=== PATIENT | male | born 1940 | race Caucasian/White ===

== ENCOUNTER → 2017-11-23 08:37 | Outpatient (CLI) | payer MEDICARE, SELFPAY | PROVIDERS: Family Provider Internal Medicine; PCP Internal Medicine; Visit Provider Otolaryngology Otolaryngology/Facial Plastic Surgery | DX: J02.9 Acute pharyngitis, unspecified (principal) | CPT/HCPCS: 87070 ==

== ENCOUNTER → 2017-12-20 09:42 | Outpatient (CLI) | payer MEDICARE, SELFPAY ==
--- NOTE | 2017-12-20 09:47 | RAD_ITS ---
STUDY: X-RAY - CERVICAL SPINE REASON FOR EXAM: Male, 77 years old. Right shoulder pain. Inflammatory polyarthropathy. TECHNIQUE: 5 view(s) of the cervical spine were obtained including oblique views. COMPARISON: None FINDINGS: There are degenerative changes of the anterior atlantoaxial articulation. Normal odontoid process. There is straightening of the normal cervical lordosis. There is multi-level endplate spondylosis. There is multi-level degenerative disc disease with multilevel disc space narrowing. Normal visualized intervertebral neuroforamina. There are atherosclerotic vascular calcifications of the carotid arteries. RAD/Cerv Spine 4 or 5 Views IMPRESSION: Straightening of the normal cervical lordosis. Degenerative changes. Electronically Signed: Erwin Miller MD at 12:46 EDT Tel [phone], Service support ,
[2017-12-20 12:36] LABS: Absolute Lymphocyte Count 1.33 X10^3/ul (0.83-4.51); Absolute Neutrophil Count 3.1 X10^3/uL (2.0-7.7); Basophil# 0.04 X10^3/uL; Basophil% 0.8 % (0-1); Eosinophil# 0.14 X10^3/uL; Eosinophils% 2.7 % (0-5); Hematocrit 48.2 % (40-54); Hemoglobin 16.2 g/dl (13.0-16.5); Lymphocyte # 1.33 X10^3/ul (4.0); Lymphocyte % 25.5 % (19-41); Mean Corp Hgb Conc 33.6 g/gl (32-36); Mean Corpuscular Hgb 28.3 pg (27.0-32.0); Mean Corpuscular Volume 84.1 fL (80-94); Mean Platelet Vol. 10.8 fl (6.2-12.0); Monocyte# 0.57 X10^3/uL; Monocyte% 10.9 % (0-10); Neutrophil # 3.12 X10^3/uL (2.7-7.7); Neutrophil % 59.9 % (47-70); Platelet Count 215 K/mm3 (150-450); RBC Distribution Width SD 42.5 fl (35.1-43.9); Red Blood Count 5.73 M/mm3 (4.6-6.2); White Blood Count 5.2 K/mm3 (4.4-11.0)
[2017-12-20 12:41] LABS: POSITIVE COUNT NO; POSITIVE DIFFERENTIAL NO; POSITIVE MORPHOLOGY NO
[2017-12-20 12:44] LABS: Erythrocyte Sedimentation Rate 8 mm/hr (0-20)
[2017-12-20 13:03] LABS: AST(SGOT) 16 U/L (15-37); Alanine Aminotransfer ALT/SGPT 23 U/L (16-61); Albumin, Serum 3.6 g/dL (3.2-5.0); Alkaline Phosphatase 71 U/L (45-117); Anion Gap 9 (5-15); BUN 23 mg/dL (7-18); CRP < 2.90 mg/L (0.0-3.0); Calcium,Total 8.5 mg/dL (8.5-10.1); Chloride 109 mmol/L (98-107); Creatinine, Serum 1.44 mg/dL (0.70-1.30); EST Glomerular Filtration Rate 51 mL/min (>60); Est Glom Filt Rate - Afr Amer 61 mL/min (>60); Globulin 3.5 g/dL (2.2-4.2); Glucose 78 mg/dL (74-106); PSA,Total- Diagnostic 0.01 ng/mL (0.0-4.0); Potassium 4.4 mmol/L (3.5-5.1); Protein, Total 7.1 g/dL (6.4-8.2); Rheumatoid Factor < 10.0 IU/mL (<15); Sodium Level 142 mmol/L (136-145)
[2017-12-28 14:04] LABS: CCP IgG Antibodies 5 units (0-19); HLA B27 Negative (.)
== END ==
PROVIDERS: Family Provider Internal Medicine; PCP Internal Medicine; Visit Provider Internal Medicine Rheumatology
DX: M06.4 Inflammatory polyarthropathy (principal); M17.0 Bilateral primary osteoarthritis of knee; M47.897 Other spondylosis, lumbosacral region
CPT/HCPCS: 36415; 72050; 80053; 81374; 84153; 85025; 85652; 86140; 86200; 86431

== ENCOUNTER → 2017-12-24 09:12 | Outpatient (CLI) | payer MEDICARE, SELFPAY ==
--- NOTE | 2017-12-24 09:26 | RAD_ITS ---
STUDY: X-RAY - PELVIS REASON FOR EXAM: Male, 77 years old. History of inflammatory polyarthropathy. TECHNIQUE: One view of the pelvis was obtained. COMPARISON: None. FINDINGS: There is a non-specific bowel gas pattern. Metallic radiation seeds are seen within the prostate. Normal bilateral iliac wings, sacroiliac joints and visualized sacrum. Normal visualized bilateral superior and inferior pubic rami. Normal pubic symphysis. Normal ischial tuberosities. Normal visualized right femoral head. Normal right acetabulum. Normal right hip joint. Normal visualized left femoral head. Normal left acetabulum. Normal left hip joint. RAD/Pelvis 1 or 2 Views IMPRESSION: Metallic radiation seeds are seen within the prostate. Electronically Signed: Erwin Miller MD at 15:41 EDT Tel [phone], Service support ,
== END ==
PROVIDERS: Family Provider Internal Medicine; PCP Internal Medicine; Visit Provider Internal Medicine Rheumatology
DX: M06.4 Inflammatory polyarthropathy (principal); M17.0 Bilateral primary osteoarthritis of knee; M47.897 Other spondylosis, lumbosacral region
CPT/HCPCS: 72170

== ENCOUNTER → 2018-03-06 06:47 | Outpatient (CLI) | payer MEDICARE, SELFPAY ==
--- NOTE | 2018-03-06 06:51 | CT_ITS ---
STUDY: CT SOFT TISSUE NECK WITH CONTRAST REASON FOR EXAM: Male, 78 years old. Right pharyngeal pain, dysphagia, hx of tonsillectomy. RADIATION DOSAGE (If Supplied By Facility): CTDIvol = ( 19.44 ) mGy, DLP = ( 660.34 ) mGycm TECHNIQUE: The patient was scanned in a multi-detector CT scanner. High resolution transaxial imaging was performed following intravenous administration of 100 ml of Isovue 300 contrast material. Sagittal and coronal images were reconstructed. Individualized dose optimization techniques were used for this CT. COMPARISON: None. FINDINGS: Normal bilateral parotid glands. Normal bilateral supervisor of operations spaces. Normal bilateral parapharyngeal spaces. Normal bilateral carotid spaces. Normal bilateral sublingual and submandibular glands and spaces. Normal visualized nasopharynx. Normal retropharyngeal space. Normal perivertebral space. Normal visualized bilateral faucial tonsils. The visualized tongue, tongue base and oropharynx are normal. The visualized cervical lymph nodes (levels I-) are within normal size limits, and maintain normal morphology. There is no demonstrated solid or cystic mass lesion. There is no abnormal contrast enhancement. Normal epiglottis, bilateral vallecula and hypopharynx. The pre-epiglottic and paraglottic adipose spaces are normal. Normal visualized bilateral piriform sinuses, aryepiglottic folds, vocal cords, and arytenoid-cricoid articulations. Normal subglottic trachea. There is a 2.6 cm nodule within the right thyroid. Normal visualized pulmonary apices. Normal visualized paranasal sinuses. There is multilevel degenerative changes of the cervical spine. CT/Soft Tissue Neck WITH Contrast IMPRESSION: 2.6 cm right thyroid nodule. Further evaluation with sonography can be obtained. Otherwise no masses or lymphadenopathy. Electronically Signed: Otilio Leach MD at 12:21 EDT Tel , Service support ,
[2018-03-06 07:06] LABS: CREATININE FINGERSTICK 1.1 mg/dL (0.70-1.30); EGFR FINGERSTICK > 60.0000 mL/min (>60)
== END ==
PROVIDERS: Family Provider Internal Medicine; PCP Internal Medicine; Visit Provider Otolaryngology Otolaryngology/Facial Plastic Surgery
DX: R07.0 Pain in throat (principal); R13.10 Dysphagia, unspecified
CPT/HCPCS: 70491; Q9967

== ENCOUNTER → 2018-04-02 07:41 | Outpatient (CLI) | payer MEDICARE, SELFPAY | PROVIDERS: Family Provider Internal Medicine; PCP Internal Medicine; Visit Provider Otolaryngology Otolaryngology/Facial Plastic Surgery | DX: E04.1 Nontoxic single thyroid nodule (principal) | CPT/HCPCS: 76536 ==

== ENCOUNTER → 2018-10-09 13:40 | Outpatient (CLI) | payer MEDICARE, SELFPAY ==
--- NOTE | 2018-10-09 13:45 | RAD_ITS ---
STUDY: X-RAY - ABDOMEN/PELVIS REASON FOR EXAM: Male, 78 years old. Bowel habit changes TECHNIQUE: 4 AP views COMPARISON: None. FINDINGS: Normal visualized lung bases. Previous cholecystectomy There is an unremarkable bowel gas pattern. There is no demonstrated free abdominal air. The visualized liver, spleen and kidneys are grossly normal in size and morphology. Normal soft tissue structures. Normal visualized osseous structures. Brachytherapy beads noted in the prostate RAD/Abd Inc Decub and/or Erect IMPRESSION: No acute findings Electronically Signed: Juventino Martin MD at 17:29 EDT , Service support ,
== END ==
PROVIDERS: Family Provider Internal Medicine; PCP Internal Medicine; Visit Provider Internal Medicine
DX: R19.8 Other specified symptoms and signs involving the digestive system and abdomen (principal)
CPT/HCPCS: 74019

== ENCOUNTER → 2018-10-10 14:40 | Outpatient (CLI) | payer MEDICARE, SELFPAY ==
--- NOTE | 2018-10-10 15:01 | CT_ITS ---
STUDY: CT ABDOMEN AND PELVIS WITH CONTRAST REASON FOR EXAM: Male, 78 years old. Left lower quadrant pain. Prostate cancer. RADIATION DOSAGE (If Supplied By Facility): CTDIvol = ( 17.88 ) mGy, DLP = ( 1157.44 ) mGycm TECHNIQUE: Transaxial images were obtained from the dome of the diaphragm to the symphysis pubis without oral contrast. Isovue 300 100cc IV/Oral was administered. Sagittal and coronal images were reconstructed. Individualized dose optimization techniques were used for this CT. COMPARISON: 06/07/2006. FINDINGS: The visualized lung bases are unremarkable. The visualized portions of the heart are within normal limits. Normal shape and size of the liver. There is an enhancing 2.9 cm mass in the anterior segment of the right lobe most consistent with hemangioma. There are surgical clips in the gallbladder fossa consistent with a prior cholecystectomy. Normal spleen. Normal pancreas. Normal bilateral adrenal glands. No acute abnormalities of the kidneys. Stable left-sided parapelvic cysts. No stones. Symmetric contrast enhancement. No hydronephrosis. Evaluation of the GI tract is limited by absence of oral contrast. There is a small hiatal hernia. Cannot exclude stomach wall thickening. No dilated loops of bowel or evidence for obstruction. Cannot exclude segmental thickening of the wang of the small or large bowel. Cannot exclude enteritis or colitis. Moderate diffuse fecal retention. There is acute mid sigmoid diverticulitis, and there appears to be localized perforation and possible developing 2.8 cm abscess along the medial aspect of the sigmoid colon as seen on axial image 90 and coronal image 62. Appendix is absent. Tortuous aorta without aneurysm. Normal inferior vena cava. Normal retroperitoneum. Normal urinary bladder. 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 Bilateral small to moderate inguinal hernias are seen. These appear to have been previously repaired and have recurred. There are diffuse degenerative changes of the visualized lumbar spine. CT/Abdomen/Pelvis WITH Contrast IMPRESSION: Acute mid sigmoid diverticulitis with probable localized perforation and developing abscess. Electronically Signed: Manuel Penny MD at 18:38 EDT , Service support ,
[2018-10-10 17:16] LABS: CREATININE FINGERSTICK 1.4 mg/dL (0.70-1.30)
== END ==
PROVIDERS: Family Provider Internal Medicine; PCP Internal Medicine; Referring Provider Internal Medicine; Visit Provider Internal Medicine
DX: R10.84 Generalized abdominal pain (principal)
CPT/HCPCS: 74177; Q9967

== ENCOUNTER 2018-10-10 21:48 | Inpatient (IN) | payer MEDICARE, SELFPAY ==
[2018-10-10 21:49] VITALS: BP 182/90; PULSE 66; RESP 18; TEMP 36.4; O2SAT 96; BMI 31.4
--- NOTE | 2018-10-10 22:04 | EKG12_ITS ---
Test Reason : ABD PAIN Blood Pressure : / mmHG Vent. Rate : 066 BPM Atrial Rate : 066 BPM P-R Int : 186 ms QRS Dur : 094 ms QT Int : 416 ms P-R-T Axes : 041 004 064 degrees QTc Int : 436 ms Normal sinus rhythm Cannot rule out Inferior infarct , age undetermined Abnormal ECG Confirmed by TERRI ENGLAND ([id number]), editorial director GOLDEN RUGGIERO ([id number]) on 10/13/2018 4:34:06 PM Referred By: RENUKA Confirmed By:TERRI ENGLAND
[2018-10-10 22:17] VITALS: BP 159/81; PULSE 64; RESP 16; O2SAT 98
[2018-10-10 22:37] LABS: Absolute Lymphocyte Count 1.87 X10^3/ul (0.83-4.51); Basophil# 0.04 X10^3/uL; Basophil% 0.4 % (0-1); Eosinophil# 0.16 X10^3/uL; Eosinophils% 1.8 % (0-5); Hemoglobin 15.8 g/dl (13.0-16.5); Lymphocyte # 1.87 X10^3/ul (4.0); Lymphocyte % 20.6 % (19-41); Mean Corp Hgb Conc 33.6 g/gl (32-36); Mean Corpuscular Hgb 29.5 pg (27.0-32.0); Mean Corpuscular Volume 87.7 fL (80-94); Mean Platelet Vol. 10.1 fl (6.2-12.0); Monocyte# 1.05 X10^3/uL; Monocyte% 11.6 % (0-10); Neutrophil # 5.95 X10^3/uL (2.7-7.7); Neutrophil % 65.4 % (47-70); Platelet Count 187 K/mm3 (150-450); RBC Distribution Width CV 12.9 % (11.6-14.6); RBC Distribution Width SD 41.2 fl (35.1-43.9); Red Blood Count 5.36 M/mm3 (4.6-6.2); White Blood Count 9.1 K/mm3 (4.4-11.0)
[2018-10-10 22:38] LABS: POSITIVE COUNT NO; POSITIVE DIFFERENTIAL NO; POSITIVE MORPHOLOGY NO
[2018-10-10] MEDS: 0.9% Normal Saline 1,000 ML 1000 ML IV (22:42)
[2018-10-10 22:50] LABS: Anion Gap 5 (5-15); BUN 16 mg/dL (7-18); BUN/Creat Ratio 10.7 RATIO (10-20); Calcium,Total 8.2 mg/dL (8.5-10.1); Chloride 107 mmol/L (98-107); EST Glomerular Filtration Rate 48 mL/min (>60); Est Glom Filt Rate - Afr Amer 58 mL/min (>60); Estimated Creatinine Clearance 43.93 ml/min; Glucose 107 mg/dL (74-106); Sodium Level 138 mmol/L (136-145)
[2018-10-10 23:01] VITALS: BP 142/63; PULSE 59; RESP 18; O2SAT 98
[2018-10-10 23:03] VITALS: BP 146/83; PULSE 60; RESP 18; TEMP 37.3; O2SAT 96
--- NOTE | 2018-10-10 23:12 | ED.VIS.GEN ---
History of Present Illness Chief Complaint: Abd Pain Detail of Chief Complaint: CAT scan reveals diverticulitis, focal perforation and abscess formation Informant: Patient, Family Onset: Weeks - Onset of symptoms 3 weeks ago Context: Sudden Onset Timing: Continuous Quality: Left lower quadrant pain varies in quality and intensity Location: LLQ Current Severity: Mild Maximum Severity: Moderate Worsened by: Movement, walking Relieved by: Nothing in particular Associated Symptoms: Fever today and possible chills Narrative: Patient was seen by Dr. Jazlyn Richard had an outpatient CAT scan of the abdomen which reveals acute diverticulitis with focal perforation and formation of abscess. Patient denies history of diverticulosis or diverticulitis. Patient denies history of constipation. He denies any urologic symptoms. He denies cardiac respiratory symptoms. He reports no antibiotic allergies. CT of the abdomen and pelvis performed at [facility] and final interpretation is acute mid sigmoid diverticulitis with probable localized perforation and developing abscess. The developing abscess is 2.8 cm along the medial aspect of the sigmoid colon seen on axial image 90 and coronal image 62. The appendix is absent. Past Medical History - Allergies and Home Meds Allergies/Adverse Reactions: Allergies No Known Allergies Allergy (Verified 10/10/18 21:51) Primary Care Physician: Jazlyn Richard DO [Primary Care Provider] - Prior records reviewed: Yes Surgical History: no surgical history Lives: Spouse/ Significant Other Smoking Status: Former smoker Alcohol: Rare Review of Systems General: Reports: Chills, Fever, Subjective. Denies: Sweats, Weight loss Eyes: Denies: Visual changes - bilaterally, Blurred Vision - bilaterally, Diplopia ENT: Denies: Bilateral ear pain, Rhinorrhea, Sore throat Cardiovascular: Denies: Chest pain, Palpitations, Heart racing Respiratory: Reports: Paroxysmal nocturnal dyspnea. Denies: Dyspnea, Cough, Dyspnea on exertion, Orthopnea Gastrointestinal: Reports: Abdominal pain - Predominately left lower quadrant, Nausea. Denies: Vomiting, Diarrhea, Constipation, Melena Genitourinary: Denies: Dysuria, Hematuria, Frequency Musculoskeletal: Denies: Myalgias, Arthralgias, Back pain, Extremity Pain Neurological: Denies: Headache, Weakness, Numbness Endocrine: Denies: Polyuria, Polydipsia Hematologic: Denies: Easy bruising, Easy bleeding Physical Exam Vital Signs/Narrative: Vital Signs Temp Pulse Resp BP Pulse Ox 10/10/18 23:03 99.2 F H 60 18 146/83 H 96 10/10/18 23:01 59 L 18 142/63 H 98 10/10/18 22:17 64 16 159/81 H 98 10/10/18 21:49 97.6 F L 66 18 182/90 H 96 Inital Vital Signs reviewed: Yes General: Well nourished, Well developed, Obese, No Acute Distress Head: Normocephalic, Atraumatic Eyes: Perrl, EOMI. Negative for: Pale conjunctiva, Scleral icterus ENT: Moist mucous membranes, No rhinorrhea Neck: Supple, Nontender. Negative for: No lymphadenopathy, No JVD Cardiovascular: Regular rate, Regular rhythm, No murmurs, Normal S1, Normal S2 Respiratory: No distress, CTA bilaterally, Chest nontender, Decreased Air Movement Abdomen: Soft, Nontender, Nondistended, Normal bowel sounds, No masses Rectal: Deferred Back: Nontender, Normal Inspection Extremities: Nontender, No edema Skin: Normal color, No rash. Negative for: Cyanosis, Jaundice Neurological: Alert, Oriented x3, Cranial nerves II-XII grossly intact, Normal Strength, Normal Sensation, Normal Gait Psychological: Normal affect, Normal Mood Diagnostic/Tx/Re-eval Laboratory Results 10/10/18 10/10/18 22:30 22:30 WBC 9.1 RBC 5.36 Hgb 15.8 Hct 47.0 MCV 87.7 MCH 29.5 MCHC 33.6 RDW 12.9 RDW Differential 41.2 Plt Count 187 MPV 10.1 Immature Gran % (Auto) 0.200 Neut % (Auto) 65.4 Lymph % (Auto) 20.6 Elbert % (Auto) 11.6 H Eos % (Auto) 1.8 Baso % (Auto) 0.4 Absolute Neuts (auto) 6.0 Absolute Lymphs (auto) 1.87 Total Counted Not Reportable Sodium 138 Potassium 4.0 Chloride 107 Carbon Dioxide 26.0 Anion Gap 5 BUN 16 Creatinine 1.50 H Estim Creat Clear Calc 43.93 Est GFR (MDRD) Af Amer 58 L Est GFR (MDRD) Non-Af 48 L BUN/Creatinine Ratio 10.7 Glucose 107 H Calcium 8.2 L - Medical Decision Making After performing history and physical reviewing CT report and images patient was started on IV Zosyn since he has no allergies to antibiotics. Baseline blood work was obtained. He was made n.p.o. Case was discussed with Dr. Sarah Hsu. She requested admission to surgery since there is perforation. Family requested Dr. Anand Lundberg. Dr. Martin LESLIE was paged since she is on-call for the group. Patient will require admission for IV antibiotics. Dr. Sarah Hsu states she would help with orders if needed. ED Disposition - Plan for ED Patient: Disposition: Acute Care [facility] Diagnosis: Perforation of sigmoid colon due to diverticulitis Referrals: Jazlyn Richard DO [Primary Care Provider] -
--- NOTE | 2018-10-11 00:27 | PCM.HP.STD ---
History of Present Illness Date of Admission: 10/11/18 The patient is a 78 year old M presents the ER secondary to CT abdomen pelvis was done as an outpatient which showed sigmoid abscess about 2 cm due to diverticulitis. Patient states for about the last 3 weeks he has had abdominal pain, generalized occasionally he would have waves of sharp pain as 7/10. However no sharp pain today and states it was 5/10 and continues to be about the same. Patient denies any nausea and vomiting during this time. States she has had 2 bowel movements today which were soft. Patient states she has had a colonoscopy about 10 years ago which was negative per the patient done at [facility]. Denies any history of diverticular colitis in the past. Denies any fevers. 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 Surgical History: cholecystectomy, herniorrhaphy - RIH x 2 open, tonsillectomy, - - cardiac stent 10 years ago, colonoscopy about 10 years ago, seeds for prostate cancer, left achilles repair, nasal septum repair Psychiatric History: No pertinent psych hx Lives: Spouse/ Significant Other Smoking Status: Former smoker Alcohol: Rare - *Family History Maternal History Items: No pertinent history Review of Systems Constitutional: Denies: Chills HEENT: Denies: Difficulty Swallowing Cardiovascular: Denies: Chest Pain Respiratory: Reports: Shortness of Breath Gastrointestinal: Reports: Abdominal Pain Genitourinary: Denies: Dysuria Skin: Denies: Jaundice Neurological: Denies: Balance problems Psychiatric: Reports: Anxiety, Depression Hematologic/ Lymphatic: Reports: Easy Bruising, Easy Bleeding VTE Information - Inpt Only VTE Present on Admission: Yes VTE Mechan Device Prophylaxis: SCD's Patient Problems: Active and Suspected Problems Perforation of sigmoid colon due to diverticulitis (Acute) - Physical Exam General: Alert, Oriented x3, Cooperative, No apparent distress HEENT: Atraumatic Lungs: Normal air movement Cardiovascular: Regular rate Abdomen: Soft, Non-Distended, Tender - RUQ<RLQ<LLQ, no PS Extremities: No clubbing, No cyanosis, No edema Skin: No rashes Neurological: Cranial nerves II-XII grossly intact Psych/Mental Status: Normal Affect Vital Signs Temp Pulse Resp BP Pulse Ox 99.2 F H 60 18 146/83 H 96 10/10/18 23:03 10/10/18 23:03 10/10/18 23:03 10/10/18 23:03 10/10/18 23:03 Oxygen Delivery Method Room Air Weight: 225 lb 1.471 oz Body Mass Index (BMI) 31.4 Laboratory Tests Past 24 Hrs 10/10/18 10/10/18 22:30 22:30 WBC 9.1 RBC 5.36 Hgb 15.8 Hct 47.0 MCV 87.7 MCH 29.5 MCHC 33.6 RDW 12.9 RDW Differential 41.2 Plt Count 187 MPV 10.1 Immature Gran % (Auto) 0.200 Neut % (Auto) 65.4 Lymph % (Auto) 20.6 [place] % (Auto) 11.6 H Eos % (Auto) 1.8 Baso % (Auto) 0.4 Absolute Neuts (auto) 6.0 Absolute Lymphs (auto) 1.87 Total Counted Not Reportable Sodium 138 Potassium 4.0 Chloride 107 Carbon Dioxide 26.0 Anion Gap 5 BUN 16 Creatinine 1.50 H Estim Creat Clear Calc 43.93 Est GFR (MDRD) Af Amer 58 L Est GFR (MDRD) Non-Af 48 L BUN/Creatinine Ratio 10.7 Glucose 107 H Calcium 8.2 L Assessment/Plan All Active Problems Perforation of sigmoid colon due to diverticulitis (Acute) 78-year-old male with perforated diverticulitis with small abscess 1. N.p.o./IV fluids. We will plan to treat conservatively currently. Did discuss with patient that if his pain gets worse or increased white blood cell count which is currently normal, we would discuss surgery at that time. We also plan for a CAT scan in another few days to evaluate the abscess. 2. Continue Zosyn IV 3. Pain control Aria Guevara M.D. Pager: [phone] [facility] [address] [place] [address] [facility], [address] [place] [address] Office: [phone] Code Visit Inpatient E&M: 75006 Init Hosp L2
--- NOTE | 2018-10-11 00:30 | HP.PCM_ITS ---
History of Present Illness Date of Admission: 10/11/18 The patient is a 78 year old M presents the ER secondary to CT abdomen pelvis was done as an outpatient which showed sigmoid abscess about 2 cm due to diverticulitis. Patient states for about the last 3 weeks he has had abdominal pain, generalized occasionally he would have waves of sharp pain as 7/10. However no sharp pain today and states it was 5/10 and continues to be about the same. Patient denies any nausea and vomiting during this time. States she has had 2 bowel movements today which were soft. Patient states she has had a colonoscopy about 10 years ago which was negative per the patient done at [facility]. Denies any history of diverticular colitis in the past. Denies any fevers. 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 Surgical History: cholecystectomy, herniorrhaphy - RIH x 2 open, tonsillectomy, - - cardiac stent 10 years ago, colonoscopy about 10 years ago, seeds for prostate cancer, left achilles repair, nasal septum repair Psychiatric History: No pertinent psych hx Lives: Spouse/ Significant Other Smoking Status: Former smoker Alcohol: Rare - *Family History Maternal History Items: No pertinent history Review of Systems Constitutional: Denies: Chills HEENT: Denies: Difficulty Swallowing Cardiovascular: Denies: Chest Pain Respiratory: Reports: Shortness of Breath Gastrointestinal: Reports: Abdominal Pain Genitourinary: Denies: Dysuria Skin: Denies: Jaundice Neurological: Denies: Balance problems Psychiatric: Reports: Anxiety, Depression Hematologic/ Lymphatic: Reports: Easy Bruising, Easy Bleeding VTE Information - Inpt Only VTE Present on Admission: Yes VTE Mechan Device Prophylaxis: SCD's Patient Problems: Active and Suspected Problems Perforation of sigmoid colon due to diverticulitis (Acute) - Physical Exam General: Alert, Oriented x3, Cooperative, No apparent distress HEENT: Atraumatic Lungs: Normal air movement Cardiovascular: Regular rate Abdomen: Soft, Non-Distended, Tender - RUQ<RLQ<LLQ, no PS Extremities: No clubbing, No cyanosis, No edema Skin: No rashes Neurological: Cranial nerves II-XII grossly intact Psych/Mental Status: Normal Affect Vital Signs Temp Pulse Resp BP Pulse Ox 99.2 F H 60 18 146/83 H 96 10/10/18 23:03 10/10/18 23:03 10/10/18 23:03 10/10/18 23:03 10/10/18 23:03 Oxygen Delivery Method Room Air Weight: 225 lb 1.471 oz Body Mass Index (BMI) 31.4 Laboratory Tests Past 24 Hrs 10/10/18 10/10/18 22:30 22:30 WBC 9.1 RBC 5.36 Hgb 15.8 Hct 47.0 MCV 87.7 MCH 29.5 MCHC 33.6 RDW 12.9 RDW Differential 41.2 Plt Count 187 MPV 10.1 Immature Gran % (Auto) 0.200 Neut % (Auto) 65.4 Lymph % (Auto) 20.6 Sevier % (Auto) 11.6 H Eos % (Auto) 1.8 Baso % (Auto) 0.4 Absolute Neuts (auto) 6.0 Absolute Lymphs (auto) 1.87 Total Counted Not Reportable Sodium 138 Potassium 4.0 Chloride 107 Carbon Dioxide 26.0 Anion Gap 5 BUN 16 Creatinine 1.50 H Estim Creat Clear Calc 43.93 Est GFR (MDRD) Af Amer 58 L Est GFR (MDRD) Non-Af 48 L BUN/Creatinine Ratio 10.7 Glucose 107 H Calcium 8.2 L Assessment/Plan All Active Problems Perforation of sigmoid colon due to diverticulitis (Acute) 78-year-old male with perforated diverticulitis with small abscess 1. N.p.o./IV fluids. We will plan to treat conservatively currently. Did discuss with patient that if his pain gets worse or increased white blood cell count which is currently normal, we would discuss surgery at that time. We also plan for a CAT scan in another few days to evaluate the abscess. 2. Continue Zosyn IV 3. Pain control Aria Guevara M.D. Pager: [phone] [facility] [address] [address] [facility], [address] [place] [address] Office: [phone] Code Visit Inpatient E&M: 45324 Init Hosp L2
[2018-10-11 00:39] VITALS: BP 147/79; PULSE 57; RESP 16; RESP 17; TEMP 37.1; O2SAT 98
[2018-10-11 01:17] VITALS: BMI 31.0
[2018-10-11 01:50] VITALS: BP 140/72; PULSE 55; RESP 18; TEMP 36.8; O2SAT 98
[2018-10-11] MEDS: Lactated Ringers 1,000 ML 125 ML IV ×2 (01:56→17:46)
[2018-10-11 02:26] LABS: Bacteria 0 SEEN /hpf (None Seen); Mucous, Urine 0 SEEN /hpf (<or=2+); Red Blood Cells-Urine 0 SEEN /hpf (0-5); White Blood Cells 0 SEEN /hpf (0-5)
[2018-10-11 02:34] LABS: Color, Urine Straw (Yellow); Glucose, Dipstick Normal (Normal); Ketone-Dipstick Negative (Negative); Leukocyte Esterase-Dipstick Negative /ul (Negative); Nitrite-Dipstick Negative (Negative); Occult Blood-Urine Negative /ul (Negative); Protein-Dipstick Negative (Negative); Urine Bilirubin Dipstick Negative (Negative); Urine Clarity Clear (Clear); Urine Urobilinogen Normal (Normal)
[2018-10-11 02:40] LABS: Squamous Epithelial Cells - UA 0-5 SEEN /hpf (0-5)
[2018-10-11] MEDS: Piperacil/Tazobactam 3.375 GM/50 ML ML IV (05:56)
[2018-10-11 08:00] VITALS: BP 121/72; PULSE 55; RESP 16; TEMP 36.6; O2SAT 97
[2018-10-11 08:08] LABS: Absolute Lymphocyte Count 1.75 X10^3/ul (0.83-4.51); Absolute Neutrophil Count 5.1 X10^3/uL (2.0-7.7); Basophil# 0.03 X10^3/uL; Basophil% 0.4 % (0-1); Eosinophil# 0.16 X10^3/uL; Hematocrit 42.8 % (40-54); Hemoglobin 14.1 g/dl (13.0-16.5); Lymphocyte # 1.75 X10^3/ul (4.0); Lymphocyte % 21.9 % (19-41); Mean Corp Hgb Conc 32.9 g/gl (32-36); Mean Corpuscular Volume 88.1 fL (80-94); Mean Platelet Vol. 10.3 fl (6.2-12.0); Monocyte# 0.96 X10^3/uL; Neutrophil # 5.07 X10^3/uL (2.7-7.7); Neutrophil % 63.4 % (47-70); Platelet Count 192 K/mm3 (150-450); RBC Distribution Width CV 12.8 % (11.6-14.6); RBC Distribution Width SD 41.1 fl (35.1-43.9); Red Blood Count 4.86 M/mm3 (4.6-6.2)
[2018-10-11 08:11] LABS: POSITIVE COUNT NO; POSITIVE DIFFERENTIAL NO; POSITIVE MORPHOLOGY NO
[2018-10-11 08:38] LABS: Anion Gap 5 (5-15); BUN 14 mg/dL (7-18); BUN/Creat Ratio 9.1 RATIO (10-20); Calcium,Total 7.7 mg/dL (8.5-10.1); Chloride 110 mmol/L (98-107); Creatinine, Serum 1.54 mg/dL (0.70-1.30); EST Glomerular Filtration Rate 47 mL/min (>60); Est Glom Filt Rate - Afr Amer 57 mL/min (>60); Estimated Creatinine Clearance 42.78 ml/min; Glucose 91 mg/dL (74-106); Potassium 4.6 mmol/L (3.5-5.1); Sodium Level 142 mmol/L (136-145)
[2018-10-11] MEDS: Lactated Ringers 1,000 ML 999 ML IV (09:57)
--- NOTE | 2018-10-11 10:02 | PCM.PN.SRG ---
Patient Problems: Active and Suspected Problems Perforation of sigmoid colon due to diverticulitis (Acute) Subjective: Patient states pain has improved states it is only 1-2/10, has not used any pain meds. - Physical Exam General: Alert, Oriented x3, Cooperative, No apparent distress HEENT: Atraumatic Lungs: Normal air movement Cardiovascular: Regular rate Abdomen: Soft, Non-Distended, Tender - RLQ<LLQ, no PS Vital Signs Temp Pulse Resp BP Pulse Ox 98.3 F 55 L 18 140/72 H 98 10/11/18 01:50 10/11/18 01:50 10/11/18 01:50 10/11/18 01:50 10/11/18 01:50 Oxygen Delivery Method Room Air Weight: 222 lb 5 oz Body Mass Index (BMI) 31.0 Intake and Output for Last 24 Hours 10/09/18 10/10/18 10/11/18 23:59 23:59 23:59 Intake Total 625 / 625 Balance 625 / 625 Laboratory Tests Past 24 Hrs 10/10/18 10/10/18 10/11/18 22:30 22:30 02:15 WBC 9.1 RBC 5.36 Hgb 15.8 Hct 47.0 MCV 87.7 MCH 29.5 MCHC 33.6 RDW 12.9 RDW Differential 41.2 Plt Count 187 MPV 10.1 Immature Gran % (Auto) 0.200 Neut % (Auto) 65.4 Lymph % (Auto) 20.6 Saunders % (Auto) 11.6 H Eos % (Auto) 1.8 Baso % (Auto) 0.4 Absolute Neuts (auto) 6.0 Absolute Lymphs (auto) 1.87 Total Counted Not Reportable Sodium 138 Potassium 4.0 Chloride 107 Carbon Dioxide 26.0 Anion Gap 5 BUN 16 Creatinine 1.50 H Estim Creat Clear Calc 43.93 Est GFR (MDRD) Af Amer 58 L Est GFR (MDRD) Non-Af 48 L BUN/Creatinine Ratio 10.7 Glucose 107 H Calcium 8.2 L Urine Color Straw Urine Clarity Clear Urine pH 7.0 Ur Specific [place] 1.010 Urine Protein Negative Urine Glucose (UA) Normal Urine Ketones Negative Urine Occult Blood Negative Urine Nitrite Negative Urine Bilirubin Negative Urine Urobilinogen Normal Ur Leukocyte Esterase Negative Urine RBC 0 SEEN Urine WBC 0 SEEN Ur Squamous Epith Cells 0-5 SEEN Urine Bacteria 0 SEEN Urine Mucus 0 SEEN 03/16/19 03/16/19 07:25 07:25 WBC 8.0 RBC 4.86 Hgb 14.1 Hct 42.8 MCV 88.1 MCH 29.0 MCHC 32.9 RDW 12.8 RDW Differential 41.1 Plt Count 192 MPV 10.3 Immature Gran % (Auto) 0.300 Neut % (Auto) 63.4 Lymph % (Auto) 21.9 Saunders % (Auto) 12.0 H Eos % (Auto) 2.0 Baso % (Auto) 0.4 Absolute Neuts (auto) 5.1 Absolute Lymphs (auto) 1.75 Total Counted Not Reportable Sodium 142 Potassium 4.6 Chloride 110 H Carbon Dioxide 27.0 Anion Gap 5 BUN 14 Creatinine 1.54 H Estim Creat Clear Calc 42.78 Est GFR (MDRD) Af Amer 57 L Est GFR (MDRD) Non-Af 47 L BUN/Creatinine Ratio 9.1 L Glucose 91 Calcium 7.7 L Urine Color Urine Clarity Urine pH Ur Specific [place] Urine Protein Urine Glucose (UA) Urine Ketones Urine Occult Blood Urine Nitrite Urine Bilirubin Urine Urobilinogen Ur Leukocyte Esterase Urine RBC Urine WBC Ur Squamous Epith Cells Urine Bacteria Urine Mucus Medical Necessity - Tobacco Use Smoking Status: Former smoker Assessment/Plan All Active Problems Perforation of sigmoid colon due to diverticulitis (Acute) 78-year-old male with perforated diverticulitis with small abscess 1. N.p.o./IV fluids. We also plan for a CAT scan in another few days to evaluate the abscess-probably on Saturday. 2. Continue Zosyn IV 3. Pain control 4. elevated Cr- 1 liter bolus given Aria Guevara M.D. Pager: [phone] [facility] [address] [place] [address], [facility], [address] [place] [address] Office: [phone]
--- NOTE | 2018-10-11 10:05 | PN.SURG_ITS ---
Patient Problems: Active and Suspected Problems Perforation of sigmoid colon due to diverticulitis (Acute) Subjective: Patient states pain has improved states it is only 1-2/10, has not used any pain meds. - Physical Exam General: Alert, Oriented x3, Cooperative, No apparent distress HEENT: Atraumatic Lungs: Normal air movement Cardiovascular: Regular rate Abdomen: Soft, Non-Distended, Tender - RLQ<LLQ, no PS Vital Signs Temp Pulse Resp BP Pulse Ox 98.3 F 55 L 18 140/72 H 98 10/11/18 01:50 10/11/18 01:50 10/11/18 01:50 10/11/18 01:50 10/11/18 01:50 Oxygen Delivery Method Room Air Weight: 222 lb 5 oz Body Mass Index (BMI) 31.0 Intake and Output for Last 24 Hours 10/09/18 10/10/18 10/11/18 23:59 23:59 23:59 Intake Total 625 / 625 Balance 625 / 625 Laboratory Tests Past 24 Hrs 10/10/18 10/10/18 10/11/18 22:30 22:30 02:15 WBC 9.1 RBC 5.36 Hgb 15.8 Hct 47.0 MCV 87.7 MCH 29.5 MCHC 33.6 RDW 12.9 RDW Differential 41.2 Plt Count 187 MPV 10.1 Immature Gran % (Auto) 0.200 Neut % (Auto) 65.4 Lymph % (Auto) 20.6 [place] % (Auto) 11.6 H Eos % (Auto) 1.8 Baso % (Auto) 0.4 Absolute Neuts (auto) 6.0 Absolute Lymphs (auto) 1.87 Total Counted Not Reportable Sodium 138 Potassium 4.0 Chloride 107 Carbon Dioxide 26.0 Anion Gap 5 BUN 16 Creatinine 1.50 H Estim Creat Clear Calc 43.93 Est GFR (MDRD) Af Amer 58 L Est GFR (MDRD) Non-Af 48 L BUN/Creatinine Ratio 10.7 Glucose 107 H Calcium 8.2 L Urine Color Straw Urine Clarity Clear Urine pH 7.0 Ur Specific [place] 1.010 Urine Protein Negative Urine Glucose (UA) Normal Urine Ketones Negative Urine Occult Blood Negative Urine Nitrite Negative Urine Bilirubin Negative Urine Urobilinogen Normal Ur Leukocyte Esterase Negative Urine RBC 0 SEEN Urine WBC 0 SEEN Ur Squamous Epith Cells 0-5 SEEN Urine Bacteria 0 SEEN Urine Mucus 0 SEEN 03/16/19 03/16/19 07:25 07:25 WBC 8.0 RBC 4.86 Hgb 14.1 Hct 42.8 MCV 88.1 MCH 29.0 MCHC 32.9 RDW 12.8 RDW Differential 41.1 Plt Count 192 MPV 10.3 Immature Gran % (Auto) 0.300 Neut % (Auto) 63.4 Lymph % (Auto) 21.9 [place] % (Auto) 12.0 H Eos % (Auto) 2.0 Baso % (Auto) 0.4 Absolute Neuts (auto) 5.1 Absolute Lymphs (auto) 1.75 Total Counted Not Reportable Sodium 142 Potassium 4.6 Chloride 110 H Carbon Dioxide 27.0 Anion Gap 5 BUN 14 Creatinine 1.54 H Estim Creat Clear Calc 42.78 Est GFR (MDRD) Af Amer 57 L Est GFR (MDRD) Non-Af 47 L BUN/Creatinine Ratio 9.1 L Glucose 91 Calcium 7.7 L Urine Color Urine Clarity Urine pH Ur Specific [place] Urine Protein Urine Glucose (UA) Urine Ketones Urine Occult Blood Urine Nitrite Urine Bilirubin Urine Urobilinogen Ur Leukocyte Esterase Urine RBC Urine WBC Ur Squamous Epith Cells Urine Bacteria Urine Mucus Medical Necessity - Tobacco Use Smoking Status: Former smoker Assessment/Plan All Active Problems Perforation of sigmoid colon due to diverticulitis (Acute) 78-year-old male with perforated diverticulitis with small abscess 1. N.p.o./IV fluids. We also plan for a CAT scan in another few days to evaluate the abscess-probably on Saturday. 2. Continue Zosyn IV 3. Pain control 4. elevated Cr- 1 liter bolus given Aria uGevara M.D. Pager: [phone] [facility] [address] [place] [address], Outpatient Pavilion, [address] [place] [address] Office: [phone]
[2018-10-11] MEDS: Lactated Ringers 1,000 ML 150 ML IV (11:28)
--- NOTE | 2018-10-11 11:43 | CM.UR ---
RN CM Assessment Met face to face with patient for initial transition planning/care coordination assessment. Introduced myself and my role. Verb understanding and agreement for assessment. present. Presentation: Was sent to ER after having OP CT scan which showed acute diverticulitis w/perforation. PCP: Dr. Richard Specialists: Derm: Dr. Raulito Dudley; [facility] Consultant: Dr. Key. Preferred Pharmacy: [facility] Insurance: [facility] Prescription Benefit: Yes, ok paying copays. LNOK: Ruth Perales, Home: Lives in a barn. Remodeled with three floors. First floor is garage and work shop. All living area is on first floor. If goes in front door--has 12-13 steps to go up. If goes in back only 4 steps right to first floor. ADLs: Independent. No problems with the stairs. Transportation: self DME: Walker and shower seat. Had grab bar that came off of wall and they decided to not put it back up. Denies need for any other equipment at this time. Prefers [facility]. Passport/waiver clinic mgr: none Advance Directives: States has bpth living will and DPOA. , Ruth, is DPOA. Explained not on file and asked her to bring copy in later. Verb understanding and agreement. DC PLAN: Home, no needs anticipated at this time. Patient and instructed CM will remain available should any needs arise. Angela Mejia RN, CCM.
[2018-10-11 14:00] VITALS: BP 147/87; PULSE 49; RESP 16; TEMP 36.5; O2SAT 99
[2018-10-11] MEDS: Enoxaparin 40 MG/0.4 ML Syringe SC (14:16)
[2018-10-11 20:00] VITALS: BP 140/89; PULSE 61; RESP 15; TEMP 36.7; O2SAT 95
[2018-10-11] MEDS: Lactated Ringers 1,000 ML 100 ML IV (21:50)
[2018-10-12] MEDS: Lactated Ringers 1,000 ML 100 ML IV (01:49)
[2018-10-12 01:52] VITALS: BP 136/81; PULSE 57; RESP 15; TEMP 36.6; O2SAT 97
[2018-10-12 02:00] VITALS: RESP 15; O2SAT 93
[2018-10-12 07:26] LABS: Absolute Neutrophil Count 2.9 X10^3/uL (2.0-7.7); Basophil# 0.03 X10^3/uL; Basophil% 0.6 % (0-1); Differential Indicated SCAN CRITERIA MET; Eosinophil# 0.17 X10^3/uL; Eosinophils% 3.3 % (0-5); Hematocrit 42.1 % (40-54); Lymphocyte % 27.5 % (19-41); Mean Corp Hgb Conc 33.3 g/gl (32-36); Mean Corpuscular Hgb 28.9 pg (27.0-32.0); Mean Platelet Vol. 10.4 fl (6.2-12.0); Monocyte% 11.8 % (0-10); Neutrophil # 2.88 X10^3/uL (2.7-7.7); Neutrophil % 56.6 % (47-70); POSITIVE COUNT NO; POSITIVE DIFFERENTIAL NO; POSITIVE MORPHOLOGY YES; Platelet Count 189 K/mm3 (150-450); RBC Distribution Width CV 12.6 % (11.6-14.6); RBC Distribution Width SD 40.2 fl (35.1-43.9); Red Blood Count 4.84 M/mm3 (4.6-6.2); White Blood Count 5.1 K/mm3 (4.4-11.0)
[2018-10-12 07:43] LABS: Anion Gap 6 (5-15); BUN 13 mg/dL (7-18); Calcium,Total 7.8 mg/dL (8.5-10.1); Chloride 109 mmol/L (98-107); Creatinine, Serum 1.44 mg/dL (0.70-1.30); EST Glomerular Filtration Rate 51 mL/min (>60); Est Glom Filt Rate - Afr Amer 61 mL/min (>60); Estimated Creatinine Clearance 45.76 ml/min; Glucose 78 mg/dL (74-106); Potassium 4.7 mmol/L (3.5-5.1); Sodium Level 141 mmol/L (136-145)
[2018-10-12 08:00] VITALS: BP 145/80; PULSE 59; RESP 16; TEMP 36.5; O2SAT 95
--- NOTE | 2018-10-12 08:24 | PN.SURG_ITS ---
Patient Problems: Active and Suspected Problems (Last Updated 10/11/18 @ 17:10 by Aria Guevara MD) Perforation of sigmoid colon due to diverticulitis (Acute) Subjective: Patient denies pain currently, did have some diarrhea with some pain yesterday. - Physical Exam General: Alert, Oriented x3, Cooperative, No apparent distress HEENT: Atraumatic Lungs: Normal air movement Cardiovascular: Regular rate Abdomen: Soft, Non-Distended, Tender - Mild LLQ, no PS Vital Signs Temp Pulse Resp BP Pulse Ox 97.8 F 57 L 15 136/81 H 93 10/12/18 01:52 10/12/18 01:52 10/12/18 02:00 10/12/18 01:52 10/12/18 02:00 Oxygen Delivery Method Room Air Weight: 222 lb 3.615 oz Body Mass Index (BMI) 31.0 Intake and Output for Last 24 Hours 10/10/18 10/11/18 10/12/18 23:59 23:59 23:59 Intake Total 3955 / 3955 1667 / 1667 Output Total 1850 / 1850 1800 / 1800 Balance 2105 / 2105 -133 / -133 Laboratory Tests Past 24 Hrs 10/11/18 10/12/18 10/12/18 07:25 06:44 06:44 WBC 5.1 RBC 4.84 Hgb 14.0 Hct 42.1 MCV 87.0 MCH 28.9 MCHC 33.3 RDW 12.6 RDW Differential 40.2 Plt Count 189 MPV 10.4 Immature Gran % (Auto) 0.200 Neut % (Auto) 56.6 Lymph % (Auto) 27.5 Alfalfa % (Auto) 11.8 H Eos % (Auto) 3.3 Baso % (Auto) 0.6 Absolute Neuts (auto) 2.9 Absolute Lymphs (auto) 1.40 Total Counted Not Reportable Sodium 142 141 Potassium 4.6 4.7 Chloride 110 H 109 H Carbon Dioxide 27.0 26.0 Anion Gap 5 6 BUN 14 13 Creatinine 1.54 H 1.44 H Estim Creat Clear Calc 42.78 45.76 Est GFR (MDRD) Af Amer 57 L 61 Est GFR (MDRD) Non-Af 47 L 51 L BUN/Creatinine Ratio 9.1 L 9.0 L Glucose 91 78 Calcium 7.7 L 7.8 L Medical Necessity - Tobacco Use Smoking Status: Former smoker Assessment/Plan All Active Problems (Last Updated 10/11/18 @ 17:10 by Aria Guevara MD) Perforation of sigmoid colon due to diverticulitis (Acute) 78-year-old male with perforated diverticulitis with small abscess 1. clears. We will plan to treat conservatively currently. We also plan for a CAT scan tomorrow. 2. Continue Zosyn IV 3. Pain control 4. CKD- 1.44 near or at baseline Aria Guevara M.D. Pager: [phone] [facility] [address] [place] [address], [facility], [address] [place] [id number] Office: [phone]
[2018-10-12] MEDS: Lactated Ringers 1,000 ML 80 ML IV ×2 (09:36→23:56)
[2018-10-12] MEDS: Enoxaparin 40 MG/0.4 ML Syringe SC (09:38)
[2018-10-12 14:00] VITALS: BP 142/66; PULSE 60; RESP 18; TEMP 36.9; O2SAT 99
[2018-10-12 20:00] VITALS: BP 158/76; PULSE 57; RESP 15; TEMP 36.6; O2SAT 95; O2SAT 98
[2018-10-13 02:00] VITALS: RESP 15
[2018-10-13 04:56] VITALS: BP 137/75; PULSE 55; RESP 15; TEMP 36.4; O2SAT 95
--- NOTE | 2018-10-13 08:44 | PCM.PN.SRG ---
Patient Problems: Active and Suspected Problems (Last Updated 10/11/18 @ 17:10 by Aria Guevara MD) Perforation of sigmoid colon due to diverticulitis (Acute) Subjective: Patient states that he has no abdominal pain even with his diarrhea which he had after taking the broth. - Physical Exam General: Alert, Oriented x3, Cooperative, No apparent distress HEENT: Atraumatic Lungs: Normal air movement Cardiovascular: Regular rate Abdomen: Soft, Non Tender, Non-Distended Vital Signs Temp Pulse Resp BP Pulse Ox 97.6 F L 55 L 15 137/75 H 95 10/13/18 04:56 10/13/18 04:56 10/13/18 04:56 10/13/18 04:56 10/13/18 04:56 Oxygen Delivery Method Room Air Weight: 222 lb 3.615 oz Body Mass Index (BMI) 31.0 Intake and Output for Last 24 Hours 10/11/18 10/12/18 10/13/18 23:59 23:59 23:59 Intake Total 3955 / 3955 4273 / 4273 622.5 / 622.5 Output Total 1850 / 1850 3850 / 3850 300 / 300 Balance 2105 / 2105 423 / 423 322.5 / 322.5 Medical Necessity - Tobacco Use Smoking Status: Former smoker Assessment/Plan All Active Problems (Last Updated 10/11/18 @ 17:10 by Aria Guevara MD) Perforation of sigmoid colon due to diverticulitis (Acute) 78-year-old male with perforated diverticulitis with small abscess, CKD 1. clears. CAT scan today. 2. Continue Zosyn IV 3. Pain control Aria Guevara M.D. Pager: [phone] [facility] [address] [place] [address], Outpatient Pavilion, [address] [place] [address] Office: [phone] Code Visit Inpatient E&M: 59502 Init Hosp L1
--- NOTE | 2018-10-13 08:49 | PN.SURG_ITS ---
Patient Problems: Active and Suspected Problems (Last Updated 10/11/18 @ 17:10 by Aria Guevara MD) Perforation of sigmoid colon due to diverticulitis (Acute) Subjective: Patient states that he has no abdominal pain even with his diarrhea which he had after taking the broth. - Physical Exam General: Alert, Oriented x3, Cooperative, No apparent distress HEENT: Atraumatic Lungs: Normal air movement Cardiovascular: Regular rate Abdomen: Soft, Non Tender, Non-Distended Vital Signs Temp Pulse Resp BP Pulse Ox 97.6 F L 55 L 15 137/75 H 95 10/13/18 04:56 10/13/18 04:56 10/13/18 04:56 10/13/18 04:56 10/13/18 04:56 Oxygen Delivery Method Room Air Weight: 222 lb 3.615 oz Body Mass Index (BMI) 31.0 Intake and Output for Last 24 Hours 10/11/18 10/12/18 10/13/18 23:59 23:59 23:59 Intake Total 3955 / 3955 4273 / 4273 622.5 / 622.5 Output Total 1850 / 1850 3850 / 3850 300 / 300 Balance 2105 / 2105 423 / 423 322.5 / 322.5 Medical Necessity - Tobacco Use Smoking Status: Former smoker Assessment/Plan All Active Problems (Last Updated 10/11/18 @ 17:10 by Aria Guevara MD) Perforation of sigmoid colon due to diverticulitis (Acute) 78-year-old male with perforated diverticulitis with small abscess, CKD 1. clears. CAT scan today. 2. Continue Zosyn IV 3. Pain control Aria Guevara M.D. Pager: [phone] [facility] [address] [place] [address], Outpatient Pavilion, [address] [place] [address] Office: [phone] Code Visit Inpatient E&M: 82159 Init Hosp L1
[2018-10-13 10:00] VITALS: BP 159/91; PULSE 51; RESP 14; TEMP 36.4; O2SAT 100
--- NOTE | 2018-10-13 10:00 | CT_ITS ---
STUDY: CT ABDOMEN AND PELVIS WITH CONTRAST REASON FOR EXAM: Male, 78 years old. Left lower quadrant pain RADIATION DOSAGE (If Supplied By Facility): CTDIvol = ( 21.42 ) mGy, DLP = ( 1258.49 ) mGycm TECHNIQUE: Transaxial images were obtained from the dome of the diaphragm to the symphysis pubis without oral contrast. Isovue 300 100ML IV/Oral was administered. Sagittal and coronal images were reconstructed. Individualized dose optimization techniques were used for this CT. COMPARISON: 10/10/2018 FINDINGS: The visualized lung bases are unremarkable. The visualized portions of the heart are within normal limits. There is a liver hemangioma in segment #4 measures 2.9 cm. There are surgical clips in the gallbladder fossa consistent with a prior cholecystectomy. Normal spleen. Normal pancreas. Normal bilateral adrenal glands. Normal right kidney. No acute abnormalities of the kidneys. Stable left-sided parapelvic cysts. No stones. Symmetric contrast enhancement. No hydronephrosis. Normal visualized stomach. Normal small intestine. There is diverticulosis, with thickening of the sigmoid colon wall, and pericolonic inflammation changes consistent with acute diverticulitis. There is non-visualization of the appendix. There is diffuse atherosclerotic calcification of the abdominal aorta with elongation and tortuosity, but without a demonstrated aneurysm. Normal inferior vena cava. Normal retroperitoneum. Normal urinary bladder. 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 Bilateral small to moderate inguinal hernias are seen. These appear to have been previously repaired and have recurred. Normal osseous structures. CT/Abdomen/Pelvis WITH Contrast IMPRESSION: Sigmoid diverticulitis appears improved since the previous study. Resolved abscess. Electronically Signed: Lizzie Crawford, at 11:46 EDT Tel , Service support ,
[2018-10-13] MEDS: Enoxaparin 40 MG/0.4 ML Syringe SC (10:02)
[2018-10-13] MEDS: 0.9% NaCl Peripheral Flush Adult/Peds IV (13:25)
[2018-10-13 16:00] VITALS: BP 162/98; PULSE 58; RESP 14; TEMP 36.6; O2SAT 99
[2018-10-13 22:00] VITALS: BP 148/89; PULSE 57; RESP 16; TEMP 36.6; O2SAT 97
[2018-10-13] MEDS: Menthol/Lanolin/Calamine/Znox 113 GM Tube 1 APPLIC TOPICAL (23:58)
[2018-10-14 04:00] VITALS: BP 110/65; PULSE 58; RESP 16; TEMP 36.7; O2SAT 96
[2018-10-14] MEDS: Menthol/Lanolin/Calamine/Znox 113 GM Tube 1 APPLIC TOPICAL (06:09)
--- NOTE | 2018-10-14 09:46 | PCM.PN.SRG ---
Patient Problems: Active and Suspected Problems (Last Updated 10/11/18 @ 17:10 by Aria Guevara MD) Perforation of sigmoid colon due to diverticulitis (Acute) Subjective: Patient tolerated folds denies any abdominal pain, states diarrhea is improving. CT abdomen pelvis read said complete resolution of abscess however on my read there still quite a bit of inflammation of the sigmoid colon. - Physical Exam General: Alert, Oriented x3, Cooperative, No apparent distress HEENT: Atraumatic Lungs: Normal air movement Cardiovascular: Regular rate Abdomen: Soft, Non Tender, Non-Distended Extremities: No clubbing, No cyanosis, No edema Vital Signs Temp Pulse Resp BP Pulse Ox 98.1 F 58 L 16 110/65 96 10/14/18 04:00 10/14/18 04:00 10/14/18 04:00 10/14/18 04:00 10/14/18 04:00 Oxygen Delivery Method Room Air Weight: 222 lb 3.615 oz Body Mass Index (BMI) 31.0 Intake and Output for Last 24 Hours 10/12/18 10/13/18 10/14/18 23:59 23:59 23:59 Intake Total 4273 / 4273 1693.5 / 1693.5 216 / 216 Output Total 3850 / 3850 1350 / 1350 Balance 423 / 423 343.5 / 343.5 216 / 216 Medical Necessity - Tobacco Use Smoking Status: Former smoker Assessment/Plan All Active Problems (Last Updated 10/11/18 @ 17:10 by Aria Guevara MD) Perforation of sigmoid colon due to diverticulitis (Acute) 78-year-old male with perforated diverticulitis with small abscess, CKD stage IIIa (GFR 48-51) from unknown cause 1. Tolerated folds plan for low fiber diet today and patient will be DC'd on a low fiber diet as long as he tolerates it. 2. Continue Zosyn IV--will change to Augmentin for DC for a total of 14 days of antibiotics 3. Pain control 4. Plan to DC home later today tolerates a low fiber diet. We will have him stay on low fiber diet for about 6 weeks follow-up in office in about 2 weeks. Aria Guevara M.D. Pager: [phone] [facility] [address] [place] [address], Outpatient Pavilion, [address] [place] [id number] Office: [phone] Code Visit Inpatient E&M: 09917 Subs Hosp L1
--- NOTE | 2018-10-14 09:50 | PN.SURG_ITS ---
Patient Problems: Active and Suspected Problems (Last Updated 10/11/18 @ 17:10 by Aria Guevara MD) Perforation of sigmoid colon due to diverticulitis (Acute) Subjective: Patient tolerated folds denies any abdominal pain, states diarrhea is improving. CT abdomen pelvis read said complete resolution of abscess however on my read there still quite a bit of inflammation of the sigmoid colon. - Physical Exam General: Alert, Oriented x3, Cooperative, No apparent distress HEENT: Atraumatic Lungs: Normal air movement Cardiovascular: Regular rate Abdomen: Soft, Non Tender, Non-Distended Extremities: No clubbing, No cyanosis, No edema Vital Signs Temp Pulse Resp BP Pulse Ox 98.1 F 58 L 16 110/65 96 10/14/18 04:00 10/14/18 04:00 10/14/18 04:00 10/14/18 04:00 10/14/18 04:00 Oxygen Delivery Method Room Air Weight: 222 lb 3.615 oz Body Mass Index (BMI) 31.0 Intake and Output for Last 24 Hours 10/12/18 10/13/18 10/14/18 23:59 23:59 23:59 Intake Total 4273 / 4273 1693.5 / 1693.5 216 / 216 Output Total 3850 / 3850 1350 / 1350 Balance 423 / 423 343.5 / 343.5 216 / 216 Medical Necessity - Tobacco Use Smoking Status: Former smoker Assessment/Plan All Active Problems (Last Updated 10/11/18 @ 17:10 by Aria Guevara MD) Perforation of sigmoid colon due to diverticulitis (Acute) 78-year-old male with perforated diverticulitis with small abscess, CKD stage IIIa (GFR 48-51) from unknown cause 1. Tolerated folds plan for low fiber diet today and patient will be DC'd on a low fiber diet as long as he tolerates it. 2. Continue Zosyn IV--will change to Augmentin for DC for a total of 14 days of antibiotics 3. Pain control 4. Plan to DC home later today tolerates a low fiber diet. We will have him stay on low fiber diet for about 6 weeks follow-up in office in about 2 weeks. Aria Guevara M.D. Pager: [phone] [facility] [address] [place] [address], Outpatient Pavilion, [address] [place] [id number] Office: [phone] Code Visit Inpatient E&M: 45663 Subs Hosp L1
[2018-10-14 10:00] VITALS: BP 131/88; PULSE 84; RESP 16; TEMP 36.1; O2SAT 96
--- NOTE | 2018-10-14 10:00 | PCM.DC.GS ---
Discharge Diet: - - low fiber diet x 6 weeks Discharge Activity: No Restrictions, May Shower Allergies/Adverse Reactions: Allergies No Known Allergies Allergy (Verified 10/10/18 21:51) Medications to take at Discharge Aspirin [Aspirin, Baby] 81 mg PO DAILY 10/10/18 Cholecalciferol (Vitamin D3) [Vitamin D3] 2,000 unit PO DAILY 10/10/18 Amoxicillin/Potassium Clav [Augmentin 875-125 Tablet] 1 each PO BID #21 tablet 10/14/18 Primary Care Physician: Jazlyn Richard DO [Primary Care Provider] - Test Results: Test results from this visit will be discussed in further detail at your follow-up appointment, if applicable. Please Follow Up With: Aria Guevara MD - Any issues after 5 PM or on the weekends call [phone] When: Call the office for a follow-up in 2 weeks [phone] Proposed Discharge Date: 10/14/18
[2018-10-14] MEDS: Enoxaparin 40 MG/0.4 ML Syringe SC (10:03)
--- NOTE | 2018-10-14 10:04 | DCINST_ITS ---
Discharge Diet: - - low fiber diet x 6 weeks Discharge Activity: No Restrictions, May Shower Allergies/Adverse Reactions: Allergies No Known Allergies Allergy (Verified 10/10/18 21:51) Medications to take at Discharge Aspirin [Aspirin, Baby] 81 mg PO DAILY 10/10/18 Cholecalciferol (Vitamin D3) [Vitamin D3] 2,000 unit PO DAILY 10/10/18 Amoxicillin/Potassium Clav [Augmentin 875-125 Tablet] 1 each PO BID #21 tablet 10/14/18 Primary Care Physician: Jazlyn Richard DO [Primary Care Provider] - Test Results: Test results from this visit will be discussed in further detail at your follow- up appointment, if applicable. Please Follow Up With: Aria Guevara MD - Any issues after 5 PM or on the weekends call [phone] When: Call the office for a follow-up in 2 weeks [phone] Proposed Discharge Date: 10/14/18
--- NOTE | 2018-10-14 10:04 | PCM.DC.SUM ---
Discharge Date and Diagnosis - Problem List Patient Problems: Active and Suspected Problems (Last Updated 10/11/18 @ 17:10 by Aria Guevara MD) Perforation of sigmoid colon due to diverticulitis (Acute) Date of Admission: 10/11/18 Date of Discharge: 10/14/18 - Primary Discharge Diagnosis Active and Suspected Problems (Last Updated 10/11/18 @ 17:10 by Aria Guevara MD) Perforation of sigmoid colon due to diverticulitis (Acute) Hospital Course and Treatment Imaging Results: Clinical Impression(s) from Imaging Studies Abdomen/Pelvis CT 10/13/18 10:00 IMPRESSION: Sigmoid diverticulitis appears improved since the previous study. Resolved abscess. Electronically Signed: Lizzie Crawford, at 11:46 EDT Tel , Service support , Operations: None Procedures: None Summary of Care Provided: The patient is a 78 year old M presented to the ER 10/10/[address] abdomen pelvis scheduled by PCP which showed diverticulitis with an abscess. Patient was admitted to the hospital kept n.p.o. with IV fluids, IV Zosyn until the pain resolved. By 10/12/18 patient complained of only minimal pain on palpation and was able to be advanced to a clear diet. Repeat CT abdomen pelvis was done on 10/13 which showed resolution of abscess with still some thickening of the sigmoid colon consistent with diverticulitis. Patient's white blood cell count throughout hospitalization was normal. Patient does have some chronic kidney disease his last creatinine was 1.44 which is pretty consistent with his previous baseline seen in our system. Patient is able to be started on full liquid diet and then advance to a low fiber diet. Patient tolerated well without increased pain. Is able to be DC'd home. Plan to follow-up in 2 weeks and stay on low fiber diet for about 6 weeks. We will also plan for repeat colonoscopy in 6-8 weeks. Patient Problems: Active and Suspected Problems (Last Updated 10/11/18 @ 17:10 by Aria Guevara MD) Perforation of sigmoid colon due to diverticulitis (Acute) - Physical Exam General: Alert, Oriented x3, Cooperative, No apparent distress HEENT: Atraumatic Lungs: Normal air movement Cardiovascular: Regular rate Abdomen: Soft, Non Tender, Non-Distended Extremities: No clubbing, No cyanosis, No edema Neurological: Cranial nerves II-XII grossly intact Psych/Mental Status: Normal Affect Vital Signs Temp Pulse Resp BP Pulse Ox 98.1 F 58 L 16 110/65 96 10/14/18 04:00 10/14/18 04:00 10/14/18 04:00 10/14/18 04:00 10/14/18 04:00 Oxygen Delivery Method Room Air Weight: 222 lb 3.615 oz Body Mass Index (BMI) 31.0 Intake and Output for Last 24 Hours 10/12/18 10/13/18 10/14/18 23:59 23:59 23:59 Intake Total 4273 / 4273 1693.5 / 1693.5 216 / 216 Output Total 3850 / 3850 1350 / 1350 Balance 423 / 423 343.5 / 343.5 216 / 216 Discharge Diet: - - low fiber diet x 6 weeks Discharge Activity: No Restrictions, May Shower Home Medications: Medications to take at Discharge Aspirin [Aspirin, Baby] 81 mg PO DAILY 10/10/18 Cholecalciferol (Vitamin D3) [Vitamin D3] 2,000 unit PO DAILY 10/10/18 Amoxicillin/Potassium Clav [Augmentin 875-125 Tablet] 1 each PO BID #21 tablet 10/14/18 Following Prescrptions Were Given to Patient: Amoxicillin/Potassium Clav [Augmentin 875-125 Tablet] 1 each PO BID #21 tablet Primary Care Physician: Jazlyn Richard DO [Primary Care Provider] - Please Follow Up With: Aria Guevara MD - Any issues after 5 PM or on the weekends call [phone] When: Call the office for a follow-up in 2 weeks [phone] Disposition: Home Minutes spent on discharge:: 15 Patient Condition:: Stable Medical Necessity - Tobacco Use Smoking Status: Former smoker Meaningful Use Info Meaningful Use Diagnoses (Choose all that apply): None applicable Code Visit Inpatient E&M: 45576 Disch Hosp
--- NOTE | 2018-10-14 10:08 | DS.PCM_ITS ---
Discharge Date and Diagnosis - Problem List Patient Problems: Active and Suspected Problems (Last Updated 10/11/18 @ 17:10 by Aria Guevara MD) Perforation of sigmoid colon due to diverticulitis (Acute) Date of Admission: 10/11/18 Date of Discharge: 10/14/18 - Primary Discharge Diagnosis Active and Suspected Problems (Last Updated 10/11/18 @ 17:10 by Aria Guevara MD) Perforation of sigmoid colon due to diverticulitis (Acute) Hospital Course and Treatment Imaging Results: Clinical Impression(s) from Imaging Studies Abdomen/Pelvis CT 10/13/18 10:00 IMPRESSION: Sigmoid diverticulitis appears improved since the previous study. Resolved abscess. Electronically Signed: Lizzie Crawford, at 11:46 EDT Tel , Service support , Operations: None Procedures: None Summary of Care Provided: The patient is a 78 year old M presented to the ER 10/10/[address] abdomen pelvis scheduled by PCP which showed diverticulitis with an abscess. Patient was admitted to the hospital kept n.p.o. with IV fluids, IV Zosyn until the pain resolved. By 10/12/18 patient complained of only minimal pain on palpation and was able to be advanced to a clear diet. Repeat CT abdomen pelvis was done on 10/13 which showed resolution of abscess with still some thickening of the sigmoid colon consistent with diverticulitis. Patient's white blood cell count throughout hospitalization was normal. Patient does have some chronic kidney disease his last creatinine was 1.44 which is pretty consistent with his previous baseline seen in our system. Patient is able to be started on full liquid diet and then advance to a low fiber diet. Patient tolerated well without increased pain. Is able to be DC'd home. Plan to follow-up in 2 weeks and stay on low fiber diet for about 6 weeks. We will also plan for repeat colonoscopy in 6-8 weeks. Patient Problems: Active and Suspected Problems (Last Updated 10/11/18 @ 17:10 by Aria Guevara MD) Perforation of sigmoid colon due to diverticulitis (Acute) - Physical Exam General: Alert, Oriented x3, Cooperative, No apparent distress HEENT: Atraumatic Lungs: Normal air movement Cardiovascular: Regular rate Abdomen: Soft, Non Tender, Non-Distended Extremities: No clubbing, No cyanosis, No edema Neurological: Cranial nerves II-XII grossly intact Psych/Mental Status: Normal Affect Vital Signs Temp Pulse Resp BP Pulse Ox 98.1 F 58 L 16 110/65 96 10/14/18 04:00 10/14/18 04:00 10/14/18 04:00 10/14/18 04:00 10/14/18 04:00 Oxygen Delivery Method Room Air Weight: 222 lb 3.615 oz Body Mass Index (BMI) 31.0 Intake and Output for Last 24 Hours 10/12/18 10/13/18 10/14/18 23:59 23:59 23:59 Intake Total 4273 / 4273 1693.5 / 1693.5 216 / 216 Output Total 3850 / 3850 1350 / 1350 Balance 423 / 423 343.5 / 343.5 216 / 216 Discharge Diet: - - low fiber diet x 6 weeks Discharge Activity: No Restrictions, May Shower Home Medications: Medications to take at Discharge Aspirin [Aspirin, Baby] 81 mg PO DAILY 10/10/18 Cholecalciferol (Vitamin D3) [Vitamin D3] 2,000 unit PO DAILY 10/10/18 Amoxicillin/Potassium Clav [Augmentin 875-125 Tablet] 1 each PO BID #21 tablet 10/14/18 Following Prescrptions Were Given to Patient: Amoxicillin/Potassium Clav [Augmentin 875-125 Tablet] 1 each PO BID #21 tablet Primary Care Physician: Jazlyn Richard DO [Primary Care Provider] - Please Follow Up With: Aria Guevara MD - Any issues after 5 PM or on the weekends call [phone] When: Call the office for a follow-up in 2 weeks [phone] Disposition: Home Minutes spent on discharge:: 15 Patient Condition:: Stable Medical Necessity - Tobacco Use Smoking Status: Former smoker Meaningful Use Info Meaningful Use Diagnoses (Choose all that apply): None applicable Code Visit Inpatient E&M: 17212 Disch Hosp
--- NOTE | 2018-10-14 10:13 | CASEMGMT ---
RN CM in to follow-up with patient regarding discharge needs. Patient denies needs at this time. Plan is for discharge home today. RN CM will continue to follow this patient and plan for a safe discharge.
[2018-10-14 12:30] VITALS: BP 133/75; PULSE 62; RESP 16; TEMP 36.7; O2SAT 99
[2018-10-14] MEDS: Aspirin 81 MG TAB.CHEW PO (12:44)
--- NOTE | 2018-10-15 15:19 | CASEMGMT ---
RN CM Discharge Follow-up Phone Call: FABY: Neetu Strata: 3 Call Date: 10/15/18 Discharge Date: 10/14/18 Time of Call: 1515 Duration: 1 min Admitting Diagnosis: Perforated Diverticulitis RN RAUL attempted to complete follow-up phone call after recent hospitalization. No answer, voice message left with return contact information. Patient has follow-up appt with surgeon on 10/28/18.
== END 2018-10-14 12:51 | disposition home or self-care (01) | DRG 392 ==
LOC: ED 23:24 → MS3 10-11 00:02
PROVIDERS: Admitting Provider Surgery; Emergency Provider Emergency Medicine; Family Provider Internal Medicine; PCP Internal Medicine; Visit Provider Surgery
DX: K57.20 Diverticulitis of large intestine with perforation and abscess without bleeding (principal); N18.3 Chronic kidney disease, stage 3 (moderate); R19.8 Other specified symptoms and signs involving the digestive system and abdomen; R10.84 Generalized abdominal pain
CPT/HCPCS: 36415; 74019; 74177; 80048; 81001; 85025; 93005; 99283; J7030; J7040; J7120; Q9967; A4216

== ENCOUNTER 2018-10-23 07:35 | Observation (INO) | payer MEDICARE, SELFPAY ==
[2018-10-11 01:17] VITALS: BMI 31.0
[2018-10-23] VITALS (12 sets, daily range): BP systolic 103–155; BP diastolic 53–83; PULSE 51–77; RESP 14–17; TEMP 36.5–36.8; O2SAT 94–99; BMI 31.4; BMI 29.8
[2018-10-23 07:45] LABS: Bedside Glucose 75 mg/dL (70-110)
--- NOTE | 2018-10-23 07:47 | ED.RN ---
PT'S STRENGTH IN ALL EXTREMITIES ARE EQUAL AND FOLLOWS COMMANDS.
--- NOTE | 2018-10-23 07:48 | CT_ITS ---
We are attempting to reach Lane Pope MD to discuss findings. An addendum with communication details will be sent when the communication is complete. STUDY: CT BRAIN WITHOUT CONTRAST REASON FOR EXAM: Male, 78 years old. Left-sided weakness and left leg weakness. Nausea and vomiting. Heaviness. RADIATION DOSAGE (If Supplied By Facility): CTDIvol = ( 44.99 ) mGy, DLP = ( 796.11 ) mGycm TECHNIQUE: Transaxial CT imaging of the brain was performed without administration of intravenous contrast material. Individualized dose optimization techniques were used for this CT. COMPARISON: No relevant priors. FINDINGS: Normal soft tissue structures. Normal calvarium. Normal size ventricles and extra-axial spaces for the patient's age. Subcortical white matter hypodensities are chronic white matter ischemic changes. Normal basal ganglia and thalami. Normal brainstem. Normal cerebellum. There is no intracranial hemorrhage. There are no findings of an acute ischemic infarction. Mucous retention cysts in the maxillary sinuses. CT/Brain/Head without Contrast IMPRESSION: 1. No CT evidence of intracranial bleeding, acute ischemic infarct or acute intracranial abnormality at this time. 2. Chronic subcortical white matter ischemic changes in both cerebral hemispheres. Electronically Signed: Anders Weems MD at 8:52 EDT , Service support ,
--- NOTE | 2018-10-23 07:48 | EKG12_ITS ---
Test Reason : WEAKNESS Blood Pressure : / mmHG Vent. Rate : 066 BPM Atrial Rate : 066 BPM P-R Int : 176 ms QRS Dur : 100 ms QT Int : 444 ms P-R-T Axes : 052 013 070 degrees QTc Int : 465 ms Normal sinus rhythm Septal MO, age undetermined, cannot be excluded Confirmed by POWER MINOR, ERIN ([id number]), food editor TAWNYA ZAVALA ([id number]) on 10/27/2018 1:59:27 PM Referred By: VIKRAM Confirmed By:ERIN STEVE MD
--- NOTE | 2018-10-23 07:49 | ED.RN ---
IS CONCERNED THAT HE APPEARS CONFUSED IN HIS RESPONSES AND ALSO HIS INABILITY TO KEEP I=HIS EYES CLOSED AND UNABLE TO KEEP THERMOMETER UNDER HIS TONGUE. PHYSICIAN IS AWARE. PT STATES HE IS FEELING EMOTIONAL.
--- NOTE | 2018-10-23 07:50 | CT_ITS ---
STUDY: CTA NECK WITH CONTRAST REASON FOR EXAM: Male, 78 years old. Left-sided weakness and left leg weakness. RADIATION DOSAGE (If Supplied By Facility): CTDIvol = ( 25.05 ) mGy, DLP = ( 991.21 ) mGycm TECHNIQUE: CT angiography with multi-detector data acquisition was performed from the aortic arch to the skull base following intravenous administration of 100 IV Isovue 370. MIP images were reconstructed from the axial data set. Post-processing of the angiographic images was performed, with multiplanar reformation and 3D reconstruction. Individualized dose optimization techniques were used for this CT. COMPARISON: None. FINDINGS: Coronary artery calcification. There is a 2.5 cm x 2.2 cm hypodensity in the right lobe of the thyroid suggestive of goiter as change. AORTIC ARCH: Normal visualized aortic arch. Normal origins of the brachiocephalic, left common carotid, and left subclavian arteries. RIGHT CAROTID ARTERIES: Normal right common carotid artery (CCA). Normal right common carotid bulb. There is mild atherosclerotic plaque formation of the origin of the right internal carotid artery with less than 50% cross sectional diameter stenosis. Normal visualized cervical portion of the right internal carotid artery. Normal origin of the right external carotid artery (ECA). LEFT CAROTID ARTERIES: Normal left common carotid artery (CCA). Normal left common carotid bulb. There is mild atherosclerotic plaque formation of the origin of the left internal carotid artery with less than 50% cross sectional diameter stenosis. Normal visualized cervical portion of the left internal carotid artery. Normal origin of the left external carotid artery (ECA). VERTEBRAL ARTERIES: There is enhancement within the bilateral vertebral arteries with a small right vertebral artery, and a dominant left vertebral artery. CT/CTA Neck W/WO Contrast IMPRESSION: Mild calcific plaque at the origins of both internal carotid arteries causing less than 50% narrowing. Hypodensity in the right lobe of the thyroid. Partial opacification of the left maxillary sinus and mucosal thickening of the right maxillary sinus. N.B. : The above information has been verbally conveyed by Erwin Miller to Lanesteve Pope on 10/23/2018 09:03:09 (ET). Electronically Signed: Erwin Miller, at 9:04 EDT , Service support ,
--- NOTE | 2018-10-23 07:50 | CT_ITS ---
We are attempting to reach Lane Pope MD to discuss findings. An addendum with communication details will be sent when the communication is complete. STUDY: CTA OF THE BRAIN REASON FOR EXAM: Male, 78 years old. Left-sided weakness. Left leg weakness. RADIATION DOSAGE (If Supplied By Facility): CTDIvol = ( 25.05 ) mGy, DLP = ( 991.21 ) mGycm TECHNIQUE: CT angiography was performed with a multi-detector CT scanner. Data acquisition was obtained from the skull base through the vertex following intravenous administration of 100 IV Isovue 370. MIP images were reconstructed from the axial data set. Post-processing of the angiographic images was performed, with multiplanar reformation and 3D reconstruction. Individualized dose optimization techniques were used for this CT. COMPARISON: None. FINDINGS: Normal bilateral petrous carotid arteries. There is calcified plaque formation of the right cavernous carotid artery, without a cross-sectional luminal stenosis. There is calcified plaque formation of the left cavernous carotid artery, without a cross-sectional luminal stenosis. There is non-visualization of the right A1 segment of the anterior cerebral arteries consistent with either aplastic development or an occlusion. Normal left A1 segments of the anterior cerebral artery. Normal intact anterior communicating artery (ACOM). Normal bilateral A2 segments of the anterior cerebral arteries. Normal right M1 and M2 segments of the middle cerebral arteries, with a normal M1 bifurcation. Normal left M1 and M2 segments of the middle cerebral arteries, with a normal M1 bifurcation. There is a persistent origin of the right posterior cerebral artery with absence of the posterior communicating artery (PCOM). Normal left posterior communicating artery (PCOM). Normal bilateral vertebral arteries. Normal basilar artery with a normal basilar bifurcation. The visualized bilateral superior cerebellar (SCA) arteries are normal. Normal bilateral P1, P2 and visualized P3 segments of the posterior cerebral arteries. There is no demonstrated aneurysm of the [place]. Partial opacification of the left maxillary sinus. CT/CTA Head W/WO Contrast IMPRESSION: Normal [place] without a demonstrated aneurysm or hemodynamically significant stenosis. Electronically Signed: Erwin Miller, at 9:00 EDT , Service support ,
--- NOTE | 2018-10-23 07:53 | ED.VIS.STROK ---
History of Present Illness Chief Complaint: Weakness Informant: Patient, Family Onset: Today Context: Sudden Onset Timing: Continuous Quality and Location: Left Leg Weakness, - - concerned regarding his speech and confusion Onset: 0650 Current Severity: Mild Maximum Severity: Mild Worsened by: Nothing Relieved by: Nothing Associated Symptoms: Negative for: Headache, Nausea, Vomiting, Chest Pain Narrative: Patient is an elderly male recently admitted for diverticular abscess. He presents because of abrupt onset of heaviness left arm and weakness left leg. is concerned because of his behavior. Currently he is staring, his thought process is not normal and problems with speech. He denies ocular, visual auditory Sensipar he denies cardiac respiratory symptoms. He denies GI or symptoms. He states he awoke this morning walked to the restroom without difficulty. His leg then became heavy and buckled and he fell. He is on no anticoagulant. - Past Medical History (1) Perforation of sigmoid colon due to diverticulitis Status: Acute Past Medical History - Allergies and Home Meds Allergies/Adverse Reactions: Allergies No Known Allergies Allergy (Verified 10/10/18 21:51) Primary Care Physician: Jazlyn Richard DO [Primary Care Provider] - Prior records reviewed: Yes Surgical History: cholecystectomy, herniorrhaphy - RIH x 2 open, tonsillectomy, - - cardiac stent 10 years ago, colonoscopy about 10 years ago, seeds for prostate cancer, left achilles repair, nasal septum repair Lives: Spouse/ Significant Other Smoking Status: Former smoker Drugs: None - Family History Maternal Family History: Reports: No pertinent history Review of Systems General: Denies: Chills, Fever, Subjective, Sweats Eyes: Denies: Visual changes - bilaterally, Blurred Vision - bilaterally, Diplopia ENT: Denies: Bilateral ear pain, Rhinorrhea, Sore throat Cardiovascular: Denies: Chest pain, Palpitations Respiratory: Denies: Dyspnea, Cough, Dyspnea on exertion Gastrointestinal: Denies: Abdominal pain, Nausea, Vomiting, Diarrhea, Melena, Hematochezia Genitourinary: Denies: Dysuria, Hematuria, Frequency Musculoskeletal: Denies: Myalgias, Arthralgias, Neck pain, Back pain, Extremity Pain Skin: Denies: Rash, Wounds Neurological: Reports: Weakness, Parasthesia, Numbness, - - concerned because of behavior and speech.. Denies: Headache Hematologic: Denies: Easy bruising, Easy bleeding Physical Exam Vital Signs/Narrative: Vital Signs Temp Pulse Resp BP Pulse Ox 10/23/18 07:36 97.9 F 63 17 155/82 H 97 Inital Vital Signs reviewed: Yes - NIH Stroke Scale 1a Level of Consciousness: 0 1b LOC Questions (Score 2 if aphasic/stupor): 0 1c LOC Commands (Only score 1st attempt): 0 2 Best Gaze (If aphasic, use reflexive mvmts.): 0 3 Visual: 0 4 Facial Palsy: 0 5 Motor Arm Right (UN = amputation/fusion): 0 5 Motor Arm Left: 0 6 Motor Leg Right: 0 6 Motor Leg Left: 1 7 Limb ataxia (Only + if out of proportion): 0 8 Sensory (Aphasia/stupor=0 or 1, coma=2): 0 9 Best Language: 0 10 Dysarthria (mute, coma=2, intubated=UN): 0 11 Extinction and Inattention (only scored if +): 0 - Thank you Total Score: 1 General: Well nourished, Well developed, - - Patient looks much different than when I admitted him for perforated sigmoid diverticulitis. He appears as if he has aged a decade. Head: Normocephalic, Atraumatic Eyes: Perrl, EOMI ENT: Moist mucous membranes, No rhinorrhea Neck: Supple, Nontender Cardiovascular: Regular rate, Regular rhythm, No murmurs Respiratory: No distress, CTA bilaterally, Chest nontender Abdomen: Soft, Nontender, Nondistended, Normal bowel sounds Back: Nontender, Normal Inspection. Negative for: CVA tenderness - So he got 2.7 for his NIH [id number] for me that he got missed a rung for you okay because I think I just keep Extremities: Nontender, No edema Skin: Normal color, No rash Neurological: Alert, Oriented x3, Cranial nerves II-XII grossly intact, Normal Sensation, Normal DTR, Confused - Per . Nurse states he was not appropriate prior to my examination either. He answered all questions appropriately and performed the NIH exam with only weakness noted left lower extremity., Weakness - Who he can tell me is nauseated she reported for well visit what he think Psychological: Normal affect Diagnostic/Tx/Re-eval Impressions Brain CT 10/23/18 07:48 IMPRESSION: 1. No CT evidence of intracranial bleeding, acute ischemic infarct or acute intracranial abnormality at this time. 2. Chronic subcortical white matter ischemic changes in both cerebral hemispheres. Electronically Signed: Anders Weems MD at 8:52 EDT , Service support , Head CTA 10/23/18 07:50 IMPRESSION: Normal [place] without a demonstrated aneurysm or hemodynamically significant stenosis. Electronically Signed: Erwin Miller, at 9:00 EDT , Service support , ADDENDUM: 10/23/18 0910 IMPRESSION: Normal [place] without a demonstrated aneurysm or hemodynamically significant stenosis. N.B. : The above information has been verbally conveyed by Erwin Miller to [facility] on 10/23/2018 09:03:43 (ET). Electronically Signed: Erwin Miller, at 9:00 EDT , Service support , Neck CTA 10/23/18 07:50 IMPRESSION: Mild calcific plaque at the origins of both internal carotid arteries causing less than 50% narrowing. Hypodensity in the right lobe of the thyroid. Partial opacification of the left maxillary sinus and mucosal thickening of the right maxillary sinus. N.B. : The above information has been verbally conveyed by Erwin Miller to [facility] on 10/23/2018 09:03:09 (ET). Electronically Signed: Erwin Miller, at 9:04 EDT , Service support , ADDENDUM: 10/23/18 0911 IMPRESSION: Mild calcific plaque at the origins of both internal carotid arteries causing less than 50% narrowing. Hypodensity in the right lobe of the thyroid. Partial opacification of the left maxillary sinus and mucosal thickening of the right maxillary sinus. N.B. : The above information has been verbally conveyed by Erwin Paul to Lane Pope on 10/23/2018 09:03:09 (ET). Electronically Signed: Erwin Paul, at 9:04 EDT , Service support , 10/23/18 07:48 Brain/Head without Contrast [CT] Stat 10/23/18 07:50 CTA Head W/WO Contrast [CT] Stat CTA Neck W/WO Contrast [CT] Stat Laboratory Results 10/23/18 10/23/18 10/23/18 07:42 07:45 07:45 WBC 8.4 RBC 5.30 Hgb 15.5 Hct 46.3 MCV 87.4 MCH 29.2 MCHC 33.5 RDW 13.6 RDW Differential 43.2 Plt Count 227 MPV 10.4 Immature Gran % (Auto) 0.400 Neut % (Auto) 48.0 Lymph % (Auto) 31.1 Webb % (Auto) 8.6 Eos % (Auto) 11.2 H Baso % (Auto) 0.7 Absolute Neuts (auto) 4.0 Absolute Lymphs (auto) 2.60 Total Counted Not Reportable PT 13.5 INR 1.1 APTT 30.4 Sodium Potassium Chloride Carbon Dioxide Anion Gap BUN Creatinine Estim Creat Clear Calc Est GFR (MDRD) Af Amer Est GFR (MDRD) Non-Af BUN/Creatinine Ratio Glucose Calcium POC Glucose 75 10/23/18 07:45 WBC RBC Hgb Hct MCV MCH MCHC RDW RDW Differential Plt Count MPV Immature Gran % (Auto) Neut % (Auto) Lymph % (Auto) Webb % (Auto) Eos % (Auto) Baso % (Auto) Absolute Neuts (auto) Absolute Lymphs (auto) Total Counted PT INR APTT Sodium 142 Potassium 4.3 Chloride 110 H Carbon Dioxide 25.0 Anion Gap 7 BUN 18 Creatinine 1.62 H Estim Creat Clear Calc 40.67 Est GFR (MDRD) Af Amer 53 L Est GFR (MDRD) Non-Af 44 L BUN/Creatinine Ratio 11.1 Glucose 112 H Calcium 8.5 POC Glucose - Rhythm Strip Rhythm Strip: Sinus Rhythm Rate: 62 Ectopy: None - EKG Initial EKG Interpretation: Sinus Rhythm - Ventricular rate 66. VT interval, QRS duration, QT interval and axis is normal. EKG is normal. - Medical Decision Making Stroke Team Activated: No - NIH is 1 IV TPA Administered: No Patient appearance has changed significant since last ER visit. I was informed by nurse that he is now complaining of nausea at the time of dictation and he is confused. He now commented he cannot wait for his birthday because he will turn 78. He answered that question appropriately when initially evaluated. Symptoms are concerning for right hemispheric stroke. With recent admission for perforated sigmoid diverticulitis need to entertain possibility of infectious etiology. He does have history of renal insufficiency. He was given a fluid bolus prior to ordering CTA of the head neck. Need to consider atypical presentation for brain abscess. Stroke order set was initiated. Patient will require admission. Patient was reevaluated at 0910. He now was able to follow commands. He has no deficits. Per my conversation with Dr. Weems the neuroradiologist patient has a distal partial obstruction of the lower branch M3 distribution right middle cerebral artery that is very distal. Patient will need workup for embolic phenomenon. Critical care time (excluding procedures): Discussion with neuroradiologist regarding results of CTA. 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
--- NOTE | 2018-10-23 07:57 | ED.DCSUM_ITS ---
History of Present Illness Chief Complaint: Weakness Informant: Patient, Family Onset: Today Context: Sudden Onset Timing: Continuous Quality and Location: Left Leg Weakness, - - concerned regarding his speech and confusion Onset: 0650 Current Severity: Mild Maximum Severity: Mild Worsened by: Nothing Relieved by: Nothing Associated Symptoms: Negative for: Headache, Nausea, Vomiting, Chest Pain Narrative: Patient is an elderly male recently admitted for diverticular abscess. He presents because of abrupt onset of heaviness left arm and weakness left leg. is concerned because of his behavior. Currently he is staring, his thought process is not normal and problems with speech. He denies ocular, visual auditory Sensipar he denies cardiac respiratory symptoms. He denies GI or symptoms. He states he awoke this morning walked to the restroom without difficulty. His leg then became heavy and buckled and he fell. He is on no anticoagulant. - Past Medical History (1) Perforation of sigmoid colon due to diverticulitis Status: Acute Past Medical History - Allergies and Home Meds Allergies/Adverse Reactions: Allergies No Known Allergies Allergy (Verified 10/10/18 21:51) Primary Care Physician: Jazlyn Richard DO [Primary Care Provider] - Prior records reviewed: Yes Surgical History: cholecystectomy, herniorrhaphy - RIH x 2 open, tonsillectomy, - - cardiac stent 10 years ago, colonoscopy about 10 years ago, seeds for prostate cancer, left achilles repair, nasal septum repair Lives: Spouse/ Significant Other Smoking Status: Former smoker Drugs: None - Family History Maternal Family History: Reports: No pertinent history Review of Systems General: Denies: Chills, Fever, Subjective, Sweats Eyes: Denies: Visual changes - bilaterally, Blurred Vision - bilaterally, Diplopia ENT: Denies: Bilateral ear pain, Rhinorrhea, Sore throat Cardiovascular: Denies: Chest pain, Palpitations Respiratory: Denies: Dyspnea, Cough, Dyspnea on exertion Gastrointestinal: Denies: Abdominal pain, Nausea, Vomiting, Diarrhea, Melena, Hematochezia Genitourinary: Denies: Dysuria, Hematuria, Frequency Musculoskeletal: Denies: Myalgias, Arthralgias, Neck pain, Back pain, Extremity Pain Skin: Denies: Rash, Wounds Neurological: Reports: Weakness, Parasthesia, Numbness, - - concerned because of behavior and speech.. Denies: Headache Hematologic: Denies: Easy bruising, Easy bleeding Physical Exam Vital Signs/Narrative: Vital Signs Temp Pulse Resp BP Pulse Ox 10/23/18 07:36 97.9 F 63 17 155/82 H 97 Inital Vital Signs reviewed: Yes - NIH Stroke Scale 1a Level of Consciousness: 0 1b LOC Questions (Score 2 if aphasic/stupor): 0 1c LOC Commands (Only score 1st attempt): 0 2 Best Gaze (If aphasic, use reflexive mvmts.): 0 3 Visual: 0 4 Facial Palsy: 0 5 Motor Arm Right (UN = amputation/fusion): 0 5 Motor Arm Left: 0 6 Motor Leg Right: 0 6 Motor Leg Left: 1 7 Limb ataxia (Only + if out of proportion): 0 8 Sensory (Aphasia/stupor=0 or 1, coma=2): 0 9 Best Language: 0 10 Dysarthria (mute, coma=2, intubated=UN): 0 11 Extinction and Inattention (only scored if +): 0 - Thank you Total Score: 1 General: Well nourished, Well developed, - - Patient looks much different than when I admitted him for perforated sigmoid diverticulitis. He appears as if he has aged a decade. Head: Normocephalic, Atraumatic Eyes: Perrl, EOMI ENT: Moist mucous membranes, No rhinorrhea Neck: Supple, Nontender Cardiovascular: Regular rate, Regular rhythm, No murmurs Respiratory: No distress, CTA bilaterally, Chest nontender Abdomen: Soft, Nontender, Nondistended, Normal bowel sounds Back: Nontender, Normal Inspection. Negative for: CVA tenderness - So he got 2.7 for his NIH [id number] for me that he got missed a rung for you okay because I think I just keep Extremities: Nontender, No edema Skin: Normal color, No rash Neurological: Alert, Oriented x3, Cranial nerves II-XII grossly intact, Normal Sensation, Normal DTR, Confused - Per . Nurse states he was not appropriate prior to my examination either. He answered all questions appropriately and performed the NIH exam with only weakness noted left lower extremity., Weakness - Who he can tell me is nauseated she reported for well visit what he think Psychological: Normal affect Diagnostic/Tx/Re-eval Impressions Brain CT 10/23/18 07:48 IMPRESSION: 1. No CT evidence of intracranial bleeding, acute ischemic infarct or acute intracranial abnormality at this time. 2. Chronic subcortical white matter ischemic changes in both cerebral hemispheres. Electronically Signed: Anders Weems MD at 8:52 EDT , Service support , Head CTA 10/23/18 07:50 IMPRESSION: Normal [place] without a demonstrated aneurysm or hemodynamically significant stenosis. Electronically Signed: Erwin Miller, at 9:00 EDT , Service support , ADDENDUM: 10/23/18 0910 IMPRESSION: Normal [place] without a demonstrated aneurysm or hemodynamically significant stenosis. N.B. : The above information has been verbally conveyed by Erwin Miller to [facility] on 10/23/2018 09:03:43 (ET). Electronically Signed: Erwin Miller, at 9:00 EDT , Service support , Neck CTA 10/23/18 07:50 IMPRESSION: Mild calcific plaque at the origins of both internal carotid arteries causing less than 50% narrowing. Hypodensity in the right lobe of the thyroid. Partial opacification of the left maxillary sinus and mucosal thickening of the right maxillary sinus. N.B. : The above information has been verbally conveyed by Erwin Miller to [facility] on 10/23/2018 09:03:09 (ET). Electronically Signed: Erwin Miller, at 9:04 EDT , Service support , ADDENDUM: 10/23/18 0911 IMPRESSION: Mild calcific plaque at the origins of both internal carotid arteries causing less than 50% narrowing. Hypodensity in the right lobe of the thyroid. Partial opacification of the left maxillary sinus and mucosal thickening of the right maxillary sinus. N.B. : The above information has been verbally conveyed by Ewrin Paul to Lane Pope on 10/23/2018 09:03:09 (ET). Electronically Signed: Erwin Paul, at 9:04 EDT , Service support , 10/23/18 07:48 Brain/Head without Contrast [CT] Stat 10/23/18 07:50 CTA Head W/WO Contrast [CT] Stat CTA Neck W/WO Contrast [CT] Stat Laboratory Results 10/23/18 10/23/18 10/23/18 07:42 07:45 07:45 WBC 8.4 RBC 5.30 Hgb 15.5 Hct 46.3 MCV 87.4 MCH 29.2 MCHC 33.5 RDW 13.6 RDW Differential 43.2 Plt Count 227 MPV 10.4 Immature Gran % (Auto) 0.400 Neut % (Auto) 48.0 Lymph % (Auto) 31.1 [place] % (Auto) 8.6 Eos % (Auto) 11.2 H Baso % (Auto) 0.7 Absolute Neuts (auto) 4.0 Absolute Lymphs (auto) 2.60 Total Counted Not Reportable PT 13.5 INR 1.1 APTT 30.4 Sodium Potassium Chloride Carbon Dioxide Anion Gap BUN Creatinine Estim Creat Clear Calc Est GFR (MDRD) Af Amer Est GFR (MDRD) Non-Af BUN/Creatinine Ratio Glucose Calcium POC Glucose 75 10/23/18 07:45 WBC RBC Hgb Hct MCV MCH MCHC RDW RDW Differential Plt Count MPV Immature Gran % (Auto) Neut % (Auto) Lymph % (Auto) [place] % (Auto) Eos % (Auto) Baso % (Auto) Absolute Neuts (auto) Absolute Lymphs (auto) Total Counted PT INR APTT Sodium 142 Potassium 4.3 Chloride 110 H Carbon Dioxide 25.0 Anion Gap 7 BUN 18 Creatinine 1.62 H Estim Creat Clear Calc 40.67 Est GFR (MDRD) Af Amer 53 L Est GFR (MDRD) Non-Af 44 L BUN/Creatinine Ratio 11.1 Glucose 112 H Calcium 8.5 POC Glucose - Rhythm Strip Rhythm Strip: Sinus Rhythm Rate: 62 Ectopy: None - EKG Initial EKG Interpretation: Sinus Rhythm - Ventricular rate 66. UT interval, QRS duration, QT interval and axis is normal. EKG is normal. - Medical Decision Making Stroke Team Activated: No - NIH is 1 IV TPA Administered: No Patient appearance has changed significant since last ER visit. I was informed by nurse that he is now complaining of nausea at the time of dictation and he is confused. He now commented he cannot wait for his birthday because he will turn 78. He answered that question appropriately when initially evaluated. Symptoms are concerning for right hemispheric stroke. With recent admission for perforated sigmoid diverticulitis need to entertain possibility of infectious etiology. He does have history of renal insufficiency. He was given a fluid bolus prior to ordering CTA of the head neck. Need to consider atypical presentation for brain abscess. Stroke order set was initiated. Patient will require admission. Patient was reevaluated at 0910. He now was able to follow commands. He has no deficits. Per my conversation with Dr. Weems the neuroradiologist patient has a distal partial obstruction of the lower branch M3 distribution right middle cerebral artery that is very distal. Patient will need workup for embolic phenomenon. Critical care time (excluding procedures): Discussion with neuroradiologist regarding results of CTA. 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
[2018-10-23 08:00] LABS: Basophil# 0.06 X10^3/uL; Basophil% 0.7 % (0-1); Eosinophil# 0.94 X10^3/uL; Eosinophils% 11.2 % (0-5); Hematocrit 46.3 % (40-54); Hemoglobin 15.5 g/dl (13.0-16.5); Lymphocyte % 31.1 % (19-41); Mean Corp Hgb Conc 33.5 g/gl (32-36); Mean Corpuscular Hgb 29.2 pg (27.0-32.0); Mean Corpuscular Volume 87.4 fL (80-94); Mean Platelet Vol. 10.4 fl (6.2-12.0); Monocyte# 0.72 X10^3/uL; Monocyte% 8.6 % (0-10); Neutrophil # 4.02 X10^3/uL (2.7-7.7); POSITIVE COUNT NO; POSITIVE DIFFERENTIAL NO; POSITIVE MORPHOLOGY NO; Platelet Count 227 K/mm3 (150-450); RBC Distribution Width CV 13.6 % (11.6-14.6); RBC Distribution Width SD 43.2 fl (35.1-43.9); White Blood Count 8.4 K/mm3 (4.4-11.0)
[2018-10-23] MEDS: Ondansetron 4 MG/2 ML Vial IV (08:02)
[2018-10-23 08:06] LABS: BUN 18 mg/dL (7-18); Creatinine, Serum 1.62 mg/dL (0.70-1.30); Estimated Creatinine Clearance 40.67 ml/min; Glucose 112 mg/dL (74-106)
[2018-10-23 08:07] LABS: Anion Gap 7 (5-15); BUN/Creat Ratio 11.1 RATIO (10-20); Calcium,Total 8.5 mg/dL (8.5-10.1); Chloride 110 mmol/L (98-107); EST Glomerular Filtration Rate 44 mL/min (>60); Est Glom Filt Rate - Afr Amer 53 mL/min (>60); Potassium 4.3 mmol/L (3.5-5.1); Sodium Level 142 mmol/L (136-145)
[2018-10-23 08:12] LABS: International Normalized Ratio 1.1; Prothrombin Time (Protime)PT. 13.5 SECONDS (11.7-14.9)
[2018-10-23 08:13] LABS: Partial Thromboplast Time 30.4 Seconds (24.1-36.2)
--- NOTE | 2018-10-23 09:01 | NURSING ---
HOSPITALIST FOR DR GRAYSON
--- NOTE | 2018-10-23 09:07 | HP.PCM_ITS ---
Problem List (1) TIA (transient ischemic attack) Status: Acute (2) CAD (coronary artery disease) Status: Chronic Qualifiers: Qualified Code(s): I25.10 - Atherosclerotic heart disease of [place] coronary artery without angina pectoris (3) CKD (chronic kidney disease) stage 3, GFR 30-59 ml/min Status: Chronic (4) Perforation of sigmoid colon due to diverticulitis Status: Chronic History of Present Illness Date of Admission: 10/23/18 Chief Complaint: Confusion, LLE weakness, LUE heaviness The patient is a 78 y/o M w/ PMHx: CAD s/p remote PCI, CKD stage III (baseline Cr 1.4-1.5), Prostate CA, Former Tobacco Use, Recent admission 10/11-10/14/18 following evaluation and treatment for diverticulitis with abscess formation with improvement with abx therapy only with slow diet advancement who now re- presents to the [facility] ED on 10/23/18 with history of onset at abruptly 6:50 am L sided lower extremity weakness while walking from restroom, his leg suddenly gave out with concurrent confusion noted per spouse and additional noted onset LUE heaviness upon ED presentation, all of which resolved while in the ED. ED physician noted that he was answering any NIHSS questions correctly but then would say inappropriate things but this has also since resolved. In the emergency room also noted that he did have labile mood with crying and was staring off into space for prolonged amount of time prior to resolution. Work-up in the ED included CBC with WBC 8.4, hemoglobin 15.5, platelet 227 without market shift with increased eosinophil percent, unremarkable coags, BMP with chloride 110, BUN/Cr 18/1.62, glucose 112, CT brain with no acute CT evidence of intracranial bleeding, acute ischemic infarct or acute intracranial abnormality with chronic subcortical white matter ischemic changes in both cerebral hemispheres, EKG w/ this rhythm with no acute evidence of ischemia, CTA head w/ normal [place] without a demonstrated aneurysm or hemodynamically significant stenosis, CTA neck w/ mild calcific plaque at the origins of both internal carotid arteries causing less than 50% narrowing, hypodensity in the right lobe of the thyroid, partial opacification of the left maxillary sinus and mucosal thickening of the right maxillary sinus. In the ED patient administered normal saline, Zofran. Past Medical History Past Medical History (Chronic Problems): Chronic Problems (Last Reviewed 10/23/18 @ 12:54 by Tia Meeks) Perforation of sigmoid colon due to diverticulitis (Chronic) CAD (coronary artery disease) (Chronic) CKD (chronic kidney disease) stage 3, GFR 30-59 ml/min (Chronic) Medical History: Medical History (Last Reviewed 10/23/18 @ 12:54 by Tia Meeks) Prostate cancer C61 Allergies No Known Allergies Allergy (Verified 10/10/18 21:51) Home Medications: Ambulatory Orders Medication Instructions Recorded Aspirin [Aspirin, Baby] 81 mg PO DAILY 10/10/18 Cholecalciferol (Vitamin D3) 2,000 unit PO DAILY 10/10/18 [Vitamin D3] Amoxicillin/Potassium Clav 1 each PO BID #21 tablet 10/14/18 [Augmentin 875-125 Tablet] Surgical History: Surgical History (Last Updated 10/11/18 @ 17:10 by Aria Guevara MD) History of heart artery stent Z95.5 Surgical History: cholecystectomy, herniorrhaphy - RIH x 2 open, tonsillectomy, - - Remote PCI, Prostate CA seed insertion, L achilles repair, Deviated septum repair, cholecystectomy, tonsillectomy, hernia repair (RIH x 2 open). Psychiatric History: No pertinent psych hx Lives: Spouse/ Significant Other Smoking Status: Former smoker - Patient quit approximately 30 years prior, pipe to use at that time, occasional. Tobacco Use: Non-smoker Alcohol: Occasional Drugs: None - *Family History Maternal History Items: - - Patient notes that mother lived to the age of 104 and had no market medical history including heart disease, diabetes, cancer. Paternal History Items: - - Patient notes that his father at age 55 secondary to complications of heart disease and was a very avid tobacco user. Review of Systems Constitutional: Reports: Anorexia, Malaise, Weakness, Fatigue. Denies: Chills, Fever, Weight Change HEENT: Denies: Head Aches, Sinus Congestion, Sinus Drainage Cardiovascular: Denies: Chest Pain, Palpitations Respiratory: Denies: Cough, Shortness of breath at rest, Sputum production Gastrointestinal: Reports: - - Resolved currently but prior abdominal pain with recent diverticulitis with abscess.. Denies: Abdominal Pain, Nausea, Vomiting Genitourinary: Denies: Dysuria Musculoskeletal: Denies: Joint Pain, Joint Tenderness Skin: Denies: Rash, Wounds Neurological: Reports: Confusion, Focal weakness, Incoordination. 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 Objective: Physical Examination: General: awake, alert, oriented x 3/4, did get place, month, president but did give incorrect year initially, cooperative, seated upright in that side chair in the PCU, no acute distress, notes that he does occasional gave wrong information and can be forgetful but this is been going on for a long time. Skin: normal color, turgor, no icterus, cyanosis. HEENT: AT/NC, EOMI, PERRLA, MMM, no carotid bruits or JVD noted. Lungs: CTA bilaterally, moderate effort, mild decrease BL bases, no rales, ronchi or wheezing. Heart: Regular rate and rhythm; no gallop, rub audible. Abdomen: soft, overweight, NTTP, ND, normal BS, no HSM. Extremities: no cyanosis, clubbing, or edema. Neurological: patient awake, alert, oriented x 3/4, did get place, month, president but did give incorrect year initially; cognitive function intact; pupils equally reactive to light and accomodation; cranial nerves II-XII grossly normal, moving all 4 extremities, no focal deficits, strength preserved sensation intact, negative Babinski, FTN and HTS appropriate. Psychiatric: affect appears normal, no acute evidence of depressive or anxiety feelings. - Physical Exam Vital Signs Temp Pulse Resp BP Pulse Ox 97.9 F 65 15 139/82 H 99 10/23/18 07:36 10/23/18 08:39 10/23/18 08:39 10/23/18 08:39 10/23/18 08:39 Oxygen Flow Rate (L/min) 2 Oxygen Delivery Method Nasal Cannula Weight: 225 lb 8.526 oz Body Mass Index (BMI) 31.4 Finger Stick Blood Glucose 75 Laboratory Tests Past 24 Hrs 10/23/18 10/23/18 10/23/18 07:45 07:45 07:45 WBC 8.4 RBC 5.30 Hgb 15.5 Hct 46.3 MCV 87.4 MCH 29.2 MCHC 33.5 RDW 13.6 RDW Differential 43.2 Plt Count 227 MPV 10.4 Immature Gran % (Auto) 0.400 Neut % (Auto) 48.0 Lymph % (Auto) 31.1 [place] % (Auto) 8.6 Eos % (Auto) 11.2 H Baso % (Auto) 0.7 Absolute Neuts (auto) 4.0 Absolute Lymphs (auto) 2.60 Total Counted Not Reportable PT 13.5 INR 1.1 APTT 30.4 Sodium 142 Potassium 4.3 Chloride 110 H Carbon Dioxide 25.0 Anion Gap 7 BUN 18 Creatinine 1.62 H Estim Creat Clear Calc 40.67 Est GFR (MDRD) Af Amer 53 L Est GFR (MDRD) Non-Af 44 L BUN/Creatinine Ratio 11.1 Glucose 112 H Calcium 8.5 POC Glucose 10/23/18 07:42 POC Glucose 75 Assessment/Plan All Active Problems (Last Reviewed 10/23/18 @ 12:54 by Tia Meeks) TIA (transient ischemic attack) (Acute) 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 ED on 10/23/18 with history of onset at abruptly 6:50 am L sided lower extremity weakness while walking from restroom, his leg suddenly gave out with concurrent confusion noted per spouse and additional noted onset LUE heaviness upon ED presentation, all of which resolved while in the ED. (1) L sided Weakness, Paresthesias, Confusion Transiently w/ ? Lower branch M3 artery, partial occlusion secondary to embolic phenomenon concerning for TIA: Work-up in the ED included CBC with WBC 8.4, hemoglobin 15.5, platelet 227 without market shift with increased eosinophil percent, unremarkable coags, BMP with chloride 110, BUN/Cr 18/1.62, glucose 112, CT brain with no acute CT evidence of intracranial bleeding, acute ischemic infarct or acute intracranial abnormality with chronic subcortical white matter ischemic changes in both cerebral hemispheres, EKG w/ sinus rhythm with no acute evidence of ischemia, C TA head w/ normal [place] without a demonstrated aneurysm or hemodynamically significant stenosis, CTA neck w/ mild calcific plaque at the origins of both internal carotid arteries causing less than 50% narrowing, hypodensity in the right lobe of the thyroid, partial opacification of the left maxillary sinus and mucosal thickening of the right maxillary sinus. 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 Allergy consultation performed. Will allow permissive HTN for 24 hours and continue hydration to avoid hypotension, maintain on asa and add plavix therapy with plan for 3-month duration with then switched to single agent, added moderate dose statin atorvastatin 40 mg w/ AM FLP pending, fall precautions. Mag 2.4, TSH 1.64 with a normal free T4. Hemoglobin A1c 6.1%. Requested over-read to imaging given neuroradiologist discussion with the ED for possible lower branch and 3 artery partial occlusion suspicious for embolic phenomenon. Will continue telemetry monitoring and plan discharge to home in a.m. if appropriate with plan to follow-up with neurology in 2 3 weeks as an outpatient. (2) Incidental hypodensity right lobe thyroid: CT neck w/ noted 2.5 cm x 2.2 cm hypodensity in the right lobe of the thyroid suggestive of goiter as change. TSH, Free T4 was normal, thyroid US will need to be obtained outpatient. (3) Recent Diverticulitis w/ Abscess: Recently admitted 10/11/18-10/14/18, will co feliciano update surgeon on current presentation, repeat CT scans done during this admission prior admission had demonstrated resolution of abscess with thickening of the sigmoid colon consistent with diverticulitis with improvement clinically, normalization of labs, stable renal function, transition to a full liquid diet and advance to low fiber diet outpatient with plan follow-up in 2 weeks with co ntinuation of low fiber for approximately 6 weeks with plan to see scope in 6-8 weeks, continue Augmentin therapy. Patient surgeon updated to current presentation. (4) CAD: Noted remote PCI, maintain on asa, added plavix pending Neurology assessment, add moderate dose atorvastatin additionally as noted, BP normal, defer BB addition. (5) CKD stage III: Admission BUN/Cr 18/1.62, baseline Cr 1.4-1.5, trend, gently hydrating. (6) DVT prophylaxis: SCDs, renally dosed lovenox. Code Visit OBSV E&M: [id number] Initial observation care L3
--- NOTE | 2018-10-23 09:18 | NURSING ---
DR DRE DILLON
--- NOTE | 2018-10-23 09:35 | NURSING ---
ICU SEMENTI SHOCK UNDIFFERENTIATED, LACTIC ACIDOSIS, PANCREATITIS, ALCOHOLISM
--- NOTE | 2018-10-23 10:09 | MRI_ITS ---
STUDY: MRI BRAIN WITHOUT CONTRAST REASON FOR EXAM: Male, 78 years old. CVA, left leg weakness. History of prostate cancer TECHNIQUE: Standardized multiplanar fat and water weighted pulse sequences were obtained. COMPARISON: CT head 10/23/2018. FINDINGS: There is mild cerebral atrophy with widening of the extra-axial spaces and ventricular dilatation. There are multiple white matter hyperintensities, distributed throughout the deep white matter tracts of the cerebral hemispheres, consistent with moderate chronic white matter ischemic changes. There are chronic bilateral basal ganglia lacunar infarcts. Normal thalami. There is no extra-axial fluid accumulation. Normal flow voids within the major intracranial circulation suggesting patency by spin echo criteria. Normal sella turcica, pituitary gland, infundibular stalk, optic chiasm and hypothalamus. Normal tectal plate and pineal gland. Normal midbrain, [place] and medulla. Normal cerebellum. Normal basal cisterns. Normal bilateral temporal bones. Normal bilateral internal auditory canals. No demonstrated orbital abnormality, within the constraints of a routine brain study. There is a large left maxillary sinus retention cyst and small right maxillary retention cyst. Normal calvarium and skull base. Normal visualized soft tissue structures. Normal visualized upper cervical spine. MRI/Brain without Contrast IMPRESSION: No acute intracranial abnormality. Chronic findings are described above. Bilateral maxillary sinus retention cysts. Electronically Signed: Katalina Blackmon, at 13:13 EDT Tel , Service support ,
--- NOTE | 2018-10-23 10:09 | ECHOCS_ITS ---
Reason For Study: TIA/STROKE Procedure This was a 2D Doppler, Color Flow transthoracic echocardiogram. The study was technically difficult. Contrast injection was performed. Exam performed portable in patient room. Left Ventricle Normal LV size. Mild concentric left ventricular hypertrophy. Left ventricular systolic function is normal. The estimated ejection fraction is 60 %. No evidence for diastolic dysfunction. No regional wall motion abnormalities noted. Right Ventricle Normal RV size. Normal systolic function. Atria The left atrium is moderately enlarged. Normal right atrium. No doppler evidence for ASD. Bubble contrast study negative for right to left interatrial shunt. Mitral Valve There is no mitral annular calcification. Normal mitral valve. Mild (1+) mitral valve insufficiency. Tricuspid Valve Normal tricuspid valve. Trivial tricuspid valve insufficiency. Right ventricular systolic pressure estimated to be 25 mmHg. Aortic Valve Trisinus/trileaflet aortic valve. Normal aortic valve. Pulmonic Valve The pulmonic valve is not well visualized. Trivial pulmonic valve insufficiency. Great Vessels Normal sized aortic root. Pericardium/Pleural No pericardial effusion. Medication Diluted definity 2ml given slow IV push to enhance endocardial definition. Performed a rapid injection of agitated mix of 9 cc saline and 1cc air to assess for atrial septal defect. MMode/2D Measurements & Calculations LVIDd: 4.4 cm IVSd: 1.4 cm Ao root diam: 3.9 cm LVIDs: 3.1 cm LVPWd: 1.3 cm FS: 30.3 % LAV(MOD-bp): 86.8 ml LA A4 area: 27.1 cm2 RA A4 area: 17.8 cm2 LAV(MOD-bp) Indexed: 40.0 ml/m2 LAV(MOD-sp2): 76.4 ml LAV(MOD-sp4): 90.5 ml Time Measurements MV dec time: 0.24 sec Doppler Measurements & Calculations MV E max rasheed: 83.8 cm/sec Lat Peak E' Rasheed: 9.7 cm/sec Med Peak E' Rasheed: 7.9 cm/sec MV A max rasheed: 88.3 cm/sec E/E' lat: 8.6 E/E' med: 10.6 MV E/A: 0.95 MV V2 max: 99.2 cm/sec MV P1/2t max rasheed: 87.6 cm/sec Ao V2 max: 117.0 cm/sec MV max P.9 mmHg MV P1/2t: 79.2 msec Ao max P.5 mmHg MV V2 mean: 54.0 cm/sec MV dec slope: 324.2 cm/sec2 MV mean P.3 mmHg MV V2 VTI: 32.6 cm MVA(P1/2t): 2.8 cm2 AI max rasheed: 431.4 cm/sec LV V1 max: 118.6 cm/sec PA V2 max: 89.6 cm/sec AI max P.5 mmHg LV V1 max P.6 mmHg AI dec slope: 196.2 cm/sec2 AI P1/2t: 644.2 msec PI dec slope: 127.1 cm/sec2 TR max rasheed: 233.2 cm/sec TR max P.8 mmHg Interpretation Summary The study was technically difficult. Contrast injection was performed. Left ventricular systolic function is normal. The estimated ejection fraction is 60 %. Mild concentric left ventricular hypertrophy. The left atrium is moderately enlarged. Mild (1+) mitral valve insufficiency. Trivial tricuspid valve insufficiency. Trivial pulmonic valve insufficiency. Right ventricular systolic pressure estimated to be 25 mmHg. No evidence for diastolic dysfunction. Bubble contrast study negative for right to left interatrial shunt. Ordering Physician: Sarah Hsu Referring Physician: Jazlyn Richard M.D. Performed By: Karl Stubbs RCS
[2018-10-23] MEDS: Enoxaparin 30 MG/0.3 ML Syringe SC (10:43)
[2018-10-23] MEDS: 0.9% Normal Saline 1,000 ML 100 ML IV ×3 (10:43→22:40)
[2018-10-23] MEDS: Aspirin 81 MG TAB.CHEW PO (10:43)
[2018-10-23] MEDS: Amox/Clavulanate 875 MG Tablet PO ×2 (10:43→22:37)
[2018-10-23] MEDS: Clopidogrel Bisulfate 75 MG Tablet PO (10:43)
[2018-10-23 10:56] LABS: Hemoglobin A1c 6.1 % (4.2-6.3)
[2018-10-23 10:58] LABS: Magnesium 2.4 mg/dL (1.6-2.6); T4 Free Direct 1.01 ng/dL (0.76-1.46); Thyroid Stim Hormone (TSH) 1.64 uIU/mL (0.358-3.74)
--- NOTE | 2018-10-23 15:26 | CON.PCM_ITS ---
Problem List (1) TIA (transient ischemic attack) Status: Acute Reason for Consult Date of Consultation: 10/23/18 Reason for Consultation: TIA History of Present Illness: The patient is a 78 year old M with PMH CAD status post stents, CKD, prostate cancer, recent admission in September 2018 for diverticulitis with abscess formation with improvement with antibiotic therapy admitted with acute onset left-sided weakness leg worse than the arm. Per patient he woke up and around 7 AM this morning 10/23/2018 noticed to have acute left lower extremity weakness and his leg gave out while walking, he also felt that his left arm was heavy and weak, per the recommendation of the ED notes he also had episodes of confusion, on admission to the ED [facility] was documented to be 1, his symptoms later resolved in the ED per documentation. Per patient his symptoms were to have lasted for about 45 minutes. At present he denies any headache dizziness focal motor weakness sensory loss visual disturbances or speech disturbances. Per patient hector danielle was on aspirin 81 mg at baseline but he had stopped taking it for the past 3-4 days after seeing an add on the TV. Patient lives with his , does drive denies any frequent falls, does not use any cane or walker to ambulate and does not need any assistance for his ADLs. CT angiogram head/neck reported to show suspicious for decreased flow in the right M2/M3 segment of the right MCA. MRI brain did not report to show any acute stroke. [] Past Medical History Past Medical History (Chronic Problems): Chronic Problems (Last Reviewed 10/23/18 @ 12:54 by Tia Meeks) Perforation of sigmoid colon due to diverticulitis (Chronic) CAD (coronary artery disease) (Chronic) CKD (chronic kidney disease) stage 3, GFR 30-59 ml/min (Chronic) Medical History: Medical History (Last Reviewed 10/23/18 @ 12:54 by Tia Meeks) Prostate cancer C61 Allergies No Known Allergies Allergy (Verified 10/10/18 21:51) Home Medications: Ambulatory Orders Medication Instructions Recorded Aspirin [Aspirin, Baby] 81 mg PO DAILY 10/10/18 Cholecalciferol (Vitamin D3) 2,000 unit PO DAILY 10/10/18 [Vitamin D3] Amoxicillin/Potassium Clav 1 each PO BID #21 tablet 10/14/18 [Augmentin 875-125 Tablet] Surgical History: Surgical History (Last Updated 10/11/18 @ 17:10 by Aria Guevara MD) History of heart artery stent Z95.5 Surgical History: cholecystectomy, herniorrhaphy - RIH x 2 open, tonsillectomy, - - Remote PCI, Prostate CA seed insertion, L achilles repair, Deviated septum repair, cholecystectomy, tonsillectomy, hernia repair (RIH x 2 open). Psychiatric History: No pertinent psych hx Lives: Spouse/ Significant Other Smoking Status: Former smoker Tobacco Use: Non-smoker Drugs: None - *Family History Maternal History Items: No pertinent history Paternal History Items: - - Patient notes that his father at age 55 secondary to complications of heart disease and was a very avid tobacco user. 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 Psych/Mental Status: Normal Affect Vital Signs Temp Pulse Resp BP Pulse Ox 97.7 F L 57 L 16 130/74 H 96 10/23/18 10:45 10/23/18 11:00 10/23/18 10:45 10/23/18 10:45 10/23/18 10:45 Oxygen Flow Rate (L/min) 2 Oxygen Delivery Method Room Air Weight: 97.069 kg Body Mass Index (BMI) 29.8 Finger Stick Blood Glucose 75 Intake and Output for Last 24 Hours 10/21/18 10/22/18 10/23/18 23:59 23:59 23:59 Intake Total 223 / 223 Output Total 400 / 400 Balance -177 / -177 Laboratory Tests Past 24 Hrs 10/23/18 10/23/18 10/23/18 07:45 07:45 07:45 WBC 8.4 RBC 5.30 Hgb 15.5 Hct 46.3 MCV 87.4 MCH 29.2 MCHC 33.5 RDW 13.6 RDW Differential 43.2 Plt Count 227 MPV 10.4 Immature Gran % (Auto) 0.400 Neut % (Auto) 48.0 Lymph % (Auto) 31.1 [place] % (Auto) 8.6 Eos % (Auto) 11.2 H Baso % (Auto) 0.7 Absolute Neuts (auto) 4.0 Absolute Lymphs (auto) 2.60 Total Counted Not Reportable PT 13.5 INR 1.1 APTT 30.4 Sodium 142 Potassium 4.3 Chloride 110 H Carbon Dioxide 25.0 Anion Gap 7 BUN 18 Creatinine 1.62 H Estim Creat Clear Calc 40.67 Est GFR (MDRD) Af Amer 53 L Est GFR (MDRD) Non-Af 44 L BUN/Creatinine Ratio 11.1 Glucose 112 H Hemoglobin A1c Calcium 8.5 Magnesium TSH Free T4 10/23/18 10/23/18 07:45 07:45 WBC RBC Hgb Hct MCV MCH MCHC RDW RDW Differential Plt Count MPV Immature Gran % (Auto) Neut % (Auto) Lymph % (Auto) [place] % (Auto) Eos % (Auto) Baso % (Auto) Absolute Neuts (auto) Absolute Lymphs (auto) Total Counted PT INR APTT Sodium Potassium Chloride Carbon Dioxide Anion Gap BUN Creatinine Estim Creat Clear Calc Est GFR (MDRD) Af Amer Est GFR (MDRD) Non-Af BUN/Creatinine Ratio Glucose Hemoglobin A1c 6.1 Calcium Magnesium 2.4 TSH 1.64 Free T4 1.01 POC Glucose 10/23/18 07:42 POC Glucose 75 Assessment/Plan All Active Problems (Last Reviewed 10/23/18 @ 12:54 by Tia Meeks) TIA (transient ischemic attack) (Acute) 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 (Acute) The patient is a 78 year old M with PMH CAD status post stents, CKD, prostate cancer, recent admission in September 2018 for diverticulitis with abscess formation with improvement with antibiotic therapy admitted with acute onset left-sided weakness leg worse than the arm. Per patient he woke up and around 7 AM this morning 10/23/2018 noticed to have acute left lower extremity weakness and his leg gave out while walking, he also felt that his left arm was heavy and weak, per the recommendation of the ED notes he also had episodes of confusion, on admission to the ED [facility] was documented to be 1, his symptoms later resolved in the ED per documentation. Per patient his symptoms were to have lasted for about 45 minutes. At present he denies any headache dizziness focal motor weakness sensory loss visual disturbances or speech disturbances. Per patient he was on aspirin 81 mg at baseline but he had stopped taking it for the past 3- 4 days after seeing an add on the TV. Patient lives with his , does drive denies any frequent falls, does not use any cane or walker to ambulate and does not need any assistance for his ADLs. CT angiogram head/neck reported to show suspicious for decreased flow in the right M2/M3 segment of the right MCA. MRI brain did not report to show any acute stroke. Impression TIA Plan ?Aspirin 81 mg once daily and Plavix 75 mg p.o. once daily. Continue dual antiplatelets for 3 months. Then switch to single antiplatelet with aspirin. Bleeding risk discussed in detail with patient. ?Lipitor 40 mg p.o. nightly ?MRI brain report reviewed?no acute stroke ?CT angiogram head/neck report reviewed?suspicious for decreased flow in the right M2/M3 segment of the right MCA ?Check LDL, TTE ?HbA1c?6.1 ?Permissive hypertension for the initial 24 hours. Avoid hypotension -Recommend 30 day event recorder ?Avoid dehydration ?PT/OT ?Fall precautions ?Further medical management per hospitalist team ?Follow-up with neurology in 2-3 weeks as outpatient ?Please call with questions if any ?Thank you for allowing us to participate in patient's care and management Code Visit Inpatient E&M: 66016 Init Hosp L3
[2018-10-23] MEDS: Atorvastatin Calcium 40 MG Tablet PO (22:37)
[2018-10-24] VITALS (7 sets, daily range): BP systolic 106–123; BP diastolic 62–72; PULSE 46–58; RESP 14–16; TEMP 36.4–36.6; O2SAT 96–98; BMI 29.8
[2018-10-24 05:50] LABS: Cholesterol 191 mg/dL (200); High Density Lipoprotein 32 mg/dL; Triglycerides 131 mg/dL; Very Low Density Lipoprotein 26 mg/dL (5-40)
[2018-10-24] MEDS: Amox/Clavulanate 875 MG Tablet PO (09:11)
[2018-10-24] MEDS: Aspirin 81 MG TAB.CHEW PO (09:11)
[2018-10-24] MEDS: Clopidogrel Bisulfate 75 MG Tablet PO (09:11)
[2018-10-24] MEDS: Enoxaparin 30 MG/0.3 ML Syringe SC (09:11)
--- NOTE | 2018-10-24 10:51 | CASEMGMT ---
SW completed PHQ 9 with patient. He scored a 0. Resources were not given to patient as it does not appear to be needed. Jenny SALINAS MSW
--- NOTE | 2018-10-24 11:00 | DCINST_ITS ---
- Discharge Diagnoses Current Active Problems: Current Active and Chronic Problems (Last Reviewed 10/23/18 @ 12:54 by Tia Meeks) (1) L sided Weakness, Paresthesias, Confusion Transiently w/ Lower branch M3 artery, partial occlusion secondary to embolic phenomenon concerning for TIA (2) Incidental hypodensity right lobe thyroid (normal FT4, TSH) (3) Recent Diverticulitis w/ Abscess (4) CAD (5) CKD stage III You will use the following diet at home:: Cardiac Your food should be the consistency of: Regular Your liquids should be the consistency of: Regular/Thin Discharge Activity: - - Avoid aggressive activity or usage of heavy machinery until re-evaluation per Neurology and cleared as well as completion of event monitoring. May resume sexual activity in: 1-2 weeks Weight Bearing Status: Weight bearing as tolerated Call your doctor if you observe: Fever of 101 or Higher, Inability to urinate, Inability to have a bowel movement, Shortness of breath, Dizziness, Fainting spells, Chest pain, Uncontrolled pain, - - Recurrent neurological symptoms. Instructions: What Is a TIA?, Discharge Instructions for Transient Ischemic Attack (TIA) Allergies/Adverse Reactions: Allergies No Known Allergies Allergy (Verified 10/10/18 21:51) Medications to take at Discharge Aspirin [Aspirin, Baby] 81 mg PO DAILY 10/10/18 Cholecalciferol (Vitamin D3) [Vitamin D3] 2,000 unit PO DAILY 10/10/18 Amoxicillin/Potassium Clav [Augmentin 875-125 Tablet] 1 each PO BID #21 tablet 10/14/18 Atorvastatin Calcium [Lipitor] 40 mg PO QHS #30 tablet 10/24/18 Clopidogrel Bisulfate [Plavix] 75 mg PO DAILY #30 tablet 10/24/18 The following prescriptions were given: Atorvastatin Calcium [Lipitor] 40 mg PO QHS #30 tablet Clopidogrel Bisulfate [Plavix] 75 mg PO DAILY #30 tablet Orders to be completed after discharge: 30-Day Event Recorder [[facility]] Time Frame: 1 Day, Location: None Selected Primary Care Physician: Jazlyn Richard DO [Primary Care Provider] - Please follow up with your Primary Care Physician in: Follow-up in 3-5 days to review the admission. Test Results: Test results from this visit will be discussed in further detail at your follow- up appointment, if applicable. Please Follow Up With: Gregg Goodwin MD When: Follow-up 2-3 weeks. Proposed Discharge Date: 10/24/18
--- NOTE | 2018-10-24 11:02 | DS.PCM_ITS ---
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 (Acute) Date of Admission: 10/23/18 Date of Discharge: 10/24/18 - Primary Discharge Diagnosis Active and Suspected Problems (Last Reviewed 10/23/18 @ 12:54 by Tia Meeks) (1) L sided Weakness, Paresthesias, Confusion Transiently w/ Lower branch M3 artery, partial occlusion secondary to embolic phenomenon concerning for TIA (2) Incidental hypodensity right lobe thyroid (normal FT4, TSH) (3) Recent Diverticulitis w/ Abscess (4) CAD (5) CKD stage III - Secondary Discharge Diagnosis Chronic Problems (Last Reviewed 10/23/18 @ 12:54 by Tia Meeks) Perforation of sigmoid colon due to diverticulitis (Chronic) CAD (coronary artery disease) (Chronic) CKD (chronic kidney disease) stage 3, GFR 30-59 ml/min (Chronic) Hospital Course and Treatment Dr. Goodwin Neurology Operations: None Procedures: 2-D Echocardiogram, EKG Summary of Care Provided: The patient is a 78 y/o M w/ PMHx: CAD s/p remote PCI, CKD stage III (baseline Cr 1.4-1.5), Prostate CA, Former Tobacco Use, Recent admission 10/11-10/14/18 following evaluation and treatment for diverticulitis with abscess formation with improvement with abx therapy only with slow diet advancement who now re- presented to the [facility] ED on 10/23/18 with history of onset at abruptly 6:50 am L sided lower extremity weakness while walking from restroom, his leg suddenly gave out with concurrent confusion noted per spouse and additional noted onset LUE heaviness upon ED presentation, all of which resolved while in the ED. Work- up in the ED included CBC with WBC 8.4, hemoglobin 15.5, platelet 227 without market shift with increased eosinophil percent, unremarkable coags, BMP with chloride 110, BUN/Cr 18/1.62, glucose 112, CT brain with no acute CT evidence of intracranial bleeding, acute ischemic infarct or acute intracranial abnormality with chronic subcortical white matter ischemic changes in both cerebral hemispheres, EKG w/ sinus rhythm with no acute evidence of ischemia, CTA head w/ normal [place] without a demonstrated aneurysm or hemodynamically significant stenosis, CTA neck w/ mild calcific plaque at the origins of both internal carotid arteries causing less than 50% narrowing, hypodensity in the right lobe of the thyroid, partial opacification of the left maxillary sinus and mucosal thickening of the right maxillary sinus. 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 Allergy consultation performed. Will allow permissive HTN for 24 hours and continue hydration to avoid hypotension, maintain on asa and add plavix therapy with plan for 3-month duration with then switched to single agent, added moderate dose statin atorvastatin 40 mg w/ AM FLP pending, fall precautions. Mag 2.4, TSH 1.64 with a normal free T4. Hemoglobin A1c 6.1%. Requested over-read to imaging given neuroradiologist discussion with the ED for possible lower branch and 3 artery partial occlusion suspicious for embolic phenomenon. Maintained on telemetry monitoring with event; however, concerns given CT over-reading per Neuroradiology thus event monitoring set-up at discharge per discussion with Neurology. Incidental hypodensity right lobe thyroid as noted per CT imaging w/ TSH, Free T4 both normal with recommendation outpatient PCP directed thyroid US and further work-up/evaluation. Of note, patient recently admitted 10/11/18- 10/14/18, updated surgeon on current presentation, maintained on his abx regimen and recommended continued outpatient follow-up. Patient discharged to home in stable improved condition with follow-up with PCP as well as Neurology. DAY OF DISCHARGE PROGRESS NOTE: Subjective: Patient without acute event overnight per self and nursing report. Patient had no recurrent neurological symptoms. Patient denies fever, chills, nausea, emesis, abdominal pain, chest pain or dyspnea. Patient agreeable to discharge to home. Patient will be discharged with follow-up with primary care physician within 3-5 days in addition to Neurology in 2-3 weeks. Objective: T 97.9, heart rate 58, BP 123/70, respiratory rate 14, 96% on room air. Physical Examination: General: awake, alert, oriented x 3, cooperative, seated upright in bed, NAD. Skin: normal color, turgor, no icterus, cyanosis. HEENT: AT/NC, EOMI, PERRLA, MMM. Lungs: CTA bilaterally, moderate effort, mild decrease BL bases, no rales, ronchi or wheezing. Heart: Regular rate and rhythm; no gallop, rub audible. Abdomen: soft, overweight, NTTP, ND, normal BS. Extremities: no cyanosis, clubbing, or edema. Neurological: patient awake, alert, oriented x 3; cognitive function intact, confirmed per spouse; pupils equally reactive to light and accomodation; cranial nerves II-XII grossly normal, moving all 4 extremities, no focal deficits, strength preserved, sensation intact, negative Babinski, FTN and HTS appropriate. Psychiatric: affect appears normal, no acute evidence of depressive or anxiety feelings. Assessment and Plan: Please see hospital summary above. Patient Problems: Active and Suspected Problems (Last Reviewed 10/23/18 @ 12:54 by Tia Meeks) TIA (transient ischemic attack) (Acute) 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 (Acute) - Physical Exam Vital Signs Temp Pulse Resp BP Pulse Ox 97.9 F 58 L 14 123/70 H 96 10/24/18 10:15 10/24/18 10:15 10/24/18 10:15 10/24/18 10:15 10/24/18 10:15 Oxygen Flow Rate (L/min) 2 Oxygen Delivery Method Room Air Weight: 214 lb Body Mass Index (BMI) 29.8 Finger Stick Blood Glucose 75 Intake and Output for Last 24 Hours 10/22/18 10/23/18 10/24/18 23:59 23:59 23:59 Intake Total 1153 / 1153 Output Total 400 / 400 Balance 753 / 753 Laboratory Tests Past 24 Hrs 10/24/18 05:00 Triglycerides 131 Cholesterol 191 LDL Cholesterol 133 H VLDL Cholesterol 26 HDL Cholesterol 32 L Discharge Activity: - - Avoid aggressive activity or usage of heavy machinery until re-evaluation per Neurology and cleared as well as completion of event monitoring. May resume sexual activity in: 1-2 weeks Weight Bearing Status: Weight bearing as tolerated Call your doctor if you observe: Fever of 101 or Higher, Inability to urinate, Inability to have a bowel movement, Shortness of breath, Dizziness, Fainting spells, Chest pain, Uncontrolled pain, - - Recurrent neurological symptoms. Home Medications: Medications to take at Discharge Aspirin [Aspirin, Baby] 81 mg PO DAILY 10/10/18 Cholecalciferol (Vitamin D3) [Vitamin D3] 2,000 unit PO DAILY 10/10/18 Amoxicillin/Potassium Clav [Augmentin 875-125 Tablet] 1 each PO BID #21 tablet 10/14/18 Atorvastatin Calcium [Lipitor] 40 mg PO QHS #30 tablet 10/24/18 Clopidogrel Bisulfate [Plavix] 75 mg PO DAILY #30 tablet 10/24/18 Following Prescrptions Were Given to Patient: Atorvastatin Calcium [Lipitor] 40 mg PO QHS #30 tablet Clopidogrel Bisulfate [Plavix] 75 mg PO DAILY #30 tablet Other Amb Orders: 30-Day Event Recorder [[facility]] Time Frame: 1 Day, Location: None Selected Primary Care Physician: Jazlyn Richard DO [Primary Care Provider] - Please follow up with your Primary Care Physician in: Follow-up in 3-5 days to review the admission. Please Follow Up With: Gregg Goodwin MD When: Follow-up 2-3 weeks. Patient Instructions: What Is a TIA?, Discharge Instructions for Transient Isc hemic Attack (TIA) Disposition: Home Minutes spent on discharge:: 35 Patient Condition:: Fair Medical Necessity - Tobacco Use Smoking Status: Former smoker Tobacco Use: Non-smoker Meaningful Use Info Meaningful Use Diagnoses (Choose all that apply): None applicable Code Visit OBSV E&M: 57408 Observation care discharge
== END 2018-10-24 10:29 | disposition home or self-care (01) ==
LOC: ED 09:28 → PCU 15:46
PROVIDERS: Admitting Provider Family Medicine; Emergency Provider Emergency Medicine; Family Provider Internal Medicine; PCP Internal Medicine; Visit Provider Family Medicine
DX: I63.411 Cerebral infarction due to embolism of right middle cerebral artery (principal); G81.94 Hemiplegia, unspecified affecting left nondominant side; I25.10 Atherosclerotic heart disease of native coronary artery without angina pectoris; N18.3 Chronic kidney disease, stage 3 (moderate); Z87.891 Personal history of nicotine dependence; Z87.19 Personal history of other diseases of the digestive system; Z79.82 Long term (current) use of aspirin; Z85.46 Personal history of malignant neoplasm of prostate; I08.1 Rheumatic disorders of both mitral and tricuspid valves; R20.0 Anesthesia of skin; R41.0 Disorientation, unspecified; J34.1 Cyst and mucocele of nose and nasal sinus; R11.0 Nausea
CPT/HCPCS: 36415; 70450; 70496; 70498; 70551; 80048; 80061; 82962; 83036; 83735; 84439; 84443; 85025; 85610; 85730; 93005; 93306; 96361; 96372; 96374; 97161; 97166; 99218; 99285; J7030; J7040; Q9957; Q9967; A4216; C8929; G0378; J2405

== ENCOUNTER 2018-10-26 07:18 | Emergency (ER) | payer MEDICARE, SELFPAY ==
[2018-10-24 11:59] VITALS: BMI 29.8
[2018-10-26 07:18] VITALS: BP 161/90; PULSE 62; RESP 18; TEMP 36.6; O2SAT 98; BMI 30.4
--- NOTE | 2018-10-26 07:23 | ED.RN ---
PT CURRENTLY WEARING A 30 DAY EVENT MONITOR. STATES PAIN AT TIMES FEELS LIKE WHEN HE HAD AN NH. CALLED FOR EKG. PT MOVED TO ROOM. REMAINED TO ANSWER FINAL QUESTIONS
--- NOTE | 2018-10-26 07:30 | CT_ITS ---
STUDY: CT ABDOMEN AND PELVIS WITH CONTRAST REASON FOR EXAM: Male, 78 years old. Epigastric pain RADIATION DOSAGE (If Supplied By Facility): CTDIvol = ( 18.65 ) mGy, DLP = ( 1325.87 ) mGycm TECHNIQUE: Transaxial images were obtained from the dome of the diaphragm to the symphysis pubis without oral contrast. 100CC IV/Oral Isovue 300 was administered. Sagittal and coronal images were reconstructed. Individualized dose optimization techniques were used for this CT. COMPARISON: October 13, 2018 FINDINGS: The visualized lung bases are unremarkable. Calcific granuloma within the right base. The visualized portions of the heart are within normal limits. Stable probable anterior hemangioma within the liver measuring 2.5 cm. Status post cholecystectomy. No significant dilatation of the extrahepatic biliary system. Normal spleen. Normal pancreas. Normal bilateral adrenal glands. Normal right kidney. Parapelvic cysts of the left kidney. Normal visualized stomach. Mild wall thickening of the third and fourth portion of duodenum suspicious for duodenitis. Diverticulosis of the colon. Previous noted sigmoid diverticulitis demonstrates interval improvement to near complete resolution. The appendix is not visualized. Normal abdominal aorta. Normal inferior vena cava. Normal retroperitoneum. Normal urinary bladder. Bilateral inguinal hernias with evidence of previous repair. Radiation seedings in the prostate region. Normal abdominal wall. Normal osseous structures. CT/Abdomen/Pelvis WITH Contrast IMPRESSION: Duodenitis. Colonic diverticulosis. Interval improving sigmoid diverticulitis. Bilateral inguinal hernias. Stable probable hepatic hemangioma. Parapelvic left renal cysts. Electronically Signed: Ye Bauer DO at 9:47 EDT Tel [phone], Service support ,
--- NOTE | 2018-10-26 07:33 | EKG12_ITS ---
Test Reason : ABD PAIN Blood Pressure : / mmHG Vent. Rate : 054 BPM Atrial Rate : 054 BPM P-R Int : 170 ms QRS Dur : 090 ms QT Int : 436 ms P-R-T Axes : 037 000 057 degrees QTc Int : 413 ms Sinus bradycardia Otherwise normal ECG Confirmed by JOSEPH MINOR, HOSEA ([id number]), editor continuity and script TAWNYA ZAVALA ([id number]) on 10/28/2018 1:21:21 PM Referred By: Sarah Hsu Confirmed By:HOSEA RUIZ MD
[2018-10-26 07:52] LABS: Absolute Lymphocyte Count 1.96 X10^3/ul (0.83-4.51); Absolute Neutrophil Count 5.6 X10^3/uL (2.0-7.7); Basophil# 0.06 X10^3/uL; Basophil% 0.6 % (0-1); Eosinophil# 1.15 X10^3/uL; Eosinophils% 12.2 % (0-5); Hematocrit 48.6 % (40-54); Hemoglobin 16.9 g/dl (13.0-16.5); Lymphocyte # 1.96 X10^3/ul (4.0); Lymphocyte % 20.7 % (19-41); Mean Corp Hgb Conc 34.8 g/gl (32-36); Mean Corpuscular Volume 83.4 fL (80-94); Mean Platelet Vol. 10.3 fl (6.2-12.0); Monocyte# 0.56 X10^3/uL; Monocyte% 5.9 % (0-10); Neutrophil # 5.63 X10^3/uL (2.7-7.7); Neutrophil % 59.5 % (47-70); Platelet Count 239 K/mm3 (150-450); RBC Distribution Width CV 13.5 % (11.6-14.6); RBC Distribution Width SD 40.9 fl (35.1-43.9); Red Blood Count 5.83 M/mm3 (4.6-6.2); White Blood Count 9.5 K/mm3 (4.4-11.0)
[2018-10-26 07:53] LABS: POSITIVE COUNT NO; POSITIVE DIFFERENTIAL NO; POSITIVE MORPHOLOGY NO
[2018-10-26] MEDS: Ondansetron 4 MG/2 ML Vial IV (07:57)
[2018-10-26] MEDS: morphine 8 MG/ML Syringe IV (07:57)
[2018-10-26] MEDS: 0.9% Normal Saline 1,000 ML 1000 ML IV (07:57)
[2018-10-26 07:58] VITALS: PULSE 59; RESP 15; O2SAT 99
--- NOTE | 2018-10-26 07:59 | ED.DCSUM_ITS ---
History of Present Illness Chief Complaint: Nausea/Vomiting Informant: Patient Context: Sudden Onset Timing: Continuous Quality: Pain upper abdomen radiating to the back Location: Upper abdomen radiates to the back Current Severity: Mild Maximum Severity: Severe Worsened by: Movement, walking, vomiting Relieved by: Nothing Associated Symptoms: Subjective fever Narrative: Patient is an elderly male admitted earlier this month for acute sigmoid diverticulitis with perforation and small abscess. He was recently admitted for CVA felt to be an embolic stroke involving the right M3 branch of the middle cerebral artery. He presents as a Holter monitor on. He presents because of abdominal pain with nausea vomiting x2. The nausea vomiting started 15-30 minutes prior to presentation. He denies cardiac respiratory symptoms. He does report dry mouth, thirst and lightheadedness. He denies dysuria, frequency, urgency or hematuria. 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 Status: Acute (2) CAD (coronary artery disease) Status: Chronic (3) CKD (chronic kidney disease) stage 3, GFR 30-59 ml/min Status: Chronic (4) Perforation of sigmoid colon due to diverticulitis Status: Chronic Past Medical History - Allergies and Home Meds Allergies/Adverse Reactions: Allergies No Known Allergies Allergy (Verified 10/26/18 07:22) Primary Care Physician: Jazlyn Richard DO [Primary Care Provider] - Prior records reviewed: Yes Surgical History: cholecystectomy, herniorrhaphy - RIH x 2 open, tonsillectomy, - - Remote PCI, Prostate CA seed insertion, L achilles repair, Deviated septum repair, cholecystectomy, tonsillectomy, hernia repair (RIH x 2 open). Lives: Spouse/ Significant Other Smoking Status: Former smoker Drugs: None - Family History Maternal Family History: Reports: No pertinent history Paternal Family History: Reports: - - Patient notes that his father at age 55 secondary to complications of heart disease and was a very avid tobacco user. Review of Systems General: Reports: Chills, Fever, Subjective. Denies: Sweats, Weight loss Eyes: Denies: Visual changes - left, Visual changes - right, Visual changes - bilaterally, Blurred vision - left, Blurred vision - right, Blurred Vision - bilaterally, Diplopia, -, - ENT: Denies: Bilateral ear pain, Rhinorrhea, Sore throat Cardiovascular: Denies: Chest pain, Palpitations, Heart racing Respiratory: Denies: Dyspnea, Cough, Sputum, Dyspnea on exertion, Orthopnea, Paroxysmal nocturnal dyspnea, -, - Gastrointestinal: Reports: Abdominal pain, Nausea, Vomiting. Denies: Diarrhea, Constipation, Melena, Hematochezia Genitourinary: Denies: Dysuria, Hematuria, Frequency, -, - Musculoskeletal: Reports: Back pain. Denies: Myalgias, Arthralgias, Neck pain Skin: Denies: Rash Neurological: Reports: Weakness. Denies: Headache, Parasthesia, Numbness, -, - Hematologic: Denies: Easy bruising, Easy bleeding, Lymphadenopathy, -, - Physical Exam Vital Signs/Narrative: Vital Signs Temp Pulse Resp BP Pulse Ox 10/26/18 07:18 98 F 62 18 161/90 H 98 Inital Vital Signs reviewed: Yes General: Well nourished, Well developed, Acute Distress - Patient does not look well. He appears pale. Eyes: Perrl, EOMI. Negative for: Pale conjunctiva, Scleral icterus ENT: No rhinorrhea, Dry mucous membranes Neck: Supple, Nontender, No lymphadenopathy, No JVD Cardiovascular: Regular rate, Regular rhythm, No murmurs, Normal S1, Normal S2 Respiratory: No distress, CTA bilaterally, Chest nontender Abdomen: Guarding, Rebound tenderness, Hypoactive bowel sounds. Negative for: Ventral hernia, Inguinal hernia, Umbilical hernia Back: Nontender, Normal Inspection. Negative for: CVA tenderness Extremities: Nontender, No edema Skin: No rash, Pallor. Negative for: Cyanosis, Jaundice Neurological: Alert, Oriented x3, Cranial nerves II-XII grossly intact, Normal Strength, Normal Sensation Psychological: Normal affect, Normal Mood Diagnostic/Tx/Re-eval Impressions Abdomen/Pelvis CT 10/26/18 07:30 IMPRESSION: Duodenitis. Colonic diverticulosis. Interval improving sigmoid diverticulitis. Bilateral inguinal hernias. Stable probable hepatic hemangioma. Parapelvic left renal cysts. Electronically Signed: Ye Bauer DO at 9:47 EDT Tel [phone], Service support , 10/26/18 07:30 Abdomen/Pelvis WITH Contrast [CT] Stat Laboratory Results 10/26/18 10/26/18 10/26/18 07:45 07:45 08:14 WBC 9.5 RBC 5.83 Hgb 16.9 H Hct 48.6 MCV 83.4 MCH 29.0 MCHC 34.8 RDW 13.5 RDW Differential 40.9 Plt Count 239 MPV 10.3 Immature Gran % (Auto) 1.100 H Neut % (Auto) 59.5 Lymph % (Auto) 20.7 [place] % (Auto) 5.9 Eos % (Auto) 12.2 H Baso % (Auto) 0.6 Absolute Neuts (auto) 5.6 Absolute Lymphs (auto) 1.96 Total Counted Not Reportable Sodium 142 Potassium 4.3 Chloride 109 H Carbon Dioxide 26.0 Anion Gap 7 BUN 15 Creatinine 1.64 H Estim Creat Clear Calc 40.18 Est GFR (MDRD) Af Amer 53 L Est GFR (MDRD) Non-Af 43 L BUN/Creatinine Ratio 9.1 L Glucose 131 H Calcium 8.5 POC Glucose 102 - Medical Decision Making IV was established. Since clinically he appears dehydrated and will need IV contrast 1 L of normal saline was administered. He was medicated with Zofran and morphine. Will obtain basic metabolic panel to assess electrode, anion gap and glucose. Also to assess renal function since he has had several contrast studies in the past [address] of the abdomen with p.o. and IV contrast was obtained because of concern for perforation and or exacerbation of his diverticular disease. Differential includes peptic ulcer disease, perforated ulcer, perforation of sigmoid diverticulitis, renal disease, partial small bowel obstruction CAT scan reveals findings consistent with duodenitis. Patient does have maximal tenderness in the epigastric area. Blood work is normal. There is almost total resolution of the sigmoid diverticulitis that perforated. Patient states he has an appointment with about some on Saturday. He was treated with IV Pepcid and placed on PPI. ED Disposition - Plan for ED Patient: Disposition: Home or Assisted Living Diagnosis: Acute duodenitis, Chronic renal insufficiency, stage II (mild) Instructions: ED PUD Prescriptions: Pantoprazole Sodium [Protonix] 40 mg PO DAILY #30 tablet Referrals: Jazlyn Richard DO [Primary Care Provider] - Aria Gueavra MD [STAFF PHYSICIAN] - Keep Mary appointment
[2018-10-26 08:02] LABS: Anion Gap 7 (5-15); BUN 15 mg/dL (7-18); BUN/Creat Ratio 9.1 RATIO (10-20); Calcium,Total 8.5 mg/dL (8.5-10.1); Chloride 109 mmol/L (98-107); Creatinine, Serum 1.64 mg/dL (0.70-1.30); EST Glomerular Filtration Rate 43 mL/min (>60); Est Glom Filt Rate - Afr Amer 53 mL/min (>60); Estimated Creatinine Clearance 40.18 ml/min; Glucose 131 mg/dL (74-106); Potassium 4.3 mmol/L (3.5-5.1); Sodium Level 142 mmol/L (136-145)
[2018-10-26 08:20] LABS: Bedside Glucose 102 mg/dL (70-110)
[2018-10-26 10:23] VITALS: BP 154/88; PULSE 59; PULSE 62; RESP 16; RESP 18; O2SAT 98
[2018-10-26 10:43] VITALS: BP 158/87; PULSE 67; RESP 19
== END 2018-10-26 10:44 | disposition home or self-care (01) ==
PROVIDERS: Emergency Provider Emergency Medicine; Family Provider Internal Medicine; PCP Internal Medicine
DX: K29.80 Duodenitis without bleeding (principal); N18.2 Chronic kidney disease, stage 2 (mild); Z87.891 Personal history of nicotine dependence; Z79.899 Other long term (current) drug therapy
CPT/HCPCS: 74177; 80048; 82962; 85025; 93005; 96361; 96374; 96375; 99284; Q9967; J2405; J3490

== ENCOUNTER → 2019-02-19 | Outpatient (CLI) | payer MEDICARE, SELFPAY ==
[2019-01-15 08:27] VITALS: BMI 30.4
[2019-02-19 08:27] LABS: Absolute Lymphocyte Count 1.92 X10^3/uL (0.83-4.51); Absolute Neutrophil Count 2.9 X10^3/uL (2.0-7.7); Basophil% 1.7 % (0-1); Eosinophils% 8.7 % (0-5); Hematocrit 50.2 % (40-54); Lymphocyte # 1.92 X10^3/ul (4.0); Lymphocyte % 33.4 % (19-41); Mean Corp Hgb Conc 33.9 g/dL (32-36); Mean Corpuscular Hgb 29.5 pg (27.0-32.0); Mean Platelet Vol. 9.9 fl (6.2-12.0); Monocyte# 0.32 X10^3/uL; Monocyte% 5.6 % (0-10); NRBC Flagged by Analyzer 0 % (0-5); Neutrophil # 2.89 X10^3/uL (2.7-7.7); Neutrophil % 50.4 % (47-70); Platelet Count 196 K/mm3 (150-450); RBC Distribution Width CV 13.2 % (11.6-14.6); RBC Distribution Width SD 41.2 fl (35.1-43.9); Red Blood Count 5.77 M/mm3 (4.6-6.2); White Blood Count 5.7 K/mm3 (4.4-11.0)
== END | disposition home or self-care (01) ==
PROVIDERS: Family Provider Internal Medicine; PCP Internal Medicine; Referring Provider Internal Medicine Infectious Disease; Visit Provider Internal Medicine Infectious Disease
DX: B71.9 Cestode infection, unspecified (principal)
CPT/HCPCS: 36415; 85025; 87177; 87209

== ENCOUNTER → 2019-03-06 | Outpatient (CLI) | payer MEDICARE, SELFPAY ==
[2019-01-15 08:27] VITALS: BMI 30.4
== END | disposition home or self-care (01) ==
LOC: EN 09:02
PROVIDERS: Family Provider Internal Medicine; PCP Internal Medicine; Referring Provider Internal Medicine; Visit Provider Surgery
DX: Z00.00 Encounter for general adult medical examination without abnormal findings (principal)
CPT/HCPCS: J7120

== ENCOUNTER → 2019-04-03 08:34 | Outpatient (CLI) | payer MEDICARE, SELFPAY ==
[2019-01-15 08:27] VITALS: BMI 30.4
[2019-04-03 12:24] LABS: Vitamin B12 358 pg/mL (211-911)
== END ==
PROVIDERS: Family Provider Internal Medicine; PCP Internal Medicine; Visit Provider Internal Medicine Infectious Disease
DX: B71.9 Cestode infection, unspecified (principal)
CPT/HCPCS: 36415; 82607

== ENCOUNTER 2019-04-29 07:44 | Day surgery (SDC) | payer MEDICARE, SELFPAY ==
[2019-01-15 08:27] VITALS: BMI 30.4
--- NOTE | 2019-04-29 | COLBX_PTH ---
PATIENT: ERI GUEVARA Jr. LOC: EN U#:[id number] AGE/SX: 79/M ROOM: RE04/29/[address]: Dr. Aria Guevara MD : [id number] BED: DIS: 04/29/2019 SPEC #: [id number] RECD: 04/29/19 13:52 STATUS: HOMERO RERoberth #: [id number] ELI: 04/29/19 00:[address]: Aria Guevara DEPT: SURGICAL PATHOLOGY RECD BY: Dann Trejo ENTERED: 04/29/19 13:53 SP TYPE: COLON BX OTHR DR: Dr. Jazlyn Richard DO Tissues: Descending colon Procedures: Surgery Specimen Level IV HEADER OPERATION: Colonoscopy (MAC) PRE-OP DIAGNOSIS: Screening TISSUE SUBMITTED: Descending polyp biopsy MICROSCOPIC DIAGNOSIS Descending colon polyp, biopsy: Tubular adenoma. AM:alex 04/30/19 MICROSCOPIC DESCRIPTION Slides are reviewed. GROSS DESCRIPTION Received in fixative is one container labeled with the patient's name and designated descending polyp. The specimen consists of multiple irregular fragments of light avery soft tissue that in aggregate measure 1 x 0.3 x 0.1 cm. The specimen is totally submitted in one cassette. / SJ:alex 04/29/19 TC:5 CPT: 49138
[2019-04-29 08:09] VITALS: BP 134/83; PULSE 62; RESP 16; TEMP 36.6; O2SAT 97; BMI 30.1
[2019-04-29] MEDS: Lactated Ringers 1,000 ML 100 ML IV (08:15)
--- NOTE | 2019-04-29 08:29 | H&P.OPEN ---
History of Present Illness Date of Admission: 04/29/19 The patient is a 79 year old M presents for screening colonoscopy. Patient did have a recent history of perforated diverticulitis which has healed and the abscess did resolve. Patient also had tapeworm as he does go fishing in [place] yearly. He was also treated and seen by infectious disease with 3 rounds of treatment. Patient denies abdominal pain nausea or vomiting. Patient's last colonoscopy was about 15 years ago-- Negative at that time per patient. Past Medical/Surgical History - Planned Operation Planned Operative Procedure/s: cscope Date of Operative Procedure: 04/29/19 Permit Signed: No S.O.S: No Is This Patient Having a Total Joint: No - Previous Hospitalizations/Surgeries HX Hospitalizations: Yes HX of Surgeries: RUPTURED ACHILLES TENDON. DEVIATED SEPTUM. APPY. GIO. HERNIA X2. STENT, CARDIAC. bk. cscope. cataract bilat Any Problems With Anesthesia: No You/Your Family Experience Fever (Hyperthermia) With Anes: No Cholinesterase deficiency: No - Cardiovascular Hx Chest Pain within Last 2 months: No Hx of Irregular Heartbeat and/or Afib: No - had followed with dr angulo/last visit 2 yrs ago Hx Heart Attack: Yes - 12-15 YRS AGO Hx Congestive Heart Failure: No Hx Rheumatic Fever: No Hx Hypertension: No Hx Internal Defibrillator: No Hx Pacemaker: No Hx Cardiac Catheterization: Yes - 1999 What facility was last heart cath performed: [facility] Date of last Heart Cath: 1999 Hx Cardiac Surgery/Stents/Etc.: Yes - heart stent 12 yrs ago Hx Stress Test: Yes - over 5 yrs ago/efho 2018 HX Edema: No Hx Pain in Legs when Walking/Leg Cramps: No - Respiratory Chronic Cough: No HX of Shortness of Breath: No Hoarseness: No Hx Chronic Obstructive Pulmonary Disease (COPD): No Hx Asthma: No Hx Emphysema: No Hx Sleep Apnea: Yes CPAP: Yes - noncompliant BIPAP: No Hx Oxygen Use at Home: No Hx Respiratory Tract Infection/Cold (presently): No Result (for STOP score): Positive Hx Smoking: Yes - QUIT Smoking Status: Former smoker - Gastrointestinal Hx Gastroesophageal Reflux: No - occ heartburn Hx Gastrointestinal Disorders: No Hx Gastrointestinal Bleed: No Hx Ulcer: No Hx Hiatal Hernia: No Difficulty Chewing/Swallowing: No Recent Onset of Swallowing Problems: No Special diet followed at home: No Hx Unplanned Weight Loss of 20#: No HX Unplanned Weight Gain of 20#: No - Neurological Hx Seizures: No HX Syncope/Blackout Spells/Unconsciousness: No Hx CVA/Stroke: No - tia 2019/no deficits Hx Transient Ischemic Attacks (TIA): Yes - . Hx Multiple Sclerosis: No Hx Parkinson's Disease: No Hx Head/Neck Injury: No Hx Headaches: Yes - migraines occ Hx Back Injury/Pain: No Recent Onset of Speech Difficulty: No Restless Legs: No Does patient have nerve stimulator: No Patient instructed to have device shut off: No Rep notified?: No - Blood Disorder Hx Leukemia: No Bleeding Tendencies: Yes - bruises easily Hx Deep Vein Thrombosis: No Hx High Cholesterol: Yes - no meds Blood Transmitted Disease: No Hx Hepatitis: No Hx Cirrhosis: No Hx Anemia: No Hx Blood Disorders: No - LYMES DISEASE 30 YRS AGO-RESOLVED - Genitourinary Hx Renal Disease: Yes - ckd stage 3/prostate cancer Hx Dialysis: No - Musculoskeletal Hx Arthritis: Yes - AGE RELATED Hx Rheumatoid Arthritis: No Hx Gout: No Recent Onset of an Orthopedic Problem: No - Endocrine Hx Diabetes: No Thyroid Disease: No Hx Steroid Therapy: No - Psycho/Social Hx Substance Use: No Hx Alcohol Use: No Hx Anxiety: No Hx Depression: No Mental Illness: No Hx Dementia: No - Miscellaneous Hx Cancer: Yes - prostate cancer/remission Recent Exposure to Contagious Disease: No Active MRSA: No Hx of C-Diff: No Any Loose Teeth: No Allergies No Known Allergies Allergy (Verified 04/28/19 11:31) Maternal Family History: Family History (Last Reviewed 01/15/19 @ 08:24 by Ariela Romero) Mother Heart disease No pertinent history Paternal Family History: Family History (Last Reviewed 01/15/19 @ 08:24 by Ariela Romero) Mother Heart disease - - Patient notes that his father at age 55 secondary to complications of heart disease and was a very avid tobacco user. - Discharge Is Pt Admitted From a [facility], or a [facility]: No Who Could Help: After D/C, Where Do you Plan to Go: Return Home - From the PAT History Number of Risk Factors: 3 - Physical Exam General: Alert, Oriented x3, Cooperative, No apparent distress HEENT: Atraumatic Lungs: Normal air movement Cardiovascular: Regular rate Abdomen: Soft, Non Tender, Non-Distended Extremities: No clubbing, No cyanosis, No edema Neurological: Cranial nerves II-XII grossly intact Psych/Mental Status: Normal Affect Vital Signs Temp Pulse Resp BP Pulse Ox 97.8 F 62 16 134/83 H 97 04/29/19 08:09 04/29/19 08:09 04/29/19 08:09 04/29/19 08:09 04/29/19 08:09 Oxygen Delivery Method Room Air Weight: 215 lb 13.321 oz Body Mass Index (BMI) 30.1 Finger Stick Blood Glucose 102 Assessment/Plan All Active Problems (Last Reviewed 01/15/19 @ 08:24 by Ariela Romero) TIA (transient ischemic attack) (Acute) 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 No further questions this time.
[2019-04-29 09:16] VITALS: BP 103/64; BP 134/83; PULSE 58; RESP 16; TEMP 36.3; O2SAT 94
[2019-04-29 09:20] VITALS: BP 108/75; BP 134/83; PULSE 62; RESP 16; O2SAT 94
[2019-04-29 09:25] VITALS: BP 113/75; BP 118/75; BP 134/83; PULSE 55; PULSE 56; RESP 16; O2SAT 96; O2SAT 97
[2019-04-29 09:46] VITALS: BP 134/83
--- NOTE | 2019-04-30 12:17 | OP.ENDO_ITS ---
04/30/2019 Jazlyn Richard [address] [place] [address] Re : Colonoscopy procedure for Jesus Alberto Perales Dear Dr. Richard This procedure was performed on Monday, April 29, 2019. My impressions and recommendations are as follows: Impressions : - No specimens collected. Recommendations : - Discharge patient to home. - High fiber diet. - Continue present medications. - Await pathology results. - Repeat colonoscopy in 3 - 5 years for surveillance based on pathology results. My findings are described in the full procedure note, which is enclosed. If I can be of further assistance, please feel free to contact me at Doctor phone number(s): , Work: . Sincerely, MD Aria Kathleen MD 04/29/2019 9:15:21 AM This report has been signed electronically.
== END 2019-04-29 10:35 | disposition home or self-care (01) ==
LOC: EN 07:47 → AC 07:48
PROVIDERS: Family Provider Internal Medicine; PCP Internal Medicine; Referring Provider Internal Medicine; Visit Provider Surgery
PROC: 0DJD8ZZ Inspection of Lower Intestinal Tract, Via Natural or Artificial Opening Endoscopic (ICD-10-PCS; CPT 45378; principal; 2019-04-29 08:40)
DX: Z12.11 Encounter for screening for malignant neoplasm of colon (principal); D12.4 Benign neoplasm of descending colon; K64.0 First degree hemorrhoids; K57.30 Diverticulosis of large intestine without perforation or abscess without bleeding; I25.2 Old myocardial infarction; N18.3 Chronic kidney disease, stage 3 (moderate); M19.90 Unspecified osteoarthritis, unspecified site; G47.30 Sleep apnea, unspecified; Z85.46 Personal history of malignant neoplasm of prostate; Z87.19 Personal history of other diseases of the digestive system; Z86.19 Personal history of other infectious and parasitic diseases; Z86.73 Personal history of transient ischemic attack (TIA), and cerebral infarction without residual deficits; Z95.5 Presence of coronary angioplasty implant and graft; Z79.82 Long term (current) use of aspirin; Z87.891 Personal history of nicotine dependence
CPT/HCPCS: 45380; 88305; J7120

== ENCOUNTER → 2019-06-30 08:30 | Outpatient (CLI) | payer MEDICARE, SELFPAY | PROVIDERS: Family Provider Internal Medicine; PCP Internal Medicine; Referring Provider Otolaryngology Otolaryngology/Facial Plastic Surgery; Visit Provider Otolaryngology Otolaryngology/Facial Plastic Surgery | DX: J02.9 Acute pharyngitis, unspecified (principal) | CPT/HCPCS: 87070 ==

== ENCOUNTER → 2020-01-13 | Outpatient (CLI) | payer MEDICARE, SELFPAY ==
[2020-01-12 13:35] VITALS: BMI 30.1
== END | disposition home or self-care (01) ==
LOC: LABSPEC 01-15 15:02
PROVIDERS: PCP Internal Medicine; Referring Provider Physician Assistant Surgical; Visit Provider Physician Assistant Surgical
DX: Z20.828 Contact with and (suspected) exposure to other viral communicable diseases (principal)
CPT/HCPCS: 87635; G2023; U0003

== ENCOUNTER → 2020-11-16 10:20 | Outpatient (CLI) | payer MEDICARE, SELFPAY ==
[2020-02-25 13:48] VITALS: BMI 30.5
[2020-11-16 12:27] LABS: Erythrocyte Sedimentation Rate 1 mm/hr (0-20)
[2020-11-16 12:29] LABS: Absolute Lymphocyte Count 1.65 X10^3/uL (0.83-4.51); Absolute Neutrophil Count 2.8 X10^3/uL (2.0-7.7); Basophil# 0.05 X10^3/uL; Eosinophil# 0.23 X10^3/uL; Eosinophils% 4.4 % (0-5); Hemoglobin 15.9 g/dL (13.0-16.5); Lymphocyte # 1.65 X10^3/ul (0.83-4.51); Lymphocyte % 31.5 % (19-41); Mean Corp Hgb Conc 31.8 g/dL (32-36); Mean Corpuscular Hgb 28.4 pg (27.0-32.0); Mean Corpuscular Volume 89.3 fL (80-94); Mean Platelet Vol. 10.5 fl (6.2-12.0); Monocyte# 0.51 X10^3/uL; Monocyte% 9.8 % (0-10); NRBC Flagged by Analyzer 0 % (0-5); Neutrophil # 2.77 X10^3/uL (2.7-7.7); Neutrophil % 52.9 % (47-70); Platelet Count 233 K/mm3 (150-450); RBC Distribution Width SD 42.2 fl (35.1-43.9); White Blood Count 5.2 K/mm3 (4.4-11.0)
[2020-11-16 12:53] LABS: AST(SGOT) 21 U/L (15-37); Alanine Aminotransfer ALT/SGPT 26 U/L (16-61); Albumin, Serum 3.5 g/dL (3.2-5.0); Alkaline Phosphatase 70 U/L (45-117); Anion Gap 3 (5-15); BUN 21 mg/dL (7-18); BUN/Creat Ratio 14.1 RATIO (10-20); CRP < 2.90 mg/L (0.0-3.0); Calcium,Total 8.6 mg/dL (8.5-10.1); Chloride 106 mmol/L (98-107); Creatinine, Serum 1.49 mg/dL (0.70-1.30); EST Glomerular Filtration Rate 48 mL/min (>60); Est Glom Filt Rate - Afr Amer 58 mL/min (>60); Globulin 3.5 g/dL (2.2-4.2); Glucose 85 mg/dL (74-106); Potassium 4.6 mmol/L (3.5-5.1); Rheumatoid Factor < 10.0 IU/mL (<15); Sodium Level 137 mmol/L (136-145)
[2020-11-16 13:09] LABS: Hepatitis B Surface Antibody Non-Reactive; Hepatitis B Surface Antigen Non-Reactive (Nonreactive); Hepatitis C Antibody Non-Reactive (Nonreactive)
[2020-11-18 09:26] LABS: CCP IgG Antibodies 3 units (0-19)
== END ==
PROVIDERS: PCP Internal Medicine; Referring Provider Internal Medicine Rheumatology; Visit Provider Internal Medicine Rheumatology
DX: M06.4 Inflammatory polyarthropathy (principal); M17.0 Bilateral primary osteoarthritis of knee; M47.897 Other spondylosis, lumbosacral region; M47.892 Other spondylosis, cervical region; H40.9 Unspecified glaucoma; E78.5 Hyperlipidemia, unspecified; G47.33 Obstructive sleep apnea (adult) (pediatric); I25.10 Atherosclerotic heart disease of native coronary artery without angina pectoris; Z85.46 Personal history of malignant neoplasm of prostate
CPT/HCPCS: 36415; 80053; 85025; 85652; 86140; 86200; 86431; 86706; 86803; 87340

== ENCOUNTER → 2020-11-18 09:14 | Outpatient (CLI) | payer MEDICARE, SELFPAY ==
[2020-02-25 13:48] VITALS: BMI 30.5
--- NOTE | 2020-11-18 09:17 | RAD_ITS ---
INDICATION: PAIN EXAMINATION/TECHNIQUE: X-RAY - XR Pelvis 1 or 2 Views COMPARISON: None. FINDINGS: PELVIC BONES: Age indeterminate avulsion fracture of the right lesser trochanter. Note that overlapping bowel shadows may however obscure fine detail. Sacroiliac joints are unremarkable. No widening of the pubic symphysis. HIPS: The articular structures are unremarkable. No displaced fracture seen in this frontal view. SOFT TISSUES: No soft tissue swelling or gas. Metallic radiation seeds are seen within the prostate. RAD/Pelvis 1 or 2 Views IMPRESSION: Age indeterminate avulsion fracture of the right lesser trochanter. Electronically Signed: Shine Szymanski MD at 23:10 EDT Tel , Service support ,
== END ==
PROVIDERS: PCP Internal Medicine; Referring Provider Internal Medicine Rheumatology; Visit Provider Internal Medicine Rheumatology
DX: M06.4 Inflammatory polyarthropathy (principal); M17.0 Bilateral primary osteoarthritis of knee; M47.897 Other spondylosis, lumbosacral region; M47.892 Other spondylosis, cervical region; H40.9 Unspecified glaucoma; E78.5 Hyperlipidemia, unspecified; G47.33 Obstructive sleep apnea (adult) (pediatric); I25.10 Atherosclerotic heart disease of native coronary artery without angina pectoris; Z85.46 Personal history of malignant neoplasm of prostate
CPT/HCPCS: 72170

== ENCOUNTER → 2021-03-20 06:25 | Outpatient (CLI) | payer MEDICARE, SELFPAY ==
[2020-02-25 13:48] VITALS: BMI 30.5
--- NOTE | 2021-03-20 17:02 | STRESSREP ---
Stress Test Report Exercise myocardial perfusion stress test. 81-year-old male with a history of chest pain. Stress protocol: Resting EKG demonstrates sinus bradycardia with a rate of 55 bpm normal intervals are noted resting blood pressure is 130/72 mmHg. The patient exercised according to regular [place] protocol for total duration of 8 minutes the maximum heart rate attained was 131 bpm which was 93% of maximum predicted heart rate the maximum workload was 10.1 metabolic equivalents. At rest there were no ST or T wave changes noted to suggest ischemia and at peak exercise upsloping ST changes were noted with did not meet the criteria for ischemia. No clinical angina was noted the test was terminated due to the target heart rate being achieved. Myocardial perfusion protocol. 15.0 mCi of technetium 99m sestamibi was injected at rest. The patient exercised according to regular [place] protocol for 8 minutes and at peak exercise 45.0 mCi of technetium 99m sestamibi was injected stress images were obtained stress and rest images were reconstructed in comparing the short axis vertical long and horizontal long axis. Gated images were also obtained per Perfusion SPECT analysis: Review of the stress images demonstrate normal uptake of tracer noted in all areas of the myocardium the resting images similarly demonstrate normal uptake of tracer noted in all areas of the myocardium. No areas of reversibility are noted to suggest ischemia and no previous infarct is noted. Gated SPECT analysis: The gated ejection fraction is noted to be 62%. Conclusion: Normal exercise myocardial perfusion stress test at a high workload. Preserved ejection fraction.
== END ==
LOC: CVS 06:32
PROVIDERS: PCP Internal Medicine; Referring Provider Physician Assistant Medical; Visit Provider Physician Assistant Medical
DX: I25.10 Atherosclerotic heart disease of native coronary artery without angina pectoris (principal)
CPT/HCPCS: 78452; 93017; A9500; A4216

== ENCOUNTER 2021-08-17 12:11 | Outpatient (CLI) | payer MEDICARE, SELFPAY ==
[2021-08-17 12:32] VITALS: BP 159/87; PULSE 77; RESP 16; TEMP 36.7; O2SAT 100; BMI 32.1
[2021-08-17] MEDS: 0.9% Saline Lock 10 ML Syringe IV (12:36)
[2021-08-17 13:31] VITALS: BP 141/84; PULSE 68; RESP 16; TEMP 36.8; O2SAT 98
[2021-08-17 14:31] VITALS: BP 155/85; PULSE 69; RESP 16; TEMP 36.7; O2SAT 97
== END 2021-08-17 23:59 | disposition home or self-care (01) ==
LOC: MS3OUT 12:11 → MS3 12:12
PROVIDERS: PCP Internal Medicine; Referring Provider Nurse Practitioner Adult Health; Visit Provider Nurse Practitioner Adult Health
DX: Z23 Encounter for immunization (principal); U07.1 COVID-19
CPT/HCPCS: J7050; M0247; A4216; Q0247

== ENCOUNTER 2021-10-17 07:54 | Outpatient (CLI) | payer MEDICARE, SELFPAY ==
[2021-10-17 11:17] LABS: ALB/GLOB Ratio 0.9 RATIO (0.9-2.4); AST(SGOT) 19 U/L (15-37); Alanine Aminotransfer ALT/SGPT 27 U/L (16-61); Albumin, Serum 3.6 g/dL (3.2-5.0); Alkaline Phosphatase 73 U/L (45-117); Anion Gap 6 (5-15); BUN 24 mg/dL (7-18); BUN/Creat Ratio 14.2 RATIO (10-20); CRP 4.66 mg/L (0.0-3.0); Calcium,Total 8.7 mg/dL (8.5-10.1); Chloride 111 mmol/L (98-107); Creatinine, Serum 1.69 mg/dL (0.70-1.30); EST Glomerular Filtration Rate 42 mL/min (>60); Est Glom Filt Rate - Afr Amer 50 mL/min (>60); Globulin 3.9 g/dL (2.2-4.2); Glucose 93 mg/dL (74-106); Potassium 4.3 mmol/L (3.5-5.1); Protein, Total 7.5 g/dL (6.4-8.2); Sodium Level 138 mmol/L (136-145)
[2021-10-17 17:52] LABS: Erythrocyte Sedimentation Rate 13 mm/hr (0-20)
[2021-10-17 18:00] LABS: Absolute Lymphocyte Count 1.85 X10^3/uL (0.83-4.51); Absolute Neutrophil Count 3.2 X10^3/uL (2.0-7.7); Basophil# 0.05 X10^3/uL; Basophil% 0.8 % (0-1); Eosinophil# 0.31 X10^3/uL; Eosinophils% 5.2 % (0-5); Hematocrit 50.6 % (40-54); Hemoglobin 17.2 g/dL (13.0-16.5); Lymphocyte # 1.85 X10^3/ul (0.83-4.51); Mean Corpuscular Hgb 29.6 pg (27.0-32.0); Mean Corpuscular Volume 87.1 fL (80-94); Mean Platelet Vol. 10.2 fl (6.2-12.0); Monocyte# 0.55 X10^3/uL; Monocyte% 9.2 % (0-10); NRBC Flagged by Analyzer 0 % (0-5); Neutrophil % 53.6 % (47-70); Platelet Count 223 K/mm3 (150-450); RBC Distribution Width CV 12.9 % (11.6-14.6); RBC Distribution Width SD 40.5 fl (35.1-43.9); Red Blood Count 5.81 M/mm3 (4.6-6.2)
== END 2021-10-17 23:59 | disposition home or self-care (01) ==
LOC: MTLAB 07:56
PROVIDERS: PCP Internal Medicine; Referring Provider Internal Medicine Rheumatology; Visit Provider Internal Medicine Rheumatology
DX: M06.4 Inflammatory polyarthropathy (principal); Z79.899 Other long term (current) drug therapy; M17.0 Bilateral primary osteoarthritis of knee; M47.897 Other spondylosis, lumbosacral region; M47.892 Other spondylosis, cervical region; H40.9 Unspecified glaucoma; E78.5 Hyperlipidemia, unspecified; G47.33 Obstructive sleep apnea (adult) (pediatric); I25.10 Atherosclerotic heart disease of native coronary artery without angina pectoris; Z85.46 Personal history of malignant neoplasm of prostate
CPT/HCPCS: 36415; 80053; 85025; 85652; 86140

== ENCOUNTER 2022-01-29 08:21 | Emergency (ER) | payer MEDICARE, SELFPAY ==
[2022-01-29] VITALS (7 sets, daily range): BP systolic 121–207; BP diastolic 71–90; PULSE 67–83; RESP 16–20; TEMP 36.4; O2SAT 96–99; BMI 33.7
--- NOTE | 2022-01-29 08:28 | EKG12_ITS ---
Test Reason : CP Blood Pressure : / mmHG Vent. Rate : 064 BPM Atrial Rate : 064 BPM P-R Int : 190 ms QRS Dur : 098 ms QT Int : 382 ms P-R-T Axes : 049 005 084 degrees QTc Int : 394 ms Normal sinus rhythm Low voltage QRS (Limb Leads) Poor R wave progression Confirmed by POWER MINOR, ERIN ([id number]), photograph editor TAWNYA ZAVALA ([id number]) on 01/31/2022 8:14:06 AM Referred By: Confirmed By:ERIN STEVE MD
--- NOTE | 2022-01-29 08:32 | CT_ITS ---
INDICATION: dissection study EXAMINATION: CTA CHEST, ABDOMEN AND PELVIS WITH CONTRAST - TECHNIQUE: A CTA of the chest, abdomen, and pelvis is obtained with sagittal and coronal reconstructed MIP views. Three-dimensional surface rendered sequence of the thoracic and abdominal aorta was obtained. A radiation dose optimization technique was used for this scan. mL of Isovue-370. Oral contrast: None. COMPARISON: 02/06/2013 FINDINGS: CT CHEST: THORACIC AORTA: No atheromatous disease, no aneurysmal changes or dissection. ABDOMINAL AORTA: No aneurysm or dissection. No significant atheromatous disease. The iliac arteries are unremarkable. 2 cm nodule the right lobe of thyroid gland and correlation with thyroid ultrasound is recommended. LUNGS: The lungs are well-expanded without acute or chronic changes. No effusions or pneumothorax. MEDIASTINUM: The thyroid gland is normal. No mediastinal or hilar adenopathy. HEART: Heart is normal size. No pericardial effusion. No CAD. CT ABDOMEN AND PELVIS: LIVER: The liver enhances homogeneously. 2 cm of peripherally globular enhancing mass within the subcapsular medial segment left lobe of the liver consistent with hemangioma.. GALLBLADDER: The CBD is normal. Status post cholecystectomy.. SPLEEN: Normal. PANCREAS: No masses or inflammation. ADRENAL GLANDS: Normal. KIDNEYS AND URETERS: The kidneys both enhance appropriately. There are normal size and shape. No hydronephrosis or nephrolithiasis. No renal masses or cysts. STOMACH: Normal. SMALL BOWEL: No abnormal distention of the small bowel. MESENTERY: No mesenteric inflammation. No ascites. COLON: No significant diverticulosis, masses or inflammation. The colon otherwise is normal. There is a large fatty ileocecal valve. APPENDIX: The appendix is not visualized. IVC: Normal. RETROPERITONEUM: No retroperitoneal lymphadenopathy. PELVIC STRUCTURES: Normal bladder. Radiation seeds within the prostate gland. SOFT TISSUES ABDOMEN: The anterior abdominal wall is normal. SOFT TISSUE CHEST: The extrathoracic soft tissues are normal. BONES: No fractures or significant degenerative disease. CT/CTA Chst, Abd, Pel W and/or WO IMPRESSION: No CT evidence of pulmonary embolism or aortic dissection. 2 cm nodule of the right lobe of the thyroid gland and correlation with thyroid ultrasound is recommended. Normal contrast-enhanced CT of the abdomen and pelvis. Electronically Signed: Wu Jurado MD at 9:29 EDT ,
--- NOTE | 2022-01-29 08:32 | ED.VIS.CHEST ---
HPI History of Present Illness Chief Complaint: Chest Pain Narrative Narrative: 81-year-old male with history of CAD, cardiac stent, NE presenting with chest pain. He states it starts in his mid back and radiates towards his chest and towards the right. He states this comes in waves and last minutes. He denies shortness of breath, lightheadedness, diaphoresis. He states it does feel similar to his previous NE. He is a patient of Dr. Khan. Patient does state that he recently came back from [place]. 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 Encounter for screening for COVID-19 History of CVA (cerebrovascular accident) Hyperlipidemia Perforation of sigmoid colon due to diverticulitis Prostate cancer Tapeworm infection TIA (transient ischemic attack) (09/2018) Home Medications cholecalciferol (vitamin D3) 50 mcg (2,000 unit) chewable tablet 2,000 unit PO DAILY SUPPLEMENT 10/10/18 [History Last Taken 10/25/18] aspirin 81 mg tablet,delayed release (Adult Aspirin Regimen) 81 mg PO DAILY 03/07/21 [History Last Taken Unknown] latanoprost 0.005 % eye drops 1 drp EACH EYE DAILY 08/17/21 [History Last Taken Unknown] ascorbic acid (vitamin C) 500 mg tablet (Vitamin C) 500 mg PO DAILY 01/29/22 [History Last Taken Unknown] lisinopril 10 mg tablet 10 mg PO BID #60 tabs 01/29/22 [Rx Last Taken Unknown] ondansetron 4 mg disintegrating tablet 4 mg PO Q8H PRN nausea and vomiting #10 tabs 01/29/22 [Rx Last Taken Unknown] zinc 10 mg tablet 10 mg PO DAILY 01/29/22 [History Last Taken Unknown] Allergy/AdvReac Type Severity Reaction Status Date / Time No Known Allergies Allergy Verified 08/15/21 09:54 Family History Mother Heart disease Surgical History History of Achilles tendon repair History of appendectomy History of colonoscopy (2008) History of coronary artery stent placement (02/06/13) History of laparoscopic cholecystectomy History of right inguinal hernia History of tonsillectomy Social History Smoking Status: Former smoker ROS ROS ED Constitutional Constitutional ED: Denies chills or fever(s) Eyes Eyes: Denies blurry vision or change in vision ENT ENT ED: Denies rhinorrhea or sore throat Cardiovascular Cardiovascular: Reports as per HPI Respiratory/Chest Respiratory/Chest: Denies cough or dyspnea Gastrointestinal Gastrointestinal: Denies abdominal pain or constipation Genitourinary Genitourinary ED: Denies dysuria or hematuria Musculoskeletal Musculoskeletal: Denies arthralgias or back pain Integumentary Denies abscess Neurologic Neurologic: Denies headache(s) or paresthesias Psychiatric Psychiatric: Denies anxiety or depression EXAM Physical Exam Const Vital Signs: 01/29/22 08:22 01/29/22 08:27 01/29/22 08:28 Temperature 97.6 F L Temperature Source Oral Pulse Rate 67 Respiratory Rate 20 H Respiratory Effort Normal Blood Pressure 207/90 H Blood Pressure Mean 129 Pulse Ox 99 99 Oxygen Delivery Method Room Air Room Air 01/29/22 09:40 01/29/22 10:19 01/29/22 10:59 Temperature Temperature Source Pulse Rate 70 83 71 Respiratory Rate 16 16 16 Respiratory Effort Blood Pressure 179/84 H 159/72 H 161/84 H Blood Pressure Mean 115 101 109 Pulse Ox 96 98 98 Oxygen Delivery Method Room Air Room Air Room Air 01/29/22 11:22 Temperature Temperature Source Pulse Rate 67 Respiratory Rate 16 Respiratory Effort Blood Pressure 167/88 H Blood Pressure Mean 114 Pulse Ox 98 Oxygen Delivery Method Nasal Cannula Positive well nourished General Appearance ED: NAD; Negative for pallor HEENT Reports moist mucous membranes normocephalic Eyes PERRL and EOMs intact bilaterally Resp normal respiratory effort and clear to auscultation bilaterally Cardio regular rate and regular rhythm Back/Spine no CVA tenderness Extremity normal to inspection Neuro oriented x3 and CN's II-XII intact bilaterally Sensorium / Orientation: awake Motor Exam: strength 5/5 throughout Psych mental status grossly normal Skin General Skin Exam: Negative for jaundice or pallor Heart Score History: Moderately Suspicious ECG: Normal Age: >/= 65 years Risk Factors: >/= 3 Risk Factors or History of CAD Score: 5 MDM MDM MDM Narrative Medical decision making narrative: Patient presenting with chest pain that radiates from his back to the center of his chest and to the right. He states has been having waves of this. He states it feels like his previous NE. The patient's blood pressure is elevated at 207/90. This was rechecked. He states he is not using this hypertensive. Because of his blood pressure and chest pain all taken directly to CT to rule out dissection. Patient was given 10 mg of hydralazine prior to taking him over. Blood pressure will be monitored. EKG on my interpretation shows a normal sinus rhythm with a ventricular rate of 64 bpm without sign ischemic change or dysrhythmia. Chest x-ray on my interpretation shows no acute cardiopulmonary process and the radiologist agree. CTA of the chest abdomen pelvis is read as negative for PE or aortic dissection. There is an incidental finding of thyroid nodule. CBC is unremarkable. Patient's creatinine is slightly elevated at 1.78 over his previous which was 1.69. His GFR has declined a little as well. High-sensitivity troponin is 16. Patient's blood pressure has been controlled and has now 159/72. Patient's high-sensitivity troponin initially was 16 and remained at 16. I spoke with Dr. Richard who recommended starting him on lisinopril 10 mg p.o. twice daily. He is to keep a diary of his blood pressures. Patient acknowledges understanding of this. Impression: 1. Chest pain 2. Chronic kidney disease 3. Hypertension?new onset 4. Thyroid nodule Lab Data Attestation: I reviewed the patient's lab results. Labs: Laboratory Results - last 24 hr 01/29/22 01/29/22 01/29/22 08:25 08:25 10:55 WBC 6.1 RBC 5.85 Hgb 16.7 H Hct 51.2 MCV 87.5 MCH 28.5 MCHC 32.6 RDW Std Deviation 42.7 RDW Coeff of Anyi 13.2 Plt Count 200 MPV 10.2 Immature Gran % (Auto) 0.300 Neut % (Auto) 59.0 Lymph % (Auto) 27.8 [place] % (Auto) 8.5 Eos % (Auto) 3.4 Baso % (Auto) 1.0 Absolute Neuts (auto) 3.6 Absolute Lymphs (auto) 1.70 Nucleated RBC % 0 Sodium 141 Potassium 4.1 Chloride 106 Carbon Dioxide 28.0 Anion Gap 7 BUN 17 Creatinine 1.78 H Estim Creat Clear Calc 34.18 Est GFR (MDRD) Af Amer 47 L Est GFR (MDRD) Non-Af 39 L BUN/Creatinine Ratio 9.6 L Glucose 109 H Calcium 8.7 Troponin I High Sens 16 16 Radiography Diagnostic Testing: Clinical Impression(s) from Imaging Studies Chest/Abdomen/Pelvis CTA 01/29/22 08:32 IMPRESSION: No CT evidence of pulmonary embolism or aortic dissection. 2 cm nodule of the right lobe of the thyroid gland and correlation with thyroid ultrasound is recommended. Normal contrast-enhanced CT of the abdomen and pelvis. Electronically Signed: Wu Jurado MD at 9:29 EDT Reading Location ID and State: [email or web address] Tel , Service support , Chest X-Ray 01/29/22 08:35 IMPRESSION: Normal x-ray examination of the chest. Electronically Signed: Wu Jurado MD at 9:08 EDT , Discharge Plan Triage Chief Complaint: Chest Pain ED Provider: Chris Diane Dx/Rx/DC Orders Instructions: ED Chest Pain, Noncardiac, ED Hypertension New Begin Treatment Prescriptions: New lisinopril 10 mg tablet 10 mg PO BID Qty: 60 0RF ondansetron 4 mg tablet,disintegrating 4 mg PO Q8H PRN (Reason: nausea and vomiting) Qty: 10 0RF No Action aspirin [Adult Aspirin Regimen] 81 mg tablet,delayed release (DR/EC) 81 mg PO DAILY cholecalciferol (vitamin D3) 2,000 UNIT tablet,chewable 2,000 unit PO DAILY latanoprost 0.005 % drops 1 drp EACH EYE DAILY Label Comments: place 1 drop into both eyes once daily ascorbic acid (vitamin C) [Vitamin C] 500 mg Tablet 500 mg PO DAILY zinc 10 mg Tablet 10 mg PO DAILY Primary Care Provider: Jazlyn Richard Referrals: Jazlyn Richard DO [Primary Care Provider] - Disposition Disposition: Home, Self Care
[2022-01-29] MEDS: hydrALAZINE 20 MG/ML Vial 10 MG IV (08:35)
--- NOTE | 2022-01-29 08:35 | RAD_ITS ---
STUDY: X-RAY CHEST REASON FOR EXAM: Male, 81 years old. chest pain TECHNIQUE: Single AP portable view of the chest. COMPARISON: 02/06/2013 FINDINGS: The lungs are clear and expanded. There is no demonstrated pleural abnormality. Normal size heart. Normal mediastinum and violet. Normal visualized pulmonary arteries. Normal visualized aortic arch and descending thoracic aorta. Normal visualized thoracic spine. Normal visualized ribs, clavicles, and shoulders. There is no demonstrated abnormality of the visualized soft tissue structures of the upper abdomen. RAD/Chest 1 View (Portable) IMPRESSION: Normal x-ray examination of the chest. Electronically Signed: Wu Jurado MD at 9:08 EDT ,
[2022-01-29 08:37] LABS: Absolute Neutrophil Count 3.6 X10^3/uL (2.0-7.7); Basophil# 0.06 X10^3/uL; Eosinophil# 0.21 X10^3/uL; Eosinophils% 3.4 % (0-5); Hematocrit 51.2 % (40-54); Hemoglobin 16.7 g/dL (13.0-16.5); Lymphocyte % 27.8 % (19-41); Mean Corp Hgb Conc 32.6 g/dL (32-36); Mean Corpuscular Hgb 28.5 pg (27.0-32.0); Mean Corpuscular Volume 87.5 fL (80-94); Mean Platelet Vol. 10.2 fl (6.2-12.0); Monocyte# 0.52 X10^3/uL; Monocyte% 8.5 % (0-10); NRBC Flagged by Analyzer 0 % (0-5); Neutrophil # 3.61 X10^3/uL (2.7-7.7); Platelet Count 200 K/mm3 (150-450); RBC Distribution Width CV 13.2 % (11.6-14.6); RBC Distribution Width SD 42.7 fl (35.1-43.9); Red Blood Count 5.85 M/mm3 (4.6-6.2); White Blood Count 6.1 K/mm3 (4.4-11.0)
[2022-01-29 08:56] LABS: Anion Gap 7 (5-15); BUN 17 mg/dL (7-18); BUN/Creat Ratio 9.6 RATIO (10-20); Calcium,Total 8.7 mg/dL (8.5-10.1); Chloride 106 mmol/L (98-107); Creatinine, Serum 1.78 mg/dL (0.70-1.30); EST Glomerular Filtration Rate 39 mL/min (>60); Est Glom Filt Rate - Afr Amer 47 mL/min (>60); Estimated Creatinine Clearance 34.18 ml/min; Glucose 109 mg/dL (74-106); Potassium 4.1 mmol/L (3.5-5.1); Sodium Level 141 mmol/L (136-145); Troponin-I HS (w/2H Reflex) 16 pg/mL (3.0-78.0)
[2022-01-29] MEDS: hydrALAZINE 20 MG/ML Vial 5 MG IV (09:44)
[2022-01-29] MEDS: 0.9% Normal Saline 1,000 ML 150 ML IV (09:45)
[2022-01-29 10:31] LABS: Reflex Troponin-HS? (from REC) Y
[2022-01-29] MEDS: 0.9% Normal Saline 1,000 ML 999 ML IV (11:15)
[2022-01-29 11:22] LABS: Troponin-I HS 16 pg/mL (3.0-78.0)
[2022-01-29] MEDS: Lisinopril 10 MG Tablet PO (12:12)
[2022-01-29] MEDS: Ondansetron 4 MG/2 ML Vial IV (12:12)
== END 2022-01-29 12:56 | disposition home or self-care (01) ==
PROVIDERS: Emergency Provider Student in an Organized Health Care Education/Training Program; PCP Internal Medicine; Visit Provider Student in an Organized Health Care Education/Training Program
DX: R07.9 Chest pain, unspecified (principal); N18.30 Chronic kidney disease, stage 3 unspecified; Z86.73 Personal history of transient ischemic attack (TIA), and cerebral infarction without residual deficits; Z85.46 Personal history of malignant neoplasm of prostate; I25.10 Atherosclerotic heart disease of native coronary artery without angina pectoris; E78.5 Hyperlipidemia, unspecified; I25.2 Old myocardial infarction; Z95.5 Presence of coronary angioplasty implant and graft; Z79.82 Long term (current) use of aspirin; Z79.899 Other long term (current) drug therapy; Z87.891 Personal history of nicotine dependence; I12.9 Hypertensive chronic kidney disease with stage 1 through stage 4 chronic kidney disease, or unspecified chronic kidney disease; E04.1 Nontoxic single thyroid nodule
CPT/HCPCS: 71045; 71275; 74174; 80048; 84484; 85025; 93005; 96361; 96374; 96375; 96376; 99284; J7030; Q9967; A4216; J2405

== ENCOUNTER → 2022-02-10 | Outpatient (CLI) | payer MEDICARE, SELFPAY ==
--- NOTE | 2022-02-10 07:45 | US_ITS ---
STUDY: THYROID ULTRASOUND REASON FOR EXAM: Male, 82 years old. Thyroid Nodule Follow-up ] TECHNIQUE: Ultrasound evaluation of the thyroid was performed with real-time and static nunez-scale imaging. COMPARISON: 04/02/2018 FINDINGS: RIGHT LOBE: The right lobe of the thyroid gland measures 5.5 x 2.4 x 2.7 cm. There is a homogeneous echotexture. Solid and cystic nodule (TR 3) in the right thyroid lobe measures 2.5 x 2.1 x 2.3 cm, mildly smaller since prior ultrasound. No new nodule. LEFT LOBE: The left lobe of the thyroid gland measures 4.8 x 1.9 x 2.2 cm. There is a homogeneous echotexture. There are 3 hypoechoic nodules (TR 4) of the left thyroid lobe measuring up to 8 mm, not significantly changed. No new nodule. ISTHMUS: The isthmus measures 7 mm. The regional lymph nodes are normal. US/Thyroid IMPRESSION: 1. No new or enlarging thyroid nodule. 2. Bilateral thyroid nodules; dominant nodule on the right has decreased in size since 2018. Electronically Signed: Josemanuel Szymanski MD ([place]) at 8:09 EDT ,
== END | disposition home or self-care (01) ==
PROVIDERS: PCP Internal Medicine; Referring Provider Internal Medicine; Visit Provider Internal Medicine
DX: E04.1 Nontoxic single thyroid nodule (principal)
CPT/HCPCS: 76536

== ENCOUNTER → 2022-05-01 | Outpatient (CLI) | payer MEDICARE, SELFPAY ==
[2022-05-01 11:01] LABS: Potassium 5.2 mmol/L (3.5-5.1)
== END | disposition home or self-care (01) ==
PROVIDERS: PCP Internal Medicine; Referring Provider Internal Medicine; Visit Provider Internal Medicine
DX: E87.5 Hyperkalemia (principal)
CPT/HCPCS: 84132

== ENCOUNTER → 2022-08-17 | Outpatient (CLI) | payer MEDICARE, SELFPAY ==
[2022-08-17 16:04] LABS: Anion Gap 7 (5-15); BUN 21 mg/dL (7-18); BUN/Creat Ratio 13.5 RATIO (10-20); Calcium,Total 8.4 mg/dL (8.5-10.1); Chloride 107 mmol/L (98-107); Creatinine, Serum 1.55 mg/dL (0.70-1.30); EST Glomerular Filtration Rate 46 mL/min (>60); Est Glom Filt Rate - Afr Amer 56 mL/min (>60); Glucose 160 mg/dL (74-106); Potassium 4.4 mmol/L (3.5-5.1); Sodium Level 141 mmol/L (136-145)
== END | disposition home or self-care (01) ==
LOC: MTLAB 13:05
PROVIDERS: PCP Internal Medicine; Referring Provider Internal Medicine Nephrology; Visit Provider Internal Medicine Nephrology
DX: N18.31 Chronic kidney disease, stage 3a (principal)
CPT/HCPCS: 36415; 80048

== ENCOUNTER → 2022-10-22 | Outpatient (CLI) | payer MEDICARE, SELFPAY ==
[2022-10-22 12:45] LABS: Erythrocyte Sedimentation Rate 11 mm/hr (0-20)
[2022-10-22 12:46] LABS: Absolute Lymphocyte Count 1.54 X10^3/uL (0.83-4.51); Basophil# 0.06 X10^3/uL; Basophil% 1.1 % (0-1); Eosinophil# 0.15 X10^3/uL; Eosinophils% 2.8 % (0-5); Hematocrit 48.6 % (40-54); Lymphocyte # 1.54 X10^3/ul (0.83-4.51); Lymphocyte % 28.8 % (19-41); Mean Corp Hgb Conc 32.9 g/dL (32-36); Mean Corpuscular Hgb 29.5 pg (27.0-32.0); Mean Corpuscular Volume 89.5 fL (80-94); Mean Platelet Vol. 10.6 fl (6.2-12.0); Monocyte% 11.2 % (0-10); NRBC Flagged by Analyzer 0 % (0-5); Neutrophil # 2.98 X10^3/uL (2.7-7.7); Neutrophil % 55.7 % (47-70); Platelet Count 205 K/mm3 (150-450); RBC Distribution Width CV 13.5 % (11.6-14.6); RBC Distribution Width SD 43.7 fl (35.1-43.9); Red Blood Count 5.43 M/mm3 (4.6-6.2); White Blood Count 5.4 K/mm3 (4.4-11.0)
[2022-10-22 13:20] LABS: ALB/GLOB Ratio 0.9 RATIO (0.9-2.4); AST(SGOT) 18 U/L (15-37); Alanine Aminotransfer ALT/SGPT 28 U/L (16-61); Albumin, Serum 3.3 g/dL (3.2-5.0); Alkaline Phosphatase 62 U/L (45-117); Anion Gap 4 (5-15); BUN 21 mg/dL (7-18); BUN/Creat Ratio 12.7 RATIO (10-20); CRP < 2.90 mg/L (0.0-3.0); Calcium,Total 8.7 mg/dL (8.5-10.1); Chloride 112 mmol/L (98-107); Creatinine, Serum 1.66 mg/dL (0.70-1.30); EST Glomerular Filtration Rate 42 mL/min (>60); Est Glom Filt Rate - Afr Amer 51 mL/min (>60); Globulin 3.5 g/dL (2.2-4.2); Glucose 97 mg/dL (74-106); Potassium 4.4 mmol/L (3.5-5.1); Protein, Total 6.8 g/dL (6.4-8.2); Sodium Level 139 mmol/L (136-145)
== END | disposition home or self-care (01) ==
LOC: MTLAB 10:37
PROVIDERS: PCP Internal Medicine; Referring Provider Internal Medicine Rheumatology; Visit Provider Internal Medicine Rheumatology
DX: M06.4 Inflammatory polyarthropathy (principal); Z79.899 Other long term (current) drug therapy
CPT/HCPCS: 36415; 80053; 85025; 85652; 86140

== ENCOUNTER 2022-12-17 00:41 | Observation (INO) | payer MEDICARE, SELFPAY ==
[2022-12-17] VITALS (12 sets, daily range): BP systolic 135–215; BP diastolic 74–116; PULSE 53–77; RESP 16–19; TEMP 36.3–36.8; O2SAT 96–100; BMI 32.4; BMI 31.8
--- NOTE | 2022-12-17 00:54 | EKG12_ITS ---
Test Reason : CP Blood Pressure : / mmHG Vent. Rate : 058 BPM Atrial Rate : 058 BPM P-R Int : 190 ms QRS Dur : 096 ms QT Int : 392 ms P-R-T Axes : 013 010 103 degrees QTc Int : 384 ms Sinus bradycardia Otherwise normal ECG Confirmed by JOSEPH MINOR, HOSEA ([id number]), magazine editor TAWNYA ZAVALA ([id number]) on 12/17/2022 10:25:07 AM Referred By: KIMBERLY Confirmed By:HOSEA RUIZ MD
--- NOTE | 2022-12-17 00:56 | EDS_ITS ---
HPI History of Present Illness Chief Complaint: Chest Pain Informant: patient and spouse/S.O. Narrative Narrative: Patient presents with chest pain. This patient states that over the last 3 or 4 days he has had episode of an aching in his mid thoracic area. This is not associated with shortness of breath nausea vomiting or diaphoresis. He thinks it was a little bit exertional at times though. It would come and go. In between episodes he was asymptomatic. However, he normally exercises and walks every single day. But the last 2 days he just has not felt like doing that because he feels more tired. He came in tonight because he got some aching in the front of his chest. He states it is almost completely gone now. It also did not really have any other symptoms with it. Patient had a single stent placed about 15 years ago. He evidently did have s imilar back symptoms with that. He did not have chest pain and dyspnea or anything else. Patient is on baby aspirin only. He states his blood pressure has been up in the past but never to the point where they thought it needed to be treated. He has some high cholesterol history but is not on meds for it. On review of his medical history it looks like he had a stent to the mid LAD about 10 years ago. He does see Dr. Khan and last saw him about a year ago. [facility] Medical History (Updated 12/17/22 @ 02:[address] Osvaldo Bolaños MD) Atherosclerotic heart disease of [place] coronary artery without angina pectoris CKD (chronic kidney disease) stage 3, GFR 30-59 ml/min COVID-19 (08/14/21) History of tapeworm infection Hyperlipidemia Perforation of sigmoid colon due to diverticulitis Prostate cancer TIA (transient ischemic attack) (09/2018) Home Medications cholecalciferol (vitamin D3) 50 mcg (2,000 unit) chewable tablet 2,000 unit PO DAILY SUPPLEMENT 10/10/18 [History Last Taken 10/25/18] aspirin 81 mg tablet,delayed release (Adult Aspirin Regimen) 81 mg PO DAILY 03/07/21 [History Last Taken Unknown] latanoprost 0.005 % eye drops 1 drp EACH EYE DAILY 08/17/21 [History Last Taken Unknown] ascorbic acid (vitamin C) 500 mg tablet (Vitamin C) 500 mg PO DAILY 01/29/22 [History Last Taken Unknown] ondansetron 4 mg disintegrating tablet 4 mg PO Q8H PRN nausea and vomiting #10 tabs 01/29/22 [Rx Last Taken Unknown] zinc 10 mg tablet 10 mg PO DAILY 01/29/22 [History Last Taken Unknown] Allergy/AdvReac Type Severity Reaction Status Date / Time No Known Allergies Allergy Verified 12/17/22 00:44 Family History Mother Heart disease Father Heart disease CAD (coronary artery disease) COPD (chronic obstructive pulmonary disease) Surgical History History of Achilles tendon repair History of appendectomy History of colonoscopy (2008) History of coronary artery stent placement (02/06/13) History of laparoscopic cholecystectomy History of right inguinal hernia History of tonsillectomy Social History household members: spouse Smoking Status: Former smoker how long ago did patient quit smoking: Quit ~34-35 years prior, used pipe occasionally. alcohol intake: current alcohol intake frequency: holidays/special occasions only substance use type: does not use ROS ROS ED ROS Narrative A complete review of systems was performed and is negative except as documented in the history of present illness. Some specific details below. Constitutional: No recent fevers or chills. Mild malaise. EYE: No discharge, visual complaints, or pain. ENT: No difficulty swallowing. No swelling. No pain. No reflux symptoms. CV: See history of present illness. Respiratory: Denies dyspnea coughing or hemoptysis. GI: No abdominal pain. No nausea vomiting diarrhea. No blood in stool. : No frequency dysuria or hematuria. Musculoskeletal: No recent trauma. No pains. No swelling. No history of DVT. Skin: No rash. Nondiaphoretic. Neuro: No weakness or numbness. Endocrine: No polyuria or polydipsia. EXAM Physical Exam Narrative Exam Narrative: CONSTITUTIONAL: Patient is nontoxic in appearance. The patient looks comfortable. Work of breathing looks normal. HEENT: No notable trauma. Mucous membranes moist. EYES: No conjunctival injection. No proptosis. No pallor. NECK:No JVD. No stridor. CARDIOVASCULAR: Regular rate. Regular rhythm. No notable murmur. No JVD. Tones are not muffled. Peripheral pulses are equal. RESPIRATORY: No respiratory distress. Breathing is unlabored. No wheezes. No rhonchi. No rales. No pain with a deep breath. No chest wall tenderness. GASTROINTESTINAL: Not distended. Bowel sounds are normal. No tenderness. No guarding. No rebound. No palpable mass. No bruit is heard. GENITOURINARY: No tenderness over the bladder. No CVA tenderness. MUSCULOSKELETAL: Atraumatic. No peripheral edema. No cord. No tenderness along the deep venous system. No asymmetry. No distended veins. NEUROLOGICAL: Patient is alert and appropriate. No focal deficit noted. SKIN: No noted rashes. No diaphoresis. No pallor. PSYCHIATRIC: Patient is calm. Mood is appropriate. Const Vital Signs: 12/17/22 00:41 12/17/22 00:45 12/17/22 00:47 Temperature 97.6 F L Temperature Source Temporal Pulse Rate 60 Respiratory Rate 19 H Respiratory Effort Normal Non-Labored Blood Pressure 215/116 H 199/110 H Blood Pressure Mean 149 139 Pulse Ox 98 Oxygen Delivery Method Room Air 12/17/22 01:00 12/17/22 01:13 12/17/22 01:39 Temperature Temperature Source Pulse Rate 58 L 55 L Respiratory Rate Respiratory Effort Blood Pressure 199/110 H 139/87 H Blood Pressure Mean Pulse Ox Oxygen Delivery Method Room Air 12/17/22 01:41 12/17/22 02:00 12/17/22 02:15 Temperature 97.5 F L Temperature Source Temporal Pulse Rate 55 L 57 L 77 Respiratory Rate 19 H 17 16 Respiratory Effort Blood Pressure 139/87 H 142/83 H 143/86 H Blood Pressure Mean 104 102 105 Pulse Ox 97 96 97 Oxygen Delivery Method Room Air Room Air Room Air Heart Score History: Slightly/Non-Suspicious ECG: Nonspecific Repolarization Age: >/= 65 years Risk Factors: >/= 3 Risk Factors or History of CAD Troponin: </= Normal Limit Score: 5 MDM MDM MDM Narrative Medical decision making narrative: My independent interpretation of the patient's single view but to image chest x- ray shows no acute process. Final reading is no radiographic evidence of acute cardiopulmonary disease. Patient CBC is normal other than minimally elevated hemoglobin. Electrolytes show no marked abnormalities. He does have baseline renal dysfunction with a creatinine of 1.59 and a GFR 45. But this is really near his baseline. Troponin is negative at 61. His only other troponins in the computer were at 16. So this is a relative elevation but it is still a normal troponin for his first troponin. Patient did receive 2 nitro. His pressures come down. He had a slight headache afterwards. But he has no chest pain. He has a heart score of 5. He has not had a stent in 10 years. He did have a stress test about 2 years ago which was relatively normal but his symptoms are concerning as he states he had back aches symptoms prior to his last stent. I discussed the case with hospitalist who is seeing the patient in the emergency department at this time. My initial impression from his chief complaint with back pain his age and blood pressure was that he may need CT scan of the chest. But evidently has a history of blood pressure but is not on meds because he has had reactions or intolerance or worsening renal function to them. His back pain is an aching sense. It comes and goes and tends to be exertional. Its not tearing ripping or severe. He has good pulses. No cough dyspnea or hemoptysis. I do not think he needs CT scan of the chest. Lab Data Attestation: I reviewed the patient's lab results. Labs: Laboratory Results - last 24 hr 12/17/22 12/17/22 00:45 00:45 WBC 6.5 RBC 5.94 Hgb 16.9 H Hct 52.4 MCV 88.2 MCH 28.5 MCHC 32.3 RDW Std Deviation 41.6 RDW Coeff of Anyi 12.8 Plt Count 218 MPV 10.4 Immature Gran % (Auto) 0.300 Neut % (Auto) 44.9 L Lymph % (Auto) 39.0 [place] % (Auto) 11.4 H Eos % (Auto) 3.5 Baso % (Auto) 0.9 Absolute Neuts (auto) 2.9 Absolute Lymphs (auto) 2.53 Nucleated RBC % 0 Sodium 139 Potassium 4.8 Chloride 108 H Carbon Dioxide 26.0 Anion Gap 5 BUN 21 H Creatinine 1.59 H Estim Creat Clear Calc 38.81 Est GFR (MDRD) Af Amer 54 L Est GFR (MDRD) Non-Af 45 L BUN/Creatinine Ratio 13.2 Glucose 108 H Calcium 8.7 Troponin I High Sens 61 Radiography Diagnostic Testing: Clinical Impression(s) from Imaging Studies Chest X-Ray 12/17/22 01:05 IMPRESSION: No radiographic evidence of acute cardiopulmonary disease. Electronically Signed: Coleman Schmitt MD at 1:26 EDT , EKG Initial EKG: Comments: My independent interpretation of the patient's EKG done for chest pain shows sinus rhythm with mild bradycardic rate at 58. No ventricular ectopy. There are some nonspecific ST and T wave changes and slight J-point elevation in lead III but no convincing evidence of infarct or ischemia. OK interval, QRS duration and QTc are normal. Management Discussion w/another healthcare provider: Hospitalist Discharge Plan Triage Chief Complaint: Chest Pain ED Provider: Osvaldo Bolaños Dx/Rx/DC Orders Clinical Impression: Chest pain, CKD (chronic kidney disease) stage 3, GFR 30-59 ml/min, Coronary artery disease, Elevated blood pressure reading Primary Care Provider: Jazlyn Richard Disposition Disposition: Acute Care Hospital [facility]
[2022-12-17 01:03] LABS: Absolute Lymphocyte Count 2.53 X10^3/uL (0.83-4.51); Absolute Neutrophil Count 2.9 X10^3/uL (2.0-7.7); Basophil# 0.06 X10^3/uL; Basophil% 0.9 % (0-1); Eosinophil# 0.23 X10^3/uL; Eosinophils% 3.5 % (0-5); Hematocrit 52.4 % (40-54); Hemoglobin 16.9 g/dL (13.0-16.5); Lymphocyte # 2.53 X10^3/ul (0.83-4.51); Mean Corp Hgb Conc 32.3 g/dL (32-36); Mean Corpuscular Hgb 28.5 pg (27.0-32.0); Mean Corpuscular Volume 88.2 fL (80-94); Mean Platelet Vol. 10.4 fl (6.2-12.0); Monocyte# 0.74 X10^3/uL; Monocyte% 11.4 % (0-10); NRBC Flagged by Analyzer 0 % (0-5); Neutrophil # 2.91 X10^3/uL (2.7-7.7); Neutrophil % 44.9 % (47-70); Platelet Count 218 K/mm3 (150-450); RBC Distribution Width CV 12.8 % (11.6-14.6); RBC Distribution Width SD 41.6 fl (35.1-43.9); Red Blood Count 5.94 M/mm3 (4.6-6.2); White Blood Count 6.5 K/mm3 (4.4-11.0)
--- NOTE | 2022-12-17 01:05 | RAD_ITS ---
INDICATION: chest pain EXAMINATION/TECHNIQUE: X-RAY - XR Chest 1 View COMPARISON: Chest x-ray from 01/29/2022 FINDINGS: LINES/DEVICES: None. LUNGS: No pulmonary edema or focal airspace consolidation. No sizable pleural effusion. No pneumothorax detected. Stable slightly elevated right hemidiaphragm. MEDIASTINUM AND CARDIOVASCULAR STRUCTURES: Heart size within normal limits. Mediastinal contours unremarkable. BONES AND SOFT TISSUES: No acute findings. RAD/Chest 1 View (Portable) IMPRESSION: No radiographic evidence of acute cardiopulmonary disease. Electronically Signed: Coleman Schmitt MD at 1:26 EDT ,
[2022-12-17] MEDS: Aspirin 81 MG TAB.CHEW 324 MG PO (01:12)
[2022-12-17] MEDS: Nitroglycerin SL (ED/IMG/CATH) 0.4 MG TABLET SL ×2 (01:13→01:39)
[2022-12-17 01:19] LABS: Anion Gap 5 (5-15); BUN 21 mg/dL (7-18); BUN/Creat Ratio 13.2 RATIO (10-20); Calcium,Total 8.7 mg/dL (8.5-10.1); Chloride 108 mmol/L (98-107); Creatinine, Serum 1.59 mg/dL (0.70-1.30); EST Glomerular Filtration Rate 45 mL/min (>60); Est Glom Filt Rate - Afr Amer 54 mL/min (>60); Estimated Creatinine Clearance 38.81 ml/min; Glucose 108 mg/dL (74-106); Potassium 4.8 mmol/L (3.5-5.1); Sodium Level 139 mmol/L (136-145); Troponin-I HS (w/2H Reflex) 61 pg/mL (3.0-78.0)
--- NOTE | 2022-12-17 02:14 | HP.PCM.HOS_ITS ---
HPI - General General Date of Admission: 12/17/22 Date of Service: 12/17/22 Chief Complaint: Chest pain, intermittent thoracic discomfort. HPI Narrative #The patient is an 82 y/o M w/ PMHx: CKD stage III unclear subtype, Obesity, HTN, HLD, CAD s/p PCI 02/06/2013, Hx TIA, Hx Prostate CA, Former tobacco use who presents to the [facility] ED on 12/17/22 with history of ongoing discomfort and aching in the mid thoracic and front midsternal chest region over the last 3 to 4 days noted to be intermittent and occasionally worsened with exertion reportedly completely improving in between waxing and waning with no associated dyspnea, nausea, emesis or diaphoresis reportedly feeling more fatigued than his baseline as he normally does walk daily however the last 2 days he has not done so eventually prompting presentation secondary to his discomfort realizing that it been similar to when his stent was placed remotely. Patient is only on a baby aspirin. Patient has previously been on lisinopril but this was discontinued as his blood pressure was appropriate range and he had renal dysfunction associated. When he having his back discomfort he rates it 3-4 out of 10 in severity and more aching. He notes his chest discomfort is and rated this 8 out of 10 in severity. Both have resolved currently. Work-up in the ED included T97.6, heart rate 60, BP initially 215/116, respiratory rate 19, 98% on room air, most recent repeat vitals heart rate 57, BP 142/83, respiratory rate 17, 96% on room air, CBC with WC 6.5, hemoglobin 16.9, platelet 218 without marked shift, BMP with chloride 108, BUN/creatinine 21/1.59, glucose 108, troponin 61, chest x-ray with no acute cardiopulmonary findings, EKG with sinus rhythm, bradycardic with nonspecific ST-T wave changes and a slight J-point elevation in lead III no evidence of acute ischemia. In the ED patient ministered full- strength aspirin therapy and nitroglycerin sublingual regimen. [facility] Medical History (Updated 12/17/22 @ 02:[address] Osvaldo Bolaños MD) Atherosclerotic heart disease of [place] coronary artery without angina pectoris CKD (chronic kidney disease) stage 3, GFR 30-59 ml/min COVID-19 (08/14/21) History of tapeworm infection Hyperlipidemia Perforation of sigmoid colon due to diverticulitis Prostate cancer TIA (transient ischemic attack) (09/2018) Home Medications cholecalciferol (vitamin D3) 50 mcg (2,000 unit) chewable tablet 2,000 unit PO DAILY SUPPLEMENT 10/10/18 [History Last Taken 10/25/18] aspirin 81 mg tablet,delayed release (Adult Aspirin Regimen) 81 mg PO DAILY 03/07/21 [History Last Taken Unknown] latanoprost 0.005 % eye drops 1 drp EACH EYE DAILY 08/17/21 [History Last Taken Unknown] ascorbic acid (vitamin C) 500 mg tablet (Vitamin C) 500 mg PO DAILY 01/29/22 [History Last Taken Unknown] ondansetron 4 mg disintegrating tablet 4 mg PO Q8H PRN nausea and vomiting #10 tabs 01/29/22 [Rx Last Taken Unknown] zinc 10 mg tablet 10 mg PO DAILY 01/29/22 [History Last Taken Unknown] Allergy/AdvReac Type Severity Reaction Status Date / Time No Known Allergies Allergy Verified 12/17/22 00:44 Family History Mother Heart disease Father Heart disease CAD (coronary artery disease) COPD (chronic obstructive pulmonary disease) Surgical History History of Achilles tendon repair History of appendectomy History of colonoscopy (2008) History of coronary artery stent placement (02/06/13) History of laparoscopic cholecystectomy History of right inguinal hernia History of tonsillectomy Social History household members: spouse Smoking Status: Former smoker how long ago did patient quit smoking: Quit ~34-35 years prior, used pipe occasionally. alcohol intake: current alcohol intake frequency: holidays/special occasions only substance use type: does not use ROS ROS Narrative Admission Review of Systems: CONSTITUTIONAL: No weight loss, fever, chills, + weakness or fatigue. HEENT: Eyes: No visual loss, blurred vision, double vision or yellow sclerae. Ears, Nose, Throat: No hearing loss, sneezing, congestion, runny nose or sore throat. SKIN: No rash or itching, lesions, wounds. CARDIOVASCULAR: + chest pain, chest pressure or chest discomfort, No palpitations, edema, orthopnea, syncopal events. RESPIRATORY: No shortness of breath, cough or sputum, wheezing, hemoptysis. GASTROINTESTINAL: No anorexia, nausea, vomiting or diarrhea, abdominal pain, melena, BRBPR. GENITOURINARY: No dysuria, frequency, urgency or retention. NEUROLOGICAL: No headache, dizziness, syncope, paralysis, ataxia, numbness or tingling in the extremities, focal weakness, change in bowel or bladder control, seizure. MUSCULOSKELETAL: + muscle, back pain, joint pain or stiffness. HEMATOLOGIC: + Easy bleeding or bruising. LYMPHATICS: No enlarged nodes. No history of splenectomy. PSYCHIATRIC: No history of depression or anxiety. ENDOCRINOLOGIC: No reports of sweating, cold or heat intolerance. No polyuria or polydipsia. ALLERGIES: No history of asthma, hives, eczema or rhinitis. Vital Signs Vital Signs Vital Signs: 12/17/22 00:41 12/17/22 00:45 12/17/22 00:47 Temperature 97.6 F L Temperature Source Temporal Pulse Rate 60 Respiratory Rate 19 H Respiratory Effort Normal Non-Labored Blood Pressure 215/116 H 199/110 H Blood Pressure Mean 149 139 Pulse Ox 98 Oxygen Delivery Method Room Air 12/17/22 01:00 12/17/22 01:13 12/17/22 01:39 Temperature Temperature Source Pulse Rate 58 L 55 L Respiratory Rate Respiratory Effort Blood Pressure 199/110 H 139/87 H Blood Pressure Mean Pulse Ox Oxygen Delivery Method Room Air 12/17/22 01:41 12/17/22 02:00 Temperature Temperature Source Pulse Rate 55 L 57 L Respiratory Rate 19 H 17 Respiratory Effort Blood Pressure 139/87 H 142/83 H Blood Pressure Mean 104 102 Pulse Ox 97 96 Oxygen Delivery Method Room Air Room Air Weight Weight: 232 lb 9.403 oz Body Mass Index (BMI) 32.4 Physical Exam Narrative Physical Examination: General: Awake, alert, oriented x 3 and cooperative, seated upright in the ED bed, fatigued, notes chest discomfort and mid thoracic discomfort is completely resolved. Skin: Normal color, normal turgor, no icterus, no cyanosis except occasional staged ecchymoses. HEENT: AT/NC, EOMI, PERRLA, MMM, no carotid bruits or JVD noted. Lungs: Mildly diminished, greater bases, appropriate effort, no rales, ronchi or wheezing. Heart: Currently regular rate and rhythm; no gallop, rub audible. Abdomen: Soft, obese, NTTP, ND, mildly hyperactive BS, no HSM. Extremities: No cyanosis, no clubbing, mild peripheral ankle nonpitting edema. Neurological: Patient awake, alert, oriented as noted, cognitive function intact; pupils equally reactive to light and accommodation, cranial nerves II- XII grossly normal, moving all 4 extremities, no focal deficits, strength mildly globally decreased secondary to acute complaints. Psychiatric: Affect appears fatigued otherwise normal, no acute evidence of depressive or anxiety feelings. Results Lab / Micro Data Result Diagrams: 12/17/22 00:45 12/17/22 00:45 Labs: Laboratory Results - last 24 hr 12/17/22 00:45: WBC 6.5, RBC 5.94, Hgb 16.9 H, Hct 52.4, MCV 88.2, MCH 28.5, MCHC 32.3, RDW Std Deviation 41.6, RDW Coeff of Anyi 12.8, Plt Count 218, MPV 10.4, Immature Gran % (Auto) 0.300, Neut % (Auto) 44.9 L, Lymph % (Auto) 39.0, [place] % (Auto) 11.4 H, Eos % (Auto) 3.5, Baso % (Auto) 0.9, Absolute Neuts (auto) 2.9, Absolute Lymphs (auto) 2.53, Nucleated RBC % 0 12/17/22 00:45: Sodium 139, Potassium 4.8, Chloride 108 H, Carbon Dioxide 26.0, Anion Gap 5, BUN 21 H, Creatinine 1.59 H, Estim Creat Clear Calc 38.81, Est GFR (MDRD) Af Amer 54 L, Est GFR (MDRD) Non-Af 45 L, BUN/Creatinine Ratio 13.2, Glucose 108 H, Calcium 8.7, Troponin I High Sens 61 Radiology Impression Chest X-Ray 12/17/22 01:05 IMPRESSION: No radiographic evidence of acute cardiopulmonary disease. Electronically Signed: Coleman Schmitt MD at 1:26 EDT , Assessment & Plan Assessment/Plan (1) Chest pain: PLAN: Plan The patient is an 82 y/o M w/ PMHx: CKD stage III unclear subtype, Obesity, HTN, HLD, CAD s/p PCI 02/06/2013, Hx TIA, Hx Prostate CA, Former tobacco use who presents to the [facility] ED on 12/17/22 with history of ongoing discomfort and aching in the mid thoracic and front midsternal chest region over the last 3 to 4 days noted to be intermittent and occasionally worsened with exertion reportedly completely improving in between waxing and waning with no associated dyspnea, nausea, emesis or diaphoresis reportedly feeling more fatigued than his baseline as he normally does walk daily however the last 2 days he has not done so eventually prompting presentation secondary to his discomfort realizing that it been similar to when his stent was placed remotely. #1. Chest Pain: ED evaluation included troponin 61, chest x-ray with no acute cardiopulmonary findings, EKG with sinus rhythm, bradycardic with nonspecific ST-T wave changes and a slight J-point elevation in lead III no evidence of acute ischemia. Will admit to PCU, place on a monitored bed to assure no acute myocardial infarction with serial cardiac enzymes and EKGs. If repeat serial cardiac enzymes and EKGs remain unremarkable will pursue a.m. cardiac stress testing. Mag pending. FLP in AM. SESAR HADLEY. #2. Hypertensive urgency: Patient with significantly elevated blood pressure upon presentation, has been diagnosed previously with hypertension but has not been on regimen as its been only mildly above goal, currently BP improved following SL NG administration, given improvement BP and discomfort will continue with NG paste. #3. CAD: Status post angioplasty and stenting mid LAD 2012, most recent stress testing 03/20/2021 noted to be normal with a preserved EF at that time, will continue aspirin, not on statin with lifestyle/diet intervention per most recent cardiology note, not on RAMANA inhibitor secondary to prior issues with renal function alteration Per most recent cardiology note, not on beta-jonathan therapy with bradycardia noted upon presentation potentially the etiology. #4. Hx Prostate CA: s/p prostate CA seed insertion, considered in remission, encourage continued outpatient follow-up with urology as previously arranged. #5. Chronic Kidney Disease Stage III, unclear subtype: Admission BUN/Cr 21/1.59, baseline renal function primarily 1.4-1.6, repeat BMP in AM. #6. Hyperlipidemia: Not on statin therapy and per most recent cardiology note had been managing with diet and lifestyle, FLP in AM. #7. History TIA: We will continue aspirin, not on any cholesterol type medication, not on a hypertensive regimen with no hypertensive previous diagnosis. #8. Obesity: Weight loss and lifestyle changes encouraged. #9. Former tobacco use: Encourage continued tobacco cessation. #10. DVT prophylaxis: Lovenox. #11. CODE status: Patient DAMARIS is his who is present and living will is currently in place. Discussed CODE status at length including difference between FULL code, DNR-CCA and DNR-CC status. Following discussions about the differences in these status, requested Full Code status. Advanced Care Planning Face to Face Time: 16 minutes. Admission Evaluation Time spent evaluating chart, patient history, patient evaluation, care planning and discussion with specialists: 55 minutes. Charges/Coding Visit Charges Inpatient E&M: 40360 Init Hosp L2 Procedures Hospitalists Procedures: 75465 Advncd Care Plan 30 Min
[2022-12-17 03:02] LABS: Reflex Troponin-HS? (from REC) Y
[2022-12-17 03:08] LABS: Magnesium 2.2 mg/dL (1.6-2.6)
--- NOTE | 2022-12-17 03:10 | EKG12_ITS ---
Test Reason : CP Blood Pressure : / mmHG Vent. Rate : 053 BPM Atrial Rate : 053 BPM P-R Int : 198 ms QRS Dur : 090 ms QT Int : 412 ms P-R-T Axes : 018 016 098 degrees QTc Int : 386 ms Sinus bradycardia Nonspecific T wave abnormality Abnormal ECG When compared with ECG of 29-JAN-2022 08:26, Nonspecific T wave abnormality, worse in Lateral leads Confirmed by JOSEPH MINOR, HOSEA ([id number]), desk editor TAWNYA ZAVALA ([id number]) on 12/18/2022 9:07:43 AM Referred By: Confirmed By:HOSEA RUIZ MD
[2022-12-17] MEDS: Nitroglycerin Oint 1 INCH PACKET 0.5 INCH TD ×2 (03:49→20:14)
[2022-12-17] MEDS: 0.9% Normal Saline 1,000 ML 100 ML IV (03:50)
[2022-12-17] MEDS: 0.9% Saline Lock 10 ML Syringe IV (03:50)
[2022-12-17 03:59] LABS: Absolute Lymphocyte Count 1.52 X10^3/uL (0.83-4.51); Absolute Neutrophil Count 3.1 X10^3/uL (2.0-7.7); Basophil# 0.05 X10^3/uL; Basophil% 0.9 % (0-1); Eosinophil# 0.13 X10^3/uL; Eosinophils% 2.4 % (0-5); Hematocrit 46.2 % (40-54); Hemoglobin 14.9 g/dL (13.0-16.5); Lymphocyte # 1.52 X10^3/ul (0.83-4.51); Lymphocyte % 28.6 % (19-41); Mean Corp Hgb Conc 32.3 g/dL (32-36); Mean Corpuscular Hgb 28.8 pg (27.0-32.0); Mean Corpuscular Volume 89.2 fL (80-94); Mean Platelet Vol. 10.3 fl (6.2-12.0); Monocyte% 9.4 % (0-10); NRBC Flagged by Analyzer 0 % (0-5); Neutrophil # 3.09 X10^3/uL (2.7-7.7); Neutrophil % 58.3 % (47-70); Platelet Count 177 K/mm3 (150-450); RBC Distribution Width CV 12.9 % (11.6-14.6); RBC Distribution Width SD 42.4 fl (35.1-43.9); Red Blood Count 5.18 M/mm3 (4.6-6.2); White Blood Count 5.3 K/mm3 (4.4-11.0)
[2022-12-17 04:21] LABS: AST(SGOT) 15 U/L (15-37); Alanine Aminotransfer ALT/SGPT 26 U/L (16-61); Albumin, Serum 2.8 g/dL (3.2-5.0); Alkaline Phosphatase 62 U/L (45-117); Anion Gap 4 (5-15); BUN 20 mg/dL (7-18); BUN/Creat Ratio 14.1 RATIO (10-20); Calcium,Total 7.8 mg/dL (8.5-10.1); Chloride 111 mmol/L (98-107); Creatinine, Serum 1.42 mg/dL (0.70-1.30); EST Glomerular Filtration Rate 51 mL/min (>60); Est Glom Filt Rate - Afr Amer 61 mL/min (>60); Estimated Creatinine Clearance 43.45 ml/min; Globulin 2.8 g/dL (2.2-4.2); Glucose 102 mg/dL (74-106); Potassium 4.7 mmol/L (3.5-5.1); Protein, Total 5.6 g/dL (6.4-8.2); Sodium Level 141 mmol/L (136-145); Troponin-I HS 77 pg/mL (3.0-78.0)
[2022-12-17 08:42] LABS: Troponin-I HS 137 pg/mL (3.0-78.0)
--- NOTE | 2022-12-17 11:03 | CASEMGMT ---
Social Work As per admitting RN, pt has LW/POA, not able to bring in the documents. Pt states is his POA. LISBETH Sharma
[2022-12-17] MEDS: Acetaminophen 325 MG Tablet 650 MG PO ×2 (14:17→20:15)
--- NOTE | 2022-12-17 16:07 | CPS ---
Patient being D/C'd and refuses to do I.S. & PEP further
--- NOTE | 2022-12-17 17:20 | CON.PCM.CA_ITS ---
Assessment & Plan Assessment/Plan (1) Chest pain: PLAN: Presented with chest discomfort which had some features which were rather concerning for angina. He underwent a stress test which was abnormal and my recommendation at this time will be to proceed with a left heart catheterization. The risk benefits alternatives have been discussed with him he understands and agrees to proceed. (2) History of coronary artery stent placement: PLAN: He is status post stent placement remotely in his left anterior descending artery. The plan at this time would be to proceed with a left heart catheterization. (3) Abnormal stress test: PLAN: He does have evidence of abnormal inferior ischemia. The plan number to pursue a left heart catheterization and the risk benefits alternatives have been explained to him he understands and agrees to proceed. (4) Hyperlipidemia: PLAN: He will continue with aggressive risk factor modification with high intensity statin. Thank you for allowing me to participate in the care of your patient. Please don't hesitate to call if any issues arise. HPI Consult Data Date of Consult: 12/17/22 HPI Narrative HPI Narrative: ERI GUEVARA, is a 82 M who presents to the emergency room with ongoing discomfort and aching in the mid thoracic and chest area for 3 to 4 days. He noticed that he was getting it with exertion and it was going away with rest. He was also having more back discomfort. This was occurring quite frequently and so he presented to the emergency room and his blood pressure was noted to be markedly elevated initially. His EKG demonstrated sinus bradycardia with nonspecific ST changes. He was administered aspirin as well as nitroglycerin with improvement of his symptomatology as well as blood pressure medication. He was scheduled for and underwent a stress test today which demonstrated evidence of ischemia in the inferior wall and cardiology was called for further evaluation and management. He has had no dizziness or diaphoresis near syncope or syncope. I see remember he had a previous LAD stent with PCI in January 2013. He also has a history of hypertension hyperlipidemia and stage III renal dysfunction. [facility] Medical History Atherosclerotic heart disease of [place] coronary artery without angina pectoris CKD (chronic kidney disease) stage 3, GFR 30-59 ml/min COVID-19 (08/14/21) Former smoker Glaucoma History of tapeworm infection Hyperlipidemia Macular degeneration of both eyes Perforation of sigmoid colon due to diverticulitis Prostate cancer TIA (transient ischemic attack) (09/2018) Home Medications cholecalciferol (vitamin D3) 50 mcg (2,000 unit) chewable tablet 2,000 unit PO DAILY SUPPLEMENT 10/10/18 [History Last Taken 10/25/18] aspirin 81 mg tablet,delayed release (Adult Aspirin Regimen) 81 mg PO DAILY 03/07/21 [History Last Taken Unknown] latanoprost 0.005 % eye drops 1 drp EACH EYE BID Check with primary doctor 08/17/21 [History Last Taken Unknown] ascorbic acid (vitamin C) 500 mg tablet (Vitamin C) 500 mg PO DAILY 01/29/22 [History Last Taken Unknown] zinc 10 mg tablet 10 mg PO DAILY supplement 01/29/22 [History Last Taken Unknown] Allergy/AdvReac Type Severity Reaction Status Date / Time No Known Allergies Allergy Verified 12/17/22 00:44 Family History Mother Heart disease Father Heart disease CAD (coronary artery disease) COPD (chronic obstructive pulmonary disease) Surgical History History of Achilles tendon repair History of appendectomy History of colonoscopy (2008) History of coronary artery stent placement (02/06/13) History of laparoscopic cholecystectomy History of right inguinal hernia History of tonsillectomy Social History household members: spouse Smoking Status: Former smoker how long ago did patient quit smoking: Quit ~34-35 years prior, used pipe occasionally. alcohol intake: current alcohol intake frequency: holidays/special occasions only substance use type: does not use ROS Constitutional Constitutional: Denies fever(s) or weight loss Eyes Eyes: Reports systems reviewed and no addt'l complaints, except as documented ENT HEENT: Reports systems reviewed and no addt'l complaints, except as documented Cardiovascular Cardiovascular: Reports chest pain with activity; Denies chest pain at rest, dyspnea at rest, dyspnea on exertion, edema, palpitations or paroxysmal n octurnal dyspnea Respiratory/Chest Respiratory/Chest: Denies dyspnea on exertion, productive cough, shortness of breath at rest or shortness of breath with exertion Gastrointestinal Gastrointestinal: Denies change in bowel habits, nausea, vomiting or weight changes Genitourinary Genitourinary: Denies difficulty urinating Musculoskeletal Musculoskeletal: Denies joint stiffness or muscle weakness Integumentary Integumentary: Denies lesions Neurologic Neurologic: Denies dizziness or syncope Psychiatric Psychiatric: Denies anxiety Endocrine Endocrinology: Denies excessive sweating or fatigue Hematologic/Lymphatic Hematologic/Lymphatic: Denies anemia Allergic/Immunologic Allergic/Immunologic: Denies seasonal rhinorrhea Physical Exam Const alert, oriented x3 and no apparent distress General Appearance: cooperative HEENT hearing grossly normal bilaterally Head and Scalp: atraumatic Eyes EOMs intact bilaterally Neck General: normal visual inspection Chest inspection of chest normal and palpation of chest normal Resp normal respiratory effort Auscultation: clear to auscultation bilaterally Cardio regular rate, regular rhythm, S1 normal heart sound and S2 normal heart sound Jugular Venous Distention: JVD GI normal to inspection, nondistended, normoactive bowel sounds Extremity normal capillary refill and no pedal edema Peripheral Pulses: Yes pulses 2+ throughout and femoral pulses present Skin no rashes or lesions noted Neuro oriented x3 and CN's II-XII intact bilaterally Psych Appearance: grossly normal and appropriate Risk Stratification Risk Stratification Applicable: Yes Age >/= 65: Yes >/= 3 CAD Risk Factors (HTN, HLD, DM, family hx of CAD, or current smoker): Yes Aspirin Use in the Past 7 Days: Yes Severe Angina (>/= episodes in 24 hours): Yes EKG ST Changes >/= 0.5mm: No Positive Cardiac Marker: Yes PORFIRIO Risk Stratification Score: 5 OPRFIRIO % Risk: 25% Risk Objective Data Vital Signs: Vital Signs Temp Pulse Resp BP Pulse Ox O2 Del Method 97.7 F L 61 16 157/90 H 98 Room Air 12/17/22 17:05 12/17/22 17:05 12/17/22 17:05 12/17/22 17:05 12/17/22 17:05 12/17/22 17:05 Oxygen Delivery Method Room Air Weight: 228 lb 9.91 oz Body Mass Index (BMI) 31.8 Intake & Output: Intake and Output for Last 24 Hours 12/15/22 12/16/22 12/17/22 23:59 23:59 23:59 Intake Total 1120.00 / 1120.00 Balance 1120.00 / 1120.00 Lab / Micro Data Result Diagrams: 12/17/22 03:45 12/17/22 03:45 Labs: Laboratory Results - last 24 hr 12/17/22 00:45: WBC 6.5, RBC 5.94, Hgb 16.9 H, Hct 52.4, MCV 88.2, MCH 28.5, MCHC 32.3, RDW Std Deviation 41.6, RDW Coeff of Anyi 12.8, Plt Count 218, MPV 10.4, Immature Gran % (Auto) 0.300, Neut % (Auto) 44.9 L, Lymph % (Auto) 39.0, [place] % (Auto) 11.4 H, Eos % (Auto) 3.5, Baso % (Auto) 0.9, Absolute Neuts (auto) 2.9, Absolute Lymphs (auto) 2.53, Nucleated RBC % 0 12/17/22 00:45: Sodium 139, Potassium 4.8, Chloride 108 H, Carbon Dioxide 26.0, Anion Gap 5, BUN 21 H, Creatinine 1.59 H, Estim Creat Clear Calc 38.81, Est GFR (MDRD) Af Amer 54 L, Est GFR (MDRD) Non-Af 45 L, BUN/Creatinine Ratio 13.2, Glucose 108 H, Calcium 8.7, Troponin I High Sens 61 12/17/22 00:45: Magnesium 2.2 12/17/22 03:45: WBC 5.3, RBC 5.18, Hgb 14.9, Hct 46.2, MCV 89.2, MCH 28.8, MCHC 32.3, RDW Std Deviation 42.4, RDW Coeff of Anyi 12.9, Plt Count 177, MPV 10.3, Immature Gran % (Auto) 0.400, Neut % (Auto) 58.3, Lymph % (Auto) 28.6, [place] % (Auto) 9.4, Eos % (Auto) 2.4, Baso % (Auto) 0.9, Absolute Neuts (auto) 3.1, Absolute Lymphs (auto) 1.52, Nucleated RBC % 0 12/17/22 03:45: Sodium 141, Potassium 4.7, Chloride 111 H, Carbon Dioxide 26.0, Anion Gap 4 L, BUN 20 H, Creatinine 1.42 H, Estim Creat Clear Calc 43.45, Est GFR (MDRD) Af Amer 61, Est GFR (MDRD) Non-Af 51 L, BUN/Creatinine Ratio 14.1, Glucose 102, Calcium 7.8 L, Total Bilirubin 0.30, AST 15, ALT 26, Alkaline Phosphatase 62, Troponin I High Sens 77, Total Protein 5.6 L, Albumin 2.8 L, Globulin 2.8, Albumin/Globulin Ratio 1.0 12/17/22 08:03: Troponin I High Sens 137 H* Cardiology Labs/Tests 12/17/22 00:45: WBC 6.5, RBC 5.94, Hgb 16.9 H, Hct 52.4, MCV 88.2, MCH 28.5, MCHC 32.3, Plt Count 218, MPV 10.4, Immature Gran % (Auto) 0.300, Neut % (Auto) 44.9 L, Lymph % (Auto) 39.0, [place] % (Auto) 11.4 H, Eos % (Auto) 3.5, Baso % (Auto) 0.9, Absolute Neuts (auto) 2.9, Nucleated RBC % 0 12/17/22 00:45: Sodium 139, Potassium 4.8, Chloride 108 H, Carbon Dioxide 26.0, Anion Gap 5, BUN 21 H, Creatinine 1.59 H, Est GFR (MDRD) Af Amer 54 L, Est GFR (MDRD) Non-Af 45 L, BUN/Creatinine Ratio 13.2, Glucose 108 H, Calcium 8.7 12/17/22 00:45: Magnesium 2.2 12/17/22 03:45: WBC 5.3, RBC 5.18, Hgb 14.9, Hct 46.2, MCV 89.2, MCH 28.8, MCHC 32.3, Plt Count 177, MPV 10.3, Immature Gran % (Auto) 0.400, Neut % (Auto) 58.3, Lymph % (Auto) 28.6, [place] % (Auto) 9.4, Eos % (Auto) 2.4, Baso % (Auto) 0.9, Absolute Neuts (auto) 3.1, Nucleated RBC % 0 12/17/22 03:45: Sodium 141, Potassium 4.7, Chloride 111 H, Carbon Dioxide 26.0, Anion Gap 4 L, BUN 20 H, Creatinine 1.42 H, Est GFR (MDRD) Af Amer 61, Est GFR (MDRD) Non-Af 51 L, BUN/Creatinine Ratio 14.1, Glucose 102, Calcium 7.8 L, Total Bilirubin 0.30 Rhythm: EKG: ECHO: Stress Test: Cardiac Cath: PCI: CT Surgery: Holter monitor: EPS: PPM: CXR: Chest CT Scan: Radiography Diagnostic Testing: Radiology Impression Chest X-Ray 12/17/22 01:05 IMPRESSION: No radiographic evidence of acute cardiopulmonary disease. Electronically Signed: Coleman Schmitt MD at 1:26 EDT ,
--- NOTE | 2022-12-17 17:44 | STRESSREP ---
Stress Test Report Exercise myocardial perfusion stress test. 82-year-old man with a history of coronary disease status post LAD stent Stress protocol: Resting EKG demonstrates sinus bradycardia with a rate of 56 bpm resting blood pressure is 148/82 mmHg. The patient exercised according to the regular [place] protocol for a total duration of 6 minutes and 31 seconds attaining a maximum heart rate of 117 bpm which was 84% of maximum predicted heart rate; the maximum workload was 8.5 metabolic equivalents. At rest there were no ST or T wave changes noted to suggest ischemia and at peak exercise upsloping ST changes only were noted which did not meet the criteria for ischemia. No clinical angina was noted the test was terminated due to the target heart rate being achieved/fatigue. The peak blood pressure was 170/74 mmHg. Rate-pressure product was 17,200. Myocardial perfusion protocol. 13.2 mCi of technetium 99m sestamibi was injected at rest. The patient exercised according to regular [place] protocol for total duration of 6 minutes and 31 seconds and at peak exercise 42.1 mCi of technetium 99m sestamibi was injected stress images were obtained stress and rest images were reconstructed in comparing the short axis vertical long and horizontal long axis. Gated images were also obtained. Perfusion SPECT analysis: Review of the stress images demonstrate normal uptake of tracer noted in all areas of the myocardium except for the basal to mid inferior wall with reduced perfusion. The resting images similarly demonstrate normal uptake of tracer noted in all areas of the myocardium. The above is suggestive of a moderate zone of mid inferior ischemia Gated SPECT analysis: The gated ejection fraction is 62%. Conclusion: Abnormal exercise myocardial perfusion stress test at a moderate workload with moderate mid inferior ischemia Preserved ejection fraction.
--- NOTE | 2022-12-17 19:25 | PCM.HOSP.N ---
Hospitalist Note Patient was seen and examined today, he was admitted early this morning due to an episode of chest pain which woke him up from sleep, patient underwent a stress test today that was positive for reversible ischemia, his enzymes elevated slightly. I talked with cardiology about his case, cardiology will perform a cardiac catheterization tomorrow on the patient. Patient is okay with this, I discussed this with the patient and the patient's who was in the room at the time of my examination.
[2022-12-17] MEDS: Carvedilol 3.125 MG TABLET PO (20:17)
[2022-12-17] MEDS: Atorvastatin Calcium 80 MG Tablet PO (20:17)
[2022-12-18] VITALS (10 sets, daily range): BP systolic 138–163; BP diastolic 70–94; PULSE 55–60; RESP 14–17; TEMP 36.4–36.6; O2SAT 95–99
[2022-12-18 06:05] LABS: Cholesterol 247 mg/dL (200); High Density Lipoprotein 31 mg/dL; Triglycerides 274 mg/dL; Very Low Density Lipoprotein 55 mg/dL (5-40)
[2022-12-18] MEDS: Nitroglycerin Oint 1 INCH PACKET 0.5 INCH TD (06:09)
[2022-12-18] MEDS: Carvedilol 3.125 MG TABLET PO (07:28)
[2022-12-18] MEDS: Aspirin E.C. 81 MG Tablet PO (07:28)
--- NOTE | 2022-12-18 08:42 | PN.CARD_ITS ---
Subjective Subjective Patient seen and evaluated. Underwent cardiac catheterization today. Objective Data Vital Signs: Vital Signs Temp Pulse Resp BP Pulse Ox O2 Del Method 97.7 F L 56 L 17 141/92 H 95 Room Air 12/18/22 07:24 12/18/22 07:24 12/18/22 07:24 12/18/22 07:24 12/18/22 07:36 12/18/22 07:36 Oxygen Delivery Method Room Air Weight: 228 lb 9.91 oz Body Mass Index (BMI) 31.8 Intake & Output: Intake and Output for Last 24 Hours 12/16/22 12/17/22 12/18/22 23:59 23:59 23:59 Intake Total 1640.00 / 1640.00 Balance 1640.00 / 1640.00 Lab / Micro Data Result Diagrams: 12/17/22 03:45 12/17/22 03:45 Labs: Laboratory Results - last 24 hr 12/17/22 08:03: Troponin I High Sens 137 H* 12/18/22 05:22: Triglycerides 274 H, Cholesterol 247 H, LDL Cholesterol 161 H, VLDL Cholesterol 55 H, HDL Cholesterol 31 L Cardiology Labs/Tests 12/18/22 05:22: Triglycerides 274 H, Cholesterol 247 H, LDL Cholesterol 161 H, VLDL Cholesterol 55 H, HDL Cholesterol 31 L Rhythm: EKG: ECHO: Stress Test: Cardiac Cath: PCI: CT Surgery: Holter monitor: EPS: PPM: CXR: Chest CT Scan: Physical Exam Const alert, oriented x3 and no apparent distress General Appearance: cooperative HEENT hearing grossly normal bilaterally Head and Scalp: atraumatic Eyes EOMs intact bilaterally Neck General: normal visual inspection Chest inspection of chest normal and palpation of chest normal Resp normal respiratory effort Auscultation: clear to auscultation bilaterally Cardio regular rate, regular rhythm, S1 normal heart sound and S2 normal heart sound Jugular Venous Distention: JVD GI normal to inspection, nondistended, normoactive bowel sounds Extremity normal capillary refill and no pedal edema Peripheral Pulses: Yes pulses 2+ throughout and femoral pulses present Skin no rashes or lesions noted Neuro oriented x3 and CN's II-XII intact bilaterally Psych Appearance: grossly normal and appropriate Assessment & Plan Assessment/Plan (1) Chest pain: PLAN: Presented with chest discomfort which had some features which were rather concerning for angina. He underwent a stress test which was abnormal and he underwent a cardiac catheterization which demonstrated the following: Normal left main coronary artery. Left anterior descending artery with previously placed stent with 80% stenosis noted. Left circumflex artery with mid circumflex with 80% stenosis. Dominant right coronary artery with high-grade 95% stenosis. Preserved left ventricular systolic function. Based on the above angiographic findings I would recommend coronary artery by pass graft surgery. (2) History of coronary artery stent placement: PLAN: He is status post stent placement remotely in his left anterior descending artery. As noted above there is evidence of restenosis. (3) Abnormal stress test: PLAN: He does have evidence of abnormal inferior ischemia. This was confirmed with a left heart catheterization. (4) Hyperlipidemia: PLAN: He will continue with aggressive risk factor modification with high intensity statin. Thank you for allowing me to participate in the care of your patient. Please don't hesitate to call if any issues arise.
--- NOTE | 2022-12-18 08:57 | CL.D_ITS ---
Patient Name: ERI GUEVARA Study Date: 12/18/2022 Performing: Ronnie Khan MD Ht: 71 inches 180.34 cm : 1940 Wt: 228.62 lbs 103.7 kg Age: 82 Gender: male BSA: 2.23 PROCEDURE(S) PERFORMED DC01-(23250)LHC/COR/LV CLINICAL PROFILE AND INDICATIONS Indications: Suspected CAD Heart Failure: None Stress/Imaging Date: 12/17/22Stress Test with SPECT MPI: Positive Intermediate Risk CONCLUSIONS Severe triple-vessel disease with preserved left ventricular systolic function RECOMMENDATIONS Surgery consult for coronary revascularization DESCRIPTION OF PROCEDURE The patient arrived to the procedure lab. The risks and benefits of the procedure as well as a full description of our services here and current unavailability of surgical backup were fully explained to the patient and/or their significant other prior to the catheterization. The Timeout was completed, verifying the correct patient and procedure. The patient's procedural site was prepped and draped in the usual fashion. Local anesthetic was given subcutaneously to right radial region with Lidocaine 2%. Using a modified Seldinger technique, arterial access was obtained via the right radial artery, a 6Fr sheath was inserted. Right Coronary Artery selective angiography was then performed in multiple views using a 6 Fr. JR 4-125cm catheter. Left Coronary Artery selective angiography was performed in multiple views using a 6 Fr. JL 4-125cm catheter. Left Ventriculography was performed in SMITH projection using a 6 Fr. Pigtail catheter. LV to AO pullback pressures were then recorded.The arterial sheath was pulled and a TR Band was applied for hemostasis CORONARY ANGIOGRAPHY DOMINANCE: Right Dominant LEFT HEART ASSESSMENT Left Ventricular Ejection Fraction: by LV Gram 75 % Normal Left Ventricular systolic function LEFT MAIN: Angiographically normal LEFT ANTERIOR DESCENDING ARTERY: Previously stented vessel with evidence of in-stent stenosis of approximately 80% and mild distal disease CIRCUMFLEX ARTERY: Nondominant but medium size is vessel with an 80% stenosis noted at the bifurcation of the large obtuse marginal branch and AV groove branch RIGHT CORONARY ARTERY: Dominant vessel with proximal 95% stenosis and mild distal disease COMPLICATIONS No Complications PROCEDURE MEDICATIONS Fentanyl 50 mcg IV Versed 1 mg IV Versed 1 mg IV Oxygen: 2 L/min via nasal cannula Heparin given IA 12/18/2022 08:07:58 Verapamil 2.5mg, Ntg 100mcgs, 3000 units of Heparin given IA 12/18/2022 08:07:58 SUMMARY OF HEMODYNAMIC DATA Time AIR REST ECG 07:43:32 AO 113/70 (89) SA 08:09:53 AO 132/73 (100) 08:26:38 LV 121/2, 14 08:35:59 LV 134/2, 14 08:36:06 LV 133/5, 15 08:36:51 LVp 138/7, 16 08:36:56 AOp 137/78 (107) 08:37:01 AO 138/81 (106) 08:37:05 08:50:52 Signed By Ronnie Khan MD On 12/18/2022 08:56:25 Ronnie Khan MD
[2022-12-18] MEDS: Ondansetron 4 MG/2 ML Vial IV (09:38)
[2022-12-18] MEDS: 0.9% Saline Lock 10 ML Syringe IV (09:39)
[2022-12-18] MEDS: Acetaminophen 325 MG Tablet 650 MG PO (10:35)
--- NOTE | 2022-12-18 11:17 | PN.HOSP_ITS ---
Reason for Visit Reason for Visit: Diagnoses Hyperlipidemia, unspecified (12/17/22) Chest pain, unspecified (12/17/22) Abnormal result of other cardiovascular function study (12/17/22) Presence of coronary angioplasty implant and graft (12/17/22) Subjective Subjective Seen and examined today, he underwent a cardiac catheterization today which sh owed triple-vessel disease, he will have to be transferred out to tertiary hospital for evaluation concerning a bypass. I talked to the patient and his briefly after the catheterization. I also talked with cardiology about his care. Objective Data Objective Data Vital Signs: Vital Signs Temp Pulse Resp BP Pulse Ox O2 Del Method 97.8 F 59 L 17 153/81 H 98 Room Air 12/18/22 09:15 12/18/22 11:00 12/18/22 10:30 12/18/22 11:00 12/18/22 10:30 12/18/22 10:30 Oxygen Delivery Method Room Air Weight: 103.7 kg Body Mass Index (BMI) 31.8 Intake & Output: Intake and Output for Last 24 Hours 12/16/22 12/17/22 12/18/22 23:59 23:59 23:59 Intake Total 1640.00 / 1640.00 Balance 1640.00 / 1640.00 Lab / Micro Data Result Diagrams: 12/17/22 03:45 12/17/22 03:45 Labs: Laboratory Results - last 24 hr 12/18/22 05:22: Triglycerides 274 H, Cholesterol 247 H, LDL Cholesterol 161 H, VLDL Cholesterol 55 H, HDL Cholesterol 31 L Physical Exam Const alert, oriented x3, no apparent distress and healthy appearing General Appearance: cooperative, well kempt and well developed Orientation / Consciousness: awake, oriented to person, oriented to place and oriented to time HEENT normocephalic and moist oral mucous membranes Eyes PERRL, EOMs intact bilaterally and conjunctivae normal Neck supple, no JVD, thyroid normal and no carotid bruits General: trachea midline Resp normal respiratory effort and clear to auscultation bilaterally Auscultation: Negative for rales, rhonchi or wheezes Cardio regular rate, regular rhythm, no murmurs, no rub and no gallops GI normal to inspection, nondistended, normoactive bowel sounds, soft to palpation, non-tender and non-distended Extremity no clubbing, cyanosis or edema Skin no rashes or lesions noted General Skin Exam: no breakdown Neuro oriented x3, CN's II-XII intact bilaterally, no focal motor deficits and no sensory deficits noted Sensorium / Orientation: awake and alert Speech: speech normal Psych affect normal Assessment & Plan Assessment/Plan (1) Coronary artery disease: PLAN: Plan 1. [id number] patient has occlusive coronary artery disease and will need to be transferred to a tertiary hospital for evaluation for bypass. [facility] has agreed to accept the patient when a bed is available. #2 occlusive coronary artery tulzqcy-uxdqcq-wbxeto-again patient will be transferred hopefully today to a tertiary hospital #3 chronic kidney disease stage IIIa-complicates care, medical course, recovery, and prognosis #4 essential hypertension-continue present blood pressure medications #5 hyperlipidemia-patient is now on a statin
--- NOTE | 2022-12-18 11:23 | DS.PCM_ITS ---
Providers Date of Admission: 12/17/22 Date of Discharge: 12/18/22 Primary Care Physician: Dr. Jazlyn Richard, Consultations 12/17/22 19:26 Consult: Cardiology Routine Consulting Provider: Ronnie Khan Reason for Consult: abnormal stress test EMERGENT Consult: No MD Notified: Yes Date Notified: 12/17/22 Time Notified: 19:26 Method of Notification: Verbal Reason For Visit: CHEST PAIN Diagnosis Discharge Diagnosis (1) Coronary artery disease: Status: Acute Code(s): I25.10 - Atherosclerotic heart disease of [place] coronary artery without angina pectoris Plan 1. [id number] patient has occlusive coronary artery disease and will need to be transferred to a tertiary hospital for evaluation for bypass. [facility] has agreed to accept the patient when a bed is available. #2 occlusive coronary artery hbdkimu-ooyzcd-twfzdl-again patient will be transferred hopefully today to a tertiary hospital #3 chronic kidney disease stage IIIa-complicates care, medical course, recovery, and prognosis #4 essential hypertension-continue present blood pressure medications #5 hyperlipidemia-patient is now on a statin Medications at Discharge Home Medications cholecalciferol (vitamin D3) 50 mcg (2,000 unit) chewable tablet 2,000 unit PO DAILY SUPPLEMENT 10/10/18 aspirin 81 mg tablet,delayed release (Adult Aspirin Regimen) 81 mg PO DAILY 03/07/21 latanoprost 0.005 % eye drops 1 drp EACH EYE BID Check with primary doctor 08/17/21 ascorbic acid (vitamin C) 500 mg tablet (Vitamin C) 500 mg PO DAILY 01/29/22 zinc 10 mg tablet 10 mg PO DAILY supplement 01/29/22 Hospital Course Operations None Procedures Cardiac catheterization and Nuclear stress test Summary of Care Provided Minutes Spent on Discharge: 30 Hospital Course: This 82-year-old white male was seen in the emergency room at [facility] with complaints of precordial chest pain which woke him up from sleep, he stated the chest pain was an 8 out of 10 in intensity and radiated into his left upper arm. Work-up in the emergency room included an EKG which showed no evidence of acute ischemic changes, patient's troponin was normal, chest x-ray was unremarkable. Patient was placed in observation status on PCU, serial enzymes were obtained, patient's second set of troponin was normal, his third set of troponin was elevated, patient underwent a nuclear stress test which was abnormal showing evidence of reversible ischemia. Patient was seen by cardiology who recommended a cardiac catheterization, patient agreed and on 12/18/2022 he underwent a cardiac catheterization which showed triple-vessel disease. Arrangements were made to ship the patient to [facility] in [place] for further care and possible bypass. On 12/18/2022, patient was seen and examined: On examination he appeared in good health and spirits. Vital signs as documented. Skin warm and dry and without overt rashes. Neck without JVD, neck was supple, trachea midline, thyroid was normal. Lungs clear bilaterally, normal air movement was noted. Heart exam notable for regular rhythm, normal sounds and absence of murmurs, rubs or gallops. Abdomen unremarkable and without evidence of organomegaly, masses, or abdominal aortic enlargement. Bowel sounds are present, abdomen is not distended. Extremities nonedematous, no cyanosis was noted, no clubbing was noted. Neuro: Cranial nerves II through XII are grossly intact, no focal motor deficits were noted, sensation to light touch and pinprick intact, motor exam 5/5 throughout. Psych: Patient is alert and oriented x3, he does not appear anxious or depressed, he does not appear agitated. On 12/18/2022, patient was felt to be stable for transfer to [facility] for further care. Weight / BMI Weight Weight: 103.7 kg Body Mass Index (BMI) 31.8 ABG / Lab / Microbiology Data Result Diagrams: 12/17/22 03:45 12/17/22 03:45 Laboratory: Laboratory Results - last 24 hr 12/18/22 05:22: Triglycerides 274 H, Cholesterol 247 H, LDL Cholesterol 161 H, VLDL Cholesterol 55 H, HDL Cholesterol 31 L Meaningful Use Info Meaningful Use Diagnoses (Choose all that apply): AMI AMI/Post PCI/Angioplasty Aspirin given w/in 24hrs of arrival?: Yes ASA at discharge?: Yes Antiplatelet Therapy at Discharge:: Yes Statins at discharge?: Yes Duncan/ARB at discharge?: No Reason Duncan/ARB not ordered:: Not indicated Beta Sukhdev at discharge?: Yes Done w/ Acute SD measure.: Yes Documented LVEF (%): 62 Discharge Plan Admission Admit Date/Time: 12/17/22 02:15 Attending Provider: Coleman Khan Primary Care Provider: Jazlyn Richard Consulting Providers: Sarah Hsu ; Ronnie Khan Discharge Orders/Prescriptions Prescriptions: No Action aspirin [Adult Aspirin Regimen] 81 mg tablet,delayed release (DR/EC) 81 mg PO DAILY cholecalciferol (vitamin D3) 2,000 UNIT tablet,chewable 2,000 unit PO DAILY latanoprost 0.005 % drops 1 drp EACH EYE BID Label Comments: place 1 drop into both eyes once daily ascorbic acid (vitamin C) [Vitamin C] 500 mg Tablet 500 mg PO DAILY zinc 10 mg Tablet 10 mg PO DAILY Referrals / Follow Up: Jazlyn Richard DO [Primary Care Provider] - Disposition Disposition (needs filled in before D/C Order can be placed): DC/Tx to Another Type of HCF Charges/Coding Visit Charges Inpatient E&M: 85680 Disch Hosp
--- NOTE | 2022-12-18 11:41 | PHA.DC.MR ---
Pharmacy Service has performed discharge medication reconciliation for this patient. The patient's discharge medication list was reviewed for discrepancies and discrepancies were resolved. Home Medications cholecalciferol (vitamin D3) 50 mcg (2,000 unit) chewable tablet 2,000 unit PO DAILY SUPPLEMENT 10/10/18 aspirin 81 mg tablet,delayed release (Adult Aspirin Regimen) 81 mg PO DAILY 03/07/21 latanoprost 0.005 % eye drops 1 drp EACH EYE BID Check with primary doctor 08/17/21 ascorbic acid (vitamin C) 500 mg tablet (Vitamin C) 500 mg PO DAILY 01/29/22 zinc 10 mg tablet 10 mg PO DAILY supplement 01/29/22
--- NOTE | 2022-12-18 12:15 | NURSING ---
Report called to EIRKA Fisher at [facility].
--- NOTE | 2022-12-18 13:16 | CASEMGMT ---
ERIKA CARTER attempted to complete ROSARIO form with patient. Patient was transferred to [facility] prior to being completed.
== END 2022-12-18 12:15 | disposition short-term general hospital (02) ==
LOC: ED 02:11 → PCU 02:38
PROVIDERS: Admitting Provider Family Medicine; Emergency Provider Emergency Medicine; PCP Internal Medicine; Visit Provider Internal Medicine
DX: I21.4 Non-ST elevation (NSTEMI) myocardial infarction (principal); N18.31 Chronic kidney disease, stage 3a; I25.10 Atherosclerotic heart disease of native coronary artery without angina pectoris; Z95.5 Presence of coronary angioplasty implant and graft; Z87.891 Personal history of nicotine dependence; R94.39 Abnormal result of other cardiovascular function study; E78.00 Pure hypercholesterolemia, unspecified; Z79.82 Long term (current) use of aspirin; I12.9 Hypertensive chronic kidney disease with stage 1 through stage 4 chronic kidney disease, or unspecified chronic kidney disease; Z79.899 Other long term (current) drug therapy; Z86.16 Personal history of COVID-19; I16.0 Hypertensive urgency; E66.9 Obesity, unspecified; Z86.73 Personal history of transient ischemic attack (TIA), and cerebral infarction without residual deficits; Z85.46 Personal history of malignant neoplasm of prostate; Z68.32 Body mass index [BMI] 32.0-32.9, adult
CPT/HCPCS: 36415; 71045; 78452; 80048; 80053; 80061; 83735; 84484; 85025; 93005; 93017; 93458; 94668; 96361; 96374; 99152; 99153; 99221; 99285; A9500; J7030; J7040; Q9967; A4216; C1769; C1894; G0378; J2405

== ENCOUNTER → 2023-01-21 | Outpatient (CLI) | payer MEDICARE, SELFPAY ==
--- NOTE | 2023-01-21 14:10 | CR.HP_ITS ---
CR - History & Physical - General Arrival date:: 01/21/23 Arrival time:: 14:11 Date of Referral:: 01/04/23 Date of CR Evaluation:: 01/21/23 Referring Physician: Dr. Ronnie Khan Primary Diagnosis: S/P CABG - History of Present Cardiac Event Onset Date: Enter Onset Date of cardiac illnesses in Comment field below Coronary Artery Bypass Graft:: Yes - 12/20/22 - Sleep Disorder Evaluation Hx of Sleep Apnea: Yes Do you snore loudly (louder than talking or can be heard through closed doors)?: Yes Do you often feel tired/ fatigued/ sleepy during daytime?: Yes Has anyone observed you stop breathing during sleep?: Yes History of Hypertension (for STOP score): Yes STOP Results: Positive - Medications Home Medications: Ambulatory Orders Medication Instructions Recorded cholecalciferol (vitamin D3) 50 2,000 unit PO DAILY SUPPLEMENT 10/10/18 mcg (2,000 unit) chewable tablet latanoprost 0.005 % eye drops 1 drp EACH EYE BID Check with 08/17/21 primary doctor ascorbic acid (vitamin C) 500 mg 500 mg PO DAILY 01/29/22 tablet (Vitamin C) zinc 10 mg tablet 10 mg PO DAILY supplement 01/29/22 aspirin 81 mg tablet,delayed 81 mg PO DAILY #90 tabs 01/21/23 release (Adult Aspirin Regimen) metoprolol tartrate 25 mg tablet 25 mg PO BID #180 tabs 01/21/23 ondansetron HCl 4 mg tablet 4 mg PO Q8H 01/21/23 pantoprazole 40 mg tablet,delayed 40 mg PO DAILY 01/21/23 release rosuvastatin 40 mg tablet 40 mg PO DAILY #90 tabs 01/21/23 - Allergies Allergies/Adverse Reactions: Allergies No Known Allergies Allergy (Verified 01/21/23 09:31) Advanced Directives - Advanced Directives Power of Claim Rep: Yes Living Will: Yes Advance Directives Information Provided: Yes Advance Directives on File: Yes DNR Order?:: No Past Medical History - Covid-19 Screening 65 years or older:: Yes Has a serious heart condition:: Yes - Past Medical Illness Medical History: Past Medical History (Last Updated 01/21/23 @ 09:57 by Liliana Henry PA, PA) Atherosclerotic heart disease of [place] coronary artery without angina pectoris I25.10 CKD (chronic kidney disease) stage 3, GFR 30-59 ml/min N18.3 COVID-19 Onset Date: 08/14/21 U07.1 Former smoker Z87.891 Glaucoma H40.9 History of tapeworm infection Z86.19 Hyperlipidemia E78.5 Macular degeneration of both eyes H35.30 Perforation of sigmoid colon due to diverticulitis K57.20 Prostate cancer C61 TIA (transient ischemic attack) Onset Date: 09/2018 G45.9 - Past Surgical History Surgical History: Past Surgical History (Last Updated 01/04/23 @ 12:26 by Marlene Arguelles) History of Achilles tendon repair Z98.890 History of appendectomy Z90.49 History of colonoscopy Onset Date: 2008 Z98.890 History of coronary artery stent placement Onset Date: 02/06/13 Z95.5 PCI-TAMEKA-Mid LAD 3.0 x 15 mm Resolute Integrity Stent 02/06/2013 History of laparoscopic cholecystectomy Z90.49 History of right inguinal hernia Z87.19 History of tonsillectomy Z90.89 S/P CABG x 4 Onset Date: 12/20/[address] Martinez at [facility] Surgical History: cholecystectomy, herniorrhaphy - RIH x 2 open, tonsillectomy, - - Remote PCI, Prostate CA seed insertion, L achilles repair, Deviated septum repair, cholecystectomy, tonsillectomy, hernia repair (RIH x 2 open). - Family History Summary Family History: Family History (Last Reviewed 12/17/22 @ 17:[address] Ronnie Khan MD) Mother Heart disease Father Heart disease CAD (coronary artery disease) COPD (chronic obstructive pulmonary disease) Social History - Smoking History Smoking Status: Former smoker - pipe Years Smokin - Alcohol Use Alcohol Usage: Yes - 3 beers once a week - Occupation Occupation (List type of work in comments):: Retired - Hobbies, Recreation, Social Activities Hobbies: Woodworking, Other - blacksmithing, gardening Social Environment - Status Marital Status: - Current Living Arrangements Living Environment:: Spouse - Children How many children do you have?: 2 Do any of your children live nearby?: No - Safety Do you feel safe in your surroundings?: Yes - Assistance Do you need any assistance at home?: no Review of Systems - Review of Systems Hints: Right click = Denies (Slash). Left click = Reports ([place]) Review of Present Symptoms: Reports: Shortness of Breath with Exertion, Operative Discomfort, Dizziness/Lightheadedness, Fatigue, Appetite - Normal. Denies: Shortness of Breath at Rest, PVD, Angina, Wound Healing, Heart Arrhythmia/Irregularities, Appetite - Special Diet, Sleep - Normal, Sexual Changes - Pain Is Patient Pain Free?: No Pain Location: chest, back Pain Level: 08/07 Risk Factor Assessment - Vital Signs Pulse Ox: 96 - Pulse Pulse Rate: 68 - Hypertension How long have you been treated?: 2 months Blood Pressure Sitting - Right Arm: 121/76 - Obesity Height: 5 ft 11 in Weight:: 100.244 kg Weight in Pounds: 221.0 lbs Body Mass Index (BMI): 30.8 Nutritional Referral for Obesity: Yes - Physical Inactivity Physical Inactivity: Reg Exercise 30 min/day - Risk Stratification Risk Guidelines: Moderate Risk: Risk Factor for Smoking, Risk Factor for Dyslipidemia, Risk Factor for Diabetes, Risk Factor for Obesity, Risk Factor for Hypertension, Risk Factor for Sedentary Lifestyle, Risk Factor for Depression - Family History Family History: Family History (Last Reviewed 12/17/22 @ 17:[address] Ronnie Khan MD) Mother Heart disease Father Heart disease CAD (coronary artery disease) COPD (chronic obstructive pulmonary disease) Motivation - Motivation to Participate On a scale of 1 to 10, how prepared are you to commit to attending program?: 7 What do you see as barriers to successfully being able to complete the program?: nothing What do you see as the benefits of succesfully completing the program? In other words, what do you hope to get out of participating in the program?: more energy Are there issues you are dealing with that will interfere with completing the program?: no Do you have a spouse or signficant other, family or friends who will help support you to complete the program?: yes
[2023-01-21 14:59] VITALS: BP 121/76; PULSE 68; O2SAT 96; BMI 30.8
--- NOTE | 2023-01-21 15:00 | PCM.CR.ITP ---
Diagnosis - General Information Admitting Diagnosis: S/P CABG Personal Learning Style:: Audio/Visual Stage of change r/t lifestyle modifications:: Contemplation Gave educational material for:: Treating Heart Disease, Emotions & Heart Disease, Stress Management & Relaxation, Sleep Disorders & Heart Disease, How The Heart Works, What it means to have Heart Disease, How Coronary Artery Disease is Diagnosed, Heart Procedures, What Heart Medications Do, Risk Factors & Modifications, Living an Active Life, Nutrition - Education/Goals Cardiac Rehabilitation Goals: 1. Maintain the individual as the primary focus of care. 2. To improve the patient's quality of life. 3. Identification of cardiac risk factors and provide cardiac risk factor management. 4. Enhance the psychosocial status of the patient. 5. Reconditioning enough to allow the patient to resume customary activities. 6. Control symptoms of cardiac disease Personal Goals: Initial Assessment: Improve energy level, Participate in home exercise program, Improve muscle strength and endurance, Control risk factors (learn risk factor modification) Scale for measuring improvement of personal goals: Enter appropriate number in Comments. 2 = Unchanged. 3 = Slightly Better. 4 = Moderate Improvement. 5 = Met my Goal - Diagnosis & Disease Process Outcomes/Goals: Pt IDs own risk factors & lifestyle modifications by Session 10, Verbalizes symptoms of angina & response by session 3., Pt independently manages, Other Additional Outcomes/Goals: Plan/Interventions: Assist Pt to ID & engage in lifestyle modification to reduce CVD risk, Instruct on individual risk factors, Review symptoms of angina & emergency actions, Review secondary diagnosis & identify educational needs., Other see comment 30 day Reassessments:: Not Met 30 day Reassessments:: Not Met 30 day Reassessments:: Not Met 30 day Reassessments:: Not Met Final Reassessments:: Not Met - Safety Referral to Physical Therapy: No Referral to [facility] Case Management: No Fall Risk Assessed:: Yes Assistive Devices:: None Exercise - Initial Assessment - Visit Date of Eval: 01/21/23 - initial eval Mets: Pre-: >3 METS for 30 minutes by discharge, >5 METS for 30 minutes by discharge, >7 METS for 30 minutes by discharge, Unable to meet goal due to: (see comment below) - Physician Prescribed Exercise Modalities: Treadmill, Airdyne, NuStep, SciFit, Lateral Tivoli Frequency: 3x/week for 12 weeks [36 sessions] Intensity: 60-80% of age predicted maximum heart rate reserve Current METSs:: 3 Target Heart Rate:: 90-104 Resting Blood Pressure: 121/76 EKG Type: SB with nonspecific Twave abnormality - Outcomes & Goals Goals:: Verbalizes understanding of THR, RPE & goal METS by session 6, Documents in home exercise log/reports 30 min aerobic 5 day/wk by DC, Demonstrates accurate pulse taking by DC, Other additional outcome/goals: see below - Intervention & Plan Exercise Program Goals: Instruct on personal THR & RPE, Instruct on MET level & personal MET goal, Show patient to take own pulse /validate performance until accurate, Instruct on home exercise, Other additional plan/int - Outcomes & Goals Outcomes/Goals: Demonstrates correct Warm-up/exercise Cool-Down (S3) if = 2.5 METs, Verbalizes symptoms of exercise intolerance by Session 3 (S3), Demonstrate safe equipment use (S3) & follows exercise prescrition (6), Other: See below - Intervention & Plan Plan/Intervention: Instruct warm-up & cool-down if exercising at > 2 METs, Instruct on symptoms of exercise intolerance & actions to take, Instruct & monitor on saf, Assess intial functional capacity & safety risk, Other See below Nutrition - Initial Assessment - Program Goals Nutrition Program Goals: LDL <100 optimal. 100 - 129 Near optimal. 130 - 159 Borderline High. 160 - 189 High. Total Cholesterol <200 desirable. 200 - 239 Borderline High. >/= 240 High. HDL < 40 Low >/=60 High. Triglycerides <150 desirable. <199 optimal. VlDL 5 - 40. HgbA1C <7%. BMI <25 Patient has diagnosis of Hyperlipidemia (ICD E78)?: Yes - Visit Date of Assessment:: 01/21/23 - initial eval - Cholesterol/Lipids (Other Core Measures) Determine presence & major risk factors that modify LDL goal: Cigarette smoking, Hypertension or hypertensive medication, Low HDL cholesterol <40 mg/dL*, Family history of premature CHD in Male < 55 years: female <65 yearsFa, Age men > 45 years; women >/= 55 years Outcomes/Goals: Pt IDs own risk factors & lifestyle modifications by Session 10, Verbalizes symptoms of angina & response by session 3., Pt independently manages, Other Additional Outcomes/Goals: Intervention/Plan: Advocate for lipid panel cholesterol medication if applicable, Instruct on personal lipid levels & lipid goals/NCEP guidelines, Instruct on cholesterol, Other additional plan/int Referral to dietitian:: Yes - medical nutrition therapy - Diabetes (Other Core Measures) Diabetes Type: Not Applicable - Weight Mgt (Other Care) Height: 5 ft 11 in Weight:: 100.244 kg BMI: 30.8 Diagnosis Overweight/Obesity BMI> 30% ICD-10 E66: Yes Diagnosis High BMI/Morbid Obesity BMI> 35% ICD-10 Z68: No Outcomes/Goals: Pt sets, maintains & shows weight loss goal & trend during rehab, Other additional outcomes/goals Intervention/Plan: Instruct on ideal BMI & set weight loss goal w/patient, Assist pt to ID & incorporate diet changes for weight loss by S9, Refer to Structured Weight Loss program as appropriate, Encourage goal of using 250-300dcal per session for weight loss, Other additional plan/interventions - Healthy Eating Habits Will attend diet classes:: Yes Outcomes/Goals:: Consume diet rich in vegs,fruits,whole grain/high fiber,fish,lean meat, Limit sat/trans fats,cholesterol & added salts & sugars, Other additional outcome/goals: - Education Gave educational materials for:: Signs & symptoms of hypoglycemia, Relate diabetes to coronary artery disease, Healthy eating Nutrition - 30-Day Assessment Nutrition - 60-Day Assessment Nutrition - 90-Day Assessment Nutrition - Final Assessment Core - Initial Assessment - Visit Date of Eval: 01/21/23 - initial eval - Medication Compliance Preventative Medication(s):: Aspirin, Statin/lipid, Beta jonathan H/O mental health issues: depression, anxiety, or addiction?: No Doesn?t believe in the benefits of treatment?: No Believes medications are unnecessary or harmful?: No Has a concern about medication side effects?: No Expresses concern over the cost of medications?: No Outcomes/Goals: Verbalizes medications,desired effect & common side effects @ DC, Pt self-reports following medication regimen, Keeps card in wallet w/medications listed by DC, Other additional outcome/goals: Interventions/plans: Instruct on medication effects & side effects, Review medication list w/patient every two weeks, Instruct importance of taking meds as ordered & assist problem solving, Other additional - Tobacco Use Tobacco Use: Non-smoker How long ago did you quit using tobacco products?: Greater than or equal to 6 months ago Do you use smokeless tobacco?: No - Hypertension Hypertension Diagnosis:: Hypertension ICD-10 I10 Resting Blood Pressure:: 121/76 [place] [employer] Hypertension Guidelines: [place] [employer] Hypertension Guidelines. Normal BP Less than 120/80. Elevated BP 120/80. Hypertension Stage 1: BP 130-139/80-89. Hypertesnion Stage 2: BP 140 or higher/90 or higher. Hypertension Crisis: BP higher than 180/120 Outcomes/Goals: Able to verbalize/achieve optimal blood pressure <130/80, Incorporates diet changes & exercise for blood pressure control by DC, Other additional outcomes/goals Interventions/plan: Instruct on optimal blood pressure, hypertension & medications, Instruct on effects of sodium, alcohol, stress, exercise &hypertension, Other additional plan/interventions - Tobacco Cessation Referral Smoking Cessation Referral:: No Individual Education/Counseling:: No Education Schedule Given:: Yes Core - 30-Day Assessment Core - 60-Day Assessment Core - 90 Day Assessment Core - Final Assessment Psychosocial - Initial Assess - VIsit Date of Eval: 01/21/23 - initial eval History of previous Mental disease:: No Psychosocial - 30-Day Assess Psychosocial - 60-Day Assess Psychosocial - 90-Day Assess Psychosocial - Final Assessmen Patient Health Questionnaire Initial Assessment 1. Little interest or pleasure in doing things: Not at all 2. Feeling down, depressed, or hopeless: Not at all 3. Trouble falling or staying asleep, or sleeping too much: Several days 4. Feeling tired or having little energy: More than half the days 5. Poor appetite or overeating: Not at all 6. Feeling bad about yourself -- or that you are a failure or have let yourself or your family down: Not at all 7. Trouble concentrating on things, such as reading the newspaper or watching television: Several days 8. Moving or speaking so slowly that other people could have noticed. Or the opposite - being so fidgety or restless that you have been moving around a lot more than usual: Not at all 9. Thoughts that you would be better off , or of hurting yourself in some way: Not at all How difficult have these problems made it for you to do your work, take care of things at home, or get along with other people?: Somewhat difficult Total Score: 4 ARNOLD-Q SV Test - Statements CAD is a disease of the arteries in the heart: False Examples of risk factors for heart disease: True Angina is chest pain or discomfort: True The benefits of resistance training include: True Eating more meat and dairy products: False Anti-platelet medications such as aspirin are important: True The only effective way to manage stress: False An exercise warm-up slowly increases heart rate: True Prepared, processed foods usually have high sodium: True Depression is common after a heart attack: True The statin medications lower cholesterol: True To control blood pressure, lower the amount of sodium: True If someone gets chest discomfort during walking: False Transfats are partially hydrogenated vegetable oils: True Sleep apnea that is not treated increases the risk: True To control cholesterol, one should become a vegetarian: True Someone knows if he/she is exercising at the right level: True Diabetes cannot be prevented with exercise & health eating: False Stress is a large risk for heart attack: True A diet that can help lower blood pressure is rich in: True - Total Score Total Correct Responses: 18 Self-Efficacy Initial Assessment We would like to know how confident you are in doing certain activities. Please select your confidence level for:: Select your confidence level for the following using the scale 1-10 where 1 is not at all confident and 10 is totally confident. Your score is the average of all 6 responses. Fatigue: How confident are you that you can keep the fatigue caused by your disease from interfering with the things you want to do? Select Number: 6 Physical Discomfort or Pain: How confident are you that you can keep the physical discomfort or pain of your disease from interfering with the things you want to do? Select Number: 6 Emotional Distress: How confident are you that you can keep the emotional distress caused by your disease from interfering with the things you want to do? Select Number: 9 Other Symptoms or Health Problems: How confident are you that you can keep other symptoms or health problems from interfering with the things you want to do? Select Number: 8 Different Tasks and Activities: How confident are you that you can do the different tasks and activities needed to manage your health condition so as to reduce your need to see a doctor? Select Number: 8 Medication: How confident are you that you can do things other than just taking medication to reduce how much your illness affects your everyday life? Select Number: 8 Total Score:: 7 Nutrition Survey - Nutrition Survey Initial Have you lost >10 lbs over the past 2 months without trying?: No Are you following a special diet at home for diabetes, low fat, or low salt?: No Are you interested in meeting with a dietitian for help understanding your diet?: No Do you eat less than 3 meals a day?: No Do you eat fatty meats (van, sausage, ribs, etc), fried foods, desserts, large amounts of salad dressings, margarine, butter, or cheese most days?: Yes Do you have food allergies? [Enter types in comment field]: No Do you eat in restaurants more than 3 times a week?: No Do you season food with salt, seasoning salt, or garlic salt?: Yes Do you used canned, boxed, frozen meals, or soups, seasoning packets?: No Total Score:: 2
[2023-01-21 15:10] VITALS: BP 121/76; BMI 30.8
== END | disposition home or self-care (01) ==
LOC: CR 14:05
PROVIDERS: PCP Internal Medicine; Referring Provider Internal Medicine Cardiovascular Disease; Visit Provider Internal Medicine Cardiovascular Disease
DX: Z95.1 Presence of aortocoronary bypass graft (principal); N18.30 Chronic kidney disease, stage 3 unspecified; R06.81 Apnea, not elsewhere classified; R53.83 Other fatigue; I25.10 Atherosclerotic heart disease of native coronary artery without angina pectoris; Z87.891 Personal history of nicotine dependence; H40.9 Unspecified glaucoma; Z86.19 Personal history of other infectious and parasitic diseases; E78.5 Hyperlipidemia, unspecified; H35.30 Unspecified macular degeneration; K57.20 Diverticulitis of large intestine with perforation and abscess without bleeding; Z85.46 Personal history of malignant neoplasm of prostate; Z86.73 Personal history of transient ischemic attack (TIA), and cerebral infarction without residual deficits; Z98.890 Other specified postprocedural states; Z91.49 Other personal history of psychological trauma, not elsewhere classified; Z95.5 Presence of coronary angioplasty implant and graft; Z90.49 Acquired absence of other specified parts of digestive tract; Z87.19 Personal history of other diseases of the digestive system; Z90.89 Acquired absence of other organs; R06.02 Shortness of breath; R42 Dizziness and giddiness; I12.9 Hypertensive chronic kidney disease with stage 1 through stage 4 chronic kidney disease, or unspecified chronic kidney disease

== ENCOUNTER 2023-01-28 07:00 | Outpatient (RCR) | payer MEDICARE, SELFPAY ==
[2023-01-21 15:10] VITALS: BMI 30.8
== END 2023-02-25 23:59 ==
LOC: CR 07:00
PROVIDERS: PCP Internal Medicine; Visit Provider Internal Medicine Cardiovascular Disease
DX: I25.10 Atherosclerotic heart disease of native coronary artery without angina pectoris (principal); Z95.1 Presence of aortocoronary bypass graft
CPT/HCPCS: 93798

== ENCOUNTER → 2023-09-10 | Outpatient (CLI) | payer MEDICARE, SELFPAY ==
[2023-01-21 15:10] VITALS: BMI 30.8
[2023-09-10 15:48] LABS: Potassium 4.6 mmol/L (3.5-5.1)
== END | disposition home or self-care (01) ==
PROVIDERS: PCP Internal Medicine; Referring Provider Internal Medicine; Visit Provider Internal Medicine
DX: E87.5 Hyperkalemia (principal)
CPT/HCPCS: 84132

== ENCOUNTER → 2023-09-19 | Outpatient (CLI) | payer MEDICARE, SELFPAY ==
[2023-01-21 15:10] VITALS: BMI 30.8
--- NOTE | 2023-09-19 13:55 | CT_ITS ---
INDICATION: memory impairment of gradual onset EXAMINATION: CT BRAIN - CT Head or Brain W/O Contrast Injection TECHNIQUE: Multiple axial images were obtained of the head without intravenous contrast. A radiation dose optimization technique was used for this scan. IV Contrast dosage and agent: None. RADIATION DOSAGE (If Supplied By Facility): CTDIvol = ( 44.99 ) mGy, DLP = ( 846.73 ) mGycm COMPARISON: MRI of the brain of 12/23/2018. FINDINGS: BRAIN PARENCHYMA: No intra- or extra-axial hemorrhage. No evidence of acute infarct. No intracranial mass or mass effect. There is preservation of the nunez/white matter interface. Periventricular deep white matter changes likely due to chronic microvascular disease. Posterior fossa structures are unremarkable. Atherosclerotic calcifications of the cavernous internal carotid arteries. CSF SPACES: Appropriate for age. No hydrocephalus. Basal cisterns are patent. CALVARIUM, SKULL BASE, PARANASAL SINUSES AND MASTOID AIR CELLS: Mucosal thickening of the maxillary sinuses bilaterally with possible [retention cyst. No discrete lytic or blastic abnormalities. ORBITS: Both globes, extraocular muscles, optic nerves and retrobulbar fat appear unremarkable. CT/Brain/Head without Contrast IMPRESSION: No acute intracranial process. Electronically Signed: Scar Hoffman MD at 14:21 EST ,
== END | disposition home or self-care (01) ==
LOC: CT 13:55
PROVIDERS: PCP Internal Medicine; Referring Provider Internal Medicine; Visit Provider Internal Medicine
DX: R41.3 Other amnesia (principal)
CPT/HCPCS: 70450

== ENCOUNTER → 2023-09-23 | Outpatient (CLI) | payer MEDICARE, SELFPAY ==
[2023-01-21 15:10] VITALS: BMI 30.8
--- NOTE | 2023-09-23 14:53 | CDU_ITS ---
Reason For Study: Carotid Stenosis Rt. Velocities/BP Lt. Velocities/BP Prox CCA 92/17 cm/sec. Prox CCA 100/24 cm/sec. Mid CCA 94/18 cm/sec. Mid CCA 95/24 cm/sec. Dist CCA 86/18 cm/sec. Dist CCA 93/25 cm/sec. Prox ICA 78/18 cm/sec. Prox ICA 138/29 cm/sec. Mid ICA 81/19 cm/sec. Mid ICA 93/27 cm/sec. Dist ICA 93/23 cm/sec. Dist ICA 96/24 cm/sec. Rt. ICA/CCA = 1.0. Lt. ICA/CCA = 1.5. Prox ECA 125/15 cm/sec. Prox ECA 118/18 cm/sec. Rt. Vert. 26/6 cm/sec. Lt. Vert. 47/8 cm/sec. Right Extracranial There is heterogeneous, irregular atherosclerotic plaque noted in the right common carotid artery. There is heterogeneous, irregular atherosclerotic plaque noted in the right internal carotid artery. There is no significant atherosclerotic plaque noted in the right external carotid artery. Antegrade flow is noted in the right vertebral artery. Left Extracranial There is heterogeneous, irregular atherosclerotic plaque noted in the left common carotid artery. There is homogeneous, smooth atherosclerotic plaque noted in the left internal carotid artery. There is intimal thickening but no significant atherosclerotic plaque noted in the left external carotid artery. Antegrade flow is noted in the left vertebral artery. Procedure Carotid Duplex [id number]. This is a Carotid Duplex examination using B-mode, color flow and specral Doppler. Exam performed in department. VL/Carotid Duplex Ultrasound Interpretation Summary Irregular plaque at the proximal right internal carotid artery with less than 5 0% stenosis Less than 50% stenosis right external carotid artery Smooth plaque at the proximal left internal carotid artery with 50 to 69% steno sis Less than 50% stenosis left external carotid artery Patent and antegrade vertebral arteries bilaterally Ordering Physician: Jazlyn Richard Referring Physician: Jazlyn Richard Performed By: Sarahi Polanco, EFREN, RVT
== END | disposition home or self-care (01) ==
PROVIDERS: PCP Internal Medicine; Referring Provider Internal Medicine; Visit Provider Internal Medicine
DX: I65.23 Occlusion and stenosis of bilateral carotid arteries (principal)
CPT/HCPCS: 93880

== ENCOUNTER 2023-12-03 14:02 | Observation (INO) | payer MEDICARE, SELFPAY ==
[2023-01-21 15:10] VITALS: BMI 30.8
[2023-12-03 14:03] VITALS: BP 157/96; PULSE 85; RESP 22; TEMP 36.5; O2SAT 97; BMI 34.5
--- NOTE | 2023-12-03 14:42 | ED.VIS.FALL ---
HPI HPI - Fall History of Present Illness Chief Complaint: Fall Informant: patient Occured/Mechanism Occurred: Today Narrative: Patient fell out of a hammock Pain/Injury Pain Location: head, neck, chest and back Quality of Pain: Sharp Worsened by: Movement Relieved by: Rest and remaining still Associated Symptoms Associated Symptoms: Positive for Parasthesias (Resolved after few seconds); Negative for Weakness, Loss of function, Inability to ambulate, Loss of consciousness or Amnesia Narrative Narrative: Patient presents after a fall that occurred today. Patient states he fell out of a hammock. Patient states he landed on the left side of his head. Patient states his head was side bent to the right. Patient states he felt some popping sensation in his neck and thoracic spine. Patient states his pain is worse with any movement. Patient states that it is better with rest. Patient states he was having some tingling in his left upper extremity that lasted for a couple seconds and then resolved. Patient denies any weakness. Patient denies any loss of consciousness. Patient denies any other injuries. PFSH PFS Medical History Atherosclerotic heart disease of [place] coronary artery without angina pectoris CKD (chronic kidney disease) stage 3, GFR 30-59 ml/min COVID-19 (08/14/21) Former smoker Glaucoma History of tapeworm infection Hyperlipidemia Macular degeneration of both eyes Perforation of sigmoid colon due to diverticulitis Prostate cancer TIA (transient ischemic attack) (09/2018) Home Medications cholecalciferol (vitamin D3) 50 mcg (2,000 unit) chewable tablet 2,000 unit PO DAILY SUPPLEMENT 10/10/18 [History Last Taken 12/03/23] latanoprost 0.005 % eye drops 1 drp EACH EYE BID Check with primary doctor 08/17/21 [History Last Taken 12/03/23] aspirin 81 mg tablet,delayed release (Adult Aspirin Regimen) 81 mg PO DAILY #90 tabs 01/21/23 [Rx Last Taken 12/03/23] vitamins A,C,B-wuke-uwukve 4,296 mcg-226 mg-90 mg capsule (PreserVision AREDS) 1 cap PO BID 04/17/23 [History Last Taken 12/03/23] metoprolol tartrate 25 mg tablet 25 mg PO BID #180 tabs 05/06/23 [Rx Last Taken 12/03/23] coenzyme Q10 1 cap PO BID 12/03/23 [History Last Taken 12/03/23] netarsudil 0.02 %-latanoprost 0.005 % eye drops (Rocklatan) 1 drp ophthalmic (eye) DAILY 12/03/23 [History Last Taken 12/03/23] Allergy/AdvReac Type Severity Reaction Status Date / Time No Known Allergies Allergy Verified 12/03/23 14:03 Family History Mother Heart disease Father Heart disease CAD (coronary artery disease) COPD (chronic obstructive pulmonary disease) Surgical History History of Achilles tendon repair History of appendectomy History of colonoscopy (2008) History of coronary artery stent placement (02/06/13) History of laparoscopic cholecystectomy History of right inguinal hernia History of tonsillectomy 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 alcohol intake: current alcohol intake frequency: holidays/special occasions only substance use type: does not use ROS ROS ED Constitutional Constitutional ED: Denies chills or fever(s) Eyes Eyes: Denies blurry vision or change in vision ENT ENT ED: Denies rhinorrhea or sore throat Cardiovascular Cardiovascular: Denies chest pain or palpitations Respiratory/Chest Respiratory/Chest: Denies cough or dyspnea Gastrointestinal Gastrointestinal: Denies nausea or vomiting Genitourinary Genitourinary ED: Denies dysuria or hematuria Musculoskeletal Musculoskeletal: Reports back pain and neck pain Integumentary Denies abscess or rash Neurologic Neurologic: Reports headache(s); Denies weakness Allergic/Immunologic Allergic/Immunologic ED: Denies mouth swelling or urticaria EXAM Physical Exam Const Vital Signs: 12/03/23 14:03 12/03/23 14:08 12/03/23 17:53 Temperature 97.7 F L 97.8 F Temperature Source Temporal Pulse Rate 85 65 Respiratory Rate 22 H 20 H Respiratory Effort Short of Breath Respiratory Pattern Tachypnea Blood Pressure 157/96 H 144/94 H Blood Pressure Mean 116 110 Pulse Ox 97 98 Oxygen Delivery Method Room Air Room Air Positive well nourished, well developed and obese General Appearance ED: well developed and NAD Nutritional Appearance: obese HEENT Reports normocephalic Neck Neck Narrative: There is tenderness over the left cervical paraspinal muscles and in the midline. There is no bony crepitance or step-off. Range of motion was limited in all motions of the cervical spine secondary to pain. General: tenderness Resp normal respiratory effort and clear to auscultation bilaterally Cardio regular rate and regular rhythm GI non-tender and non-distended Palpation: soft Neuro oriented x3, CN's II-XII intact bilaterally, moves all extremities, no focal motor deficits and no sensory deficits noted Branch Coma Scale: document GCS findings Spontaneous Obeys Commands Oriented 15 Sensorium / Orientation: alert Motor Exam: strength 5/5 throughout Psych mental status grossly normal and thought process normal MDM MDM MDM Narrative Medical decision making narrative: Differential diagnosis includes cervical spine fracture, cervical strain, thoracic fracture, rib fracture, post head injury, and intracranial bleeding. CT scan of the brain will be obtained to assess for intracranial bleeding. CT scan of the cervical spine will be obtained to assess for cervical spine fracture. X-rays of the thoracic spine will be obtained to assess for thoracic spine fracture. X-rays of the left ribs will be obtained to assess for rib fracture or pneumothorax. Radiography Diagnostic Testing: Clinical Impression(s) from Imaging Studies Brain CT 12/03/23 14:43 IMPRESSION: Chronic involutional changes of the brain. Electronically Signed: Erwin Miller MD at 15:40 EDT , Cervical Spine CT 12/03/23 14:43 IMPRESSION: Degenerative changes of the cervical spine. Electronically Signed: Ye Bauer DO at 16:54 EDT , Thoracic Spine X-Ray 12/03/23 14:43 IMPRESSION: No fracture or dislocation in the thoracic spine. Moderate degenerative changes. Electronically Signed: Clinton Collier MD at 16:38 EDT , Ribs w/Chest X-Ray 12/03/23 15:55 IMPRESSION: RIBS: No displaced rib fracture identified. CHEST: Clear lungs. Electronically Signed: Clinton Collier MD at 16:39 EDT , CT scan of the brain was obtained. There is no acute intracranial abnormality. There are chronic involutional changes noted. This was interpreted by the radiologist and was also independently reviewed by myself. CT scan of the cervical spine was obtained. There are degenerative changes noted. There is no acute fracture noted. This was interpreted by the radiologist and was also independently reviewed by myself. X-rays of the left ribs were obtained. There are 6 views. On my independent interpretation, there is no acute fracture. There is no acute cardiopulmonary process. Radiologist also interpreted the x-rays and agrees. X-rays of the thoracic spine were obtained. There are 3 views. On my independent interpretation, there is no acute fracture or dislocation. There are some degenerative changes noted. Radiologist also interpreted the x-rays and agrees. Treatment and Re-Evaluation Narrative: Patient was placed in a cervical collar. Patient was given injection of morphine. Patient was advised of his findings. Cervical collar was discontinued. Patient was unable to ambulate due to the pain. Patient was requesting Tylenol. This was ordered. Case was discussed with the hospitalist. She will admit the patient for observation. Patient understood and was agreeable with the plan. All questions were answered. Discharge Plan Triage Chief Complaint: Fall ED Provider: William Don Dx/Rx/DC Orders Clinical Impression: Inability to ambulate due to multiple joints, Acute cervical myofascial strain, Closed head injury, Fall Prescriptions: No Action aspirin [Adult Aspirin Regimen] 81 mg tablet,delayed release (DR/EC) 81 mg PO DAILY Qty: 90 3RF PreserVision AREDS 4,296 mcg-226 mg-90 mg capsule 1 cap PO BID cholecalciferol (vitamin D3) 2,000 UNIT tablet,chewable 2,000 unit PO DAILY latanoprost 0.005 % drops 1 drp EACH EYE BID Rocklatan 0.02-0.005 % drops 1 drp ophthalmic (eye) DAILY coenzyme Q10 [Co Q-10] 1 cap PO BID Patient Comments: PT UNAWARE OF STRENGTH, GETS FROM [facility] metoprolol tartrate 25 mg tablet 25 mg PO BID Qty: 180 3RF Primary Care Provider: Jazlyn Richard Referrals: Jazlyn Richard DO [Primary Care Provider] - Disposition Disposition: Acute Care Hospital [facility]
--- NOTE | 2023-12-03 14:43 | CT_ITS ---
STUDY: CT CERVICAL SPINE WITHOUT CONTRAST REASON FOR EXAM: Male, 83 years old. Injury/Pain RADIATION DOSAGE (If Supplied By Facility): CTDIvol = ( 28.73 ) mGy, DLP = ( 604.57 ) mGycm TECHNIQUE: High resolution transaxial imaging was performed without contrast material. Sagittal and coronal images were reconstructed. Individualized dose optimization techniques were used for this CT. COMPARISON: None FINDINGS: Normal craniovertebral junction. Normal anterior atlantoaxial articulation. Normal odontoid process. Normal cervical lordosis. Normal vertebral bodies and posterior osseous elements. C2-3: Normal endplates. Normal disc height and morphology. Normal central canal. Facet hypertrophy and uncovertebral spurring slightly narrowing the intervertebral neuroforamina. C3-4: Spurring at the endplates. Narrowed disc height. Mild spurring protruding into the central canal. Uncovertebral spurring narrowing the intervertebral neuroforamina. C4-5: Spurring at the endplates. Narrowed disc height. Normal central canal. Uncovertebral spurring slightly narrowing the intervertebral neuroforamina. C5-6: Spurring at the endplates. Narrowed disc height. Mild spurring protruding into the central canal. Uncovertebral spurring narrowing the intervertebral neuroforamina, right more than left. C6-7: Spurring at the endplates. Narrowed disc height. Mild spurring protruding into the central canal. Uncovertebral spurring narrowing the intervertebral neuroforamina, left more than right. C7-T1: Spurring at the endplates. Narrowed disc height. Normal central canal. Uncovertebral spurring slightly narrowing the right intervertebral neural foramen. Normal visualized soft tissue structures. Possible right thyroid nodule. CT/Spine Cervical without Contras IMPRESSION: Degenerative changes of the cervical spine. Electronically Signed: Ye Bauer DO at 16:54 EDT Reading Location ID and State: [facility] / [place] Tel [phone], Service support ,
--- NOTE | 2023-12-03 14:43 | RAD_ITS ---
STUDY: X-RAY - THORACIC SPINE REASON FOR EXAM: Male, 83 years old. Pain TECHNIQUE: 3 view(s) of the thoracic spine were obtained. COMPARISON: None. FINDINGS: There is no evidence of fracture or dislocation in the thoracic spine. The vertebral body heights are well-maintained. There are moderate degenerative changes with disc space narrowing and anterior osteophytes. RAD/Thoracic Spine 3 Views IMPRESSION: No fracture or dislocation in the thoracic spine. Moderate degenerative changes. Electronically Signed: Clinton Collier MD at 16:38 EDT ,
--- NOTE | 2023-12-03 14:43 | CT_ITS ---
STUDY: CT BRAIN WITHOUT CONTRAST REASON FOR EXAM: Male, 83 years old. Injury/Pain RADIATION DOSAGE (If Supplied By Facility): CTDIvol = ( 44.99 ) mGy, DLP = ( 796.11 ) mGycm TECHNIQUE: Transaxial CT imaging of the brain was performed without administration of intravenous contrast material. Individualized dose optimization techniques were used for this CT. COMPARISON: Comparison is made with prior study dated September 19, 2023. FINDINGS: Normal soft tissue structures. Normal calvarium. There is moderate cerebral atrophy with widening of the extra-axial spaces and ventricular dilatation. There are areas of decreased attenuation within the white matter tracts of the supratentorial brain, consistent with microvascular disease changes. There are small punctate calcifications of the basal ganglia which are seen in the aging brain as a normal variant. Normal brainstem. Normal cerebellum. There is no intracranial hemorrhage. There are no findings of an acute ischemic infarction. Stable mucosal retention cyst at the base of the left maxillary sinus. CT/Brain/Head without Contrast IMPRESSION: Chronic involutional changes of the brain. Electronically Signed: Erwin Miller MD at 15:40 EDT ,
[2023-12-03] MEDS: Morphine 4 MG/ML Syringe IM (15:12)
--- NOTE | 2023-12-03 15:55 | RAD_ITS ---
STUDY: X-RAY - UNILATERAL RIBS ( LEFT ) WITH CHEST REASON FOR EXAM: Male, 83 years old. Fall TECHNIQUE - RIBS: 5 view(s) of the ribs. TECHNIQUE - CHEST: Frontal view COMPARISON: None. FINDINGS - RIBS: There are no displaced rib fractures identified. FINDINGS - CHEST: The lungs are clear. There are no pleural effusions. There is no pneumothorax. The heart is normal in size. The patient is status post sternotomy. RAD/Ribs Uni Min 3V w/PA Chest IMPRESSION: RIBS: No displaced rib fracture identified. CHEST: Clear lungs. Electronically Signed: Clinton Collier MD at 16:39 EDT ,
[2023-12-03] MEDS: Acetaminophen 500 MG Tablet 1000 MG PO (17:45)
--- NOTE | 2023-12-03 17:52 | HP.PCM_ITS ---
HPI - General General Date of Admission: 12/03/23 Date of Service: 12/03/23 Chief Complaint: mechanical fall HPI Narrative ERI GUEVARA, is a 83 M with a PMH as outlined who was admitted via the ED on 12/03/2023 with a complaint of mechanical fall. He fell out of his hammock the day of admission and says he landed on his left side and hit his head. He felt something popped in his neck and upper back. Pain was worsened with movement. He was on th floor for about 2 hours before his found him. He admitted to tingling in his LUE also that lasted a few days and then resolved. he denied any weakness, any loss of consciousness, fever, chills, dizziness, nausea, vomiting or any other systems. Review of systems is otherwise negative. Vitals in the ED were blood pressure 144/94, pulse rate of 65 and respirate rate of 20 with temperature of 97.8 Fahrenheit. He was saturating at 98% on room air. CT of the brain showed chronic involutional changes. CT of the cervical spine cord showed chronic changes degenerative disease acute pathology. Thoracic spine x-ray and chest x-ray showed no evidence of fracture or dislocation in the thoracic spine and no rib fractures also. Patient said he was in too much pain to be able to go home. He has been admitted to be managed for debility due to mechanical fall. [facility] Medical History Atherosclerotic heart disease of [place] coronary artery without angina pectoris CKD (chronic kidney disease) stage 3, GFR 30-59 ml/min COVID-19 (08/14/21) Former smoker Glaucoma History of tapeworm infection Hyperlipidemia Macular degeneration of both eyes Perforation of sigmoid colon due to diverticulitis Prostate cancer TIA (transient ischemic attack) (09/2018) Home Medications cholecalciferol (vitamin D3) 50 mcg (2,000 unit) chewable tablet 2,000 unit PO DAILY SUPPLEMENT 10/10/18 [History Last Taken 12/03/23] latanoprost 0.005 % eye drops 1 drp EACH EYE BID Check with primary doctor 08/17/21 [History Last Taken 12/03/23] aspirin 81 mg tablet,delayed release (Adult Aspirin Regimen) 81 mg PO DAILY #90 tabs 01/21/23 [Rx Last Taken 12/03/23] vitamins A,C,H-ddfn-fzmykb 4,296 mcg-226 mg-90 mg capsule (PreserVision AREDS) 1 cap PO BID 04/17/23 [History Last Taken 12/03/23] metoprolol tartrate 25 mg tablet 25 mg PO BID #180 tabs 05/06/23 [Rx Last Taken 12/03/23] coenzyme Q10 1 cap PO BID 12/03/23 [History Last Taken 12/03/23] netarsudil 0.02 %-latanoprost 0.005 % eye drops (Rocklatan) 1 drp ophthalmic (eye) DAILY 12/03/23 [History Last Taken 12/03/23] Allergy/AdvReac Type Severity Reaction Status Date / Time No Known Allergies Allergy Verified 12/03/23 14:03 Family History Mother Heart disease Father Heart disease CAD (coronary artery disease) COPD (chronic obstructive pulmonary disease) Surgical History History of Achilles tendon repair History of appendectomy History of colonoscopy (2008) History of coronary artery stent placement (02/06/13) History of laparoscopic cholecystectomy History of right inguinal hernia History of tonsillectomy 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 alcohol intake: current alcohol intake frequency: holidays/special occasions only substance use type: does not use ROS Constitutional Constitutional: Reports malaise and weakness; Denies anorexia, change in weight, chills, fatigue or fever(s) Eyes Eyes: Denies change in vision ENT HEENT: Denies dysphagia or headache(s) Cardiovascular Cardiovascular: Denies chest pain, edema, orthopnea or syncope Respiratory/Chest Respiratory/Chest: Denies cough, shortness of breath at rest or shortness of breath with exertion Gastrointestinal Gastrointestinal: Denies abdominal pain, diarrhea, nausea or vomiting Genitourinary Genitourinary: Denies dysuria Musculoskeletal Musculoskeletal: Reports extremity pain; Denies back pain or joint pain Neurologic Neurologic: Denies confusion, dizziness, focal weakness, headache(s), lack of coordination, numbness or weakness Psychiatric Psychiatric: Denies anxiety or depression Endocrine Endocrinology: Denies change in body appearance Hematologic/Lymphatic Hematologic/Lymphatic: Denies anemia Vital Signs Vital Signs Vital Signs: 12/03/23 14:03 12/03/23 14:08 Temperature 97.7 F L Temperature Source Temporal Pulse Rate 85 Respiratory Rate 22 H Respiratory Effort Short of Breath Respiratory Pattern Tachypnea Blood Pressure 157/96 H Blood Pressure Mean 116 Pulse Ox 97 Oxygen Delivery Method Room Air Room Air Weight Weight: 247 lb 12.793 oz Body Mass Index (BMI) 34.5 Physical Exam Const alert, oriented x3 and no apparent distress General Appearance: cooperative and well developed HEENT normocephalic, head/scalp atraumatic, moist oral mucous membranes and oropharynx normal Eyes PERRL and EOMs intact bilaterally Neck supple and no JVD Lymph Lymphatic: no lymphadenopathy noted and no lymphedema noted Resp normal respiratory effort, normal air movement and clear to auscultation bilaterally Cardio regular rate, regular rhythm, S1 normal heart sound, S2 normal heart sound and no murmurs GI normal to inspection, nondistended, normoactive bowel sounds, soft to palpation, non-tender and non-distended Extremity normal capillary refill, no clubbing, cyanosis or edema and no calf tenderness General Extremity: no tenderness to palpation of joints or extremities Skin General Skin Exam: no breakdown Neuro CN's II-XII intact bilaterally, no focal motor deficits, no sensory deficits noted and deep tendon reflexes 2+ bilaterally Motor Exam: strength 5/5 throughout and general weakness Psych thought process normal and cooperative Appearance: appropriate Results Imaging Radiology Impression Brain CT 12/03/23 14:43 IMPRESSION: Chronic involutional changes of the brain. Electronically Signed: Erwin Miller MD at 15:40 EDT , Cervical Spine CT 12/03/23 14:43 IMPRESSION: Degenerative changes of the cervical spine. Electronically Signed: Ye Bauer DO at 16:54 EDT , Thoracic Spine X-Ray 12/03/23 14:43 IMPRESSION: No fracture or dislocation in the thoracic spine. Moderate degenerative changes. Electronically Signed: Clinton Collier MD at 16:38 EDT , Ribs w/Chest X-Ray 12/03/23 15:55 IMPRESSION: RIBS: No displaced rib fracture identified. CHEST: Clear lungs. Electronically Signed: Clinton Collier MD at 16:39 EDT , Assessment & Plan Assessment/Plan (1) Fall: PLAN: Plan #Debility due to mechanical fall * admit to med surg * Patient fell out of his hammock and landed on the left side. He hit his head. CT of brain showed no acute intracranial pathology. * CT of the cervical spine showed no evidence of fracture and showed chronic changes. X-ray of the thoracic spine and chest x-ray also showed no evidence of fracture. * Consult PT OT. Fall precautions. * P.o. Tylenol, p.o. oxycodone and IV morphine as needed for pain * #History of CAD s/p CABG: On aspirin. Not on statin unclear why. On metoprolol. #Hypertension: On metoprolol #History of prostate cancer: DVT prophylaxis: SCDs due to recent history of mechanical fall CODE STATUS: full code * Patient counseled extensively about different types of CODE STATUS including full code, DNR CCA and DNR CCA. * Patient elects to be full code. * Total [id number] time 16 minutes. Charges/Coding Visit Charges Inpatient E&M: 89921 Init Hosp L2 Procedures Hospitalists Procedures: 98683 Advncd Care Plan 30 Min
[2023-12-03 17:53] VITALS: BP 144/94; PULSE 65; RESP 20; TEMP 36.6; O2SAT 98
--- NOTE | 2023-12-03 17:58 | NURSING ---
DR MENDOZA FOR DR VANN
--- NOTE | 2023-12-03 18:24 | NURSING ---
MED SURG OBS [facility] INABILITY TO AMBULATE, FALL, CLOSED HEAD INJURY, ACUTE CERVICAL STRAIN
[2023-12-03 19:28] VITALS: PULSE 60; RESP 17; O2SAT 94
[2023-12-03 20:33] VITALS: BMI 32.3
[2023-12-03 20:55] VITALS: PULSE 84
[2023-12-03 21:00] VITALS: BP 158/84; PULSE 62; RESP 18; TEMP 37.1; O2SAT 98
[2023-12-03] MEDS: 0.9% Normal Saline (1000mL) 1,000 ML 125 ML IV (21:32)
[2023-12-03 21:44] VITALS: PULSE 67
[2023-12-03] MEDS: Metoprolol Tartrate 25 MG Tablet PO (21:44)
[2023-12-04] MEDS: Acetaminophen 325 MG Tablet 650 MG PO ×2 (00:22→09:10)
[2023-12-04 03:15] VITALS: BP 153/77; PULSE 57; RESP 18; TEMP 36.8; O2SAT 96
[2023-12-04] MEDS: oxyCODONE 5 MG Tablet 10 MG PO ×4 (03:36→15:25)
[2023-12-04] MEDS: 0.9% Normal Saline (1000mL) 1,000 ML 125 ML IV (05:31)
[2023-12-04 08:40] LABS: Absolute Lymphocyte Count 1.76 X10^3/uL (0.83-4.51); Absolute Neutrophil Count 4.7 X10^3/uL (2.0-7.7); Basophil# 0.05 X10^3/uL; Basophil% 0.7 % (0-1); Eosinophil# 0.15 X10^3/uL; Hematocrit 48.2 % (40-54); Hemoglobin 15.8 g/dL (13.0-16.5); Lymphocyte # 1.76 X10^3/ul (0.83-4.51); Lymphocyte % 23.2 % (19-41); Mean Corp Hgb Conc 32.8 g/dL (32-36); Mean Corpuscular Hgb 29.4 pg (27.0-32.0); Mean Corpuscular Volume 89.6 fL (80-94); Mean Platelet Vol. 10.9 fl (6.2-12.0); Monocyte# 0.91 X10^3/uL; NRBC Flagged by Analyzer 0 % (0-5); Neutrophil % 61.8 % (47-70); Platelet Count 172 K/mm3 (150-450); RBC Distribution Width CV 13.8 % (11.6-14.6); RBC Distribution Width SD 44.6 fl (35.1-43.9); Red Blood Count 5.38 M/mm3 (4.6-6.2); White Blood Count 7.6 K/mm3 (4.4-11.0)
[2023-12-04 08:50] VITALS: BP 165/80; PULSE 66; RESP 18; TEMP 36.8; O2SAT 95
[2023-12-04 08:52] VITALS: BP 165/80; PULSE 66; RESP 18; TEMP 36.7; O2SAT 94
[2023-12-04 09:04] LABS: Anion Gap 5 (5-15); BUN 18 mg/dL (7-18); BUN/Creat Ratio 12.4 RATIO (10-20); Chloride 111 mmol/L (98-107); Creatinine, Serum 1.45 mg/dL (0.70-1.30); EST Glomerular Filtration Rate 49 mL/min (>60); Est Glom Filt Rate - Afr Amer 60 mL/min (>60); Estimated Creatinine Clearance 48.52 ml/min; Glucose 87 mg/dL (74-106); Potassium 4.1 mmol/L (3.5-5.1); Sodium Level 142 mmol/L (136-145)
[2023-12-04 09:09] VITALS: PULSE 66
[2023-12-04] MEDS: Cholecalciferol (VIT D3) 25 MCG TABLET (1,000 UNITS) 50 MCG PO (09:09)
[2023-12-04] MEDS: Multivitamin (Healthy Eyes) Capsule 1 CAP PO ×2 (09:09→17:25)
[2023-12-04] MEDS: Metoprolol Tartrate 25 MG Tablet PO (09:09)
[2023-12-04] MEDS: Aspirin E.C. 81 MG Tablet PO (09:09)
--- NOTE | 2023-12-04 11:16 | CASEMGMT ---
Social Work- SW met with pt and who conform that they do have living will and HCPOA. states that she thought they were on file and will mail them in. CALVIN Gallardo
--- NOTE | 2023-12-04 11:36 | PCM.PN.HOSP ---
Subjective Subjective Feels better than he did when he came in yesterday but still having significant pain after physical therapy try to get him set up at the edge of the bed which she did not do Objective Data Objective Data Vital Signs: Vital Signs Temp Pulse Resp BP Pulse Ox O2 Del Method 98.0 F 66 18 165/80 H 94 Room Air 12/04/23 08:52 12/04/23 09:09 12/04/23 08:52 12/04/23 08:52 12/04/23 08:52 12/04/23 08:52 Oxygen Delivery Method Room Air Weight: 232 lb 5.875 oz Body Mass Index (BMI) 32.3 Intake & Output: Intake and Output for Last 24 Hours 12/03/23 12/04/23 12/05/23 03:59 03:59 03:59 Intake Total 400 / 400 997.92 / 997.92 Output Total 350 / 350 Balance 50 / 50 997.92 / 997.92 Lab / Micro Data 12/04/23 06:00 12/04/23 06:00 Labs: Laboratory Results - last 24 hr 12/04/23 06:00: WBC 7.6, RBC 5.38, Hgb 15.8, Hct 48.2, MCV 89.6, MCH 29.4, MCHC 32.8, RDW Std Deviation 44.6 H, RDW Coeff of Anyi 13.8, Plt Count 172, MPV 10.9, Immature Gran % (Auto) 0.300, Neut % (Auto) 61.8, Lymph % (Auto) 23.2, Coal % (Auto) 12.0 H, Eos % (Auto) 2.0, Baso % (Auto) 0.7, Absolute Neuts (auto) 4.7, Absolute Lymphs (auto) 1.76, Nucleated RBC % 0, Sodium 142, Potassium 4.1, Chloride 111 H, Carbon Dioxide 26.0, Anion Gap 5, BUN 18, Creatinine 1.45 H, Estim Creat Clear Calc 48.52, Est GFR (MDRD) Af Amer 60, Est GFR (MDRD) Non-Af 49 L, BUN/Creatinine Ratio 12.4, Glucose 87, Calcium 8.0 L Radiography Diagnostic Testing: Radiology Impression Brain CT 12/03/23 14:43 IMPRESSION: Chronic involutional changes of the brain. Electronically Signed: Erwin Miller MD at 15:40 EDT , Cervical Spine CT 12/03/23 14:43 IMPRESSION: Degenerative changes of the cervical spine. Electronically Signed: Ye Bauer DO at 16:54 EDT , Thoracic Spine X-Ray 12/03/23 14:43 IMPRESSION: No fracture or dislocation in the thoracic spine. Moderate degenerative changes. Electronically Signed: Clinton Collier MD at 16:38 EDT , Ribs w/Chest X-Ray 12/03/23 15:55 IMPRESSION: RIBS: No displaced rib fracture identified. CHEST: Clear lungs. Electronically Signed: Clinton Collier MD at 16:39 EDT , Physical Exam Narrative General: Alert, Oriented x3, Cooperative, No apparent distress HEENT: Atraumatic, PERRLA, EOMI, Normocephalic Oral: Moist Mucosa Neck: Supple, No JVD, slight ecchymosis on his left neck from fall Lungs: Clear to auscultation, Normal air movement, No rhonchi, No wheeze, No rales Cardiovascular: Regular rate, Regular Rhythm, Normal S1, Normal S2, No murmurs Abdomen: Soft, Non Tender, Non-Distended, No Hepato-splenomegaly Extremities: No edema, Capillary Refill Less than 3 Seconds Skin: No rashes, No breakdown Musculoskeletal: No Tenderness to Palpation of Joints or Extremities, he was in too much pain to be manipulated into examining his back at this time Neurological: No focal neurological deficits, Motor Exam 5/5 strength throughout, Sensory exam intact to light touch and pain Psych/Mental Status: Normal Affect, Appropriate Assessment & Plan Assessment/Plan (1) Fall: PLAN: Plan 1. Mechanical fall with intractable back pain ? He was trying to sit on his hammock which flipped and he fell onto the ground and hurt his neck as well as his back. ? CT of the cervical spine as well as the x-rays of the thoracic spine were negative for fracture ? CT of the brain was negative for bleed ? Continue with narcotics and will schedule Tylenol ? Continue with PT/OT ? He refuses SNF placement 2. CAD status post CABG/ essential HTN ? Blood pressure stable ? Resume his home blood pressure medications ? Will monitor make adjustments as necessary ? Continue with aspirin 3. Glaucoma ? Stable ? Continue with his home eyedrops DVT: SCDs Charges/Coding Visit Charges Inpatient E&M: 10489 Subs Hosp L2
--- NOTE | 2023-12-04 12:00 | CASEMGMT ---
ERIKA CARTER Assessment: Face to Face with pt for initial transition planning/care coordination assessment. ERIKA CARTER introduced self and role at [facility], pt voices understanding and consents to assessment. Pt is A&O x4 and answers all questions appropriately at this time. Pt lying in bed in no distress with at bedside. Care providers, pharmacy, and demographics verified/updated. Admitting Dx: debility due to mechanical fall PCP:Jose Manuel Specialists:Yesi opthector; durga Dudley; Erin, cardio Preferred Pharmacy: [facility] Retail Insurance: [employer] [facility] Prescription Benefit: yes LNOK: Ruth Perales, miriam Living Arrangements: Pt lives with in a two story remodeled barn with a ramp to enter in the back. Pt reports he is typically I in ADL's and denies concerns at home. Transportation: Pt drives self and denies concerns with transportation. DME:Does not use AD but has a shower chair, w/c, crutches, cane and walker available. HHC/SNF: Pt has had HHC in the past but cannot recall the name of the agency. Pt denies SNF hx. Pt states no concerns with going home at time of dc. Pt states he does not need any homegoing services and plans to dc home tomorrow or . 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 Pt states no further concerns/needs. CM to follow. Advised pt to ask CM if any further question/concerns/needs arise, voices understanding. Pt Goal: Home Plan: TBD pending progress with therapy Arlette JAMES CM
[2023-12-04] MEDS: Acetaminophen 500 MG Tablet 1000 MG PO (13:41)
[2023-12-04 15:12] VITALS: BP 130/79; PULSE 59; RESP 18; TEMP 36.3; O2SAT 97
--- NOTE | 2023-12-04 16:45 | CASEMGMT ---
Met with?patient to complete ROSARIO form. ROSARIO form explained to?patient who voiced understanding and signed form. Original form placed in pt?s chart and copy provided to patient.? Marlene Randle, Discharge Planning Asst
[2023-12-04] MEDS: BRIMONIDINE 0.2% 5ML BOTTLE 1 DRP LEFT EYE (21:38)
[2023-12-04] MEDS: Timolol 0.5% 5ML OPTH.BTL 1 DRP OPHTHALMIC (21:40)
[2023-12-04] MEDS: Docusate Sodium 100 MG Capsule PO (21:46)
[2023-12-04] MEDS: Ondansetron 4 MG/2 ML Vial IV (21:52)
[2023-12-04] MEDS: Morphine 2 MG/ML Syringe IV (22:01)
[2023-12-05] MEDS: proMETHazine 25 MG/ML Syringe IM (01:24)
[2023-12-05] MEDS: Morphine 4 MG/ML Syringe IV (01:24)
[2023-12-05] MEDS: Aspirin E.C. 81 MG Tablet PO (08:46)
[2023-12-05] MEDS: Multivitamin (Healthy Eyes) Capsule 1 CAP PO ×2 (08:46→17:35)
[2023-12-05] MEDS: Cholecalciferol (VIT D3) 25 MCG TABLET (1,000 UNITS) 50 MCG PO (08:47)
[2023-12-05 08:50] VITALS: BP 160/90; PULSE 64
[2023-12-05] MEDS: Metoprolol Tartrate 25 MG Tablet PO ×2 (08:50→21:33)
[2023-12-05] MEDS: BRIMONIDINE 0.2% 5ML BOTTLE 1 DRP LEFT EYE ×2 (09:01→21:33)
[2023-12-05] MEDS: Docusate Sodium 100 MG Capsule PO ×2 (09:01→21:32)
[2023-12-05] MEDS: Timolol 0.5% 5ML OPTH.BTL 1 DRP OPHTHALMIC ×2 (09:03→21:33)
[2023-12-05 09:11] VITALS: BP 160/90; PULSE 68; RESP 18; TEMP 36.5; O2SAT 94
--- NOTE | 2023-12-05 09:55 | PCM.PN.HOSP ---
Subjective Subjective States he is feeling a little bit better today Objective Data Objective Data Vital Signs: Vital Signs Temp Pulse Resp BP Pulse Ox O2 Del Method 97.7 F L 68 18 160/90 H 94 Room Air 12/05/23 09:11 12/05/23 09:11 12/05/23 09:11 12/05/23 09:11 12/05/23 09:11 12/05/23 09:11 Oxygen Delivery Method Room Air Weight: 232 lb 5.875 oz Body Mass Index (BMI) 32.3 Intake & Output: Intake and Output for Last 24 Hours 12/04/23 12/05/23 12/06/23 03:59 03:59 03:59 Intake Total 400 / 400 2197.92 / 2197.92 Output Total 350 / 350 200 / 200 Balance 50 / 50 / Lab / Micro Data 12/04/23 06:00 12/04/23 06:00 Physical Exam Narrative General: Alert, Oriented x3, Cooperative, No apparent distress HEENT: Atraumatic, PERRLA, EOMI, Normocephalic Oral: Moist Mucosa Neck: Supple, No JVD, slight ecchymosis on his left neck from fall Lungs: Clear to auscultation, Normal air movement, No rhonchi, No wheeze, No rales Cardiovascular: Regular rate, Regular Rhythm, Normal S1, Normal S2, No murmurs Abdomen: Soft, Non Tender, Non-Distended, No Hepato-splenomegaly Extremities: No edema, Capillary Refill Less than 3 Seconds Skin: No rashes, No breakdown Musculoskeletal: No Tenderness to Palpation of Joints or Extremities, he was in too much pain to be manipulated into examining his back at this time Neurological: No focal neurological deficits, Motor Exam 5/5 strength throughout, Sensory exam intact to light touch and pain Psych/Mental Status: Normal Affect, Appropriate Assessment & Plan Assessment/Plan (1) Fall: PLAN: Plan 1. Mechanical fall with intractable back pain ? He was trying to sit on his hammock which flipped and he fell onto the ground and hurt his neck as well as his back. ? CT of the cervical spine as well as the x-rays of the thoracic spine were negative for fracture ? CT of the brain was negative for bleed ? Continue with narcotics and will schedule Tylenol ? Continue with PT/OT ? He refuses SNF placement 2. CAD status post CABG/ essential HTN ? Blood pressure stable ? Resume his home blood pressure medications ? Will monitor make adjustments as necessary ? Continue with aspirin 3. Glaucoma ? Stable ? Continue with his home eyedrops DVT: SCDs Charges/Coding Visit Charges Inpatient E&M: 85310 Subs Hosp L2
[2023-12-05] MEDS: oxyCODONE 5 MG Tablet 10 MG PO ×3 (11:50→21:31)
[2023-12-05] MEDS: NETARSUDIL MESYLAT/LATANOPROST 2.5 ML DROPS 1 ML EACH EYE (11:53)
[2023-12-05] MEDS: 0.9% Saline Lock 10 ML Syringe IV ×2 (13:33→17:30)
[2023-12-05] MEDS: Acetaminophen 500 MG Tablet 1000 MG PO ×2 (13:33→21:32)
[2023-12-05 13:35] VITALS: BP 134/86; PULSE 64; RESP 18; TEMP 36.7; O2SAT 93
[2023-12-05 17:24] VITALS: BP 133/74; PULSE 54; RESP 16; TEMP 36.6; O2SAT 99
[2023-12-05 20:00] VITALS: BP 143/80; PULSE 65; RESP 16; TEMP 36.6; O2SAT 95
[2023-12-05 21:33] VITALS: BP 143/80; PULSE 65
[2023-12-06] VITALS (7 sets, daily range): BP systolic 136–172; BP diastolic 64–100; PULSE 52–68; RESP 16–18; TEMP 36.4–37.2; O2SAT 94–97
[2023-12-06] MEDS: Acetaminophen 500 MG Tablet 1000 MG PO ×3 (05:55→21:01)
--- NOTE | 2023-12-06 07:21 | DCINST_ITS ---
Discharge Instructions Diet Discharge Diet: Low fat / Low cholesterol Activity Discharge Activity: Return to Normal Activity and May Not Drive (While on narcotics) Dressing / Incision Call your doctor if you observe: Fever of 101 or Higher, Shortness of breath, Dizziness, Fainting spells, Swelling in the ankles, Chest pain and Increased palpitations (irregular heartbeat) Follow Up Care Test Results: Test results from this visit will be discussed in further detail at your follow- up appointment, if applicable. Discharge Plan Admission Admit Date/Time: 12/03/23 19:51 Attending Provider: Hiren Mcintyre Primary Care Provider: Jazlyn Richard Consulting Providers: Linda Leal Discharge Orders/Prescriptions Prescriptions: New oxycodone 5 mg Tablet 10 mg PO Q4H PRN PRN (Reason: Pain Score 4-10) 3 Days Qty: 10 0RF Rx Instructions: Take 1-2 tabs as needed Continued aspirin [Adult Aspirin Regimen] 81 mg tablet,delayed release (DR/EC) 81 mg PO DAILY Qty: 90 3RF PreserVision AREDS 4,296 mcg-226 mg-90 mg capsule 1 cap PO BID cholecalciferol (vitamin D3) 2,000 UNIT tablet,chewable 2,000 unit PO DAILY Rocklatan 0.02-0.005 % drops 1 drp ophthalmic (eye) DAILY coenzyme Q10 [Co Q-10] 1 cap PO BID Patient Comments: PT UNAWARE OF STRENGTH, GETS FROM [facility] brimonidine 0.2 % drops 1 drp LEFT EYE BID timolol maleate 0.5 % drops 1 drp ophthalmic (eye) BID metoprolol tartrate 25 mg tablet 25 mg PO BID Qty: 180 3RF Referrals / Follow Up: Jazlyn Richard DO [Primary Care Provider] - Within 1 Week Disposition Disposition (needs filled in before D/C Order can be placed): Home, Self Care
--- NOTE | 2023-12-06 08:59 | CASEMGMT ---
RN CM into patient room, pt laying in bed. Denied any concerns or needs going home.
[2023-12-06] MEDS: Cholecalciferol (VIT D3) 25 MCG TABLET (1,000 UNITS) 50 MCG PO (09:11)
[2023-12-06] MEDS: Docusate Sodium 100 MG Capsule PO ×2 (09:12→21:03)
[2023-12-06] MEDS: Metoprolol Tartrate 25 MG Tablet PO ×2 (09:12→21:02)
[2023-12-06] MEDS: Timolol 0.5% 5ML OPTH.BTL 1 DRP OPHTHALMIC ×2 (09:12→21:02)
[2023-12-06] MEDS: Aspirin E.C. 81 MG Tablet PO (09:13)
[2023-12-06] MEDS: BRIMONIDINE 0.2% 5ML BOTTLE 1 DRP LEFT EYE ×2 (09:13→21:02)
[2023-12-06] MEDS: NETARSUDIL MESYLAT/LATANOPROST 2.5 ML DROPS 1 ML EACH EYE (09:13)
[2023-12-06] MEDS: Multivitamin (Healthy Eyes) Capsule 1 CAP PO ×2 (09:13→16:34)
[2023-12-06] MEDS: oxyCODONE 5 MG Tablet 10 MG PO ×2 (09:58→13:57)
--- NOTE | 2023-12-06 14:44 | PCM.PN.HOSP ---
Subjective Subjective Had hiccups overnight so now he can go home Objective Data Objective Data Vital Signs: Vital Signs Temp Pulse Resp BP Pulse Ox O2 Del Method 98 F 66 18 159/100 H 94 Room Air 12/06/23 12:40 12/06/23 12:40 12/06/23 12:40 12/06/23 12:40 12/06/23 12:40 12/06/23 12:40 Oxygen Delivery Method Room Air Weight: 232 lb 5.875 oz Body Mass Index (BMI) 32.3 Intake & Output: Intake and Output for Last 24 Hours 12/05/23 12/06/23 12/07/23 03:59 03:59 03:59 Intake Total 2197.92 / 2197.92 950 / 950 Output Total 200 / 200 250 / 250 450 / 450 Balance 1996.92 / 1996. 700 / 700 -450 / -450 Lab / Micro Data 12/04/23 06:00 12/04/23 06:00 Physical Exam Narrative General: Alert, Oriented x3, Cooperative, No apparent distress HEENT: Atraumatic, PERRLA, EOMI, Normocephalic Oral: Moist Mucosa Neck: Supple, No JVD, slight ecchymosis on his left neck from fall Lungs: Clear to auscultation, Normal air movement, No rhonchi, No wheeze, No rales Cardiovascular: Regular rate, Regular Rhythm, Normal S1, Normal S2, No murmurs Abdomen: Soft, Non Tender, Non-Distended, No Hepato-splenomegaly Extremities: No edema, Capillary Refill Less than 3 Seconds Skin: No rashes, No breakdown Musculoskeletal: No Tenderness to Palpation of Joints or Extremities, he was in too much pain to be manipulated into examining his back at this time Neurological: No focal neurological deficits, Motor Exam 5/5 strength throughout, Sensory exam intact to light touch and pain Psych/Mental Status: Normal Affect, Appropriate Assessment & Plan Assessment/Plan (1) Fall: PLAN: Plan 1. Mechanical fall with intractable back pain ? He was trying to sit on his hammock which flipped and he fell onto the ground and hurt his neck as well as his back. ? CT of the cervical spine as well as the x-rays of the thoracic spine were negative for fracture ? CT of the brain was negative for bleed ? Continue with narcotics and will schedule Tylenol ? Continue with PT/OT ? He refuses SNF placement 2. CAD status post CABG/ essential HTN ? Blood pressure stable ? Resume his home blood pressure medications ? Will monitor make adjustments as necessary ? Continue with aspirin 3. Glaucoma ? Stable ? Continue with his home eyedrops DVT: SCDs Charges/Coding Visit Charges Inpatient E&M: 20600 Subs Hosp L2
--- NOTE | 2023-12-06 14:45 | NURSING ---
Pt refused SNF placement, was cleared to go home. This RN completed VS, discharge instructions, and removed IV. Pt said he wanted to take dose of tylenol and oxy before leaving so he would be able to move better. This RN gave doses of medications and checked back in. When checking back in, the pt told this RN that he did not want to leave since he wasn't able to move well. This RN talked to Dr Mcintyre and he said it was OK for pt to stay. Pt's son had already picked up prescription of oxycodone, so this RN locked up prescription in pt's medication drawer until DC. Case management aware of situation and will talk to pt.
--- NOTE | 2023-12-06 15:15 | CASEMGMT ---
Addendum entered by Ceci Costa 12/06/23 15:30: OT updated that 2 therapists and a student went in and pt refused treatment. Updated hospitalist. Pt is aware dc will be tomorrow. Original Note: RN RAUL notified that pt wanted to stay the night. ERIKA CARTER into pt room, pt requesting to stay. Asked pt what will change in 1 day, he states he cannot get oob. He is aware hospitalist will be updated on this request. OT in [place] and states she will see pt again today to see how he does. Updated hospitalist, agreeable for one more day.
[2023-12-07] MEDS: oxyCODONE 5 MG Tablet 10 MG PO ×2 (02:08→12:45)
[2023-12-07 02:35] VITALS: BP 149/94; PULSE 68; RESP 16; TEMP 36.7; O2SAT 96
[2023-12-07] MEDS: Acetaminophen 500 MG Tablet 1000 MG PO ×2 (05:16→15:06)
[2023-12-07 07:03] LABS: Absolute Lymphocyte Count 1.92 X10^3/uL (0.83-4.51); Absolute Neutrophil Count 4.8 X10^3/uL (2.0-7.7); Basophil# 0.06 X10^3/uL; Basophil% 0.8 % (0-1); Eosinophils% 2.6 % (0-5); Hematocrit 49.6 % (40-54); Hemoglobin 15.9 g/dL (13.0-16.5); Lymphocyte # 1.92 X10^3/ul (0.83-4.51); Lymphocyte % 24.9 % (19-41); Mean Corp Hgb Conc 32.1 g/dL (32-36); Mean Corpuscular Hgb 28.3 pg (27.0-32.0); Mean Corpuscular Volume 88.4 fL (80-94); Mean Platelet Vol. 10.9 fl (6.2-12.0); Monocyte# 0.68 X10^3/uL; Monocyte% 8.8 % (0-10); NRBC Flagged by Analyzer 0 % (0-5); Neutrophil # 4.84 X10^3/uL (2.7-7.7); Neutrophil % 62.6 % (47-70); Platelet Count 164 K/mm3 (150-450); RBC Distribution Width CV 13.4 % (11.6-14.6); RBC Distribution Width SD 43.3 fl (35.1-43.9); Red Blood Count 5.61 M/mm3 (4.6-6.2); White Blood Count 7.7 K/mm3 (4.4-11.0)
[2023-12-07 07:24] LABS: Anion Gap 3 (5-15); BUN 20 mg/dL (7-18); BUN/Creat Ratio 15.2 RATIO (10-20); Calcium,Total 8.6 mg/dL (8.5-10.1); Chloride 108 mmol/L (98-107); Creatinine, Serum 1.32 mg/dL (0.70-1.30); EST Glomerular Filtration Rate 55 mL/min (>60); Est Glom Filt Rate - Afr Amer 67 mL/min (>60); Glucose 80 mg/dL (74-106); Potassium 3.8 mmol/L (3.5-5.1); Sodium Level 139 mmol/L (136-145)
--- NOTE | 2023-12-07 09:57 | PCM.PN.HOSP ---
Subjective Subjective Maybe a little bit better than yesterday, complain of constipation this morning Objective Data Objective Data Vital Signs: Vital Signs Temp Pulse Resp BP Pulse Ox O2 Del Method 98.1 F 68 16 149/94 H 96 Room Air 12/07/23 02:35 12/07/23 02:35 12/07/23 02:35 12/07/23 02:35 12/07/23 02:35 12/07/23 02:35 Oxygen Delivery Method Room Air Weight: 232 lb 5.875 oz Body Mass Index (BMI) 32.3 Intake & Output: Intake and Output for Last 24 Hours 12/06/23 12/07/23 12/08/23 03:59 03:59 03:59 Intake Total 950 / 950 Output Total 250 / 250 800 / 800 250 / 250 Balance 700 / 700 -800 / -800 -250 / -250 Lab / Micro Data 12/07/23 05:35 12/07/23 05:35 Labs: Laboratory Results - last 24 hr 12/07/23 05:35: WBC 7.7, RBC 5.61, Hgb 15.9, Hct 49.6, MCV 88.4, MCH 28.3, MCHC 32.1, RDW Std Deviation 43.3, RDW Coeff of Anyi 13.4, Plt Count 164, MPV 10.9, Immature Gran % (Auto) 0.300, Neut % (Auto) 62.6, Lymph % (Auto) 24.9, Wright % (Auto) 8.8, Eos % (Auto) 2.6, Baso % (Auto) 0.8, Absolute Neuts (auto) 4.8, Absolute Lymphs (auto) 1.92, Nucleated RBC % 0, Sodium 139, Potassium 3.8, Chloride 108 H, Carbon Dioxide 28.0, Anion Gap 3 L, BUN 20 H, Creatinine 1.32 H, Estim Creat Clear Calc 53.30, Est GFR (MDRD) Af Amer 67, Est GFR (MDRD) Non-Af 55 L, BUN/Creatinine Ratio 15.2, Glucose 80, Calcium 8.6 Physical Exam Narrative General: Alert, Oriented x3, Cooperative, No apparent distress HEENT: Atraumatic, PERRLA, EOMI, Normocephalic Oral: Moist Mucosa Neck: Supple, No JVD, slight ecchymosis on his left neck from fall Lungs: Clear to auscultation, Normal air movement, No rhonchi, No wheeze, No rales Cardiovascular: Regular rate, Regular Rhythm, Normal S1, Normal S2, No murmurs Abdomen: Soft, Non Tender, Non-Distended, No Hepato-splenomegaly Extremities: No edema, Capillary Refill Less than 3 Seconds Skin: No rashes, No breakdown Musculoskeletal: No Tenderness to Palpation of Joints or Extremities, he was in too much pain to be manipulated into examining his back at this time Neurological: No focal neurological deficits, Motor Exam 5/5 strength throughout, Sensory exam intact to light touch and pain Psych/Mental Status: Normal Affect, Appropriate Assessment & Plan Assessment/Plan (1) Fall: PLAN: Plan 1. Mechanical fall with intractable back pain ? He was trying to sit on his hammock which flipped and he fell onto the ground and hurt his neck as well as his back. ? CT of the cervical spine as well as the x-rays of the thoracic spine were negative for fracture ? CT of the brain was negative for bleed ? Continue with narcotics and will schedule Tylenol ? Continue with PT/OT ? He refuses SNF placement ? Will add MiraLAX as he says he has not had a bowel movement in several days 2. CAD status post CABG/ essential HTN ? Blood pressure stable ? Resume his home blood pressure medications ? Will monitor make adjustments as necessary ? Continue with aspirin 3. Glaucoma ? Stable ? Continue with his home eyedrops DVT: SCDs Charges/Coding Visit Charges Inpatient E&M: 12140 Subs Hosp L2
[2023-12-07 09:58] VITALS: BP 167/104; PULSE 57; RESP 16; TEMP 36.3; O2SAT 97
[2023-12-07 10:02] VITALS: BP 167/104; PULSE 57
[2023-12-07] MEDS: Metoprolol Tartrate 25 MG Tablet PO (10:02)
[2023-12-07] MEDS: Docusate Sodium 100 MG Capsule PO (10:02)
[2023-12-07] MEDS: Multivitamin (Healthy Eyes) Capsule 1 CAP PO (10:02)
[2023-12-07] MEDS: Aspirin E.C. 81 MG Tablet PO (10:03)
[2023-12-07] MEDS: Cholecalciferol (VIT D3) 25 MCG TABLET (1,000 UNITS) 50 MCG PO (10:03)
[2023-12-07] MEDS: NETARSUDIL MESYLAT/LATANOPROST 2.5 ML DROPS 1 ML EACH EYE (10:04)
[2023-12-07] MEDS: Timolol 0.5% 5ML OPTH.BTL 1 DRP OPHTHALMIC (10:04)
[2023-12-07] MEDS: BRIMONIDINE 0.2% 5ML BOTTLE 1 DRP LEFT EYE (10:05)
--- NOTE | 2023-12-07 12:45 | CASEMGMT ---
Addendum entered by Joellen Mittal 12/07/23 14:05: ERIKA CARTER updated by nursing that patient did well with therapy and would like to discharge to home. RN CM in to discuss needs at discharge. Patient and would like [facility] for HHC after reviewing list. RN CM explained that referral will be made and HHC and CM will follow-up on Saturday with acceptance. Patient, , and son voiced understanding and had no further questions or concerns. RN CM update hospitalist of discharge plan. RN CM called and made referral to [facility]. Original Note: RN RAUL updated by SW that would like HHC at discharge. RN CM in to discuss needs at discharge with patient, , and son. Patient was provided a list of C providers including quality and resource use data and consistent with the patient?s preferred geographic region, medical needs, and insurance network were provided from the [employer]. [employer] at bedside and patient states he cannot work with therapy at this time due to pain. RN CM discussed importance of therapy to determine safe discharge. Patient due for pain medication and will coordinate with therapy to try back again. and son voiced concern and think patient may need SNF at discharge. Will monitor how patient does with therapy to determine disposition at discharge. SW updated regarding possible SNF at discharge. CM will continue to follow this patient and plan for and safe discharge.
[2023-12-07] MEDS: Polyethylene Glycol 3350 17 GM PACKET PO (12:52)
--- NOTE | 2023-12-07 13:01 | CASEMGMT ---
Social Work SW met w/pt's at the nurse's station. She asked SW about possible home health for pt, SW let CM know. SW also spoke w/ about the situation, offered support. CM spoke w/pt and family, they may consider SNF depending on how therapy goes today. SW met w/pt, and son in room in regard to the discharge plan. SW provided a list from [facility] of senior living facilities in network w/pt's insurance, in pt's preferred geographic area, and complete w/quality and resource use data. SW explained to pt and family if SNF is needed, would ask them to choose 3 facilities, SW will send referrals, and then whichever facility has a bed would need to start precert. They state understanding. did ask about TCU, SW explained would need to see about bed availability. SW/CM will follow up again once pt has PT/OT today, to see how it goes, to help determine the most appropriate discharge plan. LISBETH Sharma
[2023-12-07 15:25] VITALS: BP 152/90; PULSE 62; RESP 16; TEMP 36.6; O2SAT 98
--- NOTE | 2023-12-07 15:46 | DS.PCM_ITS ---
Providers Date of Admission: 12/03/23 Primary Care Physician: Dr. Jazlyn Richard DO Reason For Visit: DEBILITY DUE TO MECHANICAL FALL Diagnosis Discharge Diagnosis (1) Fall: Status: Acute Code(s): W19.XXXA - Unspecified fall, initial encounter Medications at Discharge Home Medications cholecalciferol (vitamin D3) 50 mcg (2,000 unit) chewable tablet 2,000 unit PO DAILY SUPPLEMENT 10/10/18 aspirin 81 mg tablet,delayed release (Adult Aspirin Regimen) 81 mg PO DAILY #90 tabs 01/21/23 vitamins A,C,X-vcip-adtkqp 4,296 mcg-226 mg-90 mg capsule (PreserVision AREDS) 1 cap PO BID 04/17/23 metoprolol tartrate 25 mg tablet 25 mg PO BID #180 tabs 05/06/23 coenzyme Q10 1 cap PO BID 12/03/23 netarsudil 0.02 %-latanoprost 0.005 % eye drops (Rocklatan) 1 drp ophthalmic (eye) DAILY 12/03/23 brimonidine 0.2 % eye drops 1 drp LEFT EYE BID 12/04/23 timolol maleate 0.5 % eye drops 1 drp ophthalmic (eye) BID 12/04/23 oxycodone 5 mg tablet 10 mg (2 x 5 mg) PO Q4H PRN PRN Pain Score 4-10 3 days #10 tabs 12/06/23 Hospital Course Operations None Procedures None Summary of Care Provided Minutes Spent on Discharge: 32 Hospital Course: Per HPI: ERI GUEVARA, is a 83 M with a PMH as outlined who was admitted via the ED on 12/03/2023 with a complaint of mechanical fall. He fell out of his hammock the day of admission and says he landed on his left side and hit his head. He felt something popped in his neck and upper back. Pain was worsened with movement. He was on th floor for about 2 hours before his found him. H e admitted to tingling in his LUE also that lasted a few days and then resolved. he denied any weakness, any loss of consciousness, fever, chills, dizziness, nausea, vomiting or any other systems. Review of systems is otherwise negative. Vitals in the ED were blood pressure 144/94, pulse rate of 65 and respirate rate of 20 with temperature of 97.8 Fahrenheit. He was saturating at 98% on room ai r. CT of the brain showed chronic involutional changes. CT of the cervical spine cord showed chronic changes degenerative disease acute pathology. Thoracic spine x-ray and chest x-ray showed no evidence of fracture or dislocation in the thoracic spine and no rib fractures also. Patient said he w as in too much pain to be able to go home. He has been admitted to be managed for debility due to mechanical fall. Hospital Course: 1. Mechanical fall with intractable back pain ? He was trying to sit on his hammock which flipped and he fell onto the ground and hurt his neck as well as his back. ? CT of the cervical spine as well as the x-rays of the thoracic spine were negative for fracture ? CT of the brain was negative for bleed ? Continue with narcotics and will schedule Tylenol ? Continue with PT/OT ? He refuses SNF placement ? Will add MiraLAX as he says he has not had a bowel movement in several days 12/07/2023: Initially family wanted to stay for an MRI on Saturday to evaluate for soft tissue damage despite no intervention being necessary at that time however patient elected to go home. I have discussed with him a few days prior but we are planning for discharge the risk and benefits of going home and he expressed at that time understanding of those risks and had so elected to go home. 2. CAD status post CABG/essential HTN ? Blood pressure stable ? Resume his home blood pressure medications ? Will monitor make adjustments as necessary ? Continue with aspirin 3. Glaucoma ? Stable ? Continue with his home eyedrops Physical Exam Narrative General: Alert, Oriented x3, Cooperative, No apparent distress HEENT: Atraumatic, PERRLA, EOMI, Normocephalic Oral: Moist Mucosa Neck: Supple, No JVD, slight ecchymosis on his left neck from fall Lungs: Clear to auscultation, Normal air movement, No rhonchi, No wheeze, No rales Cardiovascular: Regular rate, Regular Rhythm, Normal S1, Normal S2, No murmurs Abdomen: Soft, Non Tender, Non-Distended, No Hepato-splenomegaly Extremities: No edema, Capillary Refill Less than 3 Seconds Skin: No rashes, No breakdown Musculoskeletal: No Tenderness to Palpation of Joints or Extremities, he was in too much pain to be manipulated into examining his back at this time Neurological: No focal neurological deficits, Motor Exam 5/5 strength throughout, Sensory exam intact to light touch and pain Psych/Mental Status: Normal Affect, Appropriate Weight / BMI Weight Weight: 232 lb 5.875 oz Body Mass Index (BMI) 32.3 ABG / Lab / Microbiology Data 12/07/23 05:35 12/07/23 05:35 Laboratory: Laboratory Results - last 24 hr 12/07/23 05:35: WBC 7.7, RBC 5.61, Hgb 15.9, Hct 49.6, MCV 88.4, MCH 28.3, MCHC 32.1, RDW Std Deviation 43.3, RDW Coeff of Anyi 13.4, Plt Count 164, MPV 10.9, Immature Gran % (Auto) 0.300, Neut % (Auto) 62.6, Lymph % (Auto) 24.9, [place] % (Auto) 8.8, Eos % (Auto) 2.6, Baso % (Auto) 0.8, Absolute Neuts (auto) 4.8, Absolute Lymphs (auto) 1.92, Nucleated RBC % 0, Sodium 139, Potassium 3.8, Chloride 108 H, Carbon Dioxide 28.0, Anion Gap 3 L, BUN 20 H, Creatinine 1.32 H, Estim Creat Clear Calc 53.30, Est GFR (MDRD) Af Amer 67, Est GFR (MDRD) Non-Af 55 L, BUN/Creatinine Ratio 15.2, Glucose 80, Calcium 8.6 D/C Instructions Discharge Diet: Low fat / Low cholesterol Call your doctor if you observe: Fever of 101 or Higher, Shortness of breath, Dizziness, Fainting spells, Swelling in the ankles, Chest pain and Increased palpitations (irregular heartbeat) Meaningful Use Info Meaningful Use Meaningful Use Diagnoses (Choose all that apply): None applicable Ischemic Stroke Statin Dosing Therapy Reference: STATIN DOSE THERAPY REFERENCE: * Patients > 75 years receive moderate or high dose statin therapy. * Patients 75 years or YOUNGER should receive HIGH intensity statin dose unless contraindicated. You will be required to document reason for non-treatment if statin daily dose does not meet guidelines. HIGH DOSE STATIN THERAPY DAILY Atorvastatin > than or = to 40 mg Rosuvastatin > than or = to 20 mg Amlodipine + Atorvastatin > than or = to 2.5/40 mg Ezetimibe + Simvastatin 10/80 mg Simvastatin 80mg Discharge Plan Admission Admit Date/Time: 12/03/23 19:51 Primary Reason for Your Visit: DEBILITY DUE TO MECHANICAL FALL Attending Provider: Hiren Mcintyre Primary Care Provider: Jazlyn Richard Consulting Providers: Linda Leal Discharge Orders/Prescriptions Prescriptions: New oxycodone 5 mg Tablet 10 mg PO Q4H PRN PRN (Reason: Pain Score 4-10) 3 Days Qty: 10 0RF Rx Instructions: Take 1-2 tabs as needed Continued aspirin [Adult Aspirin Regimen] 81 mg tablet,delayed release (DR/EC) 81 mg PO DAILY Qty: 90 3RF PreserVision AREDS 4,296 mcg-226 mg-90 mg capsule 1 cap PO BID cholecalciferol (vitamin D3) 2,000 UNIT tablet,chewable 2,000 unit PO DAILY Rocklatan 0.02-0.005 % drops 1 drp ophthalmic (eye) DAILY coenzyme Q10 [Co Q-10] 1 cap PO BID Patient Comments: PT UNAWARE OF STRENGTH, GETS FROM [facility] On[facility] brimonidine 0.2 % drops 1 drp LEFT EYE BID timolol maleate 0.5 % drops 1 drp ophthalmic (eye) BID metoprolol tartrate 25 mg tablet 25 mg PO BID Qty: 180 3RF Referrals / Follow Up: Jazlyn Richard DO [Primary Care Provider] - 12/09/23 11:15 am Disposition Disposition (needs filled in before D/C Order can be placed): Home, Self Care Charges/Coding Visit Charges Inpatient E&M: 22166 Disch Hosp >30min
--- NOTE | 2023-12-09 15:10 | CASEMGMT ---
TC to [facility], spoke with Malinda, she states pt declined services after going to PCP appt today.
== END 2023-12-07 15:18 | disposition home or self-care (01) ==
LOC: ED 18:08 → MS3 20:23
PROVIDERS: Admitting Provider Student in an Organized Health Care Education/Training Program; Emergency Provider Emergency Medicine; PCP Internal Medicine; Visit Provider Family Medicine
DX: S16.1XXA Strain of muscle, fascia and tendon at neck level, initial encounter (principal); N18.30 Chronic kidney disease, stage 3 unspecified; S09.90XA Unspecified injury of head, initial encounter; H40.9 Unspecified glaucoma; W17.89XA Other fall from one level to another, initial encounter; E78.5 Hyperlipidemia, unspecified; Z79.82 Long term (current) use of aspirin; I12.9 Hypertensive chronic kidney disease with stage 1 through stage 4 chronic kidney disease, or unspecified chronic kidney disease; I25.10 Atherosclerotic heart disease of native coronary artery without angina pectoris; Z87.891 Personal history of nicotine dependence; R53.81 Other malaise; R26.2 Difficulty in walking, not elsewhere classified; Z79.899 Other long term (current) drug therapy; Z95.1 Presence of aortocoronary bypass graft
CPT/HCPCS: 36415; 70450; 71101; 72072; 72125; 80048; 85025; 96361; 96372; 96374; 96375; 97162; 97166; 97530; 99221; 99285; J7030; A4216; G0378; J2405

== ENCOUNTER → 2023-12-20 | Outpatient (CLI) | payer MEDICARE, SELFPAY ==
[2023-01-21 15:10] VITALS: BMI 30.8
--- NOTE | 2023-12-20 10:21 | MRI_ITS ---
STUDY: MRI THORACIC SPINE WITHOUT CONTRAST REASON FOR EXAM: Male, 83 years old. Acute midline thoracic back pain FALL FROM HAMMOCK, CERVICAL STRAIN TECHNIQUE: Standardized fat and water weighted pulse sequences were obtained in the sagittal and axial planes. COMPARISON: X-ray of the thoracic spine dated December 03, 2023 FINDINGS: Normal kyphosis of the thoracic spine. There is no substantial scoliosis. No marrow edema or fracture or compression deformity is present. The spinal ligaments are intact. Median sternotomy wires are seen. T5-T6: Left paracentral disc protrusion osteophyte complex results in mild mass effect on the left lateral side of the thecal sac and cord, see image 30/45 series 11. T1-2, T2-3, T3-4, T4-5, T5-6, T6-7, T7-8, T8-9, T9-10, T10-11, T11-12: Multilevel disc space narrowing, disc desiccation, anterior endplate spurring and osteophyte formation, endplate degenerative changes. No posterior disc extrusions or significant bulges or cord compression are present. Normal central canal and intervertebral neural foramina at the corresponding levels. Normal visualized thoracic cord. Normal conus medullaris that terminates at the T12-L1 level. The soft tissue structures are unremarkable. MRI/Spine Thoracic (Routine) IMPRESSION: 1. Mild multilevel degenerative changes 2. T5-T6 left paracentral disc protrusion osteophyte complex with mild mass effect on the left lateral side of the thecal sac and cord Electronically Signed: Lenny Rush MD at 14:05 EDT ,
== END | disposition home or self-care (01) ==
PROVIDERS: PCP Internal Medicine; Referring Provider Internal Medicine; Visit Provider Internal Medicine
DX: M54.6 Pain in thoracic spine (principal)
CPT/HCPCS: 72146

== ENCOUNTER → 2024-08-25 | Outpatient (CLI) | payer MEDICARE, SELFPAY ==
[2023-01-21 15:10] VITALS: BMI 30.8
[2024-08-25 11:13] LABS: AST(SGOT) 17 U/L (15-37); Alanine Aminotransfer ALT/SGPT 27 U/L (16-61); Albumin, Serum 3.3 g/dL (3.2-5.0); Alkaline Phosphatase 97 U/L (45-117); Bilirubin, Direct 0.11 mg/dL (0.00-0.30); Cholesterol 279 mg/dL (200); Globulin 3.7 g/dL (2.2-4.2); High Density Lipoprotein 37 mg/dL; Triglycerides 418 mg/dL
== END | disposition home or self-care (01) ==
LOC: LAB 09:42
PROVIDERS: PCP Internal Medicine; Referring Provider Physician Assistant Medical; Visit Provider Physician Assistant Medical
DX: E78.5 Hyperlipidemia, unspecified (principal)
CPT/HCPCS: 36415; 80061; 80076

== ENCOUNTER → 2024-09-25 | Outpatient (CLI) | payer MEDICARE, SELFPAY ==
[2023-01-21 15:10] VITALS: BMI 30.8
--- NOTE | 2024-09-25 12:45 | RAD_ITS ---
PROCEDURE: CHEST PA AND LATERAL REASON FOR EXAM: One-week history of chest congestion and cough. TECHNIQUE: Frontal and lateral views of the chest. COMPARISON: Comparison is made with prior study dated December 03, 2023. FINDINGS: Hyperinflation. The lungs are clear. The bones are unremarkable. Status post CABG. Unfolding of the descending thoracic aorta. RAD/Chest PA and Lateral IMPRESSION: No acute abnormality is seen. Reading Location: [id number]
== END | disposition home or self-care (01) ==
LOC: MTRAD 12:44
PROVIDERS: PCP Internal Medicine; Referring Provider Physician Assistant Surgical; Visit Provider Physician Assistant Surgical
DX: R05.9 Cough, unspecified (principal)
CPT/HCPCS: 71046

== ENCOUNTER → 2025-02-16 | Outpatient (CLI) | payer MEDICARE, SELFPAY ==
[2023-01-21 15:10] VITALS: BMI 30.8
--- OUTSIDE RECORDS SUMMARY | 2025-02-16 06:29 | XMS RPT_ITS | CCD ---
Author Organization [facility] Care Team Providers Care Wood Flour Miller Name Role Phone Jazlyn Zayas Unavailable Karri Cat Unavailable [phone] Jazlyn Zayas Unavailable Terrence Wood Unavailable Gravius, Jodi Unavailable Unavailable Yenifer Esquivel Unavailable Unavailable Juhi Vega Unavailable Unavailable Unavailable Unavailable Jazlyn Zayas Attending Unavailable Jazlyn Zayas Referring Unavailable Jazlyn Zayas Consulting Unavailable Sagrario Interiano Unavailable Unavailable Unavailable Unavailable Yenifer Forde Unavailable Unavailable Anand Lewis Unavailable Karri Cat Unavailable Malinda Wu Unavailable Unavailable Gravius, Jodi Unavailable Unavailable Jazlyn Zayas DO Unavailable Karri Cat MD Unavailable Jazlyn Zayas DO Unavailable Terrence Wood MD Unavailable Kaylie Miles Unavailable Anand Lewis Unavailable Slarb DIETETIC INTERN, Amina Unavailable Unavailable Malinda Wu LPN Unavailable Unavailable Gravius WARHEAD MAINTENANCE SPECIALIST, Jodi Unavailable Unavailable Unavailable Unavailable Karri Cat Unavailable Gravius, Jodi Unavailable Unavailable Dr. Jazlyn Zayas Primary Care Provider Dr. Jazlyn Zayas Referring Provider [phone] DAO Babin Attending Provider DAO Daly Attending Provider Jazlyn Zayas DO Unavailable Huey DIETETIC INTERN, Ginette Unavailable Unavailable Veronica WARHEAD MAINTENANCE SPECIALIST, Madai Unavailable Unavailable Ammy, Jayaprakash Unavailable [place] WARHEAD MAINTENANCE SPECIALIST, Kayela Unavailable Unavailable Ruiz TOSCANON, Kenneth Unavailable Unavailable Dr. Jazlyn Zayas Primary Care Provider Dr. Jazlyn Zayas Referring Provider Dr. Ronnie Khan Attending Provider Dr. Jazlyn Zayas Primary Care Provider Dr. Jazlyn Zayas Referring Provider DAO Daly Attending Provider Dr. Jazlyn Zayas Primary Care Provider [phone] Dr. Jazlyn Zayas Referring Provider DAO Daly Attending Provider CONSUELO BONNER Referring Unavailable JAZLYN ZAYAS Primary Care Unavailable TIP, TOMMIE Consulting Unavailable NICKERSON, HUMZA Attending Unavailable NICKERSON, HUMZA Admitting Unavailable ELI, GREG Consulting Unavailable FORTE, OCTAVIA Consulting Unavailable Jazlyn Zayas DO Primary Care Provider [phone] [facility] Unavailable Unavailable Unavailable Unavailable Jazlyn Zayas DO Primary Care Provider [phone] Dr. Jazlyn Zayas Primary Care Provider [phone] Dr. Osvaldo Bolaños Emergency Provider Dr. Sarah Hsu Admit Provider Dr. Sarah Hsu Other Provider Dr. Coleman Khan Other Provider Dr. Ronnie Khan Attending Provider Dr. Ronnie Khan Other Provider Dr. Coleman Khan Attending Provider Dr. Jazlyn Zayas Referring Provider DAO Smith Attending Provider Giovanni YANETLisette Unavailable Dr. Jazlyn Zayas Primary Care Provider Dr. Anand Lnudberg Attending Provider Dr. Jazlyn Zayas Primary Care Provider Dr. Jazlyn Zayas Referring Provider Dr. Anand Lundberg Attending Provider Dr. Humza Don Emergency Provider Elvis, Dr. Linda Pelletier Admit Provider Dr. Linda Leal Attending Provider Elvis, Dr. Linda Pelletier Other Provider Dr. Hiren Mcintyre Attending Provider Dr. Hiren Mcintyre Other Provider Dr. Jazlyn Zayas DO Primary Care Provider Dr. Jazlyn Zayas DO Referring Provider Clinton Babin Attending Provider Liliana Smith Attending Provider Liliana Smith Referring Provider Mau Daly Attending Provider Mau Daly Referring Provider Dr. Jazlyn Zayas DO Primary Care Provider Dr. Jazlyn Zayas DO Referring Provider Clinton Babin Attending Provider Liliana Smith Attending Provider Liliana Smith Attending Unavail able Liliana Smith Referring Unavail able Jazlyn Zayas Primary Care Unavailable Liliana Smith Attending Unavail able Jose Manuel, Jazlyn Referring Unavailable Jose Manuel, Jazlyn Primary Care Unavailable Mau Daly Attending Unavailable Jose Manuel, Jazlyn Referring Unavailable Jose Manuel, Jazlyn Primary Care Unavailable Clinton Babin Attending Unavailable Jose Manuel, Jazlyn Referring Unavailable Jose Manuel, Jazlyn Primary Care Unavailable Liliana Smith Attending Unavail able Jose Manuel, Jazlyn Referring Unavailable Jose Manuel, Jazlyn Primary Care Unavailable Liliana Smith Attending Unavail able Jose Manuel, Jazlyn Primary Care Unavailable Jose Manuel, Jazlyn Referring Unavailable Clinton Babin Attending Unavailable Jose Manuel, Jazlyn Referring Unavailable Jose Manuel, Jazlyn Primary Care Unavailable Liliana Smith Attending Unavail able Liliana Smith Referring Unavail able Jose Manuel, Jazlyn Primary Care Unavailable Mau Daly Attending Unavailable Mau Daly Referring Unavailable Jose Manuel, Jazlyn Primary Care Unavailable Allergies Allergy Classification Reported Allergen(s) Allergy Type Date of Onset Reaction(s) Facility (20 sources) Codeine/Codeine Derivatives; Translations: [Codeine/Codein e Derivatives] allergy to substance [facility] Work Phone: Medications Current Medications Medication Drug Class(es) Dates Sig (Normalized) Sig (Original) aspirin 81 mg delayed release oral tablet (20 sources) Platelet Aggregation Inhibitor, Nonsteroidal Anti-inflammatory Drug Start: 03-07-2021 End: 12-26-2023 take 1 tablet by mouth once daily Aspirin (Adult Aspirin Regimen) 81 mg tablet,delayed release (DR/EC) Active 81 mg PO DAILY January 21, 2023 9:50am Start: 01-15-2019 End: 01-12-2020 take 1 tablet by mouth once daily Aspirin (Adult Aspirin Regimen) 81 mg tablet,delayed release (DR/EC) Discontinued 81 mg PO DAILY January 15, 2019 12:00am January 12, 2020 1:34pm Start: 10-10-2018 End: 12-11-2018 take 1 tablet by mouth once daily Aspirin 81 MG tablet,chewable Discontinued 81 mg PO DAILY October 10, 2018 12:00am December 11, 2018 8:22am Start: 01-27-2016 End: 02-26-2016 take 1 tablet by mouth once daily ASPIR-81, 81MG (Oral Tablet Delayed Release) 1 (one) Tablet DR qd for 30 days Quantity: 30 {Tablet} Refills: 0 Ordered: 27-Jan-2016 Jazlyn Zayas DO, DO, Kathleen Start : 27-Jan-2016 End : 26-Feb-2016 Inactive brimonidine tartrate 2 mg/ml ophthalmic solution (4 sources) alpha-Adrenergic Agonist Start: 12-04-2023 Brimonidine 0.2 % drops Active 1 NMA LEFT EYE TWICE A DAY December 04, 2023 12:00am cholecalciferol 0.05 mg chewable tablet (15 sources) Vitamin D Start: 10-10-2018 take 1 tablet by mouth once daily Cholecalciferol (Vitamin D3) 2,000 UNIT tablet,chewable Active 2000 U PO DAILY October 10, 2018 12:00am coenzyme Q10 (4 sources) Start: 12-03-2023 coenzyme Q10 Active 1 NMA PO TWICE A DAY December 03, 2023 12:00am Start: 12-03-2023 take [address] [facility] twice daily coenzyme Q10 Active 1 CAP PO TWICE A DAY December 03, 2023 12:00am dexamethasone 6 mg oral tablet (1 source) Corticosteroid Start: 08-14-2021 take 1 tablet by mouth once daily Dexamethasone (Decadron) 6 mg tablet Active 6 MG PO DAILY August 14, 2021 6:39pm latanoprost 0.05 mg/ml / netarsudil 0.2 mg/ml ophthalmic solution (5 sources) Prostaglandin Analog, Rho Kinase Inhibitor Start: 12-03-2023 Netarsudil-Latanop fatemeh (Rocklatan) 0.02-0.005 % drops Active 1 NMA OPHTHALMIC DAILY December 03, 2023 12:00am Start: 12-03-2023 Netarsudil-Lat anoprost (Rocklatan) 0.02-0.005 % drops Active 1 DRP OPHTHALMIC DAILY December 03, 2023 12:00am Timolol Maleate (19 sources) beta-Adrenergic Jonathan Start: 12-04-2023 Timolo l Maleate 0.5 % drops Active 1 NMA OPHTHALMIC TWICE A DAY December 04, 2023 12:00am Start: 12-04-2023 Timolol Maleat e Active 1 DRP OPHTHALMIC TWICE A DAY December 04, 2023 12:00am Start: 04-28-2019 End: 01-12-2020 Timolol Maleate 1 DROP drops Discontinued 1 NMA EACH EYE AT BEDTIME April 28, 2019 12:00am January 12, 2020 1:34pm Start: 04-28-2019 End: 01-12-2020 Timolol Maleate Discontinued 1 DRP EACH EYE AT BEDTIME April 28, 2019 12:00am January 12, 2020 1:34pm traMADol hydrochloride 50 mg oral tablet (6 sources) Opioid Agonist Start: 12-25-2022 End: 12-30-2022 take 0.5 tablet by mouth every six hours as needed for pain traMADol (Ultram) 50 MG tablet Indications: S/P CABG (coronary artery bypass graft) Take 0.5 tablets (25 mg) by mouth every 6 hours as needed for severe pain (7-10) (Acute post surgical pain) for up to 5 days. 10 tablet 0 12/25/2022 12/30/2022 Active Start: 12-22-2022 End: 12-25-2022 take 1 tablet by mouth every six hours as needed for pain traMADol (Ultram) tablet 25 mg Vitamins A,C,X-Zziq-Jedcio (Preservision Areds) 4,296 mcg-226 mg-90 mg capsule (7 sources) Start: 04-17-2023 Vitamins A,C,E -Zinc-Copper (Preservision Areds) 4,296 mcg-226 mg-90 mg capsule Active 1 NMA PO TWICE A DAY April 17, 2023 12:00am Start: 04-17-2023 take [address] [facility] twice daily Vitamins A,C,N-Qjnu-Mfgvji (Preservision Areds) 4,296 mcg-226 mg-90 mg capsule Active 1 CAP PO TWICE A DAY April 17, 2023 12:00am Start: 04-17-2023 take 1 capsule by mo ut twice daily Vitamins A,C,G-Tksj-Xophvp (Preservision Areds) 4,296 mcg-226 mg-90 mg capsule Active 1 CAP PO TWICE A DAY April 16, 2023 11:00pm Completed/Discontinued Medications Medication Drug Class(es) Dates Sig (Normalized) Sig (Original) 100 ml acetaminophen 10 mg/ml injection (4 sources) Start: 12-22-2022 End: 12-23-2022 acetaminophen (Ofirmev) injection 1,000 mg Start: 12-20-2022 End: 12-22-2022 take 1 tablet by mouth every six hours acetaminophen (Tylenol) tablet 1,000 mg [id number] 200 actuat albuterol 0.09 mg/actuat metered dose inhaler (20 sources) beta2-Adrenergic Agonist Start: 02-28-2015 End: 06-03-2015 PROAIR HFA, 108 (90 Base)MCG/ACT (Inhalation Aerosol Solution) 1 (one) Aerosol Soln 2 puffs q6hrs prn for 0 days Quantity: 1 {Inhaler} Refills: 3 Ordered: 03-Jun-2015 Yenifer Esquivel RN Start : 28-Feb-2015 End : 03-Jun-2015 Inactive Start: 02-28-2015 End: 06-03-2015 PROAIR HFA, 108 (90 Base)MCG /ACT (Inhalation Aerosol Solution) 1 (one) Aerosol Soln 2 puffs q6hrs prn for 0 days Quantity: 1 {Inhaler} Refills: 3 Ordered: 03-Jun-2015 Yenifer Esquivel RN Start : 28-Feb-2015 End : 03-Jun-2015 Inactive ALPRAZolam 0.5 mg oral tablet (20 sources) Benzodiazepine Start: 01-27-2016 End: 12-06-2016 Xanax 0.5 MG Oral Tablet 1 (one) Tablet Tablet one hr before flight for 0 days Quantity: 4 {Tablet} Refills: 0 Ordered: 06-Dec-2016 Yenifer Esquivel RN Start : 27-Jan-2016 End : 06-Dec-2016 Inactive Comments: four Comment on above: four amiodarone hydrochloride 200 mg oral tablet (20 sources) Antiarrhythmic Start: 01-21-2023 End: 01-21-2023 take 1 tablet by mouth once daily Amiodarone 200 mg tablet Discontinued 200 mg PO DAILY January 21, 2023 12:00am January 21, 2023 9:50am Start: 01-09-2023 End: 12-25-2022 take 1 tablet by mouth once daily amiodarone (Pacerone) 200 MG tablet Take 1 tablet (200 mg) by mouth daily. Do not start before January 09, 2023. 30 tablet 1 01/09/2023 12/25/2022 Discontinued (Duplicate order) Start: 01-09-2023 End: 12-25-2022 take 1 tablet by mouth once daily amiodarone (Pacerone) 200 MG tablet Take 1 tablet (200 mg) by mouth daily. Do not start before January 09, 2023. 30 tablet 1 01/09/2023 12/25/2022 Discontinued (Duplicate order) Start: 01-06-2023 End: 01-23-2023 take 1 tablet by mouth once daily amiodarone (Pacerone) 200 MG tablet Take 1 tablet (200 mg) by mouth daily. 30 tablet 0 01/06/2023 01/23/2023 Discontinued (Med list cleanup) Start: 12-25-2022 End: 01-24-2023 take 2 tablets by mouth twice daily, then take 1 tablet by mouth once daily amiodarone (Pacerone) 200 MG tablet Take 2 tablets (400 mg) by mouth 2 times daily for 14 days, THEN 1 tablet (200 mg) daily for 16 days. 72 tablet 1 12/25/2022 01/06/2023 Discontinued (Dose adjustment) Start: 12-24-2022 End: 12-25-2022 amiodarone (Pacerone) tablet 400 mg amiodarone (Nexterone) 450 mg in dextrose 5 % 250 mL (1.8 mg/mL) infusion (2 sources) Start: 12-23-2022 End: 12-24-2022 amiodarone (Nexterone) 450 mg in dextrose 5 % 250 mL (1.8 mg/mL) infusion amoxicillin 875 mg / clavulanate 125 mg oral tablet (20 sources) Penicillin-class Antibacterial Start: 10-14-2018 End: 10-28-2018 Amoxicillin-Pot Clavulanate 1 EACH tablet Discontinued 1 NMA PO TWICE A DAY October 14, 2018 12:00am October 28, 2018 12:43pm Start: 10-14-2018 End: 10-28-2018 Amoxicillin-Pot Clavulanate Discontinued 1 EACH PO TWICE A DAY October 14, 2018 12:00am October 28, 2018 12:43pm Start: 08-20-2006 End: 09-02-2006 take 1 tablet by mouth twice daily AUGMENTIN, 875-125MG (Oral Tablet) 1 Tablet BID for 10 days Quantity: 20 {Tablet} Refills: 0 Ordered: 20-Aug-2006 MOON QUIROZ CNP Start : 20-Aug-2006 End : 02-Sep-2006 Inactive ascorbic acid 500 mg oral tablet (14 sources) Vitamin C Start: 01-29-2022 End: 04-17-2023 take 1 tablet by mouth once daily Ascorbic Acid (Vitamin C) (Vitamin C) 500 mg Tablet Discontinued 500 mg PO DAILY January 29, 2022 12:00am April 17, 2023 11:08am atorvastatin 40 mg oral tablet (20 sources) HMG-CoA Reductase Inhibitor Start: 01-14-2019 End: 02-13-2019 take 1 tablet by mouth at bedtime Atorvastatin Calcium 40 MG Oral Tablet 1 tab Tablet at bedtime for 30 days Quantity: 30 {Tablet} Refills: 0 Ordered: 14-Jan-2019 Jazlyn Zayas DO, DO, Kathleen Start : 14-Jan-2019 End : 13-Feb-2019 Inactive Start: 10-24-2018 End: 12-11-2018 take 1 tablet by mouth at bedtime Atorvastatin 40 MG tablet Discontinued 40 mg PO AT BEDTIME October 24, 2018 12:00am December 11, 2018 8:22am Start: 06-03-2015 End: 07-03-2015 take 1 tablet by mouth once daily LIPITOR, 80MG (Oral Tablet) 1 (one) Tablet qd for 30 days Quantity: 30 {Tablet} Refills: 0 Ordered: 03-Jun-2015 Jazlyn Zayas DO, DO, Kathleen Start : 03-Jun-2015 End : 03-Jul-2015 Inactive azithromycin 250 mg oral tablet (20 sources) Macrolide Antimicrobial Start: 12-01-2014 End: 06-03-2015 take 1 tablet by mouth once daily ZITHROMAX Z-MADELAINE, 250MG (Oral Tablet) TAD Tablet QD for 0 days Quantity: 1 {Package} Refills: 0 Ordered: 03-Jun-2015 Yenifer Esquivel RN Start : 01-Dec-2014 End : 03-Jun-2015 Inactive bisacodyl 10 mg rectal suppository (2 sources) Stimulant Laxative Start: 12-23-2022 End: 12-25-2022 bisacodyl (Dulcolax) suppository 10 mg calcium ascorbate 500 mg oral tablet (15 sources) Start: 02-25-2020 End: 03-07-2021 take 1 tablet by mouth once daily Ascorbate Calcium (Vitamin C) 500 mg tablet Discontinued 500 mg PO DAILY February 25, 2020 12:00am March 07, 2021 9:04am calcium chloride 0.0014 meq/ml / potassium chloride 0.004 meq/ml / sodium chloride 0.103 meq/ml / sodium lactate 0.028 meq/ml injectable solution (2 sources) Start: 12-21-2022 End: 12-22-2022 lactated Ringer's infusion 100 ml calcium gluconate 20 mg/ml injection (4 sources) Start: 12-20-2022 End: 12-25-2022 calcium gluconate 2000 mg in 100 mL IVPB premix carvedilol 6.25 mg oral tablet (2 sources) alpha-Adrenergic Jonathan, beta-Adrenergic Jonathan Start: 12-19-2022 End: 12-21-2022 carvedilol (Coreg) tablet 6.25 mg ceFAZolin 2000 mg injection (2 sources) Cephalosporin Antibacterial Start: 12-20-2022 End: 12-22-2022 take 2000 mg intravenously every eight hours ceFAZolin in dextrose 4% (Ancef) IVPB 2,000 mg chlorhexidine gluconate 1.2 mg/ml mouthwash (10 sources) Start: 12-20-2022 End: 12-20-2022 chlorhexidine (Peridex) 0.12 % solution 15 mL Start: 12-19-2022 End: 12-20-2022 chlorhexidine (Hibiclens) 4 % liquid 1 application. Start: 12-19-2022 End: 12-24-2022 chlorhexidine (Peridex) 0.12 % solution 15 mL Start: 12-19-2022 End: 12-20-2022 chlorhexidine (Hibiclens) 4 % liquid 1 application. cholecalciferol 9.52 unt/ml / glucose 357 mg/ml oral gel (2 sources) Vitamin D Start: 12-20-2022 End: 12-25-2022 glucose oral gel 15 g 24 hr clarithromycin 500 mg extended release oral tablet (20 sources) Macrolide Antimicrobial Start: 01-10-2007 End: 09-24-2007 take 2 tablets by mouth once daily BIAXIN XL PAC, 500MG (Oral Tablet Extended Release 24 Hour) 2 (two) Tablet ER 24HR Daily for 0 days Quantity: 2 {Tablet_ER_24HR } Refills: 0 Ordered: 10-Jan-2007 Yenifer Esquivel RN Start : 10-Jan-2007 End : 24-Sep-2007 Inactive Comments: DISPENSE 2 XL PACKS Start: 01-10-2007 End: 09-24-2007 take 2 tablets by mouth once daily BIAXIN XL PAC, 500MG (Oral Tablet Extended Release 24 Hour) 2 (two) Tablet ER 24HR Daily for 0 days Quantity: 2 {Tablet_ER_24HR} Refills: 0 Ordered: 10-Jan-2007 Yenifer Esquivel LPN Start : 10-Jan-2007 End : 24-Sep-2007 Inactive Comments: DISPENSE 2 XL PACKS Comment on above: DISPENSE 2 XL PACKS clopidogrel 75 mg oral tablet (20 sources) P2Y12 Platelet Inhibitor Start: 11-04-2018 End: 10-12-2020 take 1 tablet by mouth once daily Plavix 75 MG Oral Tablet 1 Tablet daily for 0 days Quantity: 90 {Tablet} Refills: 3 Ordered: 12-Oct-2020 Jodi Pierce CMA Start : 04-Nov-2018 End : 12-Oct-2020 Inactive Start: 06-03-2015 End: 07-03-2015 take 1 tablet by mouth once daily PLAVIX, 75MG (Oral Tablet) 1 (one) Tablet qd for 30 days Quantity: 30 {Tablet} Refills: 0 Ordered: 03-Jun-2015 Jazlyn Zayas DO, DO, Kathleen Start : 03-Jun-2015 End : 03-Jul-2015 Inactive coenzyme Q10 (Co Q-10) (1 source) Start: 12-03-2023 End: 01-20-2025 coenzyme Q10 (Co Q-10) Discontinued 1 NMA PO TWICE A DAY December 03, 2023 12:00am January 20, 2025 9:21am 100 ml dexmedetomidine 0.004 mg/ml injection (2 sources) Central alpha-2 Adrenergic Agonist Start: 12-20-2022 End: 12-21-2022 dexmedeTOMIDine in NS (Precedex) 400 mcg in 100 mL (4 mcg/mL) infusion diazePAM 5 mg oral tablet (20 sources) Benzodiazepine Start: 12-06-2016 End: 08-26-2017 Valium 5 MG Oral Tablet 1 (one) Tablet one hr prior to travel for 0 days Quantity: 4 {Tablet} Refills: 0 Ordered: 26-Aug-2017 Yenifer Esquivel RN Start : 06-Dec-2016 End : 26-Aug-2017 Inactive Comments: four Comment on above: four docusate sodium 50 mg / sennosides, longterm 8.6 mg oral tablet (2 sources) Start: 12-20-2022 End: 12-25-2022 senna-docusate sodium (Senokot-S) 8.6-50 MG tablet 2 tablet doxycycline monohydrate 100 mg oral capsule (20 sources) Tetracycline-class Drug Start: 12-29-2024 End: 01-20-2025 take 1 capsule by mouth twice daily Doxycycline Monohydrate 100 mg capsule Discontinued 100 mg PO TWICE A DAY December 29, 2024 12:00am January 20, 2025 9:20am Start: 2022 End: 02-16-2022 take 1 tablet by mouth twice daily Doxycycline Hyclate 100 MG Oral Tablet 1 (one) Tablet bid for 0 days Quantity: 20 {Tablet} Refills: 0 Ordered: 16-Feb-2022 Jodi Pierce CMA Start : 31-Jan-2022 End : 16-Feb-2022 Inactive Start: 01-19-2019 End: 01-20-2019 Doxycycline Hyclate 100 MG O ral Capsule 1 (one) Capsule PO x 1 for 1 days Quantity: 1 {Capsule} Refills: 0 Ordered: 19-Jan-2019 Yenifer Forde Start : 19-Jan-2019 End : 20-Jan-2019 Inactive 0.4 ml enoxaparin sodium 100 mg/ml prefilled syringe (2 sources) Low Molecular Weight Heparin Start: 12-18-2022 End: 12-19-2022 enoxaparin (Lovenox) syringe 40 mg ezetimibe 10 mg oral tablet (3 sources) Dietary Cholesterol Absorption Inhibitor Start: 08-25-2024 End: 01-20-2025 take 1 tablet by mouth once daily Ezetimibe (Zetia) 10 mg tablet Discontinued 10 mg PO daily August 25, 2024 1:00am January 20, 2025 9:20am famotidine 20 mg oral tablet (2 sources) Histamine-2 Receptor Antagonist Start: 12-18-2022 End: 12-21-2022 famotidine (Pepcid) tablet 20 mg 4 ml furosemide 10 mg/ml injection (2 sources) Loop Diuretic Start: 12-22-2022 End: 12-25-2022 furosemide (Lasix) injection 20 mg glucagon (rdna) 1 mg injection (2 sources) Antihypoglycemic Agent Start: 12-20-2022 End: 12-25-2022 glucagon (human recombinant) injection 1 mg 150 ml glucose 50 mg/ml injection (4 sources) Start: 12-20-2022 End: 12-25-2022 dextrose 50 % solution 12.5 g Start: 12-20-2022 End: 12-25-2022 dextrose 5 % infusion 0.5 ml heparin sodium, porcine 08680 unt/ml prefilled syringe (2 sources) Unfractionated Heparin, Anti-coagulant Start: 12-21-2022 End: 12-25-2022 heparin injection 5,000 Units hydroCHLOROthiazide 50 mg oral tablet (14 sources) Thiazide Diuretic take 2 tablets by mouth twice daily hydroCHLOROthiazide 50 MG Oral Tablet 2 tabs bid (50 MG) Inactive 1 ml HYDROmorphone hydrochloride 1 mg/ml cartridge (4 sources) Opioid Agonist Start: 12-20-2022 End: 12-20-2022 HYDROmorphone (Dilaudid) injection 1 mg Start: 12-20-2022 End: 12-20-2022 HYDROmorphone (Dilaudid) 1 M G/ML injection - Pyxis ADS Override Pull hydroxychloroquine sulfate 200 mg oral tablet (14 sources) Antimalarial, Antirheumatic Agent take 1 mg by mouth twice daily Plaquenil 200 MG Oral Tablet bid (200 MG) Inactive ibuprofen 200 mg oral tablet (20 sources) Nonsteroidal Anti-inflammatory Drug IBUPROFEN, 200MG (Oral Tablet) 1 to 2 tabs prn (200 MG) Inactive 100 ml insulin, regular, human 1 unt/ml injection (2 sources) Insulin Start: 023 End: insulin regular 100 units in 100 mL NS (Myxredlin) infusion (premix) latanoprost 0.05 mg/ml ophthalmic solution (20 sources) Prostaglandin Analog Start: 022 End: Latanoprost 0.005 % drops Discontinued 1 NMA EACH EYE TWICE A DAY August 17, 2021 1:00am December 04, 2023 5:40pm Start: 08-17-2021 Latanoprost Ac tive 1 DRP EACH EYE DAILY August 17, 2021 1:00am Start: 04-28-2019 End: 01-12-2020 Latanoprost 1 DROP bottle Di scontinued 1 NMA EACH EYE AT BEDTIME April 28, 2019 12:00am January 12, 2020 1:34pm Start: 12-09-2013 End: 01-08-2014 LATANOPROST, 0.005% (Ophthal maykel Solution) 1 (one) Solution nightly for 30 days Quantity: 30 {Bottle} Refills: 0 Ordered: 18-Feb-2014 Jazlyn Zayas DO, DO, Kathleen Start : 09-Dec-2013 End : 08-Jan-2014 Inactive levoFLOXacin 500 mg oral tablet (20 sources) Quinolone Antimicrobial Start: 09-24-2007 End: 03-27-2011 take 1 tablet by mouth once daily LEVAQUIN, 500MG (Oral Tablet) 1 Tablet Daily for 0 days Quantity: 14 {Tablet} Refills: 0 Ordered: 27-Mar-2011 Yenifer Esquivel RN Start : 24-Sep-2007 End : 27-Mar-2011 Inactive lidocaine 0.04 mg/mg medicated patch (2 sources) Antiarrhythmic, Amide Local Anesthetic Start: 12-22-2022 End: 12-25-2022 Lidocaine 4 % patch 1 patch lisinopril 10 mg oral tablet (20 sources) Angiotensin Converting Enzyme Inhibitor Start: 08-25-2024 End: 01-20-2025 take 1 tablet by mouth once daily Lisinopril 10 mg tablet Discontinued 10 mg PO daily August 25, 2024 1:00am January 20, 2025 9:20am Start: 04-10-2024 End: 07-20-2024 take 1 tablet by mouth once daily Lisinopril 10 mg tablet Discontinued 10 mg PO daily April 10, 2024 12:00am July 20, 2024 4:30pm Start: 01-29-2022 End: 03-13-2022 take 1 tablet by mouth twice daily Lisinopril 10 mg tablet Discontinued 10 mg PO TWICE A DAY January 29, 2022 12:00am March 13, 2022 9:46am Start: 12-09-2013 End: 01-27-2016 take 0.5 tablet by mouth once daily LISINOPRIL, 40MG (Oral Tablet) 1/2 Tablet Tablet qd for 0 days Quantity: 30 {Tablet} Refills: 0 Ordered: 27-Jan-2016 Yenifer Esquivel RN Start : 09-Dec-2013 End : 27-Jan-2016 Inactive LORazepam 0.5 mg oral tablet (20 sources) Benzodiazepine Start: 12-06-2016 End: 12-06-2016 take 1 tablet by mouth every hour LORazepam 0.5 MG Oral Tablet 1 (one) Tablet Tablet one hr prior to flights for 0 days Quantity: 10 {Tablet} Refills: 0 Ordered: 06-Dec-2016 Jazlyn Zayas DO, DO, Kathleen Start : 06-Dec-2016 End : 06-Dec-2016 Discontinued Comments: ten Comment on above: ten magnesium hydroxide 80 mg/ml oral suspension (2 sources) Start: 12-23-2022 End: 12-25-2022 magnesium hydroxide (Milk of Magnesia) 400 MG/5ML suspension 30 mL magnesium sulfate IVPB premix 2,000 mg (2 sources) Start: 12-20-2022 End: 12-25-2022 magnesium sulfate IVPB premix 2,000 mg melatonin 3 mg oral tablet (2 sources) Start: 12-18-2022 End: 12-21-2022 melatonin tablet 3 mg methocarbamol 500 mg oral tablet (4 sources) Muscle Relaxant Start: 12-21-2022 End: 12-21-2022 take 1 tablet by mouth every eight hours as needed methocarbamol (Robaxin) tablet 1,000 mg metoprolol tartrate 25 mg oral tablet (20 sources) beta-Adrenergic Jonathan Start: 08-25-2024 End: 01-20-2025 take 1 tablet by mouth twice daily Metoprolol Tartrate 25 mg tablet Discontinued 25 mg PO TWICE A DAY August 25, 2024 1:00am January 20, 2025 9:20am Start: 12-23-2022 End: 07-20-2024 take 1 tablet by mouth twice daily Metoprolol Tartrate 25 mg tablet Discontinued 25 mg PO TWICE A DAY 180 May 06, 2023 3:52pm July 20, 2024 4:30pm Start: 12-22-2022 End: 12-23-2022 metoprolol tartrate (Lopress or) tablet 12.5 mg Start: 12-09-2013 End: 01-08-2014 take 0.5 tablet by mouth twice daily METOPROLOL TARTRATE, 25MG (Oral Tablet) 1/2 Tablet bid for 30 days Quantity: 30 {Tablet} Refills: 0 Ordered: 18-Feb-2014 Jose Manuel Jazlyn Jose Manuel GALLARDO Jazlyn Start : 09-Dec-2013 End : 08-Jan-2014 Inactive mupirocin 0.02 mg/mg topical ointment (6 sources) RNA Synthetase Inhibitor Antibacterial Start: 12-20-2022 End: 12-23-2022 mupirocin (Bactroban) 2 % ointment Start: 12-20-2022 End: 12-20-2022 mupirocin (Bactroban) 2 % oi ntment 1 application. Start: 12-20-2022 End: 12-20-2022 mupirocin (Bactroban) 2 % oi ntment 1 application. Start: 12-19-2022 End: 12-19-2022 mupirocin (Bactroban) 2 % oi ntment 1 application. Start: 12-19-2022 End: 12-19-2022 mupirocin (Bactroban) 2 % oi ntment 1 application. 100 ml sodium nitroprusside 0.5 mg/ml injection (2 sources) Start: 12-20-2022 End: 12-21-2022 nitroprusside in sodium chloride 0.9 % (500 mcg/mL) (Nipride) infusion nystatin [id number] unt/ml oral suspension (14 sources) Polyene Antifungal Start: 03-22-2023 take 5 mL by mouth five times daily nystatin 100,000 unit/mL oral suspension 5 Milliliter 5 times a day for 10 days Quantity: 250 {Milliliter} Refills: 2 Ordered: 22-Mar-2023 Lisette Davila CNP Start : 22-Mar-2023 Active Comments: swish around in mouth and retain for as long as possible before swallowingQs 10 day supply Start: 12-28-2022 take 5 mL by mouth f tri times daily nystatin 100,000 unit/mL oral suspension 5 Milliliter 5 times a day for 10 days Quantity: 250 {Milliliter} Refills: 0 Ordered: 28-Dec-2022 Chadwick Sethi LPN Start : 28-Dec-2022 Active Comments: swish around in mouth and retain for as long as possible before swallowingQs 10 day supply Start: 08-29-2021 End: 09-12-2021 take 4-6 mL by mouth four times daily Nystatin [id number] UNIT/ML Mouth/Throat Suspension 4-6 Milliliter qid for 14 days Quantity: 360 {Milliliter} Refills: 0 Ordered: 29-Aug-2021 Snehal Leon Start : 29-Aug-2021 End : 12-Sep-2021 Inactive Comments: swish around in mouth and retain for as long as possible before swallowing Comment on above: swish around in mout h and retain for as long as possible before swallowing swish around in mout h and retain for as long as possible before swallowingQs 10 day supply ofloxacin 3 mg/ml ophthalmic solution (20 sources) Quinolone Antimicrobial Start: 7 End: 7 OCUFLOX, 0.3% (Ophthalmic Solution) 2 (two) Drop(s) q2-4 hours for 0 days Quantity: 1 {Solution} Refills: 0 Ordered: 20-Aug-2006 Shanthi Hong Start : 20-Aug-2006 End : 10-Jan-2007 Discontinued Comments: q2-4 hours x2 days then qid x5 days. Comment on above: q2-4 hours x2 days t hen qid x5 days. Killbuck-3 Fatty Acids (Fish Oil Concentrate) 1,000 mg capsule (15 sources) Start: 0 End: take 1 capsule by mouth once daily Killbuck-3 Fatty Acids (Fish Oil Concentrate) 1,000 mg capsule Discontinued 1000 MG PO DAILY January 12, 2020 1:34pm March 07, 2021 9:04am Start: 01-12-2020 End: 03-07-2021 take 1 capsule by mouth once daily Killbuck-3 Fatty Acids (Fish Oil Concentrate) 1,000 mg capsule Discontinued 1000 mg PO DAILY January 12, 2020 12:00am March 07, 2021 9:04am Start: 01-12-2020 End: 03-07-2021 take 1 capsule by mouth once daily [place]-3 Fatty Acids (Fish Oil Concentrate) 1,000 mg capsule Discontinued 1000 MG PO DAILY January 11, 2020 11:00pm March 07, 2021 8:04am Start: 01-12-2020 End: 03-07-2021 take 1 capsule by mouth once daily Killbuck-3 Fatty Acids (Fish Oil Concentrate) 1,000 mg capsule Discontinued 1000 MG PO DAILY January 12, 2020 12:00am March 07, 2021 9:04am omeprazole 20 mg delayed release oral capsule (2 sources) Proton Pump Inhibitor Start: 03-22-2023 take 1 capsule by mouth once daily omeprazole 20 mg oral capsule,delayed release (enteric coated) 1 Capsule daily for 30 days Quantity: 30 {Capsule} Refills: 6 Ordered: 22-Mar-2023 Giovanni HOLT Lisette Start : 22-Mar-2023 Active ondansetron 4 mg oral tablet (16 sources) Serotonin-3 Receptor Antagonist Start: 01-21-2023 End: 04-17-2023 take 1 tablet by mouth every eight hours Ondansetron Hcl 4 mg tablet Discontinued 4 mg PO Q8H January 21, 2023 12:00am April 17, 2023 11:09am Start: 01-02-2023 End: 01-05-2023 take 1 tablet by mouth three times daily as needed for nausea ondansetron (Zofran) 4 MG tablet Indications: Nausea and Vomiting Take 1 tablet (4 mg) by mouth 3 times daily as needed for nausea or vomiting for up to 3 days. 9 tablet 0 01/02/2023 01/05/2023 Active Start: 12-30-2022 End: 01-02-2023 take 1 tablet by mouth every twenty-four hours as needed for nausea and vomiting ondansetron (Zofran) 4 MG tablet Take 1 tablet (4 mg) by mouth Daily as needed for nausea or vomiting. 20 tablet 0 12/30/2022 01/02/2023 Discontinued Start: 01-29-2022 take 4 mg by mouth e very eight hours Ondansetron Active 4 MG PO Q8H January 29, 2022 12:00am ondansetron ODT (Zofran-ODT) disintegrating tablet 4 mg (2 sources) Start: 12-20-2022 End: 12-25-2022 take 1 tablet by mouth every eight hours as needed for nausea and vomiting ondansetron ODT (Zofran-ODT) disintegrating tablet 4 mg oxyCODONE hydrochloride 5 mg oral tablet (4 sources) Opioid Agonist Start: 12-06-2023 End: 07-20-2024 take 1-2 tablets by mouth every four hours as needed for pain Oxycodone 5 mg Tablet Discontinued 10 mg PO EVERY 4 HOURS NEEDED as needed for Pain Score 4-10 10 December 06, 2023 July 20, 2024 4:30pm Take 1-2 tabs as needed Start: 12-06-2023 take 1-2 tablets by mouth every four hours as needed Oxycodone Active 10 MG PO EVERY 4 HOURS NEEDED 10 3 December 06, 2023 Take 1-2 tabs as needed pantoprazole 40 mg delayed release oral tablet (20 sources) Proton Pump Inhibitor Start: 12-22-2022 End: 04-17-2023 take 1 tablet by mouth once daily Pantoprazole 40 mg tablet,delayed release (DR/EC) Discontinued 40 mg PO DAILY January 21, 2023 12:00am April 17, 2023 11:10am Start: 12-21-2022 End: 12-21-2022 pantoprazole (ProtoNix) inje ction 40 mg Start: 08-29-2021 End: 09-12-2021 take 1 tablet by mouth once daily Protonix 20 MG Oral Tablet Delayed Release 1 (one) Tablet daily for 14 days Quantity: 30 {Tablet} Refills: 0 Ordered: 29-Aug-2021 Snehal Leon Start : 29-Aug-2021 End : 12-Sep-2021 Inactive Start: 10-26-2018 End: 12-11-2018 take 1 tablet by mouth once daily Pantoprazole 40 MG tablet Discontinued 40 mg PO DAILY October 26, 2018 12:00am December 11, 2018 8:22am perflutren lipid microspheres (Definity) injection 1.65 mg (2 sources) Start: 12-18-2022 End: 12-19-2022 perflutren lipid microspheres (Definity) injection 1.65 mg polyethylene glycol 3350 [id number] mg powder for oral solution (2 sources) Osmotic Laxative Start: 12-20-2022 End: 12-25-2022 polyethylene glycol (PEG) 3350 (Miralax) packet 17 g microencapsulated potassium chloride 10 meq extended release oral tablet (4 sources) Start: 12-21-2022 End: 12-25-2022 potassium chloride CR (Klor-Con M10) ER tablet 20 mEq Start: 12-20-2022 End: 12-25-2022 potassium chloride IVPB 20 m Eq potassium phosphate 155 mg / sodium phosphate, dibasic 852 mg / sodium phosphate, monobasic 130 mg oral tablet (20 sources) Start: 12-09-2013 End: 07-08-2014 take 1 tablet by mouth once daily PHOSPHA 250 NEUTRAL, [id number] (Oral Tablet) 1 (one) Tablet Tablet qd for 0 days Quantity: 30 {Tablet} Refills: 0 Ordered: 08-Jul-2014 Yenifer Esquivel RN Start : 09-Dec-2013 End : 08-Jul-2014 Inactive predniSONE 20 mg oral tablet (20 sources) Start: 10-21-2013 End: 11-03-2013 take 1 tablet by mouth once daily PREDNISONE, 20MG (Oral Tablet) 1 Tablet daily for 0 days Quantity: 5 {Tablet} Refills: 0 Ordered: 03-Nov-2013 Yenifer Esquivel RN Start : 21-Oct-2013 End : 03-Nov-2013 Inactive 2 ml prochlorperazine 5 mg/ml injection (2 sources) Phenothiazine Start: 12-21-2022 End: 12-25-2022 take 5 mg intravenously every six hours as needed for nausea and vomiting prochlorperazine (Compazine) injection 5 mg RED YEAST RICE AND OMEGA 3 FATTY FISH OIL (20 sources) End: 01-10-2007 RED YEAST RICE AND OMEGA 3 FATTY FISH OIL End : 10-Jan-2007 Discontinued rosuvastatin calcium 40 mg oral tablet (20 sources) HMG-CoA Reductase Inhibitor Start: 12-26-2022 End: 01-23-2024 take 1 tablet by mouth once daily Rosuvastatin 40 mg tablet Discontinued 40 mg PO DAILY October 09, 2023 2:42pm December 03, 2023 5:50pm Start: 12-19-2022 End: 12-25-2022 rosuvastatin (Crestor) table t 40 mg simethicone 125 mg oral capsule (2 sources) Start: 12-21-2022 End: 12-25-2022 take 1 capsule by mouth every six hours as needed simethicone (Mylicon,Gas-X) capsule 125 mg 1000 ml sodium chloride 4.5 mg/ml injection (4 sources) Start: 12-20-2022 End: 12-22-2022 sodium chloride 0.45 % infusion Start: 12-18-2022 End: 12-19-2022 sodium chloride 0.9 % infusi on 5 ml sugammadex 100 mg/ml injection (4 sources) Start: 12-20-2022 End: 12-20-2022 sugammadex (Bridion) injecti on 410 mg Start: 12-20-2022 End: 12-20-2022 sugammadex (Bridion) 500 MG/ 5ML injection - Pyxis ADS Override Pull tiZANidine 2 mg oral tablet (2 sources) Central alpha-2 Adrenergic Agonist Start: 12-21-2022 End: 12-25-2022 take 1 tablet by mouth every six hours as needed tiZANidine (Zanaflex) tablet 2 mg Vitamin D3 (7 sources) Vitamin D3 Activ e Zinc (20 sources) Start: 01-29-2022 End: 04-17-2023 take 1 tablet by mouth once daily Zinc 10 mg Tablet Discontinued 10 mg PO DAILY January 29, 2022 12:00am April 17, 2023 11:10am Start: 01-29-2022 End: 04-17-2023 take 10 mg by mouth once daily Zinc Discontinued 10 MG PO DAILY January 29, 2022 12:00am April 17, 2023 11:10am Start: 01-29-2022 End: 04-17-2023 take 10 mg by mouth once daily Zinc Discontinued 10 MG PO DAILY January 28, 2022 11:00pm April 17, 2023 10:10am Start: 01-29-2022 take 10 mg by mouth once daily Zinc Active 10 MG PO DAILY January 28, 2022 11:00pm Start: 01-29-2022 take 10 mg by mouth once daily Zinc Active 10 MG PO DAILY January 29, 2022 12:00am zinc Inactive NEGATED: Highlighted row has not occurred!drug or medication (17 sources) No Known Histori breezy Medications NEGATED: Highlighted row has not occurred!No Known Historical Medications (9 sources) No Known Histori breezy Medications Problems Active Problems Problem Classification Problem Date Documented Da te Episodic/Chronic Abdominal pain (20 sources) Generalized abdominal pain; Translations: [Abdominal pain, diffuse] Resolved: 1 10-10-2018 Episodic Acute and unspecified renal failure (20 sources) Renal failure syndrome; Translations: [Unspecified kidney failure] Resolved: 4 09-08-2015 Chronic Acute and unspecified renal failure (20 sources) Acute renal failure syndrome; Translations: [Acute renal failure] 10-20-2020 Episodic Comment on above: acute on chronic-- p re-renal will ashutosh first Allergic reactions (20 sources) Urticaria; Translations: [Allergic contact dermatitis due to adhesive] 11-04-2018 Episodic Comment on above: protonix or plavix - - will hold protonix first to see if causes Anxiety disorders (20 sources) Claustrophobia; Translations: [Anxiety] 10-09-2018 Chronic Cancer of prostate (20 sources) Primary malignant neoplasm of prostate; Translations: [Malignant tumor of prostate] 10-09-2018 Chronic Comment on above: s/p radiactive pelle ts Cardiac dysrhythmias (1 source) Unspecified atrial fibrillation; Translations: [Unspecified atrial fibrillation] Onset: 5 Chronic Chronic kidney disease (20 sources) Chronic kidney disease, unspecified; Translations: [Chronic renal insufficiency] 10-09-2018 Chronic Comment on above: cta abd pelvis --kid sandra look okmicoralbumin neg 10mo agono htn no dm - no meds limited use nsaids-- does have cad cta abd pelvis --kid sandra look okmicoralbumin neg 10mo agono htn no dm - no meds limited use nsaids-- does have cad s/p stent- seeing Ammy to [facility] sincee referral now pt having persistent hyperkalemia-- GFR declining Chronic obstructive pulmonary disease and bronchiectasis (20 sources) Bronchitis; Translations: [Bronchitis] Resolved: 4 05-03-2015 Episodic Chronic obstructive pulmonary disease and bronchiectasis (20 sources) Chronic obstructive pulmonary disease and bronchiectasis Complications of surgical procedures or medical care (14 sources) Atrial fibrillation; Translations: [Other postprocedural complications and disorders of the circulatory system, not elsewhere classified] Onset: 5 01-21-2023 Episodic Coronary atherosclerosis and other heart disease (20 sources) Coronary arteriosclerosis; Translations: [Coronary artery disease] Onset: 3 10-09-2018 Chronic Comment on above: recent stress test 2 021 ok recent stress test 2 021 oks/p one stent Coronary atherosclerosis and other heart disease (5 sources) Presence of coronary angioplasty implant and graft; Translations: [Percutaneous transluminal coronary angioplasty status] Onset: 3 Episodic Disorders of lipid metabolism (20 sources) Hypercholesterolemia; Translations: [Hypercholesterolemia] Onset: 5 10-09-2018 Chronic Comment on above: pt refused statin or other meds will ashutosh Diverticulosis and diverticulitis (20 sources) Diverticulitis of large intestine with perforation and abscess without bleeding; Translations: [Perforation of sigmoid colon due to diverticulitis] 11-04-2018 Chronic E Codes: Fall (7 sources) Fall; Translations: [Unspecified fall, initial encounter] 12-03-2023 Episodic Esophageal disorders (4 sources) Gastroesophageal reflux disease; Translations: [GERD (gastroesophageal reflux disease)] 03-22-2023 Chronic Essential hypertension (6 sources) Essential hypertension; Translations: [Essential (primary) hypertension] Onset: 5 04-10-2024 Chronic Fluid and electrolyte disorders (20 sources) Hyperkalemia; Translations: [Hyperkalemia] Resolved: 1 10-09-2018 Episodic Comment on above: no nsaid use, no sup plements no med rx - interestign starting to have GFR decline ( evne though 82 y/o) - he doesnt have dm or htn-- 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 not worried about this now. if having more frequency can talk to Dr. zayas about this and chronic treatment. SUSPECT Headache; including migraine (20 sources) Headache; Translations: [Tension-type headache] Resolved: 9 06-14-2015 Episodic Comment on above: SUSPECT IMPROVING AND RESOLV ING AFTER BROKE OUT IN SWEAT LAST NIGHT?? VIRAL PT ALSO THINKS ALOT OF STRESS AND THIS IS EXPRESSION OF IT Headache; including migraine (20 sources) Headache; including migraine Immunizations and screening for infectious disease (20 sources) Patient encounter status; Translations: [Encounter for immunization] 05-04-2021 Episodic Inflammation; infection of eye (except that caused by tuberculosis or sexually transmitteddisease) (20 sources) Acute conjunctivitis; Translations: [Serous conjunctivitis] Resolved: 9 06-15-2015 Episodic Malaise and fatigue (3 sources) Fatigue; Translations: [Other fatigue] Onset: 5 01-20-2025 Episodic Mycoses (8 sources) Candidiasis of mouth; Translations: [Thrush] 12-28-2022 Episodic Neoplasms of unspecified nature or uncertain behavior (20 sources) Neoplasm of uncertain behavior of skin; Translations: [Neoplasm of uncertain behavior of skin] Resolved: 5 06-13-2015 Episodic Comment on above: forehead - 3 lesions Nonspecific chest pain (20 sources) Chest pain; Translations: [Chest pain] Resolved: 2 11-03-2013 Episodic Comment on above: pt here for walk in and worry ore about htis radiate from back into chest. not hink aortic dissection because resolve. will do ekg and check heart. ? esophageal reflex. Nutritional deficiencies (20 sources) Vitamin D deficiency, unspecified; Translations: [Vitamin D deficiency] 10-09-2018 Chronic Comment on above: resume and recommend ed 4K daily Osteoarthritis (20 sources) Osteoarthritis; Translations: [Osteoarthritis] 10-09-2018 Chronic Comment on above: stable Other circulatory disease (20 sources) Elevated blood-pressure reading without diagnosis of hypertension; Translations: [Elevated blood-pressure reading without diagnosis of hypertension] Resolved: 8 08-26-2017 Episodic Comment on above: BORDERLINE-- NO HIST ORY FOLLOW Other circulatory disease (20 sources) Elevated blood pressure; Translations: [Elevated blood pressure reading] Resolved: 2 2022 Episodic Other circulatory disease (2 sources) Elevated blood-pressure reading, without diagnosis of hypertension; Translations: [Elevated blood pressure reading without diagnosis of hypertension] 12-18-2022 Episodic Other connective tissue disease (20 sources) Fibromyalgia; Translations: [Fibromyalgia] 10-09-2018 Episodic Comment on above: stable Other connective tissue disease (20 sources) Primary fibromyalgia syndrome Episodic Other endocrine disorders (20 sources) Endocrine disorder, unspecified; Translations: [Hypotestosteronism] 09-05-2017 Episodic Other gastrointestinal disorders (7 sources) Altered bowel function; Translations: [Change in bowel movement] Resolved: 9 10-09-2018 Episodic Other gastrointestinal disorders (20 sources) Alteration in bowel elimination; Translations: [Change in bowel movement] Resolved: 9 11-04-2018 Episodic Other infections; including parasitic (20 sources) Infection of tick bite; Translations: [Tick bite, infected] Resolved: 1 01-19-2019 Episodic Other infections; including parasitic (20 sources) Infection by [place]; Translations: [Tapeworm infection (teniasis)] Resolved: 1 02-06-2019 Episodic Other infections; including parasitic (20 sources) Personal history of other infectious and parasitic diseases; Translations: [History of COVID-19] 10-26-2021 Episodic Other infections; including parasitic (4 sources) Erythema chronica migrans; Translations: [Lyme disease, unspecified] 12-29-2024 Episodic Other infections; including parasitic (1 source) Lyme disease, unspecified; Translations: [Lyme disease, unspecified] Onset: 5 Episodic Other inflammatory condition of skin (20 sources) Itching ; Translations: [Itching] Resolved: 1 01-19-2019 Episodic Other inflammatory condition of skin (9 sources) Erythematous condition; Translations: [Redness of skin] 01-19-2019 Episodic Other inflammatory condition of skin (20 sources) Erythema; Translations: [Redness of skin] Resolved: 1 10-20-2020 Episodic Other injuries and conditions due to external causes (5 sources) Closed injury of head; Translations: [Unspecified injury of head, initial encounter] 12-03-2023 Episodic Other injuries and conditions due to external causes (2 sources) Unspecified injury of head, initial encounter; Translations: [Head injury, unspecified] 12-03-2023 Episodic Other lower respiratory disease (20 sources) Cough; Translations: [Cough] Resolved: 5 11-03-2013 Episodic Other male genital disorders (20 sources) Male erectile dysfunction, unspecified; Translations: [Impotence of organic origin] 10-09-2018 Chronic Other nervous system disorders (5 sources) Unable to walk; Translations: [Difficulty in walking, not elsewhere classified] 12-03-2023 Chronic Other nervous system disorders (2 sources) Difficulty in walking, not elsewhere classified; Translations: [Difficulty in walking] 12-03-2023 Chronic Other nutritional; endocrine; and metabolic disorders (20 sources) Hypophosphatemia; 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] Resolved: 6 08-26-2017 Chronic Other nutritional; endocrine; and metabolic disorders (20 sources) Obesity, unspecified; Translations: [Obesity] 10-09-2018 Chronic Other nutritional; endocrine; and metabolic disorders (20 sources) Body mass index 30+ - obesity; Translations: [BMI 30.0-30.9,adult] Resolved: 1 10-09-2018 Chronic Other nutritional; endocrine; and metabolic disorders (20 sources) Weight gain; Translations: [Weight gain] 10-09-2018 Episodic Other screening for suspected conditions (not mental disorders or infectious disease) (20 sources) Hypotestosteronism; Translations: [Testosterone deficiency] 02-06-2019 Chronic Other screening for suspected conditions (not mental disorders or infectious disease) (20 sources) Screening status; Translations: [Encounter for screening for malignant neoplasm of colon (Renamed from Special screening for malignant neoplasms, colon)] 05-04-2021 Episodic Comment on above: 2019 Other upper respiratory disease (20 sources) Allergic rhinitis; Translations: [Allergic rhinitis] Resolved: 8 08-26-2017 Chronic Other upper respiratory disease (20 sources) Disorder of upper respiratory system; Translations: [Upper respiratory disease] Resolved: 1 10-09-2018 Episodic Other upper respiratory disease (7 sources) Pain in throat Episodic Other upper respiratory infections (20 sources) Acute sinusitis; Translations: [Acute sinusitis, unspecified] Resolved: 9 05-03-2015 Episodic Peritonitis and intestinal abscess (20 sources) Abscess of intestine; Translations: [Abscess of sigmoid colon] Resolved: 1 11-04-2018 Episodic Pneumonia (except that caused by tuberculosis or sexually transmitted disease) (20 sources) Bacterial pneumonia; Translations: [Unspecified bacterial pneumonia] Resolved: 9 06-14-2015 Episodic Poisoning by other medications and drugs (20 sources) Adverse reaction to drug; Translations: [Drug reaction, initial encounter] Resolved: 9 11-04-2018 Episodic Residual codes; unclassified (20 sources) Obstructive sleep apnea of adult; Translations: [Obstructive sleep apnea, adult] 10-09-2018 Chronic Comment on above: using cpap pt doesnt tolerate m ask Residual codes; unclassified (20 sources) Obstructive sleep apnea syndrome Chronic Residual codes; unclassified (16 sources) Vaccination required; Translations: [Encounter for immunization] 10-09-2018 Episodic Residual codes; unclassified (20 sources) Non-smoker; Translations: [Nonsmoker] 05-04-2021 Episodic Respiratory failure; insufficiency; arrest (adult) (20 sources) Respiratory failure; insufficiency; arrest (adult) Sprains and strains (7 sources) Strain of neck muscle; Translations: [Strain of muscle, fascia and tendon at neck level, initial encounter] 12-03-2023 Episodic Superficial injury; contusion (18 sources) Tick bite; Translations: [Tick bite of groin, initial encounter] Resolved: 2 2022 Episodic Thyroid disorders (20 sources) Thyroid nodule; Translations: [Thyroid nodule] 2022 Chronic Transient cerebral ischemia (20 sources) Transient cerebral ischemia; Translations: [TIA (transient ischemic attack)] Onset: 9 11-04-2018 Chronic Unclassified (20 sources) Unclassified (20 sources) Non-smoker; Translations: [Nonsmoker] 10-09-2018 Unclassified (20 sources) Chronic renal insufficiency Unclassified (20 sources) Situational anxiety Unclassified (17 sources) RENAL FAILURE, UNSPECIFIED (586.) Unclassified (20 sources) Obstructive sleep apnea, adult Unclassified (20 sources) BMI 30.0-30.9,adult Unclassified (2 sources) Acute renal failure Unclassified (8 sources) Immunity status testing Unclassified (18 sources) BRONCHITIS, NOT SPECIFIED ACUTE OR CHRONIC (490.) Unclassified (7 sources) Migraine with aura and without status migrainosus, not intractable Unclassified (20 sources) History of COVID-19 Unclassified (1 source) Cough, unspecified; Translations: [Cough, unspecified] Onset: 5 Past or Other Problems Problem Classification Problem Date Documented Date Episodic/Chronic Chronic kidney disease (14 sources) Chronic renal insufficiency; Translations: [Chronic kidney disease] 02-06-2019 Other nutritional; endocrine; and metabolic disorders (10 sources) Obese class I; Translations: [Obesity (BMI 30.0-34.9)] 02-06-2019 Pneumonia (except that caused by tuberculosis or sexually transmitted disease) (20 sources) Pneumonia (except that caused by tuberculosis or sexually transmitted disease) Unclassified (20 sources) Testosterone deficiency Unclassified (20 sources) Elevated Blood Pressure without diagnosis of Hypertension (796.2) Unclassified (20 sources) Pre-operative examination, unspecified (V72.84) Unclassified (20 sources) SHINGLES,NEED FOR PROPHYLACTIC VACCINATION AND INOCULATION AGAINST (V05.8) Unclassified (20 sources) Patient encounter status; Translations: [Encounter for Medicare annual wellness exam] Resolved: 12-07-2008 10-09-2018 Comment on above: SEE C/C FOR DR. 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 VINH Taylor Unclassified (20 sources) Abdominal pain, diffuse Unclassified (20 sources) Change in bowel movement Unclassified (20 sources) Weight gain Unclassified (20 sources) Perforation of sigmoid colon due to diverticulitis Unclassified (20 sources) Abscess of sigmoid colon Unclassified (20 sources) Hives Unclassified (20 sources) Drug reaction, initial encounter Unclassified (20 sources) Unspecified Diagnosis 12-11-2018 Unclassified (19 sources) BMI 31.0-31.9,adult Unclassified (19 sources) Tick bite, infected Unclassified (19 sources) Redness of skin Unclassified (17 sources) Tapeworm infection (teniasis) Unclassified (8 sources) Annual Medicare Phyiscal WITHOUT abnormal findings (Renamed from Encounter for general adult medical examination without abnormal findings) Unclassified (8 sources) Screening for prostate cancer Unclassified (18 sources) Headache,Migraine (346.00) Unclassified (15 sources) Age more than 65 years; Translations: [Over 65 years old] 03-12-2022 Unclassified (4 sources) Elevated blood pressure reading Unclassified (4 sources) Tick bite of groin, initial encounter Viral infection (20 sources) Herpes zoster with nervous system complication; Translations: [Herpes zoster with other nervous system complications] Onset: 08-14-2021 10-09-2018 Episodic Comment on above: this may be shingles or herpes no rash so hard to distinguish but want to get eye exam with sx in eye and possible shingles Results Test Name Value Interpretation Reference Range Facility Cardiology Visit Reporton Cardiology Visit Report [facility] [address] [place] [address] OFFICE VISIT Date of Service: 01/20/25 MR#: [id number] Acct: [id number] Name: JESUS ALBERTO GUEVARA Jr. Rep #: [id number] : 1940 Provider: DAO Hein Age/Sex: 84/M [place] [facility] [place] Signed HPI HPI History of Present Illness Details: Jesus Alberto Guevara is an 84-year-old gentleman that presents here today for a hospital follow-up. He has a history of coronary artery disease with angioplasty and stenting to his LAD in 2012. He also has a history of TIA, hyperlipidemia, chronic kidney disease. Patient was admitted to [facility] patient was admitted to [facility] on December 17, 2022 with chest discomfort. He had a mildly elevated troponin. He did undergo a stress test which was felt to be abnormal. He then underwent a diagnostic stress test which demonstrated triple-vessel disease and he was transferred to [facility] for evaluation of bypass surgery. Patient underwent bypass surgery on December 20, 2022 with a left internal mammary artery to the left anterior descending artery, saphenous vein graft to the diagonal vessel, obtuse marginal vessel and to the posterior descending artery. He does see Dr. Lino, he will be going back to using his CPAP. 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 He is fatigued and not sure of this is cardiac or related to his lymes disease. He does not have any chest pain. He does not have any worsening shortness of breath. He did have palpitations with the lymes disease. Intake Vital Signs 08/25/24 09:12 01/20/25 06:59 Height 5 ft 11 in 5 ft 11 in Weight: 233 lb BMI 32.5 BP 136/87 H Blood Pressure Location Lt brachial Position Sitting Respiration 18 Pulse 76 Pulse Source Monitor Pulse Oximetry (%) 94 Intake Visit Reasons: 4 M Claims Adjustor Required: No Is patient in pain?: No Allergies No Known Allergies Allergy (Verified 01/20/25 09:19) Medications ???Medication ???Instructions ???Recorded ???Confirmed ???Type cholecalciferol (vitamin D3) 50 2,000 unit PO DAILY SUPPLEMENT 01/20/25 History mcg (2,000 unit) chewable tablet aspirin 81 mg tablet,delayed 81 mg PO DAILY #90 tabs 01/21/23 0 01/20/25 Rx release (Adult Aspirin Regimen) vitamins A,C,K-jxra-nqnhne 4,296 1 cap PO BID 04/17/23 01/20/25 His tory mcg-226 mg-90 mg capsule (PreserVision AREDS) netarsudil 0.02 %-latanoprost 1 drp ophthalmic (eye) DAILY 12/0201/20/25 History 0.005 % eye drops (Rocklatan) brimonidine 0.2 % eye drops 1 drp LEFT EYE BID 12/04/23 History timolol maleate 0.5 % eye drops 1 drp ophthalmic (eye) BID 4 01/20/25 History Ejection fraction %: 60 Have you fallen in the past year?: No PFSH Medical History Erythema migrans (Lyme disease) Essential hypertension Glaucoma Macular degeneration of both eyes Former smoker History of tapeworm infection COVID-19 (08/14/21) Atherosclerotic heart disease of [place] coronary artery without angina pectoris Hyperlipidemia CKD (chronic kidney disease) stage 3, GFR 30-59 ml/min TIA (transient ischemic attack) (09/2018) Prostate cancer Perforation of sigmoid colon due to diverticulitis Surgical History 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 alcohol intake: current alcohol intake frequency: holidays/special occasions only substance use type: does not use ROS Const Const: Positive for fatigue; Negative for weakness, headache(s) or frequent falls Eyes Eyes: Negative for blurry vision ENT ENT: Negative for headache(s), dizziness or Nosebleed/epistaxis Cardio Chest Pain: No Palpitations: No Edema: None Muscle aches with walking: None Resp Respiratory: Positive for SOB with activity; Negative for SOB at rest or SOB orthopnea SOB lying down GI GI: Negative nausea, vomiting, heartburn, bright, red blood in stools or black,tarry stools : Negative for hematuria Neuro Neuro: Negative for d (more content not included)... Normal [facility] Urgent Care Visit Reporton 0 12-29-2024 Urgent Care Visit Report [facility] [address], [address] [place] [address] OFFICE VISIT Date of Service: 12/29/24 MR#: [id number] Acct: [id number] Name: JESUS ALBERTO GUEVARA Jr. Rep #: [id number] : 1940 Provider: DAO Gill Age/Sex: 84/M Location[place] [facility] [place] Status: Signed Intake Vital Signs 08/25/24 09:12 12/29/24 08:53 Height 5 ft 11 in BP 154/74 H Blood Pressure Location Lt brachial Position Sitting Respiration 16 Pulse 68 Pulse Source NIBP Temp 98.9 F Temp Source Oral Pulse Oximetry (%) 100 Oxygen Delivery Method room air Intake Visit Reasons: TICK BITE/CONCERN FOR INFECTION Chief Complaint: infected tick bite Claims Adjustor Required: No Is patient in pain?: No Allergies No Known Allergies Allergy (Verified 12/29/24 08:54) Have you fallen in the past year?: No Nurse's Note: tick bite to posterior right upper arm x 5 days with redness. pt saw PCP at that time stating there was a bulls eye. given Doxy x2 tabs, pt took as directed, bulls eye is gone but redness/pain continues. no active drainage, or fever. pt concerned about infection. 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 alcohol intake: current alcohol intake frequency: holidays/special occasions only substance use type: does not use HPI HPI Chief Complaint: infected tick bite Details: JESUS ALBERTO GUEVARA, is a 84 M who presents to the office today for initial evaluation at the [facility] for a tick bite to the right upper posterior arm occurring on 12/24/2024 while flyfishing in [place] with his son. He went to local urgent care where he was told it was an adult deer tick that had bitten him (after his daughter have removed the tick and full at home) and gave him a one- time dose of doxycycline. Patient states he appreciated true, bull's-eye presentation with the outer ring having resolved since then though persistent discomfort and swelling is appreciated to the same. Currently without complaints of fever, chills, sweats, lightheadedness/dizziness , nausea/vomiting though mild headache on date of tick bite was appreciated. No complaints of myalgias or joint pain or neck pain. No nupi-rwm-voxuvmr products taken to assist. No other associated symptoms and no alleviating/aggravating factors. ROS Const Constitutional: No other (As above) Exam Const General: cooperative, healthy appearing and no acute distress Orientation: alert and awake [facility] Head: normal to inspection Ears: hearing grossly normal bilaterally and external ears normal Nose: external nose normal and no nasal discharge Eyes General: appearance normal, both eyes and all related structures Chest Chest palpation inspection: normal inspection of the chest Resp Effort Inspection: normal respiratory effort and able to speak in complete sentences Cardio Rate: regular rate Pulses: radial pulses present Skin General: no rashes or lesions noted Other: Except approximately 2 cm diameter erythematous fluctuant tender to palpation lesion with black center to the right upper posterior arm appreciated to palpation. Site was cleansed with Betadine and saline then 23-gauge needle puncture to the center of the site to release pressure with a mild amount of sanguinous discharge expressed, site recleansed then bacitracin ointment and Band-Aid applied thereafter which patient tolerated well. Neuro General: patient alert and patient awake Cognition: normal cognition Speech: speech normal Extrem General: normal to inspection Psych Appearance: grossly normal Mental (more content not included)... Normal [facility] Chest PA and Lateralon 09-25 Chest PA and Lateral [facility] Imaging Services [address] [place] [address] Chest PA and Lateral MR#: [id number] Acct: [id number] Name: JESUS ALBERTO GUEVARA Jr. Rep #: [id number] : 1940 M 84 From: Erwin mcknight MD PCP: Dr. Jazlyn Zayas DO Status: REG CLI Study: Chest PA and Lateral Date of Exam: 09/25/24 Exam# [id number] Ordering Dr: Mau Rodriguez PROCEDURE: CHEST PA AND LATERAL REASON FOR EXAM: One-week history of chest congestion and cough. TECHNIQUE: Frontal and lateral views of the chest. COMPARISON: Comparison is made with prior study dated December 03, 2023. FINDINGS: Hyperinflation. The lungs are clear. The bones are unremarkable. Status post CABG. Unfolding of the descending thoracic aorta. RAD/Chest PA and Lateral IMPRESSION: No acute abnormality is seen. Reading Location: [facility] CC: DAO Dobbs; Dr. Jazlyn Zayas DO Network Operations Specialist: Signed Normal [facility] Urgent Care Visit Reporton 0 09-25-2024 Urgent Care Visit Report [facility] [address], [address] [place] [address] OFFICE VISIT Date of Service: 09/25/24 MR#: [id number] Acct: [id number] Name: JESUS ALBERTO GUEVARA Jr. Rep #: [id number] : 1940 Provider: DAO Dobbs Age/Sex: 84/M Location: [facility] Status: Signed Intake Vital Signs 08/25/24 09:12 09/25/24 11:57 Height 5 ft 11 in Weight: 235 lb BMI 32.8 BP 124/76 H 132/80 H Blood Pressure Location Lt brachial Rt brachial Position Sitting Sitting Respiration 18 16 Pulse 70 69 Pulse Source Monitor NIBP Temp 98.2 F Temp Source Oral Pulse Oximetry (%) 97 98 Oxygen Delivery Method room air Intake Visit Reasons: CONCERN FOR PNEUMONIA Chief Complaint: cough, fatigue, SOB, wheeze Claims Adjustor Required: No Is patient in pain?: No Allergies No Known Allergies Allergy (Verified 09/25/24 11:58) Have you fallen in the past year?: No Nurse's Note: cough, fatigue, SOB, wheeze x 1 week. recent viral illness prior. denies fever, HERANNDEZ, [place], 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 alcohol intake: current alcohol intake frequency: holidays/special occasions only substance use type: does not use HPI HPI Chief Complaint: cough, fatigue, SOB, wheeze Details: JESUS ALBERTO GUEVARA, is a 84 M who presents to the office today for complaint of cough, congestion, fatigue and malaise. Patient states that this started approximately 7 days ago when he had flulike symptoms. He states that most of those symptoms have resolved. He denies hemoptysis or difficulty breathing. No nausea, vomiting or diarrhea. He states being here because his was concerned about pneumonia. No other associated symptoms or alleviating/aggravating factors. ROS Const Constitutional: Positive for other (6 system ROS completed with pertinent findings in the HPI otherwise normal.) Exam Const General: cooperative and well developed HENMT Head: normal to inspection and atraumatic Ears: hearing grossly normal bilaterally Nose: nasal discharge clear Face and sinus: normal facial exam Mouth: oral mucosae normal Throat: abnormal tonsil bilaterally hypertrophy 1+ Resp Effort Inspection: normal respiratory effort and no audible wheezes Auscultation: Bilateral: Clear to Auscultation Cardio Palpation: normal PMI Rate: regular rate Rhythm: regular rhythm Neuro General: patient alert and CN's II-XI intact bilaterally Psych Appearance: grossly normal Mental Status: mental status grossly normal Coding Level of Care Code Off vis,est,level 4 Diagnoses Acute upper respiratory infection J06.9 Assessment and Plan Assessment and Plan (1) Acute upper respiratory infection: Status: Acute Plan: 2 view chest x-ray read and interpreted by myself find no acute cardiopulmonary abnormalities, awaiting radiology interpretation at time of patient discharge. Encouraged to get plenty of rest, drink lots of clear liquids, and use Tylenol or Ibuprofen (unless contraindicated) for fever and comfort. Patient also educated on other symptomatic management techniques. To be seen in 7-10 days if no improvement; sooner if worsening of symptoms. Patient advised of potential red flags and when appropriate to report to the ED. Patient verbalized understanding and agreement with all the above. Orders: Orders Chest PA and Lateral Today R05.9 - Cough, unspecified Clinical Quality Measures Falls Risk Screening/Assistive Devices Have you fallen in the past year?: No 09/25/24 1558 Date Mau Mo (more content not included)... Normal [facility] Bilirubin directOrdered By: Liliana Henry on 08-25-2024 Bilirubin.direct [Mass/Vol] 0.11 mg/dL 0.00-0.30 [facility] Bilirubin, totalOrdered By: Liliana Henry on 08-25-2024 Bilirubin [Mass/Vol] 0.50 mg/dL 0.20-1.00 [facility] Comment on above: For patients on eltr ombopag therapy, use of Dimension [place] TBIL is not recommended. Cardiology Visit Reporton Cardiology Visit Report [facility] [address] [place] [address] OFFICE VISIT Date of Service: 08/25/24 MR#: [id number] Acct: [id number] Name: JESUS ALBERTO GUEVARA Jr. Rep #: [id number] : 1940 Provider: DAO Hein Age/Sex: 84/M Location: [facility] Status: Signed HPI HPI History of Present Illness Details: Jesus Alberto Guevara is an 84-year-old gentleman that presents here today for a hospital follow-up. He has a history of coronary artery disease with angioplasty and stenting to his LAD in 2012. He also has a history of TIA, hyperlipidemia, chronic kidney disease. Patient was admitted to [facility] patient was admitted to [facility] on December 17, 2022 with chest discomfort. He had a mildly elevated troponin. He did undergo a stress test which was felt to be abnormal. He then underwent a diagnostic stress test which demonstrated triple-vessel disease and he was transferred to [facility] for evaluation of bypass surgery. Patient underwent bypass surgery on December 20, 2022 with a left internal mammary artery to the left anterior descending artery, saphenous vein graft to the diagonal vessel, obtuse marginal vessel and to the posterior descending artery. He does see Dr. Lino, he will be going back to using his CPAP. He does not have any chest pain. He does go to the gym 3 days a week. He does not have any worsening shortness of breath. He does not have any lightheadedness, dizziness, palpitations. He does not have any lower extremity edema. He stopped taking his lisinopril and metoprolol. He would like to not restart these. Intake Vital Signs 04/10/24 11:32 07/20/24 15:27 08/25/24 09:12 Height 5 ft 11 in 5 ft 11 in 5 ft 11 in Weight: 199 lb 235 lb BMI 27.7 32.8 BP 144/84 H 124/76 H Blood Pressure Location Lt brachial Lt brachial Position Sitting Sitting Respiration 18 18 Pulse 56 L 70 Pulse Source Monitor Monitor Pulse Oximetry (%) 97 97 Intake Visit Reasons: 3 M FU Claims Adjustor Required: No Is patient in pain?: No Allergies No Known Allergies Allergy (Verified 08/25/24 09:12) Medications ???Medication ???Instructions ???Recorded ???Confirmed ???Type cholecalciferol (vitamin D3) 50 2,000 unit PO DAILY SUPPLEMENT 10/10/18 08/25/24 History mcg (2,000 unit) chewable tablet aspirin 81 mg tablet,delayed 81 mg PO DAILY #90 tabs 01/21/23 08/25/24 Rx release (Adult Aspirin Regimen) vitamins A,C,G-tqny-ptkuzg 4,296 1 cap PO BID 04/17/23 08/25/24 History mcg-226 mg-90 mg capsule (PreserVision AREDS) coenzyme Q10 1 cap PO BID 12/03/23 08/25/24 History netarsudil 0.02 %-latanoprost 1 drp ophthalmic (eye) DAILY 12/03/23 08/25/24 History 0.005 % eye drops (Rocklatan) brimonidine 0.2 % eye drops 1 drp LEFT EYE BID 12/04/23 08/25/24 History timolol maleate 0.5 % eye drops 1 drp ophthalmic (eye) BID 12/04/23 08/25/24 History lisinopril 10 mg tablet 10 mg PO QDAY 08/25/24 08/25/24 History metoprolol tartrate 25 mg tablet 25 mg PO BID 08/25/24 08/25/24 History Have you fallen in the past year?: No PFSH Medical History Essential hypertension Glaucoma Macular degeneration of both eyes Former smoker History of tapeworm infection COVID-19 (08/14/21) Atherosclerotic heart disease of [place] coronary artery without angina pectoris Hyperlipidemia CKD (chronic kidney disease) stage 3, GFR 30-59 ml/min TIA (transient ischemic attack) (09/2018) Prostate cancer Perforation of sigmoid colon due to diverticulitis Surgical History 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 alcohol intake: current alcohol intake frequency: holidays/special occasions only substance use type: does not use ROS Const Const: Negative for fatigue, weakness, body ache, headache(s), excessive sweating, weight loss or increased appetite Eyes Eyes: Negative for change in vision ENT ENT: Negative for headache(s), dizziness, hearing loss, Nosebleed/epistaxis or balance problems Cardio Chest Pain: No (more content not included)... Normal [facility] High density lipoprotein (HD L) measurementOrdered By: Liliana Henry on 08-25-2024 Cholesterol in HDL [Mass/Vol] 37 mg/dL Low >40 [facility] Comment on above: The drugs N-Acetylcy steine and Metamizole may falsely depress this assay. Reference Range HDL <40 mg/dL Low HDL Cholesterol HDL >or= 60 mg/dL High HDL Cholesterol Laboratory - Chemistry and C hemistry - challengeOrdered By: Liliana Henry on 08-25-2024 AST [Catalytic activity/Vol] 17 U/L 15-37 [facility] Lipid Profileon 08-25-2024 Cholesterol [Mass/Vol] 279 mg/dL High 200 [facility] Comment on above: Order Comment: Comme nts: okay to do non fasting okay to do non fasting Result Comment: <200 mg/dL Desirable 200-240 mg/dL Borderline >240 mg/dL High Risk Performed By: #### L 500.9270, L500.3400 #### [facility] [place], [address] Cholesterol in HDL [Mass/Vol] 37 mg/dL Low [facility] Comment on above: Order Comment: Comme nts: okay to do non fasting okay to do non fasting Result Comment: The drugs N-Acetylcysteine and Metamizole may falsely depress this assay. Reference Range HDL <40 mg/dL Low HDL Cholesterol HDL >or= 60 mg/dL High HDL Cholesterol Performed By: #### L 500.4100, L500.3400 #### [facility] [address] [facility] [address] LDL TNP Normal 0-130 [facility] Comment on above: Order Comment: Comme nts: okay to do non fasting okay to do non fasting Performed By: #### L 500.4100, L500.3400 #### [facility] [address] [facility] [address] Triglyceride [Mass/Vol] 418 mg/dL High [facility] Comment on above: Order Comment: Comme nts: okay to do non fasting okay to do non fasting Result Comment: The drugs N-Acetylcysteine and Metamizole may falsely depress this assay. TRIGLYCERIDE IS GREATER THAN 400 mg/dL. LDL RESULT IS INVALID AND WILL NOT BE REPORTED. Serum Triglycerides Reference Interval Normal <150 mg/dL Borderline high 150 - 199 mg/dL High 200 - 499 mg/dL Very High > or = 500 mg/dL Performed By: #### L 500.4100, L500.3400 #### [facility] [address] [facility] [address] VLDL TNP Normal 5-40 [facility] Comment on above: Order Comment: Comme nts: okay to do non fasting okay to do non fasting Performed By: #### L 500.4100, L500.3400 #### [facility] [address] [place], [address] Liver Profileon 08-25-2024 Albumin [Mass/Vol] 3.3 g/dL Normal 3.2-5.0 [facility] Comment on above: Order Comment: Comme nts: okay to do non fasting okay to do non fasting Performed By: #### L 500.4100, L500.3400 #### [facility] [address] [place], [address] ALK P 97 U/L Normal 45-117 [facility] Comment on above: Order Comment: Comme nts: okay to do non fasting okay to do non fasting Performed By: #### L 500.4100, L500.3400 #### [facility] [address] [place], [address] ALT [Catalytic activity/Vol] 27 U/L Normal 16-61 [facility] Comment on above: Order Comment: Comme nts: okay to do non fasting okay to do non fasting Performed By: #### L 500.4100, L500.3400 #### [facility] [address] [place], [address] AST [Catalytic activity/Vol] 17 U/L Normal 15-37 [facility] Comment on above: Order Comment: Comme nts: okay to do non fasting okay to do non fasting Performed By: #### L 500.4100, L500.3400 #### [facility] [address] [place], [address] Bilirubin [Mass/Vol] 0.50 mg/dL Normal 0.20-1.00 [facility] Comment on above: Order Comment: Comme nts: okay to do non fasting okay to do non fasting Result Comment: For patients on eltrombopag therapy, use of Dimension [place] TBIL is not recommended. Performed By: #### L 500.4100, L500.3400 #### [facility] [address] [place], [address] Bilirubin.direct [Mass/Vol] 0.11 mg/dL Normal 0.00-0.30 [facility] Comment on above: Order Comment: Comme nts: okay to do non fasting okay to do non fasting Performed By: #### L 500.4100, L500.3400 #### [facility] [address] [place], [address] Globulin (S) [Mass/Vol] 3.7 g/dL Normal 2.2-4.2 [facility] Comment on above: Order Comment: Comme nts: okay to do non fasting okay to do non fasting Performed By: #### L 500.4100, L500.3400 #### [facility] [address] [place], [address] T PROT 7.0 g/dL Normal 6.4-8.2 [facility] Comment on above: Order Comment: Comme nts: okay to do non fasting okay to do non fasting Performed By: #### L 500.4100, L500.3400 #### [facility] [address] [place], [address] Low density lipoprotein (LDL ) cholesterol measurementOrdered By: Liliana Henry on 08-25-2024 LDL Cholesterol TNP [facility] Comment on above: Test not performed Serum globulin measurementOr dered By: Liliana Henry on 08-25-2024 Globulin (S) [Mass/Vol] 3.7 g/dL 2.2-4.2 [facility] Serum or plasma alanine dc otransferase (ALT) measurementOrdered By: Liliana Henry on 08-25-2024 ALT [Catalytic activity/Vol] 27 U/L 16-61 [facility] Serum or plasma albumin aric urement (mass/volume)Ordered By: Liliana Henry on 08-25-2024 Albumin [Mass/Vol] 3.3 g/dL 3.2-5.0 [facility] Serum or plasma alkaline antonio sphatase measurementOrdered By: Liliana Henry on 08-25-2024 ALP [Catalytic activity/Vol] 97 U/L 45-117 [facility] Serum or plasma cholesterol measurement (mass/volume)Ordered By: Liliana Henry on 08-25-2024 Cholesterol [Mass/Vol] 279 mg/dL High <200 [facility] Comment on above: <200 mg/dL Desirable 200-240 mg/dL Borderline >240 mg/dL High Risk Total proteinOrdered By: Maykel Henry on 08-25-2024 Protein [Mass/Vol] 7.0 g/dL 6.4-8.2 [facility] Triglycerides measurementOrd ered By: Liliana Henry on 08-25-2024 Triglyceride [Mass/Vol] 418 mg/dL High <199 [facility] Comment on above: The drugs N-Acetylcy steine and Metamizole may falsely depress this assay. TRIGLYCERIDE IS GREATER THAN 400 mg/dL. LDL RESULT IS INVALID AND WILL NOT BE REPORTED.Serum Triglycerides Reference Interval Normal <150 mg/dL Borderline high 150 - 199 mg/dL High 200 - 499 mg/dL Very High > or = 500 mg/dL Very low density lipoprotein (VLDL) cholesterol measurementOrdered By: Liliana Henry on 08-25-2024 VLDL Cholesterol TNP [facility] Comment on above: Test not performed Laboratory - Microbiology an d Antimicrobial susceptibilityon 07-20-2024 SARS-CoV-2 (COVID-19) RNA RIVKA+probe Ql (Unsp spec) Not detected [facility] Visit Reporton 1 09-20-2023 Urgent Care Visit Report [facility] [address], [address] [place] [address] OFFICE VISIT Date of Service: 07/20/24 MR#: [id number] Acct: [id number] Name: JESUS ALBERTO GUEVARA Jr. Rep #: [id number] : 1940 Provider: DAO Gill Age/Sex: 84/M Location: [facility] Status: Signed Intake Vital Signs 04/10/24 11:32 07/20/24 15:27 Height 5 ft 11 in 5 ft 11 in Weight: 199 lb 241 lb BMI 27.7 33.6 BP 144/84 H 122/82 H Blood Pressure Location Lt brachial Position Sitting Sitting Respiration 18 Pulse 56 L 106 H Pulse Source Monitor Temp 97.9 F Temp Source Oral Pulse Oximetry (%) 97 95 Oxygen Delivery Method room air Intake Visit Reasons: SINUS COMPLAINT/ST/COUGH Accompanied by: Self Allergies No Known Allergies Allergy (Verified 07/20/24 15:31) Medications ???Medication ???Instructions ???Recorded ???Confirmed ???Type cholecalciferol (vitamin D3) 50 2,000 unit PO DAILY SUPPLEMENT 10/10/18 07/20/24 History mcg (2,000 unit) chewable tablet aspirin 81 mg tablet,delayed 81 mg PO DAILY #90 tabs 01/21/23 07/20/24 Rx release (Adult Aspirin Regimen) vitamins A,C,R-fzrw-qibotl 4,296 1 cap PO BID 04/17/23 07/20/24 History mcg-226 mg-90 mg capsule (PreserVision AREDS) coenzyme Q10 1 cap PO BID 12/03/23 07/20/24 History netarsudil 0.02 %-latanoprost 1 drp ophthalmic (eye) DAILY 12/03/23 07/20/24 History 0.005 % eye drops (Rocklatan) brimonidine 0.2 % eye drops 1 drp LEFT EYE BID 12/04/23 07/20/24 History timolol maleate 0.5 % eye drops 1 drp ophthalmic (eye) BID 12/04/23 07/20/24 History Have you fallen in the past year?: No Nurse's Note: Patient has sinus complants with ST,Cough that has been going on for a month. Patient was exposed to someone at work that had covid. 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 alcohol intake: current alcohol intake frequency: holidays/special occasions only substance use type: does not use HPI HPI Details: JESUS ALBERTO GUEVARA, is a 84 M who presents to the office today for 1mo h/o runny nose, cough, sore throat. +COVID-19 exposure 1wk ago, therefore requesting COVID-19 screening for him self today. Feeling good today. No other associated symptoms and no other alleviating/aggravating factors. ROS Const Constitutional: No other (As above) Exam Const General: cooperative, healthy appearing and no acute distress Orientation: alert, awake and oriented x3 HENMT Head: normal to inspection Ears: hearing grossly normal bilaterally, external ears normal, TM's normal bilaterally and EAC's normal Nose: external nose normal, nares normal, septum normal and no nasal discharge Face and sinus: normal facial exam, sinuses nontender and face symmetric Mouth: oral mucosae normal, lip normal, tongue normal and oropharynx normal Throat: posterior oropharynx normal, tonsils normal, uvula midline and no postnasal drainage Eyes General: appearance normal, both eyes and all related structures Neck Neck: normal visual inspection, full ROM, no lymphadenopathy, no meningeal signs and supple Neck mass: No Thyroid: thyroid normal Lymphatic: no lymphadenopathy noted Chest Chest palpation inspection: normal inspection of the chest Resp Effort Inspection: normal respiratory effort, able to speak in complete sentences and no unsolicited cough Auscultation: Bilateral: Clear to Auscultation Cardio Palpation: normal PMI Rate: tachycardic Rhythm: regular rhythm Heart Sounds: S1 normal, S2 normal, no gallops, no murmurs and no rubs Pulses: radial pulses present Skin General: (more content not included)... Normal [facility] Visit Reporton Cardiology Visit Report [facility] [address] [place] [address] OFFICE VISIT Date of Service: 04/10/24 MR#: [id number] Acct: [id number] Name: JESUS ALBERTO GUEVARA Jr. Rep #: [id number] : 1940 Provider: DAO Hein Age/Sex: 84/M Location: [facility] Status: Signed [facility] History of Present Illness Details: Jesus Alberto Guevara is an 83-year-old gentleman that presents here today for a hospital follow-up. He has a history of coronary artery disease with angioplasty and stenting to his LAD in 2012. He also has a history of TIA, hyperlipidemia, chronic kidney disease. Patient was [facility] patient was admitted to [facility] on December 17, 2022 with chest discomfort. He had a mildly elevated troponin. He did undergo a stress test which was felt to be abnormal. He then underwent a diagnostic stress test which demonstrated triple-vessel disease and he was transferred to [facility] for evaluation of bypass surgery. Patient underwent bypass surgery on December 20, 2022 with a left internal mammary artery to the left anterior descending artery, saphenous vein graft to the diagonal vessel, obtuse marginal vessel and to the posterior descending artery. His main concern is not having enough energy. He will be getting a new CPAP. He does not have any chest pain. He feels his exercise tolerance is returning. He does note that prior to his bypass surgery when looking back at things he has had more exercise fatigue. He does not have any worsening shortness of breath. He does not have any lightheadedness, dizziness, palpitations. He does not have any lower extremity edema. He feels his incision is healing well. He did complete cardiac rehabilitation and has been doing quite well. Intake Vital Signs 12/03/23 20:33 04/10/24 11:32 Height 5 ft 11 in 5 ft 11 in Weight: 199 lb BMI 27.7 BP 144/84 H Blood Pressure Location Lt brachial Position Sitting Respiration 18 Pulse 56 L Pulse Source Monitor Pulse Oximetry (%) 97 Intake Visit Reasons: 1 Y FU Claims Adjustor Required: No Is patient in pain?: No Allergies No Known Allergies Allergy (Verified 04/10/24 11:33) Medications ???Medication ???Instructions ???Recorded ???Confirmed ???Type cholecalciferol (vitamin D3) 50 2,000 unit PO DAILY SUPPLEMENT 10/10/18 04/10/24 History mcg (2,000 unit) chewable tablet aspirin 81 mg tablet,delayed 81 mg PO DAILY #90 tabs 01/21/23 04/10/24 Rx release (Adult Aspirin Regimen) vitamins A,C,J-mcim-rxjkvj 4,296 1 cap PO BID 04/17/23 04/10/24 History mcg-226 mg-90 mg capsule (PreserVision AREDS) metoprolol tartrate 25 mg tablet 25 mg PO BID #180 tabs 05/06/23 04/10/24 Rx coenzyme Q10 1 cap PO BID 12/03/23 04/10/24 History netarsudil 0.02 %-latanoprost 1 drp ophthalmic (eye) DAILY 12/03/23 04/10/24 History 0.005 % eye drops (Rocklatan) brimonidine 0.2 % eye drops 1 drp LEFT EYE BID 12/04/23 04/10/24 History timolol maleate 0.5 % eye drops 1 drp ophthalmic (eye) BID 12/04/23 04/10/24 History oxycodone 5 mg tablet 10 mg (2 x 5 mg) PO Q4H PRN PRN 12/06/23 04/10/24 Rx Pain Score 4-10 3 days #10 tabs lisinopril 10 mg tablet 10 mg PO QDAY #90 tabs 04/10/24 04/10/24 Rx Have you fallen in the past year?: No PFSH Medical History (Updated 04/10/24 @ 11:57 by Liliana DC, PA) Essential hypertension Glaucoma Macular degeneration of both eyes Former smoker History of tapeworm infection COVID-19 (08/14/21) Atherosclerotic heart disease of [place] coronary artery without angina pectoris Hyperlipidemia CKD (chronic kidney disease) stage 3, GFR 30-59 ml/min TIA (transient ischemic attack) (09/2018) Prostate cancer Perforation of sigmoid colon due to diverticulitis Surgical History 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 alcohol intake: current alcohol intake frequency: holidays/special occasions only substance use type: does not use ROS Const Const: Positive for fatigue; Negative for weakness, body ache, headache(s), excessive sweating, weight l (more content not included)... Normal [facility] Absolute lymphocyte countOrd ered By: Hiren Mcintyre on 12-07-2023 Lymphocytes Auto (Unsp spec) [#/Vol] 1.92 10*3/uL 0.83-4.51 [facility] Automated lymphocyte count a s percentage of total leukocytesOrdered By: Hiren Mcintyre on 12-07-2023 Lymphocytes/100 WBC Auto (Unsp spec) 24.9 % 19-41 [facility] Basophil percentageOrdered B y: Hiren Mcintyre on 12-07-2023 Basophils/100 WBC (Bld) 0.8 % 0-1 [facility] Chloride [Moles/Vol] 108 mmol/L 98-107 [facility] Eosinophils/100 WBC (Bld) 2.6 % 0-5 [facility] Glucose [Mass/Vol] 80 mg/dL 74-106 [facility] Hemoglobin (Bld) [Mass/Vol] 15.9 g/dL 13.0-16.5 [facility] Monocytes/100 WBC (Bld) 8.8 % 0-10 [facility] Neutrophils (Bld) [#/Vol] 4.8 10*3/uL 2.0-7.7 [facility] Neutrophils/100 WBC (Bld) 62.6 % 47-70 [facility] Potassium [Moles/Vol] 3.8 mmol/L 3.5-5.1 [facility] Sodium [Moles/Vol] 139 mmol/L 136-145 [facility] WBC (Bld) [#/Vol] 7.7 10*3/uL 4.4-11.0 [facility] Determination of erythrocyte mean corpuscular volume (MCV)Ordered By: Hiren Mcintyre on 12-07-2023 MCV (RBC) [Entitic vol] 88.4 fL 80-94 [facility] Erythrocyte distribution wid th ratioOrdered By: Hirenmaykel Mcintyre on 12-07-2023 Erythrocyte distribution width (RBC) [Ratio] 13.4 % 11.6-14.6 [facility] Erythrocyte distribution wid th standard deviationOrdered By: Hiren Mcintyre on 12-07-2023 Erythrocyte distribution width (RBC) [Entitic vol] 43.3 fL 35.1-43.9 [facility] Hematocrit Auto (Bld) [Volum e fraction]Ordered By: Hiren Mcintyre on 12-07-2023 Hematocrit (Bld) [Volume fraction] 49.6 % 40-54 [facility] Immature granulocytes/100 WB C Auto (Bld)Ordered By: Hiren Mcintyre on 12-07-2023 Immature granulocytes/100 WBC (Bld) 0.300 % 0.0-0.9 [facility] Comment on above: IG% - Immature Granu locytes (promyelocytes, myelocytes and metamyelocytes) > 1% indicates that a LEFT SHIFT is Present. Laboratory - Chemistry and C hemistry - challengeOrdered By: Hiren Mcintyre on 12-07-2023 CO2 [Moles/Vol] 28.0 mmol/L 21.0-32.0 [facility] Urea nitrogen/Creatinine [Mass ratio] 15.2 mg/mg 10-20 [facility] - Hematology and Cell countsOrdered By: Hiren Mcintyre on 12-07-2023 MCH (RBC) [Entitic mass] 28.3 pg 27.0-32.0 [facility] MCHC (RBC) [Mass/Vol] 32.1 g/dL 32-36 [facility] Nucleated RBC/100 WBC (Bld) [Ratio] 0 % 0-5 [facility] Platelet mean volume (Bld) [Entitic vol] 10.9 fL 6.2-12.0 [facility] Platelets (Bld) [#/Vol] 164 10*3/uL 150-450 [facility] No Panel InformationOrdered By: Hiren Mcintyre on 12-07-2023 Estimated Creatinine Clearance Calc 53.30 ml/min [facility] Estimated GFR (MDRD) Amer 67 mL/min >60 [facility] Comment on above: GFR Calc Estimated GFR (MDRD) Non-Af Amer 55 mL/min >60 [facility] Comment on above: Non- GFR Calc RBC Auto (Bld) [#/Vol]Ordere d By: Hiren Mcintyre on 12-07-2023 RBC (Bld) [#/Vol] 5.61 10*6/uL 4.6-6.2 [facility] Serum or plasma calcium aric urement (mass/volume)Ordered By: Hiren Mcintyre on 12-07-2023 Calcium [Mass/Vol] 8.6 mg/dL 8.5-10.1 [facility] Serum or plasma creatinine m easurement (mass/volume)Ordered By: Hiren Mcintyre on 12-07-2023 Creatinine [Mass/Vol] 1.32 mg/dL 0.70-1.30 [facility] Comment on above: The validity of the calculated GFR & GFRAA in patients over 70 years has not been determined. Clinical correlation is essential. Serum or plasma urea nitroge n measurement (mass/volume)Ordered By: Hiren Mcintyre on 12-07-2023 Urea nitrogen [Mass/Vol] 20 mg/dL 7-18 [facility] Thin prep Papanicolaou smear with manual screeningOrdered By: Hiren Mcintyre on 12-07-2023 Thin prep Papanicolaou smear with manual screening 3 5-15 [facility] Basophil percentageOrdered B y: Jazlyn Zayas on 09-10-2023 Potassium [Moles/Vol] 4.6 mmol/L 3.5-5.1 [facility] Basic metabolic 1998 panelon 12-25-2022 Anion gap [Moles/Vol] 5 mmol/L 3 - 13 mmol/L [facility] [employer] Calcium [Mass/Vol] 7.8 mg/dL Low 8.4 - 10. 4 mg/dL [facility] Chloride [Moles/Vol] 102 mmol/L 98 - 10 7 mmol/L [facility] CO2 [Moles/Vol] 28 mmol/L 22 - 30 mmol/L [facility] Creatinine [Mass/Vol] 1.55 mg/dL High 0.66 - 1.25 mg/dL [facility] GFR/1.73 sq M.predicted MDRD (S/P/Bld) [Vol rate/Area] 44.7 mL/min/{1.73_m2} Low - PINF [facility] Comment on above: Calculation based on the Chronic Kidney Disease Epidemiology Collaboration (CKD-EPI) equation refit without adjustment for race Glucose [Mass/Vol] 157 mg/dL High 70 - 100 mg/dL [facility] Interpretation and review of laboratory results Abnormal [facility] Potassium [Moles/Vol] 3.4 mmol/L Low 3.5 - 5.1 mmol/L [facility] Sodium [Moles/Vol] 134 mmol/L Low 135 - 145 mmol/L [facility] Urea nitrogen [Mass/Vol] 36 mg/dL High 9 - 20 mg/dL [facility] CBC panel Auto (Bld)on 12-25 Erythrocyte distribution width (RBC) [Ratio] 13.9 % 11.5 - 14.5 % [facility] Hematocrit (Bld) [Volume fraction] 35.1 % Low 40.0 - 52.0 % [facility] Hemoglobin (Bld) [Mass/Vol] 11.9 g/dL Low 13.0 - 18.0 g/dL [facility] Interpretation and review of laboratory results Abnormal [facility] MCH (RBC) [Entitic mass] 29.5 pg 26.0 - 34.0 pg [facility] MCHC (RBC) [Mass/Vol] 33.9 % 32.0 - 36.0 % [facility] MCV (RBC) [Entitic vol] 87.1 fL 80.0 - 98.0 fL [facility] Platelet mean volume (Bld) [Entitic vol] 8.8 fL 7.4 - 12.4 fL [facility] Platelets (Bld) [#/Vol] 166 10*3/uL 140 - 440 10*3/uL [facility] RBC (Bld) [#/Vol] 4.03 10*6/uL Low 4.40 - 5.90 10*6/uL [facility] WBC (Bld) [#/Vol] 8.0 10*3/uL 3.6 - 10.7 10*3/uL [facility] Laboratory - Chemistry and C hemistry - challengeon 12-25-2022 Glucose [Mass/Vol] 134 mg/dL High 70 - 100 mg/dL [facility] Magnesium [Mass/Vol] 2.3 mg/dL 1.6 - 2 .3 mg/dL [facility] Magnesium [Mass/Vol]on 12-25 Interpretation and review of laboratory results Normal [facility] No Panel Informationon 12-25 Interpretation and review of laboratory results Abnormal [facility] Performed by: [facility], [address] [place] [address] CLIA ID: [id number] [facility] XR Chest Single viewon 12-25 1. Lines/ tubes/ dev ices: Sternotomy wires and mediastinal clips. Chest leads overlie the thorax. 2. Lungs and Pleura: Minimal left basilar atelectasis. No interval consolidation. No pneumothorax or pleural effusion. 3. Heart and mediastinum: Mild cardiomegaly, unchanged. 4. Bones: Thoracic degenerative spondylosis. Report Dictated on Electronically Signed By: Gopi Howell Electronically Signed Date/Time: 12/25/2022 6:58 AM EDT [facility] Patient Name: JESUS ALBERTO GUEVARA : 1940 Exam Date/Time: 12/25/2022 05:37 Procedure: XR CHEST 1 VIEW Ordering Provider: EMERSON MATTHEW Reason For Exam: Shortness of breath PORTABLE CHEST CLINICAL INDICATION: Dyspnea. COMPARISON: 12/24/2022. TECHNIQUE: A single frontal view of thorax was obtained and reviewed. [facility] Gopi Howell DO - 12/25/2022 Patient Name: JESUS ALBERTO GUEVARA : 1940 Exam Date/Time: 12/25/2022 05:37 Procedure: XR CHEST 1 VIEW Ordering Provider: EMERSON MATTHEW Reason For Exam: Shortness of breath PORTABLE CHEST CLINICAL INDICATION: Dyspnea. COMPARISON: 12/24/2022. TECHNIQUE: A single frontal view of thorax was obtained and reviewed. IMPRESSION: 1. Lines/ tubes/ devices: Sternotomy wires and mediastinal clips. Chest leads overlie the thorax. 2. Lungs and Pleura: Minimal left basilar atelectasis. No interval consolidation. No pneumothorax or pleural effusion. 3. Heart and mediastinum: Mild cardiomegaly, unchanged. 4. Bones: Thoracic degenerative spondylosis. Report Dictated on Electronically Signed By: Gopi Howell Electronically Signed Date/Time: 12/25/2022 6:58 AM EDT [facility] Radiology Study observation (narrative) [facility] Basic metabolic 1998 panelon 12-24-2022 Anion gap [Moles/Vol] 1 mmol/L Low 3 - 13 mmol/L [facility] [employer] Calcium [Mass/Vol] 7.9 mg/dL Low 8.4 - 10. 4 mg/dL [facility] [employer] Chloride [Moles/Vol] 102 mmol/L 98 - 10 7 mmol/L [facility] [employer] CO2 [Moles/Vol] 30 mmol/L 22 - 30 mmol/L [facility] [employer] Creatinine [Mass/Vol] 1.47 mg/dL High 0.66 - 1.25 mg/dL [facility] GFR/1.73 sq M.predicted MDRD (S/P/Bld) [Vol rate/Area] 47.6 mL/min/{1.73_m2} Low - PINF [facility] Comment on above: Calculation based on the Chronic Kidney Disease Epidemiology Collaboration (CKD-EPI) equation refit without adjustment for race Glucose [Mass/Vol] 121 mg/dL High 70 - 100 mg/dL [facility] [employer] Potassium [Moles/Vol] 3.8 mmol/L 3.5 - 5.1 mmol/L [facility] [employer] Sodium [Moles/Vol] 134 mmol/L Low 135 - 145 mmol/L [facility] Urea nitrogen [Mass/Vol] 32 mg/dL High 9 - 20 mg/dL [facility] CBC panel Auto (Bld)on 12-24 Erythrocyte distribution width (RBC) [Ratio] 13.8 % 11.5 - 14.5 % [facility] Hematocrit (Bld) [Volume fraction] 33.1 % Low 40.0 - 52.0 % [facility] Hemoglobin (Bld) [Mass/Vol] 11.3 g/dL Low 13.0 - 18.0 g/dL [facility] Interpretation and review of laboratory results Abnormal [facility] MCH (RBC) [Entitic mass] 29.6 pg 26.0 - 34.0 pg [facility] MCHC (RBC) [Mass/Vol] 34.2 % 32.0 - 36.0 % [facility] MCV (RBC) [Entitic vol] 86.5 fL 80.0 - 98.0 fL [facility] Platelet mean volume (Bld) [Entitic vol] 9.1 fL 7.4 - 12.4 fL [facility] Platelets (Bld) [#/Vol] 171 10*3/uL 140 - 440 10*3/uL [facility] RBC (Bld) [#/Vol] 3.82 10*6/uL Low 4.40 - 5.90 10*6/uL [facility] WBC (Bld) [#/Vol] 10.3 10*3/uL 3.6 - 10.7 10*3/uL [facility] Calcium.ionized [Moles/Vol]o n 12-24-2022 Calcium.ionized (Bld) [Moles/Vol] 4.00 mg/dL Low 4.30 - 5.20 mg/dL [facility] Interpretation and review of laboratory results Abnormal [facility] PH, IONIZED CALCIUM 7.44 7.31 - 7.46 [facility] Laboratory - Chemistry and C hemistry - challengeon 12-24-2022 Glucose [Mass/Vol] 104 mg/dL High 70 - 100 mg/dL [facility] Magnesium [Mass/Vol] 2.4 mg/dL High 1.6 - 2 .3 mg/dL [facility] No Panel Informationon 12-24 P Thida 26 degrees [facility] MN Interval 183 ms [facility] QRS Thida -1 degrees [facility] QRSD [facility]val [facility] 404 ms [facility] QTC Interval 432 ms [facility] T Wave Thida 20 degrees [facility] Sinus rhythm Probable left atrial enlargement Inferior infarct, old Poor R wave progression Compared to ECG 12/22/2022 05:36:24 No significant changes Electronically Signed On 12-24-2022 20:40:56 EDT by Shiloh Toscano CV Shiloh Perea MD - 12/24/2022 IMPRESSION: Sinus rhythm Probable left atrial enlargement Inferior infarct, old Poor R wave progression Compared to ECG 12/22/2022 05:36:24 No significant changes Electronically Signed On 12-24-2022 20:40:56 EDT by Shiloh Toscano [facility] Interpretation and review of laboratory results Abnormal [facility] Performed by: [facility], [address] [place] [address] CLIA ID: [id number] [facility] Blood Expiration Date [id number] [facility] [employer] Blood Expiration Date [facility] [employer] Crossmatch interpretation COMP [facility] [employer] Dispense Status Released from [employer] [facility] [employer] Product Blood Type 6200 [facility] [employer] PRODUCT CODE [id number] [facility] ABO A [facility] Number [id number] [facility] [id number] [facility] RH Positive [facility] Unit Volume 300 mL [facility] Interpretation and review of laboratory results Abnormal [facility] Vital signson 12-24-2022 Heart rate 69 /min bpm [facility] [employer] XR Chest Single viewon 12-24 See findings. Report Dictated on Electronically Signed By: Pineda Gonsales Electronically Signed Date/Time: 12/24/2022 7:03 AM EDT [facility]Y [facility] Patient Name: JESUS ALBERTO GUEVARA : 1940 Exam Date/Time: 12/24/2022 05:46 Procedure: XR CHEST 1 VIEW Ordering Provider: EMERSON MATTHEW Reason For Exam: Shortness of breath CHEST RADIOGRAPH CLINICAL INDICATION: Shortness of breath TECHNIQUE: AP COMPARISON: 12/23/2022 chest radiograph FINDINGS: Status post median sternotomy. Right IJ sheath in place with tip terminating in the proximal SVC. Cardiomediastinal: The cardiomediastinal silhouette is enlarged, unchanged compared to prior imaging. Lungs: Interval improvement in aeration of the left lung base with persistent streaky opacities. No sizable pleural effusion or pneumothorax. Osseous structures: No acute osseous abnormality. [facility] Pineda Gonsales MD - 12/24/2022 Patient Name: [facility]ES[facility] ALBERTO [facility]UEVARA [facility] 1940 [id number] Exam Date/Time: 12/24/2022 05:46 Procedure: XR CHEST 1 VIEW Ordering Provider: EMERSON MATTHEW Reason For Exam: Shortness of breath CHEST RADIOGRAPH CLINICAL INDICATION: Shortness of breath TECHNIQUE: AP COMPARISON: 12/23/2022 chest radiograph FINDINGS: Status post median sternotomy. Right IJ sheath in place with tip terminating in the proximal SVC. Cardiomediastinal: The cardiomediastinal silhouette is enlarged, unchanged compared to prior imaging. Lungs: Interval improvement in aeration of the left lung base with persistent streaky opacities. No sizable pleural effusion or pneumothorax. Osseous structures: No acute osseous abnormality. IMPRESSION: See findings. Report Dictated on Electronically Signed By: Pineda Gonsales Electronically Signed Date/Time: 12/24/2022 7:03 AM EDT [facility] Radiology Study observation (narrative) [facility] [id number] 12-23-2022 [id number] Called to see for IV infiltration. Left forarm IV intact, slight swelling noted above IV site, area is soft, non tender, non blanching, no temperature change, strong distal pulses noted. RN states Tylenol infusion and calcium. Grade 2. RN notified to elevate and place warm compress. IV removed , catheter intact. Patient in NAD. . Normal [facility] Basic metabolic 1998 panelon 12-23-2022 Anion gap [Moles/Vol] 4 mmol/L 3 - 13 mmol/L [facility] Calcium [Mass/Vol] 7.9 mg/dL Low 8.4 - 10. 4 mg/dL [facility] Chloride [Moles/Vol] 103 mmol/L 98 - 10 7 mmol/L [facility] CO2 [Moles/Vol] 27 mmol/L 22 - 30 mmol/L [facility] Creatinine [Mass/Vol] 1.49 mg/dL High 0.66 - 1.25 mg/dL [facility] GFR/1.73 sq M.predicted MDRD (S/P/Bld) [Vol rate/Area] 46.9 mL/min/{1.73_m2} Low - PINF [facility] Comment on above: Calculation based on the Chronic Kidney Disease Epidemiology Collaboration (CKD-EPI) equation refit without adjustment for race Glucose [Mass/Vol] 119 mg/dL High 70 - 100 mg/dL [facility] Interpretation and review of laboratory results Abnormal [facility] Potassium [Moles/Vol] 4.0 mmol/L 3.5 - 5.1 mmol/L [facility] Sodium [Moles/Vol] 134 mmol/L Low 135 - 145 mmol/L [facility] Urea nitrogen [Mass/Vol] 25 mg/dL High 9 - 20 mg/dL [facility] CBC panel Auto (Bld)Ordered By: Olamide De La Garza on 12-23-2022 Erythrocyte distribution width (RBC) [Ratio] 14.1 % 11.5 - 14.5 % [facility] Hematocrit (Bld) [Volume fraction] 33.4 % Low 40.0 - 52.0 % [facility] Hemoglobin (Bld) [Mass/Vol] 11.1 g/dL Low 13.0 - 18.0 g/dL [facility] MCH (RBC) [Entitic mass] 29.2 pg 26.0 - 34.0 pg [facility] MCHC (RBC) [Mass/Vol] 33.3 % 32.0 - 36.0 % [facility] MCV (RBC) [Entitic vol] 87.9 fL 80.0 - 98.0 fL [facility] Platelet mean volume (Bld) [Entitic vol] 9.3 fL 7.4 - 12.4 fL [facility] Platelets (Bld) [#/Vol] 133 10*3/uL Low 140 - 440 10*3/uL [facility] RBC (Bld) [#/Vol] 3.80 10*6/uL Low 4.40 - 5.90 10*6/uL [facility] WBC (Bld) [#/Vol] 11.3 10*3/uL High 3.6 - 10.7 10*3/uL [facility] [employer] Calcium.ionized [Moles/Vol]O rdered By: Andrea Matthews on 12-23-2022 Calcium.ionized (Bld) [Moles/Vol] 4.10 mg/dL Low 4.30 - 5.20 mg/dL [facility] Interpretation and review of laboratory results Abnormal [facility] [employer] PH, IONIZED CALCIUM 7.35 7.31 - 7.46 [facility] ECG 12-LEADon 12-23-2022 ECG 12-LEAD IMPRESSION: Sinus rhythm Probable left atrial enlargement Inferior infarct, old Electronically Signed On 12-23-2022 8:06:46 EDT by Shiloh Toscano Normal [facility] ECG 12-LEAD IMPRESSION: Sinus rhythm Probable left atrial enlargement Inferior infarct, old Anterior infarct, old Normal [facility] Laboratory - Chemistry and C hemistry - challengeon 12-23-2022 Magnesium [Mass/Vol] 2.2 mg/dL 1.6 - 2 .3 mg/dL [facility] Laboratory - Coagulationon 0 12-23-2022 aPTT Coag (PPP) [Time] 30.8 s High 20.0 - 30.5 s [facility] INR Coag (PPP) [Relative time] 1.0 {INR} 0.9 - 1.1 [facility] Comment on above: Recommended Anticoag ulant Therapy: SEE BELOW ----- INR of 2.0 - 3.0 : - Prophylaxis of Venous Thrombosis (high-risk surgery) - Treatment of Venous Thrombosis - Treatment of Pulmonary Embolism (Includes tissue heart valves, Acute Myocardial Infarction to prevent systemic embolism, Valvular Heart Disease, and Atrial Fibrillation) ----- INR of 2.5 - 3.5 : - Mechanical Prosthetic Valves (high risk) - If oral anticoagulant therapy is used to prevent Myocardial Infarction PT Coag (Bld) [Time] 11.1 s 9.0 - 1 2.0 s [facility] Magnesium [Mass/Vol]on 12-23 Interpretation and review of laboratory results Normal [facility] [employer] No Panel InformationOrdered By: Shiloh Toscano on 12-23-2022 P Thida 29 degrees [email or web address] Work Phone: MN Interval 185 ms [email or web address] Work Phone: QRS Thida 1 degrees [email or web address] Work Phone: QRSD Interval 96 ms [facility] [employer] Work Phone: QT Interval 375 ms [employer] Work Phone: QTC Interval 421 ms [facility] [employer] Work Phone: T Wave Thida 2 degrees [email or web address] Work Phone: [email or web address] Work Phone: No Panel Informationon 12-23 Sinus rhythm Probable left atrial enlargement Inferior infarct, old Electronically Signed On 12-23-2022 8:06:46 EDT by Shiloh Toscano CV Shiloh Perea MD - 12/23/2022 IMPRESSION: Sinus rhythm Probable left atrial enlargement Inferior infarct, old Electronically Signed On 12-23-2022 8:06:46 EDT by Shiloh Toscano [facility] [employer] [facility] [employer] Interpretation and review of laboratory results Abnormal [facility] [employer] Vital signsOrdered By: Shiloh Toscano on 12-23-2022 Heart rate 76 /min bpm [employer] Phone: XR ABDOMEN 1 VIEWon 12-24-19 XR ABDOMEN 1 VIEW Patient Name: JESUS ALBERTO GUEVARA : 1940 [id number] Exam Date/Time: 12/23/2022 08:10 Procedure: XR ABDOMEN 1 VIEW Ordering Provider: REYES KYLE Reason For Exam: NAUSEA EXAMINATION: XR abdomen AP. EXAM DATE AND TIME: 12/23/2022 8:10 AM EDT INDICATION: NAUSEA ADDITIONAL INFORMATION: 82-year-old male with nausea presents for evaluation COMPARISON: None TECHNIQUE: Frontal views of the abdomen were obtained. FINDINGS: There is no evidence for pneumobilia or portal venous gas. No pathological intra-abdominal calcification is present. There is nonspecific gaseous distention of the colon and a couple loops of small bowel. An NG/OG tube is present with its distal tip projecting over the gastric lumen. Cholecystectomy clips project over the right upper quadrant. No acute osseous abnormality is evident. Brachytherapy seeds project over the pelvis. IMPRESSION: No acute abnormality identified. Nonspecific gaseous distention of the colon and a couple loops of small bowel. Report Dictated on Electronically Signed By: Shine Obregon Electronically Signed Date/Time: 12/23/2022 8:38 AM EDT [facility] XR Abdomen Single viewon No acute abnormality identified. Nonspecific gaseous distention of the colon and a couple loops of small bowel. Report Dictated on Electronically Signed By: Shine Obregon Electronically Signed Date/Time: 12/23/2022 8:38 AM EDT [facility] Patient Name: JESUS ALBERTO GUEVARA : 1940 Exam Date/Time: 12/23/2022 08:10 Procedure: XR ABDOMEN 1 VIEW Ordering Provider: REYES KYLE Reason For Exam: NAUSEA EXAMINATION: XR abdomen AP. EXAM DATE & TIME: 12/23/2022 8:10 AM EDT INDICATION: NAUSEA ADDITIONAL INFORMATION: 82-year-old male with nausea presents for evaluation COMPARISON: None TECHNIQUE: Frontal views of the abdomen were obtained. FINDINGS: There is no evidence for pneumobilia or portal venous gas. No pathological intra-abdominal calcification is present. There is nonspecific gaseous distention of the colon and a couple loops of small bowel. An NG/OG tube is present with its distal tip projecting over the gastric lumen. Cholecystectomy clips project over the right upper quadrant. No acute osseous abnormality is evident. Brachytherapy seeds project over the pelvis. [facility] Shine Obregon MD - 12/23/2022 Patient Name: JESUS ALBERTO GUEVARA : 1940 Exam Date/Time: 12/23/2022 08:10 Procedure: XR ABDOMEN 1 VIEW Ordering Provider: REYES KYLE Reason For Exam: NAUSEA EXAMINATION: XR abdomen AP. EXAM DATE & TIME: 12/23/2022 8:10 AM EDT INDICATION: NAUSEA ADDITIONAL INFORMATION: 82-year-old male with nausea presents for evaluation COMPARISON: None TECHNIQUE: Frontal views of the abdomen were obtained. FINDINGS: There is no evidence for pneumobilia or portal venous gas. No pathological intra-abdominal calcification is present. There is nonspecific gaseous distention of the colon and a couple loops of small bowel. An NG/OG tube is present with its distal tip projecting over the gastric lumen. Cholecystectomy clips project over the right upper quadrant. No acute osseous abnormality is evident. Brachytherapy seeds project over the pelvis. IMPRESSION: No acute abnormality identified. Nonspecific gaseous distention of the colon and a couple loops of small bowel. Report Dictated on Electronically Signed By: Shine Obregon Electronically Signed Date/Time: 12/23/2022 8:38 AM EDT [email or web address] Radiology Study observation (narrative) [email or web address] XR Abdomen Single viewOrdere d By: Shine Obregon on 12-23-2022 [email or web address] Work Phone: XR CHEST 1 VIEWon 12-23-2022 XR CHEST 1 VIEW Patient Name: JESUS ALBERTO [facility]UEVARA : 1940 [id number] Exam Date/Time: 12/23/2022 05:30 Procedure: XR CHEST 1 VIEW Ordering Provider: EMERSON MATTHEW Reason For Exam: Shortness of breath PORTABLE CHEST CLINICAL INDICATION: Dyspnea. COMPARISON: 12/22/2022. TECHNIQUE: A single frontal view of thorax was obtained and reviewed. IMPRESSION: 1. Lines/ tubes/ devices: Sternotomy wires and mediastinal clips. Chest leads overlie the thorax. 2. Lungs and Pleura: Left lower lobe hazy density is slightly improved. Left lower lobe infiltrate or atelectasis is redemonstrated. No pneumothorax or pleural effusion. 3. Heart and mediastinum: Mild cardiomegaly, unchanged. 4. Bones: Thoracic degenerative spondylosis. Report Dictated on Electronically Signed By: Gopi Howell Electronically Signed Date/Time: 12/23/2022 8:14 AM EDT Normal [email or web address] [facility] XR Chest Single viewon 12-23 1. Lines/ tubes/ dev ices: Sternotomy wires and mediastinal clips. Chest leads overlie the thorax. 2. Lungs and Pleura: Left lower lobe hazy density is slightly improved. Left lower lobe infiltrate or atelectasis is redemonstrated. No pneumothorax or pleural effusion. 3. Heart and mediastinum: Mild cardiomegaly, unchanged. 4. Bones: Thoracic degenerative spondylosis. Report Dictated on Electronically Signed By: Gopi Howell Electronically Signed Date/Time: 12/23/2022 8:14 AM EDT [facility] Patient Name: JESUS ALBERTO [facility]UEVARA : 1940 [id number] Exam Date/Time: 12/23/2022 05:30 Procedure: XR CHEST 1 VIEW Ordering Provider: EMERSON MATTHEW Reason For Exam: Shortness of breath PORTABLE CHEST CLINICAL INDICATION: Dyspnea. COMPARISON: 12/22/2022. TECHNIQUE: A single frontal view of thorax was obtained and reviewed. [facility] Gopi Howell - 12/23/2022 Patient Name: JESUS ALBERTO GUEVARA : 1940 [id number] Exam Date/Time: 12/23/2022 05:30 Procedure: XR CHEST 1 VIEW Ordering Provider: EMERSON MATTHEW Reason For Exam: Shortness of breath PORTABLE CHEST CLINICAL INDICATION: Dyspnea. COMPARISON: 12/22/2022. TECHNIQUE: A single frontal view of thorax was obtained and reviewed. IMPRESSION: 1. Lines/ tubes/ devices: Sternotomy wires and mediastinal clips. Chest leads overlie the thorax. 2. Lungs and Pleura: Left lower lobe hazy density is slightly improved. Left lower lobe infiltrate or atelectasis is redemonstrated. No pneumothorax or pleural effusion. 3. Heart and mediastinum: Mild cardiomegaly, unchanged. 4. Bones: Thoracic degenerative spondylosis. Report Dictated on Electronically Signed By: Gopi Howell Electronically Signed Date/Time: 12/23/2022 8:14 AM EDT [facility] [employer] Radiology Study observation (narrative) [employer] XR Chest Single viewOrdered By: Gopi Howell on 12-23-2022 [email or web address] Work Phone: Basic metabolic 1998 panelon 12-22-2022 Anion gap [Moles/Vol] 6 mmol/L 3 - 13 mmol/L [facility] Calcium [Mass/Vol] 8.0 mg/dL Low 8.4 - 10. 4 mg/dL [facility] Chloride [Moles/Vol] 107 mmol/L 98 - 10 7 mmol/L [facility] CO2 [Moles/Vol] 22 mmol/L 22 - 30 mmol/L [facility] Creatinine [Mass/Vol] 1.36 mg/dL High 0.66 - 1.25 mg/dL [facility] GFR/1.73 sq M.predicted MDRD (S/P/Bld) [Vol rate/Area] 52.3 mL/min/{1.73_m2} Low - [facility] Comment on above: Calculation based on the Chronic Kidney Disease Epidemiology Collaboration (CKD-EPI) equation refit without adjustment for race Glucose [Mass/Vol] 125 mg/dL High 70 - 100 mg/dL [facility] Potassium [Moles/Vol] 4.2 mmol/L 3.5 - 5.1 mmol/L [facility] Sodium [Moles/Vol] 134 mmol/L Low 135 - 145 mmol/L [facility] Urea nitrogen [Mass/Vol] 23 mg/dL High 9 - 20 mg/dL [facility] CBC panel Auto (Bld)Ordered By: Matt Draper on 12-22-2022 Erythrocyte distribution width (RBC) [Ratio] 14.4 % 11.5 - 14.5 % [facility] Hematocrit (Bld) [Volume fraction] 32.1 % Low 40.0 - 52.0 % [facility] Hemoglobin (Bld) [Mass/Vol] 10.8 g/dL Low 13.0 - 18.0 g/dL [facility] Interpretation and review of laboratory results Abnormal [facility] MCH (RBC) [Entitic mass] 29.4 pg 26.0 - 34.0 pg [facility] MCHC (RBC) [Mass/Vol] 33.6 % 32.0 - 36.0 % [facility] MCV (RBC) [Entitic vol] 87.5 fL 80.0 - 98.0 fL [facility] Platelet mean volume (Bld) [Entitic vol] 8.7 fL 7.4 - 12.4 fL [facility] Platelets (Bld) [#/Vol] 107 10*3/uL Low 140 - 440 10*3/uL [facility] RBC (Bld) [#/Vol] 3.67 10*6/uL Low 4.40 - 5.90 10*6/uL [facility] WBC (Bld) [#/Vol] 11.6 10*3/uL High 3.6 - 10.7 10*3/uL [facility] Laboratory - Chemistry and C hemistry - challengeon 12-22-2022 Glucose [Mass/Vol] 145 mg/dL High 70 - 100 mg/dL [facility] Glucose [Mass/Vol] 111 mg/dL High 70 - 100 mg/dL [facility] Magnesium [Mass/Vol] 2.4 mg/dL High 1.6 - 2 .3 mg/dL [facility] Laboratory - Coagulationon 0 12-22-2022 aPTT Coag (PPP) [Time] 31.3 s High 20.0 - 30.5 s [facility] INR Coag (PPP) [Relative time] 1.1 {INR} 0.9 - 1.1 [facility] Comment on above: Recommended Anticoag ulant Therapy: SEE BELOW ----- INR of 2.0 - 3.0 : - Prophylaxis of Venous Thrombosis (high-risk surgery) - Treatment of Venous Thrombosis - Treatment of Pulmonary Embolism (Includes tissue heart valves, Acute Myocardial Infarction to prevent systemic embolism, Valvular Heart Disease, and Atrial Fibrillation) ----- INR of 2.5 - 3.5 : - Mechanical Prosthetic Valves (high risk) - If oral anticoagulant therapy is used to prevent Myocardial Infarction PT Coag (Bld) [Time] 11.9 s 9.0 - 1 2.0 s [facility] No Panel Informationon 12-22 Interpretation and review of laboratory results Abnormal [facility] Performed by: [facility], [address] [place], [place] [id number] CLIA ID: [id number] [facility] Interpretation and review of laboratory results Abnormal [facility] Performed by: [facility], [address] [place] [id number] CLIA ID: [id number] [facility] Interpretation and review of laboratory results Abnormal [facility] Interpretation and review of laboratory results Abnormal [facility] Progress Noteon 12-22-2022 Progress Note ----- ----- Attestation signed by Greg Garcia MD at 12/22/2022 11:44 PM I performed a history and physical examination of the patient. I have reviewed the patient's chart including pertinent history, medications, labs, radiology, and other reports. I reviewed the resident/LUCHO's note, agree with the documented findings and plan of care (with modifications noted if any), and discussed the management plan. I have performed a substantive portion of the the medical decision making. Pt eating a little better today. Had jello. No n/v. BG stable. BP 107/68 Pulse 77 Temp 36.8 ?C (98.2 ?F) (Oral) Resp 18 Ht 5' 11 (1.803 m) Wt 232 lb 2.3 oz (105 kg) SpO2 97% PF 55 L/min BMI 32.38 kg/m? Awake, not in distress, on O2 per NC, RRR, chest incision intact, decreased breath sounds, abdomen soft, distended, non-tender, no edema. Dx: Stress hyperglycemia. CAD s/p CABG. CKD 3. Plan: - discontinue SS insulin - no need for regular glucose monitoring - discussed importance of healthy lifestyle - will sign off Total time 20 minutes which include review of records, counseling, management, and coordination of care as documented in note. ----- Department of Internal Medicine Division of Endocrinology, Diabetes, & Metabolism Endocrinology Note Patient Name: Jesus Alberto Guevara Jr. : 1940 AGE: 82 y.o. Room/Bed: [facility]/111 A Admission Date: 12/18/2022 Visit Date: 12/22/2022 Reason for Endocrine Consult: post op heart Provider/Team Requesting Consult: CTS PCP: JAZLYN ZAYAS, DO Outpt Safety Compliance Specialist: No ASSESSMENT: Stress hyperglycemia Cabg CAD/HTN/HLD KASSANDRA on CKD PLAN: Discontinue sliding scale Discontinue sliding scale Will sign off ICU goal <180 GMF goal <150 POCT ACHS Hypoglycemia per protocol Carb controlled diet ANTICIPATED ENDOCRINE HOME GOING RECOMMENDATIONS: Optimized for Discharge from Endocrine standpoint: No Home Going Endocrine Rx Recommendations-- none Outpt Follow Up-- pcp SUBJECTIVE/HPI: CHIEF COMPLAINT: No chief complaint on file. Cabg No noted hx of diabetes noted Bgl [phone] Feels good Pain is better Eating well Type of DM: na Onset of DM: na Home DM Medication Regimen: na DM control (last A1c/glucose data): Lab Results Component Value Date HGBA1C 5.4 12/18/2022 Review of Systems All other systems reviewed and are negative. ROS negative except for those mentioned in HPI. OBJECTIVE: Vitals: 12/22/22 1600 12/22/22 1653 12/22/22 1700 12/22/22 1800 BP: 125/84 111/74 120/81 124/84 BP Location: Patient Position: Pulse: 91 89 91 90 Resp: 20 Temp: (!) 38.1 ?C (100.6 ?F) 37.3 ?C (99.2 ?F) TempSrc: Temporal Temporal SpO2: 98% 96% 97% 97% Weight: Height: PF: Physical Exam Vitals and nursing note reviewed. Constitutional: General: He is awake. He is not in acute distress. Appearance: He is not ill-appearing or toxic-appearing. HENT: Head: Normocephalic and atraumatic. Cardiovascular: Rate and Rhythm: Normal rate. Pulmonary: Effort: Pulmonary effort is normal. Abdominal: Palpations: Abdomen is soft. Skin: General: Skin is warm and dry. Comments: Intact incision Neurological: Mental Status: He is alert and oriented to person, place, and time. Psychiatric: Mood and Affect: Mood normal. Behavior: Behavior is cooperative. 24 hour intake/output: Intake/Output Summary (Last 24 hours) at 12/22/2022 1849 Last data filed at 12/22/2022 1832 Gross per 24 hour Intake 1929.72 ml Output 1720 ml Net 209.72 ml Diet: Adult diet Regular; 5 carb choices (75 gm/meal) Medications (as per EMR): HomeMeds: @MEDHMEDS@ Scheduled Meds:acetaminophen, 1,000 mg, IntraVENous, 4 times per day aspirin, 81 mg, Oral, Daily chlorhexidine, 15 mL, Mouth/Throat, BID furosemide, 20 mg, IntraVENous, BID heparin, 5,000 Units, SubCUTAneous, 2 times per day Lidocaine, 1 patch, TransDERmal, Daily [START ON 12/23/2022] magnesium hydroxide, 30 mL, Oral, Daily metoprolol tartrate, 12.5 mg, Oral, BID mupirocin, , Nasal, BID pantoprazole, 40 mg, Oral, qAM AC polyethylene glycol (PEG) 3350, 17 g, Oral, Daily rosuvastatin, 40 mg, Oral, Daily senna-docusate sodium, 2 tablet, Oral, Nightly Continuous Infusions:amiodarone, 1 mg/min, Last Rate: 1 mg/min (12/22/227) Followed by amiodarone, 0.5 mg/min PRN Meds:PRN medications: albumin human, calcium gluconate, dextrose, dextrose, glucagon (rDNA), glucose, magnesium sulfate OR magnesium sulfate, ondansetron ODT OR ondansetron, potassium chloride OR potassium chloride (KCl) in 250 mL IVPB (peripheral line) OR potassium chloride (KCl) in 500 mL IVPB (peripheral line), potassium chloride CR, prochlorperazine, simethicone, tiZANidine, traMADol OR tr (more content not included)... Normal [facility] Progress Note [facility] [place] [address] [place] [address] Progress Note Assessment: Jesus Alberto Guevara Jr. is a 82 y.o. male with PMH including HTN, HLD, TIA, who presented from [facility] due to positive stress test with inferior WMA, EKG changes, had LHC done which showed MVCAD. Nephrology consulted for CKD. CKD- stage 3, recently Scr improving -non-oliguric recently -S/P CABG doing well HTN- BP stable Volume- no overt fluid overload Acid/base- AGMA Hyponatremia-monitor for now, Pt on IV Lasix BID Plan: -monitor renal function, electrolytes -no need for IVFs Sammi Patten DO 12/22/2022 4:07 PM ----- ----- ----- Subjective: Patient seen and examined today. We are following this patient for S/P CABG x [address] Nickerson - D/w RN , no new issues Scheduled Meds:acetaminophen, 1,000 mg, IntraVENous, 4 times per day amiodarone, 150 mg, IntraVENous, Once aspirin, 81 mg, Oral, Daily chlorhexidine, 15 mL, Mouth/Throat, BID furosemide, 20 mg, IntraVENous, BID heparin, 5,000 Units, SubCUTAneous, 2 times per day insulin lispro, 0-6 Units, SubCUTAneous, TID WC Lidocaine, 1 patch, TransDERmal, Daily [START ON 12/23/2022] magnesium hydroxide, 30 mL, Oral, Daily metoprolol tartrate, 12.5 mg, Oral, BID mupirocin, , Nasal, BID pantoprazole, 40 mg, Oral, qAM AC polyethylene glycol (PEG) 3350, 17 g, Oral, Daily rosuvastatin, 40 mg, Oral, Daily senna-docusate sodium, 2 tablet, Oral, Nightly Continuous Infusions:amiodarone, 1 mg/min Followed by amiodarone, 0.5 mg/min PRN Meds:PRN medications: albumin human, calcium gluconate, dextrose, dextrose, glucagon (rDNA), glucose, magnesium sulfate OR magnesium sulfate, ondansetron ODT OR ondansetron, potassium chloride OR potassium chloride (KCl) in 250 mL IVPB (peripheral line) OR potassium chloride (KCl) in 500 mL IVPB (peripheral line), potassium chloride CR, prochlorperazine, simethicone, tiZANidine, traMADol OR traMADol Vitals: BP 110/71 Pulse 94 Temp 37.9 ?C (100.3 ?F) (Temporal) Resp 20 Ht 1.803 m (5' 11) Wt 105 kg (232 lb 2.3 oz) SpO2 98% PF 55 L/min BMI 32.38 kg/m? BLOOD PRESSURE RANGE: Systolic (24hrs), Av , Min:99 , Max:145 ; Diastolic (24hrs), Av, Min:61, Max:84 24HR INTAKE/OUTPUT: Intake/Output Summary (Last 24 hours) at 12/22/2022 1607 Last data filed at 12/22/2022 1200 Gross per 24 hour Intake 1914 ml Output 1815 ml Net 99 ml Physical exam: General: NAD, alert Chest: bilateral vesicular breath sounds Cardiac: S1, S2 Abdomen: soft SKIN: dry Extremities: no lower extremity edema Data: Labs: Recent Labs 12/20/22 1242 12/21/22 0012 12/22/22 0127 WBC 7.3 10.3 11.6* HGB 10.2* 10.8* 10.8* HCT 31.0* 31.4* 32.1* MCV 88.4 86.8 87.5 PLT 87* 103* 107* Recent Labs 12/20/22 1242 12/21/22 0012 12/22/22 0127 NA 139 137 134* K 4.5 4.6 4.2 CL 111* 110* 107 CO2 21* 18* 22 GLUCOSE 128* 125* 125* PHOS 3.1 -- -- MG 3.2* 2.4* 2.4* BUN 21* 22* 23* CREATININE 1.41* 1.57* 1.36* Ionized Calcium: No components found for: IONCA Magnesium: Lab Results Component Value Date MG 2.4 (H) 12/22/2022 Phosphorus: Lab Results Component Value Date PHOS 3.1 12/20/2022 U/A: No results found for: NITRITE, COLORU, PHUR, TRICHOMONAS, YEAST, BACTERIA, CLARITYU, SPECGRAV, LEUKOCYTESUR, UROBILINOGEN, BILIRUBINUR, BLOODU, GLUCOSEU, KETONESU, AMORPHOUS Urine Culture: No components found for: CURINE Blood Culture: No components found for: CBLOOD, CFUNGUSBL Blood Culture from Central Line: No components found for: CBLOODLN Normal [facility] Progress Note ----- ----- Attestation signed by Octavia Wesley MD at 12/22/2022 11:04 AM I have personally performed a [id number] diagnostic evaluation on this patient on date of service 12/22/22. History, labs, imaging studies, and electronic medical record have been reviewed by me. This note documented by the []warehouse unloader [x]LUCHO reflects my history, exam, and medical decision making. I have reviewed and agree with the care plan. Changes were made in the orders as necessary. ROS documentation was reviewed and negative unless otherwise stated in HPI. Additional pertinent interval history, ROS, and physical exam findings: Complains of nausea, headache and intolerance to opiates. On 3lpm CXR personally reviewed- improved, stable post op changes., Assessment: MV CAD s.p. CABG CKD stage 3 Post op pulmonary management, normal post OP course, extubated in window HTN Dyslipidemia Acute blood loss anemia Obesity, Bmi 32 Plan: Remove chest tubes Start GDMT- BB metoprolol 12.5 BID OOB PT work Optimize pain control and bowel regimen Pulm hygeine, IS, OOB, acapella, wean off oxygen ----- Cardiothoracic Surgery/CCM Progress Note PATIENT NAME: Jesus Alberto Guevara Jr. 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 Today he was transferred from [facility] due to a positive stress test with inferior WMA, EKG changes, t-wave inversions in the inferior leads. 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 His EF was 75% on LV gram and during the stress test was measured at 65% - Normal LVEDP. He does have CKD baseline creat of 1.42. Other labs are unremarkable. He did not get loaded with P2Y12 therapy at [place], he is on BB, asa, statin and has a PMH of stenting 10 years ago, HTN, HLD. Did have a TIA after quitting ASA at one time. He is a former pipe-smoker and occasionally uses ETOH. He elected for CABG x [address] Nickerson - His EF is preserved and no significant Valve disease. He consented and went to surgery today and had CABG x 4. Surgery/Procedure: 12/20/22: Dr. Nickerson- CABG x4 Interval History: 12/22/22, POD# 02. Afebrile, NSR on tele, BP stable, on 3L NC. [place] and art line removed yesterday. Creatinine trending down. Patient having intermittent nausea, has not had BM. Pain tolerable. No acute issues overnight. Review of Systems Constitutional: Negative for chills, diaphoresis and fever. Respiratory: Negative for cough, shortness of breath and wheezing. Cardiovascular: Positive for chest pain. Negative for palpitations and leg swelling. Gastrointestinal: Positive for abdominal distention and nausea. Negative for abdominal pain and vomiting. Neurological: Negative for dizziness, syncope and light-headedness. Objective: CT output cc/24hrs: 370 (310/60) UO cc/24hrs: 820 Vitals: BP: 116/72, MAP (mmHg): 85, BP Method: Automatic Heart Rate: 76 Resp: 16 Temp: 37.1 ?C (98.8 ?F), Temp Source: Temporal BMI (Calculated): 32.39 BMP: Recent Labs 12/20/22 1242 12/21/22 0012 12/22/22 012 NA 139 137 134* K 4.5 4.6 4.2 CL 111* 110* 107 CO2 21* 18* 22 BUN 21* 22* 23* CREATININE 1.41* 1.57* 1.36* CALCIUM 8.4 7.9* 8.0* MG 3.2* 2.4* 2.4* PHOS 3.1 -- -- CBC: Recent Labs 12/20/222 12/21/22 0012 12/22/22 0127 WBC 7.3 10.3 11.6* HGB 10.2* 10.8* 10.8* HCT 31.0* 31.4* 32.1* PLT 87* 103* 107* MCV 88.4 86.8 87.5 RDW 13.6 13.7 14.4 INR: Recent Labs 12/20/222 12/21/22 0012 12/22/22 0127 INR 1.3* 1.1 1.1 Physical Exam Vitals reviewed. Constitutional: General: He is not in acute distress. Appearance: He is not ill-appearing or diaphoretic. Cardiovascular: Rate and Rhythm: Normal rate and regular rhythm. Pulses: Normal pulses. Pulmonary: Breath sounds: No wheezing, rhonchi or rales. Comments: Shallow breaths, diminished in bases bilaterally. Abdominal: General: There is no distension. Palpations: Abdomen is soft. Comments: Chest tubes in place. Genitourinary: Comments: Olmedo. Skin: General: Skin is warm and dry. Capillary Refill: Capillary refill takes less than 2 seconds. Findings: No bruising or lesion. Comments: MSI well approximated. No redness, warmth or drainage noted. Neurological: General: No focal deficit present. Mental Status: He is alert and oriented to person, place, and time. Assessment: MVCAD Prior PCI of LAD CKD III HTN HLD Post operative Pulm Management: Normal Post-operative Course Post-operative Atrial Fibrillation: []Yes [x] No Acute blood loss anemia Plan: Patient Status: Te (more content not included)... Normal [facility] XR CHEST 1 VIEWon 12-22-2022 XR CHEST 1 VIEW Patient Name: JESUS ALBERTO GUEVARA : 1940 Exam Date/Time: 12/22/2022 05:23 Procedure: XR CHEST 1 VIEW Ordering Provider: EMERSON MATTHEW Reason For Exam: Shortness of breath CHEST RADIOGRAPH CLINICAL INDICATION: Shortness of breath TECHNIQUE: AP COMPARISON: 12/21/2022 chest radiograph FINDINGS: Patient status post median sternotomy. Stable left-sided chest tube. Cardiomediastinal: The cardiomediastinal silhouette is enlarged, unchanged compared to prior imaging. Lungs: Left basilar opacity which may represent small pleural effusion with associated atelectasis, superimposed infiltrate not excluded. Low lung volumes with bronchovascular congestion and questionable mild pulmonary edema. No pneumothorax. Osseous structures: No acute osseous abnormality. IMPRESSION: See findings. Report Dictated on Electronically Signed By: Pineda Gonsales Electronically Signed Date/Time: 12/22/2022 9:31 AM EDT [facility] XR Chest Single viewon 12-22 See findings. Report Dictated on Electronically Signed By: Pineda Gonsales Electronically Signed Date/Time: 12/22/2022 9:31 AM EDT [facility] Patient Name: JESUS ALBERTO GUEVARA : 1940 Exam Date/Time: 12/22/2022 05:23 Procedure: XR CHEST 1 VIEW Ordering Provider: EMERSON MATTHEW Reason For Exam: Shortness of breath CHEST RADIOGRAPH CLINICAL INDICATION: Shortness of breath TECHNIQUE: AP COMPARISON: 12/21/2022 chest radiograph FINDINGS: Patient status post median sternotomy. Stable left-sided chest tube. Cardiomediastinal: The cardiomediastinal silhouette is enlarged, unchanged compared to prior imaging. Lungs: Left basilar opacity which may represent small pleural effusion with associated atelectasis, superimposed infiltrate not excluded. Low lung volumes with bronchovascular congestion and questionable mild pulmonary edema. No pneumothorax. Osseous structures: No acute osseous abnormality. [facility] Pineda Gonsales MD - 12/22/2022 Patient Name: JESUS ALBERTO GUEVARA : [address] [facility]#: [id number] Exam Date/Time: 12/22/2022 05:23 Procedure: XR CHEST 1 VIEW Ordering Provider: EMERSON MATTHEW Reason For Exam: Shortness of breath CHEST RADIOGRAPH CLINICAL INDICATION: Shortness of breath TECHNIQUE: AP COMPARISON: 12/21/2022 chest radiograph FINDINGS: Patient status post median sternotomy. Stable left-sided chest tube. Cardiomediastinal: The cardiomediastinal silhouette is enlarged, unchanged compared to prior imaging. Lungs: Left basilar opacity which may represent small pleural effusion with associated atelectasis, superimposed infiltrate not excluded. Low lung volumes with bronchovascular congestion and questionable mild pulmonary edema. No pneumothorax. Osseous structures: No acute osseous abnormality. IMPRESSION: See findings. Report Dictated on Electronically Signed By: Pineda Gonsales Electronically Signed Date/Time: 12/22/2022 9:31 AM EDT [facility] [employer] Radiology Study observation (narrative) [email or web address] XR Chest Single viewOrdered By: Pineda Gonsales on 12-22-2022 [email or web address] Work Phone: Basic metabolic 1998 panelon 12-21-2022 Anion gap [Moles/Vol] 9 mmol/L 3 - 13 mmol/L [employer] Calcium [Mass/Vol] 7.9 mg/dL Low 8.4 - 10. 4 mg/dL [employer] Chloride [Moles/Vol] 110 mmol/L High 98 - 10 7 mmol/L [facility] [employer] CO2 [Moles/Vol] 18 mmol/L Low 22 - 30 mmol/L [facility] Creatinine [Mass/Vol] 1.57 mg/dL High 0.66 - 1.25 mg/dL [facility] GFR/1.73 sq M.predicted MDRD (S/P/Bld) [Vol rate/Area] 44.0 mL/min/{1.73_m2} Low - PINF [facility] Comment on above: Calculation based on the Chronic Kidney Disease Epidemiology Collaboration (CKD-EPI) equation refit without adjustment for race Glucose [Mass/Vol] 125 mg/dL High 70 - 100 mg/dL [facility] Potassium [Moles/Vol] 4.6 mmol/L 3.5 - 5.1 mmol/L [facility] Sodium [Moles/Vol] 137 mmol/L 135 - 145 mmol/L [facility] Urea nitrogen [Mass/Vol] 22 mg/dL High 9 - 20 mg/dL [facility] CBC panel Auto (Bld)Ordered By: Dave Long on 12-21-2022 Erythrocyte distribution width (RBC) [Ratio] 13.7 % 11.5 - 14.5 % [facility] Hematocrit (Bld) [Volume fraction] 31.4 % Low 40.0 - 52.0 % [facility] Hemoglobin (Bld) [Mass/Vol] 10.8 g/dL Low 13.0 - 18.0 g/dL [facility] Interpretation and review of laboratory results Abnormal [facility] MCH (RBC) [Entitic mass] 29.7 pg 26.0 - 34.0 pg [facility] MCHC (RBC) [Mass/Vol] 34.2 % 32.0 - 36.0 % [facility] MCV (RBC) [Entitic vol] 86.8 fL 80.0 - 98.0 fL [facility] Platelet mean volume (Bld) [Entitic vol] 8.5 fL 7.4 - 12.4 fL [facility] Platelets (Bld) [#/Vol] 103 10*3/uL Low 140 - 440 10*3/uL [facility] RBC (Bld) [#/Vol] 3.62 10*6/uL Low 4.40 - 5.90 10*6/uL [facility] WBC (Bld) [#/Vol] 10.3 10*3/uL 3.6 - 10.7 10*3/uL [facility] Calcium.ionized [Moles/Vol]O rdered By: Felix Smallwood on 12-21-2022 Calcium.ionized (Bld) [Moles/Vol] 3.50 mg/dL Low 4.30 - 5.20 mg/dL [facility] Interpretation and review of laboratory results Abnormal [facility] PH, IONIZED CALCIUM 7.44 7.31 - 7.46 [facility] ECG 12-LEADon 12-21-2022 ECG 12-LEAD IMPRESSION: Sinus rhythm Electronically Signed On 12-21-2022 10:36:38 EDT by Coleman Rosales Normal [facility] ED Nursing Noteon 12-21-2022 ED Nursing Note EE: Planned CABG 12/20 Normal [facility] Laboratory - Chemistry and C hemistry - challengeon 12-21-2022 Glucose [Mass/Vol] 114 mg/dL High 70 - 100 mg/dL [facility] Glucose [Mass/Vol] 119 mg/dL High 70 - 100 mg/dL [facility] Glucose [Mass/Vol] 125 mg/dL High 70 - 100 mg/dL [facility] Glucose [Mass/Vol] 142 mg/dL High 70 - 100 mg/dL [facility] Glucose [Mass/Vol] 109 mg/dL High 70 - 100 mg/dL [facility] Magnesium [Mass/Vol] 2.4 mg/dL High 1.6 - 2 .3 mg/dL [facility] Glucose [Mass/Vol] 133 mg/dL High 70 - 100 mg/dL [facility] Laboratory - Coagulationon 0 12-21-2022 aPTT Coag (PPP) [Time] 31.6 s High 20.0 - 30.5 s [facility] INR Coag (PPP) [Relative time] 1.1 {INR} 0.9 - 1.1 [facility] Comment on above: Recommended Anticoag ulant Therapy: SEE BELOW ----- INR of 2.0 - 3.0 : - Prophylaxis of Venous Thrombosis (high-risk surgery) - Treatment of Venous Thrombosis - Treatment of Pulmonary Embolism (Includes tissue heart valves, Acute Myocardial Infarction to prevent systemic embolism, Valvular Heart Disease, and Atrial Fibrillation) ----- INR of 2.5 - 3.5 : - Mechanical Prosthetic Valves (high risk) - If oral anticoagulant therapy is used to prevent Myocardial Infarction PT Coag (Bld) [Time] 11.6 s 9.0 - 1 2.0 s [facility] [employer] No Panel Informationon 12-21 Interpretation and review of laboratory results Abnormal [facility] Performed by: [facility], [address] [place] [id number] CLIA ID: [id number] [facility] Interpretation and review of laboratory results Abnormal [facility] Performed by: [facility], [address] [place] [id number] CLIA ID: [id number] [facility] Sinus rhythm Electronically Signed On 12-21-2022 10:36:38 EDT by Coleman Daley MD - 12/21/2022 IMPRESSION: Sinus rhythm Electronically Signed On 12-21-2022 10:36:38 EDT by Coleman Rosales [facility] Interpretation and review of laboratory results Abnormal [facility] Performed by: [facility], [address] [place] [id number] CLIA ID: [id number] [facility] [employer] [facility] Interpretation and review of laboratory results Abnormal [facility] Performed by: [facility], [address] [place] [id number] CLIA ID: [id number] [facility] Interpretation and review of laboratory results Abnormal [facility] Performed by: [facility], [address] [place] [id number] CLIA ID: [id number] [facility] Interpretation and review of laboratory results Abnormal [facility] Interpretation and review of laboratory results Abnormal [facility] Interpretation and review of laboratory results Abnormal [facility] Performed by: [facility], [address] [place] [id number] CLIA ID: [id number] [facility] No Panel InformationOrdered By: Coleman Rosales on 12-21-2022 P Thida 25 degrees [facility] Work Phone: MN Interval 207 ms [facility] Work Phone: QRS Thida 63 degrees [facility] Work Phone: QRSD Interval 94 ms [facility] Work Phone: QT Interval 375 ms [email or web address] Work Phone: QTC Interval 427 ms [email or web address] Work Phone: T Wave Thida 36 degrees [email or web address] Work Phone: [email or web address] Work Phone: Progress Noteon 12-21-2022 Progress Note Occupational Therapy Facility/Department: [facility] Occupational Therapy Initial Evaluation NAME: Jesus Alberto Guevara Jr. : 1940 Date of Service: 12/21/2022 Discharge Recommendations: IP Rehab (may progress to home) Assessment REQUIRES OT FOLLOW-UP: Yes Performance deficits / Impairments: Decreased functional mobility , Decreased ADL status, Decreased ROM, Decreased strength, Decreased safe awareness, Decreased cognition, Decreased endurance, Decreased balance, Decreased posture Assessment: OT eval completed. Pt presents with above deficits limiting functional indep. Pt is a falls and safety risk due to weakness, balance and cognition. Pt is currently not safe to retur nhome and recommend IP REHAB. Pt may progress t ohome with assist . Cont OT to maximize indep and sfatey with ADL and mobility for safe discharge. Prognosis: Good Decision Making: Low Complexity Exam: [facility] Activity Tolerance Activity Tolerance: Patient limited by fatigue, Patient limited by pain Patient Diagnosis(es): The encounter diagnosis was CAD in [place] artery. has no past medical history on file. has no past surgical history on file. Restrictions Restrictions/Precautions Restrictions/Precautions: General Precautions, Surgical Protocols, Fall Risk Required Braces or Orthoses?: No Position Activity Restriction Sternal Precautions: No Pushing, No Pulling, 10# Lifting Restrictions Sternal Precautions: YES Other position/activity restrictions: chest tube x2, olmedo, PIV, tele. 2.5 O2 NC Vision/Hearing Vision: Within Functional Limits Vision Exceptions: Wears glasses for reading Hearing: Functional/adequate for paticipation in therapy Cognition/Orientation Overall Cognitive Status: Exceptions Arousal/Alertness: Delayed responses to stimuli Following Commands: Follows one step commands with repetition, Follows one step commands with increased time Attention Span: Attends with cues to redirect Memory: Decreased short term memory, Decreased recall of recent events Safety Judgement: Decreased awareness of need for assistance, Decreased awareness of need for safety Insights: Decreased awareness of deficits Initiation: Requires cues for some Sequencing: Requires cues for some Cognition Comment: pt did not recall sternal precautions from PT session earlier today. + confusion this date and pt states I feel confused right now Overall Orientation Status: Within Functional Limits (except exact day) Subjective General Chart Reviewed: Yes Patient Assessed for Rehabilitation Services: Yes Family / Caregiver Present: No Diagnosis: Pt admitted with CAD, S/P CABG 12/20/22 Subjective Subjective: Pt reclined in bed, agreeable to OT eval. General Comments Comments: R hand dominant Patient Stated Goal: to go home Pain Assessment Pain Assessment: 0-10 Pain Score: 9 Pain Type: Acute pain Pain Location: Incision, Sternum Pain Orientation: Mid Pain Descriptors: Aching, Discomfort Pain Interventions: Repositioned, Ambulation/increased activity Social/Functional History Social/Functional History Lives With: Spouse Type of Home: (converted barn) Home Layout: Two level (bed on 2nd floor, bath on 1st floor, full flight with rail to 2nd.) Bathroom Shower/Tub: Walk-in shower Bathroom Toilet: Standard ADL Assistance: Independent Homemaking Assistance: Independent Homemaking Responsibilities: Yes Ambulation Assistance: Independent With device?: No Transfer Assistance: Independent Active Magazine Supervisor: Yes Additional Comments: can help Objective Gross Assessment: Yes AROM: Generally decreased, functional (3/4 shldr, distal WFL) PROM: (same as AROM) Strength: (shldr NT but at least 3-/5, distal at least 4-/5) Coordination: Generally decreased, functional Tone: Normal Sensation: Intact Observation/Palpation Posture: Fair Observation: sternal incision intact Edema: Mild edema in hands Balance Sitting Balance: Stand by assistance Standing Balance: Minimal assistance Functional Mobility Assist Level: Minimal assistance Functional Mobility Comments: Side steps to R with min assist toward HOB with therapist in front. ADL LE Dressing: Dependent/Total Additional Comments: Dependent to don slipper socks. Estimate dependent toileting, max assist bathing, mod assist UE ADL and min assist grooming. Bed mobility Supine to Sit: Moderate assistance Sit to Supine: Maximum assistance Scooting: Minimal assistance Comment: HOB elevated Transfers Sit to stand: Minimal assistance Stand to sit: Minimal assistance Transfer Comments: cues to follow sternal precautions Plan Times per Week: 5x Plan Weeks: 4 Current Treatment Recommendations: Strengthening, ROM, Balance Training, Functional Mobility Training, Endurance Training, Gait Training, Pain Management, Safety Education & Training, Patient/Caregiver Education & Training, Equipment Evalu (more content not included)... Normal [facility] Progress Note [facility] [place] [address] [place] [address] Progress Note Assessment: Jesus Alberto Guevara Jr. is a 82 y.o. male with PMH including HTN, HLD, TIA, who presented from [facility] due to positive stress test with inferior WMA, EKG changes, had LHC done which showed MVCAD. Nephrology consulted for CKD. CKD- stage 3, recently Scr stable ~1.57 mg/dl -non-oliguric recently -S/P CABG doing well -Insulin gtt paused on assessment -Currently no pressors are on HTN- BP stable Volume- no overt fluid overload Acid/base- AGMA Plan: -monitor renal function, electrolytes -start LR 50 ml/hr for 12 hrs Tommie Armenta MD 12/21/2022 11:58 AM ----- ----- ----- Subjective: Patient seen and examined today. We are following this patient for S/P CABG x [address] P[address] Nickerson - The intra -op phase was uneventful Sitting on chair NSR on tele, BP stable, extubated post-operatively and now on 5L NC. Complains of back pain/spasms this AM. Scheduled Meds:acetaminophen, 1,000 mg, Oral, q6h aspirin, 81 mg, Oral, Daily ceFAZolin, 2,000 mg, IntraVENous, q8h chlorhexidine, 15 mL, Mouth/Throat, BID heparin, 5,000 Units, SubCUTAneous, 2 times per day insulin lispro, 0-6 Units, SubCUTAneous, TID WC mupirocin, , Nasal, BID [START ON 12/22/2022] pantoprazole, 40 mg, Oral, qAM AC polyethylene glycol (PEG) 3350, 17 g, Oral, Daily rosuvastatin, 40 mg, Oral, Daily senna-docusate sodium, 2 tablet, Oral, Nightly Continuous Infusions:lactated ringers, 250 mL sodium chloride, 20 mL/hr, Last Rate: 20 mL/hr (12/20/22 1330) PRN Meds:PRN medications: albumin human, calcium gluconate, dextrose, dextrose, glucagon (rDNA), glucose, HYDROmorphone OR HYDROmorphone, lactated ringers, magnesium hydroxide, magnesium sulfate OR magnesium sulfate, methocarbamol, ondansetron ODT OR ondansetron, oxyCODONE OR oxyCODONE, potassium chloride OR potassium chloride (KCl) in 250 mL IVPB (peripheral line) OR potassium chloride (KCl) in 500 mL IVPB (peripheral line), potassium chloride CR Vitals: BP 96/66 Pulse 76 Temp 36.9 ?C (98.5 ?F) (Temporal) Resp 22 Ht 1.803 m (5' 11) Wt 105 kg (232 lb 2.3 oz) SpO2 96% PF 55 L/min BMI 32.38 kg/m? BLOOD PRESSURE RANGE: Systolic (24hrs), Av , Min:96 , Max:125 ; Diastolic (24hrs), Av, Min:50, Max:67 24HR INTAKE/OUTPUT: Intake/Output Summary (Last 24 hours) at 12/21/2022 1158 Last data filed at 12/21/2022 0914 Gross per 24 hour Intake 1450 ml Output 2820 ml Net -1370 ml Physical exam: General: NAD, alert Chest: bilateral vesicular breath sounds Cardiac: S1, S2 Abdomen: soft SKIN: dry Extremities: no lower extremity edema Data: Labs: Recent Labs 12/20/22 0006 12/20/22 1241 12/20/22 1242 12/21/22 0012 WBC 7.3 -- 7.3 10.3 HGB 14.6 10.8 10.2* 10.8* HCT 42.9 -- 31.0* 31.4* MCV 86.1 -- 88.4 86.8 PLT 154 -- 87* 103* Recent Labs 12/20/22 0006 12/20/22 1242 12/21/22 0012 NA 138 139 137 K 4.1 4.5 4.6 CL 110* 111* 110* CO2 26 21* 18* GLUCOSE 93 128* 125* PHOS -- 3.1 -- MG -- 3.2* 2.4* BUN 23* 21* 22* CREATININE 1.58* 1.41* 1.57* Ionized Calcium: No components found for: IONCA Magnesium: Lab Results Component Value Date MG 2.4 (H) 12/21/2022 Phosphorus: Lab Results Component Value Date PHOS 3.1 12/20/2022 U/A: Lab Results Component Value Date COLORU Light Yellow 12/18/2022 CLARITYU Clear 12/18/2022 UROBILINOGEN Normal 12/18/2022 BLOODU Negative 12/18/2022 GLUCOSEU Normal 12/18/2022 KETONESU Negative 12/18/2022 Urine Culture: No components found for: CURINE Blood Culture: No components found for: CBLOOD, CFUNGUSBL Blood Culture from Central Line: No components found for: CBLOODLN Normal [facility] Progress Note Physical Therapy Facility/Department: U Physical Therapy Initial Evaluation NAME: Jesus Alberto Guevara : 1940 Date of Service: 12/21/2022 Discharge Recommendations: IP Rehab (Pt hope to progress to home going with assist as needed.) PT Equipment Recommendations Other: tbd Assessment Requires PT Follow-Up: Yes Assessment: The pt is hospitalized s/p CABG secondary to CAD. He will benefit from therapy for the listed impairments and to improve his overall functional capacity. he is a fall risk a this time secondary to weakness, pain, and decreased endurance. Min assist was required for transfers and ambulation and rest breaks were needed with all activity secondary to pain and endurance limitations. Sternal precautions were reviewed and P and C exercises introduced as well as IS. Pt's hope is to progress to home going but if he left at this time IP REHAB would be recommended. If pt does return home then home PT and cardiopulmonary rehab would be beneficial. Performance Deficits/Impairments: Decreased functional mobility , Decreased endurance, Increased pain, Decreased ADL status, Decreased strength, Decreased posture, Decreased ROM Treatment Diagnosis: limited endurance Decision Making: Medium Complexity Barriers to Learning: none Treatment Initiated : one FA Barriers to Learning: none Activity Tolerance Activity Tolerance: Patient limited by endurance, Patient limited by pain Patient Diagnosis(es): The encounter diagnosis was CAD in [place] artery. has no past medical history on file. has no past surgical history on file. Restrictions Restrictions/Precautions Restrictions/Precautions: General Precautions, Surgical Protocols Required Braces or Orthoses?: No Position Activity Restriction Sternal Precautions: No Pushing, No Pulling, 10# Lifting Restrictions Sternal Precautions: sternal Other position/activity restrictions: chest tube, olmedo, catheter, PIV Vision/Hearing Vision: Impaired Vision Exceptions: Wears glasses for reading Hearing: Functional/adequate for paticipation in therapy Cognition/Orientation Overall Cognitive Status: WFL Overall Orientation Status: Within Functional Limits Subjective General Chart Reviewed: Yes Patient Assessed for Rehabilitation Services: Yes Family / Caregiver Present: Yes Diagnosis: CAD, s/p CABG Follows Commands: Within Functional Limits Subjective Subjective: Pt sitting up in chair and agreed to PT. Pt repoted elevated incisional pain but did not rate it. Pt also reported feeling foggy/slow with his thinking. 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 Objective AROM RLE (degrees) RLE AROM: WFL AROM LLE (degrees) LLE AROM : WFL AROM RUE (degrees) RUE General AROM: shoulder elevatioin observed to near 100 degrees visually and elbow and wrist is grossly WFL AROM LUE (degrees) LUE General AROM: shoulder elevation observed to 2/3, elbow and wrist grossly WFL Strength RLE Comment: 5/5 hip flexion, abd, add, quad, and hamstring, and DF and PF Strength LLE Comment: 5/5 hip flexion, abd, add, quad, and hamstring, and DF and PF Strength RUE Comment: 3/5 observed in available range Strength LUE Comment: 3/5 observed in available range Tone RLE RLE Tone: Normotonic Tone LLE LLE Tone: Normotonic Sensation Overall Sensation Status: (no numbness or tingling endorsed) Bed mobility Comment: NT pt up in chair Transfers Sit to Stand: Minimal Assistance Stand to sit: Minimal Assistance Comment: from chair 2 trials with PT, cues for sternal precautions. Ambulation Ambulation: Yes Ambulation 1 Surface 1: Level tile Device 1: (Nezzi) Assistance 1: Minimum assistance Quality of Gait Comment 1: decreased velocity, decreased step length, head down, flexed posture, Distance (ft) 1: 20 ft x2 Comments 1: pt reported pain and overall limited endurance. Balance Posture: Fair Sitting - Static: Good, - Sitting - Dynamic: Fair Standing - Static: Fair Standing - Dynamic: Fair Comments: Pt did sit at edge of chair unsupported with pillow for sternal precautions and was able to sit without use of a back rest for several minutes to perform the first 3 P+C exercises. Pt was able to stand with use of a Nezzie for one to two minutes with cues for sternal precautions and posture. Other exercises Other exercises?: Yes Other exercises 1: P and C exercises 1-3 for 5-6 reps, pain limited this date Other exercises 2: IS for 2 reps to 500 m (more content not included)... Normal [facility] Progress Note ----- ----- Attestation signed by Greg Garcia MD at 12/21/2022 2:34 PM I performed a history and physical examination of the patient. I have reviewed the patient's chart including pertinent history, medications, labs, radiology, and other reports. I reviewed the resident/LUCHO's note, agree with the documented findings and plan of care (with modifications noted if any), and discussed the management plan. I have performed a substantive portion of the the medical decision making. Pt slightly confused from pain medications. at bedside. Has not eaten much. Only water and a little applesauce. No n/v. BG stable on minimal insulin from drip (0-1 unit/hr). BP 96/66 Pulse 76 Temp 36.6 ?C (97.9 ?F) (Temporal) Resp 22 Ht 5' 11 (1.803 m) Wt 232 lb 2.3 oz (105 kg) SpO2 96% PF 55 L/min BMI 32.38 kg/m? Somnolent, not in distress, on O2 per NC, RRR, chest incision intact, decreased breath sounds, +chest tubes, abdomen soft, distended, non-tender, no edema, +bandage on LLE, oriented X1. Dx: Stress hyperglycemia. CAD s/p CABG. CKD 3. Plan: - will transition to subcutaneous insulin with Humalog low dose SS TID - continue blood glucose monitoring - discussed goals of therapy with pt and - patient will unlikely require any pharmacotherapy on discharge for hyperglycemia - will follow Total time 20 minutes which include review of records, counseling, management, and coordination of care as documented in note. ----- Department of Internal Medicine Division of Endocrinology, Diabetes, & Metabolism Endocrinology Note Patient Name: Jesus Alberto Guevara JrAnne-Marie : 1940 AGE: 82 y.o. Room/Bed: T1-111/T1-111 A Admission Date: 12/18/2022 Visit Date: 12/21/2022 Reason for Endocrine Consult: post op heart Provider/Team Requesting Consult: CTS PCP: JAZLYN ZAYAS, DO Outpt Safety Compliance Specialist: No ASSESSMENT: Stress hyperglycemia Cabg CAD/HTN/HLD KASSANDRA on CKD PLAN: Stop insulin gtt Tx to humalog low scale only meals ICU goal <180 GMF goal <150 POCT ACHS Hypoglycemia per protocol Carb controlled diet ANTICIPATED ENDOCRINE HOME GOING RECOMMENDATIONS: Optimized for Discharge from Endocrine standpoint: No Home Going Endocrine Rx Recommendations-- none Outpt Follow Up-- pcp SUBJECTIVE/HPI: CHIEF COMPLAINT: No chief complaint on file. Cabg No noted hx of diabetes noted Bgl 133-125-109 Resting in chair working with PT Awake VSS, 02 NC C/o incisional pain - just had pain meds CT in place Family in room Denies hx of dm Ate small breakfast Does have some NV from ambulating w PT Spoke to nursing and CTS Insulin gtt off most of night- on now at 1u/hr No pressors on Type of DM: na Onset of DM: na Home DM Medication Regimen: na DM control (last A1c/glucose data): Lab Results Component Value Date HGBA1C 5.4 12/18/2022 Review of Systems All other systems reviewed and are negative. ROS negative except for those mentioned in HPI. OBJECTIVE: Vitals: 12/21/22 0700 12/21/22 0723 12/21/22 0800 12/21/22 0900 BP: 105/67 96/66 BP Location: Patient Position: Pulse: 77 77 76 Resp: 24 22 Temp: 36.9 ?C (98.5 ?F) TempSrc: Temporal SpO2: 97% 97% 96% Weight: Height: 5' 11 (1.803 m) PF: Physical Exam Vitals and nursing note reviewed. Constitutional: General: He is awake. He is not in acute distress. Appearance: He is ill-appearing. He is not toxic-appearing. HENT: Head: Normocephalic and atraumatic. Cardiovascular: Rate and Rhythm: Normal rate. Pulmonary: Effort: Pulmonary effort is normal. Abdominal: Palpations: Abdomen is soft. Skin: General: Skin is warm and dry. Comments: Intact incision Neurological: Mental Status: He is alert and oriented to person, place, and time. Psychiatric: Mood and Affect: Mood normal. Behavior: Behavior is cooperative. 24 hour intake/output: Intake/Output Summary (Last 24 hours) at 12/21/2022 0944 Last data filed at 12/21/2022 0914 Gross per 24 hour Intake 2902 ml Output 3120 ml Net -218 ml Diet: Adult diet Regular; 5 carb choices (75 gm/meal) Medications (as per EMR): HomeMeds: @MEDHMEDS@ Scheduled Meds:acetaminophen, 1,000 mg, Oral, q6h aspirin, 81 mg, Oral, Daily ceFAZolin, 2,000 mg, IntraVENous, q8h chlorhexidine, 15 mL, Mouth/Throat, BID heparin, 5,000 Units, SubCUTAneous, 2 times per day mupirocin, , Nasal, BID [START ON 12/22/2022] pantoprazole, 40 mg, Oral, qAM AC polyethylene glycol (PEG) 3350, 17 g, Oral, Daily rosuvastatin, 40 mg, Oral, Daily senna-docusate sodium, 2 tablet, Oral, Nightly Continuous Infusions:insulin regular, 1-50 Units/hr, Last Rate: Stopped (12/21/22 0914) lactated ringers, 250 mL sodium chloride, 20 mL/hr, Last Rate: 20 mL/hr (12/20/22 1330) PRN Med (more content not included)... Normal [facility] Progress Note ----- ----- Attestation signed by Octavia Wesley MD at 12/21/2022 9:19 AM (Updated) I have personally performed a [id number] diagnostic evaluation on this patient on date of service 12/21/22. History, labs, imaging studies, and electronic medical record have been reviewed by me. This note documented by the []warehouse unloader [x]LUCHO reflects my history, exam, and medical decision making. I have reviewed and agree with the care plan. Changes were made in the orders as necessary. ROS documentation was reviewed and negative unless otherwise stated in HPI. Additional pertinent interval history, ROS, and physical exam findings: Off all drips, up to chair. Doing well. Assessment: MV CAD s.p. CABG CKD stage 3 Post op pulmonary management, normal post OP course, extubated in window HTN Dyslipidemia Acute blood loss anemia Obesity, Bmi 32 Plan: De-line Start GDMT OOB PT work Optimize pain control Pulm hygeine, IS, OOB, acapella, wean off oxygen ----- Cardiothoracic Surgery/CCM Progress Note PATIENT NAME: Jesus Alberto Guevara Jr. 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 Today he was transferred from [facility] due to a positive stress test with inferior WMA, EKG changes, t-wave inversions in the inferior leads. 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 His EF was 75% on LV gram and during the stress test was measured at 65% - Normal LVEDP. He does have CKD baseline creat of 1.42. Other labs are unremarkable. He did not get loaded with P2Y12 therapy at [place], he is on BB, asa, statin and has a PMH of stenting 10 years ago, HTN, HLD. Did have a TIA after quitting ASA at one time. He is a former pipe-smoker and occasionally uses ETOH. He elected for CABG x [address] Nickerson - His EF is preserved and no significant Valve disease. He consented and went to surgery today and had CABG x 4. Surgery/Procedure: 12/20/22: Dr. Nickerson- CABG x4 Interval History: 12/21/22, POD# 01: Afebrile, NSR on tele, BP stable, extubated post-operatively and now on 5L NC. Complains of back pain/spasms this AM. A-line: Arterial Line BP 1: 135/56 Invasive Hemodynamic Monitoring PAP: 35/11 PAP (Mean): 20 mmHg CVP (mmHg): 8 mmHg CO (L/min): 6.16 L/min CI (L/min/m2): 2.77 L/min/m2 SVR (dyne*sec)/cm5: 935 (dyne*sec)/cm5 Review of Systems Constitutional: Negative for chills, diaphoresis and fever. Respiratory: Negative for cough, shortness of breath and wheezing. Cardiovascular: Positive for chest pain. Negative for palpitations and leg swelling. Gastrointestinal: Negative for abdominal distention, abdominal pain, nausea and vomiting. Neurological: Negative for dizziness, syncope and light-headedness. Objective: CT output cc/24hrs: 645 UO cc/24hrs: 1,560 Vitals: BP: 125/51, MAP (mmHg): 71, BP Method: Arterial line Heart Rate: 78 Resp: 26 Temp: 37.3 ?C (99.1 ?F), Temp Source: Core BMI (Calculated): 31.39 BMP: Recent Labs 12/20/22 0006 12/20/22 1242 12/21/22 0012 NA 138 139 137 K 4.1 4.5 4.6 CL 110* 111* 110* CO2 26 21* 18* BUN 23* 21* 22* CREATININE 1.58* 1.41* 1.57* CALCIUM 8.2* 8.4 7.9* MG -- 3.2* 2.4* PHOS -- 3.1 -- CBC: Recent Labs 12/20/22 0006 12/20/22 1241 12/20/22 1242 12/21/22 0012 WBC 7.3 -- 7.3 10.3 HGB 14.6 10.8 10.2* 10.8* HCT 42.9 -- 31.0* 31.4* PLT 154 -- 87* 103* MCV 86.1 -- 88.4 86.8 RDW 13.6 -- 13.6 13.7 INR: Recent Labs 12/20/22 1242 12/21/22 0012 INR 1.3* 1.1 Physical Exam Vitals reviewed. Constitutional: General: He is not in acute distress. Appearance: He is not ill-appearing or diaphoretic. Cardiovascular: Rate and Rhythm: Normal rate and regular rhythm. Pulses: Normal pulses. Pulmonary: Breath sounds: No wheezing, rhonchi or rales. Comments: Shallow breaths, diminished in bases bilaterally. Abdominal: General: There is no distension. Palpations: Abdomen is soft. Comments: Chest tubes in place. Genitourinary: Comments: Olmedo. Skin: General: Skin is warm and dry. Capillary Refill: Capillary refill takes less than 2 seconds. Findings: No bruising or lesion. Comments: MSI well approximated. No redness, warmth or drainage noted. Neurological: General: No focal deficit present. Mental Status: He is alert and oriented to person, place, and time. Assessment: MVCAD Prior PCI of LAD CKD III HTN HLD Post operative Pulm Management: Normal Post-operative Course Post-operative Atrial Fibrillation: []Yes [x] (more content not included)... Normal [employer] [facility] Vital signsOrdered By: Coleman Rosales on 12-21-2022 Heart rate 78 /min bpm [employer] Work Phone: XR CHEST 1 VIEWon 12-21-2022 XR CHEST 1 VIEW Patient Name: JESUS ALBERTO GUEVARA : [address] [facility]#: [id number] Exam Date/Time: 12/21/2022 08:28 Procedure: XR CHEST 1 VIEW Ordering Provider: EMERSON MATTHEW Reason For Exam: Shortness of breath CHEST CLINICAL INDICATION: Shortness of breath TECHNIQUE: AP portable chest COMPARISON: Chest radiograph from 12/20/2022 FINDINGS: SUPPORT DEVICES: Right internal jugular catheter tip projects over the lower SVC. Redemonstration of a mediastinal drain and left chest tube. Enteric tube is no longer visualized. HEART AND MEDIASTINUM: Unchanged prominence of the cardiac silhouette. Calcification of the thoracic aorta. Mediastinal surgical clips. LUNGS AND PLEURA: Consolidation in the left lung base. Linear atelectasis or scarring in the left midlung. Small left pleural effusion. Small right pleural effusion. No pneumothorax is identified. OSSEOUS STRUCTURES: Median sternotomy wires. Degenerative change of the spine. Left acromioclavicular joint DJD. IMPRESSION: Small bilateral pleural effusions and consolidation in the left lung base. Report Dictated on Electronically Signed By: Jen Mandujano Electronically Signed Date/Time: 12/21/2022 8:51 AM EDT [facility] XR Chest Single viewon 12-21 1. Bibasilar atelectasis. No pneumothorax seen. Report Dictated on Electronically Signed By: Yosef Rod Electronically Signed Date/Time: 12/21/2022 10:41 PM EDT [facility] Patient Name: JESUS ALBERTO GUEVARA : 1940 Exam Date/Time: 12/21/2022 22:35 Procedure: XR CHEST 1 VIEW Ordering Provider: GARZA JOHN Reason For Exam: Chest pain, increased o2 needs SINGLE FRONTAL VIEW OF THE CHEST CLINICAL INDICATION: Chest pain, increased o2 needs TECHNIQUE: Single frontal view of the chest COMPARISON: 12/21/2022 FINDINGS: Status post sternotomy. Mild cardiac enlargement. There are low lung volumes. No vascular congestion seen. There appears to be a left basilar chest tube, correlate with history. Bibasilar atelectasis noted. No pneumothorax seen. [facility] Yosef Rod MD - 12/21/2022 Patient Name: JESUS ALBERTO GUEVARA : 1940 Exam Date/Time: 12/21/2022 22:35 Procedure: XR CHEST 1 VIEW Ordering Provider: GARZA JOHN Reason For Exam: Chest pain, increased o2 needs SINGLE FRONTAL VIEW OF THE CHEST CLINICAL INDICATION: Chest pain, increased o2 needs TECHNIQUE: Single frontal view of the chest COMPARISON: 12/21/2022 FINDINGS: Status post sternotomy. Mild cardiac enlargement. There are low lung volumes. No vascular congestion seen. There appears to be a left basilar chest tube, correlate with history. Bibasilar atelectasis noted. No pneumothorax seen. IMPRESSION: 1. Bibasilar atelectasis. No pneumothorax seen. Report Dictated on Electronically Signed By: Yosef Rod Electronically Signed Date/Time: 12/21/2022 10:41 PM EDT [facility] Radiology Study observation (narrative) [facility] Small bilateral pleu ral effusions and consolidation in the left lung base. Report Dictated on Electronically Signed By: Jen Mandujano Electronically Signed Date/Time: 12/21/2022 8:51 AM EDT [facility] [employer] Patient Name: JESUS ALBERTO GUEVARA : 1940 Exam Date/Time: 12/21/2022 08:28 Procedure: XR CHEST 1 VIEW Ordering Provider: EMERSON MATTHEW Reason For Exam: Shortness of breath CHEST CLINICAL INDICATION: Shortness of breath TECHNIQUE: AP portable chest COMPARISON: Chest radiograph from 12/20/2022 FINDINGS: SUPPORT DEVICES: Right internal jugular catheter tip projects over the lower SVC. Redemonstration of a mediastinal drain and left chest tube. Enteric tube is no longer visualized. HEART AND MEDIASTINUM: Unchanged prominence of the cardiac silhouette. Calcification of the thoracic aorta. Mediastinal surgical clips. LUNGS AND PLEURA: Consolidation in the left lung base. Linear atelectasis or scarring in the left midlung. Small left pleural effusion. Small right pleural effusion. No pneumothorax is identified. OSSEOUS STRUCTURES: Median sternotomy wires. Degenerative change of the spine. Left acromioclavicular joint DJD. [facility] Jen Mandujano M D - 12/21/2022 Patient Name: JESUS ALBERTO GUEVARA : 1940 Exam Date/Time: 12/21/2022 08:28 Procedure: XR CHEST 1 VIEW Ordering Provider: EMERSON MATTHEW Reason For Exam: Shortness of breath CHEST CLINICAL INDICATION: Shortness of breath TECHNIQUE: AP portable chest COMPARISON: Chest radiograph from 12/20/2022 FINDINGS: SUPPORT DEVICES: Right internal jugular catheter tip projects over the lower SVC. Redemonstration of a mediastinal drain and left chest tube. Enteric tube is no longer visualized. HEART AND MEDIASTINUM: Unchanged prominence of the cardiac silhouette. Calcification of the thoracic aorta. Mediastinal surgical clips. LUNGS AND PLEURA: Consolidation in the left lung base. Linear atelectasis or scarring in the left midlung. Small left pleural effusion. Small right pleural effusion. No pneumothorax is identified. OSSEOUS STRUCTURES: Median sternotomy wires. Degenerative change of the spine. Left acromioclavicular joint DJD. IMPRESSION: Small bilateral pleural effusions and consolidation in the left lung base. Report Dictated on Electronically Signed By: Jen Mandujano Electronically Signed Date/Time: 12/21/2022 8:51 AM EDT [facility] Radiology Study observation (narrative) [facility] XR Chest Single viewOrdered By: Yosef Rod on 12-21-2022 [facility] [employer] Work Phone: XR Chest Single viewOrdered By: Jen Mandujano on 12-21-2022 [facility] [employer] Work Phone: ABO and Rh group Confirm Nom (Bld)on 12-20-2022 ABO group Nom (Bld) A [facility] [employer] D Ag Ql (RBC) Positive [facility] h [facility] Basic metabolic 1998 panelon 12-20-2022 Anion gap [Moles/Vol] 7 mmol/L 3 - 13 mmol/L [facility] [employer] Calcium [Mass/Vol] 8.4 mg/dL 8.4 - 10. 4 mg/dL [facility] [employer] [employer] Chloride [Moles/Vol] 111 mmol/L High 98 - 10 7 mmol/L [facility] CO2 [Moles/Vol] 21 mmol/L Low 22 - 30 mmol/L [facility] Creatinine [Mass/Vol] 1.41 mg/dL High 0.66 - 1.25 mg/dL [facility] GFR/1.73 sq M.predicted MDRD (S/P/Bld) [Vol rate/Area] 50.1 mL/min/{1.73_m2} Low - PINF [facility] th Comment on above: Calculation based on the Chronic Kidney Disease Epidemiology Collaboration (CKD-EPI) equation refit without adjustment for race Glucose [Mass/Vol] 128 mg/dL High 70 - 100 mg/dL [facility] Potassium [Moles/Vol] 4.5 mmol/L 3.5 - 5.1 mmol/L [facility] Sodium [Moles/Vol] 139 mmol/L 135 - 145 mmol/L [facility] Urea nitrogen [Mass/Vol] 21 mg/dL High 9 - 20 mg/dL [facility] Slightly Hemolyzed. Interpret ALKALINE PHOSPHATASE, AST, and POTASSIUM with caution. [facility] Anion gap [Moles/Vol] 2 mmol/L Low 3 - 13 mmol/L [facility] Calcium [Mass/Vol] 8.2 mg/dL Low 8.4 - 10. 4 mg/dL [facility] Chloride [Moles/Vol] 110 mmol/L High 98 - 10 7 mmol/L [facility] CO2 [Moles/Vol] 26 mmol/L 22 - 30 mmol/L [facility] Creatinine [Mass/Vol] 1.58 mg/dL High 0.66 - 1.25 mg/dL [facility] GFR/1.73 sq M.predicted MDRD (S/P/Bld) [Vol rate/Area] 43.7 mL/min/{1.73_m2} Low - PINF [facility] Comment on above: Calculation based on the Chronic Kidney Disease Epidemiology Collaboration (CKD-EPI) equation refit without adjustment for race Glucose [Mass/Vol] 93 mg/dL 70 - 100 mg/dL [facility] Interpretation and review of laboratory results Abnormal [facility] Potassium [Moles/Vol] 4.1 mmol/L 3.5 - 5.1 mmol/L [facility] Sodium [Moles/Vol] 138 mmol/L 135 - 145 mmol/L [facility] Urea nitrogen [Mass/Vol] 23 mg/dL High 9 - 20 mg/dL [facility] Blood type and Crossmatch dao cordon (Bld)on 12-20-2022 ABO group Nom (Bld) A [facility] Blood group antibody screen GEL Ql Negative [facility] D Ag Ql (RBC) Positive [facility] h [facility] CBC panel Auto (Bld)Ordered By: Una Hui on 12-20-2022 Erythrocyte distribution width (RBC) [Ratio] 13.6 % 11.5 - 14.5 % [facility] Hematocrit (Bld) [Volume fraction] 31.0 % Low 40.0 - 52.0 % [facility] Hemoglobin (Bld) [Mass/Vol] 10.2 g/dL Low 13.0 - 18.0 g/dL [facility] Interpretation and review of laboratory results Abnormal [facility] MCH (RBC) [Entitic mass] 29.1 pg 26.0 - 34.0 pg [facility] MCHC (RBC) [Mass/Vol] 32.9 % 32.0 - 36.0 % [facility] MCV (RBC) [Entitic vol] 88.4 fL 80.0 - 98.0 fL [facility] Platelet mean volume (Bld) [Entitic vol] 8.0 fL 7.4 - 12.4 fL [facility] Platelets (Bld) [#/Vol] 87 10*3/uL Low 140 - 440 10*3/uL [facility] RBC (Bld) [#/Vol] 3.51 10*6/uL Low 4.40 - 5.90 10*6/uL [facility] WBC (Bld) [#/Vol] 7.3 10*3/uL 3.6 - 10.7 10*3/uL [facility] CBC panel Auto (Bld)on 12-20 Erythrocyte distribution width (RBC) [Ratio] 13.6 % 11.5 - 14.5 % [facility] Hematocrit (Bld) [Volume fraction] 42.9 % 40.0 - 52.0 % [facility] Hemoglobin (Bld) [Mass/Vol] 14.6 g/dL 13.0 - 18.0 g/dL [facility] Interpretation and review of laboratory results Normal [facility] MCH (RBC) [Entitic mass] 29.4 pg 26.0 - 34.0 pg [facility] MCHC (RBC) [Mass/Vol] 34.1 % 32.0 - 36.0 % [facility] MCV (RBC) [Entitic vol] 86.1 fL 80.0 - 98.0 fL [facility] Platelet mean volume (Bld) [Entitic vol] 8.6 fL 7.4 - 12.4 fL [facility] Platelets (Bld) [#/Vol] 154 10*3/uL 140 - 440 10*3/uL [facility] RBC (Bld) [#/Vol] 4.98 10*6/uL 4.40 - 5.90 10*6/uL [facility] WBC (Bld) [#/Vol] 7.3 10*3/uL 3.6 - 10.7 10*3/uL [facility] Calcium.ionized [Moles/Vol]o n 12-20-2022 Calcium.ionized (Bld) [Moles/Vol] 4.60 mg/dL 4.30 - 5.20 mg/dL [facility] Interpretation and review of laboratory results Normal [facility] PH, IONIZED CALCIUM 7.32 7.31 - 7.46 [facility] Consulton 12-20-2022 Consult ----- ----- Attestation signed by Greg Garcia MD at 12/20/2022 4:48 PM I performed a history and physical examination of the patient. I have reviewed the patient's chart including pertinent history, medications, labs, radiology, and other reports. I reviewed the resident/LUCHO's note, agree with the documented findings and plan of care (with modifications noted if any), and discussed the management plan. I have performed a substantive portion of the the medical decision making. Pt is s/p CABG 12/20/22. Patient just got extubated but was very somnolent. Could not engage in a conversation at this time. Mostly complaining of chest discomfort. No known history of diabetes per records. Patient has CKD stage 3. Creatinine from 2016 was 1.3. BG stable, 125-138 today. Pt has not been initiated on insulin drip. No pressors. Noted LHC results. EF 72%. No family available. Lab Results Component Value Date HGBA1C 5.4 12/18/2022 Lab Results Component Value Date GLUCOSE 128 (H) 12/20/2022 CALCIUM 8.4 12/20/2022 NA 139 12/20/2022 K 4.5 12/20/2022 CO2 21 (L) 12/20/2022 CL 111 (H) 12/20/2022 BUN 21 (H) 12/20/2022 CREATININE 1.41 (H) 12/20/2022 BP (!) 146/99 Pulse 87 Temp 37.1 ?C (98.8 ?F) Resp 19 Ht 5' 11 (1.803 m) Wt 225 lb (102 kg) SpO2 97% PF 55 L/min BMI 31.38 kg/m? Somnolent, not in distress, on O2 per NC, RRR, chest incision intact, good pulses, decreased breath sounds, +chest tubes, abdomen soft, distended, non-tender, no edema, +bandage on LLE. Dx: Stress hyperglycemia. CAD s/p CABG. CKD 3. Plan: - will continue insulin infusion per protocol then transition to subcutaneous insulin - continue blood glucose monitoring - patient will unlikely require any pharmacotherapy on discharge for hyperglycemia - will follow Total time 25 minutes which include review of records, counseling, management, and coordination of care as documented in note. ----- Department of Internal Medicine Division of Endocrinology, Diabetes, & Metabolism Endocrinology Note Patient Name: Jesus Alberto Guevara Jr. : 1940 AGE: 82 y.o. Room[facility]Bed: [facility] A Admission Date: 12/18/2022 Visit Date: 12/20/2022 Reason for Endocrine Consult: post op heart Provider/Team Requesting Consult: CTS PCP: JAZLYN ZAYAS, DO Outpt Safety Compliance Specialist: No ASSESSMENT: Stress hyperglycemia Cabg CAD/HTN/HLD KASSANDRA on CKD PLAN: Cont on insulin gtt per protocol ICU goal <180 GMF goal <150 POCT ACHS-q1 on gtt Hypoglycemia per protocol Carb controlled diet ANTICIPATED ENDOCRINE HOME GOING RECOMMENDATIONS: Optimized for Discharge from Endocrine standpoint: No Home Going Endocrine Rx Recommendations-- none Outpt Follow Up-- pcp SUBJECTIVE/HPI: CHIEF COMPLAINT: No chief complaint on file. Cabg No noted hx of diabetes noted Bgl 93-125-128 Resting in bed Sleeping VSS Intubated and sedated Insulin gtt paused on assessment On propofol gtt Currently no pressors are on CT in place No noted hx of diabetes per chart No family in room Spoke to nursing and CTS Type of DM: na Onset of DM: na Home DM Medication Regimen: na DM control (last A1c/glucose data): Lab Results Component Value Date HGBA1C 5.4 12/18/2022 Review of Systems Unable to perform ROS: Intubated ROS negative except for those mentioned in HPI. OBJECTIVE: Vitals: 12/20/22 0735 12/20/22 0740 12/20/22 0745 12/20/22 1310 BP: (!) 146/99 BP Location: Patient Position: Pulse: 59 59 60 78 Resp: 15 Temp: TempSrc: SpO2: 98% Weight: Height: Physical Exam Vitals and nursing note reviewed. Constitutional: General: He is not in acute distress. Appearance: He is ill-appearing. He is not toxic-appearing. Interventions: He is sedated and intubated. HENT: Head: Normocephalic and atraumatic. Eyes: Conjunctiva/sclera: Conjunctivae normal. Cardiovascular: Rate and Rhythm: Normal rate. Pulmonary: Effort: Pulmonary effort is normal. He is intubated. Abdominal: Palpations: Abdomen is soft. Musculoskeletal: Cervical back: No rigidity. Skin: General: Skin is warm and dry. Comments: Intact incision 24 hour intake/output: Intake/Output Summary (Last 24 hours) at 12/20/2022 1322 Last data filed at 12/20/2022 1300 Gross per 24 hour Intake 1942 ml Output 965 ml Net 977 ml Diet: NPO diet Medications (as per EMR): HomeMeds: @MEDHMEDS@ Scheduled Meds:acetaminophen, 1,000 mg, Oral, q6h [Held by provider] aspirin, 81 mg, Oral, Daily [Held by provider] carvedilol, 6.25 mg, Oral, BID WC ceFAZolin, 2,000 mg, IntraVENous, q8h chlorhexidine, 15 mL, Mouth/Throat, BID chlorhexidine, 15 mL, Mouth/Throat, BID famotidine, 20 mg, Oral, BID melatonin, 3 mg, Oral, Nightly mupirocin, , Nasal, (more content not included)... [facility] Consult ----- ----- Attestation signed by Octavia Wesley MD at 12/20/2022 3:48 PM I have personally performed a [id number] diagnostic evaluation on this patient on date of service 12/20/22. History, labs, imaging studies, and electronic medical record have been reviewed by me. This note documented by the []warehouse unloader [x]LUCHO reflects my history, exam, and medical decision making. I have reviewed and agree with the care plan. Changes were made in the orders as necessary. ROS documentation was reviewed and negative unless otherwise stated in HPI. Additional pertinent interval history, ROS, and physical exam findings: Uncomplicated 4 vessel CABG Arrived to ICU on propofol infusion and cell saver. Assessment: MV CAD s.p. CABG CKD stage 3 Post op pulmonary management, normal post OP course Plan: Wean to fast track extubation, patient passed SBT and was extubated to NC, adjusted swan, follow urine and Cr. Sugamadex was given. Standard post OP orders placed. Rest of care as per LUCHO note Total critical care time for this patient with life-threatening unstable organ failure, including direct patient contact, management of life support systems, review of data including imaging and labs, and discussions with other team members and physicians at least 32 min so far today, excluding procedures. ----- [facility]: Critical Care Consultation Note Date: 12/20/22 PATIENT NAME: Jesus Alberto Guevara Jr. 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 Today he was transferred from [facility] due to a positive stress test with inferior WMA, EKG changes, t-wave inversions in the inferior leads. 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 His EF was 75% on LV gram and during the stress test was measured at 65% - Normal LVEDP. He does have CKD baseline creat of 1.42. Other labs are unremarkable. He did not get loaded with P2Y12 therapy at [place], he is on BB, asa, statin and has a PMH of stenting 10 years ago, HTN, HLD. Did have a TIA after quitting ASA at one time. He is a former pipe-smoker and occasionally uses ETOH. He elected for CABG x [address] Nickerson - His EF is preserved and no significant Valve disease. He consented and went to surgery today and had CABG x 4. The intra -op phase was uneventful. Patient arrived to the unit, intubated and sedated. Surgical hand off completed below. Review of Systems Reason unable to perform ROS: Intubated and sedated. Surgical Hand-Off Arrival Time in HLU: 115 Surgery: Nickerson: CABG x 4 Complications/Pertinent Events: Gtts OR report Epinephrine: Norepinephrine: Phenylephrine: Vasopressin: Nitroglycerin: Nitroprusside: Dobutamine: Milrinone: Propofol: Insulin: Amicar: 29 Current gtts upon arrival Epinephrine: Norepinephrine: Phenylephrine: Vasopressin: Nitroglycerin: Nitroprusside: Dobutamine: Milrinone: Propofol: Insulin: Amicar: 29 Devices: Epicardial wires: yes [x] no [] Type: Ventricular [x] Atrial [] Mode: back up IABP: yes [] no [x] Mode: LVAD: yes [] no [x] Speed: Equipment: Back up controller yes [] no [x] Other: Blood Transfusions Intra Op: yes [] no [x] pRBC: FFP: Cryo: PLT: CellSaver: 600 Medications given en route: Last Paralytic: Vital Signs including Cardiac Numbers (if indicated) at Conclusion of Hand-off OR HLU CO 4.6 CI 2.0 CVP 10 SVR 1008 PAP 45/23 Additional Interventions/Misc during Handoff None Allergies: Patient has no known allergies. Past Medical History: has no past medical history on file. Past Surgical History: has no past surgical history on file. Social History: Nonsmoker No ETOH No Illicit drugs Family History: family history is not on file. Medications: Prior to Admission medications Not on File Objective: BP (!) 136/96 (BP Location: Left arm, Patient Position: Lying) Pulse 52 Temp 36.7 ?C (98 ?F) (Temporal) Resp 18 Ht 5' 11 (1.803 m) Wt 225 lb 4.8 oz (102 kg) SpO2 93% BMI 31.42 kg/m? Intake/Output Summary (Last 24 hours) at 12/20/2022 0707 Last data filed at 12/19/20221999 Gross per 24 hour Intake 240 ml Output 300 ml Net -60 ml Physical Exam Constitutional: Interventions: He is sedated and intubated. HENT: Mouth/Throat: Comments: ET (more content not included)... Normal [facility] Fibrinogen Coag (PPP) [Mass/ Vol]on 12-20-2022 Interpretation and review of laboratory results Normal [facility] Laboratory - Chemistry and C hemistry - challengeon 12-20-2022 Glucose [Mass/Vol] 110 mg/dL High 70 - 100 mg/dL [facility] [employer] Glucose [Mass/Vol] 114 mg/dL High 70 - 100 mg/dL [facility] [employer] Glucose [Mass/Vol] 131 mg/dL High 70 - 100 mg/dL [facility] [employer] Glucose [Mass/Vol] 138 mg/dL High 70 - 100 mg/dL [facility] [employer] Magnesium [Mass/Vol] 3.2 mg/dL High 1.6 - 2 .3 mg/dL [facility] [employer] Glucose [Mass/Vol] 125 mg/dL High 70 - 100 mg/dL [facility] Laboratory - Chemistry and C hemistry - challengeOrdered By: Holley Sommer on 12-20-2022 Base excess Calc (Bld) [Moles/Vol] -4.7000 mmol/L Low -3.0 - 3.0 mmol/L [facility] CO2 (Bld) [Partial pressure] 40.9 mm[Hg] - PINF [facility] CO2 [Moles/Vol] 22.2 mmol/L Low 23.0 - 27.0 mmol/L [facility] HCO3 (Bld) [Moles/Vol] 20.9 mmol/L Low 21.0 - 25.0 mmol/L [facility] Oxygen (Bld) [Partial pressure] 107.3 mm[Hg] High [facility] pH (Bld) 7.327 [pH] Low 7.350 - 7.450 [facility] Laboratory - Coagulationon 0 12-20-2022 aPTT Coag (PPP) [Time] 32.0 s High 20.0 - 30.5 s [facility] Fibrinogen Coag (PPP) [Mass/Vol] 212 mg/dL 200 - 400 mg/dL [facility] INR Coag (PPP) [Relative time] 1.3 {INR} High 0.9 - 1.1 [facility] Comment on above: Recommended Anticoag ulant Therapy: SEE BELOW ----- INR of 2.0 - 3.0 : - Prophylaxis of Venous Thrombosis (high-risk surgery) - Treatment of Venous Thrombosis - Treatment of Pulmonary Embolism (Includes tissue heart valves, Acute Myocardial Infarction to prevent systemic embolism, Valvular Heart Disease, and Atrial Fibrillation) ----- INR of 2.5 - 3.5 : - Mechanical Prosthetic Valves (high risk) - If oral anticoagulant therapy is used to prevent Myocardial Infarction PT Coag (Bld) [Time] 13.2 s High 9.0 - 1 2.0 s [facility] Laboratory - Hematology and Cell countsOrdered By: Holley Sommer on 12-20-2022 Hemoglobin (Bld) [Mass/Vol] 10.8 g/dL Screen Only [facility] MRSA DNA RIVKA+probe Ql (Nose) on 12-20-2022 Interpretation and review of laboratory results Abnormal [facility] mecA gene Not detected Not Detected [facility] Staphylococcus aureus Detected Abnormal Not Detected [facility] Methicillin-sensitiv e Staphylococcus aureus (MSSA) present; No MRSA detected Negative nasal MRSA PCR has a high negative predictive value for MRSA pneumonia. Consider stopping Vancomycin if no other clinical indication. Positive results do not necessarily indicate active infection with MSSA. Contact Antimicrobial Stewardship for further recommendations. Staphylococcus aureus nasal screen by real-time PCR. This test was modified and its performance characteristics determined by [facility] Microbiology Service. The U. S. Food and Drug Administration has not approved or cleared this test; however, FDA clearance or approval is not currently required for clinical use. The results are not intended to be used as the sole means for clinical diagnosis or patient management decisions. [facility] [employer] [facility] [employer] No Panel Informationon 12-20 Interpretation and review of laboratory results Abnormal [facility] Performed by: [facility], [address] [place] [id number] CLIA ID: [id number] [facility] Interpretation and review of laboratory results Abnormal [facility] Performed by: [facility], [address] [place] [id number] CLIA ID: [id number] [facility] Interpretation and review of laboratory results Abnormal [facility] Performed by: [facility], [address] [place] [id number] CLIA ID: [id number] [facility] Interpretation and review of laboratory results Abnormal [facility] Performed by: [facility], [address] [place] [id number] CLIA ID: [id number] [facility] Interpretation and review of laboratory results Abnormal [facility] Interpretation and review of laboratory results Abnormal [facility] Interpretation and review of laboratory results Abnormal [facility] Performed by: [facility], [address] [place] [id number] CLIA ID: [id number] [facility] No Panel InformationOrdered By: Holley Sommer on 12-20-2022 Interpretation and review of laboratory results Abnormal [facility] Source Of Oxygen Vent [facility] Phosphate [Moles/Vol]on 11-27 Interpretation and review of laboratory results Normal [facility] Phosphate [Mass/Vol] 3.1 mg/dL 2.5 - 4 .5 mg/dL [facility] Progress Noteon 12-20-2022 Progress Note TC trial started HR 85, BP 103/53, spo2 92%, f/vt 38 15 mins : HR 85, spo2 93%, tv 317, RR 27, BP 116/62, f/vt 48 30 mins HR 84, RR 17, TV 486, spo2 90%, f/vt 41, BP 128/63 Dr. Nickerson notified Normal [facility] Progress Note [facility] [place] [address] [place] [address] Progress Note Assessment: Jesus Alberto Guevara Jr. is a 82 y.o. male with PMH including HTN, HLD, TIA, who presented from [facility] due to positive stress test with inferior WMA, EKG changes, had LHC done which showed MVCAD. Nephrology consulted for CKD. CKD- stage 3, recently Scr stable ~1.4mg/dl -non-oliguric recently -S/P CABG doing well -Insulin gtt paused on assessment -On propofol gtt -Currently no pressors are on HTN- BP stable Volume- no overt fluid overload Acid/base- appears compensated on recent value Plan: -monitor renal function, electrolytes Tommie Armenta MD 12/20/2022 2:35 PM ----- ----- ----- Subjective: Patient seen and examined today. We are following this patient for S/P CABG x [address] Nickerson - The intra -op phase was uneventful Scheduled Meds:HYDROmorphone, , , acetaminophen, 1,000 mg, Oral, q6h [Held by provider] aspirin, 81 mg, Oral, Daily [Held by provider] carvedilol, 6.25 mg, Oral, BID WC ceFAZolin, 2,000 mg, IntraVENous, q8h chlorhexidine, 15 mL, Mouth/Throat, BID chlorhexidine, 15 mL, Mouth/Throat, BID famotidine, 20 mg, Oral, BID HYDROmorphone, 1 mg, IntraVENous, Once melatonin, 3 mg, Oral, Nightly mupirocin, , Nasal, BID polyethylene glycol (PEG) 3350, 17 g, Oral, Daily [Held by provider] rosuvastatin, 40 mg, Oral, Daily senna-docusate sodium, 2 tablet, Oral, Nightly Continuous Infusions:dexmedeTOMIDine , 0.1-1.5 mcg/kg/hr EPINEPHrine, 0.01-0.2 mcg/kg/min fentaNYL, 25-200 mcg/hr insulin regular, 1-50 Units/hr, Last Rate: Stopped (12/20/221329) lactated ringers, 250 mL norepinephrine, 0.01-3.3 mcg/kg/min propofol, 5-50 mcg/kg/min, Last Rate: Stopped (12/20/221329) sodium chloride, 20 mL/hr, Last Rate: 20 mL/hr (12/20/221329) PRN Meds:PRN medications: acetaminophen OR acetaminophen OR acetaminophen, albumin human, calcium gluconate, dextrose, dextrose, EPINEPHrine, glucagon (rDNA), glucose, lactated ringers, magnesium hydroxide, magnesium sulfate OR magnesium sulfate, meperidine, morphine sulfate OR morphine sulfate, norepinephrine, ondansetron ODT OR ondansetron, ondansetron ODT OR ondansetron, oxyCODONE OR oxyCODONE, oxyCODONE, polyethylene glycol (PEG) 3350, potassium chloride OR potassium chloride (KCl) in 250 mL IVPB (peripheral line) OR potassium chloride (KCl) in 500 mL IVPB (peripheral line), [START ON 12/21/2022] potassium chloride CR Vitals: BP (!) 146/99 Pulse 81 Temp 37.6 ?C (99.6 ?F) (Temporal) Resp 13 Ht 1.803 m (5' 11) Wt 102 kg (225 lb) SpO2 97% BMI 31.38 kg/m? BLOOD PRESSURE RANGE: Systolic (24hrs), Av , Min:135 , Max:147 ; Diastolic (24hrs), Av, Min:75, Max:99 24HR INTAKE/OUTPUT: Intake/Output Summary (Last 24 hours) at 12/20/2022 1435 Last data filed at 12/20/2022 1400 Gross per 24 hour Intake 2942 ml Output 1605 ml Net 1337 ml Physical exam: Intubated sedated Data: Labs: Recent Labs 12/19/22 0616 12/20/22 0006 12/20/22 1241 12/20/22 1242 WBC 7.4 7.3 -- 7.3 HGB 14.5 14.6 10.8 10.2* HCT 42.8 42.9 -- 31.0* MCV 86.2 86.1 -- 88.4 PLT 154 154 -- 87* Recent Labs 12/19/22 0616 12/20/22 0006 12/20/22 1242 NA 137 138 139 K 4.3 4.1 4.5 CL 109* 110* 111* CO2 24 26 21* GLUCOSE 94 93 128* PHOS -- -- 3.1 MG -- -- 3.2* BUN 18 23* 21* CREATININE 1.29* 1.58* 1.41* Ionized Calcium: No components found for: IONCA Magnesium: Lab Results Component Value Date MG 3.2 (H) 12/20/2022 Phosphorus: Lab Results Component Value Date PHOS 3.1 12/20/2022 U/A: Lab Results Component Value Date COLORU Light Yellow 12/18/2022 CLARITYU Clear 12/18/2022 UROBILINOGEN Normal 12/18/2022 BLOODU Negative 12/18/2022 GLUCOSEU Normal 12/18/2022 KETONESU Negative 12/18/2022 Urine Culture: No components found for: CURINE Blood Culture: No components found for: CBLOOD, CFUNGUSBL Blood Culture from Central Line: No components found for: CBLOODLN Normal [facility] Progress Note Nutrition rescreen completed. Patient referred to the Dietitian. KASSANDRA on CKD. Normal [facility] XR CHEST 1 VIEWon 12-20-2022 XR CHEST 1 VIEW Patient Name: JESUS ALBERTO GUEVARA : 1940 Exam Date/Time: 12/20/2022 13:45 Procedure: XR CHEST 1 VIEW Ordering Provider: EMERSON MATTHEW Reason For Exam: Post op open heart surgery HISTORY: Postoperative open heart surgery Portable chest compared to previous study from 12/19/2022. FINDINGS: 1. Decreased density both lung bases which may be due to small amount pleural fluid and/or atelectasis 2. Nasogastric tube tip left upper quadrant, right jugular [place]-Mack catheter with tip in the region of the main pulmonary artery, left pleural tube and mediastinal drain, median sternotomy wires, endotracheal tube appearing in good position Report Dictated on Electronically Signed By: Jesus Alberto Paola Electronically Signed Date/Time: 12/20/2022 1:50 PM EDT [facility] XR Chest Single viewon 12-20 Patient Name: JESUS ALBERTO GUEVARA : 1940 Exam Date/Time: 12/20/2022 13:45 Procedure: XR CHEST 1 VIEW Ordering Provider: EMERSON MATTHEW Reason For Exam: Post op open heart surgery HISTORY: Postoperative open heart surgery Portable chest compared to previous study from 12/19/2022. FINDINGS: 1. Decreased density both lung bases which may be due to small amount pleural fluid and/or atelectasis 2. Nasogastric tube tip left upper quadrant, right jugular [place]-Mack catheter with tip in the region of the main pulmonary artery, left pleural tube and mediastinal drain, median sternotomy wires, endotracheal tube appearing in good position Report Dictated on Electronically Signed By: Jesus Alberto Guevara Electronically Signed Date/Time: 12/20/2022 1:50 PM EDT [facility] RADIOLOGY SYSTEM Jesus Alberto Guevara MD - 12/20/2022 Patient Name: JESUS ALBERTO GUEVARA [facility] 1940 [id number] Exam Date/Time: 12/20/2022 13:45 Procedure: XR CHEST 1 VIEW Ordering Provider: EMERSON MATTHEW Reason For Exam: Post op open heart surgery HISTORY: Postoperative open heart surgery Portable chest compared to previous study from 12/19/2022. FINDINGS: 1. Decreased density both lung bases which may be due to small amount pleural fluid and/or atelectasis 2. Nasogastric tube tip left upper quadrant, right jugular [place]-Mack catheter with tip in the region of the main pulmonary artery, left pleural tube and mediastinal drain, median sternotomy wires, endotracheal tube appearing in good position Report Dictated on Electronically Signed By: Jesus Alberto Guevara Electronically Signed Date/Time: 12/20/2022 1:50 PM EDT [employer] Radiology Study observation (narrative) [employer] XR Chest Single viewOrdered By: Jesus Alberto Guevara on 12-20-2022 [employer] Work Phone: Basic metabolic 1998 panelon 12-19-2022 Anion gap [Moles/Vol] 3 mmol/L 3 - 13 mmol/L [facility] [employer] Calcium [Mass/Vol] 8.0 mg/dL Low 8.4 - 10. 4 mg/dL [employer] Chloride [Moles/Vol] 109 mmol/L High 98 - 10 7 mmol/L [employer] CO2 [Moles/Vol] 24 mmol/L 22 - 30 mmol/L [facility] [employer] Creatinine [Mass/Vol] 1.29 mg/dL High 0.66 - 1.25 mg/dL [facility] [employer] GFR/1.73 sq M.predicted MDRD (S/P/Bld) [Vol rate/Area] 55.7 mL/min/{1.73_m2} Low - PINF [facility] Comment on above: Calculation based on the Chronic Kidney Disease Epidemiology Collaboration (CKD-EPI) equation refit without adjustment for race Glucose [Mass/Vol] 94 mg/dL 70 - 100 mg/dL [facility] Interpretation and review of laboratory results Abnormal [facility] Potassium [Moles/Vol] 4.3 mmol/L 3.5 - 5.1 mmol/L [facility] Sodium [Moles/Vol] 137 mmol/L 135 - 145 mmol/L [facility] Urea nitrogen [Mass/Vol] 18 mg/dL 9 - 20 mg/dL [facility] Assessment Date: 12/19/2022 Patient Name: Jesus Alberto Guevara Jr. : 1940 Patient Information Source of Information: Patient Cognition/Language: WFL - Within Functional Limits Permission given to speak with patient sales and marketing representative/caregiver as indicated: Yes Confirmation of Payer with patient/family: Yes Payer Name: Anthem Medicare [place]: No Confirmation of Primary Care Physician: Confirmed PCP Name: Dr. Zayas Seen in last 2 years?: Yes Primary Caregiver: Self If assistance needed, confirmed caregiver ready, willing and able to care for patient at discharge: Confirmed with: Living Arrangements Current Residence: Private Residence (renovated barn) Number of Floors 3 Number of Entry Steps: Bed/Bath Levels: Both first floor Facility: Facility Name: Plan to Return: Lives with: Spouse/significant other Support Systems: Spouse/significant other Activities of Daily Living Ambulation: Independent Bathing/Dressing: Independent Elimination/Continence/To ileting: Independent Feeding: Independent Who Assists with Activities of Daily Living: Instrumental Activities of Daily Living Prescription Coverage: Yes Pharmacy Used: [facility] Medication Management: Independent Transportation/Shopping: Independent Transportation Mode: Car Needs Assistance with Transportation at Discharge: No Meal Preparation: Independent Laundry/Cleaning: Independent Finances/Bill Paying: Independent Communication: Independent Types of Care Services/Equipment Utilized Care Services: Dialysis Type: Durable Medical Equipment: (has some DME if needed) Patient's Goal/Discharge Plan Patient expects to be discharged to: home Discharge Planning Actions: Continue to follow Patient's Choice Rights and [employer] and Collaborative Relationships Disclosed as Indicated for Post-Acute Care: Interdisciplinary Team Engagement: PT/OT, Home Health Care Social Work Referral for: Additional Information: Patient admitted to [facility] multivessel CAD. CTS planning surgery tomorrow. Spoke with patient at bedside, introduced self and role. Patient from home with , is independent, will have a ride home and requested MONTOYA to follow for home care needs post operatively. Angelia Frausto RN Normal [facility] CAREPLNon 12-19-2022 CAREPLN The patient is Moder ately Stable - Low risk of patient condition declining or worsening The patient's goals for the shift include The clinical goals for the shift include Problem: Safety Goal: Patient will be injury free during hospitalization Outcome: Progressing Goal: I will remain free of falls Outcome: Progressing Normal [facility] CBC panel Auto (Bld)on 12-19 Erythrocyte distribution width (RBC) [Ratio] 13.8 % 11.5 - 14.5 % [facility] Hematocrit (Bld) [Volume fraction] 42.8 % 40.0 - 52.0 % [facility] Hemoglobin (Bld) [Mass/Vol] 14.5 g/dL 13.0 - 18.0 g/dL [facility] Interpretation and review of laboratory results Normal [facility] MCH (RBC) [Entitic mass] 29.2 pg 26.0 - 34.0 pg [facility] MCHC (RBC) [Mass/Vol] 33.8 % 32.0 - 36.0 % [facility] MCV (RBC) [Entitic vol] 86.2 fL 80.0 - 98.0 fL [facility] Platelet mean volume (Bld) [Entitic vol] 8.3 fL 7.4 - 12.4 fL [facility] Platelets (Bld) [#/Vol] 154 10*3/uL 140 - 440 10*3/uL [facility] RBC (Bld) [#/Vol] 4.96 10*6/uL 4.40 - 5.90 10*6/uL [facility] WBC (Bld) [#/Vol] 7.4 10*3/uL 3.6 - 10.7 10*3/uL [facility] CT CHEST WO IV CONTRASTon CT CHEST WO IV CONTRAST Patient Name: JESUS ALBERTO GUEVARA : 1940 Exam Date/Time: 12/18/2022 21:41 Procedure: CT CHEST WO IV CONTRAST Ordering Provider: REYES KYLE Reason For Exam: Aortic aneurysm, known or suspected CLINICAL INFORMATION: Positive stress test. ECG changes. Coronary artery disease. Planned CABG. 1 mm axial cuts are obtained through the chest without IV contrast. Dose reduction was employed with automated exposure control. There are no comparison studies at this institution. FINDINGS: The heart size is normal. The ascending aorta and arch are normal in caliber. The lumen cannot be evaluated on this unenhanced scan. A small amount of fluid is present about the aortic root. However, this is thought to reside in the pericardial recess. There is no evidence of dissection or leak. Coronary arterial calcifications are most pronounced in the left anterior descending coronary artery. There is no mediastinal lymphadenopathy. The lungs are free of infiltrate or pleural effusion. A well-defined smooth 0.6 cm nodule is present in the right middle lobe (image #175). A 0.4 cm nodule is present in the periphery the right upper lobe (image #125). Both are too small to further characterize. Upper cuts of the abdomen included on the examination are grossly normal on this unenhanced scan. IMPRESSION: 1. The ascending aorta is normal in caliber. 2. Coronary arterial calcifications most pronounced in the LAD. 3. Right upper and middle lobe lung nodules. These are too small to further characterize. In a low risk patient (i.e. minimal or absent history of smoking and no other known risk factors), a follow-up CT is recommended in 12 months. If the patient is of higher risk, a follow-up CT is recommended in approximately 6 months. If desired, this could again be performed without IV contrast. Report Dictated on Electronically Signed By: Andres Dias Electronically Signed Date/Time: 12/19/2022 10:17 AM EDT [facility] CT Chest WO contraston 12-19 1. The ascending aor ta is normal in caliber. 2. Coronary arterial calcifications most pronounced in the LAD. 3. Right upper and middle lobe lung nodules. These are too small to further characterize. In a low risk patient (i.e. minimal or absent history of smoking and no other known risk factors), a follow-up CT is recommended in 12 months. If the patient is of higher risk, a follow-up CT is recommended in approximately 6 months. If desired, this could again be performed without IV contrast. Report Dictated on Electronically Signed By: Andres Dias Electronically Signed Date/Time: 12/19/2022 10:17 AM EDT [facility] [employer] Patient Name: JESUS ALBERTO GUEVARA : 1940 [id number] Exam Date/Time: 12/18/2022 21:41 Procedure: CT CHEST WO IV CONTRAST Ordering Provider: REYES KYLE Reason For Exam: Aortic aneurysm, known or suspected CLINICAL INFORMATION: Positive stress test. ECG changes. Coronary artery disease. Planned CABG. 1 mm axial cuts are obtained through the chest without IV contrast. Dose reduction was employed with automated exposure control. There are no comparison studies at this institution. FINDINGS: The heart size is normal. The ascending aorta and arch are normal in caliber. The lumen cannot be evaluated on this unenhanced scan. A small amount of fluid is present about the aortic root. However, this is thought to reside in the pericardial recess. There is no evidence of dissection or leak. Coronary arterial calcifications are most pronounced in the left anterior descending coronary artery. There is no mediastinal lymphadenopathy. The lungs are free of infiltrate or pleural effusion. A well-defined smooth 0.6 cm nodule is present in the right middle lobe (image #175). A 0.4 cm nodule is present in the periphery the right upper lobe (image #125). Both are too small to further characterize. Upper cuts of the abdomen included on the examination are grossly normal on this unenhanced scan. [facility] Andres Dias MD - 12/19/2022 Patient Name: JESUS ALBERTO GUEVARA : 1940 [id number] Exam Date/Time: 12/18/2022 21:41 Procedure: CT CHEST WO IV CONTRAST Ordering Provider: REYES KYLE Reason For Exam: Aortic aneurysm, known or suspected CLINICAL INFORMATION: Positive stress test. ECG changes. Coronary artery disease. Planned CABG. 1 mm axial cuts are obtained through the chest without IV contrast. Dose reduction was employed with automated exposure control. There are no comparison studies at this institution. FINDINGS: The heart size is normal. The ascending aorta and arch are normal in caliber. The lumen cannot be evaluated on this unenhanced scan. A small amount of fluid is present about the aortic root. However, this is thought to reside in the pericardial recess. There is no evidence of dissection or leak. Coronary arterial calcifications are most pronounced in the left anterior descending coronary artery. There is no mediastinal lymphadenopathy. The lungs are free of infiltrate or pleural effusion. A well-defined smooth 0.6 cm nodule is present in the right middle lobe (image #175). A 0.4 cm nodule is present in the periphery the right upper lobe (image #125). Both are too small to further characterize. Upper cuts of the abdomen included on the examination are grossly normal on this unenhanced scan. IMPRESSION: 1. The ascending aorta is normal in caliber. 2. Coronary arterial calcifications most pronounced in the LAD. 3. Right upper and middle lobe lung nodules. These are too small to further characterize. In a low risk patient (i.e. minimal or absent history of smoking and no other known risk factors), a follow-up CT is recommended in 12 months. If the patient is of higher risk, a follow-up CT is recommended in approximately 6 months. If desired, this could again be performed without IV contrast. Report Dictated on Electronically Signed By: Andres Dias Electronically Signed Date/Time: 12/19/2022 10:[address] [email or web address] CT Chest WO contrastOrdered By: Andres Dias on 12-19-2022 [email or web address] Work Phone: Consulton 12-19-2022 Consult [facility] [place] [address] [place] [address] Consult Note Patient's Name: Jesus Alberto Guevara Jr. 9:47 AM 12/19/2022 Reason for Consult: CKD History of Present Ilness: Jesus Alberto Guevara Jr. is a 82 y.o. male with PMH including HTN, HLD, TIA, who presented from [facility] due to positive stress test with inferior WMA, EKG changes, had LHC done which showed MVCAD. Patient has followed with Dr. Gimenez as outpatient physician gynecologist. Patient reports feeling sleepy, but denies pain, dyspnea, N/V/D, LUTS. History reviewed. No pertinent past medical history. History reviewed. No pertinent surgical history. No family history on file. Allergies: Patient has no known allergies. Medications: No current facility-administered medications on file prior to encounter. No current outpatient medications on file prior to encounter. Review of Systems: ROS as in HPI Physical exam: BP (!) 159/96 (BP Location: Left arm, Patient Position: Lying) Pulse 61 Temp 36.6 ?C (97.9 ?F) (Core) Resp 16 Ht 1.803 m (5' 11) Wt 103 kg (227 lb) SpO2 96% BMI 31.66 kg/m? General: NAD, alert Chest: bilateral vesicular breath sounds Cardiac: S1, S2 Abdomen: soft SKIN: dry Extremities: no lower extremity edema Labs: Recent Labs 12/18/22 1342 12/19/22 0616 WBC 7.3 7.4 HGB 15.9 14.5 HCT 48.0 42.8 MCV 88.2 86.2 PLT 167 154 Recent Labs 12/18/22 1342 12/19/22 0616 NA 135 137 K 4.8 4.3 CL 105 109* CO2 26 24 GLUCOSE 100 94 BUN 18 18 CREATININE 1.28* 1.29* Ionized Calcium: No components found for: IONCA Magnesium: No results found for: MG Phosphorus: No results found for: PHOS Input / Output: 24 HR: Intake/Output Summary (Last 24 hours) at 12/19/2022 0947 Last data filed at 12/19/2022 0900 Gross per 24 hour Intake 1764 ml Output 650 ml Net 1114 ml IV Intake: P.O. (mL): 240 mL Olmedo: Imaging: CXR: IMPRESSION: No acute pulmonary process. Assessment: Jesus Alberto Guevara is a 82 y.o. male with PMH including HTN, HLD, TIA, who presented from [facility] due to positive stress test with inferior WMA, EKG changes, had LHC done which showed MVCAD. Nephrology consulted for CKD. CKD- stage 3, recently Scr stable ~1.3mg/dl -non-oliguric recently HTN- BP with some elevation recently, monitor Volume- no overt fluid overload Acid/base- appears compensated on recent value Plan: -monitor renal function, electrolytes -noted plan for surgery tomorrow NARAYAN Martin CNP Pt seen and examined independently by me. I reviewed with SABINE Wadsworth the medical history and the findings on physical examination. I discussed the patient?s diagnosis and concur with the treatment plan as documented in his note. Please call [phone] or message me through [employer] with any questions or concerns. Normal [email or web address] [facility] ECG 12-LEADon 12-19-2022 ECG 12-LEAD IMPRESSION: Sinus bradycardia Nonspecific T abnormalities, lateral leads Electronically Signed On 12-19-2022 9:21:36 EDT by Nathan Alvarez [facility] [employer] [facility] No Panel InformationOrdered By: Nathan Alvarez on 12-19-2022 P Thida 48 degrees [employer] Phone: MN Interval 208 ms [employer] Phone: QRS Thida 36 degrees [employer] Phone: QRSD Interval 94 ms [facility] [employer] Work Phone: QT Interval 396 ms [employer] Phone: QTC Interval 388 ms [employer] Phone: T Wave Thida 97 degrees [employer] Phone: [employer] Phone: No Panel Informationon 12-19 Sinus bradycardia Nonspecific T abnormalities, lateral leads Electronically Signed On 12-19-2022 9:21:36 EDT by Nathan Alvarez CV Nathan Bustamante MD - 12/19/2022 IMPRESSION: Sinus bradycardia Nonspecific T abnormalities, lateral leads Electronically Signed On 12-19-2022 9:21:36 EDT by Nathan Alvarez [facility] TransthoracicOrdere d By: Souleymane Coyne on 12-19-2022 AR Max [employer]ocity PISA 4.9 m/s [employer] Phone: AR PHT 392.3 ms [facility] Work Phone: Ascending Aorta 3.4 cm [facility] Work Phone: Ascending Aorta Index 1.52 cm/m2 [facility] Work Phone: AV Area by Peak Velocity 2.6 cm2 [facility] Work Phone: AV Area by VTI 2.7 cm2 [facility] Work Phone: AV Mean Gradient 3 mmHg [facility] Work Phone: AV Mean Velocity 0.8 m/s [facility] Work Phone: AV Peak Gradient 6 mmHg [facility] Work Phone: AV Peak Velocity 1.2 m/s [facility] Work Phone: AV Velocity Ratio 0.83 [facility] Work Phone: AV VTI 25.1 cm [facility] Work Phone: ELOY/BSA Peak Velocity 1.2 cm2/m2 [facility] Work Phone: ELOY/BSA VTI 1.2 cm2/m2 [facility] Work Phone: E/E' Lateral 6.43 [facility] Work Phone: E/E' Ratio (Averaged) 6.96 [facility] Work Phone: E/E' Septal 7.50 [facility] Work Phone: EF BP 69 % 55 - 100 % [facility] Work Phone: Fractional Shortening 2D 33 % 28 - 44 % [facility] Work Phone: Interpretation and review of laboratory results Abnormal [facility] Work Phone: IVC Diameter 1.5 cm [facility] Work Phone: IVSd 1.2 cm Abnormal 0.6 - 1.0 cm [facility] Work Phone: LA Volume 2C 67 mL Abnormal 18 - 58 mL [facility] Work Phone: LA Volume 4C 51 mL 18 - 58 mL [facility] Work Phone: LA Volume A/L 63 mL [facility] Work Phone: LA Volume Index 2C 30 mL/m2 16 - 34 mL/m2 [facility] Work Phone: LA Volume Index 4C 23 mL/m2 16 - 34 mL/m2 [facility] Work Phone: LA Volume Index A/L 28 mL/m2 16 - 34 mL/m2 [facility] Work Phone: LV E' Lateral Velocity 7 cm/s [facility] Work Phone: LV E' Septal Velocity 6 cm/s [facility] Work Phone: LV EDV A2C 116 mL [facility] Work Phone: LV EDV A4C 99 mL [facility] Work Phone: LV EDV BP 108 mL 67 - 155 mL [facility] Work Phone: LV EDV Index A2C 52 mL/m2 [facility] Work Phone: LV EDV Index A4C 44 mL/m2 [facility] Work Phone: LV EDV Index BP 48 mL/m2 [facility] Work Phone: LV Ejection Fraction A2C 67 % [facility] Work Phone: LV Ejection Fraction A4C 73 % [facility] Work Phone: LV ESV A2C 38 mL [facility] Work Phone: LV ESV A4C 27 mL [facility] Work Phone: LV ESV BP 34 mL 22 - 58 mL [facility] Work Phone: LV ESV Index A2C 17 mL/m2 [facility] Work Phone: LV ESV Index A4C 12 mL/m2 [facility] Work Phone: LV ESV Index BP 15 mL/m2 [facility] Work Phone: LV Mass 2D 124.1 g 88 - 224 g [email or web address] Work Phone: LV Mass 2D Index 55.7 g/m2 49 - 115 g/m2 [email or web address] Work Phone: LV RWT Ratio 0.56 [facility] Work Phone: LVIDd 3.6 cm Abnormal 4.2 - 5.9 cm [email or web address] Work Phone: LVIDd Index 1.61 cm/m2 [facility] Work Phone: LVIDs 2.4 cm [email or web address] Work Phone: LVIDs Index 1.08 cm/m2 [email or web address] Work Phone: LVOT Area 3.5 cm2 [facility] [employer] Work Phone: LVOT Cardiac Output 4.3 liter/mi nu te [email or web address] Work Phone: LVOT Diameter 2.1 cm [facility] [employer] Work Phone: LVOT Mean Gradient 2 mmHg [facility] [employer] Work Phone: LVOT Peak Gradient 4 mmHg [facility] [employer] Work Phone: LVOT Peak Velocity 1.0 m/s [facility] [employer] Work Phone: LVOT Stroke Volume Index 31.4 mL/m2 [employer] Work Phone: LVOT SV 69.9 ml [employer] Work Phone: LVOT VTI 20.2 cm [facility] [employer] Work Phone: LVOT:AV VTI Index 0.80 [facility] [employer] ealth Work Phone: LVPWd 1.0 cm 0.6 - 1.0 cm [facility] [employer] Work Phone: MV A Velocity 0.70 m/s [facility] Work Phone: MV E Velocity 0.45 m/s [facility] Work Phone: MV E Wave Deceleration Time 192.7 ms [facility] [employer] Work Phone: MV E/A 0.64 [facility] Work Phone: Pulmonary Artery EDP 3 mmHg [facility] Work Phone: RV Free Wall Peak S' 11 cm/s [facility] Work Phone: TAPSE 1.9 cm 1.7 cm [facility] Work Phone: TR Max Velocity 2.77 m/s [facility] Work Phone: TR Peak Gradient 31 mmHg [facility] Work Phone: [facility] Work Phone: US Heart Transthoracicon Left Ventricle: Left ventricle size is normal. Mildly increased wall thickness. Normal left ventricular systolic function. EF by 2D Simpsons Biplane is 69%. See diagram for wall motion findings. Right Ventricle: Right ventricle size is normal. Normal systolic function. Aortic Valve: Mild to moderate (1-2+) regurgitation. Mitral Valve: Mild (1+) regurgitation. Left Ventricle Left ventricle size is normal. Mildly increased wall thickness. Normal left ventricular systolic function. EF by 2D Simpsons Biplane is 69%. See diagram for wall motion findings. Right Ventricle Right ventricle size is normal. Normal systolic function. Left Atrium Left atrium size is normal. Right Atrium Right atrium size is normal. IVC/SVC IVC diameter is normal and decreases greater than 50% during inspiration; therefore the estimated right atrial pressure is normal (~3 mmHg). Mitral Valve Valve structure is normal. Mild (1+) regurgitation. No stenosis noted. Tricuspid Valve Valve structure is normal. Trace regurgitation. Aortic Valve Trileaflet. No cusp thickening. No cusp calcification. Mild to moderate (1-2+) regurgitation. No stenosis. Pulmonic Valve Valve structure is normal. Trace regurgitation. Ascending Aorta Normal sized sinuses of Valsalva and ascending aorta. Pericardium No pericardial effusion. Septum No interatrial shunt visualized on color Doppler. Study Details Image quality: technically difficult. Blood pressure: 149/82 mmHg. Technical qualifiers: Technically difficult study with poor endocardial visualization. Ultrasound enhancement agent was given to enhance imaging. Wall Scoring Baseline Score Index: 1.12 The following segments are hypokinetic: mid anterolateral and apical lateral. All other segments are normal. CV CPACS Vital signsOrdered By: Nathan Alvarez on 12-19-2022 Heart rate 58 /min bpm [email or web address] Work Phone: XR CHEST 1 VIEWon 12-19-2022 XR CHEST 1 VIEW Patient Name: JESUS ALBERTO GUEVARA : 1940 Exam Date/Time: 12/19/2022 07:53 Procedure: XR CHEST 1 VIEW Ordering Provider: EMERSON MATTHEW Reason For Exam: CORONARY ARTERIOSCLEROSIS CHEST (Frontal View) History: Respiratory abnormality, coronary artery disease Comparison chest x-ray: None available Findings: Frontal chest view shows mild chronic lung changes with small linear left basilar atelectasis without acute infiltrate or congestion. The heart is normal in size. Aorta appears tortuous. There is no mediastinal widening or pleural effusion. IMPRESSION: No acute pulmonary process. Report Dictated on Electronically Signed By: Eun Burleson Electronically Signed Date/Time: 12/19/2022 9:03 AM EDT [facility] Single viewon 12-19 No acute pulmonary process. Report Dictated on Electronically Signed By: Eun Burleson Electronically Signed Date/Time: 12/19/2022 9:03 AM EDT [facility] [employer] Patient Name: JESUS ALBERTO GUEVARA : 1940 Exam Date/Time: 12/19/2022 07:53 Procedure: XR CHEST 1 VIEW Ordering Provider: EMERSON MATTHEW Reason For Exam: CORONARY ARTERIOSCLEROSIS CHEST (Frontal View) History: Respiratory abnormality, coronary artery disease Comparison chest x-ray: None available Findings: Frontal chest view shows mild chronic lung changes with small linear left basilar atelectasis without acute infiltrate or congestion. The heart is normal in size. Aorta appears tortuous. There is no mediastinal widening or pleural effusion. [facility] Eun Burleson MD - 12/19/2022 Patient Name: JESUS ALBERTO GUEVARA : [address] [facility]#: [id number] Exam Date/Time: 12/19/2022 07:53 Procedure: XR CHEST 1 VIEW Ordering Provider: EMERSON MATTHEW Reason For Exam: CORONARY ARTERIOSCLEROSIS CHEST (Frontal View) History: Respiratory abnormality, coronary artery disease Comparison chest x-ray: None available Findings: Frontal chest view shows mild chronic lung changes with small linear left basilar atelectasis without acute infiltrate or congestion. The heart is normal in size. Aorta appears tortuous. There is no mediastinal widening or pleural effusion. IMPRESSION: No acute pulmonary process. Report Dictated on Electronically Signed By: Eun Burleson Electronically Signed Date/Time: 12/19/2022 9:03 AM EDT [facility] Radiology Study observation (narrative) [facility] XR Chest Single viewOrdered By: Eun Burleson on 12-19-2022 [facility] [employer] Work Phone: 36on 12-18-2022 36 Name of caller: Jesus velazquez Contact phone number: [phone] Relationship to Patient: [facility] Insurance Provider: Dr. Nickerson Practice: [facility] Cardiothoracic Surgery Chief Complaint/Reason for Call: Felicita states they need authorization for his surgery on 12/20/24. Please advise. Best time of day caller can be reached: any Patient advised that office/PCP has 24-48 business hours to return their call: N/A Normal [facility] Basic metabolic 1998 panelon 12-18-2022 Anion gap [Moles/Vol] 4 mmol/L 3 - 13 mmol/L [facility] [employer] Calcium [Mass/Vol] 8.5 mg/dL 8.4 - 10. 4 mg/dL [facility] [employer] Chloride [Moles/Vol] 105 mmol/L 98 - 10 7 mmol/L [facility] [employer] CO2 [Moles/Vol] 26 mmol/L 22 - 30 mmol/L [facility] [employer] Creatinine [Mass/Vol] 1.28 mg/dL High 0.66 - 1.25 mg/dL [facility] GFR/1.73 sq M.predicted MDRD (S/P/Bld) [Vol rate/Area] 56.2 mL/min/{1.73_m2} Low - PINF [facility] Comment on above: Calculation based on the Chronic Kidney Disease Epidemiology Collaboration (CKD-EPI) equation refit without adjustment for race Glucose [Mass/Vol] 100 mg/dL 70 - 100 mg/dL [facility] Potassium [Moles/Vol] 4.8 mmol/L 3.5 - 5.1 mmol/L [facility] Sodium [Moles/Vol] 135 mmol/L 135 - 145 mmol/L [facility] Urea nitrogen [Mass/Vol] 18 mg/dL 9 - 20 mg/dL [facility] Basophil percentageOrdered B y: Sarah White on 12-18-2022 Cholesterol [Mass/Vol] 247 mg/dL <200 [facility] Comment on above: <200 mg/dL Desirable 200-240 mg/dL Borderline >240 mg/dL High Risk Triglyceride [Mass/Vol] 274 mg/dL <199 [facility] Comment on above: The drugs N-Acetylcy steine and Metamizole may falsely depress this assay.Serum Triglycerides Reference Interval Normal <150 mg/dL Borderline high 150 - 199 mg/dL High 200 - 499 mg/dL Very High > or = 500 mg/dL CBC W Auto Differential pane l (Bld)Ordered By: Precious Adams on 12-18-2022 Basophils (Bld) [#/Vol] 0.1 10*3/uL 0.0 - 0.2 10*3/uL [facility] Basophils/100 WBC (Bld) 0.9 % 0.0 - 2.0 % [facility] Eosinophils (Bld) [#/Vol] 0.1 10*3/uL 0.0 - 0.5 10*3/uL [facility] Eosinophils/100 WBC (Bld) 0.7 % Low 1.0 - 6.0 % [facility] Erythrocyte distribution width (RBC) [Ratio] 13.9 % 11.5 - 14.5 % [facility] Hematocrit (Bld) [Volume fraction] 48.0 % 40.0 - 52.0 % [facility] Hemoglobin (Bld) [Mass/Vol] 15.9 g/dL 13.0 - 18.0 g/dL [facility] Interpretation and review of laboratory results Abnormal [facility] Lymphocytes (Bld) [#/Vol] 1.2 10*3/uL 1.0 - 4.3 10*3/uL [facility] Lymphocytes/100 WBC (Bld) 16.4 % Low 20.0 - 40.0 % [facility] [employer] MCH (RBC) [Entitic mass] 29.3 pg 26.0 - 34.0 pg [facility] [employer] MCHC (RBC) [Mass/Vol] 33.2 % 32.0 - 36.0 % [facility] [employer] MCV (RBC) [Entitic vol] 88.2 fL 80.0 - 98.0 fL [facility] [employer] Monocytes (Bld) [#/Vol] 0.5 10*3/uL 0.0 - 0.8 10*3/uL [facility] Monocytes/100 WBC (Bld) 6.2 % 2.0 - 10.0 % [facility] [employer] Neutrophils (Bld) [#/Vol] 5.5 10*3/uL 1.8 - 7.0 10*3/uL [facility] Neutrophils/100 WBC (Bld) 75.8 % 40.0 - 80.0 % [facility] Nucleated RBC/100 WBC (Bld) [Ratio] 0.1 % [facility] [employer] Platelet mean volume (Bld) [Entitic vol] 8.1 fL 7.4 - 12.4 fL [facility] [employer] Platelets (Bld) [#/Vol] 167 10*3/uL 140 - 440 10*3/uL [facility] RBC (Bld) [#/Vol] 5.44 10*6/uL 4.40 - 5.90 10*6/uL [facility] WBC (Bld) [#/Vol] 7.3 10*3/uL 3.6 - 10.7 10*3/uL [facility] CT Chest WO contraston 12-18 Radiology Study observation (narrative) [facility] HbA1c (Bld) [Mass fraction]o n 12-18-2022 Average glucose Estimated from glycated hemoglobin (Bld) [Mass/Vol] 108 mg/dL [facility] HbA1c (Bld) [Mass/Vol] 5.4 % NINF - 5.7 % [facility] Comment on above: Normal less than 5.7 % Prediabetes 5.7% to 6.4% Diabetes 6.5% or higher --HgbA1C levels may not be accurate in patients who have renal disease, received recent blood transfusions, are anemic, or who have dyshemoglobinemia. [facility] Hepatic function 2000 panelo n 12-18-2022 Albumin [Mass/Vol] 3.8 g/dL 3.5 - 5.0 g/dL [facility] ALP [Catalytic activity/Vol] 74 U/L 38 - 126 U/L [facility] ALT [Catalytic activity/Vol] 41 U/L 0 - 49 U/L [facility] AST [Catalytic activity/Vol] 51 U/L High 15 - 46 U/L [facility] Bilirubin [Mass/Vol] 0.7 mg/dL 0.2 - 1 .3 mg/dL [facility] Bilirubin.conjugated [Mass/Vol] 0.0 mg/dL 0.0 - 0.3 mg/dL [facility] Protein [Mass/Vol] 6.7 g/dL 6.3 - 8.2 g/dL [facility] Laboratory - Chemistry and C hemistry - challengeon 12-18-2022 TSH Qn 0.804 m[IU]/L [facility] No Panel InformationOrdered By: Adalid Causey on 12-18-2022 Left CCA dist EDV 12.5 cm/s [facility] Work Phone: Left CCA dist PSV 85.1 cm/s [facility] Work Phone: Left CCA mid EDV 14.30 cm/s [facility] Work Phone: Left CCA mid PSV 119.60 cm/s [facility] Work Phone: Left CCA prox EDV 14.3 cm/s [facility] Work Phone: Left CCA prox PSV 121.4 cm/s [facility] Work Phone: Left ECA EDV 0.00 cm/s [facility] Work Phone: Left ECA PSV 115.9 cm/s [facility] Work Phone: Left ICA dist EDV 18.4 cm/s [facility] Work Phone: Left ICA dist PSV 77.5 cm/s [facility] Work Phone: Left ICA mid EDV 17.8 cm/s [facility] Work Phone: Left ICA mid PSV 79.1 cm/s [facility] Work Phone: Left ICA prox EDV 14.6 cm/s [facility] Work Phone: Left ICA prox PSV 58.7 cm/s [facility] Work Phone: Left ICA/CCA PSV 0.66 [facility] Work Phone: Left subclavian mid EDV 0.0 cm/s [facility] Work Phone: Left subclavian mid PSV 260.2 cm/s [facility] Work Phone: Left vertebral EDV 9.70 cm/s [facility] Work Phone: Left vertebral PSV 50.0 cm/s [facility] Work Phone: Right CCA dist EDV 16.1 cm/s [facility] Work Phone: Right cca dist PSV 108.7 cm/s [facility] Work Phone: Right CCA mid EDV 19.80 cm/s [facility] Work Phone: Right CCA mid PSV 115.90 cm/s [facility] Work Phone: Right CCA prox EDV 19.8 cm/s [facility] Work Phone: Right CCA prox PSV 115.9 cm/s [facility] Work Phone: Right ECA EDV 0.00 cm/s [facility] Work Phone: Right ECA PSV 155.7 cm/s [facility] Work Phone: Right ICA dist EDV 14.2 cm/s [facility] Work Phone: Right ICA dist PSV 86.3 cm/s [facility] Work Phone: Right ICA mid EDV 13.3 cm/s [employer] Work Phone: Right ICA mid PSV 78.3 cm/s [employer] Work Phone: Right ICA prox EDV 12.6 cm/s [employer] Work Phone: Right ICA prox PSV 98.4 cm/s [employer] Work Phone: Right ICA/CCA PSV 0.85 [employer] Work Phone: Right subclavian mid EDV 8.6 cm/s [employer] Work Phone: Right subclavian mid PSV 226.8 cm/s [employer] Work Phone: Right vertebral EDV 6.30 cm/s [employer] Work Phone: Right vertebral PSV 24.3 cm/s [facility] [employer] Work Phone: No Panel Informationon 12-18 <50% stenosis in the right internal carotid artery. Mild and calcific plaque (proximal) in the right internal carotid artery. <50% stenosis in the left internal carotid artery. Moderate, heterogeneous and calcific plaque (proximal) in the left internal carotid artery. Normal antegrade flow involving the right vertebral artery. Normal antegrade flow involving the left vertebral artery. Right Carotid Common Carotid Artery: Mild and calcific plaque (distal). Flow is antegrade. Internal Carotid Artery: <50% stenosis in the proximal ICA. Mild and calcific plaque (proximal). Flow is antegrade. External Carotid Artery: Mild and calcific plaque (proximal). Flow is antegrade. Vertebral Artery: Flow is antegrade. Subclavian Artery: Subclavian has turbulent flow. Left Carotid Common Carotid Artery: Mild and calcific plaque (distal). Flow is antegrade. Internal Carotid Artery: <50% stenosis. Moderate, heterogeneous and calcific plaque (proximal). Flow is antegrade. External Carotid Artery: Mild and calcific plaque (prox). Flow is antegrade. Vertebral Artery: Flow is antegrade. Subclavian Artery: Normal. [employer] Teacher Details A nunez scale, color Doppler imaging and spectral Doppler analysis ultrasound was performed. During the study longitudinal and transverse views were obtained. Pulsed wave doppler was performed. The exam was performed with the patient in the supine position. Overall the study quality was adequate. Study was technically difficult due to: bedside exam. CV CPACS Left GSV at Knee Diam 2 mm [facility] Left GSV BK Dist Diam 1.8 mm [facility] Left GSV BK Mid Diam [facility] Left GSV BK Prox Diam 3 mm [facility] Left GSV Junc Diam 5 mm [facility] Left GSV Thigh Dist Diam 3 mm [facility] Left GSV Thigh Mid Diam 3 mm [facility] Left GSV Thigh Prox Diam 4 mm [facility] Left SSV Dist Diam 2.3 mm [facility] Left SSV Mid Diam 2.7 mm [facility] Left SSV Prox Diam 1.3 mm [facility] Right GSV at Knee Diam 2.2 mm [facility] Right GSV BK Dist Diam 1.3 mm [facility] Right GSV BK Mid Diam 1.8 mm [facility] Right GSV BK Prox Diam 2.0 mm [facility] Right GSV Junc Diam 5.1 mm [facility] Right GSV Thigh Dist Diam 3.1 mm [facility] Right GSV Thigh Mid Diam 2.3 mm [facility] Right GSV Thigh Prox Diam 4.4 mm [facility] Right SSV Dist Diam 1.5 mm [facility] Right SSV Mid Diam 1.2 mm [facility] Right SSV Prox Diam 3.1 mm [facility] Vessel diameters as noted in the table below. [employer] Details A nunez scale and color Doppler imaging ultrasound was performed. During the study longitudinal and transverse views were obtained. Pulsed wave doppler was performed. The exam was performed with the patient in the supine and sitting position. Overall the study quality was adequate. Study was technically difficult due to: bedside exam. CV CPACS Interpretation and review of laboratory results Abnormal [facility] Serum or plasma cholesterol in HDL measurement (mass/volume)Ordered By: Sarah Hsu on 12-18-2022 Cholesterol in HDL [Mass/Vol] 31 mg/dL >40 [facility] Comment on above: The drugs N-Acetylcy steine and Metamizole may falsely depress this assay. Reference Range HDL <40 mg/dL Low HDL Cholesterol HDL >or= 60 mg/dL High HDL Cholesterol Serum or plasma cholesterol in VLDL measurement (mass/volume)Ordered By: Sarah Hsu on 12-18-2022 Cholesterol in VLDL [Mass/Vol] 55 mg/dL 5-40 [facility] Serum or plasma low density lipoprotein (LDL) cholesterol measurement (mass/volume)Ordered By: Sarah Hsu on 12-18-2022 Cholesterol in LDL [Mass/Vol] 161 mg/dL 0-130 [facility] TSH Qnon 12-18-2022 Interpretation and review of laboratory results Normal [facility] Urinalysis complete panel (U )Ordered By: Joellen Sifuentes on 12-18-2022 Bilirubin Ql (U) Negative Negative mg/dL [facility] Clarity (U) Clear Clear [facility] Color (U) Light Yellow Lt. Yellow [facility] Glucose Ql (U) Normal Normal (<70) mg/dL [facility] Hemoglobin Ql (U) Negative Negative mg/dL [facility] Interpretation and review of laboratory results Abnormal [facility] Ketones (U) [Mass/Vol] Negative Negative mg/dL [facility] Leukocyte esterase Test strip Ql (U) Negative Negative Marc/uL [facility] Nitrite Ql (U) Negative Negative [facility] th pH (U) 5.5 [pH] 5.0 - 8.0 pH [facility] Protein (U) [Mass/Vol] Negative Negative mg/dL [facility] Specific gravity (U) [Rel density] 1.038 High 1.005 - 1.030 [facility] Urobilinogen (U) [Mass/Vol] Normal Normal (0-1) mg/dL [facility] Absolute lymphocyte countOrd ered By: Sarah Hsu on 12-17-2022 Lymphocytes Auto (Unsp spec) [#/Vol] 1.52 10*3/uL 0.83-4.51 [facility] Basophil percentageOrdered B y: Sarah Hsu on 12-17-2022 Basophils/100 WBC (Bld) 0.9 % 0-1 [facility] Bilirubin [Mass/Vol] 0.30 mg/dL 0.20-1.00 [facility] Comment on above: For patients on eltr ombopag therapy, use of Dim[employer] [place] TBIL is not recommended. Chloride [Moles/Vol] 111 mmol/L 98-107 [facility] Eosinophils/100 WBC (Bld) 2.4 % 0-5 [facility] Glucose [Mass/Vol] 102 mg/dL 74-106 [facility] Comment on above: Fasting Glucose resu lt from 100 to 125 mg/dL suggests IMPAIRED HOMEOSTASIS per A.D.A. criteria. Neutrophils (Bld) [#/Vol] 3.1 10*3/uL 2.0-7.7 [facility] Neutrophils/100 WBC (Bld) 58.3 % 47-70 [facility] Potassium [Moles/Vol] 4.7 mmol/L 3.5-5.1 [facility] Protein [Mass/Vol] 5.6 g/dL 6.4-8.2 [facility] Sodium [Moles/Vol] 141 mmol/L 136-145 [facility] WBC (Bld) [#/Vol] 5.3 10*3/uL 4.4-11.0 [facility] Blood erythrocytes count (nu mber/volume)Ordered By: Sarah Hsu on 12-17-2022 RBC (Bld) [#/Vol] 5.18 10*6/uL 4.6-6.2 [facility] Blood hemoglobin measurement (mass/volume)Ordered By: Sarah Hsu on 12-17-2022 Hemoglobin (Bld) [Mass/Vol] 14.9 g/dL 13.0-16.5 [facility] Blood lymphocytes/100 leukoc ytesOrdered By: Sarah Shadi on 12-17-2022 Lymphocytes/100 WBC (Bld) 28.6 % 19-41 [facility] Blood monocytes/100 leukocyt esOrdered By: Sarah Shadi on 12-17-2022 Monocytes/100 WBC (Bld) 9.4 % 0-10 [facility] Blood platelet mean volumeOr dered By: Sarah Shadi on 12-17-2022 Platelet mean volume (Bld) [Entitic vol] 10.3 fL 6.2-12.0 [facility] Determination of erythrocyte mean corpuscular volume (MCV)Ordered By: Sarah Shadi on 12-17-2022 MCV (RBC) [Entitic vol] 89.2 fL 80-94 [facility] Hematocrit Auto (Bld) [Volum e fraction]Ordered By: Sarah Shadi on 12-17-2022 Hematocrit (Bld) [Volume fraction] 46.2 % 40-54 [facility] Laboratory - Chemistry and C hemistry - challengeOrdered By: Sarah Hsu on 12-17-2022 ALP [Catalytic activity/Vol] 62 U/L 45-117 [facility] ALT [Catalytic activity/Vol] 26 U/L 16-61 [facility] CO2 [Moles/Vol] 26.0 mmol/L 21.0-32.0 [facility] Globulin (S) [Mass/Vol] 2.8 g/dL 2.2-4.2 [facility] Urea nitrogen/Creatinine [Mass ratio] 14.1 mg/mg 10-20 [facility] Magnesium [Mass/Vol] 2.2 mg/dL 1.6-2.6 [facility] Comment on above: Moderate Hemolysis, Result may be falsely increased. Laboratory - Hematology and Cell countsOrdered By: Sarah Hsu on 12-17-2022 Erythrocyte distribution width (RBC) [Entitic vol] 42.4 fL 35.1-43.9 [facility] Erythrocyte distribution width (RBC) [Ratio] 12.9 % 11.6-14.6 [facility] Immature granulocytes/100 WBC (Bld) 0.400 % 0.0-0.9 [facility] Comment on above: IG% - Immature Granu locytes (promyelocytes, myelocytes and metamyelocytes) > 1% indicates that a LEFT SHIFT is Present. MCH (RBC) [Entitic mass] 28.8 pg 27.0-32.0 [facility] Nucleated RBC/100 WBC (Bld) [Ratio] 0 % 0-5 [facility] MCHC Auto (RBC) [Mass/Vol]Or dered By: Sarah Hsu on 12-17-2022 MCHC (RBC) [Mass/Vol] 32.3 g/dL 32-36 [facility] No Panel InformationOrdered By: [facility] Shadi on 12-17-2022 Troponin I High Sensitivity 137 pg/mL 3.0-78.0 [facility] Comment on above: Critical Result(s) C alled at: 08:49:47 12/17/2022 by: Maddie Mark to Jessica. Results read back by same. Please Note: New Test Units and Gender Specific Reference Ranges. For more information see Policy Stat Procedure [place] High Sensitivity Troponin (TNIH) and attachments. Estimated Creatinine Clearance Calc 43.45 ml/min [facility] Estimated GFR (MDRD) Amer 61 mL/min >60 [facility] Comment on above: GFR Calc Estimated GFR (MDRD) Non-Af Amer 51 mL/min >60 [facility] Comment on above: Non- GFR Calc Platelets bldOrdered By: Kathleen Hsu on 12-17-2022 Platelets (Bld) [#/Vol] 177 10*3/uL 150-450 [facility] Serum or plasma albumin aric urement (mass/volume)Ordered By: Sarah Hsu on 12-17-2022 Albumin [Mass/Vol] 2.8 g/dL 3.2-5.0 [facility] Serum or plasma albumin/glob ulin mass ratioOrdered By: Sarah Hsu on 12-17-2022 Albumin/Globulin [Mass ratio] 1.0 {ratio} 0.9-2.4 [facility] Serum or plasma calcium aric urement (mass/volume)Ordered By: Sarah Hsu on 12-17-2022 Calcium [Mass/Vol] 7.8 mg/dL 8.5-10.1 [facility] Serum or plasma creatinine m easurement (mass/volume)Ordered By: Sarah Hsu on 12-17-2022 Creatinine [Mass/Vol] 1.42 mg/dL 0.70-1.30 [facility] Comment on above: The validity of the calculated GFR & GFRAA in patients over 70 years has not been determined. Clinical correlation is essential. Serum or plasma urea nitroge n measurement (mass/volume)Ordered By: Sarah Hsu on 12-17-2022 Urea nitrogen [Mass/Vol] 20 mg/dL 7-18 [facility] Thin prep Papanicolaou smear with manual screeningOrdered By: Sarah Hsu on 12-17-2022 Thin prep Papanicolaou smear with manual screening 15 U/L 15-37 [facility] Thin prep Papanicolaou smear with manual screening 4 5-15 [facility] Absolute lymphocyte countOrd ered By: Dr. Lester on 10-22-2022 Lymphocytes Auto (Unsp spec) [#/Vol] 1.54 10*3/uL 0.83-4.51 [facility] Basophil percentageOrdered B y: Dr. Lester on 10-22-2022 Basophils/100 WBC (Bld) 1.1 % 0-1 [facility] Bilirubin [Mass/Vol] 0.50 mg/dL 0.20-1.00 [facility] Comment on above: For patients on eltr ombopag therapy, use of Dimension [place] TBIL is not recommended. Chloride [Moles/Vol] 112 mmol/L 98-107 [facility] Eosinophils/100 WBC (Bld) 2.8 % 0-5 [facility] Glucose [Mass/Vol] 97 mg/dL 74-106 [facility] Neutrophils (Bld) [#/Vol] 3.0 10*3/uL 2.0-7.7 [facility] Neutrophils/100 WBC (Bld) 55.7 % 47-70 [facility] Potassium [Moles/Vol] 4.4 mmol/L 3.5-5.1 [facility] Protein [Mass/Vol] 6.8 g/dL 6.4-8.2 [facility] Sodium [Moles/Vol] 139 mmol/L 136-145 [facility] WBC (Bld) [#/Vol] 5.4 10*3/uL 4.4-11.0 [facility] Blood erythrocytes count (nu mber/volume)Ordered By: Dr. Lester on 10-22-2022 RBC (Bld) [#/Vol] 5.43 10*6/uL 4.6-6.2 [facility] Blood hemoglobin measurement (mass/volume)Ordered By: Dr. Lester on 10-22-2022 Hemoglobin (Bld) [Mass/Vol] 16.0 g/dL 13.0-16.5 [facility] Blood lymphocytes/100 leukoc ytesOrdered By: Dr. Lester on 10-22-2022 Lymphocytes/100 WBC (Bld) 28.8 % 19-41 [facility] Blood monocytes/100 leukocyt esOrdered By: Dr. Lester on 10-22-2022 Monocytes/100 WBC (Bld) 11.2 % 0-10 [facility] Blood platelet mean volumeOr dered By: Dr. Lester on 10-22-2022 Platelet mean volume (Bld) [Entitic vol] 10.6 fL 6.2-12.0 [facility] Determination of erythrocyte mean corpuscular volume (MCV)Ordered By: Dr. Lester on 10-22-2022 MCV (RBC) [Entitic vol] 89.5 fL 80-94 [facility] Erythrocyte sedimentation ra teOrdered By: Dr. Lester on 10-22-2022 ESR (Bld) [Velocity] 11 mm/h 0-20 [facility] Hematocrit Auto (Bld) [Volum e fraction]Ordered By: Dr. Lester on 10-22-2022 Hematocrit (Bld) [Volume fraction] 48.6 % 40-54 [facility] Laboratory - Chemistry and C hemistry - challengeOrdered By: Dr. Lester on 10-22-2022 ALP [Catalytic activity/Vol] 62 U/L 45-117 [facility] ALT [Catalytic activity/Vol] 28 U/L 16-61 [facility] CO2 [Moles/Vol] 23.0 mmol/L 21.0-32.0 [facility] Globulin (S) [Mass/Vol] 3.5 g/dL 2.2-4.2 [facility] Urea nitrogen/Creatinine [Mass ratio] 12.7 mg/mg 10-20 [facility] Laboratory - Hematology and Cell countsOrdered By: Dr. Lester on 10-22-2022 Erythrocyte distribution width (RBC) [Entitic vol] 43.7 fL 35.1-43.9 [facility] Erythrocyte distribution width (RBC) [Ratio] 13.5 % 11.6-14.6 [facility] Immature granulocytes/100 WBC (Bld) 0.400 % 0.0-0.9 [facility] Comment on above: IG% - Immature Granu locytes (promyelocytes, myelocytes and metamyelocytes) > 1% indicates that a LEFT SHIFT is Present. MCH (RBC) [Entitic mass] 29.5 pg 27.0-32.0 [facility] Nucleated RBC/100 WBC (Bld) [Ratio] 0 % 0-5 [facility] MCHC Auto (RBC) [Mass/Vol]Or dered By: Dr. Lester on 10-22-2022 MCHC (RBC) [Mass/Vol] 32.9 g/dL 32-36 [facility] No Panel InformationOrdered By: Dr. Lester on 10-22-2022 Estimated GFR (MDRD) Amer 51 mL/min >60 [facility] Comment on above: GFR Calc Estimated GFR (MDRD) Non-Af Amer 42 mL/min >60 [facility] Comment on above: Non- GFR Calc Platelets bldOrdered By: Dr. Lester on 10-22-2022 Platelets (Bld) [#/Vol] 205 10*3/uL 150-450 [facility] Serum or plasma C reactive p rotein measurement (mass/volume)Ordered By: Dr. Lester on 10-22-2022 CRP [Mass/Vol] mg/L 0.0-3.0 [facility] Comment on above: C-Reactive Protein ( CRP) provides useful information for thediagnosis, therapy and monitoring of inflammatory processesand associated diseases. For the evaluation of Relative Riskfor Cardiovascular Disease, a High Sensitivity CRP (HSCRP)should be ordered. Serum or plasma albumin aric urement (mass/volume)Ordered By: Dr. Lester on 10-22-2022 Albumin [Mass/Vol] 3.3 g/dL 3.2-5.0 [facility] Serum or plasma albumin/glob ulin mass ratioOrdered By: Dr. Lester on 10-22-2022 Albumin/Globulin [Mass ratio] 0.9 {ratio} 0.9-2.4 [facility] Serum or plasma calcium aric urement (mass/volume)Ordered By: Dr. Lester on 10-22-2022 Calcium [Mass/Vol] 8.7 mg/dL 8.5-10.1 [facility] Serum or plasma creatinine m easurement (mass/volume)Ordered By: Dr. Lester on 10-22-2022 Creatinine [Mass/Vol] 1.66 mg/dL 0.70-1.30 [facility] Comment on above: The validity of the calculated GFR & GFRAA in patients over 70 years has not been determined. Clinical correlation is essential. Serum or plasma urea nitroge n measurement (mass/volume)Ordered By: Dr. Lester on 10-22-2022 Urea nitrogen [Mass/Vol] 21 mg/dL 7-18 [facility] Thin prep Papanicolaou smear with manual screeningOrdered By: Dr. Lester on 10-22-2022 Thin prep Papanicolaou smear with manual screening 18 U/L 15-37 [facility] Thin prep Papanicolaou smear with manual screening 4 5-15 [facility] Basophil percentageOrdered B y: Dr. Gimenez on 08-17-2022 Chloride [Moles/Vol] 107 mmol/L 98-107 [facility] Glucose [Mass/Vol] 160 mg/dL 74-106 [facility] Comment on above: Fasting Glucose resu lt greater than or equal to 126 mg/dL suggests DIABETES MELLITUS per A.D.A. criteria. Potassium [Moles/Vol] 4.4 mmol/L 3.5-5.1 [facility] Sodium [Moles/Vol] 141 mmol/L 136-145 [facility] Laboratory - Chemistry and C hemistry - challengeOrdered By: Dr. Gimenez on 08-17-2022 CO2 [Moles/Vol] 27.0 mmol/L 21.0-32.0 [facility] Urea nitrogen/Creatinine [Mass ratio] 13.5 mg/mg 10- [facility] No Panel InformationOrdered By: Dr. Gimenez on 08-17-2022 Estimated GFR (MDRD) Amer 56 mL/min >60 [facility] Comment on above: GFR Calc Estimated GFR (MDRD) Non-Af Amer 46 mL/min >60 [facility] Comment on above: Non- GFR Calc Serum or plasma calcium aric urement (mass/volume)Ordered By: Dr. Gimenez on 08-17-2022 Calcium [Mass/Vol] 8.4 mg/dL 8.5-10.1 [facility] Serum or plasma creatinine m easurement (mass/volume)Ordered By: Dr. Gimenez on 08-17-2022 Creatinine [Mass/Vol] 1.55 mg/dL 0.70-1.30 [facility] Comment on above: The validity of the calculated GFR & GFRAA in patients over 70 years has not been determined. Clinical correlation is essential. Serum or plasma urea nitroge n measurement (mass/volume)Ordered By: Dr. Gimenez on 01-20-2023 Urea nitrogen [Mass/Vol] 21 mg/dL 7-18 [facility] Thin prep Papanicolaou smear with manual screeningOrdered By: Dr. Gimenez on 08-17-2022 Thin prep Papanicolaou smear with manual screening 7 5-15 [facility] Laboratory - Microbiology an d Antimicrobial susceptibilityon 08-06-2022 SARS-CoV-2 (COVID-19) RNA RIVKA+probe Ql (Unsp spec) Not detected [facility] No Panel Informationon 08-06 Influenza Types A,B Rapid (Clinic) Not detected [facility] ALDOSTERONE (71200)Ordered B y: Windows Application Packager on 05-03-2022 Aldosterone [Mass/Vol] 8.5 ng/dL Normal 0.0-30.0 [facility]; [facility] Work Phone: Comment on above: Test(s) 084357-Djlkg terone; 311085-Ptnnj Activity, Plasmawas developed and its performance characteristics determinedby [employer]. It has not been cleared or approved by the Foodand Drug Administration.PATIENT NOT FASTINGPERFORMED BY: [employer] [facility] [id number] BY: Cross MediaworksNovant Health Ballantyne [facility] Center [id number] CORTISOL, A.M. (56727)Ordere d By: Windows Application Packager on 05-03-2022 Cortisol AM peak specimen [Mass/Vol] 12.7 ug/dL Normal 6.2-19.4 [facility]; [facility] Work Phone: Comment on above: Test(s) 960199-Uzjod terone; 984045-Ieclo Activity, Plasmawas developed and its performance characteristics determinedby [employer]. It has not been cleared or approved by the Foodand Drug Administration.PATIENT NOT FASTINGPERFORMED BY: [employer]1447 [facility] [id number] BY: [employer]70 InvoTekNovant Health Ballantyne Medical Center [id number] RENIN ([id number])Ordered By: maykel tem Corporate Risk Analyst on 05-03-2022 Renin (P) [Catalytic activity/Vol] 1.135 {ng/mL/hr} Normal 0.167-5.38 0 [facility]; [facility] Work Phone: Comment on above: Test(s) 899078-Rmngd terone; 524370-Ttrhh Activity, Plasmawas developed and its performance characteristics determinedby [employer]. It has not been cleared or approved by the Foodand Drug Administration.PATIENT NOT FASTINGPERFORMED BY: iQVCloud[address] [id number] BY: iQVCloudAscension St. John Hospital6370 [facility] [id number] Basophil percentageOrdered B y: Dr. Zayas on 05-01-2022 Potassium [Moles/Vol] 5.2 mmol/L 3.5-5.1 [facility] CALCIFIDIOL (43684) VIT D 25 Ordered By: Windows Application Packager on 04-27-2022 25-hydroxyvitamin D [Mass/Vol] 36.1 ng/mL Normal 30.0-100.0 [facility]; [facility] Work Phone: Comment on above: Vitamin D deficiency has been defined by the [place] ofMedicine and an Endocrine Society practice guideline as alevel of serum 25-OH vitamin D less than 20 ng/mL (1,2).The Endocrine Society went on to further define vitamin Dinsufficiency as a level between 21 and 29 ng/mL (2).1. IOM ([place] of Medicine). 2010. Dietary reference intakes for calcium and D. [place]: The National Academies Press.2. Meme MF, Lian ANDERSON, Donald HERNANDEZ, et al. Evaluation, treatment, and prevention of vitamin D deficiency: an Endocrine Society clinical practice guideline. JCEM. 2010; 96(7):1911-30. PATIENT WAS FASTINGP ERFORMED BY: SensoristLourdes Medical Center of Burlington CountyJdtoup7927 [facility] [id number] CBC W/AUTO DIFF WBC (48683)O rdered By: [employer] Application Packager on 04-27-2022 Basophils (Bld) [#/Vol] 0.1 10*3/uL Normal 0.0-0.2 [facility]; [facility] Work Phone: Comment on above: PATIENT WAS FASTINGP ERFORMED BY: AMY [employer] Ohitcw7[address] [place] [id number] Basophils/100 WBC (Bld) 1 % Normal [facility]; [facility] Work Phone: Comment on above: PATIENT WAS FASTINGP ERFORMED BY: AMY [facility] Vahwin55[address] [place] [id number] Eosinophils (Bld) [#/Vol] 0.2 10*3/uL Normal 0.0-0.4 [facility]; [facility] Work Phone: Comment on above: PATIENT WAS FASTINGP ERFORMED BY: [employer] Ixuavj7[address] [place] [id number] Eosinophils/100 WBC (Bld) 3 % Normal [facility]; [facility] Work Phone: Comment on above: PATIENT WAS FASTINGP ERFORMED BY: Labsaint francis [facility] services Zpungz[address] [facility] [id number] Erythrocyte distribution width (RBC) [Ratio] 13.1 % Normal 11.6-15.4 [facility]; [facility] Work Phone: Comment on above: PATIENT WAS FASTINGP ERFORMED BY: [facility] Iliskc[address] [facility]in [place] [id number] Hematocrit (Bld) [Volume fraction] 48.9 % Normal 37.5-51.0 [facility]; [facility] Work Phone: Comment on above: PATIENT WAS FASTINGP ERFORMED BY: [employer] Txojvs[address] [facility] [id number] Hemoglobin (Bld) [Mass/Vol] 16.3 g/dL Normal 13.0-17.7 [facility]; [facility] Work Phone: Comment on above: PATIENT WAS FASTINGP ERFORMED BY: [facility] Xewyrx7[address] [place] [id number] Immature granulocytes (Bld) [#/Vol] 0.0 10*3/uL Normal 0.0-0.1 [facility]; [facility] Work Phone: Comment on above: PATIENT WAS FASTINGP ERFORMED BY: [facility] Lkjotw[address] [facility] [place] [id number] Immature granulocytes/100 WBC (Bld) 0 % Normal [facility]; [facility] Work Phone: Comment on above: PATIENT WAS FASTINGP ERFORMED BY: LabcoLourdes Medical Center of Burlington CountyJwdqdn7018 [address] RoadNovant Health Brunswick Medical Centerin [place] [id number] Lymphocytes (Bld) [#/Vol] 2.0 10*3/uL Normal 0.7-3.1 [facility]; [facility] Work Phone: Comment on above: PATIENT WAS FASTINGP ERFORMED BY: LabAscension St. John Hospital[address] [facility] [id number] Lymphocytes/100 WBC (Bld) 34 % Normal [facility]; [facility] Work Phone: Comment on above: PATIENT WAS FASTINGP ERFORMED BY: LabAscension St. John Hospital6370 [facility] [id number] MCH (RBC) [Entitic mass] 29.5 pg Normal 26.6-33.0 [facility]; [facility] Work Phone: Comment on above: PATIENT WAS FASTINGP ERFORMED BY: LabcoLourdes Medical Center of Burlington CountyKzultg8430 [facility] [id number] MCHC (RBC) [Mass/Vol] 33.3 g/dL Normal 31.5-35.7 [facility] prehensive Internal Medicine; [facility] Work Phone: Comment on above: PATIENT WAS FASTINGP ERFORMED BY: [facility] Qwnppa[address] [facility]in [place] [id number] MCV (RBC) [Entitic vol] 89 fL Normal 79-97 [facility]; [facility] Work Phone: Comment on above: PATIENT WAS FASTINGP ERFORMED BY: [facility] Afijwj[address] [facility]in [place] [id number] Monocytes (Bld) [#/Vol] 0.5 10*3/uL Normal 0.1-0.9 [facility]; [facility] Work Phone: Comment on above: PATIENT WAS FASTINGP ERFORMED BY: AMY [facility] Pxhfar4006 [address] RoadDublin [place] [id number] Monocytes/100 WBC (Bld) 9 % Normal [facility]; [facility] Work Phone: Comment on above: PATIENT WAS FASTINGP ERFORMED BY: CB [facility] Zznpao4721 [address] RoadDublin [place] [id number] Neutrophils (Bld) [#/Vol] 3.2 10*3/uL Normal 1.4-7.0 [facility]; [facility] Work Phone: Comment on above: PATIENT WAS FASTINGP ERFORMED BY: AMY [facility] Vuxxjk3059 [address] RoadDublin [place] [id number] Neutrophils/100 WBC (Bld) 53 % Normal [facility]; [facility] Work Phone: Comment on above: PATIENT WAS FASTINGP ERFORMED BY: CB [facility] Xtbwnk2968 [address] RoadDublin [place] [id number] Platelets (Bld) [#/Vol] 210 10*3/uL Normal 150-450 [facility]; [facility] Work Phone: Comment on above: PATIENT WAS FASTINGP ERFORMED BY: AMY [facility] Neaseo9063 [address] RoadDublin [place] [id number] RBC (Bld) [#/Vol] 5.52 10*6/uL Normal 4.14-5.80 Compr ehensive Internal Medicine; [facility] Work Phone: Comment on above: PATIENT WAS FASTINGP ERFORMED BY: CB [facility] Ftqfzy2029 [address] RoadDublin [place] [id number] WBC (Bld) [#/Vol] 6.0 10*3/uL Normal 3.4-10.8 Compre hensive [facility] Medicine; [facility] Work Phone: Comment on above: PATIENT WAS FASTINGP ERFORMED BY: CB [facility] Xgavcg5671 [address] RoadDublin [place] [id number] LIPID PANEL (99250)Ordered B y: Windows Application Packager on 04-27-2022 Cholesterol [Mass/Vol] 282 mg/dL Abnormal 100-199 [facility]; [facility] Work Phone: Comment on above: PATIENT WAS FASTINGP ERFORMED BY: AMY [facility] Votrif0688 [address] RoadDublin [place] [id number] Cholesterol in HDL [Mass/Vol] 41 mg/dL Normal [facility]; [facility] Work Phone: Comment on above: PATIENT WAS FASTINGP ERFORMED BY: CB [facility] Bzqnzh7892 [address] RoadDublin [place] [id number] Triglyceride [Mass/Vol] 262 mg/dL Abnormal 0-149 [facility]; [facility] Work Phone: Comment on above: PATIENT WAS FASTINGP ERFORMED BY: AMY [facility] Dqvwsm3955 [address] RoadDublin [place] [id number] LIPID PANEL (91346) 51 mg/dL Abnormal 5-40 Compr ensive [facility]; [facility] Work Phone: Comment on above: PATIENT WAS FASTINGP ERFORMED BY: CB [facility] Hhgboq6363 [address] RoadDublin [place] [id number] LIPID PANEL (38197) 190 mg/dL Abnormal 0-99 [facility]ensive [facility]; [facility] Work Phone: Comment on above: PATIENT WAS FASTINGP ERFORMED BY: CB [facility] Mqndcd6038 [address] RoadDublin [place] [id number] LIPID PANEL (80982) 4.6 {ratio} Abnormal 0.0-3.6 [facility] Servicesensive [facility]; [facility] Work Phone: Comment on above: LDL/HDL Ratio Men Wo men 1/2 Avg.Risk 1.0 1.5 Avg.Risk 3.6 3.2 2X Avg.Risk 6.2 5.0 3X Avg.Risk 8.0 6.1 PATIENT WAS FASTINGP ERFORMED BY: CB [facility] Zsemmr3899 [address] RoadDublin [place] [id number] METABOLIC PANEL, COMPREHENSI VE (91151)Ordered By: Windows Application Packager on 04-27-2022 Albumin [Mass/Vol] 3.9 g/dL Normal 3.6-4.6 [facility]; [facility] Work Phone: Comment on above: PATIENT WAS FASTINGP ERFORMED BY: CB [facility] Dzkkfw1028 [address] RoadDublin [place] [id number] Albumin/Globulin [Mass ratio] 1.7 {ratio} Normal 1.2-2.2 [facility]; [facility] Work Phone: Comment on above: PATIENT WAS FASTINGP ERFORMED BY: CB [facility] Gljvku3400 [address] RoadDublin [place] [id number] ALP [Catalytic activity/Vol] 70 U/L Normal 44-121 [facility]; [facility] Work Phone: Comment on above: PATIENT WAS FASTINGP ERFORMED BY: CB [facility] Albght6180 [address] RoadDublin [place] [id number] ALT [Catalytic activity/Vol] 17 U/L Normal 0-44 [facility]; [facility] Work Phone: Comment on above: PATIENT WAS FASTINGP ERFORMED BY: CB [facility] Rrosjn0721 [address] RoadDublin [place] [id number] AST [Catalytic activity/Vol] 16 U/L Normal 0-40 [facility]; [facility] Work Phone: Comment on above: PATIENT WAS FASTINGP ERFORMED BY: [facility] Xelxtw1569 [address] RoadDublin [place] [id number] Bilirubin [Mass/Vol] 0.5 mg/dL Normal 0.0-1.2 [facility] Internal [facility]; [facility] Work Phone: Comment on above: PATIENT WAS FASTINGP ERFORMED BY: CB [facility] Kcryli1992 [address] RoadDublin [place] [id number] Calcium [Mass/Vol] 8.8 mg/dL Normal 8.6-10.2 [facility]; [facility] Work Phone: Comment on above: PATIENT WAS FASTINGP ERFORMED BY: CB [facility] Wsripd0920 [address] RoadDublin [place] [id number] Chloride [Moles/Vol] 105 mmol/L Normal 96-106 Comp rehensive Internal Medicine; [facility] Work Phone: Comment on above: PATIENT WAS FASTINGP ERFORMED BY: AMY [facility] Zbrplc2609 [facility] [id number] CO2 [Moles/Vol] 23 mmol/L Normal 20-29 Comprehen [facility]; [facility] Work Phone: Comment on above: PATIENT WAS FASTINGP ERFORMED BY: [facility] Nzmppg1177 [facility] [id number] Creatinine [Mass/Vol] 1.56 mg/dL Abnormal 0.76-1.27 Com prehensive [facility]; [facility] Work Phone: Comment on above: PATIENT WAS FASTINGP ERFORMED BY: LabAscension St. [facility] Hospital6370 [facility] [id number] GFR/1.73 sq M.predicted among non-blacks MDRD (S/P/Bld) [Vol rate/Area] 44 mL/min/{1.73_m2} Abnormal Comprehensiv e Internal Medicine; [facility] Work Phone: Comment on above: PATIENT WAS FASTINGP ERFORMED BY: Labsaint [facility] Mlzgkb9476 [facility] [id number] Globulin (S) [Mass/Vol] 2.3 g/dL Normal 1.5-4.5 [facility]; [facility] Work Phone: Comment on above: PATIENT WAS FASTINGP ERFORMED BY: [facility] Diinkk8934 [facility] [id number] Glucose [Mass/Vol] 86 mg/dL Normal 70-99 Compre [facility]; [facility] Work Phone: Comment on above: Please note refere nce interval change PATIENT WAS FASTINGP ERFORMED BY: [facility] Hpbdyo5500 [facility] [id number] Potassium [Moles/Vol] 5.4 mmol/L Abnormal 3.5-5.2 Com prehensive [facility] Medicine; [facility] Work Phone: Comment on above: PATIENT WAS FASTINGP ERFORMED BY: AMY Labcoabida Hldmfq5981 [address] RoadDublin [place] [id number] Protein [Mass/Vol] 6.2 g/dL Normal 6.0-8.5 [facility]; [facility] Work Phone: Comment on above: PATIENT WAS FASTINGP ERFORMED BY: AMY [facility] Emdupm1713 [address] RoadDublin [place] [id number] Sodium [Moles/Vol] 141 mmol/L Normal 134-144 [facility]; [facility] Work Phone: Comment on above: PATIENT WAS FASTINGP ERFORMED BY: AMY Labjaiden Hapjjl0374 [address] RoadDublin [place] [id number] Urea nitrogen [Mass/Vol] 23 mg/dL Normal 8-27 [facility]; [facility] Work Phone: Comment on above: PATIENT WAS FASTINGP ERFORMED BY: AMY [facility] Wocouy4502 [address] RoadDublin [place] [id number] Urea nitrogen/Creatinine [Mass ratio] 15 mg/mg Normal 10-24 [facility]; [facility] Work Phone: Comment on above: PATIENT WAS FASTINGP ERFORMED BY: AMY Castellanos Ylnmul[address] [facility] [place] [id number] MICROALBUMINOrdered By: Syst em Corporate Risk Analyst on 04-27-2022 Albumin DL <= 20 mg/L (U) [Mass/Vol] 3.5 ug/mL Normal [facility]; [facility] Work Phone: Comment on above: PATIENT WAS FASTINGP ERFORMED BY: AMY [facility] Noesdv1479 [address] RoadDublin [place] [id number] Albumin/Creatinine (U) [Mass ratio] 3 {mg/g_creat} Normal 0-29 [facility]; [facility] Work Phone: Comment on above: Normal: 0 - 29 Moder ately increased: 30 - 300 Severely increased: >300 PATIENT WAS FASTINGP ERFORMED BY: AMY Vale6370 [address] RoadDublin [place] [id number] Creatinine (U) [Mass/Vol] 112.5 mg/dL Normal [facility]; [facility] Work Phone: Comment on above: PATIENT WAS FASTINGP ERFORMED BY: AMY Vale6[address]Dublin [place] [id number] TSH ([id number])Ordered By: iZotopee m Corporate Risk Analyst on 04-27-2022 TSH Qn 1.790 {uIU/mL} Normal 0.450-4.50 0 [facility]; [facility] Work Phone: Comment on above: PATIENT WAS FASTINGP ERFORMED BY: AMY Vale6[address] [place] [id number] URINALYSIS, W/ MICRO ([id number]) Ordered By: Windows Application Packager on 04-27-2022 Appearance (U) Clear Normal Comprehens tri [facility]; [facility] Work Phone: Comment on above: PATIENT WAS FASTINGP ERFORMED BY: AMY Vale6[address] [place] [id number] Bilirubin Ql (U) Negative Normal Comprehe nsive Internal Medicine; [facility] Work Phone: Comment on above: PATIENT WAS FASTINGP ERFORMED BY: AMY Vale6[address] [place] [id number] Color (U) Yellow Normal [facility]; [facility] Work Phone: Comment on above: PATIENT WAS FASTINGP ERFORMED BY: AMY Labs[facility] Qlqmgm1801 [address] RoadDublin [place] [id number] Glucose Ql (U) Negative Normal Comprehens tri [facility]; [facility] Work Phone: Comment on above: PATIENT WAS FASTINGP ERFORMED BY: AMY Labmalaika Nwtldp9948 [address] RoadDublin [place] [id number] Hemoglobin Ql (U) Negative Normal Compreh ensive Internal Medicine; [facility] Work Phone: Comment on above: PATIENT WAS FASTINGP ERFORMED BY: CB [facility] Zcawts1918 [address]Dublin [place] [id number] Ketones Ql (U) Negative Normal Comprehens tri [facility]; [facility] Work Phone: Comment on above: PATIENT WAS FASTINGP ERFORMED BY: AMY [facility] Kkazux8238 [address] RoadDublin [place] [id number] Leukocyte esterase Test strip Ql (U) Negative Normal [facility]; [facility] Work Phone: Comment on above: PATIENT WAS FASTINGP ERFORMED BY: AMY [facility] Tnpjdy5379 [address] RoadDublin [place] [id number] Microscopic observation LM Nom (Urine sed) MICRON Normal [facility]; [facility] Work Phone: Comment on above: Microscopic follows if indicated. PATIENT WAS FASTINGP ERFORMED BY: AMY [facility] Yphibb4909 [address] RoadDublin [place] [id number] Microscopic observation LM Nom (Urine sed) See below: Normal [facility]; [facility] Work Phone: Comment on above: Microscopic was yany cated and was performed. PATIENT WAS FASTINGP ERFORMED BY: AMY [facility] Hljkge9506 [address] RoadDublin [place] [id number] Nitrite Ql (U) Negative Normal Comprehens tri [facility]; [facility] Work Phone: Comment on above: PATIENT WAS FASTINGP ERFORMED BY: AMY [facility] Sajeow1773 [address] RoadDublin [place] [id number] pH (U) 6.0 [pH] Normal 5.0-7.5 [facility]; [facility] Work Phone: Comment on above: PATIENT WAS FASTINGP ERFORMED BY: [facility] Giarjq4191 [address] RoadDublin [place] [id number] Protein Ql (U) Negative Normal Comprehens tri [facility]; [facility] Work Phone: Comment on above: PATIENT WAS FASTINGP ERFORMED BY: AMY [facility] Tprdmf0260 [address] RoadDublin [place] [id number] Specific gravity (U) [Rel density] 1.018 1 Normal 1.005-1.03 0 [facility]; [facility] Work Phone: Comment on above: PATIENT WAS FASTINGP ERFORMED BY: iQVCloudAscension St. John Hospital6370 [facility] [id number] Urobilinogen (U) [Mass/Vol] 0.2 mg/dL Normal 0.2-1.0 [facility]; [facility] Work Phone: Comment on above: PATIENT WAS FASTINGP ERFORMED BY: [facility]6370 [facility] [id number] Absolute lymphocyte counton 01-29-2022 Lymphocytes Auto (Unsp spec) [#/Vol] 1.70 10*3/uL 0.83-4.51 [facility] Work Phone: Basophil percentageon 2021 Basophils/100 WBC (Bld) 1.0 % 0-1 [facility] Work Phone: Chloride [Moles/Vol] 106 mmol/L 98-107 [facility] Work Phone: Eosinophils/100 WBC (Bld) 3.4 % 0-5 [facility] Work Phone: Glucose [Mass/Vol] 109 mg/dL 74-106 [facility] Work Phone: Comment on above: Fasting Glucose resu lt from 100 to 125 mg/dL suggests IMPAIRED HOMEOSTASIS per A.D.A. criteria. Neutrophils (Bld) [#/Vol] 3.6 10*3/uL 2.0-7.7 [facility] Work Phone: Neutrophils/100 WBC (Bld) 59.0 % 47-70 [facility] Work Phone: Potassium [Moles/Vol] 4.1 mmol/L 3.5-5.1 [facility] Work Phone: Comment on above: Slight Hemolysis, Re sult may be falsely increased. Sodium [Moles/Vol] 141 mmol/L 136-145 [facility] Work Phone: WBC (Bld) [#/Vol] 6.1 10*3/uL 4.4-11.0 [facility] Work Phone: Blood erythrocytes count (nu mber/volume)on 01-29-2022 RBC (Bld) [#/Vol] 5.85 10*6/uL 4.6-6.2 [facility]: Blood hemoglobin measurement (mass/volume)on 01-29-2022 Hemoglobin (Bld) [Mass/Vol] 16.7 g/dL 13.0-16.5 [facility] Work Phone: Blood lymphocytes/100 leukoc yteson 01-29-2022 Lymphocytes/100 WBC (Bld) 27.8 % 19-41 [facility] Work Phone: Blood monocytes/100 leukocyt eson 01-29-2022 Monocytes/100 WBC (Bld) 8.5 % 0-10 [facility] Work Phone: Blood platelet mean volumeon 01-29-2022 Platelet mean volume (Bld) [Entitic vol] 10.2 fL 6.2-12.0 [facility] Work Phone: Determination of erythrocyte mean corpuscular volume (MCV)on 01-29-2022 MCV (RBC) [Entitic vol] 87.5 fL 80-94 [facility] Work Phone: Hematocrit Auto (Bld) [Volum e fraction]on 01-29-2022 Hematocrit (Bld) [Volume fraction] 51.2 % 40-54 [facility] Work Phone: Laboratory - Chemistry and C hemistry - challengeon 01-29-2022 CO2 [Moles/Vol] 28.0 mmol/L 21.0-32.0 [facility] Work Phone: Urea nitrogen/Creatinine [Mass ratio] 9.6 mg/mg 10-20 [facility] Work Phone: Laboratory - Hematology and Cell countson 01-29-2022 Erythrocyte distribution width (RBC) [Entitic vol] 42.7 fL 35.1-43.9 [facility] Work Phone: Erythrocyte distribution width (RBC) [Ratio] 13.2 % 11.6-14.6 [facility] Work Phone: Immature granulocytes/100 WBC (Bld) 0.300 % 0.0-0.9 [facility] Work Phone: Comment on above: IG% - Immature Granu locytes (promyelocytes, myelocytes and metamyelocytes) > 1% indicates that a LEFT SHIFT is Present. MCH (RBC) [Entitic mass] 28.5 pg 27.0-32.0 [facility] Work Phone: Nucleated RBC/100 WBC (Bld) [Ratio] 0 % 0-5 [facility] Work Phone: MCHC Auto (RBC) [Mass/Vol]on 01-29-2022 MCHC (RBC) [Mass/Vol] 32.6 g/dL 32-36 [facility]: No Panel Informationon 01-29 Troponin I High Sensitivity 16 pg/mL 3.0-78.0 [facility] Work Phone: Comment on above: Please Note: New Saira t Units and Gender Specific Reference Ranges. For more information see Policy Stat Procedure [place] High Sensitivity Troponin (TNIH) and attachments. Estimated Creatinine Clearance Calc 34.18 ml/min [facility] Work Phone: Estimated GFR (MDRD) Amer 47 mL/min >60 [facility] Work Phone: Comment on above: GFR Calc Estimated GFR (MDRD) Non-Af Amer 39 mL/min >60 [facility] Work Phone: Comment on above: Non- GFR Calc Platelets bldon 01-29-2022 Platelets (Bld) [#/Vol] 200 10*3/uL 150-450 [facility] Work Phone: Serum or plasma calcium aric urement (mass/volume)on 01-29-2022 Calcium [Mass/Vol] 8.7 mg/dL 8.5-10.1 [facility] Work Phone: Serum or plasma creatinine m easurement (mass/volume)on 01-29-2022 Creatinine [Mass/Vol] 1.78 mg/dL 0.70-1.30 [facility] Work Phone: Comment on above: The validity of the calculated GFR & GFRAA in patients over 70 years has not been determined. Clinical correlation is essential. Serum or plasma urea nitroge n measurement (mass/volume)on 01-29-2022 Urea nitrogen [Mass/Vol] 17 mg/dL 7-18 [facility] Work Phone: Thin prep Papanicolaou smear with manual screeningon 01-29-2022 Thin prep Papanicolaou smear with manual screening 7 5-15 [facility] Work Phone: Absolute lymphocyte counton 10-17-2021 Lymphocytes Auto (Unsp spec) [#/Vol] 1.85 10*3/uL 0.83-4.51 [facility] Work Phone: Basophil percentageon 2021 Basophils/100 WBC (Bld) 0.8 % 0-1 [facility] Work Phone: Eosinophils/100 WBC (Bld) 5.2 % 0-5 [facility] Work Phone: Neutrophils (Bld) [#/Vol] 3.2 10*3/uL 2.0-7.7 [facility] Work Phone: Neutrophils/100 WBC (Bld) 53.6 % 47-70 [facility] Work Phone: WBC (Bld) [#/Vol] 6.0 10*3/uL 4.4-11.0 [facility] Work Phone: Bilirubin [Mass/Vol] 0.70 mg/dL 0.20-1.00 [facility] Work Phone: Comment on above: For patients on eltr ombopag therapy, use of Dimension [place] TBIL is not recommended. Chloride [Moles/Vol] 111 mmol/L 98-107 [facility] Work Phone: Glucose [Mass/Vol] 93 mg/dL 74-106 [facility] Work Phone: Potassium [Moles/Vol] 4.3 mmol/L 3.5-5.1 [facility]: Protein [Mass/Vol] 7.5 g/dL 6.4-8.2 [facility] Work Phone: Sodium [Moles/Vol] 138 mmol/L 136-145 [facility] Work Phone: Blood erythrocytes count (nu mber/volume)on 10-17-2021 RBC (Bld) [#/Vol] 5.81 10*6/uL 4.6-6.2 [facility] Work Phone: Blood hemoglobin measurement (mass/volume)on 10-17-2021 Hemoglobin (Bld) [Mass/Vol] 17.2 g/dL 13.0-16.5 [facility] Work Phone: Blood lymphocytes/100 leukoc yteson 10-17-2021 Lymphocytes/100 WBC (Bld) 31.0 % 19-41 [facility] Work Phone: Blood monocytes/100 leukocyt eson 10-17-2021 Monocytes/100 WBC (Bld) 9.2 % 0-10 [facility] Work Phone: Blood platelet mean volumeon 10-17-2021 Platelet mean volume (Bld) [Entitic vol] 10.2 fL 6.2-12.0 [facility] Work Phone: Determination of erythrocyte mean corpuscular volume (MCV)on 10-17-2021 MCV (RBC) [Entitic vol] 87.1 fL 80-94 [facility] Work Phone: Erythrocyte sedimentation ra diann 10-17-2021 ESR (Bld) [Velocity] 13 mm/h 0-20 [facility] Work Phone: Hematocrit Auto (Bld) [Volum e fraction]on 10-17-2021 Hematocrit (Bld) [Volume fraction] 50.6 % 40-54 [facility] Work Phone: Laboratory - Chemistry and C hemistry - challengeon 10-17-2021 ALP [Catalytic activity/Vol] 73 U/L 45-117 [facility] Work Phone: ALT [Catalytic activity/Vol] 27 U/L 16-61 [facility] Work Phone: CO2 [Moles/Vol] 21.0 mmol/L 21.0-32.0 [facility] Work Phone: Globulin (S) [Mass/Vol] 3.9 g/dL 2.2-4.2 [facility] Work Phone: Urea nitrogen/Creatinine [Mass ratio] 14.2 mg/mg 10-20 [facility] Work Phone: Laboratory - Hematology and Cell countson 10-17-2021 Erythrocyte distribution width (RBC) [Entitic vol] 40.5 fL 35.1-43.9 [facility] Work Phone: Erythrocyte distribution width (RBC) [Ratio] 12.9 % 11.6-14.6 [facility] Work Phone: Immature granulocytes/100 WBC (Bld) 0.200 % 0.0-0.9 [facility] Work Phone: Comment on above: IG% - Immature Granu locytes (promyelocytes, myelocytes and metamyelocytes) > 1% indicates that a LEFT SHIFT is Present. MCH (RBC) [Entitic mass] 29.6 pg 27.0-32.0 [facility] Work Phone: Nucleated RBC/100 WBC (Bld) [Ratio] 0 % 0-5 [facility] Work Phone: MCHC Auto (RBC) [Mass/Vol]on 10-17-2021 MCHC (RBC) [Mass/Vol] 34.0 g/dL 32-36 [facility] Work Phone: No Panel Informationon 10-17 Estimated GFR (MDRD) Amer 50 mL/min >60 [facility] Work Phone: Comment on above: GFR Calc Estimated GFR (MDRD) Non-Af Amer 42 mL/min >60 [facility] Work Phone: Comment on above: Non- GFR Calc Platelets bldon 10-17-2021 Platelets (Bld) [#/Vol] 223 10*3/uL 150-450 [facility] Work Phone: Serum or plasma C reactive p rotein measurement (mass/volume)on 10-17-2021 CRP [Mass/Vol] 4.66 mg/L 0.0-3.0 [facility] Work Phone: Comment on above: C-Reactive Protein ( CRP) provides useful information for thediagnosis, therapy and monitoring of inflammatory processesand associated diseases. For the evaluation of Relative Riskfor Cardiovascular Disease, a High Sensitivity CRP (HSCRP)should be ordered. Serum or plasma albumin aric urement (mass/volume)on 10-17-2021 Albumin [Mass/Vol] 3.6 g/dL 3.2-5.0 [facility] Work Phone: Serum or plasma albumin/glob ulin mass ratioon 10-17-2021 Albumin/Globulin [Mass ratio] 0.9 {ratio} 0.9-2.4 [facility] Work Phone: Serum or plasma calcium aric urement (mass/volume)on 10-17-2021 Calcium [Mass/Vol] 8.7 mg/dL 8.5-10.1 [facility] Work Phone: Serum or plasma creatinine m easurement (mass/volume)on 10-17-2021 Creatinine [Mass/Vol] 1.69 mg/dL 0.70-1.30 [facility] Work Phone: Comment on above: The validity of the calculated GFR & GFRAA in patients over 70 years has not been determined. Clinical correlation is essential. Serum or plasma urea nitroge n measurement (mass/volume)on 10-17-2021 Urea nitrogen [Mass/Vol] 24 mg/dL 7-18 [facility] Work Phone: Thin prep Papanicolaou smear with manual screeningon 10-17-2021 Thin prep Papanicolaou smear with manual screening 19 U/L 15-37 [facility] Work Phone: Thin prep Papanicolaou smear with manual screening 6 5-15 [facility] Work Phone: Rapid Strep Test, Office ([phone])Ordered By: Amina Elam on 08-29-2021 S. pyogenes Ag EIA Ql (Throat) Negative Normal [facility]; [facility] Work Phone: THROAT CULTURE ([phone])Ordere d By: Windows Application Packager on 08-29-2021 Bacteria identified Respiratory culture Nom (Unsp spec) Final report Normal [facility]; [facility] Work Phone: Comment on above: PATIENT NOT FASTINGP ERFORMED BY: LabCohBar [facility] [id number] Information: SRC:TH Bacteria identified Respiratory culture Nom (Unsp spec) RRF Normal [facility]; [facility] Work Phone: Comment on above: Routine respiratory giorgio PATIENT NOT FASTINGP ERFORMED BY: PubNub [facility] [id number] Information: SRC:TH No Panel Informationon 08-14 POC SARS CoV-2 Antigen Positive [facility] Work Phone: Laboratory - Microbiology an d Antimicrobial susceptibilityon 07-12-2021 SARS-CoV-2 (COVID-19) RNA RIVKA+probe Ql (Unsp spec) Not detected [facility] Work Phone: No Panel Informationon 07-12 POC Nasal Swab Influenza A,B Not detected [facility] Work Phone: POC Nasal Swab RSV Not detected [facility] Work Phone: POTASSIUM SERUM ([id number])Order ed By: Windows Application Packager on 04-14-2021 Potassium [Moles/Vol] 4.9 mmol/L Normal 3.5-5.2 [facility]; [facility] Work Phone: Comment on above: Test(s) 035329-SZPQ- CoV-2 Antibody, IgGhas not been FDA cleared or approved. This test hasbeen authorized by FDA under an Emergency Use Authorization(EUA). This test is only authorized for the duration of thedeclaration that circumstances exist justifying the authorizationof emergency use of in vitro diagnostics for detection and/ordiagnosis of COVID-19 under Section 564(b)(1) of the Act, 21U.S.C. 360bbb-3(b)(1), unless the authorization is terminated orrevoked sooner. This test has been authorized only for detectingthe presence of antibodies against SARS-CoV-2, not for any otherviruses or pathogens.PATIENT NOT FASTINGPERFORMED BY: LabCo Igfslo7172 [facility] [id number] SARS-CoV-2 Antibody, IgGOrde red By: Windows Application Packager on 04-14-2021 SARS-CoV-2 Antibody, IgG Negative Normal [facility]; [facility] Work Phone: Comment on above: This sample does not contain detectable SARS-CoV-2 IgG antibodies.This negative result does not rule out SARS-CoV-2 infection.Correlation with epidemiologic risk factors and other clinical andlaboratory findings is recommended. Serologic results should not beused as the sole basis to diagnose or exclude recent [id number].This assay was performed using the [employer] L[employer]ison(R)SARS-CoV-2 S1/S2 IgG assay.This assay detects antibodies against SARS-CoV-2 spike proteinincluding the receptor binding domain (RBD). Test(s) 959870-OTVF- CoV-2 Antibody, IgGhas not been FDA cleared or approved. This test hasbeen authorized by FDA under an Emergency Use Authorization(EUA). This test is only authorized for the duration of thedeclaration that circumstances exist justifying the authorizationof emergency use of in vitro diagnostics for detection and/ordiagnosis of COVID-19 under Section 564(b)(1) of the Act, 21U.S.C. 360bbb-3(b)(1), unless the authorization is terminated orrevoked sooner. This test has been authorized only for detectingthe presence of antibodies against SARS-CoV-2, not for any otherviruses or pathogens.PATIENT NOT FASTINGPERFORMED BY: iQVCloudCorewell [facility]6370 [facility] [id number] CALCIFEDIOL ([id number])Ordered B y: Windows Application Packager on 03-24-2021 25-hydroxyvitamin D [Mass/Vol] 38.6 ng/mL Normal 30.0-100.0 [facility]; [facility] Work Phone: Comment on above: Vitamin D deficiency has been defined by the [place] ofMedicine and an Endocrine Society practice guideline as alevel of serum 25-OH vitamin D less than 20 ng/mL (1,2).The Endocrine Society went on to further define vitamin Dinsufficiency as a level between 21 and 29 ng/mL (2).1. IOM ([place] of Medicine). 2010. Dietary reference intakes for calcium and D. [place]: The National Academies Press.2. Meme MF, Lian ANDERSON, Donald HERNANDEZ, et al. Evaluation, treatment, and prevention of vitamin D deficiency: an Endocrine Society clinical practice guideline. JCEM. 2010; 96(7):1911-30. Test(s) 373412-YSA-R ; 617563-CLD-C; 579342-Ndqzbahcympgu; 457851-Udxkbygvyhs, Total; 580552-GWK-K (Total); 108090-Xqyca LDL-P; 279510-GYZ Size; 413652-TA-UC Scorewas developed and its performance characteristics determinedby iQVCloudsaint francis hospital [facility] services. It has not been cleared or approved by the Foodand Drug Administration.PATIENT WAS FASTINGPERFORMED BY: [place] 806507 [facility] [id number] BY: iQVCloudCorewell [facility]6370 [facility] [id number] METABOLIC PANEL, COMPREHENSI VE ([id number])Ordered By: Windows Application Packager on 03-24-2021 Albumin [Mass/Vol] 4.0 g/dL Normal 3.7-4.7 [facility]; [facility] Work Phone: Comment on above: Test(s) 443280-EUC-D ; 300936-JNJ-U; 549363-Euiuzjlnkjcuj; 162817-Fydiixnulop, Total; 006802-FSN-V (Total); 204630-Qpnnp LDL-P; 697098-BGR Size; 004672-MW-PV Scorewas developed and its performance characteristics determinedby [employer]. It has not been cleared or approved by the Foodand Drug Administration.PATIENT WAS FASTINGPERFORMED BY: [employer] [address] [id number] BY: [employer]70 SoundTagCritical access hospital [id number] Albumin/Globulin [Mass ratio] 1.8 {ratio} Normal 1.2-2.2 [facility]; [facility] Work Phone: Comment on above: Test(s) 939914-HJR-N ; 386367-HRC-P; 889795-Znnsteveyxqud; 257193-Ahlonfodldw, Total; 049455-HWO-X (Total); 570269-Rqhuh LDL-P; 399757-YPU Size; 622515-RG-ZM Scorewas developed and its performance characteristics determinedby [employer]. It has not been cleared or approved by the Foodand Drug Administration.PATIENT WAS FASTINGPERFORMED BY: [employer] [address] [id number] BY: RupeeTimes6370 [facility] [id number] ALP [Catalytic activity/Vol] 57 U/L Normal 48-121 [facility]; [facility] Work Phone: Comment on above: Test(s) 860119-GYB-U ; 558377-PQJ-M; 203867-Srdsevxflylgs; 000809-Dyyqcguvrjm, Total; 358569-FTG-R (Total); 994753-Lpcyn LDL-P; 743061-WWP Size; 670899-WW-SD Scorewas developed and its performance characteristics determinedby [employer]. It has not been cleared or approved by the Foodand Drug Administration.PATIENT WAS FASTINGPERFORMED BY: AirXpanders[address] [id number] BY: [employer] Sfmwjp5797 [facility] [id number] ALT [Catalytic activity/Vol] 17 U/L Normal 0-44 [facility]; [facility] Work Phone: Comment on above: Test(s) 717871-YQS-T ; 930416-CMB-P; 072927-Janitgykkynfq; 111340-Koxzszcxbww, Total; 916767-RKB-J (Total); 461708-Vcwnm LDL-P; 639633-MUO Size; 603161-DH-AN Scorewas developed and its performance characteristics determinedby [employer]. It has not been cleared or approved by the Foodand Drug Administration.PATIENT WAS FASTINGPERFORMED BY: [employer] [address] [id number] BY: RupeeTimes6370 [facility] [id number] AST [Catalytic activity/Vol] 16 U/L Normal 0-40 [facility]; [facility] Work Phone: Comment on above: Test(s) 521658-GHK-N ; 460957-KOA-U; 591256-Zogmmpfmvsynm; 195996-Fglbjpmbymx, Total; 362623-WDM-B (Total); 972661-Iuhlp LDL-P; 352825-UFW Size; 974269-YH-XH Scorewas developed and its performance characteristics determinedby [employer]. It has not been cleared or approved by the Foodand Drug Administration.PATIENT WAS FASTINGPERFORMED BY: AirXpanders[address] [id number] BY: Nascent SurgicalLourdes Medical Center of Burlington CountyZyaiuh6190 [facility] [id number] Bilirubin [Mass/Vol] 0.5 mg/dL Normal 0.0-1.2 [facility]; [facility] Work Phone: Comment on above: Test(s) 821240-OFW-U ; 867615-DWX-W; 341009-Xyaoslnrwotdq; 423071-Gkdtgllowrc, Total; 297923-MPN-A (Total); 529267-Clgbu LDL-P; 965150-CSL Size; 601890-ZM-AR Scorewas developed and its performance characteristics determinedby [employer]. It has not been cleared or approved by the Foodand Drug Administration.PATIENT WAS FASTINGPERFORMED BY: Revel [employer] [id number] BY: [employer]70 InvoTekNovant Health Ballant[facility] Center [id number] Calcium [Mass/Vol] 9.1 mg/dL Normal 8.6-10.2 [facility]; [facility] Work Phone: Comment on above: Test(s) 549676-WDI-U ; 196153-ROK-A; 534986-Biywirokjigxr; 499363-Rhaowmvvecq, Total; 602083-CWJ-P (Total); 989812-Hholq LDL-P; 537473-QPP Size; 179505-YU-IO Scorewas developed and its performance characteristics determinedby [employer]. It has not been cleared or approved by the Foodand Drug Administration.PATIENT WAS FASTINGPERFORMED BY: Revel Body[address] [id number] BY: RupeeTimes6370 InvoTekNovant Health Ballant[facility] Center [id number] Chloride [Moles/Vol] 106 mmol/L Normal 96-106 [facility]; [facility] Work Phone: Comment on above: Test(s) 235049-GKV-C ; 112490-PJH-W; 303672-Kibiwkfhspxbs; 948972-Yffhfaxcsxm, Total; 058579-GPH-S (Total); 917557-Aladw LDL-P; 682243-YAI Size; 906566-HS-FX Scorewas developed and its performance characteristics determinedby On[employer]. It has not been cleared or approved by the Foodand Drug Administration.PATIENT WAS FASTINGPERFORMED BY: [employer] [address] [id number] BY: [employer]70 [facility] [id number] CO2 [Moles/Vol] 24 mmol/L Normal 20-29 [facility]; [facility] Work Phone: Comment on above: Test(s) 898307-ENX-H ; 439976-QQK-I; 126458-Juxyuomawovjj; 447912-Hzwkdddrttd, Total; 587987-VQR-F (Total); 978086-Hzfpg LDL-P; 068204-AVA Size; 173913-NM-AR Scorewas developed and its performance characteristics determinedby [employer]. It has not been cleared or approved by the Foodand Drug Administration.PATIENT WAS FASTINGPERFORMED BY: [employer] [address] [id number] BY: Nascent SurgicalGila Regional Medical CenterZnxzzk9649 [facility] [id number] Creatinine [Mass/Vol] 1.71 mg/dL Abnormal 0.76-1.27 [facility]; [facility] Work Phone: Comment on above: Test(s) 004534-BKZ-H ; 768268-ISD-I; 179364-Yphxfpkuxhlcf; 342401-Aqahxiywgih, Total; 490458-UBN-A (Total); 643208-Qmejd LDL-P; 505092-GPA Size; 126339-JQ-AI Scorewas developed and its performance characteristics determinedby On[employer]. It has not been cleared or approved by the Foodand Drug Administration.PATIENT WAS FASTINGPERFORMED BY: [employer] [address] [id number] BY: Nascent SurgicalLourdes Medical Center of Burlington CountySxfdon4307 [facility] [id number] GFR/1.73 sq M.predicted among blacks CKD-EPI (S/P/Bld) [Vol rate/Area] 43 mL/min/1.73 Abnormal [facility]; [facility] Work Phone: Comment on above: [facility]Cloudsaint franc[facility] currently reports eGFR in compliance with the current recommendations of the National Kidney Foundation. [facility]VCloudsaint franc[facility] will update reporting as new guidelines are published from the NKF-ASN Task force. Test(s) 998412-DRA-T ; 376684-HNA-O; 360308-Zehdaekhuquze; 599674-Cvrnxqnxunn, Total; 737402-JMI-S (Total); 005408-Hdwgl LDL-P; 353758-WBI Size; 456564-ED-XU Scorewas developed and its performance characteristics determinedby On[employer]. It has not been cleared or approved by the Foodand Drug Administration.PATIENT WAS FASTINGPERFORMED BY: [employer] [address] [id number] BY: [employer]70 [facility] [id number] GFR/1.73 sq M.predicted among non-blacks CKD-EPI (S/P/Bld) [Vol rate/Area] 37 mL/min/1.73 Abnormal [facility]; [facility] Work Phone: Comment on above: Test(s) 812784-APE-U ; 227159-PEP-O; 821886-Qywmmijfzbnao; 586501-Vakunfagyps, Total; 022207-AMN-B (Total); 492497-Jgwgp LDL-P; 943231-DHQ Size; 582097-MG-KC Scorewas developed and its performance characteristics determinedby On[employer]. It has not been cleared or approved by the Foodand Drug Administration.PATIENT WAS FASTINGPERFORMED BY: [employer] [address] [id number] BY: RupeeTimes6370 [facility] [id number] Globulin (S) [Mass/Vol] 2.2 g/dL Normal 1.5-4.5 [facility]; [facility] Work Phone: Comment on above: Test(s) 768114-CLY-W ; 564123-UVD-C; 379777-Sinmrxlfrubsn; 680649-Aqqjyegrsvl, Total; 106773-CKC-P (Total); 097456-Zdyze LDL-P; 348552-YEK Size; 539995-PF-JS Scorewas developed and its performance characteristics determinedby On[employer]. It has not been cleared or approved by the Foodand Drug Administration.PATIENT WAS FASTINGPERFORMED BY: AirXpanders[address] [id number] BY: [employer] Epkqch1555 Fult[facility] State HospitalLayer 4 CommunicationsNovant Health Ballantyne Medical Center [id number] Glucose [Mass/Vol] 89 mg/dL Normal 65-99 [facility]; [facility] Work Phone: Comment on above: Test(s) 298438-XOR-M ; 448399-ZVN-Z; 626177-Nwyzsentewwlf; 946355-Dfhhkoomdjq, Total; 569311-TWJ-S (Total); 244594-Kadzt LDL-P; 301695-WPN Size; 345834-ZQ-JW Scorewas developed and its performance characteristics determinedby Onzo. It has not been cleared or approved by the Foodand Drug Administration.PATIENT WAS FASTINGPERFORMED BY: Revel [employer] [id number] BY: RupeeTimes6370 [facility] [id number] Potassium [Moles/Vol] 5.4 mmol/L Abnormal 3.5-5.2 [facility]; [facility] Work Phone: Comment on above: Test(s) 242664-ZDU-E ; 201157-FDF-U; 101280-Akljmncdqauaf; 141917-Jcuijdhezej, Total; 497327-RQD-O (Total); 095798-Zwuyc LDL-P; 676649-OWZ Size; 682101-ET-CX Scorewas developed and its performance characteristics determinedby Onzo. It has not been cleared or approved by the Foodand Drug Administration.PATIENT WAS FASTINGPERFORMED BY: AirXpanders[address] [id number] BY: Nascent SurgicalLourdes Medical Center of Burlington CountyTibohg5301 [facility] [id number] Protein [Mass/Vol] 6.2 g/dL Normal 6.0-8.5 [facility]; [facility] Work Phone: Comment on above: Test(s) 739837-CDU-J ; 619772-QVT-H; 468783-Tbvjovtakstud; 880346-Lbldbgrljka, Total; 224452-CRX-D (Total); 197703-Xwkon LDL-P; 022687-EBD Size; 154655-XJ-BR Scorewas developed and its performance characteristics determinedby Onzo. It has not been cleared or approved by the Foodand Drug Administration.PATIENT WAS FASTINGPERFORMED BY: [employer] [address] [id number] BY: [employer] Cvsqhp6516 [facility] [id number] Sodium [Moles/Vol] 142 mmol/L Normal 134-144 [facility]; [facility] Work Phone: Comment on above: Test(s) 387515-GRH-T ; 727397-UED-N; 017483-Ldnwynawymcxw; 214959-Pbzvgnqubdn, Total; 063593-BWQ-D (Total); 435388-Jvcef LDL-P; 228345-AIT Size; 698827-BZ-KO Scorewas developed and its performance characteristics determinedby Onzo. It has not been cleared or approved by the Foodand Drug Administration.PATIENT WAS FASTINGPERFORMED BY: [employer] [address] [id number] BY: RupeeTimes6370 [facility] [id number] Urea nitrogen [Mass/Vol] 26 mg/dL Normal 8-27 [facility] Internal Medicine; [facility] Work Phone: Comment on above: Test(s) 708216-DCR-L ; 637786-NVI-G; 229858-Ixjpkfrfuwsdf; 575943-Vkzkkcyhiki, Total; 848710-HCG-D (Total); 399380-Ikjvy LDL-P; 518559-LKP Size; 824042-TV-TL Scorewas developed and its performance characteristics determinedby Onzo. It has not been cleared or approved by the Foodand Drug Administration.PATIENT WAS FASTINGPERFORMED BY: Revel Body[address] [id number] BY: RupeeTimes6370 [facility]Nov[facility] [id number] Urea nitrogen/Creatinine [Mass ratio] 15 mg/mg Normal 10-24 [facility]; [facility] Work Phone: Comment on above: Test(s) 371078-FRI-C ; 759359-AQQ-N; 529382-Qdrpeiwueknhl; 077502-Vrbqzwatfpm, Total; 463364-NIT-X (Total); 128656-Psthk LDL-P; 894217-HZM Size; 503856-PY-JH Scorewas developed and its performance characteristics determinedby Onzo. It has not been cleared or approved by the Foodand Drug Administration.PATIENT WAS FASTINGPERFORMED BY: Revel Body[address] [id number] BY: RupeeTimes6370 [facility]ekNov[facility] [id number] MICROALB;ASUNCION FUENTES (77413)Ordered By: Windows Application Packager on 03-24-2021 Albumin DL <= 20 mg/L (U) [Mass/Vol] mg/dL Normal [facility]; [facility] Work Phone: Comment on above: Test(s) 751030-BZJ-J ; 031064-CEO-P; 275518-Qbgtmnfvaqcrm; 290485-Wxxmgzjwqqq, Total; 982945-TPG-W (Total); 997086-Zdgho LDL-P; 814100-DMT Size; 321177-NO-KC Scorewas developed and its performance characteristics determinedby Onzo. It has not been cleared or approved by the Foodand Drug Administration.PATIENT WAS FASTINGPERFORMED BY: [employer] [address] [id number] BY: RupeeTimes6370 [address] [facility] [id number] Albumin/Creatinine (U) [Mass ratio] <2 Normal 0-29 [facility]; [facility] Work Phone: Comment on above: Normal: 0 - 29 Moder ately increased: 30 - 300 Severely increased: >300 Test(s) 323045-CZR-D ; 666661-JBT-E; 847978-Jewwbcmwxsqne; 422680-Mbyxkfiprdf, Total; 188587-TVG-G (Total); 981529-Fwvdm LDL-P; 193670-ZOE Size; 488383-RL-FL Scorewas developed and its performance characteristics determinedby Onzo. It has not been cleared or approved by the Foodand Drug Administration.PATIENT WAS FASTINGPERFORMED BY: Revel [employer] [id number] BY: [employer]70 [facility] [id number] Creatinine (U) [Mass/Vol] 167.2 mg/dL Normal [facility]; [facility] Work Phone: Comment on above: Test(s) 492681-ZRZ-Z ; 275326-PJC-Z; 713866-Qoenpsqciasov; 946506-Drgtivjuzcb, Total; 435141-ONH-H (Total); 343470-Xttek LDL-P; 763597-RSF Size; 715843-OW-IY Scorewas developed and its performance characteristics determinedby Onzo. It has not been cleared or approved by the Foodand Drug Administration.PATIENT WAS FASTINGPERFORMED BY: [employer] [address] [id number] BY: [employer] Amumot6272 [facility] [id number] NMR Profile (82451)Ordered B y: Windows Application Packager on 03-24-2021 Cholesterol [Mass/Vol] 297 mg/dL Abnormal 100-199 [facility]; [facility] Work Phone: Comment on above: Test(s) 028289-HBE-C ; 512902-DNM-W; 921763-Qimwfqrngadsj; 575775-Nulikzajzwi, Total; 224568-SAT-Y (Total); 571302-Suulg LDL-P; 669255-JEN Size; 229935-AJ-XT Scorewas developed and its performance characteristics determinedby Onzo. It has not been cleared or approved by the Foodand Drug Administration.PATIENT WAS FASTINGPERFORMED BY: BN LabCo[address] [id number] BY: [employer] Hucswz7737 [facility] [id number] Lipoprotein.alpha [Moles/Vol] 28.2 umol/L Abnormal [facility]; [facility] Work Phone: Comment on above: Test(s) 777197-JAA-R ; 337627-QSM-X; 610844-Xugzgxuayddvd; 466931-Mykaxdvtcwl, Total; 944502-IAK-S (Total); 055358-Rjile LDL-P; 914438-QIX Size; 451738-KH-RE Scorewas developed and its performance characteristics determinedby Onzo. It has not been cleared or approved by the Foodand Drug Administration.PATIENT WAS FASTINGPERFORMED BY: [employer] [address] [id number] BY: Arimaz6370 [facility] [id number] Lipoprotein.beta.subp article [Entitic length] 20.5 nm Abnormal [facility]; [facility] Work Phone: Comment on above: INTERPRETATIVE INFORMATION PARTICLE CONCENTRATION AND SIZE <--Lower CVD Risk Higher CVD Risk--> LDL AND HDL PARTICLES Percentile in Reference Population HDL-P (total) High 75th 50th 25th Low >34.9 34.9 30.5 26.7 <26.7 . Small LDL-P Low 25th 50th 75th High <117 117 527 839 >839 . LDL Size <-Large (Pattern A)-> <-Small (Pattern B)-> 23.0 20.6 20.5 19.0 Small LDL-P and LDL Size are associated with CVD risk, but not afterLDL-P is taken into account. Test(s) 561607-WBE-F ; 902550-HPM-Z; 571009-Nuljdbtlulmfx; 374276-Xerwvksvuna, Total; 740639-QVZ-D (Total); 754962-Isivg LDL-P; 293045-TYK Size; 404296-NX-AN Scorewas developed and its performance characteristics determinedby Onzo. It has not been cleared or approved by the Foodand Drug Administration.PATIENT WAS FASTINGPERFORMED BY: [employer] [address] [id number] BY: DERP TechnologiesUniversity Hospital [id number] Lipoprotein.beta.subp article [Moles/Vol] 3095 nmol/L Abnormal Com[facility]; [facility] Work Phone: Comment on above: Low < 1000 Moderate 1000 - 1299 Borderline-High 1300 - 1599 High 1600 - 2000 Very High > 2000 Test(s) 346220-FTZ-M ; 917078-NHX-I; 366709-Thitqhmhidnru; 549732-Gjbjrmgywsb, Total; 526940-OVV-R (Total); 375368-Wubqr LDL-P; 927795-IAW Size; 733334-GN-KQ Scorewas developed and its performance characteristics determinedby Onzo. It has not been cleared or approved by the Foodand Drug Administration.PATIENT WAS FASTINGPERFORMED BY: [employer] [address] [id number] BY: [employer]70 [facility] [id number] Lipoprotein.beta.subp article.small [Moles/Vol] 1626 nmol/L Abnormal [facility]; [facility] Work Phone: Comment on above: Test(s) 567483-OSM-X ; 723818-RHQ-O; 114600-Rmgnhalmruygz; 034639-Tgospxiwvfh, Total; 556316-RFO-R (Total); 787480-Vpqkd LDL-P; 813990-IFI Size; 075792-GG-VU Scorewas developed and its performance characteristics determinedby Onzo. It has not been cleared or approved by the Foodand Drug Administration.PATIENT WAS FASTINGPERFORMED BY: AirXpanders[address] [id number] BY: [employer] Hofqrc0148 [facility]TekNovant Health Ballant[facility] [id number] Triglyceride [Mass/Vol] 191 mg/dL Abnormal 0-149 [facility]; [facility] Internal Medicine Work Phone: Comment on above: Test(s) 955629-WHT-S ; 054394-QKC-H; 064973-Ckjyhhsbxfenp; 526961-Cvzdwstusmi, Total; 890867-CAV-R (Total); 847947-Gpwvc LDL-P; 982496-AFQ Size; 915648-KM-AA Scorewas developed and its performance characteristics determinedby Onzo. It has not been cleared or approved by the Foodand Drug Administration.PATIENT WAS FASTINGPERFORMED BY: [employer] [address] [id number] BY: [employer]70 [address] LeotusNovant Health Ballant[facility] [id number] NMR Profile (85124) 215 mg/dL Abnormal 0-99 [facility] Internal Medicine; [facility] Internal Medicine Work Phone: Comment on above: . Optimal < 100 Abov e optimal 100 - 129 Borderline 130 - 159 High 160 - 189 Very high > 189 . Test(s) 528168-TOD-W ; 788404-QZR-T; 792732-Qqlrsdcuyggry; 351924-Kbzezvawdgm, Total; 822973-IVA-Y (Total); 107527-Kvafh LDL-P; 100166-LWO Size; 317282-NB-LO Scorewas developed and its performance characteristics determinedby Onzo. It has not been cleared or approved by the Foodand Drug Administration.PATIENT WAS FASTINGPERFORMED BY: [employer] [address] [id number] BY: [employer]70 [place] [facility] [id number] NMR Profile (20370) 45 mg/dL Normal [facility]; [facility] Work Phone: Comment on above: Test(s) 185779-KZO-W ; 225610-GPS-B; 218623-Bihadiuwspqnx; 703856-Clhfskexynj, Total; 213170-DTU-U (Total); 257376-Hionb LDL-P; 565207-UCE Size; 420401-XA-CL Scorewas developed and its performance characteristics determinedby Onzo. It has not been cleared or approved by the Foodand Drug Administration.PATIENT WAS FASTINGPERFORMED BY: Wi[employer] [place] [address] [id number] BY: Cold CrateCarroll [facility] Memorial Hospital [id number] TSH (THYROID STIMULATING HOR CHRISTIANO) (69285)Ordered By: Windows Application Packager on 03-24-2021 TSH Qn 1.610 {uIU/mL} Normal 0.450-4.50 0 [facility]; [facility] Work Phone: Comment on above: Test(s) 998532-GHW-V ; 499074-OIL-N; 264444-Qygyztspwhshl; 430239-Fvcstxnlrwg, Total; 152157-DUJ-G (Total); 949779-Nblee LDL-P; 611600-XSQ Size; 228449-DH-HB Scorewas developed and its performance characteristics determinedby Onzo. It has not been cleared or approved by the Foodand Drug Administration.PATIENT WAS FASTINGPERFORMED BY: Revel Body[address] [id number] BY: [employer]70 [employer] formerly e-academyCarroll County Memorial Hospital [id number] Metabolic Panel, Basic (8004 8)Ordered By: Windows Application Packager on 10-20-2020 Calcium [Mass/Vol] 9.4 mg/dL Normal 8.6-10.2 [facility] Internal Medicine; [facility] Work Phone: Comment on above: assure GFR is in BMP ; PATIENT NOT FASTINGPERFORMED BY: Cold CrateCar[facility] Hospital [id number] Chloride [Moles/Vol] 108 mmol/L Abnormal 96-106 [facility] rehensive Internal Medicine; [facility] Work Phone: Comment on above: assure GFR is in BMP ; PATIENT NOT FASTINGPERFORMED BY: CB [facility] Yhlqdq1698 Curiel RoadDublin [place] [id number] CO2 [Moles/Vol] 23 mmol/L Normal 20-29 [facility] Internal Medicine; [facility] Work Phone: Comment on above: assure GFR is in BMP ; PATIENT NOT FASTINGPERFORMED BY: CB [facility] Evidgf6867 [address]iel RoadDublin [place] [id number] Creatinine [Mass/Vol] 1.55 mg/dL Abnormal 0.76-1.27 [facility] prehensive Internal Medicine; [facility] Work Phone: Comment on above: assure GFR is in BMP ; PATIENT NOT FASTINGPERFORMED BY: CB [facility] Mrthwg6726 Curiel RoadDublin [place] [id number] GFR/1.73 sq M predicted among blacks CKD-EPI (S/P/Bld) [Vol rate/Area] 49 mL/min/1.73 Abnormal [facility]; [facility] Work Phone: Comment on above: assure GFR is in BMP ; PATIENT NOT FASTINGPERFORMED BY: CB [facility] Ddrghh7383 Curiel RoadDublin [place] [id number] GFR/1.73 sq M predicted among non-blacks CKD-EPI (S/P/Bld) [Vol rate/Area] 42 mL/min/1.73 Abnormal [facility]; [facility] Work Phone: Comment on above: assure GFR is in BMP ; PATIENT NOT FASTINGPERFORMED BY: CB [facility] Gjfabi0626 [address] RoadDublin [place] [id number] Glucose [Mass/Vol] 86 mg/dL Normal 65-99 [facility] Medicine; [facility] Work Phone: Comment on above: assure GFR is in BMP ; PATIENT NOT FASTINGPERFORMED BY: CB [facility] Monpfi9014 [address] RoadDublin [place] [id number] Potassium [Moles/Vol] 5.1 mmol/L Normal 3.5-5.2 [facility] prehensive Internal Medicine; [facility] Work Phone: Comment on above: assure GFR is in BMP ; PATIENT NOT FASTINGPERFORMED BY: CB [facility] Trbfge5249 [address] RoadDublin [place] [id number] Sodium [Moles/Vol] 142 mmol/L Normal 134-144 [facility]; [facility] Work Phone: Comment on above: assure GFR is in BMP ; PATIENT NOT FASTINGPERFORMED BY: CB [facility] Uybqov3263 [address] RoadDublin [place] [id number] Urea nitrogen [Mass/Vol] 25 mg/dL Normal 8-27 [facility]; [facility] Work Phone: Comment on above: assure GFR is in BMP ; PATIENT NOT FASTINGPERFORMED BY: CB [facility] Acxspt8240 [address] RoadDublin [place] [id number] Urea nitrogen/Creatinine [Mass ratio] 16 mg/mg Normal 10-24 [facility]; [facility] Work Phone: Comment on above: assure GFR is in BMP ; PATIENT NOT FASTINGPERFORMED BY: CB [facility] Pvpgac1254 [address] RoadDublin [place] [id number] CALCIFIDIOL (31861) VIT D 25 Ordered By: Windows Application Packager on 10-13-2020 25-Hydroxyvitamin D2+25-Hydroxyvitamin D3 [Mass/Vol] 53.7 ng/mL Normal 30.0-100.0 [facility]; [facility] Work Phone: Comment on above: Vitamin D deficiency has been defined by the [place] ofMedicine and an Endocrine Society practice guideline as alevel of serum 25-OH vitamin D less than 20 ng/mL (1,2).The Endocrine Society went on to further define vitamin Dinsufficiency as a level between 21 and 29 ng/mL (2).1. IOM ([place] of Medicine). 2010. Dietary reference intakes for calcium and D. [place]: The National Academies Press.2. Meme MF, Lian ANDERSON, Donald HERNANDEZ, et al. Evaluation, treatment, and prevention of vitamin D deficiency: an Endocrine Society clinical practice guideline. JCEM. 2010; 96(7):1911-30. PATIENT WAS FASTINGP ERFORMED BY: [facility] Xluquk6361 [facility]in [place] [id number] CBC W/AUTO DIFF WBC (10763)O rdered By: Windows Application Packager on 10-13-2020 Basophils (Bld) [#/Vol] 0.1 {x10E3/uL} Normal 0.0-0.2 [facility]; [facility] Work Phone: Comment on above: PATIENT WAS FASTINGP ERFORMED BY: LabRank[facility] Fwypgb8460 [facility] [id number] Basophils (Bld) [#/Vol] 0.1 10*3/uL Normal 0.0-0.2 [facility]; [facility] Work Phone: Comment on above: PATIENT WAS FASTINGP ERFORMED BY: LabCorewell [facility]6370 [facility] [id number] Basophils/100 WBC (Bld) 1 % Normal [facility]; [facility] Work Phone: Comment on above: PATIENT WAS FASTINGP ERFORMED BY: LabRank[facility] Afkjgi0376 [facility] [id number] Eosinophils (Bld) [#/Vol] 0.2 {x10E3/uL} Normal 0.0-0.4 [facility]; [facility] Work Phone: Comment on above: PATIENT WAS FASTINGP ERFORMED BY: LabRank[facility] Flhvfb9829 [address] [facility] [id number] Eosinophils (Bld) [#/Vol] 0.2 10*3/uL Normal 0.0-0.4 [facility]; [facility] Work Phone: Comment on above: PATIENT WAS FASTINGP ERFORMED BY: LabRank[facility] Erguzr5679 [address] [facility] [id number] Eosinophils/100 WBC (Bld) 4 % Normal [facility]; [facility] Work Phone: Comment on above: PATIENT WAS FASTINGP ERFORMED BY: AMY [facility] Fzugxm9108 [address] Roadblin [place] [id number] Erythrocyte distribution width (RBC) [Ratio] 13.1 % Normal 11.6-15.4 [facility]; [facility] Work Phone: Comment on above: PATIENT WAS FASTINGP ERFORMED BY: [facility] Vyekst8591 [address] [facility]in [place] [id number] Hematocrit (Bld) [Volume fraction] 45.9 % Normal 37.5-51.0 [facility]; [facility] Work Phone: Comment on above: PATIENT WAS FASTINGP ERFORMED BY: [facility] Rowkgb3950 Curiel RoadNovant Health Brunswick Medical Centerin [place] [id number] Hemoglobin (Bld) [Mass/Vol] 16.1 g/dL Normal 13.0-17.7 [facility]; [facility] Work Phone: Comment on above: PATIENT WAS FASTINGP ERFORMED BY: [facility] Plhbyn2304 Curiel RoadNovant Health Brunswick Medical Centerin [place] [id number] Immature granulocytes (Bld) [#/Vol] 0.0 {x10E3/uL} Normal 0.0-0.1 [facility]; [facility] Work Phone: Comment on above: PATIENT WAS FASTINGP ERFORMED BY: [facility] Alhywr2291 [address] [facility]in [place] [id number] Immature granulocytes (Bld) [#/Vol] 0.0 10*3/uL Normal 0.0-0.1 [facility]; [facility] Work Phone: Comment on above: PATIENT WAS FASTINGP ERFORMED BY: [facility] Yocbmf5930 [address] RoadDublin [place] [id number] Immature granulocytes/100 WBC (Bld) 0 % Normal [facility]; [facility] Work Phone: Comment on above: PATIENT WAS FASTINGP ERFORMED BY: [facility] Ljwbda3067 [address] RoadDublin [place] [id number] Lymphocytes (Bld) [#/Vol] 2.0 {x10E3/uL} Normal 0.7-3.1 [facility]; [facility] Work Phone: Comment on above: PATIENT WAS FASTINGP ERFORMED BY: AMY [facility] Zqcsep8635 [address] RoadDublin [place] [id number] Lymphocytes (Bld) [#/Vol] 2.0 10*3/uL Normal 0.7-3.1 [facility]; [facility] Work Phone: Comment on above: PATIENT WAS FASTINGP ERFORMED BY: AMY [facility] Rrwwtp0020 [address] RoadDublin [place] [id number] Lymphocytes/100 WBC (Bld) 38 % Normal [facility]; [facility] Work Phone: Comment on above: PATIENT WAS FASTINGP ERFORMED BY: AMY [facility] Ahaisz5687 [address] [facility] [id number] MCH (RBC) [Entitic mass] 30.3 pg Normal 26.6-33.0 [facility]; [facility] Work Phone: Comment on above: PATIENT WAS FASTINGP ERFORMED BY: AMY LabRanken [facility] Lkrzav0450 [address] RoadNovant Health Brunswick Medical Centerin [place] [id number] MCHC (RBC) [Mass/Vol] 35.1 g/dL Normal 31.5-35.7 [facility] prehensive Internal Medicine; [facility] Work Phone: Comment on above: PATIENT WAS FASTINGP ERFORMED BY: AMY [facility] Epfxtp9444 [address] [facility]in [place] [id number] MCV (RBC) [Entitic vol] 86 fL Normal 79-97 [facility]; [facility] Work Phone: Comment on above: PATIENT WAS FASTINGP ERFORMED BY: AMY [facility] Huhjxy2562 [address] RoadDublin [place] [id number] Monocytes (Bld) [#/Vol] 0.5 {x10E3/uL} Normal 0.1-0.9 [facility]; [facility] Work Phone: Comment on above: PATIENT WAS FASTINGP ERFORMED BY: [facility] Ssnvof1656 [address]Dublin [place] [id number] Monocytes (Bld) [#/Vol] 0.5 10*3/uL Normal 0.1-0.9 [facility]; [facility] Work Phone: Comment on above: PATIENT WAS FASTINGP ERFORMED BY: AMY ShantaJaiden PerezPsyoai5281 [address] [facility] [id number] Monocytes/100 WBC (Bld) 10 % Normal [facility]; [facility] Work Phone: Comment on above: PATIENT WAS FASTINGP ERFORMED BY: AMY Perezlin6370 [address]blin [place] [id number] Neutrophils (Bld) [#/Vol] 2.5 {x10E3/uL} Normal 1.4-7.0 [facility]; [facility] Work Phone: Comment on above: PATIENT WAS FASTINGP ERFORMED BY: AMY Perezlin6370 [address] [facility]in [place] [id number] Neutrophils (Bld) [#/Vol] 2.5 10*3/uL Normal 1.4-7.0 [facility]; [facility] Work Phone: Comment on above: PATIENT WAS FASTINGP ERFORMED BY: AMY Perezlin6370 [address] [facility]in [place] [id number] Neutrophils/100 WBC (Bld) 47 % Normal [facility]; [facility] Work Phone: Comment on above: PATIENT WAS FASTINGP ERFORMED BY: AYM Perezlin6370 [address] [facility]in [place] [id number] Platelets (Bld) [#/Vol] 193 {x10E3/uL} Normal 150-450 [facility]; [facility] Work Phone: Comment on above: PATIENT WAS FASTINGP ERFORMED BY: AMY ShantaJaiden PerezQzdgkl0751 [address] [facility]ton[facility] HospitalDublin [place] [id number] Platelets (Bld) [#/Vol] 193 10*3/uL Normal 150-450 [facility]; [facility] Work Phone: Comment on above: PATIENT WAS FASTINGP ERFORMED BY: AMY LabCoabida Dolefo5412 [address] RoadDublin [place] [id number] RBC (Bld) [#/Vol] 5.31 {x10E6/uL} Normal 4.14-5.80 [facility]; [facility] Work Phone: Comment on above: PATIENT WAS FASTINGP ERFORMED BY: AMY [facility] Vlwpam8753 [address] RoadDublin [place] [id number] RBC (Bld) [#/Vol] 5.31 10*6/uL Normal 4.14-5.80 [facility]; [facility] Work Phone: Comment on above: PATIENT WAS FASTINGP ERFORMED BY: AMY LabJaiden Tmmvzk2137 [address]bl[address] [place] [id number] WBC (Bld) [#/Vol] 5.3 {x10E3/uL} Normal 3.4-10.8 [facility]; [facility] Work Phone: Comment on above: PATIENT WAS FASTINGP ERFORMED BY: AMY LabCoabida Iozkjy0370 [address] [facility] Hospitalblin [place] [id number] WBC (Bld) [#/Vol] 5.3 10*3/uL Normal 3.4-10.8 [facility] Internal [facility]; [facility] Work Phone: Comment on above: PATIENT WAS FASTINGP ERFORMED BY: AMY LabJaiden Xcumzy4493 [address] [facility]in [place] [id number] LIPID PANEL (82122)Ordered B y: Windows Application Packager on 10-13-2020 Cholesterol [Mass/Vol] 303 mg/dL Abnormal 100-199 [facility]; [facility] Work Phone: Comment on above: PATIENT WAS FASTINGP ERFORMED BY: AMY [facility] Tosdnh7838 [address] [facility]tonagon HospitalDublin [place] [id number] Cholesterol in HDL [Mass/Vol] 42 mg/dL Normal [facility]; [facility] Work Phone: Comment on above: PATIENT WAS FASTINGP ERFORMED BY: AMY [facility] Didiht3556 [facility] [id number] Cholesterol in LDL/Cholesterol in HDL [Mass ratio] 5.3 {ratio} Abnormal 0.0-3.6 [facility]; [facility] Work Phone: Comment on above: LDL/HDL Ratio Men Wo men 1/2 Avg.Risk 1.0 1.5 Avg.Risk 3.6 3.2 2X Avg.Risk 6.2 5.0 3X Avg.Risk 8.0 6.1 PATIENT WAS FASTINGP ERFORMED BY: [facility] Ycpyxn4291 [address] [facility] [id number] Triglyceride [Mass/Vol] 195 mg/dL Abnormal 0-149 [facility]; [facility] Work Phone: Comment on above: PATIENT WAS FASTINGP ERFORMED BY: [facility] Drpiwr2511 Curiel [facility] [id number] LIPID PANEL (04893) 223 mg/dL Abnormal 0-99 [facility]; [facility] Work Phone: Comment on above: PATIENT WAS FASTINGP ERFORMED BY: [facility] Kmfjjd9910 Curiel [facility] [place] [id number] LIPID PANEL (86753) 38 mg/dL Normal 5-40 [facility]; [facility] Work Phone: Comment on above: PATIENT WAS FASTINGP ERFORMED BY: [facility] Uykidz5364 Curiel [facility] [place] [id number] LIPID PANEL (08231) 5.3 {ratio} Abnormal 0.0-3.6 [facility]; [facility] Work Phone: Comment on above: LDL/HDL Ratio Men Wo men 1/2 Avg.Risk 1.0 1.5 Avg.Risk 3.6 3.2 2X Avg.Risk 6.2 5.0 3X Avg.Risk 8.0 6.1 PATIENT WAS FASTINGP ERFORMED BY: CB [facility] Gbzpwb9413 [facility] [id number] METABOLIC PANEL, COMPREHENSI VE (32511)Ordered By: Windows Application Packager on 10-13-2020 Albumin [Mass/Vol] 3.9 g/dL Normal 3.7-4.7 [facility]; [facility] Work Phone: Comment on above: PATIENT WAS FASTINGP ERFORMED BY: CB [facility] Fajlyn1997 Curiel RoadDublin [place] [id number] Albumin/Globulin [Mass ratio] 1.9 {ratio} Normal 1.2-2.2 [facility]; [facility] Work Phone: Comment on above: PATIENT WAS FASTINGP ERFORMED BY: CB [facility] Hncfbc4784 Curiel RoadDublin [place] [id number] ALP [Catalytic activity/Vol] 62 [iU]/L Normal 39-117 [facility]; [facility] Work Phone: Comment on above: PATIENT WAS FASTINGP ERFORMED BY: CB [facility] Rzftyf1133 [address]iel RoadDublin [place] [id number] ALP [Catalytic activity/Vol] 62 U/L Normal 39-117 [facility]; [facility] Work Phone: Comment on above: PATIENT WAS FASTINGP ERFORMED BY: CB [facility] Mqclky8333 [address] RoadDublin [place] [id number] ALT [Catalytic activity/Vol] 14 [iU]/L Normal 0-44 [facility]; [facility] Work Phone: Comment on above: PATIENT WAS FASTINGP ERFORMED BY: CB [facility] Jtlczk7741 Curiel RoadDublin [place] [id number] ALT [Catalytic activity/Vol] 14 U/L Normal 0-44 [facility]; [facility] Work Phone: Comment on above: PATIENT WAS FASTINGP ERFORMED BY: CB [facility] Wgvehb8828 [address] RoadDublin [place] [id number] AST [Catalytic activity/Vol] 14 [iU]/L Normal 0-40 [facility]; [facility] Work Phone: Comment on above: PATIENT WAS FASTINGP ERFORMED BY: CB [facility] Ufygzi8942 Curiel RoadDublin [place] [id number] AST [Catalytic activity/Vol] 14 U/L Normal 0-40 [facility]; [facility] Work Phone: Comment on above: PATIENT WAS FASTINGP ERFORMED BY: AMY [facility] Whmxkz0480 [address]iel RoadDublin [place] [id number] Bilirubin [Mass/Vol] 0.5 mg/dL Normal 0.0-1.2 [facility] rehensive Internal Medicine; [facility] Work Phone: Comment on above: PATIENT WAS FASTINGP ERFORMED BY: CB [facility] Beytom5282 [address] RoadDublin [place] [id number] Calcium [Mass/Vol] 8.6 mg/dL Normal 8.6-10.2 [facility]; [facility] Work Phone: Comment on above: PATIENT WAS FASTINGP ERFORMED BY: AMY [facility] Acbges3140 [address] RoadDublin [place] [id number] Chloride [Moles/Vol] 108 mmol/L Abnormal 96-106 [facility]; [facility] Work Phone: Comment on above: PATIENT WAS FASTINGP ERFORMED BY: CB [facility] Kuwvtz6731 [address] RoadDublin [place] [id number] CO2 [Moles/Vol] 22 mmol/L Normal 20-29 [facility] Internal Medicine; [facility] Work Phone: Comment on above: PATIENT WAS FASTINGP ERFORMED BY: AMY [facility] Goziuy4671 [address] RoadDublin [place] [id number] Creatinine [Mass/Vol] 1.67 mg/dL Abnormal 0.76-1.27 [facility]; [facility] Work Phone: Comment on above: PATIENT WAS FASTINGP ERFORMED BY: CB [facility] Gbuhkx2360 [address] RoadDublin [place] [id number] GFR/1.73 sq M predicted among blacks CKD-EPI (S/P/Bld) [Vol rate/Area] 44 mL/min/1.73 Abnormal [facility]; [facility] Work Phone: Comment on above: PATIENT WAS FASTINGP ERFORMED BY: CB [facility] Lpymkv8432 [address] [place] [id number] GFR/1.73 sq M predicted among non-blacks CKD-EPI (S/P/Bld) [Vol rate/Area] 38 mL/min/1.73 Abnormal [facility]; [facility] Work Phone: Comment on above: PATIENT WAS FASTINGP ERFORMED BY: AMY [facility] Rkbcrq9320 [address] RoadDublin [place] [id number] Globulin (S) [Mass/Vol] 2.1 g/dL Normal 1.5-4.5 [facility]; [facility] Work Phone: Comment on above: PATIENT WAS FASTINGP ERFORMED BY: AMY [facility] Xyyhga6905 Curiel [facility]bl[facility] [place] [id number] Glucose [Mass/Vol] 87 mg/dL Normal 65-99 [facility]; [facility] Work Phone: Comment on above: PATIENT WAS FASTINGP ERFORMED BY: LabRank[facility] Wlojgn4279 Curiel [facility] [place] [id number] Potassium [Moles/Vol] 5.1 mmol/L Normal 3.5-5.2 [facility] prehensive Internal Medicine; [facility] Work Phone: Comment on above: PATIENT WAS FASTINGP ERFORMED BY: LabRank[facility] Boeccx4726 Curiel [facility]ton[facility] HospitalDublin [place] [id number] Protein [Mass/Vol] 6.0 g/dL Normal 6.0-8.5 [facility]; [facility] Work Phone: Comment on above: PATIENT WAS FASTINGP ERFORMED BY: [facility] Lahpcr5832 [address] RoadDublin [place] [id number] Sodium [Moles/Vol] 142 mmol/L Normal 134-144 [facility]; [facility] Work Phone: Comment on above: PATIENT WAS FASTINGP ERFORMED BY: [facility] Pabsgc1412 [address] RoadDublin [place] [id number] Urea nitrogen [Mass/Vol] 22 mg/dL Normal 8-27 [facility]; [facility] Work Phone: Comment on above: PATIENT WAS FASTINGP ERFORMED BY: AMY [facility] Teaptn3951 [address] RoadDublin [place] [id number] Urea nitrogen/Creatinine [Mass ratio] 13 mg/mg Normal 10-24 [facility]; [facility] Work Phone: Comment on above: PATIENT WAS FASTINGP ERFORMED BY: AMY [facility] Agiovk1402 [address] RoadDublin [place] [id number] MICROALBUMINOrdered By: iZotope em Corporate Risk Analyst on 10-13-2020 Albumin DL <= 20 mg/L (U) [Mass/Vol] 4.0 ug/mL Normal [facility]; [facility] Work Phone: Comment on above: PATIENT WAS FASTINGP ERFORMED BY: AMY [facility] Ogignx7347 Curiel RoadDublin [place] [id number] Albumin/Creatinine (U) [Mass ratio] 2 {mg/g_creat} Normal 0-29 [facility]; [facility] Work Phone: Comment on above: Normal: 0 - 29 Moder ately increased: 30 - 300 Severely increased: >300 PATIENT WAS FASTINGP ERFORMED BY: AMY LabCoabida Egwvin7882 Curiel [facility] [place] [id number] Creatinine (U) [Mass/Vol] 184.3 mg/dL Normal [facility]; [facility] Work Phone: Comment on above: PATIENT WAS FASTINGP ERFORMED BY: AMY [facility] Mtspww4780 Curiel [facility] [id number] TSH ([id number])Ordered By: iZotopee m Corporate Risk Analyst on 10-13-2020 TSH Qn 1.920 {uIU/mL} Normal 0.450-4.50 0 [facility]; [facility] Work Phone: Comment on above: PATIENT WAS FASTINGP ERFORMED BY: AMY [facility] Nojthm7694 [address] RoadDublin [place] [id number] URINALYSIS, W/ MICRO ([id number]) Ordered By: Windows Application Packager on 10-13-2020 Appearance (U) Clear Normal Comprehens tri [facility] Medicine; [facility] Work Phone: Comment on above: PATIENT WAS FASTINGP ERFORMED BY: AMY Vale6370 [address] RoadDublin [place] [id number] Bilirubin Ql (U) Negative Normal Comprehe nsive Internal Medicine; [facility] Work Phone: Comment on above: PATIENT WAS FASTINGP ERFORMED BY: AMY Vale6370 [address] RoadDublin [place] [id number] Bilirubin Ql (U) Negative Normal Comprehe nsive Internal Medicine; [facility] Work Phone: Comment on above: PATIENT WAS FASTINGP ERFORMED BY: AMY Vale6370 [address] RoadDublin [place] [id number] Color (U) Yellow Normal [facility]; [facility] Work Phone: Comment on above: PATIENT WAS FASTINGP ERFORMED BY: AMY Vale6370 [address] RoadDublin [place] [id number] Glucose Ql (U) Negative Normal Comprehens [facility]; [facility] Work Phone: Comment on above: PATIENT WAS FASTINGP ERFORMED BY: AMY Vale6370 [address] RoadDublin [place] [id number] Glucose Ql (U) Negative Normal Comprehens tri [facility]; [facility] Work Phone: Comment on above: PATIENT WAS FASTINGP ERFORMED BY: AMY Vale6370 [address] RoadDublin [place] [id number] Hemoglobin Ql (U) Negative Normal Compreh ensive Internal Medicine; [facility] Work Phone: Comment on above: PATIENT WAS FASTINGP ERFORMED BY: AMY Perezlin6370 [address] RoadDublin [place] [id number] Hemoglobin Ql (U) Negative Normal Compreh ensive Internal Medicine; [facility] Work Phone: Comment on above: PATIENT WAS FASTINGP ERFORMED BY: AMY Perezlin6370 [address] RoadDublin [place] [id number] Ketones Ql (U) Negative Normal Comprehens tri [facility]; [facility] Work Phone: Comment on above: PATIENT WAS FASTINGP ERFORMED BY: AMY Vale6370 [address] RoadDublin [place] [id number] Ketones Ql (U) Negative Normal Comprehens tri [facility]; [facility] Work Phone: Comment on above: PATIENT WAS FASTINGP ERFORMED BY: AMY Vale6370 [address] RoadDublin [place] [id number] Leukocyte esterase Test strip Ql (U) Negative Normal [facility]; [facility] Work Phone: Comment on above: PATIENT WAS FASTINGP ERFORMED BY: AMY Vale6370 [address] RoadDublin [place] [id number] Leukocyte esterase Test strip Ql (U) Negative Normal [facility]; [facility] Work Phone: Comment on above: PATIENT WAS FASTINGP ERFORMED BY: AMY Vale6370 [address] RoadDublin [place] [id number] Microscopic observation LM Nom (Urine sed) See below: Normal [facility]; [facility] Work Phone: Comment on above: Microscopic was yany cated and was performed. PATIENT WAS FASTINGP ERFORMED BY: AMY Perezlin6370 [address] RoadDublin [place] [id number] Microscopic observation LM Nom (Urine sed) MICRON Normal [facility]; [facility] Work Phone: Comment on above: Microscopic follows if indicated. PATIENT WAS FASTINGP ERFORMED BY: AMY Perezlin6370 [address] RoadDublin [place] [id number] Nitrite Ql (U) Negative Normal Comprehens [facility]; [facility] Work Phone: Comment on above: PATIENT WAS FASTINGP ERFORMED BY: AMY LabCoabida PerezRzicyr5232 Cur[address] RoadDublin [place] [id number] Nitrite Ql (U) Negative Normal Comprehens tri [facility]; [facility] Work Phone: Comment on above: PATIENT WAS FASTINGP ERFORMED BY: AMY LabJaiden PerezDcnbzy1328 Cur[address] RoadDublin [place] [id number] pH (U) 5.0 [pH] Normal 5.0-7.5 [facility]; [facility] Work Phone: Comment on above: PATIENT WAS FASTINGP ERFORMED BY: AMY [facility] Ivwwfn2772 [address] RoadDublin [place] [id number] Protein Ql (U) Negative Normal Comprehens tri [facility]; [facility] Work Phone: Comment on above: PATIENT WAS FASTINGP ERFORMED BY: [facility] Qetymf0740 [address] RoadDublin [place] [id number] Protein Ql (U) Negative Normal Comprehens tri [facility]; [facility] Work Phone: Comment on above: PATIENT WAS FASTINGP ERFORMED BY: AMY [facility] Qzkrkc7154 [address] RoadDublin [place] [id number] Specific gravity (U) [Rel density] 1.026 1 Normal 1.005-1.03 0 [facility]; [facility] Work Phone: Comment on above: PATIENT WAS FASTINGP ERFORMED BY: LabRanken [facility] Nvauei5611 [address] RoadDublin [place] [id number] Urobilinogen (U) [Mass/Vol] 0.2 mg/dL Normal 0.2-1.0 [facility]; [facility] Work Phone: Comment on above: PATIENT WAS FASTINGP ERFORMED BY: [facility] Rhdenw6480 [address] RoadDublin [place] [id number] Urobilinogen Test strip (U) [Mass/Vol] 0.2 mg/dL Normal 0.2-1.0 Comprehensi Internal Medicine; [facility] Work Phone: Comment on above: PATIENT WAS FASTINGP ERFORMED BY: [facility] Yvspbk1379 [address] RoadDublin [place] [id number] Basic Metabolic Profile (BMP )Ordered By: Windows Application Packager on 10-26-2018 Basic metabolic 2000 panel 15 mg/dL Normal 7-18 [facility] Work Phone: Comment on above: [facility] [address] [place], [place], [address] Basic metabolic 2000 panel 8.5 mg/dL Normal 8.5-10.1 [facility] Work Phone: Comment on above: [facility] [address] [place], [place], [id number] Basic metabolic 2000 panel 4.3 mmol/L Normal 3.5-5.1 [facility] Work Phone: Comment on above: [facility] [address] [place], [place], [id number] Basic metabolic 2000 panel 1.64 mg/dL Abnormal 0.70-1.30 [facility] Work Phone: Comment on above: The validity of the calculated GFR AND GFRAA in patients over70 years has not been determined. Clinical correlation isessential. [facility] [address] [place], [place], [id number] Basic metabolic 2000 panel 26.0 mmol/L Normal 21.0-32.0 [facility] Work Phone: Comment on above: [facility] [address] [place], [place], [id number] Basic metabolic 2000 panel 109 mmol/L Abnormal 98-107 [facility] Work Phone: Comment on above: [facility] [address]nl[address] [place], [place], [address] Basic metabolic 2000 panel 9.1 {RATIO} Abnormal 10-20 [facility] Work Phone: Comment on above: [facility] [address] [place], [place], [id number] Basic metabolic 2000 panel 7 1 Normal 5-15 [facility] Work Phone: Comment on above: [facility] [address]in[address] [place], [place], [address] Basic metabolic 2000 panel 131 mg/dL Abnormal 74-106 [facility] Work Phone: Comment on above: Fasting Glucose resu lt greater than or equal to 126 mg/dLsuggests DIABETES MELLITUS per A.D.A. criteria.Please note revised GLUCOSE reference range [id number]/02/2018. [facility] [address] [place], [place], [address] Basic metabolic 2000 panel 43 mL/min Abnormal [facility] Work Phone: Comment on above: Non- GFR Calc [facility] [address] [place], [place], [address] Basic metabolic 2000 panel 53 mL/min Abnormal [facility] Work Phone: Comment on above: GFR Calc [facility] [address] [place], [place], [address]4499691 Basic metabolic 2000 panel 40.18 ml/min Normal [facility] Work Phone: Comment on above: [facility] [address] [place], [place], [address]36[address] Basic metabolic 2000 panel 142 mmol/L Normal 136-145 [facility] Work Phone: Comment on above: [facility] [address] [place], [place], [address] Bedside GlucoseOrdered By: S ystem Corporate Risk Analyst on 10-26-2018 Bedside Glucose 102 mg/dL Normal 70-110 Comprehen sive Internal Medicine Work Phone: Comment on above: MANAGEMENT OF PATIEN T CARE PER NURSING PROTOCOL [facility] LaboratoryPoint of R[address]es[address] [place], [place] [phone] CBC W/Diff, AutomatedOrdered By: Windows Application Packager on 10-26-2018 Absolute Neut 5.6 {X10_3/uL} Normal 2.0-7.7 Compreh ensive Internal Medicine Work Phone: Comment on above: [facility] [address] [place], [address] Basophils/100 WBC (Bld) 0.6 % Normal 0-1 [facility] Work Phone: Comment on above: [facility] [address] [place], [address] Eosinophils/100 WBC (Bld) 12.2 % Abnormal 0-5 [facility] Work Phone: Comment on above: [facility] [address] [place], [address] Erythrocyte distribution width Ratio (RBC) 13.5 % Normal 11.6-14.6 [facility] Work Phone: Comment on above: [facility] [address] [place], [address] Hematocrit Volume Fraction (Bld) 48.6 % Normal 40-54 [facility] Work Phone: Comment on above: [place] [address] [place], [address] Hemoglobin mass conc (Bld) 16.9 g/dL Abnormal 13.0-16.5 [facility] Work Phone: Comment on above: [facility] [address] [place], [address] IM GRAN % 1.100 % Abnormal 0.0-0.9 [facility] Work Phone: Comment on above: IG% - Immature Granu locytes (promyelocytes, myelocytes andmetamyelocytes) > 1% indicates that a LEFT SHIFT is Present. [facility] [address] [place], [place], [phone] Lymphocytes #/vol (Bld) 1.96 {X10_3/ul} Normal 0.83-4.51 [facility] Work Phone: Comment on above: [facility] [address] [place], [address] Lymphocytes/100 WBC (Bld) 20.7 % Normal 19-41 [facility] Work Phone: Comment on above: [facility] [address] [place], [address] MCH Entitic mass (RBC) 29.0 pg Normal 27.0-32.0 [facility] Work Phone: Comment on above: [facility] [address] [place], [address] MCHC mass conc (RBC) 34.8 {g/gl} Normal 32-36 Com prehensive Internal Medicine Work Phone: Comment on above: [facility] [address] [place], [address] MCV Entitic volume (RBC) 83.4 fL Normal 80-94 [facility] Work Phone: Comment on above: [facility] [address] [place], [address] Monocytes/100 WBC (Bld) 5.9 % Normal 0-10 [facility] Work Phone: Comment on above: [facility] [address] [place], [address] Neutrophils/100 WBC (Bld) 59.5 % Normal 47-70 [facility] Work Phone: Comment on above: [facility] [address] [place], [address] Platelet mean volume Entitic volume (Bld) 10.3 fL Normal 6.2-12.0 Comprehensi Internal Medicine Work Phone: Comment on above: [facility] [address] [place], [address] Platelets #/vol (Bld) 239 10*3/uL Normal 150-[address] [facility] [address] josephehensive [facility] Medicine Work Phone: Comment on above: [facility] [address] [place], [place], [address] RBC #/vol (Bld) 5.83 {M/mm3} Normal 4.6-6.2 Compreh ensive Internal Medicine Work Phone: Comment on above: [facility] [address] [place], [place], [address] RDW SD 40.9 fL Normal 35.1-43.9 [facility] Work Phone: Comment on above: [facility] [address] [place], [place], [address] WBC #/vol (Bld) 9.5 10*3/uL Normal 4.4-11.0 Comprehe nsive Internal Medicine Work Phone: Comment on above: [facility] [address] [place], [place], [address] Basic Metabolic Profile (BMP )Ordered By: Windows Application Packager on 10-23-2018 Basic metabolic 2000 panel 53 mL/min Abnormal [facility] Work Phone: Comment on above: GFR Calc [facility] [address] [place], [place], [address] Basic metabolic 2000 panel 40.67 ml/min Normal [facility] Work Phone: Comment on above: [facility] [address] [place], [place], [address] Basic metabolic 2000 panel 8.5 mg/dL Normal 8.5-10.1 [facility] Work Phone: Comment on above: [facility] [address] [place], [place], [address] Basic metabolic 2000 panel 25.0 mmol/L Normal 21.0-32.0 [facility] Work Phone: Comment on above: [facility] [address] [place], [place], [address] Basic metabolic 2000 panel 142 mmol/L Normal 136-145 [facility] Work Phone: Comment on above: [facility] [address] [place], [place], [address] Basic metabolic 2000 panel 110 mmol/L Abnormal 98-107 [facility] Work Phone: Comment on above: [facility] [address] [place], [place], [address] Basic metabolic 2000 panel 4.3 mmol/L Normal 3.5-5.1 [facility] Work Phone: Comment on above: Slight Hemolysis, Re sult may be falsely increased. [place] [address] [place], [place], [address] Basic metabolic 2000 panel 44 mL/min Abnormal [facility] Work Phone: Comment on above: Non- GFR Calc [place] [address] [place], [place], [address] Basic metabolic 2000 panel 1.62 mg/dL Abnormal 0.70-1.30 [facility] Work Phone: Comment on above: The validity of the calculated GFR AND GFRAA in patients over70 years has not been determined. Clinical correlation isessential. [facility] [address] [place], [place], [address] Basic metabolic 2000 panel 18 mg/dL Normal 7-18 [facility] Work Phone: Comment on above: [facility] [address] [place], [place], [address] Basic metabolic 2000 panel 112 mg/dL Abnormal 74-106 [facility] Work Phone: Comment on above: Fasting Glucose resu lt from 100 to 125 mg/dLsuggests IMPAIRED HOMEOSTASIS per A.D.A. criteria.Please note revised GLUCOSE reference range [id number]/02/2018. [facility] [address] [place], [place], [address] Basic metabolic 2000 panel 7 1 Normal 5-15 [facility] Work Phone: Comment on above: [facility] [address] [place], [place], [address] Basic metabolic 2000 panel 11.1 {RATIO} Normal 10-20 [facility] Work Phone: Comment on above: [facility] [address] [place], [place], [address] Bedside GlucoseOrdered By: S ystem Corporate Risk Analyst on 10-23-2018 Bedside Glucose 75 mg/dL Normal 70-110 Comprehen sive Internal Medicine Work Phone: Comment on above: MANAGEMENT OF PATIEN T CARE PER NURSING PROTOCOL [facility] LaboratoryPoint of [address] [place] [address] CBC W/Diff, AutomatedOrdered By: Windows Application Packager on 10-23-2018 Absolute Neut 4.0 {X10_3/uL} Normal 2.0-7.7 Compreh ensive Internal Medicine Work Phone: Comment on above: [facility] [address] [place], [address] Basophils/100 WBC (Bld) 0.7 % Normal 0-1 [facility] Work Phone: Comment on above: [facility] [address] [place], [place], [phone] Eosinophils/100 WBC (Bld) 11.2 % Abnormal 0-5 [facility] Medicine Work Phone: Comment on above: [facility] [address] [place], [address] Erythrocyte distribution width Ratio (RBC) 13.6 % Normal 11.6-14.6 [facility] Work Phone: Comment on above: [facility] [address] [place], [place], [phone] Hematocrit Volume Fraction (Bld) 46.3 % Normal 40-54 [facility] Work Phone: Comment on above: [facility] [address] [place], [address] Hemoglobin mass conc (Bld) 15.5 g/dL Normal 13.0-16.5 [facility] Work Phone: Comment on above: [facility] [address] [place], [address] IM GRAN % 0.400 % Normal 0.0-0.9 [facility] Work Phone: Comment on above: IG% - Immature Granu locytes (promyelocytes, myelocytes andmetamyelocytes) > 1% indicates that a LEFT SHIFT is Present. [facility] [address] [place], [place], [phone] Lymphocytes #/vol (Bld) 2.60 {X10_3/ul} Normal 0.83-4.51 [facility] Work Phone: Comment on above: [facility] [address] [place], [address] Lymphocytes/100 WBC (Bld) 31.1 % Normal 19-41 [facility] Work Phone: Comment on above: [facility] [address] [place], [address] MCH Entitic mass (RBC) 29.2 pg Normal 27.0-32.0 [facility] Work Phone: Comment on above: [facility] [address] [place], [address] MCHC mass conc (RBC) 33.5 {g/gl} Normal 32-36 [facility] Internal Medicine Work Phone: Comment on above: [facility] [address] [place], [address] MCV Entitic volume (RBC) 87.4 fL Normal 80-94 [facility] Work Phone: Comment on above: [facility] [address] [place], [address] Monocytes/100 WBC (Bld) 8.6 % Normal 0-10 [facility] Work Phone: Comment on above: [facility] [address] [place], [address] Neutrophils/100 WBC (Bld) 48.0 % Normal 47-70 [facility] Work Phone: Comment on above: [facility] [address] [place], [address] Platelet mean volume Entitic volume (Bld) 10.4 fL Normal 6.2-12.0 Comprehensi ve Internal Medicine Work Phone: Comment on above: [facility] [address] [place], [address] Platelets #/vol (Bld) 227 10*3/uL Normal 150-[address] [facility] Internal Medicine Work Phone: Comment on above: [facility] [address] [place], [address] RBC #/vol (Bld) 5.30 {M/mm3} Normal 4.6-6.2 Compreh ensive Internal Medicine Work Phone: Comment on above: [facility] [address] [place], [address] RDW SD 43.2 fL Normal 35.1-43.9 [facility] Work Phone: Comment on above: [facility] [address] [place], [address] WBC #/vol (Bld) 8.4 10*3/uL Normal 4.4-11.0 Comprehe nsive Internal Medicine Work Phone: Comment on above: [facility] [address] [place], [place], [phone] Partial Thromboplast TimeOrd ered By: Windows Application Packager on 10-23-2018 aPTT Coag time (PPP) 30.4 s Normal 24.1-36.2 [facility] Internal Medicine Work Phone: Comment on above: [facility] [address] [place], [place], [phone] Prothrombin Time w/INROrdere d By: Windows Application Packager on 10-23-2018 INR Coag RelTime (PPP) 1.1 {INR} Normal [facility] Work Phone: Comment on above: [facility] [address] [place], [place], [phone] Prothrombin time (PT) Coag time (PPP) 13.5 s Normal 11.7-14.9 [facility] Work Phone: Comment on above: [facility] [address] [place], [place], [phone] Basic Metabolic Profile (BMP )Ordered By: Windows Application Packager on 10-10-2018 Basic metabolic 2000 panel 1.50 mg/dL Abnormal 0.70-1.30 [facility] Work Phone: Comment on above: The validity of the calculated GFR AND GFRAA in patients over70 years has not been determined. Clinical correlation isessential. [facility] [address] [place], [place], [phone] Basic metabolic 2000 panel 10.7 {RATIO} Normal 10-20 [facility] Work Phone: Comment on above: [facility] [address] [place], [place], [phone] Basic metabolic 2000 panel 48 mL/min Abnormal [facility] Work Phone: Comment on above: Non- GFR Calc [facility] [address] [place], [place], [phone] Basic metabolic 2000 panel 107 mg/dL Abnormal 74-106 [facility] Work Phone: Comment on above: Fasting Glucose resu lt from 100 to 125 mg/dLsuggests IMPAIRED HOMEOSTASIS per A.D.A. criteria.Please note revised GLUCOSE reference range zzxpercox54/02/2018. [facility] [address] [place], [place], [address] Basic metabolic 2000 panel 5 1 Normal 5-15 [facility] Work Phone: Comment on above: [facility] [address] [place], [address] Basic metabolic 2000 panel 26.0 mmol/L Normal 21.0-32.0 [facility] Work Phone: Comment on above: [facility] [address] [place], [place], [phone] Basic metabolic 2000 panel 107 mmol/L Normal 98-107 [facility] Work Phone: Comment on above: [facility] [address] [place], [place], [address] Basic metabolic 2000 panel 4.0 mmol/L Normal 3.5-5.1 [facility] Work Phone: Comment on above: [facility] [address] [place], [address] Basic metabolic 2000 panel 138 mmol/L Normal 136-145 [facility] Work Phone: Comment on above: [facility] [address] [place], [address] Basic metabolic 2000 panel 8.2 mg/dL Abnormal 8.5-10.1 [facility] Work Phone: Comment on above: [facility] [address] [place], [address] Basic metabolic 2000 panel 16 mg/dL Normal 7-18 [facility] Work Phone: Comment on above: [facility] [address] [place], [place], [phone] Basic metabolic 2000 panel 43.93 ml/min Normal [facility] Work Phone: Comment on above: [facility] [address] [place], [place], [address] Basic metabolic 2000 panel 58 mL/min Abnormal [facility] Work Phone: Comment on above: GFR Calc [facility] [address] [place], [place], [address] CBC W/Diff, AutomatedOrdered By: Windows Application Packager on 10-10-2018 Absolute Neut 6.0 {X10_3/uL} Normal 2.0-7.7 Compreh ensive Internal Medicine Work Phone: Comment on above: [facility] [address] [place], [place], [phone] Basophils/100 WBC (Bld) 0.4 % Normal 0-1 [facility] Work Phone: Comment on above: [facility] [address] [place], [place], [phone] Eosinophils/100 WBC (Bld) 1.8 % Normal 0-5 [facility] Work Phone: Comment on above: [facility] [address] [place], [place], [address] Erythrocyte distribution width Ratio (RBC) 12.9 % Normal 11.6-14.6 [facility] Work Phone: Comment on above: [facility] [address] [place], [place], [phone] Hematocrit Volume Fraction (Bld) 47.0 % Normal 40-54 [facility] Work Phone: Comment on above: [facility] [address] [place], [place], [phone] Hemoglobin mass conc (Bld) 15.8 g/dL Normal 13.0-16.5 [facility] Work Phone: Comment on above: [facility] [address] [place], [address] IM GRAN % 0.200 % Normal 0.0-0.9 [facility] Work Phone: Comment on above: IG% - Immature Granu locytes (promyelocytes, myelocytes andmetamyelocytes) > 1% indicates that a LEFT SHIFT is Present. [facility] [address] [place], [address] Lymphocytes #/vol (Bld) 1.87 {X10_3/ul} Normal 0.83-4.51 [facility] Work Phone: Comment on above: [facility] [address] [place], [address] Lymphocytes/100 WBC (Bld) 20.6 % Normal 19-41 [facility] Work Phone: Comment on above: [facility] [address] [place], [address] MCH Entitic mass (RBC) 29.5 pg Normal 27.0-32.0 [facility] Work Phone: Comment on above: [facility] [address] [place], [address] MCHC mass conc (RBC) 33.6 {g/gl} Normal 32-36 Com prehensive Internal Medicine Work Phone: Comment on above: [facility] [address] [place], [address] MCV Entitic volume (RBC) 87.7 fL Normal 80-94 [facility] Work Phone: Comment on above: [facility] [address] [place], [address] Monocytes/100 WBC (Bld) 11.6 % Abnormal 0-10 [facility] Work Phone: Comment on above: [facility] [address] [place], [place], [phone] Neutrophils/100 WBC (Bld) 65.4 % Normal 47-70 [facility] Work Phone: Comment on above: [facility] [address] [place], [place], [phone] Platelet mean volume Entitic volume (Bld) 10.1 fL Normal 6.2-12.0 Comprehensi ve Internal Medicine Work Phone: Comment on above: [facility] [address] [place], [address] Platelets #/vol (Bld) 187 10*3/uL Normal 150-450 Co mprehensive Internal Medicine Work Phone: Comment on above: [facility] [address] [place], [address] RBC #/vol (Bld) 5.36 {M/mm3} Normal 4.6-6.2 Compreh ensive Internal Medicine Work Phone: Comment on above: [facility] [address] [place], [address] RDW SD 41.2 fL Normal 35.1-43.9 [facility] Work Phone: Comment on above: [facility] [address] [place], [address] WBC #/vol (Bld) 9.1 10*3/uL Normal 4.4-11.0 Comprehe nsive Internal Medicine Work Phone: Comment on above: [facility] [address] [place], [address] CREATININE FINGERSTICKOrdere d By: Windows Application Packager on 10-10-2018 Creatinine mass conc 1.4 mg/dL Abnormal 0.70-1.30 [facility] Work Phone: Comment on above: [facility] LaboratoryPoint of [address] [place] [address] C-REACTIVE PROTEIN ([id number])Or dered By: Windows Application Packager on 10-09-2018 CRP [Mass/Vol] 45.7 mg/L Abnormal 0.0-4.9 Comprehens tri Internal Medicine Work Phone: Comment on above: PATIENT NOT FASTINGP ERFORMED BY: CB [facility] Xazpph[address] [place] [id number] CBC with auto diff ([id number])Or dered By: Windows Application Packager on 10-09-2018 Basophils (Bld) [#/Vol] 0.0 {x10E3/uL} Normal 0.0-0.2 [facility] Work Phone: Comment on above: PATIENT NOT FASTINGP ERFORMED BY: CB [facility] Uvhkss64[address] [place] [id number] Basophils (Bld) [#/Vol] 0.0 10*3/uL Normal 0.0-0.2 [facility] Work Phone: Comment on above: PATIENT NOT FASTINGP ERFORMED BY: CB [facility] Wcpjhd4[address] [place] [id number] Basophils/100 WBC (Bld) 0 % Normal [facility] Work Phone: Comment on above: PATIENT NOT FASTINGP ERFORMED BY: CB [facility] Gygyyz36[address] [place] [id number] Eosinophils (Bld) [#/Vol] 0.1 {x10E3/uL} Normal 0.0-0.4 [facility] Work Phone: Comment on above: PATIENT NOT FASTINGP ERFORMED BY: CB [facility] Dwiasc4[address]Dublin [place] [id number] Eosinophils (Bld) [#/Vol] 0.1 10*3/uL Normal 0.0-0.4 [facility] Work Phone: Comment on above: PATIENT NOT FASTINGP ERFORMED BY: CB [facility] Ilnrjd7[address]Dublin [place] [id number] Eosinophils/100 WBC (Bld) 1 % Normal [facility] Work Phone: Comment on above: PATIENT NOT FASTINGP ERFORMED BY: AMY [facility] Otuova[address]Dublin [place] [id number] Erythrocyte distribution width (RBC) [Ratio] 13.6 % Normal 12.3-15.4 [facility] Work Phone: Comment on above: PATIENT NOT FASTINGP ERFORMED BY: CB [facility] Zmbcvf16[address]blin [place] [id number] Hematocrit (Bld) [Volume fraction] 45.8 % Normal 37.5-51.0 [facility] Work Phone: Comment on above: PATIENT NOT FASTINGP ERFORMED BY: AMY [facility] Ckopov8598 [address] RoadDublin [place] [id number] Hemoglobin (Bld) [Mass/Vol] 15.5 g/dL Normal 13.0-17.7 [facility] Work Phone: Comment on above: PATIENT NOT FASTINGP ERFORMED BY: [facility] Dafzen83[address]Dublin [place] [id number] Immature granulocytes (Bld) [#/Vol] 0.0 {x10E3/uL} Normal 0.0-0.1 [facility] Work Phone: Comment on above: PATIENT NOT FASTINGP ERFORMED BY: AMY [facility] Jgeibh97[address]Dublin [place] [id number] Immature granulocytes (Bld) [#/Vol] 0.0 10*3/uL Normal 0.0-0.1 [facility] Work Phone: Comment on above: PATIENT NOT FASTINGP ERFORMED BY: CB [facility] Udxtfj3612 [address]Dublin [place] [id number] Immature granulocytes/100 WBC (Bld) 0 % Normal [facility] Work Phone: Comment on above: PATIENT NOT FASTINGP ERFORMED BY: CB [facility] Vnwwzb4668 [address]Dublin [place] [id number] Lymphocytes (Bld) [#/Vol] 1.7 {x10E3/uL} Normal 0.7-3.1 [facility] Work Phone: Comment on above: PATIENT NOT FASTINGP ERFORMED BY: AMY [facility] Kyzvas[address] [facility] [place] [id number] Lymphocytes (Bld) [#/Vol] 1.7 10*3/uL Normal 0.7-3.1 [facility] Internal Medicine Work Phone: Comment on above: PATIENT NOT FASTINGP ERFORMED BY: CB [facility] Zlhade4568 [address] RoadNovant Health [facility] Centerin [place] [id number] Lymphocytes/100 WBC (Bld) 19 % Normal [facility] Work Phone: Comment on above: PATIENT NOT FASTINGP ERFORMED BY: AMY [facility] ValeJesrnk[address] [facility] [place] [id number] MCH (RBC) [Entitic mass] 29.2 pg Normal 26.6-33.0 [facility] Internal Medicine Work Phone: Comment on above: PATIENT NOT FASTINGP ERFORMED BY: AMY [facility] Zagiqo[address] [facility] [place] [id number] MCHC (RBC) [Mass/Vol] 33.8 g/dL Normal 31.5-35.7 [facility] Internal Medicine Work Phone: Comment on above: PATIENT NOT FASTINGP ERFORMED BY: AMY [facility] Ubgoje[address] [facility] [place] [id number] MCV (RBC) [Entitic vol] 86 fL Normal 79-97 [facility] Work Phone: Comment on above: PATIENT NOT FASTINGP ERFORMED BY: AMY [facility] Vesabh8257 [address] RoadNovant Health [facility] Centerin [place] [id number] Monocytes (Bld) [#/Vol] 0.7 {x10E3/uL} Normal 0.1-0.9 [facility] Work Phone: Comment on above: PATIENT NOT FASTINGP ERFORMED BY: CB [facility] Exfzxr9123 [address] RoadDublin [place] [id number] Monocytes (Bld) [#/Vol] 0.7 10*3/uL Normal 0.1-0.9 [facility] Work Phone: Comment on above: PATIENT NOT FASTINGP ERFORMED BY: CB [facility] Lbqsjd6265 [address] RoadDublin [place] [id number] Monocytes/100 WBC (Bld) 8 % Normal [facility] Work Phone: Comment on above: PATIENT NOT FASTINGP ERFORMED BY: CB [facility] Qjhpdd0145 [address]Dublin [place] [id number] Neutrophils (Bld) [#/Vol] 6.4 {x10E3/uL} Normal 1.4-7.0 [facility] Work Phone: Comment on above: PATIENT NOT FASTINGP ERFORMED BY: CB [facility] Ckxqec1363 [address]Dublin [place] [id number] Neutrophils (Bld) [#/Vol] 6.4 10*3/uL Normal 1.4-7.0 [facility] Work Phone: Comment on above: PATIENT NOT FASTINGP ERFORMED BY: CB [facility] Wglalq7199 [address]Dublin [place] [id number] Neutrophils/100 WBC (Bld) 72 % Normal [facility] Work Phone: Comment on above: PATIENT NOT FASTINGP ERFORMED BY: CB [facility] Kkpugs2684 [address] RoadDublin [place] [id number] Platelets (Bld) [#/Vol] 219 {x10E3/uL} Normal 150-379 [facility] Work Phone: Comment on above: PATIENT NOT FASTINGP ERFORMED BY: CB [facility] Spxkau7407 [address]Dublin [place] [id number] Platelets (Bld) [#/Vol] 219 10*3/uL Normal 150-379 [facility] Work Phone: Comment on above: PATIENT NOT FASTINGP ERFORMED BY: CB [facility] Uhyyjj6533 [address] RoadDublin [place] [id number] RBC (Bld) [#/Vol] 5.30 {x10E6/uL} Normal 4.14-5.80 [facility] Internal Medicine Work Phone: Comment on above: PATIENT NOT FASTINGP ERFORMED BY: AMY [facility] Zxowfk2256 [address] RoadDublin [place] [id number] RBC (Bld) [#/Vol] 5.30 10*6/uL Normal 4.14-5.80 [facility] Internal Medicine Work Phone: Comment on above: PATIENT NOT FASTINGP ERFORMED BY: CB [facility] Wtnpfn8894 [address] RoadDublin [place] [id number] WBC (Bld) [#/Vol] 9.0 {x10E3/uL} Normal 3.4-10.8 [facility] Internal Medicine Work Phone: Comment on above: PATIENT NOT FASTINGP ERFORMED BY: CB [facility] Lmxxnr0828 [address] RoadDublin [place] [id number] WBC (Bld) [#/Vol] 9.0 10*3/uL Normal 3.4-10.8 [facility] Internal Medicine Work Phone: Comment on above: PATIENT NOT FASTINGP ERFORMED BY: AMY [facility] Lgcacc5123 [address]Dublin [place] [id number] Metabolic Panel, Comprehensi ve ([id number])Ordered By: Windows Application Packager on 10-09-2018 Albumin [Mass/Vol] 4.0 g/dL Normal 3.5-4.8 [facility] Internal Medicine Work Phone: Comment on above: PATIENT NOT FASTINGP ERFORMED BY: CB [facility] Bidnpj6384 [address]Dublin [place] [id number] Albumin/Globulin [Mass ratio] 1.7 {ratio} Normal 1.2-2.2 [facility] Internal Medicine Work Phone: Comment on above: PATIENT NOT FASTINGP ERFORMED BY: CB [facility] Lpuwpl3335 [address]Dublin [place] [id number] ALP [Catalytic activity/Vol] 71 [iU]/L Normal 39-117 [facility] Internal Medicine Work Phone: Comment on above: PATIENT NOT FASTINGP ERFORMED BY: CB [facility] Kwdron0085 [address]Dublin [place] [id number] ALP [Catalytic activity/Vol] 71 U/L Normal 39-117 [facility] Work Phone: Comment on above: PATIENT NOT FASTINGP ERFORMED BY: [facility] Xrnjwl5337 [address]Dublin [place] [id number] ALT [Catalytic activity/Vol] 16 [iU]/L Normal 0-44 [facility] Work Phone: Comment on above: PATIENT NOT FASTINGP ERFORMED BY: [facility] Omtbzj1585 [address]Dublin [place] [id number] ALT [Catalytic activity/Vol] 16 U/L Normal 0-44 [facility] Work Phone: Comment on above: PATIENT NOT FASTINGP ERFORMED BY: [facility] Lxdsfu8718 [address]Dublin [place] [id number] AST [Catalytic activity/Vol] 13 [iU]/L Normal 0-40 [facility] Work Phone: Comment on above: PATIENT NOT FASTINGP ERFORMED BY: [facility] Eryasy2670 [address]Dublin [place] [id number] AST [Catalytic activity/Vol] 13 U/L Normal 0-40 [facility] Work Phone: Comment on above: PATIENT NOT FASTINGP ERFORMED BY: [facility] Iacpxc7847 [address]Dublin [place] [id number] Bilirubin [Mass/Vol] 0.5 mg/dL Normal 0.0-1.2 [facility] Work Phone: Comment on above: PATIENT NOT FASTINGP ERFORMED BY: [facility] Blrvtz1052 [address] RoadDublin [place] [id number] Calcium [Mass/Vol] 9.1 mg/dL Normal 8.6-10.2 [facility] Internal Medicine Work Phone: Comment on above: PATIENT NOT FASTINGP ERFORMED BY: [facility] Sonxzg6619 [address] RoadDublin [place] [id number] Chloride [Moles/Vol] 103 mmol/L Normal 96-106 [facility] Work Phone: Comment on above: PATIENT NOT FASTINGP ERFORMED BY: CB [facility] Lgfwrh8656 [address]Dublin [place] [id number] CO2 [Moles/Vol] 23 mmol/L Normal 20-29 [facility] Internal Medicine Work Phone: Comment on above: PATIENT NOT FASTINGP ERFORMED BY: CB [facility] Jzlxxa4100 [address]Dublin [place] [id number] Creatinine [Mass/Vol] 1.50 mg/dL Abnormal 0.76-1.27 [facility] Internal Medicine Work Phone: Comment on above: PATIENT NOT FASTINGP ERFORMED BY: CB [facility] Epheay8929 [address] RoadDublin [place] [id number] GFR/1.73 sq M predicted among blacks CKD-EPI (S/P/Bld) [Vol rate/Area] 51 mL/min/1.73 Abnormal [facility] Work Phone: Comment on above: PATIENT NOT FASTINGP ERFORMED BY: CB [facility] Axihkt2348 [address] RoadDublin [place] [id number] GFR/1.73 sq M predicted among non-blacks CKD-EPI (S/P/Bld) [Vol rate/Area] 44 mL/min/1.73 Abnormal [facility] Work Phone: Comment on above: PATIENT NOT FASTINGP ERFORMED BY: CB [facility] Obwexf2055 [address] [place] [id number] Globulin (S) [Mass/Vol] 2.3 g/dL Normal 1.5-4.5 [facility] Work Phone: Comment on above: PATIENT NOT FASTINGP ERFORMED BY: CB [facility] Grwwed2297 [address] RoadDublin [place] [id number] Glucose [Mass/Vol] 106 mg/dL Abnormal 65-99 [facility] Internal Medicine Work Phone: Comment on above: PATIENT NOT FASTINGP ERFORMED BY: CB [facility] Qptuad6374 [address]Dublin [place] [id number] Potassium [Moles/Vol] 5.5 mmol/L Abnormal 3.5-5.2 [facility] prehensive Internal Medicine Work Phone: Comment on above: PATIENT NOT FASTINGP ERFORMED BY: AMY [facility] Pxabzw4939 [address] [facility] [id number] Protein [Mass/Vol] 6.3 g/dL Normal 6.0-8.5 [facility] Internal Medicine Work Phone: Comment on above: PATIENT NOT FASTINGP ERFORMED BY: CB [facility] Qgfnju2425 [address] [facility] [id number] Sodium [Moles/Vol] 142 mmol/L Normal 134-144 [facility] Internal Medicine Work Phone: Comment on above: PATIENT NOT FASTINGP ERFORMED BY: CB [facility] Czgcvu0449 [address] [facility] [id number] Urea nitrogen [Mass/Vol] 18 mg/dL Normal 8-27 [facility] Work Phone: Comment on above: PATIENT NOT FASTINGP ERFORMED BY: CB [facility] Engion8325 [address] [facility] [id number] Urea nitrogen/Creatinine [Mass ratio] 12 mg/mg Normal 10-24 [facility] Work Phone: Comment on above: PATIENT NOT FASTINGP ERFORMED BY: AMY [facility] Wbpkfx6933 [facility] [id number] Sed Rate Erythrocyte ([id number]) Ordered By: Windows Application Packager on 10-09-2018 ESR (Bld) [Velocity] 5 mm/h Normal 0-30 [facility] Work Phone: Comment on above: PATIENT NOT FASTINGP ERFORMED BY: CB [facility] Suzzcf3287 [facility] [id number] CREATININE FINGERSTICKOrdere d By: Windows Application Packager on 03-06-2018 Creatinine [Mass/Vol] 1.1 mg/dL Normal 0.70-1.30 [facility] prehensive Internal Medicine Work Phone: Comment on above: [facility] LaboratoryPoint of [address] [place] [address] GFR/1.73 sq M predicted among non-blacks MDRD (S/P/Bld) [Vol rate/Area] mL/min/{1.73_m2} Normal [facility] Work Phone: Comment on above: [facility] LaboratoryPoint of [address] [place] [address] CBC W/Diff, AutomatedOrdered By: Windows Application Packager on 12-20-2017 Absolute Neut 3.1 {X10_3/uL} Normal 2.0-7.7 Compreh ensive Internal Medicine Work Phone: Comment on above: [facility] [address] [place], [place], [phone] Basophils/100 WBC (Bld) 0.8 % Normal 0-1 [facility] Work Phone: Comment on above: [facility] [place], [address] Eosinophils/100 WBC (Bld) 2.7 % Normal 0-5 [facility] Work Phone: Comment on above: [facility] [place], [address] Erythrocyte distribution width (RBC) [Ratio] 14.0 % Normal 11.6-14.6 [facility] Work Phone: Comment on above: [facility] [place], [place], [phone] Hematocrit (Bld) [Volume fraction] 48.2 % Normal 40-54 [facility] Work Phone: Comment on above: [facility] [address] [place], [address] Hemoglobin (Bld) [Mass/Vol] 16.2 g/dL Normal 13.0-16.5 [facility] Work Phone: Comment on above: [facility] [address] [place], [address] IM GRAN % 0.200 % Normal 0.0-0.9 [facility] Work Phone: Comment on above: IG% - Immature Granu locytes (promyelocytes, myelocytes andmetamyelocytes) > 1% indicates that a LEFT SHIFT is Present. [facility] [address] [place], [address](226 Lymphocytes (Bld) [#/Vol] 1.33 {X10_3/ul} Normal 0.83-4.51 [facility] Work Phone: Comment on above: [facility] [address] [place], [address] Lymphocytes/100 WBC (Bld) 25.5 % Normal 19-41 [facility] Work Phone: Comment on above: [facility] [address] [place], [address] MCH (RBC) [Entitic mass] 28.3 pg Normal 27.0-32.0 [facility] Work Phone: Comment on above: [facility] [address] [place], [address] MCHC (RBC) [Mass/Vol] 33.6 {g/gl} Normal 32-36 [facility] Internal Medicine Work Phone: Comment on above: [facility] [address] [place], [address] MCV (RBC) [Entitic vol] 84.1 fL Normal 80-94 [facility] Work Phone: Comment on above: [facility] [address] [place], [address] Monocytes/100 WBC (Bld) 10.9 % Abnormal 0-10 [facility] Work Phone: Comment on above: [facility] [address] [place], [address] Neutrophils/100 WBC (Bld) 59.9 % Normal 47-70 [facility] Work Phone: Comment on above: [facility] [address] [place], [address] Platelet mean volume (Bld) [Entitic vol] 10.8 fL Normal 6.2-12.0 Comprehensiv e Internal Medicine Work Phone: Comment on above: [facility] [address] [place], [address] Platelets (Bld) [#/Vol] 215 10*3/uL Normal 150-450 [facility] Internal Medicine Work Phone: Comment on above: [facility] [address] [place], [address](247) RBC (Bld) [#/Vol] 5.73 {M/mm3} Normal 4.6-6.2 Compr ehensive Internal Medicine Work Phone: Comment on above: [facility] [address] [place], [address] RDW SD 42.5 fL Normal 35.1-43.9 [facility] Medicine Work Phone: Comment on above: [facility] [address] [place], [address] WBC (Bld) [#/Vol] 5.2 10*3/uL Normal 4.4-11.0 [facility]pre [facility] Internal Medicine Work Phone: Comment on above: [facility] [address] [place], [address] CCP IgG AntibodiesOrdered By : Windows Application Packager on 12-20-2017 Cyclic citrullinated peptide IgG Qn 5 {units} Normal 0-19 [facility] Medicine Work Phone: Comment on above: Negative <20 Weak po sitive 20 - 39 Moderate positive 40 - 59 Strong positive >59Performed at: 2Q - [facility] [address] [place], [place] [id number] Director: Main Beckham PhD, Phone: [phone] at: BN - [facility] [address] [place], [place] [address]Gsa Director: Jesus Alberto Crenshaw MD, Phone: [phone] [facility] (refer to re port for specific site)refer to report for address and phone number CRPOrdered By: System Manage r on 12-20-2017 CRP High sensitivity method [Mass/Vol] mg/L Normal 0.0-3.0 [facility] Work Phone: Comment on above: C-Reactive Protein ( CRP) provides useful information for thediagnosis, therapy and monitoring of inflammatory processesand associated diseases. For the evaluation of Relative Riskfor Cardiovascular Disease, a High Sensitivity CRP (HSCRP)should be ordered. [facility] [address] [place], [place], [phone] Comprehensive Metabolic Prof ilOrdered By: Windows Application Packager on 12-20-2017 Comprehensive metabolic 2000 panel 8.5 mg/dL Normal 8.5-10.1 Comprehensi ve Internal Medicine Work Phone: Comment on above: [facility] [address] [place], [place], [phone] Comprehensive metabolic 2000 panel 1.44 mg/dL Abnormal 0.70-1.30 Comprehensi ve Internal Medicine Work Phone: Comment on above: The validity of the calculated GFR AND GFRAA in patients over70 years has not been determined. Clinical correlation isessential. [facility] [address] [place], [place], [phone] Comprehensive metabolic 2000 panel 23 mg/dL Abnormal 7-18 Comprehensi ve Internal Medicine Work Phone: Comment on above: [facility] [address] [place], [place], [phone] Comprehensive metabolic 2000 panel 78 mg/dL Normal 74-106 Comprehensi ve Internal Medicine Work Phone: Comment on above: Please note revised GLUCOSE reference range /08/2017. [facility] [address] [place], [place], [address] Comprehensive metabolic 2000 panel 7.1 g/dL Normal 6.4-8.2 Comprehensi ve Internal Medicine Work Phone: Comment on above: [facility] [address] [place], [place], [address] Comprehensive metabolic 2000 panel 3.6 g/dL Normal 3.2-5.0 Comprehensi ve Internal Medicine Work Phone: Comment on above: [facility] [address] [place], [place], [address] Comprehensive metabolic 2000 panel 109 mmol/L Abnormal 98-107 Comprehensi ve Internal Medicine Work Phone: Comment on above: [facility] [address] [place], [place], [address] Comprehensive metabolic 2000 panel 3.5 g/dL Normal 2.2-4.2 Comprehensi ve Internal Medicine Work Phone: Comment on above: [facility] [address] [place], [place], [address] Comprehensive metabolic 2000 panel 1.0 {RATIO} Normal 0.9-2.4 Comprehensi ve Internal Medicine Work Phone: Comment on above: [facility] [address] [place], [place], [address] Comprehensive metabolic 2000 panel 51 mL/min Abnormal Comprehensi ve Internal Medicine Work Phone: Comment on above: Non- GFR Calc [facility] [address] [place], [place], [address] Comprehensive metabolic 2000 panel 16 U/L Normal 15-37 Comprehensi ve Internal Medicine Work Phone: Comment on above: [facility] [address] [place], [place], [address] Comprehensive metabolic 2000 panel 71 U/L Normal 45-117 Comprehensi ve Internal Medicine Work Phone: Comment on above: [facility] [address] [place], [place], [address] Comprehensive metabolic 2000 panel 23 U/L Normal 16-61 Comprehensi ve Internal Medicine Work Phone: Comment on above: [facility] [address] [place], [place], [address] Comprehensive metabolic 2000 panel 0.60 mg/dL Normal 0.20-1.00 Comprehensi ve Internal Medicine Work Phone: Comment on above: [facility] [address] [place], [place], [address] Comprehensive metabolic 2000 panel 142 mmol/L Normal 136-145 Comprehensi ve Internal Medicine Work Phone: Comment on above: [facility] [address] [place], [place], [address] Comprehensive metabolic 2000 panel 4.4 mmol/L Normal 3.5-5.1 Comprehensi ve Internal Medicine Work Phone: Comment on above: [facility] [address] [place], [place], [address] Comprehensive metabolic 2000 panel 61 mL/min Normal Comprehensi ve Internal Medicine Work Phone: Comment on above: GFR Calc [facility] [address] [place], [place], [address] Comprehensive metabolic 2000 panel 9 1 Normal 5-15 Comprehensi ve Internal Medicine Work Phone: Comment on above: [facility] [address] [place], [place], [address] Comprehensive metabolic 2000 panel 24.0 mmol/L Normal 21.0-32.0 Comprehensi ve Internal Medicine Work Phone: Comment on above: [facility] [address] [place], [address] Comprehensive metabolic 2000 panel 16.0 {RATIO} Normal 10-20 Comprehensi Internal Medicine Work Phone: Comment on above: [facility] [address] [place], [address] Erythrocyte Sed RateOrdered By: Windows Application Packager on 12-20-2017 Erythrocyte Sed Rate 8 mm/h Normal 0-20 Comp rehensive Internal Medicine Work Phone: Comment on above: [facility] [address] [place], [address] HLA A37Clbfpry By: System Dorothy dan on 12-20-2017 HLA B27 Negative Normal Comprehensive Internal Medicine Work Phone: Comment on above: HLA-B*27 VcjzwqswR93 allele interpretation for all loci based on IMGT/HLAdatabase version 3.27This test was developed and its performance characteristicsdetermined by [employer]. It has not been cleared or approvedby the Food and Drug Administration.HLA Lab CLIA ID Number [id number] test was performed using PCR (Polymerase ChainReaction)/SSOP (Sequence Specific Oligonucleotide Probes)technique. SBT (Sequence Based Typing) and/or SSP(Sequence Specific Primers) may be used as supplementalmethods when necessary. Please contact HLA CustomerService at if you have any questions. Director of HLA Laboratory Dr Main Beckham, PhD [facility] (refer to port for specific site)refer to report for address and phone number PSA,Total- DiagnosticOrdered By: Windows Application Packager on 12-20-2017 PSA,Total- Diagnostic 0.01 ng/mL Normal 0.0-4.0 [facility] prehensive Internal Medicine Work Phone: Comment on above: This test was perfor med using the TPSA assay method for the[facility] chemistry system. Values obtained with differentassay methods cannot be used interchangably.When changing PSA assays in the course of monitoring apatient, additional sequential testing should be carriedout to confirm baseline values. [facility] [address] [place], [address] Rheumatoid FactorOrdered By: Windows Application Packager on 12-20-2017 Rheumatoid factor Qn [IU]/mL Normal Comp rehensive Internal Medicine Work Phone: Comment on above: [facility] [address] [place], [place], [address] Culture, ThroatOrdered By: Maykel ystem Corporate Risk Analyst on 11-23-2017 Bacteria identified Cx Nom (Throat) See Note Normal Comprehensive Internal Medicine Work Phone: Comment on above: Culture, ThroatMixed normal respiratory giorgio. No Haemophilus, Streptococcus pneumoniae, beta-hemolytic Streptococcus or Staphylococcus aureus isolated. [facility] [address] [place], [address] POTASSIUM SERUM ([id number])Order ed By: Windows Application Packager on 02-06-2016 Potassium [Moles/Vol] 5.3 mmol/L Abnormal 3.5-5.2 [facility] prehensive Internal Medicine Work Phone: Comment on above: PATIENT NOT FASTINGP ERFORMED BY: [facility] CountyOqojyd3146 [facility] [id number] Information: [id number], [id number] CALCIFIDIOL (98732) VIT D 25 Ordered By: Windows Application Packager on 01-27-2016 25-Hydroxyvitamin D2+25-Hydroxyvitamin D3 [Mass/Vol] 25.6 ng/mL Abnormal 30.0-100.0 [facility] Work Phone: Comment on above: Vitamin D deficiency has been defined by the [place] ofMedicine and an Endocrine Society practice guideline as alevel of serum 25-OH vitamin D less than 20 ng/mL (1,2).The Endocrine Society went on to further define vitamin Dinsufficiency as a level between 21 and 29 ng/mL (2).1. IOM ([place] of Medicine). 2010. Dietary reference intakes for calcium and D. [place]: The National Academies Press.2. Meme STEPHENSON, Lian ANDERSON, Donald HERNANDEZ, et al. Evaluation, treatment, and prevention of vitamin D deficiency: an Endocrine Society clinical practice guideline. JCEM. 2010; 96(7):1911-30. PATIENT NOT FASTINGP ERFORMED BY: [place] [id number] [facility] [id number] CBC W/AUTO DIFF WBC (97200)O rdered By: Windows Application Packager on 01-27-2016 Basophils (Bld) [#/Vol] 0.1 {x10E3/uL} Normal 0.0-0.2 [facility] Work Phone: Comment on above: PATIENT NOT FASTINGP ERFORMED BY: [address] [id number] Information: [id number], DRAW FEE 978736 Basophils (Bld) [#/Vol] 0.1 10*3/uL Normal 0.0-0.2 [facility] Work Phone: Comment on above: PATIENT NOT FASTINGP ERFORMED BY: [address] [id number] Information: [id number], DRAW FEE 096464 Basophils/100 WBC (Bld) 1 % Normal [facility] Medicine Work Phone: Comment on above: PATIENT NOT FASTINGP ERFORMED BY: [address] [id number] Information: [id number], DRAW FEE 997482 Eosinophils (Bld) [#/Vol] 0.1 {x10E3/uL} Normal 0.0-0.4 [facility] Work Phone: Comment on above: PATIENT NOT FASTINGP ERFORMED BY: [address] [id number] Information: [id number], DRAW FEE 121080 Eosinophils (Bld) [#/Vol] 0.1 10*3/uL Normal 0.0-0.4 [facility] Work Phone: Comment on above: PATIENT NOT FASTINGP ERFORMED BY: [address] [id number] Information: [id number], DRAW FEE 547602 Eosinophils/100 WBC (Bld) 3 % Normal [facility] Medicine Work Phone: Comment on above: PATIENT NOT FASTINGP ERFORMED BY: AMY [facility]omackRanken [facility] Yirbpq7884 [facility] [id number] Information: [id number], DRAW FEE 774255 Erythrocyte distribution width (RBC) [Ratio] 14.2 % Normal 12.3-15.4 [facility] Medicine Work Phone: Comment on above: PATIENT NOT FASTINGP ERFORMED BY: [address] [id number] Information: [id number], DRAW FEE 193550 Hematocrit (Bld) [Volume fraction] 47.2 % Normal 37.5-51.0 [facility] Internal Medicine Work Phone: Comment on above: PATIENT NOT FASTINGP ERFORMED BY: [facility] W[address] [id number] Information: [id number], DRAW FEE 105070 Hemoglobin (Bld) [Mass/Vol] 15.6 g/dL Normal 12.6-17.7 [facility] Work Phone: Comment on above: PATIENT NOT FASTINGP ERFORMED BY: ShantaRanken [facility] [address] [id number] Information: [id number], DRAW FEE 222058 Immature granulocytes (Bld) [#/Vol] 0.0 {x10E3/uL} Normal 0.0-0.1 [facility] Work Phone: Comment on above: PATIENT NOT FASTINGP ERFORMED BY: [address] [id number] Information: [id number], DRAW FEE 570228 Immature granulocytes (Bld) [#/Vol] 0.0 10*3/uL Normal 0.0-0.1 [facility] Work Phone: Comment on above: PATIENT NOT FASTINGP ERFORMED BY: [address] [id number] Information: [id number], DRAW FEE 652484 Immature granulocytes/100 WBC (Bld) 0 % Normal [facility] Internal Medicine Work Phone: Comment on above: PATIENT NOT FASTINGP ERFORMED BY: AMY Vale6370 [facility] [id number] Information: [id number], DRAW FEE 125499 Lymphocytes (Bld) [#/Vol] 1.6 {x10E3/uL} Normal 0.7-3.1 [facility] Work Phone: Comment on above: PATIENT NOT FASTINGP ERFORMED BY: AMY [address] [id number] Information: [id number], DRAW FEE 427386 Lymphocytes (Bld) [#/Vol] 1.6 10*3/uL Normal 0.7-3.1 [facility] Medicine Work Phone: Comment on above: PATIENT NOT FASTINGP ERFORMED BY: Shanta[address] [id number] Information: [id number], DRAW FEE 640941 Lymphocytes/100 WBC (Bld) 30 % Normal [facility] Internal Medicine Work Phone: Comment on above: PATIENT NOT FASTINGP ERFORMED BY: AMY WomackRanken [facility] [address] [id number] Information: [id number], DRAW FEE 769166 MCH (RBC) [Entitic mass] 28.3 pg Normal 26.6-33.0 [facility] Internal Medicine Work Phone: Comment on above: PATIENT NOT FASTINGP ERFORMED BY: [address] [id number] Information: [id number], DRAW FEE 751530 MCHC (RBC) [Mass/Vol] 33.1 g/dL Normal 31.5-35.7 [facility] Internal Medicine Work Phone: Comment on above: PATIENT NOT FASTINGP ERFORMED BY: [address] [id number] Information: [id number], DRAW FEE 282568 MCV (RBC) [Entitic vol] 86 fL Normal 79-97 [facility] Internal Medicine Work Phone: Comment on above: PATIENT NOT FASTINGP ERFORMED BY: AMY [facility]University [facility] [id number] Information: [id number], DRAW FEE 791343 Monocytes (Bld) [#/Vol] 0.5 {x10E3/uL} Normal 0.1-0.9 [facility] Medicine Work Phone: Comment on above: PATIENT NOT FASTINGP ERFORMED BY: AMY Heller [address] [id number] Information: [id number], DRAW FEE 338049 Monocytes (Bld) [#/Vol] 0.5 10*3/uL Normal 0.1-0.9 [facility] Medicine Work Phone: Comment on above: PATIENT NOT FASTINGP ERFORMED BY: AMY Heller [address] [id number] Information: [id number], DRAW FEE 661245 Monocytes/100 WBC (Bld) 9 % Normal [facility] Medicine Work Phone: Comment on above: PATIENT NOT FASTINGP ERFORMED BY: AMY Perez[address] [id number] Information: [id number], DRAW FEE 678140 Neutrophils (Bld) [#/Vol] 3.0 {x10E3/uL} Normal 1.4-7.0 [facility] Medicine Work Phone: Comment on above: PATIENT NOT FASTINGP ERFORMED BY: AMY Heller[address] [id number] Information: [id number], DRAW FEE 128136 Neutrophils (Bld) [#/Vol] 3.0 10*3/uL Normal 1.4-7.0 [facility] Medicine Work Phone: Comment on above: PATIENT NOT FASTINGP ERFORMED BY: AMY Womack[address] [id number] Information: [id number], DRAW FEE 361411 Neutrophils/100 WBC (Bld) 57 % Normal [facility] Medicine Work Phone: Comment on above: PATIENT NOT FASTINGP ERFORMED BY: AMY PoonUniversity Hospital [id number] Information: [id number], DRAW FEE 069791 Platelets (Bld) [#/Vol] 201 {x10E3/uL} Normal 150-379 Comprehensive Internal Medicine Work Phone: Comment on above: PATIENT NOT FASTINGP ERFORMED BY: AMY [facility] Vomtnw3694 [facility] [id number] Information: [id number], DRAW FEE 951367 Platelets (Bld) [#/Vol] 201 10*3/uL Normal 150-379 [facility] Internal Medicine Work Phone: Comment on above: PATIENT NOT FASTINGP ERFORMED BY: AMY Gabrielle Perezlin6370 [facility] [id number] Information: [id number], DRAW FEE 732892 RBC (Bld) [#/Vol] 5.51 {x10E6/uL} Normal 4.14-5.80 [facility] Internal Medicine Work Phone: Comment on above: PATIENT NOT FASTINGP ERFORMED BY: AMY Gabrielle Perezlin6370 [facility] [id number] Information: [id number], DRAW FEE 220967 RBC (Bld) [#/Vol] 5.51 10*6/uL Normal 4.14-5.80 [facility] Internal Medicine Work Phone: Comment on above: PATIENT NOT FASTINGP ERFORMED BY: AMY [facility] Cdeehd8157 [facility] [id number] Information: [id number], DRAW FEE 938646 WBC (Bld) [#/Vol] 5.3 {x10E3/uL} Normal 3.4-10.8 [facility] Internal Medicine Work Phone: Comment on above: PATIENT NOT FASTINGP ERFORMED BY: AMY [facility] Wctvpz5[address] RoadDublin [place] [id number] Information: [id number], DRAW FEE 834364 WBC (Bld) [#/Vol] 5.3 10*3/uL Normal 3.4-10.8 [facility] Internal Medicine Work Phone: Comment on above: PATIENT NOT FASTINGP ERFORMED BY: AMY [facility] Vtmxgx7[address] RoadDublin [place] [id number] Information: [id number], DRAW FEE 789805 METABOLIC PANEL, COMPREHENSI VE (82982)Ordered By: Windows Application Packager on 01-27-2016 Albumin [Mass/Vol] 4.1 g/dL Normal 3.5-4.8 [facility] Internal Medicine Work Phone: Comment on above: PATIENT NOT FASTINGP ERFORMED BY: AMY LabMalaikarp Ihymtg9926 [address] RoadDublin [place] [id number] Albumin/Globulin [Mass ratio] 1.7 {ratio} Normal 1.1-2.5 [facility] Internal Medicine Work Phone: Comment on above: PATIENT NOT FASTINGP ERFORMED BY: [facility] Nlwkvl5830 [address] RoadDublin [place] [id number] ALP [Catalytic activity/Vol] 69 [iU]/L Normal 39-117 [facility] Medicine Work Phone: Comment on above: PATIENT NOT FASTINGP ERFORMED BY: [facility] Fihupe1186 [address] RoadDublin [place] [id number] ALP [Catalytic activity/Vol] 69 U/L Normal 39-117 [facility] Medicine Work Phone: Comment on above: PATIENT NOT FASTINGP ERFORMED BY: CB [facility] Rqlvkb7232 [address]Dublin [place] [id number] ALT [Catalytic activity/Vol] 14 [iU]/L Normal 0-44 [facility] Medicine Work Phone: Comment on above: PATIENT NOT FASTINGP ERFORMED BY: [facility] Qmqmtb0181 [address]Dublin [place] [id number] ALT [Catalytic activity/Vol] 14 U/L Normal 0-44 [facility] Work Phone: Comment on above: PATIENT NOT FASTINGP ERFORMED BY: AMY [facility] Trluik99[address] RoadDublin [place] [id number] AST [Catalytic activity/Vol] 16 [iU]/L Normal 0-40 [facility] Work Phone: Comment on above: PATIENT NOT FASTINGP ERFORMED BY: AMY [facility] Ygyemu0108 [address]Dublin [place] [id number] AST [Catalytic activity/Vol] 16 U/L Normal 0-40 [facility] Work Phone: Comment on above: PATIENT NOT FASTINGP ERFORMED BY: AMY [facility] Kocgts9286 [address]Dublin [place] [id number] Bilirubin [Mass/Vol] 0.4 mg/dL Normal 0.0-1.2 Comp [facility] Work Phone: Comment on above: PATIENT NOT FASTINGP ERFORMED BY: AMY [facility] Tjuewq8652 [address]Dublin [place] [id number] Calcium [Mass/Vol] 8.9 mg/dL Normal 8.6-10.2 [facility] Internal Medicine Work Phone: Comment on above: PATIENT NOT FASTINGP ERFORMED BY: AMY [facility] Ajeoxt1443 [address]Dublin [place] [id number] Chloride [Moles/Vol] 103 mmol/L Normal 97-108 Comp [facility] Internal [facility] Work Phone: Comment on above: PATIENT NOT FASTINGP ERFORMED BY: AMY [facility] Kzxaih8738 [address] RoadDublin [place] [id number] CO2 [Moles/Vol] 22 mmol/L Normal 18-29 Comprehen [facility] Internal Medicine Work Phone: Comment on above: PATIENT NOT FASTINGP ERFORMED BY: AMY [facility] Veuicl6917 [address] RoadDublin [place] [id number] Creatinine [Mass/Vol] 1.43 mg/dL Abnormal 0.76-1.27 [facility] Work Phone: Comment on above: PATIENT NOT FASTINGP ERFORMED BY: [facility] Xaouio7282 [address] RoadDublin [place] [id number] GFR/1.73 sq M predicted among blacks CKD-EPI (S/P/Bld) [Vol rate/Area] 55 mL/min/1.73 Abnormal [facility] Internal Medicine Work Phone: Comment on above: PATIENT NOT FASTINGP ERFORMED BY: [facility] Gbhazv4703 [address]Dublin [place] [id number] GFR/1.73 sq M predicted among non-blacks CKD-EPI (S/P/Bld) [Vol rate/Area] 48 mL/min/1.73 Abnormal [facility] Medicine Work Phone: Comment on above: PATIENT NOT FASTINGP ERFORMED BY: [facility] Zuekgi3315 [address] RoadNovant Health [facility] Centerin [place] [id number] Globulin (S) [Mass/Vol] 2.4 g/dL Normal 1.5-4.5 [facility] Internal Medicine Work Phone: Comment on above: PATIENT NOT FASTINGP ERFORMED BY: [facility] Ingtdc7711 [address]iel RoadNovant Health Brunswick Medical Centerin [place] [id number] Glucose [Mass/Vol] 85 mg/dL Normal 65-99 [facility] Work Phone: Comment on above: PATIENT NOT FASTINGP ERFORMED BY: [facility] Yaqoqk5538 [address] [facility] [place] [id number] Potassium [Moles/Vol] 5.5 mmol/L Abnormal 3.5-5.2 [facility] Work Phone: Comment on above: PATIENT NOT FASTINGP ERFORMED BY: [facility] Urolpd1128 [address]iel RoadDublin [place] [id number] Protein [Mass/Vol] 6.5 g/dL Normal 6.0-8.5 [facility] Work Phone: Comment on above: PATIENT NOT FASTINGP ERFORMED BY: [facility] Xfgcxh4699 Curiel RoadDublin [place] [id number] Sodium [Moles/Vol] 141 mmol/L Normal 134-144 [facility] Work Phone: Comment on above: PATIENT NOT FASTINGP ERFORMED BY: AMY [facility] Hedqzm8133 [address]iel RoadDublin [place] [id number] Urea nitrogen [Mass/Vol] 20 mg/dL Normal 8-27 [facility] Work Phone: Comment on above: PATIENT NOT FASTINGP ERFORMED BY: CB [facility] Mdigme1451 [address] RoadDublin [place] [id number] Urea nitrogen/Creatinine [Mass ratio] 14 mg/mg Normal 10-22 [facility] Work Phone: Comment on above: PATIENT NOT FASTINGP ERFORMED BY: CB [facility] Qfwfzh8363 [address] RoadDublin [place] [id number] MICROALBUMINOrdered By: Syst em Corporate Risk Analyst on 01-27-2016 Albumin DL <= 20 mg/L (U) [Mass/Vol] mg/dL Normal [facility] Work Phone: Comment on above: PATIENT NOT FASTINGP ERFORMED BY: AMY [facility] Qwysnc0430 [address] RoadDublin [place] [id number] Albumin DL <= 20 mg/L (U) [Mass/Vol] mg/dL Normal [facility] Work Phone: Comment on above: PATIENT NOT FASTINGP ERFORMED BY: CB [facility] Edsorb5866 [address] RoadDublin [place] [id number] Albumin/Creatinine (U) [Mass ratio] <3.0 Normal 0.0-30.0 [facility] Work Phone: Comment on above: PATIENT NOT FASTINGP ERFORMED BY: CB [facility] Jwiozs9670 [address] RoadDublin [place] [id number] Creatinine (U) [Mass/Vol] 101.1 mg/dL Normal [facility] Work Phone: Comment on above: PATIENT NOT FASTINGP ERFORMED BY: CB [facility] Pqfkdr3966 [address] RoadDublin [place] [id number] Microscopic ExaminationOrder ed By: Windows Application Packager on 01-27-2016 Bacteria LM.HPF (Urine sed) [#/Area] Few Normal Comprehensi ve Internal Medicine Work Phone: Comment on above: PATIENT NOT FASTINGP ERFORMED BY: CB [facility] Jqwgqq4105 [address] RoadDublin [place] [id number] Epithelial cells LM.HPF (Urine sed) [#/Area] 0-10 Normal 0 - 10 [facility] Work Phone: Comment on above: PATIENT NOT FASTINGP ERFORMED BY: CB [facility] Ycphuc3734 [address] RoadDublin [place] [id number] Mucus Ql (Urine sed) Present Normal Comp rehensive Internal Medicine Work Phone: Comment on above: PATIENT NOT FASTINGP ERFORMED BY: CB [facility] Mfrecr9810 [address] RoadDublin [place] [id number] RBC LM.HPF (Urine sed) [#/Area] 0-2 Normal 0 - 2 [facility] Work Phone: Comment on above: PATIENT NOT FASTINGP ERFORMED BY: CB [facility] Jhlweo6115 [address] RoadDublin [place] [id number] WBC LM.HPF (Urine sed) [#/Area] 0-5 Normal 0 - 5 [facility] Work Phone: Comment on above: PATIENT NOT FASTINGP ERFORMED BY: CB [facility] Vlbnfg4141 [address] RoadDublin [place] [id number] TSH ([id number])Ordered By: Syste m Corporate Risk Analyst on 01-27-2016 TSH Qn 0.996 {uIU/mL} Normal 0.450-4.50 0 [facility] Work Phone: Comment on above: PATIENT NOT FASTINGP ERFORMED BY: CB [facility] Rfprlp4251 [address] RoadDublin [place] [id number] URINALYSIS, W/ MICRO ([id number]) Ordered By: Windows Application Packager on 01-27-2016 Appearance (U) Clear Normal Comprehens tri Internal Medicine Work Phone: Comment on above: PATIENT NOT FASTINGP ERFORMED BY: CB [facility] Jdbpry1344 [address] RoadDublin [place] [id number] Bilirubin Ql (U) Negative Normal Comprehe nsive Internal Medicine Work Phone: Comment on above: PATIENT NOT FASTINGP ERFORMED BY: AMY [facility] Dxxcuf7862 [address] RoadDublin [place] [id number] Bilirubin Ql (U) Negative Normal Comprehe nsive Internal Medicine Work Phone: Comment on above: PATIENT NOT FASTINGP ERFORMED BY: AMY [facility] Zdsdzd4953 [address] RoadDublin [place] [id number] Color (U) Yellow Normal [facility] Work Phone: Comment on above: PATIENT NOT FASTINGP ERFORMED BY: AMY [facility] Uenpib7476 [address] RoadDublin [place] [id number] Glucose Ql (U) Negative Normal Comprehens tri Internal Medicine Work Phone: Comment on above: PATIENT NOT FASTINGP ERFORMED BY: AMY [facility] Ullqnf3802 [address] RoadDublin [place] [id number] Glucose Ql (U) Negative Normal Comprehens tri Internal Medicine Work Phone: Comment on above: PATIENT NOT FASTINGP ERFORMED BY: AMY [facility] Tzmbay0743 [address] RoadDublin [place] [id number] Hemoglobin Ql (U) Negative Normal Compreh ensive Internal Medicine Work Phone: Comment on above: PATIENT NOT FASTINGP ERFORMED BY: AMY [facility] Iwcivn6357 [address] RoadDublin [place] [id number] Hemoglobin Ql (U) Negative Normal Compreh ensive Internal Medicine Work Phone: Comment on above: PATIENT NOT FASTINGP ERFORMED BY: AMY [facility] Fpvhpg0587 [address] RoadDublin [place] [id number] Ketones Ql (U) Negative Normal Comprehens tri Internal Medicine Work Phone: Comment on above: PATIENT NOT FASTINGP ERFORMED BY: CB [facility] Ohivmf3004 [address] RoadDublin [place] [id number] Ketones Ql (U) Negative Normal Comprehens tri Internal Medicine Work Phone: Comment on above: PATIENT NOT FASTINGP ERFORMED BY: CB [facility] Niuyce7943 [address] RoadDublin [place] [id number] Leukocyte esterase Test strip Ql (U) Negative Normal [facility] Work Phone: Comment on above: PATIENT NOT FASTINGP ERFORMED BY: AMY ShantaJaiden PerezNscslw1841 [address] RoadDublin [place] [id number] Leukocyte esterase Test strip Ql (U) Negative Normal [facility] Work Phone: Comment on above: PATIENT NOT FASTINGP ERFORMED BY: AMY Vale6370 [address] Roadblin [place] [id number] Microscopic observation LM Nom (Urine sed) MICRON Normal [facility] Work Phone: Comment on above: Microscopic follows if indicated. PATIENT NOT FASTINGP ERFORMED BY: AMY Vale6370 [address] Roadblin [place] [id number] Microscopic observation LM Nom (Urine sed) See below: Normal [facility] Work Phone: Comment on above: Microscopic was yany cated and was performed. PATIENT NOT FASTINGP ERFORMED BY: AMY Perezlin6370 [address] RoadNovant Health Brunswick Medical Centerin [place] [id number] Nitrite Ql (U) Negative Normal Comprehens tri Internal Medicine Work Phone: Comment on above: PATIENT NOT FASTINGP ERFORMED BY: AMY Perezlin6[address] [place] [id number] Nitrite Ql (U) Negative Normal Comprehens tri Internal Medicine Work Phone: Comment on above: PATIENT NOT FASTINGP ERFORMED BY: AMY Perezlin6370 [address] [facility] [id number] pH (U) 6.0 [pH] Normal 5.0-7.5 [facility] Work Phone: Comment on above: PATIENT NOT FASTINGP ERFORMED BY: AMY Perezlin6370 [address] RoadDublin [place] [id number] Protein Ql (U) Negative Normal Comprehens tri Internal Medicine Work Phone: Comment on above: PATIENT NOT FASTINGP ERFORMED BY: AMY Perezlin6370 [address] [facility]Critical access hospital [id number] Protein Ql (U) Negative Normal Comprehens tri Internal Medicine Work Phone: Comment on above: PATIENT NOT FASTINGP ERFORMED BY: AMY Heller Dxoiec5257 [facility] [id number] Specific gravity (U) [Rel density] 1.021 1 Normal 1.005-1.03 0 [facility] Internal Medicine Work Phone: Comment on above: PATIENT NOT FASTINGP ERFORMED BY: [facility]6370 [facility] [id number] Urobilinogen (U) [Mass/Vol] 0.2 mg/dL Normal 0.2-1.0 [facility] Internal Medicine Work Phone: Comment on above: PATIENT NOT FASTINGP ERFORMED BY: [facility]6370 [facility] [id number] Urobilinogen Test strip (U) [Mass/Vol] 0.2 mg/dL Normal 0.2-1.0 Comprehensi Internal Medicine Work Phone: Comment on above: PATIENT NOT FASTINGP ERFORMED BY: [facility]6370 [facility] [id number] POTASSIUM SERUM ([id number])Order ed By: Windows Application Packager on 06-09-2015 Potassium [Moles/Vol] 5.2 mmol/L Normal 3.5-5.2 [facility] prehensive Internal Medicine Work Phone: Comment on above: PATIENT NOT FASTINGP ERFORMED BY: [facility]6370 [facility] [id number] Information: [id number] CBC W/Diff, AutomatedOrdered By: Windows Application Packager on 06-04-2015 Absolute Neut 2.5 {X10_3/uL} Normal 2.0-7.7 Compreh ensive Internal Medicine Work Phone: Comment on above: [facility] Pivejusedp0939 [facility] [place], [address] Basophils/100 WBC (Bld) 1.3 % Abnormal 0-1 [facility] Work Phone: Comment on above: [facility] [address] [place], [address] Eosinophils/100 WBC (Bld) 2.0 % Normal 0-5 [facility] Work Phone: Comment on above: [facility] Cf[address]nck[address] [place], [address] Erythrocyte distribution width (RBC) [Ratio] 12.9 % Normal 11.6-14.6 [facility] Work Phone: Comment on above: [facility] [address] [place], [address] Hematocrit (Bld) [Volume fraction] 45.6 % Normal 40-54 [facility] Work Phone: Comment on above: [facility] [address] [place], [address] Hemoglobin (Bld) [Mass/Vol] 15.6 g/dL Normal 13.0-16.5 [facility] Work Phone: Comment on above: [facility] [address] [place], [address] IM GRAN % 0.200 % Normal 0.0-0.9 [facility] Work Phone: Comment on above: IG% - Immature Granu locytes (promyelocytes, myelocytes andmetamyelocytes) > 1% indicates that a LEFT SHIFT is Present. [facility] [address] [place], [address] Lymphocytes (Bld) [#/Vol] 1.53 {X10_3/ul} Normal 0.83-4.51 [facility] Work Phone: Comment on above: [facility] [address] [place], [address] Lymphocytes/100 WBC (Bld) 33.3 % Normal 19-41 [facility] Work Phone: Comment on above: [facility] [address] [place], [address] MCH (RBC) [Entitic mass] 30.4 pg Normal 27.0-32.0 [facility] Work Phone: Comment on above: [facility] [address] [place], [address] MCHC (RBC) [Mass/Vol] 34.2 {g/gl} Normal 32-36 [facility] Internal Medicine Work Phone: Comment on above: [facility] [address] [place], [address] MCV (RBC) [Entitic vol] 88.7 fL Normal 80-94 [facility] Work Phone: Comment on above: [facility] [address] [place], [address] Monocytes/100 WBC (Bld) 8.5 % Normal 0-10 [facility] Work Phone: Comment on above: [facility] [address] [place], [address] Neutrophils/100 WBC (Bld) 54.7 % Normal 47-70 [facility] Work Phone: Comment on above: [facility] [address] [place], [address] Platelet mean volume (Bld) [Entitic vol] 10.8 fL Normal 6.2-12.0 Comprehensiv e Internal Medicine Work Phone: Comment on above: [facility] [address] [place], [address] Platelets (Bld) [#/Vol] 170 10*3/uL Normal 150-450 [facility] Work Phone: Comment on above: [facility] [address]ynmv[address] [place], [place], [id number] RBC (Bld) [#/Vol] 5.14 {M/mm3} Normal 4.6-6.2 Compr ensive Internal Medicine Work Phone: Comment on above: [facility] [address] [place], [place], [id number] RDW SD 41.2 fL Normal 35.1-43.9 [facility] Work Phone: Comment on above: [facility] [address] [place], [place], [id number] WBC (Bld) [#/Vol] 4.6 10*3/uL Normal 4.4-11.0 [facility] Work Phone: Comment on above: [facility] [address] [place], [place], [id number] Comprehensive Metabolic Prof ilOrdered By: Windows Application Packager on 06-04-2015 Comprehensive metabolic 2000 panel 1.2 {RATIO} Normal 0.9-2.4 Comprehensi ve Internal Medicine Work Phone: Comment on above: [facility] [address] [place], [place], [id number] Comprehensive metabolic 2000 panel 5.4 mmol/L Abnormal 3.5-5.1 Comprehensi ve Internal Medicine Work Phone: Comment on above: [facility] [address] [place], [place], [id number] [facility] metabolic 2000 panel 61 mL/min Normal Comprehensi ve Internal Medicine Work Phone: Comment on above: GFR Calc [facility] [address] [place], [place], [id number] Comprehensive metabolic 2000 panel 6.3 g/dL Abnormal 6.4-8.2 Comprehensi ve Internal Medicine Work Phone: Comment on above: [facility] [address] [place], [place], [address] Comprehensive metabolic 2000 panel 12.4 {RATIO} Normal 10-20 Comprehensi ve Internal Medicine Work Phone: Comment on above: [facility] [address] [place], [place], [address]125[address] Comprehensive metabolic 2000 panel 85 mg/dL Normal 70-110 Comprehensi ve Internal Medicine Work Phone: Comment on above: [facility] [address] [place], [place], [id number] Comprehensive metabolic 2000 panel 8.4 mg/dL Abnormal 8.5-10.1 Comprehensi ve Internal Medicine Work Phone: Comment on above: [facility] [address] [place], [place], [id number] Comprehensive metabolic 2000 panel 18 mg/dL Normal 7-18 Comprehensi ve Internal Medicine Work Phone: Comment on above: [facility] [address] [place], [place], [id number] Comprehensive metabolic 2000 panel 21 U/L Normal 15-37 Comprehensi ve Internal Medicine Work Phone: Comment on above: [facility] [address] [place], [place], [phone] Comprehensive metabolic 2000 panel 1.45 mg/dL Abnormal 0.70-1.30 Comprehensi ve Internal Medicine Work Phone: Comment on above: The validity of the calculated GFR AND GFRAA in patients over70 years has not been determined. Clinical correlation isessential. [facility] [address] [place], [place], [phone] Comprehensive metabolic 2000 panel 3.4 g/dL Normal 3.4-5.0 Comprehensi ve Internal Medicine Work Phone: Comment on above: [facility] [address] [place], [place], [address] Comprehensive metabolic 2000 panel 2.9 g/dL Normal 2.3-3.5 Comprehensi ve Internal Medicine Work Phone: Comment on above: [facility] [address] [place], [place], [address] Comprehensive metabolic 2000 panel 4 1 Abnormal 5-15 Comprehensi ve Internal Medicine Work Phone: Comment on above: [facility] [address] [place], [place], [address]01 Comprehensive metabolic 2000 panel 28.0 mmol/L Normal 21.0-32.0 Comprehensi ve Internal Medicine Work Phone: Comment on above: [facility] [address] [place], [place], [address]67[address] Comprehensive metabolic 2000 panel 109 mmol/L Abnormal 98-107 Comprehensi ve Internal Medicine Work Phone: Comment on above: [facility] [address] [place], [place], [address]2081 Comprehensive metabolic 2000 panel 51 mL/min Abnormal Comprehensi ve Internal Medicine Work Phone: Comment on above: Non- GFR Calc [facility] [address]sc[address] [place], [place], [phone] Comprehensive metabolic 2000 panel 141 mmol/L Normal 136-145 Comprehensi ve Internal Medicine Work Phone: Comment on above: [facility] [address] [place], [place], [address] Comprehensive metabolic 2000 panel 0.60 mg/dL Normal 0.20-1.00 Comprehensi ve Internal Medicine Work Phone: Comment on above: [facility] [address] [place], [place], [id number] Comprehensive metabolic 2000 panel 32 U/L Normal 12-78 Comprehensi ve Internal Medicine Work Phone: Comment on above: [facility] [address] [place], [address] Comprehensive metabolic 2000 panel 77 U/L Normal 50-136 Comprehensi ve Internal Medicine Work Phone: Comment on above: [facility] [address] [place], [place], [phone] Lipid ProfileOrdered By: Jeremias Lawrence on 06-04-2015 Cholesterol [Mass/Vol] 172 mg/dL Normal [facility] Work Phone: Comment on above: <200 mg/dL Desirable 200-240 mg/dL Borderline >240 mg/dL High Risk [facility] [address] [place], [place], [address] Cholesterol in HDL [Mass/Vol] 48 mg/dL Normal [facility] Work Phone: Comment on above: Reference Range HDL <40 mg/dL Low HDL Cholesterol HDL >or= 60 mg/dL High HDL Cholesterol [facility] [address] [place], [place], [address] Cholesterol in LDL [Mass/Vol] 103 mg/dL Normal 0-130 [facility] Work Phone: Comment on above: [facility] [address] [place], [place], [address] Cholesterol in VLDL [Mass/Vol] 21 mg/dL Normal 5-40 [facility] Work Phone: Comment on above: [facility] [address] [place], [place], [id number] Triglyceride [Mass/Vol] 104 mg/dL Normal [facility] Work Phone: Comment on above: Serum Triglycerides Reference Interval Normal <150 mg/dL Borderline high 150 - 199 mg/dL High 200 - 499 mg/dL Very High > or = 500 mg/dL [facility] [address] [place], [place], [id number] MicroalbOrdered By: Mitzi pickard on 06-04-2015 Creatinine [Mass/Vol] 135.00 mg/dL Normal C omprehensive Internal Medicine Work Phone: Comment on above: [facility] [address] [place], [address] Creatinine [Mass/Vol] Test not performed Normal [facility] Work Phone: Comment on above: [facility] [address] [place], [address] Microalb < 5.0 Normal [facility] Work Phone: Comment on above: [facility] [address] [place], [address] Thyroid Stim Hormone (TSH)Or dered By: Windows Application Packager on 06-04-2015 TSH Qn 0.98 {uIU/mL} Normal 0.358-3.74 Comprehensi ve Internal Medicine Work Phone: Comment on above: [facility] [address] [place], [address] Vitamin D,25 HydroxyOrdered By: Windows Application Packager on 06-04-2015 Vitamin D,25 Hydroxy 30.9 ng/mL Normal Comp rehensive Internal Medicine Work Phone: Comment on above: Vitamin D 25(OH) Sta tus Range Deficiency <20 ng/mL (50nmol/L) Insuffciency 20 - 30 ng/mL (50 - 75 nmol/L) Sufficiency 30 - 100 ng/mL (75 - 250 nmol/L) Toxicity >100 ng/mL (>250 nmol/L) [facility] [address] [place], [address] CBC-Complete Blood Cnt No Di ffOrdered By: Windows Application Packager on 09-29-2014 Erythrocyte distribution width (RBC) [Ratio] 12.8 % Normal 11.6-14.6 [facility] Work Phone: Comment on above: Test performed at:[facility] [address] [place] [address] Hematocrit (Bld) [Volume fraction] 47.2 % Normal 40-54 [facility] Work Phone: Comment on above: Test performed at:[facility] [address] [place] [address] Hemoglobin (Bld) [Mass/Vol] 15.8 g/dL Normal 13.0-16.5 [facility] Work Phone: Comment on above: Test performed at:[facility] [address] [place] [address] MCH (RBC) [Entitic mass] 29.6 pg Normal 27.0-32.0 [facility] Work Phone: Comment on above: Test performed at:[facility] [address] [place] [address] MCHC (RBC) [Mass/Vol] 33.5 {g/gl} Normal 32-36 [facility] Internal Medicine Work Phone: Comment on above: Test performed at:[facility] [address] [place] [address] MCV (RBC) [Entitic vol] 88.6 fL Normal 80-94 [facility] Work Phone: Comment on above: Test performed at:[facility] [address] [place] [address] Platelet mean volume (Bld) [Entitic vol] 10.9 fL Normal 6.2-12.0 Comprehensiv e Internal Medicine Work Phone: Comment on above: Test performed at:[facility] [address] [place] [address] Platelets (Bld) [#/Vol] 185 10*3/uL Normal 150-450 [facility] Work Phone: Comment on above: Test performed at:[facility] [address] [place] [address] RBC (Bld) [#/Vol] 5.33 {M/mm3} Normal 4.6-6.2 [facility] Internal Medicine Work Phone: Comment on above: Test performed at:[facility] [address] [place] [address] WBC (Bld) [#/Vol] 5.0 10*3/uL Normal 4.4-11.0 [facility] Internal Medicine Work Phone: Comment on above: Test performed at:[facility] [address] [place] [address] CBC-Complete Blood Cnt No Diff 41.0 fL Normal 35.1-43.9 [facility] Work Phone: Comment on above: Test performed at:[facility] [address] [place] [address] PTH,INTACTOrdered By: Windows Application Packager on 09-29-2014 PTH,INTACT 94 pg/mL Abnormal 14-72 [facility] Work Phone: Comment on above: Test performed at:[facility] [address] [place] [address] Protein+Creatinine Ratio,Uri neOrdered By: Windows Application Packager on 09-29-2014 Protein (U) [Mass/Vol] 7.6 mg/dL Normal [facility] Work Phone: Comment on above: Test performed at:[facility] [address] [place] [address] Protein+Creatinine Ratio,Urine 80 {mg/g_CRE} Normal 0-200 [facility] Work Phone: Comment on above: Test performed at:[facility] [address] [place] [address] Protein+Creatinine Ratio,Urine 94.8 mg/dL Normal [facility] Work Phone: Comment on above: Test performed at:[facility] [address] [place] [address] Renal ProfileOrdered By: [employer] tem Corporate Risk Analyst on 09-29-2014 Albumin [Mass/Vol] 3.5 g/dL Normal 3.4-5.0 [facility] Internal Medicine Work Phone: Comment on above: Test performed at:[facility] [address] [place] [address] Calcium [Mass/Vol] 8.2 mg/dL Abnormal 8.5-10.1 [facility] Internal Medicine Work Phone: Comment on above: Test performed at:[facility] [address] [place] [address] Chloride [Moles/Vol] 106 mmol/L Normal 98-107 [facility] Work Phone: Comment on above: Test performed at:[facility] [address] [place] [address] CO2 [Moles/Vol] 25.0 mmol/L Normal 21.0-32.0 [facility] Internal Medicine Work Phone: Comment on above: Test performed at:[facility] [address] [place] [address] Creatinine [Mass/Vol] 1.4 mg/dL Abnormal 0.8-1.3 [facility] prehensive Internal Medicine Work Phone: Comment on above: Test performed at:[facility] [address] [place] [address] Glucose [Mass/Vol] 83 mg/dL Normal 70-110 [facility] Internal Medicine Work Phone: Comment on above: Test performed at:[facility] [address] [place] [address] Potassium [Moles/Vol] 5.1 mmol/L Normal 3.5-5.1 [facility] prehensive Internal Medicine Work Phone: Comment on above: Test performed at:[facility] [address] [place] [address] Sodium [Moles/Vol] 138 mmol/L Normal 136-145 Compre [facility] Internal Medicine Work Phone: Comment on above: Test performed at:[facility] [address] [place] [id number] Urea nitrogen [Mass/Vol] 20 mg/dL Abnormal 7-18 [facility] Work Phone: Comment on above: Test performed at:[facility] [address] [place] [address] Renal Profile 1.7 mg/dL Abnormal 2.5-4.9 Comprehensi ve Internal Medicine Work Phone: Comment on above: Test performed at:[facility] [address] [place] [address] Renal Profile 14.3 {RATIO} Normal 10-20 Com[facility]hen [facility] Internal [facility] Work Phone: Comment on above: Test performed at:[facility] [address] [place] [id number] Vitamin D,25 HydroxyOrdered By: Windows Application Packager on 09-29-2014 Vitamin D,25 Hydroxy 25.8 ng/mL Normal Comp rehensive Internal Medicine Work Phone: Comment on above: Vitamin D 25(OH) Sta tus Range Deficiency <20 ng/mL (50nmol/L) Insuffciency 20 - 30 ng/mL (50 - 75 nmol/L) Sufficiency 30 - 100 ng/mL (75 - 250 nmol/L) Toxicity >100 ng/mL (>250 nmol/L) Test performed at:[facility] [address] [place] [id number] FECAL OCCULT- Tubes sent babatunde e ([id number])Ordered By: Shanthi Hong on 07-08-2014 Hemoglobin.gastrointe stinal Ql (Stl) Negative Normal [facility] Work Phone: Hemoglobin.gastrointe stinal Ql (Stl) Negative Normal [facility] Work Phone: CBCDOrdered By: System Manag er on 06-23-2014 Erythrocyte distribution width (RBC) [Ratio] 12.6 % Normal 11.6-14.6 [facility] Work Phone: Hematocrit (Bld) [Volume fraction] 44.4 % Normal 40-54 [facility] Work Phone: Hemoglobin (Bld) [Mass/Vol] 15.2 g/dL Normal 13.0-16.5 [facility] Work Phone: MCH (RBC) [Entitic mass] 30.0 pg Normal 27.0-32.0 [facility] Work Phone: MCHC (RBC) [Mass/Vol] 34.2 {g/gl} Normal 32-[address] josephehensive Internal Medicine Work Phone: MCV (RBC) [Entitic vol] 87.6 fL Normal 80-94 [facility] Work Phone: Platelet mean volume (Bld) [Entitic vol] 10.6 fL Normal 6.2-12.0 Comprehensiv e Internal Medicine Work Phone: Platelets (Bld) [#/Vol] 178 10*3/uL Normal 150-450 [facility] Work Phone: RBC (Bld) [#/Vol] 5.07 {M/mm3} Normal 4.6-6.2 Compr ensive Internal Medicine Work Phone: WBC (Bld) [#/Vol] 5.0 10*3/uL Normal 4.4-11.0 Compre hensive Internal Medicine Work Phone: CBCD 62.3 % Normal 47-70 [facility] Work Phone: CBCD 39.3 fL Normal 35.1-43.9 [facility] Work Phone: CBCD 1.35 {X10_3/ul} Normal 0.83-4.51 Comprehen sive Internal Medicine Work Phone: CBCD 3.1 {X10_3/uL} Normal 2.0-7.7 Comprehens tri Internal Medicine Work Phone: CBCD 0.000 % Normal 0.0-0.9 [facility] Work Phone: Comment on above: IG% - Immature Granu locytes (promyelocytes, myelocytes andmetamyelocytes) > 1% indicates that a LEFT SHIFT is Present. CBCD 0.6 % Normal 0-1 [facility] Work Phone: CBCD 2.2 % Normal 0-5 [facility] Work Phone: CBCD 8.0 % Normal 0-10 [facility] Work Phone: CBCD 26.9 % Normal 19-41 [facility] Work Phone: CMPOrdered By: System Manage r on 06-23-2014 Albumin [Mass/Vol] 3.4 g/dL Normal 3.4-5.0 [facility] Internal Medicine Work Phone: Albumin/Globulin [Mass ratio] 1.2 {RATIO} Normal 0.9-2.4 [facility] Work Phone: ALP [Catalytic activity/Vol] 75 U/L Normal 50-136 [facility] Internal Medicine Work Phone: ALT [Catalytic activity/Vol] 30 U/L Normal 12-78 [facility] Internal Medicine Work Phone: AST [Catalytic activity/Vol] 20 U/L Normal 15-37 [facility] Internal Medicine Work Phone: Bilirubin [Mass/Vol] 0.70 mg/dL Normal 0.00-4.00 [facility] rehensive Internal Medicine Work Phone: Calcium [Mass/Vol] 8.1 mg/dL Abnormal 8.5-10.1 Compre [facility] Internal Medicine Work Phone: Chloride [Moles/Vol] 110 mmol/L Abnormal 98-107 Comp rehensive Internal Medicine Work Phone: CO2 [Moles/Vol] 26.0 mmol/L Normal 21.0-32.0 Comprehe [facility] Internal Medicine Work Phone: Creatinine [Mass/Vol] 1.4 mg/dL Abnormal 0.8-1.3 [facility] prehensive Internal Medicine Work Phone: Globulin mass conc (S) 2.8 g/dL Normal 2.7-4.2 [facility] Work Phone: Glucose [Mass/Vol] 82 mg/dL Normal 70-110 [facility] Internal Medicine Work Phone: Potassium [Moles/Vol] 4.3 mmol/L Normal 3.5-5.1 [facility] Work Phone: Sodium [Moles/Vol] 143 mmol/L Normal 136-145 [facility] Internal Medicine Work Phone: Urea nitrogen [Mass/Vol] 20 mg/dL Abnormal 7-18 [facility] Work Phone: Urea nitrogen/Creatinine [Mass ratio] 14.3 {RATIO} Normal 10-20 [facility] Work Phone: CMP 6.2 g/dL Abnormal 6.4-8.2 [facility] Work Phone: CMP 7 1 Normal 5-15 [facility] Work Phone: CMP 2.8 g/dL Normal 2.7-4.2 [facility] Internal Medicine Work Phone: Metabolic Panel, Basic ([phone])Ordered By: Windows Application Packager on 12-09-2013 Calcium [Mass/Vol] 8.8 mg/dL Normal 8.6-10.2 [facility] Internal Medicine Work Phone: Comment on above: PATIENT NOT FASTINGP ERFORMED BY: AMY [facility] Wlrvsh6228 [facility] [id number] Information: [id number] Chloride [Moles/Vol] 105 mmol/L Normal 97-108 Comp [facility] Work Phone: Comment on above: PATIENT NOT FASTINGP ERFORMED BY: AMY [facility] Hzhchg1284 [facility] [id number] Information: [id number] CO2 [Moles/Vol] 22 mmol/L Normal 19-28 [facility] Internal Medicine Work Phone: Comment on above: PATIENT NOT FASTINGP ERFORMED BY: AMY [facility] Opjies[address] [facility] [id number] Information: [id number] Creatinine [Mass/Vol] 1.50 mg/dL Abnormal 0.76-1.27 [facility] prehensive Internal Medicine Work Phone: Comment on above: PATIENT NOT FASTINGP ERFORMED BY: CB [facility] Qbsdlj2050 [address] [facility] [id number] Information: [id number] GFR/1.73 sq M predicted among blacks CKD-EPI (S/P/Bld) [Vol rate/Area] 53 mL/min/1.73 Abnormal [facility] Work Phone: Comment on above: PATIENT NOT FASTINGP ERFORMED BY: [facility] Faalxv8197 [facility] [id number] Information: [id number] GFR/1.73 sq M predicted among non-blacks CKD-EPI (S/P/Bld) [Vol rate/Area] 46 mL/min/1.73 Abnormal [facility] Work Phone: Comment on above: PATIENT NOT FASTINGP ERFORMED BY: [facility] Oiwybn9027 [facility] [id number] Information: [id number] Glucose [Mass/Vol] 85 mg/dL Normal 65-99 [facility] Internal Medicine Work Phone: Comment on above: PATIENT NOT FASTINGP ERFORMED BY: CB [facility] Mmkpyv6183 [facility] [id number] Information: [id number] Potassium [Moles/Vol] 5.2 mmol/L Normal 3.5-5.2 [facility] Work Phone: Comment on above: PATIENT NOT FASTINGP ERFORMED BY: [facility] Wluqre7273 [facility] [id number] Information: [id number] Sodium [Moles/Vol] 140 mmol/L Normal 134-144 Compre [facility] Internal Medicine Work Phone: Comment on above: PATIENT NOT FASTINGP ERFORMED BY: AMY [facility]Rank[facility] Lofehv1393 [facility] [id number] Information: [id number] Urea nitrogen [Mass/Vol] 21 mg/dL Normal 8-27 [facility] Work Phone: Comment on above: PATIENT NOT FASTINGP ERFORMED BY: AMY [place] [id number] [facility] [id number] Information: [id number] Urea nitrogen/Creatinine [Mass ratio] 14 mg/mg Normal 10-22 [facility] Work Phone: Comment on above: PATIENT NOT FASTINGP ERFORMED BY: AMY [place]ackBr[place]any [place] [id number] [facility] [id number] Information: [id number] ANAOrdered By: System Manage r on 12-03-2013 Nuclear Ab IF (S) [Titer] Negative Normal [facility] Work Phone: CBCDOrdered By: System Manag er on 12-03-2013 Erythrocyte distribution width (RBC) [Ratio] 13.1 % Normal 11.6-14.6 [facility] Work Phone: Hematocrit (Bld) [Volume fraction] 46.1 % Normal 40-54 [facility] Work Phone: Hemoglobin (Bld) [Mass/Vol] 15.8 g/dL Normal 13.0-16.5 [facility] Work Phone: MCH (RBC) [Entitic mass] 30.5 pg Normal 27.0-32.0 [facility] Work Phone: MCHC (RBC) [Mass/Vol] 34.3 {g/gl} Normal 32-36 [facility] Internal [facility] Work Phone: MCV (RBC) [Entitic vol] 89.0 fL Normal 80-94 [facility] Work Phone: Platelet mean volume (Bld) [Entitic vol] 11.2 fL Normal 6.2-12.0 Comprehensiv e Internal Medicine Work Phone: Platelets (Bld) [#/Vol] 167 10*3/uL Normal 150-450 [facility] Internal Medicine Work Phone: RBC (Bld) [#/Vol] 5.18 {M/mm3} Normal 4.6-6.2 [facility] Internal Medicine Work Phone: WBC (Bld) [#/Vol] 5.0 10*3/uL Normal 4.4-11.0 [facility] Internal Medicine Work Phone: CBCD 2.6 {X10_3/uL} Normal 2.0-7.7 [facility] Internal Medicine Work Phone: CBCD 1.0 % Normal 0-1 [facility] Work Phone: CBCD 0.200 % Normal 0.0-0.9 [facility] Internal Medicine Work Phone: Comment on above: IG% - Immature Granu locytes (promyelocytes, myelocytes andmetamyelocytes) > 1% indicates that a LEFT SHIFT is Present. CBCD 2.4 % Normal 0-5 [facility] Work Phone: CBCD 33.5 % Normal 19-41 [facility] Work Phone: CBCD 42.3 fL Normal 35.1-43.9 [facility] Work Phone: CBCD 52.3 % Normal 47-70 [facility] Work Phone: CBCD 10.6 % Abnormal 0-10 [facility] Work Phone: CMPOrdered By: System Manage r on 12-03-2013 Albumin [Mass/Vol] 3.7 g/dL Normal 3.4-5.0 [facility] Internal Medicine Work Phone: Albumin/Globulin [Mass ratio] 1.5 {RATIO} Normal 0.9-2.4 [facility] Internal Medicine Work Phone: ALP [Catalytic activity/Vol] 68 U/L Normal 45-117 [facility] Internal Medicine Work Phone: ALT [Catalytic activity/Vol] 47 U/L Normal 12-78 [facility] Work Phone: AST [Catalytic activity/Vol] 22 U/L Normal 0-40 [facility] Work Phone: Comment on above: PATIENT WAS FASTINGP ERFORMED BY: LabCoLourdes Medical Center of Burlington CountyHiyeku9236 [facility] [id number] Information: [id number] Bilirubin [Mass/Vol] 0.80 mg/dL Normal 0.00-1.00 Comp rehensive Internal Medicine Work Phone: Calcium [Mass/Vol] 8.5 mg/dL Normal 8.5-10.1 [facility] Internal Medicine Work Phone: Chloride [Moles/Vol] 108 mmol/L Abnormal 98-107 Comp rehensive Internal Medicine Work Phone: CO2 [Moles/Vol] 28.0 mmol/L Normal 21.0-32.0 Comprehe [facility] Internal Medicine Work Phone: Creatinine [Mass/Vol] 1.4 mg/dL Abnormal 0.8-1.3 [facility] prehensive Internal Medicine Work Phone: Globulin mass conc (S) 2.5 g/dL Abnormal 2.7-4.2 [facility] Internal Medicine Work Phone: Glucose [Mass/Vol] 87 mg/dL Normal 70-110 [facility] Internal Medicine Work Phone: Potassium [Moles/Vol] 5.3 mmol/L Abnormal 3.5-5.1 [facility] prehensive Internal Medicine Work Phone: Sodium [Moles/Vol] 139 mmol/L Normal 136-145 [facility] Internal Medicine Work Phone: Urea nitrogen [Mass/Vol] 17 mg/dL Normal 7-18 [facility] Internal Medicine Work Phone: Urea nitrogen/Creatinine [Mass ratio] 12.1 {RATIO} Normal 10-20 [facility] Work Phone: CMP 6.2 g/dL Abnormal 6.4-8.2 [facility] Work Phone: CMP 3 1 Abnormal 5-15 [facility] Work Phone: CMP 2.5 g/dL Abnormal 2.7-4.2 [facility] Work Phone: CRECLROrdered By: System Man ager on 12-03-2013 CRECLR 24.0 {HOURS} Normal Comprehensiv e Internal Medicine Work Phone: CRECLR 2150 mL Normal [facility] Work Phone: CRECLR 91 ml/min Abnormal 100-200 [facility] Work Phone: CRECLR 85.4 mg/dL Normal [facility] Work Phone: HEPATIC FUNCTION PANEL ([phone])Ordered By: Windows Application Packager on 12-03-2013 Albumin [Mass/Vol] 4.1 g/dL Normal 3.5-4.8 [facility]pre [facility] Internal [facility] Work Phone: Comment on above: PATIENT WAS FASTINGP ERFORMED BY: [facility] Novafn[address]iel RoadDublin [place] [id number] Information: [id number] ALP [Catalytic activity/Vol] 65 [iU]/L Normal 39-117 [facility] Work Phone: Comment on above: PATIENT WAS FASTINGP ERFORMED BY: CB [facility] Cgflff6[address] RoadDublin [place] [id number] Information: [id number] ALP [Catalytic activity/Vol] 65 U/L Normal 39-117 [facility] Work Phone: Comment on above: PATIENT WAS FASTINGP ERFORMED BY: CB [facility] Wquitk13[address]iel RoadDublin [place] [id number] Information: [id number] ALT [Catalytic activity/Vol] 36 [iU]/L Normal 0-44 [facility] Work Phone: Comment on above: PATIENT WAS FASTINGP ERFORMED BY: CB [facility] Sexwiy[address] RoadDublin [place] [id number] Information: [id number] ALT [Catalytic activity/Vol] 36 U/L Normal 0-44 [facility] Work Phone: Comment on above: PATIENT WAS FASTINGP ERFORMED BY: AMY Perezlin6370 [facility] [id number] Information: [id number] AST [Catalytic activity/Vol] 22 [iU]/L Normal 0-40 [facility] Work Phone: Comment on above: PATIENT WAS FASTINGP ERFORMED BY: [address] [id number] Information: [id number] Bilirubin [Mass/Vol] 0.7 mg/dL Normal 0.0-1.2 [facility] Internal Medicine Work Phone: Comment on above: PATIENT WAS FASTINGP ERFORMED BY: [address] [id number] Information: [id number] Bilirubin.direct [Mass/Vol] 0.20 mg/dL Normal 0.00-0.40 [facility] Work Phone: Comment on above: PATIENT WAS FASTINGP ERFORMED BY: [facility]antaCorewell [facility]6370 [facility] [id number] Information: [id number] Protein [Mass/Vol] 6.1 g/dL Normal 6.0-8.5 [facility] Internal Medicine Work Phone: Comment on above: PATIENT WAS FASTINGP ERFORMED BY: [facility]6370 [facility] [id number] Information: [id number] MGOrdered By: Windows Application Packager on 12-03-2013 Magnesium mass conc 1.9 mg/dL Normal 1.8-2.4 [facility] Work Phone: MG 1.9 mg/dL Normal 1.8-2.4 [facility] Work Phone: NAUOrdered By: System Manage r on 12-03-2013 SANJEEV 60 mmol/L Normal [facility] Work Phone: PHOSOrdered By: System Manag er on 12-03-2013 PHOS 2.4 mg/dL Abnormal 2.5-4.9 [facility] Work Phone: PROELOrdered By: System Aracelis yudith on 12-03-2013 Protein mass conc Normal Compreh ensive Internal Medicine Work Phone: Comment on above: Not Observed Protein mass conc 2.3 g/dL Normal 2.0-4.5 Compreh ensive Internal Medicine Work Phone: Protein mass conc Comment Normal Compreh ensive Internal Medicine Work Phone: Comment on above: Protein electrophore sis scan will follow via computer,mail, or regulator pin inserter delivery. The SPE pattern appe ars essentially unremarkable. Evidenceof monoclonal protein is not apparent. Protein electrophore sis scan will follow via computer,mail, or regulator pin inserter delivery.Performed at: [address] [id number] Director: Anthony Shannon MD, Phone: [phone] Protein mass conc 0.2 g/dL Normal 0.1-0.4 Compreh ensive Internal Medicine Work Phone: Protein mass conc 6.0 g/dL Normal 6.0-8.5 Compreh ensive Internal Medicine Work Phone: Protein mass conc 3.7 g/dL Normal 3.2-5.6 Compreh ensive Internal Medicine Work Phone: Protein mass conc 0.5 g/dL Normal 0.4-1.2 Compreh ensive Internal Medicine Work Phone: Protein mass conc 0.9 g/dL Normal 0.6-1.3 Compreh ensive Internal Medicine Work Phone: Protein mass conc 0.7 g/dL Normal 0.5-1.6 Compreh ensive Internal Medicine Work Phone: PROEL 1.6 1 Normal 0.7-2.0 [facility] Work Phone: PROEL 6.0 g/dL Normal 6.0-8.5 [facility] Work Phone: PROEL 3.7 g/dL Normal 3.2-5.6 [facility] Work Phone: PROEL 0.5 g/dL Normal 0.4-1.2 [facility] Work Phone: PROEL 0.2 g/dL Normal 0.1-0.4 [facility] Work Phone: PROEL 0.9 g/dL Normal 0.6-1.3 [facility] Work Phone: PROEL 0.7 g/dL Normal 0.5-1.6 [facility] Work Phone: PROEL 2.3 g/dL Normal 2.0-4.5 [facility] Work Phone: PROELUOrdered By: System Man ager on 12-03-2013 Protein mass conc 2.1 mg/dL Normal 0.0-15.0 Compreh ensive Internal Medicine Work Phone: PROELU 16.6 % Normal [facility] Work Phone: PROELU 13.8 % Normal [facility] Work Phone: PROELU 6.3 % Normal [facility] Work Phone: PROELU 32.6 % Normal [facility] Work Phone: PROELU 30.8 % Normal [facility] Work Phone: PROELU 2.1 mg/dL Normal 0.0-15.0 [facility] Work Phone: PROELU Normal [facility] Work Phone: Comment on above: Not Observed PROELU Comment Normal [facility] Work Phone: Comment on above: Protein electrophore sis scan will follow via computer,mail, or regulator pin inserter delivery.Performed at: [address] [id number] Director: Anthony Shannon MD, Phone: [phone] The SPE pattern appe ars essentially unremarkable. Evidenceof monoclonal protein is not apparent. Protein electrophore sis scan will follow via computer,mail, or regulator pin inserter delivery. PSA (PROSTATE SPECIFIC ANTIG EN) (V76.44)Ordered By: Windows Application Packager on 12-03-2013 Prostate specific Ag [Mass/Vol] ng/mL Normal 0.0-4.0 [facility] Work Phone: Comment on above: Carmen ECLIA methodol ogy. .According to the [place] [employer], Serum PSA shoulddecrease and remain at undetectable levels after radicalprostatectomy. The AUA defines biochemical recurrence as an initialPSA value 0.2 ng/mL or greater followed by a subsequent confirmatoryPSA value 0.2 ng/mL or greater.Values obtained with different assay methods or kits cannot be usedinterchangeably. Results cannot be interpreted as absolute evidenceof the presence or absence of malignant disease. PATIENT WAS FASTINGP ERFORMED BY: [employer] [place] [id number] Prostate specific Ag [Mass/Vol] ng/mL Normal 0.0-4.0 [facility] Work Phone: Comment on above: [employer] ECLIA methodol ogy. .According to the [place] [employer], Serum PSA shoulddecrease and remain at undetectable levels after radicalprostatectomy. The AUA defines biochemical recurrence as an initialPSA value 0.2 ng/mL or greater followed by a subsequent confirmatoryPSA value 0.2 ng/mL or greater.Values obtained with different assay methods or kits cannot be usedinterchangeably. Results cannot be interpreted as absolute evidenceof the presence or absence of malignant disease. PATIENT WAS FASTINGP ERFORMED BY: [employer] [id number] PTHINOrdered By: System Aracelis yudith on 12-03-2013 PTHIN 51 pg/mL Normal 14-72 [facility] Work Phone: SEDOrdered By: System MENABANQER r on 12-03-2013 SED 2 mm/h Normal 0-20 [facility] Work Phone: TESTOSTERONE TOTAL ([id number])Or dered By: Windows Application Packager on 12-03-2013 Testosterone [Mass/Vol] 399 ng/dL Normal 348-1197 [facility] Work Phone: Comment on above: PATIENT WAS FASTINGP ERFORMED BY: CB [facility] Hobrdx48[address] RoadDublin [place] [id number] Testosterone [Mass/Vol] TESTM Normal [facility] Work Phone: Comment on above: Adult male reference interval is based on a population of lean malesup to 40 years old. PATIENT WAS FASTINGP ERFORMED BY: CB [facility] Xyafic[address] RoadDublin [place] [id number] TESTOSTERONE TOTAL ([id number]) TESTM Normal [facility] Work Phone: Comment on above: Adult male reference interval is based on a population of lean malesup to 40 years old. PATIENT WAS FASTINGP ERFORMED BY: CB [facility] Exiubq[address] RoadDublin [place] [id number] TSH ([id number])Ordered By: iZotopee m Corporate Risk Analyst on 12-03-2013 TSH Qn 1.850 {uIU/mL} Normal 0.450-4.50 0 [facility] Work Phone: Comment on above: PATIENT WAS FASTINGP ERFORMED BY: CB [facility] Ahmorb[address] [facility] Ontonagon HospitalDublin [place] [id number] UAOrdered By: Windows Application Packager on 12-03-2013 UA Negative Normal [facility] Work Phone: Comment on above: How was Urine Obtain ed? CLEAN CATCH UA Yellow Normal [facility] Work Phone: Comment on above: How was Urine Obtain ed? CLEAN CATCH UA Clear Normal [facility] Work Phone: Comment on above: How was Urine Obtain ed? CLEAN CATCH UA Normal Normal [facility] Work Phone: Comment on above: How was Urine Obtain ed? CLEAN CATCH UA 1.005 1 Normal 1.002-1.03 0 [facility] Work Phone: Comment on above: How was Urine Obtain ed? CLEAN CATCH UA 7.0 1 Normal 5.0 - 8.0 [facility] Work Phone: Comment on above: How was Urine Obtain ed? CLEAN CATCH VITDOrdered By: System Manag er on 12-03-2013 VITD 36.7 mg/mL Normal [facility] Work Phone: Comment on above: Vitamin D 25(OH) Sta tus RangeDeficiency <20 ng/mL (50nmol/L)Insuffciency 20 - 30 ng/mL (50 - 75 nmol/L)Sufficiency 30 - 100 ng/mL (75 - 250 nmol/L)Toxicity >100 ng/mL (>250 nmol/L) MYOCARD PERF STRESS/REST MUL TOrdered By: Windows Application Packager on 08-23-2011 MYOCARD PERF STRESS/REST MULT See Note Normal [facility] Work Phone: Comment on above: MYOCARDIAL PERFUSION SCAN TECHNIQUEThe patient was injected with 14.3 mCi of Tc99m Cardiolite andsubsequently rest SPECT Cardiolite nuclear imaging was obtained in thehorizontal long, vertical long, and short axes views. The patientexercised on a [place] protocol for 10 minutes achieving a peak heart rateof 142 beats per minute (94% predicted maximum heart rate) with a peakblood pressure of 164/82 mmHg and a peak MET capacity of approximately 11METs. The patient was injected with 43.6 mCi of Tc99m Cardiolite andsubsequently stress SPECT Cardiolite nuclear imaging was obtained in thehorizontal long, vertical long, and short axes views. A gated Cardiolitestudy at peak stress was obtained. INTERPRETATIONRest and stress SPECT Cardiolite nuclear imaging demonstrate an area ofdecreased tracer uptake in portions of the basal inferoseptal/inferiorsegments without significant change. At rest there was also notation ofan area of diminished tracer uptake in portions of the mid inferiorsegment. Following stress, there is notation of diminished tracer uptakeextending from the basal towards mid inferior segments but with respectto the inferior segments are somewhat less prominent in certain viewsthen they are at rest. There appears to be similar type findings on theresting and stress polar map images. There is end systolic thickeningand brightening. The gated Cardiolite study demonstrates myocardialthickening and inward wall motion. The reported LVEF is 56%. Theaforementioned changes appear suggestive of findings compatible withshifting soft tissue attenuation/artifact and do not appear todemonstrate findings considered diagnostic for stress induced myocardialischemia or previous myocardial injury/infarction. IMPRESSION1. Rest and stress SPECT Cardiolite nuclear imaging demonstratemyocardial perfusion changes appearing compatible with the effects ofshifting soft tissue attenuation and artifact with no myocardialperfusion changes considered diagnostic for stress induced myocardialischemia or previous myocardial injury/infarction.2. The gated Cardiolite study reports an LVEF of 56%. Dictated on 08/23/11 1340 by Collins Mccloud MDTranscribed on 08/23/11 1423 by Rosaura BEAUCHAMP by Collins Mccloud MD on 08/24/11 0854 Sign by: Collins Mccloud MD CBCDOrdered By: System Manag er on 08-17-2011 Basophils/100 WBC (Bld) 0.4 % Normal 0-1 [facility] Work Phone: Eosinophils/100 WBC (Bld) 2.3 % Normal 0-5 [facility] Work Phone: Erythrocyte distribution width (RBC) [Ratio] 13.2 % Normal 11.6-14.6 [facility] Work Phone: Hematocrit (Bld) [Volume fraction] 47.0 % Normal 40-54 [facility] Work Phone: Hemoglobin (Bld) [Mass/Vol] 16.1 g/dL Normal 14.0-18.0 [facility] Work Phone: Lymphocytes/100 WBC (Bld) 25.6 % Normal 19-41 [facility] Work Phone: MCH (RBC) [Entitic mass] 29.7 pg Normal 27.0-32.0 [facility] Work Phone: MCHC (RBC) [Mass/Vol] 34.2 g/dL Normal 32-36 [facility] Work Phone: MCV (RBC) [Entitic vol] 86.9 fL Normal 80-94 [facility] Work Phone: Monocytes/100 WBC (Bld) 7.2 % Normal 0-10 [facility] Work Phone: Neutrophils (Bld) [#/Vol] 4.1 3/uL Normal 2.0-7.7 [facility] Work Phone: Neutrophils/100 WBC (Bld) 64.5 % Normal 47-70 [facility] Work Phone: Platelet mean volume (Bld) [Entitic vol] 9.1 fL Normal 6.5-12.0 [facility] Work Phone: Platelets (Bld) [#/Vol] 195 10*3/uL Normal 150-450 [facility] Work Phone: RBC (Bld) [#/Vol] 5.41 {M/mm3} Normal 4.6-6.2 Compr ehens[facility] Work Phone: WBC (Bld) [#/Vol] 6.4 10*3/uL Normal 4.4-11.0 [facility]pre hens[facility] Work Phone: CHEST, PA AND LATERALOrdered By: Windows Application Packager on 08-17-2011 CHEST, PA AND LATERAL See Note Normal [facility] Work Phone: Comment on above: PROCEDURE: X-RAY ROSETTE REASON FOR EXAM: Male, 71 years old. Chest pain. TECHNIQUE: PA and lateral views of the chest. COMPARISON: Comparison is made with prior examination dated July. FINDINGS: The lungs are expanded. There is no demonstrated parenchymalabnormality.There is evidence of calcified old granulomatous disease. There is nodemonstrated pleural abnormality. Normal heart and pericardium. Normal mediastinum and violet. Normal visualized pulmonary arteries.Thereis atherosclerotic tortuosity of the aortic arch and descending thoracicaorta. There are diffuse degenerative changes of the visualized thoracic spine.Normal visualized ribs, clavicles, and shoulders. There is no demonstrated abnormality of the visualized soft tissuestructures of the upper abdomen. IMPRESSION:No acute abnormality is seen. To consult with a radiologist regarding this report, please call our [id number] line @ Dictated on 08/17/11 1221 by Paul MINOR,GabrieleTranscribed on 08/18/11 1248 by ITS IMPORTSign by Erwin Miller MD on 08/18/11 1249 Sign by: Erwin Miller MD CKMBOrdered By: System Manag er on 08-17-2011 CK.MB [Mass/Vol] 54 U/L Normal 39-308 [facility] Work Phone: Comment on above: RESULTS FAXED 114NANCY. MIKEY CK.MB [Mass/Vol] 1.3 ng/mL Normal 0.0-5.0 [facility] Work Phone: Comment on above: CK-MB and RI Interpr etation MB Relative Index Non-AMI 5 5 > 4 RESULTS FAXED NANCY. ASHER COMP METABOLICOrdered By: Sy stem Corporate Risk Analyst on 08-17-2011 Albumin [Mass/Vol] 3.6 g/dL Normal 3.4-5.0 [facility]pre [facility] Work Phone: Comment on above: RESULTS FAXED 114NANCY. MIKEY Albumin/Globulin [Mass ratio] 1.0 {RATIO} Normal 0.9-2.4 [facility] Work Phone: Comment on above: RESULTS FAXED 114NANCY. MIKEY ALP [Catalytic activity/Vol] 61 U/L Normal 50-136 [facility] Work Phone: Comment on above: RESULTS FAXED 114NANCY. MIKEY ALT [Catalytic activity/Vol] 28 U/L Normal 12-78 [facility] Work Phone: Comment on above: RESULTS FAXED 114NANCY. MIKEY Anion gap [Moles/Vol] 7 mmol/L Normal 5-15 [facility] prehensive Internal Medicine Work Phone: Comment on above: RESULTS FAXED 1141 [address] [place]. AST [Catalytic activity/Vol] 15 U/L Normal 15-37 [facility] Work Phone: Comment on above: RESULTS FAXED 114Jennfier [place]. Bilirubin [Mass/Vol] 0.50 mg/dL Normal 0.00-1.00 Comp rehens[facility] Work Phone: Comment on above: RESULTS FAXED 114Jennifer [place]. Calcium [Mass/Vol] 8.6 mg/dL Normal 8.5-10.1 Compre hens[facility] Work Phone: Comment on above: RESULTS FAXED 114Jennifer [place]. Chloride [Moles/Vol] 105 mmol/L Normal 98-107 [facility] re[facility] Work Phone: Comment on above: RESULTS FAXED 114Jennifer [place]. CO2 [Moles/Vol] 29.0 mmol/L Normal 21.0-32.0 Compre[facility] Work Phone: Comment on above: RESULTS FAXED 114Jennifer [place]. Creatinine [Mass/Vol] 1.4 mg/dL Abnormal 0.8-1.3 [facility] Work Phone: Comment on above: RESULTS FAXED 114[address]ON JENSEN. GFR/1.73 sq M predicted among blacks MDRD (S/P/Bld) [Vol rate/Area] 64 mL/min/{1.73_m2} Normal [facility] Work Phone: Comment on above: RESULTS FAXED 114[place] JENSEN. GFR/1.73 sq M.predicted MDRD (S/P/Bld) [Vol rate/Area] 53 mL/min/{1.73_m2} Abnormal [facility] Work Phone: Comment on above: RESULTS FAXED 1141 [address] [place]. GFR/1.73 sq M.predicted MDRD vol rate/area 53 mL/min/{1.73_m2} Abnormal [facility] Work Phone: Comment on above: RESULTS FAXED 1141 [address] [place]. Globulin (S) [Mass/Vol] 3.5 g/dL Normal 2.7-4.2 [facility] Work Phone: Comment on above: RESULTS FAXED 1141 [address] [place]. Glucose [Mass/Vol] 89 mg/dL Normal 70-110 [facility] Work Phone: Comment on above: RESULTS FAXED 1141 [address] [place]. Potassium [Moles/Vol] 5.0 mmol/L Normal 3.5-5.1 [facility] Work Phone: Comment on above: RESULTS FAXED 1141 [address] [place]. Protein [Mass/Vol] 7.1 g/dL Normal 6.4-8.2 [facility] Work Phone: Comment on above: RESULTS FAXED 1141 [address] [place]. Sodium [Moles/Vol] 141 mmol/L Normal 136-145 [facility] Work Phone: Comment on above: RESULTS FAXED 1141 [address] [place]. Urea nitrogen [Mass/Vol] 19 mg/dL Abnormal 7-18 [facility] Work Phone: Comment on above: RESULTS FAXED 114Jennifer [place]. Urea nitrogen/Creatinine [Mass ratio] 13.6 {RATIO} Normal 10-20 [facility] Work Phone: Comment on above: RESULTS FAXED 114Jennifer [place]. ESROrdered By: System Manage r on 08-17-2011 ESR (Bld) [Velocity] 3 mm/h Normal 0-20 Comp rehens[facility] Work Phone: TROPONIN-IOrdered By: Windows Application Packager on 08-17-2011 Troponin I.cardiac [Mass/Vol] ng/mL Normal [facility] Work Phone: Comment on above: TROPONIN-I EXPECTED VALUES <0.05 NEGATIVE 0.06 - 0.59 AT RISK OF OK > OR = 0.60 SUGGEST OK RESULTS FAXED 1141 [address]. BRAIN/HEAD W/WO CONTRASTOrde red By: Windows Application Packager on 04-04-2011 BRAIN/HEAD W/WO CONTRAST See Note Normal [facility] Work Phone: Comment on above: PROCEDURE: CT BRAIN WITH AND WITHOUT CONTRAST REASON FOR EXAM: Male, 71 years old. Headaches. Vertigo. TECHNIQUE: Transaxial CT imaging of the brain was performed pre andpostcontrast administration. The examination was performed with intravenousadministration of 50ML ml of Isovue 370 contrast material. COMPARISON: None. FINDINGS:Normal size of the ventricles and extra-axial spaces for the patient'marko.Normal white matter tracts of the supratentorial brain. Normal basal ganglia. Normal bilateral thalami. Normal arterial and venous enhancement. There is no enhancing intra-axialor extra-axial abnormality. There is no demonstrated extra-axial hemorrhage. There is nodemonstratedintraparenchymal hemorrhage. Normal brainstem. Normal cerebellum. Normal basal cisterns. Normal soft tissue structures. Normal calvarium. Normal sella turcica. Normal skull base. Normal visualized orbital structures. There is a mucous retention cystinthe left maxillary sinus. . IMPRESSION:Normal unenhanced and enhanced CT scan of the brain. Dictated on 04/04/11 1032 by Raimundo MARADIAGA MDanscribed on 04/04/11 1220 by ITS IMPORTSign by JORDYN MARADIAGA MD on 04/04/11 1221 Sign by: JORDYN MARADIAGA MD BMPOrdered By: System Manage r on 04-03-2011 Anion gap [Moles/Vol] 7 mmol/L Normal 5-15 [facility] prehensive Internal Medicine Work Phone: Calcium [Mass/Vol] 8.7 mg/dL Normal 8.5-10.1 [facility] Work Phone: Chloride [Moles/Vol] 104 mmol/L Normal 98-107 [facility] Work [facility]: CO2 [Moles/Vol] 27.0 mmol/L Normal 21.0-32.0 [facility] Work Phone: Creatinine [Mass/Vol] 1.6 mg/dL Abnormal 0.8-1.3 [facility] prehensive Internal Medicine Work Phone: GFR/1.73 sq M predicted among blacks MDRD (S/P/Bld) [Vol rate/Area] 56 mL/min/{1.73_m2} Abnormal [facility] Work Phone: GFR/1.73 sq M.predicted MDRD (S/P/Bld) [Vol rate/Area] 46 mL/min/{1.73_m2} Abnormal [facility] Work Phone: GFR/1.73 sq M.predicted MDRD vol rate/area 46 mL/min/{1.73_m2} Abnormal [facility] Work Phone: Glucose [Mass/Vol] 103 mg/dL Normal 70-110 [facility] Work Phone: Potassium [Moles/Vol] 4.9 mmol/L Normal 3.5-5.1 [facility]: Sodium [Moles/Vol] 138 mmol/L Normal 136-145 [facility] Work Phone: Urea nitrogen [Mass/Vol] 21 mg/dL Abnormal 7-18 [facility] Work Phone: Urea nitrogen/Creatinine [Mass ratio] 13.1 {RATIO} Normal 10-20 [facility] Work Phone: PSA, DIAGNOSTICOrdered By: Maykel hdezte Corporate Risk Analyst on 11-16-2006 Prostate specific Ag [Mass/Vol] 1.8 ng/mL Normal 0.0-4.0 [facility] Work Phone: Comment on above: This test was perfor med using the TPSA method for theMeaningo chemistry system.Values obtained with different assay methods cannot be usedinterchangably.When changing PSA assays in the course of monitoring apatient, additionaly sequential testing should be carriedout to confirm baseline values. BMPOrdered By: System Manage r on 08-22-2006 Anion gap [Moles/Vol] 8 mmol/L Normal 5-15 [facility] prehensive Internal Medicine Work Phone: Calcium [Mass/Vol] 9.0 mg/dL Normal 8.5-10.1 [facility] Work Phone: Chloride [Moles/Vol] 104 mmol/L Normal 98-107 [facility] Work Phone: CO2 [Moles/Vol] 27.0 mmol/L Normal 22.0-29.0 Comprehe [facility] Work Phone: Creatinine [Mass/Vol] 1.5 mg/dL Abnormal 0.8-1.3 [facility] prehensive Internal Medicine Work Phone: Glucose [Mass/Vol] 104 mg/dL Normal 70-110 [facility] Work Phone: Potassium [Moles/Vol] 4.2 mmol/L Normal 3.5-5.1 [facility] prehensive Internal Medicine Work Phone: Sodium [Moles/Vol] 139 mmol/L Normal 136-145 [facility] Work Phone: Urea nitrogen [Mass/Vol] 22 mg/dL Abnormal 7-18 [facility] Work Phone: Urea nitrogen/Creatinine [Mass ratio] 14.7 {RATIO} Normal 10-20 [facility] Work Phone: CBCDOrdered By: System Manag er on 08-16-2006 Basophils/100 WBC (Bld) 0.6 % Normal 0-1 [facility] Work Phone: Eosinophils/100 WBC (Bld) 0.5 % Normal 0-5 [facility] Work Phone: Erythrocyte distribution width (RBC) [Ratio] 14.7 % Abnormal 11.6-14.6 [facility] Work Phone: Hematocrit (Bld) [Volume fraction] 42.6 % Normal 40-54 [facility] Work Phone: Hemoglobin (Bld) [Mass/Vol] 14.4 g/dL Normal 14.0-18.0 [facility] Work Phone: Lymphocytes/100 WBC (Bld) 21.7 % Normal 19-41 [facility] Work Phone: MCH (RBC) [Entitic mass] 27.0 pg Normal 27.0-32.0 [facility] Work Phone: MCHC (RBC) [Mass/Vol] 33.7 g/dL Normal 32-36 Com [facility] Work Phone: MCV (RBC) [Entitic vol] 80.1 fL Normal 80-94 [facility] Work Phone: Monocytes/100 WBC (Bld) 8.1 % Normal 0-10 [facility] Work Phone: Neutrophils/100 WBC (Bld) 69.1 % Normal 47-70 [facility] Work Phone: Platelet mean volume (Bld) [Entitic vol] 8.4 fL Normal 6.5-12.0 [facility] Work Phone: Platelets (Bld) [#/Vol] 239 10*3/uL Normal 150-450 [facility] Work Phone: RBC (Bld) [#/Vol] 5.32 {M/mm3} Normal 4.6-6.2 Compr ehensive [facility] Work Phone: WBC (Bld) [#/Vol] 6.6 10*3/uL Normal 4.4-11.0 Compre hens[facility] Work Phone: PRO TIMEOrdered By: Mitzi pickard on 08-16-2006 PT Coag (PPP) [Time] 12.6 s Normal 11.7-13.3 Comp rehensive [facility] Work Phone: PT Coag (PPP) [Time] 1.0 s Normal Comp rehens[facility] Work Phone: PTTOrdered By: System Manage r on 08-16-2006 aPTT Coag (Bld) [Time] 28.9 s Normal 24.6-36.6 [facility] Work Phone: Vital Signs Date Time Vital Sign Value Performing Clinician Facility 01-20-2025 06:59-0400 Body height 180.[address] Jazlyn Zayas DO Work Phone: [facility] 01-20-2025 06:59-0400 Body mass index (BMI) [Ratio] 32.5 kg/m2 Dr. Jazlyn Zayas DO Work Phone: [facility] 01-20-2025 06:59-0400 Body weight 105.[address] Jazlyn Zayas DO Work Phone: [facility] 01-20-2025 06:59-0400 Diastolic blood pressure 87 mm[Hg] Dr. Jazlyn Zayas DO Work Phone: [facility] 01-20-2025 06:59-0400 Heart rate 76 /min Dr. Jazlyn Zayas DO Work Phone: [facility] 01-20-2025 06:59-0400 Respiratory rate 18 /min Dr. Jazlyn Zayas DO Work Phone: [facility] 01-20-2025 06:59-0400 SaO2% (BldA) [Mass fraction] 94 % Dr. Jazlyn Zayas DO Work Phone: [facility] 01-20-2025 06:59-0400 Systolic blood pressure 136 mm[Hg] Dr. Jazlyn Zayas DO Work Phone: [facility] 12-29-2024 08:53-0400 Body temperature 98.9 [degF] Dr. Jazlyn Zayas DO Work Phone: [facility] 12-29-2024 08:53-0400 Diastolic blood pressure 74 mm[Hg] Dr. Jazlyn Zayas DO Work Phone: [facility] 12-29-2024 08:53-0400 Heart rate 68 /min Dr. Jazlyn Zayas DO Work Phone: [facility] 12-29-2024 08:53-0400 Respiratory rate 16 /min Dr. Jazlyn Zayas DO Work Phone: [facility] 12-29-2024 08:53-0400 SaO2% (BldA) [Mass fraction] 100 % Dr. Jazlyn Zayas DO Work Phone: [facility] 12-29-2024 08:53-0400 Systolic blood pressure 154 mm[Hg] Dr. Jazlyn Zayas DO Work Phone: [facility] 09-25-2024 11:57-0500 Body temperature 98.2 [degF] Dr. Jazlyn Zayas DO Work Phone: [facility] 09-25-2024 11:57-0500 Diastolic blood pressure 80 mm[Hg] Dr. Jazlyn Zayas DO Work Phone: [facility] 09-25-2024 11:57-0500 Heart rate 69 /min Dr. Jazlyn Zayas DO Work Phone: [facility] 09-25-2024 11:57-0500 Respiratory rate 16 /min Dr. Jazlyn Zayas DO Work Phone: [facility] 09-25-2024 11:57-0500 SaO2% (BldA) [Mass fraction] 98 % Dr. Jazlyn Zayas DO Work Phone: [facility] 09-25-2024 11:57-0500 Systolic blood pressure 132 mm[Hg] Dr. Jazlyn Zayas DO Work Phone: [facility] 08-25-2024 09:12-0500 Body height 180.[address] Jazlyn Zayas DO Work Phone: [facility] 08-25-2024 09:12-0500 Body mass index (BMI) [Ratio] 32.8 kg/m2 Dr. Jazlyn Zayas DO Work Phone: [facility] 08-25-2024 09:12-0500 Body weight 106.[address] Jazlyn Zayas DO Work Phone: [facility] 08-25-2024 09:12-0500 Diastolic blood pressure 76 mm[Hg] Dr. Jazlyn Zayas DO Work Phone: [facility] 08-25-2024 09:12-0500 Heart rate 70 /min Dr. Jazlyn Zayas DO Work Phone: [facility] 08-25-2024 09:12-0500 Respiratory rate 18 /min Dr. Jazlyn Zayas DO Work Phone: [facility] 08-25-2024 09:12-0500 SaO2% (BldA) [Mass fraction] 97 % Dr. Jazlyn Zayas DO Work Phone: [facility] 08-25-2024 09:12-0500 Systolic blood pressure 124 mm[Hg] Dr. Jazlyn Zayas DO Work Phone: [facility] 07-20-2024 15:27-0500 Body mass index (BMI) [Ratio] 33.6 kg/m2 Dr. Jazlyn Zayas DO Work Phone: [facility] 07-20-2024 15:27-0500 Body temperature 97.9 [degF] Dr. Jazlyn Zayas DO Work Phone: [facility] 07-20-2024 15:27-0500 Body weight 109.[address] Jazlyn Zayas DO Work Phone: [facility] 07-20-2024 15:27-0500 Diastolic blood pressure 82 mm[Hg] Dr. Jazlyn Zayas DO Work Phone: [facility] 07-20-2024 15:27-0500 Heart rate 106 /min Dr. Jazlyn Zayas DO Work Phone: [facility] 07-20-2024 15:27-0500 SaO2% (BldA) [Mass fraction] 95 % Dr. Jazlyn Zayas DO Work Phone: [facility] 07-20-2024 15:27-0500 Systolic blood pressure 122 mm[Hg] Dr. Jazlyn Zayas DO Work Phone: [facility] 12-07-2023 10:02-0400 Diastolic blood pressure 104 mm[Hg] Dr. Jazlyn Zayas Work Phone: [facility] 12-07-2023 10:02-0400 Heart rate 57 /min Dr. Jazlyn Zayas Work Phone: [facility] 12-07-2023 10:02-0400 Systolic blood pressure 167 mm[Hg] Dr. Jazlyn Zayas Work Phone: [facility] 12-07-2023 09:58-0400 Body temperature 97.4 [degF] Dr. Jazlyn Zayas Work Phone: [facility] 12-07-2023 09:58-0400 Respiratory rate 16 /min Dr. Jazlyn Zayas Work Phone: [facility] 12-07-2023 09:58-0400 SaO2% (BldA) [Mass fraction] 97 % Dr. Jazlyn Zayas Work Phone: [facility] 12-03-2023 20:33-0400 Body height 180.[address] Jazlyn Zayas Work Phone: [facility] 12-03-2023 20:33-0400 Body mass index (BMI) [Ratio] 32.3 kg/m2 Dr. Jazlyn Zayas Work Phone: [facility] 12-03-2023 20:33-0400 Body weight 105.[address] Jazlyn Zayas Work Phone: [facility] 12-03-2023 19:28-0400 Heart rate 60 /min Dr. Jazlyn Zayas Work Phone: [facility] 12-03-2023 19:28-0400 Respiratory rate 17 /min Dr. Jazlyn Zayas Work Phone: [facility] 12-03-2023 19:28-0400 SaO2% (BldA) [Mass fraction] 94 % Dr. Jazlyn Zayas Work Phone: [facility] 12-03-2023 17:53-0400 Body temperature 97.8 [degF] Dr. Jazlyn Zayas Work Phone: [facility] 12-03-2023 17:53-0400 Diastolic blood pressure 94 mm[Hg] Dr. Jazlyn Zayas Work Phone: [facility] 12-03-2023 17:53-0400 Systolic blood pressure 144 mm[Hg] Dr. Jazlyn Zayas Work Phone: [facility] 12-03-2023 14:03-0400 Body height 180.[address] Jazlyn Zayas Work Phone: [facility] 12-03-2023 14:03-0400 Body mass index (BMI) [Ratio] 34.5 kg/m2 Dr. Jazlyn Zayas Work Phone: [facility] 12-03-2023 14:03-0400 Body weight 112.[address] Jazlyn Zayas Work Phone: [facility] 03-22-2023 11:53-0400 Body height 180.34 cm Amina Elam LPN [facility]; [facility] Work Phone: 03-22-2023 11:53-0400 Body mass index (BMI) [Ratio] 32.25 kg/m2 Amina Elam LPN [facility]; [facility] Work Phone: 03-22-2023 11:53-0400 Body surface area Derived from formula 2.24 m2 Amina Slarb DIETETIC INTERN [facility]; [facility] Work Phone: 03-22-2023 11:53-0400 Body temperature 97.4 [degF] Amina Slarb DIETETIC INTERN [facility]; [facility] Work Phone: Comment on above: Method: Temporal 03-22-2023 11:53-0400 Body weight 104.89 kg Amina Slarb DIETETIC INTERN [facility]; [facility] Work Phone: 03-22-2023 11:53-0400 Diastolic blood pressure 82 mm[Hg] Amina Slarb DIETETIC INTERN [facility]; [facility] Work Phone: Comment on above: Patient Position: Sitting; Cuff Location : Left Arm; Cuff Size: Standard 03-22-2023 11:53-0400 Heart rate 65 /min Amina Slarb DIETETIC INTERN [facility]; [facility] Work Phone: Comment on above: Pattern: Regular 03-22-2023 11:53-0400 Respiratory rate 12 /min Amina Slarb DIETETIC INTERN [facility]; [facility] Work Phone: Comment on above: Pattern: Unlabored 03-22-2023 11:53-0400 SaO2% (BldA) [Mass fraction] 97 % Amina Slarb DIETETIC INTERN [facility]; [facility] Work Phone: Comment on above: Room air 03-22-2023 11:53-0400 Systolic blood pressure 126 mm[Hg] Amina Slarb DIETETIC INTERN [facility]; [facility] Work Phone: Comment on above: Patient Position: Sitting; Cuff Location : Left Arm; Cuff Size: Standard 01-21-2023 15:10-0400 Body height 180.[address] Jazlyn Zayas Work Phone: [facility] 01-21-2023 15:10-0400 Body weight 100.[address] Jazlyn Zayas Work Phone: [facility] 01-21-2023 14:59-0400 Body mass index (BMI) [Ratio] 30.8 kg/m2 Dr. Jazlyn Zayas Work Phone: [facility] 01-21-2023 14:59-0400 Heart rate 68 /min Dr. Jazlyn Zayas Work Phone: [facility] 01-21-2023 14:59-0400 SaO2% (BldA) [Mass fraction] 96 % Dr. Jazlyn Zayas Work Phone: [facility] 01-21-2023 08:39-0400 Body mass index (BMI) [Ratio] 31.1 kg/m2 Dr. Jazlyn Zayas Work Phone: [facility] 01-21-2023 08:39-0400 Body weight 101.[address] Jazlyn Zayas Work Phone: [facility] 01-21-2023 08:39-0400 Diastolic blood pressure 83 mm[Hg] Dr. Jazlyn Zayas Work Phone: [facility] 01-21-2023 08:39-0400 Heart rate 67 /min Dr. Jazlyn Zayas Work Phone: [facility] 01-21-2023 08:39-0400 Respiratory rate 18 /min Dr. Jazlyn Zayas Work Phone: [facility] 01-21-2023 08:39-0400 SaO2% (BldA) [Mass fraction] 96 % Dr. Jazlyn Zayas Work Phone: [facility] 01-21-2023 08:39-0400 Systolic blood pressure 129 mm[Hg] Dr. Jazlyn Zayas Work Phone: [facility] 01-02-2023 12:01-0400 Body mass index (BMI) [Ratio] 31.1 kg/m2 Phillip Jo APRN - EXPERIMENTAL WELDER Work Phone: [facility] [employer] 01-02-2023 12:01-0400 Body weight 101.15 kg Phillip Jo APRN - EXPERIMENTAL WELDER Work Phone: [employer] 01-02-2023 12:01-0400 Diastolic blood pressure 78 mm[Hg] Phillip Jo APRN - EXPERIMENTAL WELDER Work Phone: [facility] [employer] 01-02-2023 12:01-0400 Heart rate 58 /min Phillip Jo APRN - EXPERIMENTAL WELDER Work Phone: [facility] [employer] 01-02-2023 12:01-0400 Systolic blood pressure 113 mm[Hg] Phillip Jo APRN - EXPERIMENTAL WELDER Work Phone: [facility] [employer] 12-25-2022 10:00-0400 Heart rate 68 /min Consuelo Sharpeung DO Work Phone: [facility] [employer] 12-25-2022 08:54-0400 Body temperature 98.2 [degF] Consuelo Bonner DO Work Phone: [facility] [employer] 12-25-2022 08:54-0400 Diastolic blood pressure 76 mm[Hg] Consuelo Bonner DO Work Phone: [facility] [employer] [employer] 12-25-2022 08:54-0400 Respiratory rate 18 /min Consuelo Bonner DO Work Phone: [facility] [employer] 12-25-2022 08:54-0400 SaO2% (BldA) [Mass fraction] 96 % Consuelo Bonner DO Work Phone: [facility] [employer] 12-25-2022 08:54-0400 Systolic blood pressure 121 mm[Hg] Consuelo Bonner DO Work Phone: [facility] [employer] 12-25-2022 06:00-0400 Body mass index (BMI) [Ratio] 30.92 kg/m2 Consuelo Bonner DO Work Phone: [facility] [employer] 12-25-2022 06:00-0400 Body weight 100.56 kg Consuelo Bonner DO Work Phone: [facility] [employer] 12-21-2022 07:23-0400 Body height 180.3 cm Consuelo Bonner DO Work Phone: [facility] 12-20-2022 12:51-0400 SaO2% (BldA) [Mass fraction] 97.1 % Consuelo Bonner DO Work Phone: [facility] 12-18-2022 11:00-0400 Diastolic blood pressure 81 mm[Hg] Dr. Jazlyn Zayas Work Phone: [facility] 12-18-2022 11:00-0400 Heart rate 59 /min Dr. Jazlyn Zayas Work Phone: [facility] 12-18-2022 11:00-0400 Systolic blood pressure 153 mm[Hg] Dr. Jazlyn Zayas Work Phone: [facility] 12-18-2022 10:30-0400 Respiratory rate 17 /min Dr. Jazlyn Zayas Work Phone: [facility] 12-18-2022 10:30-0400 SaO2% (BldA) [Mass fraction] 98 % Dr. Jazlyn Zayas Work Phone: [facility] 12-18-2022 09:15-0400 Body temperature 97.8 [degF] Dr. Jazlyn Zayas Work Phone: [facility] 12-17-2022 03:10-0400 Body mass index (BMI) [Ratio] 31.8 kg/m2 Dr. Jazlyn Zayas Work Phone: [facility] 12-17-2022 03:10-0400 Body weight 103.[address] Jazlyn Zayas Work Phone: [facility] 08-06-2022 17:00-0500 Body temperature 98.4 [degF] Dr. Jazlyn Zayas Work Phone: [facility] 08-06-2022 17:00-0500 Diastolic blood pressure 98 mm[Hg] Dr. Jazlyn Zayas Work Phone: [facility] 08-06-2022 17:00-0500 Heart rate 94 /min Dr. Jazlyn Zayas Work Phone: [facility] 08-06-2022 17:00-0500 Respiratory rate 16 /min Dr. Jazlyn Zayas Work Phone: [facility] 08-06-2022 17:00-0500 SaO2% (BldA) [Mass fraction] 95 % Dr. Jazlyn Zayas Work Phone: [facility] 08-06-2022 17:00-0500 Systolic blood pressure 148 mm[Hg] Dr. Jazlyn Zayas Work Phone: [facility] 05-02-2022 17:08-0400 [facility] Work Phone: 05-02-2022 17:08-0400 Body mass index (BMI) [Ratio] 32.25 kg/m2 [facility]; [facility] Work Phone: 05-02-2022 17:08-0400 Body surface area Derived from formula 2.24 m2 [facility]; [facility] Work Phone: 05-02-2022 17:08-0400 Body temperature 96.8 [degF] [facility]; [facility] Work Phone: 05-02-2022 17:08-0400 Body weight 104.89 kg [facility]; [facility] Work Phone: 05-02-2022 17:08-0400 Diastolic blood pressure 80 mm[Hg] [facility]; [facility] Work Phone: Comment on above: Patient Position: Sitting; Cuff Location : Left Arm; Cuff Size: Standard 05-02-2022 17:08-0400 Heart rate 69 /min [facility]; [facility] Work Phone: Comment on above: Pattern: Regular 05-02-2022 17:08-0400 Respiratory rate 16 /min Kayela Brandi [employer] [facility]; [facility] Work Phone: Comment on above: Pattern: Unlabored 05-02-2022 17:08-0400 SaO2% (BldA) [Mass fraction] 96 % [facility]; [facility] Work Phone: Comment on above: Room air 05-02-2022 17:08-0400 Systolic blood pressure 140 mm[Hg] [place] [facility]; [facility] Work Phone: Comment on above: Patient Position: Sitting; Cuff Location : Left Arm; Cuff Size: Standard 03-13-2022 09:00-0400 Body height 177.[address] Jazlyn Zayas Work Phone: [facility] Work Phone: 03-13-2022 09:00-0400 Body mass index (BMI) [Ratio] 32.8 kg/m2 Dr. Jazlyn Zayas Work Phone: [facility] Work Phone: 03-13-2022 09:00-0400 Body weight 103.[address] Jazlyn Zayas Work Phone: [facility] Work Phone: 03-13-2022 09:00-0400 Diastolic blood pressure 94 mm[Hg] Dr. Jazlyn Zayas Work Phone: [facility] Work Phone: 03-13-2022 09:00-0400 Heart rate 58 /min Dr. Jazlyn Zayas Work Phone: [facility] Work Phone: 03-13-2022 09:00-0400 Respiratory rate 16 /min Dr. Jazlyn Zayas Work Phone: [facility] Work Phone: 03-13-2022 09:00-0400 SaO2% (BldA) [Mass fraction] 98 % Dr. Jazlyn Zayas Work Phone: [facility] Work Phone: 03-13-2022 09:00-0400 Systolic blood pressure 144 mm[Hg] Dr. Jazlyn Zayas Work Phone: [facility] Work Phone: 2022 11:22-0400 Body height 180.34 cm [facility]; [facility] Work Phone: 2022 11:22-0400 Body mass index (BMI) [Ratio] 32.08 kg/m2 [facility]; [facility] Work Phone: 2022 11:22-0400 Body surface area Derived from formula 2.24 m2 Madai Martin [facility]; [facility] Work Phone: 2022 11:22-0400 Body temperature 96.9 [degF] Madai Veronica [facility]; [facility] Work Phone: Comment on above: Method: Thermal Scan 2022 11:22-0400 Body weight 104.33 kg Madai Martin [facility]; [facility] Work Phone: 2022 11:22-0400 Diastolic blood pressure 64 mm[Hg] [facility]; [facility] Work Phone: Comment on above: Patient Position: Sitting; Cuff Location : Left Arm; Cuff Size: Standard 2022 11:22-0400 Heart rate 63 /min Madai Martin [facility]; [facility] Work Phone: Comment on above: Pattern: Regular 2022 11:22-0400 Respiratory rate 16 /min Madai Veronica [facility]; [facility] Work Phone: Comment on above: Pattern: Unlabored 2022 11:22-0400 Systolic blood pressure 120 mm[Hg] Madaibrett Martin [facility]; [facility] Work Phone: Comment on above: Patient Position: Sitting; Cuff Location : Left Arm; Cuff Size: Standard 01-29-2022 12:53-0400 Diastolic blood pressure 71 mm[Hg] [facility] Work Phone: 01-29-2022 12:53-0400 Heart rate 69 /min [facility] Work Phone: 01-29-2022 12:53-0400 Respiratory rate 16 /min [facility] Work Phone: 01-29-2022 12:53-0400 SaO2% (BldA) [Mass fraction] 98 % [facility] Work Phone: 01-29-2022 12:53-0400 Systolic blood pressure 121 mm[Hg] [facility] Work Phone: 01-29-2022 08:22-0400 Body height 177.8 cm [facility] Work Phone: 01-29-2022 08:22-0400 Body mass index (BMI) [Ratio] 33.7 kg/m2 [facility] Work Phone: 01-29-2022 08:22-0400 Body temperature 97.6 [degF] [facility] Work Phone: 01-29-2022 08:22-0400 Body weight 106.7 kg [facility] Work Phone: 10-26-2021 07:33-0400 Body height 180.34 cm Ginette Arzate LPN [facility]; [facility] Work Phone: 10-26-2021 07:33-0400 Body mass index (BMI) [Ratio] 32.08 kg/m2 Ginette Arzate LPN [facility]; [facility] Work Phone: 10-26-2021 07:33-0400 Body surface area Derived from formula 2.24 m2 Ginette Arzate LPN [facility]; [facility] Work Phone: 10-26-2021 07:33-0400 Body weight 104.33 kg Ginette Arzate JAYSHREE [facility]; [facility] Work Phone: 10-26-2021 07:33-0400 Diastolic blood pressure 72 mm[Hg] Ginette Arzate DIETETIC INTERN [facility]; [facility] Work Phone: Comment on above: Patient Position: Sitting; Cuff Location : Left Arm; Cuff Size: Standard 10-26-2021 07:33-0400 Heart rate 77 /min Ginette Arzate JAYSHREE [facility]; [facility] Work Phone: Comment on above: Pattern: Regular 10-26-2021 07:33-0400 Respiratory rate 16 /min Ginette Arzate JAYSHREE [facility]; [facility] Work Phone: Comment on above: Pattern: Unlabored 10-26-2021 07:33-0400 SaO2% (BldA) [Mass fraction] 96 % Ginetteestuardo Arzate JAYSHREE [facility]; [facility] Work Phone: Comment on above: Room air 10-26-2021 07:33-0400 Systolic blood pressure 142 mm[Hg] Ginette Arzate JAYSHREE [facility]; [facility] Work Phone: Comment on above: Patient Position: Sitting; Cuff Location : Left Arm; Cuff Size: Standard 08-29-2021 09:24-0500 Body height 180.34 cm Amina Elam LPN [facility]; [facility] Work Phone: 08-29-2021 09:24-0500 Body mass index (BMI) [Ratio] 30.82 kg/m2 Amina Elam LPN [facility]; [facility] Work Phone: 08-29-2021 09:24-0500 Body surface area Derived from formula 2.2 m2 Amina Elam LPN [facility]; [facility] Work Phone: 08-29-2021 09:24-0500 Body temperature 98.1 [degF] Amina Elam LPN [facility]; [facility] Work Phone: 08-29-2021 09:24-0500 Body weight 100.25 kg Amina Slarb DIETETIC INTERN [facility]; [facility] Work Phone: 08-29-2021 09:24-0500 Diastolic blood pressure 80 mm[Hg] Amina Slarb DIETETIC INTERN [facility]; [facility] Work Phone: Comment on above: Patient Position: Sitting; Cuff Location : Left Arm; Cuff Size: Standard 08-29-2021 09:24-0500 Heart rate 67 /min Amina Slarb DIETETIC INTERN [facility]; [facility] Work Phone: Comment on above: Pattern: Regular 08-29-2021 09:24-0500 Respiratory rate 1 /min Amina Slarb DIETETIC INTERN [facility]; [facility] Work Phone: Comment on above: Pattern: Unlabored 08-29-2021 09:24-0500 SaO2% (BldA) [Mass fraction] 97 % Amina Slarb DIETETIC INTERN [facility]; [facility] Work Phone: Comment on above: Room air 08-29-2021 09:24-0500 Systolic blood pressure 138 mm[Hg] Amina Slarb DIETETIC INTERN [facility]; [facility] Work Phone: Comment on above: Patient Position: Sitting; Cuff Location : Left Arm; Cuff Size: Standard 08-17-2021 13:31-0500 Body temperature 98.1 [degF] Dr. Jazlyn Zayas Work Phone: [facility] Work Phone: 08-17-2021 13:31-0500 Diastolic blood pressure 85 mm[Hg] Dr. Jazlyn Zayas Work Phone: [facility] Work Phone: 08-17-2021 13:31-0500 Heart rate 69 /min Dr. Jazlyn Zayas Work Phone: [facility] Work Phone: 08-17-2021 13:31-0500 Respiratory rate 16 /min Dr. Jazlyn Zayas Work Phone: [facility] Work Phone: 08-17-2021 13:31-0500 SaO2% (BldA) [Mass fraction] 97 % Dr. Jazlyn Zayas Work Phone: [facility] Work Phone: 08-17-2021 13:31-0500 Systolic blood pressure 155 mm[Hg] Dr. Jazlyn Zayas Work Phone: [facility] Work Phone: 08-17-2021 11:32-0500 Body height 180.[address] Jazlyn Zayas Work Phone: [facility] Work Phone: 08-17-2021 11:32-0500 Body mass index (BMI) [Ratio] 32.1 kg/m2 Dr. Jazlyn Zayas Work Phone: [facility] Work Phone: 08-17-2021 11:32-0500 Body weight 104.[address] Jazlyn Zayas Work Phone: [facility] Work Phone: 08-14-2021 16:19-0500 Body temperature 97.9 [degF] Dr. Jazlyn Zayas Work Phone: [facility] Work Phone: 08-14-2021 16:19-0500 Diastolic blood pressure 76 mm[Hg] Dr. Jazlyn Zayas Work Phone: [facility] Work Phone: 08-14-2021 16:19-0500 Heart rate 89 /min Dr. Jazlyn Zayas Work Phone: [facility] Work Phone: 08-14-2021 16:19-0500 Respiratory rate 18 /min Dr. Jazlyn Zayas Work Phone: [facility] Work Phone: 08-14-2021 16:19-0500 SaO2% (BldA) [Mass fraction] 96 % Dr. Jazlyn Zayas Work Phone: [facility] Work Phone: 08-14-2021 16:19-0500 Systolic blood pressure 136 mm[Hg] Dr. Jazlyn Zayas Work Phone: [facility] Work Phone: 07-12-2021 08:55-0500 Body temperature 96.9 [degF] Dr. Jazlyn Zayas Work Phone: [facility] Work Phone: 07-12-2021 08:55-0500 Diastolic blood pressure 78 mm[Hg] Dr. Jazlyn Zayas Work Phone: [facility] Work Phone: 07-12-2021 08:55-0500 Heart rate 95 /min Dr. Jazlyn Zayas Work Phone: [facility] Work Phone: 07-12-2021 08:55-0500 Respiratory rate 16 /min Dr. Jazlyn Zayas Work Phone: [facility] Work Phone: 07-12-2021 08:55-0500 SaO2% (BldA) [Mass fraction] 98 % Dr. Jazlyn Zayas Work Phone: [facility] Work Phone: 07-12-2021 08:55-0500 Systolic blood pressure 154 mm[Hg] Dr. Jazlyn Zayas Work Phone: [facility] Work Phone: 05-04-2021 08:47-0400 Body height 180.34 cm Amina Elam LPN [facility]; [facility] Work Phone: 05-04-2021 08:47-0400 Body mass index (BMI) [Ratio] 30.82 kg/m2 Amina Tavonrb DIETETIC INTERN [facility]; [facility] Work Phone: 05-04-2021 08:47-0400 Body surface area Derived from formula 2.2 m2 Amina Tavonrb DIETETIC INTERN [facility]; [facility] Work Phone: 05-04-2021 08:47-0400 Body temperature 97.1 [degF] Amina Slarb DIETETIC INTERN [facility]; [facility] Work Phone: 05-04-2021 08:47-0400 Body weight 100.25 kg Amina Slarb DIETETIC INTERN [facility]; [facility] Work Phone: 05-04-2021 08:47-0400 Diastolic blood pressure 82 mm[Hg] Amina Tavonrb DIETETIC INTERN [facility]; [facility] Work Phone: Comment on above: Patient Position: Sitting; Cuff Location : Left Arm; Cuff Size: Standard 05-04-2021 08:47-0400 Heart rate 70 /min Amina Montes De Ocarb DIETETIC INTERN [facility]; [facility] Work Phone: Comment on above: Pattern: Regular 05-04-2021 08:47-0400 Respiratory rate 16 /min Amina Tavonrb DIETETIC INTERN [facility]; [facility] Work Phone: Comment on above: Pattern: Unlabored 05-04-2021 08:47-0400 SaO2% (BldA) [Mass fraction] 94 % Amina Slarb DIETETIC INTERN [facility]; [facility] Work Phone: Comment on above: Room air 05-04-2021 08:47-0400 Systolic blood pressure 132 mm[Hg] Amina Slarb DIETETIC INTERN [facility]; [facility] Work Phone: Comment on above: Patient Position: Sitting; Cuff Location : Left Arm; Cuff Size: Standard 04-14-2021 07:05-0400 Body height 180.34 cm Jodi Gravius [facility]; [facility] Work Phone: 04-14-2021 07:05-0400 Body mass index (BMI) [Ratio] 30.96 kg/m2 Jodi Pierce [facility]; [facility] Work Phone: 04-14-2021 07:05-0400 Body surface area Derived from formula 2.2 m2 Jodi Pierce [facility]; [facility] Work Phone: 04-14-2021 07:05-0400 Body temperature 97.2 [degF] Jodi Pierce [facility]; [facility] Work Phone: Comment on above: Method: Infrared 04-14-2021 07:05-0400 Body weight 100.7 kg Jodi Pierce [facility]; [facility] Work Phone: 04-14-2021 07:05-0400 Diastolic blood pressure 80 mm[Hg] Jodi Pierce [facility]; [facility] Work Phone: Comment on above: Patient Position: Sitting; Cuff Location : Left Arm; Cuff Size: Standard 04-14-2021 07:05-0400 Heart rate 62 /min Jodi Pierce [facility]; [facility] Work Phone: Comment on above: Pattern: Regular 04-14-2021 07:05-0400 Respiratory rate 18 /min Jodi Pierce [facility]; [facility] Work Phone: Comment on above: Pattern: Unlabored 04-14-2021 07:05-0400 SaO2% (BldA) [Mass fraction] 97 % Jodi Pierce [facility]; [facility] Work Phone: Comment on above: Room air 04-14-2021 07:05-0400 Systolic blood pressure 132 mm[Hg] Jodi Pierce [facility]; [facility] Work Phone: Comment on above: Patient Position: Sitting; Cuff Location : Left Arm; Cuff Size: Standard 10-20-2020 07:14-0400 BMI (Body Mass Index) 30.96 kg/m2 RUST[facility] hooker [facility]; [facility] Work Phone: 10-20-2020 07:14-0400 Body Temperature 97.1 [degF] [facility]; [facility] Work Phone: Comment on above: Method: Thermal Scan 10-20-2020 07:14-0400 Body weight 100.7 kg [facility]; [facility] Work Phone: 10-20-2020 07:14-0400 BP Diastolic 72 mm[Hg] [facility]; [facility] Work Phone: Comment on above: Patient Position: Sitting; Cuff Location : Left Arm; Cuff Size: Standard 10-20-2020 07:14-0400 BP Systolic 118 mm[Hg] [facility]; [facility] Work Phone: Comment on above: Patient Position: Sitting; Cuff Location : Left Arm; Cuff Size: Standard 10-20-2020 07:14-0400 BSA (Body Surface Area) 2.2 m2 [facility]; [facility] Work Phone: 10-20-2020 07:14-0400 Height 180.34 cm [facility]; [facility] Work Phone: 10-20-2020 07:14-0400 Pulse (Heart Rate) 60 /min [facility] Comprehens[facility] e [facility]; [facility] Work Phone: Comment on above: Pattern: Regular 10-20-2020 07:14-0400 Pulse Oximetry 99 % Jazlyn Zayas [facility]; [facility] Work Phone: Comment on above: Room air 10-20-2020 07:14-0400 Respiratory Rate 16 /min [facility]; [facility] Work Phone: Comment on above: Pattern: Unlabored 10-20-2020 07:14-0400 SaO2% (BldA) [Mass fraction] 99 % [facility]; [facility] Work Phone: Comment on above: Room air 10-12-2020 11:35-0400 BMI (Body Mass Index) 30.96 kg/m2 Jodi Pierce CMA [facility]; [facility] Work Phone: 10-12-2020 11:35-0400 Body Temperature 97.2 [degF] Jodi Pierce CMA [facility]; [facility] Work Phone: Comment on above: Method: Infrared 10-12-2020 11:35-0400 Body weight 100.7 kg Jodi Pierce [employer] [facility]; [facility] Work Phone: 10-12-2020 11:35-0400 BP Diastolic 82 mm[Hg] Jodi Pierce [facility]; [facility] Work Phone: Comment on above: Patient Position: Sitting; Cuff Location : Left Arm; Cuff Size: Standard 10-12-2020 11:35-0400 BP Systolic 140 mm[Hg] Jodi Pierce [facility]; [facility] Work Phone: Comment on above: Patient Position: Sitting; Cuff Location : Left Arm; Cuff Size: Standard 10-12-2020 11:35-0400 BSA (Body Surface Area) 2.2 m2 Jodi Pierce [facility]; [facility] Work Phone: 10-12-2020 11:35-0400 Height 180.34 cm Jodi Pierce [facility]; [facility] Work Phone: 10-12-2020 11:35-0400 Pulse (Heart Rate) 66 /min Jodi Pierce [facility]; [facility] Work Phone: Comment on above: Pattern: Regular 10-12-2020 11:35-0400 Pulse Oximetry 97 % Jazlyn Zayas [facility]; [facility] Work Phone: Comment on above: Room air 10-12-2020 11:35-0400 Respiratory Rate 16 /min Jodi Pierce [facility]; [facility] Work Phone: Comment on above: Pattern: Unlabored 03-17-2021 11:35-0400 SaO2% (BldA) [Mass fraction] 97 % Jodi Pierce [facility]; [facility] Work Phone: Comment on above: Room air 02-06-2019 08:38-0400 BMI (Body Mass Index) 30.13 kg/m2 Jodi Pierce [facility] Work Phone: 02-06-2019 08:38-0400 Body Temperature 97.2 [degF] Jodi Pierce [facility] Work Phone: Comment on above: Method: Temporal 02-06-2019 08:38-0400 Body weight 97.98 kg Jodi Pierce [facility] Work Phone: 02-06-2019 08:38-0400 BP Diastolic 82 mm[Hg] Jodi Pierce [facility] Work Phone: Comment on above: Patient Position: Sitting; Cuff Location : Left Arm; Cuff Size: Standard 02-06-2019 08:38-0400 BP Systolic 124 mm[Hg] Jodi Pierce [facility] Work Phone: Comment on above: Patient Position: Sitting; Cuff Location : Left Arm; Cuff Size: Standard 02-06-2019 08:38-0400 BSA (Body Surface Area) 2.18 m2 Jodi Pierce [facility] Work Phone: 02-06-2019 08:38-0400 Height 180.34 cm Jodi Pierce [facility] Work Phone: 02-06-2019 08:38-0400 Pulse (Heart Rate) 62 /min Jodi Pierce [facility] Work Phone: Comment on above: Pattern: Regular 02-06-2019 08:38-0400 Pulse Oximetry 97 % Jazlyn Jose Manuel [facility] Work Phone: Comment on above: Room air 02-06-2019 08:38-0400 Respiratory Rate 18 /min Jodi Pierce [facility] Work Phone: Comment on above: Pattern: Unlabored 02-06-2019 08:38-0400 SaO2% (BldA) [Mass fraction] 97 % Jodi Pierce [employer] [facility] Work Phone: Comment on above: Room air 01-19-2019 08:30-0400 BMI (Body Mass Index) 30.4 kg/m2 Sagrario Interiano RN [facility] Work Phone: 01-19-2019 08:30-0400 Body Temperature 98.2 [degF] Sagrario Interiano RN [facility] Work Phone: Comment on above: Method: Temporal 01-19-2019 08:30-0400 Body weight 98.88 kg Sagrario Interiano RN [facility] Work Phone: 01-19-2019 08:30-0400 BP Diastolic 80 mm[Hg] Sagrario Interiano RN [facility] Work Phone: Comment on above: Patient Position: Sitting; Cuff Location : Left Arm; Cuff Size: Standard 01-19-2019 08:30-0400 BP Systolic 124 mm[Hg] Sagrario Interiano RN [facility] Work Phone: Comment on above: Patient Position: Sitting; Cuff Location : Left Arm; Cuff Size: Standard 01-19-2019 08:30-0400 BSA (Body Surface Area) 2.19 m2 Sagrario Interiano RN [facility] Work Phone: 01-19-2019 08:30-0400 Height 180.34 cm Sagrario Interiano RN [facility] Work Phone: 01-19-2019 08:30-0400 Pulse (Heart Rate) 78 /min Sagrario Interiano RN [facility] Work Phone: Comment on above: Pattern: Regular 01-19-2019 08:30-0400 Respiratory Rate 16 /min Sagrario Interiano RN [facility] Work Phone: Comment on above: Pattern: Unlabored 01-19-2019 08:30-0400 Weight 98.88 kg Jazlyn Zayas [facility] Work Phone: 11-26-2018 09:35-0400 BMI (Body Mass Index) 30.4 kg/m2 Jodi Pierce [employer] [facility] Work Phone: 11-26-2018 09:35-0400 Body Temperature 96.8 [degF] Jodi Pierce CMA [facility] Internal Medicine Work Phone: Comment on above: Method: Temporal 11-26-2018 09:35-0400 Body weight 98.88 kg Jodi Pierce CMA [facility] Internal Medicine Work Phone: 11-26-2018 09:35-0400 BP Diastolic 76 mm[Hg] Jodi Pierce CMA [facility] Internal Medicine Work Phone: Comment on above: Patient Position: Sitting; Cuff Location : Left Arm; Cuff Size: Standard 11-26-2018 09:35-0400 BP Systolic 108 mm[Hg] Jodi Pierce [facility] Internal Medicine Work Phone: Comment on above: Patient Position: Sitting; Cuff Location : Left Arm; Cuff Size: Standard 11-26-2018 09:35-0400 BSA (Body Surface Area) 2.19 m2 Jodi Pierce [facility] Internal Medicine Work Phone: 11-26-2018 09:35-0400 Height 180.34 cm Jodi Pierce [facility] Internal Medicine Work Phone: 11-26-2018 09:35-0400 Pulse (Heart Rate) 52 /min Jodi Pierce [facility] Internal Medicine Work Phone: Comment on above: Pattern: Regular 11-26-2018 09:35-0400 Pulse Oximetry 98 % Jazlyn Zayas [facility] Internal Medicine Work Phone: Comment on above: Room air 11-26-2018 09:35-0400 Respiratory Rate 16 /min Jodi Pierce [facility] Internal Medicine Work Phone: Comment on above: Pattern: Unlabored 11-26-2018 09:35-0400 SaO2% (BldA) [Mass fraction] 98 % Jodi Pierce [facility] Internal Medicine Work Phone: Comment on above: Room air 11-26-2018 09:35-0400 Weight 98.88 kg Jazlyn Zayas [facility] Internal Medicine Work Phone: 11-04-2018 08:30-0400 BMI (Body Mass Index) 30.96 kg/m2 Jodi Pierce [facility] Internal Medicine Work Phone: 11-04-2018 08:30-0400 Body Temperature 97.5 [degF] Jodi Pierce [facility] Internal Medicine Work Phone: Comment on above: Method: Temporal 11-04-2018 08:30-0400 Body weight 100.7 kg Jodi Pierce [facility] Internal Medicine Work Phone: 11-04-2018 08:30-0400 BP Diastolic 78 mm[Hg] Jodi Pierce [facility] Internal Medicine Work Phone: Comment on above: Patient Position: Sitting; Cuff Location : Left Arm; Cuff Size: Standard 11-04-2018 08:30-0400 BP Systolic 131 mm[Hg] Jodi Pierce [facility] Internal Medicine Work Phone: Comment on above: Patient Position: Sitting; Cuff Location : Left Arm; Cuff Size: Standard 11-04-2018 08:30-0400 BSA (Body Surface Area) 2.2 m2 Jodi Pierce [facility] Internal Medicine Work Phone: 11-04-2018 08:30-0400 Height 180.34 cm Jodi Pierce [facility] Internal Medicine Work Phone: 11-04-2018 08:30-0400 Pulse (Heart Rate) 65 /min Jodi Pierce [facility] Internal Medicine Work Phone: Comment on above: Pattern: Regular 11-04-2018 08:30-0400 Pulse Oximetry 98 % Jazlyn Jose Manuel [facility] Internal Medicine Work Phone: Comment on above: Room air 11-04-2018 08:30-0400 Respiratory Rate 16 /min Jodi Pierce [facility] Internal Medicine Work Phone: Comment on above: Pattern: Unlabored 11-04-2018 08:30-0400 SaO2% (BldA) [Mass fraction] 98 % Jodi Pierce [facility] Internal Medicine Work Phone: Comment on above: Room air 11-04-2018 08:30-0400 Weight 100.7 kg Jazlyn Zayas [facility] Work Phone: 10-09-2018 12:50-0400 BMI (Body Mass Index) 30.96 kg/m2 Yenifer Esquivel RN [facility] Work Phone: 10-09-2018 12:50-0400 Body Temperature 98 [degF] Yenifer Esquivel RN [facility] Work Phone: Comment on above: Method: Oral 10-09-2018 12:50-0400 Body weight 100.7 kg Yenifer Esquivel RN [facility] Work Phone: 10-09-2018 12:50-0400 BP Diastolic 79 mm[Hg] Yenifer Esquivel RN [facility] Work Phone: 10-09-2018 12:50-0400 BP Systolic 123 mm[Hg] Yenifer Esquivel RN [facility] Work Phone: 10-09-2018 12:50-0400 BSA (Body Surface Area) 2.2 m2 Yenifer Esquivel RN [facility] Work Phone: 10-09-2018 12:50-0400 Height 180.34 cm Yenifer Esquivel RN [facility] Work Phone: 10-09-2018 12:50-0400 Pulse (Heart Rate) 76 /min Yenifer Esquivel RN [facility] Work Phone: Comment on above: Pattern: Regular 10-09-2018 12:50-0400 Pulse Oximetry 93 % Jazlyn Zayas [facility] Work Phone: Comment on above: Room air 10-09-2018 12:50-0400 Respiratory Rate 18 /min Yenifer Esquivel RN [facility] Work Phone: Comment on above: Pattern: Unlabored 10-09-2018 12:50-0400 SaO2% (BldA) [Mass fraction] 93 % Yenifer Esquivel RN [facility] Work Phone: Comment on above: Room air 10-09-2018 12:50-0400 Weight 100.7 kg Jazlyn Zayas [facility] Work Phone: 08-26-2017 13:59-0500 BMI (Body Mass Index) 30.88 kg/m2 Yenifer Esquivel RN [facility] Work Phone: 08-26-2017 13:59-0500 Body weight 100.42 kg Yenifer Esquivel RN [facility] Work Phone: 08-26-2017 13:59-0500 BP Diastolic 62 mm[Hg] Yenifer Esquivel RN [facility] Work Phone: Comment on above: Patient Position: Sitting; Cuff Location : Left Arm; Cuff Size: Large 08-26-2017 13:59-0500 BP Systolic 138 mm[Hg] Yenifer Esquivel RN [facility] Work Phone: Comment on above: Patient Position: Sitting; Cuff Location : Left Arm; Cuff Size: Large 08-26-2017 13:59-0500 BSA (Body Surface Area) 2.2 m2 Yenifer Esquivel RN [facility] Work Phone: 08-26-2017 13:59-0500 Height 180.34 cm Yenifer Esquivel RN [facility] Work Phone: 08-26-2017 13:59-0500 Pulse (Heart Rate) 61 /min Yenifer Esquivel RN [facility] Work Phone: Comment on above: Pattern: Regular 08-26-2017 13:59-0500 Pulse Oximetry 96 % Jazlyn Jose Manuel [facility] Work Phone: Comment on above: Room air 08-26-2017 13:59-0500 Respiratory Rate 18 /min Yenifer Esquivel RN [facility] Work Phone: Comment on above: Pattern: Unlabored 08-26-2017 13:59-0500 SaO2% (BldA) [Mass fraction] 96 % Yenifer Esquivel RN [facility] Work Phone: Comment on above: Room air 08-26-2017 13:59-0500 Weight 100.42 kg Jazlyn Hawleyon [facility] Work Phone: 12-06-2016 12:09-0400 BMI (Body Mass Index) 30.32 kg/m2 Yenifer Esquivel RN [facility] Work Phone: 12-06-2016 12:09-0400 Body weight 98.6 kg Yenifer Esquivel RN [facility] Work Phone: 12-06-2016 12:09-0400 BP Diastolic 70 mm[Hg] Yenifer Esquivel RN [facility] Work Phone: Comment on above: Patient Position: Sitting; Cuff Location : Left Arm; Cuff Size: Large 12-06-2016 12:09-0400 BP Systolic 138 mm[Hg] Yenifer Esquivel RN [facility] Work Phone: Comment on above: Patient Position: Sitting; Cuff Location : Left Arm; Cuff Size: Large 12-06-2016 12:09-0400 BSA (Body Surface Area) 2.19 m2 Yenifer Esquivel RN [facility] Work Phone: 12-06-2016 12:09-0400 Height 180.34 cm Yenifer Esquivel RN [facility] Work Phone: 12-06-2016 12:09-0400 Pulse (Heart Rate) 71 /min Yenifer Esquivel RN [facility] Work Phone: Comment on above: Pattern: Regular 12-06-2016 12:09-0400 Pulse Oximetry 98 % Jazlyn Jose Manuel [facility] Work Phone: Comment on above: Room air 12-06-2016 12:09-0400 Respiratory Rate 18 /min Yenifer Esquivel RN [facility] Work Phone: Comment on above: Pattern: Unlabored 12-06-2016 12:09-0400 SaO2% (BldA) [Mass fraction] 98 % Yenifer Esquivel RN [facility] Work Phone: Comment on above: Room air 12-06-2016 12:09-0400 Weight 98.6 kg Jazlyn Zayas [facility] Work Phone: 02-10-2016 07:23-0400 BMI (Body Mass Index) 30.68 kg/m2 Jazlyn Zayas DO Work Phone: [facility] Work Phone: Comment on above: Dr. Johnson and [facility] 02-10-2016 07:23-0400 Body weight 99.79 kg Jazlyn Zayas DO Work Phone: [facility] Work Phone: Comment on above: Dr. Johnson and [facility] glaucoma test [facility] 02-10-2016 07:23-0400 BP Diastolic 82 mm[Hg] Jazlyn Zayas DO Work Phone: [facility] Work Phone: Comment on above: Patient Position: Sitting; Cuff Location : Left Arm; Cuff Size: Large Dr. Johnson and had a glaucoma test done [facility] 02-10-2016 07:23-0400 BP Systolic 118 mm[Hg] Jazlyn Zayas DO Work Phone: [facility] Work Phone: Comment on above: Patient Position: Sitting; Cuff Location : Left Arm; Cuff Size: Large Dr. Johnson and had a glaucoma test done [facility] 02-10-2016 07:23-0400 BSA (Body Surface Area) 2.2 m2 Jazlyn Zayas DO Work Phone: [facility] Work Phone: Comment on above: Dr. Johnson and [facility] a glaucoma test done [facility] 02-10-2016 07:23-0400 Height 180.34 cm Jazlyn Zayas DO Work Phone: [facility] Work Phone: Comment on above: Dr. Johnson and had a glaucoma test done [facility] 02-10-2016 07:23-0400 Pulse (Heart Rate) 66 /min Jazlyn Zayas DO Work Phone: [facility] Work Phone: Comment on above: Pattern: Regular Dr. Johnson and had a glaucoma test done [facility] 02-10-2016 07:23-0400 Pulse Oximetry 97 % Jazlyn Zayas [facility] Work Phone: Comment on above: Room air Dr. Johnson and had a glaucoma test done [facility] 02-10-2016 07:23-0400 Respiratory Rate 18 /min Jazlyn Zayas DO Work Phone: [facility] Work Phone: Comment on above: Pattern: Unlabored Dr. Johnson and [facility] a [facility] test [facility] 02-10-2016 07:23-0400 SaO2% (BldA) [Mass fraction] 97 % Jazlyn Zayas DO Work Phone: [facility] Work Phone: Comment on above: Room air Dr. Johnson and had a glaucoma test done [facility] 02-10-2016 07:23-0400 Weight 99.79 kg Jazlyn Zayas [facility] Work Phone: Comment on above: Dr. Johnson and [facility] test [facility] 01-27-2016 10:42-0400 BMI (Body Mass Index) 31.69 kg/m2 Yenifer Esquivel RN [facility] Work Phone: 01-27-2016 10:42-0400 Body weight 103.08 kg Yenifer Esquivel RN [facility] Work Phone: 01-27-2016 10:42-0400 BP Diastolic 80 mm[Hg] Yenifer Esquivel RN [facility] Work Phone: Comment on above: Patient Position: Sitting; Cuff Location : Left Arm; Cuff Size: Large 01-27-2016 10:42-0400 BP Systolic 136 mm[Hg] Yenifer Esquivel RN [facility] Work Phone: Comment on above: Patient Position: Sitting; Cuff Location : Left Arm; Cuff Size: Large 01-27-2016 10:42-0400 BSA (Body Surface Area) 2.23 m2 Yenifer Esquivel RN [facility] Work Phone: 01-27-2016 10:42-0400 Height 180.34 cm Yenifer Esquivel RN [facility] Work Phone: 01-27-2016 10:42-0400 Pulse (Heart Rate) 69 /min Yenifer Esquivel RN [facility] Work Phone: Comment on above: Pattern: Regular 01-27-2016 10:42-0400 Pulse Oximetry 97 % Jazlynconcetta Zayas [facility] Work Phone: Comment on above: Room air 01-27-2016 10:42-0400 Respiratory Rate 18 /min Yenifer Esquivel RN [facility] Work Phone: Comment on above: Pattern: Unlabored 01-27-2016 10:42-0400 SaO2% (BldA) [Mass fraction] 97 % Yenifer Esquivel RN [facility] Work Phone: Comment on above: Room air 01-27-2016 10:42-0400 Weight 103.08 kg Jazlyn Zayas [facility] Work Phone: 06-03-2015 11:55-0500 BMI (Body Mass Index) 31.03 kg/m2 Yenifer Esquivel RN [facility] Work Phone: 06-03-2015 11:55-0500 Body weight 100.93 kg Yenifer Esquivel RN [facility] Work Phone: 06-03-2015 11:55-0500 BP Diastolic 82 mm[Hg] Yenifer Esquivel RN [facility] Work Phone: Comment on above: Patient Position: Sitting; Cuff Location : Left Arm; Cuff Size: Large 06-03-2015 11:55-0500 BP Systolic 120 mm[Hg] Yenifer Esquivel RN [facility] Work Phone: Comment on above: Patient Position: Sitting; Cuff Location : Left Arm; Cuff Size: Large 06-03-2015 11:55-0500 BSA (Body Surface Area) 2.21 m2 Yenifer Esquivel RN [facility] Work Phone: 06-03-2015 11:55-0500 Height 180.34 cm Yenifer Esquivel RN [facility] Work Phone: 06-03-2015 11:55-0500 Pulse (Heart Rate) 52 /min Yenifer Esquivel RN [facility] Work Phone: Comment on above: Pattern: Regular 06-03-2015 11:55-0500 Pulse Oximetry 98 % Jazlyn Zayas [facility] Work Phone: Comment on above: Room air 06-03-2015 11:55-0500 Respiratory Rate 18 /min Yenifer Esquivel RN [facility] Work Phone: Comment on above: Pattern: Unlabored 06-03-2015 11:55-0500 SaO2% (BldA) [Mass fraction] 98 % Yenifer Esquivel RN [facility] Work Phone: Comment on above: Room air 06-03-2015 11:55-0500 Weight 100.93 kg Jazlyn Zayas [facility] Work Phone: 12-01-2014 09:26-0400 BMI (Body Mass Index) 30.88 kg/m2 Yenifer Esquivel RN [facility] Work Phone: 12-01-2014 09:26-0400 Body Temperature 97.6 [degF] Yenifer Esquivel RN [facility] Work Phone: Comment on above: Method: Oral 12-01-2014 09:26-0400 Body weight 100.42 kg Yenifer Esquivel RN [facility] Work Phone: 12-01-2014 09:26-0400 BP Diastolic 78 mm[Hg] Yenifer Esquivel RN [facility] Work Phone: 12-01-2014 09:26-0400 BP Systolic 120 mm[Hg] Yenifer Esquivel RN [facility] Work Phone: 12-01-2014 09:26-0400 BSA (Body Surface Area) 2.2 m2 Yenifer Esquivel RN [facility] Work Phone: 12-01-2014 09:26-0400 Height 180.34 cm Yenifer Esquivel RN [facility] Work Phone: 12-01-2014 09:26-0400 Pulse (Heart Rate) 72 /min Yenifer Esquivel RN [facility] Work Phone: Comment on above: Pattern: Regular 12-01-2014 09:26-0400 Pulse Oximetry 96 % Jazlyn Zayas [facility] Work Phone: Comment on above: Room air 12-01-2014 09:26-0400 Respiratory Rate 20 /min Yenifer Esquivel RN [facility] Work Phone: Comment on above: Pattern: Unlabored 12-01-2014 09:26-0400 SaO2% (BldA) [Mass fraction] 96 % Yenifer Esquivel RN [facility] Work Phone: Comment on above: Room air 12-01-2014 09:26-0400 Weight 100.42 kg Jazlyn Zayas [facility] Work Phone: 07-08-2014 07:49-0500 BMI (Body Mass Index) 31.12 kg/m2 Yenifer Esquivel RN [facility] Work Phone: 07-08-2014 07:49-0500 Body weight 101.21 kg Yenifer Esquivel RN [facility] Work Phone: 07-08-2014 07:49-0500 BP Diastolic 78 mm[Hg] Yenifer Esquivel RN [facility] Work Phone: Comment on above: Patient Position: Sitting; Cuff Location : Left Arm; Cuff Size: Large 07-08-2014 07:49-0500 BP Systolic 124 mm[Hg] Yenifer Esquivel RN [facility] Work Phone: Comment on above: Patient Position: Sitting; Cuff Location : Left Arm; Cuff Size: Large 07-08-2014 07:49-0500 BSA (Body Surface Area) 2.21 m2 Yenifer Esquivel RN [facility] Work Phone: 07-08-2014 07:49-0500 Height 180.34 cm Yenifer Esquivel RN [facility] Work Phone: 07-08-2014 07:49-0500 Pulse (Heart Rate) 66 /min Yenifer Esquivel RN [facility] Work Phone: Comment on above: Pattern: Regular 07-08-2014 07:49-0500 Pulse Oximetry 97 % Jazlyn Zayas [facility] Work Phone: Comment on above: Room air 07-08-2014 07:49-0500 Respiratory Rate 18 /min Yenifer Esquivel RN [facility] Work Phone: Comment on above: Pattern: Unlabored 07-08-2014 07:49-0500 SaO2% (BldA) [Mass fraction] 97 % Yenifer Esquivel RN [facility] Work Phone: Comment on above: Room air 07-08-2014 07:49-0500 Weight 101.21 kg Jazlyn Zayas [facility] Work Phone: 12-09-2013 10:26-0400 BMI (Body Mass Index) 31.32 kg/m2 Suzanne Monterroso [facility] Work Phone: 12-09-2013 10:-040 Body Temperature 96.8 [degF] Suzanne Singh [facility] Work Phone: Comment on above: Method: Oral 12-09-2013 10: Body weight 101.86 kg Suzanne Singh [facility] Work Phone: 12-09-2013 10:0400 BP Diastolic 64 mm[Hg] Suzanne Singh [facility] Work Phone: Comment on above: Patient Position: Sitting; Cuff Location : Left Arm; Cuff Size: Standard 12-09-2013 10:260400 BP Systolic 96 mm[Hg] Suzanne Singh [facility] Work Phone: Comment on above: Patient Position: Sitting; Cuff Location : Left Arm; Cuff Size: Standard 12-09-2013 10:0400 BSA (Body Surface Area) 2.22 m2 Suzanne Singh [facility] Work Phone: 12-09-2013 10:040 Height 180.34 cm Suzanne Singh [facility] Work Phone: 12-09-2013 10:260400 Pulse (Heart Rate) 54 /min Suzanne Singh [facility] Work Phone: Comment on above: Pattern: Regular 12-09-2013 10:0400 Pulse Oximetry 98 % Jazlyn Hawleyon [facility] Work Phone: Comment on above: Room air 12-09-2013 10:-0400 Respiratory Rate 18 /min Suzanne Singh [facility] Work Phone: Comment on above: Pattern: Unlabored 12-09-2013 10:26-0400 SaO2% (BldA) [Mass fraction] 98 % Suzanne Singh [facility] Work Phone: Comment on above: Room air 12-09-2013 10:26-0400 Weight 101.86 kg Jazlyn Zayas [facility] Work Phone: 12-01-2013 08:25-0400 BMI (Body Mass Index) 32.09 kg/m2 Yenifer Esquivel RN [facility] Work Phone: 12-01-2013 08:25-0400 Body Temperature 95.7 [degF] Yenifer Esquivel RN [facility] Work Phone: Comment on above: Method: Oral 12-01-2013 08:25-0400 Body weight 104.36 kg Yenifer Esquivel RN [facility] Work Phone: 12-01-2013 08:25-0400 BP Diastolic 70 mm[Hg] Yenifer Esquivel RN [facility] Work Phone: Comment on above: Patient Position: Sitting; Cuff Location : Left Arm; Cuff Size: Large 12-01-2013 08:25-0400 BP Systolic 138 mm[Hg] Yenifer Esquivel RN [facility] Work Phone: Comment on above: Patient Position: Sitting; Cuff Location : Left Arm; Cuff Size: Large 12-01-2013 08:25-0400 BSA (Body Surface Area) 2.24 m2 Yenifer Esquivel RN [facility] Work Phone: 12-01-2013 08:25-0400 Height 180.34 cm Yenifer Esquivel RN [facility] Work Phone: 12-01-2013 08:25-0400 Pulse (Heart Rate) 71 /min Yenifer Esquivel RN [facility] Work Phone: Comment on above: Pattern: Regular 12-01-2013 08:25-0400 Pulse Oximetry 94 % Jazlyn Zayas [facility] Work Phone: Comment on above: Room air 12-01-2013 08:25-0400 Respiratory Rate 18 /min Yenifer Esquivel RN [facility] Work Phone: Comment on above: Pattern: Unlabored 12-01-2013 08:25-0400 SaO2% (BldA) [Mass fraction] 94 % Yenifer Esquivel RN [facility] Work Phone: Comment on above: Room air 12-01-2013 08:25-0400 Weight 104.36 kg Jazlyn Zayas [facility] Work Phone: 11-03-2013 11:47-0400 BMI (Body Mass Index) 32.22 kg/m2 Yenifer Esquivel RN [facility] Work Phone: 11-03-2013 11:47-0400 Body Temperature 96.8 [degF] Yenifer Esquivel RN [facility] Work Phone: Comment on above: Method: Oral 11-03-2013 11:47-0400 Body weight 104.78 kg Yenifer Esquivel RN [facility] Work Phone: 11-03-2013 11:47-0400 BP Diastolic 78 mm[Hg] Yenifer Esquivel RN [facility] Work Phone: Comment on above: Patient Position: Sitting; Cuff Location : Left Arm; Cuff Size: Large 11-03-2013 11:47-0400 BP Systolic 122 mm[Hg] Yenifer Esquivel RN [facility] Work Phone: Comment on above: Patient Position: Sitting; Cuff Location : Left Arm; Cuff Size: Large 11-03-2013 11:47-0400 BSA (Body Surface Area) 2.24 m2 Yenifer Esquivel RN [facility] Work Phone: 11-03-2013 11:47-0400 Height 180.34 cm Yenifer Esquivel RN [facility] Work Phone: 11-03-2013 11:47-0400 Pulse (Heart Rate) 58 /min Yenifer Esquivel RN [facility] Work Phone: Comment on above: Pattern: Regular 11-03-2013 11:47-0400 Pulse Oximetry 96 % Jazlyn Zayas [facility] Work Phone: Comment on above: Room air 11-03-2013 11:47-0400 Respiratory Rate 20 /min Yenifer Esquivel RN [facility] Work Phone: Comment on above: Pattern: Unlabored 11-03-2013 11:47-0400 SaO2% (BldA) [Mass fraction] 96 % Yenifer Esquivel RN [facility] Work Phone: Comment on above: Room air 11-03-2013 11:47-0400 Weight 104.78 kg Jazlyn Zayas [facility] Work Phone: 10-21-2013 13:16-0400 BMI (Body Mass Index) 32.01 kg/m2 Jazlyn Monterroso [facility] Internal Medicine Work Phone: 10-21-2013 13:16-0400 Body Temperature 98.6 [degF] Jazlyn Zayas [facility] Work Phone: Comment on above: Method: Oral 10-21-2013 13:16-0400 Body weight 104.1 kg Jazlyn Zayas [facility] Work Phone: 10-21-2013 13:16-0400 BP Diastolic 84 mm[Hg] Jazlyn Zayas [facility] Work Phone: Comment on above: Patient Position: Sitting; Cuff Location : Left Arm; Cuff Size: Standard 10-21-2013 13:16-0400 BP Systolic 128 mm[Hg] Jazlyn Zayas [facility] Work Phone: Comment on above: Patient Position: Sitting; Cuff Location : Left Arm; Cuff Size: Standard 10-21-2013 13:16-0400 BSA (Body Surface Area) 2.24 m2 Jazlyn Zayas [facility] Work Phone: 10-21-2013 13:16-0400 Height 180.34 cm Jazlyn Zayas [facility] Work Phone: 10-21-2013 13:16-0400 Pulse (Heart Rate) 70 /min Jazlyn Zayas [facility] Work Phone: Comment on above: Pattern: Regular 10-21-2013 13:16-0400 Pulse Oximetry 97 % Jazlyn Zayas [facility] Work Phone: Comment on above: Room air 10-21-2013 13:16-0400 Respiratory Rate 17 /min Jazlyn Zayas [facility] Work Phone: 10-21-2013 13:16-0400 SaO2% (BldA) [Mass fraction] 97 % Jazlyn Zayas DO Work Phone: [facility] Work Phone: Comment on above: Room air 10-21-2013 13:16-0400 Weight 104.1 kg Jazlyn Zayas [facility] Internal [facility] Work Phone: 12-11-2011 12:21-0400 BMI (Body Mass Index) 31.52 kg/m2 Shanthi Manzanoen [facility] Internal Medicine Work Phone: 12-11-2011 12:21-0400 Body Temperature 96.4 [degF] Shanthi Hong [facility] Internal Medicine Work Phone: 12-11-2011 [id number] Body weight 102.51 kg Shanthi Hong [facility] Internal Medicine Work Phone: 12-11-2011 12:21-0400 BP Diastolic 86 mm[Hg] Shanthi Hong [facility] Internal Medicine Work Phone: Comment on above: Patient Position: Sitting; Cuff Location : Left Arm; Cuff Size: Large 12-11-2011 12:21-0400 BP Systolic 124 mm[Hg] Shanthi Hong [facility] Internal Medicine Work Phone: Comment on above: Patient Position: Sitting; Cuff Location : Left Arm; Cuff Size: Large 12-11-2011 [id number] BSA (Body Surface Area) 2.22 m2 Shanthi Hong [facility] Internal Medicine Work Phone: 12-11-2011 12:21-0400 Height 180.34 cm Shanthi Hong [facility] Internal Medicine Work Phone: 12-11-2011 12:21-0400 Pulse (Heart Rate) 72 /min Shanthi Manzanoensiv e Internal Medicine Work Phone: Comment on above: Pattern: Regular 12-11-2011 12:21-0400 Respiratory Rate 18 /min Shanthi Hong [facility] Internal Medicine Work Phone: Comment on above: Pattern: Unlabored 12-11-2011 12:21-0400 Weight 102.51 kg Jazlyn Zayas [facility] Work Phone: 08-17-2011 09:20-0500 BMI (Body Mass Index) 30.68 kg/m2 Yenifer Esquivel RN [facility] Work Phone: 08-17-2011 09:20-0500 Body Temperature 97.6 [degF] Yenifer Esquivel RN [facility] Work Phone: Comment on above: Method: Oral 08-17-2011 09:20-0500 Body weight 99.79 kg Yenifer Esquivel RN [facility] Work Phone: 08-17-2011 09:20-0500 BP Diastolic 82 mm[Hg] Yenifer Esquivel RN [facility] Work Phone: Comment on above: Patient Position: Sitting; Cuff Location : Left Arm; Cuff Size: Large 08-17-2011 09:20-0500 BP Systolic 118 mm[Hg] Yenifer Esquivel RN [facility] Work Phone: Comment on above: Patient Position: Sitting; Cuff Location : Left Arm; Cuff Size: Large 08-17-2011 09:20-0500 BSA (Body Surface Area) 2.2 m2 Yenifer Esquivel RN [facility] Work Phone: 08-17-2011 09:20-0500 Height 180.34 cm Yenifer Esquivel RN [facility] Work Phone: 08-17-2011 09:20-0500 Pulse (Heart Rate) 88 /min Yenifer Esquivel RN [facility] Work Phone: Comment on above: Pattern: Regular 08-17-2011 09:20-0500 Respiratory Rate 20 /min Yenifer Esquivel RN [facility] Work Phone: Comment on above: Pattern: Unlabored 08-17-2011 09:20-0500 Weight 99.79 kg Jazlyn Zayas [facility] Work Phone: 03-27-2011 08:03-0400 BMI (Body Mass Index) 33.41 kg/m2 Yenifer Esquivel RN [facility] Work Phone: 03-27-2011 08:03-0400 Body Temperature 97.7 [degF] Yenifer Esquivel RN [facility] Work Phone: Comment on above: Method: Oral 03-27-2011 08:03-0400 Body weight 108.67 kg Yenifer Esquivel RN [facility] Work Phone: 03-27-2011 08:03-0400 BP Diastolic 82 mm[Hg] Yenifer Esquivel RN [facility] Work Phone: Comment on above: Patient Position: Sitting; Cuff Location : Left Arm; Cuff Size: Large 03-27-2011 08:03-0400 BP Systolic 122 mm[Hg] Yenifer Esquivel RN [facility] Work Phone: Comment on above: Patient Position: Sitting; Cuff Location : Left Arm; Cuff Size: Large 03-27-2011 08:03-0400 BSA (Body Surface Area) 2.28 m2 Yenifer Esquivel RN [facility] Work Phone: 03-27-2011 08:03-0400 Height 180.34 cm Yenifer Esquivel RN [facility] Work Phone: 03-27-2011 08:03-0400 Pulse (Heart Rate) 80 /min Yenifer Esquivel RN [facility] Work Phone: Comment on above: Pattern: Regular 03-27-2011 08:03-0400 Respiratory Rate 18 /min Yenifer Esquivel RN [facility] Work Phone: Comment on above: Pattern: Unlabored 03-27-2011 08:03-0400 Weight 108.67 kg Jazlyn Zayas [facility] Work Phone: 09-24-2007 11:36-0500 BMI (Body Mass Index) 30.13 kg/m2 Yenifer Esquivel RN [facility] Work Phone: 09-24-2007 11:36-0500 Body Temperature 98.4 [degF] Yenifer Esquivel RN [facility] Work Phone: Comment on above: Method: Oral 09-24-2007 11:36-0500 Body weight 97.98 kg Yenifer Esquivel RN [facility] Work Phone: 09-24-2007 11:36-0500 BP Diastolic 68 mm[Hg] Yenifer Esquivel RN [facility] Work Phone: Comment on above: Patient Position: Sitting; Cuff Location : Left Arm; Cuff Size: Large 09-24-2007 11:36-0500 BP Systolic 122 mm[Hg] Yenifer Esquivel RN [facility] Work Phone: Comment on above: Patient Position: Sitting; Cuff Location : Left Arm; Cuff Size: Large 09-24-2007 11:36-0500 BSA (Body Surface Area) 2.18 m2 Yenifer Esquivel RN [facility] Work Phone: 09-24-2007 11:36-0500 Head Circumference 0 cm Jazlyn Hawleyon [facility] Work Phone: 09-24-2007 11:36-0500 Head Occipital-frontal circumference 0 cm Yenifer Esquivel RN [facility] Work Phone: 09-24-2007 11:36-0500 Height 180.34 cm Yenifer Esquivel RN [facility] Work Phone: 09-24-2007 11:36-0500 Pulse (Heart Rate) 88 /min Yenifer Esquivel RN [facility] Work Phone: Comment on above: Pattern: Regular 09-24-2007 11:36-0500 Respiratory Rate 20 /min Yenifer Esquivel RN [facility] Work Phone: Comment on above: Pattern: Unlabored 09-24-2007 11:36-0500 Weight 97.98 kg Jazlyn Zayas [facility] Internal Medicine Work Phone: 01-10-2007 13:00-0400 Body Temperature 97.9 [degF] Shanthi Hong [facility] Internal Medicine Work Phone: Comment on above: Method: Oral 01-10-2007 13:00-0400 Body weight 0 kg Shanthi Hong [facility] Internal Medicine Work Phone: 01-10-2007 13:00-0400 BP Diastolic 74 mm[Hg] Shanthi Hong [facility] Internal Medicine Work Phone: Comment on above: Patient Position: Sitting; Cuff Location : Left Arm; Cuff Size: Large 01-10-2007 13:00-0400 BP Systolic 128 mm[Hg] Shanthi Hong [facility] Internal Medicine Work Phone: Comment on above: Patient Position: Sitting; Cuff Location : Left Arm; Cuff Size: Large 01-10-2007 13:00-0400 Head Circumference 0 cm Jazlyn Zayas [facility] Internal Medicine Work Phone: 01-10-2007 13:00-0400 Head Occipital-frontal circumference 0 cm Shanthi Hal [facility] Internal Medicine Work Phone: 01-10-2007 13:00-0400 Height 0 cm Shanthi Hal [facility] Internal Medicine Work Phone: 01-10-2007 13:00-0400 Pulse (Heart Rate) 104 /min Shanthi Hal [facility] Internal Medicine Work Phone: Comment on above: Pattern: Regular 01-10-2007 13:00-0400 Respiratory Rate 20 /min Shanthi Hong [facility] Internal Medicine Work Phone: Comment on above: Pattern: Unlabored 01-10-2007 13:00-0400 Weight 0 kg Jazlyn Zayas [facility] Internal Medicine Work Phone: 08-20-2006 14:43-0500 Body Temperature 97.6 [degF] Makenna Randall [facility] Internal Medicine Work Phone: Comment on above: Method: Undefined 08-20-2006 14:43-0500 Body weight 0 kg Makenna Randall DIETETIC INTERN [facility] Internal Medicine Work Phone: 08-20-2006 14:43-0500 BP Diastolic 70 mm[Hg] Makenna Randall [facility] Internal Medicine Work Phone: Comment on above: Patient Position: Sitting; Cuff Location : Left Arm; Cuff Size: Standard 08-20-2006 14:43-0500 BP Systolic 110 mm[Hg] Makenna Randall [facility] Internal Medicine Work Phone: Comment on above: Patient Position: Sitting; Cuff Location : Left Arm; Cuff Size: Standard 08-20-2006 14:43-0500 Head Circumference 0 cm Jazlyn Zayas [facility] Internal Medicine Work Phone: 08-20-2006 14:43-0500 Head Occipital-frontal circumference 0 cm Makenna Prakash [facility] Internal Medicine Work Phone: 08-20-2006 14:43-0500 Height 0 cm Makenna Randall LPN [facility] Internal Medicine Work Phone: 08-20-2006 14:43-0500 Pulse (Heart Rate) 80 /min Makenna Randall DIETETIC INTERN [facility] Internal Medicine Work Phone: Comment on above: Pattern: Regular 08-20-2006 14:43-0500 Respiratory Rate 16 /min Makenna Randall DIETETIC INTERN [facility] Internal Medicine Work Phone: Comment on above: Pattern: Undefined 08-20-2006 14:43-0500 Weight 0 kg Jazlyn Hawleyon [facility] Internal Medicine Work Phone: 08-12-2006 11:51-0500 BMI (Body Mass Index) 30.13 kg/m2 Maribeth Sanchez RN [facility] Internal Medicine Work Phone: 08-12-2006 11:51-0500 Body Temperature 98.2 [degF] Maribeth Sanchez RN [facility] Internal Medicine Work Phone: Comment on above: Method: Oral 08-12-2006 11:51-0500 Body weight 97.98 kg Maribeth Sanchez RN [facility] Internal Medicine Work Phone: 08-12-2006 11:51-0500 BP Diastolic 86 mm[Hg] Maribeth Sanchez RN [facility] Internal Medicine Work Phone: Comment on above: Patient Position: Sitting; Cuff Location : Left Arm; Cuff Size: Standard 08-12-2006 11:51-0500 BP Systolic 140 mm[Hg] Maribeth Sanchez RN [facility] Internal Medicine Work Phone: Comment on above: Patient Position: Sitting; Cuff Location : Left Arm; Cuff Size: Standard 08-12-2006 11:51-0500 BSA (Body Surface Area) 2.18 m2 Maribeth Sanchez RN [facility] Internal Medicine Work Phone: 08-12-2006 11:51-0500 Head Circumference 0 cm Jazlyn Jose Manuel [facility] Internal Medicine Work Phone: 08-12-2006 11:51-0500 Head Occipital-frontal circumference 0 cm Maribeth Sanchez RN [facility] Work Phone: 08-12-2006 11:51-0500 Height 180.34 cm Maribeth Sanchez RN [facility] Work Phone: 08-12-2006 11:51-0500 Pulse (Heart Rate) 80 /min Maribeth Sanchez RN [facility] Work Phone: Comment on above: Pattern: Regular 08-12-2006 11:51-0500 Respiratory Rate 16 /min Maribeth Sanchez RN [facility] Work Phone: Comment on above: Pattern: Unlabored 08-12-2006 11:51-0500 Weight 97.98 kg Jazlyn Zayas [facility] Work Phone: Encounters Encounter Date Encounter Type Care Provider Facility Start: 02-16-2025 ambulatory Liliana DC Facility:[facility] Start: 01-20-2025 End: 01-20-2025 Patient encounter procedure Liliana DC -[facility] Work Phone: Start: 01-20-2025 End: 01-20-[address] Jazlyn Zayas DO Work Phone: [facility] Work Phone: Start: 12-29-2024 End: 12-29-2024 Patient encounter procedure Clinton Reed [facility] -[facility] Work Phone: Start: 12-29-2024 End: 12-29-[address] Jazlyn Zayas DO Work Phone: [facility] Work Phone: Start: 09-25-2024 End: 09-25-2024 Patient encounter procedure Mau Rodriguez PA -[facility] Work Phone: Start: 09-25-2024 End: 09-25-[address] Jazlyn Zayas DO Work Phone: [facility] Work Phone: Start: 09-25-2024 End: 09-25-2024 ambulatory Mau CD Facility:[facility] Start: 08-25-2024 End: 08-25-2024 Patient encounter procedure Liliana DC -[facility] Work Phone: Start: 08-25-2024 End: 08-25-2024 ambulatory Liliana [place] Start: 08-25-2024 End: 08-25-2024 ambulatory Liliana DC Facility:[facility] Start: 07-20-2024 End: 07-20-2024 Patient encounter procedure Clinton DC -[facility] Work Phone: Start: 07-20-2024 End: 07-20-2024 ambulatory Clinton DC Facility[place] Start: 04-10-2024 End: 04-10-2024 ambulatory Liliana DC Facility:[facility] Start: 12-07-2023 Non-patient / Non-visit Dr. Johnny Zayas Work Phone: [facility] Work Phone: Start: 12-06-2023 Non-patient / Non-visit Dr. Johnny Zayas Work Phone: [facility] Work Phone: Start: 12-05-2023 Non-patient / Non-visit Dr. Johnny Zayas Work Phone: [facility] Work Phone: Start: 12-04-2023 Non-patient / Non-visit Dr. Johnny Zayas Work Phone: [facility] Work Phone: Start: 12-03-2023 End: 12-07-2023 Evaluation and management of inpatient Dr. Jazlyn Zayas Work Phone: [facility]Medical Surgical 3 Work Phone: Start: 12-03-2023 End: 12-07-[address] Jazlyn Zayas Work Phone: [facility] Work Phone: Start: 12-03-2023 Non-patient / Non-visit Dr. Johnny Zayas Work Phone: [facility] Work Phone: Start: 09-23-2023 Non-patient / Non-visit Dr. Johnny Zayas Work Phone: [facility] Start: 09-23-2023 End: 09-23-[address] Jazlyn Zayas Work Phone: [facility] Work Phone: Start: 09-23-2023 End: 09-23-[address] Jazlyn Zayas Work Phone: [facility]-Cardiovascular Services Work Phone: Start: 09-19-2023 End: 09-19-[address] Jazlyn Zayas Work Phone: [facility]-Cat Scan, [facility] Work Phone: Start: 09-10-2023 End: 09-10-2023 ambulatory [facility] Work Phone: Start: 09-10-2023 End: 09-10-2023 Patient encounter procedure [facility]Laboratory, Specimen Work Phone: Start: 03-22-2023 End: 03-22-2023 Office outpatient visit 15 minutes Jazlyn Zayas DO Work Phone: [facility] Start: 03-22-2023 Review Jazlyn farrar DO Work Phone: [facility] Start: 01-28-2023 End: 02-25-[address] Jazlyn Zayas Work Phone: [facility] Work Phone: Start: 01-28-2023 End: 02-25-[address] Jazlyn Zayas Work Phone: [facility]-Cardiac Rehab Work Phone: Start: 01-23-2023 End: 01-23-2023 Postop follow up visit related to original px Phillip Jo DIE SINKER APPRENTICE - EXPERIMENTAL WELDER Work Phone: [facility] Comment on above: S/P CABG (coronary a rtery bypass graft) (Primary Dx) Start: 01-21-2023 End: 01-21-[address] Jazlyn Zayas Work Phone: [facility] Work Phone: Start: 01-21-2023 End: 01-21-[address] Jazlyn Zayas Work Phone: [facility]Card[facility] Work Phone: Start: 01-21-2023 End: 01-21-[address] Jazlyn Zayas Work Phone: [facility] Work Phone: Start: 01-04-2023 Non-patient / Non-visit Dr. Johnny Zayas Work Phone: [facility] Start: 01-02-2023 End: 01-02-2023 Postop follow up visit related to original px Phillip Jo DIE SINKER APPRENTICE - EXPERIMENTAL WELDER Work Phone: [facility] Comment on above: S/P CABG (coronary a rtery bypass graft) (Primary Dx) Start: 12-30-2022 ambulatory Amelie Campos Clinical Communication Start: 12-30-2022 Patient encounter procedure Amelie Campos Clinical Communication Start: 12-30-2022 Telephone encounter Amelie Campos Clinical Communication Comment on above: page Start: 12-28-2022 End: 12-28-2022 Phone Encounter Jazlyn Zayas DO Work Phone: [facility] Start: 12-18-2022 Evaluation and management of inpatient [facility] Start: 12-18-2022 Telephone encounter Humza tong MD Work Phone: [facility] Comment on above: Prior Authorization Start: 12-18-2022 End: 12-25-2022 Evaluation and management of inpatient Consuelo Bonner DO Work Phone: [facility] Comment on above: S/P CABG (coronary a rtery bypass graft) (Primary Dx); CAD in [place] artery Start: 12-18-2022 Non-patient / Non-visit Dr. Johnny Zayas Work Phone: [facility] Work Phone: Start: 12-18-2022 Non-patient / Non-visit Dr. Johnny Zayas Work Phone: [facility] Start: 12-17-2022 Non-patient / Non-visit Dr. Johnny Zayas Work Phone: [facility] Start: 12-17-2022 End: 12-18-2022 Evaluation and management of inpatient Dr. Jazlyn Zayas Work Phone: [facility] Work Phone: Start: 10-22-2022 End: 10-22-[address] Jazlyn Zayas Work Phone: [facility] Work Phone: Start: 10-22-2022 End: 10-22-[address] Jazlyn Zayas Work Phone: [facility] Start: 08-17-2022 End: 08-17-[address] Jazlyn Zayas Work Phone: [facility] Work Phone: Start: 08-17-2022 End: 08-17-[address] Jazlyn Zayas Work Phone: [facility] Start: 08-06-2022 End: 08-06-[address] Jazlyn Zayas Work Phone: [facility] Start: 05-03-2022 End: 05-03-2022 Office outpatient visit 25 minutes Jazlyn Zayas DO Work Phone: [facility] Start: 05-03-2022 Review Jazlyn farrar DO Work Phone: [facility] Start: 05-01-2022 End: 05-01-[address] Jazlyn Zayas Work Phone: [facility] Work Phone: Start: 05-01-2022 End: 05-01-[address] [facility] Start: 04-29-2022 End: 04-29-2022 Annotation/Addendum Jazlyn Zayas DO Work Phone: [facility] Start: 03-13-2022 End: 03-13-[address] Jazlyn Zayas Work Phone: [facility] Start: 02-10-2022 End: 02-10-2022 Patient encounter procedure [facility] Start: 2022 End: 02-01-2022 Office outpatient visit 25 minutes Jazlyn Zayas DO Work Phone: [facility] Start: 01-29-2022 End: 01-29-2022 Emergency department patient visit [facility] Start: 12-26-2021 End: 12-26-2021 Phone Encounter Jazlyn Zayas DO Work Phone: [facility] Start: 10-26-2021 End: 10-26-2021 Office outpatient visit 25 minutes Jazlyn Zayas DO Work Phone: [facility] Start: 10-17-2021 End: 10-17-[address] Jazlyn Zayas Work Phone: [facility] Start: 08-29-2021 End: 08-29-2021 Office outpatient visit 10 minutes Jazlyn Jose Manuel DO Work Phone: [facility] Start: 08-17-2021 End: 08-17-[address] [facility] Start: 08-14-2021 End: 08-14-[address] Jazlyn Zayas Work Phone: [facility] Start: 07-12-2021 End: 07-12-[address] Jazlyn Zayas Work Phone: [facility] Start: 05-04-2021 End: 05-04-2021 Patient encounter procedure Amina Elam LPN [facility]; [facility] Work Phone: Start: 05-04-2021 End: 05-04-2021 Periodic preventive med est patient 65yrs& older Jazlyn Jose Manuel DO Work Phone: [facility] Start: 04-14-2021 End: 04-14-2021 Office outpatient visit 25 minutes Jazlyn Jose Manuel DO Work Phone: [facility] Start: 04-14-2021 End: 04-14-2021 Patient encounter status Jazlyn Jose Manuel DO Work Phone: [facility] Start: 03-24-2021 End: 03-24-2021 Phone Encounter Jazlyn Jose Manuel DO Work Phone: [facility] Start: 03-23-2021 Review Jazlyn Hawleyo n DO Work Phone: [facility] Start: 10-20-2020 End: 10-20-2020 Office outpatient visit 15 minutes Jazlyn Zayas [facility] Start: 10-12-2020 End: 10-12-2020 Office outpatient visit 15 minutes Jazlyn Zayas [facility] Start: 02-25-[address] Allen Zayas Work Phone: [facility] Start: 02-06-2019 End: 02-06-2019 Office outpatient visit 10 minutes Jazlyn Zayas [facility] Start: 01-19-2019 End: 01-19-2019 Office outpatient visit 15 minutes Jazlyn Zayas [facility] Start: 12-11-2018 End: 12-11-2018 Phone Encounter Jazlyn Zayas [facility] [employer] [facility] Start: 11-26-2018 End: 11-26-2018 Office outpatient visit 15 minutes Jazlyn Zayas [facility] Start: 11-04-2018 Patient encounter procedure Jazlyn Zayas [facility] Start: 11-04-2018 End: 11-04-2018 Office outpatient visit 25 minutes Jazlyn Zayas [facility] Start: 10-10-2018 End: 10-10-2018 Phone Encounter Jazlyn Zayas [facility] [employer] [facility] Start: 10-09-2018 End: 10-10-2018 Office outpatient visit 25 minutes Jazlyn Zayas [facility] Start: 10-09-2018 Review Jazlyn Zayas [facility]preh [facility] Internal Medicine Start: 09-05-2017 End: 09-05-2017 Phone Encounter Jazlyn Zayas [facility] [employer] [facility] Start: 08-26-2017 End: 08-26-2017 Office outpatient visit 25 minutes Jazlyn Zayas [facility] Start: 12-06-2016 End: 12-06-2016 Office outpatient visit 10 minutes Jazlyn Zayas [facility] Start: 02-10-2016 End: 02-10-2016 Patient encounter procedure Jazlyn Zayas DO Work Phone: [facility] Start: 02-10-2016 End: 02-10-2016 Periodic preventive med est patient 65yrs& older Jazlyn Zayas [facility] Start: 02-02-2016 End: 02-02-2016 Phone Encounter Jazlyn Zayas [facility] [employer] [facility] Start: 01-27-2016 End: 01-27-2016 Office outpatient visit 25 minutes Jazlyn Zayas [facility] Start: 06-06-2015 End: 06-06-2015 Phone Encounter Jazlyn Zayas [facility] [employer] [facility] Start: 06-03-2015 End: 06-03-2015 Office outpatient visit 25 minutes Jazlyn Zayas [facility] Start: 02-28-2015 End: 02-28-2015 Phone Encounter Jazlyn Jose Manuel [facility] [employer] al Medicine Start: 12-01-2014 End: 12-01-2014 Office outpatient visit 15 minutes Jazlyn Zayas [facility] Start: 07-08-2014 End: 07-08-2014 Office outpatient visit 25 minutes Jazlyn Zayas [facility] Start: 07-08-2014 End: 07-08-2014 Patient encounter procedure Jazlyn Zayas DO Work Phone: [facility] Start: 03-01-2014 End: 03-01-2014 Office outpatient visit 5 minutes Jazlyn Zayas [facility] Start: 12-09-2013 End: 12-09-2013 Patient encounter procedure Jazlyn Zayas [facility] Start: 12-01-2013 End: 12-01-2013 Patient encounter procedure Jazlyn Zayas [facility] Start: 11-03-2013 End: 11-03-2013 Patient encounter procedure Jazlyn Zayas [facility] Start: 10-21-2013 End: 10-21-2013 Patient encounter procedure Jazlyn Zayas [facility] Start: 12-11-2011 End: 12-25-2011 Patient encounter procedure Jazlyn Zayas [facility] Start: 08-17-2011 End: 08-17-2011 Patient encounter procedure Jazlyn Zayas [facility] Start: 04-03-2011 End: 04-09-2011 Phone Encounter Jazlyn Jose Manuel [facility] al Medicine Start: 03-27-2011 End: 03-27-2011 Patient encounter procedure Jazlyn Zayas [facility] Start: 09-25-2007 End: 09-25-2007 Error Encounter Jazlyn Zayas [facility] [employer] Medicine Start: 09-24-2007 End: 09-24-2007 Patient encounter procedure Jazlyn Zayas [facility] Start: 01-10-2007 End: 01-10-2007 Office outpatient visit 25 minutes Jazlyn Zayas [facility] Start: 08-20-2006 End: 08-20-2006 Office outpatient visit 15 minutes Jazlyn Zayas [facility] Internal Medicine Start: 08-12-2006 End: 08-12-2006 Office outpatient visit 15 minutes Jazlyn Zayas [facility] Start: 08-12-2006 End: 08-12-2006 Preprocedural examination done Jazlyn Zayas DO Work Phone: [facility] Start: 06-10-2006 End: 06-10-2006 Historical Summary Jazlyn Zayas [facility] Start: 04-02-2006 End: 04-03-2006 Historical Summary Jazlyn Zayas [facility] Patient encounter procedure Jodi Pierce [facility] Work Phone: Patient encounter procedure Ginette Arzate DIETETIC INTERN [facility]; [facility] Work Phone: Patient encounter procedure Amina Papa DIETETIC INTERN [facility]; [facility] Work Phone: Patient encounter procedure Heather Paz CMA [facility]; [facility] Work Phone: Patient encounter procedure Kenneth Melchor DIETETIC INTERN [facility]; [facility] Work Phone: Patient encounter procedure Amina Slarb DIETETIC INTERN [facility]; [facility] Work Phone: Patient encounter status Amina Tavonrb DIETETIC INTERN [facility]; [facility] Work Phone: Patient encounter status Ginette Arzate LP N [facility]; [facility] Work Phone: Patient encounter status Heather Bridges MA [facility]; [facility] Work Phone: Patient encounter status Kenneth Melchor DIETETIC INTERN [facility]; [facility] Work Phone: Patient encounter status Amina Papa [place] [facility]; [facility] Work Phone: End: 12-07-2008 Preprocedural examination done Windows Application Packager [facility] Work Phone: Comment on above: SEE C/C FOR DR. JUSTICE S Procedures Date Procedure Procedure Detail Performing Clinician Start: 09-25-2024 X-ray of chest, PA and lateral views Dr. Jazlyn Zayas DO Work Phone: Start: 12-03-2023 X-ray of chest posteroanterior view Dr. Jazlyn Zayas Work Phone: Start: 12-03-2023 CT cervical spine without contrast Dr. Jazlyn Zayas Work Phone: Start: 12-03-2023 CT of head without contrast Dr. Jazlyn Zayas Work Phone: Start: 12-03-2023 Radiography of thoracic spine Dr. Jazlyn Zayas Work Phone: Start: 09-19-2023 CT of head without contrast Dr. Jazlyn Zayas Work Phone: Start: 01-21-2023 End: 01-21-2023 CR - History AND Physical Procedure Note: See Note; NOTES: [facility] Cardiac Rehab [address] [place] [address] CR - History Physical MR#: [id number] Acct: [id number] Name: PAOLAJESUS ALBERTO Giancarlo Lopez Rep #: [id number] : 1940 82 From: Osmany Morales BS, RVT PCP: Dr. Jazlyn Zayas, DO DOS: 01/21/23 CR - History Physical - General Arrival date:: 01/21/23 Arrival time:: 14:11 Date of Referral:: 01/04/23 Date of CR Evaluation:: 01/21/23 Referring Physician: Dr. Ronnie Khan Primary Diagnosis: S/P CABG - History of Present Cardiac Event Onset Date: Enter Onset Date of cardiac illnesses in Comment field below Coronary Artery Bypass Graft:: Yes - 12/20/22 - Sleep Disorder Evaluation Hx of Sleep Apnea: Yes Do you snore loudly (louder than talking or can be heard through closed doors)?: Yes Do you often feel tired/ fatigued/ sleepy during daytime?: Yes Has anyone observed you stop breathing during sleep?: Yes History of Hypertension (for STOP score): Yes STOP Results: Positive - Medications Home Medications: Ambulatory Orders Medication Instructions Recorded cholecalciferol (vitamin D3) 50 2,000 unit PO DAILY SUPPLEMENT 10/10/18 mcg (2,000 unit) chewable tablet latanoprost 0.005 % eye drops 1 drp EACH EYE BID Check with 08/17/21 primary doctor ascorbic acid (vitamin C) 500 mg 500 mg PO DAILY 01/29/22 tablet (Vitamin C) zinc 10 mg tablet 10 mg PO DAILY supplement 01/29/22 aspirin 81 mg tablet,delayed 81 mg PO DAILY #90 tabs 01/21/23 release (Adult Aspirin Regimen) metoprolol tartrate 25 mg tablet 25 mg PO BID #180 tabs 01/21/23 ondansetron HCl 4 mg tablet 4 mg PO Q8H 01/21/23 pantoprazole 40 mg tablet,delayed 40 mg PO DAILY 01/21/23 release rosuvastatin 40 mg tablet 40 mg PO DAILY #90 tabs 01/21/23 - Allergies Allergies/Adverse Reactions: Allergies No Known Allergies Allergy (Verified 01/21/23 09:31) Advanced Directives - Advanced Directives Power of Scheduling Clerk: Yes Living Will: Yes Advance Directives Information Provided: Yes Advance Directives on File: Yes DNR Order?:: No Past Medical History - Covid-19 Screening 65 years or older:: Yes Has a serious heart condition:: Yes - Past Medical Illness Medical History: Past Medical History (Last Updated 01/21/23 @ 09:57 by Liliana DC, PA) Atherosclerotic heart disease of [place] coronary artery without angina pectoris I25.10 CKD (chronic kidney disease) stage 3, GFR 30-59 ml/min N18.3 COVID-19 Onset Date: 08/14/21 U07.1 Former smoker Z87.891 Glaucoma H40.9 History of tapeworm infection Z86.19 Hyperlipidemia E78.5 Macular degeneration of both eyes H35.30 Perforation of sigmoid colon due to diverticulitis K57.20 Prostate cancer C61 TIA (transient ischemic attack) Onset Date: 09/2018 G45.9 - Past Surgical History Surgical History: Past Surgical History (Last Updated 01/04/23 @ 12:26 by Marlene Arguelles) History of Achilles tendon repair Z98.890 History of appendectomy Z90.49 History of colonoscopy Onset Date: 2008 Z98.890 History of coronary artery stent placement Onset Date: 02/06/13 Z95.5 PCI-TAMEKA-Mid LAD 3.0 x 15 mm Resolute Integrity Stent 02/06/2013 History of laparoscopic cholecystectomy Z90.49 History of right inguinal hernia Z87.19 History of tonsillectomy Z90.89 S/P CABG x 4 Onset Date: 12/20/[address] Martinez at [facility] Surgical History: cholecystectomy, herniorrhaphy - RIH x 2 open, tonsillectomy, - - Remote PCI, Prostate CA seed insertion, L achilles repair, Deviated septum repair, cholecystectomy, tonsillectomy, hernia repair (RIH x 2 open). - Family History Summary Family History: Family History (Last Reviewed 12/17/22 @ 17:[address] Ronnie Khan MD) Mother Heart disease Father Heart disease CAD (coronary artery disease) COPD (chronic obstructive pulmonary disease) Social History - Smoking History Smoking Status: Former smoker - pipe Years Smokin - Alcohol Use Alcohol Usage: Yes - 3 beers once a week - Occupation Occupation (List type of work in comments):: Retired - Hobbies, Recreation, Social Activities Hobbies: Woodworking, Other - [employer], gardening Social Environment - Status Marital Status: - Current Living Arrangements Living Environment:: Spouse - Children How many children do you have?: 2 Do any of your children live nearby?: No - Safety Do you feel safe in your surroundings?: Yes - Assistance Do you need any assistance at home?: no Review of Systems - Review of Systems Hints: Right click = Denies (Slash). Left click = Reports (Silex) Review of Present Symptoms: Reports: Shortness of Breath with Exertion, Operative Discomfort, Dizziness/Lightheadedness, Fatigue, Appetite - Normal. Denies: Shortness of Breath at Rest, PVD, Angina, Wound Healing, Heart Arrhythmia/Irregularities, Appetite - Special Diet, Sleep - Normal, Sexual Changes - Pain Is Patient Pain Free?: No Pain Location: chest, back Pain Level: 08/07 Risk Factor Assessment - Vital Signs Pulse Ox: 96 - Pulse Pulse Rate: 68 - Hypertension How long have you been treated?: 2 months Blood Pressure Sitting - Right Arm: 121/76 - Obesity Height: 5 ft 11 in Weight:: 100.244 kg Weight in Pounds: 221.0 lbs Body Mass Index (BMI): 30.8 Nutritional Referral for Obesity: Yes - Physical Inactivity Physical Inactivity: Reg Exercise 30 min/day - Risk Stratification Risk Guidelines: Moderate Risk: Risk Factor for Smoking, Risk Factor for Dyslipidemia, Risk Factor for Diabetes, Risk Factor for Obesity, Risk Factor for Hypertension, Risk Factor for Sedentary Lifestyle, Risk Factor for Depression - Family History Family History: Family History (Last Reviewed 05/22/23 @ 17:[address] Ronnie Khan MD) Mother Heart disease Father Heart disease CAD (coronary artery disease) COPD (chronic obstructive pulmonary disease) Motivation - Motivation to Participate On a scale of 1 to 10, how prepared are you to commit to attending program?: 7 What do you see as barriers to successfully being able to complete the program?: nothing What do you see as the benefits of succesfully completing the program? In other words, what do you hope to get out of participating in the program?: more energy Are there issues you are dealing with that will interfere with completing the program?: no Do you have a spouse or signficant other, family or friends who will help support you to complete the program?: yes 01/21/23 1500 <Electronically signed by Osmany HOLLOWAY, RVT> Date Osmany HOLLOWAY RVT Outcome assessment reviewed. Exercise plan approved as documented. Treatment plan and goals support patient needs/abilities. Continue with current plan. I certify the patient demonstrates improvement and remains willing and capable of participation. the patient continues to benefit from cardiac rehab services/training. The patient may continue at current intensity, endurance and modality and progress per protocol. 01/21/23 1735 <Electronically signed by Ronnie Khan MD> Cosigner Signature: Date Ronnie Khan MD CC: Signed Jazlyn Zayas DO Work Phone: Start: 01-21-2023 End: 01-21-2023 Cardiology Visit Report Procedure Note: See Note; NOTES: [facility] [address] [place] [address] OFFICE VISIT Date of Service: 01/21/23 MR#: [id number] Acct: [id number] Name: JESUS ALBERTO GUEVARA Jr. Rep #: [id number] : 1940 Provider: DAO Cespedes Age/Sex: 82/M Location: [facility] [place] Status: Signed [facility] History of Present Illness Details: Jesus Alberto Guevara is an 82-year-old gentleman that presents here today for a hospital follow-up. He has a history of coronary artery disease with angioplasty and stenting to his LAD in 2012. He also has a history of TIA, hyperlipidemia, chronic kidney disease. Patient was admitted to [facility] patient was admitted to [facility] on December 17, 2022 with chest discomfort. He had a mildly elevated troponin. He did undergo a stress test which was felt to be abnormal. He then underwent a diagnostic stress test which demonstrated triple-vessel disease and he was transferred to [facility] for evaluation of bypass surgery. Patient underwent bypass surgery on December 20, [address] Nickerson. He did have postoperative atrial fibrillation and was treated with amiodarone. Patient's main concern is his upset stomach. He thinks it is related to his amiodarone. He has admitted to not taking this routinely because it does upset his stomach. He has not had any recurrence of his atrial fibrillation that he is aware of. He does not have any chest pain. He feels his exercise tolerance is returning. He does note that prior to his bypass surgery when looking back at things he has had more exercise fatigue. He does not have any worsening shortness of breath. He does not have any lightheadedness, dizziness, palpitations. He does not have any lower extremity edema. He feels his incision is healing well. He is supposed to start cardiac rehab after his physician appointment with the thoracic surgeon next week. He does have his interview today with cardiac rehab. Intake Vital Signs 12/17/22 03:10 01/21/23 08:39 Height 5 ft 11 in 5 ft 11 in Weight: 223 lb BMI 31.1 BP 129/83 H Blood Pressure Location Lt brachial Position Sitting Respiration 18 Pulse 67 Pulse Source Monitor Pulse Oximetry (%) 96 Intake Visit Reasons: [facility] Claims Adjustor Required: No Is patient in pain?: No Allergies No Known Allergies Allergy (Verified 01/21/23 09:31) Medications cholecalciferol (vitamin D3) 50 mcg (2,000 unit) chewable tablet 2,000 unit PO DAILY SUPPLEMENT 10/10/18 [History Confirmed 01/21/23] latanoprost 0.005 % eye drops 1 drp EACH EYE BID Check with primary doctor 08/17/21 [History Confirmed 01/21/23] ascorbic acid (vitamin C) 500 mg tablet (Vitamin C) 500 mg PO DAILY 01/29/22 [History Confirmed 01/21/23] zinc 10 mg tablet 10 mg PO DAILY supplement 01/29/22 [History Confirmed 01/21/23] aspirin 81 mg tablet,delayed release (Adult Aspirin Regimen) 81 mg PO DAILY #90 tabs 01/21/23 [Rx Confirmed 01/21/23] metoprolol tartrate 25 mg tablet 25 mg PO BID #180 tabs 01/21/23 [Rx Confirmed 01/21/23] ondansetron HCl 4 mg tablet 4 mg PO Q8H 01/21/23 [History Confirmed 01/21/23] pantoprazole 40 mg tablet,delayed release 40 mg PO DAILY 01/21/23 [History Confirmed 01/21/23] rosuvastatin 40 mg tablet 40 mg PO DAILY #90 tabs 01/21/23 [Rx Confirmed 01/21/23] PFS Medical History (Updated 01/21/23 @ 10:04 by Liliana DC, PA) Atherosclerotic heart disease of [place] coronary artery without angina pectoris CKD (chronic kidney disease) stage 3, GFR 30-59 ml/min COVID-19 (08/14/21) Former smoker Glaucoma History of tapeworm infection Hyperlipidemia Macular degeneration of both eyes Perforation of sigmoid colon due to diverticulitis Prostate cancer TIA (transient ischemic attack) (09/2018) Surgical History (Updated 01/04/23 @ 12:26 by Marlene Arguelles) History of Achilles tendon repair History of appendectomy History of colonoscopy (2008) History of coronary artery stent placement (02/06/13) History of laparoscopic cholecystectomy History of right inguinal hernia History of tonsillectomy 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 alcohol intake: current alcohol intake frequency: holidays/special occasions only substance use type: does not use ROS Const Const: Negative for fatigue, weakness, headache(s), frequent falls, difficulty sleeping or excessive sweating Eyes Eyes: Negative for loss of peripheral vision, transient loss of vision, blurry vision, double vision or tunnel vision ENT ENT: Negative for headache(s), dizziness, Nosebleed/epistaxis or balance problems Cardio Chest Pain: Yes Palpitations: No Edema: None Muscle aches with walking: None Resp Respiratory: Negative for SOB with activity, SOB at rest, SOB orthopnea SOB lying down, Cough or paroxysmal nocturnal dyspnea GI GI: Positive for nausea and heartburn; Negative vomiting or black,tarry stools : Negative for hematuria Musc Musc: Negative for muscle aches/ myalgia, muscle weakness, joint pain or balance problems Skin Skin: Negative non-healing lesions, rash or unusual bruising Neuro Neuro: Negative for dizziness, lightheadedness, near syncope, syncope, orthostatic symptoms, frequent falls, headache(s), weakness, confusion, memory loss, blurry vision, double vision, vertigo or lack of coordination Joaquim Hematologic/Lymphatic: Negative for easy bleeding or easy bruising Endo Endo: Negative for fatigue, excessive sweating, flushing or increased thirst/drinking Psych Psych: Negative for anxiety or depression Allergy Allergy/Immunology: Negative for hives and Negative for rash Cardiology Exam Const Appearance: cooperative, healthy appearing, comfortable, no acute distress and well developed Orientation: alert, awake and oriented x3 Head Head: normal to inspection Ears: hearing grossly normal bilaterally Nose: external nose normal Face and Sinus: face symmetric Mouth: oral mucosae normal, lip normal and moist mucous membranes Eyes General: appearance normal, both eyes and all related structures Eyelids: eyelids normal Conjunctivae: conjunctivae normal Pupils: PERRL EOM: EOM intact bilaterally Neck Neck: normal visual inspection and trachea midline; Negative no JVD Carotids: Negative bruit Chest Chest inspection: normal inspection of the chest and midline sternotomy incision Auscultation: Bilateral: Clear to Auscultation Cardio Palpation: normal PMI Rate: regular rate Rhythm: regular rhythm Heart sounds: S1 normal and S2 normal; Negative rub, gallop or murmur GI GI: soft, no hepatosplenomegaly and bowel sounds present Neuro General: patient alert, patient awake, patient oriented x3 and CN's II-XI intact bilaterally Extremities Pulses: Normal: Right Posterior Tibial Pulse, Left Posterior Tibial Pulse, Right Radial Pulse and Left Radial Pulse Lower Extremity Edema: None: Bilateral Psych Psychological: normal affect Supplemental Info Supplemental Information Exercise myocardial perfusion stress test 03/20/2021 Stress protocol: Resting EKG demonstrates sinus bradycardia with a rate of 55 bpm normal intervals are noted resting blood pressure is 130/72 mmHg.??? The patient exercised according to regular [place] protocol for total duration of 8 minutes the maximum heart rate attained was 131 bpm which was 93% of maximum predicted heart rate the maximum workload was 10.1 metabolic equivalents.??? At rest there were no ST or T wave changes noted to suggest ischemia and at peak exercise upsloping ST changes were noted with did not meet the criteria for ischemia.??? No clinical angina was noted the test was terminated due to the target heart rate being achieved. Perfusion SPECT analysis: Review of the stress images demonstrate normal uptake of tracer noted in all areas of the myocardium the resting images similarly demonstrate normal uptake of tracer noted in all areas of the myocardium.??? No areas of reversibility are noted to suggest ischemia and no previous infarct is noted. Conclusion: Normal exercise myocardial perfusion stress test at a high workload. Preserved ejection fraction. Exercise myocardial perfusion stress test 11/2022: 82-year-old man with a history of coronary disease status post LAD stent Stress protocol: Resting EKG demonstrates sinus bradycardia with a rate of 56 bpm resting blood pressure is 148/82 mmHg.??? The patient exercised according to the regular [place] protocol for a total duration of 6 minutes and 31 seconds attaining a maximum heart rate of 117 bpm which was 84% of maximum predicted heart rate; the maximum workload was 8.5 metabolic equivalents.??? At rest there were no ST or T wave changes noted to suggest ischemia and at peak exercise upsloping ST changes only were noted which did not meet the criteria for ischemia.??? No clinical angina was noted the test was terminated due to the target heart rate being achieved/fatigue.??? The peak blood pressure was 170/74 mmHg.??? Rate- pressure product was 17,200. Myocardial perfusion protocol. 13.2 mCi of technetium 99m sestamibi was injected at rest.??? The patient exercised according to regular [place] protocol for total duration of 6 minutes and 31 seconds and at peak exercise 42.1 mCi of technetium 99m sestamibi was injected stress images were obtained stress and rest images were reconstructed in comparing the short axis vertical long and horizontal long axis.??? Gated images were also obtained. Perfusion SPECT analysis: Review of the stress images demonstrate normal uptake of tracer noted in all areas of the myocardium except for the basal to mid inferior wall with reduced perfusion.??? The resting images similarly demonstrate normal uptake of tracer noted in all areas of the myocardium.??? The above is suggestive of a moderate zone of mid inferior ischemia Gated SPECT analysis: The gated ejection fraction is 62%. Conclusion: Abnormal exercise myocardial perfusion stress test at a moderate workload with moderate mid inferior ischemia Preserved ejection fraction. ECHOCARDIOGRAM 10/23/2018 Interpretation Summary The study was technically difficult. Contrast injection was performed. Left ventricular systolic function is normal. The estimated ejection fraction is 60 %. Mild concentric left ventricular hypertrophy. The left atrium is moderately enlarged. Mild (1+) mitral valve insufficiency. Trivial tricuspid valve insufficiency. Trivial pulmonic valve insufficiency. Right ventricular systolic pressure estimated to be 25 mmHg. No evidence for diastolic dysfunction. Bubble contrast study negative for right to left interatrial shunt. Heart cath 11/2022: Severe triple-vessel disease with preserved left ventricular systolic function RECOMMENDATIONS Surgery consult for coronary revascularization CORONARY ANGIOGRAPHY DOMINANCE:??? Right Dominant LEFT HEART ASSESSMENT Left Ventricular Ejection Fraction: by LV Gram 75 % Normal Left Ventricular systolic function LEFT MAIN: Angiographically normal LEFT ANTERIOR DESCENDING ARTERY: Previously stented vessel with evidence of in-stent stenosis of approximately 80% and mild distal disease CIRCUMFLEX ARTERY: Nondominant but medium size is vessel with an 80% stenosis noted at the bifurcation of the large obtuse marginal branch and AV groove branch RIGHT CORONARY ARTERY: Dominant vessel with proximal 95% stenosis and mild distal disease Labs: LDL Cholesterol 161 mg/dL (0-130) H HDL Cholesterol 31 mg/dL (40-) L Cholesterol 247 mg/dL (200) H Triglycerides 274 mg/dL (-199) H Diagnostics: Electrocardiogram Stress Test Stress Test Nuclear Medicine Cardiac Catheterization Chest X-Ray Pulmonary: No Data to Display Past Visits: No Data to Display Assessment and Plan Assessment and Plan (1) S/P CABG x 4: Status: Acute Comment: Per Dr. Martinez at [facility] Plan: I do not have the exact surgery report to see which graphs he had done. We will obtain these. In the meantime he will continue with his aspirin, Crestor, metoprolol. He was advised that he would likely need to take these lifelong. He was encouraged to continue with cardiac rehab. We will follow-up with patient after cardiac rehab (2) Hyperlipidemia: Status: Acute Plan: Cholesterol prior to surgery demonstrated total cholesterol of 147, HDL 31, LDL 161. Patient is now on high intensity Crestor. We will repeat his labs prior to his next office visit. Did discuss dietary modifications. (3) Postoperative atrial fibrillation: Status: Acute Plan: Patient has not had any symptomatic recurrence. He wishes not to continue with his amiodarone. Agreeable with this. We will continue to monitor his rhythm. We will be able to do this in cardiac rehab. 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 Jazlyn Zayas, DO Jazlyn Zayas DO Work Phone: Start: 01-02-2023 History of coronary artery bypass grafting S/P CABG (coronary artery bypass graft) Phillip Jo DIE SINKER APPRENTICE - EXPERIMENTAL WELDER Work Phone: Start: 12-25-2022 Glucose quantitative blood xcpt reagent strip Humza Nickerson MD Work Phone: Start: 12-25-2022 Radiologic exam chest single view Shayan Emerson DIE SINKER APPRENTICE - EXPERIMENTAL WELDER Work Phone: Start: 12-25-2022 Basic metabolic panel calcium total Shayan Emerson DIE SINKER APPRENTICE - EXPERIMENTAL WELDER Work Phone: Start: 12-24-2022 Glucose quantitative blood xcpt reagent strip Humza Nickerson MD Work Phone: Start: 12-24-2022 Radiologic exam chest single view Shayan Emerson DIE SINKER APPRENTICE - EXPERIMENTAL WELDER Work Phone: Start: 12-24-2022 Compatibility each unit electronic Phillip Jo DIE SINKER APPRENTICE - EXPERIMENTAL WELDER Work Phone: Start: 12-24-2022 End: 12-24-2022 Basic metabolic panel calcium total Shayan Emerson DIE SINKER APPRENTICE - EXPERIMENTAL WELDER Work Phone: Start: 12-23-2022 Radiologic exam abdomen 1 view Manuelito BrettAnne-Marie Reyes DIE SINKER APPRENTICE - EXPERIMENTAL WELDER Work Phone: Start: 12-23-2022 Ecg routine ecg w/least 12 lds trcg only w/o i&r Manuelito Eleni Eric DIE SINKER APPRENTICE - EXPERIMENTAL WELDER Work Phone: Start: 12-23-2022 Radiologic exam chest single view Shayan Emerson DIE SINKER APPRENTICE - EXPERIMENTAL WELDER Work Phone: Start: 12-23-2022 Calcium ionized Humza Nickerson MD Work Phone: Start: 12-23-2022 Basic metabolic panel calcium total Shayan Emerson DIE SINKER APPRENTICE - EXPERIMENTAL WELDER Work Phone: Start: 12-22-2022 Glucose quantitative blood xcpt reagent strip Humza Nickerson MD Work Phone: Start: 12-22-2022 Glucose quantitative blood xcpt reagent strip Humza Nickerson MD Work Phone: Start: 12-22-2022 Ecg routine ecg w/least 12 lds trcg only w/o i&r Shayan R Idania DIE SINKER APPRENTICE - EXPERIMENTAL WELDER Work Phone: Start: 12-22-2022 Radiologic exam chest single view Shayan R Idania DIE SINKER APPRENTICE - EXPERIMENTAL WELDER Work Phone: Start: 12-22-2022 Basic metabolic panel calcium total Shayan R Idania DIE SINKER APPRENTICE - EXPERIMENTAL WELDER Work Phone: Start: 12-21-2022 Radiologic exam chest single view Yosef Garza DO Work Phone: Start: 12-21-2022 Glucose quantitative blood xcpt reagent strip Humza Nickerson MD Work Phone: Start: 12-21-2022 Glucose quantitative blood xcpt reagent strip Humza Nickerson MD Work Phone: Start: 12-21-2022 End: 12-21-2022 Glucose quantitative blood xcpt reagent strip Humza Nickerson MD Work Phone: Start: 12-21-2022 Radiologic exam chest single view Shayan R Idania DIE SINKER APPRENTICE - EXPERIMENTAL WELDER Work Phone: Start: 12-21-2022 Glucose quantitative blood xcpt reagent strip Humza Nickerson MD Work Phone: Start: 12-21-2022 Calcium ionized Humza Nickerson MD Work Phone: Start: 12-21-2022 Ecg routine ecg w/least 12 lds trcg only w/o i&r Shayan R Idania DIE SINKER APPRENTICE - EXPERIMENTAL WELDER Work Phone: Start: 12-21-2022 End: 12-21-2022 Basic metabolic panel calcium total Shayan R Idania DIE SINKER APPRENTICE - EXPERIMENTAL WELDER Work Phone: Start: 12-20-2022 Glucose quantitative blood xcpt reagent strip Humza Nickerson MD Work Phone: Start: 12-20-2022 End: 12-20-2022 Glucose quantitative blood xcpt reagent strip Humza Nickerson MD Work Phone: Start: 12-20-2022 KRYSTIN Wesley MD Work Phone: Start: 12-20-2022 Glucose quantitative blood xcpt reagent strip Humza Nickerson MD Work Phone: Start: 12-20-2022 History of coronary artery bypass grafting S/P CABG x 4 Liliana DC Comment on above: Per Dr. Martinez at [facility]: MATTSON to LAD, SVG to 1st diag, SVG to 1st obtuse, SVG to PDA Start: 12-20-2022 Radiologic exam chest single view Shayan Wilson [employer] Work Phone: Start: 12-20-2022 End: 12-20-2022 Basic metabolic panel calcium total Humza Nickerson MD Work Phone: Start: 12-20-2022 Blood gases any combination ph pco2 po2 co2 hco3 Humza Nickerson MD Work Phone: Start: 12-20-2022 End: 12-20-2022 Cabg w/arterial graft three arterial grafts Humza Nickerson MD Work Phone: Start: 12-20-2022 End: 12-20-2022 Echo transesophag r-t 2d w/prb img acquisj i&r Humza Nickerson MD Work Phone: Start: 12-20-2022 ABO and Rh group [Type] in Blood by Confirmatory method Phillip Jo DIE SINKER APPRENTICE [employer] Work Phone: Start: 12-20-2022 Basic metabolic panel calcium total Shayan Wilson [employer] Work Phone: Start: 12-20-2022 Blood typing serologic abo Phillip Jo APRN [employer] Work Phone: Start: 12-19-2022 Iadna s aureus methicillin resist amp probe tq Phillip Jo DIE SINKER APPRENTICE - EXPERIMENTAL WELDER Work Phone: Start: 12-19-2022 TTE w or wo fol wcon,Doppler Shayan Emerson APRN - EXPERIMENTAL WELDER Work Phone: Start: 12-19-2022 Radiologic exam chest single view Shayan Emerson APRN - EXPERIMENTAL WELDER Work Phone: Start: 12-19-2022 Basic metabolic panel calcium total Shayan Emerson DIE SINKER APPRENTICE - EXPERIMENTAL WELDER Work Phone: Start: 12-18-2022 Ct thorax w/o contrast material Manuelitohardeep Reyes DIE SINKER APPRENTICE - EXPERIMENTAL WELDER Work Phone: Start: 12-18-2022 Dup-scan xtr veins complete bilateral study Shayan Emerson APRN - EXPERIMENTAL WELDER Work Phone: Start: 12-18-2022 Duplex scan extracranial art compl bi study Shayan Emerson APRN - EXPERIMENTAL WELDER Work Phone: Start: 12-18-2022 Ecg routine ecg w/least 12 lds trcg only w/o i&r Shayan Emerson APRN - EXPERIMENTAL WELDER Work Phone: Start: 12-18-2022 Urnls dip stick/tablet rgnt auto w/o microscopy Manuelito Reyes DIE SINKER APPRENTICE - EXPERIMENTAL WELDER Work Phone: Start: 12-18-2022 Basic metabolic panel calcium total Manuelito BrettAnne-Marie Reyes DIE SINKER APPRENTICE - EXPERIMENTAL WELDER Work Phone: Start: 12-18-2022 Complete blood count with white cell differential, automated Manuelito BrettAnne-Marie Maykelcooper DIE SINKER APPRENTICE - EXPERIMENTAL WELDER Work Phone: Start: 12-18-2022 End: 12-18-2022 Thyrotropin [Units/volume] in Serum or Plasma Manuelito Reyes DIE SINKER APPRENTICE - EXPERIMENTAL WELDER Work Phone: Start: 12-17-2022 Radionuclide imaging of perfusion of myocardium under exercise stress Dr. Jazlyn Zayas Work Phone: Start: 12-17-2022 End: 12-17-2022 Chest 1 View (Portable) Procedure Note: See Note; NOTES: [facility] Imaging Services [address] [place] [address] Chest 1 View (Portable) MR#: [id number] Acct: [id number] Name: JESUS ALBERTO GUEVARA Jr. Rep #: [id number] : 1940 M 82 From: Coleman Schmitt MD PCP: Dr. Jazlyn Zayas DO Status: REG ER Study: Chest 1 View (Portable) Date of Exam: 12/17/22 Exam# [id number] Ordering Dr: Osvaldo Bolaños MD INDICATION: chest pain EXAMINATION/TECHNIQUE: X-RAY - XR Chest 1 View COMPARISON: Chest x-ray from 01/29/2022 FINDINGS: LINES/DEVICES: None. LUNGS: No pulmonary edema or focal airspace consolidation. No sizable pleural effusion. No pneumothorax detected. Stable slightly elevated right hemidiaphragm. MEDIASTINUM AND CARDIOVASCULAR STRUCTURES: Heart size within normal limits. Mediastinal contours unremarkable. BONES AND SOFT TISSUES: No acute findings. RAD/Chest 1 View (Portable) IMPRESSION: No radiographic evidence of acute cardiopulmonary disease. Electronically Signed: Coleman Schmitt MD at 1:26 EDT , CC: Dr. Jazlyn Zayas DO; Dr. Osvaldo Bolaños MD Network Operations Specialist: Signed Jazlyn Zayas DO Work Phone: Start: 12-17-2022 Plain chest X-ray Dr. Jazlyn Zayas Work Phone: Start: 08-06-2022 End: 08-07-2022 Urgent Care Visit Report Procedure Note: See Note; NOTES: [facility] [address] [place] [address] [address] [place] [address] OFFICE VISIT Date of Service: 08/06/22 MR#: [id number] Acct: [id number] Name: JESUS ALBERTO GUEVARA Jr. Rep #: [id number] : 1940 Provider: DAO Rodriguez Age/Sex: 82/M Location: [facility] Status: Signed Intake Vital Signs 08/06/22 17:00 BP 148/98 H Blood Pressure Location Lt brachial Position Sitting Respiration 16 Pulse 94 Pulse Source Monitor Temp 98.4 F Temp Source Temporal Pulse Oximetry (%) 95 Oxygen Delivery Method room air Intake Visit Reasons: COVID TEST/SYMPTOMATIC Chief Complaint: Cough Allergies No Known Allergies Allergy (Verified 08/06/22 17:00) Medications cholecalciferol (vitamin D3) 50 mcg (2,000 unit) chewable tablet 2,000 unit PO DAILY SUPPLEMENT 10/10/18 [History Confirmed 08/06/22] aspirin 81 mg tablet,delayed release (Adult Aspirin Regimen) 81 mg PO DAILY 03/07/21 [History Confirmed 08/06/22] latanoprost 0.005 % eye drops 1 drp EACH EYE DAILY 08/17/21 [History Confirmed 08/06/22] ascorbic acid (vitamin C) 500 mg tablet (Vitamin C) 500 mg PO DAILY 01/29/22 [History Confirmed 08/06/22] ondansetron 4 mg disintegrating tablet 4 mg PO Q8H PRN nausea and vomiting #10 tabs 01/29/22 [Rx Confirmed 08/06/22] zinc 10 mg tablet 10 mg PO DAILY 01/29/22 [History Confirmed 08/06/22] PFSH Medical History Atherosclerotic heart disease of [place] coronary artery without angina pectoris CKD (chronic kidney disease) stage 3, GFR 30-59 ml/min Contact with and (suspected) exposure to other viral communicable diseases COVID-19 (08/14/21) Hyperlipidemia Perforation of sigmoid colon due to diverticulitis Prostate cancer Tapeworm infection TIA (transient ischemic attack) (09/2018) Surgical History History of Achilles tendon repair History of appendectomy History of colonoscopy (2008) History of coronary artery stent placement (02/06/13) History of laparoscopic cholecystectomy History of right inguinal hernia History of tonsillectomy Family History Mother Heart disease Social History Smoking Status: Former smoker HPI HPI Chief Complaint: Cough Details: JESUS ALBERTO GUEVARA, is a 82 M who presents to the office today for complaint of nasal congestion, cough and difficulty tasting his coffee this morning. Patient states being concerned for COVID and is requesting a COVID test at this time. He denies fever, chills, sweats. He states his cough started approximately 2 days ago and denies hemoptysis, shortness of breath or difficulty breathing. No fever, chills, sweats. No nausea, vomiting, diarrhea. No other associated symptoms or alleviating/aggravating factors. ROS Const Constitutional: Positive for other (6 system ROS completed with pertinent findings in the HPI otherwise normal.) Exam Const General: cooperative and well developed HENMT Head: normal to inspection and atraumatic Ears: hearing grossly normal bilaterally Nose: nasal discharge clear Face and sinus: normal facial exam Mouth: oral mucosae normal Throat: abnormal tonsil bilaterally hypertrophy 1+ Resp Effort Inspection: normal respiratory effort and no audible wheezes Auscultation: Bilateral: Clear to Auscultation Cardio Palpation: normal PMI Rate: regular rate Rhythm: regular rhythm Neuro General: patient alert and CN's II-XI intact bilaterally Psych Appearance: grossly normal Mental Status: mental status grossly normal Results POC ANAID Covid FluAB PCR POC Anaid Covid PCR Not Detected Last Edit by Nancy Bob on 08/06/22 17:20 POC ANAID FLU NOT DETECTED FLU A B Last Edit by Nancy Bob on 08/06/22 17:20 Coding Level of Care Code Off vis,est,level 3 Diagnoses Contact with or suspected exposure to other viral communicable disease Z20.828 Acute upper respiratory infection J06.9 Assessment and Plan Assessment and Plan (1) Contact with or suspected exposure to other viral communicable disease: Status: Acute (2) Acute upper respiratory infection: Status: Acute Orders: Orders POC Anaid Covid FLUAB PCR 08/06/22 Plan Patient tested negative for COVID in the office today. Encouraged to get plenty of rest, drink lots of clear liquids, and use Tylenol or Ibuprofen (unless contraindicated) for fever and comfort. Patient also educated on other symptomatic management techniques. To be seen in 7-10 days if no improvement; sooner if worsening of symptoms. Patient advised of potential red flags and when appropriate to report to the ED. Patient verbalized understanding and agreement with all the above. 08/07/22 0654 <Electronically signed by Mau DC> Date Mau DC Cosigner Signature: Date (if applicable) CC: Jazlyn Zayas DO Work Phone: Start: 03-13-2022 End: 03-13-2022 Cardiology Visit Report Procedure Note: See Note; NOTES: [facility] [address] [place] [address] OFFICE VISIT Date of Service: 03/13/22 MR#: [id number] Acct: [id number] Name: PAOLAJESUS ALBERTO Jr. Rep #: [id number] : 1940 Provider: Dr. Ronnie Khan MD Age/Sex: 82/M Location: [facility] Status: Signed HPI HPI History of Present Illness Details: This is a 82-year-old gentleman that presents here today for a cardiovascular follow-up. He has a history of coronary artery disease with angioplasty and stenting to his LAD in 2012. He also has a history of TIA, hyperlipidemia, chronic kidney disease. He says that he had been put on lisinopril but his creatinine went up and so he discontinued it. He has been checking his blood pressures at home and he is convinced that they have been in the normotensive range. From a cardiac standpoint, patient is doing well. He does not have any chest discomfort/heaviness/tightn ess. His exercise tolerance is stable for his age. He does go to [facility] several times a week. He does not have any worsening symptoms of shortness of breath. He denies any PND. He does not have any orthopnea. He does not have any symptoms of congestive heart failure. He does not have any palpitations that he is aware of. He does occasionally have positional dizziness. He does not have any near-syncope or syncope. He does not have any lower extremity edema. He does not have any symptoms of claudication. Intake Vital Signs 02/25/20 13:48 03/07/21 09:02 01/29/22 08:22 03/13/22 08:58 03/13/22 09:00 Height 5 ft 11 in 5 ft 10 in 5 ft 11 in 5 ft 10 in Weight: 229 lb BMI 30.5 32.8 BP 144/94 H Respiration 16 Pulse 58 L Pulse Oximetry (%) 98 Intake Visit Reasons: 1 Y FU Allergies No Known Allergies Allergy (Verified 03/13/22 08:59) Medications cholecalciferol (vitamin D3) 50 mcg (2,000 unit) chewable tablet 2,000 unit PO DAILY SUPPLEMENT 10/10/18 [History Confirmed 03/13/22] aspirin 81 mg tablet,delayed release (Adult Aspirin Regimen) 81 mg PO DAILY 03/07/21 [History Confirmed 03/13/22] latanoprost 0.005 % eye drops 1 drp EACH EYE DAILY 08/17/21 [History Confirmed 03/13/22] ascorbic acid (vitamin C) 500 mg tablet (Vitamin C) 500 mg PO DAILY 01/29/22 [History Confirmed 03/13/22] ondansetron 4 mg disintegrating tablet 4 mg PO Q8H PRN nausea and vomiting #10 tabs 01/29/22 [Rx Confirmed 03/13/22] zinc 10 mg tablet 10 mg PO DAILY 01/29/22 [History Confirmed 03/13/22] Ejection fraction %: 60 to 64 PFSH Medical History Atherosclerotic heart disease of [place] coronary artery without angina pectoris CKD (chronic kidney disease) stage 3, GFR 30-59 ml/min Contact with and (suspected) exposure to other viral communicable diseases COVID-19 (08/14/21) Hyperlipidemia Perforation of sigmoid colon due to diverticulitis Prostate cancer Tapeworm infection TIA (transient ischemic attack) (09/2018) Surgical History History of Achilles tendon repair History of appendectomy History of colonoscopy (2008) History of coronary artery stent placement (02/06/13) History of laparoscopic cholecystectomy History of right inguinal hernia History of tonsillectomy Family History Mother Heart disease Social History Smoking Status: Former smoker ROS Const Const: Negative for fatigue, weakness, headache(s), frequent falls, difficulty sleeping or excessive sweating Eyes Eyes: Negative for loss of peripheral vision, transient loss of vision, blurry vision, double vision or tunnel vision ENT ENT: Negative for headache(s), dizziness, Nosebleed/epistaxis or balance problems Cardio Chest Pain: Yes (episode of pain mid back and presented to ER 01/29/2022) Frequency: other (one other episode mid backpain that woke him from his sleep) Palpitations: No Edema: None Muscle aches with walking: None Resp Respiratory: Negative for SOB with activity, SOB at rest, SOB orthopnea SOB lying down, Cough or paroxysmal nocturnal dyspnea GI GI: Negative nausea, vomiting, heartburn or black,tarry stools : Negative for hematuria Musc Musc: Negative for muscle aches/ myalgia, muscle weakness, joint pain or balance problems Skin Skin: Negative non-healing lesions, rash or unusual bruising Neuro Neuro: Negative for dizziness, lightheadedness, near syncope, syncope, orthostatic symptoms, frequent falls, headache(s), weakness, confusion, memory loss, blurry vision, double vision, vertigo or lack of coordination Joaquim Hematologic/Lymphatic: Negative for easy bleeding or easy bruising Endo Endo: Negative for fatigue, excessive sweating, flushing or increased thirst/drinking Psych Psych: Negative for anxiety or depression Allergy Allergy/Immunology: Negative for hives and Negative for rash Cardiology Exam Const Appearance: cooperative, healthy appearing, comfortable, no acute distress and well developed Orientation: alert, awake and oriented x3 Head Head: normal to inspection Ears: hearing grossly normal bilaterally Nose: external nose normal Face and Sinus: face symmetric Mouth: oral mucosae normal, lip normal and moist mucous membranes Eyes General: appearance normal, both eyes and all related structures Eyelids: eyelids normal Conjunctivae: conjunctivae normal Pupils: PERRL EOM: EOM intact bilaterally Neck Neck: normal visual inspection and trachea midline; Negative no JVD Carotids: Negative bruit Chest Chest inspection: normal inspection of the chest Auscultation: Bilateral: Clear to Auscultation Cardio Palpation: normal PMI Rate: regular rate Rhythm: regular rhythm Heart sounds: S1 normal and S2 normal; Negative rub, gallop or murmur GI GI: soft, no hepatosplenomegaly and bowel sounds present Neuro General: patient alert, patient awake, patient oriented x3 and CN's II-XI intact bilaterally Extremities Pulses: Normal: Right Posterior Tibial Pulse, Left Posterior Tibial Pulse, Right Radial Pulse and Left Radial Pulse Lower Extremity Edema: None: Bilateral Psych Psychological: normal affect Supplemental Info Supplemental Information Exercise myocardial perfusion stress test 03/20/2021 Stress protocol: Resting EKG demonstrates sinus bradycardia with a rate of 55 bpm normal intervals are noted resting blood pressure is 130/72 mmHg.??? The patient exercised according to regular [place] protocol for total duration of 8 minutes the maximum heart rate attained was 131 bpm which was 93% of maximum predicted heart rate the maximum workload was 10.1 metabolic equivalents.??? At rest there were no ST or T wave changes noted to suggest ischemia and at peak exercise upsloping ST changes were noted with did not meet the criteria for ischemia.??? No clinical angina was noted the test was terminated due to the target heart rate being achieved. Perfusion SPECT analysis: Review of the stress images demonstrate normal uptake of tracer noted in all areas of the myocardium the resting images similarly demonstrate normal uptake of tracer noted in all areas of the myocardium.??? No areas of reversibility are noted to suggest ischemia and no previous infarct is noted. Conclusion: Normal exercise myocardial perfusion stress test at a high workload. Preserved ejection fraction. ECHOCARDIOGRAM 10/23/2018 Interpretation Summary The study was technically difficult. Contrast injection was performed. Left ventricular systolic function is normal. The estimated ejection fraction is 60 %. Mild concentric left ventricular hypertrophy. The left atrium is moderately enlarged. Mild (1+) mitral valve insufficiency. Trivial tricuspid valve insufficiency. Trivial pulmonic valve insufficiency. Right ventricular systolic pressure estimated to be 25 mmHg. No evidence for diastolic dysfunction. Bubble contrast study negative for right to left interatrial shunt. Portions of this documentation were copied and pasted from previous office visit notes to provide a cohesive continuity of the history. The note has been reviewed, edited, and updated, as necessary. Labs: No Data to Display Diagnostics: Electrocardiogram Stress Test NM Stress Test Chest X-Ray Pulmonary: No Data to Display Assessment and Plan Assessment and Plan (1) History of coronary artery stent placement: Status: Chronic Comment: PCI-TAMEKA-Mid LAD 3.0 x 15 mm Resolute Integrity Stent 02/06/2013 Plan: He does have a history of coronary artery disease status post previous angioplasty and stenting of his LAD as noted above. He did have a drug-eluting stent placed and he had a stress test in 2020 where he exercised to a high metabolic workload without any evidence of ischemia. I would recommend that we continue the current medical therapy and not make any changes. He is scheduled to see the physician gynecologist and depending on the findings further recommendations will be made regarding his blood pressure medications. (2) Hyperlipidemia: Status: Chronic Plan: He does have a history of hyperlipidemia and he will continue with aggressive risk factor modification. Plan Details Follow Up: 1 Year (mmm) Coding Level of Care Code Off vis,est,level 3 Diagnoses History of coronary artery stent placement Z95.5 Hyperlipidemia E78.5 Coding Level of Care Code Off vis,est,level 3 Diagnoses History of coronary artery stent placement Z95.5 Hyperlipidemia E78.5 03/13/22 1016 <Electronically signed by Ronnie Khan MD> Date Ronnie Khan MD Cosigner Signature: Date (if applicable) CC: Dr. Jazlyn Zayas, DO Jazlyn Zayas DO Work Phone: Start: 02-10-2022 End: 02-11-2022 Thyroid Comments: See Note; NOTES: [facility] Imaging Services [address] [place], [place] [address] [address] Thyroid MR#: [id number] Acct: [id number] Name: JESUS ALBERTO GUEVARA Jr. Rep #: [id number] : 1940 M 82 From: Josemanuel Szymanski MD PCP: Dr. Jazlyn Zayas DO Status: REG CLI Study: Thyroid Date of Exam: 02/10/22 Exam# [id number] Ordering Dr: Jazlyn Zayas DO STUDY: THYROID ULTRASOUND REASON FOR EXAM: Male, 82 years old. Thyroid Nodule Follow-up ] TECHNIQUE: Ultrasound evaluation of the thyroid was performed with real-time and static nunez-scale imaging. COMPARISON: 04/02/2018 FINDINGS: RIGHT LOBE: The right lobe of the thyroid gland measures 5.5 x 2.4 x 2.7 cm. There is a homogeneous echotexture. Solid and cystic nodule (TR 3) in the right thyroid lobe measures 2.5 x 2.1 x 2.3 cm, mildly smaller since prior ultrasound. No new nodule. LEFT LOBE: The left lobe of the thyroid gland measures 4.8 x 1.9 x 2.2 cm. There is a homogeneous echotexture. There are 3 hypoechoic nodules (TR 4) of the left thyroid lobe measuring up to 8 mm, not significantly changed. No new nodule. ISTHMUS: The isthmus measures 7 mm. The regional lymph nodes are normal. US/Thyroid IMPRESSION: 1. No new or enlarging thyroid nodule. 2. Bilateral thyroid nodules; dominant nodule on the right has decreased in size since 2018. Electronically Signed: Josemanuel Szymanski MD ([place]) at 8:09 EDT , CC: Dr. Jazlyn Zayas DO Network Operations Specialist: Signed Jazlyn Zayas DO Work Phone: Start: 02-10-2022 US scan of thyroid Start: 01-29-2022 End: 01-29-2022 Chest 1 View (Portable) Comments: See Note; NOTES: [facility] Imaging Services [address] [place] [address] Chest 1 View (Portable) MR#: [id number] Acct: [id number] Name: JESUS ALBERTO GUEVRAA Jr. Rep #: [id number] : 1940 M 81 From: Wu Jurado MD PCP: Dr. Jalzyn Zayas DO Status: REG ER Study: Chest 1 View (Portable) Date of Exam: 01/29/22 Exam# [id number] Ordering Dr: Chris Diane DO STUDY: X-RAY CHEST REASON FOR EXAM: Male, 81 years old. chest pain TECHNIQUE: Single AP portable view of the chest. COMPARISON: 02/06/2013 FINDINGS: The lungs are clear and expanded. There is no demonstrated pleural abnormality. Normal size heart. Normal mediastinum and violet. Normal visualized pulmonary arteries. Normal visualized aortic arch and descending thoracic aorta. Normal visualized thoracic spine. Normal visualized ribs, clavicles, and shoulders. There is no demonstrated abnormality of the visualized soft tissue structures of the upper abdomen. RAD/Chest 1 View (Portable) IMPRESSION: Normal x-ray examination of the chest. Electronically Signed: Wu Jurado MD at 9:08 EDT , CC: Dr. Chris Diane DO; Dr. Jazlyn Zayas DO Network Operations Specialist: Signed Jazlyn Zayas DO Work Phone: Start: 01-29-2022 Plain chest X-ray Start: 01-29-2022 CT of thorax, abdomen and pelvis with contrast Start: 01-29-2022 End: 01-29-2022 CTA Chst, Abd, Pel W and/or WO Comments: See Note; NOTES: [facility] Imaging Services [address] [place] [address] CTA Chst, Abd, Pel W and/or WO MR#: [id number] Acct: [id number] Name: JESUS ALBERTO GUEVARA Jr. Rep #: [id number] : 1940 M 81 From: Wu Jurado MD PCP: Dr. Jazlyn Zayas DO Status: REG ER Study: CTA Chst, Abd, Pel W and/or WO Date of Exam: 0 01/29/22 Exam# [id number] Ordering Dr: Chris Diane DO INDICATION: dissection study EXAMINATION: CTA CHEST, ABDOMEN AND PELVIS WITH CONTRAST - TECHNIQUE: A CTA of the chest, abdomen, and pelvis is obtained with sagittal and coronal reconstructed MIP views. Three-dimensional surface rendered sequence of the thoracic and abdominal aorta was obtained. A radiation dose optimization technique was used for this scan. mL of Isovue-370. Oral contrast: None. COMPARISON: 02/06/2013 FINDINGS: CT CHEST: THORACIC AORTA: No atheromatous disease, no aneurysmal changes or dissection. ABDOMINAL AORTA: No aneurysm or dissection. No significant atheromatous disease. The iliac arteries are unremarkable. 2 cm nodule the right lobe of thyroid gland and correlation with thyroid ultrasound is recommended. LUNGS: The lungs are well-expanded without acute or chronic changes. No effusions or pneumothorax. MEDIASTINUM: The thyroid gland is normal. No mediastinal or hilar adenopathy. HEART: Heart is normal size. No pericardial effusion. No CAD. CT ABDOMEN AND PELVIS: LIVER: The liver enhances homogeneously. 2 cm of peripherally globular enhancing mass within the subcapsular medial segment left lobe of the liver consistent with hemangioma.. GALLBLADDER: The CBD is normal. Status post cholecystectomy.. SPLEEN: Normal. PANCREAS: No masses or inflammation. ADRENAL GLANDS: Normal. KIDNEYS AND URETERS: The kidneys both enhance appropriately. There are normal size and shape. No hydronephrosis or nephrolithiasis. No renal masses or cysts. STOMACH: Normal. SMALL BOWEL: No abnormal distention of the small bowel. MESENTERY: No mesenteric inflammation. No ascites. COLON: No significant diverticulosis, masses or inflammation. The colon otherwise is normal. There is a large fatty ileocecal valve. APPENDIX: The appendix is not visualized. IVC: Normal. RETROPERITONEUM: No retroperitoneal lymphadenopathy. PELVIC STRUCTURES: Normal bladder. Radiation seeds within the prostate gland. SOFT TISSUES ABDOMEN: The anterior abdominal wall is normal. SOFT TISSUE CHEST: The extrathoracic soft tissues are normal. BONES: No fractures or significant degenerative disease. CT/CTA Chst, Abd, Pel W and/or WO IMPRESSION: No CT evidence of pulmonary embolism or aortic dissection. 2 cm nodule of the right lobe of the thyroid gland and correlation with thyroid ultrasound is recommended. Normal contrast-enhanced CT of the abdomen and pelvis. Electronically Signed: Wu Jurado MD at 9:29 EDT , CC: Dr. Chris Diane DO; Dr. Jazlyn Zayas DO Network Operations Specialist: Signed Jazlyn Zayas DO Work Phone: Start: 01-29-2022 End: 01-29-2022 Emergency Department Summary Comments: See Note; NOTES: [facility] Medical Records Department [address] [place] [address] Emergency Department Summary 01/29/22 MR#: [id number] Acct: [id number] Name: JESUS ALBERTO GUEVARA Jr. Rep #: [id number] : 1940 81 From: Chris Diane DO PCP: Dr. Jazlyn Zayas DO Status:REG ER Location: ED HPI History of Present Illness Chief Complaint: Chest Pain Narrative Narrative: 81-year-old male with history of CAD, cardiac stent, [place] presenting with chest pain. He states it starts in his mid back and radiates towards his chest and towards the right. He states this comes in waves and last minutes. He denies shortness of breath, lightheadedness, diaphoresis. He states it does feel similar to his previous OK. He is a patient of Dr. Khan. Patient does state that he recently came back from [place]. 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 Encounter for screening for COVID-19 History of CVA (cerebrovascular accident) Hyperlipidemia Perforation of sigmoid colon due to diverticulitis Prostate cancer Tapeworm infection TIA (transient ischemic attack) (09/2018) Home Medications cholecalciferol (vitamin D3) 50 mcg (2,000 unit) chewable tablet 2,000 unit PO DAILY SUPPLEMENT 10/10/18 [History Last Taken 10/25/18] aspirin 81 mg tablet,delayed release (Adult Aspirin Regimen) 81 mg PO DAILY 03/07/21 [History Last Taken Unknown] latanoprost 0.005 % eye drops 1 drp EACH EYE DAILY 08/17/21 [History Last Taken Unknown] ascorbic acid (vitamin C) 500 mg tablet (Vitamin C) 500 mg PO DAILY 01/29/22 [History Last Taken Unknown] lisinopril 10 mg tablet 10 mg PO BID #60 tabs 01/29/22 [Rx Last Taken Unknown] ondansetron 4 mg disintegrating tablet 4 mg PO Q8H PRN nausea and vomiting #10 tabs 01/29/22 [Rx Last Taken Unknown] zinc 10 mg tablet 10 mg PO DAILY 01/29/22 [History Last Taken Unknown] Allergy/AdvReac Type Severity Reaction Status Date / Time No Known Allergies Allergy Verified 08/15/21 09:54 Family History Mother Heart disease Surgical History History of Achilles tendon repair History of appendectomy History of colonoscopy (2008) History of coronary artery stent placement (02/06/13) History of laparoscopic cholecystectomy History of right inguinal hernia History of tonsillectomy Social History Smoking Status: Former smoker ROS ROS ED Constitutional Constitutional ED: Denies chills or fever(s) Eyes Eyes: Denies blurry vision or change in vision ENT ENT ED: Denies rhinorrhea or sore throat Cardiovascular Cardiovascular: Reports as per HPI Respiratory/Chest Respiratory/Chest: Denies cough or dyspnea Gastrointestinal Gastrointestinal: Denies abdominal pain or constipation Genitourinary Genitourinary ED: Denies dysuria or hematuria Musculoskeletal Musculoskeletal: Denies arthralgias or back pain Integumentary Denies abscess Neurologic Neurologic: Denies headache(s) or paresthesias Psychiatric Psychiatric: Denies anxiety or depression EXAM Physical Exam Const Vital Signs: 01/29/22 08:22 01/29/22 08:27 01/29/22 08:28 Temperature 97.6 F L Temperature Source Oral Pulse Rate 67 Respiratory Rate 20 H Respiratory Effort Normal Blood Pressure 207/90 H Blood Pressure Mean 129 Pulse Ox 99 99 Oxygen Delivery Method Room Air Room Air 01/29/22 09:40 01/29/22 10:19 01/29/22 10:59 Temperature Temperature Source Pulse Rate 70 83 71 Respiratory Rate 16 16 16 Respiratory Effort Blood Pressure 179/84 H 159/72 H 161/84 H Blood Pressure Mean 115 101 109 Pulse Ox 96 98 98 Oxygen Delivery Method Room Air Room Air Room Air 01/29/22 11:22 Temperature Temperature Source Pulse Rate 67 Respiratory Rate 16 Respiratory Effort Blood Pressure 167/88 H Blood Pressure Mean 114 Pulse Ox 98 Oxygen Delivery Method Nasal Cannula Positive well nourished General Appearance ED: NAD; Negative for pallor HEENT Reports moist mucous membranes normocephalic Eyes PERRL and EOMs intact bilaterally Resp normal respiratory effort and clear to auscultation bilaterally Cardio regular rate and regular rhythm Back/Spine no CVA tenderness Extremity normal to inspection Neuro oriented x3 and CN's II-XII intact bilaterally Sensorium / Orientation: awake Motor Exam: strength 5/5 throughout Psych mental status grossly normal Skin General Skin Exam: Negative for jaundice or pallor Heart Score History: Moderately Suspicious ECG: Normal Age: >/= 65 years Risk Factors: >/= 3 Risk Factors or History of CAD Score: 5 MDM MDM MDM Narrative Medical decision making narrative: Patient presenting with chest pain that radiates from his back to the center of his chest and to the right. He states has been having waves of this. He states it feels like his previous OK. The patient's blood pressure is elevated at 207/90. This was rechecked. He states he is not using this hypertensive. Because of his blood pressure and chest pain all taken directly to CT to rule out dissection. Patient was given 10 mg of hydralazine prior to taking him over. Blood pressure will be monitored. EKG on my interpretation shows a normal sinus rhythm with a ventricular rate of 64 bpm without sign ischemic change or dysrhythmia. Chest x-ray on my interpretation shows no acute cardiopulmonary process and the radiologist agree. CTA of the chest abdomen pelvis is read as negative for PE or aortic dissection. There is an incidental finding of thyroid nodule. CBC is unremarkable. Patient's creatinine is slightly elevated at 1.78 over his previous which was 1.69. His GFR has declined a little as well. High-sensitivity troponin is 16. Patient's blood pressure has been controlled and has now 159/72. Patient's high-sensitivity troponin initially was 16 and remained at 16. I spoke with Dr. Zayas who recommended starting him on lisinopril 10 mg p.o. twice daily. He is to keep a diary of his blood pressures. Patient acknowledges understanding of this. Impression: 1. Chest pain 2. Chronic kidney disease 3. Hypertension???new onset 4. Thyroid nodule Lab Data Attestation: I reviewed the patient's lab results. Labs: Laboratory Results - last 24 hr 01/29/22 01/29/22 01/29/22 08:25 08:25 10:55 WBC 6.1 RBC 5.85 Hgb 16.7 H Hct 51.2 MCV 87.5 MCH 28.5 MCHC 32.6 RDW Std Deviation 42.7 RDW Coeff of Anyi 13.2 Plt Count 200 MPV 10.2 Immature Gran % (Auto) 0.300 Neut % (Auto) 59.0 Lymph % (Auto) 27.8 Bourbon % (Auto) 8.5 Eos % (Auto) 3.4 Baso % (Auto) 1.0 Absolute Neuts (auto) 3.6 Absolute Lymphs (auto) 1.70 Nucleated RBC % 0 Sodium 141 Potassium 4.1 Chloride 106 Carbon Dioxide 28.0 Anion Gap 7 BUN 17 Creatinine 1.78 H Estim Creat Clear Calc 34.18 Est GFR (MDRD) Af Amer 47 L Est GFR (MDRD) Non-Af 39 L BUN/Creatinine Ratio 9.6 L Glucose 109 H Calcium 8.7 Troponin I High Sens 16 16 Radiography Diagnostic Testing: Clinical Impression(s) from Imaging Studies Chest/Abdomen/Pelvis CTA 01/29/22 08:32 IMPRESSION: No CT evidence of pulmonary embolism or aortic dissection. 2 cm nodule of the right lobe of the thyroid gland and correlation with thyroid ultrasound is recommended. Normal contrast-enhanced CT of the abdomen and pelvis. Electronically Signed: Wu Jurado MD at 9:29 EDT Reading Location ID and State: [facility] / [place] Tel , Service support , Chest X-Ray 01/29/22 08:35 IMPRESSION: Normal x-ray examination of the chest. Electronically Signed: Wu Jurado MD at 9:08 EDT Reading Location ID and State: 140 / [employer] Tel , Service support , Discharge Plan Triage Chief Complaint: Chest Pain ED Provider: Chris Diane Dx/Rx/DC Orders Instructions: ED Chest Pain, Noncardiac, ED Hypertension New Begin Treatment Prescriptions: New lisinopril 10 mg tablet 10 mg PO BID Qty: 60 0RF ondansetron 4 mg tablet,disintegrating 4 mg PO Q8H PRN (Reason: nausea and vomiting) Qty: 10 0RF No Action aspirin [Adult Aspirin Regimen] 81 mg tablet,delayed release (DR/EC) 81 mg PO DAILY cholecalciferol (vitamin D3) 2,000 UNIT tablet,chewable 2,000 unit PO DAILY latanoprost 0.005 % drops 1 drp EACH EYE DAILY Label Comments: place 1 drop into both eyes once daily ascorbic acid (vitamin C) [Vitamin C] 500 mg Tablet 500 mg PO DAILY zinc 10 mg Tablet 10 mg PO DAILY Primary Care Provider: Jazlyn Zayas Referrals: Jazlyn Zayas DO [Primary Care Provider] - Disposition Disposition: Home, Self Care What to do if you have Problems For any increased pain, shortness of breath, bleeding, nausea or vomiting, chest pain, or any unexpected problems, contact your Primary Care Provider. Call [facility] ([phone]) or report to the closest Emergency Room. Call 911 if necessary. 01/29/22 1204 <Electronically signed by Chris Diane DO> Cosigner Signature (if applicable): CC: Dr. Jazlyn Zayas DO Signed Jazlyn Zayas DO Work Phone: Start: 01-29-2022 End: 2022 12 Lead EKG Comments: See Note; NOTES: [facility] Cardiovascular Services [address] [place] [address] 12 Lead EKG 01/29/22825 MR#: [id number] Acct: [id number] Name: JESUS ALBERTO GUEVARA JrAnne-Marie Rep #: [id number] : 1940 81 From: Collins Mccloud MD Attending Dr: Status: DEP ER Ordering Dr: Chris Diane DO Date: 01/29/22 Location: ED Sex: M C Admitted: Test Reason : CP Blood Pressure : / mmHG Vent. Rate : 064 BPM Atrial Rate : 064 BPM P-R Int : 190 ms QRS Dur : 098 ms QT Int : 382 ms P-R-T Axes : 049 005 084 degrees QTc Int : 394 ms Normal sinus rhythm Low voltage QRS (Limb Leads) Poor R wave progression Confirmed by POWER MINOR, COLLINS ([id number]), associate entertainment editor TAWNYA ZAVALA ([id number]) on 2022 8:14:06 AM Referred By: Confirmed By:COLLINS MCCLOUD MD 01/31/22 0814 Date Collins Mccloud MD CC: Dr. Chris Diane DO; Dr. Jazlyn Zayas DO Signed Jazlyn Zayas DO Work Phone: Start: 08-15-2021 End: 08-15-2021 Virtual Office Visit Comments: See Note; NOTES: [facility] Services [address] [place] [address] OFFICE VISIT Date of Service: 08/15/21 MR#: [id number] Acct: [id number] Patient: PAOLAJESUS ALBERTO Mondragon Rep #: [id number] : 1940 Provider: JOSUE benson Age/Sex: 81/M [place] [facility] Status: Signed Intake Intake Visit Reasons: COVID, [place] Chief Complaint: COVID-19 Allergies No Known Allergies Allergy (Verified 08/15/21 09:54) [facility] Medical History (Updated 08/15/21 @ 09:49 by Jailene Miller [employer] T[employer]NER, [employer]UM[employer]IN[employer]-C) Atherosclerotic heart disease of [place] coronary artery without angina pectoris CKD (chronic kidney disease) stage 3, GFR 30-59 ml/min Contact with and (suspected) exposure to other viral communicable diseases 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 Encounter for screening for COVID-19 History of CVA (cerebrovascular accident) Hyperlipidemia Perforation of sigmoid colon due to diverticulitis Prostate cancer Tapeworm infection TIA (transient ischemic attack) (09/2018) Surgical History History of Achilles tendon repair History of appendectomy History of colonoscopy (2008) History of coronary artery stent placement (02/06/13) History of laparoscopic cholecystectomy History of right inguinal hernia History of tonsillectomy Family History Mother Heart disease Social History Smoking Status: Former smoker HPI HPI Chief Complaint: COVID-19 Details: Patient was informed that this visit will be billed to patient. This visit was conducted during COVID- pandemic. Details: Patient was informed that this visit will be billed to patient. This visit was conducted during COVID- pandemic. Statement read to the patient: This telehealth visit is being offered during our stay at home measures in response to the pandemic. It is subject to an office visit charge. There are also charges for the monoclonal antibody infusion which may or may not be covered by your insurance. The patient consents to continue. The FDA has authorized the emergency use of monoclonal antibody treatment (bamlanivimab/etesevimab or casirivimab/imdevimab) for mild to moderate COVID-19 in adults and pediatric patients with positive results of direct SARS-Cov-2 viral testing ages 12 and older, at least 40 kg, who are at high risk for progressing to severe COVID-19 and or hospitalization. The significant known and potential risks (allergic reactions, worsening of symptoms after treatment, or side effects from injection including brief pain, bleeding, bruising of the skin, soreness, swelling, possible infection at the infusion site) and benefits (decrease chance of progression to severe COVID-19) of a monoclonal antibody infusion, and the extent to which such potential risks and benefits are unknown. Note that worsening symptoms after treatment may occur but it is unknown whether these symptoms are related to treatment or are due to the progression of COVID-19. Worsening symptoms may include: fever, difficulty breathing, rapid or slow heart rate, tiredness, weakness or confusion. If these symptoms occur, patients are encouraged to seek immediate medical attention. These treatments are still being studied, all possible side effects may not be listed or known at this time. Patients treated with monoclonal antibody infusion should continue to self-isolate and use infection control measures (such as wear mask, isolate, social distance, avoid sharing personal items, clean and disinfect high touch surfaces, and frequent handwashing) according to the CDC guidelines. The fact sheet will be provided prior to the administration of the medication. Oral medications have received authorization from the FDA to treat [id number] COVID-19 in patients at high risk for progression to severe COVID-19. These medications may not be appropriate for all patients and available drug supply may be limited. However, these oral medications may be more effective against the omicron variant. The patient had the option to refuse or accept treatment with monoclonal antibody therapy. The patient was informed that the number of people treated with monoclonal antibody therapy at this time is small. Due to the changes in the virus that causes COVID-19, some monoclonal antibody treatments may not be effective for all forms of the virus (known as variants). This includes the omicron variant. The patient stated understanding of this information communicated and wished to proceed with monoclonal antibody infusion therapy. COVID + test date: 08/14/21 @ Michael ACUÑA Sx Onset: 08/10/21 Sx: sore throat, Trigeminal neuralgia O2: NO Age: 81 Vaccine: NO Qualifier: Age 81, CKD III, heart disease ROS ENT ENT: Positive for sore throat Exam Const General: cooperative and no acute distress Resp Effort Inspection: normal respiratory effort and able to speak in complete sentences Neuro General: patient alert, patient awake and patient oriented x3 Cognition: normal cognition Speech: speech normal Psych Mental Status: mental status grossly normal Mood: congruent mood Attitude: cooperative Thought Process: normal Thought Content: normal Judgment: judgment good Details: Details:: Exam was limited due to phone visit with no video. Quality Reporting Tobacco Screening ([facility] 138) Smoking Status: Former smoker Coding Level of Care Code New Pt Level 1 Telephone Patient Type New History Problem Focused Exam Problem Focused Medical Decision Making Straight Forward Diagnoses COVID-19 U07.1 CKD (chronic kidney disease) stage 3, GFR 30-59 ml/min N18.3 Over 65 years old Time Spent (min) 10 Comment [id number] Assessment and Plan Assessment and Plan (1) COVID-19: Status: Acute Plan: The patient remains appropriate for the Monoclonal Antibody Infusion. The patient states understanding of this information communicated and wishes to proceed with monoclonal antibody infusion therapy. Patient agrees to receive either balanivimab/etesvimab or casirivimab/imdevimab upon availability. (2) CKD (chronic kidney disease) stage 3, GFR 30-59 ml/min: Status: Chronic (3) Over 65 years old: Status: Acute 08/15/21 0958 <Electronically signed by Jailene GARNERC> Date Jailene SALAS Cosigner Signature: Date (if applicable) CC: Dr. Jazlyn Zayas, DO Jazlyn Zayas DO Work Phone: Start: 08-14-2021 End: 08-15-2021 Urgent Care Visit Report Comments: See Note; NOTES: [place] [address] OFFICE VISIT Date of Service: 08/14/21 MR#: [id number] Acct: [id number] Name: JESUS ALBERTO GUEVARA Jr. Rep #: [id number] : 1940 Provider: DAO Rodriguez Age/Sex: 81/M Location: [facility] [place] Status: Signed Intake Vital Signs 08/14/21 17:19 BP 136/76 H Blood Pressure Location Lt brachial Position Sitting Respiration 18 Pulse 89 Pulse Source Monitor Temp 97.9 F Temp Source Temporal Pulse Oximetry (%) 96 Oxygen Delivery Method room air Intake Visit Reasons: COVID TEST Chief Complaint: COVID-19 Allergies No Known Allergies Allergy (Verified 03/07/21 09:03) [facility] Medical History (Updated 08/14/21 @ 17:38 by Mau DC, PA) Atherosclerotic heart disease of [place] coronary artery without angina pectoris CKD (chronic kidney disease) stage 3, GFR 30-59 ml/min Contact with and (suspected) exposure to other viral communicable diseases 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 Encounter for screening for COVID-19 History of CVA (cerebrovascular accident) Hyperlipidemia Perforation of sigmoid colon due to diverticulitis Prostate cancer Tapeworm infection TIA (transient ischemic attack) (09/2018) Surgical History History of Achilles tendon repair History of appendectomy History of colonoscopy (2008) History of coronary artery stent placement (02/06/13) History of laparoscopic cholecystectomy History of right inguinal hernia History of tonsillectomy Family History Mother Heart disease Social History Smoking Status: Former smoker HPI HPI Chief Complaint: COVID-19 Details: JESUS ALBERTO GUEVARA, is a 81 M who presents to the office today for complaint of sore throat and exposure to COVID. Patient states he has had a sore throat for the past 5 days. He denies cough, shortness of breath or difficulty breathing. No fever, chills, sweats. No nausea, vomiting, diarrhea. No other associated symptoms or alleviating/aggravating factors. ROS Const Constitutional: Positive for other (6 system ROS completed with pertinent findings in the HPI otherwise normal.) Exam Const General: cooperative and well developed HENMT Head: normal to inspection and atraumatic Ears: hearing grossly normal bilaterally Nose: nasal discharge clear Face and sinus: normal facial exam Mouth: oral mucosae normal Throat: abnormal tonsil bilaterally hypertrophy 1+ Resp Effort Inspection: normal respiratory effort and no audible wheezes Auscultation: Bilateral: Clear to Auscultation Cardio Palpation: normal PMI Rate: regular rate Rhythm: regular rhythm Neuro General: patient alert and CN's II-XI intact bilaterally Psych Appearance: grossly normal Mental Status: mental status grossly normal Results POC SARS AG POC SARS AG Positive Last Edit by Leticia Santiago on 08/14/21 17:29 Coding Level of Care Code Off vis,est,level 3 Diagnoses COVID-19 U07.1 Assessment and Plan Assessment and Plan (1) COVID-19: Status: Acute Plan - DAO Tristan: Patient tested positive for COVID in the office today. Decadron as prescribed today. Patient refused referral to monoclonal antibody treatment. Encouraged to get plenty of rest, drink lots of clear liquids, and use Tylenol or Ibuprofen (unless contraindicated) for fever and comfort. Patient also educated on other symptomatic management techniques. To be seen in 7-10 days if no improvement; sooner if worsening of symptoms. Patient advised of potential red flags and when appropriate to report to the ED. Patient verbalized understanding and agreement with all the above. Plan Details Other Medications: New: dexamethasone (Decadron) 6 mg PO DAILY 5 tabs 0RF Other Orders: Orders: POC Rapid SARS Antigen 08/14/21 08/15/21 0653 <Electronically signed by Mau DC> Date Mau DC Cosigner Signature: Date (if applicable) CC: Jazlyngreg Zayas DO Work Phone: Start: 07-12-2021 End: 07-12-2021 Urgent Care Visit Report Comments: See Note; NOTES: [facility] [facility] [address] [place] [address] OFFICE VISIT Date of Service: 07/12/21 MR#: [id number] Acct: [id number] Name: JESUS ALBERTO GUEVARA Jr. Rep #: [id number] : 1940 Provider: DAO wiggins Age/Sex: 81/M Location: [facility] [place] Status: Signed Intake Vital Signs 07/12/21 09:55 BP 154/78 H Blood Pressure Location Lt brachial Position Sitting Respiration 16 Pulse 95 Pulse Source Monitor Temp 96.9 F L Temp Source Temporal Pulse Oximetry (%) 98 Oxygen Delivery Method room air Intake Visit Reasons: COVID TEST Chief Complaint: COVID-19 Allergies No Known Allergies Allergy (Verified 03/07/21 09:03) [facility] Medical History (Updated 07/12/21 @ 10:02 by Clinton DC, PA) Atherosclerotic heart disease of [place] coronary artery without angina pectoris CKD (chronic kidney disease) stage 3, GFR 30-59 ml/min Contact with and (suspected) exposure to other viral communicable diseases 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 Encounter for screening for COVID-19 History of CVA (cerebrovascular accident) Hyperlipidemia Perforation of sigmoid colon due to diverticulitis Prostate cancer Tapeworm infection TIA (transient ischemic attack) (09/2018) Surgical History History of Achilles tendon repair History of appendectomy History of colonoscopy (2008) History of coronary artery stent placement (02/06/13) History of laparoscopic cholecystectomy History of right inguinal hernia History of tonsillectomy Family History Mother Heart disease Social History Smoking Status: Former smoker HPI HPI Chief Complaint: COVID-19 Details: JESUS ALBERTO GUEVARA, is a 81 M who presents to the office today for COVID-19 screening. Asymptomatic but would like to donate blood and would like to ensure he does not have COVID-19 before reporting to [facility] to donate. No other complaints at this time. ROS Const Constitutional: No other (As above) Exam Const General: cooperative, healthy appearing, comfortable and no acute distress Nutritional Appearance: average body habitus and well nourished Orientation: alert, awake and oriented x3 HENMT Head: normal to inspection Ears: external ears normal Nose: external nose normal Eyes General: appearance normal, both eyes and all related structures Neck Neck: normal visual inspection Chest Chest palpation inspection: normal inspection of the chest Resp Effort Inspection: normal respiratory effort, able to speak in complete sentences and symmetric chest movement Cardio Rate: regular rate Pulses: radial pulses present Skin General: no rashes or lesions noted Neuro General: patient alert, patient awake, patient oriented x3 and gait normal Cognition: normal cognition Speech: speech normal Gait: normal gait Motor: muscle tone normal throughout Sensory Exam: no sensory deficits noted Psych Appearance: grossly normal Mental Status: mental status grossly normal Mood: congruent mood Affect: normal affect Speech and Movement: speech and movement normal Attitude: cooperative Thought Process: normal Thought Content: normal Judgment: judgment good Coding Level of Care Code Off vis,est,level 2 Diagnoses Encounter for screening for COVID-19 Z11.52 Assessment and Plan Assessment and Plan (1) Encounter for screening for COVID-19: Status: Acute Plan - Clinton DC PA: Cepheid POC screening in office today. Results called to patient at his request. Patient states acknowledging understanding all the above. Follow-up with PCP on an as-needed basis only. Patient states acknowledging understanding all the above. Plan Details Other Orders: Orders: POC CEPHEID RESP PANEL Today Z20.822 07/12/21 1003 <Electronically signed by Clinton DC> Date Clinton DC Cosigner Signature: Date (if applicable) CC: Jazlyn Zayas DO Work Phone: Start: 03-20-2021 End: 03-20-2021 Stress Report Comments: See Note; NOTES: [facility] Cardiovascular Services [address] [place] [address] MR#: [id number] Acct: [id number] Name: JESUS ALBERTO GUEVARA Jr. Rep #: [id number] : 1940 81 From: Ronnie Khan MD Primary Care: Dr. Jazlyn Zayas, DO Status: REG CLI Referring Dr: Liliana Henry Sex: M C Stress Test Report Exercise myocardial perfusion stress test. 81-year-old male with a history of chest pain. Stress protocol: Resting EKG demonstrates sinus bradycardia with a rate of 55 bpm normal intervals are noted resting blood pressure is 130/72 mmHg. The patient exercised according to regular [place] protocol for total duration of 8 minutes the maximum heart rate attained was 131 bpm which was 93% of maximum predicted heart rate the maximum workload was 10.1 metabolic equivalents. At rest there were no ST or T wave changes noted to suggest ischemia and at peak exercise upsloping ST changes were noted with did not meet the criteria for ischemia. No clinical angina was noted the test was terminated due to the target heart rate being achieved. Myocardial perfusion protocol. 15.0 mCi of technetium 99m sestamibi was injected at rest. The patient exercised according to regular [place] protocol for 8 minutes and at peak exercise 45.0 mCi of technetium 99m sestamibi was injected stress images were obtained stress and rest images were reconstructed in comparing the short axis vertical long and horizontal long axis. Gated images were also obtained per Perfusion SPECT analysis: Review of the stress images demonstrate normal uptake of tracer noted in all areas of the myocardium the resting images similarly demonstrate normal uptake of tracer noted in all areas of the myocardium. No areas of reversibility are noted to suggest ischemia and no previous infarct is noted. Gated SPECT analysis: The gated ejection fraction is noted to be 62%. Conclusion: Normal exercise myocardial perfusion stress test at a high workload. Preserved ejection fraction. 03/20/21 6807 <Electronically signed by Ronnie Khan MD> Date Ronnie Khan MD CC: DAO Henry; Dr. Jazlyn Zayas, Date Dictated: 03/20/211701 Date Transcribed: 03/20/211701 Network Operations Specialist: [place] Signed Jazlyn Zayas DO Work Phone: Start: 03-07-2021 End: 03-08-2021 Cardiology Visit Report Comments: See Note; NOTES: [facility] [address] [place] [address] OFFICE VISIT Date of Service: 03/07/21 MR#: [id number] Acct: [id number] Name: JESUS ALBERTO GUEVARA Jr. Rep #: [id number] : 1940 Provider: DAO Cespedes Age/Sex: 81/M Location: [facility] Status: Signed HPI HPI History of Present Illness Details: This is a 81-year-old gentleman that presents here today for a cardiovascular follow-up. He has a history of coronary artery disease with angioplasty and stenting to his LAD in 2012. He also has a history of TIA, hyperlipidemia, chronic kidney disease. From a cardiac standpoint, patient is doing well. He does not have any chest discomfort/heaviness/tightn ess. His exercise tolerance is stable for his age. He does go to [employer] several times a week. He does not have any worsening symptoms of shortness of breath. He denies any PND. He does not have any orthopnea. He does not have any symptoms of congestive heart failure. He does not have any palpitations that he is aware of. He does occasionally have positional dizziness. He does not have any near-syncope or syncope. He does not have any lower extremity edema. He does not have any symptoms of claudication. Intake Vital Signs 03/07/21 09:02 03/07/21 09:06 Height 5 ft 11 in BP 146/80 H 130/80 H Blood Pressure Location Lt brachial Position Sitting Respiration 18 Pulse 53 L Pulse Source Monitor Pulse Oximetry (%) 99 Intake Visit Reasons: 1 Y FU (we r/s from [facility] 02/28/21) Claims Adjustor Required: No Is patient in pain?: No Allergies No Known Allergies Allergy (Verified 03/07/21 09:03) Medications cholecalciferol (vitamin D3) 2,000 unit PO DAILY 10/10/18 [History Confirmed 03/07/21] aspirin 81 mg tablet,delayed release 81 mg PO DAILY 03/07/21 [History Confirmed 03/07/21] [facility] Medical History Atherosclerotic heart disease of [place] coronary artery without angina pectoris CKD (chronic kidney disease) stage 3, GFR 30-59 ml/min Contact with and (suspected) exposure to other viral communicable diseases 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 History of CVA (cerebrovascular accident) Hyperlipidemia Perforation of sigmoid colon due to diverticulitis Prostate cancer Tapeworm infection TIA (transient ischemic attack) (09/2018) Surgical History History of Achilles tendon repair History of appendectomy History of colonoscopy (2008) History of coronary artery stent placement (02/06/13) History of laparoscopic cholecystectomy History of right inguinal hernia History of tonsillectomy Family History Mother Heart disease Social History Smoking Status: Former smoker ROS Const Const: Negative for fatigue, weakness, headache(s), frequent falls, excessive sweating, weight gain or weight loss Eyes Eyes: Negative for blind spots, loss of peripheral vision, transient loss of vision, blurry vision, change in vision or double vision ENT ENT: Negative for headache(s), dizziness, tinnitus, Nosebleed/epistaxis or balance problems Cardio Chest Pain: No Palpitations: No Edema: None Muscle aches with walking: None Resp Respiratory: Negative for SOB with activity, SOB at rest, SOB orthopnea SOB lying down or Cough GI GI: Negative nausea, vomiting, heartburn, bloating, vomiting blood/hematemesis, bright, red blood in stools or black,tarry stools : Negative for hematuria Musc Musc: Negative for muscle aches/ myalgia, muscle weakness, joint pain or balance problems Skin Skin: Negative rash or wounds Neuro Neuro: Negative for dizziness, lightheadedness, near syncope, syncope, orthostatic symptoms, frequent falls, headache(s), weakness, confusion, memory loss, restless legs, blurry vision or double vision Joaquim Hematologic/Lymphatic: Negative for easy bleeding or easy bruising Endo Endo: Negative for fatigue, cold intolerance, heat intolerance or excessive sweating Psych Psych: Negative for anxiety or depression Allergy Allergy/Immunology: Negative for rash Cardiology Exam Const Appearance: cooperative, healthy appearing, comfortable, no acute distress and well developed Orientation: alert, awake and oriented x3 Head Head: normal to inspection Ears: hearing grossly normal bilaterally Nose: external nose normal Face and Sinus: face symmetric Mouth: oral mucosae normal, lip normal and moist mucous membranes Eyes General: appearance normal, both eyes and all related structures Eyelids: eyelids normal Conjunctivae: conjunctivae normal Pupils: PERRL EOM: EOM intact bilaterally Neck Neck: normal visual inspection and trachea midline; Negative no JVD Carotids: Negative bruit Chest Chest inspection: normal inspection of the chest Auscultation: Bilateral: Clear to Auscultation Cardio Palpation: normal PMI Rate: regular rate Rhythm: regular rhythm Heart sounds: S1 normal and S2 normal; Negative rub, gallop or murmur GI GI: soft, no hepatosplenomegaly and bowel sounds present Neuro General: patient alert, patient awake, patient oriented x3 and CN's II-XI intact bilaterally Extremities Pulses: Normal: Right Posterior Tibial Pulse, Left Posterior Tibial Pulse, Right Radial Pulse and Left Radial Pulse Lower Extremity Edema: None: Bilateral Psych Psychological: normal affect Assessment and Plan Assessment and Plan (1) Atherosclerotic heart disease of [place] coronary artery without angina pectoris: Status: Chronic Orders: Orders: Nuclear Stress Test - Treadmil 03/07/21 Plan - Liliana DC, PA: It has been greater than 5 years since patient has had a stress test. Would like to pursue this to assure stability of his coronary artery disease. He will continue with his risk factor modification and his aspirin. 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) Coding Level of Care Code Off vis,est,level 3 Diagnoses Atherosclerotic heart disease of [place] coronary artery without angina pectoris I25.10 Coding Level of Care Code Off vis,est,level 3 Diagnoses Atherosclerotic heart disease of [place] coronary artery without angina pectoris I25.10 Supplemental Info Supplemental Information Labs: No Data to Display Diagnostics: Electrocardiogram Pulmonary: No Data to Display 03/08/21 0842 <Electronically signed by Liliana DC P A> Date Liliana Kruse Signature: Date (if applicable) CC: DO Jazlyn Mason DO Work Phone: Start: 11-18-2020 End: 11-18-2020 Pelvis 1 or 2 Views Comments: See Note; NOTES: [facility] Imaging Services [address] [place] [address] Pelvis 1 or 2 Views MR#: [id number] Acct: [id number] Name: JESUS ALBERTO GUEVARA . Rep #: [id number] : 1940 M 80 From: Shine crockett MD PCP: Dr. Jazlyn Zayas DO Status: REG CLI Study: Pelvis 1 or 2 Views Date of Exam: 11/18/20 Exam# [id number] Ordering Dr: Rosalba Lester MD INDICATION: PAIN EXAMINATION/TECHNIQUE: X-RAY - XR Pelvis 1 or 2 Views COMPARISON: None. FINDINGS: PELVIC BONES: Age indeterminate avulsion fracture of the right lesser trochanter. Note that overlapping bowel shadows may however obscure fine detail. Sacroiliac joints are unremarkable. No widening of the pubic symphysis. HIPS: The articular structures are unremarkable. No displaced fracture seen in this frontal view. SOFT TISSUES: No soft tissue swelling or gas. Metallic radiation seeds are seen within the prostate. RAD/Pelvis 1 or 2 Views IMPRESSION: Age indeterminate avulsion fracture of the right lesser trochanter. Electronically Signed: Shine Szymanski MD at 23:10 EDT Tel , Service support , CC: Dr. Jazlyn Zayas DO; Dr. Rosalba Lester MD Network Operations Specialist: Signed Jazlyn Zayas DO Work Phone: Start: 02-25-2020 End: 03-01-2020 12 Lead EKG performed by [facility] Comments: See Note; NOTES: [facility] [address] [place] [address] 12 Lead EKG performed by [facility] 02/25/20 1349 MR#: [id number] Acct: [id number] Name: JESUS ALBERTO GUEVARA Jr. Rep #: [id number] : 1940 80 From: Ronnie Khan MD Attending Dr: Dr. Ronnie Khan MD Status: DEP A MB Ordering Dr: Ronnie Khan MD Date: 02/25/20 [place] [facility] [place] M C Admitted: [facility]/12 Lead EKG performed by [facility] ECG Report Interpretation S inus Bradycardia - Nonspecific T-abnormality. ABNORMAL Electronically signed on 03/01/2020 at 10:12 by Ronnie Khan Software Version [id number] 03/01/20 1035 Date Ronnie Khan MD CC: Dr. Jazlyn Zayas DO Date Dictated: 02/25/20 1349 Date Transcribed: 02/25/20 1349 Network Operations Specialist: [place] Signed Jazlyn Zayas Start: 02-25-2020 End: 02-25-2020 Cardiology Visit Report Comments: See Note; NOTES: [facility] [address] [place] [address] OFFICE VISIT Date of Service: 02/25/20 MR#: [id number] Acct: [id number] Name: JESUS ALBERTO GUEVARA Jr. Rep #: [id number] : 1940 Provider: Dr. Ronnie Khan MD Age/Sex: 80/M [place] [facility] Status: Signed [facility] History of Present Illness Details: There is a preoperative cardiovascular evaluation for Mr. Guevara. He is scheduled to undergo nasal septoplasty. He does have a remote coronary artery disease history status post angioplasty and stenting of the left anterior descending artery in 2012. He also has a history of tobacco use previously. He tells me that approximately a year ago he had been walking to the restroom experienced left sided lower extremity weakness and confusion. He was brought to the emergency room where an acute CT scan demonstrated no evidence of acute infarct CTA did not demonstrate any significant abnormalities. An echocardiogram performed demonstrated preserved ventricular ejection fraction. He had discontinued his aspirin a few years prior to this. He was put back on it. He has done well since. He has had no neck arm or jaw discomfort suggest angina no dizziness or diaphoresis no near syncope or syncope his blood pressure has been under good control. His echocardiographic findings from a year ago were reviewed and noted to be normal. His EKG does not demonstrate any acute changes. His physical exam demonstrates clear lung serrano regular rate and rhythm no carotid bruit and no pedal edema. Intake Vital Signs 02/25/20 Height 5 ft 11 in 02/25/20 Weight: 219 lb 02/25/20 BMI 30.5 02/25/20 BP 146/78 H 02/25/20 Respiration 16 02/25/20 Pulse 62 02/25/20 Pulse Oximetry (%) 98 Intake Visit Reasons: cardiac clearance Allergies No Known Allergies Allergy (Verified 01/12/20 13:34) Medications Cholecalciferol (Vitamin D3) [Vitamin D3] 2,000 unit PO DAILY 10/10/18 [History Confirmed 02/25/20] omega-3 fatty acids 1,000 mg capsule 1,000 mg PO DAILY 01/12/20 [History Confirmed 02/25/20] ascorbate calcium (vitamin C) 500 mg tablet 500 mg PO DAILY 02/25/20 [History Confirmed 02/25/20] [facility] Medical History Atherosclerotic heart disease of [place] coronary artery without angina pectoris (Chronic) Hyperlipidemia (Chronic) CKD (chronic kidney disease) stage 3, GFR 30-59 ml/min (Chronic) TIA (transient ischemic attack) (Resolved 09/2018) Prostate cancer (Chronic) Tapeworm infection (Resolved) History of CVA (cerebrovascular accident) (Ruled-out) 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 Ronnie Khan MD) Smoking Status: Former smoker ROS Const Const: Negative for fatigue, weakness, headache(s), frequent falls, difficulty sleeping or excessive sweating Eyes Eyes: Negative for loss of peripheral vision, transient loss of vision, blurry vision, double vision or tunnel vision ENT ENT: Negative for headache(s), dizziness, Nosebleed/epistaxis or balance problems Cardio Chest Pain: No Palpitations: No Edema: None Muscle aches with walking: None Resp Respiratory: Negative for SOB with activity, SOB at rest, SOB orthopnea SOB lying down, Cough or paroxysmal nocturnal dyspnea GI GI: Negative nausea, vomiting, heartburn or black,tarry stools : Negative for hematuria Musc Musc: Negative for muscle aches/ myalgia, muscle weakness, joint pain or balance problems Skin Skin: Negative non-healing lesions, rash or unusual bruising Neuro Neuro: Negative for dizziness, lightheadedness, near syncope, syncope, orthostatic symptoms, frequent falls, headache(s), weakness, blurry vision, double vision or lack of coordination Joaquim Hematologic/Lymphatic: Negative for easy bleeding or easy bruising Endo Endo: Negative for fatigue, excessive sweating or increased thirst/drinking Psych Psych: Negative for anxiety or depression Allergy Allergy/Immunology: Negative for hives, Negative for rash Cardiology Exam Const Appearance: cooperative, healthy appearing, no acute distress, well developed and well groomed Nutritional Appearance: average body habitus and well nourished Orientation: alert, awake and oriented x3 Head Head: normal to inspection, normocephalic and atraumatic Ears: hearing grossly normal bilaterally and external ears normal Nose: external nose normal, nares normal, nasal mucous membranes and turbinates normal, septum normal, no nasal discharge Face and Sinus: face symmetric Mouth: oral mucosae normal, tongue normal, oropharynx normal and moist mucous membranes Teeth and gingiva: dentition normal Throat: posterior oropharynx normal, tonsils normal and uvula midline Eyes General: appearance normal, both eyes and all related structures Eyelids: eyelids normal Conjunctivae: conjunctivae normal Pupils: PERRL, normal by confrontation and accommodation normal EOM: EOM intact bilaterally Neck Neck: normal visual inspection, trachea midline and no JVD JVD: +5 Carotids: normal carotid upstroke and bounding pulses Chest Chest inspection: normal inspection of the chest, symmetric chest movement and normal respiratory effort Auscultation: Bilateral: Clear to Auscultation Cardio Palpation: normal PMI Rate: regular rate Rhythm: regular rhythm Heart sounds: S1 normal, S2 normal and normal, physiologic split S2; negative rub, gallop or murmur GI GI: normal to inspection, soft, no hepatosplenomegaly and bowel sounds present Neuro General: alert, awake, oriented x3, gait normal, moves all extremities and no focal sensory deficit Skin Skin: no rashes or lesions noted Extremities Pulses: Normal: Right Femoral Pulse, Left Femoral Pulse, Right Dorsalis Pedis Pulse, Left Dorsalis Pedis Pulse, Right Posterior Tibial Pulse, Left Posterior Tibial Pulse, Right Radial Pulse, Left Radial Pulse Lower Extremity Edema: None: Bilateral Musculoskel Musculoskeletal: No joint tenderness Psych Psychological: normal affect Assessment Plan 1. Preop cardiovascular exam Z01.810 Plan His preoperative cardiovascular exam at the moment appears to be stable. For the intended surgery I do not think that he needs any further work-up. 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 The aspirin can be discontinued but will be left to the discretion of the surgeon. Orders Orders: 12 Lead EKG performed by [facility] Today 2. History of coronary artery stent placement Z95.5 PCI-TAMEKA-LAD Plan He is status post previous angioplasty and stenting of the left anterior descending artery remotely. He remains free of any symptomatology I would not recommend any testing at this time for this upcoming surgery. Orders Orders: 12 Lead EKG performed by [facility] Today 3. Hyperlipidemia E78.5 Plan He will continue with risk factor modification regarding his lipids. 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 Woo Fuller MD; Dr. Jazlyn Zayas, DO Jazlyn Zayas Start: 01-12-2020 End: 01-12-2020 Urgent Care Visit Report Comments: See Note; NOTES: [facility] [address] [place] [id number] OFFICE VISIT Date of Service: 01/12/20 MR#: [id number] Acct: [id number] Name: JESUS ALBERTO GUEVARA Jr. Rep #: [id number] : 1940 Provider: DAO Rodriguez Age/Sex: 79/M Location: [facility] Status: Signed Intake Vital Signs 01/12/20 BMI 30.1 01/12/20 Height 5 ft 11 in 01/12/20 Weight: 215 lb 01/12/20 BMI 29.9 01/12/20 BP 124/86 H 01/12/20 Respiration 16 01/12/20 Pulse 78 01/12/20 Temp 97.6 F L 01/12/20 Temp Source Temporal 01/12/20 Pulse Oximetry (%) 99 01/12/20 Oxygen Delivery Method room air Intake Visit Reasons: ORDER FOR COVID Chief Complaint: COVID-19 Claims Adjustor Required: No Accompanied by: SELF Is patient in pain?: No Allergies No Known Allergies Allergy (Verified 01/12/20 13:34) Medications Cholecalciferol (Vitamin D3) [Vitamin D3] 2,000 unit PO DAILY 10/10/18 [History Confirmed 01/12/20] omega-3 fatty acids 1,000 mg capsule 1,000 mg PO DAILY 01/12/20 [History Confirmed 01/12/20] [facility] Medical History Perforation of sigmoid colon due to diverticulitis (Chronic) TIA (transient ischemic attack) (Acute) CAD (coronary artery disease) (Chronic) CKD (chronic kidney disease) stage 3, GFR 30-59 ml/min (Chronic) 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 (Acute) Hyperlipidemia (Acute) Prostate cancer (Acute) Surgical History History of Achilles tendon repair (Acute) History of appendectomy (Acute) History of colonoscopy (Acute 2008) History of heart artery stent (Acute) History of laparoscopic cholecystectomy (Acute) History of right inguinal hernia (Acute) History of tonsillectomy (Acute) Family History Mother Heart disease Social History (Updated 01/12/20 @ 13:42 by DAO Dobbs) Smoking Status: Former smoker HPI HPI Chief Complaint: COVID-19 Details: JESUS ALBERTO GUEVARA, is a 79 M who presents to the office today for concern for possible coronavirus infection. Patient states that approximately 2-1/2 to 3 weeks ago he did have a loss of taste and smell that lasted approximately 3 to 4 days. Since that time. He has had continued intermittent headaches, body aches and fatigue. He states that he has good days and bad days with yesterday being 1 of the days that he felt rather rundown. He denies fever, chills, sweats. No cough, shortness of breath or difficulty breathing. No nausea, vomiting, diarrhea. No known ill contacts. No other associated symptoms or alleviating/aggravating factors. ROS Const Constitutional: Positive for other (6 system ROS completed with pertinent findings in the HPI otherwise normal.) Exam Const General: cooperative, healthy appearing [facility] Head: normocephalic, atraumatic Ears: hearing grossly normal bilaterally Nose: external nose normal Face and sinus: normal facial exam, face symmetric Mouth: oral mucosae normal Throat: posterior oropharynx normal Eyes General: appearance normal, both eyes and all related structures Pupils: PERRL Resp Effort Inspection: normal respiratory effort Auscultation: Bilateral: Clear to Auscultation Cardio Palpation: normal PMI Rate: regular rate Rhythm: regular rhythm Skin General: no rashes or lesions noted Neuro General: alert, CN's II-XI intact bilaterally Psych Appearance: grossly normal Mental Status: mental status grossly normal Assessment Plan Problems 1. Contact with and (suspected) exposure to other viral communicable diseases Z20.828 Status Acute Plan Coronavirus testing as ordered today. Encouraged to get plenty of rest, drink lots of clear liquids, and use Tylenol or Ibuprofen (unless contraindicated) for fever and comfort. Patient also educated on other symptomatic management techniques. Patient advised that he should quarantine himself until results return or 14 days if he is positive. Patient advised of potential red flags and when appropriate to report to the ED. Patient verbalized understanding and agreement with all the above. Orders Orders: CORONAVIRUS 19, RIVKA SCREEN Today Z20.828 Coding Level of Care Code Off vis,new,level 3 Diagnoses Contact with and (suspected) exposure to other viral communicable diseases Z20.828 01/12/20 1342 <Electronically signed by Mau DC> Date Mau DC Cosigner Signature: Date (if applicable) CC: Jazlyn Zayas Start: 04-30-2019 End: 04-30-2019 Operative Report - Endoscopy Comments: See Note; NOTES: [facility] Medical Records Department [address] [place] [address] Operative Report - Endoscopy MR#: [id number] Acct: [id number] Name: JESUS ALBERTO GUEVARA Jr. Rep #: [id number] : 1940 79 From: Aria Leslie MD PCP: Jazlyn Zayas DO Status: [facility] 04/30/2019 Jazlyn Zayas [address] [facility], [address] [place] [address] Re : Colonoscopy procedure for Jesus Alberto Guevara Dear Dr. Zayas This procedure was performed on Monday, April 29, 2019. My impressions and recommendations are as follows: Impressions : - No specimens collected. Recommendations : - Discharge patient to home. - High fiber diet. - Continue present medications. - Await pathology results. - Repeat colonoscopy in 3 - 5 years for surveillance based on pathology results. My findings are described in the full procedure note, which is enclosed. If I can be of further assistance, please feel free to contact me at Doctor phone number(s): , Work: . Sincerely, MD Aria Kathleen MD 04/29/2019 9:15:21 AM This report has been signed electronically. 04/30/19 1139 Date Aria Leslie MD Cosigner Signature: Date (if indicated) CC: Jazlyn Zayas DO; Aria Leslie MD Date Dictated: 04/29/19 0839 Date Transcribed: Network Operations Specialist: TR Signed Jazlyn Zayas Start: 04-30-2019 End: 04-30-2019 Operative Report - Endoscopy Comments: See Note; NOTES: [facility] Medical Records Department [address] [place] [address] Operative Report - Endoscopy MR#: [id number] Acct: [id number] Name: JESUS ALBERTO GUEVARA Jr. Rep #: [id number] : 1940 79 From: Aria Leslie MD PCP: Jazlyn Zayas DO Status: [facility] 04/29/2019 Jazlyn Jose Manuel [address] [facility] [place] [address] Re : Colonoscopy procedure for Jesus Alberto Paola Dear Dr. Zayas This procedure was performed on Saturday, April 29, 2019. My impressions and recommendations are as follows: Impressions : - No specimens collected. Recommendations : - Discharge patient to home. - High fiber diet. - Continue present medications. - Await pathology results. - Repeat colonoscopy in 3 - 5 years for surveillance based on pathology results. My findings are described in the full procedure note, which is enclosed. If I can be of further assistance, please feel free to contact me at Doctor phone number(s): , Work: . Sincerely, MD Aria Kathleen MD 04/29/2019 9:15:21 AM This report has been signed electronically. 04/29/191008 Date Aria Leslie MD Cosigner Signature: Date (if indicated) CC: Jazlyn Zayas DO; Aria Leslie MD Date Dictated: 04/29/19 0839 Date Transcribed: Network Operations Specialist: TR Signed Jazlyn Zayas Start: 04-29-2019 End: 04-29-2019 History and Physical Exam Comments: See Note; NOTES: [facility] Medical Records Department [address] [facility] [place] [address] History and Physical 04/29/19828 MR#: [id number] Acct: [id number] Name: JESUS ALBERTO GUEVARA Jr. Rep #: [id number] : 1940 79 From: Aria Leslie MD PCP: Jazlyn Zayas DO Status: [facility] Location: [place] [address] History of Present Illness Date of Admission: 04/29/19 The patient is a 79 year old M presents for screening colonoscopy. Patient did have a recent history of perforated diverticulitis which has healed and the abscess did resolve. Patient also had tapeworm as he does go fishing in [employer] yearly. He was also treated and seen by infectious disease with 3 rounds of treatment. Patient denies abdominal pain nausea or vomiting. Patient's last colonoscopy was about 15 years ago-- Negative at that time per patient. Past Medical/Surgical History - Planned Operation Planned Operative Procedure/s: cscope Date of Operative Procedure: 04/29/19 Permit Signed: No S.O.S: No Is This Patient Having a Total Joint: No - Previous Hospitalizations/Surgeries HX Hospitalizations: Yes HX of Surgeries: RUPTURED ACHILLES TENDON. DEVIATED SEPTUM. APPY. GIO. HERNIA X2. STENT, CARDIAC. bk. cscope. cataract bilat Any Problems With Anesthesia: No You/Your Family Experience Fever (Hyperthermia) With Anes: No Cholinesterase deficiency: No - Cardiovascular Hx Chest Pain within Last 2 months: No Hx of Irregular Heartbeat and/or Afib: No - had followed with dr angulo/last visit 2 yrs ago Hx Heart Attack: Yes - 12-15 YRS AGO Hx Congestive Heart Failure: No Hx Rheumatic Fever: No Hx Hypertension: No Hx Internal Defibrillator: No Hx Pacemaker: No Hx Cardiac Catheterization: Yes - 1999 What facility was last heart cath performed: [facility] Date of last Heart Cath: 1999 Hx Cardiac Surgery/Stents/Etc.: Yes - heart stent 12 yrs ago Hx Stress Test: Yes - over 5 yrs ago/efho 2018 HX Edema: No Hx Pain in Legs when Walking/Leg Cramps: No - Respiratory Chronic Cough: No HX of Shortness of Breath: No Hoarseness: No Hx Chronic Obstructive Pulmonary Disease (COPD): No Hx Asthma: No Hx Emphysema: No Hx Sleep Apnea: Yes CPAP: Yes - noncompliant BIPAP: No Hx Oxygen Use at Home: No Hx Respiratory Tract Infection/Cold (presently): No Result (for STOP score): Positive Hx Smoking: Yes - QUIT Smoking Status: Former smoker - Gastrointestinal Hx Gastroesophageal Reflux: No - occ heartburn Hx Gastrointestinal Disorders: No Hx Gastrointestinal Bleed: No Hx Ulcer: No Hx Hiatal Hernia: No Difficulty Chewing/Swallowing: No Recent Onset of Swallowing Problems: No Special diet followed at home: No Hx Unplanned Weight Loss of 20#: No HX Unplanned Weight Gain of 20#: No - Neurological Hx Seizures: No HX Syncope/Blackout Spells/Unconsciousness: No Hx CVA/Stroke: No - tia 2019/no deficits Hx Transient Ischemic Attacks (TIA): Yes - . Hx Multiple Sclerosis: No Hx Parkinson's Disease: No Hx Head/Neck Injury: No Hx Headaches: Yes - migraines occ Hx Back Injury/Pain: No Recent Onset of Speech Difficulty: No Restless Legs: No Does patient have nerve stimulator: No Patient instructed to have device shut off: No Rep notified?: No - Blood Disorder Hx Leukemia: No Bleeding Tendencies: Yes - bruises easily Hx Deep Vein Thrombosis: No Hx High Cholesterol: Yes - no meds Blood Transmitted Disease: No Hx Hepatitis: No Hx Cirrhosis: No Hx Anemia: No Hx Blood Disorders: No - LYMES DISEASE 30 YRS AGO-RESOLVED - Genitourinary Hx Renal Disease: Yes - ckd stage 3/prostate cancer Hx Dialysis: No - Musculoskeletal Hx Arthritis: Yes - AGE RELATED Hx Rheumatoid Arthritis: No Hx Gout: No Recent Onset of an Orthopedic Problem: No - Endocrine Hx Diabetes: No Thyroid Disease: No Hx Steroid Therapy: No - Psycho/Social Hx Substance Use: No Hx Alcohol Use: No Hx Anxiety: No Hx Depression: No Mental Illness: No Hx Dementia: No - Miscellaneous Hx Cancer: Yes - prostate cancer/remission Recent Exposure to Contagious Disease: No Active MRSA: No Hx of C-Diff: No Any Loose Teeth: No Allergies No Known Allergies Allergy (Verified 04/28/19 11:31) Maternal Family History: Family History (Last Reviewed 01/15/19 @ 08:24 by Ariela Romero) Mother Heart disease No pertinent history Paternal Family History: Family History (Last Reviewed 01/15/19 @ 08:24 by Ariela Romero) Mother Heart disease - - Patient notes that his father at age 55 secondary to complications of heart disease and was a very avid tobacco user. - Discharge Is Pt Admitted From a Snf, or a Detention: No Who Could Help: After D/C, Where Do you Plan to Go: Return Home - From the PAT History Number of Risk Factors: 3 - Physical Exam General: Alert, Oriented x3, Cooperative, No apparent distress HEENT: Atraumatic Lungs: Normal air movement Cardiovascular: Regular rate Abdomen: Soft, Non Tender, Non-Distended Extremities: No clubbing, No cyanosis, No edema Neurological: Cranial nerves II-XII grossly intact Psych/Mental Status: Normal Affect Vital Signs Temp Pulse Resp BP Pulse Ox 97.8 F 62 16 134/83 H 97 04/29/19 08:09 04/29/19 08:09 04/29/19 08:09 04/29/19 08:09 04/29/19 08:09 Oxygen Delivery Method Room Air Weight: 215 lb 13.321 oz Body Mass Index (BMI) 30.1 Finger Stick Blood Glucose 102 Assessment/Plan All Active Problems (Last Reviewed 01/15/19 @ 08:24 by Ariela Romero) TIA (transient ischemic attack) (Acute) 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 No further questions this time. 04/29/19829 <Electronically signed by Aria Leslie MD> Date Aria Leslie MD Cosigner Signature: Date (if applicable) CC: Jazlyn Zayas DO; Aria Leslie MD Signed Jazlyn Zayas Start: 01-15-2019 End: 01-15-2019 Surgery Visit Report Comments: See Note; NOTES: [facility] [address] [place], [place] [address] OFFICE VISIT Date of Service: 01/15/19 MR#: [id number] Acct: [id number] Name: JESUS ALBERTO GUEVARA Rep #: [id number] : 1940 Provider: Aria Leslie MD Age/Sex: 78/M Location: [facility] Status: Signed Intake Vital Signs01/15/19 Body Mass Index (BMI) 30.4 Intake Visit Reasons: 1 mo FU Perforated Diverticulits Chief Complaint: f/u diverticulitis--discuss colonoscopy Claims Adjustor Required: No Is patient in pain?: No Allergies No Known Allergies Allergy (Verified 01/15/19 08:26) Medications Cholecalciferol (Vitamin D3) [Vitamin D3] 2,000 unit PO DAILY 10/10/18 [History Confirmed 01/15/19] Clopidogrel Bisulfate [Plavix] 75 mg PO DAILY #30 tab 10/24/18 [Rx Confirmed 01/15/19] aspirin 81 mg tablet,delayed release 81 mg PO DAILY 01/15/19 [History Confirmed 01/15/19] atorvastatin 40 mg tablet 40 mg PO DAILY 01/15/19 [History Confirmed 01/15/19] PFSH Medical History Perforation of sigmoid colon due to diverticulitis (Chronic) TIA (transient ischemic attack) (Acute) CAD (coronary artery disease) (Chronic) CKD (chronic kidney disease) stage 3, GFR 30-59 ml/min (Chronic) 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 (Acute) Hyperlipidemia (Acute) Prostate cancer (Acute) Surgical History (Updated 01/15/19 @ 08:25 by Ariela Romero) History of Achilles tendon repair (Acute) History of appendectomy (Acute) History of colonoscopy (Acute 2008) History of heart artery stent (Acute) History of laparoscopic cholecystectomy (Acute) History of right inguinal hernia (Acute) History of tonsillectomy (Acute) Family History Mother Heart disease Social History (Updated 01/15/19 @ 10:14 by Aria Leslie MD) Smoking Status: Former smoker HPI HPI HPI: JESUS ALBERTO GUEVARA, is a 78 M who presents to the office today for follow-up for perforated diverticulitis with abscess. Patient's last CT on 10/26/2018 shows resolution of the abscess. Patient states is been doing well on a high-fiber diet is having normal bowel function denies any blood. Patient denies any abdominal pain. Patient's last colonoscopy was quite about 15 years ago which he states was negative at that time. Patient still currently on Plavix due to his TIA along with aspirin. Patient is to be on Plavix for a total of 3 months which he has 1 month left. HPI HPI HPI: JESUS ALBERTO GUEVARA, is a 78 M who presents to the office today for Exam Const General: cooperative, comfortable, no acute distress Resp Effort AND Inspection: normal respiratory effort Cardio Rate: regular rate GI Inspection: non-distended Palpation: soft, no guarding, no hernias, nontender Assessment AND Plan Problems 1. Perforation of sigmoid colon due to diverticulitis K57.20 2. TIA (transient ischemic attack) G45.9 3. Screening for colon cancer Z12.11 Plan Patient has been doing well high-fiber diet. Patient scheduled to continue his Plavix for another month. Discussed patient we could do the colonoscopy prior to that however we need to do larger biopsy would need to stop and redo the prep. Patient was agreeable to wait until after his Plavix is complete and we will plan to keep him on his aspirin to do the colonoscopy. I have discussed the above with the patient. I have offered the patient colonoscopy for evaluation. I have explained the risks/benefits of the procedure and described the procedure. I have discussed the risks with the patient, including but not limited to: infection, bleeding, perforation of the GI tract requiring emergency surgery, inability to complete the procedure, injury to any internal organs, complications of anesthesia, etc. - the patient understands and agrees to proceed. I have answered all the patient's questions to the patient's satisfaction and the patient has no further questions. The patient has been given instructions for the colon cleansing preparation. 1 day clears, MiraLAX Dulcolax split prep. Aria Leslie M.D. Pager: [phone] [facility] [address] [place] [address], [facility], [address] [place] [address] Office: [phone] Plan Detail Follow Up Will schedule colonoscopy in approximately 1 month. Coding Level of Care Code Off vis,est,level 3 Diagnoses Perforation of sigmoid colon due to diverticulitis K57.20 TIA (transient ischemic attack) G45.9 Screening for colon cancer Z12.11 01/15/19 1014 <Electronically signed by Aria Leslie MD> Date Aria Leslie MD Cosigner Signature: Date (if applicable) CC: Jazlyn Jose Start: 12-11-2018 End: 12-11-2018 Surgery Visit Report Comments: See Note; NOTES: [facility] [address] [place] [address]. [address] [place] [address] OFFICE VISIT Date of Service: 12/11/18 MR#: [id number] Acct: [id number] Name: JESUS ALBERTO GUEVARA Rep #: [id number] : 1940 Provider: Aria Leslie MD Age/Sex: 78/M Location: [facility] Status: Signed Intake Intake Visit Reasons: F/U Perforated Diverticulitis Chief Complaint: ABDOMINAL PAIN Claims Adjustor Required: No Is patient in pain?: No Allergies No Known Allergies Allergy (Verified 12/11/18 08:21) Medications Cholecalciferol (Vitamin D3) [Vitamin D3] 2,000 unit PO DAILY 10/10/18 [History Confirmed 12/11/18] Clopidogrel Bisulfate [Plavix] 75 mg PO DAILY #30 tab 10/24/18 [Rx Confirmed 12/11/18] Subjective Details: Patient presents for follow-up of perforated diverticulitis with an abscess. Patient CT abdomen pelvis from shows resolution of previous abscess. Patient states he has been doing well. Did have some diarrhea headache on Saturday but his had about the same thing the week before. States his balance are normal today denies any abdominal pain needing a high-fiber diet. Does plan to go on vacation second week of December to [place]. Patient did go back on his Plavix he is currently out of his statin and will talk to his PCP Dr. Zayas about refills. Objective Details: Abdomen: Soft, nondistended, nontender, no peritoneal signs Assessment AND Plan Problems 1. Perforation of sigmoid colon due to diverticulitis K57.20 2. TIA (transient ischemic attack) G45.9 Plan Will patient follow-up in about 4 weeks. Continue the high-fiber diet. Will plan to do his colonoscopy on Plavix after his follow-up he does understand there is any larger biopsy that would be needed he would need to come back and we do the prep when he is able to come off the Plavix. Aria Leslie M.D. Pager: [phone] [facility] [address] [place] [address] [address] [place] [address] Office: [phone] Plan Detail Follow Up 4 Weeks Coding Level of Care Code Off vis,est,level 3 Diagnoses Perforation of sigmoid colon due to diverticulitis K57.20 TIA (transient ischemic attack) G45.9 12/11/18 1012 <Electronically signed by Aria Leslie MD> Date Aria Leslie MD Cosigner Signature: Date (if applicable) CC: Jazlyn Jose Start: 11-25-2018 End: 11-25-2018 Surgery Visit Report Comments: See Note; NOTES: [facility] [address] [place], [place] [id number] OFFICE VISIT Date of Service: 11/25/18 MR#: [id number] Acct: [id number] Name: PAOLAJESUS ALBERTO Giancarlo Rep #: [id number] : 1940 Provider: Aria Leslie MD Age/Sex: 78/M Location: [facility] Status: Signed Intake Intake Visit Reasons: F/U Perforated Diverticulitis Chief Complaint: ABDOMINAL PAIN Claims Adjustor Required: No Is patient in pain?: No Allergies No Known Allergies Allergy (Verified 11/25/18 13:06) Medications Aspirin [Aspirin, Baby] 81 mg PO DAILY 10/10/18 [History Confirmed 11/25/18] Cholecalciferol (Vitamin D3) [Vitamin D3] 2,000 unit PO DAILY 10/10/18 [History Confirmed 11/25/18] Atorvastatin Calcium [Lipitor] 40 mg PO QHS #30 tab 10/24/18 [Rx Confirmed 11/25/18] Clopidogrel Bisulfate [Plavix] 75 mg PO DAILY #30 tab 10/24/18 [Rx Confirmed 11/25/18] Pantoprazole Sodium [Protonix] 40 mg PO DAILY #30 tab 10/26/18 [Rx Confirmed 11/25/18] Subjective Details: Follow-up for diverticulitis with abscess resolved on last CAT scan the end of October. Patient states he has changed to a high-fiber diet as of last week and is doing well denies any abdominal pain he is having bowel movements multiple daily. Patient was having issues with hives and itching all over which started about 2 weeks ago. He did talk with his PCP-Dr. Zayas per the patient and recommended trying to remove medication to see if that would help. Patient eventually did stop taking all of his medications except for the aspirin including the Protonix, Plavix, statin. Patient thinks he has been off these for about a week and half or so. This patient stopped a medication about every other day. Patient then noticed that his Holter monitor, which he stopped wearing about a week and half ago, had red spots where the adhesives was placed. Itching did resolve after removing the Holter monitor. However he did not resume medications. Patient did notice as he was refinishing some furniture he again had stated itching but that again resolved once he was done. Patient also states that after he came off of the all the medication except for the aspirin he felt better states he had increased energy. Patient states he has not talked to Dr. Zayas about this. Patient denies any epigastric pain and states he only had reflux in the esophagus once after eating Vietnamese since he has been off the PPI. Objective Details: Abdomen: Soft, nontender, non-distended, no peritoneal sign Assessment AND Plan Problems 1. Perforation of sigmoid colon due to diverticulitis K57.20 2. TIA (transient ischemic attack) G45.9 Plan Okay for patient to continue the high-fiber diet follow-up in 3 to 4 weeks to talk about possible colonoscopy did discuss with patient could possibly do the colonoscopy on aspirin and Plavix however there are anything larger that would need to be removed patient may need to come back for repeat colonoscopy once he was off Plavix we will discuss further at next appointment. Ok to stop protonix as pt denies any epigastric pain and only rarely has GERD symptoms. Review patient's neurology consult with the patient who was recommended aspirin Plavix for 3 months total and in the statin nightly. Patient was agreeable to discuss this with Dr. Zayas and is also agreeable to restart the Plavix and statin until he sees Dr. Zayas. Encouraged patient to write down any symptoms that he may be having with the medications that he could discuss this further. Aria Leslie M.D. Pager: [phone] [facility] [address] [place] [address], [address] [place] [address] Office: [phone] Plan Detail Follow Up 3-4 weeks Coding Level of Care Code Off vis,est,level 3 Diagnoses Perforation of sigmoid colon due to diverticulitis K57.20 TIA (transient ischemic attack) G45.9 11/25/18 1328 <Electronically signed by Aria Leslie MD> Date Aria Kruse Signature: Date (if applicable) CC: Jazlyn Jose Start: 10-30-2018 End: 10-30-2018 Surgery Visit Report Comments: See Note; NOTES: [address] [place] [address] OFFICE VISIT Date of Service: 10/28/18 MR#: [id number] Acct: [id number] Name: JESUS ALBERTO GUEVARA Rep #: [id number] : 1940 Provider: Aria Leslie MD Age/Sex: 78/M Location: [facility] Status: Signed Intake Vital Signs10/28/18 Body Mass Index (BMI) 30.4 10/28/18 Blood Pressure Location Rt brachial 10/28/18 Blood Pressure Position Sitting 10/28/18 Respiratory Rate 20 H Intake Visit Reasons: [facility] F/U Perforated Diverticulitis Chief Complaint: ABDOMINAL PAIN Claims Adjustor Required: No Is patient in pain?: No Allergies No Known Allergies Allergy (Verified 10/28/18 12:43) Medications Aspirin [Aspirin, Baby] 81 mg PO DAILY 10/10/18 [History Confirmed 10/28/18] Cholecalciferol (Vitamin D3) [Vitamin D3] 2,000 unit PO DAILY 10/10/18 [History Confirmed 10/28/18] Atorvastatin Calcium [Lipitor] 40 mg PO QHS #30 tab 10/24/18 [Rx Confirmed 10/28/18] Clopidogrel Bisulfate [Plavix] 75 mg PO DAILY #30 tab 10/24/18 [Rx Confirmed 10/28/18] Pantoprazole Sodium [Protonix] 40 mg PO DAILY #30 tab 10/26/18 [Rx] PFSH Medical History Perforation of sigmoid colon due to diverticulitis (Chronic) TIA (transient ischemic attack) (Acute) CAD (coronary artery disease) (Chronic) CKD (chronic kidney disease) stage 3, GFR 30-59 ml/min (Chronic) 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 (Acute) Hyperlipidemia (Acute) Prostate cancer (Acute) Surgical History History of Achilles tendon repair (Acute) History of appendectomy (Acute) History of heart artery stent (Acute) History of laparoscopic cholecystectomy (Acute) History of right inguinal hernia (Acute) History of tonsillectomy (Acute) Family History Mother Heart disease Social History Smoking Status: Former smoker HPI HPI HPI: JESUS ALBERTO GUEVARA, is a 78 M who presents to the office today for follow-up for his sigmoid diverticulitis with abscess. Patient was in the hospital from 10/11/18 to 10/14/2018. Patient's repeat CT abdomen pelvis did show resolution of the abscess however he still had thickening of the colon. Patient was not having any abdominal pain and tolerating low fiber diet and was sent home with Augmentin. Patient also presented to the ER on 10/23 due to left leg weakness and confusion. Patient was diagnosed with a TIA currently denies any residual effects. Patient has been placed on aspirin and Plavix for 3 months. Patient did stop taking his aspirin 3-4 days prior to the TIA episode due to pain in his article about may be not needing preventative aspirin however patient does have history of CAD the status post stent patient also came to the ER on 10/26/2018 due to epigastric pain which he states went to back spasms in his mid back which is why he mostly came in. CT abdomen pelvis did question whether he had some thickening of his duodenum otherwise his diverticulitis appeared to be almost completely resolved. Patient was placed on Pepcid twice daily. Patient is almost completed his antibiotics for the diverticulitis. Patient states that his colonoscopy was done in at the hospital. HPI HPI HPI: JESUS ALBERTO GUEVARA, is a 78 M who presents to the office today for ROS General General: No weight change, appetite, fatigue, colon cancer, breast cancer or weakness HEENT HEENT: No difficulty swallowing, eye injury, eye surgery, swollen glands or hoarseness Endo Endocrine: Yes thyroid disease; no diabetes mellitus, thyroid cancer, Hair loss, heat intolerance or cold intolerance Skin Skin: Yes changing moles; no rash Breast Breast: No left breast lump, right breast lump, nipple discharge, breast pain, abnormal mammogram, abnormal US or breast enlargement Musc Musculoskeletal: Yes back problems and arthritis; no rheumatoid arthritis, gout or joint pain Cardio Cardiovascular: Yes heart disease, heart attack and heart stent; no murmur, pacemaker, atrial fibrillation, high blood pressure, palpitations, shortness of breat with exertion or chest pain Psych Psychiatric: No depression, anxiety or hearing voices Resp Respiratory: No shortness of breath, Yes sleep apnea, No cough, No COPD, No asthma, No emphysema, No wheezing Gastro Gastrointestinal: Yes abdominal pain, Yes nausea or vomiting, Yes diarrhea, Yes constipation, No blood in stool, No acid reflux, No hemorrhoids, Yes ulcers, Yes gallbladder problem, No black,tarry stools Joaquim Hematologic: Yes blood thinners, No blood disorders, No bleeding, No anemia, No blood clots Neuro Neurologic: No system reviewed and no additional complaints, except as docu, No as per HPI, No abnormal walking, No abnormal hearing, No abnormal movements, No abnormal speech, No behavioral changes, No burning sensations, No confusion, No seizure-like activity, No unsteadiness, No dizziness, No localized weakness, No frequent falls, No headache(s), No lack of coordination, No loss of vision, No memory loss, No numbness, No other visual disturbances, No radiating pain, No restless legs, No sensory deficit, No fainting, No tingling, No tremor(s), No weakness, Yes other (Stroke/TIA) Exam Const General: cooperative, comfortable, no acute distress Chest Breast Palpation: No nipple discharge Cardio Heart Sounds: no murmurs Other: Patient's Holter monitor is in place GI Inspection: normal to inspection, non-distended Palpation: soft, no guarding, nontender Assessment AND Plan Problems 1. Perforation of sigmoid colon due to diverticulitis K57.20 2. TIA (transient ischemic attack) G45.9 Plan We will have patient continue his low fiber diet for another 4 weeks for a total of [address] abdomen pelvis done at the ER on 10/26/18 does show near resolution of the sigmoid diverticulitis but did show questionable duodenitis. Patient currently denies any epigastric pain he is taking Pepcid 20 mg p.o. twice daily given to him by the ER. To the patient's recent TIA he is currently on aspirin and Plavix for a total of 3 months and he is also been placed on Lipitor as well. Patient is almost completed his antibiotics. Will have patient follow-up in 4 weeks at that time we will change him to a more regular diet with increased fiber as long as he continues to do well. Due to patient being on aspirin for at least 3 months may delay his colonoscopy until his Plavix is completed. Aria Leslie M.D. Pager: [phone] [facility] [address] [place] [address], [facility], [address] [place] [id number] Office: [phone] Plan Detail Follow Up 4 Weeks Coding Level of Care Code Off vis,est,level 3 Diagnoses Perforation of sigmoid colon due to diverticulitis K57.20 TIA (transient ischemic attack) G45.9 10/30/18 0828 <Electronically signed by Aria Leslie MD> Date Aria Leslie MD Cosigner Signature: Date (if applicable) CC: Jazlyn Jose Start: 10-28-2018 End: 10-28-2018 12 lead ECG Comments: See Note; NOTES: [facility] Cardiovascular Services [address] [place] [id number] 12 Lead EKG 10/26/18 0725 MR#: [id number] Acct: [id number] Name: JESUS ALBERTO GUEVARA Rep #: [id number] : 1940 78 From: Ronnie Khan MD Attending Dr: Status: DEP ER Ordering Dr: Lane Pope MD Date: 10/26/18 Location: ED Sex: M C Admitted: Test Reason : ABD PAIN Blood Pressure : / mmHG Vent. Rate : 054 BPM Atrial Rate : 054 BPM P-R Int : 170 ms QRS Dur : 090 ms QT Int : 436 ms P-R-T Axes : 037 000 057 degrees QTc Int : 413 ms Sinus bradycardia Otherwise normal ECG Confirmed by RONNIE KHAN MD ([id number]), associate entertainment editor TAWNYA ZAVALA ([id number]) on 10/28/2018 1:21:21 PM Referred By: Sarah Hsu Confirmed By:RONNIE KHAN MD 10/28/18 1321 Date Ronnie Khan MD CC: Jazlyn Zayas DO; Lane Pope MD Signed Jazlyn Zayas Start: 10-26-2018 End: 10-26-2018 Emergency Department Summary Comments: See Note; NOTES: [facility] Medical Records Department [address] [place] [address] Emergency Department Summary 10/26/18 0755 MR#: [id number] Acct: [id number] Name: JESUS ALBERTO GUEVARA Rep #: [id number] : 1940 78 From: Lane Pope MD PCP: Jazlyn Zayas DO Status: REG ER History of Present Illness Chief Complaint: Nausea/Vomiting Informant: Patient Context: Sudden Onset Timing: Continuous Quality: Pain upper abdomen radiating to the back Location: Upper abdomen radiates to the back Current Severity: Mild Maximum Severity: Severe Worsened by: Movement, walking, vomiting Relieved by: Nothing Associated Symptoms: Subjective fever Narrative: Patient is an elderly male admitted earlier this month for acute sigmoid diverticulitis with perforation and small abscess. He was recently admitted for CVA felt to be an embolic stroke involving the right M3 branch of the middle cerebral artery. He presents as a Holter monitor on. He presents because of abdominal pain with nausea vomiting x2. The nausea vomiting started 15-30 minutes prior to presentation. He denies cardiac respiratory symptoms. He does report dry mouth, thirst and lightheadedness. He denies dysuria, frequency, urgency or hematuria. 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 Status: Acute (2) CAD (coronary artery disease) Status: Chronic (3) CKD (chronic kidney disease) stage 3, GFR 30-59 ml/min Status: Chronic (4) Perforation of sigmoid colon due to diverticulitis Status: Chronic Past Medical History - Allergies and Home Meds Allergies/Adverse Reactions: Allergies No Known Allergies Allergy (Verified 10/26/18 07:22) Primary Care Physician: Jazlyn Zayas DO [Primary Care Provider] - Prior records reviewed: Yes Surgical History: cholecystectomy, herniorrhaphy - RIH x 2 open, tonsillectomy, - - Remote PCI, Prostate CA seed insertion, L achilles repair, Deviated septum repair, cholecystectomy, tonsillectomy, hernia repair (RIH x 2 open). Lives: Spouse/ Significant Other Smoking Status: Former smoker Drugs: None - Family History Maternal Family History: Reports: No pertinent history Paternal Family History: Reports: - - Patient notes that his father at age 55 secondary to complications of heart disease and was a very avid tobacco user. Review of Systems General: Reports: Chills, Fever, Subjective. Denies: Sweats, Weight loss Eyes: Denies: Visual changes - left, Visual changes - right, Visual changes - bilaterally, Blurred vision - left, Blurred vision - right, Blurred Vision - bilaterally, Diplopia, -, - ENT: Denies: Bilateral ear pain, Rhinorrhea, Sore throat Cardiovascular: Denies: Chest pain, Palpitations, Heart racing Respiratory: Denies: Dyspnea, Cough, Sputum, Dyspnea on exertion, Orthopnea, Paroxysmal nocturnal dyspnea, -, - Gastrointestinal: Reports: Abdominal pain, Nausea, Vomiting. Denies: Diarrhea, Constipation, Melena, Hematochezia Genitourinary: Denies: Dysuria, Hematuria, Frequency, -, - Musculoskeletal: Reports: Back pain. Denies: Myalgias, Arthralgias, Neck pain Skin: Denies: Rash Neurological: Reports: Weakness. Denies: Headache, Parasthesia, Numbness, -, - Hematologic: Denies: Easy bruising, Easy bleeding, Lymphadenopathy, -, - Physical Exam Vital Signs/Narrative: Vital Signs 10/26/18 07:18 98 F 62 18 161/90 H 98 Inital Vital Signs reviewed: Yes General: Well nourished, Well developed, Acute Distress - Patient does not look well. He appears pale. Eyes: Perrl, EOMI. Negative for: Pale conjunctiva, Scleral icterus ENT: No rhinorrhea, Dry mucous membranes Neck: Supple, Nontender, No lymphadenopathy, No JVD Cardiovascular: Regular rate, Regular rhythm, No murmurs, Normal S1, Normal S2 Respiratory: No distress, CTA bilaterally, Chest nontender Abdomen: Guarding, Rebound tenderness, Hypoactive bowel sounds. Negative for: Ventral hernia, Inguinal hernia, Umbilical hernia Back: Nontender, Normal Inspection. Negative for: CVA tenderness Extremities: Nontender, No edema Skin: No rash, Pallor. Negative for: Cyanosis, Jaundice Neurological: Alert, Oriented x3, Cranial nerves II-XII grossly intact, Normal Strength, Normal Sensation Psychological: Normal affect, Normal Mood Diagnostic/Tx/Re-eval Impressions Abdomen/Pelvis CT 10/26/18 07:30 IMPRESSION: Duodenitis. Colonic diverticulosis. Interval improving sigmoid diverticulitis. Bilateral inguinal hernias. Stable probable hepatic hemangioma. Parapelvic left renal cysts. Electronically Signed: Ye BauerDO at 9:47 EDT Tel [phone], Service support , 10/26/18 07:30 Abdomen/Pelvis WITH Contrast [CT] Stat Laboratory Results WBC 9.5 RBC 5.83 Hgb 16.9 H Hct 48.6 MCV 83.4 MCH 29.0 MCHC 34.8 RDW 13.5 RDW Differential 40.9 Plt Count 239 - Medical Decision Making IV was established. Since clinically he appears dehydrated and will need IV contrast 1 L of normal saline was administered. He was medicated with Zofran and morphine. Will obtain basic metabolic panel to assess electrode, anion gap and glucose. Also to assess renal function since he has had several contrast studies in the past [address] of the abdomen with p.o. and IV contrast was obtained because of concern for perforation and or exacerbation of his diverticular disease. Differential includes peptic ulcer disease, perforated ulcer, perforation of sigmoid diverticulitis, renal disease, partial small bowel obstruction CAT scan reveals findings consistent with duodenitis. Patient does have maximal tenderness in the epigastric area. Blood work is normal. There is almost total resolution of the sigmoid diverticulitis that perforated. Patient states he has an appointment with about some on Saturday. He was treated with IV Pepcid and placed on PPI. ED Disposition - Plan for ED Patient: Disposition: Home or Assisted Living Diagnosis: Acute duodenitis, Chronic renal insufficiency, stage II (mild) Instructions: ED PUD Prescriptions: Pantoprazole Sodium [Protonix] 40 mg PO DAILY #30 tablet Referrals: Jazlyn Zayas DO [Primary Care Provider] - Aria Leslie MD [STAFF PHYSICIAN] - Keep Mary appointment What to do if you have Problems For any increased pain, shortness of breath, bleeding, nausea or vomiting, chest pain, or any unexpected problems, contact your Primary Care Provider. Call [facility] ([phone]) or report to the closest Emergency Room. Call 911 if necessary. 10/26/18 1012 <Electronically signed by Lane Pope MD> Date Lane Pope MD Cosigner Signature (If Indicated): Date CC: Jazlyn Zayas DO; Aria Zayas Start: 10-26-2018 End: 10-26-2018 Abdomen/Pelvis WITH Contrast Comments: See Note; NOTES: [facility] Imaging Services [address] [place] [address] Abdomen/Pelvis WITH Contrast MR#: [id number] Acct: [id number] Name: JESUS ALBERTO GUEVARA Rep #: [id number] : 1940 M 78 From: Ye Bauer DO PCP: Jazlyn Zayas DO Status: REG ER Study: Abdomen/Pelvis WITH Contrast Date of Exam: 10/26/18 Exam# [id number] Ordering Dr: Lane Pope MD STUDY: CT ABDOMEN AND PELVIS WITH CONTRAST REASON FOR EXAM: Male, 78 years old. Epigastric pain RADIATION DOSAGE (If Supplied By Facility): CTDIvol = ( 18.65 ) mGy, DLP = ( 1325.87 ) mGycm TECHNIQUE: Transaxial images were obtained from the dome of the diaphragm to the symphysis pubis without oral contrast. 100CC IV/Oral Isovue 300 was administered. Sagittal and coronal images were reconstructed. Individualized dose optimization techniques were used for this CT. COMPARISON: October 13, 2018 FINDINGS: The visualized lung bases are unremarkable. Calcific granuloma within the right base. The visualized portions of the heart are within normal limits. Stable probable anterior hemangioma within the liver measuring 2.5 cm. Status post cholecystectomy. No significant dilatation of the extrahepatic biliary system. Normal spleen. Normal pancreas. Normal bilateral adrenal glands. Normal right kidney. Parapelvic cysts of the left kidney. Normal visualized stomach. Mild wall thickening of the third and fourth portion of duodenum suspicious for duodenitis. Diverticulosis of the colon. Previous noted sigmoid diverticulitis demonstrates interval improvement to near complete resolution. The appendix is not visualized. Normal abdominal aorta. Normal inferior vena cava. Normal retroperitoneum. Normal urinary bladder. Bilateral inguinal hernias with evidence of previous repair. Radiation seedings in the prostate region. Normal abdominal wall. Normal osseous structures. CT/Abdomen/Pelvis WITH Contrast IMPRESSION: Duodenitis. Colonic diverticulosis. Interval improving sigmoid diverticulitis. Bilateral inguinal hernias. Stable probable hepatic hemangioma. Parapelvic left renal cysts. Electronically Signed: Ye Bauer DO at 9:47 EDT Tel [phone], Service support , CC: Jazlyn Zayas DO; Lane Pope MD Network Operations Specialist: Signed Jazlyn Zayas Start: 10-23-2018 End: 10-23-2018 Emergency Department Summary Comments: See Note; NOTES: [facility] Medical Records Department [address] [place] [address] Emergency Department Summary 10/23/18 0753 MR#: [id number] Acct: [id number] Name: JESUS ALBERTO GUEVARA Rep #: [id number] : 1940 78 From: Lane Pope MD PCP: Jazlyn Zayas DO Status: REG ER History of Present Illness Chief Complaint: Weakness Informant: Patient, Family Onset: Today Context: Sudden Onset Timing: Continuous Quality and Location: Left Leg Weakness, - - concerned regarding his speech and confusion Onset: 50 Current Severity: Mild Maximum Severity: Mild Worsened by: Nothing Relieved by: Nothing Associated Symptoms: Negative for: Headache, Nausea, Vomiting, Chest Pain Narrative: Patient is an elderly male recently admitted for diverticular abscess. He presents because of abrupt onset of heaviness left arm and weakness left leg. is concerned because of his behavior. Currently he is staring, his thought process is not normal and problems with speech. He denies ocular, visual auditory Sensipar he denies cardiac respiratory symptoms. He denies GI or symptoms. He states he awoke this morning walked to the restroom without difficulty. His leg then became heavy and buckled and he fell. He is on no anticoagulant. - Past Medical History (1) Perforation of sigmoid colon due to diverticulitis Status: Acute Past Medical History - Allergies and Home Meds Allergies/Adverse Reactions: Allergies No Known Allergies Allergy (Verified 10/10/18 21:51) Primary Care Physician: Jazlyn Zayas DO [Primary Care Provider] - Prior records reviewed: Yes Surgical History: cholecystectomy, herniorrhaphy - RIH x 2 open, tonsillectomy, - - cardiac stent 10 years ago, colonoscopy about 10 years ago, seeds for prostate cancer, left achilles repair, nasal septum repair Lives: Spouse/ Significant Other Smoking Status: Former smoker Drugs: None - Family History Maternal Family History: Reports: No pertinent history Review of Systems General: Denies: Chills, Fever, Subjective, Sweats Eyes: Denies: Visual changes - bilaterally, Blurred Vision - bilaterally, Diplopia ENT: Denies: Bilateral ear pain, Rhinorrhea, Sore throat Cardiovascular: Denies: Chest pain, Palpitations Respiratory: Denies: Dyspnea, Cough, Dyspnea on exertion Gastrointestinal: Denies: Abdominal pain, Nausea, Vomiting, Diarrhea, Melena, Hematochezia Genitourinary: Denies: Dysuria, Hematuria, Frequency Musculoskeletal: Denies: Myalgias, Arthralgias, Neck pain, Back pain, Extremity Pain Skin: Denies: Rash, Wounds Neurological: Reports: Weakness, Parasthesia, Numbness, - - concerned because of behavior and speech.. Denies: Headache Hematologic: Denies: Easy bruising, Easy bleeding Physical Exam Vital Signs/Narrative: Vital Signs 10/23/18 07:36 97.9 F 63 17 155/82 H 97 Inital Vital Signs reviewed: Yes - NIH Stroke Scale 1a Level of Consciousness: 0 1b LOC Questions (Score 2 if aphasic/stupor): 0 1c LOC Commands (Only score 1st attempt): 0 2 Best Gaze (If aphasic, use reflexive mvmts.): 0 3 Visual: 0 4 Facial Palsy: 0 5 Motor Arm Right (UN = amputation/fusion): 0 5 Motor Arm Left: 0 6 Motor Leg Right: 0 6 Motor Leg Left: 1 7 Limb ataxia (Only + if out of proportion): 0 8 Sensory (Aphasia/stupor=0 or 1, coma=2): 0 9 Best Language: 0 10 Dysarthria (mute, coma=2, intubated=UN): 0 11 Extinction and Inattention (only scored if +): 0 - Thank you Total Score: 1 General: Well nourished, Well developed, - - Patient looks much different than when I admitted him for perforated sigmoid diverticulitis. He appears as if he has aged a decade. Head: Normocephalic, Atraumatic Eyes: Perrl, EOMI ENT: Moist mucous membranes, No rhinorrhea Neck: Supple, Nontender Cardiovascular: Regular rate, Regular rhythm, No murmurs Respiratory: No distress, CTA bilaterally, Chest nontender Abdomen: Soft, Nontender, Nondistended, Normal bowel sounds Back: Nontender, Normal Inspection. Negative for: CVA tenderness - So he got 2.7 for his NIH 9 [id number] for me that he got missed a rung for you okay because I think I just keep Extremities: Nontender, No edema Skin: Normal color, No rash Neurological: Alert, Oriented x3, Cranial nerves II-XII grossly intact, Normal Sensation, Normal DTR, Confused - Per . Nurse states he was not appropriate prior to my examination either. He answered all questions appropriately and performed the NIH exam with only weakness noted left lower extremity., Weakness - Who he can tell me is nauseated she reported for well visit what he think Psychological: Normal affect Diagnostic/Tx/Re-eval Impressions Brain CT 10/23/18 07:48 IMPRESSION: 1. No CT evidence of intracranial bleeding, acute ischemic infarct or acute intracranial abnormality at this time. 2. Chronic subcortical white matter ischemic changes in both cerebral hemispheres. Electronically Signed: Anders Weems MD at 8:52 EDT , Service support , Head CTA 10/23/18 07:50 IMPRESSION: Normal [place] without a demonstrated aneurysm or hemodynamically significant stenosis. Electronically Signed: Erwin Paul, at 9:00 EDT , Service support , ADDENDUM: 10/23/18 0910 IMPRESSION: Normal [place] without a demonstrated aneurysm or hemodynamically significant stenosis. N.B. : The above information has been verbally conveyed by Erwin Miller to [facility] on 10/23/2018 09:03:43 (ET). Electronically Signed: Erwin Miller, at 9:00 EDT , Service support , Neck CTA 10/23/18 07:50 IMPRESSION: Mild calcific plaque at the origins of both internal carotid arteries causing less than 50% narrowing. Hypodensity in the right lobe of the thyroid. Partial opacification of the left maxillary sinus and mucosal thickening of the right maxillary sinus. N.B. : The above information has been verbally conveyed by Erwin Miller to [facility] on 10/23/2018 09:03:09 (ET). Electronically Signed: Erwin Miller, at 9:04 EDT , Service support , ADDENDUM: 10/23/18 0911 IMPRESSION: Mild calcific plaque at the origins of both internal carotid arteries causing less than 50% narrowing. Hypodensity in the right lobe of the thyroid. Partial opacification of the left maxillary sinus and mucosal thickening of the right maxillary sinus. N.B. : The above information has been verbally conveyed by Erwin Miller to [facility] on 10/23/2018 09:03:09 (ET). Electronically Signed: Erwin Miller, at 9:04 EDT , Service support , 10/23/18 07:48 Brain/Head without Contrast [CT] Stat 10/23/18 07:50 CTA Head W/WO Contrast [CT] Stat CTA Neck W/WO Contrast [CT] Stat Laboratory Results WBC 8.4 RBC 5.30 Hgb 15.5 Hct 46.3 MCV 87.4 MCH 29.2 MCHC 33.5 RDW 13.6 RDW Differential 43.2 - Rhythm Strip Rhythm Strip: Sinus Rhythm Rate: 62 Ectopy: None - EKG Initial EKG Interpretation: Sinus Rhythm - Ventricular rate 66. MN interval, QRS duration, QT interval and axis is normal. EKG is normal. - Medical Decision Making Stroke Team Activated: No - NIH is 1 IV TPA Administered: No Patient appearance has changed significant since last ER visit. I was informed by nurse that he is now complaining of nausea at the time of dictation and he is confused. He now commented he cannot wait for his birthday because he will turn 78. He answered that question appropriately when initially evaluated. Symptoms are concerning for right hemispheric stroke. With recent admission for perforated sigmoid diverticulitis need to entertain possibility of infectious etiology. He does have history of renal insufficiency. He was given a fluid bolus prior to ordering CTA of the head neck. Need to consider atypical presentation for brain abscess. Stroke order set was initiated. Patient will require admission. Patient was reevaluated at 0910. He now was able to follow commands. He has no deficits. Per my conversation with Dr. Weems the neuroradiologist patient has a distal partial obstruction of the lower branch M3 distribution right middle cerebral artery that is very distal. Patient will need workup for embolic phenomenon. Critical care time (excluding procedures): Discussion with neuroradiologist regarding results of CTA. 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 Call [facility] ([phone]) or report to the closest Emergency Room. Call 911 if necessary. 10/23/18927 <Electronically signed by Lane Pope MD> Date Lane Pope MD Cosigner Signature (If Indicated): Date CC: Jazlyn Jose Manuel DO Jazlyn Jose Manuel Start: 10-23-2018 End: 10-23-2018 CTA Head W/WO Contrast Comments: See Note; NOTES: [facility] Imaging Services [address] [place] [address] CTA Head W/WO Contrast MR#: [id number] Acct: [id number] Name: JESUS ALBERTO GUEVARA Rep #: [id number] : 1940 M 78 From: Erwin Miller MD PCP: Jazlyn Zayas DO Status: REG ER Study: CTA Head W/WO Contrast Date of Exam: 10/23/18 Exam# [id number] Ordering Dr: Lane Pope MD ADDENDUM by Erwin Miller MD on 10/23/18 at 0941 ADDENDUM This is an addendum report. There is suspicion for decreased flow into the right M2 and M3 segments of the right middle cerebral artery. This may represent atherosclerotic versus embolic phenomenon. The referring physician was notified. Electronically Signed: Erwin Miller, at 9:41 EDT , Service support , N.B. : The above information has been verbally conveyed by Erwin Miller to Lane Pope on 10/23/2018 09:03:43 (ET). 10/23/18 0941 Date cc: Jazlyn Zayas DO; Lane Pope MD * Signed ADDENDUM by Erwin Miller MD on 10/23/18 at 0900 STUDY: CTA OF THE BRAIN REASON FOR EXAM: Male, 78 years old. Left-sided weakness. Left leg weakness. RADIATION DOSAGE (If Supplied By Facility): CTDIvol = ( 25.05 ) mGy, DLP = ( 991.21 ) mGycm TECHNIQUE: CT angiography was performed with a multi-detector CT scanner. Data acquisition was obtained from the skull base through the vertex following intravenous administration of 100 IV Isovue 370. MIP images were reconstructed from the axial data set. Post-processing of the angiographic images was performed, with multiplanar reformation and 3D reconstruction. Individualized dose optimization techniques were used for this CT. COMPARISON: None. FINDINGS: Normal bilateral petrous carotid arteries. There is calcified plaque formation of the right cavernous carotid artery, without a cross-sectional luminal stenosis. There is calcified plaque formation of the left cavernous carotid artery, without a cross-sectional luminal stenosis. There is non-visualization of the right A1 segment of the anterior cerebral arteries consistent with either aplastic development or an occlusion. Normal left A1 segments of the anterior cerebral artery. Normal intact anterior communicating artery (ACOM). Normal bilateral A2 segments of the anterior cerebral arteries. Normal right M1 and M2 segments of the middle cerebral arteries, with a normal M1 bifurcation. Normal left M1 and M2 segments of the middle cerebral arteries, with a normal M1 bifurcation. There is a persistent origin of the right posterior cerebral artery with absence of the posterior communicating artery (PCOM). Normal left posterior communicating artery (PCOM). Normal bilateral vertebral arteries. Normal basilar artery with a normal basilar bifurcation. The visualized bilateral superior cerebellar (SCA) arteries are normal. Normal bilateral P1, P2 and visualized P3 segments of the posterior cerebral arteries. There is no demonstrated aneurysm of the [place]. Partial opacification of the left maxillary sinus. 10/23/18 0900 Date cc: Jazlyn Zayas DO; Lane Pope MD * Signed ADDENDUM by Erwin Miller MD on 10/23/[address]/CTA Head W/WO Contrast 10/23/18 0948 Date cc: Jazlyn Zayas DO; Lane Pope MD * Signed ADDENDUM by Erwin Miller MD on 10/23/[address]/CTA Head W/WO Contrast IMPRESSION: Normal [place] without a demonstrated aneurysm or hemodynamically significant stenosis. N.B. : The above information has been verbally conveyed by Erwin Miller to Lane Pope on 10/23/2018 09:03:43 (ET). Electronically Signed: Erwin Miller, at 9:00 EDT , Service support , 10/23/18 0910 Date cc: Jazlyn Zayas DO; Lane Pope MD * Signed We are attempting to reach Lane Pope MD to discuss findings. An addendum with communication details will be sent when the communication is complete. STUDY: CTA OF THE BRAIN REASON FOR EXAM: Male, 78 years old. Left-sided weakness. Left leg weakness. RADIATION DOSAGE (If Supplied By Facility): CTDIvol = ( 25.05 ) mGy, DLP = ( 991.21 ) mGycm TECHNIQUE: CT angiography was performed with a multi-detector CT scanner. Data acquisition was obtained from the skull base through the vertex following intravenous administration of 100 IV Isovue 370. MIP images were reconstructed from the axial data set. Post-processing of the angiographic images was performed, with multiplanar reformation and 3D reconstruction. Individualized dose optimization techniques were used for this CT. COMPARISON: None. FINDINGS: Normal bilateral petrous carotid arteries. There is calcified plaque formation of the right cavernous carotid artery, without a cross-sectional luminal stenosis. There is calcified plaque formation of the left cavernous carotid artery, without a cross-sectional luminal stenosis. There is non-visualization of the right A1 segment of the anterior cerebral arteries consistent with either aplastic development or an occlusion. Normal left A1 segments of the anterior cerebral artery. Normal intact anterior communicating artery (ACOM). Normal bilateral A2 segments of the anterior cerebral arteries. Normal right M1 and M2 segments of the middle cerebral arteries, with a normal M1 bifurcation. Normal left M1 and M2 segments of the middle cerebral arteries, with a normal M1 bifurcation. There is a persistent origin of the right posterior cerebral artery with absence of the posterior communicating artery (PCOM). Normal left posterior communicating artery (PCOM). Normal bilateral vertebral arteries. Normal basilar artery with a normal basilar bifurcation. The visualized bilateral superior cerebellar (SCA) arteries are normal. Normal bilateral P1, P2 and visualized P3 segments of the posterior cerebral arteries. There is no demonstrated aneurysm of the [place]. Partial opacification of the left maxillary sinus. CT/CTA Head W/WO Contrast IMPRESSION: Normal [place] without a demonstrated aneurysm or hemodynamically significant stenosis. Electronically Signed: Erwin Miller, at 9:00 EDT , Service support , CC: Jazlyn Pope MD Network Operations Specialist: Signed Jazlyn Zayas Start: 10-23-2018 End: 10-23-2018 CTA Neck W/WO Contrast Comments: See Note; NOTES: [facility] Imaging Services [address] [place] [address] CTA Neck W/WO Contrast MR#: [id number] Acct: [id number] Name: PAOLAJESUS ALBERTO Giancarlo Rep #: [id number] : 1940 78 From: Erwin Miller MD PCP: Jazlyn Zayas DO Status: REG ER Study: CTA Neck W/WO Contrast Date of Exam: 10/23/18 Exam# [id number] Ordering Dr: Lane Pope MD ADDENDUM by Erwin Miller MD on 10/23/18 at 0904 STUDY: CTA NECK WITH CONTRAST REASON FOR EXAM: Male, 78 years old. Left-sided weakness and left leg weakness. RADIATION DOSAGE (If Supplied By Facility): CTDIvol = ( 25.05 ) mGy, DLP = ( 991.21 ) mGycm TECHNIQUE: CT angiography with multi-detector data acquisition was performed from the aortic arch to the skull base following intravenous administration of 100 IV Isovue 370. MIP images were reconstructed from the axial data set. Post-processing of the angiographic images was performed, with multiplanar reformation and 3D reconstruction. Individualized dose optimization techniques were used for this CT. COMPARISON: None. FINDINGS: Coronary artery calcification. There is a 2.5 cm x 2.2 cm hypodensity in the right lobe of the thyroid suggestive of goiter as change. AORTIC ARCH: Normal visualized aortic arch. Normal origins of the brachiocephalic, left common carotid, and left subclavian arteries. RIGHT CAROTID ARTERIES: Normal right common carotid artery (CCA). Normal right common carotid bulb. There is mild atherosclerotic plaque formation of the origin of the right internal carotid artery with less than 50% cross sectional diameter stenosis. Normal visualized cervical portion of the right internal carotid artery. Normal origin of the right external carotid artery (ECA). LEFT CAROTID ARTERIES: Normal left common carotid artery (CCA). Normal left common carotid bulb. There is mild atherosclerotic plaque formation of the origin of the left internal carotid artery with less than 50% cross sectional diameter stenosis. Normal visualized cervical portion of the left internal carotid artery. Normal origin of the left external carotid artery (ECA). VERTEBRAL ARTERIES: There is enhancement within the bilateral vertebral arteries with a small right vertebral artery, and a dominant left vertebral artery. 10/23/18 0904 Date cc: Jazlyn Zayas DO; Lane Pope MD * Signed ADDENDUM by Erwin Miller MD on 10/23/[address]/CTA Neck W/WO Contrast IMPRESSION: Mild calcific plaque at the origins of both internal carotid arteries causing less than 50% narrowing. Hypodensity in the right lobe of the thyroid. Partial opacification of the left maxillary sinus and mucosal thickening of the right maxillary sinus. N.B. : The above information has been verbally conveyed by Erwin Miller to Lane Pope on 10/23/2018 09:03:09 (ET). Electronically Signed: Erwin Miller, at 9:04 EDT , Service support , 10/23/18 0911 Date cc: aJzlyn Zayas DO; Lane Pope MD * Signed STUDY: CTA NECK WITH CONTRAST REASON FOR EXAM: Male, 78 years old. Left-sided weakness and left leg weakness. RADIATION DOSAGE (If Supplied By Facility): CTDIvol = ( 25.05 ) mGy, DLP = ( 991.21 ) mGycm TECHNIQUE: CT angiography with multi-detector data acquisition was performed from the aortic arch to the skull base following intravenous administration of 100 IV Isovue 370. MIP images were reconstructed from the axial data set. Post-processing of the angiographic images was performed, with multiplanar reformation and 3D reconstruction. Individualized dose optimization techniques were used for this CT. COMPARISON: None. FINDINGS: Coronary artery calcification. There is a 2.5 cm x 2.2 cm hypodensity in the right lobe of the thyroid suggestive of goiter as change. AORTIC ARCH: Normal visualized aortic arch. Normal origins of the brachiocephalic, left common carotid, and left subclavian arteries. RIGHT CAROTID ARTERIES: Normal right common carotid artery (CCA). Normal right common carotid bulb. There is mild atherosclerotic plaque formation of the origin of the right internal carotid artery with less than 50% cross sectional diameter stenosis. Normal visualized cervical portion of the right internal carotid artery. Normal origin of the right external carotid artery (ECA). LEFT CAROTID ARTERIES: Normal left common carotid artery (CCA). Normal left common carotid bulb. There is mild atherosclerotic plaque formation of the origin of the left internal carotid artery with less than 50% cross sectional diameter stenosis. Normal visualized cervical portion of the left internal carotid artery. Normal origin of the left external carotid artery (ECA). VERTEBRAL ARTERIES: There is enhancement within the bilateral vertebral arteries with a small right vertebral artery, and a dominant left vertebral artery. CT/CTA Neck W/WO Contrast IMPRESSION: Mild calcific plaque at the origins of both internal carotid arteries causing less than 50% narrowing. Hypodensity in the right lobe of the thyroid. Partial opacification of the left maxillary sinus and mucosal thickening of the right maxillary sinus. N.B. : The above information has been verbally conveyed by Erwin Miller to Lane Pope on 10/23/2018 09:03:09 (ET). Electronically Signed: Erwin Miller, at 9:04 EDT , Service support , CC: Jazlyn Zayas DO; Lane Pope MD Network Operations Specialist: Signed Jazlyn Zayas Start: 10-23-2018 End: 10-23-2018 Brain/Head without Contrast Comments: See Note; NOTES: [facility] Imaging Services [address] [place] [address] Brain/Head without Contrast MR#: [id number] Acct: [id number] Name: JESUS ALBERTO GUEVARA Rep #: [id number] : 1940 M 78 From: Anders Weems MD PCP: Jazlyn Zayas DO Status: REG ER Study: Brain/Head without Contrast Date of Exam: 10/23/18 Exam# [id number] Ordering Dr: Lane Pope MD ADDENDUM by Anders Weems M.D. on 10/23/18 at 0852 STUDY: CT BRAIN WITHOUT CONTRAST REASON FOR EXAM: Male, 78 years old. Left-sided weakness and left leg weakness. Nausea and vomiting. Heaviness. RADIATION DOSAGE (If Supplied By Facility): CTDIvol = ( 44.99 ) mGy, DLP = ( 796.11 ) mGycm TECHNIQUE: Transaxial CT imaging of the brain was performed without administration of intravenous contrast material. Individualized dose optimization techniques were used for this CT. COMPARISON: No relevant priors. FINDINGS: Normal soft tissue structures. Normal calvarium. Normal size ventricles and extra-axial spaces for the patient's age. Subcortical white matter hypodensities are chronic white matter ischemic changes. Normal basal ganglia and thalami. Normal brainstem. Normal cerebellum. There is no intracranial hemorrhage. There are no findings of an acute ischemic infarction. Mucous retention cysts in the maxillary sinuses. 10/23/18851 Date cc: Jazlyn Zayas DO; Lane Pope MD * Signed ADDENDUM by Anders Weems M.D. on 10/23/[address]/Brain/Head without Contrast IMPRESSION: 1. No CT evidence of intracranial bleeding, acute ischemic infarct or acute intracranial abnormality at this time. 2. Chronic subcortical white matter ischemic changes in both cerebral hemispheres. N.B. : The above information has been verbally conveyed by Anders Weems MD to Lane Pope MD, on 10/23/2018 09:06:12 (ET). Electronically Signed: Anders Weems MD at 8:52 EDT , Service support , 10/23/18912 Date cc: Jazlyn Zayas DO; Lane Pope MD * Signed We are attempting to reach Laen Pope MD to discuss findings. An addendum with communication details will be sent when the communication is complete. STUDY: CT BRAIN WITHOUT CONTRAST REASON FOR EXAM: Male, 78 years old. Left-sided weakness and left leg weakness. Nausea and vomiting. Heaviness. RADIATION DOSAGE (If Supplied By Facility): CTDIvol = ( 44.99 ) mGy, DLP = ( 796.11 ) mGycm TECHNIQUE: Transaxial CT imaging of the brain was performed without administration of intravenous contrast material. Individualized dose optimization techniques were used for this CT. COMPARISON: No relevant priors. FINDINGS: Normal soft tissue structures. Normal calvarium. Normal size ventricles and extra-axial spaces for the patient's age. Subcortical white matter hypodensities are chronic white matter ischemic changes. Normal basal ganglia and thalami. Normal brainstem. Normal cerebellum. There is no intracranial hemorrhage. There are no findings of an acute ischemic infarction. Mucous retention cysts in the maxillary sinuses. CT/Brain/Head without Contrast IMPRESSION: 1. No CT evidence of intracranial bleeding, acute ischemic infarct or acute intracranial abnormality at this time. 2. Chronic subcortical white matter ischemic changes in both cerebral hemispheres. Electronically Signed: Anders Weems MD at 8:52 EDT , Service support , CC: Jazlyn Zayas DO; Lane Pope MD Network Operations Specialist: Signed Jazlyn Zayas Start: 10-10-2018 End: 10-11-2018 Emergency Department Summary Comments: See Note; NOTES: [facility] Medical Records Department [address] [place] [address] Emergency Department Summary 10/10/18 2312 MR#: [id number] Acct: [id number] Name: JESUS ALBERTO GUEVARA Rep #: [id number] : 1940 78 From: Lane Pope MD PCP: Jazlyn Zayas DO Status: REG ER History of Present Illness Chief Complaint: Abd Pain Detail of Chief Complaint: CAT scan reveals diverticulitis, focal perforation and abscess formation Informant: Patient, Family Onset: Weeks - Onset of symptoms 3 weeks ago Context: Sudden Onset Timing: Continuous Quality: Left lower quadrant pain varies in quality and intensity Location: LLQ Current Severity: Mild Maximum Severity: Moderate Worsened by: Movement, walking Relieved by: Nothing in particular Associated Symptoms: Fever today and possible chills Narrative: Patient was seen by Dr. Jazlyn Zayas had an outpatient CAT scan of the abdomen which reveals acute diverticulitis with focal perforation and formation of abscess. Patient denies history of diverticulosis or diverticulitis. Patient denies history of constipation. He denies any urologic symptoms. He denies cardiac respiratory symptoms. He reports no antibiotic allergies. CT of the abdomen and pelvis performed at [facility] and final interpretation is acute mid sigmoid diverticulitis with probable localized perforation and developing abscess. The developing abscess is 2.8 cm along the medial aspect of the sigmoid colon seen on axial image 90 and coronal image 62. The appendix is absent. Past Medical History - Allergies and Home Meds Allergies/Adverse Reactions: Allergies No Known Allergies Allergy (Verified 10/10/18 21:51) Primary Care Physician: Jazlyn Zayas DO [Primary Care Provider] - Prior records reviewed: Yes Surgical History: no surgical history Lives: Spouse/ Significant Other Smoking Status: Former smoker Alcohol: Rare Review of Systems General: Reports: Chills, Fever, Subjective. Denies: Sweats, Weight loss Eyes: Denies: Visual changes - bilaterally, Blurred Vision - bilaterally, Diplopia ENT: Denies: Bilateral ear pain, Rhinorrhea, Sore throat Cardiovascular: Denies: Chest pain, Palpitations, Heart racing Respiratory: Reports: Paroxysmal nocturnal dyspnea. Denies: Dyspnea, Cough, Dyspnea on exertion, Orthopnea Gastrointestinal: Reports: Abdominal pain - Predominately left lower quadrant, Nausea. Denies: Vomiting, Diarrhea, Constipation, Melena Genitourinary: Denies: Dysuria, Hematuria, Frequency Musculoskeletal: Denies: Myalgias, Arthralgias, Back pain, Extremity Pain Neurological: Denies: Headache, Weakness, Numbness Endocrine: Denies: Polyuria, Polydipsia Hematologic: Denies: Easy bruising, Easy bleeding Physical Exam Vital Signs/Narrative: Vital Signs Inital Vital Signs reviewed: Yes General: Well nourished, Well developed, Obese, No Acute Distress Head: Normocephalic, Atraumatic Eyes: Perrl, EOMI. Negative for: Pale conjunctiva, Scleral icterus ENT: Moist mucous membranes, No rhinorrhea Neck: Supple, Nontender. Negative for: No lymphadenopathy, No JVD Cardiovascular: Regular rate, Regular rhythm, No murmurs, Normal S1, Normal S2 Respiratory: No distress, CTA bilaterally, Chest nontender, Decreased Air Movement Abdomen: Soft, Nontender, Nondistended, Normal bowel sounds, No masses Rectal: Deferred Back: Nontender, Normal Inspection Extremities: Nontender, No edema Skin: Normal color, No rash. Negative for: Cyanosis, Jaundice Neurological: Alert, Oriented x3, Cranial nerves II-XII grossly intact, Normal Strength, Normal Sensation, Normal Gait Psychological: Normal affect, Normal Mood Diagnostic/Tx/Re-eval Laboratory Results WBC 9.1 RBC 5.36 Hgb 15.8 Hct 47.0 MCV 87.7 MCH 29.5 MCHC 33.6 - Medical Decision Making After performing history and physical reviewing CT report and images patient was started on IV Zosyn since he has no allergies to antibiotics. Baseline blood work was obtained. He was made n.p.o. Case was discussed with Dr. Sarah Hsu. She requested admission to surgery since there is perforation. Family requested Dr. Anand Lundberg. Dr. Martin LESLIE was paged since she is on-call for the group. Patient will require admission for IV antibiotics. Dr. Sarah Hsu states she would help with orders if needed. ED Disposition - Plan for ED Patient: Disposition: [facility] Diagnosis: Perforation of sigmoid colon due to diverticulitis Referrals: Jazlyn Zayas, DO [Primary Care Provider] - What to do if you have Problems For any increased pain, shortness of breath, bleeding, nausea or vomiting, chest pain, or any unexpected problems, contact your Primary Care Provider. Call [facility] ([phone]) or report to the closest Emergency Room. Call 911 if necessary. 10/10/18 5179 <Electronically signed by Lane Pope MD> Date Lane Kruse Signature (If Indicated): Date CC: Jazlyn Jose Start: 10-10-2018 End: 10-10-2018 Abdomen/Pelvis WITH Contrast Comments: See Note; NOTES: [facility] Imaging Services [address] [place] [address] Abdomen/Pelvis WITH Contrast MR#: [id number] Acct: [id number] Name: JESUS ALBERTO GUEVARA Rep #: [id number] : 1940 M 78 From: Manuel Penny MD PCP: Jazlyn Zayas DO Status: REG CLI Study: Abdomen/Pelvis WITH Contrast Date of Exam: 10/10/18 Exam# [id number] Ordering Dr: Jazlyn Zayas DO STUDY: CT ABDOMEN AND PELVIS WITH CONTRAST REASON FOR EXAM: Male, 78 years old. Left lower quadrant pain. Prostate cancer. RADIATION DOSAGE (If Supplied By Facility): CTDIvol = ( 17.88 ) mGy, DLP = ( 1157.44 ) mGycm TECHNIQUE: Transaxial images were obtained from the dome of the diaphragm to the symphysis pubis without oral contrast. Isovue 300 100cc IV/Oral was administered. Sagittal and coronal images were reconstructed. Individualized dose optimization techniques were used for this CT. COMPARISON: 06/07/2006. FINDINGS: The visualized lung bases are unremarkable. The visualized portions of the heart are within normal limits. Normal shape and size of the liver. There is an enhancing 2.9 cm mass in the anterior segment of the right lobe most consistent with hemangioma. There are surgical clips in the gallbladder fossa consistent with a prior cholecystectomy. Normal spleen. Normal pancreas. Normal bilateral adrenal glands. No acute abnormalities of the kidneys. Stable left-sided parapelvic cysts. No stones. Symmetric contrast enhancement. No hydronephrosis. Evaluation of the GI tract is limited by absence of oral contrast. There is a small hiatal hernia. Cannot exclude stomach wall thickening. No dilated loops of bowel or evidence for obstruction. Cannot exclude segmental thickening of the wang of the small or large bowel. Cannot exclude enteritis or colitis. Moderate diffuse fecal retention. There is acute mid sigmoid diverticulitis, and there appears to be localized perforation and possible developing 2.8 cm abscess along the medial aspect of the sigmoid colon as seen on axial image 90 and coronal image 62. Appendix is absent. Tortuous aorta without aneurysm. Normal inferior vena cava. Normal retroperitoneum. Normal urinary bladder. 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 Bilateral small to moderate inguinal hernias are seen. These appear to have been previously repaired and have recurred. There are diffuse degenerative changes of the visualized lumbar spine. CT/Abdomen/Pelvis WITH Contrast IMPRESSION: Acute mid sigmoid diverticulitis with probable localized perforation and developing abscess. Electronically Signed: Manuel Penny MD at 18:38 EDT , Service support , CC: Jazlyn Zayas DO Network Operations Specialist: Signed Jazlyn Zayas Work Phone: Start: 10-09-2018 End: 10-09-2018 Abd Inc Decub and/or Erect Comments: See Note; NOTES: [facility] Imaging Services [address] [place] [address] Abd Inc Decub and/or Erect MR#: [id number] Acct: [id number] Name: JESUS ALBERTO GUEVARA Rep #: [id number] : 1940 78 From: Lev Martin MD PCP: Jazlyn Zayas DO Status: [facility] Study: Abd Inc Decub and/or Erect Date of Exam: 10/09/18 Exam# [id number] Ordering Dr: Jazlyn Zayas DO STUDY: X-RAY - ABDOMEN/PELVIS REASON FOR EXAM: Male, 78 years old. Bowel habit changes TECHNIQUE: 4 AP views COMPARISON: None. FINDINGS: Normal visualized lung bases. Previous cholecystectomy There is an unremarkable bowel gas pattern. There is no demonstrated free abdominal air. The visualized liver, spleen and kidneys are grossly normal in size and morphology. Normal soft tissue structures. Normal visualized osseous structures. Brachytherapy beads noted in the prostate RAD/Abd Inc Decub and/or Erect IMPRESSION: No acute findings Electronically Signed: Juventino Martin MD at 17:29 EDT , Service support , CC: Jazlyn Zayas DO Network Operations Specialist: Signed Jazlyn Zayas Work Phone: Start: 04-02-2018 End: 04-02-2018 Thyroid Comments: See Note; NOTES: [facility] Imaging Services [address] [place] [address] Thyroid MR#: [id number] Acct: [id number] Name: JESUS ALBERTO GUEVARA Rep #: [id number] : 1940 M 78 From: Clinton Collier MD PCP: Jazlyn Zayas DO Status: REG CLI Study: Thyroid Date of Exam: 04/02/18 Exam# [id number] Ordering Dr: Nick Bear MD STUDY: THYROID ULTRASOUND REASON FOR EXAM: Male, 78 years old. Right thyroid nodule on CT. TECHNIQUE: Ultrasound evaluation of the thyroid was performed with real-time and static nunez-scale imaging. COMPARISON: CT dated 03/06/2018. FINDINGS: RIGHT LOBE: The right lobe of the thyroid gland measures 5.6 x 2.7 x 2.3 cm. There is a homogeneous echotexture. There is a 2.6 x 2.5 cm solid vascular nodule. LEFT LOBE: The left lobe of the thyroid gland measures 5.6 x 1.9 x 1.8 cm. There is a homogeneous echotexture. There are 3 subcentimeter nodules measuring 0.8 x 0.7 cm, 0.5 x 0.3 cm and 0.4 x 0.4 cm. ISTHMUS: The isthmus measures 6 millimeter. The regional lymph nodes are normal. US/Thyroid IMPRESSION: 2.6 x 2.5 cm solid vascular nodule in the right lobe of the thyroid. Follow-up ultrasound in 6 months is recommended. Electronically Signed: Clinton Krausbobmaykel, at 16:50 EDT Tel , Service support , CC: Nick Bear MD; Jazlyn Zayas DO Network Operations Specialist: Signed Jazlyn Zayas Start: 03-06-2018 End: 03-07-2018 Soft Tissue Neck WITH Contrast Comments: See Note; NOTES: [facility] Imaging Services [address] [place] [address] Soft Tissue Neck WITH Contrast MR#: [id number] Acct: [id number] Name: JESUS ALBERTO GUEVARA Rep #: [id number] : 1940 M 78 From: Otilio Leach PCP: Jazlyn Zayas DO Status: REG CLI Study: Soft Tissue Neck WITH Contrast Date of Exam: 03/06/18 Exam# [id number] Ordering Dr: Nick Bear MD STUDY: CT SOFT TISSUE NECK WITH CONTRAST REASON FOR EXAM: Male, 78 years old. Right pharyngeal pain, dysphagia, hx of tonsillectomy. RADIATION DOSAGE (If Supplied By Facility): CTDIvol = ( 19.44 ) mGy, DLP = ( 660.34 ) mGycm TECHNIQUE: The patient was scanned in a multi-detector CT scanner. High resolution transaxial imaging was performed following intravenous administration of 100 ml of Isovue 300 contrast material. Sagittal and coronal images were reconstructed. Individualized dose optimization techniques were used for this CT. COMPARISON: None. FINDINGS: Normal bilateral parotid glands. Normal bilateral vice president of software engineering spaces. Normal bilateral parapharyngeal spaces. Normal bilateral carotid spaces. Normal bilateral sublingual and submandibular glands and spaces. Normal visualized nasopharynx. Normal retropharyngeal space. Normal perivertebral space. Normal visualized bilateral faucial tonsils. The visualized tongue, tongue base and oropharynx are normal. The visualized cervical lymph nodes (levels I-) are within normal size limits, and maintain normal morphology. There is no demonstrated solid or cystic mass lesion. There is no abnormal contrast enhancement. Normal epiglottis, bilateral vallecula and hypopharynx. The pre-epiglottic and paraglottic adipose spaces are normal. Normal visualized bilateral piriform sinuses, aryepiglottic folds, vocal cords, and arytenoid-cricoid articulations. Normal subglottic trachea. There is a 2.6 cm nodule within the right thyroid. Normal visualized pulmonary apices. Normal visualized paranasal sinuses. There is multilevel degenerative changes of the cervical spine. CT/Soft Tissue Neck WITH Contrast IMPRESSION: 2.6 cm right thyroid nodule. Further evaluation with sonography can be obtained. Otherwise no masses or lymphadenopathy. Electronically Signed: Otilio Leach MD at 12:21 EDT Tel , Service support , CC: Nick Bear MD; Jazlyn Zayas DO Network Operations Specialist: Signed Jazlyn Zayas Start: 12-24-2017 End: 12-24-2017 Pelvis 1 or 2 Views Comments: See Note; NOTES: [facility] Imaging Services [address] [place] [address] Pelvis 1 or 2 Views MR#: [id number] Acct: [id number] Name: JESUS ALBERTO GUEVARA Rep #: [id number] : 1940 M 77 From: Erwin Miller MD PCP: Jazlyn Zayas DO Status: REG CLI Study: Pelvis 1 or 2 Views Date of Exam: 12/24/17 Exam# [id number] Ordering Dr: Rosalba Lester MD STUDY: X-RAY - PELVIS REASON FOR EXAM: Male, 77 years old. History of inflammatory polyarthropathy. TECHNIQUE: One view of the pelvis was obtained. COMPARISON: None. FINDINGS: There is a non-specific bowel gas pattern. Metallic radiation seeds are seen within the prostate. Normal bilateral iliac wings, sacroiliac joints and visualized sacrum. Normal visualized bilateral superior and inferior pubic rami. Normal pubic symphysis. Normal ischial tuberosities. Normal visualized right femoral head. Normal right acetabulum. Normal right hip joint. Normal visualized left femoral head. Normal left acetabulum. Normal left hip joint. RAD/Pelvis 1 or 2 Views IMPRESSION: Metallic radiation seeds are seen within the prostate. Electronically Signed: Erwin Miller MD at 15:41 EDT Tel [phone], Service support , CC: Jazlyn Zayas DO; Rosalba Lester MD Network Operations Specialist: Signed Jazlyn Zayas Start: 12-20-2017 End: 12-20-2017 Cerv Spine 4 or 5 Views Comments: See Note; NOTES: [facility] Imaging Services [address] [place] [address] Cerv Spine 4 or 5 Views MR#: [id number] Acct: [id number] Name: JESUS ALBERTO GUEVARA Rep #: [id number] : 1940 M 77 From: Erwin Miller MD PCP: Jazlyn Zayas DO Status: REG CLI Study: Cerv Spine 4 or 5 Views Date of Exam: 12/20/17 Exam# [id number] Ordering Dr: Rosalba Lester MD STUDY: X-RAY - CERVICAL SPINE REASON FOR EXAM: Male, 77 years old. Right shoulder pain. Inflammatory polyarthropathy. TECHNIQUE: 5 view(s) of the cervical spine were obtained including oblique views. COMPARISON: None FINDINGS: There are degenerative changes of the anterior atlantoaxial articulation. Normal odontoid process. There is straightening of the normal cervical lordosis. There is multi-level endplate spondylosis. There is multi-level degenerative disc disease with multilevel disc space narrowing. Normal visualized intervertebral neuroforamina. There are atherosclerotic vascular calcifications of the carotid arteries. RAD/Cerv Spine 4 or 5 Views IMPRESSION: Straightening of the normal cervical lordosis. Degenerative changes. Electronically Signed: Erwin Miller MD at 12:46 EDT Tel [phone], Service support , CC: Jazlyn Zayas DO; Rosalba Lester MD Network Operations Specialist: Signed Jazlyn Zayas Start: 02-06-2013 History of placement of stent for coronary artery disease History of coronary artery stent placement Dr. Jazlyn Zayas Work Phone: Comment on above: PCI-TAMEKA-Mid LAD 3.0 x 15 mm Resolute Int egrity Stent 02/06/2013 History of coronary artery bypass grafting S/P CABG (coronary artery bypass graft) Consuelo Bonner DO Work Phone: History of coronary artery bypass grafting S/P CABG (coronary artery bypass graft) Phillip Jo APRN - EXPERIMENTAL WELDER Work Phone: Plan of Treatment Date Care Activity Detail Author Start: 12-19-2023 Thyroid stimulating hormone measurement TSH Level [facility] Start: 12-07-2023 Patient discharge [facility] Start: 12-07-2023 Referral to service [facility] Start: 12-04-2023 Blood chemistry [facility] Start: 12-04-2023 Application of intermittent pneumatic compression device [facility] Start: 12-03-2023 Following clinical pathway protocol [facility] Start: 12-03-2023 Assessment of risk of venous thromboembolism [facility] Start: 12-03-2023 Fall prevention [facility] Start: 12-03-2023 Insertion of catheter into peripheral vein [facility] Start: 12-03-2023 Measuring intake and output [facility] Start: 12-03-2023 Providing care according to standard [facility] Start: 12-03-2023 Provision of activity privileges [facility] Start: 12-03-2023 Referral to occupational therapist [facility] Start: 12-03-2023 Referral to service [facility] Start: 12-03-2023 [facility] Start: 12-03-2023 Verification routine [facility] Start: 12-03-2023 Admission procedure [facility] Start: 03-29-2023 Influenza vaccination Influenza Vaccine (Season Ended) [facility] Start: 03-22-2023 Procedure Education Eprescribed prescriptions (G8553) [facility] Work Phone: Start: 01-23-2023 End: 01-23-2023 Patient encounter procedure 01/23/2023 11:00 AM EDT Office Visit [facility] [address] [place] [id number] Phillip Jo, NARAYAN - EXPERIMENTAL WELDER [address] [place], [place] [id number] [facility] Start: 01-21-2023 [facility] Start: 01-21-2023 Patient referral to dietitian [facility] Start: 01-04-2023 Patient referral [facility] Work Phone: Start: 01-02-2023 End: 02-01-2023 XR Chest 2 Views XR chest 2 views Imaging Routine S/P CABG (coronary artery bypass graft) Expected: 01/02/2023, Expires: 02/01/2023 [facility] [employer] [facility] Work Phone: Comment on above: Expected: 01/02/2023, Expires: Start: 01-02-2023 End: 01-02-2023 Patient encounter procedure 01/02/2023 Office Visit Cardiothoracic Surgery Phillip Jo, DIE SINKER APPRENTICE - EXPERIMENTAL WELDER [address] [address] [facility] Start: 12-18-2022 Patient discharge [facility] Start: 12-18-2022 Notification of physician [facility] Start: 12-18-2022 Patient education [facility] Start: 12-18-2022 Provision of activity privileges [facility] Start: 12-18-2022 Pulse taking [facility] Start: 12-18-2022 Taking patient vital signs [facility] Start: 12-18-2022 Wound care [facility] Start: 12-18-2022 [facility] Start: 12-17-2022 Referral to customer relations assistant [facility] Start: 12-17-2022 Catheterization of vein [facility] Start: 12-17-2022 Medication not administered [facility] Start: 12-17-2022 Notification of physician [facility] Start: 12-17-2022 Cardiac catheterization [facility] Start: 12-17-2022 End: 12-17-2022 [facility] Start: 12-17-2022 Following clinical pathway protocol [facility] Start: 12-17-2022 Assessment of risk of venous thromboembolism [facility] Start: 12-17-2022 Fall prevention [facility] Start: 12-17-2022 Inhalation therapy procedure [facility] Start: 12-17-2022 Insertion of catheter into peripheral vein [facility] Start: 12-17-2022 Introduction of urinary catheter [facility] Start: 12-17-2022 Measuring intake and output [facility] Start: 12-17-2022 Oxygen therapy [facility] Start: 12-17-2022 Providing care according to standard [facility] Start: 12-17-2022 Provision of activity privileges [facility] Start: 12-17-2022 Referral to service [facility] Start: 12-17-2022 [facility] Start: 12-17-2022 Admission procedure [facility] Start: 05-03-2022 Procedure Education Eprescribed prescriptions (G8553) [facility]; [facility] Work Phone: Start: 05-03-2022 Provider Instructions for Treatment [facility]; [facility] Work Phone: Start: 05-03-2022 Potassium serum plasma/whole blood POTASSIUM SERUM (80305) [facility]; [facility] Work Phone: Comment on above: to do in late apr or early may Start: 05-03-2022 Cortisol total CORTISOL, A.M. (40458) [facility] Work Phone: Start: 05-03-2022 Assay of renin RENIN (19882) [facility] Work Phone: Start: 05-03-2022 Assay of aldosterone ALDOSTERONE (12949) [facility] Work Phone: Start: 04-29-2022 Potassium serum plasma/whole blood POTASSIUM SERUM (18752) [facility]; [facility] Work Phone: Start: 02-05-2022 COVID-19 Vaccine (3 - Booster for Moderna series) COVID-19 Vaccine (3 - Booster for Moderna series) [facility] Start: 2022 Procedure Education Eprescribed prescriptions (G8553) [facility]; [facility] Work Phone: Start: 2022 Provider Instructions for Treatment [facility]; [facility] Work Phone: Start: 01-29-2022 [facility] Work Phone: Start: 10-26-2021 Procedure Education Eprescribed prescriptions (G8553) [facility]; [facility] Work Phone: Start: 10-26-2021 Provider Instructions for Treatment [facility]; [facility] Work Phone: Start: 10-26-2021 25 hydroxy includes fractions if performed CALCIFIDIOL (17983) VIT D 25 [facility]; [facility] Work Phone: Start: 10-26-2021 Assay of thyroid stimulating hormone tsh TSH (36354) [facility]; [facility] Work Phone: Start: 10-26-2021 Urnls dip stick/tablet reagent auto microscopy URINALYSIS, W/ MICRO (00007) [facility]; [facility] Work Phone: Start: 10-26-2021 Urine albumin quantitative MICROALBUMIN: CREATININE RATIO (77140) AND (07161) [facility]; [facility] Work Phone: Start: 10-26-2021 Comprehensive metabolic panel METABOLIC PANEL, COMPREHENSIVE (61512) [facility]; [facility] Work Phone: Start: 10-26-2021 Lipid panel LIPID PANEL (55080) [facility] Work Phone: Start: 10-26-2021 Blood count complete auto&auto difrntl wbc CBC W/AUTO DIFF WBC (58484) [facility]; [facility] Work Phone: Start: 08-29-2021 Procedure Education Eprescribed prescriptions (G8553) [facility]; [facility] Work Phone: Start: 08-29-2021 Provider Instructions for Treatment Follow up if no improvement or if symptoms worsen [facility]; [facility] Work Phone: Start: 05-04-2021 Procedure Education Eprescribed prescriptions (G8553) [facility]; [facility] Work Phone: Start: 05-04-2021 Provider Instructions for Treatment [facility]; [facility] Work Phone: Start: 04-14-2021 Procedure Education Eprescribed prescriptions (G8553) [facility]; [facility] Work Phone: Start: 04-14-2021 Provider Instructions for Treatment [facility]; [facility] Work Phone: Start: 03-24-2021 Blood count automated differential wbc count BLOOD COUNT, AUTOMATED DIFF WBC (08837) [facility]; [facility] Work Phone: Start: 03-24-2021 Urnls dip stick/tablet reagent auto microscopy URINALYSIS, W/ MICRO (84902) [facility]; [facility] Work Phone: Start: 10-20-2020 Procedure Education Eprescribed prescriptions (G8553) [facility]; [facility] Work Phone: Start: 10-20-2020 Provider Instructions for Treatment [facility]; [facility] Work Phone: Start: 10-20-2020 Lipoprotein blood kena numbers & subclasses NMR Profile (05855) [facility]; [facility] Work Phone: Comment on above: do in 6mo-= sept 21 Start: 10-12-2020 Procedure Education Eprescribed prescriptions (G8553) [facility]; [facility] Work Phone: Start: 10-12-2020 Provider Instructions for Treatment [facility]; [facility] Work Phone: Start: 02-06-2019 Procedure Education Eprescribed prescriptions (G8553) [facility] Work Phone: Start: 01-19-2019 Patient Education Tick Bite [facility] Work Phone: Start: 01-19-2019 Procedure Education Eprescribed prescriptions (G8553) [facility] Work Phone: Start: 01-19-2019 Provider Instructions for Treatment Follow up if no improvement or if symptoms worsen [facility] Work Phone: Start: 11-26-2018 Procedure Education Eprescribed prescriptions (G8553) [facility] Work Phone: Start: 11-04-2018 Procedure Education Eprescribed prescriptions (G8553) [facility] Work Phone: Start: 11-04-2018 Provider Instructions for Treatment Follow up in 2 weeks [facility] Work Phone: Start: 08-21-2017 Pneumococcal Vaccine: 65+ Years (2 - PCV) Pneumococcal Vaccine: 65+ Years (2 - PCV) [employer] Start: 12-06-2016 Procedure Education Eprescribed prescriptions (G8553) [facility] Work Phone: Start: 02-10-2016 Provider Instructions for Treatment [facility] Work Phone: Start: 02-10-2016 Blood occult fecal hgb deter ia qual feces 1-3 FECAL OCCULT- Tubes sent home (64630) [facility] Work Phone: Start: 01-27-2016 Provider Instructions for Treatment [facility] Work Phone: Start: 06-03-2015 Patient Education Fibromyalgia *: musculoskeletal [facility] Work Phone: Start: 06-03-2015 Procedure Education Eprescribed prescriptions (G8553) [facility] Work Phone: Start: 06-03-2015 Provider Instructions for Treatment [facility] Work Phone: Start: 06-03-2015 Assay of thyroid stimulating hormone tsh TSH (17546) [facility] Work Phone: Start: 06-03-2015 Thyrotropin Qn TSH (64269) [facility] Work Phone: Start: 06-03-2015 Urine albumin quantitative MICROALBUMIN: CREATININE RATIO (38640) AND (20536) [facility] Work Phone: Start: 06-03-2015 Blood count complete auto&auto difrntl wbc CBC W/AUTO DIFF WBC (80294) [facility] Work Phone: Start: 06-03-2015 Comprehensive metabolic panel METABOLIC PANEL, COMPREHENSIVE (96559) [facility] Work Phone: Start: 06-03-2015 Lipid panel LIPID PANEL (06350) [facility] Work Phone: Start: 06-03-2015 25 hydroxy includes fractions if performed CALCIFIDIOL (31561) VIT D 25 [facility] Work Phone: Start: 12-01-2014 Provider Instructions for Treatment *URI Treatment [facility] Work Phone: Start: 07-08-2014 Provider Instructions for Treatment [facility] Work Phone: Start: 05-29-2014 25 hydroxy includes fractions if performed CALCIFIDIOL (12211) VIT D 25 [facility] Work Phone: Start: 03-01-2014 Provider Instructions for Treatment Shingles Vaccine Education 2005 [facility] Work Phone: Start: 01-11-2014 Assay of phosphorus inorganic PHOSPHORUS (34025) [facility] Work Phone: Start: 01-11-2014 Phosphate mass conc PHOSPHORUS (35876) [facility] Work Phone: Start: 12-09-2013 Provider Instructions for Treatment [facility] Work Phone: Start: 12-01-2013 Provider Instructions for Treatment Cryotherapy-- 3 lesions on forehead [facility] Work Phone: Start: 12-01-2013 Blood count manual cell count each CBC WITH MANUAL DIFF (18681) [facility] Work Phone: Start: 11-23-2013 Urnls dip stick/tablet rgnt auto w/o microscopy URINALYSIS W/O MICRO (94897) [facility] Work Phone: Start: 11-16-2013 Sedimentation rate rbc non-automated Sed Rate Erythrocyte (73824) [facility] Work Phone: Start: 11-16-2013 Creatinine clearance CREATININE CLEARANCE (87622) [facility] Work Phone: Start: 11-16-2013 Protein mass conc (U) Urine Protein Electrophoresis (UPEP) (47909) [facility] Work Phone: Start: 11-16-2013 Protein electrophoretic fractj&quantj serum [facility] Work Phone: Start: 11-16-2013 Protein mass conc Serum Protein Electrophoresis (SPEP) (74310) [facility] Work Phone: Start: 11-16-2013 Antinuclear antibodies maynor MAYNOR (ANTINUCLEAR ANTIBODY) (25400) [facility] Work Phone: Start: 11-16-2013 Nuclear Ab IF titer (S) MAYNOR (ANTINUCLEAR ANTIBODY) (79866) [facility] Work Phone: Start: 11-16-2013 Assay of magnesium MAGNESIUM (52361) [facility] Work Phone: Start: 11-16-2013 Magnesium mass conc MAGNESIUM (63167) [facility] Work Phone: Start: 11-16-2013 Assay of phosphorus inorganic PHOSPHORUS (54792) [facility] Work Phone: Start: 11-16-2013 Phosphate mass conc PHOSPHORUS (97735) [facility] Work Phone: Start: 11-16-2013 25 hydroxy includes fractions if performed CALCIFEDIOL (56790) [facility] Work Phone: Start: 11-16-2013 Assay of parathormone PARATHORMONE (39443) [facility] Work Phone: Start: 11-16-2013 Assay of urine sodium SODIUM SPOT URINE (38033) [facility] Work Phone: Start: 11-16-2013 Sodium molar conc (U) SODIUM SPOT URINE (42911) [facility] Work Phone: Start: 11-16-2013 Blood count manual cell count each CBC WITH MANUAL DIFF (59165) [facility] Work Phone: Start: 11-16-2013 Comprehensive metabolic panel METABOLIC PANEL, COMPREHENSIVE (68884) [facility] Work Phone: Start: 11-03-2013 Provider Instructions for Treatment [facility] Work Phone: Start: 10-21-2013 Provider Instructions for Treatment *Antibiotic Usage Education - Male [facility] Work Phone: Start: 08-17-2011 Sedimentation rate rbc non-automated Sed Rate Erythrocyte (30433) [facility] Work Phone: Start: 08-17-2011 Blood count complete auto&auto difrntl wbc CBC, Platelets & Auto Diff (33420) [facility] Work Phone: Start: 08-17-2011 Assay of troponin quantitative Troponin I (16893) [facility] Work Phone: Start: 08-17-2011 Troponin I.cardiac mass conc Troponin I (30829) [facility] Work Phone: Start: 08-17-2011 Creatine kinase mb fraction only CPK MB FRACTION (44747) [facility] Work Phone: Start: 08-17-2011 Creatine kinase total CREATINE KINASE TOTAL (81719) [facility] Work Phone: Start: 08-17-2011 Comprehensive metabolic panel Metabolic Panel, Comprehensive (20494) [facility] Work Phone: Start: 04-03-2011 Basic metabolic panel calcium total METABOLIC PANEL, BASIC (32685) [facility] Work Phone: Start: 09-24-2007 Provider Instructions for Treatment [facility] Work Phone: Start: 01-10-2007 Provider Instructions for Treatment [facility] Work Phone: Start: 08-20-2006 Provider Instructions for Treatment [facility] Work Phone: Start: 08-12-2006 Provider Instructions for Treatment BP MONITORING - SELF [facility] Work Phone: Start: 08-12-2006 aPTT Coag time (Bld) PTT (ACTIVATED PARTIAL THROMBOPLASTIN TIME) (15854) [facility] Work Phone: Start: 08-12-2006 Prothrombin time PT (PROTHROMBIN TIME) (04516) [facility] Work Phone: Start: 08-12-2006 Prothrombin time (PT) Coag time (PPP) PT (PROTHROMBIN TIME) (19475) [facility] Work Phone: Start: 08-12-2006 Thromboplastin time partial plasma/whole blood PTT (ACTIVATED PARTIAL THROMBOPLASTIN TIME) (12184) [facility] Work Phone: Start: 08-12-2006 Basic metabolic panel calcium total METABOLIC PANEL, BASIC (22178) [facility] Work Phone: Start: 08-12-2006 Blood count manual cell count each CBC WITH MANUAL DIFF (65846) [facility] Work Phone: Start: 1991 Zoster Vaccines (1 of 2) Zoster Vaccines (1 of 2) [facility] Start: 02-01-1960 DTaP/Tdap/Td Vaccines (1 - Tdap) DTaP/Tdap/Td Vaccines (1 - Tdap) [facility] Start: 1953 Depression Screening Depression Screening [facility] Start: 02-01-1948 DTaP/Tdap/Td Vaccines (1 - Tdap) DTaP/Tdap/Td Vaccines (1 - Tdap) [facility] Start: 1947 Pneumococcal Vaccine: 65+ Years (1 - PCV) Pneumococcal Vaccine: 65+ Years (1 - PCV) [facility] Start: 1941 Hepatitis B Vaccines (1 of 3 - 3-dose series) Hepatitis B Vaccines (1 of 3 - 3-dose series) [facility] Start: 1940 Lipid panel Lipid Panel [facility] Anion gap measurement [facility] BUN/Creatinine ratio [facility] Calcium [Mass/volume ] in Serum or Plasma [facility] Carbon dioxide, tota l [Moles/volume] in Serum or Plasma [facility] CBC W Auto Different ial panel - Blood [facility] Chloride [Moles/volu me] in Serum or Plasma [facility] Comprehensive metabo lic 1999 panel - Serum or Plasma [facility] Creatinine [Moles/volume] in Serum or Plasma [facility] Erythrocyte mean corpuscular volume determination [facility] Glucose [Mass/volume ] in Serum or Plasma [facility] Hematocrit [Volume Fraction] of Blood [facility] Hemoglobin [Mass/volume] in Blood [facility] Leukocytes [#/volume ] in Blood [facility] Lipid 1995 panel - Serum or Plasma [facility] Lipid 1995 panel - Serum or Plasma [facility] Mean corpuscular hemoglobin concentration determination [facility] Mean corpuscular hemoglobin determination [facility] Measurement of renal function [facility] Neutrophil count [facility] Neutrophil percent differential count [facility] Patient referral [facility] Work Phone: Platelets [#/volume] in Blood [facility] Potassium [Moles/volume] in Serum or Plasma [facility] Radionuclide imaging of perfusion of myocardium under exercise stress [facility] Red blood cell count [facility] Red cell distributio n width determination [facility] Sodium [Moles/volume ] in Serum or Plasma [facility] Thyroid stimulating hormone measurement [facility] Urea nitrogen [Mass/volume] in Serum or Plasma [facility] End: 12-20-2022 US Heart Transesophageal Transesophageal echocardiogram (CLYDE) with contrast and 3D PRN CV Echocardiography Routine CAD in [place] artery Once for 1 Occurrences starting 12/20/2022 until 12/20/2022 [email or web address] [facility] Work Phone: Comment on above: Once for 1 Occurrences starting 12/21/19 until 12/20/2022 US Heart Transesophageal Transesophageal echocardiogram (CLYDE) with contrast and 3D PRN CV Echocardiography Routine CAD in [place] artery 12/20/2022 1:55 PM EDT [email or web address] Vitamin D, 1,25-dihydroxy measurement [facility] Work Phone: [facility] Work Phone: [facility] Work Phone: [facility] Work Phone: [facility] Work Phone: [facility] Work Phone[facility] Work Phone: [facility] Work Phone: [facility] Work Phone[facility] Work Phone: [facility] Work Phone: [facility] Work Phone[facility] Work Phone: [facility] Work Phone: [facility] Work Phone: [facility] Work Phone: [facility] Work Phone: [facility] Work Phone: [facility]; [facility] Work Phone: Immunizations Immunization Date Immunization Notes Care Provider [facility] 08-21-2016 pneumococcal polysaccharide vaccine, [address] Jazlyn Zayas Work Phone: [facility] 05-16-2009 influenza virus vacc ine, unspecified formulation Consuelo Bonner DO Work Phone: [facility] [employer] Payers Date Payer Category Payer Self-pay [id number] 2021 Medicare REPLACED BY [facility] MEDICARE ADVANTAGE FORMERLY [facility] MEDICARE ADVANTAGE [id number] 2021-Present [address] [place] [address] Medicare HMO [id number] 2018 Medicare [id number] 2011 Unknown [id number] 2006 Medicare [id number] 2002 Unknown [id number] 1940 Unknown [id number] Medicare [id number] Medicare [id number] Unknown [place]/Medicare Adv plan Unknown [id number] Unknown [id number] Unknown [id number] Unknown [id number] Unknown [id number] Unknown [id number] Unknown [id number] Unknown [id number] Unknown [id number] Social History Date Type Detail Facility Start: 12-18-2022 Alcohol Use Former smoker [facility] Work Phone: Comment on above: Occasional alcohol u se updated 03-27-11 Tobacco use: Former smoker. S mokes a pipe. [facility] Work Phone: Tobacco use: Tobacco use: [facility] Work Phone: Start: 08-15-2021 End: 12-03-2023 Tobacco smoking status WVIS Unknown if ever smoked [facility] Start: 10-23-2018 [facility] Start: 10-26-2018 None [facility] Start: 10-26-2018 Spouse/ Signif icant Other [facility] Start: 04-28-2019 Non-smoker [facility] Start: 1940 Sex Assigned At Male W [facility] Start: 12-18-2022 History SDOH Alcohol Frequency 1 [facility] Start: 12-18-2022 History SDOH Alcohol Std Drinks 0 [facility] Start: 12-18-2022 History SDOH IPV Fear 2 S [facility] Start: 1940 Sex Assigned At Not on file S [facility] Start: 12-18-2022 Humiliation, Afraid, Rape, and Kick questionnaire [HARK] [facility] Within the last year , have you been afraid of your partner or ex-partner? No [facility] How often to you hav e a drink containing alcohol? Never [facility] How many standard drinks containing alcohol do you have on a typical day? Patient does not drink [facility] Start: 12-23-2022 End: 01-23-2023 Exposure to SARS-CoV-2 (event) Not sure [facility] Start: 12-03-2023 Tobacco smoking stat us WVIS Ex-smoker (finding) [facility] Start: 10-08-2024 Sex Male (finding) [facility] Goals Date Patient Goal Desired Activity /State Functional Status Date Assessment Result Facility 12-07-2023 Functional status With Assist of 1 [facility] Work Phone: 12-07-2023 Functional status Patient Activi ty Bathroom Privilege [facility] Work Phone: 12-18-2022 Functional status Ambulates;Up a d ricki [facility] Work Phone: 03-24-2021 LP-IR Score LP-IR Score 76 [facility]; [facility] Work Phone: Comment on above: INSULIN RESISTANCE Jose LEWIS <--Insulin Sensitive Insulin Resistant--> Percentile in Reference PopulationInsulin Resistance ScoreLP-IR Score Low 25th 50th 75th High <27 27 45 63 >63LP-IR Score is inaccurate if patient is non-fasting. .The LP-IR score is a laboratory developed index that has beenassociated with insulin resistance and diabetes risk and should beused as one component of a physician's clinical assessment. Test(s) 438974-TVI-D ; 677442-MRI-Q; 295420-Lyitjvjpfwxiv; 951697-Ltzrlwbivkb, Total; 943112-VQS-E (Total); 059166-Quutw LDL-P; 755681-FDM Size; 661821-AJ-RP Scorewas developed and its performance characteristics determinedby [employer]. It has not been cleared or approved by the Foodand Drug Administration.PATIENT WAS FASTINGPERFORMED BY: BN [facility] [id number] [facility] [id number] BY: CB [facility]CoL[facility] CountyFcagtq8878 [facility] [id number] Mental Status Date Assessment Result Facility 12-06-2023 Cognitive function Voice/Name [facility] Work Phone: 12-18-2022 Cognitive function Voice/Name [facility] Work Phone: 01-29-2022 Cognitive function Level Of Cons ciousness Awake;Alert;Appropriate;Follow s Commands [facility] Work Phone: 08-17-2021 Cognitive function Voice/Name;To uch/Shaking;Light Pain;Deep Pain [facility] Work Phone: Clinical Notes 02-06-2013 to 12-29-2024 Note Date & Type Note Facility 12-29-2024 Progress note [facility] 12-29-2024 Progress note Note Date/Time December 29, 2024 9:08am [facility] [address], [address] [place] [address] OFFICE VISIT Date of Service: 12/29/24 MR#: [id number] Acct: [id number] Name: JESUS ALBERTO GUEVARA JrAnne-Marie Rep #: [id number] : 1940 Provider: DAO Gill Age/Sex: 84/M Location: [email or web address] Status: Signed Intake Vital Signs 08/25/24 09:12 12/29/24 08:53 Height 5 ft 11 in BP 154/74 H Blood Pressure Location Lt brachial Position Sitting Respiration 16 Pulse 68 Pulse Source NIBP Temp 98.9 F Temp Source Oral Pulse Oximetry (%) 100 Oxygen Delivery Method room air Intake Visit Reasons: TICK BITE/CONCERN FOR INFECTION Chief Complaint: infected tick bite Claims Adjustor Required: No Is patient in pain?: No Allergies No Known Allergies Allergy (Verified 12/29/24 08:54) Have you fallen in the past year?: No Nurse's Note: tick bite to posterior right upper arm x 5 days with redness. pt saw PCP at that time stating there was a bulls eye. given Doxy x2 tabs, pt took as directed, bulls eye is gone but redness/pain continues. no active drainage, or fever. pt concerned about infection. 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 alcohol intake: current alcohol intake frequency: holidays/special occasions only substance use type: does not use HPI HPI Chief Complaint: infected tick bite Details: JESUS ALBERTO GUEVARA, is a 84 M who presents to the office today for [facility] for a tick bite to the right upper posterior arm occurring on 12/24/2024 while flyfishing in [place] with his son. He went to local urgent care where he was told it was an adult deer tick that had bitten him (after his daughter have removed the tick and full at home) and gave him a one-time dose of doxycycline. Patient states he appreciated true, bull's-eye presentation with the outer ring having resolved since then though persistent discomfort and swelling is appreciated to the same. Currently without complaints of fever, chills, sweats, lightheadedness/dizziness, nausea/vomiting though mild headache on date of tick bite was appreciated. No complaints of myalgias or joint pain or neck pain. No ktkm-hxo-oadhkqd products taken to assist. No other associated symptoms and no alleviating/aggravating factors. ROS Const Constitutional: No other (As above) Exam Const General: cooperative, healthy appearing and no acute distress Orientation: alert and awake HENMI Head: normal to inspection Ears: hearing grossly normal bilaterally and external ears normal Nose: external nose normal and no nasal discharge Eyes General: appearance normal, both eyes and all related structures Chest Chest palpation & inspection: normal inspection of the chest Resp Effort & Inspection: normal respiratory effort and able to speak in complete sentences Cardio Rate: regular rate Pulses: radial pulses present Skin General: no rashes or lesions noted Other: Except approximately 2 cm diameter erythematous fluctuant tender to palpation lesion with black center to the right upper posterior arm appreciated to palpation. Site was cleansed with Betadine and saline then 23-gauge needle puncture to the center of the site to release pressure with a mild amount of sanguinous discharge expressed, site recleansed then bacitracin ointment and Band-Aid applied thereafter which patient tolerated well. Neuro General: patient alert and patient awake Cognition: normal cognition Speech: speech normal Extrem General: normal to inspection Psych Appearance: grossly normal Mental Status: mental status grossly normal Mood: congruent mood Affect: normal affect Speech and Movement: speech and movement normal Attitude: cooperative Coding Level of Care Code Off vis,est,level 3 Diagnoses Erythema migrans (Lyme disease) A69.20 Assessment and Plan Assessment and Plan (1) Erythema migrans (Lyme disease): Status: Chronic Plan: - by patient history though not appreciated by my inspection today 2-week course of doxycycline as prescribed today. Wound care as instructed today. See puncture wound procedure above. Follow-up with PCP first available appointment for reassessment and continuationof care, ED sooner should symptoms only worsen or any other concerns develop. Patient states acknowledging understanding all the above. This note was generated with [employer] dictation software. It may contain incorrectwords, spelling, and punctuation that were not noted in checking the note beforesigning. Medications: New doxycycline monohydrate 100 mg PO BID 28 caps 0RF Clinical Quality Measures Falls Risk Screening/Assistive Devices Have you fallen in the past year?: No 12/29/24 0908 <Electronically signed by Clinton DC> Date _ [place] DC Cosigner Signature: Date (if applicable) CC: ~ [facility] Work Phone: 1(338) 392-334302-28-2025 Evaluation note* Diagnosis Onset Date Resolution Status Admit Date Acute upper respiratory infection acute September 25, 2 025 11:47am Erythema migrans (Lyme disease) chronic December 29, 2024 8 :51am [facility] [employer] Work Phone: 1(406) 736-810202-28-2025 Evaluation note* Diagnosis Onset Date Resolution Status Admit Date Acute upper respiratory infection acute September 25, 2 025 11:47am Erythema migrans (Lyme disease) chronic December 29, 2024 8 :51am Essential hypertension acute 2024 9:13am Fatigue acute January 20 9:13am Hyperlipidemia acute January 20, 2025 9:13am Postoperative atrial fibrillation acute January 20, 2025 9:13am S/P CABG x 4 December 20, 2022 acute December 9:13am [facility] Work Phone: 1(723) 417-123802-28-2025 Radiology Diagnostic study note [facility] Imaging Services [address] [place], [place] [address] Chest PA and Lateral MR#: [id number] Acct: [id number] Name: PAOLAJESUS ALBERTO Giancarlo Lopez Rep #: [id number] : 1940 M 84 From: Steven Miller MD PCP: Dr. Jazlyn Zayas, DO Status: RE G CLI Study:Chest PA and Lateral Date of Exam: 09/25/24 Exam# [id number] Ordering Dr: Cyrus Rodriguez PA PA PROCEDURE: CHEST PA AND LATERAL REASON FOR EXAM: One-week history of chest congestion and cough. TECHNIQUE: Frontal and lateral views of the chest. COMPARISON: Comparison is made with prior study dated December 03, 2023. FINDINGS: Hyperinflation. The lungs are clear. The bones are unremarkable. Status post CABG. Unfolding of the descending thoracic aorta. RAD/Chest PA and Lateral IMPRESSION: No acute abnormality is seen. Reading Location: [facility] CC: DAO Dobbs; Dr. Jazlyn Zayas, DO ~ Network Operations Specialist: Signed [facility]01-28-2025 Evaluation note* Diagnosis Onset Date Resolution Status Admit Date Essential hypertension acute Ja nuary 2024 9:08am Hyperlipidemia acute August 252024 9:08am Postoperative atrial fibrillation acute August 25, 20 25 9:08am S/P CABG x 4 December 20, 2022 acute August 25, 2024 9:08am Acute upper respiratory infection acute September 25, 2 025 11:47am [facility] Work Phone: 1(695) 295-100205-11-2024 Progress note Author Hiren Mcintyre [facility] December 07, 2023 9:59am Note Date/Time December 07, 2023 9:59a m [facility] Medical Records Department [address] [place] [address] Progress Note - Hospitalist 12/07/23 0957 MR#: [id number] Acct: [id number] Name: JESUS ALBERTO GUEVARA Jr. Rep #:[id number] : 1940 83 From: Hiren mancini MD PCP: Dr. Jazlyn Zayas, Status:AD M VAISHNAVI Location: [place] [address]-1 Subjective Subjective Maybe a little bit better than yesterday, complain of constipation this morning Objective Data Objective Data Vital Signs: Vital Signs Temp Pulse Resp BP Pulse Ox O2 Del Method 98.1 F 68 16 149/94 H 96 Room Air 12/07/23 02:35 12/07/23 02:35 12/07/23 02:35 12/07/23 02:35 12/07/23 02:35 12/07/23 02:35 Oxygen Delivery Method Room Air Weight: 232 lb 5.875 oz Body Mass Index (BMI) 32.3 Intake & Output: Intake and Output for Last 24 Hours 12/06/23 12/07/23 12/08/23 03:59 03:59 03:59 Intake Total 950 / 950 Output Total 250 / 250 800 / 800 250 / 250 Balance 700 / 700 -800 / -800 -250 / -250 Lab / Micro Data 12/07/23 05:35 05/11/24 05:35 Labs: Laboratory Results - last 24 hr 12/07/23 05:35: WBC 7.7, RBC 5.61, Hgb 15.9, Hct 49.6, MCV 88.4, MCH 28.3, MCHC 32.1, RDW Std Deviation 43.3, RDW Coeff of Anyi 13.4, Plt Count 164, MPV 10.9, Immature Gran % (Auto) 0.300, Neut % (Auto) 62.6, Lymph % (Auto) 24.9, [place] % (Auto) 8.8, Eos % (Auto) 2.6, Baso % (Auto) 0.8, Absolute Neuts (auto) 4.8, Absolute Lymphs (auto) 1.92, Nucleated RBC % 0, Sodium 139, Potassium 3.8, Chloride 108 H, Carbon Dioxide 28.0, Anion Gap 3 L, BUN 20 H, Creatinine 1.32 H,Estim Creat Clear Calc 53.30, Est GFR (MDRD) Af Amer 67, Est GFR (MDRD) Non-Af 55 L, BUN/Creatinine Ratio 15.2, Glucose 80, Calcium 8.6 Physical Exam Narrative General: Alert, Oriented x3, Cooperative, No apparent distress HEENT: Atraumatic, PERRLA, EOMI, Normocephalic Oral: Moist Mucosa Neck: Supple, No JVD, slight ecchymosis on his left neck from fall Lungs: Clear to auscultation, Normal air movement, No rhonchi, No wheeze, No rales Cardiovascular: Regular rate, Regular Rhythm, Normal S1, Normal S2, No murmurs Abdomen: Soft, Non Tender, Non-Distended, No Hepato-splenomegaly Extremities: No edema, Capillary Refill Less than 3 Seconds Skin: No rashes, No breakdown Musculoskeletal: No Tenderness to Palpation of Joints or Extremities, he was in too much pain to be manipulated into examining his back at this time Neurological: No focal neurological deficits, Motor Exam 5/5 strength throughout, Sensory exam intact to light touch and pain Psych/Mental Status: Normal Affect, Appropriate Assessment & Plan Assessment/Plan (1) Fall: PLAN: Plan 1. Mechanical fall with intractable back pain ? He was trying to sit on his hammock which flipped and he fell onto the ground and hurt his neck as well as his back. ? CT of the cervical spine as well as the x-rays of the thoracic spine were negative for fracture ? CT of the brain was negative for bleed ? Continue with narcotics and will schedule Tylenol ? Continue with PT/OT ? He refuses SNF placement ? Will add MiraLAX as he says he has not had a bowel movement in several days 2. CAD status post CABG/ essential HTN ? Blood pressure stable ? Resume his home blood pressure medications ? Will monitor make adjustments as necessary ? Continue with aspirin 3. Glaucoma ? Stable ? Continue with his home eyedrops DVT: SCDs Charges/Coding Visit Charges Inpatient E&M: 64904 Subs Hosp L2 12/07/23 0959 <Electronically signed by Hiren Mcintyre MD> Cosigner Signature (if applicable): CC: ~ Signed [facility] Work Phone: 1(109) 570-276605-10-2024 Progress note Author Hiren Mcintyre [facility] December 06, 2023 2:47pm Note Date/Time December 06, 2023 2:47p m [facility] Medical Records Department [facility] [place] [address] Progress Note - Hospitalist 12/06/23 1444 MR#: [id number] Acct: [id number] Name: JESUS ALBERTO GUEVARA Jr. Rep #:[id number] : 1940 83 From: Hiren mancini MD PCP: Dr. Jazlyn Zayas, DO Status:AD M VAISHNAVI Location: [place] [address] Subjective Subjective Had hiccups overnight so now he can go home Objective Data Objective Data Vital Signs: Vital Signs Temp Pulse Resp BP Pulse Ox O2 Del Method 98 F 66 18 159/100 H 94 Room Air 12/06/23 12:40 12/06/23 12:40 12/06/23 12:40 12/06/23 12:40 12/06/23 12:40 12/06/23 12:40 Oxygen Delivery Method Room Air Weight: 232 lb 5.875 oz Body Mass Index (BMI) 32.3 Intake & Output: Intake and Output for Last 24 Hours 12/05/23 12/06/23 12/07/23 03:59 03:59 03:59 Intake Total 2197.92 / 2197.92 950 / 950 Output Total 200 / 200 250 / 250 450 / 450 Balance / 700 / 700 -450 / -450 Lab / Micro Data 12/04/23 06:00 12/04/23 06:00 Physical Exam Narrative General: Alert, Oriented x3, Cooperative, No apparent distress HEENT: Atraumatic, PERRLA, EOMI, Normocephalic Oral: Moist Mucosa Neck: Supple, No JVD, slight ecchymosis on his left neck from fall Lungs: Clear to auscultation, Normal air movement, No rhonchi, No wheeze, No rales Cardiovascular: Regular rate, Regular Rhythm, Normal S1, Normal S2, No murmurs Abdomen: Soft, Non Tender, Non-Distended, No Hepato-splenomegaly Extremities: No edema, Capillary Refill Less than 3 Seconds Skin: No rashes, No breakdown Musculoskeletal: No Tenderness to Palpation of Joints or Extremities, he was in too much pain to be manipulated into examining his back at this time Neurological: No focal neurological deficits, Motor Exam 5/5 strength throughout, Sensory exam intact to light touch and pain Psych/Mental Status: Normal Affect, Appropriate Assessment & Plan Assessment/Plan (1) Fall: PLAN: Plan 1. Mechanical fall with intractable back pain ? He was trying to sit on his hammock which flipped and he fell onto the ground and hurt his neck as well as his back. ? CT of the cervical spine as well as the x-rays of the thoracic spine were negative for fracture ? CT of the brain was negative for bleed ? Continue with narcotics and will schedule Tylenol ? Continue with PT/OT ? He refuses SNF placement 2. CAD status post CABG/ essential HTN ? Blood pressure stable ? Resume his home blood pressure medications ? Will monitor make adjustments as necessary ? Continue with aspirin 3. Glaucoma ? Stable ? Continue with his home eyedrops DVT: SCDs Charges/Coding Visit Charges Inpatient E&M: 02236 Subs Hosp L2 12/06/23 3809 <Electronically signed by Hiren Mcintyre MD> Cosigner Signature (if applicable): CC: ~ Signed [facility] Work Phone: 1(467) 623-129505-10-2024 Discharge summary Author Hiren Mcintyre [facility] December 06, 2023 7:25am Note Date/Time December 06, 2023 7:22a m [facility] Medical Records Department [address] [place] [address] Instructions for Home/Discharge Instructions 12/06/23 0721 MR#: [id number] Acct: [id number] Name: JESUS ALBERTO GUEVARA Jr. Rep #:[id number] : 1940 83 From: Hiren mancini MD PCP: Dr. Jazlyn Zayas, Status:AD M VAISHNAVI Discharge Instructions Diet Discharge Diet: Low fat / Low cholesterol Activity Discharge Activity: Return to Normal Activity and May Not Drive (While on narcotics) Dressing / Incision Call your doctor if you observe: Fever of 101 or Higher, Shortness of breath, Dizziness, Fainting spells, Swelling in the ankles, Chest pain and Increased palpitations (irregular heartbeat) Follow Up Care Test Results: Test results from this visit will be discussed in further detail at your follow- up appointment, if applicable. Discharge Plan Admission Admit Date/Time: 12/03/23 19:51 Attending Provider: Hiren Mcintyre Primary Care Provider: Jazlyn Zayas Consulting Providers: Linda Leal Discharge Orders/Prescriptions Prescriptions: New oxycodone 5 mg Tablet 10 mg PO Q4H PRN PRN (Reason: Pain Score 4-10) 3 Days Qty: 10 0RF Rx Instructions: Take 1-2 tabs as needed Continued aspirin [Adult Aspirin Regimen] 81 mg tablet,delayed release (DR/EC) 81 mg PO DAILY Qty: 90 3RF PreserVision AREDS 4,296 mcg-226 mg-90 mg capsule 1 cap PO BID cholecalciferol (vitamin D3) 2,000 UNIT tablet,chewable 2,000 unit PO DAILY Rocklatan 0.02-0.005 % drops 1 drp ophthalmic (eye) DAILY coenzyme Q10 [Co Q-10] 1 cap PO BID Patient Comments: PT UNAWARE OF STRENGTH, GETS FROM [facility] brimonidine 0.2 % drops 1 drp LEFT EYE BID timolol maleate 0.5 % drops 1 drp ophthalmic (eye) BID metoprolol tartrate 25 mg tablet 25 mg PO BID Qty: 180 3RF Referrals / Follow Up: Jazlyn Zayas DO [Primary Care Provider] - Within 1 Week Disposition Disposition (needs filled in before D/C Order can be placed): Home, Self Care 12/06/23 0725<Electronically signed by Hiren Mcintyre MD>Hiren Mcintyre MD CC: Dr. Jazlyn Zayas, ; Dr. Linda Leal MD ~ Signed [facility] Work Phone: 1(266) 655-951505-09-2024 Progress note Author Hiren Mcintyre [facility] December 05, 2023 9:56am Note Date/Time December 05, 2023 9:56am [facility] Medical Records Department [address] [place] [address] Progress Note - Hospitalist 12/05/23954 MR#: [id number] Acct: [id number] Name: JESUS ALBERTO GUEVARA Jr. Rep #:[id number] : 1940 83 From: Hiren mancini MD PCP: Dr. Jazlyn Zayas, Status:AD M VAISHNAVI Location: NC3 GR721-6 Subjective Subjective States he is feeling a little bit better today Objective Data Objective Data Vital Signs: Vital Signs Temp Pulse Resp BP Pulse Ox O2 Del Method 97.7 F L 68 18 160/90 H 94 Room Air 12/05/23 09:11 12/05/23 09:11 12/05/23 09:11 12/05/23 09:11 12/05/23 09:11 12/05/23 09:11 Oxygen Delivery Method Room Air Weight: 232 lb 5.875 oz Body Mass Index (BMI) 32.3 Intake & Output: Intake and Output for Last 24 Hours 12/04/23 12/05/23 12/06/23 03:59 03:59 03:59 Intake Total 400 / 400 2197.92 / 2197.92 Output Total 350 / 350 200 / 200 Balance 50 / 50 1996.92 / 1996. Lab / Micro Data 12/04/23 06:00 12/04/23 06:00 Physical Exam Narrative General: Alert, Oriented x3, Cooperative, No apparent distress HEENT: Atraumatic, PERRLA, EOMI, Normocephalic Oral: Moist Mucosa Neck: Supple, No JVD, slight ecchymosis on his left neck from fall Lungs: Clear to auscultation, Normal air movement, No rhonchi, No wheeze, No rales Cardiovascular: Regular rate, Regular Rhythm, Normal S1, Normal S2, No murmurs Abdomen: Soft, Non Tender, Non-Distended, No Hepato-splenomegaly Extremities: No edema, Capillary Refill Less than 3 Seconds Skin: No rashes, No breakdown Musculoskeletal: No Tenderness to Palpation of Joints or Extremities, he was in too much pain to be manipulated into examining his back at this time Neurological: No focal neurological deficits, Motor Exam 5/5 strength throughout, Sensory exam intact to light touch and pain Psych/Mental Status: Normal Affect, Appropriate Assessment & Plan Assessment/Plan (1) Fall: PLAN: Plan 1. Mechanical fall with intractable back pain ? He was trying to sit on his hammock which flipped and he fell onto the ground and hurt his neck as well as his back. ? CT of the cervical spine as well as the x-rays of the thoracic spine were negative for fracture ? CT of the brain was negative for bleed ? Continue with narcotics and will schedule Tylenol ? Continue with PT/OT ? He refuses SNF placement 2. CAD status post CABG/ essential HTN ? Blood pressure stable ? Resume his home blood pressure medications ? Will monitor make adjustments as necessary ? Continue with aspirin 3. Glaucoma ? Stable ? Continue with his home eyedrops DVT: SCDs Charges/Coding Visit Charges Inpatient E&M: 02277 Subs Hosp L2 12/05/23 0956 <Electronically signed by Hiren Mcintyre MD> Cosigner Signature (if applicable): CC: ~ Signed [facility] Work Phone: 1(746) 454-992405-08-2024 Progress note Author Hiren Mcintyre [facility] December 04, 2023 11:41am Note Date/Time December 04, 2023 11:38a m [facility] Medical Records Department [address] [place] [address] Progress Note - Hospitalist 12/04/23 1136 MR#: [id number] Acct: [id number] Name: JESUS ALBERTO GUEVAAR Rep #:[id number] : 1940 83 From: Hiren mancini MD PCP: Dr. Jazlyn Zayas, DO Status:AD M VAISHNAVI Location: MS3 HV432-2 Subjective Subjective Feels better than he did when he came in yesterday but still having significant pain after physical therapy try to get him set up at the edge of the bed which she did not do Objective Data Objective Data Vital Signs: Vital Signs Temp Pulse Resp BP Pulse Ox O2 Del Method 98.0 F 66 18 165/80 H 94 Room Air 12/04/23 08:52 12/04/23 09:09 12/04/23 08:52 12/04/23 08:52 12/04/23 08:52 12/04/23 08:52 Oxygen Delivery Method Room Air Weight: 232 lb 5.875 oz Body Mass Index (BMI) 32.3 Intake & Output: Intake and Output for Last 24 Hours 12/03/23 12/04/23 12/05/23 03:59 03:59 03:59 Intake Total 400 / 400 997.92 / 997.92 Output Total 350 / 350 Balance 50 / 50 997.92 / 997.92 Lab / Micro Data 12/04/23 06:00 12/04/23 06:00 Labs: Laboratory Results - last 24 hr 12/04/23 06:00: WBC 7.6, RBC 5.38, Hgb 15.8, Hct 48.2, MCV 89.6, MCH 29.4, MCHC 32.8, RDW Std Deviation 44.6 H, RDW Coeff of Anyi 13.8, Plt Count 172, MPV 10.9, Immature Gran % (Auto) 0.300, Neut % (Auto) 61.8, Lymph % (Auto) 23.2, [place]bon % (Auto) 12.0 H, Eos % (Auto) 2.0, Baso % (Auto) 0.7, Absolute Neuts (auto) 4.7, Absolute Lymphs (auto) 1.76, Nucleated RBC % 0, Sodium 142, Potassium 4.1, Chloride 111 H, Carbon Dioxide 26.0, Anion Gap 5, BUN 18, Creatinine 1.45 H, Estim Creat Clear Calc 48.52, Est GFR (MDRD) Af Amer 60, Est GFR (MDRD) Non-Af 49 L, BUN/Creatinine Ratio 12.4, Glucose 87, Calcium 8.0 L Radiography Diagnostic Testing: Radiology Impression Brain CT 12/03/23 14:43 IMPRESSION: Chronic involutional changes of the brain. Electronically Signed: Erwin Miller MD at 15:40 EDT , Cervical Spine CT 12/03/23 14:43 IMPRESSION: Degenerative changes of the cervical spine. Electronically Signed: Ye Bauer DO at 16:54 EDT , Thoracic Spine X-Ray 12/03/23 14:43 IMPRESSION: No fracture or dislocation in the thoracic spine. Moderate degenerative changes. Electronically Signed: Clinton Collier MD at 16:38 EDT , Ribs w/Chest X-Ray 12/03/23 15:55 IMPRESSION: RIBS: No displaced rib fracture identified. CHEST: Clear lungs. Electronically Signed: Clinton Collier MD at 16:39 EDT , Physical Exam Narrative General: Alert, Oriented x3, Cooperative, No apparent distress HEENT: Atraumatic, PERRLA, EOMI, Normocephalic Oral: Moist Mucosa Neck: Supple, No JVD, slight ecchymosis on his left neck from fall Lungs: Clear to auscultation, Normal air movement, No rhonchi, No wheeze, No rales Cardiovascular: Regular rate, Regular Rhythm, Normal S1, Normal S2, No murmurs Abdomen: Soft, Non Tender, Non-Distended, No Hepato-splenomegaly Extremities: No edema, Capillary Refill Less than 3 Seconds Skin: No rashes, No breakdown Musculoskeletal: No Tenderness to Palpation of Joints or Extremities, he was in too much pain to be manipulated into examining his back at this time Neurological: No focal neurological deficits, Motor Exam 5/5 strength throughout, Sensory exam intact to light touch and pain Psych/Mental Status: Normal Affect, Appropriate Assessment & Plan Assessment/Plan (1) Fall: PLAN: Plan 1. Mechanical fall with intractable back pain ? He was trying to sit on his hammock which flipped and he fell onto the ground and hurt his neck as well as his back. ? CT of the cervical spine as well as the x-rays of the thoracic spine were negative for fracture ? CT of the brain was negative for bleed ? Continue with narcotics and will schedule Tylenol ? Continue with PT/OT ? He refuses SNF placement 2. CAD status post CABG/ essential HTN ? Blood pressure stable ? Resume his home blood pressure medications ? Will monitor make adjustments as necessary ? Continue with aspirin 3. Glaucoma ? Stable ? Continue with his home eyedrops DVT: SCDs Charges/Coding Visit Charges Inpatient E&M: 53826 Subs Hosp L2 12/04/23 1141 <Electronically signed by Hiren Mcintyre MD> Cosigner Signature (if applicable): CC: ~ Signed [facility] Work Phone: 1(347) 728-934305-08-2024 Discharge summary Author Humza Don [facility] December 03, 2023 11:29pm Note Date/Time December 03, 2023 2:42pm [facility] Medical Records Department [address] [place] [address] Emergency Department Summary 12/03/23 MR#: [id number] Acct: [id number] Name: JESUS ALBERTO GUEVARA Jr. Rep #:[id number] : 1940 83 From: Humza Rincon PCP: Dr. Jazlyn Zayas, DO Status:AD M VAISHNAVI Location: [place] [address]-1 HPI HPI - Fall History of Present Illness Chief Complaint: Fall Informant: patient Occured/Mechanism Occurred: Today Narrative: Patient fell out of a hammock Pain/Injury Pain Location: head, neck, chest and back Quality of Pain: Sharp Worsened by: Movement Relieved by: Rest and remaining still Associated Symptoms Associated Symptoms: Positive for Parasthesias (Resolved after few seconds); Negative for Weakness, Loss of function, Inability to ambulate, Loss of consciousness or Amnesia Narrative Narrative: Patient presents after a fall that occurred today. Patient states he fell out of a hammock. Patient states he landed on the left side of his head. Patient states his head was side bent to the right. Patient states he felt some poppingsensation in his neck and thoracic spine. Patient states his pain is worse withany movement. Patient states that it is better with rest. Patient states he was having some tingling in his left upper extremity that lasted for a couple seconds and then resolved. Patient denies any weakness. Patient denies any loss of consciousness. Patient denies any other injuries. [facility] Medical History Atherosclerotic heart disease of [place] coronary artery without angina pectoris CKD (chronic kidney disease) stage 3, GFR 30-59 ml/min COVID-19 (08/14/21) Former smoker Glaucoma History of tapeworm infection Hyperlipidemia Macular degeneration of both eyes Perforation of sigmoid colon due to diverticulitis Prostate cancer TIA (transient ischemic attack) (09/2018) Home Medications cholecalciferol (vitamin D3) 50 mcg (2,000 unit) chewable tablet 2,000 unit PO DAILY SUPPLEMENT 10/10/18 [History Last Taken 12/03/23] latanoprost 0.005 % eye drops 1 drp EACH EYE BID Check with primary doctor 08/17/21 [History Last Taken 12/03/23] aspirin 81 mg tablet,delayed release (Adult Aspirin Regimen) 81 mg PO DAILY #90 tabs 01/21/23 [Rx Last Taken 12/03/23] vitamins A,C,M-jpxi-vwgjrt 4,296 mcg-226 mg-90 mg capsule (PreserVision AREDS) 1cap PO BID 04/17/23 [History Last Taken 12/03/23] metoprolol tartrate 25 mg tablet 25 mg PO BID #180 tabs 05/06/23 [Rx Last Taken 12/03/23] coenzyme Q10 1 cap PO BID 12/03/23 [History Last Taken 12/03/23] netarsudil 0.02 %-latanoprost 0.005 % eye drops (Rocklatan) 1 drp ophthalmic (eye) DAILY 12/03/23 [History Last Taken 12/03/23] Allergy/AdvReac Type Severity Reaction Status Date / Time No Known Allergies Allergy Verified 12/03/23 14:03 Family History Mother Heart disease Father Heart disease CAD (coronary artery disease) COPD (chronic obstructive pulmonary disease) Surgical History History of Achilles tendon repair History of appendectomy History of colonoscopy (2008) History of coronary artery stent placement (02/06/13) History of laparoscopic cholecystectomy History of right inguinal hernia History of tonsillectomy 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 alcohol intake: current alcohol intake frequency: holidays/special occasions only substance use type: does not use ROS ROS ED Constitutional Constitutional ED: Denies chills or fever(s) Eyes Eyes: Denies blurry vision or change in vision ENT ENT ED: Denies rhinorrhea or sore throat Cardiovascular Cardiovascular: Denies chest pain or palpitations Respiratory/Chest Respiratory/Chest: Denies cough or dyspnea Gastrointestinal Gastrointestinal: Denies nausea or vomiting Genitourinary Genitourinary ED: Denies dysuria or hematuria Musculoskeletal Musculoskeletal: Reports back pain and neck pain Integumentary Denies abscess or rash Neurologic Neurologic: Reports headache(s); Denies weakness Allergic/Immunologic Allergic/Immunologic ED: Denies mouth swelling or urticaria EXAM Physical Exam Const Vital Signs: 12/03/23 14:03 12/03/23 14:08 12/03/23 17:53 Temperature 97.7 F L 97.8 F Temperature Source Temporal Pulse Rate 85 65 Respiratory Rate 22 H 20 H Respiratory Effort Short of Breath Respiratory Pattern Tachypnea Blood Pressure 157/96 H 144/94 H Blood Pressure Mean 116 110 Pulse Ox 97 98 Oxygen Delivery Method Room Air Room Air Positive well nourished, well developed and obese General Appearance ED: well developed and NAD Nutritional Appearance: obese HEENT Reports normocephalic Neck Neck Narrative: There is tenderness over the left cervical paraspinal muscles and in the midline. There is no bony crepitance or step-off. Range of motion was limited inall motions of the cervical spine secondary to pain. General: tenderness Resp normal respiratory effort and clear to auscultation bilaterally Cardio regular rate and regular rhythm GI non-tender and non-distended Palpation: soft Neuro oriented x3, CN's II-XII intact bilaterally, moves all extremities, no focal motor deficits and no sensory deficits noted Eliana Coma Scale: document GCS findings Spontaneous Obeys Commands Oriented 15 Sensorium / Orientation: alert Motor Exam: strength 5/5 throughout Psych mental status grossly normal and thought process normal MDM MDM MDM Narrative Medical decision making narrative: Differential diagnosis includes cervical spine fracture, cervical strain, thoracic fracture, rib fracture, post head injury, and intracranial bleeding. CT scan of the brain will be obtained to assess for intracranial bleeding. CT scan of the cervical spine will be obtained to assess for cervical spine fracture. X-rays of the thoracic spine will be obtained to assess for thoracic spine fracture. X-rays of the left ribs will be obtained to assess for rib fracture or pneumothorax. Radiography Diagnostic Testing: Clinical Impression(s) from Imaging Studies Brain CT 12/03/23 14:43 IMPRESSION: Chronic involutional changes of the brain. Electronically Signed: Erwin Miller MD at 15:40 EDT , Cervical Spine CT 12/03/23 14:43 IMPRESSION: Degenerative changes of the cervical spine. Electronically Signed: Ye Bauer DO at 16:54 EDT , Thoracic Spine X-Ray 12/03/23 14:43 IMPRESSION: No fracture or dislocation in the thoracic spine. Moderate degenerative changes. Electronically Signed: Clinton Collier MD at 16:38 EDT , Ribs w/Chest X-Ray 12/03/23 15:55 IMPRESSION: RIBS: No displaced rib fracture identified. CHEST: Clear lungs. Electronically Signed: Clinton Collier MD at 16:39 EDT , CT scan of the brain was obtained. There is no acute intracranial abnormality. There are chronic involutional changes noted. This was interpreted by the radiologist and was also independently reviewed by myself. CT scan of the cervical spine was obtained. There are degenerative changes noted. There is no acute fracture noted. This was interpreted by the radiologist and was also independently reviewed by myself. X-rays of the left ribs were obtained. There are 6 views. On my independent interpretation, there is no acute fracture. There is no acute cardiopulmonary process. Radiologist also interpreted the x-rays and agrees. X-rays of the thoracic spine were obtained. There are 3 views. On my independent interpretation, there is no acute fracture or dislocation. There are some degenerative changes noted. Radiologist also interpreted the x-rays and agrees. Treatment and Re-Evaluation Narrative: Patient was placed in a cervical collar. Patient was given injection of morphine. Patient was advised of his findings. Cervical collar was discontinued. Patient was unable to ambulate due to the pain. Patient was requesting Tylenol. This was ordered. Case was discussed with the hospitalist. She will admit the patient for observation. Patient understood and was agreeable with the plan. All questions were answered. Discharge Plan Triage Chief Complaint: Fall ED Provider: Humza Don Dx/Rx/DC Orders Clinical Impression: Inability to ambulate due to multiple joints, Acute cervical myofascial strain,Closed head injury, Fall Prescriptions: No Action aspirin [Adult Aspirin Regimen] 81 mg tablet,delayed release (DR/EC) 81 mg PO DAILY Qty: 90 3RF PreserVision AREDS 4,296 mcg-226 mg-90 mg capsule 1 cap PO BID cholecalciferol (vitamin D3) 2,000 UNIT tablet,chewable 2,000 unit PO DAILY latanoprost 0.005 % drops 1 drp EACH EYE BID Rocklatan 0.02-0.005 % drops 1 drp ophthalmic (eye) DAILY coenzyme Q10 [Co Q-10] 1 cap PO BID Patient Comments: PT UNAWARE OF STRENGTH, GETS FROM [facility] metoprolol tartrate 25 mg tablet 25 mg PO BID Qty: 180 3RF Primary Care Provider: Jazlyn Zayas Referrals: Jazlyn Zayas DO [Primary Care Provider] - Disposition Disposition: Acute Care Hospital [facility] What to do if you have Problems For any increased pain, shortness of breath, bleeding, nausea or vomiting, chestpain, or any unexpected problems, contact your Primary Care Provider. Call [facility] ([phone]) or report to the closest Emergency Room. Call 911 if necessary. 12/03/232328 <Electronically signed by Humza Don DO> Cosigner Signature (if applicable): CC: Dr. Jazlyn Zayas DO ~ Signed [facility] Work Phone: 1(518) 658-463905-07-2024 History and physical note Author Linda [facility] December 03, 2023 7:29pm Note Date/Time December 03, 2023 5:59pm [facility] Medical Records Department [address] [place] [address] History & Physical Exam 12/03/23 1752 MR#: [id number] Acct: [id number] Name: JESUS ALBERTO GUEVARA JrAnne-Marie Rep #:[id number] : 1940 83 From: Linda Leal MD PCP: Dr. Jazlyn Zayas DO Status:AD [facility] Location: [place] [address]-1 HPI - General General Date of Admission: 12/03/23 Date of Service: 12/03/23 Chief Complaint: mechanical fall HPI Narrative JESUS ALBERTO GUEVARA, is a 83 M with a PMH as outlined who was admitted via the ED on 12/03/2023 with a complaint of mechanical fall. He fell out of his hammock the dayof admission and says he landed on his left side and hit his head. He felt something popped in his neck and upper back. Pain was worsened with movement. Hewas on th floor for about 2 hours before his found him. He admitted to tingling in his LUE also that lasted a few days and then resolved. he denied anyweakness, any loss of consciousness, fever, chills, dizziness, nausea, vomiting or any other systems. Review of systems is otherwise negative. Vitals in the ED were blood pressure 144/94, pulse rate of 65 and respirate rateof 20 with temperature of 97.8 Fahrenheit. He was saturating at 98% on room air. CT of the brain showed chronic involutional changes. CT of the cervical spine cord showed chronic changes degenerative disease acute pathology. Thoracic spine x-ray and chest x-ray showed no evidence of fracture or dislocation in the thoracic spine and no rib fractures also. Patient said he was in too much pain to be able to go home. He has been admitted to be managed for debility due to mechanical fall. [facility] Medical History Atherosclerotic heart disease of [place] coronary artery without angina pectoris CKD (chronic kidney disease) stage 3, GFR 30-59 ml/min COVID-19 (08/14/21) Former smoker Glaucoma History of tapeworm infection Hyperlipidemia Macular degeneration of both eyes Perforation of sigmoid colon due to diverticulitis Prostate cancer TIA (transient ischemic attack) (09/2018) Home Medications cholecalciferol (vitamin D3) 50 mcg (2,000 unit) chewable tablet 2,000 unit PO DAILY SUPPLEMENT 10/10/18 [History Last Taken 12/03/23] latanoprost 0.005 % eye drops 1 drp EACH EYE BID Check with primary doctor 08/17/21 [History Last Taken 12/03/23] aspirin 81 mg tablet,delayed release (Adult Aspirin Regimen) 81 mg PO DAILY #90 tabs 01/21/23 [Rx Last Taken 12/03/23] vitamins A,C,B-nbrb-xngklh 4,296 mcg-226 mg-90 mg capsule (PreserVision AREDS) 1cap PO BID 04/17/23 [History Last Taken 12/03/23] metoprolol tartrate 25 mg tablet 25 mg PO BID #180 tabs 05/06/23 [Rx Last Taken 12/03/23] coenzyme Q10 1 cap PO BID 12/03/23 [History Last Taken 12/03/23] netarsudil 0.02 %-latanoprost 0.005 % eye drops (Rocklatan) 1 drp ophthalmic (eye) DAILY 12/03/23 [History Last Taken 12/03/23] Allergy/AdvReac Type Severity Reaction Status Date / Time No Known Allergies Allergy Verified 12/03/23 14:03 Family History Mother Heart disease Father Heart disease CAD (coronary artery disease) COPD (chronic obstructive pulmonary disease) Surgical History History of Achilles tendon repair History of appendectomy History of colonoscopy (2008) History of coronary artery stent placement (02/06/13) History of laparoscopic cholecystectomy History of right inguinal hernia History of tonsillectomy 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 alcohol intake: current alcohol intake frequency: holidays/special occasions only substance use type: does not use ROS Constitutional Constitutional: Reports malaise and weakness; Denies anorexia, change in weight,chills, fatigue or fever(s) Eyes Eyes: Denies change in vision ENT HEENT: Denies dysphagia or headache(s) Cardiovascular Cardiovascular: Denies chest pain, edema, orthopnea or syncope Respiratory/Chest Respiratory/Chest: Denies cough, shortness of breath at rest or shortness of breath with exertion Gastrointestinal Gastrointestinal: Denies abdominal pain, diarrhea, nausea or vomiting Genitourinary Genitourinary: Denies dysuria Musculoskeletal Musculoskeletal: Reports extremity pain; Denies back pain or joint pain Neurologic Neurologic: Denies confusion, dizziness, focal weakness, headache(s), lack of coordination, numbness or weakness Psychiatric Psychiatric: Denies anxiety or depression Endocrine Endocrinology: Denies change in body appearance Hematologic/Lymphatic Hematologic/Lymphatic: Denies anemia Vital Signs Vital Signs Vital Signs: 12/03/23 14:03 12/03/23 14:08 Temperature 97.7 F L Temperature Source Temporal Pulse Rate 85 Respiratory Rate 22 H Respiratory Effort Short of Breath Respiratory Pattern Tachypnea Blood Pressure 157/96 H Blood Pressure Mean 116 Pulse Ox 97 Oxygen Delivery Method Room Air Room Air Weight Weight: 247 lb 12.793 oz Body Mass Index (BMI) 34.5 Physical Exam Const alert, oriented x3 and no apparent distress General Appearance: cooperative and well developed HEENT normocephalic, head/scalp atraumatic, moist oral mucous membranes and oropharynxnormal Eyes PERRL and EOMs intact bilaterally Neck supple and no JVD Lymph Lymphatic: no lymphadenopathy noted and no lymphedema noted Resp normal respiratory effort, normal air movement and clear to auscultation bilaterally Cardio regular rate, regular rhythm, S1 normal heart sound, S2 normal heart sound and no murmurs GI normal to inspection, nondistended, normoactive bowel sounds, soft to palpation,non-tender and non-distended Extremity normal capillary refill, no clubbing, cyanosis or edema and no calf tenderness General Extremity: no tenderness to palpation of joints or extremities Skin General Skin Exam: no breakdown Neuro CN's II-XII intact bilaterally, no focal motor deficits, no sensory deficits noted and deep tendon reflexes 2+ bilaterally Motor Exam: strength 5/5 throughout and general weakness Psych thought process normal and cooperative Appearance: appropriate Results Imaging Radiology Impression Brain CT 12/03/23 14:43 IMPRESSION: Chronic involutional changes of the brain. Electronically Signed: Erwin Miller MD at 15:40 EDT , Cervical Spine CT 12/03/23 14:43 IMPRESSION: Degenerative changes of the cervical spine. Electronically Signed: Ye Bauer DO at 16:54 EDT , Thoracic Spine X-Ray 12/03/23 14:43 IMPRESSION: No fracture or dislocation in the thoracic spine. Moderate degenerative changes. Electronically Signed: Clinton Collier MD at 16:38 EDT , Ribs w/Chest X-Ray 12/03/23 15:55 IMPRESSION: RIBS: No displaced rib fracture identified. CHEST: Clear lungs. Electronically Signed: Clinton Collier MD at 16:39 EDT , Assessment & Plan Assessment/Plan (1) Fall: PLAN: Plan #Debility due to mechanical fall * admit to med surg * Patient fell out of his hammock and landed on the left side. He hit his head. CT of brain showed no acute intracranial pathology. * CT of the cervical spine showed no evidence of fracture and showed chronic changes. X-ray of the thoracic spine and chest x-ray also showed no evidence of fracture. * Consult PT OT. Fall precautions. * P.o. Tylenol, p.o. oxycodone and IV morphine as needed for pain * #History of CAD s/p CABG: On aspirin. Not on statin unclear why. On metoprolol. #Hypertension: On metoprolol #History of prostate cancer: DVT prophylaxis: SCDs due to recent history of mechanical fall CODE STATUS: full code * Patient counseled extensively about different types of CODE STATUS including full code, DNR CCA and DNR CCA. * Patient elects to be full code. * Total kaiy-ww-qqym time 16 minutes. Charges/Coding Visit Charges Inpatient E&M: 71745 Init Hosp L2 Procedures Hospitalists Procedures: 66415 Advncd Care Plan 30 Min 12/03/231928 <Electronically signed by Linda Leal MD> Cosigner Signature (if applicable): CC: Dr. Jazlyn Zayas DO; Dr. Linda Leal MD~ Signed [facility] Work Phone: 1(651) 296-790005-07-2024 History and physical note Author Linda Leal [facility] December 03, 2023 7:29pm Note Date/Time December 03, 2023 5:59pm [facility] Medical Records Department [address] [place] [address] History & Physical Exam 12/03/23 1752 MR#: [id number] Acct: [id number] Name: JESUS ALBERTO GUEVARA Jr. Rep #:[id number] : 1940 83 From: Linda Leal MD PCP: Dr. Jazlyn Zayas, DO Status:AD M VAISHNAVI Location: MS3 WA070-0 HPI - General General Date of Admission: 12/03/23 Date of Service: 12/03/23 Chief Complaint: mechanical fall HPI Narrative JESUS ALBERTO GUEVARA, is a 83 M with a PMH as outlined who was admitted via the ED on 12/03/2023 with a complaint of mechanical fall. He fell out of his hammock the dayof admission and says he landed on his left side and hit his head. He felt something popped in his neck and upper back. Pain was worsened with movement. Hewas on th floor for about 2 hours before his found him. He admitted to tingling in his LUE also that lasted a few days and then resolved. he denied anyweakness, any loss of consciousness, fever, chills, dizziness, nausea, vomiting or any other systems. Review of systems is otherwise negative. Vitals in the ED were blood pressure 144/94, pulse rate of 65 and respirate rateof 20 with temperature of 97.8 Fahrenheit. He was saturating at 98% on room air. CT of the brain showed chronic involutional changes. CT of the cervical spine cord showed chronic changes degenerative disease acute pathology. Thoracic spine x-ray and chest x-ray showed no evidence of fracture or dislocation in the thoracic spine and no rib fractures also. Patient said he was in too much pain to be able to go home. He has been admitted to be managed for debility due to mechanical fall. [facility] Medical History Atherosclerotic heart disease of [place] coronary artery without angina pectoris CKD (chronic kidney disease) stage 3, GFR 30-59 ml/min COVID-19 (08/14/21) Former smoker Glaucoma History of tapeworm infection Hyperlipidemia Macular degeneration of both eyes Perforation of sigmoid colon due to diverticulitis Prostate cancer TIA (transient ischemic attack) (09/2018) Home Medications cholecalciferol (vitamin D3) 50 mcg (2,000 unit) chewable tablet 2,000 unit PO DAILY SUPPLEMENT 10/10/18 [History Last Taken 12/03/23] latanoprost 0.005 % eye drops 1 drp EACH EYE BID Check with primary doctor 08/17/21 [History Last Taken 12/03/23] aspirin 81 mg tablet,delayed release (Adult Aspirin Regimen) 81 mg PO DAILY #90 tabs 01/21/23 [Rx Last Taken 12/03/23] vitamins A,C,M-vcpu-xqwaij 4,296 mcg-226 mg-90 mg capsule (PreserVision AREDS) 1cap PO BID 04/17/23 [History Last Taken 12/03/23] metoprolol tartrate 25 mg tablet 25 mg PO BID #180 tabs 05/06/23 [Rx Last Taken 12/03/23] coenzyme Q10 1 cap PO BID 12/03/23 [History Last Taken 12/03/23] netarsudil 0.02 %-latanoprost 0.005 % eye drops (Rocklatan) 1 drp ophthalmic (eye) DAILY 12/03/23 [History Last Taken 12/03/23] Allergy/AdvReac Type Severity Reaction Status Date / Time No Known Allergies Allergy Verified 12/03/23 14:03 Family History Mother Heart disease Father Heart disease CAD (coronary artery disease) COPD (chronic obstructive pulmonary disease) Surgical History History of Achilles tendon repair History of appendectomy History of colonoscopy (2008) History of coronary artery stent placement (02/06/13) History of laparoscopic cholecystectomy History of right inguinal hernia History of tonsillectomy 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 alcohol intake: current alcohol intake frequency: holidays/special occasions only substance use type: does not use ROS Constitutional Constitutional: Reports malaise and weakness; Denies anorexia, change in weight,chills, fatigue or fever(s) Eyes Eyes: Denies change in vision ENT HEENT: Denies dysphagia or headache(s) Cardiovascular Cardiovascular: Denies chest pain, edema, orthopnea or syncope Respiratory/Chest Respiratory/Chest: Denies cough, shortness of breath at rest or shortness of breath with exertion Gastrointestinal Gastrointestinal: Denies abdominal pain, diarrhea, nausea or vomiting Genitourinary Genitourinary: Denies dysuria Musculoskeletal Musculoskeletal: Reports extremity pain; Denies back pain or joint pain Neurologic Neurologic: Denies confusion, dizziness, focal weakness, headache(s), lack of coordination, numbness or weakness Psychiatric Psychiatric: Denies anxiety or depression Endocrine Endocrinology: Denies change in body appearance Hematologic/Lymphatic Hematologic/Lymphatic: Denies anemia Vital Signs Vital Signs Vital Signs: 12/03/23 14:03 12/03/23 14:08 Temperature 97.7 F L Temperature Source Temporal Pulse Rate 85 Respiratory Rate 22 H Respiratory Effort Short of Breath Respiratory Pattern Tachypnea Blood Pressure 157/96 H Blood Pressure Mean 116 Pulse Ox 97 Oxygen Delivery Method Room Air Room Air Weight Weight: 247 lb 12.793 oz Body Mass Index (BMI) 34.5 Physical Exam Const alert, oriented x3 and no apparent distress General Appearance: cooperative and well developed HEENT normocephalic, head/scalp atraumatic, moist oral mucous membranes and oropharynxnormal Eyes PERRL and EOMs intact bilaterally Neck supple and no JVD Lymph Lymphatic: no lymphadenopathy noted and no lymphedema noted Resp normal respiratory effort, normal air movement and clear to auscultation bilaterally Cardio regular rate, regular rhythm, S1 normal heart sound, S2 normal heart sound and no murmurs GI normal to inspection, nondistended, normoactive bowel sounds, soft to palpation,non-tender and non-distended Extremity normal capillary refill, no clubbing, cyanosis or edema and no calf tenderness General Extremity: no tenderness to palpation of joints or extremities Skin General Skin Exam: no breakdown Neuro CN's II-XII intact bilaterally, no focal motor deficits, no sensory deficits noted and deep tendon reflexes 2+ bilaterally Motor Exam: strength 5/5 throughout and general weakness Psych thought process normal and cooperative Appearance: appropriate Results Imaging Radiology Impression Brain CT 12/03/23 14:43 IMPRESSION: Chronic involutional changes of the brain. Electronically Signed: Erwin Miller MD at 15:40 EDT , Cervical Spine CT 12/03/23 14:43 IMPRESSION: Degenerative changes of the cervical spine. Electronically Signed: Ye Bauer at 16:54 EDT , Thoracic Spine X-Ray 12/03/23 14:43 IMPRESSION: No fracture or dislocation in the thoracic spine. Moderate degenerative changes. Electronically Signed: Clinton Collier MD at 16:38 EDT , Ribs w/Chest X-Ray 12/03/23 15:55 IMPRESSION: RIBS: No displaced rib fracture identified. CHEST: Clear lungs. Electronically Signed: Clinton Collier MD at 16:39 EDT , Assessment & Plan Assessment/Plan (1) Fall: PLAN: Plan #Debility due to mechanical fall * admit to med surg * Patient fell out of his hammock and landed on the left side. He hit his head. CT of brain showed no acute intracranial pathology. * CT of the cervical spine showed no evidence of fracture and showed chronic changes. X-ray of the thoracic spine and chest x-ray also showed no evidence of fracture. * Consult PT OT. Fall precautions. * P.o. Tylenol, p.o. oxycodone and IV morphine as needed for pain * #History of CAD s/p CABG: On aspirin. Not on statin unclear why. On metoprolol. #Hypertension: On metoprolol #History of prostate cancer: DVT prophylaxis: SCDs due to recent history of mechanical fall CODE STATUS: full code * Patient counseled extensively about different types of CODE STATUS including full code, DNR CCA and DNR CCA. * Patient elects to be full code. * Total aobk-gr-ewkn time 16 minutes. Charges/Coding Visit Charges Inpatient E&M: 08432 Init Hosp L2 Procedures Hospitalists Procedures: 54697 Advncd Care Plan 30 Min 12/03/231928 <Electronically signed by Linda Leal MD> Cosigner Signature (if applicable): CC: Dr. Jazlyn Zayas DO; Dr. Linda Leal MD~ Signed [facility] Work Phone: 1(801) 253-791006-28-2023 History of Present illness Narrative* Phillip Jo, DIE SINKER APPRENTICE - EXPERIMENTAL WELDER - 01/23/2023 2:00 PM EDT Images from the original note were not included. [facility] Group: [place] [employer] [place] [address] [facility] [address] Dept: [phone] Dept Loc: [phone] Visit type: Established patient - Virtual Reason for Visit: Post-op Surgery/Procedure: 12/20/22: CABGx4 (MATTSON to LAD, rsvg to diag1, rsvg to OM1, rsvg to pda) left lower leg EVH to med thigh, CLYDE with Dr. Nickerson Assessment and Plan: 1. S/P CABG (coronary artery bypass graft) S/p CABGx4 (MATTSON to LAD, rsvg to diag1, rsvg to OM1, rsvg to pda) left lower leg EVH to med thigh, CLYDE with Dr. Nickerson POD# 34 Day from Discharge (12/25/22) #29 -Reviewed current meds Continue as ordered - ASA, statin, BB -Surgical Incisions: Per patient healing appropriately, well approximated, no s/s of infection -Physical therapy as outlined in discharge instructions: Cardiac Rehab [place] starts Saturday; but leaning towards not doing it; ok to drive -Acute Post-Operative Pain Tx plan: OTC as able -Weight restriction measures 5-8 weeks from date of surgery- 20lbs weight restriction: 02/14/23 9-12 weeks from date of surgery-30lbs weight restriction approximate end date: 03/14/23 Disposition: as needed Patient verbalized understanding of plan and stated they would call if any questions or concerns arise. Treatment Team: PCP: JAZLYN ZAYAS DO Cardiology: Dr. Khan Patient was seen today via Telehealth by agreement and consent. I used the following Telehealth technology: Audio capability only. Total Length of call 12 minutes. The patient was offered and advisedvideo for a more comprehensive evaluation, but the patient declined or was unable to use video. This patient encounter is appropriate and reasonable under the circumstances given the patient's particular presentation at this time. The patient has been advised of the potential risks and limitations of this mode of treatment (including but not limited to the absence of in-person examination) and has agreed to be treated in a remote fashion in spite of them. Any and all of the patient's/patient's f amily's questions on this issue have been answered and I have made no promises or guarantees to thepatient. The patient has also been advised to contact this office for worsening conditions or problems, and seek emergency medical treatment and/or call 911 if the patient deems either necessary. Thepatient stated that they are currently in the [facility]. If the patient is a minor, permission has been obtained by the parent or guardian for the patient to receive medical care at this visit. Patient identification was verified at the start of the visit: yes Total time spent on this encounter: 17 Subjective: HPI: 82 y.o. male who underwent CABGx4 with Dr. Nickerson on 12/20/22.Post operative course uncomplicated and he was discharged home with home health on 12/25/22. POD#5. Did have episode of POAF - receiving amio load. 01/02/23: Initial inperson post op visit following discharge. MSI drsg removed; Incisions healing appropriately with no signs or symptoms of infection. Sternal precautions discussed/reviewed. Pain controlled with PRNs. Medications reviewed and patient non-compliant. Educated on the importance of taking medications as prescribed, patient and verbalized understanding. Patient to start taking medication as prescribed he takes some at times but states that he does not like to be on a lot of medications. Per patient he is sleeping more than normal agreed stated that he would take frequent naps throughout the day and is short of breath with ambulation. Lung sounds diminished negative weight gain we will check chest x-ray. Patient is eager to start cardiac rehab also referral to [facility]. Discussed possible postop depression patient denies but will reach out if any issues or concern. Pain controlled but admits to not taking tramadol and letting the pain get out ofcontrol. We discussed pain treatment plan and patient agreeable. 01/23/23: Postoperatively called today for virtual visit. Recently saw cardiology who stopped amiodarone per patient nausea upset stomach resolved. Patient did not go get chest x-ray ordered from previously does not want to get now. He denies any shortness of breath currently. 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 Reviewed medications reordered prescriptions for Protonix Crestor and metoprolol. Patient to discuss with PCP weaning off Protonix. compensation and benefits manager during visit all questions answered no other needs at this time. Review of Systems Constitutional: Negative for diaphoresis, fatigue and fever. Respiratory: Negative for cough, shortness of breath and wheezing. Cardiovascular: Negative for chest pain, palpitations and leg swelling. Gastrointestinal: Negative for abdominal distention, constipation and diarrhea. Skin: Negative for color change, pallor and rash. Objective: Patient reported: none Wt Readings from Last 3 Encounters: 01/02/23 223 lb (101 kg) 12/25/22 221 lb 11.2 oz (101 kg) Physical exam deferred due to virtual visit-with audio (telephone) capabilities only Data Reviewed and Summarized: Labs/Imaging/Testing: reviewed EMR, see A&P for pertinent diagnostic results related to office visit NARAYAN Young CNP Disclaimer INFORMED CONSENT:The nature and purpose of the proposed treatment or procedure have been discussed.The risks and benefits of the proposed treatment or procedures have been reviewed. Alternatives have been reviewed in addition to the risks and benefits of not receiving treatments or undergoing procedures. Pursuant to this discussion, the patient agrees to undergo the proposed treatment or procedure. Captured images seen in this note from are not a substitute for a comprehensive interpretation of the entire data set as reflected by the interpreting physician with regard to radiology, echocardiography, and other diagnostic images. This note may have been dictated using [employer] Practice Edition 2.6 and/or [employer] Voice Recognition Feature. The document was proofread, however unrecognized voice recognition infection prevention specialist errors may be present. documented in this [facility]06-15-2023 Telephone encounter Note* Telephone Encounter - NARAYAN Monroy CNP - 01/10/2023 12:40 PM EDT Multiple phone calls to the patient to check on him with no response - Please notify me if he returns my call. ttwick Phone: 1(573) 109-144006-15-2023 Miscellaneous Notes* Telephone Encounter - NARAYAN Monroy CNP - 01/10/2023 12:40 PM EDT Multiple phone calls to the patient to check on him with no response - Please notify me if he returns my call. * Telephone Encounter - NARAYAN Young CNP - 01/06/2023 2:46 PM EDT Returned call: Decrease amiodarone to 200mg daily - may be contributing to nausea? Patient stated he has tried multiple agents we discussed a plan and he is going to try. Encouraged increase fluid intake along with activity Hold any opioid (he stated he stopped taking) Patient to try prune juice and also take a suppository up to BID Told him if he continues to have problems and/or starts having pain he needs to go to ed to be evaluated. He verbalized understanding. * Telephone Encounter - Luly Doran - 01/06/2023 2:32 PM EDT Name of caller requesting page:Jesus Alberto Phone Number of caller: [phone] Facility requesting page: n/a Reason for Page: Nausea and no bowel movement Provider paged: Phillip Jo Practice Name of paged provider: Cardiothoracic Surgery Time Page was sent or provider contacted: 2:32 pm Page Content: Patient Jesus Alberto Guevara NANO 42 is requesting a call back for the math tutor physicianregarding nausea and no bowel movement for 4 days at at [phone] * Telephone Encounter - Amelie Cox RN - 12/30/2022 12:33 PM EDT S: Pt calling [facility] post op with c/o nausea. B: Pt had CABG by Dr. Nickerson on 12/20/22. A: Pt c/o constant nausea. R: Dr. Consuelo Bonner paged via Secure Chat at 1207 and at 1225. Shayan Emerson CNM paged at 1305 and notified of pt's call. documented in this encounterSOhioHealth [facility]ville Health [id number] Telephone encounter Note* Telephone Encounter - NARAYAN Young CNP - 01/06/2023 2:46 PM EDT Returned call: Decrease amiodarone to 200mg daily - may be contributing to nausea? Patient stated he has tried multiple agents we discussed a plan and he is going to try. Encouraged increase fluid intake along with activity Hold any opioid (he stated he stopped taking) Patient to try prune juice and also take a suppository up to BID Told him if he continues to have problems and/or starts having pain he needs to go to ed to be evaluated. He verbalized understanding. [facility] [id number] Telephone encounter Note* Telephone Encounter - Luly Doran - 01/06/2023 2:32 PM EDT Name of caller requesting page:Jesus Alberto Phone Number of caller: [phone] Facility requesting page: n/a Reason for Page: Nausea and no bowel movement Provider paged: Phillip Jo Practice Name of paged provider: Cardiothoracic Surgery Time Page was sent or provider contacted: 2:32 pm Page Content: Patient Jesus Alberto Guevara NANO 42 is requesting a call back for the math tutor physicianregarding nausea and no bowel movement for 4 days at at [phone] [facility] [id number] History of Present illness Narrative* Phillip Jo, NARAYAN - YANET - 01/02/2023 11:30 AM EDT Images from the original note were not included. [facility] Medical Group: [facility] [place] [address] [facility] [address] Dept: [phone] Dept Loc: [phone] Visit type: Established patient - in person Reason for Visit: Post-op Surgery/Procedure: CABGx4 with Dr. Nickerson on 12/20/22 Assessment and Plan: 1. S/P CABG (coronary artery bypass graft) - [facility] Cardiac/Pulmonary Rehab - XR chest 2 views POD#13 Day from Discharge (12/25/22) #8 -Reviewed current meds Continue as ordered - ASA, statin, BB Medication went over - patient noncompliant with medications Nystatin - ordered by PCP patient to start taking for sore throat Patient with hx of GERD--- not taking protonix; encouraged patient to start If continues with hoarse voice, nausea, trouble swallowing needs follow up with PCP Griselda for nausea SOB - check CXR patient to get at [place] -Surgical Incisions: healing appropriately, well approximated, no s/s of infection -Physical therapy as outlined in discharge instructions: Ok to attend Cardiac Rehab referral sent to [facility] -Acute Post-Operative Pain Tx plan: Continue to use narcotic/opioid analgesic medication, Over The Counter-Tylenol (acetaminophen) 500 mg 1-2 tablets every 6 hours. No more than 4,000 mg in 24 hour period, and Over The Counter-Motrin (ibuprofen) 200-400 mg by mouth every 4-6 hours (or) 600-800mg every 8 hours. No more than 3,200 mg per day Weight restriction measures 1-4 weeks from date of surgery- 10lbs weight restriction: 01/17/23 5-8 weeks from date of surgery- 20lbs weight restriction: 02/14/23 9-12 weeks from date of surgery-30lbs weight restriction approximate end date: 03/14/23 Disposition: follow up Three weeks virtual with [facility] Patient verbalized understanding of plan and stated they would call if any questions or concerns arise. Treatment Team: PCP: JAZLYN ZAYAS DO Cardiology: Dr. Khan Subjective: HPI: 82 y.o. male who underwent CABGx4 with Dr. Nickerson on 12/20/22.Post operative course uncomplicated and he was discharged home with home health on 12/25/22. POD#5. Did have episode of POAF - receiving amio load. 01/02/23: Initial inperson post op visit following discharge. MSI drsg removed; Incisions healing appropriately with no signs or symptoms of infection. Sternal precautions discussed/reviewed. Pain controlled with PRNs. Medications reviewed and patient non-compliant. Educated on the importance of taking medications as prescribed, patient and verbalized understanding. Patient to start taking medication as prescribed he takes some at times but states that he does not like to be on a lot of medications. Per patient he is sleeping more than normal agreed stated that he would take frequent naps throughout the day and is short of breath with ambulation. Lung sounds diminished negative weight gain we will check chest x-ray. Patient is eager to start cardiac rehab also referral to [facility]. Discussed possible postop depression patient denies but will reach out if any issues or concern. Pain controlled but admits to not taking tramadol and letting the pain get out ofcontrol. We discussed pain treatment plan and patient agreeable. Review of Systems Constitutional: Positive for activity change and fatigue. Negative for diaphoresis and fever. Respiratory: Positive for shortness of breath. Negative for cough and wheezing. Cardiovascular: Negative for chest pain, palpitations and leg swelling. Gastrointestinal: Positive for nausea. Negative for abdominal distention, constipation and diarrhea. Skin: Negative for color change, pallor and rash. Objective: Vitals: 01/02/23 1201 BP: 113/78 Pulse: 58 Wt Readings from Last 3 Encounters: 01/02/23 223 lb (101 kg) 12/25/22 221 lb 11.2 oz (101 kg) Physical Exam Cardiovascular: Rate and Rhythm: Normal rate and regular rhythm. Heart sounds: Normal heart sounds. Pulmonary: Effort: Pulmonary effort is normal. Breath sounds: Normal breath sounds. Abdominal: General: Bowel sounds are normal. Palpations: Abdomen is soft. There is no mass. Tenderness: There is no abdominal tenderness. Hernia: No hernia is present. Skin: General: Skin is warm and dry. Comments: Surgical Incisions: well approximate; clean dry with no drainage noted. Surrounding skin no redness, warmth, or signs of infection noted. Neurological: Mental Status: He is alert and oriented to person, place, and time. Data Reviewed and Summarized: Labs/Imaging/Testing: reviewed EMR, see A&P for pertinent diagnostic results related to office visit NARAYAN Young CNP Disclaimer INFORMED CONSENT:The nature and purpose of the proposed treatment or procedure have been discussed.The risks and benefits of the proposed treatment or procedures have been reviewed. Alternatives have been reviewed in addition to the risks and benefits of not receiving treatments or undergoing procedures. Pursuant to this discussion, the patient agrees to undergo the proposed treatment or procedure. Captured images seen in this note from are not a substitute for a comprehensive interpretation of the entire data set as reflected by the interpreting physician with regard to radiology, echocardiography, and other diagnostic images. This note may have been dictated using [employer] Edition 2.6 and/or [employer] Voice Recognition Feature. The document was proofread, however unrecognized voice recognition infection prevention specialist errors may be present. documented in this encounterSOhioHealth Nelsonville Health [id number] Telephone encounter Note* Telephone Encounter - Amelie Cox RN - 12/30/2022 12:33 PM EDT S: Pt calling CAC post op with c/o nausea. B: Pt had CABG by Dr. Nickerson on 12/20/22. A: Pt c/o constant nausea. R: Dr. Consuelo Bonner paged via Secure Chat at [phone] and at [phone]. Shayan Emerson CNM paged at 1305 and notified of pt's call. [facility] [id number] Note* Care Coordination - Angelia Frausto RN - 12/25/2022 1:17 PM EDT Spoke with patient at bedside, [facility] set uo, no further discharge needs expressed. [facility] [id number] Note* Care Coordination - Angelia Frausto RN - 12/25/2022 1:17 PM EDT Spoke with patient at bedside, [facility] set uo, no further discharge needs expressed. [facility] [id number] Miscellaneous Notes* Care Coordination - Angelia Frausto RN - 12/25/2022 1:17 PM EDT Spoke with patient at bedside, [facility] set uo, no further discharge needs expressed. * Care Coordination - Unknown Case Management - 12/25/2022 12:19 PM EDT Patient Choice Patient Name: JESUS ALBERTO GUEVARA Date of : 1940 All Providers Sent Referral Name: [facility] Phone: [phone] Address: [facility] [place] [address] Name: [facility] Address: [address] [place] [address] [place] [address] Name: [facility] Address: [address], [address] [place] [address] Name: [facility] Address: [address] [place] [address] * Home Care - Elaine Madrigal RN - 12/25/2022 12:10 PM EDT Start PACC Note Home Health Referral Educated patient on Home Care and services available. Patient offered choice of available HHC and agreeable to RN PT services with [facility] - [facility] Care. Care Types: [facility] SCRIP Program Isolation Precautions: No active isolations Social Determinates of Health: Tobacco Use: Not on file Social History Substance and Sexual Activity Alcohol Use None Social History Substance and Sexual Activity Drug Use Not on file Does the patient have any financial resource strain? No Does the patient have any food insecurities? No Does the patient have any housing instabilities? No If any of the above is noted as yes - consider a COOK CHILI evaluation once the patient returns home. START PATIENT REGISTRATION INFORMATION Order Information Order Signing Physician: Humza Nickerson MD Service Ordered RN ?: Yes Service Ordered PT ?: Yes Service Ordered OT ?: No Service Ordered ST ?: No Service Ordered COOK CHILI?:No Service Ordered PROPERTY FIELD ADJUSTER?: No Following Physician: Dr Humza Nickerson Following Physician Overseeing Physician: Dr Humza Nickerson (Required for Residents only) Agreeable to Follow? Yes Date/Time of Call 12/25/22 12:10 PM Care Coordination Same Day SOC?: No Primary Care Physician: JAZLYN ZAYAS DO Primary Care Physician Primary Care Physician Address: [address] [place] [address] [address] / [facility] [id number] Visit Instructions: N/A Service Discharge Location Type: Home with Home Health Care Service Facility Name: N/A Service Floor Facility: N/A Service Room No: N/A Demographics Patient Last Name: Paola Patient First Name: Jesus Alberto Language/Communication Barrier: n/a Service Address: [address] [place] [address] Service City: [facility] ST: [place] Service ZIP: [address] Service (home) Other phone numbers: [phone] Emergency Contact: Extended Emergency Contact Information Primary Emergency Contact: Ruth Guevara Relation: Spouse Preferred language: Mauritian Claims Adjustor needed? 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 Do you have any upper respiratory symptoms (cough, SOB, Fever)? No 2. Have you been exposed to anyone with COVID-19 Virus? No Answer only if pending or positive for COVID-19? 1. Agreeable to wear PPE at each visit? N/a 2. Is the hospital supplying them with PPE upon Discharge? N/a Start PACC Summary General Report/ Additional Comments N/a Discharge Date: 12/25/22 Referral Source-PACC: (Hospital/Unit): [facility] / T1-111/T1111 A End PACC Note * Care Plan - Eugenia Ly RN - 12/24/2022 2:24 PM EDT The patient is Moderately Stable - Low risk of patient condition declining or worsening The patient's goals for the shift include patient will feel rested The clinical goals for the shift include Goal met * Rapid Response Note - Amaya Meredith RN - 12/23/2022 5:43 AM EDT Called to see for IV infiltration. Left forarm IV intact, slight swelling noted above IV site, areais soft, non tender, non blanching, no temperature change, strong distal pulses noted. RN states Tylenol infusion and calcium. Grade 2. RN notified to elevate and place warm compress. IV removed , catheter intact. Patient in NAD. . * Significant Event - Bib Jay RCP - 12/20/2022 2:58 PM EDT TC trial started HR 85, BP 103/53, spo2 92%, f/vt 38 15 mins : HR 85, spo2 93%, tv 317, RR 27, BP 116/62, f/vt 48 30 mins HR 84, RR 17, TV 486, spo2 90%, f/vt 41, BP 128/63 Dr. Nickerson notified * Care Coordination - Angelia Frausto RN - 12/19/2022 1:20 PM EDT Care Managment Initial Assessment Date: 12/19/2022 Patient Name: Jesus Alberto Guevara Jr. : 1940 Patient Information Source of Information: Patient Cognition/Language: WFL - Within Functional Limits Permission given to speak with patient sales and marketing representative/caregiver as indicated: Yes Confirmation of Payer with patient/family: Yes Payer Name: [place] Medicare [place]: No Confirmation of Primary Care Physician: Confirmed PCP Name: Dr. Zayas Seen in last 2 years?: Yes Primary Caregiver: Self If assistance needed, confirmed caregiver ready, willing and able to care for patient at discharge: Confirmed with: Living Arrangements Current Residence: Private Residence (renovated barn) Number of Floors 3 Number of Entry Steps: Bed/Bath Levels: Both first floor Facility: Facility Name: Plan to Return: Lives with: Spouse/significant other Support Systems: Spouse/significant other Activities of Daily Living Ambulation: Independent Bathing/Dressing: Independent Elimination/Continence/Toileting: Independent Feeding: Independent Who Assists with Activities of Daily Living: Instrumental Activities of Daily Living Prescription Coverage: Yes Pharmacy Used: [facility] Medication Management: Independent Transportation/Shopping: Independent Transportation Mode: Car Needs Assistance with Transportation at Discharge: No Meal Preparation: Independent Laundry/Cleaning: Independent Finances/Bill Paying: Independent Communication: Independent Types of Care Services/Equipment Utilized Care Services: Dialysis Type: Durable Medical Equipment: (has some DME if needed) Patient's Goal/Discharge Plan Patient expects to be discharged to: home Discharge Planning Actions: Continue to follow Patient's Choice Rights and [employer] and Collaborative Relationships Disclosed as Indicated for Post-Acute Care: Interdisciplinary Team Engagement: PT/OT, Home Health Care Social Work Referral for: Additional Information: Patient admitted to [facility] multivessel CAD. CTS planning surgery tomorrow. Spoke with patient at bedside, introduced self and role. Patient from home with , is independent, will have a ride home and requested MONTOYA to follow for home care needs post operatively. Angelia Frausto RN * Care Plan - Phillip Seymour RN - 12/19/2022 9:04 AM EDT The patient is Moderately Stable - Low risk of patient condition declining or worsening The patient's goals for the shift include The clinical goals for the shift include Problem: Safety Goal: Patient will be injury free during hospitalization Outcome: Progressing Goal: I will remain free of falls Outcome: Progressing documented in this encounterSOhioHealth Nelsonville Health [id number] Note* Care Coordination - Unknown Case Management - 12/25/2022 12:19 PM EDT Patient Choice Patient Name: JESUS ALBERTO GUEVARA Date of : 1940 All Providers Sent [facility] Phone: [phone] Address: [address] [place] [address] Name: [facility] Address: [address] [place] [address] [place] [address] Name: [facility] Address: [address], [address] [place] [address] Name: [facility] Address: [address] [place] [address] [address] [place] [address] [facility] [id number] Note* Care Coordination - Unknown Case Management - 12/25/2022 12:19 PM EDT Patient Choice Patient Name: JESUS ALBERTO GUEVARA Date of : 1940 All Providers Sent Referral Name: [facility] Phone: [phone] Address: [address] [place] [address] [facility] Address: [address] [place] [address] Name: [facility] Address: [address] [place] [address] [facility] Address: [address] [place] [address] [facility] [id number] Note* Home Care - Elaine Madrigal RN - 12/25/2022 12:10 PM EDT Start PACC Note Home Health Referral Educated patient on Home Care and services available. Patient offered choice of available HHC and agreeable to RN PT services [facility]. Care Types: [facility] SCRIP Program Isolation Precautions: No active isolations Social Determinates of Health: Tobacco Use: Not on file Social History Substance and Sexual Activity Alcohol Use None Social History Substance and Sexual Activity Drug Use Not on file Does the patient have any financial resource strain? No Does the patient have any food insecurities? No Does the patient have any housing instabilities? No If any of the above is noted as yes - consider a COOK CHILI evaluation once the patient returns home. START PATIENT REGISTRATION INFORMATION Order Information Order Signing Physician: Humza Nickerson MD Service Ordered RN ?: Yes Service Ordered PT ?: Yes Service Ordered OT ?: No Service Ordered ST ?: No Service Ordered COOK CHILI?:No Service Ordered PROPERTY FIELD ADJUSTER?: No Following Physician: Dr Humza Nickerson Following Physician Overseeing Physician: Dr Humza Nickerson (Required for Residents only) Agreeable to Follow? Yes Date/Time of Call 12/25/22 12:10 PM Care Coordination Same Day SOC?: No Primary Care Physician: JAZLYN ZAYAS, Primary Care Physician Primary Care Physician Address: [address] [place] [address] [address] [facility] [address] Visit Instructions: N/A Service Discharge Location Type: Home with Home Health Care Service Facility Name: N/A Service Floor Facility: N/A Service Room No: N/A Demographics Patient Last Name: Paola Patient First Name: Jesus Alberto Language/Communication Barrier: n/a Service Address: [address] [place] [address] City: [facility] ST: [place] Service ZIP: [address] Service (home) Other phone numbers: [phone] Emergency Contact: Extended Emergency Contact Information Primary Emergency Contact: Ruth Guevara Relation: Spouse Preferred language: Mauritian Claims Adjustor needed? 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 Do you have any upper respiratory symptoms (cough, SOB, Fever)? No 2. Have you been exposed to anyone with COVID-19 Virus? No Answer only if pending or positive for COVID-19? 1. Agreeable to wear PPE at each visit? N/a 2. Is the hospital supplying them with PPE upon Discharge? N/a Start PACC Summary General Report/ Additional Comments N/a Discharge Date: 12/25/22 Referral Source-PACC: (Hospital/Unit): [facility] / T1-111/T1-111 A End PACC Note [facility] [id number] Note* Home Care - Elaine Madrigal RN - 12/25/2022 12:10 PM EDT Start PACC Note Home Health Referral Educated patient on Home Care and services available. Patient offered choice of available HHC and agreeable to RN PT services with [facility]. Care Types: [facility] SCRIP Program Isolation Precautions: No active isolations Social Determinates of Health: Tobacco Use: Not on file Social History Substance and Sexual Activity Alcohol Use None Social History Substance and Sexual Activity Drug Use Not on file Does the patient have any financial resource strain? No Does the patient have any food insecurities? No Does the patient have any housing instabilities? No If any of the above is noted as yes - consider a COOK CHILI evaluation once the patient returns home. START PATIENT REGISTRATION INFORMATION Order Information Order Signing Physician: Humza Nickerson MD Service Ordered RN ?: Yes Service Ordered PT ?: Yes Service Ordered OT ?: No Service Ordered ST ?: No Service Ordered COOK CHILI?:No Service Ordered PROPERTY FIELD ADJUSTER?: No Following Physician: Dr Humza Nickerson Following Physician Overseeing Physician: Dr Humza Nickerson (Required for Residents only) Agreeable to Follow? Yes Date/Time of Call 12/25/22 12:10 PM Care Coordination Same Day SOC?: No Primary Care Physician: JAZLYN ZAYAS DO Primary Care Physician Primary Care Physician Address: [address] [place] [address] [address] [facility] [address] Visit Instructions: N/A Service Discharge Location Type: Home with Home Health Care Service Facility Name: N/A Service Floor Facility: N/A Service Room No: N/A Demographics Patient Last Name: Paola Patient First Name: Jesus Alberto Language/Communication Barrier: n/a Service Address: [address] [place] [address] City: [facility] ST: [place] Service ZIP: [phone] Service (home) Other phone numbers: [phone] Emergency Contact: Extended Emergency Contact Information Primary Emergency Contact: Ruth Guevara Relation: Spouse Preferred language: Mauritian Claims Adjustor needed? 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 Do you have any upper respiratory symptoms (cough, SOB, Fever)? No 2. Have you been exposed to anyone with COVID-19 Virus? No Answer only if pending or positive for COVID-19? 1. Agreeable to wear PPE at each visit? N/a 2. Is the hospital supplying them with PPE upon Discharge? N/a Start PACC Summary General Report/ Additional Comments N/a Discharge Date: 12/25/22 Referral Source-PACC: (Hospital/Unit): [facility] / T1-111/T1111 A End PACC Note [employer] [id number] History of Present illness Narrative* Tommie Armenta MD - 12/25/2022 11:59 AM EDT Nephrology Progress Note Following for KASSANDRA on CKD. He denies CP, SOB or nausea. Current Inpatient Medications: Reviewed on SEP. Vitals: BP 121/76 (BP Location: Left arm, Patient Position: Lying) Pulse 68 Temp 36.8 C (98.2 F) (Temporal) Resp 18 Ht 1.803 m (5' 11) Wt 101 kg (221 lb 11.2 oz) SpO2 96% PF 55 L/min BMI 30.92 kg/m BLOOD PRESSURE RANGE: Systolic (24hrs), Av , Min:119 , Max:137 ; Diastolic (24hrs), Av, Min:67, Max:78 24HR INTAKE/OUTPUT: Intake/Output Summary (Last 24 hours) at 12/25/2022 1159 Last data filed at 12/25/2022 1000 Gross per 24 hour Intake 965.95 ml Output 1250 ml Net -284.05 ml Physical exam: General: NAD, alert Chest: bilateral vesicular breath sounds Cardiac: S1, S2 Abdomen: soft SKIN: dry Extremities: no lower extremity edema Data: Labs: Recent Labs 12/23/22 0012 12/24/22 0000 12/25/22 0041 WBC 11.3* 10.3 8.0 HGB 11.1* 11.3* 11.9* HCT 33.4* 33.1* 35.1* MCV 87.9 86.5 87.1 PLT 133* 171 166 Recent Labs 12/23/22 0012 12/24/22 0000 12/25/22 0041 NA 134* 134* 134* K 4.0 3.8 3.4* CL 103 102 102 CO2 27 30 28 GLUCOSE 119* 121* 157* CALCIUM 7.9* 7.9* 7.8* MG 2.2 2.4* 2.3 BUN 25* 32* 36* CREATININE 1.49* 1.47* 1.55* Assessment: Jesus Alberto Guevara Jr. is a 82 y.o. male with PMH including HTN, HLD, TIA, who presented from [facility] on 12/18/2022 due to positive stress test with inferior WMA, EKG changes. The patient is status post LHC done which showed MVCAD. He is status post CABG. On 12/18/2022 nephrology consulted for KASSANDRA on CKD. KASSANDRA on CKD- stage 3a. -Baseline serum creatinine appears to be around 1.30 mg/dL. -Serum creatinine increased to 1.57 mg/dL on 12/21/2022. -Creatinine has fluctuated after CABG as expected but is still stable at 1.55 mg/dL today -The patient is nonoliguric. Okay to continue furosemide from nephrology standpoint. HTN- BP stable on metoprolol and diuretic. Volume-chest x-ray does not show significant pulmonary edema/pleural effusion. However, he has beenon IV furosemide. -Okay to continue IV furosemide with monitoring of renal function. Acid/base-improved. The patient had serum bicarbonate level of 18 mmol/L on 12/21/2022. Serum bicarbonate level is better today Hyponatremia-monitor for now, the patient is only mildly hyponatremic without worrisome symptoms. Plan: -Renal function has been relatively stable with expected fluctuation after CABG. -There is no need for kidney replacement therapy. -Continue current medical treatment. Okay from nephrology standpoint dch on torsemide 20 mg per day -We will continue to monitor renal function, acid-base status, and electrolytes. Tommie Armenta MD * Mia Du RRT - 12/25/2022 10:56 AM EDT [facility] Respiratory Care Department Home O2 Progress Note Any of the following criteria met: Ambulation home O2 testing SpO2 at rest on RA = 96 HR at rest = 68 SpO2 with ambulation on RA = 93 Peak HR = 82 Distance Walked (ft)= >50FT Patient meets criteria for home O2 Y/N = no Patient mobile at home Y/N = yes * Kelsey YorkAnne-Marie Cooper, TREASURY MANAGEMENT SALES CONSULTANT - 12/25/2022 9:44 AM EDT Physical Therapy Facility/Department: [facility] Daily Treatment Note NAME: Jesus Alberto Guevara : 1940 Date of Service: 12/25/2022 Discharge Recommendations: Home with assist PRN PT Equipment Recommendations Equipment Needed: No Other: tbd Assessment Requires PT Follow-Up: Yes Assessment: Pt has progressed towards all goals and has been ambulating around unit without a device. No LOB or SOB noted. Pt is safe for homegoing, does not need a device for gait. Encouraged P&C ex's 2x/day and I.S. Reviewed sternal precautions and that those precautions are for 6 weeks. Contacted PT for updated recommendation of home with assist prn. Performance Deficits/Impairments: Decreased functional mobility , Decreased endurance, Decreased ADL status, Decreased strength, Decreased ROM Treatment Diagnosis: limited endurance Decision Making: Medium Complexity Barriers to Learning: none Patient Diagnosis(es): The encounter diagnosis was CAD in tonkawa artery. has no past medical history on file. has no past surgical history on file. Restrictions Restrictions/Precautions Restrictions/Precautions: General Precautions, Surgical Protocols, Fall Risk Required Braces or Orthoses?: No Position Activity Restriction Sternal Precautions: No Pushing, No Pulling, 10# Lifting Restrictions Sternal Precautions: YES- needs cues when sitting in chair Other position/activity restrictions: tele Subjective General Chart Reviewed: Yes Patient Assessed for Rehabilitation Services: Yes Response To Previous Treatment: Patient with no complaints from previous session. Family / Caregiver Present: No Diagnosis: CAD, s/p CABG Follows Commands: Within Functional Limits Subjective Subjective: Pt standing in room. Agreeable to PT. No c/o pain. RN helped pt don a 2nd gown as a robe. Patient Stated Goal: to move with less pain Cognition/Orientation Overall Cognitive Status: WFL Overall Orientation Status: Within Functional Limits Objective Bed mobility Sit to Supine: Supervision Comment: discussed how can help pt out of bed by assisting around the shoulers to help sit himup. Transfers Sit to Stand: Supervision Stand to sit: Supervision Comment: several cues for sternal precautions. pt adjusted position in recliner several times during session. Ambulation Ambulation: Yes Ambulation 1 Surface 1: Level tile Device 1: No device Assistance 1: Standby assistance Quality of Gait 1: reciprocal stepping, No LOB Distance (ft) 1: 60 ft, ~160ft Comments 1: ambulation cut short due to pt having to use the bathroom. Stairs Rails 1: Left Device 1: No device Additional Factors: Reciprocal going down, Reciprocal going up Assistance 1: Standby assistance Number of Steps 1: flight Balance Comments: pt was independent with toileting mid session. Exercises Comments: Issued P&C ex booklet, pt performed #1-9 x 3-10 reps each, each exercise varied in how many reps (#1-3 x 10 reps, #4-6 x 5 reps, #7-9 x 3 reps) Discussed walking program and showed where it is in the booklet. I.S. x reps ~1500mL Plan Times per Week: 5-7 Plan Weeks: 3 Current Treatment Recommendations: Strengthening, ROM, Balance Training, Functional Mobility Training, Transfer Training, ADL/Self-care Training, Stair training, Gait Training, Endurance Training, Equipment Evaluation, Education, & procurement, Safety Education & Training, Patient/CaregiverEducation & Training Safety Safety Devices Safety Devices in Place: Yes Type of Devices: Left in bed, All fall risk precautions in place, Call light within reach Restraints Restraints Initially in Place: No AM-PAC Score AM-PAC Inpatient Mobility Raw Score: 19 Mobility Inpatient CMS G-Code Modifier: CK Goals Encounter Problems Encounter Problems (Active) Cardiac Patient will perform bed mobility with independence in order to improve independence and prepare for out of bed mobility. (Progressing) Start: 12/21/22 Expected End: 01/11/23 Patient will complete sit to stand transfer with independence to LRD in order to improve safety andprepare for out of bed mobility. (Progressing) Start: 12/21/22 Expected End: 01/11/23 Patient will ambulate 300 feet or ambulate 5 minutes with independence with RPE of 14 or lower. (Progressing) Start: 12/21/22 Expected End: 01/11/23 Patient will ascend and descend 10 # stairs with independence rail for balance only. (Progressing) Start: 12/21/22 Expected End: 01/11/23 Patient will be independent with P&C exercises. (Progressing) Start: 12/21/22 Expected End: 01/11/23 Patient will be independent with managing secretions and home walking program. (Progressing) Start: 12/21/22 Expected End: 01/11/23 Education Education Given To: Patient Education Provided: Goals, Plan of Care, Home Exercise Program, Transfer Training, Gait Training Education Provided Comments: sternal precuations, autosplinting Education Method: Verbal, Demonstration Barriers to Learning: None Education Outcome: Verbalized understanding, Continued education needed Therapy Time Individual Co-treatment Time In 0858 Time Out 0922 Minutes 24 Timed Code Treatment Minutes: 24 Minutes (gait, TP) *PPE worn per facility policy during session* Kelsey Cooper PTA * Phillip Jo APRN - EXPERIMENTAL WELDER - 12/25/2022 6:06 AM EDT Images from the original note were not included. Cardiothoracic Surgery/CCM Progress Note PATIENT NAME: Jesus Alberto Guevara Jr. 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 Today he was transferred from [facility] due to a positive stress test with inferior WMA, EKG changes, t-wave inversions in the inferior leads. 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 His EF was 75% on LV gram and during the stress test was measured at 65% - Normal LVEDP. He does have CKD baseline creat of 1.42. Other labs are unremarkable. He did not get loaded with P2Y12 therapy at [facility], he is on BB, asa, statin and has a PMH of stenting 10 years ago, HTN, HLD. Did have a TIA after quitting ASA at one time. He is a former pipe-smoker and occasionally uses ETOH. He elected for CABG x [address] Nickerson - His EF is preserved and no significant Valve disease. He consented and went to surgery today and had CABG x 4. Surgery/Procedure: 12/20/22: CABG x4 with Dr. Nickerson Interval History: 12/25/22, POD# 5: VSS on 2LNC - dose drop O2 sats when off, no acute issues overnight besides not sleeping much. Pain controlled. Resting in bed about to get up with nursing. Wants to go home today Review of Systems Constitutional: Negative for diaphoresis, fatigue and fever. Respiratory: Negative for cough, shortness of breath and wheezing. Cardiovascular: Negative for chest pain, palpitations and leg swelling. Gastrointestinal: Positive for abdominal distention (soft, chronic, BS x4 quadrants). Negative for constipation and diarrhea. Skin: Negative for color change, pallor and rash. Objective: Last BM Date: 12/24/22 Vitals: BP: 126/68, MAP (mmHg): 85, BP Method: Automatic Heart Rate: 60 Resp: 12 Temp: 36.7 C (98 F), Temp Source: Temporal BMI (Calculated): 31.39 CXR: BMP: Recent Labs 12/23/22 0012 12/24/22 0000 12/25/22 0041 NA 134* 134* 134* K 4.0 3.8 3.4* CL 103 102 102 CO2 27 30 28 BUN 25* 32* 36* CREATININE 1.49* 1.47* 1.55* CALCIUM 7.9* 7.9* 7.8* MG 2.2 2.4* 2.3 CBC: Recent Labs 12/23/22 0012 12/24/22 0000 12/25/22 0041 WBC 11.3* 10.3 8.0 HGB 11.1* 11.3* 11.9* HCT 33.4* 33.1* 35.1* PLT 133* 171 166 MCV 87.9 86.5 87.1 RDW 14.1 13.8 13.9 INR: Recent Labs 05/28/23 0012 INR 1.0 Physical Exam Cardiovascular: Rate and Rhythm: Normal rate and regular rhythm. Heart sounds: Normal heart sounds. No murmur heard. No friction rub. Pulmonary: Effort: Pulmonary effort is normal. Abdominal: General: There is distension. Skin: General: Skin is warm and dry. Capillary Refill: Capillary refill takes less than 2 seconds. Findings: Bruising and ecchymosis present. Comments: Surgical Incisions: well approximate; clean dry with no drainage noted. Surrounding skin no redness, warmth, or signs of infection noted. Neurological: Mental Status: He is alert. Psychiatric: Behavior: Behavior is cooperative. Assessment: MVCAD Prior PCI of LAD CKD III HTN HLD Post operative Pulm Management: Normal Post-operative Course Post-operative Atrial Fibrillation: [x]Yes [] No Acute blood loss anemia/consumptive thrombocytopenia Plan: Patient Status: Telemetry Continue ASA, statin, BB Hold diuretics Replace calcium, replace k Transition from IV amio to Po Nephro following for KASSANDRA on CKD Endo signed off No meds at discharge Wean off O2; ?home with O2 vs one more day to attempt to wean; patient is former smoker PT/OT PT recs: 12/21/22 Advance diet Pulmonary hygiene: IS and Acapella GI prophy: PO protonix DVT prophy:TEDs, SCDs, and Heparin SubQ Epicardial pacing wire cut without difficulty per protocol. Patient and nurse educated on possible complications. Patient tolerated well. Will continue to monitor. Disposition: TBD ?home today with oxygen vs staying one more day - will discuss Central Line: []Yes [x] No Arterial Line: []Yes [x] No [place]: []Yes [x] No Restraints: []Yes [x] No Patient discussed and plan of day developed from multidisciplinary rounds between Cardiothoracic Surgery (Cardiothoracic Surgeon, [facility]) and Critical Care Attending Cardiac Core Medications: ASA, Statin, and BB EF: 55% 12/18/22 Blood Conservation: None noted in post-operative period Marine Radio Installer And Servicer: Dr. Khan ([facility]) * Sammi Patten DO - 12/24/2022 2:07 PM EDT Nephrology Progress Note Following for KASSANDRA on CKD. He denies CP, SOB or nausea. Starting diet today Current Inpatient Medications: Reviewed on SEP. Vitals: BP 118/71 (BP Location: Left arm, Patient Position: Lying) Pulse 65 Temp 36.8 C (98.3 F) (Oral) Resp 16 Ht 1.803 m (5' 11) Wt 102 kg (225 lb) SpO2 92% PF 55 L/min BMI 31.38 kg/m BLOOD PRESSURE RANGE: Systolic (24hrs), Av , Min:111 , Max:137 ; Diastolic (24hrs), Av, Min:70, Max:82 24HR INTAKE/OUTPUT: Intake/Output Summary (Last 24 hours) at 12/24/2022 1407 Last data filed at 12/24/2022 1354 Gross per 24 hour Intake 370 ml Output 1700 ml Net -1330 ml Physical exam: General: NAD, alert Chest: bilateral vesicular breath sounds Cardiac: S1, S2 Abdomen: soft SKIN: dry Extremities: no lower extremity edema Data: Labs: Recent Labs 12/22/22 0127 12/23/22 0012 12/24/22 0000 WBC 11.6* 11.3* 10.3 HGB 10.8* 11.1* 11.3* HCT 32.1* 33.4* 33.1* MCV 87.5 87.9 86.5 PLT 107* 133* 171 Recent Labs 12/22/22 0127 12/23/22 0012 12/24/22 0000 NA 134* 134* 134* K 4.2 4.0 3.8 CL 107 103 102 CO2 22 27 30 GLUCOSE 125* 119* 121* CALCIUM 8.0* 7.9* 7.9* MG 2.4* 2.2 2.4* BUN 23* 25* 32* CREATININE 1.36* 1.49* 1.47* Assessment: Jesus Alberto Saldivar Paola Lopez is a 82 y.o. male with PMH including HTN, HLD, TIA, who presented from [facility] on 12/18/2022 due to positive stress test with inferior WMA, EKG changes. The patient is status post LHC done which showed MVCAD. He is status post CABG. On 12/18/2022 nephrology consulted for KASSANDRA on CKD. KASSANDRA on CKD- stage 3a. -Baseline serum creatinine appears to be around 1.30 mg/dL. -Serum creatinine increased to 1.57 mg/dL on 12/21/2022. -Creatinine has fluctuated after CABG as expected but is still stable at 1.5 mg/dL today -The patient is nonoliguric. Okay to continue furosemide from nephrology standpoint. HTN- BP stable on metoprolol and diuretic. Volume-chest x-ray does not show significant pulmonary edema/pleural effusion. However, he has beenon IV furosemide. -Okay to continue IV furosemide with monitoring of renal function. Acid/base-improved. The patient had serum bicarbonate level of 18 mmol/L on 12/21/2022. Serum bicarbonate level is better today and 27 mmol/L. Hyponatremia-monitor for now, the patient is only mildly hyponatremic without worrisome symptoms. He is currently n.p.o. I suspect serum sodium will improve once he is able to have some solute intake. Plan: -Renal function has been relatively stable with expected fluctuation after CABG. -There is no need for kidney replacement therapy. -Continue current medical treatment. Okay from nephrology standpoint to continue IV furosemide. -We will continue to monitor renal function, acid-base status, and electrolytes. Sammi Patten DO * Phillip Jo APRN - EXPERIMENTAL WELDER - 12/24/2022 5:30 AM EDT Images from the original note were not included. Cardiothoracic Surgery/[facility] Progress Note PATIENT NAME: Jesus Alberto Guevara Jr. 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 Today he was transferred from [facility] due to a positive stress test with inferior WMA, EKG changes, t-wave inversions in the inferior leads. 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 His EF was 75% on LV gram and during the stress test was measured at 65% - Normal LVEDP. He does have CKD baseline creat of 1.42. Other labs are unremarkable. He did not get loaded with P2Y12 therapy at [facility], he is on BB, asa, statin and has a PMH of stenting 10 years ago, HTN, HLD. Did have a TIA after quitting ASA at one time. He is a former pipe-smoker and occasionally uses ETOH. He elected for CABG x [address] Nickerson - His EF is preserved and no significant Valve disease. He consented and went to surgery today and had CABG x 4. Surgery/Procedure: 12/20/22: CABG x4 with Dr. Nickerson Interval History: 12/24/22, POD# 4: VSS, 2LNC - passing flatus - BSx4 quadrants no BM remained in SR - no other acuteissues noted. Patient wants to eat. Up to chair. Pain controlled. 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 Review of Systems Constitutional: Negative for diaphoresis, fatigue and fever. Respiratory: Negative for cough, shortness of breath and wheezing. Cardiovascular: Negative for chest pain, palpitations and leg swelling. Gastrointestinal: Positive for abdominal distention (soft, chronic, BS x4 quadrants). Negative for constipation and diarrhea. Skin: Negative for color change, pallor and rash. Objective: Last BM Date: 12/23/22 Vitals: BP: 129/82, MAP (mmHg): 95, BP Method: Automatic Heart Rate: 61 Resp: 18 Temp: 37 C (98.6 F), Temp Source: Temporal BMI (Calculated): 32.39 Pacer Wires: Temporary Wires: Epicardial Wire Status: Grounded wire(s) (not in use) CXR: BMP: Recent Labs 12/22/22 0127 12/23/22 0012 12/24/22 0000 NA 134* 134* 134* K 4.2 4.0 3.8 CL 107 103 102 CO2 22 27 30 BUN 23* 25* 32* CREATININE 1.36* 1.49* 1.47* CALCIUM 8.0* 7.9* 7.9* MG 2.4* 2.2 2.4* CBC: Recent Labs 12/22/22 0127 12/23/22 0012 12/24/22 0000 WBC 11.6* 11.3* 10.3 HGB 10.8* 11.1* 11.3* HCT 32.1* 33.4* 33.1* PLT 107* 133* 171 MCV 87.5 87.9 86.5 RDW 14.4 14.1 13.8 INR: Recent Labs 12/22/22 0127 12/23/22 0012 INR 1.1 1.0 Physical Exam Cardiovascular: Rate and Rhythm: Normal rate and regular rhythm. Heart sounds: Normal heart sounds. No murmur heard. No friction rub. Pulmonary: Effort: Pulmonary effort is normal. Abdominal: General: There is distension. Skin: General: Skin is warm and dry. Capillary Refill: Capillary refill takes less than 2 seconds. Findings: Bruising and ecchymosis present. Comments: Surgical Incisions: well approximate; clean dry with no drainage noted. Surrounding skin no redness, warmth, or signs of infection noted. Neurological: Mental Status: He is alert. Psychiatric: Behavior: Behavior is cooperative. Assessment: MVCAD Prior PCI of LAD CKD III HTN HLD Post operative Pulm Management: Normal Post-operative Course Post-operative Atrial Fibrillation: [x]Yes [] No Acute blood loss anemia/consumptive thrombocytopenia Plan: Patient Status: Telemetry Continue ASA, statin, BB IV lasix 20mg BID Transition from IV amio to Po Remove IJ Nephro following for KASSANDRA on CKD Appreciate recs - continue lasix Endo signed off No meds at discharge PT/OT PT recs: 12/21/22 Advance diet Pulmonary hygiene: IS and Acapella GI prophy: PO protonix DVT prophy:TEDs, SCDs, and Heparin SubQ Disposition: TBD Central Line: [x]Yes [] No Arterial Line: []Yes [x] No Olmedo: []Yes [x] No Restraints: []Yes [x] No Patient discussed and plan of day developed from multidisciplinary rounds between Cardiothoracic Surgery (Cardiothoracic Surgeon, [facility]) and Critical Care Attending Cardiac Core Medications: ASA, Statin, and BB EF: 55% 12/18/22 Blood Conservation: None noted in post-operative period Marine Radio Installer And Servicer: Dr. Khan ([place]) Associated attestation - Mat Barrios MD - 12/24/2022 4:36 PM EDT I have personally seen the patient and examined along with the [facility]/resident team. I personally obtained the quintanilla and relevent portions of the history and performed physical exam. I reviewed the chart including MAR , labs and radiology and discussed the patient's plan of action with the resident/[facility].This note reflects my plan of care as I have edited the note to reflect my findings and my assessment and plan. Discussed with: []Residents [x]Patient/Family [x]RN []Consultants []SW/TCC []Other [x][facility] Personally Reviewed: [x]Epic notes [x]Radiology studies [x]Labs []EKG []Other Assessment: 82-year-old male postop day 4 from four-vessel CABG with Dr. Nickerson. Plan: -Continue ASA, statin, scheduled lasix -transition to PO amio -remove cvc -Continue pulmonary hygiene, PT/OT -Tele status * NARAYAN Cagle CNP - 12/23/2022 11:08 AM EDT Images from the original note were not included. Cardiothoracic Surgery Note PATIENT NAME: Jesus Alberto Guevara JrAnne-Marie : 1940 (82 y.o.) TODAY'S DATE: 12/23/2022 Objective: BP 135/70 Pulse 72 Temp 37.8 C (100 F) (Temporal) Resp 18 Ht 5' 11 (1.803 m) Wt 232 lb 2.3 oz (105 kg) SpO2 99% PF 55 L/min BMI 32.38 kg/m Chest tubes assessed: no air leak, subcutaneous air noted. Chest tubes removed without difficulty and dressing applied. Patient tolerated well. Patient and nurse educated on possible complications toobserve for. Will continue to monitor. * Mainor Rutledge MD - 12/23/2022 9:36 AM EDT Nephrology Progress Note Following for KASSANDRA on CKD. He complains of discomfort around chest tube exit site. He does not like NG tube. He denies CP, SOB or nausea. Current Inpatient Medications: Reviewed on SEP. Vitals: BP (!) 143/79 (BP Location: Left arm) Pulse 72 Temp 37.8 C (100 F) (Temporal) Resp 18 Ht 1.803 m (5' 11) Wt 105 kg (232 lb 2.3 oz) SpO2 93% PF 55 L/min BMI 32.38 kg/m BLOOD PRESSURE RANGE: Systolic (24hrs), Av , Min:98 , Max:145 ; Diastolic (24hrs), Av, Min:66, Max:98 24HR INTAKE/OUTPUT: Intake/Output Summary (Last 24 hours) at 12/23/2022 0936 Last data filed at 12/22/2022 2300 Gross per 24 hour Intake 252.72 ml Output 1890 ml Net -1637.28 ml Physical exam: General: NAD, alert Chest: bilateral vesicular breath sounds Cardiac: S1, S2 Abdomen: soft SKIN: dry Extremities: no lower extremity edema Data: Labs: Recent Labs 12/21/22 0012 12/22/22 0127 12/23/22 0012 WBC 10.3 11.6* 11.3* HGB 10.8* 10.8* 11.1* HCT 31.4* 32.1* 33.4* MCV 86.8 87.5 87.9 PLT 103* 107* 133* Recent Labs 12/20/22 1242 12/21/22 0012 12/22/22 0127 12/23/22 0012 NA 139 137 134* 134* K 4.5 4.6 4.2 4.0 CL 111* 110* 107 103 CO2 21* 18* 22 27 GLUCOSE 128* 125* 125* 119* CALCIUM 8.4 7.9* 8.0* 7.9* PHOS 3.1 -- -- -- MG 3.2* 2.4* 2.4* 2.2 BUN 21* 22* 23* 25* CREATININE 1.41* 1.57* 1.36* 1.49* Assessment: Jesus Alberto Guevara Jr. is a 82 y.o. male with PMH including HTN, HLD, TIA, who presented from [facility] on 12/18/2022 due to positive stress test with inferior WMA, EKG changes. The patient is status post LHC done which showed MVCAD. He is status post CABG. On 12/18/2022 nephrology consulted for KASSANDRA on CKD. KASSANDRA on CKD- stage 3a. -Baseline serum creatinine appears to be around 1.30 mg/dL. -Serum creatinine increased to 1.57 mg/dL on 12/21/2022. -Creatinine has fluctuated after CABG as expected but is still stable at 1.49 mg/dL today, 12/23/2022. -The patient is nonoliguric. Okay to continue furosemide from nephrology standpoint. HTN- BP stable on metoprolol and diuretic. Volume-chest x-ray does not show significant pulmonary edema/pleural effusion. However, he has beenon IV furosemide. -Okay to continue IV furosemide with monitoring of renal function. Acid/base-improved. The patient had serum bicarbonate level of 18 mmol/L on 12/21/2022. Serum bicarbonate level is better today and 27 mmol/L. Hyponatremia-monitor for now, the patient is only mildly hyponatremic without worrisome symptoms. He is currently n.p.o. I suspect serum sodium will improve once he is able to have some solute intake. Plan: -Renal function has been relatively stable with expected fluctuation after CABG. -There is no need for kidney replacement therapy. -Continue current medical treatment. Okay from nephrology standpoint to continue IV furosemide. -We will continue to monitor renal function, acid-base status, and electrolytes. Please do not hesitate to contact me at [phone] if there is any question or concern. MAINOR RUTLEDGE MD, (Karthikeyan Jay) * Manuelito Reyes APRN - EXPERIMENTAL WELDER - 12/23/2022 5:59 AM EDT Images from the original note were not included. Cardiothoracic Surgery/[facility] Progress Note PATIENT NAME: Jesus Alberto Guevara Jr. 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 Today he was transferred from [facility] due to a positive stress test with inferior WMA, EKG changes, t-wave inversions in the inferior leads. 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 His EF was 75% on LV gram and during the stress test was measured at 65% - Normal LVEDP. He does have CKD baseline creat of 1.42. Other labs are unremarkable. He did not get loaded with P2Y12 therapy at [facility], he is on BB, asa, statin and has a PMH of stenting 10 years ago, HTN, HLD. Did have a TIA after quitting ASA at one time. He is a formerpipe-smoker and occasionally uses ETOH. He elected for CABG x [address] Nickerson - His EF is preserved and no significant Valve disease. He consented and went to surgery today and had CABG x 4. Surgery/Procedure: 12/20/22: Dr. Nickerson- CABG x4 Interval History: 12/23/22, POD# 03. Afebrile, went into afib yesterday but converted to NSR around 0100 this AM, BP stable, on 3L NC. Started on amio bolus and drip. Abdomen distended, complaining of nausea. Review of Systems Constitutional: Negative for chills, diaphoresis and fever. Respiratory: Negative for cough, shortness of breath and wheezing. Cardiovascular: Positive for chest pain. Negative for palpitations and leg swelling. Gastrointestinal: Positive for abdominal distention and nausea. Negative for abdominal pain and vomiting. Neurological: Negative for dizziness, syncope and light-headedness. Objective: CT output cc/24hrs: 65 UO cc/24hrs: 1,950 Vitals: BP: 113/71, MAP (mmHg): 83, BP Method: Automatic Heart Rate: 61 Resp: 18 Temp: 36.8 C (98.2 F), Temp Source: Temporal BMI (Calculated): 32.39 BMP: Recent Labs 12/20/22 1242 12/21/22 0012 12/22/22 0127 12/23/22 0012 NA 139 137 134* 134* K 4.5 4.6 4.2 4.0 CL 111* 110* 107 103 CO2 21* 18* 22 27 BUN 21* 22* 23* 25* CREATININE 1.41* 1.57* 1.36* 1.49* CALCIUM 8.4 7.9* 8.0* 7.9* MG 3.2* 2.4* 2.4* 2.2 PHOS 3.1 -- -- -- CBC: Recent Labs 12/21/22 0012 12/22/2212612/23/22 001 WBC 10.3 11.6* 11.3* HGB 10.8* 10.8* 11.1* HCT 31.4* 32.1* 33.4* PLT 103* 107* 133* MCV 86.8 87.5 87.9 RDW 13.7 14.4 14.1 INR: Recent Labs 12/21/22 0012 12/22/227 12/23/22 001 INR 1.1 1.1 1.0 Physical Exam Vitals reviewed. Constitutional: General: He is not in acute distress. Appearance: He is not ill-appearing or diaphoretic. Cardiovascular: Rate and Rhythm: Normal rate and regular rhythm. Pulses: Normal pulses. Pulmonary: Breath sounds: No wheezing, rhonchi or rales. Comments: Shallow breaths, diminished in bases bilaterally. Abdominal: General: There is distension. Tenderness: There is no abdominal tenderness. Comments: Chest tubes in place. Genitourinary: Comments: Olmedo. Skin: General: Skin is warm and dry. Capillary Refill: Capillary refill takes less than 2 seconds. Findings: No bruising or lesion. Comments: MSI well approximated. No redness, warmth or drainage noted. Neurological: General: No focal deficit present. Mental Status: He is alert and oriented to person, place, and time. Assessment: MVCAD Prior PCI of LAD CKD III HTN HLD Post operative Pulm Management: Normal Post-operative Course Post-operative Atrial Fibrillation: [x]Yes [] No Acute blood loss anemia Plan: Patient Status: Telemetry Continue IV amio for today, switch to PO tomorrow if remains in NSR. Lasix 20mg BID. Olmedo out. Chest tubes out. Increase BB. Drop NG tube, make NPO. KUB to assess distention. Dulcolax suppositories BID. Zofran and compazine for nausea. Will remove chest tubes. DVT prophy. PT/OT, progressive mobility. PT recs: IP rehab (12/21/22) Pulmonary hygiene: IS and Acapella. Wean O2 as able, goal SpO2 >92%. GI prophy: PO protonix DVT prophy:TEDs, SCDs, and Heparin SubQ Disposition: TBD. Central Line: [x]Yes [] No Arterial Line: []Yes [x] No Olmedo: []Yes [x] No Restraints: []Yes [] No Patient discussed and plan of day developed from multidisciplinary rounds between Cardiothoracic Surgery (Cardiothoracic Surgeon, [facility]) and Critical Care Attending Cardiac Core Medications: ASA, Statin, and BB EF: 55% 12/18/22 Blood Conservation: None noted in post-operative period Marine Radio Installer And Servicer: Dr. Khan ([facility]) Associated attestation - Octavia Wesley MD - 12/23/2022 10:20 AM EDT I have personally performed a [id number] diagnostic evaluation on this patient on date of service12/23/22. History, labs, imaging studies, and electronic medical record have been reviewed by me. This note documented by the []warehouse unloader [x][facility]CHO reflects my history, exam, and medical decision making. I have reviewed and agree with the care plan. Changes were made in the orders as necessary. ROSdocumentation was reviewed and negative unless otherwise stated in HPI. Additional pertinent interval history, ROS, and physical exam findings: Still complaining of nausea, upset stomach and urge to vomit. Cxr personally reviewed- left sided atelectasis and post op changes. No lines. Abd x ray- mild dilated loops of bowel. CREATININE 0.66 - 1.25 mg/dL 1.49 High 1.36 High 1.57 High Cr stable. Negative 1.7 L yesterday on lasix 20 IV BID BP soft but acceptable. Had a fib yesterday, placed on amiodarone infusion, now in sinus since 1 AM. Assessment: MV CAD s.p. CABG A fib. Post OP. CKD stage 3- Cr stable, Dr Armenta team following. Post op pulmonary management, normal post OP course, extubated in window now on 3 lpm NC HTN- controlled Dyslipidemia - statin Acute blood loss anemia Obesity, Bmi 32 Nausea, rule out ileus Plan: NPO, KUB, might need NGT Continue diuresis with close monitoring of renal function. Currently tolerating well. Continue amiodarone IV today, consider PO tomorrow. Wean oxygen, pulm hygeine, OOB to chair, IS Titrate metoprolol to 25 BID. Rest of care as per [facility] note. * Sydni Pizarro, DIE SINKER APPRENTICE - EXPERIMENTAL WELDER - 12/22/2022 6:49 PM EDT Department of Internal Medicine Division of Endocrinology, Diabetes, & Metabolism Endocrinology Note Patient Name: Jesus Alberto Guevara Jr. : 1940 AGE: 82 y.o. Room[facility]Bed: [facility] Admission Date: 12/18/2022 Visit Date: 12/22/2022 Reason for Endocrine Consult: post op heart Provider/Team Requesting Consult: CTS PCP: JAZLYN ZAYAS, DO Outpt Safety Compliance Specialist: No ASSESSMENT: Stress hyperglycemia Cabg CAD/HTN/HLD KASSANDRA on CKD PLAN: Discontinue sliding scale Discontinue sliding scale Will sign off ICU goal <180 GMF goal <150 POCT ACHS Hypoglycemia per protocol Carb controlled diet ANTICIPATED ENDOCRINE HOME GOING RECOMMENDATIONS: Optimized for Discharge from Endocrine standpoint: No Home Going Endocrine Rx Recommendations-- none Outpt Follow Up-- pcp SUBJECTIVE/HPI: CHIEF COMPLAINT: No chief complaint on file. Cabg No noted hx of diabetes noted Bgl [phone] Feels good Pain is better Eating well Type of DM: na Onset of DM: na Home DM Medication Regimen: na DM control (last A1c/glucose data): Lab Results Component Value Date HGBA1C 5.4 12/18/2022 Review of Systems All other systems reviewed and are negative. ROS negative except for those mentioned in HPI. OBJECTIVE: Vitals: 12/22/22 1600 12/22/22 1653 12/22/22 1700 12/22/22 1800 BP: 125/84 111/74 120/81 124/84 BP Location: Patient Position: Pulse: 91 89 91 90 Resp: 20 Temp: (!) 38.1 C (100.6 F) 37.3 C (99.2 F) TempSrc: Temporal Temporal SpO2: 98% 96% 97% 97% Weight: Height: PF: Physical Exam Vitals and nursing note reviewed. Constitutional: General: He is awake. He is not in acute distress. Appearance: He is not ill-appearing or toxic-appearing. HENT: Head: Normocephalic and atraumatic. Cardiovascular: Rate and Rhythm: Normal rate. Pulmonary: Effort: Pulmonary effort is normal. Abdominal: Palpations: Abdomen is soft. Skin: General: Skin is warm and dry. Comments: Intact incision Neurological: Mental Status: He is alert and oriented to person, place, and time. Psychiatric: Mood and Affect: Mood normal. Behavior: Behavior is cooperative. 24 hour intake/output: Intake/Output Summary (Last 24 hours) at 12/22/2022 1849 Last data filed at 12/22/2022 1832 Gross per 24 hour Intake 1929.72 ml Output 1720 ml Net 209.72 ml Diet: Adult diet Regular; 5 carb choices (75 gm/meal) Medications (as per EMR): HomeMeds: @MEDHMEDS@ Scheduled Meds:acetaminophen, 1,000 mg, IntraVENous, 4 times per day aspirin, 81 mg, Oral, Daily chlorhexidine, 15 mL, Mouth/Throat, BID furosemide, 20 mg, IntraVENous, BID heparin, 5,000 Units, SubCUTAneous, 2 times per day Lidocaine, 1 patch, TransDERmal, Daily [START ON 12/23/2022] magnesium hydroxide, 30 mL, Oral, Daily metoprolol tartrate, 12.5 mg, Oral, BID mupirocin, , Nasal, BID pantoprazole, 40 mg, Oral, qAM AC polyethylene glycol (PEG) 3350, 17 g, Oral, Daily rosuvastatin, 40 mg, Oral, Daily senna-docusate sodium, 2 tablet, Oral, Nightly Continuous Infusions:amiodarone, 1 mg/min, Last Rate: 1 mg/min (12/22/22 1657) Followed by amiodarone, 0.5 mg/min PRN Meds:PRN medications: albumin human, calcium gluconate, dextrose, dextrose, glucagon (rDNA), glucose, magnesium sulfate OR magnesium sulfate, ondansetron ODT OR ondansetron, potassium chloride OR potassium chloride (KCl) in 250 mL IVPB (peripheral line) OR potassium chloride (KCl) in 500 mL IVPB (peripheral line), potassium chloride CR, prochlorperazine, simethicone, tiZANidine, traMADol OR traMADol Diagnostic Workup: I reviewed pertinent Laboratory results, Radiographic results, and Other Clinical Notes at the timeof today's encounter. Labs: No components found for: LABA1C No components found for: EAG Lab Results Component Value Date NA 134 (L) 12/22/2022 K 4.2 12/22/2022 CL 107 12/22/2022 CO2 22 12/22/2022 BUN 23 (H) 12/22/2022 CREATININE 1.36 (H) 12/22/2022 GLUCOSE 125 (H) 12/22/2022 CALCIUM 8.0 (L) 12/22/2022 No results found for: CHLPL, CHOL No results found for: TRIG No results found for: HDL No results found for: LDLCALC No results found for: VLDL No results found for: CHOLHDLRATIO No results found for: [id number] Lab Results Component Value Date TSH 0.804 12/18/2022 Radiology reportsas per the Radiologist Radiology: ECG 12 lead Result Date: 12/19/2022 Sinus bradycardia Nonspecific T abnormalities, lateral leads Electronically Signed On 12-19-2022 9:21:36 EDT by Nathan Al[address] CT chest wo IV contrast Result Date: 12/19/2022 Patient Name: JESUS ALBERTO GUEVARA : 1940 Exam Date/Time: 12/18/2022 21:41 Procedure: CT CHEST WO IV CONTRAST Ordering Provider: REYES KYLE Reason For Exam: Aortic aneurysm, known or suspected CLINICAL INFORMATION: Positive stress test. ECG changes. Coronary artery disease. Planned CABG. 1 mm axial cuts are obtained through the chest without IV contrast. Dose reduction was employed with automated exposure control. There are no comparison studies at this institution. FINDINGS: The heart size is normal. The ascending aorta and arch are normal in caliber. The lumen cannot be evaluated on this unenhanced scan. A small amount of fluid is present about the aortic root. However, this is thought to reside in the pericardial recess. There is no evidence of dissection or leak. Coronary arterial calcifications are most pronounced in the left anterior descending coronary artery. There is no mediastinal lymphadenopathy. The lungs arefree of infiltrate or pleural effusion. A well-defined smooth 0.6 cm nodule is present in the rightmiddle lobe (image #[id number]). A 0.4 cm nodule is present in the periphery the right upper lobe (image #125). Both are too small to further characterize. Upper cuts of the abdomen included on the examination are grossly normal on this unenhanced scan. 1. The ascending aorta is normal in caliber. 2. Coronary arterial calcifications most pronounced inthe LAD. 3. Right upper and middle lobe lung nodules. These are too small to further characterize. In a low risk patient (i.e. minimal or absent history of smoking and no other known risk factors), afollow-up CT is recommended in 12 months. If the patient is of higher risk, a follow-up CT is recommended in approximately 6 months. If desired, this could again be performed without IV contrast. Report Dictated on Electronically Signed By: Andres Dias Electronically Signed Date/Time: 12/19/2022 10:17 AM EDT XR chest 1 view Result Date: 12/19/2022 Patient Name: JESUS ALBERTO GUEVARA : 1940 Exam Date/Time: 12/19/2022 07:53 Procedure: XR CHEST 1 VIEW Ordering Provider: EMERSON MATTHEW Reason For Exam: CORONARY ARTERIOSCLEROSIS CHEST (Frontal View) History: Respiratory abnormality, coronary artery disease Comparison chest x-ray: None available Findings: Frontal chest view shows mild chronic lung changes with small linear left basilar atelectasis without acute infiltrate or congestion. The heart is normal in size. Aorta appears tortuous. There is no mediastinal widening or pleural effusion. No acute pulmonary process. Report Dictated on Electronically Signed By:Eun Burleson Electronically Signed Date/Time: 12/19/2022 9:03 AM EDT Transthoracic echocardiogram (TTE) complete with contrast, bubble, strain, and 3D PRN Result Date: 12/19/2022 Left Ventricle: Left ventricle size is normal. Mildly increased wall thickness. Normal left ventricular systolic function. EF by 2D Simpsons Biplane is 69%. See diagram for wall motion findings. Right Ventricle: Right ventricle size is normal. Normal systolic function. Aortic Valve: Mild to moderate (1-2+) regurgitation. Mitral Valve: Mild (1+) regurgitation. Vascular US carotid artery duplex bilateral Result Date: 12/18/2022 <50% stenosis in the right internal carotid artery. Mild and calcific plaque (proximal) in the right internal carotid artery. <50% stenosis in the left internal carotid artery. Moderate, heterogeneous and calcific plaque (proximal) in the left internal carotid artery. Normal antegrade flow involving the right vertebral artery. Normal antegrade flow involving the left vertebral artery. Vascular US lower extremity vein mapping for bypass bilateral Result Date: 12/18/2022 Vessel diameters as noted in the table below. History/Other: Past Medical History: History reviewed. No pertinent past medical history. Past Surgical History: History reviewed. No pertinent surgical history. Allergy(ies): No Known Allergies Family History: No family history on file. Social History: Portions of the information within this encounter were entered using an electronic dictation system. Best attempts were made to edit/proofread the information prior to note completion. Despite the review of information, some errors may remain. If there are questions related to the information contained within the note please contact the signing physician directly. I spent 18 minutes with the pt which involved coordination of care, medical evaluation, review of records, and/or counseling of the pt regarding his/her condition/disease state/prognosis on the date of this note. Associated attestation - Greg Garcia MD - 12/22/2022 11:44 PM EDT I performed a history and physical examination of the patient. I have reviewed the patient's chart including pertinent history, medications, labs, radiology, and other reports. I reviewed the resident/LUCHO's note, agree with the documented findings and plan of care (with modifications noted if any),and discussed the management plan. I have performed a substantive portion of the the medical decision making. Pt eating a little better today. Had jello. No n/v. BG stable. BP 107/68 Pulse 77 Temp 36.8 C (98.2 F) (Oral) Resp 18 Ht 5' 11 (1.803 m) Wt 232 lb 2.3 oz (105 kg) SpO2 97% PF 55 L/min BMI 32.38 kg/m Awake, not in distress, on O2 per NC, RRR, chest incision intact, decreased breath sounds, abdomen soft, distended, non-tender, no edema. Dx: Stress hyperglycemia. CAD s/p CABG. CKD 3. Plan: - discontinue SS insulin - no need for regular glucose monitoring - discussed importance of healthy lifestyle - will sign off Total time 20 minutes which include review of records, counseling, management, and coordination of care as documented in note. * Sammi Patten DO - 12/22/2022 4:07 PM EDT [facility] [address] [place] [address] Progress Note Assessment: Jesus Alberto Guevara is a 82 y.o. male with PMH including HTN, HLD, TIA, who presented from [facility] due to positive stress test with inferior WMA, EKG changes, had LHC done which showed MVCAD. Nephrology consulted for CKD. CKD- stage 3, recently Scr improving -non-oliguric recently -S/P CABG doing well HTN- BP stable Volume- no overt fluid overload Acid/base- AGMA Hyponatremia-monitor for now, Pt on IV Lasix BID Plan: -monitor renal function, electrolytes -no need for IVFs Sammi Patten DO 12/22/2022 4:07 PM Subjective: Patient seen and examined today. We are following this patient for S/P CABG x [address] Nickerson - D/w RN , no new issues Scheduled Meds:acetaminophen, 1,000 mg, IntraVENous, 4 times per day amiodarone, 150 mg, IntraVENous, Once aspirin, 81 mg, Oral, Daily chlorhexidine, 15 mL, Mouth/Throat, BID furosemide, 20 mg, IntraVENous, BID heparin, 5,000 Units, SubCUTAneous, 2 times per day insulin lispro, 0-6 Units, SubCUTAneous, TID WC Lidocaine, 1 patch, TransDERmal, Daily [START ON 12/23/2022] magnesium hydroxide, 30 mL, Oral, Daily metoprolol tartrate, 12.5 mg, Oral, BID mupirocin, , Nasal, BID pantoprazole, 40 mg, Oral, qAM AC polyethylene glycol (PEG) 3350, 17 g, Oral, Daily rosuvastatin, 40 mg, Oral, Daily senna-docusate sodium, 2 tablet, Oral, Nightly Continuous Infusions:amiodarone, 1 mg/min Followed by amiodarone, 0.5 mg/min PRN Meds:PRN medications: albumin human, calcium gluconate, dextrose, dextrose, glucagon (rDNA), glucose, magnesium sulfate OR magnesium sulfate, ondansetron ODT OR ondansetron, potassium chloride OR potassium chloride (KCl) in 250 mL IVPB (peripheral line) OR potassium chloride (KCl) in 500 mL IVPB (peripheral line), potassium chloride CR, prochlorperazine, simethicone, tiZANidine, traMADol OR traMADol Vitals: BP 110/71 Pulse 94 Temp 37.9 C (100.3 F) (Temporal) Resp 20 Ht 1.803 m (5' 11) Wt 105 kg(232 lb 2.3 oz) SpO2 98% PF 55 L/min BMI 32.38 kg/m BLOOD PRESSURE RANGE: Systolic (24hrs), Av , Min:99 , Max:145 ; Diastolic (24hrs), Av, Min:61, Max:84 24HR INTAKE/OUTPUT: Intake/Output Summary (Last 24 hours) at 12/22/2022 1607 Last data filed at 12/22/2022 1200 Gross per 24 hour Intake 1914 ml Output 1815 ml Net 99 ml Physical exam: General: NAD, alert Chest: bilateral vesicular breath sounds Cardiac: S1, S2 Abdomen: soft SKIN: dry Extremities: no lower extremity edema Data: Labs: Recent Labs 12/20/22 1242 12/21/22 0012 12/22/22 0127 WBC 7.3 10.3 11.6* HGB 10.2* 10.8* 10.8* HCT 31.0* 31.4* 32.1* MCV 88.4 86.8 87.5 PLT 87* 103* 107* Recent Labs 12/20/22 1242 12/21/22 0012 12/22/22 0127 NA 139 137 134* K 4.5 4.6 4.2 CL 111* 110* 107 CO2 21* 18* 22 GLUCOSE 128* 125* 125* PHOS 3.1 -- -- MG 3.2* 2.4* 2.4* BUN 21* 22* 23* CREATININE 1.41* 1.57* 1.36* Ionized Calcium: No components found for: IONCA Magnesium: Lab Results Component Value Date MG 2.4 (H) 12/22/2022 Phosphorus: Lab Results Component Value Date PHOS 3.1 12/20/2022 U/A: No results found for: NITRITE, COLORU, PHUR, TRICHOMONAS, YEAST, BACTERIA, CLARITYU, SPECGRAV, LEUKOCYTESUR, UROBILINOGEN, BILIRUBINUR, BLOODU, GLUCOSEU, KETONESU, AMORPHOUS Urine Culture: No components found for: CURINE Blood Culture: No components found for: CBLOOD, CFUNGUSBL Blood Culture from Central Line: No components found for: CBLOODLN * Victor Hugo Mendes RCP - 12/22/2022 7:23 AM EDT [facility] Respiratory Care Department Progress Note Comment or reasoning for refusal: Patient was seen in attempts to fulfill CPAP/BiPAP/AutoPAP order. Patient refused PAP therapy/studyat this time. Patient was educated on medical need and reasoning for physician order to ensure patient was making an informed medical decision. All of the patient's questions were answered at this time and patient was informed that if the patient changes their mind regarding wearing PAP to hit their call light or inform their nurse to contact Respiratory. A second, consecutive night of refusing PAP therapy/study results in order completion in the EMR. If future CPAP/BiPAP/AutoPAP therapy or study is indicated please place another order in the EMR and the assigned Respiratory Therapist will reattempt to fulfill orders. Reason for refusal: PT does not want to wear PAP Thank you for involving Respiratory in the care of this patient, * Manuelito Reyes, DIE SINKER APPRENTICE - EXPERIMENTAL WELDER - 12/22/2022 6:28 AM EDT Images from the original note were not included. Cardiothoracic Surgery/[facility] Progress Note PATIENT NAME: Jesus Alberto Guevara Jr. 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 Today he was transferred from [facility] due to a positive stress test with inferior WMA, EKG changes, t-wave inversions in the inferior leads. 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 His EF was 75% on LV gram and during the stress test was measured at 65% - Normal LVEDP. He does have CKD baseline creat of 1.42. Other labs are unremarkable. He did not get loaded with P2Y12 therapy at [place], he is on BB, asa, statin and has a PMH of stenting 10 years ago, HTN, HLD. Did have a TIA after quitting ASA at one time. He is a formerpipe-smoker and occasionally uses ETOH. He elected for CABG x [address] Nickerson - His EF is preserved and no significant Valve disease. He consented and went to surgery today and had CABG x 4. Surgery/Procedure: 12/20/22: Dr. Nickerson- CABG x4 Interval History: 12/22/22, POD# 02. Afebrile, NSR on tele, BP stable, on 3L NC. [place] and art line removed yesterday.Creatinine trending down. Patient having intermittent nausea, has not had BM. Pain tolerable. No acute issues overnight. Review of Systems Constitutional: Negative for chills, diaphoresis and fever. Respiratory: Negative for cough, shortness of breath and wheezing. Cardiovascular: Positive for chest pain. Negative for palpitations and leg swelling. Gastrointestinal: Positive for abdominal distention and nausea. Negative for abdominal pain and vomiting. Neurological: Negative for dizziness, syncope and light-headedness. Objective: CT output cc/24hrs: 370 (310/60) UO cc/24hrs: 820 Vitals: BP: 116/72, MAP (mmHg): 85, BP Method: Automatic Heart Rate: 76 Resp: 16 Temp: 37.1 C (98.8 F), Temp Source: Temporal BMI (Calculated): 32.39 BMP: Recent Labs 12/20/22 1242 12/21/22 0012 12/22/22 0127 NA 139 137 134* K 4.5 4.6 4.2 CL 111* 110* 107 CO2 21* 18* 22 BUN 21* 22* 23* CREATININE 1.41* 1.57* 1.36* CALCIUM 8.4 7.9* 8.0* MG 3.2* 2.4* 2.4* PHOS 3.1 -- -- CBC: Recent Labs 12/20/22 1242 12/21/22 0012 12/22/22 0127 WBC 7.3 10.3 11.6* HGB 10.2* 10.8* 10.8* HCT 31.0* 31.4* 32.1* PLT 87* 103* 107* MCV 88.4 86.8 87.5 RDW 13.6 13.7 14.4 INR: Recent Labs 12/20/22 1242 12/21/22 0012 12/22/22 0127 INR 1.3* 1.1 1.1 Physical Exam Vitals reviewed. Constitutional: General: He is not in acute distress. Appearance: He is not ill-appearing or diaphoretic. Cardiovascular: Rate and Rhythm: Normal rate and regular rhythm. Pulses: Normal pulses. Pulmonary: Breath sounds: No wheezing, rhonchi or rales. Comments: Shallow breaths, diminished in bases bilaterally. Abdominal: General: There is no distension. Palpations: Abdomen is soft. Comments: Chest tubes in place. Genitourinary: Comments: [place]. Skin: General: Skin is warm and dry. Capillary Refill: Capillary refill takes less than 2 seconds. Findings: No bruising or lesion. Comments: MSI well approximated. No redness, warmth or drainage noted. Neurological: General: No focal deficit present. Mental Status: He is alert and oriented to person, place, and time. Assessment: MVCAD Prior PCI of LAD CKD III HTN HLD Post operative Pulm Management: Normal Post-operative Course Post-operative Atrial Fibrillation: []Yes [x] No Acute blood loss anemia Plan: Patient Status: Telemetry Add metoprolol 12.5mg BID today. Continue aspirin and statin. Lasix 20mg BID. DC hydromorphone and oxy. -Switch to IV acetaminophen for 4 doses. -Tramadol PRN. Zofran and compazine for nausea. Add MOM to bowel regimen. -Consider suppositories and/or lactulose if no BM and still nauseated later today vs tomorrow AM. Will remove chest tubes. Remove olmedo. DVT prophy. PT/OT, progressive mobility. PT recs: IP rehab (12/18/22) Pulmonary hygiene: IS and Acapella. Wean O2 as able, goal SpO2 >92%. GI prophy: PO protonix DVT prophy:TEDs, SCDs, and Heparin SubQ Disposition: TBD. Central Line: [x]Yes [] No Arterial Line: []Yes [x] No Olmedo: [x]Yes [] No Restraints: []Yes [] No Patient discussed and plan of day developed from multidisciplinary rounds between Cardiothoracic Surgery (Cardiothoracic Surgeon, LUCHO) and Critical Care Attending Cardiac Core Medications: ASA, Statin, and BB EF: 55% 12/18/22 Blood Conservation: None noted in post-operative period Marine Radio Installer And Servicer: Dr. Khan ([facility]) Associated attestation - Octavia Wesley MD - 12/22/2022 11:04 AM EDT I have personally performed a [id number] diagnostic evaluation on this patient on date of service12/22/22. History, labs, imaging studies, and electronic medical record have been reviewed by me. This note documented by the []warehouse unloader [x]LUCHO reflects my history, exam, and medical decision making. I have reviewed and agree with the care plan. Changes were made in the orders as necessary. ROSdocumentation was reviewed and negative unless otherwise stated in HPI. Additional pertinent interval history, ROS, and physical exam findings: Complains of nausea, headache and intolerance to opiates. On 3lpm CXR personally reviewed- improved, stable post op changes., Assessment: MV CAD s.p. CABG CKD stage 3 Post op pulmonary management, normal post OP course, extubated in window HTN Dyslipidemia Acute blood loss anemia Obesity, Bmi 32 Plan: Remove chest tubes Start GDMT- BB metoprolol 12.5 BID OOB PT work Optimize pain control and bowel regimen Pulm hygeine, IS, OOB, acapella, wean off oxygen * hTu Sierra, OT - 12/21/2022 3:02 PM EDT Occupational Therapy Facility/Department: [facility] Occupational Therapy Initial Evaluation NAME: Jesus Alberto Guevara : 1940 Date of Service: 12/21/2022 Discharge Recommendations: IP Rehab (may progress to home) Assessment REQUIRES OT FOLLOW-UP: Yes Performance deficits / Impairments: Decreased functional mobility , Decreased ADL status, DecreasedROM, Decreased strength, Decreased safe awareness, Decreased cognition, Decreased endurance, Decreased balance, Decreased posture Assessment: OT eval completed. Pt presents with above deficits limiting functional indep. Pt is a falls and safety risk due to weakness, balance and cognition. Pt is currently not safe to retur nhomeand recommend IP REHAB. Pt may progress t ohome with assist . Cont OT to maximize indep and sfatey with ADL and mobility for safe discharge. Prognosis: Good Decision Making: Low Complexity Exam: [facility] Activity Tolerance Activity Tolerance: Patient limited by fatigue, Patient limited by pain Patient Diagnosis(es): The encounter diagnosis was CAD in [place] artery. has no past medical history on file. has no past surgical history on file. Restrictions Restrictions/Precautions Restrictions/Precautions: General Precautions, Surgical Protocols, Fall Risk Required Braces or Orthoses?: No Position Activity Restriction Sternal Precautions: No Pushing, No Pulling, 10# Lifting Restrictions Sternal Precautions: YES Other position/activity restrictions: chest tube x2, olmedo, PIV, tele. 2.5 O2 NC Vision/Hearing Vision: Within Functional Limits Vision Exceptions: Wears glasses for reading Hearing: Functional/adequate for paticipation in therapy Cognition/Orientation Overall Cognitive Status: Exceptions Arousal/Alertness: Delayed responses to stimuli Following Commands: Follows one step commands with repetition, Follows one step commands with increased time Attention Span: Attends with cues to redirect Memory: Decreased short term memory, Decreased recall of recent events Safety Judgement: Decreased awareness of need for assistance, Decreased awareness of need for safety Insights: Decreased awareness of deficits Initiation: Requires cues for some Sequencing: Requires cues for some Cognition Comment: pt did not recall sternal precautions from PT session earlier today. + confusionthis date and pt states I feel confused right now Overall Orientation Status: Within Functional Limits (except exact day) Subjective General Chart Reviewed: Yes Patient Assessed for Rehabilitation Services: Yes Family / Caregiver Present: No Diagnosis: Pt admitted with CAD, S/P CABG 12/20/22 Subjective Subjective: Pt reclined in bed, agreeable to OT kelsi. General Comments Comments: R hand dominant Patient Stated Goal: to go home Pain Assessment Pain Assessment: 0-10 Pain Score: 9 Pain Type: Acute pain Pain Location: Incision, Sternum Pain Orientation: Mid Pain Descriptors: Aching, Discomfort Pain Interventions: Repositioned, Ambulation/increased activity Social/Functional History Social/Functional History Lives With: Spouse Type of Home: (converted barn) Home Layout: Two level (bed on 2nd floor, bath on 1st floor, full flight with rail to 2nd.) Bathroom Shower/Tub: Walk-in shower Bathroom Toilet: Standard ADL Assistance: Independent Homemaking Assistance: Independent Homemaking Responsibilities: Yes Ambulation Assistance: Independent With device?: No Transfer Assistance: Independent Active Magazine Supervisor: Yes Additional Comments: can help Objective Gross Assessment: Yes AROM: Generally decreased, functional (3/4 shldr, distal WFL) PROM: (same as AROM) Strength: (shldr NT but at least 3-/5, distal at least 4-/5) Coordination: Generally decreased, functional Tone: Normal Sensation: Intact Observation/Palpation Posture: Fair Observation: sternal incision intact Edema: Mild edema in hands Balance Sitting Balance: Stand by assistance Standing Balance: Minimal assistance Functional Mobility Assist Level: Minimal assistance Functional Mobility Comments: Side steps to R with min assist toward HOB with therapist in front. ADL LE Dressing: Dependent/Total Additional Comments: Dependent to don slipper socks. Estimate dependent toileting, max assist bathing, mod assist UE ADL and min assist grooming. Bed mobility Supine to Sit: Moderate assistance Sit to Supine: Maximum assistance Scooting: Minimal assistance Comment: HOB elevated Transfers Sit to stand: Minimal assistance Stand to sit: Minimal assistance Transfer Comments: cues to follow sternal precautions Plan Times per Week: 5x Plan Weeks: 4 Current Treatment Recommendations: Strengthening, ROM, Balance Training, Functional Mobility Training, Endurance Training, Gait Training, Pain Management, Safety Education & Training, Patient/Caregiver Education & Training, Equipment Evaluation, Education, & procurement, Positioning, Self-Care / ADL, Home Management Training, Cognitive/Perceptual Training Safety Safety Devices in place: Yes Type of devices: No alarms engaged upon entry into room, Left in bed, Call light within reach, All fall risk precautions in place, Nurse notified Restraints Initially in place: No AM-PAC Score AM-PAC Inpatient Daily Activity Raw Score: 13 ADL Inpatient CMS G-Code Modifier: CL Goals Encounter Problems Encounter Problems (Active) Balance Patient will maintain dynamic standing balance for 10 minutes with modified independence in order to demonstrate decreased risk of falling. Start: 12/21/22 Expected End: 01/18/23 Dressings Lower Extremities Patient will dress lower body modif indep with AE PRN Start: 12/21/22 Expected End: 01/18/23 Grooming Patient will complete daily grooming tasks modif indep standing at sink Start: 12/21/22 Expected End: 01/18/23 OT Misc Modif indep item retrieval from cupboards at various heights Start: 12/21/22 Expected End: 01/18/23 Safety Patient will recall 3/3 and adhere to sternal precautions during all functional mobility and ADLs in order to demonstrate improved understanding and promote healing post op. Start: 12/21/22 Expected End: 01/18/23 Toileting Patient will complete toileting tasks at standard toilet with modified independence. Start: 12/21/22 Expected End: 01/18/23 Transfers Toilet transfer modif indep Start: 12/21/22 Expected End: 01/18/23 Education Education Given To: Patient Education Provided: OT Role, Plan of Care, Precautions, Transfer Training Education Method: Verbal, Demonstration Barriers to Learning: Cognition Education Outcome: Continued education needed Therapy Time Individual Co-treatment Time In 1420 Time Out 1445 Minutes 25 Timed Code Treatment Minutes: 10 Minutes (FA) Goals and/or treatment plan was established in collaboration with patient/family/other representatives. Patient's Occupational Therapy Plan of Care supervision is transferred to [facility] Occupational Therapist. Thu Sierra OTR/L * Tommie Armenta MD - 12/21/2022 11:57 AM EDT [facility] [address] [place], [place] [id number] Progress Note Assessment: Jesus Alberto Guevara Jr. is a 82 y.o. male with PMH including HTN, HLD, TIA, who presented from [facility] due to positive stress test with inferior WMA, EKG changes, had LHC done which showed MVCAD. Nephrology consulted for CKD. CKD- stage 3, recently Scr stable ~1.57 mg/dl -non-oliguric recently -S/P CABG doing well -Insulin gtt paused on assessment -Currently no pressors are on HTN- BP stable Volume- no overt fluid overload Acid/base- AGMA Plan: -monitor renal function, electrolytes -start LR 50 ml/hr for 12 hrs Tommie Armenta MD 12/21/2022 11:58 AM Subjective: Patient seen and examined today. We are following this patient for S/P CABG x [address] P[address] Nickerson - The intra -op phase was uneventful Sitting on chair NSR on tele, BP stable, extubated post-operatively and now on 5L NC. Complains of back pain/spasms this AM. Scheduled Meds:acetaminophen, 1,000 mg, Oral, q6h aspirin, 81 mg, Oral, Daily ceFAZolin, 2,000 mg, IntraVENous, q8h chlorhexidine, 15 mL, Mouth/Throat, BID heparin, 5,000 Units, SubCUTAneous, 2 times per day insulin lispro, 0-6 Units, SubCUTAneous, TID WC mupirocin, , Nasal, BID [START ON 12/22/2022] pantoprazole, 40 mg, Oral, qAM AC polyethylene glycol (PEG) 3350, 17 g, Oral, Daily rosuvastatin, 40 mg, Oral, Daily senna-docusate sodium, 2 tablet, Oral, Nightly Continuous Infusions:lactated ringers, 250 mL sodium chloride, 20 mL/hr, Last Rate: 20 mL/hr (12/20/22 1330) PRN Meds:PRN medications: albumin human, calcium gluconate, dextrose, dextrose, glucagon (rDNA), glucose, HYDROmorphone OR HYDROmorphone, lactated ringers, magnesium hydroxide, magnesium sulfate OR magnesium sulfate, methocarbamol, ondansetron ODT OR ondansetron, oxyCODONE OR oxyCODONE, potassium chloride OR potassium chloride (KCl) in 250 mL IVPB (peripheral line) OR potassium chloride (KCl) in 500 mL IVPB (peripheral line), potassium chloride CR Vitals: BP 96/66 Pulse 76 Temp 36.9 C (98.5 F) (Temporal) Resp 22 Ht 1.803 m (5' 11) Wt 105 kg (232 lb 2.3 oz) SpO2 96% PF 55 L/min BMI 32.38 kg/m BLOOD PRESSURE RANGE: Systolic (24hrs), Av , Min:96 , Max:125 ; Diastolic (24hrs), Av, Min:50, Max:67 24HR INTAKE/OUTPUT: Intake/Output Summary (Last 24 hours) at 12/21/2022 1158 Last data filed at 12/21/2022 0914 Gross per 24 hour Intake 1450 ml Output 2820 ml Net -1370 ml Physical exam: General: NAD, alert Chest: bilateral vesicular breath sounds Cardiac: S1, S2 Abdomen: soft SKIN: dry Extremities: no lower extremity edema Data: Labs: Recent Labs 12/20/22 0006 12/20/22 1241 12/20/22 1242 12/21/22 0012 WBC 7.3 -- 7.3 10.3 HGB 14.6 10.8 10.2* 10.8* HCT 42.9 -- 31.0* 31.4* MCV 86.1 -- 88.4 86.8 PLT 154 -- 87* 103* Recent Labs 12/20/22 0006 12/20/22 1242 12/21/22 0012 NA 138 139 137 K 4.1 4.5 4.6 CL 110* 111* 110* CO2 26 21* 18* GLUCOSE 93 128* 125* PHOS -- 3.1 -- MG -- 3.2* 2.4* BUN 23* 21* 22* CREATININE 1.58* 1.41* 1.57* Ionized Calcium: No components found for: IONCA Magnesium: Lab Results Component Value Date MG 2.4 (H) 12/21/2022 Phosphorus: Lab Results Component Value Date PHOS 3.1 12/20/2022 U/A: Lab Results Component Value Date COLORU Light Yellow 12/18/2022 CLARITYU Clear 12/18/2022 UROBILINOGEN Normal 12/18/2022 BLOODU Negative 12/18/2022 GLUCOSEU Normal 12/18/2022 KETONESU Negative 12/18/2022 Urine Culture: No components found for: CURINE Blood Culture: No components found for: CBLOOD, CFUNGUSBL Blood Culture from Central Line: No components found for: CBLOODLN * Octavia Vergara, PT - 12/21/2022 11:14 AM EDT Physical Therapy Facility/Department: [facility] Physical Therapy Initial Evaluation NAME: Jesus Alberto Guevara Jr. : 1940 Date of Service: 12/21/2022 Discharge Recommendations: IP Rehab (Pt hope to progress to home going with assist as needed.) PT Equipment Recommendations Other: tbd Assessment Requires PT Follow-Up: Yes Assessment: The pt is hospitalized s/p CABG secondary to CAD. He will benefit from therapy for the listed impairments and to improve his overall functional capacity. he is a fall risk a this time secondary to weakness, pain, and decreased endurance. Min assist was required for transfers and ambulation and rest breaks were needed with all activity secondary to pain and endurance limitations. Sternal precautions were reviewed and P and C exercises introduced as well as IS. Pt's hope is to progress to home going but if he left at this time IP REHAB would be recommended. If pt does return home then home PT and cardiopulmonary rehab would be beneficial. Performance Deficits/Impairments: Decreased functional mobility , Decreased endurance, Increased pain, Decreased ADL status, Decreased strength, Decreased posture, Decreased ROM Treatment Diagnosis: limited endurance Decision Making: Medium Complexity Barriers to Learning: none Treatment Initiated : one FA Barriers to Learning: none Activity Tolerance Activity Tolerance: Patient limited by endurance, Patient limited by pain Patient Diagnosis(es): The encounter diagnosis was CAD in [place] artery. has no past medical history on file. has no past surgical history on file. Restrictions Restrictions/Precautions Restrictions/Precautions: General Precautions, Surgical Protocols Required Braces or Orthoses?: No Position Activity Restriction Sternal Precautions: No Pushing, No Pulling, 10# Lifting Restrictions Sternal Precautions: sternal Other position/activity restrictions: chest tube, olmedo, catheter, PIV Vision/Hearing Vision: Impaired Vision Exceptions: Wears glasses for reading Hearing: Functional/adequate for paticipation in therapy Cognition/Orientation Overall Cognitive Status: WFL Overall Orientation Status: Within Functional Limits Subjective General Chart Reviewed: Yes Patient Assessed for Rehabilitation Services: Yes Family / Caregiver Present: Yes Diagnosis: CAD, s/p CABG Follows Commands: Within Functional Limits Subjective Subjective: Pt sitting up in chair and agreed to PT. Pt repoted elevated incisional pain but did not rate it. Pt also reported feeling foggy/slow with his thinking. 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 Objective AROM RLE (degrees) RLE AROM: WFL AROM LLE (degrees) LLE AROM : WFL AROM RUE (degrees) RUE General AROM: shoulder elevatioin observed to near 100 degrees visually and elbow and wrist is grossly WFL AROM LUE (degrees) LUE General AROM: shoulder elevation observed to 2/3, elbow and wrist grossly WFL Strength RLE Comment: 5/5 hip flexion, abd, add, quad, and hamstring, and DF and PF Strength LLE Comment: 5/5 hip flexion, abd, add, quad, and hamstring, and DF and PF Strength RUE Comment: 3/5 observed in available range Strength LUE Comment: 3/5 observed in available range Tone RLE RLE Tone: Normotonic Tone LLE LLE Tone: Normotonic Sensation Overall Sensation Status: (no numbness or tingling endorsed) Bed mobility Comment: NT pt up in chair Transfers Sit to Stand: Minimal Assistance Stand to sit: Minimal Assistance Comment: from chair 2 trials with PT, cues for sternal precautions. Ambulation Ambulation: Yes Ambulation 1 Surface 1: Level tile Device 1: (Nezzi) Assistance 1: Minimum assistance Quality of Gait Comment 1: decreased velocity, decreased step length, head down, flexed posture, Distance (ft) 1: 20 ft x2 Comments 1: pt reported pain and overall limited endurance. Balance Posture: Fair Sitting - Static: Good, - Sitting - Dynamic: Fair Standing - Static: Fair Standing - Dynamic: Fair Comments: Pt did sit at edge of chair unsupported with pillow for sternal precautions and was able to sit without use of a back rest for several minutes to perform the first 3 P+C exercises. Pt was able to stand with use of a Nezzie for one to two minutes with cues for sternal precautions and posture. Other exercises Other exercises?: Yes Other exercises 1: P and C exercises 1-3 for 5-6 reps, pain limited this date Other exercises 2: IS for 2 reps to 500 ml pain limited Plan Times per Week: 5-7 Plan Weeks: 3 Current Treatment Recommendations: Strengthening, ROM, Balance Training, Functional Mobility Training, Transfer Training, ADL/Self-care Training, Stair training, Gait Training, Endurance Training, Equipment Evaluation, Education, & procurement, Safety Education & Training, Patient/CaregiverEducation & Training Safety Safety Devices Safety Devices in Place: Yes Type of Devices: Left in chair, Call light within reach, No alarms engaged upon entry into room ( in room) Restraints Restraints Initially in Place: No Outcomes Score AM-PAC Score AM-PAC Inpatient Mobility Raw Score: 10 Mobility Inpatient CMS G-Code Modifier: CL Goals Encounter Problems Encounter Problems (Active) Cardiac Patient will perform bed mobility with independence in order to improve independence and prepare for out of bed mobility. Start: 12/21/22 Expected End: 01/11/23 Patient will complete sit to stand transfer with independence to LRD in order to improve safety andprepare for out of bed mobility. Start: 12/21/22 Expected End: 01/11/23 Patient will ambulate 300 feet or ambulate 5 minutes with independence with RPE of 14 or lower. Start: 12/21/22 Expected End: 01/11/23 Patient will ascend and descend 10 # stairs with independence rail for balance only. Start: 12/21/22 Expected End: 01/11/23 Patient will be independent with P&C exercises. Start: 12/21/22 Expected End: 01/11/23 Patient will be independent with managing secretions and home walking program. Start: 12/21/22 Expected End: 01/11/23 Education Education Given To: Patient, Family Education Provided: Goals, PT Role, Plan of Care, Precautions, Home Exercise Program Education Provided Comments: sternal precuations, autosplinting Education Method: Verbal, Demonstration Barriers to Learning: None Education Outcome: Verbalized understanding, Continued education needed Therapy Time Individual Co-treatment Time In 1015 (one eval mod complex, one FA) Time Out 1050 Minutes 35 Timed Code Treatment Minutes: 8 Minutes PT wore mask and gloves throughout entire session with patient. Patient s Physical Therapy Plan of Care supervision is transferred to [facility] Rehab Department Physical Therapist. Octavia Vergara, PT * Mily Gtz, DIE SINKER APPRENTICE - EXPERIMENTAL WELDER - 12/21/2022 9:43 AM EDT Department of Internal Medicine Division of Endocrinology, Diabetes, & Metabolism Endocrinology Note Patient Name: Jesus Alberto Guevara Jr. : 1940 AGE: 82 y.o. Room/Bed: [facility] A Admission Date: 12/18/2022 Visit Date: 12/21/2022 Reason for Endocrine Consult: post op heart Provider/Team Requesting Consult: CTS PCP: JAZLYN ZAYAS, DO Outpt Safety Compliance Specialist: No ASSESSMENT: Stress hyperglycemia Cabg CAD/HTN/HLD KASSANDRA on CKD PLAN: Stop insulin gtt Tx to humalog low scale only meals ICU goal <180 GMF goal <150 POCT ACHS Hypoglycemia per protocol Carb controlled diet ANTICIPATED ENDOCRINE HOME GOING RECOMMENDATIONS: Optimized for Discharge from Endocrine standpoint: No Home Going Endocrine Rx Recommendations-- none Outpt Follow Up-- pcp SUBJECTIVE/HPI: CHIEF COMPLAINT: No chief complaint on file. Cabg No noted hx of diabetes noted Bgl 133-125-109 Resting in chair working with PT Awake VSS, 02 NC C/o incisional pain - just had pain meds CT in place Family in room Denies hx of dm Ate small breakfast Does have some NV from ambulating w PT Spoke to nursing and CTS Insulin gtt off most of night- on now at 1u/hr No pressors on Type of DM: na Onset of DM: na Home DM Medication Regimen: na DM control (last A1c/glucose data): Lab Results Component Value Date HGBA1C 5.4 12/18/2022 Review of Systems All other systems reviewed and are negative. ROS negative except for those mentioned in HPI. OBJECTIVE: Vitals: 12/21/22 0700 12/21/22 0723 12/21/22 0800 12/21/22 0900 BP: 105/67 96/66 BP Location: Patient Position: Pulse: 77 77 76 Resp: 24 22 Temp: 36.9 C (98.5 F) TempSrc: Temporal SpO2: 97% 97% 96% Weight: Height: 5' 11 (1.803 m) PF: Physical Exam Vitals and nursing note reviewed. Constitutional: General: He is awake. He is not in acute distress. Appearance: He is ill-appearing. He is not toxic-appearing. HENT: Head: Normocephalic and atraumatic. Cardiovascular: Rate and Rhythm: Normal rate. Pulmonary: Effort: Pulmonary effort is normal. Abdominal: Palpations: Abdomen is soft. Skin: General: Skin is warm and dry. Comments: Intact incision Neurological: Mental Status: He is alert and oriented to person, place, and time. Psychiatric: Mood and Affect: Mood normal. Behavior: Behavior is cooperative. 24 hour intake/output: Intake/Output Summary (Last 24 hours) at 12/21/2022 0944 Last data filed at 12/21/2022 09 Gross per 24 hour Intake 2902 ml Output 3120 ml Net -218 ml Diet: Adult diet Regular; 5 carb choices (75 gm/meal) Medications (as per EMR): HomeMeds: @MEDHMEDS@ Scheduled Meds:acetaminophen, 1,000 mg, Oral, q6h aspirin, 81 mg, Oral, Daily ceFAZolin, 2,000 mg, IntraVENous, q8h chlorhexidine, 15 mL, Mouth/Throat, BID heparin, 5,000 Units, SubCUTAneous, 2 times per day mupirocin, , Nasal, BID [START ON 12/22/2022] pantoprazole, 40 mg, Oral, qAM AC polyethylene glycol (PEG) 3350, 17 g, Oral, Daily rosuvastatin, 40 mg, Oral, Daily senna-docusate sodium, 2 tablet, Oral, Nightly Continuous Infusions:insulin regular, 1-50 Units/hr, Last Rate: Stopped (12/21/22 0914) lactated ringers, 250 mL sodium chloride, 20 mL/hr, Last Rate: 20 mL/hr (12/20/22 1330) PRN Meds:PRN medications: albumin human, calcium gluconate, dextrose, dextrose, glucagon (rDNA), glucose, HYDROmorphone OR HYDROmorphone, lactated ringers, magnesium hydroxide, magnesium sulfate OR magnesium sulfate, ondansetron ODT OR ondansetron, oxyCODONE OR oxyCODONE, potassium chloride OR potassium chloride (KCl) in 250 mL IVPB (peripheral line) OR potassium chloride (KCl) in 500 mL IVPB (peripheral line), potassium chloride CR Diagnostic Workup: I reviewed pertinent Laboratory results, Radiographic results, and Other Clinical Notes at the timeof today's encounter. Labs: No components found for: LABA1C No components found for: EAG Lab Results Component Value Date NA 137 12/21/2022 K 4.6 12/21/2022 CL 110 (H) 12/21/2022 CO2 18 (L) 12/21/2022 BUN 22 (H) 12/21/2022 CREATININE 1.57 (H) 12/21/2022 GLUCOSE 125 (H) 12/21/2022 CALCIUM 7.9 (L) 12/21/2022 No results found for: CHLPL, CHOL No results found for: TRIG No results found for: HDL No results found for: LDLCALC No results found for: VLDL No results found for: CHOLHDLRATIO No results found for: [id number] Lab Results Component Value Date TSH 0.804 12/18/2022 Radiology reportsas per the Radiologist Radiology: ECG 12 lead Result Date: 12/19/2022 Sinus bradycardia Nonspecific T abnormalities, lateral leads Electronically Signed On 12-19-2022 9:21:36 [address]T by Nathan Al[address] CT chest wo IV contrast Result Date: 12/19/2022 Patient Name: [facility] ALB[facility]UE[facility] 1940 [id number] Exam Date/Time: 12/18/2022 21:41 Procedure: CT CHEST WO IV CONTRAST Ordering Provider: REYES KYLE Reason For Exam: Aortic aneurysm, known or suspected CLINICAL INFORMATION: Positive stress test. ECG changes. Coronary artery disease. Planned CABG. 1 mm axial cuts are obtained through the chest without IV contrast. Dose reduction was employed with automated exposure control. There are no comparison studies at this institution. FINDINGS: The heart size is normal. The ascending aorta and arch are normal in caliber. The lumen cannot be evaluated on this unenhanced scan. A small amount of fluid is present about the aortic root. However, this is thought to reside in the pericardial recess. There is no evidence of dissection or leak. Coronary arterial calcifications are most pronounced in the left anterior descending coronary artery. There is no mediastinal lymphadenopathy. The lungs arefree of infiltrate or pleural effusion. A well-defined smooth 0.6 cm nodule is present in the rightmiddle lobe (image #175). A 0.4 cm nodule is present in the periphery the right upper lobe (image #125). Both are too small to further characterize. Upper cuts of the abdomen included on the examination are grossly normal on this unenhanced scan. 1. The ascending aorta is normal in caliber. 2. Coronary arterial calcifications most pronounced inthe LAD. 3. Right upper and middle lobe lung nodules. These are too small to further characterize. In a low risk patient (i.e. minimal or absent history of smoking and no other known risk factors), afollow-up CT is recommended in 12 months. If the patient is of higher risk, a follow-up CT is recommended in approximately 6 months. If desired, this could again be performed without IV contrast. Report Dictated on Electronically Signed By: Andres Dias Electronically Signed Date/Time: 12/19/2022 10:17 AM EDT XR chest 1 view Result Date: 12/19/2022 Patient Name: JESUS ALBERTO [facility]UEVARA [facility] 1940 [id number] Exam Date/Time: 12/19/2022 07:53 Procedure: XR CHEST 1 VIEW Ordering Provider: EMERSON MATTHEW Reason For Exam: CORONARY ARTERIOSCLEROSIS CHEST (Frontal View) History: Respiratory abnormality, coronary artery disease Comparison chest x-ray: None available Findings: Frontal chest view shows mild chronic lung changes with small linear left basilar atelectasis without acute infiltrate or congestion. The heart is normal in size. Aorta appears tortuous. There is no mediastinal widening or pleural effusion. No acute pulmonary process. Report Dictated on Electronically Signed By:Eun Burleson Electronically Signed Date/Time: 12/19/2022 9:03 AM EDT Transthoracic echocardiogram (TTE) complete with contrast, bubble, strain, and 3D PRN Result Date: 12/19/2022 Left Ventricle: Left ventricle size is normal. Mildly increased wall thickness. Normal left ventricular systolic function. EF by 2D Simpsons Biplane is 69%. See diagram for wall motion findings. Right Ventricle: Right ventricle size is normal. Normal systolic function. Aortic Valve: Mild to moderate (1-2+) regurgitation. Mitral Valve: Mild (1+) regurgitation. Vascular US carotid artery duplex bilateral Result Date: 12/18/2022 <50% stenosis in the right internal carotid artery. Mild and calcific plaque (proximal) in the right internal carotid artery. <50% stenosis in the left internal carotid artery. Moderate, heterogeneous and calcific plaque (proximal) in the left internal carotid artery. Normal antegrade flow involving the right vertebral artery. Normal antegrade flow involving the left vertebral artery. Vascular US lower extremity vein mapping for bypass bilateral Result Date: 12/18/2022 Vessel diameters as noted in the table below. History/Other: Past Medical History: History reviewed. No pertinent past medical history. Past Surgical History: History reviewed. No pertinent surgical history. Allergy(ies): No Known Allergies Family History: No family history on file. Social History: Portions of the information within this encounter were entered using an electronic dictation system. Best attempts were made to edit/proofread the information prior to note completion. Despite the review of information, some errors may remain. If there are questions related to the information contained within the note please contact the signing physician directly. I spent 18 minutes with the pt which involved coordination of care, medical evaluation, review of records, and/or counseling of the pt regarding his/her condition/disease state/prognosis on the date of this note. Associated attestation - Greg Garcia MD - 12/21/2022 2:34 PM EDT I performed a history and physical examination of the patient. I have reviewed the patient's chart including pertinent history, medications, labs, radiology, and other reports. I reviewed the resident/LUCHO's note, agree with the documented findings and plan of care (with modifications noted if any),and discussed the management plan. I have performed a substantive portion of the the medical decision making. Pt slightly confused from pain medications. at bedside. Has not eaten much. Only water and a little applesauce. No n/v. BG stable on minimal insulin from drip (0-1 unit/hr). BP 96/66 Pulse 76 Temp 36.6 C (97.9 F) (Temporal) Resp 22 Ht 5' 11 (1.803 m) Wt 232 lb 2.3 oz (105 kg) SpO2 96% PF 55 L/min BMI 32.38 kg/m Somnolent, not in distress, on O2 per NC, RRR, chest incision intact, decreased breath sounds, +chest tubes, abdomen soft, distended, non-tender, no edema, +bandage on LLE, oriented X1. Dx: Stress hyperglycemia. CAD s/p CABG. CKD 3. Plan: - will transition to subcutaneous insulin with Humalog low dose SS TID - continue blood glucose monitoring - discussed goals of therapy with pt and - patient will unlikely require any pharmacotherapy on discharge for hyperglycemia - will follow Total time 20 minutes which include review of records, counseling, management, and coordination of care as documented in note. * Manuelito Reyes, NARAYAN - EXPERIMENTAL WELDER - 12/21/2022 5:49 AM EDT Images from the original note were not included. Cardiothoracic Surgery/[facility] Progress Note PATIENT NAME: Jesus Alberto Guevara Jr. 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 Today he was transferred from [facility] due to a positive stress test with inferior WMA, EKG changes, t-wave inversions in the inferior leads. 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 His EF was 75% on LV gram and during the stress test was measured at 65% - Normal LVEDP. He does have CKD baseline creat of 1.42. Other labs are unremarkable. He did not get loaded with P2Y12 therapy at [place], he is on BB, asa, statin and has a PMH of stenting 10 years ago, HTN, HLD. Did have a TIA after quitting ASA at one time. He is a formerpipe-smoker and occasionally uses ETOH. He elected for CABG x [address] Nickerson - His EF is preserved and no significant Valve disease. He consented and went to surgery today and had CABG x 4. Surgery/Procedure: 12/20/22: Dr. Nickerson- CABG x4 Interval History: 12/21/22, POD# 01: Afebrile, NSR on tele, BP stable, extubated post-operatively and now on 5L NC. Complains of back pain/spasms this AM. A-line: Arterial Line BP 1: 135/56 Invasive Hemodynamic Monitoring PAP: 35/11 PAP (Mean): 20 mmHg CVP (mmHg): 8 mmHg CO (L/min): 6.16 L/min CI (L/min/m2): 2.77 L/min/m2 SVR (dyne*sec)/cm5: 935 (dyne*sec)/cm5 Review of Systems Constitutional: Negative for chills, diaphoresis and fever. Respiratory: Negative for cough, shortness of breath and wheezing. Cardiovascular: Positive for chest pain. Negative for palpitations and leg swelling. Gastrointestinal: Negative for abdominal distention, abdominal pain, nausea and vomiting. Neurological: Negative for dizziness, syncope and light-headedness. Objective: CT output cc/24hrs: 645 UO cc/24hrs: 1,560 Vitals: BP: 125/51, MAP (mmHg): 71, BP Method: Arterial line Heart Rate: 78 Resp: 26 Temp: 37.3 C (99.1 F), Temp Source: Core BMI (Calculated): 31.39 BMP: Recent Labs 12/20/22 0006 12/20/22 1242 12/21/22 0012 NA 138 139 137 K 4.1 4.5 4.6 CL 110* 111* 110* CO2 26 21* 18* BUN 23* 21* 22* CREATININE 1.58* 1.41* 1.57* CALCIUM 8.2* 8.4 7.9* MG -- 3.2* 2.4* PHOS -- 3.1 -- CBC: Recent Labs 12/20/22 0006 12/20/22 1241 12/20/22 1242 12/21/22 0012 WBC 7.3 -- 7.3 10.3 HGB 14.6 10.8 10.2* 10.8* HCT 42.9 -- 31.0* 31.4* PLT 154 -- 87* 103* MCV 86.1 -- 88.4 86.8 RDW 13.6 -- 13.6 13.7 INR: Recent Labs 12/20/22 1242 12/21/22 0012 INR 1.3* 1.1 Physical Exam Vitals reviewed. Constitutional: General: He is not in acute distress. Appearance: He is not ill-appearing or diaphoretic. Cardiovascular: Rate and Rhythm: Normal rate and regular rhythm. Pulses: Normal pulses. Pulmonary: Breath sounds: No wheezing, rhonchi or rales. Comments: Shallow breaths, diminished in bases bilaterally. Abdominal: General: There is no distension. Palpations: Abdomen is soft. Comments: Chest tubes in place. Genitourinary: Comments: Olmedo. Skin: General: Skin is warm and dry. Capillary Refill: Capillary refill takes less than 2 seconds. Findings: No bruising or lesion. Comments: MSI well approximated. No redness, warmth or drainage noted. Neurological: General: No focal deficit present. Mental Status: He is alert and oriented to person, place, and time. Assessment: MVCAD Prior PCI of LAD CKD III HTN HLD Post operative Pulm Management: Normal Post-operative Course Post-operative Atrial Fibrillation: []Yes [x] No Acute blood loss anemia Plan: Patient Status: ICU Remove [place] and arterial line. Start low dose aspirin and statin. -No BB yet, BP on lower side. Will add when BP can tolerate. Advance diet, encourage PO intake. Add robaxin for back spasms. Switch PRN morphine to dilaudid d/t elevated creatinine. Heparin injections for DVT prophy. Monitor daily labs. -Replace electrolytes per PRN protocols. Chest tubes to water seal once up to chair. Bowel regimen. PT/OT, progressive mobility. PT recs: Will need evaluated. Pulmonary hygiene: IS and Acapella. Wean O2 as able, goal SpO2 >92%. GI prophy: IV protonix DVT prophy:TEDs, SCDs, and Heparin SubQ Disposition: TBD. Central Line: [x]Yes [] No Arterial Line: [x]Yes [] No Olmedo: [x]Yes [] No Restraints: []Yes [] No Patient discussed and plan of day developed from multidisciplinary rounds between Cardiothoracic Surgery (Cardiothoracic Surgeon, LUCHO) and Critical Care Attending Cardiac Core Medications: ASA, Statin, and No BB due to hypotension EF: 55% 12/18/22 Blood Conservation: None noted in post-operative period Marine Radio Installer And Servicer: Dr. Khan ([facility]) Associated attestation - Octavia Wesley MD - 12/21/2022 9:19 AM EDT I have personally performed a [id number] diagnostic evaluation on this patient on date of service12/21/22. History, labs, imaging studies, and electronic medical record have been reviewed by me. This note documented by the []warehouse unloader [x]LUCHO reflects my history, exam, and medical decision making. I have reviewed and agree with the care plan. Changes were made in the orders as necessary. ROSdocumentation was reviewed and negative unless otherwise stated in HPI. Additional pertinent interval history, ROS, and physical exam findings: Off all drips, up to chair. Doing well. Assessment: MV CAD s.p. CABG CKD stage 3 Post op pulmonary management, normal post OP course, extubated in window HTN Dyslipidemia Acute blood loss anemia Obesity, Bmi 32 Plan: De-line Start GDMT OOB PT work Optimize pain control Pulm hygeine, IS, OOB, acapella, wean off oxygen * Maribel Andrade RCP - 12/20/2022 10:19 PM EDT [facility] Respiratory Care Department Progress Note Comment or reasoning for refusal: Patient was seen in attempts to fulfill CPAP/BiPAP/AutoPAP order. Patient refused PAP therapy/studyat this time. Patient was educated on medical need and reasoning for physician order to ensure patient was making an informed medical decision. All of the patient's questions were answered at this time and patient was informed that if the patient changes their mind regarding wearing PAP to hit their call light or inform their nurse to contact Respiratory. A second, consecutive night of refusing PAP therapy/study results in order completion in the EMR. If future CPAP/BiPAP/AutoPAP therapy or study is indicated please place another order in the EMR and the assigned Respiratory Therapist will reattempt to fulfill orders. Reason for refusal: pt stated he does not wear one at home and doesn't want to wear one here Thank you for involving Respiratory in the care of this patient, * Tommie Armenta MD - 12/20/2022 2:35 PM EDT [facility] [place] [address] [place] [address] Progress Note Assessment: Jesus Alberto Guevara . is a 82 y.o. male with PMH including HTN, HLD, TIA, who presented from [facility] due to positive stress test with inferior WMA, EKG changes, had LHC done which showed MVCAD. Nephrology consulted for CKD. CKD- stage 3, recently Scr stable ~1.4mg/dl -non-oliguric recently -S/P CABG doing well -Insulin gtt paused on assessment -On propofol gtt -Currently no pressors are on HTN- BP stable Volume- no overt fluid overload Acid/base- appears compensated on recent value Plan: -monitor renal function, electrolytes Tommie Armenta MD 12/20/2022 2:35 PM Subjective: Patient seen and examined today. We are following this patient for S/P CABG x [address] Nickerson - The intra -op phase was uneventful Scheduled Meds:HYDROmorphone, , , acetaminophen, 1,000 mg, Oral, q6h [Held by provider] aspirin, 81 mg, Oral, Daily [Held by provider] carvedilol, 6.25 mg, Oral, BID WC ceFAZolin, 2,000 mg, IntraVENous, q8h chlorhexidine, 15 mL, Mouth/Throat, BID chlorhexidine, 15 mL, Mouth/Throat, BID famotidine, 20 mg, Oral, BID HYDROmorphone, 1 mg, IntraVENous, Once melatonin, 3 mg, Oral, Nightly mupirocin, , Nasal, BID polyethylene glycol (PEG) 3350, 17 g, Oral, Daily [Held by provider] rosuvastatin, 40 mg, Oral, Daily senna-docusate sodium, 2 tablet, Oral, Nightly Continuous Infusions:dexmedeTOMIDine, 0.1-1.5 mcg/kg/hr EPINEPHrine, 0.01-0.2 mcg/kg/min fentaNYL, 25-200 mcg/hr insulin regular, 1-50 Units/hr, Last Rate: Stopped (12/20/221329) lactated ringers, 250 mL norepinephrine, 0.01-3.3 mcg/kg/min propofol, 5-50 mcg/kg/min, Last Rate: Stopped (12/20/221329) sodium chloride, 20 mL/hr, Last Rate: 20 mL/hr (12/20/22 1330) PRN Meds:PRN medications: acetaminophen OR acetaminophen OR acetaminophen, albumin human, calcium gluconate, dextrose, dextrose, EPINEPHrine, glucagon (rDNA), glucose, lactated ringers, magnesium hydroxide, magnesium sulfate OR magnesium sulfate, meperidine, morphine sulfate OR morphine sulfate, norepinephrine, ondansetron ODT OR ondansetron, ondansetron ODT OR ondansetron, oxyCODONE OR oxyCODONE, oxyCODONE, polyethylene glycol (PEG) 3350, potassium chloride OR potassium chloride (KCl) in 250 mL IVPB (peripheral line) OR potassium chloride (KCl) in 500 mL IVPB (peripheral line), [START ON 12/21/2022] potassium chloride CR Vitals: BP (!) 146/99 Pulse 81 Temp 37.6 C (99.6 F) (Temporal) Resp 13 Ht 1.803 m (5' 11) Wt 102kg (225 lb) SpO2 97% BMI 31.38 kg/m BLOOD PRESSURE RANGE: Systolic (24hrs), Av , Min:135 , Max:147 ; Diastolic (24hrs), Av, Min:75, Max:99 24HR INTAKE/OUTPUT: Intake/Output Summary (Last 24 hours) at 12/20/2022 1435 Last data filed at 12/20/2022 1400 Gross per 24 hour Intake 2942 ml Output 1605 ml Net 1337 ml Physical exam: Intubated sedated Data: Labs: Recent Labs 12/19/22 0616 12/20/22 0006 12/20/22 1241 12/20/22 1242 WBC 7.4 7.3 -- 7.3 HGB 14.5 14.6 10.8 10.2* HCT 42.8 42.9 -- 31.0* MCV 86.2 86.1 -- 88.4 PLT 154 154 -- 87* Recent Labs 12/19/22 0616 12/20/22 0006 12/20/22 1242 NA 137 138 139 K 4.3 4.1 4.5 CL 109* 110* 111* CO2 24 26 21* GLUCOSE 94 93 128* PHOS -- -- 3.1 MG -- -- 3.2* BUN 18 23* 21* CREATININE 1.29* 1.58* 1.41* Ionized Calcium: No components found for: IONCA Magnesium: Lab Results Component Value Date MG 3.2 (H) 12/20/2022 Phosphorus: Lab Results Component Value Date PHOS 3.1 12/20/2022 U/A: Lab Results Component Value Date COLORU Light Yellow 12/18/2022 CLARITYU Clear 12/18/2022 UROBILINOGEN Normal 12/18/2022 BLOODU Negative 12/18/2022 GLUCOSEU Normal 12/18/2022 KETONESU Negative 12/18/2022 Urine Culture: No components found for: CURINE Blood Culture: No components found for: CBLOOD, CFUNGUSBL Blood Culture from Central Line: No components found for: CBLOODLN * Consuelo Harding DTR - 12/20/2022 9:16 AM EDT Nutrition rescreen completed. Patient referred to the Dietitian. KASSANDRA on CKD. documented in this [facility]05-30-2023 Hospital course Narrative* Phillip Jo APRN - EXPERIMENTAL WELDER - 12/25/2022 10:55 AM EDT Images from the original note were not included. Discharge Summary: Cardiothoracic Surgery Jesus Alberto MondragonAnne-Marie Guevara Jr., 82 y.o., 1940 ADMIT DATE: 12/18/2022 DISCHARGE DATE: 12/25/2022 DISCHARGING SURGEON: Humza Nickerson MD, Office Number: [phone] PRIMARY CARE PHYSICIAN: JAZLYN ZAYAS DO TREATMENT TEAM: Marine Radio Installer And Servicer: Dr. 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 Today he was transferred from [facility] due to a positive stress test with inferior WMA, EKG changes, t-wave inversions in the inferior leads. 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 His EF was 75% on LV gram and during the stress test was measured at 65% - Normal LVEDP. He does have CKD baseline creat of 1.42. Other labs are unremarkable. He did not get loaded with P2Y12 therapy at [facility], he is on BB, asa, statin and has a PMH of stenting 10 years ago, HTN, HLD. Did have a TIA after quitting ASA at one time. He is a former pipe-smoker and occasionally uses ETOH. He elected for CABG x [address] Nickerson - His EF is preserved and no significant Valve disease. He consented and went to surgery today and had CABG x 4. DIAGNOSTICS: BP 121/76 (BP Location: Left arm, Patient Position: Lying) Pulse 68 Temp 36.8 C (98.2 F) (Temporal) Resp 18 Ht 5' 11 (1.803 m) Wt 221 lb 11.2 oz (101 kg) SpO2 96% PF 55 L/min BMI 30.92 kg/m Recent Labs 12/23/22 0012 12/24/22 0000 12/25/22 0041 CREATININE 1.49* 1.47* 1.55* HGB 11.1* 11.3* 11.9* PLT 133* 171 166 WBC 11.3* 10.3 8.0 INR 1.0 -- -- NA 134* 134* 134* K 4.0 3.8 3.4* DISCHARGE DIAGNOSES: MVCAD Prior PCI of LAD CKD III HTN HLD Post operative Pulm Management: Normal Post-operative Course Post-operative Atrial Fibrillation: [x]Yes [] No Acute blood loss anemia/consumptive thrombocytopenia DISCHARGE MEDICATIONS: Medication List START taking these medications * amiodarone 200 MG tablet Commonly known as: Pacerone Take 2 tablets (400 mg) by mouth 2 times daily for 14 days. * amiodarone 200 MG tablet Commonly known as: Pacerone Take 1 tablet (200 mg) by mouth daily. Do not start before January 09, 2023. Start taking on: January 09, 2023 aspirin 81 MG EC tablet Take 1 tablet (81 mg) by mouth daily. Do not start before December 26, 2022. Start taking on: December 26, 2022 metoprolol tartrate 25 MG tablet Commonly known as: Lopressor Take 1 tablet (25 mg) by mouth 2 times daily. pantoprazole 40 MG EC tablet Commonly known as: ProtoNix Take 1 tablet (40 mg) by mouth every morning (before breakfast). Do not crush, chew, or split. Takefor one month Do not start before December 26, 2022. Start taking on: December 26, 2022 rosuvastatin 40 MG tablet Commonly known as: Crestor Take 1 tablet (40 mg) by mouth daily. Do not start before December 26, 2022. Start taking on: December 26, 2022 traMADol 50 MG tablet Commonly known as: Ultram Take 0.5 tablets (25 mg) by mouth every 6 hours as needed for severe pain (7-10) (Acute post surgical pain) for up to 5 days. * This list has 2 medication(s) that are the same as other medications prescribed for you. Read thedirections carefully, and ask your doctor or other care provider to review them with you. Where to Get Your Medications These medications were sent to [facility] [address] [place] [address] Hours: Saturday to Saturday 10 am to 6 pm amiodarone 200 MG tablet amiodarone 200 MG tablet aspirin 81 MG EC tablet metoprolol tartrate 25 MG tablet pantoprazole 40 MG EC tablet rosuvastatin 40 MG tablet traMADol 50 MG tablet *The patient's OARRS report was obtained and reviewed.* I explained to Jesus Alberto Guevara Jr. that narcotic pain medications have addictive potential and should only be taken for acute post operative surgical pain. I also explained that narcotic/opioid medication should not be taken to help sleep as they are only intended to treat pain. In addition the patient needs to avoid driving or taking other narcotics, anxiolytics or consuming alcohol or using street drugs while they are taking the narcotic because serious side effects including can occur. I discussed the side effects that can occur when taking a narcotic alone including but not limited to: nausea, vomiting, constipation and drowsiness.I told the patient that if they have any reactions to the medication or any percieved problems with the medication, they are to stop the medication and call me. DIET: Adult diet Regular; Low Sodium (2 gm); 5 carb choices (75 gm/meal) BMI CLASSIFICATION:Obese (BMI 30.0-39.9) ACTIVITY: activity as tolerated, strict post-sternotomy/post-thoracotomy sternal precautions as outlined in the home going instructions, and no driving or operating heavy machinery until released by provider STRICT POST-STERNOTOMY/POST-THORACOTOMY PRECAUTIONS OUTLINED IN THE HOME GOING INSTRUCTIONS FOLLOW UP: CORE CARDIAC MEDICATIONS PRESCRIBED AT DISCHARGE: Beta-jonathan prescribed at discharge: [x] Yes [] No - reason why: ACEi or ARB prescribed at discharge: [] Yes [x] No - reason why: EF greater than 40 Statin prescribed at discharge: [x] Yes [] No - reason why: Anti-platelet agent prescribed at discharge: [x] Yes [] No - reason why: If yes, type: ASA Post-operative Atrial Fibrillation: [x]Yes [] No OAC: [] Yes [x] No Initial Post-op RBC transfusion date/reason: none noted during post-operative course Chronic Lung Disease: Unknown DISPOSITION: Home with Home Assist A copy of the discharge instructions which included the medications at the time of discharge, follow-up appointments, phone numbers to call with questions, activity, restrictions, and limitations wasprovided to the patient or their family. We greatly appreciate the opportunity to participate in the care of your patient. If you have any additional questions or concerns regarding any aspects of their care or management please do not hesitate to contact us. SIGNED: NARAYAN Young CNP 12/25/2022, 10:55 AM documented in this [facility]05-30-2023 Hospital Discharge instructions* Discharge Instructions* NARAYAN Young CNP - 12/25/2022 10:40 AM EDT Images from the original note were not included. [facility] Group: Cardiothoracic Surgery [address] [facility] [place] [address] [facility] #[phone] Notify us if the following occur - Increased tenderness, redness, or swelling of your incisions. - Any drainage from the chest incision (clear or pink drainage from the leg incision or chest tube site is common). - Angina symptoms like those you had before surgery - Sharp pain in chest, neck or shoulder that is worse when taking a deep breath - Persistent fever greater than 100 degrees F or 38 degrees C - Flu-like symptoms-chills, aches, fever, increased fatigue - Heart rate faster than 150 beats/minute with shortness of breath or new irregular heart rate. - Any unusual bleeding - Shortness of breath not relieved by rest - Weight gain of three pounds in one day or five pounds over one week Activity Instructions - Sternal Precautions for 6 weeks - Do not lift, push, or pull anything heavier than 10 pounds for 6 weeks (a gallon of milk weighs 8pounds). - Do not drive until you have been given permission by your surgeon/provider and until you are off narcotic/opioid pain medication - It is ok to sleep on your side if you prop pillows to support your back. Do not sleep on your stomach. - Walk at least 4 times a day, start with 5 minute intervals, increase minutes walked each day. Do not walk on a treadmill - Balance rest and activity during your recovery - Use the stairs, but go slowly, Use the handrail for balance but do not pull yourself up with yourarms. - Shower daily. Do not take your heart medication right before you shower. You could become lightheaded from your blood pressure and heart medication. Always have someone nearby to assist you. - Do not take a tub bath or use a hot tub until all incision are completely healed (no scab). - Put maicol hose on in AM and remove at bedtime. Elevate your feet above level of heart when you are sitting. - Cough and deep breathe and use incentive spirometer every hour (10x/hour while awake for two weeks). Other Instructions - Weigh yourself daily at the same time (after you urinate but before breakfast) - Keep a record of your daily weight, and bring to your first post op office visit - Take all medications as prescribed. Bring all your medication bottles to any follow up office visit Incision Care - Wash your sternal incision with anti-bacterial soap and warm water. Pat dry, and leave open to air. Do not use any lotions, or powders, or ointments. * Discharge Instr - Other Orders* Elaine Madrigal RN - 12/25/2022 12:10 PM EDT Discharging to Facility/ Agency Name: [facility] Address: [address] [place] [address] documented in this encounterSOhioHealth Nelsonville Health [id number] Plan of care note* Care Plan - Eugenia Ly RN - 12/24/2022 2:24 PM EDT The patient is Moderately Stable - Low risk of patient condition declining or worsening The patient's goals for the shift include patient will feel rested The clinical goals for the shift include Goal met [facility] [id number] Note* Rapid Response Note - Amaya Meredith RN - 12/23/2022 5:43 AM EDT Called to see for IV infiltration. Left forarm IV intact, slight swelling noted above IV site, areais soft, non tender, non blanching, no temperature change, strong distal pulses noted. RN states Tylenol infusion and calcium. Grade 2. RN notified to elevate and place warm compress. IV removed , catheter intact. Patient in NAD. . [facility] [id number] Note* Rapid Response Note - Amaya Meredith RN - 12/23/2022 5:43 AM EDT Called to see for IV infiltration. Left forarm IV intact, slight swelling noted above IV site, areais soft, non tender, non blanching, no temperature change, strong distal pulses noted. RN states Tylenol infusion and calcium. Grade 2. RN notified to elevate and place warm compress. IV removed , catheter intact. Patient in NAD. . [facility] [id number] [facility] Respiratory Care Department Progress Note Comment or reasoning for refusal: Patient was seen in attempts to fulfill CPAP/BiPAP/AutoPAP order. Patient refused PAP therapy/study at this time. Patient was educated on medical need and reasoning for physician order to ensure patient was making an informed medical decision. All of the patient's questions were answered at this time and patient was informed that if the patient changes their mind regarding wearing PAP to hit their call light or inform their nurse to contact Respiratory. A second, consecutive night of refusing PAP therapy/study results in order completion in the EMR. If future CPAP/BiPAP/AutoPAP therapy or study is indicated please place another order in the EMR and the assigned Respiratory Therapist will reattempt to fulfill orders. Reason for refusal: PT does not want to wear PAP Thank you for involving Respiratory in the care of this patient, [facility]05-26-2023 NoteNutrition Assessment Type and Reason for Visit: Initial, Consult, Patient Education (cardiac diet) Nutrition Recommendations/Plan: Continue diet as ordered Per MNT protocol, will order Ensure HP BID to promote protein and overall p.o. intake for optimal postop healing (160 kcal, 16 g protein, 8 oz each) Provided heart healthy diet handout with [facility] RD phone number. Will return prior to discharge, as able, to assess education needs RD will monitor overall nutrition status and follow weekly Malnutrition Assessment: Malnutrition Status: At risk for malnutrition (Comment) (s/p open heart surgery) Context: Acute Illness Findings of the 6 clinical characteristics of malnutrition: Energy Intake: Mild decrease in energy intake (Comment) Weight Loss: No significant weight loss Body Fat Loss: No significant body fat loss Muscle Mass Loss: No significant muscle mass loss Fluid Accumulation: Mild Generalized Windows Application Packager Strength: Not Performed Nutrition Assessment: Pt with PMH including HTN, HLD, TIA, who presented from [facility] due to positive stress test with inferior WMA, EKG changes, had LHC done which showed MVCAD. Pt was seen by CTS and underwent CABG x4 on 12/20. He is extubated with diet ordered. Patient is observed sitting up in chair, alert, reports he has not eaten anything yet, endorses some nausea, no emesis, poor appetite, declines for RD to order a meal at this time. Prior to admission, pt reports he was eating well, good appetite, stable weight, following a general diet. RD provided heart heatlhy handout with [facility] RD phone number for independent review, advised pt that RD will return prior to discharge for diet instruction. Pt is agreeable to ONS. RD also encouraged p.o. intake Estimated Daily Nutrient Needs: Energy Requirements Based On: Kcal/kg Weight Used for Energy Requirements: Donna (25-30 kcal/kg) Weight for Energy Calculation (kg): 78 kg Total Energy Requirements (kcals/day): 6630-6458 Weight Used for Protein Requirements: Donna (1.2-1.5 g/kg) Weight in Kg Used for Protein Requirements: 78 kg Estimated Total Protein (g/day): 94-117 Estimated Daily Total Fluid (ml/day): or per MD Nutrition Related Findings: Nutrition History: Independent of feeding. Lives with: Spouse/significant other Teeth: Intact GI symptoms: Decreased appetite and Nausea. Wei Scale Score: 16 .Wound Type: Surgical Incision Net IO Since Admission: 1,136 mL [12/21/22 1051] Edema: RUE Edema: Trace, LUE Edema: Trace, RLE Edema: Non-pitting, LLE Edema: Non-pitting Bowel Sounds (All Quadrants): Hypoactive Abdomen Inspection: Distended Labs and meds reviewed: acetaminophen, 1,000 mg, Oral, q6h aspirin, 81 mg, Oral, Daily ceFAZolin, 2,000 mg, IntraVENous, q8h chlorhexidine, 15 mL, Mouth/Throat, BID heparin, 5,000 Units, SubCUTAneous, 2 times per day mupirocin, , Nasal, BID [START ON 12/22/2022] pantoprazole, 40 mg, Oral, qAM AC polyethylene glycol (PEG) 3350, 17 g, Oral, Daily rosuvastatin, 40 mg, Oral, Daily senna-docusate sodium, 2 tablet, Oral, Nightly insulin regular, 1-50 Units/hr, Last Rate: 1 Units/hr (12/21/22 1005) lactated ringers, 250 mL sodium chloride, 20 mL/hr, Last Rate: 20 mL/hr (12/20/22 1330) BMP: Recent Labs 12/20/22 0006 12/20/22 1242 12/21/22 0012 NA 138 139 137 K 4.1 4.5 4.6 CL 110* 111* 110* CO2 26 21* 18* BUN 23* 21* 22* CREATININE 1.58* 1.41* 1.57* GLUCOSE 93 128* 125* CALCIUM 8.2* 8.4 7.9* MG -- 3.2* 2.4* PHOS -- 3.1 -- Recent Labs 12/20/22 1759 12/20/22 2012 12/21/22 0016 12/21/22 0743 12/21/22 0914 12/21/22 1004 POCGLU 114* 110* 133* 142* 109* 125* Lab Results Component Value Date HGBA1C 5.4 12/18/2022 No results found for: VITD25 No results found for: ZINC Lab Results Component Value Date EFBP 69 12/19/2022 Current Nutrition Therapies: Adult diet Regular; 5 carb choices (75 gm/meal) Current Oral Intake Average Meal Intake: 0% Average Supplements Intake: None Ordered Anthropometric Measures: Height: 180.3 cm (5' 11) Current Body Weight: 105 kg (232 lb) (standing scale 12/20) Weight Source: Standing Scale Admission Body Weight: 103 kg (227 lb) (standing scale 12/19) Usual Body Weight: (232# on 08/23/22, 227# on 06/08/22) Donna Body Weight (lbs) (Calculated): 172 lbs Donna Body Weight (Kg) (Calculated): 78 kg % Donna Body Weight (Calculated): 134.9 % BMI (kg/m2) (Calculated): 32.4 BMI Categories: Obese Class 1 (BMI 30.0-34.9) Wt Readings from Last 10 Encounters: 12/21/22 105 kg (232 lb 2.3 oz) Nutrition Diagnosis: Increased nutrient needs related to increase demand for energy/nutrients as evidenced by wounds (surgical) Nutrition Interventions: Food and/or Nutrient Delivery: Continue Current Diet, Start Oral Nutrition Supplement Nutrition Education/Counseling: Education initiated Coordination of Nutrition Care: Continue to monitor while inpatient Goals: Goals (more content not included)...[facility]05-26-2023 Consult note* Winter Callaway RD - 12/21/2022 10:51 AM EDTAssociated Order(s): IP CONSULT TO DIETITIAN Nutrition Assessment Type and Reason for Visit: Initial, Consult, Patient Education (cardiac diet) Nutrition Recommendations/Plan: Continue diet as ordered Per MNT protocol, will order Ensure HP BID to promote protein and overall p.o. intake for optimal postop healing (160 kcal, 16 g protein, 8 oz each) Provided heart healthy diet handout with [facility] RD phone number. Will return prior to discharge, as able, to assess education needs RD will monitor overall nutrition status and follow weekly Malnutrition Assessment: Malnutrition Status: At risk for malnutrition (Comment) (s/p open heart surgery) Context: Acute Illness Findings of the 6 clinical characteristics of malnutrition: Energy Intake: Mild decrease in energy intake (Comment) Weight Loss: No significant weight loss Body Fat Loss: No significant body fat loss Muscle Mass Loss: No significant muscle mass loss Fluid Accumulation: Mild Generalized Windows Application Packager Strength: Not Performed Nutrition Assessment: Pt with PMH including HTN, HLD, TIA, who presented from [facility] due to positive stress test with inferior WMA, EKG changes, had LHC done which showed MVCAD. Pt was seen by CTS and underwent CABG x4 on 12/20. He is extubated with diet ordered. Patient is observed sitting up in chair, alert, reports he has not eaten anything yet, endorses some nausea, no emesis, poor appetite, declines for RD to order a meal at this time. Prior to admission, pt reports he was eating well, good appetite, stable weight, following a general diet. RD provided heart heatlhy handout with [facility] RD phone number for independent review, advised pt that RD will return prior to discharge for diet instruction. Pt is agreeable to ONS. RD also encouraged p.o. intake Estimated Daily Nutrient Needs: Energy Requirements Based On: Kcal/kg Weight Used for Energy Requirements: Donna (25-30 kcal/kg) Weight for Energy Calculation (kg): 78 kg Total Energy Requirements (kcals/day): 7039-5713 Weight Used for Protein Requirements: Donna (1.2-1.5 g/kg) Weight in Kg Used for Protein Requirements: 78 kg Estimated Total Protein (g/day): 94-117 Estimated Daily Total Fluid (ml/day): or per MD Nutrition Related Findings: Nutrition History: Independent of feeding. Lives with: Spouse/significant other Teeth: Intact GI symptoms: Decreased appetite and Nausea. Wei Scale Score: 16 .Wound Type: Surgical Incision Net IO Since Admission: 1,136 mL [12/21/22 1051] Edema: RUE Edema: Trace, LUE Edema: Trace, RLE Edema: Non-pitting, LLE Edema: Non-pitting Bowel Sounds (All Quadrants): Hypoactive Abdomen Inspection: Distended Labs and meds reviewed: acetaminophen, 1,000 mg, Oral, q6h aspirin, 81 mg, Oral, Daily ceFAZolin, 2,000 mg, IntraVENous, q8h chlorhexidine, 15 mL, Mouth/Throat, BID heparin, 5,000 Units, SubCUTAneous, 2 times per day mupirocin, , Nasal, BID [START ON 12/22/2022] pantoprazole, 40 mg, Oral, qAM AC polyethylene glycol (PEG) 3350, 17 g, Oral, Daily rosuvastatin, 40 mg, Oral, Daily senna-docusate sodium, 2 tablet, Oral, Nightly insulin regular, 1-50 Units/hr, Last Rate: 1 Units/hr (12/21/22 1005) lactated ringers, 250 mL sodium chloride, 20 mL/hr, Last Rate: 20 mL/hr (12/20/22 1330) BMP: Recent Labs 12/20/22 0006 12/20/22 1242 12/21/22 0012 NA 138 139 137 K 4.1 4.5 4.6 CL 110* 111* 110* CO2 26 21* 18* BUN 23* 21* 22* CREATININE 1.58* 1.41* 1.57* GLUCOSE 93 128* 125* CALCIUM 8.2* 8.4 7.9* MG -- 3.2* 2.4* PHOS -- 3.1 -- Recent Labs 12/20/22 1759 12/20/22201112/21/22 0016 12/21/22 0743 12/21/22 0914 12/21/22 1004 POCGLU 114* 110* 133* 142* 109* 125* Lab Results Component Value Date HGBA1C 5.4 12/18/2022 No results found for: VITD25 No results found for: ZINC Lab Results Component Value Date EFBP 69 12/19/2022 Current Nutrition Therapies: Adult diet Regular; 5 carb choices (75 gm/meal) Current Oral Intake Average Meal Intake: 0% Average Supplements Intake: None Ordered Anthropometric Measures: Height: 180.3 cm (5' 11) Current Body Weight: 105 kg (232 lb) (standing scale 12/20) Weight Source: Standing Scale Admission Body Weight: 103 kg (227 lb) (standing scale 12/19) Usual Body Weight: (232# on 08/23/22, 227# on 06/08/22) Donna Body Weight (lbs) (Calculated): 172 lbs Donna Body Weight (Kg) (Calculated): 78 kg % Donna Body Weight (Calculated): 134.9 % BMI (kg/m2) (Calculated): 32.4 BMI Categories: Obese Class 1 (BMI 30.0-34.9) Wt Readings from Last 10 Encounters: 12/21/22 105 kg (232 lb 2.3 oz) Nutrition Diagnosis: Increased nutrient needs related to increase demand for energy/nutrients as evidenced by wounds (surgical) Nutrition Interventions: Food and/or Nutrient Delivery: Continue Current Diet, Start Oral Nutrition Supplement Nutrition Education/Counseling: Education initiated Coordination of Nutrition Care: Continue to monitor while inpatient Goals: Goals: PO intake 75% or greater, by next RD assessment Nutrition Monitoring and Evaluation: Food/Nutrient Intake Outcomes: Food and Nutrient Intake, Supplement Intake Physical Signs/Symptoms Outcomes: Biochemical Data, GI Status, Nausea or Vomiting, Fluid Status or Edema, Skin, Weight, Nutrition Focused Physical Findings Discharge Planning: Too soon to determine Winter Callaway RD, LD Contact: *[phone] or via [employer] ([email or web address] chat [facility] [id number] Consult note* Winter Callaway RD - 12/21/2022 10:51 AM EDTAssociated Order(s): IP CONSULT TO DIETITIAN Nutrition Assessment Type and Reason for Visit: Initial, Consult, Patient Education (cardiac diet) Nutrition Recommendations/Plan: Continue diet as ordered Per MNT protocol, will order Ensure HP BID to promote protein and overall p.o. intake for optimal postop healing (160 kcal, 16 g protein, 8 oz each) Provided heart healthy diet handout with [facility] RD phone number. Will return prior to discharge, as able, to assess education needs RD will monitor overall nutrition status and follow weekly Malnutrition Assessment: Malnutrition Status: At risk for malnutrition (Comment) (s/p open heart surgery) Context: Acute Illness Findings of the 6 clinical characteristics of malnutrition: Energy Intake: Mild decrease in energy intake (Comment) Weight Loss: No significant weight loss Body Fat Loss: No significant body fat loss Muscle Mass Loss: No significant muscle mass loss Fluid Accumulation: Mild Generalized Windows Application Packager Strength: Not Performed Nutrition Assessment: Pt with PMH including HTN, HLD, TIA, who presented from [facility] due to positive stress test with inferior WMA, EKG changes, had LHC done which showed MVCAD. Pt was seen by CTS and underwent CABG x4 on 12/20. He is extubated with diet ordered. Patient is observed sitting up in chair, alert, reports he has not eaten anything yet, endorses some nausea, no emesis, poor appetite, declines for RD to order a meal at this time. Prior to admission, pt reports he was eating well, good appetite, stable weight, following a general diet. RD provided heart heatlhy handout with [facility] RD phone number for independent review, advised pt that RD will return prior to discharge for diet instruction. Pt is agreeable to ONS. RD also encouraged p.o. intake Estimated Daily Nutrient Needs: Energy Requirements Based On: Kcal/kg Weight Used for Energy Requirements: Donna (25-30 kcal/kg) Weight for Energy Calculation (kg): 78 kg Total Energy Requirements (kcals/day): 2079-1323 Weight Used for Protein Requirements: Donna (1.2-1.5 g/kg) Weight in Kg Used for Protein Requirements: 78 kg Estimated Total Protein (g/day): 94-117 Estimated Daily Total Fluid (ml/day): or per MD Nutrition Related Findings: Nutrition History: Independent of feeding. Lives with: Spouse/significant other Teeth: Intact GI symptoms: Decreased appetite and Nausea. Wei Scale Score: 16 .Wound Type: Surgical Incision Net IO Since Admission: 1,136 mL [12/21/22 1051] Edema: RUE Edema: Trace, LUE Edema: Trace, RLE Edema: Non-pitting, LLE Edema: Non-pitting Bowel Sounds (All Quadrants): Hypoactive Abdomen Inspection: Distended Labs and meds reviewed: acetaminophen, 1,000 mg, Oral, q6h aspirin, 81 mg, Oral, Daily ceFAZolin, 2,000 mg, IntraVENous, q8h chlorhexidine, 15 mL, Mouth/Throat, BID heparin, 5,000 Units, SubCUTAneous, 2 times per day mupirocin, , Nasal, BID [START ON 12/22/2022] pantoprazole, 40 mg, Oral, qAM AC polyethylene glycol (PEG) 3350, 17 g, Oral, Daily rosuvastatin, 40 mg, Oral, Daily senna-docusate sodium, 2 tablet, Oral, Nightly insulin regular, 1-50 Units/hr, Last Rate: 1 Units/hr (12/21/22 1005) lactated ringers, 250 mL sodium chloride, 20 mL/hr, Last Rate: 20 mL/hr (12/20/22 1330) BMP: Recent Labs 12/20/22 0006 12/20/22 1242 12/21/22 0012 NA 138 139 137 K 4.1 4.5 4.6 CL 110* 111* 110* CO2 26 21* 18* BUN 23* 21* 22* CREATININE 1.58* 1.41* 1.57* GLUCOSE 93 128* 125* CALCIUM 8.2* 8.4 7.9* MG -- 3.2* 2.4* PHOS -- 3.1 -- Recent Labs 12/20/22 1759 12/20/22201112/21/22 0016 12/21/22 0743 12/21/22 0914 12/21/22 1004 POCGLU 114* 110* 133* 142* 109* 125* Lab Results Component Value Date HGBA1C 5.4 12/18/2022 No results found for: VITD25 No results found for: ZINC Lab Results Component Value Date EFBP 69 12/19/2022 Current Nutrition Therapies: Adult diet Regular; 5 carb choices (75 gm/meal) Current Oral Intake Average Meal Intake: 0% Average Supplements Intake: None Ordered Anthropometric Measures: Height: 180.3 cm (5' 11) Current Body Weight: 105 kg (232 lb) (standing scale 12/20) Weight Source: Standing Scale Admission Body Weight: 103 kg (227 lb) (standing scale 12/19) Usual Body Weight: (232# on 08/23/22, 227# on 06/08/22) Donna Body Weight (lbs) (Calculated): 172 lbs Donna Body Weight (Kg) (Calculated): 78 kg % Donna Body Weight (Calculated): 134.9 % BMI (kg/m2) (Calculated): 32.4 BMI Categories: Obese Class 1 (BMI 30.0-34.9) Wt Readings from Last 10 Encounters: 12/21/22 105 kg (232 lb 2.3 oz) Nutrition Diagnosis: Increased nutrient needs related to increase demand for energy/nutrients as evidenced by wounds (surgical) Nutrition Interventions: Food and/or Nutrient Delivery: Continue Current Diet, Start Oral Nutrition Supplement Nutrition Education/Counseling: Education initiated Coordination of Nutrition Care: Continue to monitor while inpatient Goals: Goals: PO intake 75% or greater, by next RD assessment Nutrition Monitoring and Evaluation: Food/Nutrient Intake Outcomes: Food and Nutrient Intake, Supplement Intake Physical Signs/Symptoms Outcomes: Biochemical Data, GI Status, Nausea or Vomiting, Fluid Status or Edema, Skin, Weight, Nutrition Focused Physical Findings Discharge Planning: Too soon to determine Winter Callaway RD, LD Contact: *[phone] or via [employer] ([employer]) chat * Mily Gtz, DIE SINKER APPRENTICE - [facility] - 12/20/2022 1:21 PM EDTAssociated Order(s): IP CONSULT TO ENDOCRINOLOGY Department of Internal Medicine Division of Endocrinology, Diabetes, & Metabolism Endocrinology Note Patient Name: Jesus Alberto Guevara : 1940 AGE: 82 y.o. Room/Bed: T1-111/T1-111 A Admission Date: 12/18/2022 Visit Date: 12/20/2022 Reason for Endocrine Consult: post op heart Provider/Team Requesting Consult: CTS PCP: JAZLYN ZAYAS DO Outpt Safety Compliance Specialist: No ASSESSMENT: Stress hyperglycemia Cabg CAD/HTN/HLD KASSANDRA on CKD PLAN: Cont on insulin gtt per protocol ICU goal <180 GMF goal <150 POCT ACHS-q1 on gtt Hypoglycemia per protocol Carb controlled diet ANTICIPATED ENDOCRINE HOME GOING RECOMMENDATIONS: Optimized for Discharge from Endocrine standpoint: No Home Going Endocrine Rx Recommendations-- none Outpt Follow Up-- pcp SUBJECTIVE/HPI: CHIEF COMPLAINT: No chief complaint on file. Cabg No noted hx of diabetes noted Bgl 93-125-128 Resting in bed Sleeping VSS Intubated and sedated Insulin gtt paused on assessment On propofol gtt Currently no pressors are on CT in place No noted hx of diabetes per chart No family in room Spoke to nursing and CTS Type of DM: na Onset of DM: na Home DM Medication Regimen: na DM control (last A1c/glucose data): Lab Results Component Value Date HGBA1C 5.4 12/18/2022 Review of Systems Unable to perform ROS: Intubated ROS negative except for those mentioned in HPI. OBJECTIVE: Vitals: 12/20/22 0735 12/20/22 0740 12/20/22 0745 12/20/22 1310 BP: (!) 146/99 BP Location: Patient Position: Pulse: 59 59 60 78 Resp: 15 Temp: TempSrc: SpO2: 98% Weight: Height: Physical Exam Vitals and nursing note reviewed. Constitutional: General: He is not in acute distress. Appearance: He is ill-appearing. He is not toxic-appearing. Interventions: He is sedated and intubated. HENT: Head: Normocephalic and atraumatic. Eyes: Conjunctiva/sclera: Conjunctivae normal. Cardiovascular: Rate and Rhythm: Normal rate. Pulmonary: Effort: Pulmonary effort is normal. He is intubated. Abdominal: Palpations: Abdomen is soft. Musculoskeletal: Cervical back: No rigidity. Skin: General: Skin is warm and dry. Comments: Intact incision 24 hour intake/output: Intake/Output Summary (Last 24 hours) at 12/20/2022 1322 Last data filed at 12/20/2022 1300 Gross per 24 hour Intake 1942 ml Output 965 ml Net 977 ml Diet: NPO diet Medications (as per EMR): HomeMeds: @MEDHMEDS@ Scheduled Meds:acetaminophen, 1,000 mg, Oral, q6h [Held by provider] aspirin, 81 mg, Oral, Daily [Held by provider] carvedilol, 6.25 mg, Oral, BID WC ceFAZolin, 2,000 mg, IntraVENous, q8h chlorhexidine, 15 mL, Mouth/Throat, BID chlorhexidine, 15 mL, Mouth/Throat, BID famotidine, 20 mg, Oral, BID melatonin, 3 mg, Oral, Nightly mupirocin, , Nasal, BID polyethylene glycol (PEG) 3350, 17 g, Oral, Daily [Held by provider] rosuvastatin, 40 mg, Oral, Daily senna-docusate sodium, 2 tablet, Oral, Nightly Continuous Infusions:EPINEPHrine, 0.01-0.2 mcg/kg/min fentaNYL, 25-200 mcg/hr insulin regular, 1-50 Units/hr lactated ringers, 250 mL norepinephrine, 0.01-3.3 mcg/kg/min propofol, 5-50 mcg/kg/min sodium chloride, 20 mL/hr PRN Meds:PRN medications: acetaminophen OR acetaminophen OR acetaminophen, albumin human, calcium gluconate, dextrose, dextrose, EPINEPHrine, glucagon (rDNA), glucose, lactated ringers, magnesium hydroxide, magnesium sulfate OR magnesium sulfate, meperidine, morphine sulfate OR morphine sulfate, norepinephrine, ondansetron ODT OR ondansetron, ondansetron ODT OR ondansetron, oxyCODONE OR oxyCODONE, oxyCODONE, polyethylene glycol (PEG) 3350, potassium chloride OR potassium chloride (KCl) in 250 mL IVPB (peripheral line) OR potassium chloride (KCl) in 500 mL IVPB (peripheral line), [START ON 12/21/2022] potassium chloride CR Diagnostic Workup: I reviewed pertinent Laboratory results, Radiographic results, and Other Clinical Notes at the timeof today's encounter. Labs: No components found for: LABA1C No components found for: EAG Lab Results Component Value Date NA 139 12/20/2022 K 4.5 12/20/2022 CL 111 (H) 12/20/2022 CO2 21 (L) 12/20/2022 BUN 21 (H) 12/20/2022 CREATININE 1.41 (H) 12/20/2022 GLUCOSE 128 (H) 12/20/2022 CALCIUM 8.4 12/20/2022 No results found for: CHLPL, CHOL No results found for: TRIG No results found for: HDL No results found for: LDLCALC No results found for: VLDL No results found for: CHOLHDLRATIO No results found for: [id number] Lab Results Component Value Date TSH 0.804 12/18/2022 Radiology reportsas per the Radiologist Radiology: ECG 12 lead Result Date: 12/19/2022 Sinus bradycardia Nonspecific T abnormalities, lateral leads Electronically Signed On 12-19-2022 9:21:36 EDT [address] Nathan Al[address] CT chest wo IV contrast Result Date: 12/19/2022 Patient Name: [facility] 1940 [id number] Exam Date/Time: 12/18/2022 21:41 Procedure: CT CHEST WO IV CONTRAST Ordering Provider: REYES KYLE Reason For Exam: Aortic aneurysm, known or suspected CLINICAL INFORMATION: Positive stress test. ECG changes. Coronary artery disease. Planned CABG. 1 mm axial cuts are obtained through the chest without IV contrast. Dose reduction was employed with automated exposure control. There are no comparison studies at this institution. FINDINGS: The heart size is normal. The ascending aorta and arch are normal in caliber. The lumen cannot be evaluated on this unenhanced scan. A small amount of fluid is present about the aortic root. However, this is thought to reside in the pericardial recess. There is no evidence of dissection or leak. Coronary arterial calcifications are most pronounced in the left anterior descending coronary artery. There is no mediastinal lymphadenopathy. The lungs arefree of infiltrate or pleural effusion. A well-defined smooth 0.6 cm nodule is present in the rightmiddle lobe (image #175). A 0.4 cm nodule is present in the periphery the right upper lobe (image #125). Both are too small to further characterize. Upper cuts of the abdomen included on the examination are grossly normal on this unenhanced scan. 1. The ascending aorta is normal in caliber. 2. Coronary arterial calcifications most pronounced inthe LAD. 3. Right upper and middle lobe lung nodules. These are too small to further characterize. In a low risk patient (i.e. minimal or absent history of smoking and no other known risk factors), afollow-up CT is recommended in 12 months. If the patient is of higher risk, a follow-up CT is recommended in approximately 6 months. If desired, this could again be performed without IV contrast. Report Dictated on Electronically Signed By: Andres Dias Electronically Signed Date/Time: 12/19/2022 10:17 AM EDT XR chest 1 view Result Date: 12/19/2022 Patient Name: [facility]ES[facility] ALBERTO [facility]UE[facility]A [facility] 1940 [id number] Exam Date/Time: 12/19/2022 07:53 Procedure: XR CHEST 1 VIEW Ordering Provider: EMERSON MATTHEW Reason For Exam: CORONARY ARTERIOSCLEROSIS CHEST (Frontal View) History: Respiratory abnormality, coronary artery disease Comparison chest x-ray: None available Findings: Frontal chest view shows mild chronic lung changes with small linear left basilar atelectasis without acute infiltrate or congestion. The heart is normal in size. Aorta appears tortuous. There is no mediastinal widening or pleural effusion. No acute pulmonary process. Report Dictated on Electronically Signed By:Eun Burleson Electronically Signed Date/Time: 12/19/2022 9:03 AM EDT Transthoracic echocardiogram (TTE) complete with contrast, bubble, strain, and 3D PRN Result Date: 12/19/2022 Left Ventricle: Left ventricle size is normal. Mildly increased wall thickness. Normal left ventricular systolic function. EF by 2D Simpsons Biplane is 69%. See diagram for wall motion findings. Right Ventricle: Right ventricle size is normal. Normal systolic function. Aortic Valve: Mild to moderate (1-2+) regurgitation. Mitral Valve: Mild (1+) regurgitation. Vascular US carotid artery duplex bilateral Result Date: 12/18/2022 <50% stenosis in the right internal carotid artery. Mild and calcific plaque (proximal) in the right internal carotid artery. <50% stenosis in the left internal carotid artery. Moderate, heterogeneous and calcific plaque (proximal) in the left internal carotid artery. Normal antegrade flow involving the right vertebral artery. Normal antegrade flow involving the left vertebral artery. Vascular US lower extremity vein mapping for bypass bilateral Result Date: 12/18/2022 Vessel diameters as noted in the table below. History/Other: Past Medical History: History reviewed. No pertinent past medical history. Past Surgical History: History reviewed. No pertinent surgical history. Allergy(ies): No Known Allergies Family History: No family history on file. Social History: Portions of the information within this encounter were entered using an electronic dictation system. Best attempts were made to edit/proofread the information prior to note completion. Despite the review of information, some errors may remain. If there are questions related to the information contained within the note please contact the signing physician directly. I spent 30 minutes with the pt which involved coordination of care, medical evaluation, review of records, and/or counseling of the pt regarding his/her condition/disease state/prognosis on the date of this note. Associated attestation - Greg Garcia MD - 12/20/2022 4:48 PM EDT I performed a history and physical examination of the patient. I have reviewed the patient's chart including pertinent history, medications, labs, radiology, and other reports. I reviewed the resident/LUCHO's note, agree with the documented findings and plan of care (with modifications noted if any),and discussed the management plan. I have performed a substantive portion of the the medical decision making. Pt is s/p CABG 12/20/22. Patient just got extubated but was very somnolent. Could not engage in a conversation at this time.Mostly complaining of chest discomfort. No known history of diabetes per records. Patient has CKD stage 3. Creatinine from 2016 was 1.3. BG stable, 125-138 today. Pt has not been initiated on insulin drip. No pressors. Noted LHC results. EF 72%. No family available. Lab Results Component Value Date HGBA1C 5.4 12/18/2022 Lab Results Component Value Date GLUCOSE 128 (H) 12/20/2022 CALCIUM 8.4 12/20/2022 NA 139 12/20/2022 K 4.5 12/20/2022 CO2 21 (L) 12/20/2022 CL 111 (H) 12/20/2022 BUN 21 (H) 12/20/2022 CREATININE 1.41 (H) 12/20/2022 BP (!) 146/99 Pulse 87 Temp 37.1 C (98.8 F) Resp 19 Ht 5' 11 (1.803 m) Wt 225 lb (102 kg) SpO2 97% PF 55 L/min BMI 31.38 kg/m Somnolent, not in distress, on O2 per NC, RRR, chest incision intact, good pulses, decreased breathsounds, +chest tubes, abdomen soft, distended, non- tender, no edema, +bandage on LLE. Dx: Stress hyperglycemia. CAD s/p CABG. CKD 3. Plan: - will continue insulin infusion per protocol then transition to subcutaneous insulin - continue blood glucose monitoring - patient will unlikely require any pharmacotherapy on discharge for hyperglycemia - will follow Total time 25 minutes which include review of records, counseling, management, and coordination of care as documented in note. * Shayan Emerson, DIE SINKER APPRENTICE - EXPERIMENTAL WELDER - 12/20/2022 7:06 AM EDT Images from the original note were not included. [facility]: Critical Care Consultation Note Date: 12/20/22 PATIENT NAME: Jesus Alberto Guevara Jr. 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 Today he was transferred from [facility] due to a positive stress test with inferior WMA, EKG changes, t-wave inversions in the inferior leads. 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 His EF was 75% on LV gram and during the stress test was measured at 65% - Normal LVEDP. He does have CKD baseline creat of 1.42. Other labs are unremarkable. He did not get loaded with P2Y12 therapy at [facility], he is on BB, asa, statin and has a PMH of stenting 10 years ago, HTN, HLD. Did have a TIA after quitting ASA at one time. He is a formerpipe-smoker and occasionally uses ETOH. He elected for CABG x [address] Nickerson - His EF is preserved and no significant Valve disease. He consented and went to surgery today and had CABG x 4.The intra -op phase was uneventful. Patient arrived to the unit, intubated and sedated. Surgical hand off completed below. Review of Systems Reason unable to perform ROS: Intubated and sedated. Surgical Hand-Off Arrival Time in HLU: 115 Surgery: Nickerson: CABG x 4 Complications/Pertinent Events: Gtts OR report Epinephrine: Norepinephrine: Phenylephrine: Vasopressin: Nitroglycerin: Nitroprusside: Dobutamine: Milrinone: Propofol: Insulin: Amicar: 29 Current gtts upon arrival Epinephrine: Norepinephrine: Phenylephrine: Vasopressin: Nitroglycerin: Nitroprusside: Dobutamine: Milrinone: Propofol: Insulin: Amicar: 29 Devices: Epicardial wires: yes [x] no [] Type: Ventricular [x] Atrial [] Mode: back up IABP: yes [] no [x] Mode: LVAD: yes [] no [x] Speed: Equipment: Back up controller yes [] no [x] Other: Blood Transfusions Intra Op: yes [] no [x] pRBC: FFP: Cryo: PLT: CellSaver: 600 Medications given en route: Last Paralytic: Vital Signs including Cardiac Numbers (if indicated) at Conclusion of Hand-off OR HLU CO 4.6 CI 2.0 CVP 10 SVR 1008 PAP 45/23 Additional Interventions/Misc during Handoff None Allergies: Patient has no known allergies. Past Medical History: has no past medical history on file. Past Surgical History: has no past surgical history on file. Social History: Nonsmoker No ETOH No Illicit drugs Family History: family history is not on file. Medications: Prior to Admission medications Not on File Objective: BP (!) 136/96 (BP Location: Left arm, Patient Position: Lying) Pulse 52 Temp 36.7 C (98 F) (Temporal) Resp 18 Ht 5' 11 (1.803 m) Wt 225 lb 4.8 oz (102 kg) SpO2 93% BMI 31.42 kg/m Intake/Output Summary (Last 24 hours) at 12/20/2022 0707 Last data filed at 12/19/20221999 Gross per 24 hour Intake 240 ml Output 300 ml Net -60 ml Physical Exam Constitutional: Interventions: He is sedated and intubated. HENT: Mouth/Throat: Comments: ETT in place Neck: Vascular: No JVD. Trachea: Trachea normal. Cardiovascular: Rate and Rhythm: Normal rate and regular rhythm. Pulses: Radial pulses are 2+ on the right side and 2+ on the left side. Heart sounds: Normal heart sounds, S1 normal and S2 normal. Pulmonary: Effort: He is intubated. Breath sounds: Decreased breath sounds present. Abdominal: General: Bowel sounds are absent. Musculoskeletal: Right lower leg: No edema. Left lower leg: No edema. Skin: Findings: Bruising and ecchymosis present. Comments: Surgical dressing dry and intact Diagnostics: Reviewed in EMR Labs: Reviewed in EMR BMP: Recent Labs 12/18/22 1342 12/19/22 0616 12/20/22 0006 NA 135 137 138 K 4.8 4.3 4.1 CL 105 109* 110* CO2 26 24 26 BUN 18 18 23* CREATININE 1.28* 1.29* 1.58* CALCIUM 8.5 8.0* 8.2* CBC: Recent Labs 12/18/22 1342 12/19/22 0616 12/20/22 0006 WBC 7.3 7.4 7.3 HGB 15.9 14.5 14.6 HCT 48.0 42.8 42.9 PLT 167 154 154 MCV 88.2 86.2 86.1 RDW 13.9 13.8 13.6 INR: No results for input(s): INR in the last 72 hours. Assessment: MVCAD Prior PCI of LAD CKD III HTN HLD Post operative Pulm Management: Normal Post-operative Course Post-operative Atrial Fibrillation: []Yes [x] No Acute blood loss anemia/consumptive None Plan: - KASSANDRA on CKD - Dr. Armenta is following - CXR verified placement - advance swan to wedge of 10 mmHg balloon down placed at 47 CM - Reversal with sugammdex - Hemodynamic goals: CI >2.0, SBP 90-130 mmHg, MAP 60-75 - PRN Hypertension 1st option Cardene gtt 2nd option or if Cardene unavailable Nitro -PRN Hypotension CI >2.0 euvolemic with low SVR- Levophed gtt CI <2.0 euvolemic - Epinephrine gtt - Temp pacing wires/mode: VVI back up - Chest tubes: no air leak or fluctuation noted, suction -20cm - Cefazolin - surgical prophy for 5 doses total - Wean to Extubation: Arrival Time in unit: 7:30pm - Vent: ACVC+, TV 6ml/kg/min, rate 12, fio2 100% PEEP 8 VAP protocol: HOB >30 degrees; peridex BID - HgbA1c: WNL - Blood glucose - Insulin gtt; per endo/protocol - GI prophy: Protonix IV daily Patient treatment plan and plan of care discuss with Dr. Wesley Cardiac Core Medications: NA pt is POD 0 EF: 55% 12/18 Blood Conservation: None noted in post-operative period DVT prophylaxis: TEDs and SCDs Restraints: none [employer]: [facility] Associated attestation - Octavia Wesley MD - 12/20/2022 3:48 PM EDT I have personally performed a [id number] diagnostic evaluation on this patient on date of service12/20/22. History, labs, imaging studies, and electronic medical record have been reviewed by me. This note documented by the []warehouse unloader [x]LUCHO reflects my history, exam, and medical decision making. I have reviewed and agree with the care plan. Changes were made in the orders as necessary. ROSdocumentation was reviewed and negative unless otherwise stated in HPI. Additional pertinent interval history, ROS, and physical exam findings: Uncomplicated 4 vessel CABG Arrived to ICU on propofol infusion and cell saver. Assessment: MV CAD s.p. CABG CKD stage 3 Post op pulmonary management, normal post OP course Plan: Wean to fast track extubation, patient passed SBT and was extubated to NC, adjusted swan, follow urine and Cr. Sugamadex was given. Standard post OP orders placed. Rest of care as per LUCHO note Total critical care time for this patient with life-threatening unstable organ failure, including direct patient contact, management of life support systems, review of data including imaging and labs, and discussions with other team members and physicians at least 32 min so far today, excluding procedures. * Tommie Armenta MD - 12/19/2022 9:47 AM EDTAssociated Order(s): IP CONSULT TO NEPHROLOGY [facility] [address] [place] [address] Consult Note Patient's Name: Jesus Alberto Guevara Jr. 9:47 AM 12/19/2022 Reason for Consult: CKD History of Present Ilness: Jesus Alberto Guevara Jr. is a 82 y.o. male with PMH including HTN, HLD, TIA, who presented from [facility] due to positive stress test with inferior WMA, EKG changes, had LHC done which showed MVCAD. Patient has followed with Dr. Gimenez as outpatient physician gynecologist. Patient reports feeling sleepy, but denies pain, dyspnea, N/V/D, LUTS. History reviewed. No pertinent past medical history. History reviewed. No pertinent surgical history. No family history on file. Allergies: Patient has no known allergies. Medications: No current facility-administered medications on file prior to encounter. No current outpatient medications on file prior to encounter. Review of Systems: ROS as in HPI Physical exam: BP (!) 159/96 (BP Location: Left arm, Patient Position: Lying) Pulse 61 Temp 36.6 C (97.9 F) (Core) Resp 16 Ht 1.803 m (5' 11) Wt 103 kg (227 lb) SpO2 96% BMI 31.66 kg/m General: NAD, alert Chest: bilateral vesicular breath sounds Cardiac: S1, S2 Abdomen: soft SKIN: dry Extremities: no lower extremity edema Labs: Recent Labs 12/18/22 1342 12/19/22 0616 WBC 7.3 7.4 HGB 15.9 14.5 HCT 48.0 42.8 MCV 88.2 86.2 PLT 167 154 Recent Labs 12/18/22 1342 12/19/22 0616 NA 135 137 K 4.8 4.3 CL 105 109* CO2 26 24 GLUCOSE 100 94 BUN 18 18 CREATININE 1.28* 1.29* Ionized Calcium: No components found for: IONCA Magnesium: No results found for: MG Phosphorus: No results found for: PHOS Input / Output: 24 HR: Intake/Output Summary (Last 24 hours) at 12/19/2022 0947 Last data filed at 12/19/2022 0900 Gross per 24 hour Intake 1764 ml Output 650 ml Net 1114 ml IV Intake: P.O. (mL): 240 mL Olmedo: Imaging: CXR: IMPRESSION: No acute pulmonary process. Assessment: Jesus Alberto Guevara Jr. is a 82 y.o. male with PMH including HTN, HLD, TIA, who presented from [facility] due to positive stress test with inferior WMA, EKG changes, had LHC done which showed MVCAD. Nephrology consulted for CKD. CKD- stage 3, recently Scr stable ~1.3mg/dl -non-oliguric recently HTN- BP with some elevation recently, monitor Volume- no overt fluid overload Acid/base- appears compensated on recent value Plan: -monitor renal function, electrolytes -noted plan for surgery tomorrow NARAYAN Martin CNP Pt seen and examined independently by me. I reviewed with SABINE Wadsworth the medical history and the findings on physical examination. I discussed the patient s diagnosis and concur with the treatment plan as documented in his note. Please call [phone] or message me through [employer] with any questions or concerns. documented in this [facility]05-26-2023 Emergency department Note* Octavia Wesley MD - 12/21/2022 8:07 AM EDT EE: [facility]: 1(696) 789-102305-26-2023 Emergency department Note* Octavia Wesley MD - 12/21/2022 8:07 AM EDT EE: Planned CABG 12/20 documented in this [facility]05-26-2023 [facility] Respiratory Care Department Progress Note Comment or reasoning for refusal: Patient was seen in attempts to fulfill CPAP/BiPAP/AutoPAP order. Patient refused PAP therapy/study at this time. Patient was educated on medical need and reasoning for physician order to ensure patient was making an informed medical decision. All of the patient's questions were answered at this time and patient was informed that if the patient changes their mind regarding wearing PAP to hit their call light or inform their nurse to contact Respiratory. A second, consecutive night of refusing PAP therapy/study results in order completion in the EMR. If future CPAP/BiPAP/AutoPAP therapy or study is indicated please place another order in the EMR and the assigned Respiratory Therapist will reattempt to fulfill orders. Reason for refusal: pt stated he does not wear one at home and doesn't want to wear one here Thank you for involving Respiratory in the care of this patient, [facility]05-25-2023 NotePatient: Jesus Alberto Guevara Jr. Procedure Summary Date: 12/20/22 Room / Location: [address] Operating Room Anesthesia Start: 0755 Anesthesia Stop: Procedures: CABG, TRANSESOPHAGEAL ECHOCARDIOGRAPHY (Chest) Echocardiography transesophageal real-time Diagnosis: Atherosclerotic heart disease of [place] coronary artery without angina pectoris (Atherosclerotic heart disease of [place] coronary artery without angina pectoris [I25.10]) Surgeons: Humza Nickerson MD Responsible Provider: NARAYAN Hook CRNA Anesthesia Type: general ASA Status: 4 Anesthesia Type: general Vitals Value Taken Time BP 123/56 12/20/22 1330 Temp 97 12/20/22 1330 Pulse 90 12/20/22 1328 Resp 13 12/20/22 1328 SpO2 97 % 12/20/22 1328 Vitals shown include unvalidated device data. Anesthesia Post Evaluation Patient location during evaluation: ICU Patient participation: complete - patient cannot participate Level of consciousness: intubated and sedated Pain management: adequate Airway patency: patent Dental Injury: no Cardiovascular status: acceptable and hemodynamically stable Respiratory status: acceptable, ETT, intubated and ventilator Hydration status: acceptable Nausea/Vomiting: controlled No notable events documented. Patient can be discharged once all PACU criteria has been met.[facility] [id number] NotePatient: Jesus Alberto Guevara Procedure Summary Date: 12/20/22 Room / Location: [facility] OR Operating Room Anesthesia Start: 0755 Anesthesia Stop: Procedures: CABG, TRANSESOPHAGEAL ECHOCARDIOGRAPHY (Chest) Echocardiography transesophageal real-time Diagnosis: Atherosclerotic heart disease of [place] coronary artery without angina pectoris (Atherosclerotic heart disease of [place] coronary artery without angina pectoris [I25.10]) Surgeons: Humza Nickerson MD Responsible Provider: NARAYAN Hook CRNA Anesthesia Type: general ASA Status: 4 Anesthesia Type: general Vitals Value Taken Time BP 123/56 12/20/22 1329 Temp 97 12/20/22 1329 Pulse 80 12/20/22 1327 Resp 13 12/20/22 1327 SpO2 97 % 12/20/22 1326 Vitals shown include unvalidated device data. Anesthesia Post Evaluation Patient participation: complete - patient cannot participate Post-procedure mental status: sedated/intubated. Pain score: 0 Pain management: adequate Multimodal analgesia pain management approach Airway patency: patent Two or more strategies used to mitigate risk of obstructive sleep apnea Cardiovascular status: hemodynamically stable Respiratory status: acceptable, intubated, ventilator and ETT Hydration status: acceptable No notable events documented. MIPS #430 PONV Patient received an inhalational anesthetic (4554F) Patient does not exhibit three or more risk factors for PONV (X0430)) MIPS # 424 Perioperative Temperature Management Anesthesia time was 60 minutes or longer (4255F) Anesthesai administered was General (inhalational or TIVA) or Neuraxial block (X0424) At least one body temperature greater than 95.8F/35.5C achieved within the 30 mins immediately prior to or the 15 minutes immediately following anesthesia end time (G9771) intubated icu pt. MIPS #477 Multimodal Pain Management Not emergent case Patient was not administered multimodal pain management (G2149) Intubated patient (G2149) MIPS #404 Anesthesiology Smoking Abstinence The patient is not a current smoker (e.g. cigarette, cigar, pipe, e-cigarette/vaping/marijuana) If no stop here (XX404) I completed my handoff to the receiving clinician during which we: 1. Identified the patient 2. Identified the responsible provider 3. Reviewed the pertinent medical history 4. Discussed the surgical course 5. Reviewed intra-op anesthesia management and issues during anesthesia 6. Set expectations for post-procedure period 7. Allowed opportunity for questions and acknowledgement of understanding.[facility]05-25-2023 Note* Significant Event - Bib Jay RCP - 12/20/2022 2:58 PM EDT TC trial started HR 85, BP 103/53, spo2 92%, f/vt 38 15 mins : HR 85, spo2 93%, tv 317, RR 27, BP 116/62, f/vt 48 30 mins HR 84, RR 17, TV 486, spo2 90%, f/vt 41, BP 128/63 Dr. Nickerson [id number] [facility]* Significant Event - Bib Jay RCP - 12/20/2022 2:58 PM EDT TC trial started HR 85, BP 103/53, spo2 92%, f/vt 38 15 mins : HR 85, spo2 93%, tv 317, RR 27, BP 116/62, f/vt 48 30 mins HR 84, RR 17, TV 486, spo2 90%, f/vt 41, BP 128/63 Dr. Nickerson [id number] Consult note* Mily Gtz, DIE SINKER APPRENTICE - EXPERIMENTAL WELDER - 12/20/2022 1:21 PM EDTAssociated Order(s): IP CONSULT TO ENDOCRINOLOGY Department of Internal Medicine Division of Endocrinology, Diabetes, & Metabolism Endocrinology Note Patient Name: Jesus Alberto Guevara JrAnne-Marie : 1940 AGE: 82 y.o. Room[facility]Bed: [facility] Admission Date: 12/18/2022 Visit Date: 12/20/2022 Reason for Endocrine Consult: post op heart Provider/Team Requesting Consult: CTS PCP: JAZLYN ZAYAS, DO Outpt Safety Compliance Specialist: No ASSESSMENT: Stress hyperglycemia Cabg CAD/HTN/HLD KASSANDRA on CKD PLAN: Cont on insulin gtt per protocol ICU goal <180 GMF goal <150 POCT ACHS-q1 on gtt Hypoglycemia per protocol Carb controlled diet ANTICIPATED ENDOCRINE HOME GOING RECOMMENDATIONS: Optimized for Discharge from Endocrine standpoint: No Home Going Endocrine Rx Recommendations-- none Outpt Follow Up-- pcp SUBJECTIVE/HPI: CHIEF COMPLAINT: No chief complaint on file. Cabg No noted hx of diabetes noted Bgl 93-125-128 Resting in bed Sleeping VSS Intubated and sedated Insulin gtt paused on assessment On propofol gtt Currently no pressors are on CT in place No noted hx of diabetes per chart No family in room Spoke to nursing and CTS Type of DM: na Onset of DM: na Home DM Medication Regimen: na DM control (last A1c/glucose data): Lab Results Component Value Date HGBA1C 5.4 12/18/2022 Review of Systems Unable to perform ROS: Intubated ROS negative except for those mentioned in HPI. OBJECTIVE: Vitals: 12/20/22 0735 12/20/22 0740 12/20/22 0745 12/20/22 1310 BP: (!) 146/99 BP Location: Patient Position: Pulse: 59 59 60 78 Resp: 15 Temp: TempSrc: SpO2: 98% Weight: Height: Physical Exam Vitals and nursing note reviewed. Constitutional: General: He is not in acute distress. Appearance: He is ill-appearing. He is not toxic-appearing. Interventions: He is sedated and intubated. HENT: Head: Normocephalic and atraumatic. Eyes: Conjunctiva/sclera: Conjunctivae normal. Cardiovascular: Rate and Rhythm: Normal rate. Pulmonary: Effort: Pulmonary effort is normal. He is intubated. Abdominal: Palpations: Abdomen is soft. Musculoskeletal: Cervical back: No rigidity. Skin: General: Skin is warm and dry. Comments: Intact incision 24 hour intake/output: Intake/Output Summary (Last 24 hours) at 12/20/2022 1322 Last data filed at 12/20/2022 1300 Gross per 24 hour Intake 1942 ml Output 965 ml Net 977 ml Diet: NPO diet Medications (as per EMR): HomeMeds: @MEDHMEDS@ Scheduled Meds:acetaminophen, 1,000 mg, Oral, q6h [Held by provider] aspirin, 81 mg, Oral, Daily [Held by provider] carvedilol, 6.25 mg, Oral, BID WC ceFAZolin, 2,000 mg, IntraVENous, q8h chlorhexidine, 15 mL, Mouth/Throat, BID chlorhexidine, 15 mL, Mouth/Throat, BID famotidine, 20 mg, Oral, BID melatonin, 3 mg, Oral, Nightly mupirocin, , Nasal, BID polyethylene glycol (PEG) 3350, 17 g, Oral, Daily [Held by provider] rosuvastatin, 40 mg, Oral, Daily senna-docusate sodium, 2 tablet, Oral, Nightly Continuous Infusions:EPINEPHrine, 0.01-0.2 mcg/kg/min fentaNYL, 25-200 mcg/hr insulin regular, 1-50 Units/hr lactated ringers, 250 mL norepinephrine, 0.01-3.3 mcg/kg/min propofol, 5-50 mcg/kg/min sodium chloride, 20 mL/hr PRN Meds:PRN medications: acetaminophen OR acetaminophen OR acetaminophen, albumin human, calcium gluconate, dextrose, dextrose, EPINEPHrine, glucagon (rDNA), glucose, lactated ringers, magnesium hydroxide, magnesium sulfate OR magnesium sulfate, meperidine, morphine sulfate OR morphine sulfate, norepinephrine, ondansetron ODT OR ondansetron, ondansetron ODT OR ondansetron, oxyCODONE OR oxyCODONE, oxyCODONE, polyethylene glycol (PEG) 3350, potassium chloride OR potassium chloride (KCl) in 250 mL IVPB (peripheral line) OR potassium chloride (KCl) in 500 mL IVPB (peripheral line), [START ON 12/21/2022] potassium chloride CR Diagnostic Workup: I reviewed pertinent Laboratory results, Radiographic results, and Other Clinical Notes at the timeof today's encounter. Labs: No components found for: LABA1C No components found for: EAG Lab Results Component Value Date NA 139 12/20/2022 K 4.5 12/20/2022 CL 111 (H) 12/20/2022 CO2 21 (L) 12/20/2022 BUN 21 (H) 12/20/2022 CREATININE 1.41 (H) 12/20/2022 GLUCOSE 128 (H) 12/20/2022 CALCIUM 8.4 12/20/2022 No results found for: CHLPL, CHOL No results found for: TRIG No results found for: HDL No results found for: LDLCALC No results found for: VLDL No results found for: CHOLHDLRATIO No results found for: [id number] Lab Results Component Value Date TSH 0.804 12/18/2022 Radiology reportsas per the Radiologist Radiology: ECG 12 lead Result Date: 12/19/2022 Sinus bradycardia Nonspecific T abnormalities, lateral leads Electronically Signed On 12-19-2022 9:21:36 EDT by Nathan Al[address] CT chest wo IV contrast Result Date: 12/19/2022 Patient Name: [facility]ES[facility] ALBERTO [facility]UEVARA [facility] 1940 [id number] Exam Date/Time: 12/18/2022 21:41 Procedure: CT CHEST WO IV CONTRAST Ordering Provider: REYES KYLE Reason For Exam: Aortic aneurysm, known or suspected CLINICAL INFORMATION: Positive stress test. ECG changes. Coronary artery disease. Planned CABG. 1 mm axial cuts are obtained through the chest without IV contrast. Dose reduction was employed with automated exposure control. There are no comparison studies at this institution. FINDINGS: The heart size is normal. The ascending aorta and arch are normal in caliber. The lumen cannot be evaluated on this unenhanced scan. A small amount of fluid is present about the aortic root. However, this is thought to reside in the pericardial recess. There is no evidence of dissection or leak. Coronary arterial calcifications are most pronounced in the left anterior descending coronary artery. There is no mediastinal lymphadenopathy. The lungs arefree of infiltrate or pleural effusion. A well-defined smooth 0.6 cm nodule is present in the rightmiddle lobe (image #175). A 0.4 cm nodule is present in the periphery the right upper lobe (image #125). Both are too small to further characterize. Upper cuts of the abdomen included on the examination are grossly normal on this unenhanced scan. 1. The ascending aorta is normal in caliber. 2. Coronary arterial calcifications most pronounced inthe LAD. 3. Right upper and middle lobe lung nodules. These are too small to further characterize. In a low risk patient (i.e. minimal or absent history of smoking and no other known risk factors), afollow-up CT is recommended in 12 months. If the patient is of higher risk, a follow-up CT is recommended in approximately 6 months. If desired, this could again be performed without IV contrast. Report Dictated on Electronically Signed By: Andres Dias Electronically Signed Date/Time: 12/19/2022 10:17 AM EDT XR chest 1 view Result Date: 12/19/2022 Patient Name: JESUS ALBERTO [facility]UEVARA : 1940 [id number] Exam Date/Time: 12/19/2022 07:53 Procedure: XR CHEST 1 VIEW Ordering Provider: EMERSON MATTHEW Reason For Exam: CORONARY ARTERIOSCLEROSIS CHEST (Frontal View) History: Respiratory abnormality, coronary artery disease Comparison chest x-ray: None available Findings: Frontal chest view shows mild chronic lung changes with small linear left basilar atelectasis without acute infiltrate or congestion. The heart is normal in size. Aorta appears tortuous. There is no mediastinal widening or pleural effusion. No acute pulmonary process. Report Dictated on Electronically Signed By:Eun Burleson Electronically Signed Date/Time: 12/19/2022 9:03 AM EDT Transthoracic echocardiogram (TTE) complete with contrast, bubble, strain, and 3D PRN Result Date: 12/19/2022 Left Ventricle: Left ventricle size is normal. Mildly increased wall thickness. Normal left ventricular systolic function. EF by 2D Simpsons Biplane is 69%. See diagram for wall motion findings. Right Ventricle: Right ventricle size is normal. Normal systolic function. Aortic Valve: Mild to moderate (1-2+) regurgitation. Mitral Valve: Mild (1+) regurgitation. Vascular US carotid artery duplex bilateral Result Date: 12/18/2022 <50% stenosis in the right internal carotid artery. Mild and calcific plaque (proximal) in the right internal carotid artery. <50% stenosis in the left internal carotid artery. Moderate, heterogeneous and calcific plaque (proximal) in the left internal carotid artery. Normal antegrade flow involving the right vertebral artery. Normal antegrade flow involving the left vertebral artery. Vascular US lower extremity vein mapping for bypass bilateral Result Date: 12/18/2022 Vessel diameters as noted in the table below. History/Other: Past Medical History: History reviewed. No pertinent past medical history. Past Surgical History: History reviewed. No pertinent surgical history. Allergy(ies): No Known Allergies Family History: No family history on file. Social History: Portions of the information within this encounter were entered using an electronic dictation system. Best attempts were made to edit/proofread the information prior to note completion. Despite the review of information, some errors may remain. If there are questions related to the information contained within the note please contact the signing physician directly. I spent 30 minutes with the pt which involved coordination of care, medical evaluation, review of records, and/or counseling of the pt regarding his/her condition/disease state/prognosis on the date of this note. Associated attestation - Greg Garcia MD - 12/20/2022 4:48 PM EDT I performed a history and physical examination of the patient. I have reviewed the patient's chart including pertinent history, medications, labs, radiology, and other reports. I reviewed the resident/LUCHO's note, agree with the documented findings and plan of care (with modifications noted if any),and discussed the management plan. I have performed a substantive portion of the the medical decision making. Pt is s/p CABG 12/20/22. Patient just got extubated but was very somnolent. Could not engage in a conversation at this time.Mostly complaining of chest discomfort. No known history of diabetes per records. Patient has CKD stage 3. Creatinine from 2016 was 1.3. BG stable, 125-138 today. Pt has not been initiated on insulin drip. No pressors. Noted LHC results. EF 72%. No family available. Lab Results Component Value Date HGBA1C 5.4 12/18/2022 Lab Results Component Value Date GLUCOSE 128 (H) 12/20/2022 CALCIUM 8.4 12/20/2022 NA 139 12/20/2022 K 4.5 12/20/2022 CO2 21 (L) 12/20/2022 CL 111 (H) 12/20/2022 BUN 21 (H) 12/20/2022 CREATININE 1.41 (H) 12/20/2022 BP (!) 146/99 Pulse 87 Temp 37.1 C (98.8 F) Resp 19 Ht 5' 11 (1.803 m) Wt 225 lb (102 kg) SpO2 97% PF 55 L/min BMI 31.38 kg/m Somnolent, not in distress, on O2 per NC, RRR, chest incision intact, good pulses, decreased breathsounds, +chest tubes, abdomen soft, distended, non- tender, no edema, +bandage on LLE. Dx: Stress hyperglycemia. CAD s/p CABG. CKD 3. Plan: - will continue insulin infusion per protocol then transition to subcutaneous insulin - continue blood glucose monitoring - patient will unlikely require any pharmacotherapy on discharge for hyperglycemia - will follow Total time 25 minutes which include review of records, counseling, management, and coordination of care as documented in note. [id number] NoteArterial Line: Date/Time: 12/20/2022 8:09 AM An arterial line was placed Procedure performed using ultrasound guidance - Image permanently retained with wire or catheter in vein.in the Procedural for the following indication(s): continuous blood pressure monitoring and blood sampling needed. A 20 gauge (size), 1 and 3/4 inch (length), Arrow (type) catheter was placed, into the Left radial artery, secured by Tegaderm and tape. Events: patient tolerated procedure well with no complications. Staffing Performed: anesthesiologist Anesthesiologist: Pato Duarte [facility]05-25-2023 NoteCentral Venous Line: Date/Time: 12/20/2022 8:30 AM A central venous line was placed for the following indication(s): CVP monitoring. Sterility preparation included the following: provider hand hygiene performed prior to central venous catheter insertion, all 5 sterile barriers used (gloves, gown, cap, mask, large sterile drape) during central venous catheter insertion, antiseptic used during central venous catheter insertion and skin prep agent completely dried prior to procedure. Medical reason for not performing maximal sterile barrier technique: no The patient was placed in Trendelenburg position. Right internal jugular vein was prepped. The site was prepped with Chlorhexidine. Size: 8 Pashto Length: 16 Catheter type: introducer Number of Lumens: single lumen During the procedure, the following specific steps were taken: target vein identified, needle advanced into vein and blood aspirated and guidewire advanced into vein. Procedure performed using ultrasound guidance - Image permanently retained with wire or catheter in vein. Sterile gel and probe cover used in ultrasound-guided central venous catheter insertion. Intravenous verification was obtained by ultrasound. Post insertion care included: all ports aspirated, all ports flushed easily, guidewire removed intact, Biopatch applied, line sutured in place and dressing applied. During the procedure the patient experienced: patient tolerated procedure well with no complications. A non-oximetric, 7.5 (size) Pulmonary Artery Catheter (PAC) was placed through the Introducer CVL in the right internal jugular vein. The PAC placement was confirmed by pressure tracing changes and CLYDE. The patient experienced the following events during the procedure: no complications. Staffing Performed: SECRETARY BOARD OF COMMISSIONERS Resident/SECRETARY BOARD OF COMMISSIONERS: Coleman Osei APRN - [facility]05-25-2023 NoteAirway Date/Time: 12/20/2022 8:10 AM Urgency: scheduled General Information and Staff Patient location during procedure: Procedural Anesthesiologist: Pato Duarte DO Resident/SECRETARY BOARD OF COMMISSIONERS: Coleman Osei APRN - [employer] Performed: anesthesiologist Indications and Patient Condition Indications for airway management: anesthesia and airway protection Sedation level: Asleep Preoxygenated: yes Patient position: sniffing MILS maintained throughout Mask difficulty assessment: 1 - vent by mask Final Airway Details Final airway type: endotracheal airway Successful airway: ETT Cuffed: yes Successful intubation technique: video laryngoscopy Endotracheal tube insertion site: oral Blade: Pacheco Blade size: #4 ETT size (mm): 8.0 Cormack-Lehane Classification: grade I - full view of glottis Placement verified by: chest auscultation and capnometry Measured from: gums ETT to gums (cm): 24 Number of attempts at approach: 1 Number of other approaches attempted: [address] [place], [place] 2808105-25-2023 Note Patient: Jesus Alberto Guevara Jr. Procedure Information Date/Time: 12/20/22 0800 Procedures: CABG, TRANSESOPHAGEAL ECHOCARDIOGRAPHY (Chest) Echocardiography transesophageal real-time Location: [facility] OR Operating Room Surgeons: Humza Nickerson MD he was transferred from [facility] due to a positive stress test with inferior WMA, EKG changes, t-wave inversions in the inferior leads. 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 His EF was 75% on LV gram and during the stress test was measured at 65% - Normal LVEDP. He does have CKD baseline creat of 1.42. Cath 12/17/22 [facility] [address]. Khan LAD 80% lesion CX 80% lesion RCA 95% Echo Interpretation Summary ? ? Left?Ventricle: Left ventricle size is normal. Mildly increased wall thickness. Normal left ventricular systolic function. EF by 2D Simpsons Biplane is 69%. See diagram for wall motion findings. ? Right?Ventricle: Right ventricle size is normal. Normal systolic function. ? Aortic?Valve: Mild to moderate (1-2+) regurgitation. ? Mitral?Valve: Mild (1+) regurgitation. Relevant Problems Cardio (+) CAD in [place] artery Past Medical History: No past medical history on file. Past Surgical History: No past surgical history on file. Social History: TOBACCO: has no history on file for tobacco use. ETOH: has no history on file for alcohol use. Social History Substance and Sexual Activity Drug Use Not on file Family History: No family history on file. Screening: unknown Clinical information reviewed: Allergies Meds Med Hx Surg Hx Fam Hx Soc Hx Physical Exam Airway Mallampati: II Cardiovascular Dental (+) chipped Pulmonary Abdominal Anesthesia Plan ASA 4 general The patient is a current smoker. Anesthetic plan and risks discussed with patient. Use of blood products discussed with who consented to blood products. patient is NPO MIGUEL Screening Labs: Lab Results Component Value Date WBC 7.3 12/20/2022 HGB 14.6 12/20/2022 HCT 42.9 12/20/2022 MCV 86.1 12/20/2022 PLT 154 12/20/2022 Lab Results Component Value Date NA 138 12/20/2022 K 4.1 12/20/2022 CL 110 (H) 12/20/2022 CO2 26 12/20/2022 BUN 23 (H) 12/20/2022 CREATININE 1.58 (H) 12/20/2022 GLUCOSE 93 12/20/2022 CALCIUM 8.2 (L) 12/20/2022 PROT 6.7 12/18/2022 ALKPHOS 74 12/18/2022 AST 51 (H) 12/18/2022 ALT 41 12/18/2022 EGFR 43.7 (L) 12/20/2022 Pain Score: Scheduled Transthoracic echocardiogram (TTE) complete with contrast, bubble, strain, and 3D PRN Result Date: 12/19/2022 ? Left?Ventricle: Left ventricle size is normal. Mildly increased wall thickness. Normal left ventricular systolic function. EF by 2D Simpsons Biplane is 69%. See diagram for wall motion findings. ? Right?Ventricle: Right ventricle size is normal. Normal systolic function. ? Aortic?Valve: Mild to moderate (1-2+) regurgitation. ? Mitral?Valve: Mild (1+) regurgitation. 12/18/22 ECG 12-LEAD 12/19/2022 9:21 AM (Final) Impression Sinus bradycardia Nonspecific T abnormalities, lateral leads Electronically Signed On 12-19-2022 9:21:36 EDT by Nathan Alvarez Signed by: Nathan Alvarez MD on 12/19/2022 9:21 [facility] 12-20-2022 Consult note* Shayan Emerson APRN - EXPERIMENTAL WELDER - 12/20/2022 7:06 AM EDT Images from the original note were not included. 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 Today he was transferred from [facility] due to a positive stress test with inferior WMA, EKG changes, t-wave inversions in the inferior leads. 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 His EF was 75% on LV gram and during the stress test was measured at 65% - Normal LVEDP. He does have CKD baseline creat of 1.42. Other labs are unremarkable. He did not get loaded with P2Y12 therapy at [place], he is on BB, asa, statin and has a PMH of stenting 10 years ago, HTN, HLD. Did have a TIA after quitting ASA at one time. He is a formerpipe-smoker and occasionally uses ETOH. He elected for CABG x [address] Nickerson - His EF is preserved and no significant Valve disease. He consented and went to surgery today and had CABG x 4.The intra -op phase was uneventful. Patient arrived to the unit, intubated and sedated. Surgical hand off completed below. Review of Systems Reason unable to perform ROS: Intubated and sedated. Surgical Hand-Off Arrival Time in HLU: 115 Surgery: Nickerson: CABG x 4 Complications/Pertinent Events: Gtts OR report Epinephrine: Norepinephrine: Phenylephrine: Vasopressin: Nitroglycerin: Nitroprusside: Dobutamine: Milrinone: Propofol: Insulin: Amicar: 29 Current gtts upon arrival Epinephrine: Norepinephrine: Phenylephrine: Vasopressin: Nitroglycerin: Nitroprusside: Dobutamine: Milrinone: Propofol: Insulin: Amicar: 29 Devices: Epicardial wires: yes [x] no [] Type: Ventricular [x] Atrial [] Mode: back up IABP: yes [] no [x] Mode: LVAD: yes [] no [x] Speed: Equipment: Back up controller yes [] no [x] Other: Blood Transfusions Intra Op: yes [] no [x] pRBC: FFP: Cryo: PLT: CellSaver: 600 Medications given en route: Last Paralytic: Vital Signs including Cardiac Numbers (if indicated) at Conclusion of Hand-off OR HLU CO 4.6 CI 2.0 CVP 10 SVR 1008 PAP 45/23 Additional Interventions/Misc during Handoff None Allergies: Patient has no known allergies. Past Medical History: has no past medical history on file. Past Surgical History: has no past surgical history on file. Social History: Nonsmoker No ETOH No Illicit drugs Family History: family history is not on file. Medications: Prior to Admission medications Not on File Objective: BP (!) 136/96 (BP Location: Left arm, Patient Position: Lying) Pulse 52 Temp 36.7 C (98 F) (Temporal) Resp 18 Ht 5' 11 (1.803 m) Wt 225 lb 4.8 oz (102 kg) SpO2 93% BMI 31.42 kg/m Intake/Output Summary (Last 24 hours) at 12/20/2022 0707 Last data filed at 12/19/20221999 Gross per 24 hour Intake 240 ml Output 300 ml Net -60 ml Physical Exam Constitutional: Interventions: He is sedated and intubated. HENT: Mouth/Throat: Comments: ETT in place Neck: Vascular: No JVD. Trachea: Trachea normal. Cardiovascular: Rate and Rhythm: Normal rate and regular rhythm. Pulses: Radial pulses are 2+ on the right side and 2+ on the left side. Heart sounds: Normal heart sounds, S1 normal and S2 normal. Pulmonary: Effort: He is intubated. Breath sounds: Decreased breath sounds present. Abdominal: General: Bowel sounds are absent. Musculoskeletal: Right lower leg: No edema. Left lower leg: No edema. Skin: Findings: Bruising and ecchymosis present. Comments: Surgical dressing dry and intact Diagnostics: Reviewed in EMR Labs: Reviewed in EMR BMP: Recent Labs 12/18/22 1342 12/19/22 0616 12/20/22 0006 NA 135 137 138 K 4.8 4.3 4.1 CL 105 109* 110* CO2 26 24 26 BUN 18 23* CREATININE 1.28* 1.29* 1.58* CALCIUM 8.5 8.0* 8.2* CBC: Recent Labs 12/18/22 1342 12/19/22 0616 12/20/22 0006 WBC 7.3 7.4 7.3 HGB 15.9 14.5 14.6 HCT 48.0 42.8 42.9 PLT 167 154 154 MCV 88.2 86.2 86.1 RDW 13.9 13.8 13.6 INR: No results for input(s): INR in the last 72 hours. Assessment: MVCAD Prior PCI of LAD CKD III HTN HLD Post operative Pulm Management: Normal Post-operative Course Post-operative Atrial Fibrillation: []Yes [x] No Acute blood loss anemia/consumptive None Plan: - KASSANDRA on CKD - Dr. Armenta is following - CXR verified placement - advance swan to wedge of 10 mmHg balloon down placed at 47 CM - Reversal with sugammdex - Hemodynamic goals: CI >2.0, SBP 90-130 mmHg, MAP 60-75 - PRN Hypertension 1st option Cardene gtt 2nd option or if Cardene unavailable Nitro -PRN Hypotension CI >2.0 euvolemic with low SVR- Levophed gtt CI <2.0 euvolemic - Epinephrine gtt - Temp pacing wires/mode: VVI back up - Chest tubes: no air leak or fluctuation noted, suction -20cm - Cefazolin - surgical prophy for 5 doses total - Wean to Extubation: Arrival Time in unit: 7:30pm - Vent: ACVC+, TV 6ml/kg/min, rate 12, fio2 100% PEEP 8 VAP protocol: HOB >30 degrees; peridex BID - HgbA1c: WNL - Blood glucose - Insulin gtt; per endo/protocol - GI prophy: Protonix IV daily Patient treatment plan and plan of care discuss with Dr. Wesley Cardiac Core Medications: NA pt is POD 0 EF: 55% 12/18 Blood Conservation: None noted in post-operative period DVT prophylaxis: TEDs and SCDs Restraints: none [employer]: [facility] Associated attestation - Octavia Wesley MD - 12/20/2022 3:48 PM EDT I have personally performed a hhvr-er-ayys diagnostic evaluation on this patient on date of service12/20/22. History, labs, imaging studies, and electronic medical record have been reviewed by me. This note documented by the []warehouse unloader [x]LUCHO reflects my history, exam, and medical decision making. I have reviewed and agree with the care plan. Changes were made in the orders as necessary. ROSdocumentation was reviewed and negative unless otherwise stated in HPI. Additional pertinent interval history, ROS, and physical exam findings: Uncomplicated 4 vessel CABG Arrived to ICU on propofol infusion and cell saver. Assessment: MV CAD s.p. CABG CKD stage 3 Post op pulmonary management, normal post OP course Plan: Wean to fast track extubation, patient passed SBT and was extubated to NC, adjusted swan, follow urine and Cr. Sugamadex was given. Standard post OP orders placed. Rest of care as per LUCHO note Total critical care time for this patient with life-threatening unstable organ failure, including direct patient contact, management of life support systems, review of data including imaging and labs, and discussions with other team members and physicians at least 32 min so far today, excluding procedures. ttwick Phone: [phone] Note* Care Coordination - Angelia Frausto RN - 12/19/2022 1:20 PM EDT Care Managment Initial Assessment Date: 12/19/2022 Patient Name: Jesus Alberto Guevara Jr. : 1940 Patient Information Source of Information: Patient Cognition/Language: WFL - Within Functional Limits Permission given to speak with patient sales and marketing representative/caregiver as indicated: Yes Confirmation of Payer with patient/family: Yes Payer Name: Anthem Medicare [place]: No Confirmation of Primary Care Physician: Confirmed PCP Name: Dr. Zayas Seen in last 2 years?: Yes Primary Caregiver: Self If assistance needed, confirmed caregiver ready, willing and able to care for patient at discharge: Confirmed with: Living Arrangements Current Residence: Private Residence (renovated barn) Number of Floors 3 Number of Entry Steps: Bed/Bath Levels: Both first floor Facility: Facility Name: Plan to Return: Lives with: Spouse/significant other Support Systems: Spouse/significant other Activities of Daily Living Ambulation: Independent Bathing/Dressing: Independent Elimination/Continence/Toileting: Independent Feeding: Independent Who Assists with Activities of Daily Living: Instrumental Activities of Daily Living Prescription Coverage: Yes Pharmacy Used: [facility] Medication Management: Independent Transportation/Shopping: Independent Transportation Mode: Car Needs Assistance with Transportation at Discharge: No Meal Preparation: Independent Laundry/Cleaning: Independent Finances/Bill Paying: Independent Communication: Independent Types of Care Services/Equipment Utilized Care Services: Dialysis Type: Durable Medical Equipment: (has some DME if needed) Patient's Goal/Discharge Plan Patient expects to be discharged to: home Discharge Planning Actions: Continue to follow Patient's Choice Rights and [employer] and Collaborative Relationships Disclosed as Indicated for Post-Acute Care: Interdisciplinary Team Engagement: PT/OT, Home Health Care Social Work Referral for: Additional Information: Patient admitted to HLU multivessel CAD. CTS planning surgery tomorrow. Spoke with patient at bedside, introduced self and role. Patient from home with , is independent, will have a ride home and requested MONTOYA to follow for home care needs post operatively. Angelia Frausto RN [facility] [id number] Note* Care Coordination - Angelia Frausto RN - 12/19/2022 1:20 PM EDT Care Managment Initial Assessment Date: 12/19/2022 Patient Name: Jesus Alberto Guevara Jr. : 1940 Patient Information Source of Information: Patient Cognition/Language: WFL - Within Functional Limits Permission given to speak with patient sales and marketing representative/caregiver as indicated: Yes Confirmation of Payer with patient/family: Yes Payer Name: Anthem Medicare : No Confirmation of Primary Care Physician: Confirmed PCP Name: Dr. Zayas Seen in last 2 years?: Yes Primary Caregiver: Self If assistance needed, confirmed caregiver ready, willing and able to care for patient at discharge: Confirmed with: Living Arrangements Current Residence: Private Residence (renovated barn) Number of Floors 3 Number of Entry Steps: Bed/Bath Levels: Both first floor Facility: Facility Name: Plan to Return: Lives with: Spouse/significant other Support Systems: Spouse/significant other Activities of Daily Living Ambulation: Independent Bathing/Dressing: Independent Elimination/Continence/Toileting: Independent Feeding: Independent Who Assists with Activities of Daily Living: Instrumental Activities of Daily Living Prescription Coverage: Yes Pharmacy Used: [facility] Medication Management: Independent Transportation/Shopping: Independent Transportation Mode: Car Needs Assistance with Transportation at Discharge: No Meal Preparation: Independent Laundry/Cleaning: Independent Finances/Bill Paying: Independent Communication: Independent Types of Care Services/Equipment Utilized Care Services: Dialysis Type: Durable Medical Equipment: (has some DME if needed) Patient's Goal/Discharge Plan Patient expects to be discharged to: home Discharge Planning Actions: Continue to follow Patient's Choice Rights and [employer] and Collaborative Relationships Disclosed as Indicated for Post-Acute Care: Interdisciplinary Team Engagement: PT/OT, Home Health Care Social Work Referral for: Additional Information: Patient admitted to HLU multivessel CAD. CTS planning surgery tomorrow. Spoke with patient at bedside, introduced self and role. Patient from home with , is independent, will have a ride home and requested MONTOYA to follow for home care needs post operatively. Angelia Frausto RN [facility] [id number] Consult note* Tommie Armenta MD - 12/19/2022 9:47 AM EDT Associated Order(s): IP CONSULT TO NEPHROLOGY [facility] [place] [address] [place] [address] Consult Note Patient's Name: Jesus Alberto Guevara Jr. 9:47 AM 12/19/2022 Reason for Consult: CKD History of Present Ilness: Jesus Alberto Guevara Jr. is a 82 y.o. male with PMH including HTN, HLD, TIA, who presented from [facility] due to positive stress test with inferior WMA, EKG changes, had LHC done which showed MVCAD. Patient has followed with Dr. Gimenez as outpatient physician gynecologist. Patient reports feeling sleepy, but denies pain, dyspnea, N/V/D, LUTS. History reviewed. No pertinent past medical history. History reviewed. No pertinent surgical history. No family history on file. Allergies: Patient has no known allergies. Medications: No current facility-administered medications on file prior to encounter. No current outpatient medications on file prior to encounter. Review of Systems: ROS as in HPI Physical exam: BP (!) 159/96 (BP Location: Left arm, Patient Position: Lying) Pulse 61 Temp 36.6 C (97.9 F) (Core) Resp 16 Ht 1.803 m (5' 11) Wt 103 kg (227 lb) SpO2 96% BMI 31.66 kg/m General: NAD, alert Chest: bilateral vesicular breath sounds Cardiac: S1, S2 Abdomen: soft SKIN: dry Extremities: no lower extremity edema Labs: Recent Labs 12/18/22 1342 12/19/22 0616 WBC 7.3 7.4 HGB 15.9 14.5 HCT 48.0 42.8 MCV 88.2 86.2 PLT 167 154 Recent Labs 12/18/22 1342 12/19/22 0616 NA 135 137 K 4.8 4.3 CL 105 109* CO2 26 24 GLUCOSE 100 94 BUN 18 18 CREATININE 1.28* 1.29* Ionized Calcium: No components found for: IONCA Magnesium: No results found for: MG Phosphorus: No results found for: PHOS Input / Output: 24 HR: Intake/Output Summary (Last 24 hours) at 12/19/2022 0947 Last data filed at 12/19/2022 0900 Gross per 24 hour Intake 1764 ml Output 650 ml Net 1114 ml IV Intake: P.O. (mL): 240 mL Olmedo: Imaging: CXR: IMPRESSION: No acute pulmonary process. Assessment: Jesus Alberto Guevara is a 82 y.o. male with PMH including HTN, HLD, TIA, who presented from [facility] due to positive stress test with inferior WMA, EKG changes, had LHC done which showed MVCAD. Nephrology consulted for CKD. CKD- stage 3, recently Scr stable ~1.3mg/dl -non-oliguric recently HTN- BP with some elevation recently, monitor Volume- no overt fluid overload Acid/base- appears compensated on recent value Plan: -monitor renal function, electrolytes -noted plan for surgery tomorrow NARAYAN Martin CNP Pt seen and examined independently by me. I reviewed with SABINE Wadsworth the medical history and the findings on physical examination. I discussed the patient s diagnosis and concur with the treatment plan as documented in his note. Please call [phone] or message me through [employer] with any questions or concerns. [id number] Plan of care note* Care Plan - Phillip Seymour RN - 12/19/2022 9:04 AM EDT The patient is Moderately Stable - Low risk of patient condition declining or worsening The patient's goals for the shift include The clinical goals for the shift include Problem: Safety Goal: Patient will be injury free during hospitalization Outcome: Progressing Goal: I will remain free of falls Outcome: Progressing [facility] [id number] Telephone encounter Note* Telephone Encounter - Dayana Paulson - 12/18/2022 5:22 PM EDT Name of caller: Felicita Contact phone number: [phone] Relationship to Patient: [facility] Insurance Provider: Dr. Nickerson Practice: [facility] Cardiothoracic Surgery Chief Complaint/Reason for Call: Felicita states they need authorization for his surgery on 12/20/24. Please advise. Best time of day caller can be reached: any Patient advised that office/PCP has 24-48 business hours to return their call: N/A [facility] [id number] Miscellaneous Notes* Telephone Encounter - Dayana Paulson - 12/18/2022 5:22 PM EDT Name of caller: Felicita Contact phone number: [phone] Relationship to Patient: [facility] Insurance Provider: Dr. Nickerson Practice: [facility] Cardiothoracic Surgery Chief Complaint/Reason for Call: Felicita states they need authorization for his surgery on 12/20/24. Please advise. Best time of day caller can be reached: any Patient advised that office/PCP has 24-48 business hours to return their call: N/A documented in this [facility]05-23-2023 [facility]: Cardiothoracic Surgery H&P PATIENT NAME: Jesus Alberto Guevara Jr. : 1940 (82 y.o.) TODAY'S DATE: 12/18/2022 DATE OF ADMISSION: 12/18/2022 1:16 PM Reason - CAD Consulting Provider: Dr. 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 Today he was transferred from [facility] due to a positive stress testing with inferior WMA, EKG changes t-wave inversions in the inferior leads. 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 His EF was 75% on LV gram and during the stress test was measured at 65% - Normal LVEDP. He does have CKD baseline creat of 1.42. Other labs are unremarkable. He did not get loaded with P2Y12 therapy at [place], he is on BB, asa, statin and has a PMH of stenting 10 years ago, HTN, HLD. Did have a TIA after quitting ASA at one time. He is a poor informant and is a former pipe-smoker and occasionally uses ETOH. 12/17/22 [facility] [address]. Khan LAD 80% lesion CX 80% lesion RCA 95% Pictures of the cath images are pending 12/17/22 EKG showed non specific changes in the posterior leads 12/17/22 Stress Test Positive Exercise perfusion with inferior WMA EF preserved at 62% Review of Systems Constitutional: Negative for appetite change, diaphoresis, fatigue, fever and unexpected weight change. HENT: Negative for congestion and dental problem. Eyes: Negative for pain, redness and visual disturbance. Respiratory: Negative for cough, choking, chest tightness, shortness of breath and wheezing. Gastrointestinal: Negative for abdominal distention, abdominal pain, blood in stool, constipation, diarrhea, nausea and vomiting. Endocrine: Negative for cold intolerance and heat intolerance. Genitourinary: Negative for difficulty urinating and frequency. Musculoskeletal: Negative for arthralgias, back pain, gait problem and joint swelling. Skin: Negative for color change, pallor, rash and wound. Allergic/Immunologic: Negative for immunocompromised state. Neurological: Negative for dizziness, seizures, syncope, speech difficulty, weakness, light-headedness and numbness. Hematological: Does not bruise/bleed easily. Psychiatric/Behavioral: Negative for confusion, decreased concentration and sleep disturbance. The patient is not nervous/anxious. Allergies: Patient has no known allergies. Past Medical History: HTN HLD CKD CAD with PCI >15 years ago Past Surgical History: Gallbladder Removal Social History: Former Pipe Smoker Occ ETOH use Family History: family history is not on file. Medications: Prior to Admission medications Not on File Objective: Vitals: , , BP Method: Automatic Resp: 18 Temp: 36.9 ?C (98.4 ?F), Temp Source: Oral No intake or output data in the 24 hours ending 12/18/22 1412 Physical Exam Constitutional: General: He is not in acute distress. Appearance: Normal appearance. HENT: Head: Normocephalic and atraumatic. Right Ear: External ear normal. Left Ear: External ear normal. Nose: Nose normal. Mouth/Throat: Lips: [place]. Dentition: Normal dentition. Tongue: No lesions. Tongue does not deviate from midline. Eyes: General: Lids are normal. Conjunctiva/sclera: Conjunctivae normal. Neck: Thyroid: No thyroid mass or thyromegaly. Trachea: Trachea normal. Cardiovascular: Rate and Rhythm: Normal rate and regular rhythm. Pulses: No decreased pulses. Heart sounds: Normal heart sounds. Heart sounds not distant. No murmur heard. No friction rub. Pulmonary: Effort: Pulmonary effort is normal. No accessory muscle usage. Breath sounds: Normal breath sounds and air entry. No stridor or decreased air movement. Abdominal: General: Bowel sounds are normal. Palpations: There is no mass. Tenderness: There is no abdominal tenderness. Hernia: No hernia is present. Musculoskeletal: Cervical back: Full passive range of motion without pain. No rigidity or crepitus. No pain with movement. Right lower leg: No edema. Left lower leg: No edema. Skin: General: Skin is warm. Capillary Refill: Capillary refill takes less than 2 seconds. Findings: No lesion, rash or wound. Comments: Color normal for ethnicity Neurological: Mental Status: He is alert. Psychiatric: Attention and Perception: Attention normal. Mood and Affect: Mood and affect normal. Behavior: Behavior is cooperative. Cognition and Memory: He does not exhibit impaired recent memory or impaired remote memory. Judgment: Judgment normal. Diagnostics: Reviewed in EMR Labs: Reviewed in EMR BMP:No results for input(s): NA, K, CL, CO2, BUN, CREATININE, CALCIUM, MG, PHOS in the last 72 hours. CBC: No results for input(s): WBC, H (more content not included)...[facility] [id number] Evaluation note* Diagnosis Onset Date Resolution Status History of coronary artery stent placement February 06, 2013 chronic Hyperlipidemia chronic [facility] Work Phone: evaluation note* Diagnosis Onset Date Resolution Status Encounter for screening for COVID-19 acute COVID-19 acute [facility] Work Phone: evaluation noteNo assessment information available [facility] Work Phone: [email or web address] note* Diagnosis Onset Date Resolution Status Acute upper respiratory infection acute Contact with or suspected ex posure to other viral communicable disease acute [facility] Work Phone: evalufytuz note* Diagnosis CAD in [place] artery- Primary CAD in [place] artery S/P CABG (coronary artery bypass graft) Postsurgical aortocoronary bypass status documented in this encounter [facility] FileThis note* Diagnosis S/P CABG (coronary artery bypass graft)- Primary Postsurgical aortocoronary bypass status documented in this encounter [facility] FileThis note* Diagnosis S/P CABG (coronary artery bypass graft)- Primary Postsurgical aortocoronary bypass status documented in this encounter [facility] FileThis note* Diagnosis Onset Date Resolution Status Abnormal stress test acute Coronary artery disease acut e Elevated blood pressure reading acute Hyperlipidemia acute Chest pain resolved Hyperlipidemia acute Postoperative atrial fibrillation acute S/P CABG x 4 December 20, 2022 acute [facility] Work Phone: evaluation note* Diagnosis Onset Date Resolution Status Acute cervical myofascial strain acute Closed head injury acute Fall acute Inability to ambulate due to multiple joints acute [facility] Work Phone: Instructions* Name Dates Details Patient Instructions Indication:Nonsmoker Start:04-May-2021 Instruction Type:Provider Instructions for Treatment How to Access Health Informa tion Online using Patient Portal and 3rd [employer] Apps Indication:Nonsmoker Start:04-May-2021 Instruction Type:Patient Education Patient Instructions Indication:Nonsmoker Start:14-Apr-2021 Instruction Type:Provider Instructions for Treatment How to Access Health Informa tion Online using Patient Portal and [employer]rd [employer] Apps Indication:Nonsmoker Start:14-Apr-2021 Instruction Type:Patient Education How to Access Health Informa tion Online using Patient Portal and [employer]rd [employer] Apps Indication:Nonsmoker Start:20-Oct-2020 Instruction Type:Patient Education Patient Instructions Indication:Nonsmoker Start:20-Oct-2020 Instruction Type:Provider Instructions for Treatment Patient Instructions Indication:BMI 30.0-30.9,adult Start:12-Oct-2020 Instruction Type:Provider Instructions for Treatment How to Access Health Informa tion Online using Patient Portal and [employer]rd [employer] Apps Indication:BMI 30.0-30.9,adult Start:12-Oct-2020 Instruction Type:Patient Education How to access health informa tion online Indication:Nonsmoker Start:06-Feb-2019 Instruction Type:Patient Education How to access health informa tion online - Detail Indication:Nonsmoker Start:06-Feb-2019 Instruction Type:Patient Education Patient Instructions Indication:Nonsmoker Start:06-Feb-2019 Instruction Type:Provider Instructions for Treatment How to access health informa tion online Indication:BMI 31.0-31.9,adult Start:19-Jan-2019 Instruction Type:Patient Education How to access health informa tion online - Detail Indication:BMI 31.0-31.9,adult Start:19-Jan-2019 Instruction Type:Patient Education Patient Instructions Indication:Tick bite, infected Start:19-Jan-2019 Instruction Type:Provider Instructions for Treatment How to access health informa tion online Indication:Nonsmoker Start:26-Nov-2018 Instruction Type:Patient Education How to access health informa tion online - Detail Indication:Nonsmoker Start:26-Nov-2018 Instruction Type:Patient Education Patient Instructions Indication:Nonsmoker Start:26-Nov-2018 Instruction Type:Provider Instructions for Treatment Patient Instructions Indication:Nonsmoker Start:26-Nov-2018 Instruction Type:Provider Instructions for Treatment How to access health informa tion online Indication:Nonsmoker Start:04-Nov-2018 Instruction Type:Patient Education How to access health informa tion online - Detail Indication:Nonsmoker Start:04-Nov-2018 Instruction Type:Patient Education Patient Instructions Indication:Nonsmoker Start:04-Nov-2018 Instruction Type:Provider Instructions for Treatment How to access health informa tion online Indication:Obesity (BMI 30.0-34.9) Start:09-Oct-2018 Instruction Type:Patient Education How to access health informa tion online Indication:Obesity (BMI 30.0-34.9) Start:09-Oct-2018 Instruction Type:Patient Education Patient Instructions Indication:Obesity (BMI 30.0-34.9) Start:09-Oct-2018 Instruction Type:Provider Instructions for Treatment How to access health informa tion online Indication:Nonsmoker Start:26-Aug-2017 Instruction Type:Patient Education How to access health informa tion online - Detail Indication:Nonsmoker Start:26-Aug-2017 Instruction Type:Patient Education Patient Instructions Indication:Nonsmoker Start:26-Aug-2017 Instruction Type:Provider Instructions for Treatment How to access health informa tion online Indication:Nonsmoker Start:06-Dec-2016 Instruction Type:Patient Education How to access health informa tion online - Detail Indication:Nonsmoker Start:06-Dec-2016 Instruction Type:Patient Education Patient Instructions Indication:Nonsmoker Start:06-Dec-2016 Instruction Type:Provider Instructions for Treatment Patient Instructions Indication:Encounter for Medicare annual wellness exam Start:10-Feb-2016 Instruction Type:Provider Instructions for Treatment How to access health informa tion online Indication:Fibromyalgia Start:03-Jun-2015 Instruction Type:Patient Education How to access health informa tion online - Detail Indication:Fibromyalgia Start:03-Jun-2015 Instruction Type:Patient Education Patient Instructions Indication:Fibromyalgia Start:03-Jun-2015 Instruction Type:Provider Instructions for Treatment Patient Instructions Indication:Upper respiratory disease Start:01-Dec-2014 Instruction Type:Provider Instructions for Treatment obesity counseling Indication:Coronary artery disease Start:08-Jul-2014 Instruction Type:Provider Instructions for Treatment obesity counseling Indication:Coronary artery disease Start:08-Jul-2014 Instruction Type:Provider Instructions for Treatment Patient Instructions Indication:Hypercholesterolemia Start:09-Dec-2013 Instruction Type:Provider Instructions for Treatment [facility]; [facility] Work Phone: Instructions* Name Dates Details How to access health informa tion online Indication:Nonsmoker Start:06-Feb-2019 Instruction Type:Patient Education How to access health informa tion online - Detail Indication:Nonsmoker Start:06-Feb-2019 Instruction Type:Patient Education Patient Instructions Indication:Nonsmoker Start:06-Feb-2019 Instruction Type:Provider Instructions for Treatment How to access health informa tion online Indication:BMI 31.0-31.9,adult Start:19-Jan-2019 Instruction Type:Patient Education How to access health informa tion online - Detail Indication:BMI 31.0-31.9,adult Start:19-Jan-2019 Instruction Type:Patient Education Patient Instructions Indication:Tick bite, infected Start:19-Jan-2019 Instruction Type:Provider Instructions for Treatment How to access health informa tion online Indication:Nonsmoker Start:26-Nov-2018 Instruction Type:Patient Education How to access health informa tion online - Detail Indication:Nonsmoker Start:26-Nov-2018 Instruction Type:Patient Education Patient Instructions Indication:Nonsmoker Start:26-Nov-2018 Instruction Type:Provider Instructions for Treatment Patient Instructions Indication:Nonsmoker Start:26-Nov-2018 Instruction Type:Provider Instructions for Treatment How to access health informa tion online Indication:Nonsmoker Start:04-Nov-2018 Instruction Type:Patient Education How to access health informa tion online - Detail Indication:Nonsmoker Start:04-Nov-2018 Instruction Type:Patient Education Patient Instructions Indication:Nonsmoker Start:04-Nov-2018 Instruction Type:Provider Instructions for Treatment How to access health informa tion online Indication:Obesity (BMI 30.0-34.9) Start:09-Oct-2018 Instruction Type:Patient Education How to access health informa tion online Indication:Obesity (BMI 30.0-34.9) Start:09-Oct-2018 Instruction Type:Patient Education Patient Instructions Indication:Obesity (BMI 30.0-34.9) Start:09-Oct-2018 Instruction Type:Provider Instructions for Treatment How to access health informa tion online Indication:Nonsmoker Start:26-Aug-2017 Instruction Type:Patient Education How to access health informa tion online - Detail Indication:Nonsmoker Start:26-Aug-2017 Instruction Type:Patient Education Patient Instructions Indication:Nonsmoker Start:26-Aug-2017 Instruction Type:Provider Instructions for Treatment How to access health informa tion online Indication:Nonsmoker Start:06-Dec-2016 Instruction Type:Patient Education How to access health informa tion online - Detail Indication:Nonsmoker Start:06-Dec-2016 Instruction Type:Patient Education Patient Instructions Indication:Nonsmoker Start:06-Dec-2016 Instruction Type:Provider Instructions for Treatment Patient Instructions Indication:Encounter for Medicare annual wellness exam Start:10-Feb-2016 Instruction Type:Provider Instructions for Treatment How to access health informa tion online Indication:Fibromyalgia Start:03-Jun-2015 Instruction Type:Patient Education How to access health informa tion online - Detail Indication:Fibromyalgia Start:03-Jun-2015 Instruction Type:Patient Education Patient Instructions Indication:Fibromyalgia Start:03-Jun-2015 Instruction Type:Provider Instructions for Treatment Patient Instructions Indication:Upper respiratory disease Start:01-Dec-2014 Instruction Type:Provider Instructions for Treatment obesity counseling Indication:Coronary artery disease Start:08-Jul-2014 Instruction Type:Provider Instructions for Treatment obesity counseling Indication:Coronary artery disease Start:08-Jul-2014 Instruction Type:Provider Instructions for Treatment Patient Instructions Indication:Hypercholesterolemia Start:09-Dec-2013 Instruction Type:Provider Instructions for Treatment [facility] Work Phone: Instructions* Name Dates Details Patient Instructions Indication:BMI 30.0-30.9,adult Start:26-Oct-2021 Instruction Type:Provider Instructions for Treatment How to Access Health Informa tion Online using Patient Portal and [employer]rd [employer] Apps Indication:BMI 30.0-30.9,adult Start:26-Oct-2021 Instruction Type:Patient Education Patient Instructions Indication:BMI 30.0-30.9,adult Start:29-Aug-2021 Instruction Type:Provider Instructions for Treatment How to Access Health Informa tion Online using Patient Portal and [employer]rd [employer] Apps Indication:BMI 30.0-30.9,adult Start:29-Aug-2021 Instruction Type:Patient Education Patient Instructions Indication:Nonsmoker Start:04-May-2021 Instruction Type:Provider Instructions for Treatment How to Access Health Informa tion Online using Patient Portal and 3rd [employer] Apps Indication:Nonsmoker Start:04-May-2021 Instruction Type:Patient Education Patient Instructions Indication:Nonsmoker Start:14-Apr-2021 Instruction Type:Provider Instructions for Treatment How to Access Health Informa tion Online using Patient Portal and [employer]rd [employer] Apps Indication:Nonsmoker Start:14-Apr-2021 Instruction Type:Patient Education How to Access Health Informa tion Online using Patient Portal and [employer]rd [employer] Apps Indication:Nonsmoker Start:20-Oct-2020 Instruction Type:Patient Education Patient Instructions Indication:Nonsmoker Start:20-Oct-2020 Instruction Type:Provider Instructions for Treatment Patient Instructions Indication:BMI 30.0-30.9,adult Start:12-Oct-2020 Instruction Type:Provider Instructions for Treatment How to Access Health Informa tion Online using Patient Portal and [employer]rd [employer] Apps Indication:BMI 30.0-30.9,adult Start:12-Oct-2020 Instruction Type:Patient Education How to access health informa tion online Indication:Nonsmoker Start:06-Feb-2019 Instruction Type:Patient Education How to access health informa tion online - Detail Indication:Nonsmoker Start:06-Feb-2019 Instruction Type:Patient Education Patient Instructions Indication:Nonsmoker Start:06-Feb-2019 Instruction Type:Provider Instructions for Treatment How to access health informa tion online Indication:BMI 31.0-31.9,adult Start:19-Jan-2019 Instruction Type:Patient Education How to access health informa tion online - Detail Indication:BMI 31.0-31.9,adult Start:19-Jan-2019 Instruction Type:Patient Education Patient Instructions Indication:Tick bite, infected Start:19-Jan-2019 Instruction Type:Provider Instructions for Treatment How to access health informa tion online Indication:Nonsmoker Start:26-Nov-2018 Instruction Type:Patient Education How to access health informa tion online - Detail Indication:Nonsmoker Start:26-Nov-2018 Instruction Type:Patient Education Patient Instructions Indication:Nonsmoker Start:26-Nov-2018 Instruction Type:Provider Instructions for Treatment Patient Instructions Indication:Nonsmoker Start:26-Nov-2018 Instruction Type:Provider Instructions for Treatment How to access health informa tion online Indication:Nonsmoker Start:04-Nov-2018 Instruction Type:Patient Education How to access health informa tion online - Detail Indication:Nonsmoker Start:04-Nov-2018 Instruction Type:Patient Education Patient Instructions Indication:Nonsmoker Start:04-Nov-2018 Instruction Type:Provider Instructions for Treatment How to access health informa tion online Indication:Obesity (BMI 30.0-34.9) Start:09-Oct-2018 Instruction Type:Patient Education How to access health informa tion online Indication:Obesity (BMI 30.0-34.9) Start:09-Oct-2018 Instruction Type:Patient Education Patient Instructions Indication:Obesity (BMI 30.0-34.9) Start:09-Oct-2018 Instruction Type:Provider Instructions for Treatment How to access health informa tion online Indication:Nonsmoker Start:26-Aug-2017 Instruction Type:Patient Education How to access health informa tion online - Detail Indication:Nonsmoker Start:26-Aug-2017 Instruction Type:Patient Education Patient Instructions Indication:Nonsmoker Start:26-Aug-2017 Instruction Type:Provider Instructions for Treatment How to access health informa tion online Indication:Nonsmoker Start:06-Dec-2016 Instruction Type:Patient Education How to access health informa tion online - Detail Indication:Nonsmoker Start:06-Dec-2016 Instruction Type:Patient Education Patient Instructions Indication:Nonsmoker Start:06-Dec-2016 Instruction Type:Provider Instructions for Treatment Patient Instructions Indication:Encounter for Medicare annual wellness exam Start:10-Feb-2016 Instruction Type:Provider Instructions for Treatment How to access health informa tion online Indication:Fibromyalgia Start:03-Jun-2015 Instruction Type:Patient Education How to access health informa tion online - Detail Indication:Fibromyalgia Start:03-Jun-2015 Instruction Type:Patient Education Patient Instructions Indication:Fibromyalgia Start:03-Jun-2015 Instruction Type:Provider Instructions for Treatment Patient Instructions Indication:Upper respiratory disease Start:01-Dec-2014 Instruction Type:Provider Instructions for Treatment obesity counseling Indication:Coronary artery disease Start:08-Jul-2014 Instruction Type:Provider Instructions for Treatment obesity counseling Indication:Coronary artery disease Start:08-Jul-2014 Instruction Type:Provider Instructions for Treatment Patient Instructions Indication:Hypercholesterolemia Start:09-Dec-2013 Instruction Type:Provider Instructions for Treatment [facility]; [facility] Work Phone: Instructions* Name Dates Details Patient Instructions Indication:BMI 30.0-30.9,adult Start:26-Oct-2021 Instruction Type:Provider Instructions for Treatment How to Access Health Informa tion Online using Patient Portal and [employer]rd [employer] Apps Indication:BMI 30.0-30.9,adult Start:26-Oct-2021 Instruction Type:Patient Education Patient Instructions Indication:BMI 30.0-30.9,adult Start:29-Aug-2021 Instruction Type:Provider Instructions for Treatment How to Access Health Informa tion Online using Patient Portal and [employer]rd [employer] Apps Indication:BMI 30.0-30.9,adult Start:29-Aug-2021 Instruction Type:Patient Education Patient Instructions Indication:Nonsmoker Start:04-May-2021 Instruction Type:Provider Instructions for Treatment How to Access Health Informa tion Online using Patient Portal and [employer]rd [employer] Apps Indication:Nonsmoker Start:04-May-2021 Instruction Type:Patient Education Patient Instructions Indication:Nonsmoker Start:14-Apr-2021 Instruction Type:Provider Instructions for Treatment How to Access Health Informa tion Online using Patient Portal and [employer]rd [employer] Apps Indication:Nonsmoker Start:14-Apr-2021 Instruction Type:Patient Education How to Access Health Informa tion Online using Patient Portal and [employer]rd [employer] Apps Indication:Nonsmoker Start:20-Oct-2020 Instruction Type:Patient Education Patient Instructions Indication:Nonsmoker Start:20-Oct-2020 Instruction Type:Provider Instructions for Treatment Patient Instructions Indication:BMI 30.0-30.9,adult Start:12-Oct-2020 Instruction Type:Provider Instructions for Treatment How to Access Health Informa tion Online using Patient Portal and [employer]rd [employer] Apps Indication:BMI 30.0-30.9,adult Start:12-Oct-2020 Instruction Type:Patient Education How to access health informa tion online Indication:Nonsmoker Start:06-Feb-2019 Instruction Type:Patient Education How to access health informa tion online - Detail Indication:Nonsmoker Start:06-Feb-2019 Instruction Type:Patient Education Patient Instructions Indication:Nonsmoker Start:06-Feb-2019 Instruction Type:Provider Instructions for Treatment How to access health informa tion online Indication:BMI 31.0-31.9,adult Start:19-Jan-2019 Instruction Type:Patient Education How to access health informa tion online - Detail Indication:BMI 31.0-31.9,adult Start:19-Jan-2019 Instruction Type:Patient Education Patient Instructions Indication:Tick bite, infected Start:19-Jan-2019 Instruction Type:Provider Instructions for Treatment How to access health informa tion online Indication:Nonsmoker Start:26-Nov-2018 Instruction Type:Patient Education How to access health informa tion online - Detail Indication:Nonsmoker Start:26-Nov-2018 Instruction Type:Patient Education Patient Instructions Indication:Nonsmoker Start:26-Nov-2018 Instruction Type:Provider Instructions for Treatment Patient Instructions Indication:Nonsmoker Start:26-Nov-2018 Instruction Type:Provider Instructions for Treatment How to access health informa tion online Indication:Nonsmoker Start:04-Nov-2018 Instruction Type:Patient Education How to access health informa tion online - Detail Indication:Nonsmoker Start:04-Nov-2018 Instruction Type:Patient Education Patient Instructions Indication:Nonsmoker Start:04-Nov-2018 Instruction Type:Provider Instructions for Treatment How to access health informa tion online Indication:Obesity (BMI 30.0-34.9) Start:09-Oct-2018 Instruction Type:Patient Education How to access health informa tion online Indication:Obesity (BMI 30.0-34.9) Start:09-Oct-2018 Instruction Type:Patient Education Patient Instructions Indication:Obesity (BMI 30.0-34.9) Start:09-Oct-2018 Instruction Type:Provider Instructions for Treatment How to access health informa tion online Indication:Nonsmoker Start:26-Aug-2017 Instruction Type:Patient Education How to access health informa tion online - Detail Indication:Nonsmoker Start:26-Aug-2017 Instruction Type:Patient Education Patient Instructions Indication:Nonsmoker Start:26-Aug-2017 Instruction Type:Provider Instructions for Treatment How to access health informa tion online Indication:Nonsmoker Start:06-Dec-2016 Instruction Type:Patient Education How to access health informa tion online - Detail Indication:Nonsmoker Start:06-Dec-2016 Instruction Type:Patient Education Patient Instructions Indication:Nonsmoker Start:06-Dec-2016 Instruction Type:Provider Instructions for Treatment Patient Instructions Indication:Encounter for Medicare annual wellness exam Start:10-Feb-2016 Instruction Type:Provider Instructions for Treatment How to access health informa tion online Indication:Fibromyalgia Start:03-Jun-2015 Instruction Type:Patient Education How to access health informa tion online - Detail Indication:Fibromyalgia Start:03-Jun-2015 Instruction Type:Patient Education Patient Instructions Indication:Fibromyalgia Start:03-Jun-2015 Instruction Type:Provider Instructions for Treatment Patient Instructions Indication:Upper respiratory disease Start:01-Dec-2014 Instruction Type:Provider Instructions for Treatment obesity counseling Indication:Coronary artery disease Start:08-Jul-2014 Instruction Type:Provider Instructions for Treatment obesity counseling Indication:Coronary artery disease Start:08-Jul-2014 Instruction Type:Provider Instructions for Treatment Patient Instructions Indication:Hypercholesterolemia Start:09-Dec-2013 Instruction Type:Provider Instructions for Treatment [facility]; [facility] Work Phone: Instructions* Name Dates Details Patient Instructions Indication:BMI 30.0-30.9,adult Start:26-Oct-2021 Instruction Type:Provider Instructions for Treatment How to Access Health Informa tion Online using Patient Portal and [employer]rd [employer] Apps Indication:BMI 30.0-30.9,adult Start:26-Oct-2021 Instruction Type:Patient Education Patient Instructions Indication:BMI 30.0-30.9,adult Start:29-Aug-2021 Instruction Type:Provider Instructions for Treatment How to Access Health Informa tion Online using Patient Portal and [employer] Apps Indication:BMI 30.0-30.9,adult Start:29-Aug-2021 Instruction Type:Patient Education Patient Instructions Indication:Nonsmoker Start:04-May-2021 Instruction Type:Provider Instructions for Treatment How to Access Health Informa tion Online using Patient Portal and [employer] Apps Indication:Nonsmoker Start:04-May-2021 Instruction Type:Patient Education Patient Instructions Indication:Nonsmoker Start:14-Apr-2021 Instruction Type:Provider Instructions for Treatment How to Access Health Informa tion Online using Patient Portal and [employer] Apps Indication:Nonsmoker Start:14-Apr-2021 Instruction Type:Patient Education How to Access Health Informa tion Online using Patient Portal and [employer] Apps Indication:Nonsmoker Start:20-Oct-2020 Instruction Type:Patient Education Patient Instructions Indication:Nonsmoker Start:20-Oct-2020 Instruction Type:Provider Instructions for Treatment Patient Instructions Indication:BMI 30.0-30.9,adult Start:12-Oct-2020 Instruction Type:Provider Instructions for Treatment How to Access Health Informa tion Online using Patient Portal and [employer] Apps Indication:BMI 30.0-30.9,adult Start:12-Oct-2020 Instruction Type:Patient Education How to access health informa tion online Indication:Nonsmoker Start:06-Feb-2019 Instruction Type:Patient Education How to access health informa tion online - Detail Indication:Nonsmoker Start:06-Feb-2019 Instruction Type:Patient Education Patient Instructions Indication:Nonsmoker Start:06-Feb-2019 Instruction Type:Provider Instructions for Treatment How to access health informa tion online Indication:BMI 31.0-31.9,adult Start:19-Jan-2019 Instruction Type:Patient Education How to access health informa tion online - Detail Indication:BMI 31.0-31.9,adult Start:19-Jan-2019 Instruction Type:Patient Education Patient Instructions Indication:Tick bite, infected Start:19-Jan-2019 Instruction Type:Provider Instructions for Treatment How to access health informa tion online Indication:Nonsmoker Start:26-Nov-2018 Instruction Type:Patient Education How to access health informa tion online - Detail Indication:Nonsmoker Start:26-Nov-2018 Instruction Type:Patient Education Patient Instructions Indication:Nonsmoker Start:26-Nov-2018 Instruction Type:Provider Instructions for Treatment Patient Instructions Indication:Nonsmoker Start:26-Nov-2018 Instruction Type:Provider Instructions for Treatment How to access health informa tion online Indication:Nonsmoker Start:04-Nov-2018 Instruction Type:Patient Education How to access health informa tion online - Detail Indication:Nonsmoker Start:04-Nov-2018 Instruction Type:Patient Education Patient Instructions Indication:Nonsmoker Start:04-Nov-2018 Instruction Type:Provider Instructions for Treatment How to access health informa tion online Indication:Obesity (BMI 30.0-34.9) Start:09-Oct-2018 Instruction Type:Patient Education How to access health informa tion online Indication:Obesity (BMI 30.0-34.9) Start:09-Oct-2018 Instruction Type:Patient Education Patient Instructions Indication:Obesity (BMI 30.0-34.9) Start:09-Oct-2018 Instruction Type:Provider Instructions for Treatment How to access health informa tion online Indication:Nonsmoker Start:26-Aug-2017 Instruction Type:Patient Education How to access health informa tion online - Detail Indication:Nonsmoker Start:26-Aug-2017 Instruction Type:Patient Education Patient Instructions Indication:Nonsmoker Start:26-Aug-2017 Instruction Type:Provider Instructions for Treatment How to access health informa tion online Indication:Nonsmoker Start:06-Dec-2016 Instruction Type:Patient Education How to access health informa tion online - Detail Indication:Nonsmoker Start:06-Dec-2016 Instruction Type:Patient Education Patient Instructions Indication:Nonsmoker Start:06-Dec-2016 Instruction Type:Provider Instructions for Treatment Patient Instructions Indication:Encounter for Medicare annual wellness exam Start:10-Feb-2016 Instruction Type:Provider Instructions for Treatment How to access health informa tion online Indication:Fibromyalgia Start:03-Jun-2015 Instruction Type:Patient Education How to access health informa tion online - Detail Indication:Fibromyalgia Start:03-Jun-2015 Instruction Type:Patient Education Patient Instructions Indication:Fibromyalgia Start:03-Jun-2015 Instruction Type:Provider Instructions for Treatment Patient Instructions Indication:Upper respiratory disease Start:01-Dec-2014 Instruction Type:Provider Instructions for Treatment obesity counseling Indication:Coronary artery disease Start:08-Jul-2014 Instruction Type:Provider Instructions for Treatment obesity counseling Indication:Coronary artery disease Start:08-Jul-2014 Instruction Type:Provider Instructions for Treatment Patient Instructions Indication:Hypercholesterolemia Start:09-Dec-2013 Instruction Type:Provider Instructions for Treatment [facility]; [facility] Work Phone: Instructions* Name Dates Details Patient Instructions Indication:Nonsmoker Start:31-Jan-2022 Instruction Type:Provider Instructions for Treatment How to Access Health Informa tion Online using Patient Portal and [employer]rd [employer] Apps Indication:Nonsmoker Start:31-Jan-2022 Instruction Type:Patient Education Patient Instructions Indication:BMI 30.0-30.9,adult Start:26-Oct-2021 Instruction Type:Provider Instructions for Treatment How to Access Health Informa tion Online using Patient Portal and [employer]rd [employer] Apps Indication:BMI 30.0-30.9,adult Start:26-Oct-2021 Instruction Type:Patient Education Patient Instructions Indication:BMI 30.0-30.9,adult Start:29-Aug-2021 Instruction Type:Provider Instructions for Treatment How to Access Health Informa tion Online using Patient Portal and [employer]rd [employer] Apps Indication:BMI 30.0-30.9,adult Start:29-Aug-2021 Instruction Type:Patient Education Patient Instructions Indication:Nonsmoker Start:04-May-2021 Instruction Type:Provider Instructions for Treatment How to Access Health Informa tion Online using Patient Portal and [employer] Apps Indication:Nonsmoker Start:04-May-2021 Instruction Type:Patient Education Patient Instructions Indication:Nonsmoker Start:14-Apr-2021 Instruction Type:Provider Instructions for Treatment How to Access Health Informa tion Online using Patient Portal and [employer] Apps Indication:Nonsmoker Start:14-Apr-2021 Instruction Type:Patient Education How to Access Health Informa tion Online using Patient Portal and [employer] Apps Indication:Nonsmoker Start:20-Oct-2020 Instruction Type:Patient Education Patient Instructions Indication:Nonsmoker Start:20-Oct-2020 Instruction Type:Provider Instructions for Treatment Patient Instructions Indication:BMI 30.0-30.9,adult Start:12-Oct-2020 Instruction Type:Provider Instructions for Treatment How to Access Health Informa tion Online using Patient Portal and [employer] Apps Indication:BMI 30.0-30.9,adult Start:12-Oct-2020 Instruction Type:Patient Education How to access health informa tion online Indication:Nonsmoker Start:06-Feb-2019 Instruction Type:Patient Education How to access health informa tion online - Detail Indication:Nonsmoker Start:06-Feb-2019 Instruction Type:Patient Education Patient Instructions Indication:Nonsmoker Start:06-Feb-2019 Instruction Type:Provider Instructions for Treatment How to access health informa tion online Indication:BMI 31.0-31.9,adult Start:19-Jan-2019 Instruction Type:Patient Education How to access health informa tion online - Detail Indication:BMI 31.0-31.9,adult Start:19-Jan-2019 Instruction Type:Patient Education Patient Instructions Indication:Tick bite, infected Start:19-Jan-2019 Instruction Type:Provider Instructions for Treatment How to access health informa tion online Indication:Nonsmoker Start:26-Nov-2018 Instruction Type:Patient Education How to access health informa tion online - Detail Indication:Nonsmoker Start:26-Nov-2018 Instruction Type:Patient Education Patient Instructions Indication:Nonsmoker Start:26-Nov-2018 Instruction Type:Provider Instructions for Treatment Patient Instructions Indication:Nonsmoker Start:26-Nov-2018 Instruction Type:Provider Instructions for Treatment How to access health informa tion online Indication:Nonsmoker Start:04-Nov-2018 Instruction Type:Patient Education How to access health informa tion online - Detail Indication:Nonsmoker Start:04-Nov-2018 Instruction Type:Patient Education Patient Instructions Indication:Nonsmoker Start:04-Nov-2018 Instruction Type:Provider Instructions for Treatment How to access health informa tion online Indication:Obesity (BMI 30.0-34.9) Start:09-Oct-2018 Instruction Type:Patient Education How to access health informa tion online Indication:Obesity (BMI 30.0-34.9) Start:09-Oct-2018 Instruction Type:Patient Education Patient Instructions Indication:Obesity (BMI 30.0-34.9) Start:09-Oct-2018 Instruction Type:Provider Instructions for Treatment How to access health informa tion online Indication:Nonsmoker Start:26-Aug-2017 Instruction Type:Patient Education How to access health informa tion online - Detail Indication:Nonsmoker Start:26-Aug-2017 Instruction Type:Patient Education Patient Instructions Indication:Nonsmoker Start:26-Aug-2017 Instruction Type:Provider Instructions for Treatment How to access health informa tion online Indication:Nonsmoker Start:06-Dec-2016 Instruction Type:Patient Education How to access health informa tion online - Detail Indication:Nonsmoker Start:06-Dec-2016 Instruction Type:Patient Education Patient Instructions Indication:Nonsmoker Start:06-Dec-2016 Instruction Type:Provider Instructions for Treatment Patient Instructions Indication:Encounter for Medicare annual wellness exam Start:10-Feb-2016 Instruction Type:Provider Instructions for Treatment How to access health informa tion online Indication:Fibromyalgia Start:03-Jun-2015 Instruction Type:Patient Education How to access health informa tion online - Detail Indication:Fibromyalgia Start:03-Jun-2015 Instruction Type:Patient Education Patient Instructions Indication:Fibromyalgia Start:03-Jun-2015 Instruction Type:Provider Instructions for Treatment Patient Instructions Indication:Upper respiratory disease Start:01-Dec-2014 Instruction Type:Provider Instructions for Treatment obesity counseling Indication:Coronary artery disease Start:08-Jul-2014 Instruction Type:Provider Instructions for Treatment obesity counseling Indication:Coronary artery disease Start:08-Jul-2014 Instruction Type:Provider Instructions for Treatment Patient Instructions Indication:Hypercholesterolemia Start:09-Dec-2013 Instruction Type:Provider Instructions for Treatment [facility]; [facility] Work Phone: Instructions* Name Dates Details Patient Instructions Indication:Nonsmoker Start:31-Jan-2022 Instruction Type:Provider Instructions for Treatment How to Access Health Informa tion Online using Patient Portal and [employer] Apps Indication:Nonsmoker Start:31-Jan-2022 Instruction Type:Patient Education Patient Instructions Indication:BMI 30.0-30.9,adult Start:26-Oct-2021 Instruction Type:Provider Instructions for Treatment How to Access Health Informa tion Online using Patient Portal and [employer] Apps Indication:BMI 30.0-30.9,adult Start:26-Oct-2021 Instruction Type:Patient Education Patient Instructions Indication:BMI 30.0-30.9,adult Start:29-Aug-2021 Instruction Type:Provider Instructions for Treatment How to Access Health Informa tion Online using Patient Portal and [employer] Apps Indication:BMI 30.0-30.9,adult Start:29-Aug-2021 Instruction Type:Patient Education Patient Instructions Indication:Nonsmoker Start:04-May-2021 Instruction Type:Provider Instructions for Treatment How to Access Health Informa tion Online using Patient Portal and [employer] Apps Indication:Nonsmoker Start:04-May-2021 Instruction Type:Patient Education Patient Instructions Indication:Nonsmoker Start:14-Apr-2021 Instruction Type:Provider Instructions for Treatment How to Access Health Informa tion Online using Patient Portal and [employer] Apps Indication:Nonsmoker Start:14-Apr-2021 Instruction Type:Patient Education How to Access Health Informa tion Online using Patient Portal and [employer] Apps Indication:Nonsmoker Start:20-Oct-2020 Instruction Type:Patient Education Patient Instructions Indication:Nonsmoker Start:20-Oct-2020 Instruction Type:Provider Instructions for Treatment Patient Instructions Indication:BMI 30.0-30.9,adult Start:12-Oct-2020 Instruction Type:Provider Instructions for Treatment How to Access Health Informa tion Online using Patient Portal and [employer] Apps Indication:BMI 30.0-30.9,adult Start:12-Oct-2020 Instruction Type:Patient Education How to access health informa tion online Indication:Nonsmoker Start:06-Feb-2019 Instruction Type:Patient Education How to access health informa tion online - Detail Indication:Nonsmoker Start:06-Feb-2019 Instruction Type:Patient Education Patient Instructions Indication:Nonsmoker Start:06-Feb-2019 Instruction Type:Provider Instructions for Treatment How to access health informa tion online Indication:BMI 31.0-31.9,adult Start:19-Jan-2019 Instruction Type:Patient Education How to access health informa tion online - Detail Indication:BMI 31.0-31.9,adult Start:19-Jan-2019 Instruction Type:Patient Education Patient Instructions Indication:Tick bite, infected Start:19-Jan-2019 Instruction Type:Provider Instructions for Treatment How to access health informa tion online Indication:Nonsmoker Start:26-Nov-2018 Instruction Type:Patient Education How to access health informa tion online - Detail Indication:Nonsmoker Start:26-Nov-2018 Instruction Type:Patient Education Patient Instructions Indication:Nonsmoker Start:26-Nov-2018 Instruction Type:Provider Instructions for Treatment Patient Instructions Indication:Nonsmoker Start:26-Nov-2018 Instruction Type:Provider Instructions for Treatment How to access health informa tion online Indication:Nonsmoker Start:04-Nov-2018 Instruction Type:Patient Education How to access health informa tion online - Detail Indication:Nonsmoker Start:04-Nov-2018 Instruction Type:Patient Education Patient Instructions Indication:Nonsmoker Start:04-Nov-2018 Instruction Type:Provider Instructions for Treatment How to access health informa tion online Indication:Obesity (BMI 30.0-34.9) Start:09-Oct-2018 Instruction Type:Patient Education How to access health informa tion online Indication:Obesity (BMI 30.0-34.9) Start:09-Oct-2018 Instruction Type:Patient Education Patient Instructions Indication:Obesity (BMI 30.0-34.9) Start:09-Oct-2018 Instruction Type:Provider Instructions for Treatment How to access health informa tion online Indication:Nonsmoker Start:26-Aug-2017 Instruction Type:Patient Education How to access health informa tion online - Detail Indication:Nonsmoker Start:26-Aug-2017 Instruction Type:Patient Education Patient Instructions Indication:Nonsmoker Start:26-Aug-2017 Instruction Type:Provider Instructions for Treatment How to access health informa tion online Indication:Nonsmoker Start:06-Dec-2016 Instruction Type:Patient Education How to access health informa tion online - Detail Indication:Nonsmoker Start:06-Dec-2016 Instruction Type:Patient Education Patient Instructions Indication:Nonsmoker Start:06-Dec-2016 Instruction Type:Provider Instructions for Treatment Patient Instructions Indication:Encounter for Medicare annual wellness exam Start:10-Feb-2016 Instruction Type:Provider Instructions for Treatment How to access health informa tion online Indication:Fibromyalgia Start:03-Jun-2015 Instruction Type:Patient Education How to access health informa tion online - Detail Indication:Fibromyalgia Start:03-Jun-2015 Instruction Type:Patient Education Patient Instructions Indication:Fibromyalgia Start:03-Jun-2015 Instruction Type:Provider Instructions for Treatment Patient Instructions Indication:Upper respiratory disease Start:01-Dec-2014 Instruction Type:Provider Instructions for Treatment obesity counseling Indication:Coronary artery disease Start:08-Jul-2014 Instruction Type:Provider Instructions for Treatment obesity counseling Indication:Coronary artery disease Start:08-Jul-2014 Instruction Type:Provider Instructions for Treatment Patient Instructions Indication:Hypercholesterolemia Start:09-Dec-2013 Instruction Type:Provider Instructions for Treatment [facility]; [facility] Work Phone: Instructions* Name Dates Details Patient Instructions Indication:Nonsmoker Start:31-Jan-2022 Instruction Type:Provider Instructions for Treatment How to Access Health Informa tion Online using Patient Portal and [employer] Apps Indication:Nonsmoker Start:31-Jan-2022 Instruction Type:Patient Education Patient Instructions Indication:BMI 30.0-30.9,adult Start:26-Oct-2021 Instruction Type:Provider Instructions for Treatment How to Access Health Informa tion Online using Patient Portal and [employer] Apps Indication:BMI 30.0-30.9,adult Start:26-Oct-2021 Instruction Type:Patient Education Patient Instructions Indication:BMI 30.0-30.9,adult Start:29-Aug-2021 Instruction Type:Provider Instructions for Treatment How to Access Health Informa tion Online using Patient Portal and [employer] Apps Indication:BMI 30.0-30.9,adult Start:29-Aug-2021 Instruction Type:Patient Education Patient Instructions Indication:Nonsmoker Start:04-May-2021 Instruction Type:Provider Instructions for Treatment How to Access Health Informa tion Online using Patient Portal and [employer] Apps Indication:Nonsmoker Start:04-May-2021 Instruction Type:Patient Education Patient Instructions Indication:Nonsmoker Start:14-Apr-2021 Instruction Type:Provider Instructions for Treatment How to Access Health Informa tion Online using Patient Portal and [employer] Apps Indication:Nonsmoker Start:14-Apr-2021 Instruction Type:Patient Education How to Access Health Informa tion Online using Patient Portal and [employer] Apps Indication:Nonsmoker Start:20-Oct-2020 Instruction Type:Patient Education Patient Instructions Indication:Nonsmoker Start:20-Oct-2020 Instruction Type:Provider Instructions for Treatment Patient Instructions Indication:BMI 30.0-30.9,adult Start:12-Oct-2020 Instruction Type:Provider Instructions for Treatment How to Access Health Informa tion Online using Patient Portal and [employer] Apps Indication:BMI 30.0-30.9,adult Start:12-Oct-2020 Instruction Type:Patient Education How to access health informa tion online Indication:Nonsmoker Start:06-Feb-2019 Instruction Type:Patient Education How to access health informa tion online - Detail Indication:Nonsmoker Start:06-Feb-2019 Instruction Type:Patient Education Patient Instructions Indication:Nonsmoker Start:06-Feb-2019 Instruction Type:Provider Instructions for Treatment How to access health informa tion online Indication:BMI 31.0-31.9,adult Start:19-Jan-2019 Instruction Type:Patient Education How to access health informa tion online - Detail Indication:BMI 31.0-31.9,adult Start:19-Jan-2019 Instruction Type:Patient Education Patient Instructions Indication:Tick bite, infected Start:19-Jan-2019 Instruction Type:Provider Instructions for Treatment How to access health informa tion online Indication:Nonsmoker Start:26-Nov-2018 Instruction Type:Patient Education How to access health informa tion online - Detail Indication:Nonsmoker Start:26-Nov-2018 Instruction Type:Patient Education Patient Instructions Indication:Nonsmoker Start:26-Nov-2018 Instruction Type:Provider Instructions for Treatment Patient Instructions Indication:Nonsmoker Start:26-Nov-2018 Instruction Type:Provider Instructions for Treatment How to access health informa tion online Indication:Nonsmoker Start:04-Nov-2018 Instruction Type:Patient Education How to access health informa tion online - Detail Indication:Nonsmoker Start:04-Nov-2018 Instruction Type:Patient Education Patient Instructions Indication:Nonsmoker Start:04-Nov-2018 Instruction Type:Provider Instructions for Treatment How to access health informa tion online Indication:Obesity (BMI 30.0-34.9) Start:09-Oct-2018 Instruction Type:Patient Education How to access health informa tion online Indication:Obesity (BMI 30.0-34.9) Start:09-Oct-2018 Instruction Type:Patient Education Patient Instructions Indication:Obesity (BMI 30.0-34.9) Start:09-Oct-2018 Instruction Type:Provider Instructions for Treatment How to access health informa tion online Indication:Nonsmoker Start:26-Aug-2017 Instruction Type:Patient Education How to access health informa tion online - Detail Indication:Nonsmoker Start:26-Aug-2017 Instruction Type:Patient Education Patient Instructions Indication:Nonsmoker Start:26-Aug-2017 Instruction Type:Provider Instructions for Treatment How to access health informa tion online Indication:Nonsmoker Start:06-Dec-2016 Instruction Type:Patient Education How to access health informa tion online - Detail Indication:Nonsmoker Start:06-Dec-2016 Instruction Type:Patient Education Patient Instructions Indication:Nonsmoker Start:06-Dec-2016 Instruction Type:Provider Instructions for Treatment Patient Instructions Indication:Encounter for Medicare annual wellness exam Start:10-Feb-2016 Instruction Type:Provider Instructions for Treatment How to access health informa tion online Indication:Fibromyalgia Start:03-Jun-2015 Instruction Type:Patient Education How to access health informa tion online - Detail Indication:Fibromyalgia Start:03-Jun-2015 Instruction Type:Patient Education Patient Instructions Indication:Fibromyalgia Start:03-Jun-2015 Instruction Type:Provider Instructions for Treatment Patient Instructions Indication:Upper respiratory disease Start:01-Dec-2014 Instruction Type:Provider Instructions for Treatment obesity counseling Indication:Coronary artery disease Start:08-Jul-2014 Instruction Type:Provider Instructions for Treatment obesity counseling Indication:Coronary artery disease Start:08-Jul-2014 Instruction Type:Provider Instructions for Treatment Patient Instructions Indication:Hypercholesterolemia Start:09-Dec-2013 Instruction Type:Provider Instructions for Treatment [facility]; [facility] Work Phone: Instructions* Name Dates Details How to Access Health Informa tion Online using Patient Portal and [employer] Apps Indication:Nonsmoker Start:03-May-2022 Instruction Type:Patient Education Patient Instructions Indication:Nonsmoker Start:03-May-2022 Instruction Type:Provider Instructions for Treatment Patient Instructions Indication:Nonsmoker Start:31-Jan-2022 Instruction Type:Provider Instructions for Treatment How to Access Health Informa tion Online using Patient Portal and [employer] Apps Indication:Nonsmoker Start:31-Jan-2022 Instruction Type:Patient Education Patient Instructions Indication:BMI 30.0-30.9,adult Start:26-Oct-2021 Instruction Type:Provider Instructions for Treatment How to Access Health Informa tion Online using Patient Portal and [employer] Apps Indication:BMI 30.0-30.9,adult Start:26-Oct-2021 Instruction Type:Patient Education Patient Instructions Indication:BMI 30.0-30.9,adult Start:29-Aug-2021 Instruction Type:Provider Instructions for Treatment How to Access Health Informa tion Online using Patient Portal and [employer] Apps Indication:BMI 30.0-30.9,adult Start:29-Aug-2021 Instruction Type:Patient Education Patient Instructions Indication:Nonsmoker Start:04-May-2021 Instruction Type:Provider Instructions for Treatment How to Access Health Informa tion Online using Patient Portal and [employer] Apps Indication:Nonsmoker Start:04-May-2021 Instruction Type:Patient Education Patient Instructions Indication:Nonsmoker Start:14-Apr-2021 Instruction Type:Provider Instructions for Treatment How to Access Health Informa tion Online using Patient Portal and [employer] Apps Indication:Nonsmoker Start:14-Apr-2021 Instruction Type:Patient Education How to Access Health Informa tion Online using Patient Portal and [employer] Apps Indication:Nonsmoker Start:20-Oct-2020 Instruction Type:Patient Education Patient Instructions Indication:Nonsmoker Start:20-Oct-2020 Instruction Type:Provider Instructions for Treatment Patient Instructions Indication:BMI 30.0-30.9,adult Start:12-Oct-2020 Instruction Type:Provider Instructions for Treatment How to Access Health Informa tion Online using Patient Portal and [employer] Apps Indication:BMI 30.0-30.9,adult Start:12-Oct-2020 Instruction Type:Patient Education How to access health informa tion online Indication:Nonsmoker Start:06-Feb-2019 Instruction Type:Patient Education How to access health informa tion online - Detail Indication:Nonsmoker Start:06-Feb-2019 Instruction Type:Patient Education Patient Instructions Indication:Nonsmoker Start:06-Feb-2019 Instruction Type:Provider Instructions for Treatment How to access health informa tion online Indication:BMI 31.0-31.9,adult Start:19-Jan-2019 Instruction Type:Patient Education How to access health informa tion online - Detail Indication:BMI 31.0-31.9,adult Start:19-Jan-2019 Instruction Type:Patient Education Patient Instructions Indication:Tick bite, infected Start:19-Jan-2019 Instruction Type:Provider Instructions for Treatment How to access health informa tion online Indication:Nonsmoker Start:26-Nov-2018 Instruction Type:Patient Education How to access health informa tion online - Detail Indication:Nonsmoker Start:26-Nov-2018 Instruction Type:Patient Education Patient Instructions Indication:Nonsmoker Start:26-Nov-2018 Instruction Type:Provider Instructions for Treatment Patient Instructions Indication:Nonsmoker Start:26-Nov-2018 Instruction Type:Provider Instructions for Treatment How to access health informa tion online Indication:Nonsmoker Start:04-Nov-2018 Instruction Type:Patient Education How to access health informa tion online - Detail Indication:Nonsmoker Start:04-Nov-2018 Instruction Type:Patient Education Patient Instructions Indication:Nonsmoker Start:04-Nov-2018 Instruction Type:Provider Instructions for Treatment How to access health informa tion online Indication:Obesity (BMI 30.0-34.9) Start:09-Oct-2018 Instruction Type:Patient Education How to access health informa tion online Indication:Obesity (BMI 30.0-34.9) Start:09-Oct-2018 Instruction Type:Patient Education Patient Instructions Indication:Obesity (BMI 30.0-34.9) Start:09-Oct-2018 Instruction Type:Provider Instructions for Treatment How to access health informa tion online Indication:Nonsmoker Start:26-Aug-2017 Instruction Type:Patient Education How to access health informa tion online - Detail Indication:Nonsmoker Start:26-Aug-2017 Instruction Type:Patient Education Patient Instructions Indication:Nonsmoker Start:26-Aug-2017 Instruction Type:Provider Instructions for Treatment How to access health informa tion online Indication:Nonsmoker Start:06-Dec-2016 Instruction Type:Patient Education How to access health informa tion online - Detail Indication:Nonsmoker Start:06-Dec-2016 Instruction Type:Patient Education Patient Instructions Indication:Nonsmoker Start:06-Dec-2016 Instruction Type:Provider Instructions for Treatment Patient Instructions Indication:Encounter for Medicare annual wellness exam Start:10-Feb-2016 Instruction Type:Provider Instructions for Treatment How to access health informa tion online Indication:Fibromyalgia Start:03-Jun-2015 Instruction Type:Patient Education How to access health informa tion online - Detail Indication:Fibromyalgia Start:03-Jun-2015 Instruction Type:Patient Education Patient Instructions Indication:Fibromyalgia Start:03-Jun-2015 Instruction Type:Provider Instructions for Treatment Patient Instructions Indication:Upper respiratory disease Start:01-Dec-2014 Instruction Type:Provider Instructions for Treatment obesity counseling Indication:Coronary artery disease Start:08-Jul-2014 Instruction Type:Provider Instructions for Treatment obesity counseling Indication:Coronary artery disease Start:08-Jul-2014 Instruction Type:Provider Instructions for Treatment Patient Instructions Indication:Hypercholesterolemia Start:09-Dec-2013 Instruction Type:Provider Instructions for Treatment [facility]; [facility] Work Phone: Instructions* Name Dates Details How to Access Health Informa tion Online using Patient Portal and [employer] Apps Indication:Nonsmoker Start:03-May-2022 Instruction Type:Patient Education Patient Instructions Indication:Nonsmoker Start:03-May-2022 Instruction Type:Provider Instructions for Treatment Patient Instructions Indication:Nonsmoker Start:31-Jan-2022 Instruction Type:Provider Instructions for Treatment How to Access Health Informa tion Online using Patient Portal and [employer] Apps Indication:Nonsmoker Start:31-Jan-2022 Instruction Type:Patient Education Patient Instructions Indication:BMI 30.0-30.9,adult Start:26-Oct-2021 Instruction Type:Provider Instructions for Treatment How to Access Health Informa tion Online using Patient Portal and [employer] Apps Indication:BMI 30.0-30.9,adult Start:26-Oct-2021 Instruction Type:Patient Education Patient Instructions Indication:BMI 30.0-30.9,adult Start:29-Aug-2021 Instruction Type:Provider Instructions for Treatment How to Access Health Informa tion Online using Patient Portal and [employer] Apps Indication:BMI 30.0-30.9,adult Start:29-Aug-2021 Instruction Type:Patient Education Patient Instructions Indication:Nonsmoker Start:04-May-2021 Instruction Type:Provider Instructions for Treatment How to Access Health Informa tion Online using Patient Portal and [employer] Apps Indication:Nonsmoker Start:04-May-2021 Instruction Type:Patient Education Patient Instructions Indication:Nonsmoker Start:14-Apr-2021 Instruction Type:Provider Instructions for Treatment How to Access Health Informa tion Online using Patient Portal and [employer] Apps Indication:Nonsmoker Start:14-Apr-2021 Instruction Type:Patient Education How to Access Health Informa tion Online using Patient Portal and [employer] Apps Indication:Nonsmoker Start:20-Oct-2020 Instruction Type:Patient Education Patient Instructions Indication:Nonsmoker Start:20-Oct-2020 Instruction Type:Provider Instructions for Treatment Patient Instructions Indication:BMI 30.0-30.9,adult Start:12-Oct-2020 Instruction Type:Provider Instructions for Treatment How to Access Health Informa tion Online using Patient Portal and [employer] Apps Indication:BMI 30.0-30.9,adult Start:12-Oct-2020 Instruction Type:Patient Education How to access health informa tion online Indication:Nonsmoker Start:06-Feb-2019 Instruction Type:Patient Education How to access health informa tion online - Detail Indication:Nonsmoker Start:06-Feb-2019 Instruction Type:Patient Education Patient Instructions Indication:Nonsmoker Start:06-Feb-2019 Instruction Type:Provider Instructions for Treatment How to access health informa tion online Indication:BMI 31.0-31.9,adult Start:19-Jan-2019 Instruction Type:Patient Education How to access health informa tion online - Detail Indication:BMI 31.0-31.9,adult Start:19-Jan-2019 Instruction Type:Patient Education Patient Instructions Indication:Tick bite, infected Start:19-Jan-2019 Instruction Type:Provider Instructions for Treatment How to access health informa tion online Indication:Nonsmoker Start:26-Nov-2018 Instruction Type:Patient Education How to access health informa tion online - Detail Indication:Nonsmoker Start:26-Nov-2018 Instruction Type:Patient Education Patient Instructions Indication:Nonsmoker Start:26-Nov-2018 Instruction Type:Provider Instructions for Treatment Patient Instructions Indication:Nonsmoker Start:26-Nov-2018 Instruction Type:Provider Instructions for Treatment How to access health informa tion online Indication:Nonsmoker Start:04-Nov-2018 Instruction Type:Patient Education How to access health informa tion online - Detail Indication:Nonsmoker Start:04-Nov-2018 Instruction Type:Patient Education Patient Instructions Indication:Nonsmoker Start:04-Nov-2018 Instruction Type:Provider Instructions for Treatment How to access health informa tion online Indication:Obesity (BMI 30.0-34.9) Start:09-Oct-2018 Instruction Type:Patient Education How to access health informa tion online Indication:Obesity (BMI 30.0-34.9) Start:09-Oct-2018 Instruction Type:Patient Education Patient Instructions Indication:Obesity (BMI 30.0-34.9) Start:09-Oct-2018 Instruction Type:Provider Instructions for Treatment How to access health informa tion online Indication:Nonsmoker Start:26-Aug-2017 Instruction Type:Patient Education How to access health informa tion online - Detail Indication:Nonsmoker Start:26-Aug-2017 Instruction Type:Patient Education Patient Instructions Indication:Nonsmoker Start:26-Aug-2017 Instruction Type:Provider Instructions for Treatment How to access health informa tion online Indication:Nonsmoker Start:06-Dec-2016 Instruction Type:Patient Education How to access health informa tion online - Detail Indication:Nonsmoker Start:06-Dec-2016 Instruction Type:Patient Education Patient Instructions Indication:Nonsmoker Start:06-Dec-2016 Instruction Type:Provider Instructions for Treatment Patient Instructions Indication:Encounter for Medicare annual wellness exam Start:10-Feb-2016 Instruction Type:Provider Instructions for Treatment How to access health informa tion online Indication:Fibromyalgia Start:03-Jun-2015 Instruction Type:Patient Education How to access health informa tion online - Detail Indication:Fibromyalgia Start:03-Jun-2015 Instruction Type:Patient Education Patient Instructions Indication:Fibromyalgia Start:03-Jun-2015 Instruction Type:Provider Instructions for Treatment Patient Instructions Indication:Upper respiratory disease Start:01-Dec-2014 Instruction Type:Provider Instructions for Treatment obesity counseling Indication:Coronary artery disease Start:08-Jul-2014 Instruction Type:Provider Instructions for Treatment obesity counseling Indication:Coronary artery disease Start:08-Jul-2014 Instruction Type:Provider Instructions for Treatment Patient Instructions Indication:Hypercholesterolemia Start:09-Dec-2013 Instruction Type:Provider Instructions for Treatment [facility]; [facility] Work Phone: Instructions* Name Dates Details How to Access Health Informa tion Online using Patient Portal and [employer] Apps Indication:Nonsmoker Start:03-May-2022 Instruction Type:Patient Education Patient Instructions Indication:Nonsmoker Start:03-May-2022 Instruction Type:Provider Instructions for Treatment Patient Instructions Indication:Nonsmoker Start:31-Jan-2022 Instruction Type:Provider Instructions for Treatment How to Access Health Informa tion Online using Patient Portal and [employer] Apps Indication:Nonsmoker Start:31-Jan-2022 Instruction Type:Patient Education Patient Instructions Indication:BMI 30.0-30.9,adult Start:26-Oct-2021 Instruction Type:Provider Instructions for Treatment How to Access Health Informa tion Online using Patient Portal and [employer] Apps Indication:BMI 30.0-30.9,adult Start:26-Oct-2021 Instruction Type:Patient Education Patient Instructions Indication:BMI 30.0-30.9,adult Start:29-Aug-2021 Instruction Type:Provider Instructions for Treatment How to Access Health Informa tion Online using Patient Portal and [employer] Apps Indication:BMI 30.0-30.9,adult Start:29-Aug-2021 Instruction Type:Patient Education Patient Instructions Indication:Nonsmoker Start:04-May-2021 Instruction Type:Provider Instructions for Treatment How to Access Health Informa tion Online using Patient Portal and [employer] Apps Indication:Nonsmoker Start:04-May-2021 Instruction Type:Patient Education Patient Instructions Indication:Nonsmoker Start:14-Apr-2021 Instruction Type:Provider Instructions for Treatment How to Access Health Informa tion Online using Patient Portal and [employer] Apps Indication:Nonsmoker Start:14-Apr-2021 Instruction Type:Patient Education How to Access Health Informa tion Online using Patient Portal and [employer] Apps Indication:Nonsmoker Start:20-Oct-2020 Instruction Type:Patient Education Patient Instructions Indication:Nonsmoker Start:20-Oct-2020 Instruction Type:Provider Instructions for Treatment Patient Instructions Indication:BMI 30.0-30.9,adult Start:12-Oct-2020 Instruction Type:Provider Instructions for Treatment How to Access Health Informa tion Online using Patient Portal and [employer] Apps Indication:BMI 30.0-30.9,adult Start:12-Oct-2020 Instruction Type:Patient Education How to access health informa tion online Indication:Nonsmoker Start:06-Feb-2019 Instruction Type:Patient Education How to access health informa tion online - Detail Indication:Nonsmoker Start:06-Feb-2019 Instruction Type:Patient Education Patient Instructions Indication:Nonsmoker Start:06-Feb-2019 Instruction Type:Provider Instructions for Treatment How to access health informa tion online Indication:BMI 31.0-31.9,adult Start:19-Jan-2019 Instruction Type:Patient Education How to access health informa tion online - Detail Indication:BMI 31.0-31.9,adult Start:19-Jan-2019 Instruction Type:Patient Education Patient Instructions Indication:Tick bite, infected Start:19-Jan-2019 Instruction Type:Provider Instructions for Treatment How to access health informa tion online Indication:Nonsmoker Start:26-Nov-2018 Instruction Type:Patient Education How to access health informa tion online - Detail Indication:Nonsmoker Start:26-Nov-2018 Instruction Type:Patient Education Patient Instructions Indication:Nonsmoker Start:26-Nov-2018 Instruction Type:Provider Instructions for Treatment Patient Instructions Indication:Nonsmoker Start:26-Nov-2018 Instruction Type:Provider Instructions for Treatment How to access health informa tion online Indication:Nonsmoker Start:04-Nov-2018 Instruction Type:Patient Education How to access health informa tion online - Detail Indication:Nonsmoker Start:04-Nov-2018 Instruction Type:Patient Education Patient Instructions Indication:Nonsmoker Start:04-Nov-2018 Instruction Type:Provider Instructions for Treatment How to access health informa tion online Indication:Obesity (BMI 30.0-34.9) Start:09-Oct-2018 Instruction Type:Patient Education How to access health informa tion online Indication:Obesity (BMI 30.0-34.9) Start:09-Oct-2018 Instruction Type:Patient Education Patient Instructions Indication:Obesity (BMI 30.0-34.9) Start:09-Oct-2018 Instruction Type:Provider Instructions for Treatment How to access health informa tion online Indication:Nonsmoker Start:26-Aug-2017 Instruction Type:Patient Education How to access health informa tion online - Detail Indication:Nonsmoker Start:26-Aug-2017 Instruction Type:Patient Education Patient Instructions Indication:Nonsmoker Start:26-Aug-2017 Instruction Type:Provider Instructions for Treatment How to access health informa tion online Indication:Nonsmoker Start:06-Dec-2016 Instruction Type:Patient Education How to access health informa tion online - Detail Indication:Nonsmoker Start:06-Dec-2016 Instruction Type:Patient Education Patient Instructions Indication:Nonsmoker Start:06-Dec-2016 Instruction Type:Provider Instructions for Treatment Patient Instructions Indication:Encounter for Medicare annual wellness exam Start:10-Feb-2016 Instruction Type:Provider Instructions for Treatment How to access health informa tion online Indication:Fibromyalgia Start:03-Jun-2015 Instruction Type:Patient Education How to access health informa tion online - Detail Indication:Fibromyalgia Start:03-Jun-2015 Instruction Type:Patient Education Patient Instructions Indication:Fibromyalgia Start:03-Jun-2015 Instruction Type:Provider Instructions for Treatment Patient Instructions Indication:Upper respiratory disease Start:01-Dec-2014 Instruction Type:Provider Instructions for Treatment obesity counseling Indication:Coronary artery disease Start:08-Jul-2014 Instruction Type:Provider Instructions for Treatment obesity counseling Indication:Coronary artery disease Start:08-Jul-2014 Instruction Type:Provider Instructions for Treatment Patient Instructions Indication:Hypercholesterolemia Start:09-Dec-2013 Instruction Type:Provider Instructions for Treatment [facility]; [facility] Work Phone: Instructions* Name Dates Details Patient Instructions Indication:GERD (gastroesophageal reflux disease) Start:22-Mar-2023 Instruction Type:Provider Instructions for Treatment How to Access Health Informa tion Online using Patient Portal and [employer] Apps Indication:GERD (gastroesophageal reflux disease) Start:22-Mar-2023 Instruction Type:Patient Education How to Access Health Informa tion Online using Patient Portal and [employer] Apps Indication:Nonsmoker Start:03-May-2022 Instruction Type:Patient Education Patient Instructions Indication:Nonsmoker Start:03-May-2022 Instruction Type:Provider Instructions for Treatment Patient Instructions Indication:Nonsmoker Start:31-Jan-2022 Instruction Type:Provider Instructions for Treatment How to Access Health Informa tion Online using Patient Portal and [employer] Apps Indication:Nonsmoker Start:31-Jan-2022 Instruction Type:Patient Education Patient Instructions Indication:BMI 30.0-30.9,adult Start:26-Oct-2021 Instruction Type:Provider Instructions for Treatment How to Access Health Informa tion Online using Patient Portal and [employer] Apps Indication:BMI 30.0-30.9,adult Start:26-Oct-2021 Instruction Type:Patient Education Patient Instructions Indication:BMI 30.0-30.9,adult Start:29-Aug-2021 Instruction Type:Provider Instructions for Treatment How to Access Health Informa tion Online using Patient Portal and [employer] Apps Indication:BMI 30.0-30.9,adult Start:29-Aug-2021 Instruction Type:Patient Education Patient Instructions Indication:Nonsmoker Start:04-May-2021 Instruction Type:Provider Instructions for Treatment How to Access Health Informa tion Online using Patient Portal and [employer] Apps Indication:Nonsmoker Start:04-May-2021 Instruction Type:Patient Education Patient Instructions Indication:Nonsmoker Start:14-Apr-2021 Instruction Type:Provider Instructions for Treatment How to Access Health Informa tion Online using Patient Portal and [employer] Apps Indication:Nonsmoker Start:14-Apr-2021 Instruction Type:Patient Education How to Access Health Informa tion Online using Patient Portal and [employer] Apps Indication:Nonsmoker Start:20-Oct-2020 Instruction Type:Patient Education Patient Instructions Indication:Nonsmoker Start:20-Oct-2020 Instruction Type:Provider Instructions for Treatment Patient Instructions Indication:BMI 30.0-30.9,adult Start:12-Oct-2020 Instruction Type:Provider Instructions for Treatment How to Access Health Informa tion Online using Patient Portal and [employer] Apps Indication:BMI 30.0-30.9,adult Start:12-Oct-2020 Instruction Type:Patient Education How to access health informa tion online Indication:Nonsmoker Start:06-Feb-2019 Instruction Type:Patient Education How to access health informa tion online - Detail Indication:Nonsmoker Start:06-Feb-2019 Instruction Type:Patient Education Patient Instructions Indication:Nonsmoker Start:06-Feb-2019 Instruction Type:Provider Instructions for Treatment How to access health informa tion online Indication:BMI 31.0-31.9,adult Start:19-Jan-2019 Instruction Type:Patient Education How to access health informa tion online - Detail Indication:BMI 31.0-31.9,adult Start:19-Jan-2019 Instruction Type:Patient Education Patient Instructions Indication:Tick bite, infected Start:19-Jan-2019 Instruction Type:Provider Instructions for Treatment How to access health informa tion online Indication:Nonsmoker Start:26-Nov-2018 Instruction Type:Patient Education How to access health informa tion online - Detail Indication:Nonsmoker Start:26-Nov-2018 Instruction Type:Patient Education Patient Instructions Indication:Nonsmoker Start:26-Nov-2018 Instruction Type:Provider Instructions for Treatment Patient Instructions Indication:Nonsmoker Start:26-Nov-2018 Instruction Type:Provider Instructions for Treatment How to access health informa tion online Indication:Nonsmoker Start:04-Nov-2018 Instruction Type:Patient Education How to access health informa tion online - Detail Indication:Nonsmoker Start:04-Nov-2018 Instruction Type:Patient Education Patient Instructions Indication:Nonsmoker Start:04-Nov-2018 Instruction Type:Provider Instructions for Treatment How to access health informa tion online Indication:Obesity (BMI 30.0-34.9) Start:09-Oct-2018 Instruction Type:Patient Education How to access health informa tion online Indication:Obesity (BMI 30.0-34.9) Start:09-Oct-2018 Instruction Type:Patient Education Patient Instructions Indication:Obesity (BMI 30.0-34.9) Start:09-Oct-2018 Instruction Type:Provider Instructions for Treatment How to access health informa tion online Indication:Nonsmoker Start:26-Aug-2017 Instruction Type:Patient Education How to access health informa tion online - Detail Indication:Nonsmoker Start:26-Aug-2017 Instruction Type:Patient Education Patient Instructions Indication:Nonsmoker Start:26-Aug-2017 Instruction Type:Provider Instructions for Treatment How to access health informa tion online Indication:Nonsmoker Start:06-Dec-2016 Instruction Type:Patient Education How to access health informa tion online - Detail Indication:Nonsmoker Start:06-Dec-2016 Instruction Type:Patient Education Patient Instructions Indication:Nonsmoker Start:06-Dec-2016 Instruction Type:Provider Instructions for Treatment Patient Instructions Indication:Encounter for Medicare annual wellness exam Start:10-Feb-2016 Instruction Type:Provider Instructions for Treatment How to access health informa tion online Indication:Fibromyalgia Start:03-Jun-2015 Instruction Type:Patient Education How to access health informa tion online - Detail Indication:Fibromyalgia Start:03-Jun-2015 Instruction Type:Patient Education Patient Instructions Indication:Fibromyalgia Start:03-Jun-2015 Instruction Type:Provider Instructions for Treatment Patient Instructions Indication:Upper respiratory disease Start:01-Dec-2014 Instruction Type:Provider Instructions for Treatment obesity counseling Indication:Coronary artery disease Start:08-Jul-2014 Instruction Type:Provider Instructions for Treatment obesity counseling Indication:Coronary artery disease Start:08-Jul-2014 Instruction Type:Provider Instructions for Treatment Patient Instructions Indication:Hypercholesterolemia Start:09-Dec-2013 Instruction Type:Provider Instructions for Treatment [facility] Work Phone: Instructions* Name Dates Details Patient Instructions Indication:GERD (gastroesophageal reflux disease) Start:22-Mar-2023 Instruction Type:Provider Instructions for Treatment How to Access Health Informa tion Online using Patient Portal and [employer]rd [employer] Apps Indication:GERD (gastroesophageal reflux disease) Start:22-Mar-2023 Instruction Type:Patient Education How to Access Health Informa tion Online using Patient Portal and [employer] Apps Indication:Nonsmoker Start:03-May-2022 Instruction Type:Patient Education Patient Instructions Indication:Nonsmoker Start:03-May-2022 Instruction Type:Provider Instructions for Treatment Patient Instructions Indication:Nonsmoker Start:31-Jan-2022 Instruction Type:Provider Instructions for Treatment How to Access Health Informa tion Online using Patient Portal and [employer]rd [employer] Apps Indication:Nonsmoker Start:31-Jan-2022 Instruction Type:Patient Education Patient Instructions Indication:BMI 30.0-30.9,adult Start:26-Oct-2021 Instruction Type:Provider Instructions for Treatment How to Access Health Informa tion Online using Patient Portal and 3rd [employer] Apps Indication:BMI 30.0-30.9,adult Start:26-Oct-2021 Instruction Type:Patient Education Patient Instructions Indication:BMI 30.0-30.9,adult Start:29-Aug-2021 Instruction Type:Provider Instructions for Treatment How to Access Health Informa tion Online using Patient Portal and [employer]rd [employer] Apps Indication:BMI 30.0-30.9,adult Start:29-Aug-2021 Instruction Type:Patient Education Patient Instructions Indication:Nonsmoker Start:04-May-2021 Instruction Type:Provider Instructions for Treatment How to Access Health Informa tion Online using Patient Portal and [employer] Apps Indication:Nonsmoker Start:04-May-2021 Instruction Type:Patient Education Patient Instructions Indication:Nonsmoker Start:14-Apr-2021 Instruction Type:Provider Instructions for Treatment How to Access Health Informa tion Online using Patient Portal and [employer]rd [employer] Apps Indication:Nonsmoker Start:14-Apr-2021 Instruction Type:Patient Education How to Access Health Informa tion Online using Patient Portal and [employer] Apps Indication:Nonsmoker Start:20-Oct-2020 Instruction Type:Patient Education Patient Instructions Indication:Nonsmoker Start:20-Oct-2020 Instruction Type:Provider Instructions for Treatment Patient Instructions Indication:BMI 30.0-30.9,adult Start:12-Oct-2020 Instruction Type:Provider Instructions for Treatment How to Access Health Informa tion Online using Patient Portal and [employer]rd [employer] Apps Indication:BMI 30.0-30.9,adult Start:12-Oct-2020 Instruction Type:Patient Education How to access health informa tion online Indication:Nonsmoker Start:06-Feb-2019 Instruction Type:Patient Education How to access health informa tion online - Detail Indication:Nonsmoker Start:06-Feb-2019 Instruction Type:Patient Education Patient Instructions Indication:Nonsmoker Start:06-Feb-2019 Instruction Type:Provider Instructions for Treatment How to access health informa tion online Indication:BMI 31.0-31.9,adult Start:19-Jan-2019 Instruction Type:Patient Education How to access health informa tion online - Detail Indication:BMI 31.0-31.9,adult Start:19-Jan-2019 Instruction Type:Patient Education Patient Instructions Indication:Tick bite, infected Start:19-Jan-2019 Instruction Type:Provider Instructions for Treatment How to access health informa tion online Indication:Nonsmoker Start:26-Nov-2018 Instruction Type:Patient Education How to access health informa tion online - Detail Indication:Nonsmoker Start:26-Nov-2018 Instruction Type:Patient Education Patient Instructions Indication:Nonsmoker Start:26-Nov-2018 Instruction Type:Provider Instructions for Treatment Patient Instructions Indication:Nonsmoker Start:26-Nov-2018 Instruction Type:Provider Instructions for Treatment How to access health informa tion online Indication:Nonsmoker Start:04-Nov-2018 Instruction Type:Patient Education How to access health informa tion online - Detail Indication:Nonsmoker Start:04-Nov-2018 Instruction Type:Patient Education Patient Instructions Indication:Nonsmoker Start:04-Nov-2018 Instruction Type:Provider Instructions for Treatment How to access health informa tion online Indication:Obesity (BMI 30.0-34.9) Start:09-Oct-2018 Instruction Type:Patient Education How to access health informa tion online Indication:Obesity (BMI 30.0-34.9) Start:09-Oct-2018 Instruction Type:Patient Education Patient Instructions Indication:Obesity (BMI 30.0-34.9) Start:09-Oct-2018 Instruction Type:Provider Instructions for Treatment How to access health informa tion online Indication:Nonsmoker Start:26-Aug-2017 Instruction Type:Patient Education How to access health informa tion online - Detail Indication:Nonsmoker Start:26-Aug-2017 Instruction Type:Patient Education Patient Instructions Indication:Nonsmoker Start:26-Aug-2017 Instruction Type:Provider Instructions for Treatment How to access health informa tion online Indication:Nonsmoker Start:06-Dec-2016 Instruction Type:Patient Education How to access health informa tion online - Detail Indication:Nonsmoker Start:06-Dec-2016 Instruction Type:Patient Education Patient Instructions Indication:Nonsmoker Start:06-Dec-2016 Instruction Type:Provider Instructions for Treatment Patient Instructions Indication:Encounter for Medicare annual wellness exam Start:10-Feb-2016 Instruction Type:Provider Instructions for Treatment How to access health informa tion online Indication:Fibromyalgia Start:03-Jun-2015 Instruction Type:Patient Education How to access health informa tion online - Detail Indication:Fibromyalgia Start:03-Jun-2015 Instruction Type:Patient Education Patient Instructions Indication:Fibromyalgia Start:03-Jun-2015 Instruction Type:Provider Instructions for Treatment Patient Instructions Indication:Upper respiratory disease Start:01-Dec-2014 Instruction Type:Provider Instructions for Treatment obesity counseling Indication:Coronary artery disease Start:08-Jul-2014 Instruction Type:Provider Instructions for Treatment obesity counseling Indication:Coronary artery disease Start:08-Jul-2014 Instruction Type:Provider Instructions for Treatment Patient Instructions Indication:Hypercholesterolemia Start:09-Dec-2013 Instruction Type:Provider Instructions for Treatment [facility] Work Phone: reason for referral (narrative)* Consultation (Routine) - Pending Review Specialty Diagnoses / Procedures Referred By Diomedes webber Referred To Contact Cardiology Diagnoses S/P CABG (coronary artery bypass graft) Procedures [place] [facility] [id number] MINUTES Phillip Jo APRN - CNP [address] [address] Referral ID Status Reason Start Date Expiration Date Visits Requested Visits Authorized [id number] Pending Review Specialty Services Required 01/02/2023 01/02/2024 1 1 Beth Felix for referral (narrative)No reason for referral information [facility] Work [facility]: Instructions Name Dates Details Obesity (BMI 30.0-34.9) : Hari w to access health information online Indication:Obesity (BMI 30.0-34.9) Obesity (BMI 30.0-34.9) : Pa elmernt Instructions Indication:Obesity (BMI 30.0-34.9) Nonsmoker : How to access he alth information online Indication:Nonsmoker Nonsmoker : How to access he alth information online - Detail Indication:Nonsmoker Nonsmoker : Patient Instruct ions Indication:Nonsmoker Encounter for Medicare annua l wellness exam : Patient Instructions Indication:Encounter for Medicare annual wellness exam Fibromyalgia : How to access health information online Indication:Fibromyalgia Fibromyalgia : How to access health information online - Detail Indication:Fibromyalgia Fibromyalgia : Patient Instr uctions Indication:Fibromyalgia Upper respiratory disease : Patient Instructions Indication:Upper respiratory disease Coronary artery disease : ob esity counseling Indication:Coronary artery disease Hypercholesterolemia : Patie nt Instructions Indication:Hypercholesterolemia Name Dates Details Nonsmoker : How to access he alth information online Indication:Nonsmoker Nonsmoker : How to access he alth information online - Detail Indication:Nonsmoker Nonsmoker : Patient Instruct ions Indication:Nonsmoker Obesity (BMI 30.0-34.9) : Ho w to access health information online Indication:Obesity (BMI 30.0-34.9) Obesity (BMI 30.0-34.9) : Dao vick Instructions Indication:Obesity (BMI 30.0-34.9) Encounter for Medicare annua l wellness exam : Patient Instructions Indication:Encounter for Medicare annual wellness exam Fibromyalgia : How to access health information online Indication:Fibromyalgia Fibromyalgia : How to access health information online - Detail Indication:Fibromyalgia Fibromyalgia : Patient Instr uctions Indication:Fibromyalgia Upper respiratory disease : Patient Instructions Indication:Upper respiratory disease Coronary artery disease : ob esity counseling Indication:Coronary artery disease Hypercholesterolemia : Patie nt Instructions Indication:Hypercholesterolemia Name Dates Details How to access health informa tion online Indication:Nonsmoker Start:26-Nov-2018 Instruction Type:Patient Education How to access health informa tion online - Detail Indication:Nonsmoker Start:26-Nov-2018 Instruction Type:Patient Education Patient Instructions Indication:Nonsmoker Start:26-Nov-2018 Instruction Type:Provider Instructions for Treatment How to access health informa tion online Indication:Nonsmoker Start:04-Nov-2018 Instruction Type:Patient Education How to access health informa tion online - Detail Indication:Nonsmoker Start:04-Nov-2018 Instruction Type:Patient Education Patient Instructions Indication:Nonsmoker Start:04-Nov-2018 Instruction Type:Provider Instructions for Treatment How to access health informa tion online Indication:Obesity (BMI 30.0-34.9) Start:09-Oct-2018 Instruction Type:Patient Education Patient Instructions Indication:Obesity (BMI 30.0-34.9) Start:09-Oct-2018 Instruction Type:Provider Instructions for Treatment How to access health informa tion online Indication:Nonsmoker Start:26-Aug-2017 Instruction Type:Patient Education How to access health informa tion online - Detail Indication:Nonsmoker Start:26-Aug-2017 Instruction Type:Patient Education Patient Instructions Indication:Nonsmoker Start:26-Aug-2017 Instruction Type:Provider Instructions for Treatment How to access health informa tion online Indication:Nonsmoker Start:06-Dec-2016 Instruction Type:Patient Education How to access health informa tion online - Detail Indication:Nonsmoker Start:06-Dec-2016 Instruction Type:Patient Education Patient Instructions Indication:Nonsmoker Start:06-Dec-2016 Instruction Type:Provider Instructions for Treatment Patient Instructions Indication:Encounter for Medicare annual wellness exam Start:10-Feb-2016 Instruction Type:Provider Instructions for Treatment How to access health informa tion online Indication:Fibromyalgia Start:03-Jun-2015 Instruction Type:Patient Education How to access health informa tion online - Detail Indication:Fibromyalgia Start:03-Jun-2015 Instruction Type:Patient Education Patient Instructions Indication:Fibromyalgia Start:03-Jun-2015 Instruction Type:Provider Instructions for Treatment Patient Instructions Indication:Upper respiratory disease Start:01-Dec-2014 Instruction Type:Provider Instructions for Treatment obesity counseling Indication:Coronary artery disease Start:08-Jul-2014 Instruction Type:Provider Instructions for Treatment Patient Instructions Indication:Hypercholesterolemia Start:09-Dec-2013 Instruction Type:Provider Instructions for Treatment Name Dates Details How to access health informa tion online Indication:Nonsmoker Start:26-Nov-2018 Instruction Type:Patient Education How to access health informa tion online - Detail Indication:Nonsmoker Start:26-Nov-2018 Instruction Type:Patient Education Patient Instructions Indication:Nonsmoker Start:26-Nov-2018 Instruction Type:Provider Instructions for Treatment How to access health informa tion online Indication:Nonsmoker Start:04-Nov-2018 Instruction Type:Patient Education How to access health informa tion online - Detail Indication:Nonsmoker Start:04-Nov-2018 Instruction Type:Patient Education Patient Instructions Indication:Nonsmoker Start:04-Nov-2018 Instruction Type:Provider Instructions for Treatment How to access health informa tion online Indication:Obesity (BMI 30.0-34.9) Start:09-Oct-2018 Instruction Type:Patient Education Patient Instructions Indication:Obesity (BMI 30.0-34.9) Start:09-Oct-2018 Instruction Type:Provider Instructions for Treatment How to access health informa tion online Indication:Nonsmoker Start:26-Aug-2017 Instruction Type:Patient Education How to access health informa tion online - Detail Indication:Nonsmoker Start:26-Aug-2017 Instruction Type:Patient Education Patient Instructions Indication:Nonsmoker Start:26-Aug-2017 Instruction Type:Provider Instructions for Treatment How to access health informa tion online Indication:Nonsmoker Start:06-Dec-2016 Instruction Type:Patient Education How to access health informa tion online - Detail Indication:Nonsmoker Start:06-Dec-2016 Instruction Type:Patient Education Patient Instructions Indication:Nonsmoker Start:06-Dec-2016 Instruction Type:Provider Instructions for Treatment Patient Instructions Indication:Encounter for Medicare annual wellness exam Start:10-Feb-2016 Instruction Type:Provider Instructions for Treatment How to access health informa tion online Indication:Fibromyalgia Start:03-Jun-2015 Instruction Type:Patient Education How to access health informa tion online - Detail Indication:Fibromyalgia Start:03-Jun-2015 Instruction Type:Patient Education Patient Instructions Indication:Fibromyalgia Start:03-Jun-2015 Instruction Type:Provider Instructions for Treatment Patient Instructions Indication:Upper respiratory disease Start:01-Dec-2014 Instruction Type:Provider Instructions for Treatment obesity counseling Indication:Coronary artery disease Start:08-Jul-2014 Instruction Type:Provider Instructions for Treatment Patient Instructions Indication:Hypercholesterolemia Start:09-Dec-2013 Instruction Type:Provider Instructions for Treatment Name Dates Details How to access health informa tion online Indication:Nonsmoker Start:26-Nov-2018 Instruction Type:Patient Education How to access health informa tion online - Detail Indication:Nonsmoker Start:26-Nov-2018 Instruction Type:Patient Education Patient Instructions Indication:Nonsmoker Start:26-Nov-2018 Instruction Type:Provider Instructions for Treatment How to access health informa tion online Indication:Nonsmoker Start:04-Nov-2018 Instruction Type:Patient Education How to access health informa tion online - Detail Indication:Nonsmoker Start:04-Nov-2018 Instruction Type:Patient Education Patient Instructions Indication:Nonsmoker Start:04-Nov-2018 Instruction Type:Provider Instructions for Treatment How to access health informa tion online Indication:Obesity (BMI 30.0-34.9) Start:09-Oct-2018 Instruction Type:Patient Education Patient Instructions Indication:Obesity (BMI 30.0-34.9) Start:09-Oct-2018 Instruction Type:Provider Instructions for Treatment How to access health informa tion online Indication:Nonsmoker Start:26-Aug-2017 Instruction Type:Patient Education How to access health informa tion online - Detail Indication:Nonsmoker Start:26-Aug-2017 Instruction Type:Patient Education Patient Instructions Indication:Nonsmoker Start:26-Aug-2017 Instruction Type:Provider Instructions for Treatment How to access health informa tion online Indication:Nonsmoker Start:06-Dec-2016 Instruction Type:Patient Education How to access health informa tion online - Detail Indication:Nonsmoker Start:06-Dec-2016 Instruction Type:Patient Education Patient Instructions Indication:Nonsmoker Start:06-Dec-2016 Instruction Type:Provider Instructions for Treatment Patient Instructions Indication:Encounter for Medicare annual wellness exam Start:10-Feb-2016 Instruction Type:Provider Instructions for Treatment How to access health informa tion online Indication:Fibromyalgia Start:03-Jun-2015 Instruction Type:Patient Education How to access health informa tion online - Detail Indication:Fibromyalgia Start:03-Jun-2015 Instruction Type:Patient Education Patient Instructions Indication:Fibromyalgia Start:03-Jun-2015 Instruction Type:Provider Instructions for Treatment Patient Instructions Indication:Upper respiratory disease Start:01-Dec-2014 Instruction Type:Provider Instructions for Treatment obesity counseling Indication:Coronary artery disease Start:08-Jul-2014 Instruction Type:Provider Instructions for Treatment Patient Instructions Indication:Hypercholesterolemia Start:09-Dec-2013 Instruction Type:Provider Instructions for Treatment Name Dates Details How to access health informa tion online Indication:BMI 31.0-31.9,adult Start:19-Jan-2019 Instruction Type:Patient Education How to access health informa tion online - Detail Indication:BMI 31.0-31.9,adult Start:19-Jan-2019 Instruction Type:Patient Education Patient Instructions Indication:Tick bite, infected Start:19-Jan-2019 Instruction Type:Provider Instructions for Treatment How to access health informa tion online Indication:Nonsmoker Start:26-Nov-2018 Instruction Type:Patient Education How to access health informa tion online - Detail Indication:Nonsmoker Start:26-Nov-2018 Instruction Type:Patient Education Patient Instructions Indication:Nonsmoker Start:26-Nov-2018 Instruction Type:Provider Instructions for Treatment How to access health informa tion online Indication:Nonsmoker Start:04-Nov-2018 Instruction Type:Patient Education How to access health informa tion online - Detail Indication:Nonsmoker Start:04-Nov-2018 Instruction Type:Patient Education Patient Instructions Indication:Nonsmoker Start:04-Nov-2018 Instruction Type:Provider Instructions for Treatment How to access health informa tion online Indication:Obesity (BMI 30.0-34.9) Start:09-Oct-2018 Instruction Type:Patient Education Patient Instructions Indication:Obesity (BMI 30.0-34.9) Start:09-Oct-2018 Instruction Type:Provider Instructions for Treatment How to access health informa tion online Indication:Nonsmoker Start:26-Aug-2017 Instruction Type:Patient Education How to access health informa tion online - Detail Indication:Nonsmoker Start:26-Aug-2017 Instruction Type:Patient Education Patient Instructions Indication:Nonsmoker Start:26-Aug-2017 Instruction Type:Provider Instructions for Treatment How to access health informa tion online Indication:Nonsmoker Start:06-Dec-2016 Instruction Type:Patient Education How to access health informa tion online - Detail Indication:Nonsmoker Start:06-Dec-2016 Instruction Type:Patient Education Patient Instructions Indication:Nonsmoker Start:06-Dec-2016 Instruction Type:Provider Instructions for Treatment Patient Instructions Indication:Encounter for Medicare annual wellness exam Start:10-Feb-2016 Instruction Type:Provider Instructions for Treatment How to access health informa tion online Indication:Fibromyalgia Start:03-Jun-2015 Instruction Type:Patient Education How to access health informa tion online - Detail Indication:Fibromyalgia Start:03-Jun-2015 Instruction Type:Patient Education Patient Instructions Indication:Fibromyalgia Start:03-Jun-2015 Instruction Type:Provider Instructions for Treatment Patient Instructions Indication:Upper respiratory disease Start:01-Dec-2014 Instruction Type:Provider Instructions for Treatment obesity counseling Indication:Coronary artery disease Start:08-Jul-2014 Instruction Type:Provider Instructions for Treatment Patient Instructions Indication:Hypercholesterolemia Start:09-Dec-2013 Instruction Type:Provider Instructions for Treatment Name Dates Details How to access health informa tion online Indication:Nonsmoker Start:06-Feb-2019 Instruction Type:Patient Education How to access health informa tion online - Detail Indication:Nonsmoker Start:06-Feb-2019 Instruction Type:Patient Education Patient Instructions Indication:Nonsmoker Start:06-Feb-2019 Instruction Type:Provider Instructions for Treatment How to access health informa tion online Indication:BMI 31.0-31.9,adult Start:19-Jan-2019 Instruction Type:Patient Education How to access health informa tion online - Detail Indication:BMI 31.0-31.9,adult Start:19-Jan-2019 Instruction Type:Patient Education Patient Instructions Indication:Tick bite, infected Start:19-Jan-2019 Instruction Type:Provider Instructions for Treatment How to access health informa tion online Indication:Nonsmoker Start:26-Nov-2018 Instruction Type:Patient Education How to access health informa tion online - Detail Indication:Nonsmoker Start:26-Nov-2018 Instruction Type:Patient Education Patient Instructions Indication:Nonsmoker Start:26-Nov-2018 Instruction Type:Provider Instructions for Treatment How to access health informa tion online Indication:Nonsmoker Start:04-Nov-2018 Instruction Type:Patient Education How to access health informa tion online - Detail Indication:Nonsmoker Start:04-Nov-2018 Instruction Type:Patient Education Patient Instructions Indication:Nonsmoker Start:04-Nov-2018 Instruction Type:Provider Instructions for Treatment How to access health informa tion online Indication:Obesity (BMI 30.0-34.9) Start:09-Oct-2018 Instruction Type:Patient Education Patient Instructions Indication:Obesity (BMI 30.0-34.9) Start:09-Oct-2018 Instruction Type:Provider Instructions for Treatment How to access health informa tion online Indication:Nonsmoker Start:26-Aug-2017 Instruction Type:Patient Education How to access health informa tion online - Detail Indication:Nonsmoker Start:26-Aug-2017 Instruction Type:Patient Education Patient Instructions Indication:Nonsmoker Start:26-Aug-2017 Instruction Type:Provider Instructions for Treatment How to access health informa tion online Indication:Nonsmoker Start:06-Dec-2016 Instruction Type:Patient Education How to access health informa tion online - Detail Indication:Nonsmoker Start:06-Dec-2016 Instruction Type:Patient Education Patient Instructions Indication:Nonsmoker Start:06-Dec-2016 Instruction Type:Provider Instructions for Treatment Patient Instructions Indication:Encounter for Medicare annual wellness exam Start:10-Feb-2016 Instruction Type:Provider Instructions for Treatment How to access health informa tion online Indication:Fibromyalgia Start:03-Jun-2015 Instruction Type:Patient Education How to access health informa tion online - Detail Indication:Fibromyalgia Start:03-Jun-2015 Instruction Type:Patient Education Patient Instructions Indication:Fibromyalgia Start:03-Jun-2015 Instruction Type:Provider Instructions for Treatment Patient Instructions Indication:Upper respiratory disease Start:01-Dec-2014 Instruction Type:Provider Instructions for Treatment obesity counseling Indication:Coronary artery disease Start:08-Jul-2014 Instruction Type:Provider Instructions for Treatment Patient Instructions Indication:Hypercholesterolemia Start:09-Dec-2013 Instruction Type:Provider Instructions for Treatment Name Dates Details How to access health informa tion online Indication:Nonsmoker Start:06-Feb-2019 Instruction Type:Patient Education How to access health informa tion online - Detail Indication:Nonsmoker Start:06-Feb-2019 Instruction Type:Patient Education Patient Instructions Indication:Nonsmoker Start:06-Feb-2019 Instruction Type:Provider Instructions for Treatment How to access health informa tion online Indication:BMI 31.0-31.9,adult Start:19-Jan-2019 Instruction Type:Patient Education How to access health informa tion online - Detail Indication:BMI 31.0-31.9,adult Start:19-Jan-2019 Instruction Type:Patient Education Patient Instructions Indication:Tick bite, infected Start:19-Jan-2019 Instruction Type:Provider Instructions for Treatment How to access health informa tion online Indication:Nonsmoker Start:26-Nov-2018 Instruction Type:Patient Education How to access health informa tion online - Detail Indication:Nonsmoker Start:26-Nov-2018 Instruction Type:Patient Education Patient Instructions Indication:Nonsmoker Start:26-Nov-2018 Instruction Type:Provider Instructions for Treatment How to access health informa tion online Indication:Nonsmoker Start:04-Nov-2018 Instruction Type:Patient Education How to access health informa tion online - Detail Indication:Nonsmoker Start:04-Nov-2018 Instruction Type:Patient Education Patient Instructions Indication:Nonsmoker Start:04-Nov-2018 Instruction Type:Provider Instructions for Treatment How to access health informa tion online Indication:Obesity (BMI 30.0-34.9) Start:09-Oct-2018 Instruction Type:Patient Education Patient Instructions Indication:Obesity (BMI 30.0-34.9) Start:09-Oct-2018 Instruction Type:Provider Instructions for Treatment How to access health informa tion online Indication:Nonsmoker Start:26-Aug-2017 Instruction Type:Patient Education How to access health informa tion online - Detail Indication:Nonsmoker Start:26-Aug-2017 Instruction Type:Patient Education Patient Instructions Indication:Nonsmoker Start:26-Aug-2017 Instruction Type:Provider Instructions for Treatment How to access health informa tion online Indication:Nonsmoker Start:06-Dec-2016 Instruction Type:Patient Education How to access health informa tion online - Detail Indication:Nonsmoker Start:06-Dec-2016 Instruction Type:Patient Education Patient Instructions Indication:Nonsmoker Start:06-Dec-2016 Instruction Type:Provider Instructions for Treatment Patient Instructions Indication:Encounter for Medicare annual wellness exam Start:10-Feb-2016 Instruction Type:Provider Instructions for Treatment How to access health informa tion online Indication:Fibromyalgia Start:03-Jun-2015 Instruction Type:Patient Education How to access health informa tion online - Detail Indication:Fibromyalgia Start:03-Jun-2015 Instruction Type:Patient Education Patient Instructions Indication:Fibromyalgia Start:03-Jun-2015 Instruction Type:Provider Instructions for Treatment Patient Instructions Indication:Upper respiratory disease Start:01-Dec-2014 Instruction Type:Provider Instructions for Treatment obesity counseling Indication:Coronary artery disease Start:08-Jul-2014 Instruction Type:Provider Instructions for Treatment Patient Instructions Indication:Hypercholesterolemia Start:09-Dec-2013 Instruction Type:Provider Instructions for Treatment Name Dates Details How to access health informa tion online Indication:Nonsmoker Start:06-Feb-2019 Instruction Type:Patient Education How to access health informa tion online - Detail Indication:Nonsmoker Start:06-Feb-2019 Instruction Type:Patient Education Patient Instructions Indication:Nonsmoker Start:06-Feb-2019 Instruction Type:Provider Instructions for Treatment How to access health informa tion online Indication:BMI 31.0-31.9,adult Start:19-Jan-2019 Instruction Type:Patient Education How to access health informa tion online - Detail Indication:BMI 31.0-31.9,adult Start:19-Jan-2019 Instruction Type:Patient Education Patient Instructions Indication:Tick bite, infected Start:19-Jan-2019 Instruction Type:Provider Instructions for Treatment How to access health informa tion online Indication:Nonsmoker Start:26-Nov-2018 Instruction Type:Patient Education How to access health informa tion online - Detail Indication:Nonsmoker Start:26-Nov-2018 Instruction Type:Patient Education Patient Instructions Indication:Nonsmoker Start:26-Nov-2018 Instruction Type:Provider Instructions for Treatment How to access health informa tion online Indication:Nonsmoker Start:04-Nov-2018 Instruction Type:Patient Education How to access health informa tion online - Detail Indication:Nonsmoker Start:04-Nov-2018 Instruction Type:Patient Education Patient Instructions Indication:Nonsmoker Start:04-Nov-2018 Instruction Type:Provider Instructions for Treatment How to access health informa tion online Indication:Obesity (BMI 30.0-34.9) Start:09-Oct-2018 Instruction Type:Patient Education Patient Instructions Indication:Obesity (BMI 30.0-34.9) Start:09-Oct-2018 Instruction Type:Provider Instructions for Treatment How to access health informa tion online Indication:Nonsmoker Start:26-Aug-2017 Instruction Type:Patient Education How to access health informa tion online - Detail Indication:Nonsmoker Start:26-Aug-2017 Instruction Type:Patient Education Patient Instructions Indication:Nonsmoker Start:26-Aug-2017 Instruction Type:Provider Instructions for Treatment How to access health informa tion online Indication:Nonsmoker Start:06-Dec-2016 Instruction Type:Patient Education How to access health informa tion online - Detail Indication:Nonsmoker Start:06-Dec-2016 Instruction Type:Patient Education Patient Instructions Indication:Nonsmoker Start:06-Dec-2016 Instruction Type:Provider Instructions for Treatment Patient Instructions Indication:Encounter for Medicare annual wellness exam Start:10-Feb-2016 Instruction Type:Provider Instructions for Treatment How to access health informa tion online Indication:Fibromyalgia Start:03-Jun-2015 Instruction Type:Patient Education How to access health informa tion online - Detail Indication:Fibromyalgia Start:03-Jun-2015 Instruction Type:Patient Education Patient Instructions Indication:Fibromyalgia Start:03-Jun-2015 Instruction Type:Provider Instructions for Treatment Patient Instructions Indication:Upper respiratory disease Start:01-Dec-2014 Instruction Type:Provider Instructions for Treatment obesity counseling Indication:Coronary artery disease Start:08-Jul-2014 Instruction Type:Provider Instructions for Treatment Patient Instructions Indication:Hypercholesterolemia Start:09-Dec-2013 Instruction Type:Provider Instructions for Treatment Name Dates Details How to access health informa tion online Indication:Nonsmoker Start:06-Feb-2019 Instruction Type:Patient Education How to access health informa tion online - Detail Indication:Nonsmoker Start:06-Feb-2019 Instruction Type:Patient Education Patient Instructions Indication:Nonsmoker Start:06-Feb-2019 Instruction Type:Provider Instructions for Treatment How to access health informa tion online Indication:BMI 31.0-31.9,adult Start:19-Jan-2019 Instruction Type:Patient Education How to access health informa tion online - Detail Indication:BMI 31.0-31.9,adult Start:19-Jan-2019 Instruction Type:Patient Education Patient Instructions Indication:Tick bite, infected Start:19-Jan-2019 Instruction Type:Provider Instructions for Treatment How to access health informa tion online Indication:Nonsmoker Start:26-Nov-2018 Instruction Type:Patient Education How to access health informa tion online - Detail Indication:Nonsmoker Start:26-Nov-2018 Instruction Type:Patient Education Patient Instructions Indication:Nonsmoker Start:26-Nov-2018 Instruction Type:Provider Instructions for Treatment How to access health informa tion online Indication:Nonsmoker Start:04-Nov-2018 Instruction Type:Patient Education How to access health informa tion online - Detail Indication:Nonsmoker Start:04-Nov-2018 Instruction Type:Patient Education Patient Instructions Indication:Nonsmoker Start:04-Nov-2018 Instruction Type:Provider Instructions for Treatment How to access health informa tion online Indication:Obesity (BMI 30.0-34.9) Start:09-Oct-2018 Instruction Type:Patient Education Patient Instructions Indication:Obesity (BMI 30.0-34.9) Start:09-Oct-2018 Instruction Type:Provider Instructions for Treatment How to access health informa tion online Indication:Nonsmoker Start:26-Aug-2017 Instruction Type:Patient Education How to access health informa tion online - Detail Indication:Nonsmoker Start:26-Aug-2017 Instruction Type:Patient Education Patient Instructions Indication:Nonsmoker Start:26-Aug-2017 Instruction Type:Provider Instructions for Treatment How to access health informa tion online Indication:Nonsmoker Start:06-Dec-2016 Instruction Type:Patient Education How to access health informa tion online - Detail Indication:Nonsmoker Start:06-Dec-2016 Instruction Type:Patient Education Patient Instructions Indication:Nonsmoker Start:06-Dec-2016 Instruction Type:Provider Instructions for Treatment Patient Instructions Indication:Encounter for Medicare annual wellness exam Start:10-Feb-2016 Instruction Type:Provider Instructions for Treatment How to access health informa tion online Indication:Fibromyalgia Start:03-Jun-2015 Instruction Type:Patient Education How to access health informa tion online - Detail Indication:Fibromyalgia Start:03-Jun-2015 Instruction Type:Patient Education Patient Instructions Indication:Fibromyalgia Start:03-Jun-2015 Instruction Type:Provider Instructions for Treatment Patient Instructions Indication:Upper respiratory disease Start:01-Dec-2014 Instruction Type:Provider Instructions for Treatment obesity counseling Indication:Coronary artery disease Start:08-Jul-2014 Instruction Type:Provider Instructions for Treatment Patient Instructions Indication:Hypercholesterolemia Start:09-Dec-2013 Instruction Type:Provider Instructions for Treatment Name Dates Details Obesity (BMI 30.0-34.9) : Hari w to access health information online Indication:Obesity (BMI 30.0-34.9) Obesity (BMI 30.0-34.9) : Dao paynent Instructions Indication:Obesity (BMI 30.0-34.9) Nonsmoker : How to access he alth information online Indication:Nonsmoker Nonsmoker : How to access he alth information online - Detail Indication:Nonsmoker Nonsmoker : Patient Instruct ions Indication:Nonsmoker Encounter for Medicare annua l wellness exam : Patient Instructions Indication:Encounter for Medicare annual wellness exam Fibromyalgia : How to access health information online Indication:Fibromyalgia Fibromyalgia : How to access health information online - Detail Indication:Fibromyalgia Fibromyalgia : Patient Instr uctions Indication:Fibromyalgia Upper respiratory disease : Patient Instructions Indication:Upper respiratory disease Coronary artery disease : ob esity counseling Indication:Coronary artery disease Hypercholesterolemia : Patie nt Instructions Indication:Hypercholesterolemia Name Dates Details How to Access Health Informa tion Online using Patient Portal and [employer] Apps Indication:Nonsmoker Start:20-Oct-2020 Instruction Type:Patient Education Patient Instructions Indication:Nonsmoker Start:20-Oct-2020 Instruction Type:Provider Instructions for Treatment Patient Instructions Indication:BMI 30.0-30.9,adult Start:12-Oct-2020 Instruction Type:Provider Instructions for Treatment How to Access Health Informa tion Online using Patient Portal and [employer] Apps Indication:BMI 30.0-30.9,adult Start:12-Oct-2020 Instruction Type:Patient Education How to access health informa tion online Indication:Nonsmoker Start:06-Feb-2019 Instruction Type:Patient Education How to access health informa tion online - Detail Indication:Nonsmoker Start:06-Feb-2019 Instruction Type:Patient Education Patient Instructions Indication:Nonsmoker Start:06-Feb-2019 Instruction Type:Provider Instructions for Treatment How to access health informa tion online Indication:BMI 31.0-31.9,adult Start:19-Jan-2019 Instruction Type:Patient Education How to access health informa tion online - Detail Indication:BMI 31.0-31.9,adult Start:19-Jan-2019 Instruction Type:Patient Education Patient Instructions Indication:Tick bite, infected Start:19-Jan-2019 Instruction Type:Provider Instructions for Treatment How to access health informa tion online Indication:Nonsmoker Start:26-Nov-2018 Instruction Type:Patient Education How to access health informa tion online - Detail Indication:Nonsmoker Start:26-Nov-2018 Instruction Type:Patient Education Patient Instructions Indication:Nonsmoker Start:26-Nov-2018 Instruction Type:Provider Instructions for Treatment How to access health informa tion online Indication:Nonsmoker Start:04-Nov-2018 Instruction Type:Patient Education How to access health informa tion online - Detail Indication:Nonsmoker Start:04-Nov-2018 Instruction Type:Patient Education Patient Instructions Indication:Nonsmoker Start:04-Nov-2018 Instruction Type:Provider Instructions for Treatment How to access health informa tion online Indication:Obesity (BMI 30.0-34.9) Start:09-Oct-2018 Instruction Type:Patient Education Patient Instructions Indication:Obesity (BMI 30.0-34.9) Start:09-Oct-2018 Instruction Type:Provider Instructions for Treatment How to access health informa tion online Indication:Nonsmoker Start:26-Aug-2017 Instruction Type:Patient Education How to access health informa tion online - Detail Indication:Nonsmoker Start:26-Aug-2017 Instruction Type:Patient Education Patient Instructions Indication:Nonsmoker Start:26-Aug-2017 Instruction Type:Provider Instructions for Treatment How to access health informa tion online Indication:Nonsmoker Start:06-Dec-2016 Instruction Type:Patient Education How to access health informa tion online - Detail Indication:Nonsmoker Start:06-Dec-2016 Instruction Type:Patient Education Patient Instructions Indication:Nonsmoker Start:06-Dec-2016 Instruction Type:Provider Instructions for Treatment Patient Instructions Indication:Encounter for Medicare annual wellness exam Start:10-Feb-2016 Instruction Type:Provider Instructions for Treatment How to access health informa tion online Indication:Fibromyalgia Start:03-Jun-2015 Instruction Type:Patient Education How to access health informa tion online - Detail Indication:Fibromyalgia Start:03-Jun-2015 Instruction Type:Patient Education Patient Instructions Indication:Fibromyalgia Start:03-Jun-2015 Instruction Type:Provider Instructions for Treatment Patient Instructions Indication:Upper respiratory disease Start:01-Dec-2014 Instruction Type:Provider Instructions for Treatment obesity counseling Indication:Coronary artery disease Start:08-Jul-2014 Instruction Type:Provider Instructions for Treatment Patient Instructions Indication:Hypercholesterolemia Start:09-Dec-2013 Instruction Type:Provider Instructions for Treatment Summary Purpose Family History No Family History Records Found Relationship Condition Age at Onset Recorded Date/T meggan mother Cardiac disease Unknown Relationship Condition Age at Onset Recorded Date/T meggan mother Cardiac disease Unknown father Cardiac disease Unknown Coronary artery disease Unknown Chronic obstructive pulmonary disease Unk nown Advance Directives No Advanced Directives Records Found Advance Directive Response Recorded Date/ Time Living Will Yes April 28, 9 11:32am Power of Scheduling Clerk Yes April 28 019 11:32am Advance Directive Response Recorded Date/ Time Living Will No January 29, 2022 8 :27am Power of Scheduling Clerk No January 29, 2022 8:27am Advance Directive Response Recorded Date/ Time Living Will No January 29, 2022 7 :27am Power of Scheduling Clerk No January 29, 2022 7:27am Latest Code Status on File Code Status Date Activated Date Inactivated Comments Full Code 12/18/2022 1:40 PM 12/25/2022 4:20 PM Latest Code Status on File Code Status Date Activated Date Inactivated Comments Full Code 12/18/2022 1:40 PM 12/25/2022 4:20 PM Advance Directive Response Recorded Date/ Time Name of Medical Power of Scheduling Clerk December 17, 2022 3:10am Advance Directives on File Yes January 21, 2023 2:59pm Living Will Yes January 21, 2023 2:59pm Power of Scheduling Clerk Yes January 21 2:59pm Advance Directive Response Recorded Date/ Time Living Will Yes January 21, 2023 1:59pm Power of Scheduling Clerk Yes January 21 1:59pm Advance Directive Response Recorded Date/ Time Name of Medical Power of Scheduling Clerk Ruth Guevara December 03, 2023 2:08pm Living Will Yes December 03, 2023 2: 08pm Power of Scheduling Clerk Yes December 03, 2023 2:08pm Advance Directive Response Recorded Date/ Time Name of Medical Power of Scheduling Clerk Ruth Guevara December 03, 2023 8:44pm Living Will Yes December 03, 2023 8: 44pm Power of Scheduling Clerk Yes December 03, 2023 8:44pm Advance Directive Response Recorded Date/ Time Living Will Yes December 03, 2023 8: 44pm Power of Scheduling Clerk Yes December 03, 2023 8:44pm Chief Complaint and Reason for Visit Chief Complaint COVID TEST COVID TEST COVID POS ARTHRITIS/PAIN- COPY PCP Reason for Visit Encounter for screen ing for COVID-19 COVID-19 Chief Complaint ARTHRITIS/PAIN- COPY PCP cp Chief Complaint ARTHRITIS/PAIN- COPY PCP cp THYROID NODULE Chief Complaint cp THYROID NODULE 1 Y FU Reason for Visit History of coronary artery stent placement Hyperlipidemia Chief Complaint COVID TEST/SYMPTOMAT IC Reason for Visit Acute upper respirat ory infection Contact with or suspected exposure to other viral communicable disease Chief Complaint CHEST PAIN CHEST PAIN CHEST PAIN CHEST PAIN S/P SUMMA CABGx4 (SCANNED) S/P CABG Reason for Visit Abnormal stress test Coronary artery disease Elevated blood pressure reading Hyperlipidemia Chest pain Hyperlipidemia Postoperative atrial fibrillation S/P CABG x 4 Chief Complaint CHEST PAIN CHEST PAIN CHEST PAIN CHEST PAIN S/P SUMMA CABGx4 (SCANNED) S/P CABG S/P CABG Reason for Visit Abnormal stress test Coronary artery disease Elevated blood pressure reading Hyperlipidemia Chest pain Hyperlipidemia Postoperative atrial fibrillation S/P CABG x 4 Chief Complaint R41.3 Other amnesia CAROTID OCCLUSION BILAT Chief Complaint R41.3 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 Reason for Visit Acute cervical myofa scial strain Closed head injury Fall Inability to ambulate due to multiple joints Chief Complaint R41.3 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 DEBILITY DUE TO MECHANICAL FALL DEBILITY DUE TO MECHANICAL FALL DEBILITY DUE TO MECHANICAL FALL DEBILITY DUE TO MECHANICAL FALL Reason for Visit Acute cervical myofa scial strain Closed head injury Fall Inability to ambulate due to multiple joints Chief Complaint Admit Date SINUS COMPLAINT/ST/COUGH July 20, 2024 3:17pm 3 M FU August 25, 2024 9 :08am INT LABS August 25, 2024 9 :41am CONCERN FOR PNEUMONIA September 25 11:47am cough September 25, 2024 12:43pm Reason for Visit Admit Date Essential hypertension August 25 9:08am Hyperlipidemia August 25, 2024 9 :08am Postoperative atrial fibrillation Januar y 2024 9:08am S/P CABG x 4 August 25, 2024 9 :08am Acute upper respiratory infection Februa 2024 11:47am Chief Complaint Admit Date CONCERN FOR PNEUMONIA September 25 11:47am cough September 25, 2024 12:43pm TICK BITE/CONCERN FOR INFECTION December 8:51am Reason for Visit Admit Date Acute upper respiratory infection Februa 2024 11:47am Erythema migrans (Lyme disease) December 8:51am Chief Complaint Admit Date CONCERN FOR PNEUMONIA September 25 11:47am cough September 25, 2024 12:43pm TICK BITE/CONCERN FOR INFECTION December 8:51am 4 M FU January 20, 2025 9:13 am Reason for Visit Admit Date Acute upper respiratory infection Februa 2024 11:47am Erythema migrans (Lyme disease) December 8:51am Essential hypertension January 20, 2025 9 :13am Fatigue January 20, 2025 9:13 am Hyperlipidemia January 20, 2025 9:13 am Postoperative atrial fibrillation December 282024 9:13am S/P CABG x 4 January 20, 2025 9:13 am Additional Source Comments (unrecognized sect ion and content) No Status Records FoundNo Status Records FoundNo Status Records Found INFORMATION SOURCE (unrecogn ized section and content) DATE CREATED AUTHOR 11/05/2018 [facility] DATE CREATED AUTHOR AUTHOR'S ORGANIZ ATION 12/23/2022 [facility] DATE CREATED AUTHOR AUTHOR'S ORGANIZ ATION 02/08/2025 [facility] Goals (unrecognized section and content) Goals may be documented in a n alternate sectionGoals may be documented in an alternate sectionGoals may be documented in an alternate sectionGoals may be documented in an alternate sectionGoals may be documented in an alternate sectionGoals may be documented in an alternate sectionGoals may be documented in an alternate sectionGoals may be documented in an alternate sectionGoals may be documented in an alternate sectionGoals may be documented in an alternate sectionGoals may be documented in an alternate sectionGoals may be documented in an alternate section Care Teams (unrecognized sec tion and content) Team Status: Active Member Role Status Dates Dr. Jazlyn Zayas , DO Family Provider Active Dr. Jazlyn Zayas , DO Primary Care Provider Active Team Status: Inactive Member Role Status Dates Dr. Jazlyn Zayas , DO Primary Care Provider, Referr ing Provider Active [place], [place] Attending Provider Active Team Status: Inactive Member Role Status Dates Dr. Jazlyn Zayas DO Primary Care Pr ovider, Attending Provider, Referring Provider Active Team Status: Inactive Member Role Status Dates Dr. Jazlyn Zayas DO Primary Care Provider Active Dr. Lynda Gimenez MD Attending Provider, Referri ng Provider Active Team Status: Inactive Member Role Status Dates Dr. Jazlyn Zayas DO Primary Care Provider Active Dr. Rosalba Lester MD Attending Provider, Referring Provider Active [employer] Relationship Specialty Start Date End Date Jazlyn Zayas DO [address] [place] [address] PCP - General Internal Medicine 12/18/22 [employer] Relationship Specialty Start Date End Date Jazlyn Zayas DO [address] [place] [address] PCP - General Internal Medicine 12/18/22 [employer] Relationship Specialty Start Date End Date Jazlyn Zayas DO [id number] [address] [place] [address] PCP - General Internal Medicine 12/18/22 Wood Flour Miller Relationship Specialty Start Date End Date Jazlyn Zayas DO [address] [place] [address] PCP - General Internal Medicine 12/18/22 Wood Flour Miller Relationship Specialty Start Date End Date Jazlyn Zayas DO [address] [place] [address] PCP - General Internal Medicine 12/18/22 Team Status: Active Member Role Status Dates Dr. Jazlyn Zayas DO Primary Care Provider Active Dr. Osvaldo Bolaños MD Emergency Provider Active Dr. Sarah Hsu MD Admit Provider, Other Provider Active Dr. Coleman Khan DO Other Provider Active Dr. Ronnie Khan MD Attending Provider Active Team Status: Active Member Role Status Dates Dr. Jazlyn Zayas DO Primary Care Provider Active Dr. Osvaldo Bolaños MD Emergency Provider Active Dr. Sarah Hsu MD Admit Provider, Other Provider Active Dr. Coleman Khan , DO Other Provider Active Dr. Ronnie Khan MD Attending Provider, Other Provide r Active Team Status: Active Member Role Status Dates Dr. Jazlyn Zayas DO Primary Care Provider Active Dr. Osvaldo Bolaños MD Emergency Provider Active Dr. Sarah Hsu MD Admit Provider, Other Provider Active Dr. Coleman Khan , DO Attending Provider, Other Pro vider Active Dr. Ronnie Khan MD Other Provider Active Team Status: Active Member Role Status Dates Dr. Jazlyn Zayas DO Primary Care Provider Active Dr. Ronnie Khan MD Attending Provider Active Team Status: Inactive Member Role Status Dates Dr. Jazlyn Zayas DO Primary Care Provider, Referr ing Provider Active Liliana Henry PA, PA Attending Provider Active Team Status: Inactive Member Role Status Dates Dr. Jazlyn Zayas DO Primary Care Provider Active Dr. Osvaldo Bolaños MD Emergency Provider Active Dr. Sarah Hsu MD Admit Provider, Other Provider Active Dr. Coleman Khan , Attending Provider Active Dr. Ronnie Khan MD Other Provider Active Team Status: Inactive Member Role Status Dates Dr. Jazlyn Zayas DO Primary Care Provider Active Dr. Ronnie Khan MD Attending Provider, Referring Pro vider Active Wood Flour Miller Relationship Specialty Start Date End Date Jazlyn Zayas DO [address] [facility] [address] [place] [id number] PCP - General Internal Medicine 12/18/22 Team Status: Inactive Member Role Status Dates Dr. Jazlyn Zayas DO Primary Care Provider Active Dr. Ronnie Khan MD Attending Provider Active Team Status: Active Member Role Status Dates Dr. Jazlyn Zayas DO Primary Care Provider Active Dr. Anand Lundberg MD Attending Provider Active Team Status: Active Member Role Status Dates Dr. Jazlyn Zayas DO Primary Care Provider, Referr ing Provider Active Dr. Anand Lundberg MD Attending Provider Active Team Status: Active Member Role Status Dates Dr. Jazlyn Zayas , DO Primary Care Provider Active Dr. Humza Don , DO Emergency Provider Active Dr. Linda Leal MD Admit Provider, Attending Provider, Other Provider Active Team Status: Active Member Role Status Dates Dr. Jazlyn Zayas , DO Primary Care Provider Active Dr. Humza Don , DO Emergency Provider Active Dr. Linda Leal MD Admit Provider, Attending Prov ider Active Team Status: Active Member Role Status Dates Dr. Jazlyn Zayas , DO Primary Care Provider Active Dr. Humza Don , DO Emergency Provider Active Dr. Linda Leal MD Admit Provider, Other Provider Active Dr. Hiren Mcintyre MD Attending Provider, Other Provider Active Team Status: Inactive Member Role Status Dates Dr. Jazlyn Zayas DO Primary Care Provider Active Dr. Humza Don , DO Emergency Provider Active Dr. Linda Leal MD Admit Provider, Other Provider Active Dr. Hiren Mcintyre MD Attending Provider Active Team Status: Inactive Member Role Status Dates Dr. Jazlyn Zayas DO Primary Care Provider Active Start: July 20, 2024 End: July 20, 2024 Dr. Jazlyn Zayas DO Referring Provider Active Start: July 20, 2024 End: July 20, 2024 Clinton CD, PA Attending Provider Active Start: July 20, 2024 End: July 20, 2024 Team Status: Inactive Member Role Status Dates Dr. Jazlyn Zayas DO Primary Care Provider Active Start: August 25, 2024 End: August 25, 2024 Dr. Jazlyn Zayas DO Referring Provider Active Start: August 25, 2024 End: August 25, 2024 Liliana Henry PA, PA Attending Provider Active Start: August 25, 2024 End: August 25, 2024 Team Status: Inactive Member Role Status Dates Dr. Jazlyn Zayas DO Primary Care Provider Active Start: August 25, 2024 End: August 25, 2024 Liliana Henry PA, PA Attending Provider Active Start: August 25, 2024 End: August 25, 2024 Liliana Henry PA, PA Referring Provider Active Start: August 25, 2024 End: August 25, 2024 Team Status: Inactive Member Role Status Dates Dr. Jazlyn Zayas DO Primary Care Provider Active Start: September 25, 2024 End: September 25, 2024 Dr. Jazlyn Zayas DO Referring Provider Active Start: September 25, 2024 End: September 25, 2024 Mau DC PA Attending Provider Active Sta rt: September 25, 2024 End: September 25, 2024 Team Status: Inactive Member Role Status Dates Dr. Jazlyn Zayas DO Primary Care Provider Active Start: September 25, 2024 End: September 25, 2024 DAO Tristan Attending Provider Active Sta rt: September 25, 2024 End: September 25, 2024 DAO Tristan Referring Provider Active Sta rt: September 25, 2024 End: September 25, 2024 Team Status: Inactive Member Role Status Dates Dr. Jazlyn Zayas DO Primary Care Provider Active Start: December 29, 2024 End: December 29, 2024 Dr. Jazlyn Zayas DO Referring Provider Active Start: December 29, 2024 End: December 29, 2024 Clinton DC PA Attending Provider Active Start: December 29, 2024 End: December 29, 2024 Team Status: Inactive Member Role Status Dates Dr. Jazlyn Zayas DO Primary Care Provider Active Start: January 20, 2025 End: January 20, 2025 Dr. Jazlyn Zayas DO Referring Provider Active Start: January 20, 2025 End: January 20, 2025 Liliana DC, PA Attending Provider Active Start: January 20, 2025 End: January 20, 2025 Reason for Visit (unrecogniz ed section and content) Specialty Diagnoses / Procedures Referred By Contac t Referred To Contact Diagnoses CAD in [place] artery Procedures I25.10 Consuelo Bonner DO [address] [facility] [address] [place] [address] [facility] [address] [place] [id number] Referral ID Status Reason Start Date Expiration Date Visits Re quested Visits Authorized [id number] 1 1 Reason Comments Post-op Reason Onset Date Comments page 12/30/2022 Reason Comments Post-op Reason Onset Date Comments Prior Authorization 12/18/2022 Scheduled Active and Recently Administ ered Medications (unrecognized section and content) Medication Order 12/23/2022 12/24/2022 12/25/2022 amiodarone (Pacerone) tablet 400 mg 400 mg, Oral, 2 times daily, First dose on 12/24/22 at 0900, For 14 days 0836 (Given - Provider: Eugenia Ly RN)2141 (Given - Provider: Alec Bentley RN) 0854 (Given - Provider: Hanna Pak RN) aspirin EC tablet 81 mg 81 mg, Oral, Daily, First dose on Sat12/19/22 at 0900, Do not crush, chew, or split. 0900 (Not Given - Provider: Al Irwin RN - Reason: NPO)1207 (Given - Provider: Al Irwin RN) 0836 (Given - Provider: Eugenia Ly RN) 0854 (Given - Provider: Hanna Pak RN) bisacodyl (Dulcolax) suppository 10 mg 10 mg, Rectal, 2 times daily, First dose on Sat12/23/22 at 0900 0900 (Given - Provider: Al Irwin RN)2100 (Given - Provider: Vivien Orozco RN) 0900 (Not Given - Provider: Eugenia Ly RN - Reason: Patient/family refused - Comment: Patient with large BM)2100 (Not Given - Provider: Alec Bentley RN - Reason: Patient/family refused) 0900 (Not Given - Provider: Hanna Pak RN - Reason: Patient/family refused) chlorhexidine (Peridex) 0.12 % solution 15 mL (CANCELED) 15 mL, Mouth/Throat, 2 times daily, First dose on Paulette 12/20/22 at 1330, For 7 days, Phase II/On Unit, Rinse and spit. Do not swallow. 0937 (Given - Provider: Al Irwin RN)2010 (Given - Provider: Vivien Orozco, ERIKA) furosemide (Lasix) injection 20 mg (CANCELED) 20 mg, IntraVENous, 2 times daily, First dose on 12/22/22 at 0900 0938 (Given - Provider: Al Irwin, ERIKA)2010 (Given - Provider: Vivien Orozco RN) 834 (Given - Provider: Eugenia Ly, ERIKA)2139 (Given - Provider: Alec Bentley, RN) heparin injection 5,000 Units 5,000 Units, SubCUTAneous, Every 12 hours scheduled (2 times per day), First dose on Sat12/21/22 at 0915 0938 (Given - Provider: Al Irwin RN)2010 (Given - Provider: Vivien Orozco RN) 0836 (Given - Provider: Eugenia Ly, RN)2140 (Given - Provider: Alec Bentley, ERIKA) 08 (Given - Provider: Hanna Pak, ERIKA) Lidocaine 4 % patch 1 patch 1 patch, TransDERmal, Administer over 12 Hours, Daily, First dose on 12/22/22 at 0900, Apply patch to back . Patch may remain in place for up to 12 hours in any 24 hour period. 0937 (Medication Applied - Provider: Al Irwin RN - Comment: back)2136 (Medication Removed - Provider: Vivien Orozco RN) 0834 (Not Given - Provider: Eugenia Ly RN - Reason: Patient/family refused) 0900 (Not Given - Provider: Hanna Pak RN - Reason: Patient/family refused) magnesium hydroxide (Milk of Magnesia) 400 MG/5ML suspension 30 mL (CANCELED) 30 mL, Oral, Daily, First dose (after last modification) on 12/23/22 at 0600, Recovery & On Unit 0602 (Given - Provider: Vivien Orozco RN) 0537 (Given - Provider: Vivien Orozco RN) 0600 (Not Given - Provider: Alec Bentley RN - Reason: Patient/family refused) metoprolol tartrate (Lopressor) tablet 25 mg 25 mg, Oral, 2 times daily, First dose (after last modification) on 12/23/22 at 0900, Hold for SBP less than 105 and/or MAPs less than 65 and/or HR less than 60 09 (Not Given - Provider: Al Irwin RN - Reason: NPO)2012 (Given - Provider: Vivien Orozco RN) 0836 (Given - Provider: Eugenia Ly, RN)214 (Given - Provider: Alec Bentley, ERIKA) 0854 (Given - Provider: Hanna Pak RN) mupirocin (Bactroban) 2 % ointment (COMPLETED) Nasal, 2 times daily, First dose on Paulette 12/20/22 at 1330, For 4 days, Phase II/On Unit 0937 (Given - Provider: Al Irwin RN)2021 (Given - Provider: Vivien Orozco RN) pantoprazole (ProtoNix) EC tablet 40 mg 40 mg, Oral, Daily before breakfast, First dose on Sat12/22/22 at 0700, Do not crush, chew, or split. 0700 (Not Given - Provider: Al Irwin RN - Reason: Other)1212 (Given - Provider: Al Irwin RN) 0616 (Given - Provider: Vivien Orozco RN) 0700 (Not Given - Provider: Alec Bentley RN - Reason: Patient/family refused) polyethylene glycol (PEG) 3350 (Miralax) packet 17 g 17 g, Oral, Daily, First dose on Paulette 12/20/22 at 1330, Recovery & On Unit, Bowel Regimen - for prevention of constipation. 0900 (Not Given - Provider: Al Irwin RN - Reason: NPO)1206 (Given - Provider: Al Irwin RN) 0835 (Given - Provider: Eugenia Ly RN) 0900 (Not Given - Provider: Hanna Pak RN - Reason: Patient/family refused) rosuvastatin (Crestor) tablet 40 mg 40 mg, Oral, Daily, First dose on Sat12/19/22 at 0900 0900 (Not Given - Provider: Al Irwin RN - Reason: NPO)1410 (Given - Provider: Al Irwin RN) 0836 (Given - Provider: Eugenia Ly RN) 0854 (Given - Provider: Hanna Pak RN) senna-docusate sodium (Senokot-S) 8.6-50 MG tablet 2 tablet 2 tablet, Oral, Nightly, First dose on Paulette 12/20/22 at 2100, Recovery & On Unit, Bowel Regimen - for prevention of constipation. 2011 (Given - Provider: Vivien Orozco RN) 2100 (Not Given - Provider: Alec Bentley RN - Reason: Patient/family refused) Continuous Medication Order 12/23/2022 12/24/2022 12/25/2022 amiodarone (Nexterone) 450 mg in dextrose 5 % 250 mL (1.8 mg/mL) infusion (CANCELED) 0.5 mg/min (16.6667 mL/hr, rounded to 16.67 mL/hr), IntraVENous, Continuous, Starting on 12/22/22 at 2257, For 18 hours, Use in-line filter. 0031 (New Bag - Provider: Vivien Orozco RN)0800 (Rate/Dose Verify - Provider: Al Irwin RN) amiodarone (Nexterone) 450 mg in dextrose 5 % 250 mL (1.8 mg/mL) infusion (CANCELED) 0.5 mg/min (16.6667 mL/hr, rounded to 16.67 mL/hr), IntraVENous, Continuous, Starting on 12/23/22 at 1015, Use in-line filter. 1412 (Rate/Dose Verify - Provider: Al Irwin RN)1648 (New Bag - Provider: Al Irwin RN) 0604 (Stopped - Provider: Vivien Orozco RN) PRN Medication Order 12/23/2022 12/24/2022 12/25/2022 calcium gluconate 2000 mg in 100 mL IVPB premix 2,000 mg, IntraVENous, at 50 mL/hr, Administer over 2 Hours, PRN, ionized calcium less than 4.3, Starting on Paulette 12/20/22 at 1315, Recovery & On Unit, Give 2000 mg for ionized calcium less than 4.3 premix bag 0304 (New Bag - Provider: Vivien Orozco RN)0504 (Stopped - Provider: Vivien Orozco RN) 0531 (New Bag - Provider: Vivien Orozco RN)0731 (Stopped - Provider: Eugenia Ly RN) calcium gluconate 2000 mg in 100 mL IVPB premix 2,000 mg, IntraVENous, at 100 mL/hr, Administer over 1 Hours, PRN, ionized calcium less than 4.3, Starting on Sat12/25/22 at 0615, Give 2gm Calcium gluconate for ionized calcium less than 4.3 premix bag 0621 (New Bag - Provider: Alec Bentley, RN)0721 (Stopped - Provider: Alec Bentley RN) dextrose 5 % infusion 100 mL/hr, IntraVENous, PRN, Blood sugar less than 70mg/dL, Starting on Paulette 12/20/22 at 1315, Recovery & On Unit, Start infusion following administration of dextrose 50% or glucagon. dextrose 50 % solution 12.5 g 12.5 g, IntraVENous, PRN, low blood sugar, Blood glucose less than 70 mg/dL and patient NOT ALERT or NPO., Starting on Paulette 12/20/22 at 1315, Recovery & On Unit, If patient does not respond within 5 minutes, repeat dose x1. Start D5W at 100 mL/hour until ordering provider can be reached. Repeat blood glucose in 15 minutes. If blood glucose is less than 70 mg/dL, repeat treatment and recheck blood glucose in 15 minutes x2. If using Glucostabilizer, dose as instructed per system. glucagon (human recombinant) injection 1 mg 1 mg, IntraMUSCular, PRN, low blood sugar, Blood glucose less than 70 mg/dL and patient NOT ALERT or NPO and does not have IV access., Starting on Paulette 12/20/22 at 1315, Recovery & On Unit, After administration, attempt intravenous access and start D5W at 100 mL/hr. Repeat blood glucose in 15 minutes x2 and notify provider. glucose oral gel 15 g 15 g, Oral, As needed, low blood sugar, Starting on Paulette 12/20/22 at 1315, Recovery & On Unit, If blood glucose less than 50 mg/dL and patient ALERT and NOT NPO, give 2 tubes glucose gel. If blood glucose less than 70 mg/dL and patient ALERT and NOT NPO, give 1 tube glucose gel. Repeat blood glucose in 15 minutes. If blood glucose is less than 70 mg/dL, repeat treatment and recheck blood glucose in 15 minutes x2 and notify provider. magnesium sulfate IVPB 4,000 mg(Linked Group 1) 4,000 mg, IntraVENous, at 25 mL/hr, Administer over 4 Hours, As needed, Per Magnesium Replacement Protocol, Starting on Paulette 12/20/22 at 1315, Recovery & On Unit, Mg Lab Replacement Action 1.4-1.6 2 gram IVPB x 1 doses 1.0-1.3 4 gram IVPB x 1 doses Less than 1.0 CALL PHYSICIAN and 4 gram IVPB x 1 doses Infuse at 1 gram/hr. Repeat Mag level next AM. Not for use in Patients with CrCl less than 30 mL/min. magnesium sulfate IVPB premix 2,000 mg(Linked Group 1) 2,000 mg, IntraVENous, at 25 mL/hr, Administer over 2 Hours, As needed, Per Magnesium Replacement Protocol, Starting on Paulette 12/20/22 at 1315, Recovery & On Unit, Mg Lab Replacement Action 1.4-1.6 2 gram IVPB x 1 doses 1.0-1.3 4 gram IVPB x 1 doses Less than 1.0 CALL PHYSICIAN and 4 gram IVPB x 1 doses Infuse at 1 gram/hr. Repeat Mag level next AM. Not for use in Patients with CrCl less than 30 mL/min. ondansetron (Zofran) injection 4 mg(Linked Group 2) 4 mg, IntraVENous, Every 6 hours PRN, nausea, vomiting, Starting on Paulette 12/20/22 at 1315, Recovery & On Unit, 1st Line. Give IV if patient is unable to take orally. If inadequate response within 60 minutes, proceed to next-line agent or contact provider if no further options ordered. 0645 (Given - Provider: Vivien Orozco RN) ondansetron ODT (Zofran-ODT) disintegrating tablet 4 mg(Linked Group 2) 4 mg, Oral, Every 8 hours PRN, nausea, vomiting, Starting on Paulette 12/20/22 at 1315, Recovery & On Unit, 1st Line. If inadequate response within 60 minutes, proceed to next-line agent or contact provider if no further options ordered. Patient should allow tablet to dissolve on tongue. Do not remove from blister pack until just before administering. 0645 (See Alternative - Provider: Vivien Orozco RN) potassium chloride 20 mEq in sodium chloride 0.9 % 250 mL IVPB(Linked Group 3) 20 mEq, IntraVENous, at 130 mL/hr, Administer over 2 Hours, PRN, Per IV Potassium Replacement Protocol, Starting on Paulette 12/20/22 at 1315, Recovery & On Unit, For Peripheral Line Use K Lab Replacement Action 3.1-3.5 20 mEq IVPB x 1 doses 2.7-3.0 40 mEq IVPB x 1 doses less than 2.7 CALL PROVIDER and administer 40 mEq IVPB x 1 dose Infuse at 10 mEq/hr Repeat Potassium lab 1 hour after administration. Protocol not for use in Patients with CrCl less than 30mL/min potassium chloride 40 mEq in sodium chloride 0.9 % 500 mL IVPB(Linked Group 3) 40 mEq, IntraVENous, at 130 mL/hr, Administer over 4 Hours, PRN, Per IV Potassium Replacement Protocol, Starting on Paulette 12/20/22 at 1315, Recovery & On Unit, For Peripheral Line Use. K Lab Replacement Action 3.1-3.5 20 mEq IVPB x 1 doses 2.7-3.0 40 mEq IVPB x 1 doses less than 2.7 CALL PROVIDER and administer 40 mEq IVPB x 1 dose Infuse at 10 mEq/hr Repeat Potassium lab 1 hour after administration. Protocol not for use in Patients with CrCl less than 30mL/min potassium chloride CR (Klor-Con M10) ER tablet 20 mEq 20 mEq, Oral, PRN, Hypokalemia, Starting on Sat12/21/22 at 0000, Phase II/On Unit, If patient is intubated or not tolerating PO use PRN IV replacement protocol Potassium level Dose LESS than 3.0 = Give 20 mEq x 3 doses 3.0-3.6 = Give 20 mEq x 2 doses Recheck potassium level 2 hour after replacement given, place order for lab under [place] If potassium level LESS than 3 after 1st replacement: Call surgeon. Do not crush or break. Do not crush or chew. 0621 (Given - Provider: Alec Bentley RN)0622 (Given - Provider: Alec Bentley RN) potassium chloride IVPB 20 mEq(Linked Group 3) 20 mEq, IntraVENous, at 50 mL/hr, Administer over 1 Hours, PRN, Per IV Potassium Replacement Protocol, Starting on Paulette 12/20/22 at 1315, Recovery & On Unit, For Central Line Use Only K Lab Replacement Action 3.1-3.5 20 mEq IVPB x 1 doses 2.7-3.0 20 mEq IVPB x 2 doses (40 mEq Total) less than 2.7 CALL PROVIDER and administer 20 mEq IVPB x 2 doses (40 mEq Total) Infuse at 20 mEq/hr Repeat Potassium lab 1 hour after final administration. Protocol not for use in Patients with CrCl less than 30mL/min For central line administration only. prochlorperazine (Compazine) injection 5 mg 5 mg, IntraVENous, Every 6 hours PRN, nausea, vomiting, 2nd line for nausea., Starting on Sat12/21/22 at 1207 simethicone (Mylicon,Gas-X) capsule 125 mg 125 mg, Oral, Every 6 hours PRN, flatulence, Starting on Sat12/21/22 at 1208 tiZANidine (Zanaflex) tablet 2 mg 2 mg, Oral, Every 6 hours PRN, muscle spasms, Starting on Sat12/21/22 at 2208 traMADol (Ultram) tablet 25 mg(Linked Group 4) 25 mg, Oral, Every 6 hours PRN, moderate pain (4-6), Starting on 12/22/22 at 0853 traMADol (Ultram) tablet 50 mg(Linked Group 4) 50 mg, Oral, Every 6 hours PRN, severe pain (7-10), Starting on 12/22/22 at 0853 Linked Groups Order Group 1: magnesium sulfate IVPB premix 2,000 mgJump to med 2,000 mg, IntraVENous, at 25 mL/hr, Administer over 2 Hours, As needed, Per Magnesium Replacement Protocol, Starting on Paulette 12/20/22 at 1315, Recovery & On Unit
Mg Lab Replacement Action 1.4-1.6 2 gram IVPB x 1 doses 1.0-1.3 4 gram IVPB x 1 doses Less than 1.0 CALL PHYSICIAN and 4 gram IVPB x 1 doses Infuse at 1 gram/hr. Repeat Mag level next AM. Not for use in Patients with CrCl less than 30 mL/min.
Or magnesium sulfate IVPB 4,000 mgJump to med 4,000 mg, IntraVENous, at 25 mL/hr, Administer over 4 Hours, As needed, Per Magnesium Replacement Protocol, Starting on Paulette 12/20/22 at 1315, Recovery & On Unit
Mg Lab Replacement Action 1.4-1.6 2 gram IVPB x 1 doses 1.0-1.3 4 gram IVPB x 1 doses Less than 1.0 CALL PHYSICIAN and 4 gram IVPB x 1 doses Infuse at 1 gram/hr. Repeat Mag level next AM. Not for use in Patients with CrCl less than 30 mL/min.
Group 2: ondansetron ODT (Zofran-ODT) disintegrating tablet 4 mgJump to med 4 mg, Oral, Every 8 hours PRN, nausea, vomiting, Starting on Paulette 12/20/22 at 1315, Recovery & On Unit
1st Line. If inadequate response within 60 minutes, proceed to next-line agent or contact provider if no further options ordered. Patient should allow tablet to dissolve on tongue. Do not remove from blister pack until just before administering.
Or ondansetron (Zofran) injection 4 mgJump to med 4 mg, IntraVENous, Every 6 hours PRN, nausea, vomiting, Starting on Paulette 12/20/22 at 1315, Recovery & On Unit
1st Line. Give IV if patient is unable to take orally. If inadequate response within 60 minutes, proceed to next-line agent or contact provider if no further options ordered.
Group 3: potassium chloride IVPB 20 mEqJump to med 20 mEq, IntraVENous, at 50 mL/hr, Administer over 1 Hours, PRN, Per IV Potassium Replacement Protocol, Starting on Paulette 12/20/22 at 1315, Recovery & On Unit
For Central Line Use Only K Lab Replacement Action 3.1-3.5 20 mEq IVPB x 1 doses &n bsp;& nbsp; 2.7-3.0 20 mEq IVPB x 2 doses &n bsp;& nbsp; (40 mEq Total) less than 2.7 CALL PROVIDER and administer &nbsp ; 20 mEq IVPB x 2 doses &n bsp;& nbsp; (40 mEq Total) Infuse at 20 mEq/hr Repeat Potassium lab 1 hour after final administration. Protocol not for use in Patients with CrCl less than 30mL/min For central line administration only.
Or potassium chloride 20 mEq in sodium chloride 0.9 % 250 mL IVPBJump to med 20 mEq, IntraVENous, at 130 mL/hr, Administer over 2 Hours, PRN, Per IV Potassium Replacement Protocol, Starting on Paulette 12/20/22 at 1315, Recovery & On Unit
For Peripheral Line Use K Lab Replacement Action 3.1-3.5 20 mEq IVPB x 1 doses &n bsp;& nbsp; 2.7-3.0 40 mEq IVPB x 1 doses &n bsp;& nbsp; less than 2.7 CALL PROVIDER and administer &nbs p;&nb sp; 40 mEq IVPB x 1 dose Infuse at 10 mEq/hr Repeat Potassium lab 1 hour after administration. Protocol not for use in Patients with CrCl less than 30mL/min
Or potassium chloride 40 mEq in sodium chloride 0.9 % 500 mL IVPBJump to med 40 mEq, IntraVENous, at 130 mL/hr, Administer over 4 Hours, PRN, Per IV Potassium Replacement Protocol, Starting on Paulette 12/20/22 at 1315, Recovery & On Unit
For Peripheral Line Use. K Lab Replacement Action 3.1-3.5 20 mEq IVPB x 1 doses &n bsp;& nbsp; 2.7-3.0 40 mEq IVPB x 1 doses &n bsp;& nbsp; less than 2.7 CALL PROVIDER and administer &nbs p;&nb sp; 40 mEq IVPB x 1 dose Infuse at 10 mEq/hr Repeat Potassium lab 1 hour after administration. Protocol not for use in Patients with CrCl less than 30mL/min
Group 4: traMADol (Ultram) tablet 25 mgJump to med 25 mg, Oral, Every 6 hours PRN, moderate pain (4-6), Starting on 12/22/22 at 0853 Or traMADol (Ultram) tablet 50 mgJump to med 50 mg, Oral, Every 6 hours PRN, severe pain (7-10), Starting on 12/22/22 at 0853 FOR RECORDS PERTAINING TO PATIENTS WHO ARE OR HAVE BEEN ENROLLED IN A CHEMICAL DEPENDENCY/SUBSTANCEABUSE PROGRAM, SOME INFORMATION MAY BE OMITTED. This clinical summary was aggregated from multiple sources. Caution should be exercised in using it in the provision of clinical care. This summary normalizes information from multiple sources, and as a consequence, information in this document may materially change the coding, format and clinical context of patient data. In addition, data may be omitted in some cases. CLINICAL DECISIONS SHOULD BE BASED ON THE PRIMARY CLINICAL RECORDS. [facility]. provides no warranty or guarantee of the accuracy or completeness of information in this document.
--- NOTE | 2025-02-16 17:47 | STRESSREP ---
Stress Test Report Exercise myocardial perfusion stress test. 85-year-old man with a history of fatigue and shortness of breath Stress protocol: Resting EKG demonstrates normal sinus rhythm with a rate of 62 bpm resting blood pressure is 150/88 mmHg. The patient exercised according to the regular [place] protocol for a total duration of 4 minutes attaining a maximum heart rate of 116 bpm which was 85% of maximum predicted heart rate; the maximum workload was 7 metabolic equivalents. At rest there were no ST or T wave changes noted to suggest ischemia and at peak exercise upsloping ST changes only were noted which did not meet the criteria for ischemia. No clinical angina was noted the test was terminated due to the target heart rate being achieved/fatigue. The peak blood pressure was 166/94 mmHg. Rate-pressure product was 17,400. Myocardial perfusion protocol. 14.8 mCi of technetium 99m sestamibi was injected at rest. The patient exercised according to regular [place] protocol for total duration of 4 minutes and at peak exercise 44.7 mCi of technetium 99m sestamibi was injected stress images were obtained stress and rest images were reconstructed in comparing the short axis vertical long and horizontal long axis. Gated images were also obtained. Perfusion SPECT analysis: Review of the stress images demonstrate normal uptake of tracer noted in all areas of the myocardium. The resting images similarly demonstrate normal uptake of tracer noted in all areas of the myocardium. No areas of reversibility are noted to suggest ischemia no previous infarct was noted. Gated SPECT analysis: The gated ejection fraction is 56%. Conclusion: Normal exercise myocardial perfusion stress test at a moderate workload Preserved ejection fraction.
== END | disposition home or self-care (01) ==
PROVIDERS: PCP Internal Medicine; Referring Provider Physician Assistant Medical; Visit Provider Physician Assistant Medical
DX: Z95.1 Presence of aortocoronary bypass graft (principal); R53.83 Other fatigue
CPT/HCPCS: 78452; 93017; A9500; A4216

== ENCOUNTER → 2025-02-18 | Outpatient (CLI) | payer MEDICARE, SELFPAY ==
[2023-01-21 15:10] VITALS: BMI 30.8
[2025-02-18 16:12] LABS: Hematocrit 50.2 % (40-54); Hemoglobin 16.4 g/dL (13.0-16.5); Immature Granulocytes Count 0.020 X10^3/uL (0.0-0.0); Mean Corp Hgb Conc 32.7 g/dL (32-36); Mean Corpuscular Volume 88.4 fL (80-94); Mean Platelet Vol. 10.5 fl (6.2-12.0); NRBC Flagged by Analyzer 0 % (0-5); Platelet Count 185 K/mm3 (150-450); RBC Distribution Width CV 13.8 % (11.6-14.6); RBC Distribution Width SD 44.4 fl (35.1-43.9); Red Blood Count 5.68 M/mm3 (4.6-6.2); White Blood Count 7.6 K/mm3 (4.4-11.0)
[2025-02-18 16:51] LABS: Cholesterol 289 mg/dL (<=200); Low Density Lipoprotein Calc. 146 mg/dL; Triglycerides 540 mg/dL; Very Low Density Lipoprotein 108 mg/dL (5-40); cholesterol:hdl ratio screen 8.26
[2025-02-18 16:52] LABS: AST(SGOT) 24 U/L (<=37); Alanine Aminotransfer ALT/SGPT 20 U/L (<=46); Albumin, Serum 3.9 g/dL (3.4-4.8); Alkaline Phosphatase 80 U/L (40-129); Anion Gap 13 (5-15); BUN 20 mg/dL (4-19); BUN/Creat Ratio 12.4 RATIO (10-20); Calcium,Total 8.8 mg/dL (7.6-11.0); Carbon Dioxide 20.6 mmol/L (21.0-32.0); Chloride 106 mmol/L (98-108); Globulin 2.8 g/dL (2.2-4.2); Glucose 115 mg/dL (70-99); Potassium 4.9 mmol/L (3.3-5.1)
--- OUTSIDE RECORDS SUMMARY | 2025-02-18 23:04 | XMS RPT_ITS | CCD ---
Author Organization [facility] Care Team Providers Care Supervisor Sewer Maintenance Name Role Phone Jazlyn Zayas Unavailable Karri Cat Unavailable Jazlyn Zayas Unavailable Terrence Wood Unavailable Gravius, [...] Cat MD Unavailable Jazlyn Zayas DO Unavailable [phone] Terrence Wood MD Unavailable Kaylie Miles Unavailable Anand Lewis Unavailable Slarb LUMBER CARRIER, Amina Unavailable Unavailable Malinda Wu LPN Unavailable Unavailable Gravius AUTOMATION AND CONTROL ENGINEER, Jodi Unavailable Unavailable Unavailable Unavailable Karri Cat Unavailable Gravius, Jodi Unavailable Unavailable Dr. Jazlyn Zayas Primary Care Provider Dr. Jazlyn Zayas Referring Provider DAO Babin Attending Provider DAO Daly Attending Provider Jazlyn Zayas DO Unavailable Huey LUMBER CARRIER, Ginette Unavailable Unavailable Elijahk AUTOMATION AND CONTROL ENGINEER, Madai Unavailable Unavailable Ammy, Jayaprakash Unavailable Houghton AUTOMATION AND CONTROL ENGINEER, Kayela Unavailable Unavailable Ruiz TOSCANON, Kenneth Unavailable Unavailable Dr. Jazlyn Zayas Primary Care Provider Dr. Jazlyn Zayas Referring Provider Dr. Ronnie Khan Attending Provider Dr. Jazlyn Zayas Primary Care Provider Dr. Jazlyn Zayas Referring Provider DAO Daly Attending Provider [phone] Dr. Jazlyn Zayas Primary Care Provider [phone] Dr. Jazlyn Zayas Referring Provider DAO Daly Attending Provider CONSUELO BONNER Referring Unavailable JAZLYN ZAYAS Primary Care Unavailable TIP, TOMMIE Consulting Unavailable NICKERSON, HUMZA Attending Unavailable NICKERSON, HUMZA Admitting Unavailable ELI, GREG Consulting Unavailable FORTE, OCTAVIA Consulting Unavailable Jazlyn Zayas DO [facility] Unavailable Unavailable Unavailable Jazlyn Zayas DO Primary Care Provider Dr. Jazlyn Zayas Primary Care Provider Dr. Osvaldo Bolaños Emergency Provider [phone] Dr. Sarah Hsu Admit Provider Dr. Sarah Hsu Other Provider Dr. Coleman Khan Other Provider Dr. Ronnie Khan Attending Provider Dr. Ronnie Khan Other Provider Dr. Coleman Khan Attending Provider Dr. Jazlyn Zayas Referring Provider DAO Smith Attending Provider Giovanni YANETLisette Unavailable Dr. Jazlyn Zayas Primary Care Provider Dr. Anand Lundberg Attending Provider Dr. Jazlyn Zayas Primary Care Provider Dr. Jazlyn Zayas Referring Provider Dr. Anand Lundberg Attending Provider Dr. Humza Don Emergency Provider Elvis, Dr. Linda Pelletier Admit Provider Dr. Linda Leal Attending Provider Elvis, Dr. Linda Pelletier Other Provider Dr. Hiren Mcintyre Attending Provider Dr. Hiren Mcintyre Other Provider Dr. Jazlyn Zayas DO Primary Care Provider [phone] Dr. Jazlyn Zayas DO Referring Provider Clinton Babin Attending Provider Liliana Smith Attending Provider Liliana Smith Referring Provider Mau Daly Attending Provider Mau Daly Referring Provider Dr. Jazlyn Zayas DO Primary Care Provider [phone] Dr. Jazlyn Zayas DO Referring Provider Clinton Babni Attending Provider Liliana Smith Attending Provider Jazlyn Zayas Primary Care Unavailable Liliana Smith Referring Unavail able Liliana Smith Attending Unavail able Jazlyn Zayas Referring Unavailable Liliana Smith Attending Unavail able Jose Manuel, Jazlyn Primary Care Unavailable Jose Manuel, Jazlyn Primary Care Unavailable Liliana Smith Referring Unavail able Liliana Smith Consulting Unavail able Ronnie Khan Attending Unavailable Jose Manuel, Jazlyn Primary Care Unavailable [...] Manuel, Jazlyn Referring Unavailable Jose Manuel, Jazlyn Referring Unavailable Jose Manuel, Jazlyn Primary Care Unavailable Clinton Babin Attending Unavailable Jose Manuel, Jazlyn Primary Care Unavailable Mau Daly Attending Unavailable Mau Daly Referring Unavailable Liliana Smith Referring Unavail able Jose Manuel, Jazlyn Primary Care Unavailable Liliana Smith Attending Unavail able Allergies Allergy Classification Reported Allergen(s) Allergy Type [...] Quantity: 30 {Tablet} Refills: 0 Ordered: 27-Jan-2016 Jose Manuel GALLARDO Jazlyn Zayas DO Jazlyn Start : 27-Jan-2016 End : 26-Feb-2016 Inactive [...] 12:00am Start: 12-03-2023 take 1 capsule by [facility] twice daily coenzyme Q10 Active 1 CAP [...] pain traMADol (Ultram) tablet 25 mg Vitamins A,C,U-Pfzz-Zjgpxo (Preservision Areds) 4,296 mcg-226 mg-90 mg capsule (7 sources) Start: 04-17-2023 Vitamins A,C,E -Zinc-Copper (Preservision Areds) 4,296 mcg-226 mg-90 mg capsule Active 1 NMA PO TWICE A DAY April 17, 2023 12:00am Start: 04-17-2023 take 1 capsule by [facility] twice daily Vitamins A,C,N-Qmcr-Cinwbp (Preservision Areds) 4,296 mcg-226 mg-90 mg capsule Active 1 CAP PO TWICE A DAY April 17, 2023 12:00am Start: 04-17-2023 take 1 capsule by [facility] twice daily Vitamins A,C,K-Zkof-Uogbpd (Preservision Areds) 4,296 mcg-226 mg-90 mg capsule Active 1 CAP PO TWICE A DAY April 16, 2023 11:00pm Completed/Discontinued Medications Medication Drug Class(es) Dates Sig (Normalized) Sig (Original) 100 ml acetaminophen 10 mg/ml injection (4 sources) Start: 12-22-2022 End: 12-23-2022 acetaminophen (Ofirmev) injection 1,000 mg Start: 12-20-2022 End: 12-22-2022 take 1 tablet by mouth every six hours acetaminophen (Tylenol) tablet 1,000 mg [id number] 200 actuat albuterol 0.09 mg/actuat metered dose [...] Quantity: 20 {Tablet} Refills: 0 Ordered: 20-Aug-2006 RICHIE HOLTMOON Start : 20-Aug-2006 End : 02-Sep-2006 Inactive [...] four docusate sodium 50 mg / sennosides, detention 8.6 mg oral tablet (2 sources) Start: [...] % infusion 0.5 ml heparin sodium, porcine 92694 unt/ml prefilled syringe (2 sources) Unfractionated Heparin, [...] 1 unt/ml injection (2 sources) Insulin Start: End: insulin regular 100 units in 100 [...] {Tablet} Refills: 0 Ordered: 18-Feb-2014 Jose Manuel GALLARDOJazlyn Jose Manuel GALLARDO Jazlyn Start : 09-Dec-2013 [...] 0.9 % (500 mcg/mL) (Nipride) infusion nystatin 107181 unt/ml oral suspension (14 sources) Polyene Antifungal [...] days Quantity: 250 {Milliliter} Refills: 0 Ordered: 2-Arash-2023 Chadwick Sethi LPN Start : 28-Dec-2022 Active Comments: swish around in mouth and retain for as long as possible before swallowingQs 10 day supply Start: 08-29-2021 End: 09-12-2021 take 4-6 mL by mouth four times daily Nystatin [id number] UNIT/ML Mouth/Throat Suspension 4-6 Milliliter qid for [...] x2 days t hen qid x5 days. Hiltons-3 Fatty Acids (Fish Oil Concentrate) 1,000 mg capsule (15 sources) Start: 0 End: 1 take 1 capsule by mouth once daily Hiltons-3 Fatty Acids (Fish Oil Concentrate) 1,000 mg capsule Discontinued 1000 MG PO DAILY January 12, 2020 1:34pm March 07, 2021 9:04am Start: 01-12-2020 End: 03-07-2021 take 1 capsule by mouth once daily Hiltons-3 Fatty Acids (Fish Oil Concentrate) 1,000 mg capsule Discontinued 1000 mg PO DAILY January 12, 2020 12:00am March 07, 2021 9:04am Start: 01-12-2020 End: 03-07-2021 take 1 capsule by mouth once daily Hiltons-3 Fatty Acids (Fish Oil Concentrate) 1,000 mg capsule Discontinued 1000 MG PO DAILY January 11, 2020 11:00pm March 07, 2021 8:04am Start: 01-12-2020 End: 03-07-2021 take 1 capsule by mouth once daily Hiltons-3 Fatty Acids (Fish Oil Concentrate) 1,000 mg capsule Discontinued 1000 MG PO DAILY January 12, 2020 12:00am March 07, 2021 9:04am omeprazole 20 mg delayed release oral capsule (2 sources) Proton Pump Inhibitor Start: 03-22-2023 take 1 capsule by mouth once daily omeprazole 20 mg oral capsule,delayed release (enteric coated) 1 Capsule daily for 30 days Quantity: 30 {Capsule} Refills: 6 Ordered: 22-Mar-2023 Lisette Davila CNP Start : 22-Mar-2023 Active ondansetron 4 mg [...] (Definity) injection 1.65 mg polyethylene glycol 3350 05025 mg powder for oral solution (2 sources) [...] by mouth once daily PHOSPHA 250 NEUTRAL, [id number] (Oral Tablet) 1 (one) Tablet Tablet qd [...] cad s/p stent- seeing Ammy to kelsi sincechela referral now pt having persistent hyperkalemia-- GFR [...] Resolved: 9 06-15-2015 Episodic Malaise and fatigue (4 sources) Fatigue; Translations: [Other fatigue] Onset: 5 [...] Test Name Value Interpretation Reference Range Facility Stress Reporton 02-16-2025 Stress Report [facility] [address] [place] [address] MR#: [id number] Acct: [id number] Name: JESUS ALBERTO GUEVARA Jr. Rep #: [id number] : 1940 85 From: Ronnie Khan MD Primary Care: Dr. Jazlyn Zayas, DO Status: REG CLI Referring Dr: Liliana Henry PA Sex: M C Stress Test Report Exercise myocardial perfusion stress test. 85-year-old man with a history of fatigue and shortness of breath Stress protocol: Resting EKG demonstrates normal sinus rhythm with a rate of 62 bpm resting blood pressure is 150/88 mmHg. The patient exercised according to the regular [place] protocol for a total duration of 4 minutes attaining a maximum heart rate of 116 bpm which was 85% of maximum predicted heart rate; the maximum workload was 7 metabolic equivalents. At rest there were no ST or T wave changes noted to suggest ischemia and at peak exercise upsloping ST changes only were noted which did not meet the criteria for ischemia. No clinical angina was noted the test was terminated due to the target heart rate being achieved/fatigue. The peak blood pressure was 166/94 mmHg. Rate-pressure product was 17,400. Myocardial perfusion protocol. 14.8 mCi of technetium 99m sestamibi was injected at rest. The patient exercised according to regular [place] protocol for total duration of 4 minutes and at peak exercise 44.7 mCi of technetium 99m sestamibi was injected stress images were obtained stress and rest images were reconstructed in comparing the short axis vertical long and horizontal long axis. Gated images were also obtained. Perfusion SPECT analysis: Review of the stress images demonstrate normal uptake of tracer noted in all areas of the myocardium. The resting images similarly demonstrate normal uptake of tracer noted in all areas of the myocardium. No areas of reversibility are noted to suggest ischemia no previous infarct was noted. Gated SPECT analysis: The gated ejection fraction is 56%. Conclusion: Normal exercise myocardial perfusion stress test at a moderate workload Preserved ejection fraction. 02/16/251749 Date Ronnie Khan MD CC: Dr. Jazlyn Zayas, DO; DAO Cuello Date Dictated: 02/16/251746 Date Transcribed: 02/16/251746 Real Estate Services Coordinator: [place] Signed Normal [facility] Cardiology Visit Reporton Cardiology Visit Report [facility] [place] [address] OFFICE VISIT Date of Service: 01/20/25 MR#: [id number] Acct: [id number] Name: JESUS ALBERTO GUEVARA JrAnne-Marie Rep #: [id number] : 1940 Provider: DAO Hein Age/Sex: 84/M Location: [facility] Status: Signed HPI HPI History of Present Illness Details: Jesus Alberto Guevara is an 84-year-old gentleman that presents here today for a hospital follow-up. He has a history of coronary artery disease with angioplasty and stenting to his LAD in 2012. He also has a history of TIA, hyperlipidemia, chronic kidney disease. Patient was admitted to [facility] patient was admitted to [facility] on December 17, 2022 with chest discomfort. He had a mildly elevated troponin. He did undergo a stress test which was felt to be abnormal. 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 Patient underwent [...] (%) 94 Intake Visit Reasons: 4 M Assistant Engineer Required: No Is patient in pain?: No Allergies No Known Allergies Allergy (Verified 01/20/25 09:19) Medications ???Medication ???Instructions ???Recorded ???Confirmed ???Type cholecalciferol (vitamin D3) 50 2,000 unit PO DAILY SUPPLEMENT 01/20/25 History mcg (2,000 unit) chewable tablet aspirin 81 mg tablet,delayed 81 mg PO DAILY #90 tabs 01/21/23 0 01/20/25 Rx release (Adult Aspirin Regimen) vitamins A,C,W-jokb-twmbrl 4,296 1 cap PO BID 04/17/23 01/20/25 [...] infection COVID-19 (08/14/21) Atherosclerotic heart disease of [place] coronary artery without angina pectoris Hyperlipidemia CKD [...] for d (more content not included)... Normal [facility]gent [facility] Visit Reporton 0 12-29-2024 Urgent Care Visit Report [facility] [address], [address] [place] [address] OFFICE VISIT Date of Service: 12/29/24 MR#: [id number] Acct: [id number] Name: JESUS ALBERTO GUEVARA JrAnne-Marie Rep #: [id number] : 1940 Provider: DAO Gill Age/Sex: 84/M Location: [facility] Status: Signed Intake Vital Signs 08/25/24 09:12 12/29/24 08:53 Height 5 ft 11 in BP 154/74 H Blood Pressure Location Lt brachial Position Sitting Respiration 16 Pulse 68 Pulse Source NIBP Temp 98.9 F Temp Source Oral Pulse Oximetry (%) 100 Oxygen Delivery Method room air Intake Visit Reasons: TICK BITE/CONCERN FOR INFECTION Chief Complaint: infected tick bite Assistant Engineer Required: No Is patient in pain?: No [...] drainage, or fever. pt concerned about infection. [facility] Medical History (Updated 12/29/24 @ 09:07 by Clinton DC, PA) Erythema migrans (Lyme disease) Essential hypertension Glaucoma Macular degeneration of both eyes Former smoker History of tapeworm infection COVID-19 (08/14/21) Atherosclerotic heart disease of [place] coronary artery without angina pectoris Hyperlipidemia CKD [...] office today for initial evaluation at the [facility] clinic for a tick bite to the right upper posterior arm occurring on 12/24/2024 while flyfishing in [place] with his son. He went to local urgent care where he was told it was an adult deer tick that had bitten him (after his daughter have removed the tick and full at home) and gave him a one- time dose of doxycycline. Patient states he appreciated true, "bull's-eye" presentation with the outer ring having resolved since then though persistent discomfort and swelling is appreciated to the same. Currently without complaints of fever, chills, sweats, lightheadedness/dizziness , nausea/vomiting though mild headache on date of tick bite was appreciated. No complaints of myalgias or joint pain or neck pain. No cwdn-yrh-lssgmxx products taken to assist. No other associated symptoms and no alleviating/aggravating factors. ROS Const Constitutional: No other (As above) Exam Const General: cooperative, healthy appearing and no acute distress Orientation: alert and awake [facility] Head: normal to inspection Ears: hearing [...] normal Mental (more content not included)... Normal [facility] Chest PA and Lateralon 09-25 Chest PA and Lateral [facility] Imaging Services [address] [place], [place] [address] Chest PA and Lateral MR#: [id number] Acct: [id number] Name: JESUS ALBERTO GUEVARA Jr. Rep #: [id number] : 1940 M 84 From: Erwin mcknight MD PCP: Dr. Jazlyn Zayas DO Status: REG CLI Study: Chest PA and Lateral Date of Exam: 09/25/24 Exam# [id number] Ordering Dr: Mau Rodriguez PROCEDURE: CHEST PA [...] CC: DAO Dobbs; Dr. Jazlyn Zayas DO Real Estate Services Coordinator: Signed Normal [facility] Urgent Care Visit Reporton 0 09-25-2024 Urgent Care Visit Report [facility] [address], [address] [place] [address] OFFICE VISIT Date of Service: 09/25/24 MR#: [id number] Acct: [id number] Name: JESUS ALBERTO GUEVARA Jr. Rep #: [id number] : 1940 Provider: DAO Dobbs Age/Sex: 84/M Location: [facility] Status: Signed Intake Vital Signs 08/25/24 09:12 [...] PNEUMONIA Chief Complaint: cough, fatigue, SOB, wheeze Assistant Engineer Required: No Is patient in pain?: No Allergies No Known Allergies Allergy (Verified 09/25/24 11:58) Have you fallen in the past year?: No Nurse's Note: cough, fatigue, SOB, wheeze x 1 week. recent viral illness prior. denies fever, HERNANDEZ, [place], [facility] Medical History Essential hypertension Glaucoma Macular degeneration of both eyes Former smoker History of tapeworm infection COVID-19 (08/14/21) Atherosclerotic heart disease of [place] coronary artery without angina pectoris Hyperlipidemia CKD [...] Mau Mo (more content not included)... Normal [facility] Bilirubin directOrdered By: Liliana Henry on 08-25-2024 Bilirubin.direct [Mass/Vol] 0.11 mg/dL 0.00-0.30 [facility] Bilirubin, totalOrdered By: Liliana Henry on 08-25-2024 Bilirubin [Mass/Vol] 0.50 mg/dL 0.20-1.00 [facility] Comment on above: For patients on eltr ombopag therapy, use of Dimension [place] TBIL is not recommended. Cardiology Visit Reporton Cardiology Visit Report [facility] [address] [place] [address] OFFICE VISIT Date of Service: 08/25/24 MR#: [id number] Acct: [id number] Name: JESUS ALBERTO GUEVARA Jr. Rep #: [id number] : 1940 Provider: DAO Hein Age/Sex: 84/M Location: [facility] Status: Signed HPI HPI History of Present Illness Details: Jesus Alberto Guevara is an 84-year-old gentleman that presents here today for a hospital follow-up. He has a history of coronary artery disease with angioplasty and stenting to his LAD in 2012. He also has a history of TIA, hyperlipidemia, chronic kidney disease. Patient was admitted to [facility] patient was admitted to [facility] on December 17, 2022 with chest discomfort. He had a mildly elevated troponin. He did undergo a stress test which was felt to be abnormal. 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 Patient underwent [...] 97 Intake Visit Reasons: 3 M FU Assistant Engineer Required: No Is patient in pain?: No Allergies No Known Allergies Allergy (Verified 08/25/24 09:12) Medications ???Medication ???Instructions ???Recorded ???Confirmed ???Type cholecalciferol (vitamin D3) 50 2,000 unit PO DAILY SUPPLEMENT 10/10/18 08/25/24 History mcg (2,000 unit) chewable tablet aspirin 81 mg tablet,delayed 81 mg PO DAILY #90 tabs 01/21/23 08/25/24 Rx release (Adult Aspirin Regimen) vitamins A,C,D-jffb-ngtwwx 4,296 1 cap PO BID 04/17/23 08/25/24 [...] infection COVID-19 (08/14/21) Atherosclerotic heart disease of [place] coronary artery without angina pectoris Hyperlipidemia CKD [...] Pain: No (more content not included)... Normal [facility] High density lipoprotein (HD L) measurementOrdered By: Liliana Henry on 08-25-2024 Cholesterol in HDL [Mass/Vol] 37 mg/dL Low >40 [facility] Comment on above: The drugs N-Acetylcy steine and Metamizole may falsely depress this assay. Reference Range HDL <40 mg/dL Low HDL Cholesterol HDL >or= 60 mg/dL High HDL Cholesterol Laboratory - Chemistry and C hemistry - challengeOrdered By: Liliana Henry on 08-25-2024 AST [Catalytic activity/Vol] 17 U/L 15-37 [facility] Lipid Profileon 08-25-2024 Cholesterol [Mass/Vol] 279 mg/dL High 200 [facility] Comment on above: Order Comment: Comme nts: okay to do non fasting okay to do non fasting Result Comment: <200 mg/dL Desirable 200-240 mg/dL Borderline >240 mg/dL High Risk Performed By: #### L 500.4100, L500.3400 #### [facility] [address] [place], [address] Cholesterol in HDL [Mass/Vol] 37 mg/dL Low [facility] Comment on above: Order Comment: Comme nts: okay to do non fasting okay to do non fasting Result Comment: The drugs N-Acetylcysteine and Metamizole may falsely depress this assay. Reference Range HDL <40 mg/dL Low HDL Cholesterol HDL >or= 60 mg/dL High HDL Cholesterol Performed By: #### L 500.4100, L500.3400 #### [facility] [address] [place], [address] LDL TNP Normal 0-130 [facility] Comment on above: Order Comment: Comme nts: okay to do non fasting okay to do non fasting Performed By: #### L 500.4100, L500.3400 #### [facility] [address] [place], [address] Triglyceride [Mass/Vol] 418 mg/dL High [facility] Comment on above: Order Comment: Comme nts: [...] Performed By: #### L 500.4100, L500.3400 #### [facility] [address] [place], [address] VLDL TNP Normal 5-40 [facility] Comment on above: Order Comment: Comme nts: okay to do non fasting okay to do non fasting Performed By: #### L 500.4100, L500.3400 #### [facility] [address] [place], [address] Liver Profileon 08-25-2024 Albumin [Mass/Vol] 3.3 g/dL Normal 3.2-5.0 [facility] Comment on above: Order Comment: Comme nts: okay to do non fasting okay to do non fasting Performed By: #### L 500.4100, L500.3400 #### [facility] [address] [place], [address] ALK P 97 U/L Normal 45-117 [facility] Comment on above: Order Comment: Comme nts: okay to do non fasting okay to do non fasting Performed By: #### L 500.4100, L500.3400 #### [facility] [address] [place], [address] ALT [Catalytic activity/Vol] 27 U/L Normal 16-61 [facility] Comment on above: Order Comment: Comme nts: okay to do non fasting okay to do non fasting Performed By: #### L 500.4100, L500.3400 #### [facility] [address] [place], [address] AST [Catalytic activity/Vol] 17 U/L Normal 15-37 [facility] Comment on above: Order Comment: Comme nts: okay to do non fasting okay to do non fasting Performed By: #### L 500.4100, L500.3400 #### [facility] [address] [place], [address] Bilirubin [Mass/Vol] 0.50 mg/dL Normal 0.20-1.00 [facility] Comment on above: Order Comment: Comme nts: okay to do non fasting okay to do non fasting Result Comment: For patients on eltrombopag therapy, use of Dimension [place] TBIL is not recommended. Performed By: #### L 500.4100, L500.3400 #### [facility] [address] [place], [address] Bilirubin.direct [Mass/Vol] 0.11 mg/dL Normal 0.00-0.30 [facility] Comment on above: Order Comment: Comme nts: okay to do non fasting okay to do non fasting Performed By: #### L 500.4100, L500.3400 #### [facility] [address] [place], [address] Globulin (S) [Mass/Vol] 3.7 g/dL Normal 2.2-4.2 [facility] Comment on above: Order Comment: Comme nts: okay to do non fasting okay to do non fasting Performed By: #### L 500.4100, L500.3400 #### [facility] [address] [place], [address] T PROT 7.0 g/dL Normal 6.4-8.2 [facility] Comment on above: Order Comment: Comme nts: okay to do non fasting okay to do non fasting Performed By: #### L 500.4100, L500.3400 #### [facility] [address] [place], [address] Low density lipoprotein (LDL ) cholesterol measurementOrdered By: Liliana Henry on 08-25-2024 [facility] Comment on above: Test not performed Serum globulin measurementOr dered By: Liliana Henry on 08-25-2024 Globulin (S) [Mass/Vol] 3.7 g/dL 2.2-4.2 [facility] Serum or plasma alanine dc otransferase (ALT) measurementOrdered By: Liliana Henry on 08-25-2024 ALT [Catalytic activity/Vol] 27 U/L 16-61 [facility] Serum or plasma albumin aric urement (mass/volume)Ordered By: Liliana Henry on 08-25-2024 Albumin [Mass/Vol] 3.3 g/dL 3.2-5.0 [facility] Serum or plasma alkaline antonio sphatase measurementOrdered By: Liliana Henry on 08-25-2024 ALP [Catalytic activity/Vol] 97 U/L 45-117 [facility] Serum or plasma cholesterol measurement (mass/volume)Ordered By: Liliana Henry on 08-25-2024 Cholesterol [Mass/Vol] 279 mg/dL High <200 [facility] Comment on above: <200 mg/dL Desirable 200-240 mg/dL Borderline >240 mg/dL High Risk Total proteinOrdered By: Maykel kulwanthardeep Henry on 08-25-2024 Protein [Mass/Vol] 7.0 g/dL 6.4-8.2 [facility] Triglycerides measurementOrd ered By: Liliana Henry on 08-25-2024 Triglyceride [Mass/Vol] 418 mg/dL High <199 [facility] Comment on above: The drugs N-Acetylcy steine [...] Liliana Henry on 08-25-2024 VLDL Cholesterol TNP [facility] Comment on above: Test not performed Laboratory - Microbiology an d Antimicrobial susceptibilityon 07-20-2024 SARS-CoV-2 (COVID-19) RNA RIVKA+probe Ql (Unsp spec) Not detected [facility] Visit Reporton 1 09-20-2023 Urgent Care Visit Report [facility] [address], [address] [place] [address] OFFICE VISIT Date of Service: 07/20/24 MR#: [id number] Acct: [id number] Name: JESUS ALBERTO GUEVARA Jr. Rep #: [id number] : 1940 Provider: DAO Gill Age/Sex: 84/M Location: [facility] Status: Signed Intake Vital Signs 04/10/24 11:32 [...] 07/20/24 Rx release (Adult Aspirin Regimen) vitamins A,C,G-mxnw-dcclwx 4,296 1 cap PO BID 04/17/23 07/20/24 [...] to someone at work that had covid. [facility] Medical History (Updated 04/10/24 @ 11:57 by Liliana DC, PA) Essential hypertension Glaucoma Macular degeneration of both eyes Former smoker History of tapeworm infection COVID-19 (08/14/21) Atherosclerotic heart disease of [place] coronary artery without angina pectoris Hyperlipidemia CKD [...] Skin General: (more content not included)... Normal [facility] Cardiology Visit Reporton Cardiology Visit Report [facility] [address] [place] [address] OFFICE VISIT Date of Service: 04/10/24 MR#: [id number] Acct: [id number] Name: JESUS ALBERTO GUEVARA Jr. Rep #: [id number] : 1940 Provider: DAO Hein Age/Sex: 84/M Location[facility] Status: Signed HPI HPI History of Present Illness Details: Jesus Alberto Guevara is an 83-year-old gentleman that presents here today for a hospital follow-up. He has a history of coronary artery disease with angioplasty and stenting to his LAD in 2012. He also has a history of TIA, hyperlipidemia, chronic kidney disease. Patient was admitted to [facility] patient was admitted to [facility] on December 17, 2022 with chest discomfort. He had a mildly elevated troponin. He did undergo a stress test which was felt to be abnormal. 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: No Is patient in pain?: No Allergies No Known Allergies Allergy (Verified 04/10/24 11:33) Medications ???Medication ???Instructions ???Recorded ???Confirmed ???Type cholecalciferol (vitamin D3) 50 2,000 unit PO DAILY SUPPLEMENT 10/10/18 04/10/24 History mcg (2,000 unit) chewable tablet aspirin 81 mg tablet,delayed 81 mg PO DAILY #90 tabs 01/21/23 04/10/24 Rx release (Adult Aspirin Regimen) vitamins A,C,W-ebmt-hpusfn 4,296 1 cap PO BID 04/17/23 04/10/24 [...] History (Updated 04/10/24 @ 11:57 by Liliana Henry PA, PA) Essential hypertension Glaucoma Macular degeneration of both eyes Former smoker History of tapeworm infection COVID-19 (08/14/21) Atherosclerotic heart disease of [place] coronary artery without angina pectoris Hyperlipidemia CKD [...] weight l (more content not included)... Normal [facility] Absolute lymphocyte countOrd ered By: Hiren Mcintyre on 12-07-2023 Lymphocytes Auto (Unsp spec) [#/Vol] 1.92 10*3/uL 0.83-4.51 [facility] Automated lymphocyte count a s percentage of total leukocytesOrdered By: Hiren Mcintyre on 12-07-2023 Lymphocytes/100 WBC Auto (Unsp spec) 24.9 % 19-41 [facility] Basophil percentageOrdered B y: Hiren Mcintyre on 12-07-2023 Basophils/100 WBC (Bld) 0.8 % 0-1 [facility] Chloride [Moles/Vol] 108 mmol/L 98-107 [facility] Eosinophils/100 WBC (Bld) 2.6 % 0-5 [facility] Glucose [Mass/Vol] 80 mg/dL 74-106 [facility] Hemoglobin (Bld) [Mass/Vol] 15.9 g/dL 13.0-16.5 [facility] Monocytes/100 WBC (Bld) 8.8 % 0-10 [facility] Neutrophils (Bld) [#/Vol] 4.8 10*3/uL 2.0-7.7 [facility] Neutrophils/100 WBC (Bld) 62.6 % 47-70 [facility] Potassium [Moles/Vol] 3.8 mmol/L 3.5-5.1 [facility] Sodium [Moles/Vol] 139 mmol/L 136-145 [facility] WBC (Bld) [#/Vol] 7.7 10*3/uL 4.4-11.0 [facility] Determination of erythrocyte mean corpuscular volume (MCV)Ordered By: Hiren Mcintyre on 12-07-2023 MCV (RBC) [Entitic vol] 88.4 fL 80-94 [facility] Erythrocyte distribution wid th ratioOrdered By: Hiren Mcintyre on 12-07-2023 Erythrocyte distribution width (RBC) [Ratio] 13.4 % 11.6-14.6 [facility] Erythrocyte distribution wid th standard deviationOrdered By: Hiren Mcintyre on 12-07-2023 Erythrocyte distribution width (RBC) [Entitic vol] 43.3 fL 35.1-43.9 [facility] Hematocrit Auto (Bld) [Volum e fraction]Ordered By: Hiren Mcintyre on 12-07-2023 Hematocrit (Bld) [Volume fraction] 49.6 % 40-54 [facility] Immature granulocytes/100 WB C Auto (Bld)Ordered By: Hiren Mcintyre on 12-07-2023 Immature granulocytes/100 WBC (Bld) 0.300 % 0.0-0.9 [facility] Comment on above: IG% - Immature Granu locytes (promyelocytes, myelocytes and metamyelocytes) > 1% indicates that a LEFT SHIFT is Present. Laboratory - Chemistry and C hemistry - challengeOrdered By: Hiren Mcintyre on 12-07-2023 CO2 [Moles/Vol] 28.0 mmol/L 21.0-32.0 [facility] Urea nitrogen/Creatinine [Mass ratio] 15.2 mg/mg 10-20 [facility] Laboratory - Hematology and Cell countsOrdered By: Hiren Mcintyre on 12-07-2023 MCH (RBC) [Entitic mass] 28.3 pg 27.0-32.0 [facility] MCHC (RBC) [Mass/Vol] 32.1 g/dL 32-36 [facility] Nucleated RBC/100 WBC (Bld) [Ratio] 0 % 0-5 [facility] Platelet mean volume (Bld) [Entitic vol] 10.9 fL 6.2-12.0 [facility] Platelets (Bld) [#/Vol] 164 10*3/uL 150-450 [facility] No Panel InformationOrdered By: Hiren Mcintyre on 12-07-2023 Estimated Creatinine Clearance Calc 53.30 ml/min [facility] Estimated GFR (MDRD) Amer 67 mL/min >60 [facility] Comment on above: GFR Calc Estimated GFR (MDRD) Non-Af Amer 55 mL/min >60 [facility] Comment on above: Non- GFR Calc RBC Auto (Bld) [#/Vol]Ordere d By: Hiren Mcintyre on 12-07-2023 RBC (Bld) [#/Vol] 5.61 10*6/uL 4.6-6.2 [facility] Serum or plasma calcium aric urement (mass/volume)Ordered By: Hiren Mcintyre on 12-07-2023 Calcium [Mass/Vol] 8.6 mg/dL 8.5-10.1 [facility] Serum or plasma creatinine m easurement (mass/volume)Ordered By: Hiren Mcintyre on 12-07-2023 Creatinine [Mass/Vol] 1.32 mg/dL 0.70-1.30 [facility] Comment on above: The validity of the calculated GFR & GFRAA in patients over 70 years has not been determined. Clinical correlation is essential. Serum or plasma urea nitroge n measurement (mass/volume)Ordered By: Hiren Mcintyre on 12-07-2023 Urea nitrogen [Mass/Vol] 20 mg/dL 7-18 [facility] Thin prep Papanicolaou smear with manual screeningOrdered By: Hiren Mcintyre on 12-07-2023 Thin prep Papanicolaou smear with manual screening 3 5-15 [facility] Basophil percentageOrdered B y: Jazlyn Zayas on 09-10-2023 Potassium [Moles/Vol] 4.6 mmol/L 3.5-5.1 [facility] Basic metabolic 1998 panelon 12-25-2022 Anion gap [Moles/Vol] 5 mmol/L 3 - 13 mmol/L [facility] Calcium [Mass/Vol] 7.8 mg/dL Low 8.4 - 10. 4 mg/dL [facility] Chloride [Moles/Vol] 102 mmol/L 98 - 10 7 mmol/L [facility] CO2 [Moles/Vol] 28 mmol/L 22 - 30 mmol/L [facility] Creatinine [Mass/Vol] 1.55 mg/dL High 0.66 - 1.25 mg/dL [facility] GFR/1.73 sq M.predicted MDRD (S/P/Bld) [Vol rate/Area] 44.7 mL/min/{1.73_m2} Low - PINF [facility] Comment on above: Calculation based on the Chronic Kidney Disease Epidemiology Collaboration (CKD-EPI) equation refit without adjustment for race Glucose [Mass/Vol] 157 mg/dL High 70 - 100 mg/dL [facility] Interpretation and review of laboratory results Abnormal [facility] Potassium [Moles/Vol] 3.4 mmol/L Low 3.5 - 5.1 mmol/L [facility] Sodium [Moles/Vol] 134 mmol/L Low 135 - 145 mmol/L [facility] Urea nitrogen [Mass/Vol] 36 mg/dL High 9 - 20 mg/dL [facility] CBC panel Auto (Bld)on 12-25 Erythrocyte distribution width (RBC) [Ratio] 13.9 % 11.5 - 14.5 % [facility] Hematocrit (Bld) [Volume fraction] 35.1 % Low 40.0 - 52.0 % [facility] Hemoglobin (Bld) [Mass/Vol] 11.9 g/dL Low 13.0 - 18.0 g/dL [facility] Interpretation and review of laboratory results Abnormal [facility] MCH (RBC) [Entitic mass] 29.5 pg 26.0 - 34.0 pg [facility] MCHC (RBC) [Mass/Vol] 33.9 % 32.0 - 36.0 % [facility] MCV (RBC) [Entitic vol] 87.1 fL 80.0 - 98.0 fL [facility] Platelet mean volume (Bld) [Entitic vol] 8.8 fL 7.4 - 12.4 fL [facility] Platelets (Bld) [#/Vol] 166 10*3/uL 140 - 440 10*3/uL [facility] RBC (Bld) [#/Vol] 4.03 10*6/uL Low 4.40 - 5.90 10*6/uL [facility] WBC (Bld) [#/Vol] 8.0 10*3/uL 3.6 - 10.7 10*3/uL [facility] Laboratory - Chemistry and C hemistry - challengeon 12-25-2022 Glucose [Mass/Vol] 134 mg/dL High 70 - 100 mg/dL [facility] Magnesium [Mass/Vol] 2.3 mg/dL 1.6 - 2 .3 mg/dL [facility] Magnesium [Mass/Vol]on 12-25 Interpretation and review of laboratory results Normal [facility] No Panel Informationon 12-25 Interpretation and review of laboratory results Abnormal [facility] Performed by: [facility], [address] [place] [address] CLIA ID: [id number] [facility] XR Chest Single viewon 12-25 1. Lines/ tubes/ dev ices: Sternotomy wires and mediastinal clips. Chest leads overlie the thorax. 2. Lungs and Pleura: Minimal left basilar atelectasis. No interval consolidation. No pneumothorax or pleural effusion. 3. Heart and mediastinum: Mild cardiomegaly, unchanged. 4. Bones: Thoracic degenerative spondylosis. Report Dictated on Electronically Signed By: Gopi Howell Electronically Signed Date/Time: 12/25/2022 6:58 AM [facility] RAD[facility]OLOGY [facility] Patient Name: [facility]ES[facility] ALBERTO [facility]VAR[facility] 1940 [id number] Exam Date/Time: 12/25/2022 05:37 Procedure: XR CHEST 1 VIEW Ordering Provider: EMERSON MATTHEW Reason For Exam: Shortness of breath PORTABLE CHEST CLINICAL INDICATION: Dyspnea. COMPARISON: 12/24/2022. TECHNIQUE: A single frontal view of thorax was obtained and reviewed. [facility] Gopi Howell DO - 12/25/2022 Patient Name: JESUS ALBERTO [facility]UEVARA [facility] 1940 [id number] Exam Date/Time: 12/25/2022 05:37 Procedure: XR CHEST [...] Electronically Signed Date/Time: 12/25/2022 6:58 AM EDT [facility] Radiology Study observation (narrative) [facility] Basic metabolic 1998 panelon 12-24-2022 Anion gap [Moles/Vol] 1 mmol/L Low 3 - 13 mmol/L [facility] Calcium [Mass/Vol] 7.9 mg/dL Low 8.4 - 10. 4 mg/dL [facility] Chloride [Moles/Vol] 102 mmol/L 98 - 10 7 mmol/L [facility] CO2 [Moles/Vol] 30 mmol/L 22 - 30 mmol/L [facility] Creatinine [Mass/Vol] 1.47 mg/dL High 0.66 - 1.25 mg/dL [facility] GFR/1.73 sq M.predicted MDRD (S/P/Bld) [Vol rate/Area] 47.6 mL/min/{1.73_m2} Low - PINF [facility] Comment on above: Calculation based on the Chronic Kidney Disease Epidemiology Collaboration (CKD-EPI) equation refit without adjustment for race Glucose [Mass/Vol] 121 mg/dL High 70 - 100 mg/dL [facility] Potassium [Moles/Vol] 3.8 mmol/L 3.5 - 5.1 mmol/L [facility] Sodium [Moles/Vol] 134 mmol/L Low 135 - 145 mmol/L [facility] Urea nitrogen [Mass/Vol] 32 mg/dL High 9 - 20 mg/dL [facility] CBC panel Auto (Bld)on 12-24 Erythrocyte distribution width (RBC) [Ratio] 13.8 % 11.5 - 14.5 % [facility] Hematocrit (Bld) [Volume fraction] 33.1 % Low 40.0 - 52.0 % [facility] Hemoglobin (Bld) [Mass/Vol] 11.3 g/dL Low 13.0 - 18.0 g/dL [facility] Interpretation and review of laboratory results Abnormal [facility] MCH (RBC) [Entitic mass] 29.6 pg 26.0 - 34.0 pg [facility] MCHC (RBC) [Mass/Vol] 34.2 % 32.0 - 36.0 % [facility] MCV (RBC) [Entitic vol] 86.5 fL 80.0 - 98.0 fL [facility] Platelet mean volume (Bld) [Entitic vol] 9.1 fL 7.4 - 12.4 fL [facility] Platelets (Bld) [#/Vol] 171 10*3/uL 140 - 440 10*3/uL [facility] RBC (Bld) [#/Vol] 3.82 10*6/uL Low 4.40 - 5.90 10*6/uL [facility] WBC (Bld) [#/Vol] 10.3 10*3/uL 3.6 - 10.7 10*3/uL [facility] Calcium.ionized [Moles/Vol]o n 12-24-2022 Calcium.ionized (Bld) [Moles/Vol] 4.00 mg/dL Low 4.30 - 5.20 mg/dL [facility] Interpretation and review of laboratory results Abnormal [facility] PH, IONIZED CALCIUM 7.44 7.31 - 7.46 [facility] Laboratory - Chemistry and C hemistry - challengeon 12-24-2022 Glucose [Mass/Vol] 104 mg/dL High 70 - 100 mg/dL [facility] Magnesium [Mass/Vol] 2.4 mg/dL High 1.6 - 2 .3 mg/dL [facility] No Panel Informationon 12-24 P [place] 26 degrees [facility] LA Interval 183 ms [facility] QRS [place] -1 degrees [facility] QRSD Interval 101 ms [facility] QT Interval 404 ms [facility] QTC Interval 432 ms [facility] T Wave [place] 20 degrees [facility] Sinus rhythm Probable left atrial enlargement Inferior infarct, old Poor R wave progression Compared to ECG 12/22/2022 05:36:24 No significant changes Electronically Signed On 12-24-2022 20:40:56 EDT by Shiloh Hannah MD - 12/24/2022 IMPRESSION: Sinus rhythm Probable left atrial enlargement Inferior infarct, old Poor R wave progression Compared to ECG 12/22/2022 05:36:24 No significant changes Electronically Signed On 12-24-2022 20:40:56 EDT by Shiloh Toscano [facility] Interpretation and review of laboratory results Abnormal [facility] Performed by: [facility], [address] [place] [address] CLIA ID: [id number] [facility] Blood Expiration Date S [facility] Blood Expiration Date S [facility] Crossmatch interpretation COMP [facility] Dispense Status Released from [place] [facility] Product Blood Type 6200 [facility] PRODUCT CODE [id number] [facility] Unit ABO A [facility] Unit Number [id number] [facility] alth Unit Number [id number] [facility] Unit RH Positive [facility] Unit Volume 300 mL [facility] Interpretation and review of laboratory results Abnormal [facility] Vital signson 12-24-2022 Heart rate 69 /min bpm [facility] XR Chest Single viewon 12-24 See findings. Report Dictated on Electronically Signed By: Pineda Gonsales Electronically Signed Date/Time: 12/24/2022 7:03 AM EDT [facility] Patient Name: JESUS ALBERTO GUEVARA [...] pneumothorax. Osseous structures: No acute osseous abnormality. [facility] Pineda Gonsales MD - 12/24/2022 Patient Name: JESUS ALBERTO GUEVARA [facility] 1940 [id number] Exam Date/Time: 12/24/2022 05:46 Procedure: XR CHEST [...] Electronically Signed Date/Time: 12/24/2022 7:03 AM EDT [facility] Radiology Study observation (narrative) [facility] [id number] 12-23-2022 [id number] Called to see for IV infiltration. Left forarm IV intact, slight swelling noted above IV site, area is soft, non tender, non blanching, no temperature change, strong distal pulses noted. RN states Tylenol infusion and calcium. Grade 2. RN notified to elevate and place warm compress. IV removed , catheter intact. Patient in NAD. . Normal [facility] Basic metabolic 1998 panelon 12-23-2022 Anion gap [Moles/Vol] 4 mmol/L 3 - 13 mmol/L [facility] Calcium [Mass/Vol] 7.9 mg/dL Low 8.4 - 10. 4 mg/dL [facility] Chloride [Moles/Vol] 103 mmol/L 98 - 10 7 mmol/L [facility] CO2 [Moles/Vol] 27 mmol/L 22 - 30 mmol/L [facility] Creatinine [Mass/Vol] 1.49 mg/dL High 0.66 - 1.25 mg/dL [facility] GFR/1.73 sq M.predicted MDRD (S/P/Bld) [Vol rate/Area] 46.9 mL/min/{1.73_m2} Low - PINF [facility] Comment on above: Calculation based on the Chronic Kidney Disease Epidemiology Collaboration (CKD-EPI) equation refit without adjustment for race Glucose [Mass/Vol] 119 mg/dL High 70 - 100 mg/dL [facility] Interpretation and review of laboratory results Abnormal [facility] Potassium [Moles/Vol] 4.0 mmol/L 3.5 - 5.1 mmol/L [facility] Sodium [Moles/Vol] 134 mmol/L Low 135 - 145 mmol/L [facility] Urea nitrogen [Mass/Vol] 25 mg/dL High 9 - 20 mg/dL [facility] CBC panel Auto (Bld)Ordered By: Olamide De La Garza on 12-23-2022 Erythrocyte distribution width (RBC) [Ratio] 14.1 % 11.5 - 14.5 % [facility] Hematocrit (Bld) [Volume fraction] 33.4 % Low 40.0 - 52.0 % [facility] Hemoglobin (Bld) [Mass/Vol] 11.1 g/dL Low 13.0 - 18.0 g/dL [facility] MCH (RBC) [Entitic mass] 29.2 pg 26.0 - 34.0 pg [facility] MCHC (RBC) [Mass/Vol] 33.3 % 32.0 - 36.0 % [facility] MCV (RBC) [Entitic vol] 87.9 fL 80.0 - 98.0 fL [facility] Platelet mean volume (Bld) [Entitic vol] 9.3 fL 7.4 - 12.4 fL [facility] Platelets (Bld) [#/Vol] 133 10*3/uL Low 140 - 440 10*3/uL [facility] RBC (Bld) [#/Vol] 3.80 10*6/uL Low 4.40 - 5.90 10*6/uL [facility] WBC (Bld) [#/Vol] 11.3 10*3/uL High 3.6 - 10.7 10*3/uL [facility] Calcium.ionized [Moles/Vol]O rdered By: Andrea Matthews on 12-23-2022 Calcium.ionized (Bld) [Moles/Vol] 4.10 mg/dL Low 4.30 - 5.20 mg/dL [facility] Interpretation and review of laboratory results Abnormal [facility] PH, IONIZED CALCIUM 7.35 7.31 - 7.46 [facility] ECG 12-LEADon 12-23-2022 ECG 12-LEAD IMPRESSION: Sinus rhythm Probable left atrial enlargement Inferior infarct, old Electronically Signed On 12-23-2022 8:06:46 EDT by Shlioh Toscano Normal [facility] ECG 12-LEAD IMPRESSION: Sinus rhythm Probable left atrial enlargement Inferior infarct, old Anterior infarct, old Normal [facility] Laboratory - Chemistry and C hemistry - challengeon 12-23-2022 Magnesium [Mass/Vol] 2.2 mg/dL 1.6 - 2 .3 mg/dL [facility] Laboratory - Coagulationon 0 12-23-2022 aPTT Coag (PPP) [Time] 30.8 s High 20.0 - 30.5 s [facility] INR Coag (PPP) [Relative time] 1.0 {INR} 0.9 - 1.1 [facility] Comment on above: Recommended Anticoag ulant Therapy: [...] 11.1 s 9.0 - 1 2.0 s [facility] Magnesium [Mass/Vol]on 12-23 Interpretation and review of laboratory results Normal [facility] No Panel InformationOrdered By: Shiloh Toscano on 12-23-2022 P [place] 29 degrees [facility] Work Phone: LA Interval 185 ms [facility] Work Phone: QRS [place] 1 degrees [facility] Work Phone: QRSD Interval 96 ms [facility] Work Phone: QT Interval 375 ms [facility] Work Phone: QTC Interval 421 ms [facility] Work Phone: T Wave [place] 2 degrees [facility] Work Phone: [facility] Work Phone: No Panel Informationon 12-23 Sinus rhythm Probable left atrial enlargement Inferior infarct, old Electronically Signed On 12-23-2022 8:06:46 EDT by Shiloh Hannah MD - 12/23/2022 IMPRESSION: Sinus rhythm Probable left atrial enlargement Inferior infarct, old Electronically Signed On 12-23-2022 8:06:46 EDT by Shiloh Toscano [facility] Interpretation and review of laboratory results Abnormal [facility] Vital signsOrdered By: Shiloh Toscano on 12-23-2022 Heart rate 76 /min bpm [facility] Work Phone: XR ABDOMEN 1 VIEWon 12-24-19 XR [...] Electronically Signed Date/Time: 12/23/2022 8:38 AM EDT [facility] XR Abdomen Single viewon No acute abnormality identified. Nonspecific gaseous distention of the colon and a couple loops of small bowel. Report Dictated on Electronically Signed By: Shine Obregon Electronically Signed Date/Time: 12/23/2022 8:38 AM EDT [facility] Patient Name: JESUS ALBERTO GUEVARA : [...] evident. Brachytherapy seeds project over the pelvis. [facility] Shine Obregon MD - 12/23/2022 Patient Name: [...] Electronically Signed Date/Time: 12/23/2022 8:38 AM EDT [facility] Study observation (narrative) [facility] XR Abdomen Single viewOrdere d By: Shine Obregon on 12-23-2022 [facility] Work Phone: XR CHEST 1 VIEWon 12-23-2022 XR CHEST 1 VIEW Patient Name: JESUS ALBERTO GUEVARA : 1940 [facility]#: [id number] Exam Date/Time: 12/23/2022 05:30 Procedure: XR CHEST [...] Bones: Thoracic degenerative spondylosis. Report Dictated on Workstation: [id number] Electronically Signed By: Gopi Howell Electronically Signed Date/Time: 12/23/2022 8:14 AM EDT [facility] XR Chest Single viewon 12-23 1. Lines/ tubes/ dev ices: Sternotomy wires and mediastinal clips. Chest leads overlie the thorax. 2. Lungs and Pleura: Left lower lobe hazy density is slightly improved. Left lower lobe infiltrate or atelectasis is redemonstrated. No pneumothorax or pleural effusion. 3. Heart and mediastinum: Mild cardiomegaly, unchanged. 4. Bones: Thoracic degenerative spondylosis. Report Dictated on Workstation: [id number] Electronically Signed By: Gopi Howell Electronically Signed Date/Time: 12/23/2022 8:14 AM EDT [facility] Patient Name: JESUS ALBERTO GUEVARA : 1940 Exam Date/Time: 12/23/2022 05:30 Procedure: XR CHEST 1 VIEW Ordering Provider: EMERSON MATTHEW Reason For Exam: Shortness of breath PORTABLE CHEST CLINICAL INDICATION: Dyspnea. COMPARISON: 12/22/2022. TECHNIQUE: A single frontal view of thorax was obtained and reviewed. [facility] Gopi Howell DO - 12/23/2022 Patient Name: JESUS ALBERTO GUEVARA : 1940 Exam Date/Time: 12/23/2022 05:30 Procedure: XR CHEST [...] Electronically Signed Date/Time: 12/23/2022 8:14 AM EDT [facility] Radiology Study observation (narrative) [facility] XR Chest Single viewOrdered By: Gopi Howell on 12-23-2022 [facility] Work Phone: Basic metabolic 1998 panelon 12-22-2022 Anion gap [Moles/Vol] 6 mmol/L 3 - 13 mmol/L [facility] Calcium [Mass/Vol] 8.0 mg/dL Low 8.4 - 10. 4 mg/dL [facility] Chloride [Moles/Vol] 107 mmol/L 98 - 10 7 mmol/L [facility] CO2 [Moles/Vol] 22 mmol/L 22 - 30 mmol/L [facility] Creatinine [Mass/Vol] 1.36 mg/dL High 0.66 - 1.25 mg/dL [facility] GFR/1.73 sq M.predicted MDRD (S/P/Bld) [Vol rate/Area] 52.3 mL/min/{1.73_m2} Low - PINF [facility] Comment on above: Calculation based on the Chronic Kidney Disease Epidemiology Collaboration (CKD-EPI) equation refit without adjustment for race Glucose [Mass/Vol] 125 mg/dL High 70 - 100 mg/dL [facility] Potassium [Moles/Vol] 4.2 mmol/L 3.5 - 5.1 mmol/L [facility] Sodium [Moles/Vol] 134 mmol/L Low 135 - 145 mmol/L [facility] Urea nitrogen [Mass/Vol] 23 mg/dL High 9 - 20 mg/dL [facility] CBC panel Auto (Bld)Ordered By: Matt Draper on 12-22-2022 Erythrocyte distribution width (RBC) [Ratio] 14.4 % 11.5 - 14.5 % [facility] Hematocrit (Bld) [Volume fraction] 32.1 % Low 40.0 - 52.0 % [facility] Hemoglobin (Bld) [Mass/Vol] 10.8 g/dL Low 13.0 - 18.0 g/dL [facility] Interpretation and review of laboratory results Abnormal [facility] MCH (RBC) [Entitic mass] 29.4 pg 26.0 - 34.0 pg [facility] MCHC (RBC) [Mass/Vol] 33.6 % 32.0 - 36.0 % [facility] MCV (RBC) [Entitic vol] 87.5 fL 80.0 - 98.0 fL [facility] Platelet mean volume (Bld) [Entitic vol] 8.7 fL 7.4 - 12.4 fL [facility] Platelets (Bld) [#/Vol] 107 10*3/uL Low 140 - 440 10*3/uL [facility] RBC (Bld) [#/Vol] 3.67 10*6/uL Low 4.40 - 5.90 10*6/uL [facility] WBC (Bld) [#/Vol] 11.6 10*3/uL High 3.6 - 10.7 10*3/uL [facility] Laboratory - Chemistry and C hemistry - challengeon 12-22-2022 Glucose [Mass/Vol] 145 mg/dL High 70 - 100 mg/dL [facility] Glucose [Mass/Vol] 111 mg/dL High 70 - 100 mg/dL [facility] Magnesium [Mass/Vol] 2.4 mg/dL High 1.6 - 2 .3 mg/dL [facility] - Coagulationon 0 12-22-2022 aPTT Coag (PPP) [Time] 31.3 s High 20.0 - 30.5 s [facility] INR Coag (PPP) [Relative time] 1.1 {INR} 0.9 - 1.1 [facility] Comment on above: Recommended Anticoag ulant Therapy: [...] 11.9 s 9.0 - 1 2.0 s [facility] No Panel Informationon 12-22 Interpretation and review of laboratory results Abnormal [facility]: [facility], [address] [place], [place] [id number] CLIA ID: [id number] [facility] Interpretation and review of laboratory results Abnormal [facility] Performed by: [facility], [address] [place] [address] CIARRAIA ID: [id number] [facility] Interpretation and review of laboratory results Abnormal [facility] Interpretation and review of laboratory results Abnormal [facility] Progress Noteon 12-22-2022 Progress Note [...] (98.2 ?F) (Oral) Resp 18 Ht 5' 11" (1.803 m) Wt 232 lb 2.3 oz [...] Jr. : 1940 AGE: 82 y.o. [facility] Admission Date: 12/18/2022 Visit Date: 12/22/2022 Reason for Endocrine Consult: post op heart Provider/Team Requesting Consult: CTS PCP: JAZLYN ZAYAS, DO Outpt Director Prison: No ASSESSMENT: Stress hyperglycemia Cabg CAD/HTN/HLD KASSANDRA [...] No noted hx of diabetes noted Bgl [phone] Feels good Pain is better Eating well [...] OR tr (more content not included)... Normal [facility] Progress Note [facility] [address] [place], [place] [id number] Progress Note Assessment: Jesus Alberto Guevara Jr. is a 82 y.o. male with PMH including HTN, HLD, TIA, who presented from [facility] due to positive stress test with inferior [...] (Temporal) Resp 20 Ht 1.803 m (5' 11") Wt 105 kg (232 lb 2.3 oz) [...] Line: No components found for: CBLOODLN Normal [facility] Progress Note ----- ----- Attestation signed by Octavia Wesley MD at 12/22/2022 11:04 AM I have personally performed a pioc-mm-tdio diagnostic evaluation on this patient on date of service 12/22/22. History, labs, imaging studies, and electronic medical record have been reviewed by me. 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 Today he was transferred from [facility] due to a positive stress test with inferior WMA, EKG changes, t-wave inversions in the inferior leads. 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 His EF was 75% on LV gram and during the stress test was measured at 65% - Normal LVEDP. He does have CKD baseline creat of 1.42. Other labs are unremarkable. He did not get loaded with P2Y12 therapy at [facility], he is on BB, asa, statin and [...] on tele, BP stable, on 3L NC. [place] and art line removed yesterday. Creatinine trending [...] Status: Te (more content not included)... Normal [facility] XR CHEST 1 VIEWon 12-22-2022 XR CHEST [...] Electronically Signed Date/Time: 12/22/2022 9:31 AM EDT Normal [facility] XR Chest Single viewon 12-22 See findings. Report Dictated on Electronically Signed By: Pineda Gonsales Electronically Signed Date/Time: 12/22/2022 9:31 AM EDT [facility] Patient Name: JESUS ALBERTO GUEVARA : [...] pneumothorax. Osseous structures: No acute osseous abnormality. [facility] Pineda Gonsales MD - 12/22/2022 Patient [...] Electronically Signed Date/Time: 12/22/2022 9:31 AM EDT [facility] Radiology Study observation (narrative) [facility] XR Chest Single viewOrdered By: Pineda Gonsales on 12-22-2022 [facility] Work Phone: Basic metabolic 1998 panelon 12-21-2022 Anion gap [Moles/Vol] 9 mmol/L 3 - 13 mmol/L [facility] Calcium [Mass/Vol] 7.9 mg/dL Low 8.4 - 10. 4 mg/dL [facility] Chloride [Moles/Vol] 110 mmol/L High 98 - 10 7 mmol/L [facility] CO2 [Moles/Vol] 18 mmol/L Low 22 - 30 mmol/L [facility] Creatinine [Mass/Vol] 1.57 mg/dL High 0.66 - 1.25 mg/dL [facility] GFR/1.73 sq M.predicted MDRD (S/P/Bld) [Vol rate/Area] 44.0 mL/min/{1.73_m2} Low - PINF [facility] Comment on above: Calculation based on the Chronic Kidney Disease Epidemiology Collaboration (CKD-EPI) equation refit without adjustment for race Glucose [Mass/Vol] 125 mg/dL High 70 - 100 mg/dL [facility] Potassium [Moles/Vol] 4.6 mmol/L 3.5 - 5.1 mmol/L [facility] Sodium [Moles/Vol] 137 mmol/L 135 - 145 mmol/L [facility] Urea nitrogen [Mass/Vol] 22 mg/dL High 9 - 20 mg/dL [facility] CBC panel Auto (Bld)Ordered By: Dave Long on 12-21-2022 Erythrocyte distribution width (RBC) [Ratio] 13.7 % 11.5 - 14.5 % [facility] Hematocrit (Bld) [Volume fraction] 31.4 % Low 40.0 - 52.0 % [facility] Hemoglobin (Bld) [Mass/Vol] 10.8 g/dL Low 13.0 - 18.0 g/dL [facility] Interpretation and review of laboratory results Abnormal [facility] MCH (RBC) [Entitic mass] 29.7 pg 26.0 - 34.0 pg [facility] MCHC (RBC) [Mass/Vol] 34.2 % 32.0 - 36.0 % [facility] MCV (RBC) [Entitic vol] 86.8 fL 80.0 - 98.0 fL [facility] Platelet mean volume (Bld) [Entitic vol] 8.5 fL 7.4 - 12.4 fL [facility] Platelets (Bld) [#/Vol] 103 10*3/uL Low 140 - 440 10*3/uL [facility] RBC (Bld) [#/Vol] 3.62 10*6/uL Low 4.40 - 5.90 10*6/uL [facility] WBC (Bld) [#/Vol] 10.3 10*3/uL 3.6 - 10.7 10*3/uL [facility] Calcium.ionized [Moles/Vol]O rdered By: Felix Smallwood on 12-21-2022 Calcium.ionized (Bld) [Moles/Vol] 3.50 mg/dL Low 4.30 - 5.20 mg/dL [facility] Interpretation and review of laboratory results Abnormal [facility] PH, IONIZED CALCIUM 7.44 7.31 - 7.46 [facility] ECG 12-LEADon 12-21-2022 ECG 12-LEAD IMPRESSION: Sinus rhythm Electronically Signed On 12-21-2022 10:36:38 EDT by Coleman Rosales Normal [facility] ED Nursing Noteon 12-21-2022 ED Nursing Note EE: Planned CABG 12/20 Normal [facility] Laboratory - Chemistry and C hemistry - challengeon 12-21-2022 Glucose [Mass/Vol] 114 mg/dL High 70 - 100 mg/dL [facility] Glucose [Mass/Vol] 119 mg/dL High 70 - 100 mg/dL [facility] Glucose [Mass/Vol] 125 mg/dL High 70 - 100 mg/dL [facility] Glucose [Mass/Vol] 142 mg/dL High 70 - 100 mg/dL [facility] Glucose [Mass/Vol] 109 mg/dL High 70 - 100 mg/dL [facility] Magnesium [Mass/Vol] 2.4 mg/dL High 1.6 - 2 .3 mg/dL [facility] Glucose [Mass/Vol] 133 mg/dL High 70 - 100 mg/dL [facility] - Coagulationon 0 12-21-2022 aPTT Coag (PPP) [Time] 31.6 s High 20.0 - 30.5 s [facility] INR Coag (PPP) [Relative time] 1.1 {INR} 0.9 - 1.1 [facility] Comment on above: Recommended Anticoag ulant Therapy: [...] 11.6 s 9.0 - 1 2.0 s [facility] No Panel Informationon 12-21 Interpretation and review of laboratory results Abnormal [facility] Performed by: [facility], [address] [place] [address] CLIA ID: [id number] [facility] Interpretation and review of laboratory results Abnormal [facility] Performed by: [facility], [address] [place] [id number] CLIA ID: [id number] [facility] Sinus rhythm Electronically Signed On 12-21-2022 10:36:38 EDT by Coleman Rosales CV Coleman Naranjo MD - 12/21/2022 IMPRESSION: Sinus rhythm Electronically Signed On 12-21-2022 10:36:38 EDT by Coleman Rosales [facility] Interpretation and review of laboratory results Abnormal [facility] Performed by: [facility], [address] [place] [address] CLIA ID: [id number] [facility] Interpretation and review of laboratory results Abnormal [facility] Performed by: [facility], [address] [place] [id number] CLIA ID: [id number] [facility] Interpretation and review of laboratory results Abnormal [facility] Performed by: [facility], [address] [place] [address] CLIA ID: [id number] [facility] Interpretation and review of laboratory results Abnormal [facility] Interpretation and review of laboratory results Abnormal [facility] Interpretation and review of laboratory results Abnormal [facility] Performed by: [facility], [address] [place] [address] CLIA ID: [id number] [facility] Panel InformationOrdered By: Coleman Rosales on 12-21-2022 P [place] 25 degrees [facility] Work Phone: LA Interval 207 ms [facility] Work Phone: QRS [place] 63 degrees [facility] Work Phone: QRSD Interval 94 ms [facility] Work Phone: QT Interval 375 ms [facility] Work Phone: QTC Interval 427 ms [facility] Work Phone: T Wave [place] 36 degrees [facility] Work Phone: [facility] Work Phone: Progress Noteon 12-21-2022 Progress Note Occupational Therapy Facility/Department: [facility] Occupational Therapy Initial Evaluation NAME: Jesus Alberto Guevara JrAnne-Marie : 1940 Date of Service: 12/21/2022 Discharge [...] Prognosis: Good Decision Making: Low Complexity Exam: [facility] Activity Tolerance Activity Tolerance: Patient limited by fatigue, Patient limited by pain Patient Diagnosis(es): The encounter diagnosis was CAD in [place] artery. 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 General Comments Comments: R hand dominant Patient Stated Goal: to go home Pain Assessment Pain Assessment: 0-10 Pain Score: 9 Pain Type: Acute pain Pain Location: Incision, Sternum Pain Orientation: Mid Pain Descriptors: Aching, Discomfort Pain Interventions: Repositioned, Ambulation/increased activity Social/Functional History Social/Functional History Lives With: Spouse Type of Home: (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 Normal [facility] Progress Note [facility] [address] [place] [address] Progress Note Assessment: Jesus Alberto Guevara is a 82 y.o. male with PMH including HTN, HLD, TIA, who presented from [facility] due to positive stress test with inferior [...] (Temporal) Resp 22 Ht 1.803 m (5' 11") Wt 105 kg (232 lb 2.3 oz) [...] Line: No components found for: CBLOODLN Normal [facility] Progress Note Physical Therapy Facility/Department: U [...] Diagnosis(es): The encounter diagnosis was CAD in [place] artery. has no past medical history on [...] 500 m (more content not included)... Normal [facility] Progress Note ----- ----- Attestation signed by [...] (97.9 ?F) (Temporal) Resp 22 Ht 5' 11" (1.803 m) Wt 232 lb 2.3 oz [...] Jr. : 1940 AGE: 82 y.o. Room/Bed: T1-111/T1-111 A Admission Date: 12/18/2022 Visit Date: 12/21/2022 Reason for Endocrine Consult: post op heart Provider/Team Requesting Consult: CTS PCP: JAZLYN ZAYAS, DO Outpt Director Prison: No ASSESSMENT: Stress hyperglycemia Cabg CAD/HTN/HLD KASSANDRA [...] SpO2: 97% 97% 96% Weight: Height: 5' 11" (1.803 m) PF: Physical Exam Vitals and [...] intake/output: Intake/Output Summary (Last 24 hours) at 12/21/2022943 Last data filed at 12/21/2022 09 Gross [...] PRN Med (more content not included)... Normal [facility] Progress Note ----- ----- Attestation signed by Octavia Wesley MD at 12/21/2022 9:19 AM (Updated) I have personally performed a lszn-qw-fiaz diagnostic evaluation on this patient on date of service 12/21/22. History, labs, imaging studies, and electronic medical record have been reviewed by me. 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 Today he was transferred from [facility] due to a positive stress test with inferior WMA, EKG changes, t-wave inversions in the inferior leads. 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 His EF was 75% on LV gram and during the stress test was measured at 65% - Normal LVEDP. He does have CKD baseline creat of 1.42. Other labs are unremarkable. He did not get loaded with P2Y12 therapy at [facility], he is on BB, asa, statin and [...] []Yes [x] (more content not included)... Normal [facility] Vital signsOrdered By: Coleman Rosales on 12-21-2022 Heart rate 78 /min bpm [facility] Work Phone: XR CHEST 1 VIEWon 12-21-2022 [...] Electronically Signed Date/Time: 12/21/2022 8:51 AM EDT [facility] XR Chest Single viewon 12-21 1. Bibasilar atelectasis. No pneumothorax seen. Report Dictated on Electronically Signed By: Yosef Rod Electronically Signed Date/Time: 12/21/2022 10:41 PM EDT [facility] Patient Name: JESUS ALBERTO GUEVARA : [...] history. Bibasilar atelectasis noted. No pneumothorax seen. [facility] Yosef Rod MD - 12/21/2022 Patient [...] Electronically Signed Date/Time: 12/21/2022 10:41 PM EDT [facility] Rad[facility] Study observation (narrative) [facility] Small bilateral pleu ral effusions and consolidation in the left lung base. Report Dictated on Electronically Signed By: Jen Mandujano Electronically Signed Date/Time: 12/21/2022 8:51 AM EDT [facility] Patient Name: [facility] 1940 [id number] Exam Date/Time: 12/21/2022 08:28 Procedure: XR CHEST [...] of the spine. Left acromioclavicular joint DJD. [facility] [employer] [facility] Jen Mandujano M D - 12/21/2022 Patient Name: JESUS ALBERTO GUEVARA : 1940 [facility]#: [id number] Exam Date/Time: 12/21/2022 08:28 Procedure: XR CHEST [...] Electronically Signed Date/Time: 12/21/2022 8:51 AM EDT [facility] Study observation (narrative) [facility] XR Chest Single viewOrdered By: Yosef Rod on 12-21-2022 [facility] Work Phone: XR Chest Single viewOrdered By: Jen Mandujano on 12-21-2022 [facility] Work Phone: ABO and Rh group Confirm Nom (Bld)on 12-20-2022 ABO group Nom (Bld) A [facility] D Ag Ql (RBC) Positive [facility] Basic metabolic 1998 panelon 12-20-2022 Anion gap [Moles/Vol] 7 mmol/L 3 - 13 mmol/L [facility] Calcium [Mass/Vol] 8.4 mg/dL 8.4 - 10. 4 mg/dL [facility] Chloride [Moles/Vol] 111 mmol/L High 98 - 10 7 mmol/L [facility] CO2 [Moles/Vol] 21 mmol/L Low 22 - 30 mmol/L [facility] Creatinine [Mass/Vol] 1.41 mg/dL High 0.66 - 1.25 mg/dL [facility] GFR/1.73 sq M.predicted MDRD (S/P/Bld) [Vol rate/Area] 50.1 mL/min/{1.73_m2} Low - PINF [facility] Comment on above: Calculation based on the Chronic Kidney Disease Epidemiology Collaboration (CKD-EPI) equation refit without adjustment for race Glucose [Mass/Vol] 128 mg/dL High 70 - 100 mg/dL [facility] Potassium [Moles/Vol] 4.5 mmol/L 3.5 - 5.1 mmol/L [facility] Sodium [Moles/Vol] 139 mmol/L 135 - 145 mmol/L [facility] Urea nitrogen [Mass/Vol] 21 mg/dL High 9 - 20 mg/dL [facility] Slightly Hemolyzed. Interpret ALKALINE PHOSPHATASE, AST, and POTASSIUM with caution. [facility] Anion gap [Moles/Vol] 2 mmol/L Low 3 - 13 mmol/L [facility] Calcium [Mass/Vol] 8.2 mg/dL Low 8.4 - 10. 4 mg/dL [facility] Chloride [Moles/Vol] 110 mmol/L High 98 - 10 7 mmol/L [facility] CO2 [Moles/Vol] 26 mmol/L 22 - 30 mmol/L [facility] Creatinine [Mass/Vol] 1.58 mg/dL High 0.66 - 1.25 mg/dL [facility] GFR/1.73 sq M.predicted MDRD (S/P/Bld) [Vol rate/Area] 43.7 mL/min/{1.73_m2} Low - PINF [facility] Comment on above: Calculation based on the Chronic Kidney Disease Epidemiology Collaboration (CKD-EPI) equation refit without adjustment for race Glucose [Mass/Vol] 93 mg/dL 70 - 100 mg/dL [facility] Interpretation and review of laboratory results Abnormal [facility] Potassium [Moles/Vol] 4.1 mmol/L 3.5 - 5.1 mmol/L [facility] Sodium [Moles/Vol] 138 mmol/L 135 - 145 mmol/L [facility] Urea nitrogen [Mass/Vol] 23 mg/dL High 9 - 20 mg/dL [facility] Blood type and Crossmatch pa bravo (Bld)on 12-20-2022 ABO group Nom (Bld) A [facility] Blood group antibody screen GEL Ql Negative [facility] D Ag Ql (RBC) Positive [facility] CBC panel Auto (Bld)Ordered By: Una Hui on 12-20-2022 Erythrocyte distribution width (RBC) [Ratio] 13.6 % 11.5 - 14.5 % [facility] Hematocrit (Bld) [Volume fraction] 31.0 % Low 40.0 - 52.0 % [facility] Hemoglobin (Bld) [Mass/Vol] 10.2 g/dL Low 13.0 - 18.0 g/dL [facility] Interpretation and review of laboratory results Abnormal [facility] MCH (RBC) [Entitic mass] 29.1 pg 26.0 - 34.0 pg [facility] MCHC (RBC) [Mass/Vol] 32.9 % 32.0 - 36.0 % [facility] MCV (RBC) [Entitic vol] 88.4 fL 80.0 - 98.0 fL [facility] Platelet mean volume (Bld) [Entitic vol] 8.0 fL 7.4 - 12.4 fL [facility] Platelets (Bld) [#/Vol] 87 10*3/uL Low 140 - 440 10*3/uL [facility] RBC (Bld) [#/Vol] 3.51 10*6/uL Low 4.40 - 5.90 10*6/uL [facility] WBC (Bld) [#/Vol] 7.3 10*3/uL 3.6 - 10.7 10*3/uL [facility] CBC panel Auto (Bld)on 12-20 Erythrocyte distribution width (RBC) [Ratio] 13.6 % 11.5 - 14.5 % [facility] Hematocrit (Bld) [Volume fraction] 42.9 % 40.0 - 52.0 % [facility] Hemoglobin (Bld) [Mass/Vol] 14.6 g/dL 13.0 - 18.0 g/dL [facility] Interpretation and review of laboratory results Normal [facility] MCH (RBC) [Entitic mass] 29.4 pg 26.0 - 34.0 pg [facility] MCHC (RBC) [Mass/Vol] 34.1 % 32.0 - 36.0 % [facility] MCV (RBC) [Entitic vol] 86.1 fL 80.0 - 98.0 fL [facility] Platelet mean volume (Bld) [Entitic vol] 8.6 fL 7.4 - 12.4 fL [facility] Platelets (Bld) [#/Vol] 154 10*3/uL 140 - 440 10*3/uL [facility] RBC (Bld) [#/Vol] 4.98 10*6/uL 4.40 - 5.90 10*6/uL [facility] WBC (Bld) [#/Vol] 7.3 10*3/uL 3.6 - 10.7 10*3/uL [facility] Calcium.ionized [Moles/Vol]o n 12-20-2022 Calcium.ionized (Bld) [Moles/Vol] 4.60 mg/dL 4.30 - 5.20 mg/dL [facility] Interpretation and review of laboratory results Normal [facility] PH, IONIZED CALCIUM 7.32 7.31 - 7.46 [facility] Consulton 12-20-2022 Consult ----- ----- [...] initiated on insulin drip. No pressors. Noted [facility] results. EF 72%. No family available. Lab Results Component Value Date HGBA1C 5.4 12/18/2022 Lab Results Component Value Date GLUCOSE 128 (H) 12/20/2022 CALCIUM 8.4 12/20/2022 NA 139 12/20/2022 K 4.5 12/20/2022 CO2 21 (L) 12/20/2022 CL 111 (H) 12/20/2022 BUN 21 (H) 12/20/2022 CREATININE 1.41 (H) 12/20/2022 BP (!) 146/99 Pulse 87 Temp 37.1 ?C (98.8 ?F) Resp 19 Ht 5' 11" (1.803 m) Wt 225 lb (102 kg) [...] Jr. : 1940 AGE: 82 y.o. Room/Bed: T1-111/T1-111 A Admission Date: 12/18/2022 Visit Date: 12/20/2022 Reason for Endocrine Consult: post op heart Provider/Team Requesting Consult: CTS PCP: JAZLYN ZAYAS, DO Outpt Director Prison: No ASSESSMENT: Stress hyperglycemia Cabg CAD/HTN/HLD KASSANDRA [...] , Nasal, (more content not included)... Normal [facility] Consult ----- ----- Attestation signed by Octavia Wesley MD at 12/20/2022 3:48 PM I have personally performed a yvai-dp-fual diagnostic evaluation on this patient on date of service 12/20/22. History, labs, imaging studies, and electronic medical record have been reviewed by me. This note documented by the []fun house operator [x]LUCHO reflects my history, exam, and medical [...] min so far today, excluding procedures. ----- [facility]: Critical Care Consultation Note Date: 12/20/22 PATIENT NAME: Jesus Alberto Guevara Jr. 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 Today he was transferred from [facility] due to a positive stress test with inferior WMA, EKG changes, t-wave inversions in the inferior leads. 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 His EF was 75% on LV gram and during the stress test was measured at 65% - Normal LVEDP. He does have CKD baseline creat of 1.42. Other labs are unremarkable. He did not get loaded with P2Y12 therapy at [facility], he is on BB, asa, statin and [...] (98 ?F) (Temporal) Resp 18 Ht 5' 11" (1.803 m) Wt 225 lb 4.8 oz (102 kg) SpO2 93% BMI 31.42 kg/m? Intake/Output Summary (Last 24 hours) at 12/20/2022 0707 Last data filed at 12/19/20221999 Gross per 24 hour Intake 240 ml Output 300 ml Net -60 ml Physical Exam Constitutional: Interventions: He is sedated and intubated. HENT: Mouth/Throat: Comments: ET (more content not included)... [facility] Fibrinogen Coag (PPP) [Mass/ Vol]on 12-20-2022 Interpretation and review of laboratory results Normal [facility] Laboratory - Chemistry and C hemistry - challengeon 12-20-2022 Glucose [Mass/Vol] 110 mg/dL High 70 - 100 mg/dL [facility] Glucose [Mass/Vol] 114 mg/dL High 70 - 100 mg/dL [facility] Glucose [Mass/Vol] 131 mg/dL High 70 - 100 mg/dL [facility] Glucose [Mass/Vol] 138 mg/dL High 70 - 100 mg/dL [facility] Magnesium [Mass/Vol] 3.2 mg/dL High 1.6 - 2 .3 mg/dL [facility] Glucose [Mass/Vol] 125 mg/dL High 70 - 100 mg/dL [facility] Laboratory - Chemistry and C hemistry - challengeOrdered By: Holley Sommer on 12-20-2022 Base excess Calc (Bld) [Moles/Vol] -4.7000 mmol/L Low -3.0 - 3.0 mmol/L [facility] CO2 (Bld) [Partial pressure] 40.9 mm[Hg] - PINF [facility] CO2 [Moles/Vol] 22.2 mmol/L Low 23.0 - 27.0 mmol/L [facility] HCO3 (Bld) [Moles/Vol] 20.9 mmol/L Low 21.0 - 25.0 mmol/L [facility] Oxygen (Bld) [Partial pressure] 107.3 mm[Hg] High [facility] pH (Bld) 7.327 [pH] Low 7.350 - 7.450 [facility] - Coagulationon 0 12-20-2022 aPTT Coag (PPP) [Time] 32.0 s High 20.0 - 30.5 s [facility] Fibrinogen Coag (PPP) [Mass/Vol] 212 mg/dL 200 - 400 mg/dL [facility] INR Coag (PPP) [Relative time] 1.3 {INR} High 0.9 - 1.1 [facility] Comment on above: Recommended Anticoag ulant Therapy: [...] s High 9.0 - 1 2.0 s [facility] - Hematology and Cell countsOrdered By: Holley Sommer on 12-20-2022 Hemoglobin (Bld) [Mass/Vol] 10.8 g/dL Screen Only [facility] MRSA DNA RIVKA+probe Ql (Nose) on 12-20-2022 Interpretation and review of laboratory results Abnormal [facility] mecA gene Not detected Not Detected [facility] Staphylococcus aureus Detected Abnormal Not Detected [facility] Methicillin-sensitiv e Staphylococcus aureus (MSSA) present; No MRSA detected Negative nasal MRSA PCR has a high negative predictive value for MRSA pneumonia. Consider stopping Vancomycin if no other clinical indication. Positive results do not necessarily indicate active infection with MSSA. Contact Antimicrobial Stewardship for further recommendations. Staphylococcus aureus nasal screen by real-time PCR. This test was modified and its performance characteristics determined by [facility]. The U. S. Food and Drug Administration has not approved or cleared this test; however, FDA clearance or approval is not currently required for clinical use. The results are not intended to be used as the sole means for clinical diagnosis or patient management decisions. [facility] No Panel Informationon 12-20 Interpretation and review of laboratory results Abnormal [facility] Performed by: [facility], [address] [place] [id number] CLIA ID: [id number] [facility] Interpretation and review of laboratory results Abnormal [facility] Performed by: [facility], [address] [place] [id number] CLIA ID: [id number] [facility] Interpretation and review of laboratory results Abnormal [facility] Performed by: [facility], [address] [place] [id number] CLIA ID: [id number] [facility] Interpretation and review of laboratory results Abnormal [facility] Performed by: [facility], [address] [place] [address] CLIA ID: [id number] [facility] Interpretation and review of laboratory results Abnormal [facility] Interpretation and review of laboratory results Abnormal [facility] Interpretation and review of laboratory results Abnormal [facility] Performed by: [facility], [address] [place] [address] CLIA ID: [id number] [facility] No Panel InformationOrdered By: Holley Sommer on 12-20-2022 Interpretation and review of laboratory results Abnormal [facility] Source Of Oxygen Vent [facility] Phosphate [Moles/Vol]on 11-27 Interpretation and review of laboratory results Normal [facility] Phosphate [Mass/Vol] 3.1 mg/dL 2.5 - 4 .5 mg/dL [facility] Progress Noteon 12-20-2022 Progress Note TC trial started HR 85, BP 103/53, spo2 92%, f/vt 38 15 mins : HR 85, spo2 93%, tv 317, RR 27, BP 116/62, f/vt 48 30 mins HR 84, RR 17, TV 486, spo2 90%, f/vt 41, BP 128/63 Dr. Nickerson notified Normal [facility] Progress Note [facility] [address] [place] [address] Progress Note Assessment: Jesus Alberto Saldivar Paola Lopez is a 82 y.o. male with PMH including HTN, HLD, TIA, who presented from [facility] due to positive stress test with inferior [...] insulin regular, 1-50 Units/hr, Last Rate: Stopped (12/20/22 1330) lactated ringers, 250 mL norepinephrine, 0.01-3.3 mcg/kg/min propofol, 5-50 mcg/kg/min, Last Rate: Stopped (12/20/22 133) sodium chloride, 20 mL/hr, Last Rate: 20 [...] (Temporal) Resp 13 Ht 1.803 m (5' 11") Wt 102 kg (225 lb) SpO2 97% [...] Line: No components found for: CBLOODLN Normal [facility] Progress Note Nutrition rescreen completed. Patient referred to the Dietitian. KASSANDRA on CKD. Normal [facility] XR CHEST 1 VIEWon 12-20-2022 XR CHEST [...] tube tip left upper quadrant, right jugular Luverne-Mack catheter with tip in the region of the main pulmonary artery, left pleural tube and mediastinal drain, median sternotomy wires, endotracheal tube appearing in good position Report Dictated on Electronically Signed By: Jesus Alberto Guevara Electronically Signed Date/Time: 12/20/2022 1:50 PM EDT [facility] XR Chest Single viewon 12-20 Patient Name: [...] tube tip left upper quadrant, right jugular Luverne-Mack catheter with tip in the region of the main pulmonary artery, left pleural tube and mediastinal drain, median sternotomy wires, endotracheal tube appearing in good position Report Dictated on Electronically Signed By: Jesus Alberto Guevara Electronically Signed Date/Time: 12/20/2022 1:50 PM EDT [facility] Jesus Alberto Guevara MD - 12/20/2022 Patient Name: [facility]ES[facility] 1940 [id number] Exam Date/Time: 12/20/2022 13:45 Procedure: XR CHEST 1 VIEW Ordering Provider: EMERSON MATTHEW Reason For Exam: Post op open heart surgery HISTORY: Postoperative open heart surgery Portable chest compared to previous study from 12/19/2022. FINDINGS: 1. Decreased density both lung bases which may be due to small amount pleural fluid and/or atelectasis 2. Nasogastric tube tip left upper quadrant, right jugular Luverne-Mack catheter with tip in the region of the main pulmonary artery, left pleural tube and mediastinal drain, median sternotomy wires, endotracheal tube appearing in good position Report Dictated on Electronically Signed By: Jesus Alberto Guevara Electronically Signed Date/Time: 12/20/2022 1:50 PM EDT [facility] Radiology Study observation (narrative) [facility] XR Chest Single viewOrdered By: Jesus Alberto Guevara on 12-20-2022 [facility] Work Phone: Basic metabolic 1998 panelon 12-19-2022 Anion gap [Moles/Vol] 3 mmol/L 3 - 13 mmol/L [facility] Calcium [Mass/Vol] 8.0 mg/dL Low 8.4 - 10. 4 mg/dL [facility] Chloride [Moles/Vol] 109 mmol/L High 98 - 10 7 mmol/L [facility] CO2 [Moles/Vol] 24 mmol/L 22 - 30 mmol/L [facility] Creatinine [Mass/Vol] 1.29 mg/dL High 0.66 - 1.25 mg/dL [facility] GFR/1.73 sq M.predicted MDRD (S/P/Bld) [Vol rate/Area] 55.7 mL/min/{1.73_m2} Low - PINF [facility] Comment on above: Calculation based on the Chronic Kidney Disease Epidemiology Collaboration (CKD-EPI) equation refit without adjustment for race Glucose [Mass/Vol] 94 mg/dL 70 - 100 mg/dL [facility] Interpretation and review of laboratory results Abnormal [facility] Potassium [Moles/Vol] 4.3 mmol/L 3.5 - 5.1 mmol/L [facility] Sodium [Moles/Vol] 137 mmol/L 135 - 145 mmol/L [facility] Urea nitrogen [Mass/Vol] 18 mg/dL 9 - 20 mg/dL [facility] CARECOORDon 12-19-2022 [facility] Care Managment Initi co Assessment Date: 12/19/2022 Patient Name: Jesus Alberto Guevara Jr. 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 Angelia Frausto RN Normal [facility] CAREPLNon 12-19-2022 CAREPLN The patient is Moder ately Stable - Low risk of patient condition declining or worsening The patient's goals for the shift include The clinical goals for the shift include Problem: Safety Goal: Patient will be injury free during hospitalization Outcome: Progressing Goal: I will remain free of falls Outcome: Progressing Normal [facility] CBC panel Auto (Bld)on 12-19 Erythrocyte distribution width (RBC) [Ratio] 13.8 % 11.5 - 14.5 % [facility] Hematocrit (Bld) [Volume fraction] 42.8 % 40.0 - 52.0 % [facility] Hemoglobin (Bld) [Mass/Vol] 14.5 g/dL 13.0 - 18.0 g/dL [facility] Interpretation and review of laboratory results Normal [facility] MCH (RBC) [Entitic mass] 29.2 pg 26.0 - 34.0 pg [facility] MCHC (RBC) [Mass/Vol] 33.8 % 32.0 - 36.0 % [facility] MCV (RBC) [Entitic vol] 86.2 fL 80.0 - 98.0 fL [facility] Platelet mean volume (Bld) [Entitic vol] 8.3 fL 7.4 - 12.4 fL [facility] Platelets (Bld) [#/Vol] 154 10*3/uL 140 - 440 10*3/uL [facility] RBC (Bld) [#/Vol] 4.96 10*6/uL 4.40 - 5.90 10*6/uL [facility] WBC (Bld) [#/Vol] 7.4 10*3/uL 3.6 - 10.7 10*3/uL [facility] CT CHEST WO IV CONTRASTon CT CHEST WO IV CONTRAST Patient Name: JESUS ALBERTO GUEVARA : 1940 [facility]#: [id number] Exam Date/Time: 12/18/2022 21:41 Procedure: CT CHEST [...] Electronically Signed Date/Time: 12/19/2022 10:17 AM EDT [facility] CT Chest WO contraston 12-19 1. The [...] Electronically Signed Date/Time: 12/19/2022 10:17 AM EDT [facility] Patient Name: JESUS ALBERTO GUEVARA : 1940 [...] are grossly normal on this unenhanced scan. [facility] Andres Dias MD - 12/19/2022 Patient Name: JESUS ALBERTO GUEVARA : 1940 [facility]#: [id number] Exam Date/Time: 12/18/2022 21:41 Procedure: CT CHEST [...] Electronically Signed Date/Time: 12/19/2022 10:[address] [facility] [address] Chest WO contrastOrdered By: Andres Dias on 12-19-2022 [facility] Work Phone: Consulton 12-19-2022 Consult [facility] [address] [place], [place] [id number] Consult Note Patient's Name: Jesus Alberto Guevara Jr. 9:47 AM 12/19/2022 Reason for Consult: CKD History of Present Ilness: Jesus Alberto Guevara Jr. is a 82 y.o. male with PMH including HTN, HLD, TIA, who presented from [facility] due to positive stress test with inferior WMA, EKG changes, had LHC done which showed MVCAD. 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 Patient reports feeling sleepy, but denies pain, [...] (Core) Resp 16 Ht 1.803 m (5' 11") Wt 103 kg (227 lb) SpO2 96% [...] including HTN, HLD, TIA, who presented from [facility] due to positive stress test with inferior [...] as documented in his note. Please call [phone] or message me through [employer] with any questions or concerns. Normal [facility] ECG 12-LEADon 12-19-2022 ECG 12-LEAD IMPRESSION: Sinus bradycardia Nonspecific T abnormalities, lateral leads Electronically Signed On 12-19-2022 9:21:36 EDT by Nathan Alvarez [facility] No Panel InformationOrdered By: Nathan Alvarez on 12-19-2022 P [place] 48 degrees [facility] Phone: LA Interval 208 ms [facility] Work Phone: QRS [place] 36 degrees [facility] Work Phone: QRSD Interval 94 ms [facility] Work Phone: QT Interval 396 ms [facility] Work Phone: QTC Interval 388 ms [facility] Work Phone: T Wave [place] 97 degrees [employer] Phone: [facility] Phone: No Panel Informationon 12-19 Sinus bradycardia Nonspecific T abnormalities, lateral leads Electronically Signed On 12-19-2022 9:21:36 EDT by Nathan Alvarez CV Nathan Bustamante MD - 12/19/2022 IMPRESSION: Sinus bradycardia Nonspecific T abnormalities, lateral leads Electronically Signed On 12-19-2022 9:21:36 EDT by Nathan Alvarez [facility] Heart TransthoracicOrdere d By: Souleymane Coyne on 12-19-2022 AR Max Velocity PISA 4.9 m/s [facility] Work Phone: AR PHT 392.3 ms [facility] Work Phone: Ascending Aorta 3.4 cm [facility] Work Phone: Ascending Aorta Index 1.52 cm/m2 [facility] Work Phone: AV Area by Peak Velocity 2.6 cm2 [facility] Work Phone: AV Area by VTI 2.7 cm2 [facility] Work Phone: AV Mean Gradient 3 mmHg [facility] Work Phone: AV Mean Velocity 0.8 m/s [facility] Work Phone: AV Peak Gradient 6 mmHg [facility] Work Phone: AV Peak Velocity 1.2 m/s [facility] Work Phone: AV Velocity Ratio 0.83 [facility] Work Phone: AV VTI 25.1 cm [facility] Work Phone: ELOY/BSA Peak Velocity 1.2 cm2/m2 [facility] Work Phone: ELOY/BSA VTI 1.2 cm2/m2 [facility] Work Phone: E/E' Lateral 6.43 [facility] Work Phone: E/E' Ratio (Averaged) 6.96 [facility] Work Phone: E/E' Septal 7.50 [facility] Work Phone: EF BP 69 % 55 - 100 % [facility] Work Phone: Fractional Shortening 2D 33 % 28 - 44 % [facility] Work Phone: Interpretation and review of laboratory results Abnormal [facility] Work Phone: IVC Diameter 1.5 cm [facility] Work Phone: IVSd 1.2 cm Abnormal 0.6 - 1.0 cm [facility] Work Phone: LA Volume 2C 67 mL Abnormal 18 - 58 mL [facility] Work Phone: LA Volume 4C 51 mL 18 - 58 mL [facility] Work Phone: LA Volume A/L 63 mL [facility] Work Phone: LA Volume Index 2C 30 mL/m2 16 - 34 mL/m2 [facility] Work Phone: LA Volume Index 4C 23 mL/m2 16 - 34 mL/m2 [facility] Work Phone: LA Volume Index A/L 28 mL/m2 16 - 34 mL/m2 [facility] Work Phone: LV E' Lateral Velocity 7 cm/s [facility] Work Phone: LV E' Septal Velocity 6 cm/s [facility] Work Phone: LV EDV A2C 116 mL [facility] Work Phone: LV EDV A4C 99 mL [facility] Work Phone: LV EDV BP 108 mL 67 - 155 mL [facility] Work Phone: LV EDV Index A2C 52 mL/m2 [facility] Work Phone: LV EDV Index A4C 44 mL/m2 [facility] Work Phone: LV EDV Index BP 48 mL/m2 [facility] Work Phone: LV Ejection Fraction A2C 67 % [facility] Work Phone: LV Ejection Fraction A4C 73 % [facility] Work Phone: LV ESV A2C 38 mL [facility] Work Phone: LV ESV A4C 27 mL [facility] Work Phone: LV ESV BP 34 mL 22 - 58 mL [facility] Work Phone: LV ESV Index A2C 17 mL/m2 [facility] Work Phone: LV ESV Index A4C 12 mL/m2 [facility] Work Phone: LV ESV Index BP 15 mL/m2 [facility] Work Phone: LV Mass 2D 124.1 g 88 - 224 g [facility] Work Phone: LV Mass 2D Index 55.7 g/m2 49 - 115 g/m2 [facility] Work Phone: LV RWT Ratio 0.56 [facility] Work Phone: LVIDd 3.6 cm Abnormal 4.2 - 5.9 cm [facility] Work Phone: LVIDd Index 1.61 cm/m2 [facility] Work Phone: LVIDs 2.4 cm [facility] Work Phone: LVIDs Index 1.08 cm/m2 [facility] Work Phone: LVOT Area 3.5 cm2 [facility] Work Phone: LVOT Cardiac Output 4.3 liter/mi nu te [facility] Work Phone: LVOT Diameter 2.1 cm [facility] Work Phone: LVOT Mean Gradient 2 mmHg [facility] Work Phone: LVOT Peak Gradient 4 mmHg [facility] Work Phone: LVOT Peak Velocity 1.0 m/s [facility] Work Phone: LVOT Stroke Volume Index 31.4 mL/m2 [facility] Work Phone: LVOT SV 69.9 ml [facility] Work Phone: LVOT VTI 20.2 cm [facility] Work Phone: LVOT:AV VTI Index 0.80 [facility] ealth Work Phone: LVPWd 1.0 cm 0.6 - 1.0 cm [facility] Work Phone: MV A Velocity 0.70 m/s [facility] Work Phone: MV E Velocity 0.45 m/s [facility] Work Phone: MV E Wave Deceleration Time 192.7 ms [facility] Work Phone: MV E/A 0.64 [facility] Work Phone: Pulmonary Artery EDP 3 mmHg [facility] Work Phone: RV Free Wall Peak S' 11 cm/s [facility] Work Phone: TAPSE 1.9 cm 1.7 cm [facility] Work Phone: TR Max Velocity 2.77 m/s [facility] Work Phone: TR Peak Gradient 31 mmHg [facility] Work Phone: [facility] Work Phone: Heart Transthoracicon Left Ventricle: Left ventricle size [...] on 12-19-2022 Heart rate 58 /min bpm [facility] Work Phone: XR CHEST 1 VIEWon 12-19-2022 [...] Signed Date/Time: 12/19/2022 9:03 AM EDT Normal [facility] XR Chest Single viewon 12-19 No acute pulmonary process. Report Dictated on Electronically Signed By: Eun Burleson Electronically Signed Date/Time: 12/19/2022 9:03 AM EDT [facility] [employer] Patient Name: JESUS ALBERTO GUEVARA : [...] is no mediastinal widening or pleural effusion. [facility] Eun Burleson MD - 12/19/2022 Patient Name: JESUS ALBERTO GUEVARA : 1940 [facility]#: [id number] Exam Date/Time: 12/19/2022 07:53 Procedure: XR CHEST [...] Electronically Signed Date/Time: 12/19/2022 9:03 AM EDT [facility] Radiology Study observation (narrative) [facility] XR Chest Single viewOrdered By: Eun Burleson on 12-19-2022 [facility] Work Phone: 36on 12-18-2022 36 Name of caller: Jesus velazquez Contact phone number: [phone] Relationship to Patient: [facility] Insurance Provider: Dr. Nickerson Practice: [facility] Cardiothoracic Surgery Chief Complaint/Reason for Call: Felicita states they need authorization for his surgery on 12/20/24. Please advise. Best time of day caller can be reached: any Patient advised that office/PCP has 24-48 business hours to return their call: N/A Normal [facility] Basic metabolic 1998 panelon 12-18-2022 Anion gap [Moles/Vol] 4 mmol/L 3 - 13 mmol/L [facility] Calcium [Mass/Vol] 8.5 mg/dL 8.4 - 10. 4 mg/dL [facility] Chloride [Moles/Vol] 105 mmol/L 98 - 10 7 mmol/L [facility] CO2 [Moles/Vol] 26 mmol/L 22 - 30 mmol/L [facility] Creatinine [Mass/Vol] 1.28 mg/dL High 0.66 - 1.25 mg/dL [facility] GFR/1.73 sq M.predicted MDRD (S/P/Bld) [Vol rate/Area] 56.2 mL/min/{1.73_m2} Low - PINF [facility] Comment on above: Calculation based on the Chronic Kidney Disease Epidemiology Collaboration (CKD-EPI) equation refit without adjustment for race Glucose [Mass/Vol] 100 mg/dL 70 - 100 mg/dL [facility] Potassium [Moles/Vol] 4.8 mmol/L 3.5 - 5.1 mmol/L [facility] Sodium [Moles/Vol] 135 mmol/L 135 - 145 mmol/L [facility] Urea nitrogen [Mass/Vol] 18 mg/dL 9 - 20 mg/dL [facility] Basophil percentageOrdered B y: Sarah White on 12-18-2022 Cholesterol [Mass/Vol] 247 mg/dL <200 [facility] Comment on above: <200 mg/dL Desirable 200-240 mg/dL Borderline >240 mg/dL High Risk Triglyceride [Mass/Vol] 274 mg/dL <199 [facility] Comment on above: The drugs N-Acetylcy steine and Metamizole may falsely depress this assay.Serum Triglycerides Reference Interval Normal <150 mg/dL Borderline high 150 - 199 mg/dL High 200 - 499 mg/dL Very High > or = 500 mg/dL CBC W Auto Differential pane l (Bld)Ordered By: Precious Adams on 12-18-2022 Basophils (Bld) [#/Vol] 0.1 10*3/uL 0.0 - 0.2 10*3/uL [facility] Basophils/100 WBC (Bld) 0.9 % 0.0 - 2.0 % [facility] Eosinophils (Bld) [#/Vol] 0.1 10*3/uL 0.0 - 0.5 10*3/uL [facility] Eosinophils/100 WBC (Bld) 0.7 % Low 1.0 - 6.0 % [facility] Erythrocyte distribution width (RBC) [Ratio] 13.9 % 11.5 - 14.5 % [facility] Hematocrit (Bld) [Volume fraction] 48.0 % 40.0 - 52.0 % [facility] Hemoglobin (Bld) [Mass/Vol] 15.9 g/dL 13.0 - 18.0 g/dL [facility] Interpretation and review of laboratory results Abnormal [facility] Lymphocytes (Bld) [#/Vol] 1.2 10*3/uL 1.0 - 4.3 10*3/uL [facility] Lymphocytes/100 WBC (Bld) 16.4 % Low 20.0 - 40.0 % [facility] MCH (RBC) [Entitic mass] 29.3 pg 26.0 - 34.0 pg [facility] MCHC (RBC) [Mass/Vol] 33.2 % 32.0 - 36.0 % [facility] MCV (RBC) [Entitic vol] 88.2 fL 80.0 - 98.0 fL [facility] Monocytes (Bld) [#/Vol] 0.5 10*3/uL 0.0 - 0.8 10*3/uL [facility] Monocytes/100 WBC (Bld) 6.2 % 2.0 - 10.0 % [facility] Neutrophils (Bld) [#/Vol] 5.5 10*3/uL 1.8 - 7.0 10*3/uL [facility] Neutrophils/100 WBC (Bld) 75.8 % 40.0 - 80.0 % [facility] Nucleated RBC/100 WBC (Bld) [Ratio] 0.1 % [facility] Platelet mean volume (Bld) [Entitic vol] 8.1 fL 7.4 - 12.4 fL [facility] Platelets (Bld) [#/Vol] 167 10*3/uL 140 - 440 10*3/uL [facility] RBC (Bld) [#/Vol] 5.44 10*6/uL 4.40 - 5.90 10*6/uL [facility] WBC (Bld) [#/Vol] 7.3 10*3/uL 3.6 - 10.7 10*3/uL [facility] CT Chest WO contraston 12-18 Radiology Study observation (narrative) [facility] HbA1c (Bld) [Mass fraction]o n 12-18-2022 Average glucose Estimated from glycated hemoglobin (Bld) [Mass/Vol] 108 mg/dL [facility] HbA1c (Bld) [Mass/Vol] 5.4 % NINF - 5.7 % [facility] Comment on above: Normal less than 5.7 % Prediabetes 5.7% to 6.4% Diabetes 6.5% or higher --HgbA1C levels may not be accurate in patients who have renal disease, received recent blood transfusions, are anemic, or who have dyshemoglobinemia. [facility] Hepatic function 2000 panelo n 12-18-2022 Albumin [Mass/Vol] 3.8 g/dL 3.5 - 5.0 g/dL [facility] ALP [Catalytic activity/Vol] 74 U/L 38 - 126 U/L [facility] ALT [Catalytic activity/Vol] 41 U/L 0 - 49 U/L [facility] AST [Catalytic activity/Vol] 51 U/L High 15 - 46 U/L [facility] Bilirubin [Mass/Vol] 0.7 mg/dL 0.2 - 1 .3 mg/dL [facility] Bilirubin.conjugated [Mass/Vol] 0.0 mg/dL 0.0 - 0.3 mg/dL [facility] Protein [Mass/Vol] 6.7 g/dL 6.3 - 8.2 g/dL [facility] Laboratory - Chemistry and C hemistry - challengeon 12-18-2022 TSH Qn 0.804 m[IU]/L [facility] No Panel InformationOrdered By: Adalid Causey on 12-18-2022 Left CCA dist EDV 12.5 cm/s [facility] Work Phone: Left CCA dist PSV 85.1 cm/s [facility] Work Phone: Left CCA mid EDV 14.30 cm/s [facility] Work Phone: Left CCA mid PSV 119.60 cm/s [facility] Work Phone: Left CCA prox EDV 14.3 cm/s [facility] Work Phone: Left CCA prox PSV 121.4 cm/s [facility] Work Phone: Left ECA EDV 0.00 cm/s [facility] Work Phone: Left ECA PSV 115.9 cm/s [facility] Work Phone: Left ICA dist EDV [...] Work Phone: Right E[facility] EDV 0.00 cm[facility]s [facility] Work Phone: Right ECA PSV 155.7 cm/s [facility] Work Phone: Right ICA dist EDV 14.2 cm/s [facility] Work Phone: Right ICA dist PSV 86.3 cm/s [facility] Work Phone: Right ICA mid EDV 13.3 cm/s [facility] Work Phone: Right ICA mid PSV 78.3 cm/s [facility] Work Phone: Right ICA prox EDV 12.6 cm/s [facility] Work Phone: Right ICA prox PSV 98.4 cm/s [facility] Work Phone: Right ICA/CCA PSV 0.85 [facility] Work Phone: Right subclavian mid EDV 8.6 cm/s [facility] Work Phone: Right subclavian mid PSV 226.8 cm/s [facility] Work Phone: Right vertebral EDV 6.30 cm/s [facility] Work Phone: Right vertebral PSV 24.3 cm/s [facility] Work Phone: No Panel Informationon 12-18 <50% [...] Artery: Flow is antegrade. Subclavian Artery: Normal. Assembler Brazer Details A nunez scale, color Doppler imaging [...] diameters as noted in the table below. [employer] Details A nunez scale and color Doppler imaging ultrasound was performed. During the study longitudinal and transverse views were obtained. Pulsed wave doppler was performed. The exam was performed with the patient in the supine and sitting position. Overall the study quality was adequate. Study was technically difficult due to: bedside exam. CV CPACS Interpretation and review of laboratory results Abnormal [facility] Serum or plasma cholesterol in HDL measurement (mass/volume)Ordered By: Sarah Hsu on 12-18-2022 Cholesterol in HDL [Mass/Vol] 31 mg/dL >40 [facility] Comment on above: The drugs N-Acetylcy steine and Metamizole may falsely depress this assay. Reference Range HDL <40 mg/dL Low HDL Cholesterol HDL >or= 60 mg/dL High HDL Cholesterol Serum or plasma cholesterol in VLDL measurement (mass/volume)Ordered By: Sarah Hsu on 12-18-2022 Cholesterol in VLDL [Mass/Vol] 55 mg/dL 5-40 [facility] Serum or plasma low density lipoprotein (LDL) cholesterol measurement (mass/volume)Ordered By: Sarah Hsu on 12-18-2022 Cholesterol in LDL [Mass/Vol] 161 mg/dL 0-130 [facility] TSH Qnon 12-18-2022 Interpretation and review of laboratory results Normal [facility] Urinalysis complete panel (U )Ordered By: Joellen Sifuentes on 12-18-2022 Bilirubin Ql (U) Negative Negative mg/dL [facility] Clarity (U) Clear Clear [facility] Color (U) Light Yellow Lt. Yellow [facility] Glucose Ql (U) Normal Normal (<70) mg/dL [facility] Hemoglobin Ql (U) Negative Negative mg/dL [facility] Interpretation and review of laboratory results Abnormal [facility] Ketones (U) [Mass/Vol] Negative Negative mg/dL [facility] Leukocyte esterase Test strip Ql (U) Negative Negative Marc/uL [facility] Nitrite Ql (U) Negative Negative [facility] th pH (U) 5.5 [pH] 5.0 - 8.0 pH [facility] Protein (U) [Mass/Vol] Negative Negative mg/dL [facility] Specific gravity (U) [Rel density] 1.038 High 1.005 - 1.030 [facility] Urobilinogen (U) [Mass/Vol] Normal Normal (0-1) mg/dL [facility] Absolute lymphocyte countOrd ered By: Sarah Hsu on 12-17-2022 Lymphocytes Auto (Unsp spec) [#/Vol] 1.52 10*3/uL 0.83-4.51 [facility] Basophil percentageOrdered B y: Sarah Hsu on 12-17-2022 Basophils/100 WBC (Bld) 0.9 % 0-1 [facility] Bilirubin [Mass/Vol] 0.30 mg/dL 0.20-1.00 [facility] Comment on above: For patients on eltr ombopag therapy, use of Dimension [place] TBIL is not recommended. Chloride [Moles/Vol] 111 mmol/L 98-107 [facility] Eosinophils/100 WBC (Bld) 2.4 % 0-5 [facility] Glucose [Mass/Vol] 102 mg/dL 74-106 [facility] Comment on above: Fasting Glucose resu lt from 100 to 125 mg/dL suggests IMPAIRED HOMEOSTASIS per A.D.A. criteria. Neutrophils (Bld) [#/Vol] 3.1 10*3/uL 2.0-7.7 [facility] Neutrophils/100 WBC (Bld) 58.3 % 47-70 [facility] Potassium [Moles/Vol] 4.7 mmol/L 3.5-5.1 [facility] Protein [Mass/Vol] 5.6 g/dL 6.4-8.2 [facility] Sodium [Moles/Vol] 141 mmol/L 136-145 [facility] WBC (Bld) [#/Vol] 5.3 10*3/uL 4.4-11.0 [facility] Blood erythrocytes count (nu mber/volume)Ordered By: Sarah Hsu on 12-17-2022 RBC (Bld) [#/Vol] 5.18 10*6/uL 4.6-6.2 [facility] Blood hemoglobin measurement (mass/volume)Ordered By: Sarah Hsu on 12-17-2022 Hemoglobin (Bld) [Mass/Vol] 14.9 g/dL 13.0-16.5 [facility] Blood lymphocytes/100 leukoc ytesOrdered By: Shadi on 12-17-2022 Lymphocytes/100 WBC (Bld) 28.6 % 19-41 [facility] Blood monocytes/100 leukocyt esOrdered By: Shadi on 12-17-2022 Monocytes/100 WBC (Bld) 9.4 % 0-10 [facility] Blood platelet mean volumeOr dered By: Shadi on 12-17-2022 Platelet mean volume (Bld) [Entitic vol] 10.3 fL 6.2-12.0 [facility] Determination of erythrocyte mean corpuscular volume (MCV)Ordered By: Sarah sHu on 12-17-2022 MCV (RBC) [Entitic vol] 89.2 fL 80-94 [facility] Hematocrit Auto (Bld) [Volum e fraction]Ordered By: Sarah Hsu on 12-17-2022 Hematocrit (Bld) [Volume fraction] 46.2 % 40-54 [facility] Laboratory - Chemistry and C hemistry - challengeOrdered By: [facility] Shadi on 12-17-2022 ALP [Catalytic activity/Vol] 62 U/L 45-117 [facility] ALT [Catalytic activity/Vol] 26 U/L 16-61 [facility] CO2 [Moles/Vol] 26.0 mmol/L 21.0-32.0 [facility] Globulin (S) [Mass/Vol] 2.8 g/dL 2.2-4.2 [facility] Urea nitrogen/Creatinine [Mass ratio] 14.1 mg/mg 10-20 [facility] Magnesium [Mass/Vol] 2.2 mg/dL 1.6-2.6 [facility] Comment on above: Moderate Hemolysis, Result may be falsely increased. Laboratory - Hematology and Cell countsOrdered By: Sarah Hsu on 12-17-2022 Erythrocyte distribution width (RBC) [Entitic vol] 42.4 fL 35.1-43.9 [facility] Erythrocyte distribution width (RBC) [Ratio] 12.9 % 11.6-14.6 [facility] Immature granulocytes/100 WBC (Bld) 0.400 % 0.0-0.9 [facility] Comment on above: IG% - Immature Granu locytes (promyelocytes, myelocytes and metamyelocytes) > 1% indicates that a LEFT SHIFT is Present. MCH (RBC) [Entitic mass] 28.8 pg 27.0-32.0 [facility] Nucleated RBC/100 WBC (Bld) [Ratio] 0 % 0-5 [facility] MCHC Auto (RBC) [Mass/Vol]Or dered By: Sarah Hsu on 12-17-2022 MCHC (RBC) [Mass/Vol] 32.3 g/dL 32-36 [facility] No Panel InformationOrdered By: Sarah Hus on 12-17-2022 Troponin I High Sensitivity 137 pg/mL 3.0-78.0 [facility] Comment on above: Critical Result(s) C alled at: 08:49:47 12/17/2022 by: Maddie Mark to Jessica. Results read back by same. Please Note: New Test Units and Gender Specific Reference Ranges. For more information see Policy Stat Procedure [place] High Sensitivity Troponin (TNIH) and attachments. Estimated Creatinine Clearance Calc 43.45 ml/min [facility] Estimated GFR (MDRD) Amer 61 mL/min >60 [facility] Comment on above: GFR Calc Estimated GFR (MDRD) Non-Af Amer 51 mL/min >60 [facility] Comment on above: Non- GFR Calc Platelets bldOrdered By: Kathleen Hsu on 12-17-2022 Platelets (Bld) [#/Vol] 177 10*3/uL 150-450 [facility] Serum or plasma albumin aric urement (mass/volume)Ordered By: Sarah Hsu on 12-17-2022 Albumin [Mass/Vol] 2.8 g/dL 3.2-5.0 [facility] Serum or plasma albumin/glob ulin mass ratioOrdered By: Sarah Hsu on 12-17-2022 Albumin/Globulin [Mass ratio] 1.0 {ratio} 0.9-2.4 [facility] Serum or plasma calcium aric urement (mass/volume)Ordered By: Sarah Hsu on 12-17-2022 Calcium [Mass/Vol] 7.8 mg/dL 8.5-10.1 [facility] Serum or plasma creatinine m easurement (mass/volume)Ordered By: Sarah Hsu on 12-17-2022 Creatinine [Mass/Vol] 1.42 mg/dL 0.70-1.30 [facility] Comment on above: The validity of the calculated GFR & GFRAA in patients over 70 years has not been determined. Clinical correlation is essential. Serum or plasma urea nitroge n measurement (mass/volume)Ordered By: Sarah Hsu on 12-17-2022 Urea nitrogen [Mass/Vol] 20 mg/dL 7-18 [facility] Thin prep Papanicolaou smear with manual screeningOrdered By: Sarah Hsu on 12-17-2022 Thin prep Papanicolaou smear with manual screening 15 U/L 15-37 [facility] Thin prep Papanicolaou smear with manual screening 4 5-15 [facility] Absolute lymphocyte countOrd ered By: Dr. Lester on 10-22-2022 Lymphocytes Auto (Unsp spec) [#/Vol] 1.54 10*3/uL 0.83-4.51 [facility] Basophil percentageOrdered B y: Dr. Lester on 10-22-2022 Basophils/100 WBC (Bld) 1.1 % 0-1 [facility] Bilirubin [Mass/Vol] 0.50 mg/dL 0.20-1.00 [facility] Comment on above: For patients on eltr ombopag therapy, use of Dimension [place] TBIL is not recommended. Chloride [Moles/Vol] 112 mmol/L 98-107 [facility] Eosinophils/100 WBC (Bld) 2.8 % 0-5 [facility] Glucose [Mass/Vol] 97 mg/dL 74-106 [facility] Neutrophils (Bld) [#/Vol] 3.0 10*3/uL 2.0-7.7 [facility] Neutrophils/100 WBC (Bld) 55.7 % 47-70 [facility] Potassium [Moles/Vol] 4.4 mmol/L 3.5-5.1 [facility] Protein [Mass/Vol] 6.8 g/dL 6.4-8.2 [facility] Sodium [Moles/Vol] 139 mmol/L 136-145 [facility] WBC (Bld) [#/Vol] 5.4 10*3/uL 4.4-11.0 [facility] Blood erythrocytes count (nu mber/volume)Ordered By: Dr. Lester on 10-22-2022 RBC (Bld) [#/Vol] 5.43 10*6/uL 4.6-6.2 [facility] Blood hemoglobin measurement (mass/volume)Ordered By: Dr. Lester on 10-22-2022 Hemoglobin (Bld) [Mass/Vol] 16.0 g/dL 13.0-16.5 [facility] Blood lymphocytes/100 leukoc ytesOrdered By: Dr. Lester on 10-22-2022 Lymphocytes/100 WBC (Bld) 28.8 % 19-41 [facility] Blood monocytes/100 leukocyt esOrdered By: Dr. Lester on 10-22-2022 Monocytes/100 WBC (Bld) 11.2 % 0-10 [facility] Blood platelet mean volumeOr dered By: Dr. Lester on 10-22-2022 Platelet mean volume (Bld) [Entitic vol] 10.6 fL 6.2-12.0 [facility] Determination of erythrocyte mean corpuscular volume (MCV)Ordered By: Dr. Lester on 10-22-2022 MCV (RBC) [Entitic vol] 89.5 fL 80-94 [facility] Erythrocyte sedimentation ra teOrdered By: Dr. Lester on 10-22-2022 ESR (Bld) [Velocity] 11 mm/h 0-20 [facility] Hematocrit Auto (Bld) [Volum e fraction]Ordered By: Dr. Lester on 10-22-2022 Hematocrit (Bld) [Volume fraction] 48.6 % 40-54 [facility] Laboratory - Chemistry and C hemistry - challengeOrdered By: Dr. Lester on 10-22-2022 ALP [Catalytic activity/Vol] 62 U/L 45-117 [facility] ALT [Catalytic activity/Vol] 28 U/L 16-61 [facility] CO2 [Moles/Vol] 23.0 mmol/L 21.0-32.0 [facility] Globulin (S) [Mass/Vol] 3.5 g/dL 2.2-4.2 [facility] Urea nitrogen/Creatinine [Mass ratio] 12.7 mg/mg 10-20 [facility] Laboratory - Hematology and Cell countsOrdered By: Dr. Lester on 10-22-2022 Erythrocyte distribution width (RBC) [Entitic vol] 43.7 fL 35.1-43.9 [facility] Erythrocyte distribution width (RBC) [Ratio] 13.5 % 11.6-14.6 [facility] Immature granulocytes/100 WBC (Bld) 0.400 % 0.0-0.9 [facility] Comment on above: IG% - Immature Granu locytes (promyelocytes, myelocytes and metamyelocytes) > 1% indicates that a LEFT SHIFT is Present. MCH (RBC) [Entitic mass] 29.5 pg 27.0-32.0 [facility] Nucleated RBC/100 WBC (Bld) [Ratio] 0 % 0-5 [facility] MCHC Auto (RBC) [Mass/Vol]Or dered By: Dr. Lester on 10-22-2022 MCHC (RBC) [Mass/Vol] 32.9 g/dL 32-36 [facility] No Panel InformationOrdered By: Dr. Lester on 10-22-2022 Estimated GFR (MDRD) Amer 51 mL/min >60 [facility] Comment on above: GFR Calc Estimated GFR (MDRD) Non-Af Amer 42 mL/min >60 [facility] Comment on above: Non- GFR Calc Platelets bldOrdered By: Dr. Lester on 10-22-2022 Platelets (Bld) [#/Vol] 205 10*3/uL 150-450 [facility] Serum or plasma C reactive p rotein measurement (mass/volume)Ordered By: Dr. Lester on 10-22-2022 CRP [Mass/Vol] mg/L 0.0-3.0 [facility] Comment on above: C-Reactive Protein ( CRP) provides useful information for thediagnosis, therapy and monitoring of inflammatory processesand associated diseases. For the evaluation of Relative Riskfor Cardiovascular Disease, a High Sensitivity CRP (HSCRP)should be ordered. Serum or plasma albumin aric urement (mass/volume)Ordered By: Dr. Lester on 10-22-2022 Albumin [Mass/Vol] 3.3 g/dL 3.2-5.0 [facility] Serum or plasma albumin/glob ulin mass ratioOrdered By: Dr. Lester on 10-22-2022 Albumin/Globulin [Mass ratio] 0.9 {ratio} 0.9-2.4 [facility] Serum or plasma calcium aric urement (mass/volume)Ordered By: Dr. Lester on 10-22-2022 Calcium [Mass/Vol] 8.7 mg/dL 8.5-10.1 [facility] Serum or plasma creatinine m easurement (mass/volume)Ordered By: Dr. Lester on 10-22-2022 Creatinine [Mass/Vol] 1.66 mg/dL 0.70-1.30 [facility] Comment on above: The validity of the calculated GFR & GFRAA in patients over 70 years has not been determined. Clinical correlation is essential. Serum or plasma urea nitroge n measurement (mass/volume)Ordered By: Dr. Lester on 10-22-2022 Urea nitrogen [Mass/Vol] 21 mg/dL 7-18 [facility] Thin prep Papanicolaou smear with manual screeningOrdered By: Dr. Lester on 10-22-2022 Thin prep Papanicolaou smear with manual screening 18 U/L 15-37 [facility] Thin prep Papanicolaou smear with manual screening 4 5-15 [facility] Basophil percentageOrdered B y: Dr. Gimenez on 08-17-2022 Chloride [Moles/Vol] 107 mmol/L 98-107 [facility] Glucose [Mass/Vol] 160 mg/dL 74-106 [facility] Comment on above: Fasting Glucose resu lt greater than or equal to 126 mg/dL suggests DIABETES MELLITUS per A.D.A. criteria. Potassium [Moles/Vol] 4.4 mmol/L 3.5-5.1 [facility] Sodium [Moles/Vol] 141 mmol/L 136-145 [facility] Laboratory - Chemistry and C hemistry - challengeOrdered By: Dr. Gimenez on 08-17-2022 CO2 [Moles/Vol] 27.0 mmol/L 21.0-32.0 [facility] Urea nitrogen/Creatinine [Mass ratio] 13.5 mg/mg 10-20 [facility] No Panel InformationOrdered By: Dr. Gimenez on 08-17-2022 Estimated GFR (MDRD) Amer 56 mL/min >60 [facility] Comment on above: GFR Calc Estimated GFR (MDRD) Non-Af Amer 46 mL/min >60 [facility] Comment on above: Non- GFR Calc Serum or plasma calcium aric urement (mass/volume)Ordered By: Dr. Gimenez on 08-17-2022 Calcium [Mass/Vol] 8.4 mg/dL 8.5-10.1 [facility] Serum or plasma creatinine m easurement (mass/volume)Ordered By: Dr. Gimenez on 08-17-2022 Creatinine [Mass/Vol] 1.55 mg/dL 0.70-1.30 [facility] Comment on above: The validity of the calculated GFR & GFRAA in patients over 70 years has not been determined. Clinical correlation is essential. Serum or plasma urea nitroge n measurement (mass/volume)Ordered By: Dr. Gimenez on 08-17-2022 Urea nitrogen [Mass/Vol] 21 mg/dL 7-18 [facility] Thin prep Papanicolaou smear with manual screeningOrdered By: Dr. Gimenez on 08-17-2022 Thin prep Papanicolaou smear with manual screening 7 5-15 [facility] Laboratory - Microbiology an d Antimicrobial susceptibilityon 08-06-2022 SARS-CoV-2 (COVID-19) RNA RIVKA+probe Ql (Unsp spec) Not detected [facility] No Panel Informationon 08-06 Influenza Types A,B Rapid (Clinic) Not detected [facility] ALDOSTERONE ([id number])Ordered B y: Wire Bound Box Machine Operator on 05-03-2022 Aldosterone [Mass/Vol] 8.5 ng/dL Normal 0.0-30.0 [facility]; [facility] Work Phone: Comment on above: Test(s) 452052-Ysnhw terone; 996922-Wnnjj Activity, Plasmawas developed and its performance characteristics determinedby [employer]. It has not been cleared or approved by the Foodand Drug Administration.PATIENT NOT FASTINGPERFORMED BY: [facility] [address] [id number] BY: LabcoSt. Francis Medical CenterIyqasq7681 [facility] [id number] CORTISOL, A.M. ([id number])Ordere d By: Wire Bound Box Machine Operator on 05-03-2022 Cortisol AM peak specimen [Mass/Vol] 12.7 ug/dL Normal 6.2-19.4 [facility]; [facility] Work Phone: Comment on above: Test(s) 202719-Pxunu terone; 612721-Jsgon Activity, Plasmawas developed and its performance characteristics determinedby [employer]. It has not been cleared or approved by the Foodand Drug Administration.PATIENT NOT FASTINGPERFORMED BY: [employer] [id number] [facility] [id number] BY: [employer] [id number] [address] [facility] [id number] RENIN ([id number])Ordered By: Sys tem Supervisor Frame Assembly on 05-03-2022 Renin (P) [Catalytic activity/Vol] 1.135 {ng/mL/hr} Normal 0.167-5.38 0 [facility]; [facility] Work Phone: Comment on above: Test(s) 812810-Scver terone; 846547-Srpmw Activity, Plasmawas developed and its performance characteristics determinedby [employer]. It has not been cleared or approved by the Foodand Drug Administration.PATIENT NOT FASTINGPERFORMED BY: [employer] [id number] BY: [employer]6370 [facility] [id number] Basophil percentageOrdered B y: Dr. Zayas on 05-01-2022 Potassium [Moles/Vol] 5.2 mmol/L 3.5-5.1 [facility] CALCIFIDIOL ([id number]) VIT D 25 Ordered By: Wire Bound Box Machine Operator on 04-27-2022 25-hydroxyvitamin D [Mass/Vol] 36.1 ng/mL Normal 30.0-100.0 [facility]; [facility] Work Phone: Comment on above: Vitamin D deficiency has been defined by the [place] of[employer]icine and an Endocrine Society practice guideline as alevel of serum 25-OH vitamin D less than 20 ng/mL (1,2).The Endocrine Society went on to further define vitamin Dinsufficiency as a level between 21 and 29 ng/mL (2).1. IOM ([place] of [employer]). 2010. Dietary reference intakes for calcium and D. [place]: The National Academies Press.2. Meme MF, Lian ANDERSON, Donald HERNANDEZ, et al. Evaluation, treatment, and prevention of vitamin D deficiency: an Endocrine Society clinical practice guideline. JCEM. 2010; 96(7):1911-30. PATIENT WAS FASTINGP ERFORMED BY: [facility] [id number] [address] [facility] [place] [id number] CBC W/AUTO DIFF WBC (52519)O rdered By: Wire Bound Box Machine Operator on 04-27-2022 Basophils (Bld) [#/Vol] 0.1 10*3/uL Normal 0.0-0.2 [facility]; [facility] Work Phone: Comment on above: PATIENT WAS FASTINGP ERFORMED BY: [facility] [id number] [address] [facility] [place] [id number] Basophils/100 WBC (Bld) 1 % Normal [facility]; [facility] Work Phone: Comment on above: PATIENT WAS FASTINGP ERFORMED BY: [facility]6[address] [facility] [id number] Eosinophils (Bld) [#/Vol] 0.2 10*3/uL Normal 0.0-0.4 [facility]; [facility] Work Phone: Comment on above: PATIENT WAS FASTINGP ERFORMED BY: [facility]6[address] [facility] [id number] Eosinophils/100 WBC (Bld) 3 % Normal [facility]; [facility] Work Phone: Comment on above: PATIENT WAS FASTINGP ERFORMED BY: [facility]6370 [facility] [id number] Erythrocyte distribution width (RBC) [Ratio] 13.1 % Normal 11.6-15.4 [facility]; [facility] Work Phone: Comment on above: PATIENT WAS FASTINGP ERFORMED BY: [facility] [id number] [address] [facility] [place] [id number] Hematocrit (Bld) [Volume fraction] 48.9 % Normal 37.5-51.0 [facility]; [facility] Work Phone: Comment on above: PATIENT WAS FASTINGP ERFORMED BY: [facility] Nglrkf2523 [address] [facility] [id number] Hemoglobin (Bld) [Mass/Vol] 16.3 g/dL Normal 13.0-17.7 [facility]; [facility] Work Phone: Comment on above: PATIENT WAS FASTINGP ERFORMED BY: AMY Labco[facility] Xalocf9631 [address] Roadbl[address] [place] [id number] Immature granulocytes (Bld) [#/Vol] 0.0 10*3/uL Normal 0.0-0.1 [facility]; [facility] Work Phone: Comment on above: PATIENT WAS FASTINGP ERFORMED BY: AMY [facility] Drmruc6362 Cur[address] Roadblin [place] [id number] Immature granulocytes/100 WBC (Bld) 0 % Normal [facility]; [facility] Work Phone: Comment on above: PATIENT WAS FASTINGP ERFORMED BY: AMY [facility] Bcndas6387 [address]iel RoadAtrium Health Stanly [id number] Lymphocytes (Bld) [#/Vol] 2.0 10*3/uL Normal 0.7-3.1 [facility]; [facility] Work Phone: Comment on above: PATIENT WAS FASTINGP ERFORMED BY: AMY [facility] PerezHbhset2299 [address] [facility] [place] [id number] Lymphocytes/100 WBC (Bld) 34 % Normal [facility]; [facility] Work Phone: Comment on above: PATIENT WAS FASTINGP ERFORMED BY: AMY [facility] Igsaaj4047 [address] [facility] [id number] MCH (RBC) [Entitic mass] 29.5 pg Normal 26.6-33.0 [facility]; [facility] Work Phone: Comment on above: PATIENT WAS FASTINGP ERFORMED BY: AMY [facility] [id number] [address] [facility] [place] [id number] MCHC (RBC) [Mass/Vol] 33.3 g/dL Normal 31.5-35.7 [facility] prehensive [facility]; [facility] Work Phone: Comment on above: PATIENT WAS FASTINGP ERFORMED BY: AMY [facility] [id number] [address] [facility] [place] [id number] MCV (RBC) [Entitic vol] 89 fL Normal 79-97 [facility]; [facility] Work Phone: Comment on above: PATIENT WAS FASTINGP ERFORMED BY: AMY Jasmin Vale[address] [place] [id number] Monocytes (Bld) [#/Vol] 0.5 10*3/uL Normal 0.1-0.9 [facility]; [facility] Work Phone: Comment on above: PATIENT WAS FASTINGP ERFORMED BY: AMY Shantajaiden PerezFprjae1923 Curiel RoadDublin [place] [id number] Monocytes/100 WBC (Bld) 9 % Normal [facility]; [facility] Work Phone: Comment on above: PATIENT WAS FASTINGP ERFORMED BY: AMY Perezlin6370 [address] [place] [id number] Neutrophils (Bld) [#/Vol] 3.2 10*3/uL Normal 1.4-7.0 [facility]; [facility] Work Phone: Comment on above: PATIENT WAS FASTINGP ERFORMED BY: AMY Perezlin6370 [address] Road[address] [place] [id number] Neutrophils/100 WBC (Bld) 53 % Normal [facility]; [facility] Work Phone: Comment on above: PATIENT WAS FASTINGP ERFORMED BY: AMY Perezlin6370 [address] RoadWakemed [facility] Hospitalin [place] [id number] Platelets (Bld) [#/Vol] 210 10*3/uL Normal 150-450 [facility]; [facility] Work Phone: Comment on above: PATIENT WAS FASTINGP ERFORMED BY: AMY Shantajaiden PerezJlqybk6359 [address] RoadDublin [place] [id number] RBC (Bld) [#/Vol] 5.52 10*6/uL Normal 4.14-5.80 [facility]; [facility] Work Phone: Comment on above: PATIENT WAS FASTINGP ERFORMED BY: AMY Perezlin6370 [facility] [place] [place] [id number] WBC (Bld) [#/Vol] 6.0 10*3/uL Normal 3.4-10.8 [facility]; [facility] Work Phone: Comment on above: PATIENT WAS FASTINGP ERFORMED BY: AMY Horton [id number] [facility] [id number] LIPID PANEL ([id number])Ordered B y: Wire Bound Box Machine Operator on 04-27-2022 Cholesterol [Mass/Vol] 282 mg/dL Abnormal 100-199 [facility]; [facility] Work Phone: Comment on above: PATIENT WAS FASTINGP ERFORMED BY: AMY Perezlin6370 [facility] [id number] Cholesterol in HDL [Mass/Vol] 41 mg/dL Normal [facility]; [facility] Work Phone: Comment on above: PATIENT WAS FASTINGP ERFORMED BY: AMY Perezlin6370 [facility] [id number] Triglyceride [Mass/Vol] 262 mg/dL Abnormal 0-149 [facility]; [facility] Work Phone: Comment on above: PATIENT WAS FASTINGP ERFORMED BY: AMY Perezlin6370 [facility] [id number] LIPID PANEL ([id number]) 51 mg/dL Abnormal 5-40 [facility] Work Phone: Comment on above: PATIENT WAS FASTINGP ERFORMED BY: AMY [facility] Gqgxhb7428 [facility] [id number] LIPID PANEL ([id number]) 190 mg/dL Abnormal 0-99 [facility] Work Phone: Comment on above: PATIENT WAS FASTINGP ERFORMED BY: AMY Horton Fbqayt6869 [facility] [id number] LIPID PANEL ([id number]) 4.6 {ratio} Abnormal 0.0-3.6 [facility]; [facility] Work Phone: Comment on above: LDL/HDL Ratio Men Wo men 1/2 Avg.Risk 1.0 1.5 Avg.Risk 3.6 3.2 2X Avg.Risk 6.2 5.0 3X Avg.Risk 8.0 6.1 PATIENT WAS FASTINGP ERFORMED BY: [facility] Lxqrok2270 [address] [facility]blin [place] [id number] METABOLIC PANEL, COMPREHENSI VE ([id number])Ordered By: Wire Bound Box Machine Operator on 04-27-2022 Albumin [Mass/Vol] 3.9 g/dL Normal 3.6-4.6 [facility] Internal Medicine; [facility] Work Phone: Comment on above: PATIENT WAS FASTINGP ERFORMED BY: [facility] Igtjvt0482 Curiel [facility] [place] [id number] Albumin/Globulin [Mass ratio] 1.7 {ratio} Normal 1.2-2.2 [facility]; [facility] Work Phone: Comment on above: PATIENT WAS FASTINGP ERFORMED BY: [facility] Jvilmg5913 [address]iel [facility] [place] [id number] ALP [Catalytic activity/Vol] 70 U/L Normal 44-121 [facility]; [facility] Work Phone: Comment on above: PATIENT WAS FASTINGP ERFORMED BY: [facility] Sewxsl3925 Curiel [facility]in [place] [id number] ALT [Catalytic activity/Vol] 17 U/L Normal 0-44 [facility]; [facility] Work Phone: Comment on above: PATIENT WAS FASTINGP ERFORMED BY: [facility] Yoqijq9057 [address] [facility] [place] [id number] AST [Catalytic activity/Vol] 16 U/L Normal 0-40 [facility]; [facility] Work Phone: Comment on above: PATIENT WAS FASTINGP ERFORMED BY: [facility] Fjsjvj1839 Curiel [facility] [place] [id number] Bilirubin [Mass/Vol] 0.5 mg/dL Normal 0.0-1.2 [facility] Internal Medicine; [facility] Work Phone: Comment on above: PATIENT WAS FASTINGP ERFORMED BY: AMY [facility] Pezdcb7691 [address] RoadDublin [place] [id number] Calcium [Mass/Vol] 8.8 mg/dL Normal 8.6-10.2 [facility] Internal Medicine; [facility] Work Phone: Comment on above: PATIENT WAS FASTINGP ERFORMED BY: CB [facility] Glcoki3203 [address] RoadDublin [place] [id number] Chloride [Moles/Vol] 105 mmol/L Normal 96-106 Comp rehensive Internal Medicine; [facility] Work Phone: Comment on above: PATIENT WAS FASTINGP ERFORMED BY: CB [facility] Vwghov0723 Curiel RoadDublin [place] [id number] CO2 [Moles/Vol] 23 mmol/L Normal 20-29 [facility]; [facility] Work Phone: Comment on above: PATIENT WAS FASTINGP ERFORMED BY: [facility] Dubisi8876 [address] RoadDublin [place] [id number] Creatinine [Mass/Vol] 1.56 mg/dL Abnormal 0.76-1.27 [facility]; [facility] Work Phone: Comment on above: PATIENT WAS FASTINGP ERFORMED BY: AMY [facility] Okkhyg5541 [address] RoadDublin [place] [id number] GFR/1.73 sq M.predicted among non-blacks MDRD (S/P/Bld) [Vol rate/Area] 44 mL/min/{1.73_m2} Abnormal Comprehensiv e Internal Medicine; [facility] Work Phone: Comment on above: PATIENT WAS FASTINGP ERFORMED BY: CB [facility] Qzutsh6849 [address] RoadDublin [place] [id number] Globulin (S) [Mass/Vol] 2.3 g/dL Normal 1.5-4.5 [facility]; [facility] Work Phone: Comment on above: PATIENT WAS FASTINGP ERFORMED BY: [facility] Eztuej6381 [address] RoadDublin [place] [id number] Glucose [Mass/Vol] 86 mg/dL Normal 70-99 [facility] Internal Medicine; [facility] Work Phone: Comment on above: Please note refere nce interval change PATIENT WAS FASTINGP ERFORMED BY: AMY Labcoabida PerezShetff0669 [address] RoadDublin [place] [id number] Potassium [Moles/Vol] 5.4 mmol/L Abnormal 3.5-5.2 [facility] [[email or web address]] Internal Medicine; [facility] Work Phone: Comment on above: PATIENT WAS FASTINGP ERFORMED BY: AMY [facility] Rlxoem7719 [address] RoadDublin [place] [id number] Protein [Mass/Vol] 6.2 g/dL Normal 6.0-8.5 [facility] Internal Medicine; [facility] Work Phone: Comment on above: PATIENT WAS FASTINGP ERFORMED BY: AMY [facility] Gtjhed3007 [address] RoadDublin [place] [id number] Sodium [Moles/Vol] 141 mmol/L Normal 134-144 [facility] Internal Medicine; [facility] Work Phone: Comment on above: PATIENT WAS FASTINGP ERFORMED BY: AMY [facility] Eppjnp0606 [address] RoadDublin [place] [id number] Urea nitrogen [Mass/Vol] 23 mg/dL Normal 8-27 [facility]; [facility] Work Phone: Comment on above: PATIENT WAS FASTINGP ERFORMED BY: AMY [facility] Pnapzd2383 [address] RoadDublin [place] [id number] Urea nitrogen/Creatinine [Mass ratio] 15 mg/mg Normal 10-24 [facility]; [facility] Work Phone: Comment on above: PATIENT WAS FASTINGP ERFORMED BY: AMY [facility] Jgjvul7830 [address] RoadDublin [place] [id number] MICROALBUMINOrdered By: Syst em Supervisor Frame Assembly on 04-27-2022 Albumin DL <= 20 mg/L (U) [Mass/Vol] 3.5 ug/mL Normal [facility]; [facility] Work Phone: Comment on above: PATIENT WAS FASTINGP ERFORMED BY: AMY Labcoabida PerezFwwvyo4330 [address] RoadDublin [place] [id number] Albumin/Creatinine (U) [Mass ratio] 3 {mg/g_creat} Normal 0-29 [facility]; [facility] Work Phone: Comment on above: Normal: 0 - 29 Moder ately increased: 30 - 300 Severely increased: >300 PATIENT WAS FASTINGP ERFORMED BY: AMY Labcoabida Lfovcz4940 [address] RoadDublin [place] [id number] Creatinine (U) [Mass/Vol] 112.5 mg/dL Normal [facility]; [facility] Work Phone: Comment on above: PATIENT WAS FASTINGP ERFORMED BY: AMY Labmalaikaabida Bddqwc9777 [address] RoadDublin [place] [id number] TSH ([id number])Ordered By: StemPar Sciencese m Supervisor Frame Assembly on 04-27-2022 TSH Qn 1.790 {uIU/mL} Normal 0.450-4.50 0 [facility]; [facility] Work Phone: Comment on above: PATIENT WAS FASTINGP ERFORMED BY: AMY Labjaiden PerezKvfrkn4336 [address] RoadDublin [place] [id number] URINALYSIS, W/ MICRO ([id number]) Ordered By: Wire Bound Box Machine Operator on 04-27-2022 Appearance (U) Clear Normal Comprehens tri Internal Medicine; [facility] Work Phone: Comment on above: PATIENT WAS FASTINGP ERFORMED BY: AMY Labjaiden Ilkagn6355 [address] RoadDublin [place] [id number] Bilirubin Ql (U) Negative Normal Comprehe nsive Internal Medicine; [facility] Work Phone: Comment on above: PATIENT WAS FASTINGP ERFORMED BY: AMY [facility] Fdxzuk7786 [address] RoadDublin [place] [id number] Color (U) Yellow Normal [facility]; [facility] Work Phone: Comment on above: PATIENT WAS FASTINGP ERFORMED BY: AMY [facility] Turitx1344 [address] RoadDublin [place] [id number] Glucose Ql (U) Negative Normal Comprehens tri Internal Medicine; [facility] Work Phone: Comment on above: PATIENT WAS FASTINGP ERFORMED BY: AMY Vale6370 [address] [facility] Hospitalblin [place] [id number] Hemoglobin Ql (U) Negative Normal Compreh ensive Internal Medicine; [facility] Work Phone: Comment on above: PATIENT WAS FASTINGP ERFORMED BY: AMY Vale6370 [address] [facility]in [place] [id number] Ketones Ql (U) Negative Normal Comprehens tri Internal Medicine; [facility] Work Phone: Comment on above: PATIENT WAS FASTINGP ERFORMED BY: AMY Jasmin Vale6370 [address] [facility] Hospitalblin [place] [id number] Leukocyte esterase Test strip Ql (U) Negative Normal [facility]; [facility] Work Phone: Comment on above: PATIENT WAS FASTINGP ERFORMED BY: AMY Jasmin Vale6370 [address] [facility]in [place] [id number] Microscopic observation LM Nom (Urine sed) MICRON Normal [facility]; [facility] Work Phone: Comment on above: Microscopic follows if indicated. PATIENT WAS FASTINGP ERFORMED BY: AMY Perezlin6370 [address] [facility]in [place] [id number] Microscopic observation LM Nom (Urine sed) See below: Normal [facility]; [facility] Work Phone: Comment on above: Microscopic was yany cated and was performed. PATIENT WAS FASTINGP ERFORMED BY: AMY Labjaiden Puvzex3250 [address] RoadDublin [place] [id number] Nitrite Ql (U) Negative Normal Comprehens tri Internal Medicine; [facility] Work Phone: Comment on above: PATIENT WAS FASTINGP ERFORMED BY: AMY Perezlin6370 [address] [facility] Hospitalblin [place] [id number] pH (U) 6.0 [pH] Normal 5.0-7.5 [facility]; [facility] Work Phone: Comment on above: PATIENT WAS FASTINGP ERFORMED BY: LabSCIC SA Adullact Projet Xsayys5952 [address] OtogamiAtrium Health Stanly [id number] Protein Ql (U) Negative Normal Comprehens [facility] Internal Medicine; [facility] Work Phone: Comment on above: PATIENT WAS FASTINGP ERFORMED BY: Tracsis Rrjocs5649 [address] OtogamiAtrium Health Stanly [id number] Specific gravity (U) [Rel density] 1.018 1 Normal 1.005-1.03 0 [facility]; [facility] Work Phone: Comment on above: PATIENT WAS FASTINGP ERFORMED BY: LabSCIC SA [employer] [id number] CurielMetaStatAdventHealth [id number] Urobilinogen (U) [Mass/Vol] 0.2 mg/dL Normal 0.2-1.0 [facility]; [facility] Work Phone: Comment on above: PATIENT WAS FASTINGP ERFORMED BY: LabNLT SPINE6370 [facility] [id number] Absolute lymphocyte counton 01-29-2022 Lymphocytes Auto (Unsp spec) [#/Vol] 1.70 10*3/uL 0.83-4.51 [facility] Work Phone: Basophil percentageon 2021 Basophils/100 WBC (Bld) 1.0 % 0-1 [facility] Work Phone: Chloride [Moles/Vol] 106 mmol/L 98-107 [facility] Work Phone: Eosinophils/100 WBC (Bld) 3.4 % 0-5 [facility] Work Phone: Glucose [Mass/Vol] 109 mg/dL 74-106 [facility] Work Phone: Comment on above: Fasting Glucose resu lt from 100 to 125 mg/dL suggests IMPAIRED HOMEOSTASIS per A.D.A. criteria. Neutrophils (Bld) [#/Vol] 3.6 10*3/uL 2.0-7.7 [facility] Work Phone: Neutrophils/100 WBC (Bld) 59.0 % 47-70 [facility] Work Phone: Potassium [Moles/Vol] 4.1 mmol/L 3.5-5.1 [facility] Work Phone: Comment on above: Slight Hemolysis, Re sult may be falsely increased. Sodium [Moles/Vol] 141 mmol/L 136-145 [facility] Work Phone: WBC (Bld) [#/Vol] 6.1 10*3/uL 4.4-11.0 [facility] Work Phone: Blood erythrocytes count (nu mber/volume)on 01-29-2022 RBC (Bld) [#/Vol] 5.85 10*6/uL 4.6-6.2 [facility] Work Phone: Blood hemoglobin measurement (mass/volume)on 01-29-2022 Hemoglobin (Bld) [Mass/Vol] 16.7 g/dL 13.0-16.5 [facility] Work Phone: Blood lymphocytes/100 leukoc yteson 01-29-2022 Lymphocytes/100 WBC (Bld) 27.8 % 19-41 [facility] Work Phone: Blood monocytes/100 leukocyt eson 01-29-2022 Monocytes/100 WBC (Bld) 8.5 % 0-10 [facility] Work Phone: Blood platelet mean volumeon 01-29-2022 Platelet mean volume (Bld) [Entitic vol] 10.2 fL 6.2-12.0 [facility] Work Phone: Determination of erythrocyte mean corpuscular volume (MCV)on 01-29-2022 MCV (RBC) [Entitic vol] 87.5 fL 80-94 [facility] Work Phone: Hematocrit Auto (Bld) [Volum e fraction]on 01-29-2022 Hematocrit (Bld) [Volume fraction] 51.2 % 40-54 [facility] Work Phone: Laboratory - Chemistry and C hemistry - challengeon 01-29-2022 CO2 [Moles/Vol] 28.0 mmol/L 21.0-32.0 [facility] Work Phone: Urea nitrogen/Creatinine [Mass ratio] 9.6 mg/mg 10-20 [facility] Work Phone: Laboratory - Hematology and Cell countson 01-29-2022 Erythrocyte distribution width (RBC) [Entitic vol] 42.7 fL 35.1-43.9 [facility] Work Phone: Erythrocyte distribution width (RBC) [Ratio] 13.2 % 11.6-14.6 [facility] Work Phone: Immature granulocytes/100 WBC (Bld) 0.300 % 0.0-0.9 [facility] Work Phone: Comment on above: IG% - Immature Granu locytes (promyelocytes, myelocytes and metamyelocytes) > 1% indicates that a LEFT SHIFT is Present. MCH (RBC) [Entitic mass] 28.5 pg 27.0-32.0 [facility] Work Phone: Nucleated RBC/100 WBC (Bld) [Ratio] 0 % 0-5 [facility] Work Phone: MCHC Auto (RBC) [Mass/Vol]on 01-29-2022 MCHC (RBC) [Mass/Vol] 32.6 g/dL 32-36 [facility] Work Phone: No Panel Informationon 01-29 Troponin I High Sensitivity 16 pg/mL 3.0-78.0 [facility] Work Phone: Comment on above: Please Note: New Saira t Units and Gender Specific Reference Ranges. For more information see Policy Stat Procedure [place] High Sensitivity Troponin (TNIH) and attachments. Estimated Creatinine Clearance Calc 34.18 ml/min [facility] Work Phone: Estimated GFR (MDRD) Amer 47 mL/min >60 [facility] Work Phone: Comment on above: GFR Calc Estimated GFR (MDRD) Non-Af Amer 39 mL/min >60 [facility] Work Phone: Comment on above: Non- GFR Calc Platelets bldon 01-29-2022 Platelets (Bld) [#/Vol] 200 10*3/uL 150-450 [facility] Work Phone: Serum or plasma calcium aric urement (mass/volume)on 01-29-2022 Calcium [Mass/Vol] 8.7 mg/dL 8.5-10.1 [facility] r [facility] Work Phone: Serum or plasma creatinine m easurement (mass/volume)on 01-29-2022 Creatinine [Mass/Vol] 1.78 mg/dL 0.70-1.30 [facility] Work Phone: Comment on above: The validity of the calculated GFR & GFRAA in patients over 70 years has not been determined. Clinical correlation is essential. Serum or plasma urea nitroge n measurement (mass/volume)on 01-29-2022 Urea nitrogen [Mass/Vol] 17 mg/dL 7-18 [facility] Work Phone: Thin prep Papanicolaou smear with manual screeningon 01-29-2022 Thin prep Papanicolaou smear with manual screening 7 5-15 [facility] Work Phone: Absolute lymphocyte counton 10-17-2021 Lymphocytes Auto (Unsp spec) [#/Vol] 1.85 10*3/uL 0.83-4.51 [facility] Work Phone: Basophil percentageon 2021 Basophils/100 WBC (Bld) 0.8 % 0-1 [facility] Work Phone: Eosinophils/100 WBC (Bld) 5.2 % 0-5 [facility] Work Phone: Neutrophils (Bld) [#/Vol] 3.2 10*3/uL 2.0-7.7 [facility] Work Phone: Neutrophils/100 WBC (Bld) 53.6 % 47-70 [facility] Work Phone: WBC (Bld) [#/Vol] 6.0 10*3/uL 4.4-11.0 [facility] Work Phone: Bilirubin [Mass/Vol] 0.70 mg/dL 0.20-1.00 [facility] Work Phone: Comment on above: For patients on eltr ombopag therapy, use of Dimension [place] TBIL is not recommended. Chloride [Moles/Vol] 111 mmol/L 98-107 [facility] Work Phone: Glucose [Mass/Vol] 93 mg/dL 74-106 [facility] Work Phone: Potassium [Moles/Vol] 4.3 mmol/L 3.5-5.1 [facility] Work Phone: Protein [Mass/Vol] 7.5 g/dL 6.4-8.2 [facility] Work Phone: Sodium [Moles/Vol] 138 mmol/L 136-145 [facility] Work Phone: Blood erythrocytes count (nu mber/volume)on 10-17-2021 RBC (Bld) [#/Vol] 5.81 10*6/uL 4.6-6.2 [facility] Work Phone: Blood hemoglobin measurement (mass/volume)on 10-17-2021 Hemoglobin (Bld) [Mass/Vol] 17.2 g/dL 13.0-16.5 [facility] Work Phone: Blood lymphocytes/100 leukoc yteson 10-17-2021 Lymphocytes/100 WBC (Bld) 31.0 % 19-41 [facility] Work Phone: Blood monocytes/100 leukocyt eson 10-17-2021 Monocytes/100 WBC (Bld) 9.2 % 0-10 [facility] Work Phone: Blood platelet mean volumeon 10-17-2021 Platelet mean volume (Bld) [Entitic vol] 10.2 fL 6.2-12.0 [facility] Work Phone: Determination of erythrocyte mean corpuscular volume (MCV)on 10-17-2021 MCV (RBC) [Entitic vol] 87.1 fL 80-94 [facility] Work Phone: Erythrocyte sedimentation ra diann 10-17-2021 ESR (Bld) [Velocity] 13 mm/h 0-20 [facility] Work Phone: Hematocrit Auto (Bld) [Volum e fraction]on 10-17-2021 Hematocrit (Bld) [Volume fraction] 50.6 % 40-54 [facility] Work Phone: Laboratory - Chemistry and C hemistry - challengeon 10-17-2021 ALP [Catalytic activity/Vol] 73 U/L 45-117 [facility] Work Phone: ALT [Catalytic activity/Vol] 27 U/L 16-61 [facility] Work Phone: CO2 [Moles/Vol] 21.0 mmol/L 21.0-32.0 [facility] Work Phone: Globulin (S) [Mass/Vol] 3.9 g/dL 2.2-4.2 [facility] Work Phone: Urea nitrogen/Creatinine [Mass ratio] 14.2 mg/mg 10-20 [facility] Work Phone: Laboratory - Hematology and Cell countson 10-17-2021 Erythrocyte distribution width (RBC) [Entitic vol] 40.5 fL 35.1-43.9 [facility] Work Phone: Erythrocyte distribution width (RBC) [Ratio] 12.9 % 11.6-14.6 [facility] Work Phone: Immature granulocytes/100 WBC (Bld) 0.200 % 0.0-0.9 [facility] Work Phone: Comment on above: IG% - Immature Granu locytes (promyelocytes, myelocytes and metamyelocytes) > 1% indicates that a LEFT SHIFT is Present. MCH (RBC) [Entitic mass] 29.6 pg 27.0-32.0 [facility] Work Phone: Nucleated RBC/100 WBC (Bld) [Ratio] 0 % 0-5 [facility] Work Phone: MCHC Auto (RBC) [Mass/Vol]on 10-17-2021 MCHC (RBC) [Mass/Vol] 34.0 g/dL 32-36 [facility] Work Phone: No Panel Informationon 10-17 Estimated GFR (MDRD) Amer 50 mL/min >60 [facility] Work Phone: Comment on above: GFR Calc Estimated GFR (MDRD) Non-Af Amer 42 mL/min >60 [facility] Work Phone: Comment on above: Non- GFR Calc Platelets bldon 10-17-2021 Platelets (Bld) [#/Vol] 223 10*3/uL 150-450 [facility] Work Phone: Serum or plasma C reactive p rotein measurement (mass/volume)on 10-17-2021 CRP [Mass/Vol] 4.66 mg/L 0.0-3.0 [facility] Work Phone: Comment on above: C-Reactive Protein ( CRP) provides useful information for thediagnosis, therapy and monitoring of inflammatory processesand associated diseases. For the evaluation of Relative Riskfor Cardiovascular Disease, a High Sensitivity CRP (HSCRP)should be ordered. Serum or plasma albumin aric urement (mass/volume)on 10-17-2021 Albumin [Mass/Vol] 3.6 g/dL 3.2-5.0 [facility] Work Phone: Serum or plasma albumin/glob ulin mass ratioon 10-17-2021 Albumin/Globulin [Mass ratio] 0.9 {ratio} 0.9-2.4 [facility] Work Phone: Serum or plasma calcium aric urement (mass/volume)on 10-17-2021 Calcium [Mass/Vol] 8.7 mg/dL 8.5-10.1 [facility] Work Phone: Serum or plasma creatinine m easurement (mass/volume)on 10-17-2021 Creatinine [Mass/Vol] 1.69 mg/dL 0.70-1.30 [facility] Work Phone: Comment on above: The validity of the calculated GFR & GFRAA in patients over 70 years has not been determined. Clinical correlation is essential. Serum or plasma urea nitroge n measurement (mass/volume)on 10-17-2021 Urea nitrogen [Mass/Vol] 24 mg/dL 7-18 [facility] Work Phone: Thin prep Papanicolaou smear with manual screeningon 10-17-2021 Thin prep Papanicolaou smear with manual screening 19 U/L 15-37 [facility] Work Phone: Thin prep Papanicolaou smear with manual screening 6 5-15 [facility] Work Phone: Rapid Strep Test, Office ([phone])Ordered By: Amina Elam on 08-29-2021 S. pyogenes Ag EIA Ql (Throat) Negative Normal [facility]; [facility] Work Phone: THROAT CULTURE ([id number])Ordere d By: Wire Bound Box Machine Operator on 08-29-2021 Bacteria identified Respiratory culture Nom (Unsp spec) Final report Normal [facility]; [facility] Work Phone: Comment on above: PATIENT NOT FASTINGP ERFORMED BY: AMY GraphLabAd[facility] [id number] Information: SRC:TH Bacteria identified Respiratory culture Nom (Unsp spec) RRF Normal [facility]; [facility] Work Phone: Comment on above: Routine respiratory giorgio PATIENT NOT FASTINGP ERFORMED BY: DrNaturalHealingAd[facility] [id number] Information: SRC:TH No Panel Informationon 08-14 POC SARS CoV-2 Antigen Positive [facility] Work Phone: Laboratory - Microbiology an d Antimicrobial susceptibilityon 07-12-2021 SARS-CoV-2 (COVID-19) RNA RIVKA+probe Ql (Unsp spec) Not detected [facility] Work Phone: No Panel Informationon 07-12 POC Nasal Swab Influenza A,B Not detected [facility] Work Phone: POC Nasal Swab RSV Not detected [facility] Work Phone: POTASSIUM SERUM ([id number])Order ed By: Wire Bound Box Machine Operator on 04-14-2021 Potassium [Moles/Vol] 4.9 mmol/L Normal 3.5-5.2 [facility] prehensive Internal Medicine; [facility] Work Phone: Comment on above: Test(s) [id number]-[id number]- CoV-2 Antibody, IgGhas not been FDA cleared [...] any otherviruses or pathogens.PATIENT NOT FASTINGPERFORMED BY: [facility]6370 [facility] [id number] SARS-CoV-2 Antibody, IgGOrde red By: Wire Bound Box Machine Operator on 04-14-2021 SARS-CoV-2 Antibody, IgG Negative Normal [facility]; [facility] Work Phone: Comment on above: This sample does not contain detectable SARS-CoV-2 IgG antibodies.This negative result does not rule out SARS-CoV-2 infection.Correlation with epidemiologic risk factors and other clinical andlaboratory findings is recommended. Serologic results should not beused as the sole basis to diagnose or exclude recent [id number].This assay was performed using the [employer] Liaison(R)SARS-CoV-2 S1/S2 IgG assay.This assay detects antibodies against SARS-CoV-2 spike proteinincluding the receptor binding domain (RBD). Test(s) [id number]- CoV-2 Antibody, IgGhas not been FDA cleared [...] any otherviruses or pathogens.PATIENT NOT FASTINGPERFORMED BY: [facility]6370 [facility] [id number] CALCIFEDIOL ([id number])Ordered B y: Wire Bound Box Machine Operator on 03-24-2021 25-hydroxyvitamin D [Mass/Vol] 38.6 ng/mL Normal 30.0-100.0 [facility]; [facility] Work Phone: Comment on above: Vitamin D deficiency has been defined by the [place] [employer] and an Endocrine Society practice guideline as alevel of serum 25-OH vitamin D less than 20 ng/mL (1,2).The Endocrine Society went on to further define vitamin Dinsufficiency as a level between 21 and 29 ng/mL (2).1. IOM ([place] [employer]). 2010. Dietary reference intakes for calcium and D. [place]: The National Academies Press.2. Meme MF, Lian NC, Donald HERNANDEZ, et al. Evaluation, treatment, and prevention of vitamin D deficiency: an Endocrine Society clinical practice guideline. JCEM. 2010; 96(7):1911-30. Test(s) 959304-UYN-T ; 906113-ILK-X; 590049-Nguaedslkfemx; 000276-Ltsfdtfiiix, Total; 947392-LEQ-F (Total); 107066-Gwvsh LDL-P; 616500-JCL Size; 869614-HH-CD Scorewas developed and its performance characteristics determinedby [facility]. It has not been cleared or approved by the Foodand Drug Administration.PATIENT WAS FASTINGPERFORMED BY: LC [employer] [id number] BY: [employer]rp Gvsueg7721 [facility] [id number] METABOLIC PANEL, COMPREHENSI VE (93753)Ordered By: Wire Bound Box Machine Operator on 03-24-2021 Albumin [Mass/Vol] 4.0 g/dL Normal 3.7-4.7 [facility] Internal Medicine; [facility] Work Phone: Comment on above: Test(s) 651110-JNC-S ; 938084-BZW-L; 280387-Jbphfxorzwofs; 501090-Fpolukuexqg, Total; 161095-RVS-S (Total); 333148-Cwsaf LDL-P; 198191-WLT Size; 245484-GD-CD Scorewas developed and its performance characteristics determinedby [employer]. It has not been cleared or approved by the Foodand Drug Administration.PATIENT WAS FASTINGPERFORMED BY: Ramamia [address] [id number] BY: [employer]6370 [facility] [id number] Albumin/Globulin [Mass ratio] 1.8 {ratio} Normal 1.2-2.2 [facility]; [facility] Work Phone: Comment on above: Test(s) 153345-BWS-V ; 321145-GCK-D; 571816-Neydahpcljfum; 677947-Xotfolgdkzy, Total; 915922-ALS-L (Total); 958618-Obdws LDL-P; 700869-HEA Size; 342720-EH-WC Scorewas developed and its performance characteristics determinedby [employer]. It has not been cleared or approved by the Foodand Drug Administration.PATIENT WAS FASTINGPERFORMED BY: Ramamia [address] [id number] BY: [employer]6370 [facility] [id number] ALP [Catalytic activity/Vol] 57 U/L Normal 48-121 [facility]; [facility] Work Phone: Comment on above: Test(s) 935373-GQO-H ; 058749-UNF-Y; 287618-Wavgxabmsahdv; 029303-Ybkqvetynoy, Total; 463683-IRU-G (Total); 735562-Qvunz LDL-P; 008127-AHL Size; 114241-OK-UI Scorewas developed and its performance characteristics determinedby [employer]. It has not been cleared or approved by the Foodand Drug Administration.PATIENT WAS FASTINGPERFORMED BY: Ramamia [address] [id number] BY: GLOBALDRUM70 [facility] [id number] ALT [Catalytic activity/Vol] 17 U/L Normal 0-44 [facility]; [facility] Work Phone: Comment on above: Test(s) 640051-FFW-Z ; 725118-IHS-J; 068573-Rabdlliseqret; 662632-Ruhrqibvjoo, Total; 530911-CXU-A (Total); 675270-Dytpx LDL-P; 226373-ZEL Size; 305039-NV-WV Scorewas developed and its performance characteristics determinedby [employer]. It has not been cleared or approved by the Foodand Drug Administration.PATIENT WAS FASTINGPERFORMED BY: Ramamia [address] [id number] BY: GLOBALDRUM70 [facility] [id number] AST [Catalytic activity/Vol] 16 U/L Normal 0-40 [facility]; [facility] Work Phone: Comment on above: Test(s) 258234-ZSK-J ; 968829-NRX-R; 727009-Xouqnqfbdlkiu; 473408-Glernrxsaqg, Total; 218123-KKH-M (Total); 786287-Vpire LDL-P; 056351-HNP Size; 642690-IN-FR Scorewas developed and its performance characteristics determinedby [employer]. It has not been cleared or approved by the Foodand Drug Administration.PATIENT WAS FASTINGPERFORMED BY: Ramamia [address] [id number] BY: Halfpenny TechnologiesLea Regional Medical CenterFzhtcs5705 [facility] [id number] Bilirubin [Mass/Vol] 0.5 mg/dL Normal 0.0-1.2 [facility] Internal Medicine; [facility] Work Phone: Comment on above: Test(s) 953717-WUP-I ; 644377-OHH-A; 280610-Tojyzbsadqznz; 627252-Zopcoupyyyk, Total; 369973-MEK-R (Total); 779500-Wcsij LDL-P; 095814-WOL Size; 486228-LL-ER Scorewas developed and its performance characteristics determinedby [employer]. It has not been cleared or approved by the Foodand Drug Administration.PATIENT WAS FASTINGPERFORMED BY: Browsy [address] [id number] BY: [employer]NearMe6370 [facility] [id number] Calcium [Mass/Vol] 9.1 mg/dL Normal 8.6-10.2 [facility] Internal Medicine; [facility] Work Phone: Comment on above: Test(s) 566437-LFP-H ; 090701-NTP-F; 637952-Bbweqsinngzqn; 658375-Tqwqyglsctr, Total; 991056-HHS-H (Total); 314928-Rhijh LDL-P; 388035-TBJ Size; 890291-HQ-BG Scorewas developed and its performance characteristics determinedby [employer]. It has not been cleared or approved by the Foodand Drug Administration.PATIENT WAS FASTINGPERFORMED BY: [employer] [id number] BY: [employer] Eekyrj1965 [facility] [id number] Chloride [Moles/Vol] 106 mmol/L Normal 96-106 [facility] Internal Medicine; [facility] Work Phone: Comment on above: Test(s) 354626-BHN-N ; 832874-MDK-R; 346427-Nklapkxbglxrc; 603276-Kitjmcvhyih, Total; 990694-NLT-N (Total); 457919-Tqzmj LDL-P; 333918-PJR Size; 498279-UW-XP Scorewas developed and its performance characteristics determinedby [employer]. It has not been cleared or approved by the Foodand Drug Administration.PATIENT WAS FASTINGPERFORMED BY: Ramamia [address] [id number] BY: GLOBALDRUM70 [address] [facility] [id number] CO2 [Moles/Vol] 24 mmol/L Normal 20-29 [facility] Internal Medicine; [facility] Work Phone: Comment on above: Test(s) 954152-NQO-X ; 748207-DSP-E; 991808-Spggakgiogfqj; 724235-Dxychupofdb, Total; 878054-UVN-J (Total); 598616-Jkdop LDL-P; 402814-JTK Size; 518216-OD-ZZ Scorewas developed and its performance characteristics determinedby [employer]. It has not been cleared or approved by the Foodand Drug Administration.PATIENT WAS FASTINGPERFORMED BY: Ramamia [address] [id number] BY: [employer]6370 [facility] [id number] Creatinine [Mass/Vol] 1.71 mg/dL Abnormal 0.76-1.27 [facility] [[email or web address]] Internal Medicine; [facility] Work Phone: Comment on above: Test(s) 458344-JAU-B ; 363859-OAZ-E; 458933-Liuimfxivzimk; 932517-Wqfpofagvle, Total; 691083-HIP-H (Total); 131276-Buqgz LDL-P; 709760-CGH Size; 900742-WW-RC Scorewas developed and its performance characteristics determinedby [employer]. It has not been cleared or approved by the Foodand Drug Administration.PATIENT WAS FASTINGPERFORMED BY: Ramamia [address] [id number] BY: [employer]6370 [facility] [id number] GFR/1.73 sq M.predicted among blacks CKD-EPI (S/P/Bld) [Vol rate/Area] 43 mL/min/1.73 Abnormal [facility]; [facility] Work Phone: Comment on above: [facility] currently reports eGFR in compliance with the current recommendations of the National Kidney Foundation. [facility] will update reporting as new guidelines are published from the NKF-ASN Task force. Test(s) 939514-PDN-E ; 233720-KUO-N; 569943-Gspqbwxrxxbcd; 206477-Lzievpxfuzp, Total; 260306-TPC-W (Total); 575351-Yrwov LDL-P; 691062-FOJ Size; 178043-SF-JQ Scorewas developed and its performance characteristics determinedby [employer]. It has not been cleared or approved by the Foodand Drug Administration.PATIENT WAS FASTINGPERFORMED BY: [employer] [id number] BY: [employer]6370 [facility] [id number] GFR/1.73 sq M.predicted among non-blacks CKD-EPI (S/P/Bld) [Vol rate/Area] 37 mL/min/1.73 Abnormal [facility]; [facility] Work Phone: Comment on above: Test(s) 461092-QSV-C ; 430944-MNG-O; 444412-Uwqxeaxzixfnk; 839290-Fzjlupjlbxu, Total; 951595-ICI-E (Total); 867327-Zoiza LDL-P; 751403-EJC Size; 705128-UD-SW Scorewas developed and its performance characteristics determinedby [employer]. It has not been cleared or approved by the Foodand Drug Administration.PATIENT WAS FASTINGPERFORMED BY: Browsy [address] [id number] BY: [employer]6370 [facility] [id number] Globulin (S) [Mass/Vol] 2.2 g/dL Normal 1.5-4.5 [facility]; [facility] Work Phone: Comment on above: Test(s) 287261-IHT-Y ; 552661-IEC-S; 694862-Qvynihbslhcap; 894782-Dhppsdsckxm, Total; 896692-UNX-B (Total); 898961-Hllkc LDL-P; 502820-RWR Size; 829048-DL-ZZ Scorewas developed and its performance characteristics determinedby [employer]. It has not been cleared or approved by the Foodand Drug Administration.PATIENT WAS FASTINGPERFORMED BY: Ramamia [address] [id number] BY: GLOBALDRUM70 [facility] [id number] Glucose [Mass/Vol] 89 mg/dL Normal 65-99 [facility] Internal Medicine; [facility] Work Phone: Comment on above: Test(s) 170782-TUM-K ; 822208-FDF-W; 208670-Iqcbpzscaqrtr; 834023-Xoalojhppaq, Total; 616414-FAQ-M (Total); 449374-Rpqth LDL-P; 642504-ORO Size; 161314-MO-LH Scorewas developed and its performance characteristics determinedby [employer]. It has not been cleared or approved by the Foodand Drug Administration.PATIENT WAS FASTINGPERFORMED BY: Ramamia [address] [id number] BY: [employer]NearMe6370 [facility]iel [facility]ogamiAt[facility] [id number] Potassium [Moles/Vol] 5.4 mmol/L Abnormal 3.5-5.2 [facility] [[email or web address]] Internal Medicine; [facility] Work Phone: Comment on above: Test(s) 041094-EIV-M ; 157011-BTE-T; 674451-Yiejtbjmrvvxb; 628641-Cqxgjauwjtr, Total; 144571-LAC-L (Total); 147831-Tedaw LDL-P; 037207-BGQ Size; 648311-PG-EA Scorewas developed and its performance characteristics determinedby [employer]. It has not been cleared or approved by the Foodand Drug Administration.PATIENT WAS FASTINGPERFORMED BY: H3 [address] [id number] BY: [employer]Soft Nzeceo9855 [facility] [id number] Protein [Mass/Vol] 6.2 g/dL Normal 6.0-8.5 [facility] Internal Medicine; [facility] Work Phone: Comment on above: Test(s) 950112-BKZ-L ; 150965-DSM-A; 215063-Iqlbofskgdbng; 469925-Rylzdgnaaod, Total; 789543-PJK-D (Total); 255298-Nxbmm LDL-P; 315920-MZS Size; 902483-JD-IX Scorewas developed and its performance characteristics determinedby [employer]. It has not been cleared or approved by the Foodand Drug Administration.PATIENT WAS FASTINGPERFORMED BY: LC [employer] [id number] BY: [employer]NearMe6370 [facility] [id number] Sodium [Moles/Vol] 142 mmol/L Normal 134-144 [facility] Internal Medicine; [facility] Work Phone: Comment on above: Test(s) 978675-LMA-W ; 635692-OBD-Z; 206979-Cfwiiczsncpuj; 724228-Jetvjshpbja, Total; 858525-FPD-F (Total); 802567-Suqxk LDL-P; 107534-VCI Size; 653692-VN-GP Scorewas developed and its performance characteristics determinedby [employer]. It has not been cleared or approved by the Foodand Drug Administration.PATIENT WAS FASTINGPERFORMED BY: H[address] [id number] BY: [employer] Dfmiqa2496 [facility] [id number] Urea nitrogen [Mass/Vol] 26 mg/dL Normal 8-27 [facility]; [facility] Work Phone: Comment on above: Test(s) 551737-KAZ-Y ; 941840-WPI-E; 356519-Ljipyhxzuzqwg; 928278-Rbfgwagotae, Total; 182651-NXT-M (Total); 638818-Jyiji LDL-P; 406498-WTF Size; 076045-CS-QT Scorewas developed and its performance characteristics determinedby [employer]. It has not been cleared or approved by the Foodand Drug Administration.PATIENT WAS FASTINGPERFORMED BY: Ramamia [address] [id number] BY: GLOBALDRUM70 [facility] [id number] Urea nitrogen/Creatinine [Mass ratio] 15 mg/mg Normal 10-24 [facility]; [facility] Work Phone: Comment on above: Test(s) 976613-JWM-O ; 246549-NAF-R; 345269-Wpzaeugqhcmhm; 264459-Ycczkbayexz, Total; 710029-KBZ-K (Total); 439740-Agzoa LDL-P; 654996-UMW Size; 455368-LA-SW Scorewas developed and its performance characteristics determinedby [employer]. It has not been cleared or approved by the Foodand Drug Administration.PATIENT WAS FASTINGPERFORMED BY: Ramamia [address] [id number] BY: [employer]6370 [facility] [id number] MICROALB;CREAT RATION, RAND UR (59683)Ordered By: Wire Bound Box Machine Operator on 03-24-2021 Albumin DL <= 20 mg/L (U) [Mass/Vol] mg/dL Normal [facility]; [facility] Work Phone: Comment on above: Test(s) 817400-RVR-U ; 890603-VEI-E; 892132-Myyomedkutmqx; 357656-Nkdgszhhirx, Total; 125353-WMK-M (Total); 716609-Osbov LDL-P; 029078-PDS Size; 181047-AI-RR Scorewas developed and its performance characteristics determinedby [employer]. It has not been cleared or approved by the Foodand Drug Administration.PATIENT WAS FASTINGPERFORMED BY: LC [employer] [id number] BY: [employer]Soft Frbfrc4360 [facility] [id number] Albumin/Creatinine (U) [Mass ratio] <2 Normal 0-29 [facility]; [facility] Work Phone: Comment on above: Normal: 0 - 29 Moder ately increased: 30 - 300 Severely increased: >300 Test(s) 821124-MIV-E ; 613153-AER-D; 269416-Eacxvgqtjkevt; 422572-Umvejsebitp, Total; 176618-MGO-D (Total); 541289-Nbldh LDL-P; 733561-GLF Size; 911388-OW-FH Scorewas developed and its performance characteristics determinedby [employer]. It has not been cleared or approved by the Foodand Drug Administration.PATIENT WAS FASTINGPERFORMED BY: Ramamia [address] [id number] BY: [employer]6370 [facility] [id number] Creatinine (U) [Mass/Vol] 167.2 mg/dL Normal [facility]; [facility] Work Phone: Comment on above: Test(s) 607128-BIK-X ; 703477-VUY-I; 531053-Ptwkewjvbqcrb; 273547-Areaszjwpzg, Total; 045919-JDF-L (Total); 896488-Sagup LDL-P; 939291-TYY Size; 907756-KQ-KK Scorewas developed and its performance characteristics determinedby [employer]. It has not been cleared or approved by the Foodand Drug Administration.PATIENT WAS FASTINGPERFORMED BY: Ramamia [address] [id number] BY: VSoftSt. Francis Medical CenterXtqwhf1654 [facility] [id number] NMR Profile (61987)Ordered B y: Wire Bound Box Machine Operator on 03-24-2021 Cholesterol [Mass/Vol] 297 mg/dL Abnormal 100-199 [facility]; [facility] Work Phone: Comment on above: Test(s) 245998-EWE-W ; 334155-LHE-L; 085244-Qcmwmkzfbeqeo; 491534-Hyimivarood, Total; 363146-XZL-J (Total); 530955-Vlujx LDL-P; 328367-QUC Size; 545343-AS-DX Scorewas developed and its performance characteristics determinedby [employer]. It has not been cleared or approved by the Foodand Drug Administration.PATIENT WAS FASTINGPERFORMED BY: Ramamia [address] [id number] BY: GLOBALDRUM70 [facility] [id number] Lipoprotein.alpha [Moles/Vol] 28.2 umol/L Abnormal [facility]; [facility] Work Phone: Comment on above: Test(s) 988190-IAT-P ; 421655-LIQ-M; 979791-Wdjixshdbymrd; 014685-Sjkznrsbjpg, Total; 427012-WMO-B (Total); 349381-Duwss LDL-P; 371440-GLT Size; 675485-GE-FS Scorewas developed and its performance characteristics determinedby [employer]. It has not been cleared or approved by the Foodand Drug Administration.PATIENT WAS FASTINGPERFORMED BY: Ramamia [address] [id number] BY: GLOBALDRUM70 [facility] [id number] Lipoprotein.beta.subp article [Entitic length] 20.5 nm Abnormal [...] not afterLDL-P is taken into account. Test(s) 896357-LCM-E ; 698669-QOT-Z; 563033-Zqkvxmptfadjk; 029730-Hmuuzelwoor, Total; 938830-QHA-J (Total); 046973-Xxjoq LDL-P; 537649-NTN Size; 706881-GV-KP Scorewas developed and its performance characteristics determinedby [employer]. It has not been cleared or approved by the Foodand Drug Administration.PATIENT WAS FASTINGPERFORMED BY: LC [employer] [id number] BY: GLOBALDRUM70 [facility] [id number] Lipoprotein.beta.subp article [Moles/Vol] 3095 nmol/L Abnormal [facility] Internal Medicine; [facility] Work Phone: Comment on above: Low < 1000 Moderate 1000 - 1299 Borderline-High 1300 - 1599 High 1600 - 2000 Very High > 2000 Test(s) 667115-ICL-U ; 636546-ASU-E; 969505-Zsirnvflhlhhg; 956138-Tvtohngpzfv, Total; 376057-GPX-H (Total); 874123-Ryzhc LDL-P; 205660-QCJ Size; 643473-RT-FH Scorewas developed and its performance characteristics determinedby [employer]. It has not been cleared or approved by the Foodand Drug Administration.PATIENT WAS FASTINGPERFORMED BY: Ramamia [address] [id number] BY: [employer] [facility] [id number] Lipoprotein.beta.subp article.small [Moles/Vol] 1626 nmol/L Abnormal [facility]; [facility] Work Phone: Comment on above: Test(s) 793724-TTG-I ; 991194-YWA-J; 610783-Skrqryqfhwabq; 125589-Sojlnqfqvfl, Total; 692711-FOU-B (Total); 426833-Fiuwq LDL-P; 074049-OMH Size; 389836-CS-KY Scorewas developed and its performance characteristics determinedby [employer]. It has not been cleared or approved by the Foodand Drug Administration.PATIENT WAS FASTINGPERFORMED BY: LC [employer] [id number] BY: [employer] Iuccxd6561 [facility] [id number] Triglyceride [Mass/Vol] 191 mg/dL Abnormal 0-149 [facility]; [facility] Work Phone: Comment on above: Test(s) 700372-VXS-B ; 309714-PUZ-Z; 443125-Xcrvbsmtvxsbp; 764808-Acugngaaupr, Total; 351659-BAM-S (Total); 651612-Quvka LDL-P; 271757-DZA Size; 383910-JD-DE Scorewas developed and its performance characteristics determinedby [employer]. It has not been cleared or approved by the Foodand Drug Administration.PATIENT WAS FASTINGPERFORMED BY: [employer] [place] [address] [id number] BY: [employer] Xglkzu8933 [facility] [id number] NMR Profile (80951) 215 mg/dL Abnormal 0-99 [facility]; [facility] Work Phone: Comment on above: . Optimal < 100 Abov e optimal 100 - 129 Borderline 130 - 159 High 160 - 189 Very high > 189 . Test(s) 944506-QWC-L ; 411364-KYX-E; 057599-Peybsdzqvgbjp; 421026-Vvgjvplttse, Total; 711682-YDR-C (Total); 707920-Uikqx LDL-P; 579912-BYF Size; 519087-VW-JE Scorewas developed and its performance characteristics determinedby [employer]. It has not been cleared or approved by the Foodand Drug Administration.PATIENT WAS FASTINGPERFORMED BY: Ramamia [address] [id number] BY: GLOBALDRUM70 [facility] [id number] NMR Profile (97168) 45 mg/dL Normal [facility]; [facility] Work Phone: Comment on above: Test(s) 365150-RBR-I ; 012918-CZB-U; 393491-Xluszurunkfma; 300618-Siqfdcnchgd, Total; 685530-KQR-Z (Total); 838839-Hmxjn LDL-P; 714871-BFQ Size; 624560-UW-EP Scorewas developed and its performance characteristics determinedby [employer]. It has not been cleared or approved by the Foodand Drug Administration.PATIENT WAS FASTINGPERFORMED BY: Ramamia [address] [id number] BY: [employer]6370 [facility] [id number] TSH (THYROID STIMULATING HOR CHRISTIANO) (50891)Ordered By: Wire Bound Box Machine Operator on 03-24-2021 TSH Qn 1.610 {uIU/mL} Normal 0.450-4.50 0 [facility]; [facility] Work Phone: Comment on above: Test(s) 630723-UZN-X ; 544576-SYZ-K; 034099-Sxtdreiglhmqx; 588459-Qzvssizynaw, Total; 263214-XIO-U (Total); 128575-Clegb LDL-P; 544040-JTX Size; 488915-EX-BL Scorewas developed and its performance characteristics determinedby [employer]. It has not been cleared or approved by the Foodand Drug Administration.PATIENT WAS FASTINGPERFORMED BY: Ramamia [address] [id number] BY: GLOBALDRUM70 [facility] [id number] Metabolic Panel, Basic (8004 8)Ordered By: Wire Bound Box Machine Operator on 10-20-2020 Calcium [Mass/Vol] 9.4 mg/dL Normal 8.6-10.2 [facility] Internal Medicine; [facility] Work Phone: Comment on above: assure GFR is in BMP ; PATIENT NOT FASTINGPERFORMED BY: CB [facility] Tjusxz9968 Curiel OtogamiAtrium Health Stanly [id number] Chloride [Moles/Vol] 108 mmol/L Abnormal 96-106 [facility] rehensive Internal Medicine; [facility] Work Phone: Comment on above: assure GFR is in BMP ; PATIENT NOT FASTINGPERFORMED BY: CB [facility] Ayzlcg7134 Curiel OtogamiAtrium Health [facility] [id number] CO2 [Moles/Vol] 23 mmol/L Normal 20-29 [facility] Internal Medicine; [facility] Work Phone: Comment on above: assure GFR is in BMP ; PATIENT NOT FASTINGPERFORMED BY: CB [facility] Jkrpjc1384 Curiel OtogamiAtrium Health [facility] [id number] Creatinine [Mass/Vol] 1.55 mg/dL Abnormal 0.76-1.27 [facility]; [facility] Work Phone: Comment on above: assure GFR is in BMP ; PATIENT NOT FASTINGPERFORMED BY: CB [facility] Fgodmy0241 Curiel OtogamiAtrium Health Stanly [id number] GFR/1.73 sq M predicted among blacks CKD-EPI (S/P/Bld) [Vol rate/Area] 49 mL/min/1.73 Abnormal [facility]; [facility] Work Phone: Comment on above: assure GFR is in BMP ; PATIENT NOT FASTINGPERFORMED BY: CB [facility] Nwyvzt8633 Curiel OtogamiWakemed Cary Hospitalin [place] [id number] GFR/1.73 sq M predicted among non-blacks CKD-EPI (S/P/Bld) [Vol rate/Area] 42 mL/min/1.73 Abnormal [facility]; [facility] Work Phone: Comment on above: assure GFR is in BMP ; PATIENT NOT FASTINGPERFORMED BY: CB [facility] Fhyzku4054 Curiel RoadDublin [place] [id number] Glucose [Mass/Vol] 86 mg/dL Normal 65-99 [facility] Internal Medicine; [facility] Work Phone: Comment on above: assure GFR is in BMP ; PATIENT NOT FASTINGPERFORMED BY: CB [facility] Wzoevr7879 Curiel RoadDublin [place] [id number] Potassium [Moles/Vol] 5.1 mmol/L Normal 3.5-5.2 [facility] prehensive Internal Medicine; [facility] Work Phone: Comment on above: assure GFR is in BMP ; PATIENT NOT FASTINGPERFORMED BY: CB [facility] Ggszjh2937 Curiel RoadDublin [place] [id number] Sodium [Moles/Vol] 142 mmol/L Normal 134-144 [facility] Internal Medicine; [facility] Work Phone: Comment on above: assure GFR is in BMP ; PATIENT NOT FASTINGPERFORMED BY: CB [facility] Bjqwts6242 Curiel RoadDublin [place] [id number] Urea nitrogen [Mass/Vol] 25 mg/dL Normal 8-27 [facility] Internal Medicine; [facility] Work Phone: Comment on above: assure GFR is in BMP ; PATIENT NOT FASTINGPERFORMED BY: CB [facility] Figoem0502 [address]iel RoadDublin [place] [id number] Urea nitrogen/Creatinine [Mass ratio] 16 mg/mg Normal 10-24 [facility]; [facility] Work Phone: Comment on above: assure GFR is in BMP ; PATIENT NOT FASTINGPERFORMED BY: CB [facility] Fgjszi3716 [address] RoadDublin [place] [id number] CALCIFIDIOL (74218) VIT D 25 Ordered By: Wire Bound Box Machine Operator on 10-13-2020 25-Hydroxyvitamin D2+25-Hydroxyvitamin D3 [Mass/Vol] 53.7 ng/mL Normal 30.0-100.0 [facility]; [facility] Work Phone: Comment on above: Vitamin D deficiency has been defined by the [place] of[place]icine and an Endocrine Society practice guideline as alevel of serum 25-OH vitamin D less than 20 ng/mL (1,2).The Endocrine Society went on to further define vitamin Dinsufficiency as a level between 21 and 29 ng/mL (2).1. IOM ([place] of Medicine). 2010. Dietary reference intakes for calcium and D. [place]: The National Academies Press.2. Meme MF, Lian ANDERSON, Donald HERNANDEZ, et al. Evaluation, treatment, and prevention of vitamin D deficiency: an Endocrine Society clinical practice guideline. JCEM. 2010; 96(7):1911-30. PATIENT WAS FASTINGP ERFORMED BY: CB [facility] Jogxbv4115 [address] RoadDublin [place] [id number] CBC W/AUTO DIFF WBC (02195)O rdered By: Wire Bound Box Machine Operator on 10-13-2020 Basophils (Bld) [#/Vol] 0.1 {x10E3/uL} Normal 0.0-0.2 [facility]; [facility] Work Phone: Comment on above: PATIENT WAS FASTINGP ERFORMED BY: CB [facility] Vpoxye7038 [address] RoadDublin [place] [id number] Basophils (Bld) [#/Vol] 0.1 10*3/uL Normal 0.0-0.2 [facility]; [facility] Work Phone: Comment on above: PATIENT WAS FASTINGP ERFORMED BY: CB [facility] Mexisg5170 [address] RoadDublin [place] [id number] Basophils/100 WBC (Bld) 1 % Normal [facility]; [facility] Work Phone: Comment on above: PATIENT WAS FASTINGP ERFORMED BY: CB [facility] Ucpqul3194 [address] RoadDublin [place] [id number] Eosinophils (Bld) [#/Vol] 0.2 {x10E3/uL} Normal 0.0-0.4 [facility]; [facility] Work Phone: Comment on above: PATIENT WAS FASTINGP ERFORMED BY: CB [facility] Ksmtub6394 [address] RoadDublin [place] [id number] Eosinophils (Bld) [#/Vol] 0.2 10*3/uL Normal 0.0-0.4 [facility]; [facility] Work Phone: Comment on above: PATIENT WAS FASTINGP ERFORMED BY: AMY Vale[address] [facility] [id number] Eosinophils/100 WBC (Bld) 4 % Normal [facility]; [facility] Work Phone: Comment on above: PATIENT WAS FASTINGP ERFORMED BY: LabSarah Ville [id number] [facility] [id number] Erythrocyte distribution width (RBC) [Ratio] 13.1 % Normal 11.6-15.4 [facility]; [facility] Work Phone: Comment on above: PATIENT WAS FASTINGP ERFORMED BY: [facility] Agmoeg2222 [facility] [id number] Hematocrit (Bld) [Volume fraction] 45.9 % Normal 37.5-51.0 [facility]; [facility] Work Phone: Comment on above: PATIENT WAS FASTINGP ERFORMED BY: [facility] Srksqe4982 [facility] [id number] Hemoglobin (Bld) [Mass/Vol] 16.1 g/dL Normal 13.0-17.7 [facility]; [facility] Work Phone: Comment on above: PATIENT WAS FASTINGP ERFORMED BY: LabSarah [place]ille [id number] [facility] [id number] Immature granulocytes (Bld) [#/Vol] 0.0 {x10E3/uL} Normal 0.0-0.1 [facility]; [facility] Work Phone: Comment on above: PATIENT WAS FASTINGP ERFORMED BY: LabCo Legwqi1756 [facility] [id number] Immature granulocytes (Bld) [#/Vol] 0.0 10*3/uL Normal 0.0-0.1 [facility]; [facility] Work Phone: Comment on above: PATIENT WAS FASTINGP ERFORMED BY: [facility] [facility] [id number] Immature granulocytes/100 WBC (Bld) 0 % Normal [facility]; [facility] Work Phone: Comment on above: PATIENT WAS FASTINGP ERFORMED BY: [facility]6370 [facility] [id number] Lymphocytes (Bld) [#/Vol] 2.0 {x10E3/uL} Normal 0.7-3.1 [facility]; [facility] Work Phone: Comment on above: PATIENT WAS FASTINGP ERFORMED BY: [place] [id number] [facility] [id number] Lymphocytes (Bld) [#/Vol] 2.0 10*3/uL Normal 0.7-3.1 [facility]; [facility] Work Phone: Comment on above: PATIENT WAS FASTINGP ERFORMED BY: [place] 0462870 [facility] [id number] Lymphocytes/100 WBC (Bld) 38 % Normal [facility]; [facility] Work Phone: Comment on above: PATIENT WAS FASTINGP ERFORMED BY: [facility]6370 [facility] [id number] MCH (RBC) [Entitic mass] 30.3 pg Normal 26.6-33.0 [facility]; [facility] Work Phone: Comment on above: PATIENT WAS FASTINGP ERFORMED BY: [facility]6370 [facility] [id number] MCHC (RBC) [Mass/Vol] 35.1 g/dL Normal 31.5-35.7 [facility] prehensive Internal Medicine; [facility] Work Phone: Comment on above: PATIENT WAS FASTINGP ERFORMED BY: [facility]6370 [facility] [id number] MCV (RBC) [Entitic vol] 86 fL Normal 79-97 [facility]; [facility] Work Phone: Comment on above: PATIENT WAS FASTINGP ERFORMED BY: CB [facility] Gopmob9452 [address] RoadDublin [place] [id number] Monocytes (Bld) [#/Vol] 0.5 {x10E3/uL} Normal 0.1-0.9 [facility]; [facility] Work Phone: Comment on above: PATIENT WAS FASTINGP ERFORMED BY: CB [facility] Yzkefi6922 [address] RoadDublin [place] [id number] Monocytes (Bld) [#/Vol] 0.5 10*3/uL Normal 0.1-0.9 [facility]; [facility] Work Phone: Comment on above: PATIENT WAS FASTINGP ERFORMED BY: CB [facility] Vwqymt0243 [address] RoadDublin [place] [id number] Monocytes/100 WBC (Bld) 10 % Normal [facility]; [facility] Work Phone: Comment on above: PATIENT WAS FASTINGP ERFORMED BY: CB [facility] Rsujed1018 [address] RoadDublin [place] [id number] Neutrophils (Bld) [#/Vol] 2.5 {x10E3/uL} Normal 1.4-7.0 [facility]; [facility] Work Phone: Comment on above: PATIENT WAS FASTINGP ERFORMED BY: [facility] Ukxkle4601 [address] RoadDublin [place] [id number] Neutrophils (Bld) [#/Vol] 2.5 10*3/uL Normal 1.4-7.0 [facility]; [facility] Work Phone: Comment on above: PATIENT WAS FASTINGP ERFORMED BY: CB [facility] Mnceoy6685 [address] RoadDublin [place] [id number] Neutrophils/100 WBC (Bld) 47 % Normal [facility]; [facility] Work Phone: Comment on above: PATIENT WAS FASTINGP ERFORMED BY: CB [facility] Lnptqe5578 [address] RoadDublin [place] [id number] Platelets (Bld) [#/Vol] 193 {x10E3/uL} Normal 150-450 [facility]; [facility] Work Phone: Comment on above: PATIENT WAS FASTINGP ERFORMED BY: AMY LabJaiden Vale6370 [address] RoadDublin [place] [id number] Platelets (Bld) [#/Vol] 193 10*3/uL Normal 150-450 [facility]; [facility] Work Phone: Comment on above: PATIENT WAS FASTINGP ERFORMED BY: AMY LabCoabida PerezJjztqt6721 [address]iel RoadDublin [place] [id number] RBC (Bld) [#/Vol] 5.31 {x10E6/uL} Normal 4.14-5.80 [facility] Internal Medicine; [facility] Work Phone: Comment on above: PATIENT WAS FASTINGP ERFORMED BY: AMY LabJaiden Vale6[address] RoadDublin [place] [id number] RBC (Bld) [#/Vol] 5.31 10*6/uL Normal 4.14-5.80 [facility]; [facility] Work Phone: Comment on above: PATIENT WAS FASTINGP ERFORMED BY: AMY Vale6370 [address]Dublin [place] [id number] WBC (Bld) [#/Vol] 5.3 {x10E3/uL} Normal 3.4-10.8 [facility]; [facility] Work Phone: Comment on above: PATIENT WAS FASTINGP ERFORMED BY: AMY LabJaiden PerezSvfkfj3535 [address] RoadDublin [place] [id number] WBC (Bld) [#/Vol] 5.3 10*3/uL Normal 3.4-10.8 [facility] Internal Medicine; [facility] Work Phone: Comment on above: PATIENT WAS FASTINGP ERFORMED BY: AMY [facility] Aicfai4491 [address] RoadDublin [place] [id number] LIPID PANEL (98466)Ordered B y: Wire Bound Box Machine Operator on 10-13-2020 Cholesterol [Mass/Vol] 303 mg/dL Abnormal 100-199 [facility]; [facility] Work Phone: Comment on above: PATIENT WAS FASTINGP ERFORMED BY: AMY Vale6370 [facility] [id number] Cholesterol in HDL [Mass/Vol] 42 mg/dL Normal [facility]; [facility] Work Phone: Comment on above: PATIENT WAS FASTINGP ERFORMED BY: AMY Kirkpatrick70 [facility] [id number] Cholesterol in LDL/Cholesterol in HDL [Mass ratio] 5.3 {ratio} Abnormal 0.0-3.6 [facility]; [facility] Work Phone: Comment on above: LDL/HDL Ratio Men Wo men 1/2 Avg.Risk 1.0 1.5 Avg.Risk 3.6 3.2 2X Avg.Risk 6.2 5.0 3X Avg.Risk 8.0 6.1 PATIENT WAS FASTINGP ERFORMED BY: AMY Vale6370 [facility] [id number] Triglyceride [Mass/Vol] 195 mg/dL Abnormal 0-149 [facility]; [facility] Work Phone: Comment on above: PATIENT WAS FASTINGP ERFORMED BY: AMY Vale6370 [facility] [id number] LIPID PANEL (64999) 223 mg/dL Abnormal 0-99 Compr ensive Internal Medicine; [facility] Work Phone: Comment on above: PATIENT WAS FASTINGP ERFORMED BY: AMY Vale6370 [facility] [id number] LIPID PANEL (97836) 38 mg/dL Normal 5-40 Compr ensive [facility]; [facility] Work Phone: Comment on above: PATIENT WAS FASTINGP ERFORMED BY: AMY Vale6370 [facility] [id number] LIPID PANEL (88308) 5.3 {ratio} Abnormal 0.0-3.6 [facility]; [facility] Work Phone: Comment on above: LDL/HDL Ratio Men Wo men 1/2 Avg.Risk 1.0 1.5 Avg.Risk 3.6 3.2 2X Avg.Risk 6.2 5.0 3X Avg.Risk 8.0 6.1 PATIENT WAS FASTINGP ERFORMED BY: LabCo Qbmfab29[address] [facility] Hospitalblin [place] [id number] METABOLIC PANEL, COMPREHENSI VE (20877)Ordered By: Wire Bound Box Machine Operator on 10-13-2020 Albumin [Mass/Vol] 3.9 g/dL Normal 3.7-4.7 [facility] Internal [facility]; [facility] Work Phone: Comment on above: PATIENT WAS FASTINGP ERFORMED BY: [facility] Vwpfms3916 [address] [facility] [place] [id number] Albumin/Globulin [Mass ratio] 1.9 {ratio} Normal 1.2-2.2 [facility]; [facility] Work Phone: Comment on above: PATIENT WAS FASTINGP ERFORMED BY: [facility] Wklloz1720 [address] [facility]in [place] [id number] ALP [Catalytic activity/Vol] 62 [iU]/L Normal 39-117 [facility]; [facility] Work Phone: Comment on above: PATIENT WAS FASTINGP ERFORMED BY: [facility]6[address] [facility]in [place] [id number] ALP [Catalytic activity/Vol] 62 U/L Normal 39-117 [facility]; [facility] Work Phone: Comment on above: PATIENT WAS FASTINGP ERFORMED BY: [facility] Hxwckf9168 [address] [facility]in [place] [id number] ALT [Catalytic activity/Vol] 14 [iU]/L Normal 0-44 [facility]; [facility] Work Phone: Comment on above: PATIENT WAS FASTINGP ERFORMED BY: [facility] Yvqqnj9326 [address] [facility] Hospitalblin [place] [id number] ALT [Catalytic activity/Vol] 14 U/L Normal 0-44 [facility]; [facility] Work Phone: Comment on above: PATIENT WAS FASTINGP ERFORMED BY: CB [facility] Ovzfvk0327 [address] RoadDublin [place] [id number] AST [Catalytic activity/Vol] 14 [iU]/L Normal 0-40 [facility]; [facility] Work Phone: Comment on above: PATIENT WAS FASTINGP ERFORMED BY: CB [facility] Jbbyyg9375 [address] RoadDublin [place] [id number] AST [Catalytic activity/Vol] 14 U/L Normal 0-40 [facility]; [facility] Work Phone: Comment on above: PATIENT WAS FASTINGP ERFORMED BY: [facility] Qchduh9805 [address] RoadDublin [place] [id number] Bilirubin [Mass/Vol] 0.5 mg/dL Normal 0.0-1.2 Comp rehensive Internal Medicine; [facility] Work Phone: Comment on above: PATIENT WAS FASTINGP ERFORMED BY: [facility] Voyohi5267 [address] RoadDublin [place] [id number] Calcium [Mass/Vol] 8.6 mg/dL Normal 8.6-10.2 [facility] Internal Medicine; [facility] Work Phone: Comment on above: PATIENT WAS FASTINGP ERFORMED BY: [facility] Igqizt7654 [address] RoadDublin [place] [id number] Chloride [Moles/Vol] 108 mmol/L Abnormal 96-106 Comp rehensive Internal Medicine; [facility] Work Phone: Comment on above: PATIENT WAS FASTINGP ERFORMED BY: [facility] Thedqf4901 [address] RoadDublin [place] [id number] CO2 [Moles/Vol] 22 mmol/L Normal 20-29 [facility] Internal Medicine; [facility] Work Phone: Comment on above: PATIENT WAS FASTINGP ERFORMED BY: CB [facility] Ocfkdc3738 [address] RoadDublin [place] [id number] Creatinine [Mass/Vol] 1.67 mg/dL Abnormal 0.76-1.27 [facility] prehensive Internal Medicine; [facility] Work Phone: Comment on above: PATIENT WAS FASTINGP ERFORMED BY: CB [facility] Xkpeva7642 [address] RoadDublin [place] [id number] GFR/1.73 sq M predicted among blacks CKD-EPI (S/P/Bld) [Vol rate/Area] 44 mL/min/1.73 Abnormal [facility]; [facility] Work Phone: Comment on above: PATIENT WAS FASTINGP ERFORMED BY: CB [facility] Gliqpq4795 [address] RoadDublin [place] [id number] GFR/1.73 sq M predicted among non-blacks CKD-EPI (S/P/Bld) [Vol rate/Area] 38 mL/min/1.73 Abnormal [facility]; [facility] Work Phone: Comment on above: PATIENT WAS FASTINGP ERFORMED BY: CB [facility] Wzxzon4656 [address] RoadDublin [place] [id number] Globulin (S) [Mass/Vol] 2.1 g/dL Normal 1.5-4.5 [facility]; [facility] Work Phone: Comment on above: PATIENT WAS FASTINGP ERFORMED BY: CB [facility] Vxfejq7647 [address] RoadDublin [place] [id number] Glucose [Mass/Vol] 87 mg/dL Normal 65-99 [facility] Internal Medicine; [facility] Work Phone: Comment on above: PATIENT WAS FASTINGP ERFORMED BY: CB [facility] Ebhuzg2989 [address] RoadDublin [place] [id number] Potassium [Moles/Vol] 5.1 mmol/L Normal 3.5-5.2 [facility] prehensive Internal Medicine; [facility] Work Phone: Comment on above: PATIENT WAS FASTINGP ERFORMED BY: CB [facility] Zcdbbh4458 [address] RoadDublin [place] [id number] Protein [Mass/Vol] 6.0 g/dL Normal 6.0-8.5 [facility] Internal [facility]; [facility] Work Phone: Comment on above: PATIENT WAS FASTINGP ERFORMED BY: CB [facility] Sfqflg7661 [address] RoadDublin [place] [id number] Sodium [Moles/Vol] 142 mmol/L Normal 134-144 [facility] Internal Medicine; [facility] Work Phone: Comment on above: PATIENT WAS FASTINGP ERFORMED BY: AMY [facility] Qhdpdk4875 [address] RoadDublin [place] [id number] Urea nitrogen [Mass/Vol] 22 mg/dL Normal 8-27 [facility]; [facility] Work Phone: Comment on above: PATIENT WAS FASTINGP ERFORMED BY: AMY [facility] Wdvbik2909 [address] RoadDublin [place] [id number] Urea nitrogen/Creatinine [Mass ratio] 13 mg/mg Normal 10-24 [facility]; [facility] Work Phone: Comment on above: PATIENT WAS FASTINGP ERFORMED BY: AMY [facility] Rptxwn5689 [address] RoadDublin [place] [id number] MICROALBUMINOrdered By: I-frontdesk Supervisor Frame Assembly on 10-13-2020 Albumin DL <= 20 mg/L (U) [Mass/Vol] 4.0 ug/mL Normal [facility]; [facility] Work Phone: Comment on above: PATIENT WAS FASTINGP ERFORMED BY: AMY LabCoabida Noauir0895 [address] RoadDublin [place] [id number] Albumin/Creatinine (U) [Mass ratio] 2 {mg/g_creat} Normal 0-29 [facility]; [facility] Work Phone: Comment on above: Normal: 0 - 29 Moder ately increased: 30 - 300 Severely increased: >300 PATIENT WAS FASTINGP ERFORMED BY: AMY [facility] Bbphfv6452 [address] RoadDublin [place] [id number] Creatinine (U) [Mass/Vol] 184.3 mg/dL Normal [facility]; [facility] Work Phone: Comment on above: PATIENT WAS FASTINGP ERFORMED BY: AMY [facility] Vuwytv7066 [address] RoadDublin [place] [id number] TSH ([id number])Ordered By: viblast m Supervisor Frame Assembly on 10-13-2020 TSH Qn 1.920 {uIU/mL} Normal 0.450-4.50 0 [facility]; [facility] Work Phone: Comment on above: PATIENT WAS FASTINGP ERFORMED BY: AMY ShantaJaiden PerezRkavdj6125 [address] RoadDublin [place] [id number] URINALYSIS, W/ MICRO (02059) Ordered By: Wire Bound Box Machine Operator on 10-13-2020 Appearance (U) Clear Normal Comprehens tri Internal Medicine; [facility] Work Phone: Comment on above: PATIENT WAS FASTINGP ERFORMED BY: AMY Perezlin6370 [address] RoadDublin [place] [id number] Bilirubin Ql (U) Negative Normal Comprehe nsive Internal Medicine; [facility] Work Phone: Comment on above: PATIENT WAS FASTINGP ERFORMED BY: AMY LabJaiden PerezJjzycl2813 [address] RoadDublin [place] [id number] Bilirubin Ql (U) Negative Normal Comprehe nsive Internal Medicine; [facility] Work Phone: Comment on above: PATIENT WAS FASTINGP ERFORMED BY: AMY LabJaiden PerezKhmjuv4160 [address] RoadDublin [place] [id number] Color (U) Yellow Normal [facility]; [facility] Work Phone: Comment on above: PATIENT WAS FASTINGP ERFORMED BY: AMY Perezlin6370 [address] RoadDublin [place] [id number] Glucose Ql (U) Negative Normal Comprehens tri [facility]; [facility] Work Phone: Comment on above: PATIENT WAS FASTINGP ERFORMED BY: AMY LabJaiden PerezBqcatw0534 [address] RoadDublin [place] [id number] Glucose Ql (U) Negative Normal Comprehens tir Internal Medicine; [facility] Work Phone: Comment on above: PATIENT WAS FASTINGP ERFORMED BY: AMY LabCoabida PerezRzdoth0604 [address] RoadDublin [place] [id number] Hemoglobin Ql (U) Negative Normal Compreh ensive Internal Medicine; [facility] Work Phone: Comment on above: PATIENT WAS FASTINGP ERFORMED BY: AMY [facility] Ctiune6400 [address] RoadDublin [place] [id number] Hemoglobin Ql (U) Negative Normal Compreh ensive Internal Medicine; [facility] Work Phone: Comment on above: PATIENT WAS FASTINGP ERFORMED BY: AMY [facility] Yvtbqa5853 [address] RoadDublin [place] [id number] Ketones Ql (U) Negative Normal Comprehens tri [facility] Medicine; [facility] Work Phone: Comment on above: PATIENT WAS FASTINGP ERFORMED BY: AMY [facility] Icsnky4518 [address] RoadDublin [place] [id number] Ketones Ql (U) Negative Normal Comprehens tri [facility] Medicine; [facility] Work Phone: Comment on above: PATIENT WAS FASTINGP ERFORMED BY: AMY [facility] Hgpzpe7088 [address] RoadDublin [place] [id number] Leukocyte esterase Test strip Ql (U) Negative Normal [facility]; [facility] Work Phone: Comment on above: PATIENT WAS FASTINGP ERFORMED BY: AMY [facility] Iazrfp2438 [address] RoadDublin [place] [id number] Leukocyte esterase Test strip Ql (U) Negative Normal [facility]; [facility] Work Phone: Comment on above: PATIENT WAS FASTINGP ERFORMED BY: AMY [facility] Cffhra7732 [address] RoadDublin [place] [id number] Microscopic observation LM Nom (Urine sed) See below: Normal [facility]; [facility] Work Phone: Comment on above: Microscopic was yany cated and was performed. PATIENT WAS FASTINGP ERFORMED BY: CB [facility] Sycrlm4176 [address] RoadDublin [place] [id number] Microscopic observation LM Nom (Urine sed) MICRON Normal [facility]; [facility] Work Phone: Comment on above: Microscopic follows if indicated. PATIENT WAS FASTINGP ERFORMED BY: CB [facility] Osbskk2651 [address] RoadDublin [place] [id number] Nitrite Ql (U) Negative Normal Comprehens tri [facility]; [facility] Work Phone: Comment on above: PATIENT WAS FASTINGP ERFORMED BY: AMY Arronabida PerezMhnyca8958 [address] RoadDublin [place] [id number] Nitrite Ql (U) Negative Normal Comprehens tri [facility]; [facility] Work Phone: Comment on above: PATIENT WAS FASTINGP ERFORMED BY: AMY Perezlin6370 [address] RoadDublin [place] [id number] pH (U) 5.0 [pH] Normal 5.0-7.5 [facility]; [facility] Work Phone: Comment on above: PATIENT WAS FASTINGP ERFORMED BY: AMY Perezlin6370 [address] RoadDublin [place] [id number] Protein Ql (U) Negative Normal Comprehens tri [facility]; [facility] Work Phone: Comment on above: PATIENT WAS FASTINGP ERFORMED BY: AMY Perezlin6370 [address] RoadDublin [place] [id number] Protein Ql (U) Negative Normal Comprehens tri [facility] Medicine; [facility] Work Phone: Comment on above: PATIENT WAS FASTINGP ERFORMED BY: AMY Perezlin6[address] [facility]blin [place] [id number] Specific gravity (U) [Rel density] 1.026 1 Normal 1.005-1.03 0 [facility]; [facility] Work Phone: Comment on above: PATIENT WAS FASTINGP ERFORMED BY: AMY Perezlin6370 [address] Roadblin [place] [id number] Urobilinogen (U) [Mass/Vol] 0.2 mg/dL Normal 0.2-1.0 [facility]; [facility] Work Phone: Comment on above: PATIENT WAS FASTINGP ERFORMED BY: AMY Perezlin6370 [address]Dublin [place] [id number] Urobilinogen Test strip (U) [Mass/Vol] 0.2 mg/dL Normal 0.2-1.0 Comprehensi ve Internal Medicine; [facility] Internal Medicine Work Phone: Comment on above: PATIENT WAS FASTINGP ERFORMED BY: [facility] Gxfyje4811 Mois[address] Man [facility] [id number] Basic Metabolic Profile (BMP )Ordered By: Wire Bound Box Machine Operator on 10-26-2018 Basic metabolic 2000 panel 15 mg/dL Normal 7-18 [facility] Work Phone: Comment on above: [facility] Wql[address] [place], [place], [id number] Basic metabolic 2000 panel 8.5 mg/dL Normal 8.5-10.1 [facility] Work Phone: Comment on above: [facility] [address]irpj[address] [place], [place], [phone] Basic metabolic 2000 panel 4.3 mmol/L Normal 3.5-5.1 [facility] Work Phone: Comment on above: [facility] Xeff[address]ukuqr[address] [place], [place], [phone] Basic metabolic 2000 panel 1.64 mg/dL Abnormal 0.70-1.30 [facility] Work Phone: Comment on above: The validity of the calculated GFR AND GFRAA in patients over70 years has not been determined. Clinical correlation isessential. [facility] [address] [place], [place], [id number] Basic metabolic 2000 panel 26.0 mmol/L Normal 21.0-32.0 [facility] Work Phone: Comment on above: [facility] [address] [place], [place], [id number] Basic metabolic 2000 panel 109 mmol/L Abnormal 98-107 [facility] Work Phone: Comment on above: [facility] [address] [place], [place], [id number] Basic metabolic 2000 panel 9.1 {RATIO} Abnormal 10-20 [facility] Work Phone: Comment on above: [facility] [address] [place], [place], [address] Basic metabolic 2000 panel 7 1 Normal 5-15 [facility] Work Phone: Comment on above: [facility] [address] [place], [place], [address] Basic metabolic 2000 panel 131 mg/dL Abnormal 74-106 [facility] Work Phone: Comment on above: Fasting Glucose resu lt greater than or equal to 126 mg/dLsuggests DIABETES MELLITUS per A.D.A. criteria.Please note revised GLUCOSE reference range [id number]/02/2018. [facility] [address] [place], [place], [address] Basic metabolic 2000 panel 43 mL/min Abnormal [facility] Work Phone: Comment on above: Non- GFR Calc [facility] [address] [place], [place], [id number] Basic metabolic 2000 panel 53 mL/min Abnormal [facility] Work Phone: Comment on above: GFR Calc [facility] [address] [place], [place], [id number] Basic metabolic 2000 panel 40.18 ml/min Normal [facility] Work Phone: Comment on above: [facility] [address] [place], [address] Basic metabolic 2000 panel 142 mmol/L Normal 136-145 [facility] Work Phone: Comment on above: [facility] [address] [place], [place], [address] Bedside GlucoseOrdered By: Brandon ystem Supervisor [employer] on 10-26-2018 Bedside Glucose 102 mg/dL Normal 70-110 Comprehen sive Internal Medicine Work Phone: Comment on above: MANAGEMENT OF PATIEN T CARE PER NURSING PROTOCOL [facility] LaboratoryPoint of [address] [place], [place] [address] CBC W/Diff, AutomatedOrdered By: Wire Bound Box Machine Operator on 10-26-2018 Absolute Neut 5.6 {X10_3/uL} Normal 2.0-7.7 Compreh ensive Internal Medicine Work Phone: Comment on above: [facility] [address] [place], [address] Basophils/100 WBC (Bld) 0.6 % Normal 0-1 [facility] Work Phone: Comment on above: [facility] [address] [place], [address] Eosinophils/100 WBC (Bld) 12.2 % Abnormal 0-5 [facility] Work Phone: Comment on above: [facility] [address] [place], [place], [id number] Erythrocyte distribution width Ratio (RBC) 13.5 % Normal 11.6-14.6 [facility] Work Phone: Comment on above: [facility] [address] [place], [place], [id number] Hematocrit Volume Fraction (Bld) 48.6 % Normal 40-54 [facility] Work Phone: Comment on above: [facility] [address] [place], [place], [address] Hemoglobin mass conc (Bld) 16.9 g/dL Abnormal 13.0-16.5 [facility] Work Phone: Comment on above: [facility] [address] [place], [address] IM GRAN % 1.100 % Abnormal 0.0-0.9 [facility] Work Phone: Comment on above: IG% - Immature Granu locytes (promyelocytes, myelocytes andmetamyelocytes) > 1% indicates that a LEFT SHIFT is Present. [facility] [address] [place], [address] Lymphocytes #/vol (Bld) 1.96 {X10_3/ul} Normal 0.83-4.51 [facility] Work Phone: Comment on above: [facility] [address] [place], [address] Lymphocytes/100 WBC (Bld) 20.7 % Normal 19-41 [facility] Work Phone: Comment on above: [facility] [address] [place], [address] MCH Entitic mass (RBC) 29.0 pg Normal 27.0-32.0 [facility] Work Phone: Comment on above: [facility] [address] [place], [address] MCHC mass conc (RBC) 34.8 {g/gl} Normal 32-36 [facility] prehensive Internal Medicine Work Phone: Comment on above: [facility] [address] [place], [address] MCV Entitic volume (RBC) 83.4 fL Normal 80-94 [facility] Work Phone: Comment on above: [facility] [address] [place], [address] Monocytes/100 WBC (Bld) 5.9 % Normal 0-10 [facility] Work Phone: Comment on above: [facility] [address] [place], [address] Neutrophils/100 WBC (Bld) 59.5 % Normal 47-70 [facility] Work Phone: Comment on above: [facility] [address] [place], [address] Platelet mean volume Entitic volume (Bld) 10.3 fL Normal 6.2-12.0 Comprehensi ve Internal Medicine Work Phone: Comment on above: [facility] [address] [place], [place], [address] Platelets #/vol (Bld) 239 10*3/uL Normal 150-450 Co mprehensive [facility] Medicine Work Phone: Comment on above: [facility] [address] [place], [place], [address] RBC #/vol (Bld) 5.83 {M/mm3} Normal 4.6-6.2 Compreh ensive Internal Medicine Work Phone: Comment on above: [facility] [address] [place], [place], [address] RDW SD 40.9 fL Normal 35.1-43.9 [facility] Work Phone: Comment on above: [facility] [address] [place], [place], [address] WBC #/vol (Bld) 9.5 10*3/uL Normal 4.4-11.0 Comprehe nsive Internal Medicine Work Phone: Comment on above: [facility] [address] [place], [place], [address] Basic Metabolic Profile (BMP )Ordered By: Wire Bound Box Machine Operator on 10-23-2018 Basic metabolic 2000 panel 53 mL/min Abnormal [facility] Work Phone: Comment on above: GFR Calc [facility] [address] [place], [place], [address] Basic metabolic 2000 panel 40.67 ml/min Normal [facility] Work Phone: Comment on above: [facility] [address] [place], [place], [address] Basic metabolic 2000 panel 8.5 mg/dL Normal 8.5-10.1 [facility] Work Phone: Comment on above: [facility] [address] [place], [place], [address] Basic metabolic 2000 panel 25.0 mmol/L Normal 21.0-32.0 [facility] Work Phone: Comment on above: [facility] [address] [place], [address] Basic metabolic 2000 panel 142 mmol/L Normal 136-145 [facility] Work Phone: Comment on above: [facility] [address] [place], [place], [address] Basic metabolic 2000 panel 110 mmol/L Abnormal 98-107 [facility] Work Phone: Comment on above: [facility] [address] [place], [place], [address] Basic metabolic 2000 panel 4.3 mmol/L Normal 3.5-5.1 [facility] Work Phone: Comment on above: Slight Hemolysis, Re sult may be falsely increased. [facility] [address] [place], [place], [address] Basic metabolic 2000 panel 44 mL/min Abnormal [facility] Work Phone: Comment on above: Non- GFR Calc [facility] [address] [place], [place], [address] Basic metabolic 2000 panel 1.62 mg/dL Abnormal 0.70-1.30 [facility] Work Phone: Comment on above: The validity of the calculated GFR AND GFRAA in patients over70 years has not been determined. Clinical correlation isessential. [facility] [address] [place], [place], [address] Basic metabolic 2000 panel 18 mg/dL Normal 7-18 [facility] Work Phone: Comment on above: [facility] [address] [place], [place], [address] Basic metabolic 2000 panel 112 mg/dL Abnormal 74-106 [facility] Work Phone: Comment on above: Fasting Glucose resu lt from 100 to 125 mg/dLsuggests IMPAIRED HOMEOSTASIS per A.D.A. criteria.Please note revised GLUCOSE reference range [id number]/02/2018. [facility] [address] [place], [place], [address] Basic metabolic 2000 panel 7 1 Normal 5-15 [facility] Work Phone: Comment on above: [facility] [address] [place], [place], [address] Basic metabolic 2000 panel 11.1 {RATIO} Normal 10-20 [facility] Work Phone: Comment on above: [facility] [address] [place], [place], [address] Bedside GlucoseOrdered By: S ystem Supervisor [employer] on 10-23-2018 Bedside Glucose 75 mg/dL Normal 70-110 Comprehen sive Internal Medicine Work Phone: Comment on above: MANAGEMENT OF PATIEN T CARE PER NURSING PROTOCOL [facility] LaboratoryPoint of [address] [place], [place] [address] CBC W/Diff, AutomatedOrdered By: Wire Bound Box Machine Operator on 10-23-2018 Absolute Neut 4.0 {X10_3/uL} Normal 2.0-7.7 Compreh ensive Internal Medicine Work Phone: Comment on above: [facility] [address] [place], [address] Basophils/100 WBC (Bld) 0.7 % Normal 0-1 [facility] Work Phone: Comment on above: [facility] [address] [place], [address] Eosinophils/100 WBC (Bld) 11.2 % Abnormal 0-5 [facility] Work Phone: Comment on above: [facility] [address] [place], [place], [address] Erythrocyte distribution width Ratio (RBC) 13.6 % Normal 11.6-14.6 [facility] Work Phone: Comment on above: [facility] [address] [place], [address] Hematocrit Volume Fraction (Bld) 46.3 % Normal 40-54 [facility] Work Phone: Comment on above: [facility] [address] [place], [address] Hemoglobin mass conc (Bld) 15.5 g/dL Normal 13.0-16.5 [facility] Work Phone: Comment on above: [place] [address] [place], [address] IM GRAN % 0.400 % Normal 0.0-0.9 [facility] Work Phone: Comment on above: IG% - Immature Granu locytes (promyelocytes, myelocytes andmetamyelocytes) > 1% indicates that a LEFT SHIFT is Present. [place] [address] [place], [address] Lymphocytes #/vol (Bld) 2.60 {X10_3/ul} Normal 0.83-4.51 [facility] Work Phone: Comment on above: [place] [address] [place], [address] Lymphocytes/100 WBC (Bld) 31.1 % Normal 19-41 [facility] Work Phone: Comment on above: [facility] [address] [place], [address] MCH Entitic mass (RBC) 29.2 pg Normal 27.0-32.0 [facility] Work Phone: Comment on above: [facility] [address] [place], [address] MCHC mass conc (RBC) 33.5 {g/gl} Normal 32-36 Com prehensive Internal Medicine Work Phone: Comment on above: [facility] [address] [place], [address] MCV Entitic volume (RBC) 87.4 fL Normal 80-94 [facility] Work Phone: Comment on above: [facility] [address] [place], [address] Monocytes/100 WBC (Bld) 8.6 % Normal 0-10 [facility] Work Phone: Comment on above: [facility] [address] [place], [address] Neutrophils/100 WBC (Bld) 48.0 % Normal 47-70 [facility] Work Phone: Comment on above: [facility] [address] [place], [address] Platelet mean volume Entitic volume (Bld) 10.4 fL Normal 6.2-12.0 Comprehensi Internal Medicine Work Phone: Comment on above: [facility] [address] [place], [address] Platelets #/vol (Bld) 227 10*3/uL Normal 150-450 Co [facility] Work Phone: Comment on above: [facility] [address] [place], [address] RBC #/vol (Bld) 5.30 {M/mm3} Normal 4.6-6.2 Compreh ensive Internal Medicine Work Phone: Comment on above: [facility] [address] [place], [address] RDW SD 43.2 fL Normal 35.1-43.9 [facility] Work Phone: Comment on above: [facility] [address] [place], [place], [address] WBC #/vol (Bld) 8.4 10*3/uL Normal 4.4-11.0 Comprehe nsive Internal Medicine Work Phone: Comment on above: [facility] [address] [place], [place], [address] Partial Thromboplast TimeOrd ered By: Wire Bound Box Machine Operator on 10-23-2018 aPTT Coag time (PPP) 30.4 s Normal 24.1-36.2 Comp rehensive Internal Medicine Work Phone: Comment on above: [facility] [address] [place], [place], [address] Prothrombin Time w/INROrdere d By: Wire Bound Box Machine Operator on 10-23-2018 INR Coag RelTime (PPP) 1.1 {INR} Normal [facility] Work Phone: Comment on above: [facility] [address] [place], [address] Prothrombin time (PT) Coag time (PPP) 13.5 s Normal 11.7-14.9 [facility] Work Phone: Comment on above: [facility] [address] [place], [address] Basic Metabolic Profile (BMP )Ordered By: Wire Bound Box Machine Operator on 10-10-2018 Basic metabolic 2000 panel 1.50 mg/dL Abnormal 0.70-1.30 [facility] Work Phone: Comment on above: The validity of the calculated GFR AND GFRAA in patients over70 years has not been determined. Clinical correlation isessential. [facility] [address] [place], [place], [address] Basic metabolic 2000 panel 10.7 {RATIO} Normal 10-20 [facility] Work Phone: Comment on above: [facility] [address] [place], [place], [address] Basic metabolic 2000 panel 48 mL/min Abnormal [facility] Work Phone: Comment on above: Non- GFR Calc [facility] [address] [place], [place], [address] Basic metabolic 2000 panel 107 mg/dL Abnormal 74-106 [facility] Work Phone: Comment on above: Fasting Glucose resu lt from 100 to 125 mg/dLsuggests IMPAIRED HOMEOSTASIS per A.D.A. criteria.Please note revised GLUCOSE reference range [id number]/02/2018. [facility] [address] [place], [place], [address] Basic metabolic 2000 panel 5 1 Normal 5-15 [facility] Work Phone: Comment on above: [facility] [address] [place], [place], [address] Basic metabolic 2000 panel 26.0 mmol/L Normal 21.0-32.0 [facility] Work Phone: Comment on above: [facility] [address] [place], [place], [address] Basic metabolic 2000 panel 107 mmol/L Normal 98-107 [facility] Work Phone: Comment on above: [facility] [address] [place], [place], [address] Basic metabolic 2000 panel 4.0 mmol/L Normal 3.5-5.1 [facility] Work Phone: Comment on above: [facility] [address] [place], [place], [address] Basic metabolic 2000 panel 138 mmol/L Normal 136-145 [facility] Work Phone: Comment on above: [facility] [address] [place], [place], [address] Basic metabolic 2000 panel 8.2 mg/dL Abnormal 8.5-10.1 [facility] Work Phone: Comment on above: [facility] [address] [place], [place], [address] Basic metabolic 2000 panel 16 mg/dL Normal 7-18 [facility] Work Phone: Comment on above: [facility] [address] [place], [place], [address] Basic metabolic 2000 panel 43.93 ml/min Normal [facility] Work Phone: Comment on above: [facility] [address] [place], [place], [address] Basic metabolic 2000 panel 58 mL/min Abnormal [facility] Work Phone: Comment on above: GFR Calc [facility] [address] [place], [place], [address] CBC W/Diff, AutomatedOrdered By: Wire Bound Box Machine Operator on 10-10-2018 Absolute Neut 6.0 {X10_3/uL} Normal 2.0-7.7 Compreh ensive Internal Medicine Work Phone: Comment on above: [facility] [address] [place], [place], [address] Basophils/100 WBC (Bld) 0.4 % Normal 0-1 [facility] Work Phone: Comment on above: [facility] [address] [place], [place], [address] Eosinophils/100 WBC (Bld) 1.8 % Normal 0-5 [facility] Work Phone: Comment on above: [facility] [address] [place], [place], [address] Erythrocyte distribution width Ratio (RBC) 12.9 % Normal 11.6-14.6 [facility] Work Phone: Comment on above: [facility] [address] [place], [address] Hematocrit Volume Fraction (Bld) 47.0 % Normal 40-54 [facility] Work Phone: Comment on above: [facility] [address] [place], [address] Hemoglobin mass conc (Bld) 15.8 g/dL Normal 13.0-16.5 [facility] Work Phone: Comment on above: [facility] [address] [place], [address] IM GRAN % 0.200 % Normal 0.0-0.9 [facility] Work Phone: Comment on above: IG% - Immature Granu locytes (promyelocytes, myelocytes andmetamyelocytes) > 1% indicates that a LEFT SHIFT is Present. [facility] [address] [place], [address] Lymphocytes #/vol (Bld) 1.87 {X10_3/ul} Normal 0.83-4.51 [facility] Work Phone: Comment on above: [facility] [address] [place], [address] Lymphocytes/100 WBC (Bld) 20.6 % Normal 19-41 [facility] Work Phone: Comment on above: [facility] [address] [place], [address] MCH Entitic mass (RBC) 29.5 pg Normal 27.0-32.0 [facility] Work Phone: Comment on above: [facility] [address] [place], [address] MCHC mass conc (RBC) 33.6 {g/gl} Normal 32-36 [facility] prehensive Internal Medicine Work Phone: Comment on above: [facility] [address] [place], [address] MCV Entitic volume (RBC) 87.7 fL Normal 80-94 [facility] Work Phone: Comment on above: [facility] [address] [place], [address] Monocytes/100 WBC (Bld) 11.6 % Abnormal 0-10 [facility] Work Phone: Comment on above: [facility] [address] [place], [address] Neutrophils/100 WBC (Bld) 65.4 % Normal 47-70 [facility] Work Phone: Comment on above: [facility] [address] [place], [address] Platelet mean volume Entitic volume (Bld) 10.1 fL Normal 6.2-12.0 Comprehensi ve Internal Medicine Work Phone: Comment on above: [facility] [address] [place], [address] Platelets #/vol (Bld) 187 10*3/uL Normal 150-450 Co [facility] Work Phone: Comment on above: [facility] [address] [place], [address] RBC #/vol (Bld) 5.36 {M/mm3} Normal 4.6-6.2 Compreh ensive Internal Medicine Work Phone: Comment on above: [facility] [address] [place], [address] RDW SD 41.2 fL Normal 35.1-43.9 [facility] Work Phone: Comment on above: [facility] [address] [place], [address] WBC #/vol (Bld) 9.1 10*3/uL Normal 4.4-11.0 Comprehe nsive Internal Medicine Work Phone: Comment on above: [facility] [address] [place], [address] CREATININE FINGERSTICKOrdere d By: Wire Bound Box Machine Operator on 10-10-2018 Creatinine mass conc 1.4 mg/dL Abnormal 0.70-1.30 Comp rehensive Internal Medicine Work Phone: Comment on above: [facility] LaboratoryPoint of [address] [place] [address] C-REACTIVE PROTEIN ([id number])Or dered By: Wire Bound Box Machine Operator on 10-09-2018 CRP [Mass/Vol] 45.7 mg/L Abnormal 0.0-4.9 Comprehens tri Internal Medicine Work Phone: Comment on above: PATIENT NOT FASTINGP ERFORMED BY: [facility] Fiaiuv8090 [facility] [id number] CBC with auto diff ([id number])Or dered By: Wire Bound Box Machine Operator on 10-09-2018 Basophils (Bld) [#/Vol] 0.0 {x10E3/uL} Normal 0.0-0.2 [facility] Work Phone: Comment on above: PATIENT NOT FASTINGP ERFORMED BY: [facility] Fwfggc[address] [facility] [id number] Basophils (Bld) [#/Vol] 0.0 10*3/uL Normal 0.0-0.2 [facility] Work Phone: Comment on above: PATIENT NOT FASTINGP ERFORMED BY: CB [facility] Azdgwj5708 [facility] [id number] Basophils/100 WBC (Bld) 0 % Normal [facility] Work Phone: Comment on above: PATIENT NOT FASTINGP ERFORMED BY: [facility] Bjaqpb2209 [address] [facility] [id number] Eosinophils (Bld) [#/Vol] 0.1 {x10E3/uL} Normal 0.0-0.4 [facility] Work Phone: Comment on above: PATIENT NOT FASTINGP ERFORMED BY: CB [facility] Vnhfde17[address] [place] [id number] Eosinophils (Bld) [#/Vol] 0.1 10*3/uL Normal 0.0-0.4 [facility] Work Phone: Comment on above: PATIENT NOT FASTINGP ERFORMED BY: [facility] [address] [place] [id number] Eosinophils/100 WBC (Bld) 1 % Normal [facility] Work Phone: Comment on above: PATIENT NOT FASTINGP ERFORMED BY: [facility] Ojzzzu9629 [address] [facility] [place] [id number] Erythrocyte distribution width (RBC) [Ratio] 13.6 % Normal 12.3-15.4 [facility] Work Phone: Comment on above: PATIENT NOT FASTINGP ERFORMED BY: [facility] Elgcmg5916 [address] [facility] [id number] Hematocrit (Bld) [Volume fraction] 45.8 % Normal 37.5-51.0 [facility] Work Phone: Comment on above: PATIENT NOT FASTINGP ERFORMED BY: [facility] Jodhzs8129 [address] RoadWakemed [facility] Hospitalin [place] [id number] Hemoglobin (Bld) [Mass/Vol] 15.5 g/dL Normal 13.0-17.7 [facility] Work Phone: Comment on above: PATIENT NOT FASTINGP ERFORMED BY: [facility] Psmhef1286 [address] [place] [id number] Immature granulocytes (Bld) [#/Vol] 0.0 {x10E3/uL} Normal 0.0-0.1 [facility] Work Phone: Comment on above: PATIENT NOT FASTINGP ERFORMED BY: [facility] Fcvnmp4027 [address]ublin [place] [id number] Immature granulocytes (Bld) [#/Vol] 0.0 10*3/uL Normal 0.0-0.1 [facility] Work Phone: Comment on above: PATIENT NOT FASTINGP ERFORMED BY: AMY [facility] Ukphca2200 [address] RoadDublin [place] [id number] Immature granulocytes/100 WBC (Bld) 0 % Normal [facility] Work Phone: Comment on above: PATIENT NOT FASTINGP ERFORMED BY: CB [facility] Nsykcx1982 [address] Road[address] [place] [id number] Lymphocytes (Bld) [#/Vol] 1.7 {x10E3/uL} Normal 0.7-3.1 [facility] Work Phone: Comment on above: PATIENT NOT FASTINGP ERFORMED BY: [facility] Tmsiuz36[address] [place] [id number] Lymphocytes (Bld) [#/Vol] 1.7 10*3/uL Normal 0.7-3.1 [facility] Work Phone: Comment on above: PATIENT NOT FASTINGP ERFORMED BY: AMY [facility] Fljwbn5558 Curiel [facility] [id number] Lymphocytes/100 WBC (Bld) 19 % Normal [facility] Work Phone: Comment on above: PATIENT NOT FASTINGP ERFORMED BY: AMY [facility] Jvavhk6308 Curiel [facility]in [place] [id number] MCH (RBC) [Entitic mass] 29.2 pg Normal 26.6-33.0 [facility] Internal Medicine Work Phone: Comment on above: PATIENT NOT FASTINGP ERFORMED BY: [facility] Bsdnpy8236 Curiel [facility] [place] [id number] MCHC (RBC) [Mass/Vol] 33.8 g/dL Normal 31.5-35.7 [facility] [[email or web address]] Internal Medicine Work Phone: Comment on above: PATIENT NOT FASTINGP ERFORMED BY: CB [facility] Ntvgpz5793 Curiel [facility] HospitalDublin [place] [id number] MCV (RBC) [Entitic vol] 86 fL Normal 79-97 [facility] Work Phone: Comment on above: PATIENT NOT FASTINGP ERFORMED BY: [facility] Gotsbi8815 Curiel RoadDublin [place] [id number] Monocytes (Bld) [#/Vol] 0.7 {x10E3/uL} Normal 0.1-0.9 [facility] Work Phone: Comment on above: PATIENT NOT FASTINGP ERFORMED BY: AMY [facility] Kphgni0190 Curiel RoadDublin [place] [id number] Monocytes (Bld) [#/Vol] 0.7 10*3/uL Normal 0.1-0.9 [facility] Work Phone: Comment on above: PATIENT NOT FASTINGP ERFORMED BY: AMY [facility] Pmkjfl1822 Curiel RoadDublin [place] [id number] Monocytes/100 WBC (Bld) 8 % Normal [facility] Work Phone: Comment on above: PATIENT NOT FASTINGP ERFORMED BY: AMY Vale6370 Curiel RoadDublin [place] [id number] Neutrophils (Bld) [#/Vol] 6.4 {x10E3/uL} Normal 1.4-7.0 [facility] Work Phone: Comment on above: PATIENT NOT FASTINGP ERFORMED BY: AMY Perezlin6370 Curiel RoadDublin [place] [id number] Neutrophils (Bld) [#/Vol] 6.4 10*3/uL Normal 1.4-7.0 [facility] Work Phone: Comment on above: PATIENT NOT FASTINGP ERFORMED BY: AMY [facility] Neibnx1647 Curiel RoadDublin [place] [id number] Neutrophils/100 WBC (Bld) 72 % Normal [facility] Work Phone: Comment on above: PATIENT NOT FASTINGP ERFORMED BY: AMY [facility] Tvthzf1575 Curiel RoadDublin [place] [id number] Platelets (Bld) [#/Vol] 219 {x10E3/uL} Normal 150-379 [facility] Work Phone: Comment on above: PATIENT NOT FASTINGP ERFORMED BY: AMY [facility] Vniywu4763 Curiel RoadDublin [place] [id number] Platelets (Bld) [#/Vol] 219 10*3/uL Normal 150-379 [facility] Internal Medicine Work Phone: Comment on above: PATIENT NOT FASTINGP ERFORMED BY: AMY LabCoabida ValeKcycla0137 Curiel Roadblin [place] [id number] RBC (Bld) [#/Vol] 5.30 {x10E6/uL} Normal 4.14-5.80 [facility] Internal Medicine Work Phone: Comment on above: PATIENT NOT FASTINGP ERFORMED BY: CB [facility] Orzyji4972 Curiel Roadblin [place] [id number] RBC (Bld) [#/Vol] 5.30 10*6/uL Normal 4.14-5.80 [facility] Internal Medicine Work Phone: Comment on above: PATIENT NOT FASTINGP ERFORMED BY: CB [facility] Kbkumc1870 Curiel [facility]in [place] [id number] WBC (Bld) [#/Vol] 9.0 {x10E3/uL} Normal 3.4-10.8 [facility] [[email or web address]] Internal Medicine Work Phone: Comment on above: PATIENT NOT FASTINGP ERFORMED BY: CB [facility] Hkkmwa6454 Curiel [facility]in [place] [id number] WBC (Bld) [#/Vol] 9.0 10*3/uL Normal 3.4-10.8 [facility] Internal Medicine Work Phone: Comment on above: PATIENT NOT FASTINGP ERFORMED BY: CB [facility] Yqtrrc9296 Curiel [facility] Hospitalblin [place] [id number] Metabolic Panel, Comprehensi ve (57807)Ordered By: Wire Bound Box Machine Operator on 10-09-2018 Albumin [Mass/Vol] 4.0 g/dL Normal 3.5-4.8 [facility] Internal Medicine Work Phone: Comment on above: PATIENT NOT FASTINGP ERFORMED BY: CB [facility] Sceawl8497 Curiel [facility]in [place] [id number] Albumin/Globulin [Mass ratio] 1.7 {ratio} Normal 1.2-2.2 [facility] Work Phone: Comment on above: PATIENT NOT FASTINGP ERFORMED BY: AMY [facility] Qvjteb0106 Curiel RoadDublin [place] [id number] ALP [Catalytic activity/Vol] 71 [iU]/L Normal 39-117 [facility] Work Phone: Comment on above: PATIENT NOT FASTINGP ERFORMED BY: AMY [facility] Ludzcz6900 Curiel RoadDublin [place] [id number] ALP [Catalytic activity/Vol] 71 U/L Normal 39-117 [facility] Work Phone: Comment on above: PATIENT NOT FASTINGP ERFORMED BY: AMY LabCoabida PerezSionmz4447 Curiel RoadDublin [place] [id number] ALT [Catalytic activity/Vol] 16 [iU]/L Normal 0-44 [facility] Work Phone: Comment on above: PATIENT NOT FASTINGP ERFORMED BY: AMY WomackCoabida PerezWteqge9916 Curiel RoadDublin [place] [id number] ALT [Catalytic activity/Vol] 16 U/L Normal 0-44 [facility] Work Phone: Comment on above: PATIENT NOT FASTINGP ERFORMED BY: AMY LabCoabida PerezLgpbdx0801 Curiel RoadDublin [place] [id number] AST [Catalytic activity/Vol] 13 [iU]/L Normal 0-40 [facility] Work Phone: Comment on above: PATIENT NOT FASTINGP ERFORMED BY: AMY [facility] Axnfeo9632 Curiel RoadDublin [place] [id number] AST [Catalytic activity/Vol] 13 U/L Normal 0-40 [facility] Work Phone: Comment on above: PATIENT NOT FASTINGP ERFORMED BY: AMY [facility] Kwkwhr9192 Cur[address] RoadDublin [place] [id number] Bilirubin [Mass/Vol] 0.5 mg/dL Normal 0.0-1.2 Comp rehensive Internal Medicine Work Phone: Comment on above: PATIENT NOT FASTINGP ERFORMED BY: AMY [facility] Esemjl1462 Curiel RoadDublin [place] [id number] Calcium [Mass/Vol] 9.1 mg/dL Normal 8.6-10.2 [facility] Internal Medicine Work Phone: Comment on above: PATIENT NOT FASTINGP ERFORMED BY: CB [facility] Rrrsul7326 Curiel RoadDublin [place] [id number] Chloride [Moles/Vol] 103 mmol/L Normal 96-106 Comp [facility] Work Phone: Comment on above: PATIENT NOT FASTINGP ERFORMED BY: CB [facility] Xsxzqt2419 Curiel RoadDublin [place] [id number] CO2 [Moles/Vol] 23 mmol/L Normal 20-29 [facility] Internal Medicine Work Phone: Comment on above: PATIENT NOT FASTINGP ERFORMED BY: CB [facility] Lehcja3442 Curiel RoadDublin [place] [id number] Creatinine [Mass/Vol] 1.50 mg/dL Abnormal 0.76-1.27 [facility] [[email or web address]] Internal Medicine Work Phone: Comment on above: PATIENT NOT FASTINGP ERFORMED BY: CB [facility] Tdvwjv8525 Curiel RoadDublin [place] [id number] GFR/1.73 sq M predicted among blacks CKD-EPI (S/P/Bld) [Vol rate/Area] 51 mL/min/1.73 Abnormal [facility] Work Phone: Comment on above: PATIENT NOT FASTINGP ERFORMED BY: CB [facility] Izkwjz1252 Cur[address] RoadDublin [place] [id number] GFR/1.73 sq M predicted among non-blacks CKD-EPI (S/P/Bld) [Vol rate/Area] 44 mL/min/1.73 Abnormal [facility] Work Phone: Comment on above: PATIENT NOT FASTINGP ERFORMED BY: CB [facility] Dozmzx4350 Cur[address] RoadDublin [place] [id number] Globulin (S) [Mass/Vol] 2.3 g/dL Normal 1.5-4.5 [facility] Work Phone: Comment on above: PATIENT NOT FASTINGP ERFORMED BY: AMY [facility] Ylkxuh5105 Curiel RoadDublin [place] [id number] Glucose [Mass/Vol] 106 mg/dL Abnormal 65-99 [facility] Internal Medicine Work Phone: Comment on above: PATIENT NOT FASTINGP ERFORMED BY: AMY [facility] Pnzpmm7908 [address] RoadDublin [place] [id number] Potassium [Moles/Vol] 5.5 mmol/L Abnormal 3.5-5.2 [facility] [[email or web address] Internal Medicine Work Phone: Comment on above: PATIENT NOT FASTINGP ERFORMED BY: AMY [facility] Gumvls5464 [address] RoadDublin [place] [id number] Protein [Mass/Vol] 6.3 g/dL Normal 6.0-8.5 [facility] Internal Medicine Work Phone: Comment on above: PATIENT NOT FASTINGP ERFORMED BY: AMY [facility] Bpmfgm7829 Cur[address] RoadDublin [place] [id number] Sodium [Moles/Vol] 142 mmol/L Normal 134-144 [facility] Internal Medicine Work Phone: Comment on above: PATIENT NOT FASTINGP ERFORMED BY: AMY [facility] Kkluwp7987 Cur[address] RoadDublin [place] [id number] Urea nitrogen [Mass/Vol] 18 mg/dL Normal 8-27 [facility] Internal Medicine Work Phone: Comment on above: PATIENT NOT FASTINGP ERFORMED BY: AMY [facility] Ilbssb9088 Cur[address] RoadDublin [place] [id number] Urea nitrogen/Creatinine [Mass ratio] 12 mg/mg Normal 10-24 [facility] Internal Medicine Work Phone: Comment on above: PATIENT NOT FASTINGP ERFORMED BY: AMY [facility] Vywkrs6464 Cur[address] RoadDublin [place] [id number] Sed Rate Erythrocyte ([id number]) Ordered By: Wire Bound Box Machine Operator on 10-09-2018 ESR (Bld) [Velocity] 5 mm/h Normal 0-30 [facility] Work Phone: Comment on above: PATIENT NOT FASTINGP ERFORMED BY: AMY WomackCoSt. Francis Medical CenterElftwz6033 Moisés Banda [place] [id number] CREATININE FINGERSTICKOrdere d By: Wire Bound Box Machine Operator on 03-06-2018 Creatinine [Mass/Vol] 1.1 mg/dL Normal 0.70-1.30 Com prehensive Internal Medicine Work Phone: Comment on above: [facility] LaboratoryPoint of [address] [place] [address] GFR/1.73 sq M predicted among non-blacks MDRD (S/P/Bld) [Vol rate/Area] mL/min/{1.73_m2} Normal [facility] Work Phone: Comment on above: [facility] LaboratoryPoint of [address] [place] [address] CBC W/Diff, AutomatedOrdered By: Wire Bound Box Machine Operator on 12-20-2017 Absolute Neut 3.1 {X10_3/uL} Normal 2.0-7.7 Compreh ensive Internal Medicine Work Phone: Comment on above: [facility] [address] [place], [address] Basophils/100 WBC (Bld) 0.8 % Normal 0-1 [facility] Work Phone: Comment on above: [facility] [address] [place], [address] Eosinophils/100 WBC (Bld) 2.7 % Normal 0-5 [facility] Work Phone: Comment on above: [facility] [address] [place], [address] Erythrocyte distribution width (RBC) [Ratio] 14.0 % Normal 11.6-14.6 [facility] Work Phone: Comment on above: [facility] [address] [place], [address] Hematocrit (Bld) [Volume fraction] 48.2 % Normal 40-54 [facility] Work Phone: Comment on above: [facility] [address] [place], [address] Hemoglobin (Bld) [Mass/Vol] 16.2 g/dL Normal 13.0-16.5 [facility] Work Phone: Comment on above: [facility] [address] [place], [address] IM GRAN % 0.200 % Normal 0.0-0.9 [facility] Work Phone: Comment on above: IG% - Immature Granu locytes (promyelocytes, myelocytes andmetamyelocytes) > 1% indicates that a LEFT SHIFT is Present. [facility] [address] [place], [address] Lymphocytes (Bld) [#/Vol] 1.33 {X10_3/ul} Normal 0.83-4.51 [facility] Work Phone: Comment on above: [facility] [address] [place], [address] Lymphocytes/100 WBC (Bld) 25.5 % Normal 19-41 [facility] Work Phone: Comment on above: [facility] [address] [place], [address] MCH (RBC) [Entitic mass] 28.3 pg Normal 27.0-32.0 [facility] Work Phone: Comment on above: [facility] [address] [place], [address] MCHC (RBC) [Mass/Vol] 33.6 {g/gl} Normal 32-36 [facility] Internal Medicine Work Phone: Comment on above: [facility] [address] [place], [address] MCV (RBC) [Entitic vol] 84.1 fL Normal 80-94 [facility] Work Phone: Comment on above: [facility] [address] [place], [address] Monocytes/100 WBC (Bld) 10.9 % Abnormal 0-10 [facility] Work Phone: Comment on above: [facility] [address] [place], [address] Neutrophils/100 WBC (Bld) 59.9 % Normal 47-70 [facility] Work Phone: Comment on above: [facility] [address] [place], [address] Platelet mean volume (Bld) [Entitic vol] 10.8 fL Normal 6.2-12.0 Comprehensiv e Internal Medicine Work Phone: Comment on above: [facility] [address] [place], [address] Platelets (Bld) [#/Vol] 215 10*3/uL Normal 150-450 [facility] Work Phone: Comment on above: [facility] [address] [place], [address] RBC (Bld) [#/Vol] 5.73 {M/mm3} Normal 4.6-6.2 Compr [facility] Internal Medicine Work Phone: Comment on above: [facility] [address] [place], [address] RDW SD 42.5 fL Normal 35.1-43.9 [facility] Work Phone: Comment on above: [facility] [address] [place], [address] WBC (Bld) [#/Vol] 5.2 10*3/uL Normal 4.4-11.0 [facility] Internal [facility] Work Phone: Comment on above: [facility] [address] [place], [place], [address] CCP IgG AntibodiesOrdered By : Wire Bound Box Machine Operator on 12-20-2017 Cyclic citrullinated peptide IgG Qn 5 {units} Normal 0-19 [facility] Work Phone: Comment on above: Negative <20 Weak po sitive 20 - 39 Moderate positive 40 - 59 Strong positive >59Performed at: 2 - LabCoMichael [facility]ille [address] [place], [place] [id number] Director: Main Beckham PhD, Phone: [phone] at: - LabCo[address] [id number] Director: Jesus Alberto Crenshaw MD, Phone: [phone] [facility] (refer to re port for specific [...] a High Sensitivity CRP (HSCRP)should be ordered. [facility] [address] [place], [place], [address] Comprehensive Metabolic Prof ilOrdered By: Wire Bound Box Machine Operator on 12-20-2017 Comprehensive metabolic 2000 panel 8.5 mg/dL Normal 8.5-10.1 Comprehensi ve Internal Medicine Work Phone: Comment on above: [facility] [address] [place], [place], [address] Comprehensive metabolic 2000 panel 1.44 mg/dL Abnormal 0.70-1.30 Comprehensi ve Internal Medicine Work Phone: Comment on above: The validity of the calculated GFR AND GFRAA in patients over70 years has not been determined. Clinical correlation isessential. [facility] [address] [place], [address] Comprehensive metabolic 2000 panel 23 mg/dL Abnormal 7-18 Comprehensi ve Internal Medicine Work Phone: Comment on above: [facility] [address] [place], [place], [address] Comprehensive metabolic 2000 panel 78 mg/dL Normal 74-106 Comprehensi ve Internal Medicine Work Phone: Comment on above: Please note revised GLUCOSE reference range azsyugbjm74/02/2018. [facility] [address] [place], [place], [address] Comprehensive metabolic 2000 panel 7.1 g/dL Normal 6.4-8.2 Comprehensi ve Internal Medicine Work Phone: Comment on above: [facility] [address] [place], [address] Comprehensive metabolic 2000 panel 3.6 g/dL Normal 3.2-5.0 Comprehensi ve Internal Medicine Work Phone: Comment on above: [facility] [address] [place], [place], [address] Comprehensive metabolic 2000 panel 109 mmol/L Abnormal 98-107 Comprehensi ve Internal Medicine Work Phone: Comment on above: [facility] [address] [place], [address] Comprehensive metabolic 2000 panel 3.5 g/dL Normal 2.2-4.2 Comprehensi ve Internal Medicine Work Phone: Comment on above: [facility] [address] [place], [place], [address] Comprehensive metabolic 2000 panel 1.0 {RATIO} Normal 0.9-2.4 Comprehensi ve Internal Medicine Work Phone: Comment on above: [facility] [address] [place], [address] Comprehensive metabolic 2000 panel 51 mL/min Abnormal Comprehensi ve Internal Medicine Work Phone: Comment on above: Non- GFR Calc [facility] [address] [place], [place], [address] Comprehensive metabolic 2000 panel 16 U/L Normal 15-37 Comprehensi ve Internal Medicine Work Phone: Comment on above: [facility] [address] [place], [place], [address] Comprehensive metabolic 2000 panel 71 U/L Normal 45-117 Comprehensi ve Internal Medicine Work Phone: Comment on above: [facility] [address] [place], [place], [address] Comprehensive metabolic 2000 panel 23 U/L Normal 16-61 Comprehensi ve Internal Medicine Work Phone: Comment on above: [facility] [address] [place], [place], [address] Comprehensive metabolic 2000 panel 0.60 mg/dL Normal 0.20-1.00 Comprehensi ve Internal Medicine Work Phone: Comment on above: [facility] [address] [place], [place], [address] Comprehensive metabolic 2000 panel 142 mmol/L Normal 136-145 Comprehensi ve Internal Medicine Work Phone: Comment on above: [facility] [address] [place], [address] Comprehensive metabolic 2000 panel 4.4 mmol/L Normal 3.5-5.1 Comprehensi ve Internal Medicine Work Phone: Comment on above: [facility] [address] [place], [address] Comprehensive metabolic 2000 panel 61 mL/min Normal Comprehensi ve Internal Medicine Work Phone: Comment on above: GFR Calc [facility] [address] [place], [place], [address] Comprehensive metabolic 2000 panel 9 1 Normal 5-15 Comprehensi ve Internal Medicine Work Phone: Comment on above: [facility] [address] [place], [place], [address] Comprehensive metabolic 2000 panel 24.0 mmol/L Normal 21.0-32.0 Comprehensi ve Internal Medicine Work Phone: Comment on above: [facility] [address] [place], [address] Comprehensive metabolic 2000 panel 16.0 {RATIO} Normal 10-20 Comprehensi ve Internal Medicine Work Phone: Comment on above: [facility] [address] [place], [place], [address] Erythrocyte Sed RateOrdered By: Wire Bound Box Machine Operator on 12-20-2017 Erythrocyte Sed Rate 8 mm/h Normal 0-20 Comp rehensive Internal Medicine Work Phone: Comment on above: [facility] [address] [place], [place], [address] HLA R65Bomzowl By: System Dorothy dan on 12-20-2017 HLA B27 Negative Normal [facility] Work Phone: Comment on above: HLA-B*27 SzijnpzrE12 allele interpretation for all loci based on IMGT/HLAdatabase version 3.27This test was developed and its performance characteristicsdetermined by [facility]. It has not been cleared or approvedby the Food and Drug Administration.[facility] Lab CLIA ID Number [id number] test was performed using PCR (Polymerase ChainReaction)/SSOP (Sequence Specific Oligonucleotide Probes)technique. SBT (Sequence Based Typing) and/or SSP(Sequence Specific Primers) may be used as supplementalmethods when necessary. Please contact [facility] CustomerService at if you have any questions. Director of HLA Laboratory Dr Main Beckham, PhD [facility] (refer to re port for specific site)refer to report for address and phone number PSA,Total- DiagnosticOrdered By: Wire Bound Box Machine Operator on 12-20-2017 PSA,Total- Diagnostic 0.01 ng/mL Normal 0.0-4.0 Com prehensive Internal Medicine Work Phone: Comment on above: This test was perfor med using the TPSA assay method for theTianji chemistry system. Values obtained with differentassay methods cannot be used interchangably.When changing PSA assays in the course of monitoring apatient, additional sequential testing should be carriedout to confirm baseline values. [facility] [address] [place], [place], [address] Rheumatoid FactorOrdered By: Wire Bound Box Machine Operator on 12-20-2017 Rheumatoid factor Qn [IU]/mL Normal Comp rehensive Internal Medicine Work Phone: Comment on above: [facility] [address] [place], [place], [address] Culture, ThroatOrdered By: Brandon ystem Supervisor Frame Assembly on 11-23-2017 Bacteria identified Cx Nom (Throat) See Note Normal [facility] Work Phone: Comment on above: Culture, ThroatMixed normal respiratory giorgio. No Haemophilus, Streptococcus pneumoniae, beta-hemolytic Streptococcus or Staphylococcus aureus isolated. [facility] [address] [place], [place], [address] POTASSIUM SERUM ([id number])Order ed By: Wire Bound Box Machine Operator on 02-06-2016 Potassium [Moles/Vol] 5.3 mmol/L Abnormal 3.5-5.2 [facility] prehensive Internal Medicine Work Phone: Comment on above: PATIENT NOT FASTINGP ERFORMED BY: LabCoSt. Francis Medical CenterTeiwwn7937 [facility] [id number] Information: [id number], [id number] CALCIFIDIOL (49091) VIT D 25 Ordered By: Wire Bound Box Machine Operator on 01-27-2016 25-Hydroxyvitamin D2+25-Hydroxyvitamin D3 [Mass/Vol] 25.6 ng/mL Abnormal 30.0-100.0 [facility] Work Phone: Comment on above: Vitamin D deficiency has been defined by the [place] of[place]icine and an Endocrine Society practice guideline as alevel of serum 25-OH vitamin D less than 20 ng/mL (1,2).The Endocrine Society went on to further define vitamin Dinsufficiency as a level between 21 and 29 ng/mL (2).1. IOM ([place] of Medicine). 2010. Dietary reference intakes for calcium and D. [place]: The National Academies Press.2. Meme MF, Lian ANDERSON, Donald HERNANDEZ, et al. Evaluation, treatment, and prevention of vitamin D deficiency: an Endocrine Society clinical practice guideline. JCEM. 2010; 96(7):1911-30. PATIENT NOT FASTINGP ERFORMED BY: [facility] Pxtqze2031 [facility] [id number] CBC W/AUTO DIFF WBC (36087)O rdered By: Wire Bound Box Machine Operator on 01-27-2016 Basophils (Bld) [#/Vol] 0.1 {x10E3/uL} Normal 0.0-0.2 [facility] Work Phone: Comment on above: PATIENT NOT FASTINGP ERFORMED BY: [facility] Mxckek4164 [facility] [id number] Information: [id number], DRAW FEE [id number] Basophils (Bld) [#/Vol] 0.1 10*3/uL Normal 0.0-0.2 [facility] Work Phone: Comment on above: PATIENT NOT FASTINGP ERFORMED BY: [facility] Wfhjzi6825 [facility] [id number] Information: [id number], DRAW FEE [id number] Basophils/100 WBC (Bld) 1 % Normal [facility] Work Phone: Comment on above: PATIENT NOT FASTINGP ERFORMED BY: [facility] Yurvxo0956 [facility] [id number] Information: [id number], DRAW FEE [id number] Eosinophils (Bld) [#/Vol] 0.1 {x10E3/uL} Normal 0.0-0.4 [facility] Work Phone: Comment on above: PATIENT NOT FASTINGP ERFORMED BY: [facility] Ldeejk9182 [facility] [id number] Information: [id number], DRAW FEE [id number] Eosinophils (Bld) [#/Vol] 0.1 10*3/uL Normal 0.0-0.4 [facility] Work Phone: Comment on above: PATIENT NOT FASTINGP ERFORMED BY: AMY Vale6370 [facility] [id number] Information: [id number], DRAW FEE [id number] Eosinophils/100 WBC (Bld) 3 % Normal [facility] Work Phone: Comment on above: PATIENT NOT FASTINGP ERFORMED BY: [address] [id number] Information: [id number], DRAW FEE [id number] Erythrocyte distribution width (RBC) [Ratio] 14.2 % Normal 12.3-15.4 [facility] Work Phone: Comment on above: PATIENT NOT FASTINGP ERFORMED BY: AMY Womack[address] [id number] Information: [id number], DRAW FEE [id number] Hematocrit (Bld) [Volume fraction] 47.2 % Normal 37.5-51.0 [facility] Work Phone: Comment on above: PATIENT NOT FASTINGP ERFORMED BY: AMY Horton F[address]ud[address] [id number] Information: [id number], DRAW FEE [id number] Hemoglobin (Bld) [Mass/Vol] 15.6 g/dL Normal 12.6-17.7 [facility] Work Phone: Comment on above: PATIENT NOT FASTINGP ERFORMED BY: [address] [id number] Information: [id number], DRAW FEE [id number] Immature granulocytes (Bld) [#/Vol] 0.0 {x10E3/uL} Normal 0.0-0.1 [facility] Work Phone: Comment on above: PATIENT NOT FASTINGP ERFORMED BY: Lab[address] [id number] Information: [id number], DRAW FEE 278529 Immature granulocytes (Bld) [#/Vol] 0.0 10*3/uL Normal 0.0-0.1 [facility] Work Phone: Comment on above: PATIENT NOT FASTINGP ERFORMED BY: AMY [facility] Twgeyv5311 [facility] [id number] Information: [id number], DRAW FEE 570508 Immature granulocytes/100 WBC (Bld) 0 % Normal [facility] Work Phone: Comment on above: PATIENT NOT FASTINGP ERFORMED BY: [address] [id number] Information: [id number], DRAW FEE 284049 Lymphocytes (Bld) [#/Vol] 1.6 {x10E3/uL} Normal 0.7-3.1 [facility] Work Phone: Comment on above: PATIENT NOT FASTINGP ERFORMED BY: [place] [id number] [facility] [id number] Information: [id number], DRAW FEE 031468 Lymphocytes (Bld) [#/Vol] 1.6 10*3/uL Normal 0.7-3.1 [facility] Work Phone: Comment on above: PATIENT NOT FASTINGP ERFORMED BY: [address] [id number] Information: [id number], DRAW FEE 965291 Lymphocytes/100 WBC (Bld) 30 % Normal [facility] Work Phone: Comment on above: PATIENT NOT FASTINGP ERFORMED BY: LabCoAnna Ville [id number] [facility] [id number] Information: [id number], DRAW FEE 360320 MCH (RBC) [Entitic mass] 28.3 pg Normal 26.6-33.0 [facility] Work Phone: Comment on above: PATIENT NOT FASTINGP ERFORMED BY: LabSarah Ville [id number] [facility] [id number] Information: [id number], DRAW FEE 565004 MCHC (RBC) [Mass/Vol] 33.1 g/dL Normal 31.5-35.7 [facility] [[email or web address]] Internal Medicine Work Phone: Comment on above: PATIENT NOT FASTINGP ERFORMED BY: [facility]Y [facility] [id number] Information: [id number], DRAW FEE 554082 MCV (RBC) [Entitic vol] 86 fL Normal 79-97 [facility] Work Phone: Comment on above: PATIENT NOT FASTINGP ERFORMED BY: [address] [id number] Information: [id number], DRAW FEE [id number] Monocytes (Bld) [#/Vol] 0.5 {x10E3/uL} Normal 0.1-0.9 [facility] Internal Medicine Work Phone: Comment on above: PATIENT NOT FASTINGP ERFORMED BY: [address] [id number] Information: [id number], DRAW FEE 023424 Monocytes (Bld) [#/Vol] 0.5 10*3/uL Normal 0.1-0.9 [facility] Work Phone: Comment on above: PATIENT NOT FASTINGP ERFORMED BY: [address] [id number] Information: [id number], DRAW FEE 826880 Monocytes/100 WBC (Bld) 9 % Normal [facility] Work Phone: Comment on above: PATIENT NOT FASTINGP ERFORMED BY: [address] [id number] Information: [id number], DRAW FEE 215607 Neutrophils (Bld) [#/Vol] 3.0 {x10E3/uL} Normal 1.4-7.0 [facility] Work Phone: Comment on above: PATIENT NOT FASTINGP ERFORMED BY: [address]Dublin [place] [id number] Information: [id number], DRAW FEE 435198 Neutrophils (Bld) [#/Vol] 3.0 10*3/uL Normal 1.4-7.0 [facility] Internal Medicine Work Phone: Comment on above: PATIENT NOT FASTINGP ERFORMED BY: AMY Horton Lrvceq1760 [facility] [id number] Information: [id number], DRAW FEE 528295 Neutrophils/100 WBC (Bld) 57 % Normal [facility] Internal Medicine Work Phone: Comment on above: PATIENT NOT FASTINGP ERFORMED BY: AMY Horton Gexxfb6776 [facility] [id number] Information: [id number], DRAW FEE 972133 Platelets (Bld) [#/Vol] 201 {x10E3/uL} Normal 150-379 [facility] Internal Medicine Work Phone: Comment on above: PATIENT NOT FASTINGP ERFORMED BY: AMY Horton Pdnezi4560 [facility] [id number] Information: [id number], DRAW FEE 582012 Platelets (Bld) [#/Vol] 201 10*3/uL Normal 150-379 [facility] Internal Medicine Work Phone: Comment on above: PATIENT NOT FASTINGP ERFORMED BY: AMY Horton Zemjuv8460 [facility] [id number] Information: [id number], DRAW FEE 745687 RBC (Bld) [#/Vol] 5.51 {x10E6/uL} Normal 4.14-5.80 [facility] Internal Medicine Work Phone: Comment on above: PATIENT NOT FASTINGP ERFORMED BY: AM[facility] Dgvdgs2822 [facility] [id number] Information: [id number], DRAW FEE 099572 RBC (Bld) [#/Vol] 5.51 10*6/uL Normal 4.14-5.80 [facility] Internal Medicine Work Phone: Comment on above: PATIENT NOT FASTINGP ERFORMED BY: AMY [address] [place] [id number] Information: [id number], DRAW FEE 028546 WBC (Bld) [#/Vol] 5.3 {x10E3/uL} Normal 3.4-10.8 [facility] [[email or web address]] Internal Medicine Work Phone: Comment on above: PATIENT NOT FASTINGP ERFORMED BY: AMY [address] [facility]in [place] [id number] Information: [id number], DRAW FEE 747533 WBC (Bld) [#/Vol] 5.3 10*3/uL Normal 3.4-10.8 [facility] Internal Medicine Work Phone: Comment on above: PATIENT NOT FASTINGP ERFORMED BY: AMY Vale[address] [facility] [id number] Information: [id number], DRAW FEE 826609 METABOLIC PANEL, COMPREHENSI VE (80490)Ordered By: Wire Bound Box Machine Operator on 01-27-2016 Albumin [Mass/Vol] 4.1 g/dL Normal 3.5-4.8 [facility] Internal Medicine Work Phone: Comment on above: PATIENT NOT FASTINGP ERFORMED BY: AMY Vale6370 [facility] [place] [place] [id number] Albumin/Globulin [Mass ratio] 1.7 {ratio} Normal 1.1-2.5 [facility] Internal Medicine Work Phone: Comment on above: PATIENT NOT FASTINGP ERFORMED BY: AMY [address] [facility] [place] [id number] ALP [Catalytic activity/Vol] 69 [iU]/L Normal 39-117 [facility] Internal Medicine Work Phone: Comment on above: PATIENT NOT FASTINGP ERFORMED BY: AMY Vale[address] [facility]in [place] [id number] ALP [Catalytic activity/Vol] 69 U/L Normal 39-117 [facility] Internal Medicine Work Phone: Comment on above: PATIENT NOT FASTINGP ERFORMED BY: CB [facility] Azqpml6416 [address] RoadDublin [place] [id number] ALT [Catalytic activity/Vol] 14 [iU]/L Normal 0-44 [facility] Work Phone: Comment on above: PATIENT NOT FASTINGP ERFORMED BY: CB [facility] Vrvovc8313 [address] RoadDublin [place] [id number] ALT [Catalytic activity/Vol] 14 U/L Normal 0-44 [facility] Work Phone: Comment on above: PATIENT NOT FASTINGP ERFORMED BY: CB [facility] Lnptwz1918 [address] RoadDublin [place] [id number] AST [Catalytic activity/Vol] 16 [iU]/L Normal 0-40 [facility] Work Phone: Comment on above: PATIENT NOT FASTINGP ERFORMED BY: AMY [facility] Ueslmj3725 [address] RoadDublin [place] [id number] AST [Catalytic activity/Vol] 16 U/L Normal 0-40 [facility] Work Phone: Comment on above: PATIENT NOT FASTINGP ERFORMED BY: AMY [facility] Jwkajm4224 [address] RoadDublin [place] [id number] Bilirubin [Mass/Vol] 0.4 mg/dL Normal 0.0-1.2 [facility] Work Phone: Comment on above: PATIENT NOT FASTINGP ERFORMED BY: [facility] Vpcuhl1688 [address]iel RoadDublin [place] [id number] Calcium [Mass/Vol] 8.9 mg/dL Normal 8.6-10.2 [facility] Internal Medicine Work Phone: Comment on above: PATIENT NOT FASTINGP ERFORMED BY: CB [facility] Iylbuh0874 [address] RoadDublin [place] [id number] Chloride [Moles/Vol] 103 mmol/L Normal 97-108 [facility] Work Phone: Comment on above: PATIENT NOT FASTINGP ERFORMED BY: CB [facility] Gupixo0910 [address] RoadDublin [place] [id number] CO2 [Moles/Vol] 22 mmol/L Normal 18-29 [facility] Internal Medicine Work Phone: Comment on above: PATIENT NOT FASTINGP ERFORMED BY: CB [facility] Spzufw2097 [address] [facility] [id number] Creatinine [Mass/Vol] 1.43 mg/dL Abnormal 0.76-1.27 [facility] Work [facility]: Comment on above: PATIENT NOT FASTINGP ERFORMED BY: CB [facility] Vhrayx6153 [address] [facility] [id number] GFR/1.73 sq M predicted among blacks CKD-EPI (S/P/Bld) [Vol rate/Area] 55 mL/min/1.73 Abnormal [facility] Work Phone: Comment on above: PATIENT NOT FASTINGP ERFORMED BY: CB [facility] Rexkfw0713 [address] [facility] [id number] GFR/1.73 sq M predicted among non-blacks CKD-EPI (S/P/Bld) [Vol rate/Area] 48 mL/min/1.73 Abnormal [facility] Work Phone: Comment on above: PATIENT NOT FASTINGP ERFORMED BY: CB [facility] Mucnsl3252 [address] [facility] [id number] Globulin (S) [Mass/Vol] 2.4 g/dL Normal 1.5-4.5 [facility] Internal Medicine Work Phone: Comment on above: PATIENT NOT FASTINGP ERFORMED BY: CB [facility] Vtyqxm1024 [address] [facility] [id number] Glucose [Mass/Vol] 85 mg/dL Normal 65-99 [facility] Internal Medicine Work Phone: Comment on above: PATIENT NOT FASTINGP ERFORMED BY: CB [facility] Aloaoa5567 [address] [facility] [id number] Potassium [Moles/Vol] 5.5 mmol/L Abnormal 3.5-5.2 [facility] Work Phone: Comment on above: PATIENT NOT FASTINGP ERFORMED BY: CB [facility] Rjzfqd6517 [address] RoadDublin [place] [id number] Protein [Mass/Vol] 6.5 g/dL Normal 6.0-8.5 [facility] Internal Medicine Work Phone: Comment on above: PATIENT NOT FASTINGP ERFORMED BY: CB [facility] Zmzrmj2660 [address] RoadDublin [place] [id number] Sodium [Moles/Vol] 141 mmol/L Normal 134-144 [facility] Internal Medicine Work Phone: Comment on above: PATIENT NOT FASTINGP ERFORMED BY: CB [facility] Xrsnnp8244 [address] RoadDublin [place] [id number] Urea nitrogen [Mass/Vol] 20 mg/dL Normal 8-27 [facility] Work Phone: Comment on above: PATIENT NOT FASTINGP ERFORMED BY: AMY [facility] Lpsdtu1026 [address] RoadDublin [place] [id number] Urea nitrogen/Creatinine [Mass ratio] 14 mg/mg Normal 10- [facility] Work Phone: Comment on above: PATIENT NOT FASTINGP ERFORMED BY: AMY [facility] Ezstox1925 [address] RoadDublin [place] [id number] MICROALBUMINOrdered By: Syst em Supervisor Frame Assembly on 01-27-2016 Albumin DL <= 20 mg/L (U) [Mass/Vol] mg/dL Normal [facility] Work Phone: Comment on above: PATIENT NOT FASTINGP ERFORMED BY: CB [facility] Surbqm7901 [address] RoadDublin [place] [id number] Albumin DL <= 20 mg/L (U) [Mass/Vol] mg/dL Normal [facility] Work Phone: Comment on above: PATIENT NOT FASTINGP ERFORMED BY: CB [facility] Byluxz3662 [address] RoadDublin [place] [id number] Albumin/Creatinine (U) [Mass ratio] <3.0 Normal 0.0-30.0 [facility] Work Phone: Comment on above: PATIENT NOT FASTINGP ERFORMED BY: CB [facility] Nvaugu3500 [address] RoadDublin [place] [id number] Creatinine (U) [Mass/Vol] 101.1 mg/dL Normal [facility] Work Phone: Comment on above: PATIENT NOT FASTINGP ERFORMED BY: AMY [facility] Hhaafh2192 [address] RoadDublin [place] [id number] Microscopic ExaminationOrder ed By: Wire Bound Box Machine Operator on 01-27-2016 Bacteria LM.HPF (Urine sed) [#/Area] Few Normal Comprehensi ve Internal Medicine Work Phone: Comment on above: PATIENT NOT FASTINGP ERFORMED BY: CB [facility] Vsigji6362 [address] RoadDublin [place] [id number] Epithelial cells LM.HPF (Urine sed) [#/Area] 0-10 Normal 0 - 10 [facility] Work Phone: Comment on above: PATIENT NOT FASTINGP ERFORMED BY: AMY [facility] Jvyzqc8293 [address] RoadDublin [place] [id number] Mucus Ql (Urine sed) Present Normal Comp rehensive Internal Medicine Work Phone: Comment on above: PATIENT NOT FASTINGP ERFORMED BY: CB [facility] Ngivns1869 [address] RoadDublin [place] [id number] RBC LM.HPF (Urine sed) [#/Area] 0-2 Normal 0 - 2 [facility] Work Phone: Comment on above: PATIENT NOT FASTINGP ERFORMED BY: CB [facility] Skcntu0247 [address] RoadDublin [place] [id number] WBC LM.HPF (Urine sed) [#/Area] 0-5 Normal 0 - 5 [facility] Work Phone: Comment on above: PATIENT NOT FASTINGP ERFORMED BY: CB [facility] Yaqlmw6591 [address] RoadDublin [place] [id number] TSH (97330)Ordered By: Tahmina m Supervisor Frame Assembly on 01-27-2016 TSH Qn 0.996 {uIU/mL} Normal 0.450-4.50 0 [facility] Work Phone: Comment on above: PATIENT NOT FASTINGP ERFORMED BY: CB [facility] Utbhgs9432 [address] RoadDublin [place] [id number] URINALYSIS, W/ MICRO ([id number]) Ordered By: Wire Bound Box Machine Operator on 01-27-2016 Appearance (U) Clear Normal Comprehens tri Internal Medicine Work Phone: Comment on above: PATIENT NOT FASTINGP ERFORMED BY: AMY [facility] Dnvtpk9043 [address] RoadDublin [place] [id number] Bilirubin Ql (U) Negative Normal Comprehe nsive Internal Medicine Work Phone: Comment on above: PATIENT NOT FASTINGP ERFORMED BY: AMY [facility] Wmgqht6780 [address] RoadDublin [place] [id number] Bilirubin Ql (U) Negative Normal Comprehe nsive Internal Medicine Work Phone: Comment on above: PATIENT NOT FASTINGP ERFORMED BY: AMY LabJaiden PerezDirbmg2616 [address] RoadDublin [place] [id number] Color (U) Yellow Normal [facility] Work Phone: Comment on above: PATIENT NOT FASTINGP ERFORMED BY: AMY [facility] Abbrtr1538 [address] RoadDublin [place] [id number] Glucose Ql (U) Negative Normal Comprehens tri Internal Medicine Work Phone: Comment on above: PATIENT NOT FASTINGP ERFORMED BY: AMY Perezlin6370 [address] RoadDublin [place] [id number] Glucose Ql (U) Negative Normal Comprehens tri Internal Medicine Work Phone: Comment on above: PATIENT NOT FASTINGP ERFORMED BY: AMY [facility] Ohywvd2821 [address] RoadDublin [place] [id number] Hemoglobin Ql (U) Negative Normal Compreh ensive Internal Medicine Work Phone: Comment on above: PATIENT NOT FASTINGP ERFORMED BY: AMY [facility] Prdmfl4597 [address] RoadDublin [place] [id number] Hemoglobin Ql (U) Negative Normal Compreh ensive Internal Medicine Work Phone: Comment on above: PATIENT NOT FASTINGP ERFORMED BY: AMY [facility] Emjbqs0654 [address] RoadDublin [place] [id number] Ketones Ql (U) Negative Normal Comprehens tri Internal Medicine Work Phone: Comment on above: PATIENT NOT FASTINGP ERFORMED BY: AMY Vale6370 [address]Dublin [place] [id number] Ketones Ql (U) Negative Normal Comprehens tri Internal Medicine Work Phone: Comment on above: PATIENT NOT FASTINGP ERFORMED BY: AMY Vale6370 [address]Dublin [place] [id number] Leukocyte esterase Test strip Ql (U) Negative Normal [facility] Work Phone: Comment on above: PATIENT NOT FASTINGP ERFORMED BY: AMY Vale6370 [address] [place] [id number] Leukocyte esterase Test strip Ql (U) Negative Normal [facility] Work Phone: Comment on above: PATIENT NOT FASTINGP ERFORMED BY: AMY Vale6370 [address] [place] [id number] Microscopic observation LM Nom (Urine sed) MICRON Normal [facility] Work Phone: Comment on above: Microscopic follows if indicated. PATIENT NOT FASTINGP ERFORMED BY: AMY Vale6370 [address]Dublin [place] [id number] Microscopic observation LM Nom (Urine sed) See below: Normal [facility] Work Phone: Comment on above: Microscopic was yany cated and was performed. PATIENT NOT FASTINGP ERFORMED BY: AMY Perezlin6370 [address] RoadDublin [place] [id number] Nitrite Ql (U) Negative Normal Comprehens tri Internal Medicine Work Phone: Comment on above: PATIENT NOT FASTINGP ERFORMED BY: AMY LabCoabida PerezRpmnnx6689 [address] RoadDublin [place] [id number] Nitrite Ql (U) Negative Normal Comprehens tri Internal Medicine Work Phone: Comment on above: PATIENT NOT FASTINGP ERFORMED BY: AMY WomackCoabida PerezAzclxy4023 [address] RoadDublin [place] [id number] pH (U) 6.0 [pH] Normal 5.0-7.5 [facility] Internal Medicine Work Phone: Comment on above: PATIENT NOT FASTINGP ERFORMED BY: AMY Jasmin Vale6370 [address] RoadDublin [place] [id number] Protein Ql (U) Negative Normal Comprehens tri Internal Medicine Work Phone: Comment on above: PATIENT NOT FASTINGP ERFORMED BY: AMY Jasmin Hbugel3467 [address] RoadDublin [place] [id number] Protein Ql (U) Negative Normal Comprehens tri Internal Medicine Work Phone: Comment on above: PATIENT NOT FASTINGP ERFORMED BY: AMY LabJaiden PerezZwypjx6645 [address] RoadDublin [place] [id number] Specific gravity (U) [Rel density] 1.021 1 Normal 1.005-1.03 0 [facility] Internal Medicine Work Phone: Comment on above: PATIENT NOT FASTINGP ERFORMED BY: AMY Arronabida PerezQhmczg0420 [address] RoadDublin [place] [id number] Urobilinogen (U) [Mass/Vol] 0.2 mg/dL Normal 0.2-1.0 [facility] Internal Medicine Work Phone: Comment on above: PATIENT NOT FASTINGP ERFORMED BY: AMY ShantaJaiden PerezZufovi8334 [address] RoadDublin [place] [id number] Urobilinogen Test strip (U) [Mass/Vol] 0.2 mg/dL Normal 0.2-1.0 [facility] Internal Medicine Work Phone: Comment on above: PATIENT NOT FASTINGP ERFORMED BY: AMY [facility] Wgbxvw6997 [address] RoadDublin [place] [id number] POTASSIUM SERUM ([id number])Order ed By: Wire Bound Box Machine Operator on 06-09-2015 Potassium [Moles/Vol] 5.2 mmol/L Normal 3.5-5.2 [facility] prehensive Internal Medicine Work Phone: Comment on above: PATIENT NOT FASTINGP ERFORMED BY: AMY LabJaiden PerezVtmnwe8912 [address] RoadDublin [place] [id number] Information: [id number] CBC W/Diff, AutomatedOrdered By: Wire Bound Box Machine Operator on 06-04-2015 Absolute Neut 2.5 {X10_3/uL} Normal 2.0-7.7 Compreh ensive Internal Medicine Work Phone: Comment on above: [facility] [address] [place], [address] Basophils/100 WBC (Bld) 1.3 % Abnormal 0-1 [facility] Work Phone: Comment on above: [facility] [address] [place], [address] Eosinophils/100 WBC (Bld) 2.0 % Normal 0-5 [facility] Work Phone: Comment on above: [facility] [address] [place], [address] Erythrocyte distribution width (RBC) [Ratio] 12.9 % Normal 11.6-14.6 [facility] Work Phone: Comment on above: [facility] [address] [place], [address] Hematocrit (Bld) [Volume fraction] 45.6 % Normal 40-54 [facility] Work Phone: Comment on above: [facility] [address] [place], [address] Hemoglobin (Bld) [Mass/Vol] 15.6 g/dL Normal 13.0-16.5 [facility] Work Phone: Comment on above: [facility] [address] [place], [address] IM GRAN % 0.200 % Normal 0.0-0.9 [facility] Work Phone: Comment on above: IG% - Immature Granu locytes (promyelocytes, myelocytes andmetamyelocytes) > 1% indicates that a LEFT SHIFT is Present. [facility] [address] [place], [address] Lymphocytes (Bld) [#/Vol] 1.53 {X10_3/ul} Normal 0.83-4.51 [facility] Work Phone: Comment on above: [facility] [address] [place], [address] Lymphocytes/100 WBC (Bld) 33.3 % Normal 19-41 [facility] Work Phone: Comment on above: [facility] [address]mtvf[address] [place], [address] MCH (RBC) [Entitic mass] 30.4 pg Normal 27.0-32.0 [facility] Work Phone: Comment on above: [facility] [address] [place], [address] MCHC (RBC) [Mass/Vol] 34.2 {g/gl} Normal 32-36 [facility] Internal Medicine Work Phone: Comment on above: [facility] [address] [place], [address] MCV (RBC) [Entitic vol] 88.7 fL Normal 80-94 [facility] Work Phone: Comment on above: [facility] [address] [place], [address] Monocytes/100 WBC (Bld) 8.5 % Normal 0-10 [facility] Work Phone: Comment on above: [facility] [address] [place], [address] Neutrophils/100 WBC (Bld) 54.7 % Normal 47-70 [facility] Work Phone: Comment on above: [facility] [address] [place], [address] Platelet mean volume (Bld) [Entitic vol] 10.8 fL Normal 6.2-12.0 Comprehensiv e Internal Medicine Work Phone: Comment on above: [facility] [address] [place], [id number] Platelets (Bld) [#/Vol] 170 10*3/uL Normal 150-450 [facility] Work Phone: Comment on above: [facility] [address] [place], [place], [id number] RBC (Bld) [#/Vol] 5.14 {M/mm3} Normal 4.6-6.2 Compr ehensive Internal Medicine Work Phone: Comment on above: [facility] [address] [place], [address] RDW SD 41.2 fL Normal 35.1-43.9 [facility] Work Phone: Comment on above: [facility] [address] [place], [place], [address] WBC (Bld) [#/Vol] 4.6 10*3/uL Normal 4.4-11.0 Compre hensive Internal Medicine Work Phone: Comment on above: [facility] [address] [place], [address] Comprehensive Metabolic Prof ilOrdered By: Wire Bound Box Machine Operator on 06-04-2015 Comprehensive metabolic 2000 panel 1.2 {RATIO} Normal 0.9-2.4 Comprehensi ve Internal Medicine Work Phone: Comment on above: [facility] [address] [place], [address] Comprehensive metabolic 2000 panel 5.4 mmol/L Abnormal 3.5-5.1 Comprehensi ve Internal Medicine Work Phone: Comment on above: [facility] [address] [place], [place], [address] Comprehensive metabolic 2000 panel 61 mL/min Normal Comprehensi ve Internal Medicine Work Phone: Comment on above: GFR Calc [facility] [address] [place], [place], [address] Comprehensive metabolic 2000 panel 6.3 g/dL Abnormal 6.4-8.2 Comprehensi ve Internal Medicine Work Phone: Comment on above: [facility] [address] [place], [place], [address] Comprehensive metabolic 2000 panel 12.4 {RATIO} Normal 10-20 Comprehensi ve Internal Medicine Work Phone: Comment on above: [facility] [address] [place], [place], [address] Comprehensive metabolic 2000 panel 85 mg/dL Normal 70-110 Comprehensi ve Internal Medicine Work Phone: Comment on above: [facility] [address] [place], [place], [address] Comprehensive metabolic 2000 panel 8.4 mg/dL Abnormal 8.5-10.1 Comprehensi ve Internal Medicine Work Phone: Comment on above: [facility] [address] [place], [place], [address] Comprehensive metabolic 2000 panel 18 mg/dL Normal 7-18 Comprehensi ve Internal Medicine Work Phone: Comment on above: [facility] [address] [place], [place], [address] Comprehensive metabolic 2000 panel 21 U/L Normal 15-37 Comprehensi ve Internal Medicine Work Phone: Comment on above: [facility] [address] [place], [place], [address] Comprehensive metabolic 2000 panel 1.45 mg/dL Abnormal 0.70-1.30 Comprehensi ve Internal Medicine Work Phone: Comment on above: The validity of the calculated GFR AND GFRAA in patients over70 years has not been determined. Clinical correlation isessential. [facility] [address] [place], [place], [address] Comprehensive metabolic 2000 panel 3.4 g/dL Normal 3.4-5.0 Comprehensi ve Internal Medicine Work Phone: Comment on above: [facility] [address] [place], [place], [id number] Comprehensive metabolic 2000 panel 2.9 g/dL Normal 2.3-3.5 Comprehensi ve Internal Medicine Work Phone: Comment on above: [facility] [address] [place], [place], [id number] Comprehensive metabolic 2000 panel 4 1 Abnormal 5-15 Comprehensi ve Internal Medicine Work Phone: Comment on above: [facility] [address] [place], [place], [id number] Comprehensive metabolic 2000 panel 28.0 mmol/L Normal 21.0-32.0 Comprehensi ve Internal Medicine Work Phone: Comment on above: [facility] [address] [place], [place], [id number] Comprehensive metabolic 2000 panel 109 mmol/L Abnormal 98-107 Comprehensi ve Internal Medicine Work Phone: Comment on above: [facility] [address] [place], [place], [phone] Comprehensive metabolic 2000 panel 51 mL/min Abnormal Comprehensi ve Internal Medicine Work Phone: Comment on above: Non- GFR Calc [facility] [address] [place], [place], [id number] Comprehensive metabolic 2000 panel 141 mmol/L Normal 136-145 Comprehensi ve Internal Medicine Work Phone: Comment on above: [facility] [address] [place], [place], [phone] Comprehensive metabolic 2000 panel 0.60 mg/dL Normal 0.20-1.00 Comprehensi ve Internal Medicine Work Phone: Comment on above: [facility] [address] [place], [phone] Comprehensive metabolic 2000 panel 32 U/L Normal 12-78 Comprehensi ve Internal Medicine Work Phone: Comment on above: [facility] [address] [place], [place], [id number] Comprehensive metabolic 2000 panel 77 U/L Normal 50-136 Comprehensi ve Internal Medicine Work Phone: Comment on above: [facility] [address] [place], [phone] Lipid ProfileOrdered By: Jeremias tem Supervisor [employer] on 06-04-2015 Cholesterol [Mass/Vol] 172 mg/dL Normal Comprehensive Internal Medicine Work Phone: Comment on above: <200 mg/dL Desirable 200-240 mg/dL Borderline >240 mg/dL High Risk [facility] [address] [place], [place], [phone] Cholesterol in HDL [Mass/Vol] 48 mg/dL Normal [facility] Work Phone: Comment on above: Reference Range HDL <40 mg/dL Low HDL Cholesterol HDL >or= 60 mg/dL High HDL Cholesterol [facility] [address] [place], [phone] Cholesterol in LDL [Mass/Vol] 103 mg/dL Normal 0-130 [facility] Work Phone: Comment on above: [facility] [address] [place], [place], [phone] Cholesterol in VLDL [Mass/Vol] 21 mg/dL Normal 5-40 [facility] Work Phone: Comment on above: [facility] [address] [place], [address] Triglyceride [Mass/Vol] 104 mg/dL Normal [facility] Medicine Work Phone: Comment on above: Serum Triglycerides Reference Interval Normal <150 mg/dL Borderline high 150 - 199 mg/dL High 200 - 499 mg/dL Very High > or = 500 mg/dL [facility] [address] [place], [phone] MicroalbOrdered By: Mitzi pickard on 06-04-2015 Creatinine [Mass/Vol] 135.00 mg/dL Normal C omprehensive Internal Medicine Work Phone: Comment on above: [facility] [address] [place], [phone] Creatinine [Mass/Vol] Test not performed Normal Comprehensive [facility] Medicine Work Phone: Comment on above: [facility] [address] [place], [address] Microalb < 5.0 Normal [facility] Medicine Work Phone: Comment on above: [facility] [address] [place], [phone] Thyroid Stim Hormone (TSH)Or dered By: Wire Bound Box Machine Operator on 06-04-2015 TSH Qn 0.98 {uIU/mL} Normal 0.358-3.74 Comprehensi Internal Medicine Work Phone: Comment on above: [facility] [address] [place], [phone] Vitamin D,25 HydroxyOrdered By: Wire Bound Box Machine Operator on 06-04-2015 Vitamin D,25 Hydroxy 30.9 ng/mL Normal [facility] Work Phone: Comment on above: Vitamin D 25([place]) Sta tus Range Deficiency <20 ng/mL (50nmol/L) Insuffciency 20 - 30 ng/mL (50 - 75 nmol/L) Sufficiency 30 - 100 ng/mL (75 - 250 nmol/L) Toxicity >100 ng/mL (>250 nmol/L) [facility] [address] [place], [phone] CBC-Complete Blood Cnt No Di ffOrdered By: Wire Bound Box Machine Operator on 09-29-2014 Erythrocyte distribution width (RBC) [Ratio] 12.8 % Normal 11.6-14.6 [facility] Medicine Work Phone: Comment on above: Test performed at:[facility] [address] [place] [address] Hematocrit (Bld) [Volume fraction] 47.2 % Normal 40-54 [facility] Internal Medicine Work Phone: Comment on above: Test performed at:[facility] [address] [place] [address] Hemoglobin (Bld) [Mass/Vol] 15.8 g/dL Normal 13.0-16.5 [facility] Medicine Work Phone: Comment on above: Test performed at:[facility] [address] [place] [address] MCH (RBC) [Entitic mass] 29.6 pg Normal 27.0-32.0 [facility] Medicine Work Phone: Comment on above: Test performed at:[facility] [address] [place] [address] MCHC (RBC) [Mass/Vol] 33.5 {g/gl} Normal 32-36 Co [facility] Internal Medicine Work Phone: Comment on above: Test performed at:[facility] [address] [place] [address] MCV (RBC) [Entitic vol] 88.6 fL Normal 80-94 [facility] Internal Medicine Work Phone: Comment on above: Test performed at:[facility] [address] [place] [address] Platelet mean volume (Bld) [Entitic vol] 10.9 fL Normal 6.2-12.0 [facility] Internal Medicine Work Phone: Comment on above: Test performed at:[facility] [address] [place] [address] Platelets (Bld) [#/Vol] 185 10*3/uL Normal 150-450 Comprehensive Internal Medicine Work Phone: Comment on above: Test performed at:[facility] [address] [place] [address] RBC (Bld) [#/Vol] 5.33 {M/mm3} Normal 4.6-6.2 Compr [facility] Internal Medicine Work Phone: Comment on above: Test performed at:[facility] [address] [place] [address] WBC (Bld) [#/Vol] 5.0 10*3/uL Normal 4.4-11.0 [facility] Internal Medicine Work Phone: Comment on above: Test performed at:[facility] [address] [place] [address] CBC-Complete Blood Cnt No Diff 41.0 fL Normal 35.1-43.9 [facility] Internal Medicine Work Phone: Comment on above: Test performed at:[facility] [address] [place] [address] PTH,INTACTOrdered By: Wire Bound Box Machine Operator on 09-29-2014 PTH,INTACT 94 pg/mL Abnormal 14-72 [facility] Internal Medicine Work Phone: Comment on above: Test performed at:[facility] [address] [place] [address] Protein+Creatinine Ratio,Uri neOrdered By: Wire Bound Box Machine Operator on 09-29-2014 Protein (U) [Mass/Vol] 7.6 mg/dL Normal Comprehensive Internal Medicine Work Phone: Comment on above: Test performed at:[facility] [address] [place] [address] Protein+Creatinine Ratio,Urine 80 {mg/g_CRE} Normal 0-200 Comprehensive Internal Medicine Work Phone: Comment on above: Test performed at:[facility] [address] [place] [address] Protein+Creatinine Ratio,Urine 94.8 mg/dL Normal Comprehensive Internal Medicine Work Phone: Comment on above: Test performed at:[facility] [address] [place] [address] Renal ProfileOrdered By: Jeremias tem Supervisor [employer] on 09-29-2014 Albumin [Mass/Vol] 3.5 g/dL Normal 3.4-5.0 [facility] Internal Medicine Work Phone: Comment on above: Test performed at:[facility] [address] [place] [address] Calcium [Mass/Vol] 8.2 mg/dL Abnormal 8.5-10.1 [facility] Internal Medicine Work Phone: Comment on above: Test performed at:[facility] [address] [place] [address] Chloride [Moles/Vol] 106 mmol/L Normal 98-107 Comp rehensive Internal Medicine Work Phone: Comment on above: Test performed at:[facility] [address] [place] [address] CO2 [Moles/Vol] 25.0 mmol/L Normal 21.0-32.0 [facility] Work Phone: Comment on above: Test performed at:[facility] [address] [place] [address] Creatinine [Mass/Vol] 1.4 mg/dL Abnormal 0.8-1.3 [facility] prehensive Internal Medicine Work Phone: Comment on above: Test performed at:[facility] [address] [place] [address] Glucose [Mass/Vol] 83 mg/dL Normal 70-110 [facility] Internal Medicine Work Phone: Comment on above: Test performed at:[facility] [address] [place] [address] Potassium [Moles/Vol] 5.1 mmol/L Normal 3.5-5.1 Com prehensive Internal Medicine Work Phone: Comment on above: Test performed at:[facility] [address] [place] [address] Sodium [Moles/Vol] 138 mmol/L Normal 136-145 Compre [facility] Internal Medicine Work Phone: Comment on above: Test performed at:[facility] [address] [place] [address] Urea nitrogen [Mass/Vol] 20 mg/dL Abnormal 7-18 [facility] Internal Medicine Work Phone: Comment on above: Test performed at:[facility] [address] [place] [address] Renal Profile 1.7 mg/dL Abnormal 2.5-4.9 Comprehensi Internal Medicine Work Phone: Comment on above: Test performed at:[facility] [address] [place] [address] Renal Profile 14.3 {RATIO} Normal 10-20 Comprehen [facility] Internal Medicine Work Phone: Comment on above: Test performed at:[facility] [address] [place] [address] Vitamin D,25 HydroxyOrdered By: Wire Bound Box Machine Operator on 09-29-2014 Vitamin D,25 Hydroxy 25.8 ng/mL Normal Comp rehensive Internal Medicine Work Phone: Comment on above: Vitamin D 25([place]) Sta tus Range Deficiency <20 ng/mL (50nmol/L) Insuffciency 20 - 30 ng/mL (50 - 75 nmol/L) Sufficiency 30 - 100 ng/mL (75 - 250 nmol/L) Toxicity >100 ng/mL (>250 nmol/L) Test performed at:[facility] [address] [place] [address] FECAL OCCULT- Tubes sent babatunde e ([id number])Ordered By: Shanthi Hong on 07-08-2014 Hemoglobin.gastrointe stinal Ql (Stl) Negative Normal [facility] Medicine Work Phone: Hemoglobin.gastrointe stinal Ql (Stl) Negative Normal [facility] Internal Medicine Work Phone: CBCDOrdered By: Mitzi [facility] on 06-23-2014 Erythrocyte distribution width (RBC) [Ratio] 12.6 % Normal 11.6-14.6 [facility] Work Phone: Hematocrit (Bld) [Volume fraction] 44.4 % Normal 40-54 [facility] Medicine Work Phone: Hemoglobin (Bld) [Mass/Vol] 15.2 g/dL Normal 13.0-16.5 [facility] Medicine Work Phone: MCH (RBC) [Entitic mass] 30.0 pg Normal 27.0-32.0 [facility] Work Phone: MCHC (RBC) [Mass/Vol] 34.2 {g/gl} Normal 32-36 Co mprehensive Internal Medicine Work Phone: MCV (RBC) [Entitic [...] (Bld) [#/Vol] 5.0 10*3/uL Normal 4.4-11.0 Compre [facility] Internal Medicine Work Phone: CBCD 62.3 % [...] 06-23-2014 Albumin [Mass/Vol] 3.4 g/dL Normal 3.4-5.0 [facility] Internal Medicine Work Phone: Albumin/Globulin [Mass ratio] 1.2 {RATIO} Normal 0.9-2.4 [facility] Work Phone: ALP [Catalytic activity/Vol] 75 U/L Normal 50-136 [facility] Work Phone: ALT [Catalytic activity/Vol] 30 U/L Normal 12-78 [facility] Medicine Work Phone: AST [Catalytic activity/Vol] 20 U/L Normal 15-37 [facility] Work Phone: Bilirubin [Mass/Vol] 0.70 mg/dL Normal 0.00-4.00 Comp rehensive Internal Medicine Work Phone: Calcium [Mass/Vol] 8.1 mg/dL Abnormal 8.5-10.1 [facility] Internal Medicine Work Phone: Chloride [Moles/Vol] 110 mmol/L Abnormal 98-107 Comp rehensive Internal Medicine Work Phone: CO2 [Moles/Vol] 26.0 mmol/L Normal 21.0-32.0 Comprehe [facility] Internal Medicine Work Phone: Creatinine [Mass/Vol] 1.4 mg/dL Abnormal 0.8-1.3 [facility] prehensive Internal Medicine Work Phone: Globulin mass conc (S) 2.8 g/dL Normal 2.7-4.2 [facility] Medicine Work Phone: Glucose [Mass/Vol] 82 mg/dL Normal 70-110 [facility] Internal Medicine Work Phone: Potassium [Moles/Vol] 4.3 mmol/L Normal 3.5-5.1 [facility] prehensive Internal Medicine Work Phone: Sodium [Moles/Vol] 143 mmol/L Normal 136-145 [facility] Internal Medicine Work Phone: Urea nitrogen [Mass/Vol] 20 mg/dL Abnormal 7-18 [facility] Work Phone: Urea nitrogen/Creatinine [Mass ratio] 14.3 {RATIO} Normal 10-20 [facility] Internal Medicine Work Phone: CMP 6.2 g/dL Abnormal 6.4-8.2 [facility] Work Phone: CMP 7 1 Normal 5-15 [facility] Medicine Work Phone: CMP 2.8 g/dL Normal 2.7-4.2 [facility] Work Phone: Metabolic Panel, Basic ([phone])Ordered By: Wire Bound Box Machine Operator on 12-09-2013 Calcium [Mass/Vol] 8.8 mg/dL Normal 8.6-10.2 [facility] Internal Medicine Work Phone: Comment on above: PATIENT NOT FASTINGP ERFORMED BY: [facility]CoSt. Francis Medical CenterPxvhbd0955 [facility] [id number] Information: [id number] Chloride [Moles/Vol] 105 mmol/L Normal 97-108 [facility] Work Phone: Comment on above: PATIENT NOT FASTINGP ERFORMED BY: CB [facility] Dxcwvg8112 [address] [facility] [id number] Information: [id number] CO2 [Moles/Vol] 22 mmol/L Normal 19-28 [facility] Internal Medicine Work Phone: Comment on above: PATIENT NOT FASTINGP ERFORMED BY: CB [facility] Ulfpya4210 [address] [facility] [id number] Information: [id number] Creatinine [Mass/Vol] 1.50 mg/dL Abnormal 0.76-1.27 [facility] Work Phone: Comment on above: PATIENT NOT FASTINGP ERFORMED BY: [facility] Miazdn9950 [facility] [id number] Information: [id number] GFR/1.73 sq M predicted among blacks CKD-EPI (S/P/Bld) [Vol rate/Area] 53 mL/min/1.73 Abnormal [facility] Internal Medicine Work Phone: Comment on above: PATIENT NOT FASTINGP ERFORMED BY: CB [facility] Jpbjes6840 [facility] [id number] Information: [id number] GFR/1.73 sq M predicted among non-blacks CKD-EPI (S/P/Bld) [Vol rate/Area] 46 mL/min/1.73 Abnormal [facility] Internal Medicine Work Phone: Comment on above: PATIENT NOT FASTINGP ERFORMED BY: CB [facility] Jkxbxf2615 [facility] [facility] [id number] Information: [id number] Glucose [Mass/Vol] 85 mg/dL Normal 65-99 [facility]pre [facility] Internal Medicine Work Phone: Comment on above: PATIENT NOT FASTINGP ERFORMED BY: CB [facility] Hxwpep7289 [facility] [id number] Information: [id number] Potassium [Moles/Vol] 5.2 mmol/L Normal 3.5-5.2 [facility] prehensive Internal Medicine Work Phone: Comment on above: PATIENT NOT FASTINGP ERFORMED BY: AMY [facility] Mathqh6287 [facility] [id number] Information: [id number] Sodium [Moles/Vol] 140 mmol/L Normal 134-144 [facility] Internal Medicine Work Phone: Comment on above: PATIENT NOT FASTINGP ERFORMED BY: LabSarah Ville [id number] [facility] [id number] Information: [id number] Urea nitrogen [Mass/Vol] 21 mg/dL Normal 8-27 [facility] Medicine Work Phone: Comment on above: PATIENT NOT FASTINGP ERFORMED BY: LabSarah Ville [id number] [facility] [id number] Information: [id number] Urea nitrogen/Creatinine [Mass ratio] 14 mg/mg Normal 10-22 [facility] Medicine Work Phone: Comment on above: PATIENT NOT FASTINGP ERFORMED BY: AMY WomackSarah Ville 4231070 [facility] [id number] Information: [id number] ANAOrdered By: System Manage r on 12-03-2013 [...] (RBC) [Mass/Vol] 34.3 {g/gl} Normal 32-36 Co [facility] systemsehens[facility] Internal Medicine Work Phone: MCV (RBC) [Entitic vol] 89.0 fL Normal 80-94 [facility] Medicine Work Phone: Platelet mean volume (Bld) [Entitic vol] 11.2 fL Normal 6.2-12.0 Comprehensiv e Internal Medicine Work Phone: Platelets (Bld) [#/Vol] 167 10*3/uL Normal 150-450 [facility] Work Phone: RBC (Bld) [#/Vol] 5.18 {M/mm3} Normal 4.6-6.2 Compr ensive Internal Medicine Work Phone: WBC (Bld) [#/Vol] 5.0 10*3/uL Normal 4.4-11.0 Compre hensive Internal Medicine Work Phone: CBCD 2.6 {X10_3/uL} Normal 2.0-7.7 Comprehens tri Internal Medicine Work Phone: CBCD 1.0 % Normal 0-1 [facility] Work Phone: CBCD 0.200 % Normal 0.0-0.9 [facility] [...] 12-03-2013 Albumin [Mass/Vol] 3.7 g/dL Normal 3.4-5.0 [facility] Internal Medicine Work Phone: Albumin/Globulin [Mass ratio] 1.5 {RATIO} Normal 0.9-2.4 [facility] Work Phone: ALP [Catalytic activity/Vol] 68 U/L Normal 45-117 [facility] Work Phone: ALT [Catalytic activity/Vol] 47 U/L Normal 12-78 [facility] Internal Medicine Work Phone: AST [Catalytic activity/Vol] 22 U/L Normal 0-40 [facility] Internal Medicine Work Phone: Comment on above: PATIENT WAS FASTINGP ERFORMED BY: LabPontiac [facility] Hospital6370 [facility] [id number] Information: [id number] Bilirubin [Mass/Vol] 0.80 mg/dL Normal 0.00-1.00 [facility] rehensive Internal Medicine Work Phone: Calcium [Mass/Vol] 8.5 mg/dL Normal 8.5-10.1 [facility] Internal Medicine Work Phone: Chloride [Moles/Vol] 108 mmol/L Abnormal 98-107 [facility] Work Phone: CO2 [Moles/Vol] 28.0 mmol/L Normal 21.0-32.0 [facility] Internal Medicine Work Phone: Creatinine [Mass/Vol] 1.4 mg/dL Abnormal 0.8-1.3 [facility] prehensive Internal Medicine Work Phone: Globulin mass conc (S) 2.5 g/dL Abnormal 2.7-4.2 [facility] Internal Medicine Work Phone: Glucose [Mass/Vol] 87 mg/dL Normal 70-110 [facility] Internal Medicine Work Phone: Potassium [Moles/Vol] 5.3 mmol/L Abnormal 3.5-5.1 [facility] prehensive Internal Medicine Work Phone: Sodium [Moles/Vol] 139 mmol/L Normal 136-145 Compre hensive Internal Medicine Work Phone: Urea nitrogen [Mass/Vol] 17 mg/dL Normal 7-18 [facility] Work Phone: Urea [...] Phone: HEPATIC FUNCTION PANEL ([phone])Ordered By: Wire Bound Box Machine Operator on 12-03-2013 Albumin [Mass/Vol] 4.1 g/dL Normal 3.5-4.8 Compre hensive Internal Medicine Work Phone: Comment on above: PATIENT WAS FASTINGP ERFORMED BY: [employer] Ocjrhg1263 [facility] [id number] Information: [id number] ALP [Catalytic activity/Vol] 65 [iU]/L Normal 39-117 [facility] Medicine Work Phone: Comment on above: PATIENT WAS FASTINGP ERFORMED BY: [employer]6370 [facility] [id number] Information: [id number] ALP [Catalytic activity/Vol] 65 U/L Normal 39-117 [facility] Medicine Work Phone: Comment on above: PATIENT WAS FASTINGP ERFORMED BY: [facility] Gamqkp1427 [address] [facility] [place] [id number] Information: [id number] ALT [Catalytic activity/Vol] 36 [iU]/L Normal 0-44 [facility] Medicine Work Phone: Comment on above: PATIENT WAS FASTINGP ERFORMED BY: [facility] Nznbuy5386 [facility] [id number] Information: [id number] ALT [Catalytic activity/Vol] 36 U/L Normal 0-44 [facility] Medicine Work Phone: Comment on above: PATIENT WAS FASTINGP ERFORMED BY: [facility]Fult[facility] Nshtit9954 [facility] [facility] [id number] Information: [id number] AST [Catalytic activity/Vol] 22 [iU]/L Normal 0-40 [facility] Medicine Work Phone: Comment on above: PATIENT WAS FASTINGP ERFORMED BY: LabSaint Joseph Health CenterCgjzuo2304 [facility] [id number] Information: [id number] Bilirubin [Mass/Vol] 0.7 mg/dL Normal 0.0-1.2 [facility] Internal Medicine Work Phone: Comment on above: PATIENT WAS FASTINGP ERFORMED BY: LabSaint Joseph Health CenterGivvgc0031 [facility] [id number] Information: [id number] Bilirubin.direct [Mass/Vol] 0.20 mg/dL Normal 0.00-0.40 [facility] Medicine Work Phone: Comment on above: PATIENT WAS FASTINGP ERFORMED BY: [facility] Ueqqnp1014 [address] [facility] [place] [id number] Information: [id number] Protein [Mass/Vol] 6.1 g/dL Normal 6.0-8.5 [facility] Internal Medicine Work Phone: Comment on above: PATIENT WAS FASTINGP ERFORMED BY: [facility] [address] [id number] Information: [id number] MGOrdered By: Wire Bound Box Machine Operator on 12-03-2013 Magnesium mass conc 1.9 mg/dL Normal 1.8-2.4 Compr ehensive Internal Medicine Work Phone: MG 1.9 mg/dL [...] sis scan will follow via computer,mail, or stone lathe operator delivery. The SPE pattern appe ars essentially unremarkable. Evidenceof monoclonal protein is not apparent. Protein electrophore sis scan will follow via computer,mail, or stone lathe operator delivery.Performed at: [address] [id number] Director: Anthony Shannon MD, Phone: [phone] Protein mass conc 0.2 g/dL Normal 0.1-0.4 [...] sis scan will follow via computer,mail, or stone lathe operator delivery.Performed at: [employer] [id number] Director: Anthony Shannon MD, Phone: [phone] The SPE pattern appe ars essentially unremarkable. Evidenceof monoclonal protein is not apparent. Protein electrophore sis scan will follow via computer,mail, or stone lathe operator delivery. PSA (PROSTATE SPECIFIC ANTIG EN) (V76.44)Ordered By: Wire Bound Box Machine Operator on 12-03-2013 Prostate specific Ag [Mass/Vol] ng/mL Normal 0.0-4.0 [facility] Work Phone: Comment on above: Carmen ECLIA methodol ogy. .According to the [place] [employer], Serum PSA shoulddecrease and remain [...] malignant disease. PATIENT WAS FASTINGP ERFORMED BY: [employer] [address] [id number] Prostate specific Ag [Mass/Vol] ng/mL Normal 0.0-4.0 [facility] Work Phone: Comment on above: Carmen ECLIA methodol ogy. .According to the [place] [employer], Serum PSA shoulddecrease and remain [...] malignant disease. PATIENT WAS FASTINGP ERFORMED BY: [employer] [address] [id number] PTHINOrdered By: System Aracelis zurita on 12-03-2013 PTHIN 51 pg/mL Normal 14-72 [facility] Work Phone: SEDOrdered By: System Manage r on 12-03-2013 SED 2 mm/h Normal 0-20 [facility] Work Phone: TESTOSTERONE TOTAL ([id number])Or dered By: Wire Bound Box Machine Operator on 12-03-2013 Testosterone [Mass/Vol] 399 ng/dL Normal 348-1197 [facility] Work Phone: Comment on above: PATIENT WAS FASTINGP ERFORMED BY: [employer] Uhpocn3172 Curiel RoadDublin [place] [id number] Testosterone [Mass/Vol] TESTM Normal [facility] Work Phone: Comment on above: Adult male reference interval is based on a population of lean malesup to 40 years old. PATIENT WAS FASTINGP ERFORMED BY: [employer] LabSensioLabsrp Dcpfyz5469 Curiel RoadDublin [place] [id number] TESTOSTERONE TOTAL ([id number]) TESTM Normal Comprehensive Internal Medicine Work Phone: Comment on above: Adult male reference interval is based on a population of lean malesup to 40 years old. PATIENT WAS FASTINGP ERFORMED BY: [employer] [id number] Curiel RoadDublin [place] [id number] TSH ([id number])Ordered By: Tahmina mooney Supervisor Frame Assembly on 12-03-2013 TSH Qn 1.850 {uIU/mL} Normal 0.450-4.50 0 [facility] Work Phone: Comment on above: PATIENT WAS FASTINGP ERFORMED BY: [employer] [id number]iel RoadDublin [place] [id number] UAOrdered By: Wire Bound Box Machine Operator on 12-03-2013 UA Negative Normal [facility] [...] nmol/L) MYOCARD PERF STRESS/REST MUL TOrdered By: Wire Bound Box Machine Operator on 08-23-2011 MYOCARD PERF STRESS/REST MULT See [...] Collins Mccloud MD CBCDOrdered By: System Manag on 08-17-2011 Basophils/100 WBC (Bld) 0.4 % [...] MCHC (RBC) [Mass/Vol] 34.2 g/dL Normal 32-36 [facility]: MCV (RBC) [Entitic vol] 86.9 fL Normal 80-94 [facility] Work Phone: Monocytes/100 WBC (Bld) 7.2 % Normal 0-10 [facility] Work Phone: Neutrophils (Bld) [#/Vol] 4.1 3/uL Normal 2.0-7.7 [facility] Internal Medicine Work Phone: Neutrophils/100 WBC (Bld) 64.5 % Normal 47-70 [facility] Work Phone: Platelet mean volume (Bld) [Entitic vol] 9.1 fL Normal 6.5-12.0 Comprehens[facility] e Internal Medicine Work Phone: Platelets (Bld) [#/Vol] 195 10*3/uL Normal 150-450 [facility] Internal Medicine Work Phone: RBC (Bld) [#/Vol] 5.41 {M/mm3} Normal 4.6-6.2 [facility]: WBC (Bld) [#/Vol] 6.4 10*3/uL Normal 4.4-11.0 [facility] Work Phone: CHEST, PA AND LATERALOrdered By: Wire Bound Box Machine Operator on 08-17-2011 CHEST, PA AND LATERAL See Note Normal [facility]: Comment on above: PROCEDURE: X-RAY [facility] REASON FOR EXAM: Male, 71 years old. [...] radiologist regarding this report, please call our [id number] line @ Dictated on 08/17/11 1221 by Tracy Miller MDranscribed on 08/18/11 1248 by ITS IMPORTSign by Erwin Miller MD on 08/18/11 1249 Sign by: Erwin Miller MD CKMBOrdered By: System Manag er on 08-17-2011 CK.MB [Mass/Vol] 54 U/L Normal 39-308 Comprehe nsive Internal Medicine Work Phone: Comment on above: RESULTS FAXED 114[address] JENSEN. CK.MB [Mass/Vol] 1.3 ng/mL Normal 0.0-5.0 Comprehe nsive Internal Medicine Work Phone: Comment on above: CK-MB and RI Interpr etation MB Relative Index Non-AMI 5 5 > 4 RESULTS FAXED NANCY. ASHER COMP METABOLICOrdered By: Sy stem Supervisor Frame Assembly on 08-17-2011 Albumin [Mass/Vol] 3.6 g/dL Normal 3.4-5.0 Compre hensive Internal Medicine Work Phone: Comment on above: RESULTS FAXED NANCY. ASHER Albumin/Globulin [Mass ratio] 1.0 {RATIO} Normal 0.9-2.4 [facility] Work Phone: Comment on above: RESULTS FAXED VON STERL[place]. ALP [Catalytic activity/Vol] 61 U/L Normal 50-136 [facility] Work Phone: Comment on above: RESULTS FAXED 1141 [address] [place]. ALT [Catalytic activity/Vol] 28 U/L Normal 12-78 [facility] Work Phone: Comment on above: RESULTS FAXED 114Jennifer [place]. Anion gap [Moles/Vol] 7 mmol/L Normal 5-15 [facility] prehensive Internal Medicine Work Phone: Comment on above: RESULTS FAXED 1141 [address] [place]. AST [Catalytic activity/Vol] 15 U/L Normal 15-37 [facility] Work Phone: Comment on above: RESULTS FAXED 114Jennifer [place]. Bilirubin [Mass/Vol] 0.50 mg/dL Normal 0.00-1.00 [facility] Work Phone: Comment on above: RESULTS FAXED 114Jennifer [address]. Calcium [Mass/Vol] 8.6 mg/dL Normal 8.5-10.1 [facility] Internal Medicine Work Phone: Comment on above: RESULTS FAXED 114Jennifer VON MOAR[place]. Chloride [Moles/Vol] 105 mmol/L Normal 98-107 [facility] Work Phone: Comment on above: RESULTS FAXED 114Jennifer OVN MORALES. CO2 [Moles/Vol] 29.0 mmol/L Normal 21.0-32.0 [facility] Internal Medicine Work Phone: Comment on above: RESULTS FAXED 114Jennifer [address]. Creatinine [Mass/Vol] 1.4 mg/dL Abnormal 0.8-1.3 [facility]: Comment on above: RESULTS FAXED 114Jennifer [address] [place]. GFR/1.73 sq M predicted among blacks MDRD (S/P/Bld) [Vol rate/Area] 64 mL/min/{1.73_m2} Normal Comprehensiv e Internal Medicine Work Phone: Comment on above: RESULTS FAXED 114Jennifer [address]. GFR/1.73 sq M.predicted MDRD (S/P/Bld) [Vol rate/Area] 53 mL/min/{1.73_m2} Abnormal Comprehensiv e Internal Medicine Work Phone: Comment on above: RESULTS FAXED 114Jennifer [address]. GFR/1.73 sq M.predicted MDRD vol rate/area 53 mL/min/{1.73_m2} Abnormal Comprehensiv e Internal Medicine Work Phone: Comment on above: RESULTS FAXED 1141 [address] [place]. Globulin (S) [Mass/Vol] 3.5 g/dL Normal 2.7-4.2 [facility] Internal Medicine Work Phone: Comment on above: RESULTS FAXED 114Jennifer [address]. Glucose [Mass/Vol] 89 mg/dL Normal 70-110 [facility] Internal Medicine Work Phone: Comment on above: RESULTS FAXED 114Jennifer [address]. Potassium [Moles/Vol] 5.0 mmol/L Normal 3.5-5.1 [facility] prehensive Internal Medicine Work Phone: Comment on above: RESULTS FAXED 114Jennifer [address] [place]. Protein [Mass/Vol] 7.1 g/dL Normal 6.4-8.2 [facility] Internal Medicine Work Phone: Comment on above: RESULTS FAXED 114Jennifer [address] [place]. Sodium [Moles/Vol] 141 mmol/L Normal 136-145 [facility] Internal Medicine Work Phone: Comment on above: RESULTS FAXED 114Jennifer [address]. Urea nitrogen [Mass/Vol] 19 mg/dL Abnormal 7-18 [facility] Work Phone: Comment on above: RESULTS FAXED 114Jennifer [address]. Urea nitrogen/Creatinine [Mass ratio] 13.6 {RATIO} Normal 10-20 [facility] Work Phone: Comment on above: RESULTS FAXED 1141 [address]. ESROrdered By: System Manage r on 08-17-2011 ESR (Bld) [Velocity] 3 mm/h Normal 0-20 Comp rehensive Internal Medicine Work Phone: TROPONIN-IOrdered By: Wire Bound Box Machine Operator on 08-17-2011 Troponin I.cardiac [Mass/Vol] ng/mL Normal [facility] Work Phone: Comment on above: TROPONIN-I EXPECTED VALUES <0.05 NEGATIVE 0.06 - 0.59 AT RISK OF [place] > OR = 0.60 SUGGEST [place] RESULTS FAXED 114[address]ENSEN. BRAIN/HEAD W/WO CONTRASTOrde red By: Wire Bound Box Machine Operator on 04-04-2011 BRAIN/HEAD W/WO CONTRAST See Note [...] the brain. Dictated on 04/04/11 1032 by ASHWINI MINOR,CONORUSTranscribed on 04/04/11 1220 by ITS IMPORTSign by ASHWINI MINOR,JORDYN on 04/04/11 1221 Sign by: JORDYN MARADIAGA MD BMPOrdered By: System Manage r on 04-03-2011 Anion gap [Moles/Vol] 7 mmol/L Normal 5-15 Com prehensive Internal Medicine Work Phone: Calcium [Mass/Vol] 8.7 mg/dL Normal 8.5-10.1 Compre hensive Internal Medicine Work Phone: Chloride [Moles/Vol] 104 mmol/L Normal 98-107 Comp rehensive Internal Medicine Work Phone: CO2 [Moles/Vol] 27.0 mmol/L Normal 21.0-32.0 Comprehe nsive Internal Medicine Work Phone: Creatinine [Mass/Vol] 1.6 mg/dL Abnormal 0.8-1.3 [facility] prehensive Internal Medicine Work Phone: GFR/1.73 sq M predicted among blacks MDRD (S/P/Bld) [Vol rate/Area] 56 mL/min/{1.73_m2} Abnormal Comprehens[facility] e Internal Medicine Work Phone: GFR/1.73 sq M.predicted MDRD (S/P/Bld) [Vol rate/Area] 46 mL/min/{1.73_m2} Abnormal Comprehensiv e Internal Medicine Work Phone: GFR/1.73 sq M.predicted MDRD vol rate/area 46 mL/min/{1.73_m2} Abnormal Comprehensiv e Internal Medicine Work Phone: Glucose [Mass/Vol] 103 mg/dL Normal 70-110 [facility] Work Phone: Potassium [Moles/Vol] 4.9 mmol/L Normal 3.5-5.1 [facility] prehensive Internal Medicine Work Phone: Sodium [Moles/Vol] 138 mmol/L Normal 136-145 [facility] Internal Medicine Work Phone: Urea nitrogen [Mass/Vol] 21 mg/dL Abnormal 7-18 [facility] Internal Medicine Work Phone: Urea nitrogen/Creatinine [Mass ratio] 13.1 {RATIO} Normal 10-20 [facility] Internal Medicine Work Phone: PSA, DIAGNOSTICOrdered By: S ystem Supervisor Frame Assembly on 11-16-2006 Prostate specific Ag [Mass/Vol] 1.8 ng/mL Normal 0.0-4.0 [facility] Internal Medicine Work Phone: Comment on above: This test was perfor med using the TPSA method for [employer] chemistry system.Values obtained with different assay methods cannot be usedinterchangably.When changing PSA assays in the course of monitoring apatient, additionaly sequential testing should be carriedout to confirm baseline values. BMPOrdered By: System Manage r on 08-22-2006 Anion gap [Moles/Vol] 8 mmol/L Normal 5-15 [facility] prehensive Internal Medicine Work Phone: Calcium [Mass/Vol] 9.0 mg/dL Normal 8.5-10.1 [facility] Internal Medicine Work Phone: Chloride [Moles/Vol] 104 mmol/L Normal 98-107 [facility] Work Phone: CO2 [Moles/Vol] 27.0 mmol/L Normal 22.0-29.0 [facility] Work Phone: Creatinine [Mass/Vol] 1.5 mg/dL Abnormal 0.8-1.3 [facility]: Glucose [Mass/Vol] 104 mg/dL Normal 70-110 [facility] Internal Medicine Work Phone: Potassium [Moles/Vol] 4.2 mmol/L Normal 3.5-5.1 [facility] prehensive Internal Medicine Work Phone: Sodium [Moles/Vol] 139 mmol/L Normal 136-145 [facility] Internal Medicine Work Phone: Urea nitrogen [Mass/Vol] 22 mg/dL Abnormal 7-18 [facility] Work Phone: Urea nitrogen/Creatinine [Mass ratio] 14.7 {RATIO} Normal 10-20 [facility] Work Phone: CBCDOrdered By: System [facility] on 08-16-2006 Basophils/100 WBC (Bld) 0.6 % [...] MCHC (RBC) [Mass/Vol] 33.7 g/dL Normal 32-36 [facility] prehensive Internal Medicine Work Phone: MCV (RBC) [Entitic vol] 80.1 fL Normal 80-94 [facility] Work Phone: Monocytes/100 WBC (Bld) 8.1 % Normal 0-10 [facility] Work Phone: Neutrophils/100 WBC (Bld) 69.1 % Normal 47-70 [facility] Work Phone: Platelet mean volume (Bld) [Entitic vol] 8.4 fL Normal 6.5-12.0 Comprehens[facility] e [facility] Medicine Work Phone: Platelets (Bld) [#/Vol] 239 10*3/uL Normal 150-450 [facility] Work Phone: RBC (Bld) [#/Vol] 5.32 {M/mm3} Normal 4.6-6.2 Compr ehensive Internal Medicine Work Phone: WBC (Bld) [#/Vol] 6.6 10*3/uL Normal 4.4-11.0 Compre hensive Internal Medicine Work Phone: PRO TIMEOrdered By: System [employer] anager on 08-16-2006 PT Coag (PPP) [Time] 12.6 s Normal 11.7-13.3 Comp rehensive Internal Medicine Work Phone: PT Coag (PPP) [Time] 1.0 s Normal Comp rehensive Internal Medicine Work Phone: PTTOrdered By: System [facility] r on 08-16-2006 aPTT Coag (Bld) [Time] 28.9 s Normal 24.6-36.6 [facility] Work Phone: Vital Signs Date Time Vital Sign Value Performing Clinician Facility 01-20-2025 06:59-0400 Body height 180.[address] Jazlyn Zayas DO Work Phone: [facility] 01-20-2025 06:59-0400 Body mass index (BMI) [Ratio] 32.5 kg/m2 Dr. Jazlyn Zayas DO Work Phone: [facility] 01-20-2025 06:59-0400 Body weight 105.[address] Jazlyn Zayas DO Work Phone: [facility] 01-20-2025 06:59-0400 Diastolic blood pressure 87 mm[Hg] Dr. Jazlyn Zayas DO Work Phone: [facility] 01-20-2025 06:59-0400 Heart rate 76 /min Dr. Jazlyn Zayas DO Work Phone: [facility] 01-20-2025 06:59-0400 Respiratory rate 18 /min Dr. Jazlyn Zayas DO Work Phone: [facility] 01-20-2025 06:59-0400 SaO2% (BldA) [Mass fraction] 94 % Dr. Jazlyn Zayas DO Work Phone: [facility] 01-20-2025 06:59-0400 Systolic blood pressure 136 mm[Hg] Dr. Jazlyn Zayas DO Work Phone: [facility] 12-29-2024 08:53-0400 Body temperature 98.9 [degF] Dr. Jazlyn Zayas DO Work Phone: [facility] 12-29-2024 08:53-0400 Diastolic blood pressure 74 mm[Hg] Dr. Jazlyn Zayas DO Work Phone: [facility] 12-29-2024 08:53-0400 Heart rate 68 /min Dr. Jazlyn Zayas DO Work Phone: [facility] 12-29-2024 08:53-0400 Respiratory rate 16 /min Dr. Jazlyn Zayas DO Work Phone: [facility] 12-29-2024 08:53-0400 SaO2% (BldA) [Mass fraction] 100 % Dr. Jazlyn Zayas DO Work Phone: [facility] 12-29-2024 08:53-0400 Systolic blood pressure 154 mm[Hg] Dr. Jazlyn Zayas DO Work Phone: [facility] 09-25-2024 11:57-0500 Body temperature 98.2 [degF] Dr. Jazlyn Zayas DO Work Phone: [facility] 09-25-2024 11:57-0500 Diastolic blood pressure 80 mm[Hg] Dr. Jazlyn Zayas DO Work Phone: [facility] 09-25-2024 11:57-0500 Heart rate 69 /min Dr. Jazlyn Zayas DO Work Phone: [facility] 09-25-2024 11:57-0500 Respiratory rate 16 /min Dr. Jazlyn Zayas DO Work Phone: [facility] 09-25-2024 11:57-0500 SaO2% (BldA) [Mass fraction] 98 % Dr. Jazlyn Zayas DO Work Phone: [facility] 09-25-2024 11:57-0500 Systolic blood pressure 132 mm[Hg] Dr. Jazlyn Zayas DO Work Phone: [facility] 08-25-2024 09:12-0500 Body height 180.[address] Jazlyn Zayas DO Work Phone: [facility] 08-25-2024 09:12-0500 Body mass index (BMI) [Ratio] 32.8 kg/m2 Dr. Jazlyn Zayas DO Work Phone: [facility] 08-25-2024 09:12-0500 Body weight 106.[address] Jazlyn Zayas DO Work Phone: [facility] 08-25-2024 09:12-0500 Diastolic blood pressure 76 mm[Hg] Dr. Jazlyn Zayas DO Work Phone: [facility] 08-25-2024 09:12-0500 Heart rate 70 /min Dr. Jazlyn Zayas DO Work Phone: [facility] 08-25-2024 09:12-0500 Respiratory rate 18 /min Dr. Jazlyn Zayas DO Work Phone: [facility] 08-25-2024 09:12-0500 SaO2% (BldA) [Mass fraction] 97 % Dr. Jazlyn Zayas DO Work Phone: [facility] 08-25-2024 09:12-0500 Systolic blood pressure 124 mm[Hg] Dr. Jazlyn Zayas DO Work Phone: [facility] 07-20-2024 15:27-0500 Body mass index (BMI) [Ratio] 33.6 kg/m2 Dr. Jazlyn Zayas DO Work Phone: [facility] 07-20-2024 15:27-0500 Body temperature 97.9 [degF] Dr. Jazlyn Zayas DO Work Phone: [facility] 07-20-2024 15:27-0500 Body weight 109.[address] Jazlyn Zayas DO Work Phone: [facility] 07-20-2024 15:27-0500 Diastolic blood pressure 82 mm[Hg] Dr. Jazlyn Zayas DO Work Phone: [facility] 07-20-2024 15:27-0500 Heart rate 106 /min Dr. Jazlyn Zayas DO Work Phone: [facility] 07-20-2024 15:27-0500 SaO2% (BldA) [Mass fraction] 95 % Dr. Jazlyn Zayas DO Work Phone: [facility] 07-20-2024 15:27-0500 Systolic blood pressure 122 mm[Hg] Dr. Jazlyn Zayas DO Work Phone: [facility] 12-07-2023 10:02-0400 Diastolic blood pressure 104 mm[Hg] Dr. Jazlyn Zayas Work Phone: [facility] 12-07-2023 10:02-0400 Heart rate 57 /min Dr. Jazlyn Zayas Work Phone: [facility] 12-07-2023 10:02-0400 Systolic blood pressure 167 mm[Hg] Dr. Jazlyn Zayas Work Phone: [facility] 12-07-2023 09:58-0400 Body temperature 97.4 [degF] Dr. Jazlyn Zayas Work Phone: [facility] 12-07-2023 09:58-0400 Respiratory rate 16 /min Dr. Jazlyn Zayas Work Phone: [facility] 12-07-2023 09:58-0400 SaO2% (BldA) [Mass fraction] 97 % Dr. Jazlyn Zayas Work Phone: [facility] 12-03-2023 20:33-0400 Body height 180.[address] Jazlyn Zayas Work Phone: [facility] 12-03-2023 20:33-0400 Body mass index (BMI) [Ratio] 32.3 kg/m2 Dr. Jazlyn Zayas Work Phone: [facility] 12-03-2023 20:33-0400 Body weight 105.[address] Jazlyn Zayas Work Phone: [facility] 12-03-2023 19:28-0400 Heart rate 60 /min Dr. Jazlyn Zayas Work Phone: [facility] 12-03-2023 19:28-0400 Respiratory rate 17 /min Dr. Jazlyn Zayas Work Phone: [facility] 12-03-2023 19:28-0400 SaO2% (BldA) [Mass fraction] 94 % Dr. Jazlyn Zayas Work Phone: [facility] 12-03-2023 17:53-0400 Body temperature 97.8 [degF] Dr. Jazlyn Zayas Work Phone: [facility] 12-03-2023 17:53-0400 Diastolic blood pressure 94 mm[Hg] Dr. Jazlyn Zayas Work Phone: [facility] 12-03-2023 17:53-0400 Systolic blood pressure 144 mm[Hg] Dr. Jazlyn Zayas Work Phone: [facility] 12-03-2023 14:03-0400 Body height 180.[address] Jazlyn Zayas Work Phone: [facility] 12-03-2023 14:03-0400 Body mass index (BMI) [Ratio] 34.5 kg/m2 Dr. Jazlyn Zayas Work Phone: [facility] 12-03-2023 14:03-0400 Body weight 112.[address] Jazlyn Zayas Work Phone: [facility] 03-22-2023 11:53-0400 Body height 180.34 cm Amina Slarb LUMBER CARRIER [facility]; [facility] Work Phone: 03-22-2023 11:53-0400 Body mass index (BMI) [Ratio] 32.25 kg/m2 Amina Slarb LUMBER CARRIER [facility]; [facility] Work Phone: 03-22-2023 11:53-0400 Body surface area Derived from formula 2.24 m2 Amina Slarb LUMBER CARRIER [facility]; [facility] Work Phone: 03-22-2023 11:53-0400 Body temperature 97.4 [degF] Amina Slarb LUMBER CARRIER [facility]; [facility] Work Phone: Comment on above: Method: Temporal 03-22-2023 11:53-0400 Body weight 104.89 kg Amina Slarb LUMBER CARRIER [facility]; [facility] Work Phone: 03-22-2023 11:53-0400 Diastolic blood pressure 82 mm[Hg] Amina Slarb LUMBER CARRIER [facility]; [facility] Work Phone: Comment on above: Patient Position: Sitting; Cuff Location : Left Arm; Cuff Size: Standard 03-22-2023 11:53-0400 Heart rate 65 /min Amina Slarb LUMBER CARRIER [facility]; [facility] Work Phone: Comment on above: Pattern: Regular 03-22-2023 11:53-0400 Respiratory rate 12 /min Amina Slarb LUMBER CARRIER [facility]; [facility] Work Phone: Comment on above: Pattern: Unlabored 03-22-2023 11:53-0400 SaO2% (BldA) [Mass fraction] 97 % Amina Slarb LUMBER CARRIER [facility]; [facility] Work Phone: Comment on above: Room air 03-22-2023 11:53-0400 Systolic blood pressure 126 mm[Hg] Amina Slarb LUMBER CARRIER [facility]; [facility] Work Phone: Comment on above: Patient Position: Sitting; Cuff Location : Left Arm; Cuff Size: Standard 01-21-2023 15:10-0400 Body height 180.[address] Jazlyn Zayas Work Phone: [facility] 01-21-2023 15:10-0400 Body weight 100.[address] Jazlyn Zayas Work Phone: [facility] 01-21-2023 14:59-0400 Body mass index (BMI) [Ratio] 30.8 kg/m2 Dr. Jazlyn Zayas Work Phone: [facility] 01-21-2023 14:59-0400 Heart rate 68 /min Dr. Jazlyn Zayas Work Phone: [facility] 01-21-2023 14:59-0400 SaO2% (BldA) [Mass fraction] 96 % Dr. Jazlyn Zayas Work Phone: [facility] 01-21-2023 08:39-0400 Body mass index (BMI) [Ratio] 31.1 kg/m2 Dr. Jazlyn Zayas Work Phone: [facility] 01-21-2023 08:39-0400 Body weight 101.[address] Jazlyn Zayas Work Phone: [facility] 01-21-2023 08:39-0400 Diastolic blood pressure 83 mm[Hg] Dr. Jazlyn Zayas Work Phone: [facility] 01-21-2023 08:39-0400 Heart rate 67 /min Dr. Jazlyn Zayas Work Phone: [facility] 01-21-2023 08:39-0400 Respiratory rate 18 /min Dr. Jazlyn Zayas Work Phone: [facility] 01-21-2023 08:39-0400 SaO2% (BldA) [Mass fraction] 96 % Dr. Jazlyn Zayas Work Phone: [facility] 01-21-2023 08:39-0400 Systolic blood pressure 129 mm[Hg] Dr. Jazlyn Zayas Work Phone: [facility] 01-02-2023 12:01-0400 Body mass index (BMI) [Ratio] 31.1 kg/m2 Phillip Jo [employer]ERA TUNING ENGINEER - SCALLOP BINDER Work Phone: [facility] 01-02-2023 12:01-0400 Body weight 101.15 kg Phillip Deysi CAMERA TUNING ENGINEER - [employer]ALL[employer] B[employer]ER Work Phone: [facility] 01-02-2023 12:01-0400 Diastolic blood pressure 78 mm[Hg] Phillipkenrick Jo CAMERA TUNING ENGINEER - [employer]ALL[employer] B[employer]ER Work Phone: [facility] 01-02-2023 12:01-0400 Heart rate 58 /min Phillipkenrick Jo CAMERA TUNING ENGINEER - [employer]ALL[employer]ER Work Phone: [facility] 01-02-2023 12:01-0400 Systolic blood pressure 113 mm[Hg] Phillip Deysi CAMERA TUNING ENGINEER - [employer]ALL[employer] B[employer]ER Work Phone: [facility] 12-25-2022 10:00-0400 Heart rate 68 /min Consuelo Bonner DO Work Phone: [facility] 12-25-2022 08:54-0400 Body temperature 98.2 [degF] Consuelo Bonner DO Work Phone: [facility] 12-25-2022 08:54-0400 Diastolic blood pressure 76 mm[Hg] Consuelo Bonner DO Work Phone: [facility] 12-25-2022 08:54-0400 Respiratory rate 18 /min Consuelo Bonner DO Work Phone: [facility] 12-25-2022 08:54-0400 SaO2% (BldA) [Mass fraction] 96 % Consuelo Bonner DO Work Phone: [facility] 12-25-2022 08:54-0400 Systolic blood pressure 121 mm[Hg] Consuelo Bonner DO Work Phone: [facility] 12-25-2022 06:00-0400 Body mass index (BMI) [Ratio] 30.92 kg/m2 Consuelo Bonner DO Work Phone: [facility] 12-25-2022 06:00-0400 Body weight 100.56 kg Consuelo Bonner DO Work Phone: [facility] 12-21-2022 07:23-0400 Body height 180.3 cm Consuelo Bonner DO Work Phone: [facility] 12-20-2022 12:51-0400 SaO2% (BldA) [Mass fraction] 97.1 % Consuelo Bonner DO Work Phone: [facility] 12-18-2022 11:00-0400 Diastolic blood pressure 81 mm[Hg] Dr. Jazlyn Zayas Work Phone: [facility] 12-18-2022 11:00-0400 Heart rate 59 /min Dr. Jazlyn Zayas Work Phone: [facility] 12-18-2022 11:00-0400 Systolic blood pressure 153 mm[Hg] Dr. Jazlyn Zayas Work Phone: [facility] 12-18-2022 10:30-0400 Respiratory rate 17 /min Dr. Jazlyn Zayas Work Phone: [facility] 12-18-2022 10:30-0400 SaO2% (BldA) [Mass fraction] 98 % Dr. Jazlyn Zayas Work Phone: [facility] 12-18-2022 09:15-0400 Body temperature 97.8 [degF] Dr. Jazlyn Zayas Work Phone: [facility] 12-17-2022 03:10-0400 Body mass index (BMI) [Ratio] 31.8 kg/m2 Dr. Jazlyn Zayas Work Phone: [facility] 12-17-2022 03:10-0400 Body weight 103.[address] Jazlyn Zayas Work Phone: [facility] 08-06-2022 17:00-0500 Body temperature 98.4 [degF] Dr. Jazlyn Zayas Work Phone: [facility] 08-06-2022 17:00-0500 Diastolic blood pressure 98 mm[Hg] Dr. Jazlyn Zayas Work Phone: [facility] 08-06-2022 17:00-0500 Heart rate 94 /min Dr. Jazlyn Zayas Work Phone: [facility] 08-06-2022 17:00-0500 Respiratory rate 16 /min Dr. Jazlyn Zayas Work Phone: [facility] 08-06-2022 17:00-0500 SaO2% (BldA) [Mass fraction] 95 % Dr. Jazlyn Zayas Work Phone: [facility] 08-06-2022 17:00-0500 Systolic blood pressure 148 mm[Hg] Dr. Jazlyn Zayas Work Phone: [facility] 05-02-2022 17:08-0400 Body height 180.34 cm [facility]; [facility] Work Phone: 05-02-2022 17:08-0400 Body mass index (BMI) [Ratio] 32.25 kg/m2 [facility]; [facility] Work Phone: 05-02-2022 17:08-0400 Body surface area Derived from formula 2.24 [facility]2 [facility] Work Phone: 05-02-2022 17:08-0400 Body temperature 96.8 [degF] [facility]; [facility] Work Phone: 05-02-2022 17:08-0400 Body weight 104.89 kg liza [facility]; [facility] Work Phone: 05-02-2022 17:08-0400 Diastolic blood pressure 80 mm[Hg] Kayela Brandi AUTOMATION AND CONTROL ENGINEER [facility]; [facility] Work Phone: Comment on above: Patient Position: Sitting; Cuff Location : Left Arm; Cuff Size: Standard 05-02-2022 17:08-0400 Heart rate 69 /min [facility]; [facility] Work Phone: Comment on above: Pattern: Regular 05-02-2022 17:08-0400 Respiratory rate 16 /min [facility]; [facility] Work Phone: Comment on above: Pattern: Unlabored 05-02-2022 17:08-0400 SaO2% (BldA) [Mass fraction] 96 % [facility] Medicine; [facility] Work Phone: Comment on above: Room air 05-02-2022 17:08-0400 Systolic blood pressure 140 mm[Hg] [facility]; [facility] Work Phone: Comment on above: Patient Position: Sitting; Cuff Location : Left Arm; Cuff Size: Standard 03-13-2022 09:00-0400 Body height 177.[address] Jazlyn Zayas Work Phone: [facility] Work Phone: 03-13-2022 09:00-0400 Body mass index (BMI) [Ratio] 32.8 kg/m2 Dr. Jazlyn Zayas Work Phone: [facility] Work Phone: 03-13-2022 09:00-0400 Body weight 103.[address] Jazlyn Zayas Work Phone: [facility] Work Phone: 03-13-2022 09:00-0400 Diastolic blood pressure 94 mm[Hg] Dr. Jazlyn Zayas Work Phone: [facility] Work Phone: 03-13-2022 09:00-0400 Heart rate 58 /min Dr. Jazlyn Zayas Work Phone: [facility] Work Phone: 03-13-2022 09:00-0400 Respiratory rate 16 /min Dr. Jazlyn Zayas Work Phone: [facility] Work Phone: 03-13-2022 09:00-0400 SaO2% (BldA) [Mass fraction] 98 % Dr. Jazlyn Zayas Work Phone: [facility] Work Phone: 03-13-2022 09:00-0400 Systolic blood pressure 144 mm[Hg] Dr. Jazlyn Zayas Work Phone: [facility] Work Phone: 2022 11:22-0400 Body height 180.34 cm Madai Martin [facility] Internal Medicine; [facility] Work Phone: 2022 11:22-0400 Body mass index (BMI) [Ratio] 32.08 kg/m2 Madai Martin [facility]; [facility] Work Phone: 2022 11:22-0400 Body surface area Derived from formula 2.24 m2 Madai Martin [facility]; [facility] Work Phone: 2022 11:22-0400 Body temperature 96.9 [degF] Madai Martin [facility]; [facility] Work Phone: Comment on above: Method: Thermal Scan 2022 11:22-0400 Body weight 104.33 kg Madai Martin [facility]; [facility] Work Phone: 2022 11:22-0400 Diastolic blood pressure 64 mm[Hg] Madai Martin [facility]; [facility] Work Phone: Comment on above: Patient Position: Sitting; Cuff Location : Left Arm; Cuff Size: Standard 2022 11:22-0400 Heart rate 63 /min Madai Martin CMA [facility]; [facility] Work Phone: Comment on above: Pattern: Regular 2022 11:22-0400 Respiratory rate 16 /min Madai Martin [facility]; [facility] Work Phone: Comment on above: Pattern: Unlabored 2022 11:22-0400 Systolic blood pressure 120 mm[Hg] Madai Martin [facility]; [facility] Work Phone: Comment on above: Patient Position: Sitting; Cuff Location : Left Arm; Cuff Size: Standard 01-29-2022 12:53-0400 Diastolic blood pressure 71 mm[Hg] [facility] Work Phone: 01-29-2022 12:53-0400 Heart rate 69 /min [facility] Work Phone: 01-29-2022 12:53-0400 Respiratory rate 16 /min [facility] Work Phone: 01-29-2022 12:53-0400 SaO2% (BldA) [Mass fraction] 98 % [facility] Work Phone: 01-29-2022 12:53-0400 Systolic blood pressure 121 mm[Hg] [facility] Work Phone: 01-29-2022 08:22-0400 Body height 177.8 cm [facility] Work Phone: 01-29-2022 08:22-0400 Body mass index (BMI) [Ratio] 33.7 kg/m2 [facility] Work Phone: 01-29-2022 08:22-0400 Body temperature 97.6 [degF] [facility] Work Phone: 01-29-2022 08:22-0400 Body weight 106.7 kg [facility] Work Phone: 10-26-2021 07:33-0400 Body height 180.34 cm Ginette Arzate LPN [facility]; [facility] Work Phone: 10-26-2021 07:33-0400 Body mass index (BMI) [Ratio] 32.08 kg/m2 Ginette Arzate LPN [facility]; [facility] Work Phone: 10-26-2021 07:33-0400 Body surface area Derived from formula 2.24 m2 Ginette Arzate [employer] [facility]; [facility] Work Phone: 10-26-2021 07:33-0400 Body weight 104.33 kg Ginette Arzate LPN [facility]; [facility] Work Phone: 10-26-2021 07:33-0400 Diastolic blood pressure 72 mm[Hg] Ginette Arzate LPN [facility]; [facility] Work Phone: Comment on above: Patient Position: Sitting; Cuff Location : Left Arm; Cuff Size: Standard 10-26-2021 07:33-0400 Heart rate 77 /min Ginette Arzate LPN [facility]; [facility] Work Phone: Comment on above: Pattern: Regular 10-26-2021 07:33-0400 Respiratory rate 16 /min Ginette Arzate LPN [facility]; [facility] Work Phone: Comment on above: Pattern: Unlabored 10-26-2021 07:33-0400 SaO2% (BldA) [Mass fraction] 96 % Ginette Arzate [employer] [facility]; [facility] Work Phone: Comment on above: Room air 10-26-2021 07:33-0400 Systolic blood pressure 142 mm[Hg] Ginette Arzate LPN [facility]; [facility] Work Phone: Comment on above: Patient Position: Sitting; Cuff Location : Left Arm; Cuff Size: Standard 08-29-2021 09:24-0500 Body height 180.34 cm Amina Montes De Ocamerced MARTELL [facility]; [facility] Work Phone: 08-29-2021 09:24-0500 Body mass index (BMI) [Ratio] 30.82 kg/m2 Amina Slarb [employer] [facility]; [facility] Work Phone: 08-29-2021 09:24-0500 Body surface area Derived from formula 2.2 m2 Amina Slarb [employer] [facility]; [facility] Work Phone: 08-29-2021 09:24-0500 Body temperature 98.1 [degF] Amina Slarb [employer] [facility]; [facility] Work Phone: 08-29-2021 09:24-0500 Body weight 100.25 kg Amina Slarb [employer] [facility]; [facility] Work Phone: 08-29-2021 09:24-0500 Diastolic blood pressure 80 mm[Hg] Amina Slarb [employer] [facility]; [facility] Work Phone: Comment on above: Patient Position: Sitting; Cuff Location : Left Arm; Cuff Size: Standard 08-29-2021 09:24-0500 Heart rate 67 /min Amina Slarb [employer] [facility]; [facility] Work Phone: Comment on above: Pattern: Regular 08-29-2021 09:24-0500 Respiratory rate 1 /min Amina Slarb [employer] [facility]; [facility] Work Phone: Comment on above: Pattern: Unlabored 08-29-2021 09:24-0500 SaO2% (BldA) [Mass fraction] 97 % Amina Slarb [employer] [facility]; [facility] Work Phone: Comment on above: Room air 08-29-2021 09:24-0500 Systolic blood pressure 138 mm[Hg] Amina Slarb [employer] [facility]; [facility] Work Phone: Comment on above: Patient Position: Sitting; Cuff Location : Left Arm; Cuff Size: Standard 08-17-2021 13:31-0500 Body temperature 98.1 [degF] Dr. Jazlyn Zayas Work Phone: [facility] Work Phone: 01-20-2022 13:31-0500 Diastolic blood pressure 85 mm[Hg] Dr. Jazlyn Zayas Work Phone: [facility] Work Phone: 08-17-2021 13:31-0500 Heart rate 69 /min Dr. Jazlyn Zayas Work Phone: [facility] Work Phone: 08-17-2021 13:31-0500 Respiratory rate 16 /min Dr. Jazlyn Zayas Work Phone: [facility] Work Phone: 08-17-2021 13:31-0500 SaO2% (BldA) [Mass fraction] 97 % Dr. Jazlyn Zayas Work Phone: [facility] Work Phone: 08-17-2021 13:31-0500 Systolic blood pressure 155 mm[Hg] Dr. Jazlyn Zayas Work Phone: [facility] Work Phone: 08-17-2021 11:32-0500 Body height 180.[address] Jazlyn Zayas Work Phone: [facility] Work Phone: 08-17-2021 11:32-0500 Body mass index (BMI) [Ratio] 32.1 kg/m2 Dr. Jazlyn Zayas Work Phone: [facility] Work Phone: 08-17-2021 11:32-0500 Body weight 104.[address] Jazlyn Zayas Work Phone: [facility] Work Phone: 08-14-2021 16:19-0500 Body temperature 97.9 [degF] Dr. Jazlyn Zayas Work Phone: [facility] Work Phone: 08-14-2021 16:19-0500 Diastolic blood pressure 76 mm[Hg] Dr. Jazlyn Zayas Work Phone: [facility] Work Phone: 08-14-2021 16:19-0500 Heart rate 89 /min Dr. Jazlyn Zayas Work Phone: [facility] Work Phone: 08-14-2021 16:19-0500 Respiratory rate 18 /min Dr. Jazlyn Zayas Work Phone: [facility] Work Phone: 08-14-2021 16:19-0500 SaO2% (BldA) [Mass fraction] 96 % Dr. Jazlyn Zayas Work Phone: [facility] Work Phone: 08-14-2021 16:19-0500 Systolic blood pressure 136 mm[Hg] Dr. Jazlyn Zayas Work Phone: [facility] Work Phone: 07-12-2021 08:55-0500 Body temperature 96.9 [degF] Dr. Jazlyn Zayas Work Phone: [facility] Work Phone: 07-12-2021 08:55-0500 Diastolic blood pressure 78 mm[Hg] Dr. Jazlyn Zayas Work Phone: [facility] Work Phone: 07-12-2021 08:55-0500 Heart rate 95 /min Dr. Jazlyn Zayas Work Phone: [facility] Work Phone: 07-12-2021 08:55-0500 Respiratory rate 16 /min Dr. Jazlyn Zayas Work Phone: [facility] Work Phone: 07-12-2021 08:55-0500 SaO2% (BldA) [Mass fraction] 98 % Dr. Jazlyn Zayas Work Phone: [facility] Work Phone: 07-12-2021 08:55-0500 Systolic blood pressure 154 mm[Hg] Dr. Jazlyn Zayas Work Phone: [facility] Work Phone: 05-04-2021 08:47-0400 Body height 180.34 cm Amina Slarb [employer] [facility]; [facility] Work Phone: 05-04-2021 08:47-0400 Body mass index (BMI) [Ratio] 30.82 kg/m2 Amina Slarb [employer] [facility]; [facility] Work Phone: 05-04-2021 08:47-0400 Body surface area Derived from formula 2.2 m2 Amina Slarb [employer] [facility]; [facility] Work Phone: 05-04-2021 08:47-0400 Body temperature 97.1 [degF] Amina Slarb [employer] [facility]; [facility] Work Phone: 05-04-2021 08:47-0400 Body weight 100.25 kg Amina Slarb [employer] [facility]; [facility] Work Phone: 05-04-2021 08:47-0400 Diastolic blood pressure 82 mm[Hg] Amina Slarb [employer] [facility]; [facility] Work Phone: Comment on above: Patient Position: Sitting; Cuff Location : Left Arm; Cuff Size: Standard 05-04-2021 08:47-0400 Heart rate 70 /min Amina Slarb [employer] [facility]; [facility] Work Phone: Comment on above: Pattern: Regular 05-04-2021 08:47-0400 Respiratory rate 16 /min Amina Slarb [employer] [facility]; [facility] Work Phone: Comment on above: Pattern: Unlabored 05-04-2021 08:47-0400 SaO2% (BldA) [Mass fraction] 94 % Amina Slarb [employer] [facility]; [facility] Work Phone: Comment on above: Room air 05-04-2021 08:47-0400 Systolic blood pressure 132 mm[Hg] Amina Elam [employer] [facility]; [facility] Work Phone: Comment on above: Patient Position: Sitting; Cuff Location : Left Arm; Cuff Size: Standard 04-14-2021 07:05-0400 Body height 180.34 cm Jodi Pierce [facility]; [facility] Work Phone: 04-14-2021 07:05-0400 Body mass index (BMI) [Ratio] 30.96 kg/m2 Jodi Pierce [facility]; [facility] Work Phone: 04-14-2021 07:05-0400 Body surface area Derived from formula 2.2 m2 Jodi Pierce [facility]; [facility] Work Phone: 04-14-2021 07:05-0400 Body temperature 97.2 [degF] Jodi Pierce [facility]; [facility] Work Phone: Comment on above: Method: Infrared 04-14-2021 07:05-0400 Body weight 100.7 kg Jodi Pierce [facility]; [facility] Work Phone: 04-14-2021 07:05-0400 Diastolic blood pressure 80 mm[Hg] Jodi Pierce [facility]; [facility] Work Phone: Comment on above: Patient Position: Sitting; Cuff Location : Left Arm; Cuff Size: Standard 04-14-2021 07:05-0400 Heart rate 62 /min Jodi Pierce [facility]; [facility] Work Phone: Comment on above: Pattern: Regular 04-14-2021 07:05-0400 Respiratory rate 18 /min Jodi Pierce [facility]; [facility] Work Phone: Comment on above: Pattern: Unlabored 04-14-2021 07:05-0400 SaO2% (BldA) [Mass fraction] 97 % Jodi Pierce [facility]; [facility] Work Phone: Comment on above: Room air 04-14-2021 07:05-0400 Systolic blood pressure 132 mm[Hg] Jodi Pierce [facility]; [facility] Work Phone: Comment on above: Patient Position: Sitting; Cuff Location : Left Arm; Cuff Size: Standard 10-20-2020 07:14-0400 BMI (Body Mass Index) 30.96 kg/m2 [facility] Comprehen sive Internal Medicine; [facility] Work Phone: 10-20-2020 07:14-0400 Body Temperature 97.1 [degF] [facility]; [facility] Work Phone: Comment on above: Method: Thermal Scan 10-20-2020 07:14-0400 Body weight 100.7 kg [facility]; [facility] Work Phone: 10-20-2020 07:14-0400 BP Diastolic 72 mm[Hg] [facility]; [facility] Work Phone: Comment on above: Patient Position: Sitting; Cuff Location : Left Arm; Cuff Size: Standard 10-20-2020 07:14-0400 BP Systolic 118 mm[Hg] [facility]; [facility] Work Phone: Comment on above: Patient Position: Sitting; Cuff Location : Left Arm; Cuff Size: Standard 10-20-2020 07:14-0400 BSA (Body Surface Area) 2.2 m2 [facility]; [facility] Work Phone: 10-20-2020 07:14-0400 Height 180.34 cm [facility]; [facility] Work Phone: 10-20-2020 07:14-0400 Pulse (Heart Rate) 60 /min [facility] Comprehensiv e Internal Medicine; [facility] Work Phone: Comment on above: Pattern: Regular 10-20-2020 07:14-0400 Pulse Oximetry 99 % Jazlyn Zayas [facility]; [facility] Work Phone: Comment on above: Room air 10-20-2020 07:14-0400 Respiratory Rate 16 /min [facility]; [facility] Work Phone: Comment on above: Pattern: Unlabored 10-20-2020 07:14-0400 SaO2% (BldA) [Mass fraction] 99 % [facility]; [facility] Work Phone: Comment on above: Room air 10-12-2020 11:35-0400 BMI (Body Mass Index) 30.96 kg/m2 Jodi Pierce [facility]; [facility] Work Phone: 10-12-2020 11:35-0400 Body Temperature 97.2 [degF] Jodi Pierce [facility]; [facility] Work Phone: Comment on above: Method: Infrared 10-12-2020 11:35-0400 Body weight 100.7 kg Jodi Pierce [facility]; [facility] Work Phone: 10-12-2020 11:35-0400 BP Diastolic 82 mm[Hg] Jodi Pierce [facility]; [facility] Work Phone: Comment on above: Patient Position: Sitting; Cuff Location : Left Arm; Cuff Size: Standard 10-12-2020 11:35-0400 BP Systolic 140 mm[Hg] Jodi Pierce [facility]; [facility] Work Phone: Comment on above: Patient Position: Sitting; Cuff Location : Left Arm; Cuff Size: Standard 10-12-2020 11:35-0400 BSA (Body Surface Area) 2.2 m2 Jodi Pierce [facility]; [facility] Work Phone: 10-12-2020 11:35-0400 Height 180.34 cm Jodi Pierce [facility]; [facility] Work Phone: 10-12-2020 11:35-0400 Pulse (Heart Rate) 66 /min Jodi Pierce [facility]; [facility] Work Phone: Comment on above: Pattern: Regular 10-12-2020 11:35-0400 Pulse Oximetry 97 % Jazlyn Zayas [facility]; [facility] Work Phone: Comment on above: Room air 10-12-2020 11:35-0400 Respiratory Rate 16 /min Jodi Pierce [facility]; [facility] Work Phone: Comment on above: Pattern: Unlabored 10-12-2020 11:35-0400 SaO2% (BldA) [Mass fraction] 97 % Jodi Pierce [facility]; [facility] Work Phone: Comment on above: Room air 02-06-2019 08:38-0400 BMI (Body Mass Index) 30.13 kg/m2 Jodi Pierce [facility] Work Phone: 02-06-2019 08:38-0400 Body Temperature 97.2 [degF] Jodi Pierce [facility] Work Phone: Comment on above: Method: Temporal 02-06-2019 08:38-0400 Body weight 97.98 kg Jodi Pierce [facility] Work Phone: 02-06-2019 08:38-0400 BP Diastolic 82 mm[Hg] Jodi Pierce [facility] Work Phone: Comment on above: Patient Position: Sitting; Cuff Location : Left Arm; Cuff Size: Standard 02-06-2019 08:38-0400 BP Systolic 124 mm[Hg] Jodi Pierce [facility] Work Phone: Comment on above: Patient Position: Sitting; Cuff Location : Left Arm; Cuff Size: Standard 02-06-2019 08:38-0400 BSA (Body Surface Area) 2.18 m2 Jodi Pierce [facility] Work Phone: 02-06-2019 08:38-0400 Height 180.34 cm Jodi Pierce [facility] Work Phone: 02-06-2019 08:38-0400 Pulse (Heart Rate) 62 /min Jodi Pierce [facility] Work Phone: Comment on above: Pattern: Regular 02-06-2019 08:38-0400 Pulse Oximetry 97 % Jazlyn Zayas [facility] Work Phone: Comment on above: Room air 02-06-2019 08:38-0400 Respiratory Rate 18 /min Jodi Pierce [facility] Work Phone: Comment on above: Pattern: Unlabored 02-06-2019 08:38-0400 SaO2% (BldA) [Mass fraction] 97 % Jodi Pierce [facility] Medicine Work Phone: Comment on above: Room air 01-19-2019 08:30-0400 BMI (Body Mass Index) 30.4 kg/m2 Sagrario Interiano RN [facility] Internal Medicine Work Phone: 01-19-2019 08:30-0400 Body Temperature 98.2 [degF] Sagrario Interiano RN [facility] Medicine Work Phone: Comment on above: Method: Temporal 01-19-2019 08:30-0400 Body weight 98.88 kg Sagrario Interiano RN [facility] Work Phone: 01-19-2019 08:30-0400 BP Diastolic 80 mm[Hg] Sagrario Interiano RN [facility] Work Phone: Comment on above: Patient Position: Sitting; Cuff Location : Left Arm; Cuff Size: Standard 01-19-2019 08:30-0400 BP Systolic 124 mm[Hg] Sagrario Interiano RN [facility] Medicine Work Phone: Comment on above: Patient Position: Sitting; Cuff Location : Left Arm; Cuff Size: Standard 01-19-2019 08:30-0400 BSA (Body Surface Area) 2.19 m2 Sagrario Interiano RN [facility] Work Phone: 01-19-2019 08:30-0400 Height 180.34 cm Sagrario Interiano RN [facility] Work Phone: 01-19-2019 08:30-0400 Pulse (Heart Rate) 78 /min Sagrario Interiano RN [facility] Medicine Work Phone: Comment on above: Pattern: Regular 01-19-2019 08:30-0400 Respiratory Rate 16 /min Sagrario Interiano RN [facility] Work Phone: Comment on above: Pattern: Unlabored 01-19-2019 08:30-0400 Weight 98.88 kg Jazlyn Zayas [facility] Work Phone: 11-26-2018 09:35-0400 BMI (Body Mass Index) 30.4 kg/m2 Jodi Pierce [facility] Work Phone: 11-26-2018 09:35-0400 Body Temperature 96.8 [degF] Jodi Pierce [facility] Work Phone: Comment on above: Method: Temporal 11-26-2018 09:35-0400 Body weight 98.88 kg Jodi Pierce [facility] Work Phone: 11-26-2018 09:35-0400 BP Diastolic 76 mm[Hg] Jodi Pierce [facility] Work Phone: Comment on above: Patient Position: Sitting; Cuff Location : Left Arm; Cuff Size: Standard 11-26-2018 09:35-0400 BP Systolic 108 mm[Hg] Jodi Pierce [facility] Work Phone: Comment on above: Patient Position: Sitting; Cuff Location : Left Arm; Cuff Size: Standard 11-26-2018 09:35-0400 BSA (Body Surface Area) 2.19 m2 Jodi Pierce [facility] Work Phone: 11-26-2018 09:35-0400 Height 180.34 cm Jodi Pierce [facility] Work Phone: 11-26-2018 09:35-0400 Pulse (Heart Rate) 52 /min Jodi Pierce [facility] Work Phone: Comment on above: Pattern: Regular 11-26-2018 09:35-0400 Pulse Oximetry 98 % Jazlyn Zayas [facility] Medicine Work Phone: Comment on above: Room air 11-26-2018 09:35-0400 Respiratory Rate 16 /min Jodi Pierce [employer] [facility] Work Phone: Comment on above: Pattern: Unlabored 11-26-2018 09:35-0400 SaO2% (BldA) [Mass fraction] 98 % Jodi Peirce [facility] Internal Medicine Work Phone: Comment on above: Room air 11-26-2018 09:35-0400 Weight 98.88 kg Jazlyn Zayas [facility] Medicine Work Phone: 11-04-2018 08:30-0400 BMI (Body Mass Index) 30.96 kg/m2 Jodi Pierce [facility] Internal Medicine Work Phone: 11-04-2018 08:30-0400 Body Temperature 97.5 [degF] Jodi Pierce [facility] Internal Medicine Work Phone: Comment on above: Method: Temporal 11-04-2018 08:30-0400 Body weight 100.7 kg Jodi Pierce [facility] Internal Medicine Work Phone: 11-04-2018 08:30-0400 BP Diastolic 78 mm[Hg] Jodi Pierce [facility] Internal Medicine Work Phone: Comment on above: Patient Position: Sitting; Cuff Location : Left Arm; Cuff Size: Standard 11-04-2018 08:30-0400 BP Systolic 131 mm[Hg] Jodi Pierce [facility] Internal Medicine Work Phone: Comment on above: Patient Position: Sitting; Cuff Location : Left Arm; Cuff Size: Standard 11-04-2018 08:30-0400 BSA (Body Surface Area) 2.2 m2 Jodi Pierce [facility] Internal Medicine Work Phone: 11-04-2018 08:30-0400 Height 180.34 cm Jodi Pierce [facility] Internal Medicine Work Phone: 11-04-2018 08:30-0400 Pulse (Heart Rate) 65 /min Jodi Pierce [facility] Internal Medicine Work Phone: Comment on above: Pattern: Regular 11-04-2018 08:30-0400 Pulse Oximetry 98 % Jazlyn Zayas [facility] Internal Medicine Work Phone: Comment on above: Room air 11-04-2018 08:30-0400 Respiratory Rate 16 /min Jodi Pierce CMA [facility] Work Phone: Comment on above: Pattern: Unlabored 11-04-2018 08:30-0400 SaO2% (BldA) [Mass fraction] 98 % Jodi Pierce [employer] ENGINEER [facility] Work Phone: Comment on [...] Phone: 10-09-2018 12:50-0400 BP Diastolic 79 mm[Hg] eYnifer Esquivel RN [facility] Work Phone: [...] 08-26-2017 13:59-0500 Pulse Oximetry 96 % Jazlyn Zayas [facility] Work Phone: Comment on above: Room air 08-26-2017 13:59-0500 Respiratory Rate 18 /min Yenifer Esquivel RN [facility] Work Phone: Comment on above: Pattern: Unlabored 08-26-2017 13:59-0500 SaO2% (BldA) [Mass fraction] 96 % Yenifer Esquivel RN [facility] Work Phone: Comment on above: Room air 08-26-2017 13:59-0500 Weight 100.42 kg Jazlyn Zayas [facility] Work Phone: 12-06-2016 12:09-0400 BMI (Body Mass Index) 30.32 kg/m2 Yenifer Esquivel RN [facility] Work Phone: 12-06-2016 12:09040 Body weight 98.6 kg Yenifer Esquivel RN [facility] Work Phone: 12-06-2016 12:09-0400 BP Diastolic 70 mm[Hg] Yenifer Esquivel RN [facility] Work Phone: Comment on above: Patient Position: Sitting; Cuff Location : Left Arm; Cuff Size: Large 12-06-2016 12:090400 BP Systolic 138 mm[Hg] Yenifer Esquivel RN [facility] Work Phone: Comment on above: Patient Position: Sitting; Cuff Location : Left Arm; Cuff Size: Large 12-06-2016 12:090400 BSA (Body Surface Area) 2.19 m2 Yenifer Esquivel RN [facility] Work Phone: 12-06-2016 12:090400 Height 180.34 cm Yenifer Esquivel RN [facility] Work Phone: 12-06-2016 12:09-0400 Pulse (Heart Rate) 71 /min Yenifer Esquivel RN [facility] Work Phone: Comment on above: Pattern: Regular 12-06-2016 12:09-0400 Pulse Oximetry 98 % Jazlyn Zayas [facility] [...] BMI (Body Mass Index) 30.68 kg/m2 Jazlyn Jose Manuel DO Work Phone: [facility] Work Phone: Comment on above: Dr. Johnson and had a glaucoma test done [facility] 02-10-2016 07:23-0400 Body weight 99.79 kg Jazlyn Jose Manuel DO Work Phone: [facility] Work Phone: Comment on above: Dr. Johnson and had a glaucoma test done [facility] 02-10-2016 07:23-0400 BP Diastolic 82 mm[Hg] Jazlyn Jose Manuel DO Work Phone: [facility] Work Phone: Comment on above: Patient Position: Sitting; Cuff Location : Left Arm; Cuff Size: Large Dr. Johnson and had a glaucoma test done [facility] 02-10-2016 07:23-0400 BP Systolic 118 mm[Hg] Jazlyn Zayas DO Work Phone: [facility] Work Phone: Comment on above: Patient Position: Sitting; Cuff Location : Left Arm; Cuff Size: Large Dr. Johnson and had a glaucoma test done [facility] 02-10-2016 07:23-0400 BSA (Body Surface Area) 2.2 m2 Jazlyn Jose Manuel DO Work Phone: [facility] Work Phone: Comment on above: Dr. Johnson and had a glaucoma test done [facility] 02-10-2016 07:23-0400 Height 180.34 cm Jazlyn Jose Manuel DO Work Phone: [facility] Work Phone: Comment on above: Dr. Johnson and had a glaucoma test done [facility] 02-10-2016 07:23-0400 Pulse (Heart Rate) 66 /min Jazlyn Jose Manuel DO Work Phone: [facility] Work Phone: Comment on above: Pattern: Regular Dr. Johnson and had a glaucoma test done hearing [facility] 02-10-2016 07:23-0400 Pulse Oximetry 97 % Jazlyn Zayas [facility] Work Phone: Comment on above: Room air Dr. Johnson and had a glaucoma test done hearing [facility] 02-10-2016 07:23-0400 Respiratory Rate 18 /min Jazlyn Zayas DO Work Phone: [facility] Work Phone: Comment on above: Pattern: Unlabored Dr. Johnson and had a glaucoma test done hearing [facility] 02-10-2016 07:23-0400 SaO2% (BldA) [Mass fraction] 97 % Jazlyn Zayas DO Work Phone: [facility] Work Phone: Comment on above: Room air Dr. Johnson and had a glaucoma test done hearing [facility] 02-10-2016 07:23-0400 Weight 99.79 kg Jazlyn Zayas [facility] Work Phone: Comment on above: Dr. Johnson and had a glaucoma test done [facility] 01-27-2016 10:42-0400 BMI (Body Mass Index) 31.69 [...] Regular 01-27-2016 10:42-0400 Pulse Oximetry 97 % Jazlyn Zayas [facility] [...] Oral 12-01-2014 09:26-0400 Body weight 100.42 kg Yeniefr Esquivel RN [facility] Work Phone: [...] 07-08-2014 07:49-0500 Weight 101.21 kg Jazlyn Zayas [facility] Internal Medicine Work Phone: 12-09-2013 10:26-0400 BMI (Body Mass Index) 31.32 kg/m2 Suzannekale Singh [facility] Internal Medicine Work Phone: 12-09-2013 10:-040 Body Temperature 96.8 [degF] Suzanne Singh [facility] Internal Medicine Work Phone: Comment on above: Method: Oral 12-09-2013 10: Body weight 101.86 kg [facility] Work Phone: 12-09-2013 10:26-0400 BP Diastolic 64 mm[Hg] Suzanne [facility] Internal Medicine Work Phone: Comment on above: Patient Position: Sitting; Cuff Location : Left Arm; Cuff Size: Standard 12-09-2013 10:260400 BP Systolic 96 mm[Hg] [facility] Work Phone: Comment on above: Patient Position: Sitting; Cuff Location : Left Arm; Cuff Size: Standard 12-09-2013 10:260400 BSA (Body Surface Area) 2.22 m2 Suzanne [facility] Internal Medicine Work Phone: 12-09-2013 10:26040 Height 180.34 cm Suzanne [facility] Internal Medicine Work Phone: 12-09-2013 10:26-0400 Pulse (Heart Rate) 54 /min [facility] Work Phone: Comment on above: Pattern: Regular 12-09-2013 10:26-0400 Pulse Oximetry 98 % Jazlyn Zayas [facility] Work Phone: Comment on above: Room air 12-09-2013 10:26-0400 Respiratory Rate 18 /min Suzanne Singh [facility] Work Phone: Comment on above: Pattern: Unlabored 12-09-2013 10:26-0400 SaO2% (BldA) [Mass fraction] 98 % Suzanne Singh [facility] Work Phone: Comment on above: Room air 12-09-2013 10:260400 Weight 101.86 kg Jazlynconcetta Hawleyon [facility] Work Phone: 12-01-2013 08:25-0400 [...] 11:47-0400 Pulse Oximetry 96 % Jazlyn Zayas [facility] Internal Medicine Work Phone: Comment on above: Room air 11-03-2013 11:47-0400 Respiratory Rate 20 /min Yenifer Esquivel RN [facility] Work Phone: Comment on above: Pattern: Unlabored 11-03-2013 11:47-0400 SaO2% (BldA) [Mass fraction] 96 % Yenifer Esquivel RN [facility] Work Phone: Comment on above: Room air 11-03-2013 11:47-0400 Weight 104.78 kg Jazlyn Zayas [facility] Internal Medicine Work Phone: 10-21-2013 13:16-0400 BMI (Body Mass Index) 32.01 kg/m2 Jazlyn Zayas [facility] Internal Medicine Work Phone: 10-21-2013 13:16-0400 Body Temperature 98.6 [degF] Jazlyn Zayas [facility] Internal Medicine Work Phone: Comment on above: Method: Oral 10-21-2013 13:16-0400 Body weight 104.1 kg Jazlyn Zayas [facility] Internal Medicine Work Phone: 10-21-2013 13:16-0400 BP Diastolic 84 mm[Hg] Jazlyn Zayas [facility] Internal Medicine Work Phone: Comment on above: Patient Position: Sitting; Cuff Location : Left Arm; Cuff Size: Standard 10-21-2013 13:16-0400 BP Systolic 128 mm[Hg] Jazlyn Zayas [facility] Internal Medicine Work Phone: Comment on above: Patient Position: Sitting; Cuff Location : Left Arm; Cuff Size: Standard 10-21-2013 13:16-0400 BSA (Body Surface Area) 2.24 m2 Jazlyn Zayas [facility] Internal Medicine Work Phone: 10-21-2013 13:16-0400 Height 180.34 cm Jazlyn Zayas [facility] Internal Medicine Work Phone: 10-21-2013 13:16-0400 Pulse (Heart Rate) 70 /min Jazlyn Zayas [facility] Internal Medicine Work Phone: Comment on above: Pattern: Regular 10-21-2013 13:16-0400 Pulse Oximetry 97 % Jazlyn Zayas [facility] Internal Medicine Work Phone: Comment on above: Room air 10-21-2013 13:16-0400 Respiratory Rate 17 /min Jazlyn Zayas [facility] Internal Medicine Work Phone: 10-21-2013 13:16-0400 SaO2% (BldA) [Mass fraction] 97 % Jazlyn Zayas DO Work Phone: [facility] Internal Medicine Work Phone: Comment on above: Room air 10-21-2013 13:16-0400 Weight 104.1 kg Jazlyn Zayas [facility] Internal Medicine Work Phone: 12-11-2011 12:210400 BMI (Body Mass Index) 31.52 kg/m2 Shanthi Hong [facility] Internal Medicine Work Phone: 12-11-2011 12:21-0400 Body Temperature 96.4 [degF] [facility] Work Phone: 12-11-2011 12:21-040 Body weight 102.51 kg [facility] Work Phone: 12-11-2011 12:21-0400 BP Diastolic 86 mm[Hg] [facility] Work Phone: Comment on above: Patient Position: Sitting; Cuff Location : Left Arm; Cuff Size: Large 12-11-2011 12:210400 BP Systolic 124 mm[Hg] [facility] Work Phone: Comment on above: Patient Position: Sitting; Cuff Location : Left Arm; Cuff Size: Large 12-11-2011 12:210400 BSA (Body Surface Area) 2.22 m2 [facility] Work Phone: 12-11-2011 12:21040 Height 180.34 cm [facility] Work Phone: 12-11-2011 12:21-0400 Pulse (Heart Rate) 72 /min Shanthi Dillonyarely [facility] Internal Medicine Work Phone: Comment on above: Pattern: Regular 12-11-2011 12:21-0400 Respiratory Rate 18 /min Shanthi Dillonyarely [facility] Work Phone: Comment on [...] 09-24-2007 11:36-0500 Head Circumference 0 cm Jazlyn Zayas [facility] Work Phone: [...] 09-24-2007 11:36-0500 Weight 97.98 kg Jazlyn Zayas [facility] Work Phone: 01-10-2007 13:00-0400 Body Temperature 97.9 [degF] Shanthi Hong [facility] Work Phone: Comment on above: Method: Oral 01-10-2007 13:00-0400 Body weight 0 kg Shanthi Hong [facility] Internal Medicine Work Phone: 01-10-2007 13:00-0400 BP Diastolic 74 mm[Hg] Shanthi Hong [facility] Internal Medicine Work Phone: Comment on above: Patient Position: Sitting; Cuff Location : Left Arm; Cuff Size: Large 01-10-2007 13:00-0400 BP Systolic 128 mm[Hg] Shanthi Dillonyarely [facility] Internal Medicine Work Phone: Comment on above: Patient Position: Sitting; Cuff Location : Left Arm; Cuff Size: Large 01-10-2007 13:00-0400 Head Circumference 0 cm Jazlyn Zayas [facility] Internal Medicine Work Phone: 01-10-2007 13:00-0400 Head Occipital-frontal circumference 0 cm Shanthi Dillonyarely [facility] Internal Medicine Work Phone: 01-10-2007 13:00-0400 Height 0 cm Shanthi Dillonyarely [facility] Internal Medicine Work Phone: 01-10-2007 13:00-0400 Pulse (Heart Rate) 104 /min Shanthi Hong [facility] Internal Medicine Work Phone: Comment on above: Pattern: Regular 01-10-2007 13:00-0400 Respiratory Rate 20 /min Shanthi Blankleonor [facility] Internal Medicine Work Phone: Comment on above: Pattern: Unlabored 01-10-2007 13:00-0400 Weight 0 kg Jazlyn Zayas [facility] Internal Medicine Work Phone: 08-20-2006 14:43-0500 Body Temperature 97.6 [degF] Makenna Randall [facility] Internal Medicine Work Phone: Comment on above: Method: Undefined 08-20-2006 14:43-0500 Body weight 0 kg Makenna Randall [employer] Internal Medicine Work Phone: 08-20-2006 14:43-0500 BP Diastolic 70 mm[Hg] Makenna Randall [facility] Internal Medicine Work Phone: Comment on above: Patient Position: Sitting; Cuff Location : Left Arm; Cuff Size: Standard 08-20-2006 14:43-0500 BP Systolic 110 mm[Hg] Makenna Randall [employer] Internal Medicine Work Phone: Comment on above: Patient Position: Sitting; Cuff Location : Left Arm; Cuff Size: Standard 08-20-2006 14:43-0500 Head Circumference 0 cm Jazlyn Zayas [facility] Internal Medicine Work Phone: 08-20-2006 14:43-0500 Head Occipital-frontal circumference 0 cm Makenna Randall [employer] [facility] Internal Medicine Work Phone: 08-20-2006 14:43-0500 Height 0 cm Makenna Randall [employer] [facility] Internal Medicine Work Phone: 08-20-2006 14:43-0500 Pulse (Heart Rate) 80 /min Makenna Randall [employer] [facility] Internal Medicine Work Phone: Comment on above: Pattern: Regular 08-20-2006 14:43-0500 Respiratory Rate 16 /min Makenna Randall [employer] [facility] Internal Medicine Work Phone: Comment on above: Pattern: Undefined 08-20-2006 14:43-0500 Weight 0 kg Jazlyn Zayas [facility] Internal Medicine Work Phone: 08-12-2006 11:51-0500 BMI (Body Mass Index) 30.13 kg/m2 Maribeth Sanchez RN [facility] Internal Medicine Work Phone: 08-12-2006 11:51-0500 Body Temperature 98.2 [degF] Maribeth Sanchez RN [facility] Internal Medicine Work Phone: Comment on above: Method: Oral 08-12-2006 11:51-0500 Body weight 97.98 kg Maribeth Sanchez RN [facility] Internal Medicine Work Phone: 08-12-2006 11:51-0500 BP Diastolic 86 mm[Hg] Maribeth Sanchez RN [facility] Internal Medicine Work Phone: Comment on above: Patient Position: Sitting; Cuff Location : Left Arm; Cuff Size: Standard 08-12-2006 11:51-0500 BP Systolic 140 mm[Hg] Maribeth Sanchez RN [facility] Internal Medicine Work Phone: Comment on above: Patient Position: Sitting; Cuff Location : Left Arm; Cuff Size: Standard 08-12-2006 11:51-0500 BSA (Body Surface Area) 2.18 m2 Maribeth Sanchez RN [facility] Work Phone: 08-12-2006 11:51-0500 Head Circumference 0 cm Jazlyn Zayas [facility] Work Phone: 08-12-2006 11:51-0500 Head [...] Type Care Provider Facility Start: 02-16-2025 ambulatory Jazlyn Zayas Facilit y:[facility] Start: 02-16-2025 ambulatory Jazlyn Zayas Facilit y:[facility] Start: 01-20-2025 End: 01-20-2025 Patient encounter procedure Liliana Henry [place] -[facility] Work Phone: Start: 01-20-2025 End: 01-20-[address] Jazlyn Zayas DO Work Phone: [facility] Work Phone: Start: 12-29-2024 End: 12-29-2024 Patient encounter procedure [facility] Reed [facility] Work Phone: Start: 12-29-2024 End: 12-29-[address] Jazlyn Zayas DO Work Phone: [facility] Work Phone: Start: 09-25-2024 End: 09-25-2024 Patient encounter procedure Mau Rodriguez [facility] -[facility] Work Phone: Start: 09-25-2024 End: 09-25-[address] Jazlyn Zayas DO Work Phone: [facility] Work Phone: Start: 09-25-2024 End: 09-25-2024 ambulatory Jazlyn Zayas Facility:[facility] Start: 08-25-2024 End: 08-25-2024 Patient encounter procedure Liliana Henry PA -[facility] Work Phone: Start: 08-25-2024 End: 08-25-2024 ambulatory Jazlyn Zayas Facility:[facility] Start: 08-25-2024 End: 08-25-2024 ambulatory Liliana DC Facility:[facility] Start: 07-20-2024 End: 07-20-2024 Patient encounter procedure Clniton Reed PA -[facility] Work Phone: Start: 07-20-2024 End: 07-20-2024 ambulatory Jazlyn Zayas Facility:[facility] Start: 04-10-2024 End: 04-10-2024 ambulatory Jazlyn Zayas Facility:[facility] Start: 12-07-2023 Non-patient / Non-visit Dr. Johnny Zayas Work Phone: [facility] Work Phone: Start: 12-06-2023 Non-patient / Non-visit Dr. Johnny Zayas Work Phone: [facility] Work Phone: Start: 12-05-2023 Non-patient / Non-visit Dr. Johnny Zayas Work Phone: [facility] Work Phone: Start: 12-04-2023 Non-patient / Non-visit Dr. Johnny Zayas Work Phone: [facility] Work Phone: Start: 12-03-2023 End: 12-07-2023 Evaluation and management of inpatient Dr. Jazlyn Zayas Work Phone: [facility]-Medical Surgical 3 Work Phone: Start: 12-03-2023 End: 12-07-[address] Jazlyn Zayas Work Phone: [facility] Work Phone: Start: 12-03-2023 Non-patient / Non-visit Dr. Johnny Zayas Work Phone: [facility] Work Phone: Start: 09-23-2023 Non-patient / Non-visit Dr. Johnny Zayas Work Phone: [facility] Start: 09-23-2023 End: 09-23-[address] Jazlyn Zayas Work Phone: [facility] Work Phone: Start: 09-23-2023 End: 09-23-[address] Jazlyn Zayas Work Phone: [facility]-Cardiovascular Services Work Phone: Start: 09-19-2023 End: 09-19-[address] Jazlyn Zayas Work Phone: [facility] Work Phone: Start: 09-10-2023 End: 09-10-2023 ambulatory [facility] Work Phone: Start: 09-10-2023 End: 09-10-2023 Patient encounter procedure [facility]-Laboratory, Specimen Work Phone: Start: 03-22-2023 End: 03-22-2023 Office outpatient visit 15 minutes Jazlyn Zayas DO Work Phone: [facility] Start: 03-22-2023 Jarrod farrar DO Work Phone: [facility] Start: 01-28-2023 End: 02-25-[address] Jazlyn Zayas Work Phone: [facility] Work Phone: Start: 01-28-2023 End: 02-25-[address] Jazlyn Zayas Work Phone: [facility]-Cardiac Rehab Work Phone: Start: 01-23-2023 End: 01-23-2023 Postop follow up visit related to original px Phillip Jo [employer] Work Phone: [facility] Comment on above: S/P CABG (coronary a rtery bypass graft) (Primary Dx) Start: 01-21-2023 End: 01-21-[address] Jazlyn Zayas Work Phone: [facility] Work Phone: Start: 01-21-2023 End: 01-21-[address] Jazlyn Zayas Work Phone: [facility]-Cardiac Rehab Work Phone: Start: 01-21-2023 End: 01-21-[address] Jazlyn Zayas Work Phone: [facility] Work Phone: Start: 01-04-2023 Non-patient / Non-visit Dr. 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 Work Phone: [facility] Comment on above: S/P CABG (coronary a rtery bypass graft) (Primary Dx) Start: 12-30-2022 ambulatory Amelie Cox RN [facility] Clinical Communication Start: 12-30-2022 Patient encounter [facility] Start: 12-30-2022 Telephone encounter Amelie Farrar [facility] Clinical Communication Comment on above: page Start: 12-28-2022 End: 12-28-2022 Phone Encounter Jazlyn Zayas DO Work Phone: [facility] Start: 12-18-2022 Evaluation and management of inpatient CONSUELO BONNER [facility] Start: 12-18-2022 Telephone encounter Humza tong MD Work Phone: [facility] Comment on above: Prior Authorization Start: 12-18-2022 End: 12-25-2022 Evaluation and management of inpatient Consuelo Bonner DO Work Phone: [facility] Comment on above: S/P CABG (coronary a rtery bypass graft) (Primary Dx); CAD in [place] artery Start: 12-18-2022 Non-patient / Non-visit Dr. Johnny Zayas Work Phone: [facility] Work Phone: Start: 12-18-2022 Non-patient / Non-visit Dr. Johnny Zayas Work Phone: [facility] Start: 12-17-2022 Non-patient / Non-visit Dr. Johnny Zayas Work Phone: [facility] Start: 12-17-2022 End: 12-18-2022 Evaluation and management of inpatient Dr. Jazlyn Zayas Work Phone: [facility]-Progressive Care Unit Work Phone: Start: 10-22-2022 End: 10-22-[address] Jazlyn Zayas Work Phone: [facility] Work Phone: Start: 10-22-2022 End: 10-22-[address] Jazlyn Zayas Work Phone: [facility] Start: 08-17-2022 End: 08-17-[address] Jzalyn Zayas Work Phone: [facility] Work Phone: Start: 08-17-2022 End: 08-17-[address] Jazlyn Zayas Work Phone: [facility] Start: 08-06-2022 End: 08-06-[address] Jazlyn Zayas Work Phone: [facility] Start: 05-03-2022 End: 05-03-2022 Office outpatient visit 25 minutes Jazlyn Zayas DO Work Phone: [facility] Start: 05-03-2022 Jarrod farrar DO Work Phone: [facility] Start: 05-01-2022 End: 05-01-[address] Jazlyn Zayas Work Phone: [facility] Work Phone: Start: 05-01-2022 End: 05-01-[address] Jazlyn Zayas Work Phone: [facility] Start: 04-29-2022 End: 04-29-2022 Annotation/Addendum Jazlyn Zayas DO Work Phone: [facility] Start: 03-13-2022 End: 03-13-[address] [facility] Start: 02-10-2022 End: 02-10-2022 Patient encounter procedure [facility] Start: 2022 End: 02-01-2022 Office outpatient visit 25 minutes Jazlyn Zayas DO Work Phone: [facility] Start: 01-29-2022 End: 01-29-2022 [facility] Start: 12-26-2021 End: 12-26-2021 Phone Encounter Jazlyn Zayas DO Work Phone: [facility] Start: 10-26-2021 End: 10-26-2021 Office outpatient visit 25 minutes Jazlyn Zayas DO Work Phone: [facility] Start: 10-17-2021 End: 10-17-[address] Jazlyn Zayas Work Phone: [facility] Start: 08-29-2021 End: 08-29-2021 Office outpatient visit 10 minutes Jazlyn Zayas DO Work Phone: [facility] Start: 08-17-2021 End: 08-17-[address] Jazlyn Zayas [facility] Start: 08-14-2021 End: 08-14-[address] Jazlyn Zayas Work Phone: [facility] Start: 07-12-2021 End: 07-12-[address] Jazlyn Zayas Work Phone: [facility] Start: 05-04-2021 End: 05-04-2021 Patient encounter procedure Amina Elam LPN [facility]; [facility] Work Phone: Start: 05-04-2021 End: 05-04-2021 Periodic preventive med est patient 65yrs& older Jazlyn Zayas DO Work Phone: [facility] Start: 04-14-2021 End: 04-14-2021 Office outpatient visit 25 minutes Jazlyn Zayas DO Work Phone: [facility] Start: 04-14-2021 End: 04-14-2021 Patient encounter status Jazlyn Hawleyon DO Work Phone: [facility] Start: 03-24-2021 End: 03-24-2021 Phone Encounter Jazlyn Jose Manuel DO Work Phone: [facility] Start: 03-23-2021 Review Jazlyn farrar DO Work Phone: [facility] Start: 10-20-2020 End: 10-20-2020 Office outpatient visit 15 minutes Jazlyn Zayas [facility] Start: 10-12-2020 End: 10-12-2020 Office outpatient visit 15 minutes Jazlyn Zayas [facility] Start: 02-25-[address] Allen Zayas Work Phone: [facility] Start: 02-06-2019 End: 02-06-2019 Office outpatient visit 10 minutes Jazlyn [facility] Start: 01-19-2019 End: 01-19-2019 Office outpatient visit 15 minutes Jazlyn [facility] Start: 12-11-2018 End: 12-11-2018 Phone Encounter Jazlyn Zayas [facility] Start: 11-26-2018 End: 11-26-2018 Office outpatient visit 15 minutes Jazlyn [facility] Start: 11-04-2018 Patient encounter procedure Jazlyn [facility] Start: 11-04-2018 End: 11-04-2018 Office outpatient visit 25 minutes Jazlyn [facility] Start: 10-10-2018 End: 10-10-2018 Phone Encounter Jazlyn Zayas [facility] Start: 10-09-2018 End: 10-10-2018 Office outpatient visit 25 minutes Jazlyn [facility] Start: 10-09-2018 Review Jazlyn Zayas [facility] Start: 09-05-2017 End: 09-05-2017 Phone Encounter Jazlyn Zayas [facility] Start: 08-26-2017 End: 08-26-2017 Office outpatient visit 25 minutes Jazlyn [facility] Start: 12-06-2016 End: 12-06-2016 Office outpatient visit 10 minutes Jazlyn [facility] Start: 02-10-2016 End: 02-10-2016 Patient encounter procedure Jazlyn Zayas DO Work Phone: [facility] Start: 02-10-2016 End: 02-10-2016 Periodic preventive med est patient 65yrs& older Jazlyn [facility] Start: 02-02-2016 End: 02-02-2016 Phone Encounter Jazlyn Jose Manuel [facility] Start: 01-27-2016 End: 01-27-2016 Office outpatient visit 25 minutes Jazlyn Zayas [facility] Start: 06-06-2015 End: 06-06-2015 Phone Encounter Jazlyn Jose Manuel [facility] Start: 06-03-2015 End: 06-03-2015 Office outpatient visit 25 minutes Jazlyn Zayas [facility] Start: 02-28-2015 End: 02-28-2015 Phone Encounter Jazlyn Jose Manuel [facility] Start: 12-01-2014 End: 12-01-2014 Office outpatient visit 15 minutes Jazlyn Zayas [facility] Start: 07-08-2014 End: 07-08-2014 Office outpatient visit 25 minutes Jazlyn Zayas [facility] Start: 07-08-2014 End: 07-08-2014 Patient encounter procedure Jazlyn Jose Manuel DO Work Phone: [facility] Start: 03-01-2014 End: 03-01-2014 Office outpatient visit 5 minutes Jazlyn Zayas [facility] Start: 12-09-2013 End: 12-09-2013 Patient encounter procedure Jazlyn Zayas [facility] Start: 12-01-2013 End: 12-01-2013 Patient encounter procedure Jazlyn Zayas [facility] Start: 11-03-2013 End: 11-03-2013 Patient encounter procedure Jazlyn Zayas [facility] Start: 10-21-2013 End: 10-21-2013 Patient encounter procedure Jazlyn Zayas [facility] Start: 12-11-2011 End: 12-25-2011 Patient encounter procedure Jazlyn Zayas [facility] Start: 08-17-2011 End: 08-17-2011 Patient encounter procedure Jazlyn Zayas [facility] Start: 04-03-2011 End: 04-09-2011 Phone Encounter Jazlyn Zayas [facility] Start: 03-27-2011 End: 03-27-2011 Patient encounter procedure Jazlyn Zayas [facility] Start: 09-25-2007 End: 09-25-2007 Error Encounter Jazlyn Zayas [facility] Start: 09-24-2007 End: 09-24-2007 Patient encounter procedure Jazlyn Zayas [facility] Start: 01-10-2007 End: 01-10-2007 Office outpatient visit 25 minutes Jazlyn Zayas [facility] Start: 08-20-2006 End: 08-20-2006 Office outpatient visit 15 minutes Jazlyn Zayas [facility] Start: 08-12-2006 End: 08-12-2006 Office outpatient visit 15 minutes Jazlyn Zayas [facility] Start: 08-12-2006 End: 08-12-2006 Preprocedural examination done Jazlyn Zayas DO Work Phone: [facility] Start: 06-10-2006 End: 06-10-2006 Historical Summary Jazlynconcetta Zayas [facility] Start: 04-02-2006 End: 04-03-2006 Historical Summary Jazlyn Zayas [facility] Patient encounter procedure Jodi Rosadomarcie [facility] Work Phone: Patient encounter procedure Ginette Arzate LPN [facility]; [facility] Work Phone: Patient encounter procedure Amina Elam LPN [facility]; [facility] Work Phone: Patient encounter procedure Heather Paz CMA [facility]; [facility] Work Phone: Patient encounter procedure Kenneth Melchor LPN [facility]; [facility] Work Phone: Patient encounter procedure Amina Elam LPN [facility]; [facility] Work Phone: Patient encounter status Amina Elam LPN [facility]; [facility] Work Phone: Patient encounter status Ginette Farrar [facility]; [facility] Work Phone: Patient encounter status Heather Bridges MA [facility]; [facility] Work Phone: Patient encounter status Kenneth Melchor LPN [facility]; [facility] Work Phone: Patient encounter status Amina Elam LPN [facility]; [facility] Work Phone: End: 12-07-2008 Preprocedural examination done Wire Bound Box Machine Operator [facility] Work Phone: Comment on above: SEE C/C FOR NAME S Procedures Date Procedure Procedure Detail Performing [...] AND Physical Procedure Note: See Note; NOTES: [facility] Cardiac Rehab [address] [place] [address] CR - History Physical MR#: [id number] Acct: [id number] Name: PAOLAJESUS ALBERTO Giancarlo Lopez Rep #: [id number] : 1940 82 From: Osmany HOLLOWAY, RVT PCP: Dr. Jazlyn Zayas DO DOS: 01/21/23 CR - History Physical [...] Advanced Directives - Advanced Directives Power of Local Intermodal Truck Driver: Yes Living Will: Yes Advance Directives Information Provided: Yes Advance Directives on File: Yes DNR Order?:: No Past Medical History - Covid-19 Screening 65 years or older:: Yes Has a serious heart condition:: Yes - Past Medical Illness Medical History: Past Medical History (Last Updated 01/21/23 @ 09:57 by Liliana DC, PA) Atherosclerotic heart disease of [place] coronary artery without angina pectoris I25.10 CKD [...] Date: 12/20/[address] Martinez at [facility] Surgical History: cholecystectomy, herniorrhaphy - RIH [...] Recreation, Social Activities Hobbies: Woodworking, Other - [employer], gardening Social Environment - Status Marital Status: [...] = Denies (Slash). Left click = Reports ([place]) Review of Present Symptoms: Reports: Shortness of [...] History Family History: Family History (Last Reviewed 12/17/22 [...] 01/21/23 1500 <Electronically signed by Osmany HOLLOWAY, SUNDART> Date Osmany HOLLOWAY RVT Outcome assessment reviewed. [...] Visit Report Procedure Note: See Note; NOTES: [facility] [address] [place] [address] OFFICE VISIT Date of Service: 01/21/23 MR#: [id number] Acct: [id number] Name: JESUS ALBERTO GUEVARA Jr. Rep #: [id number] : 1940 Provider: DAO Cespedes Age/Sex: 82/M Location: [facility] Status: Signed HPI HPI History of Present Illness Details: Jesus Alberto Guevara is an 82-year-old gentleman that presents here today for a hospital follow-up. He has a history of coronary artery disease with angioplasty and stenting to his LAD in 2012. He also has a history of TIA, hyperlipidemia, chronic kidney disease. Patient was admitted to [facility] patient was admitted to [facility] on December 17, 2022 with chest discomfort. He had a mildly elevated troponin. He did undergo a stress test which was felt to be abnormal. 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 Patient underwent [...] Oximetry (%) 96 Intake Visit Reasons: S/P SUMMA CABGx4 (SCANNED) Assistant Engineer Required: No Is patient in pain?: No [...] History (Updated 01/21/23 @ 10:04 by Liliana Henry PA, PA) Atherosclerotic heart disease of [place] coronary artery without angina pectoris CKD (chronic [...] Status: Acute Comment: Per Dr. Martinez at [facility] Plan: I do not have the [...] DAILY Plan Details Follow Up: 3 Months (MMM/RN ENDOSCOPY) Coding Level of Care Code Off vis,est,level 4 Diagnoses S/P CABG x 4 Z95.1 Hyperlipidemia E78.5 Postoperative atrial fibrillation I97.89; I48.91 Coding Level of Care Code Off vis,est,level 4 Diagnoses S/P CABG x 4 Z95.1 Hyperlipidemia E78.5 Postoperative atrial fibrillation I97.89; I48.91 01/21/23 1012 <Electronically signed by Liliana Mendez A> Date Liliana CD Cosigner Signature: Date (if applicable) CC: Dr. Jazlyn Zayas, DO Jazlyn Zayas DO Work Phone: Start: 01-02-2023 History of coronary artery bypass grafting S/P CABG (coronary artery bypass graft) Phillip Deysi CAMERA TUNING ENGINEER - SCALLOP BINDER Work Phone: Start: 12-25-2022 Glucose quantitative blood xcpt reagent strip Humza Nickerson MD Work Phone: Start: 12-25-2022 Radiologic exam chest single view Shayan Emerson [employer]ER[employer] TUNING ENGINEER - SCALL[employer] B[employer]ER Work Phone: Start: 12-25-2022 Basic metabolic panel calcium total Shayan Emerson [employer]ER[employer] TUNING ENGINEER - [employer]ALL[employer] Work Phone: Start: 12-24-2022 Glucose quantitative blood xcpt reagent strip Humza Nickerson MD Work Phone: Start: 12-24-2022 Radiologic exam chest single view Shayan Emerson [employer] TUNING ENGINEER - [employer]ALL[employer] Work Phone: Start: 12-24-2022 Compatibility each unit electronic Phillip Jo [employer] TUNING ENGINEER - SCALL[employer] B[employer] Work Phone: Start: 12-24-2022 End: 12-24-2022 Basic metabolic panel calcium total Shayan Emerson [employer] TUNING ENGINEER - [employer]ALL[employer] Work Phone: Start: 12-23-2022 Radiologic exam abdomen 1 view Manuelito Reyes CAMERA TUNING ENGINEER - SCALLOP BINDER Work Phone: Start: 12-23-2022 Ecg routine ecg w/least 12 lds trcg only w/o i&r Manuelito Brarcooper CAMERA TUNING ENGINEER - SCALLOP BINDER Work Phone: Start: 12-23-2022 Radiologic exam chest single view Shayan Emerson CAMERA TUNING ENGINEER - SCALLOP BINDER Work Phone: Start: 12-23-2022 Calcium ionized Humza Nickerson MD Work Phone: Start: 12-23-2022 Basic metabolic panel calcium total Shayan Emerson CAMERA TUNING ENGINEER - SCALLOP BINDER Work Phone: Start: 12-22-2022 Glucose quantitative blood xcpt reagent strip Humza Nickerson MD Work Phone: Start: 12-22-2022 Glucose quantitative blood xcpt reagent strip Humza Nickerson MD Work Phone: Start: 12-22-2022 Ecg routine ecg w/least 12 lds trcg only w/o i&r Shayan Emerson CAMERA TUNING ENGINEER - SCALLOP BINDER Work Phone: Start: 12-22-2022 Radiologic exam chest single view Shayan Emerson CAMERA TUNING ENGINEER - SCALLOP B[employer]ER Work Phone: Start: 12-22-2022 Basic metabolic panel calcium total Shayan Emerson [employer] TUNING ENGINEER - SCALLOP B[employer]ER Work Phone: Start: 12-21-2022 Radiologic exam chest single view Yosef Garza DO Work Phone: Start: 12-21-2022 Glucose quantitative blood xcpt reagent strip Humza Nickerson MD Work Phone: Start: 12-21-2022 Glucose quantitative blood xcpt reagent strip Humza Nickerson MD Work Phone: Start: 12-21-2022 End: 12-21-2022 Glucose quantitative blood xcpt reagent strip Humza Nickerson MD Work Phone: Start: 12-21-2022 Radiologic exam chest single view Shayan Emerson [employer]ER[employer] TUNING ENGINEER - SCALLOP B[employer]ER Work Phone: Start: 12-21-2022 Glucose quantitative blood xcpt reagent strip Humza Nickerson MD Work Phone: Start: 12-21-2022 Calcium ionized Humza Nickerson MD Work Phone: Start: 12-21-2022 Ecg routine ecg w/least 12 lds trcg only w/o i&r Shayan Emerson [facility] [employer] [facility] Work Phone: Start: 12-21-2022 End: 12-21-2022 Basic metabolic panel calcium total Shayan Emerson [facility] [employer] [facility] Work Phone: Start: 12-20-2022 Glucose quantitative blood xcpt reagent strip Humza Nickerson MD Work Phone: Start: 12-20-2022 End: 12-20-2022 Glucose quantitative blood xcpt reagent strip Humza Nickerson MD Work Phone: Start: 12-20-2022 EXTUBATION Octavia Wesley MD Work Phone: Start: 12-20-2022 Glucose quantitative blood xcpt reagent strip Humza Nickerson MD Work Phone: Start: 12-20-2022 History of coronary artery bypass grafting S/P CABG x 4 Liliana DC Comment on above: Per Dr. Martinez at [facility]: MATTSON to LAD, SVG to 1st diag, SVG to 1st obtuse, SVG to PDA Start: 12-20-2022 Radiologic exam chest single view Shayan Wilson Idania [facility] [employer] [facility] Work Phone: Start: 12-20-2022 End: 12-20-2022 Basic [...] in Blood by Confirmatory method Phillip Jo CAMERA TUNING ENGINEER [employer] Work Phone: Start: 12-20-2022 Basic metabolic panel calcium total Shayan Emerson [employer] TUNING ENGINEER - SCALLOP B[employer]ER Work Phone: Start: 12-20-2022 Blood typing serologic abo Phillip Jo CAMERA TUNING ENGINEER [employer] Work Phone: Start: 12-19-2022 Iadna s aureus methicillin resist amp probe tq Phillip Jo CAMERA TUNING ENGINEER [employer] Work Phone: Start: 12-19-2022 TTE w or wo fol wcon,Doppler Shayan Wilson [employer]ERA TUNING ENGINEER [employer] Work Phone: Start: 12-19-2022 Radiologic exam chest single view Shayan Emerson CAMERA TUNING ENGINEER - [employer] Work Phone: Start: 12-19-2022 Basic metabolic panel calcium total Shayan Wilson [employer] TUNING ENGINEER - [employer] Work Phone: Start: 12-18-2022 Ct thorax w/o contrast material Manuelito Reyes CAMERA TUNING ENGINEER [employer] Work Phone: Start: 12-18-2022 Dup-scan xtr veins complete bilateral study Shayan Wilson [employer] Work Phone: Start: 12-18-2022 Duplex scan extracranial art compl bi study Shayan Wilson [employer]ER[employer] TUNING ENGINEER - [employer] Work Phone: Start: 12-18-2022 Ecg routine ecg w/least 12 lds trcg only w/o i&r Shayan Wilson Idania [employer] TUNING ENGINEER - SCALLOP B[employer]ER Work Phone: Start: 12-18-2022 Urnls dip stick/tablet rgnt auto w/o microscopy Manuelito Reyes CAMERA TUNING ENGINEER - [employer] Work Phone: Start: 12-18-2022 Basic metabolic panel calcium total Manuelito Reyes CAMERA TUNING ENGINEER - SCALL[employer] Work Phone: Start: 12-18-2022 Complete blood count with white cell differential, automated Manuelito Reyes CAMERA TUNING ENGINEER [employer] Work Phone: Start: 12-18-2022 End: 12-18-2022 Thyrotropin [Units/volume] in Serum or Plasma Manuelito Reyes CAMERA TUNING ENGINEER - SCALLOP B[employer]ER Work Phone: Start: 12-17-2022 Radionuclide imaging of perfusion of myocardium under exercise stress Dr. Jazlyn Zayas Work Phone: Start: 12-17-2022 End: 12-17-2022 Chest 1 View (Portable) Procedure Note: See Note; NOTES: [facility] Imaging Services [address] [place] [address] Chest 1 View (Portable) MR#: [id number] Acct: [id number] Name: JESUS ALBERTO GUEVARA JrAnne-Marie Rep #: [id number] : 1940 M 82 From: Coleman Schmitt MD PCP: Dr. Jazlyn Zayas DO Status: REG ER Study: Chest 1 View (Portable) Date of Exam: 12/17/22 Exam# [id number] Ordering Dr: Osvaldo Bolaños MD INDICATION: chest [...] Jazlyn Zayas DO; Dr. Osvaldo Bolaños MD Real Estate Services Coordinator: Signed Jazlyn Zayas DO Work Phone: Start: 12-17-2022 Plain chest X-ray Dr. Jazlyn Zayas Work Phone: Start: 08-06-2022 End: 08-07-2022 Urgent Care Visit Report Procedure Note: See Note; NOTES: [facility] [address] [place] [address] [address] [place] [address] OFFICE VISIT Date of Service: 08/06/22 MR#: [id number] Acct: [id number] Name: JESUS ALBERTO GUEVARA Jr. Rep #: [id number] : 1940 Provider: DAO Rodriguez Age/Sex: 82/M Location: [facility] Status: Signed Intake Vital Signs 08/06/22 17:00 [...] PFSH Medical History Atherosclerotic heart disease of [place] coronary artery without angina pectoris CKD (chronic [...] Exam Const General: cooperative and well developed HENCA Head: normal to inspection and atraumatic Ears: [...] respiratory infection: Status: Acute Orders: Orders POC Anadi Covid FLUAB PCR 08/06/22 Plan Patient tested [...] Visit Report Procedure Note: See Note; NOTES: [facility] [address] [place] [address]. [address] [place] [address] OFFICE VISIT Date of Service: 03/13/22 MR#: [id number] Acct: [id number] Name: JESUS ALBERTO GUEVARA Jr. Rep #: [id number] : 1940 Provider: Dr. Ronnie Khan MD Age/Sex: 82/M Location: [facility] Status: Signed HPI HPI History of Present [...] for his age. He does go to [facility] several times a week. He does not [...] 03/13/22] Ejection fraction %: 60 to 64 [facility] Medical History Atherosclerotic heart disease of [place] coronary artery without angina pectoris CKD (chronic [...] changes. He is scheduled to see the twisting operator and depending on the findings further recommendations [...] MD Cosigner Signature: Date (if applicable) CC: DO Jazlyn Mason DO Work Phone: Start: 02-10-2022 End: 02-11-2022 Thyroid Comments: See Note; NOTES: [facility] Imaging Services [address] [place] [address] Thyroid MR#: [id number] Acct: [id number] Name: JESUS ALBERTO GUEVARA Jr. Rep #: [id number] : 1940 M 82 From: Josemanuel Szymanski MD PCP: Dr. Jazlyn Zayas DO Status: REG CLI Study: Thyroid Date of Exam: 02/10/22 Exam# [id number] Ordering Dr: Jazlyn Zayas DO STUDY: THYROID [...] EDT , CC: Dr. Jazlyn Zayas DO Real Estate Services Coordinator: Signed Jazlyn Zayas DO Work Phone: Start: 02-10-2022 US scan of thyroid Start: 01-29-2022 End: 01-29-2022 Chest 1 View (Portable) Comments: See Note; NOTES: [facility] Imaging Services [address] [place] [address] Chest 1 View (Portable) MR#: [id number] Acct: [id number] Name: JESUS ALBERTO GUEVARA Rep #: [id number] : 1940 M 81 From: Wu Jurado MD PCP: Dr. Jazlyn Zayas DO Status: REG ER Study: Chest 1 View (Portable) Date of Exam: 01/29/22 Exam# [id number] Ordering Dr: Chris Diane DO STUDY: X-RAY [...] Chris Diane DO; Dr. Jazlyn Zayas DO Real Estate Services Coordinator: Signed Jazlyn Zayas DO Work Phone: Start: 01-29-2022 Plain chest X-ray Start: 01-29-2022 CT of thorax, abdomen and pelvis with contrast Start: 01-29-2022 End: 01-29-2022 CTA Chst, Abd, Pel W and/or WO Comments: See Note; NOTES: [facility] Imaging Services [address] [facility] [place] [address] CTA Chst, Abd, Pel W and/or WO MR#: [id number] Acct: [id number] Name: JESUS ALBERTO GUEVARA Rep #: [id number] : 1940 M 81 From: Wu Jurado MD PCP: Dr. Jazlyn Zayas DO Status: REG ER Study: CTA Chst, Abd, Pel W and/or WO Date of Exam: 0 01/29/22 Exam# [id number] Ordering Dr: Chris Diane DO INDICATION: dissection [...] Chris Diane DO; Dr. Jazlyn Zayas DO Real Estate Services Coordinator: Signed Jazlyn Zayas DO Work Phone: Start: 01-29-2022 End: 01-29-2022 Emergency Department Summary Comments: See Note; NOTES: [facility] Records Department [address] [place] [address] Emergency Department Summary 01/29/22 MR#: [id number] Acct: [id number] Name: JESUS ALBERTO GUEVARA Jr. Rep #: [id number] : 1940 81 From: Chris Diane DO PCP: Dr. Jazlyn Zayas DO Status:REG ER Location: ED HPI History of Present Illness Chief Complaint: Chest Pain Narrative Narrative: 81-year-old male with history of CAD, cardiac stent, [place] presenting with chest pain. He states it starts in his mid back and radiates towards his chest and towards the right. He states this comes in waves and last minutes. He denies shortness of breath, lightheadedness, diaphoresis. He states it does feel similar to his previous [place]. He is a patient of Dr. Khan. Patient does state that he recently came back from [place]. [facility] Medical History Atherosclerotic heart disease of [place] coronary artery without angina pectoris CKD (chronic [...] He states it feels like his previous [place]. The patient's blood pressure is elevated at [...] % (Auto) 59.0 Lymph % (Auto) 27.8 [place] % (Auto) 8.5 Eos % (Auto) 3.4 [...] 9:29 EDT Reading Location ID and State: [id number] Tel , Service support , Chest X-Ray 01/29/22 08:35 IMPRESSION: Normal x-ray examination of the chest. Electronically Signed: Wu Jurado MD at 9:08 EDT Reading Location ID and State: [id number] / [employer] , Service support , Discharge Plan [...] your Primary Care Provider. Call [facility] ([phone]) or report to the closest Emergency Room. Call 911 if necessary. 01/29/22 1204 <Electronically signed by Chris Diane DO> Cosigner Signature (if applicable): CC: Dr. Jazlyn Zayas DO Signed Jazlyn Zayas DO Work Phone: Start: 01-29-2022 End: 2022 12 Lead EKG Comments: See Note; NOTES: [facility] Cardiovascular Services [address] [place] [address] 12 Lead EKG 01/29/22825 MR#: [id number] Acct: [id number] Name: PAOLAJESUS ALBERTO Giancarlo Lopez Rep #: [id number] : 1940 81 From: Collins Mccloud MD [...] wave progression Confirmed by POWER MINOR, COLLINS ([id number]), editorial cartoonist TAWNYA ZAVALA ([id number]) on 2022 8:14:06 AM Referred By: Confirmed By:COLLINS MCCLOUD MD 2214 Date Collins Mccloud MD CC: Dr. Chris Diane, DO; Dr. Jazlyn Zayas, DO Signed Jazlyn Zayas DO Work Phone: Start: 08-15-2021 End: 08-15-2021 Virtual Office Visit Comments: See Note; NOTES: [facility] Services [address] [place] [address] OFFICE VISIT Date of Service: 08/15/21 MR#: [id number] Acct: [id number] Patient: JESUS ALBERTO GUEVARA Jr. Rep #: [id number] : 1940 Provider: JOSUE benson Age/Sex: 81/M Location: [facility] Status: Signed Intake Intake Visit Reasons: COVID, [place] Chief Complaint: COVID-19 Allergies No Known Allergies Allergy (Verified 08/15/21 09:54) [facility] Medical History (Updated 08/15/21 @ 09:49 by Jailene Miller FLAT CUTTER, FLAT CUTTER-C) Atherosclerotic heart disease of [place] coronary artery without angina pectoris CKD (chronic [...] to patient. This visit was conducted during COVID-19 pandemic. Details: Patient was informed that this visit will be billed to patient. This visit was conducted during COVID-19 pandemic. Statement read to the patient: This [...] avoid sharing personal items, clean and disinfect "high touch" surfaces, and frequent handwashing) according to the CDC guidelines. The fact sheet will be provided prior to the administration of the medication. Oral medications have received authorization from the FDA to treat [id number] COVID-19 in patients at high risk for [...] infusion therapy. COVID + test date: 08/14/21 Michael MAURO Sx Onset: 08/10/21 Sx: sore throat, "Trigeminal neuralgia" O2: NO Age: 81 Vaccine: NO Qualifier: [...] with no video. Quality Reporting Tobacco Screening ([facility] 138) Smoking Status: Former smoker Coding Level of Care Code New Pt Level 1 Telephone Patient Type New History Problem Focused Exam Problem Focused Medical Decision Making Straight Forward Diagnoses COVID-19 U07.1 CKD (chronic kidney disease) stage 3, GFR 30-59 ml/min N18.3 Over 65 years old Time Spent (min) 10 Comment [id number] Assessment and Plan Assessment and Plan (1) [...] Acute 08/15/21 0958 <Electronically signed by Jailene Miller NP FLAT CUTTER-C> Date Jailene Miller NP FLAT CUTTER-C Cosigner Signature: Date (if applicable) CC: Dr. Jazlyn Zayas, DO Jazlyn Zayas DO Work Phone: Start: 08-14-2021 End: 08-15-2021 Urgent Care Visit Report Comments: See Note; NOTES: [facility] [address] [place] [address] [address] [place] [address] OFFICE VISIT Date of Service: 08/14/21 MR#: [id number] Acct: [id number] Name: JESUS ALBERTO GUEVARA Jr. Rep #: [id number] : 1940 Provider: DAO Rodriguez Age/Sex: 81/M Location: [facility] Status: Signed Intake Vital Signs 08/14/21 17:19 BP 136/76 H Blood Pressure Location Lt brachial Position Sitting Respiration 18 Pulse 89 Pulse Source Monitor Temp 97.9 F Temp Source Temporal Pulse Oximetry (%) 96 Oxygen Delivery Method room air Intake Visit Reasons: COVID TEST Chief Complaint: COVID-19 Allergies No Known Allergies Allergy (Verified 03/07/21 09:03) [facility] Medical History (Updated 08/14/21 @ 17:38 by Mau DC, PA) Atherosclerotic heart disease of [place] coronary artery without angina pectoris CKD (chronic [...] <Electronically signed by Mau DC> Date Mau Kruse Signature: Date (if applicable) CC: Jazlyn Zayas DO Work Phone: Start: 07-12-2021 End: 07-12-2021 Urgent Care Visit Report Comments: See Note; NOTES: [facility] [address] [place] [address] [address] [place] [address] OFFICE VISIT Date of Service: 07/12/21 MR#: [id number] Acct: [id number] Name: JESUS ALBERTO GUEVARA JrAnne-Marie Rep #: [id number] : 1940 Provider: DAO wiggins Age/Sex: 81/M Location: [facility] Status: Signed Intake Vital Signs 07/12/21 09:55 BP 154/78 H Blood Pressure Location Lt brachial Position Sitting Respiration 16 Pulse 95 Pulse Source Monitor Temp 96.9 F L Temp Source Temporal Pulse Oximetry (%) 98 Oxygen Delivery Method room air Intake Visit Reasons: COVID TEST Chief Complaint: COVID-19 Allergies No Known Allergies Allergy (Verified 03/07/21 09:03) [facility] Medical History (Updated 07/12/21 @ 10:02 by Clinton DC, PA) Atherosclerotic heart disease of [place] coronary artery without angina pectoris CKD (chronic [...] does not have COVID-19 before reporting to [employer] to donate. No other complaints at this [...] for COVID-19: Status: Acute Plan - Clinton DC, PA: Cepheid POC screening in office today. Results called to patient at his request. Patient states acknowledging understanding all the above. Follow-up with PCP on an as-needed basis only. Patient states acknowledging understanding all the above. Plan Details Other Orders: Orders: POC CEPHEID RESP PANEL Today Z20.822 07/12/21 1003 <Electronically signed by Clinton DC PA> Date Clinton DC [facility] Signature: Date (if applicable) CC: Jazlyn Zayas DO Work Phone: Start: 03-20-2021 End: 03-20-2021 Stress Report Comments: See Note; NOTES: [facility] [address] [place] [address] MR#: [id number] Acct: [id number] Name: JESUS ALBERTO GUEVARA Jr. Rep #: [id number] : 1940 81 From: Ronnie Khan MD [...] at a high workload. Preserved ejection fraction. 03/20/211703 <Electronically signed by Rnonie Khan MD> Date Ronnie Khan MD CC: DAO Henry; Dr. Jazlyn Zayas, Date Dictated: 03/20/211701 Date Transcribed: 03/20/211701 Real Estate Services Coordinator: [place] Signed Jazlyn Zayas DO Work Phone: Start: 03-07-2021 End: 03-08-2021 Cardiology Visit Report Comments: See Note; NOTES: [facility] [address] [place] [address] OFFICE VISIT Date of Service: 03/07/21 MR#: [id number] Acct: [id number] Name: JESUS ALBERTO GUEVARA . Rep #: [id number] : 1940 Provider: DAO Cespedes Age/Sex: 81/M Location: [facility] Status: Signed HPI HPI History of Present [...] for his age. He does go to [place] several times a week. 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 Plan Details Follow Up: 1 Year (RN ENDOSCOPY) Coding Level of Care Code Off vis,est,level 3 Diagnoses Atherosclerotic heart disease of [place] coronary artery without angina pectoris I25.10 Coding Level of Care Code Off vis,est,level 3 Diagnoses Atherosclerotic heart disease of [place] coronary artery without angina pectoris I25.10 Supplemental Info Supplemental Information Labs: No Data to Display Diagnostics: Electrocardiogram Pulmonary: No Data to Display 03/08/21 0842 <Electronically signed by Liliana West> Date Liliana Merrillignruddy Signature: Date (if applicable) CC: Dr. Jazlyn Zayas, DO Jazlyn Zayas DO Work Phone: Start: 11-18-2020 End: 11-18-2020 Pelvis 1 or 2 Views Comments: See Note; NOTES: [facility] Imaging Services [address] [place] [address] Pelvis 1 or 2 Views MR#: [id number] Acct: [id number] Name: JESUS ALBERTO GUEVARA . Rep #: [id number] : 1940 M 80 From: Shine crockett MD PCP: Dr. Jazlyn Zayas DO Status: [facility] Study: Pelvis 1 or 2 Views Date of Exam: 11/18/20 Exam# [id number] Ordering Dr: Rosalba Lester MD INDICATION: PAIN [...] Jazlyn Zayas DO; Dr. Rosalba Lester MD Real Estate Services Coordinator: Signed Jazlyn Zayas DO Work Phone: Start: 02-25-2020 End: 03-01-2020 12 Lead EKG performed by [facility] Comments: See Note; NOTES: [facility] [address] [facility] [place] [address] 12 Lead EKG performed by [facility] 02/25/20 1349 MR#: [id number] Acct: [id number] Name: JESUS ALBERTO GUEVARA . Rep #: [id number] : 1940 80 From: Ronnie Khan MD Attending Dr: Dr. Ronnie Khan MD Status: DEP A MB Ordering Dr: Ronnie Khan MD Date: 02/25/20 Location: [facility] Sex: M C Admitted: [facility]12 Lead EKG performed by [facility] ECG Report Interpretation S inus Bradycardia - Nonspecific T-abnormality. ABNORMAL Electronically signed on 03/01/2020 at 10:12 by Ronnie Khan Software Version 8610 03/01/20 1035 Date Ronnie Khan MD CC: Dr. Jazlyn Zayas DO Date Dictated: 02/25/20 1349 Date Transcribed: 02/25/201348 Real Estate Services Coordinator: [place] Signed Jazlyn Zayas Start: 02-25-2020 End: 02-25-2020 Cardiology Visit Report Comments: See Note; NOTES: [facility] [address] [place] [address] OFFICE VISIT Date of Service: 02/25/20 MR#: [id number] Acct: [id number] Name: JESUS ALBERTO GUEVARA Jr. Rep #: [id number] : 1940 Provider: Dr. Ronnie Khan MD Age/Sex: 80/M Location: [facility] Status: Signed [facility] History of Present Illness Details: There is [...] mg PO DAILY 02/25/20 [History Confirmed 02/25/20] [facility] Medical History Atherosclerotic heart disease of [place] coronary artery without angina pectoris (Chronic) Hyperlipidemia [...] G45.9, I25.10, N18.3 Follow Up 1 Year (compliance attorney) Coding Level of Care Code Off vis,new,level [...] (if applicable) CC: Dr. Woo Fuller MD; DO Jazlyn Mason Start: 01-12-2020 End: 01-12-2020 Urgent Care Visit Report Comments: See Note; NOTES: [place] [address] OFFICE VISIT Date of Service: 01/12/20 MR#: [id number] Acct: [id number] Name: JESUS ALBERTO GUEVARA Jr. Rep #: [id number] : 1940 Provider: ADO Rodriguez Age/Sex: 79/M Location: [facility] Status: Signed Intake Vital Signs 01/12/20 BMI 30.1 01/12/20 Height 5 ft 11 in 01/12/20 Weight: 215 lb 01/12/20 BMI 29.9 01/12/20 BP 124/86 H 01/12/20 Respiration 16 01/12/20 Pulse 78 01/12/20 Temp 97.6 F L 01/12/20 Temp Source Temporal 01/12/20 Pulse Oximetry (%) 99 01/12/20 Oxygen Delivery Method room air Intake Visit Reasons: ORDER FOR COVID Chief Complaint: COVID-19 Assistant Engineer Required: No Accompanied by: SELF Is patient in pain?: No Allergies No Known Allergies Allergy (Verified 01/12/20 13:34) Medications Cholecalciferol (Vitamin D3) [Vitamin D3] 2,000 unit PO DAILY 10/10/18 [History Confirmed 01/12/20] omega-3 fatty acids 1,000 mg capsule 1,000 mg PO DAILY 01/12/20 [History Confirmed 01/12/20] [facility] Medical History Perforation of sigmoid colon due [...] of the days that he felt rather "rundown". He denies fever, chills, sweats. No cough, shortness of breath or difficulty breathing. No nausea, vomiting, diarrhea. No known ill contacts. No other associated symptoms or alleviating/aggravating factors. ROS Const Constitutional: Positive for other (6 system ROS completed with pertinent findings in the HPI otherwise normal.) Exam Const General: cooperative, healthy appearing HENMT Head: normocephalic, atraumatic Ears: hearing grossly normal [...] Report - Endoscopy Comments: See Note; NOTES: [facility] Medical Records Department [address] [place] [address] Operative Report - Endoscopy MR#: [id number] Acct: [id number] Name: PAOLAJESUS ALBERTO Mondragon Jr. Rep #: [id number] : 1940 79 From: Aria Leslie MD PCP: Jazlyn Zayas DO Status: [facility] 04/30/2019 Jazlyn Zayas [address] [facility], [place] [address] [place] [address] Re : Colonoscopy procedure for Jesus Alberto [...] MD Date Dictated: 04/29/19 0839 Date Transcribed: Real Estate Services Coordinator: TR Signed Jazlyn Zayas Start: 04-30-2019 End: 04-30-2019 Operative Report - Endoscopy Comments: See Note; NOTES: [facility] Medical Records Department [address] [place] [address] Operative Report - Endoscopy MR#: [id number] Acct: [id number] Name: JESUS ALBERTO GUEVARA Jr. Rep #: [id number] : 1940 79 From: Aria Leslie MD PCP: Jazlyn Zayas DO Status: [facility] 04/29/2019 Jazlyn Zayas [address] [facility], [place] [address] [place] [address] Re : Colonoscopy procedure for Jesus Alberto [...] AM This report has been signed electronically. 04/29/19 1009 Date Aria Merrillignruddy Signature: Date (if indicated) CC: Jazlyn Zayas DO; Aria Leslie MD Date Dictated: 04/29/19838 Date Transcribed: Real Estate Services Coordinator: MARKO Signed Jazlyn Zayas Start: 04-29-2019 End: 04-29-2019 History and Physical Exam Comments: See Note; NOTES: [facility] Medical Records Department [address] [place] [address] History and Physical 04/29/19828 MR#: [id number] Acct: [id number] Name: JESUS ALBERTO GUEVARA Jr. Rep #: [id number] : 1940 79 From: Aria Leslie MD PCP: Jazlyn Zayas DO Status: REG SD Y Location: [place] [address] History of Present Illness Date of Admission: 04/29/19 The patient is a 79 year old M presents for screening colonoscopy. Patient did have a recent history of perforated diverticulitis which has healed and the abscess did resolve. Patient also had tapeworm as he does go fishing in [place]. He was also treated and seen [...] Test: Yes - over 5 yrs ago/efho 2019 HX Edema: No Hx Pain in Legs [...] - Discharge Is Pt Admitted From a Alf, or a Detention: No Who Could Help: [...] Surgery Visit Report Comments: See Note; NOTES: [facility] [address] [place] [address] OFFICE VISIT Date of Service: 01/15/19 MR#: [id number] Acct: [id number] Name: JESUS ALBERTO GUEVARA Rep #: [id number] : 1940 Provider: Aria Leslie MD Age/Sex: 78/M Location: [facility] Status: Signed Intake Vital Signs01/15/19 Body Mass Index (BMI) 30.4 Intake Visit Reasons: 1 mo FU Perforated Diverticulits Chief Complaint: f/u diverticulitis--discuss colonoscopy Assistant Engineer Required: No Is patient in pain?: No [...] mg PO DAILY 01/15/19 [History Confirmed 01/15/19] [facility] Medical History Perforation of sigmoid colon due [...] Dulcolax split prep. Aria Leslie M.D. Pager: [phone] [facility] [address] [place] [address], [address] [place] [address] Office: [phone] Plan Detail Follow Up Will schedule colonoscopy [...] Surgery Visit Report Comments: See Note; NOTES: [facility] [address] [place] [address] [address] [place], [place] [address] OFFICE VISIT Date of Service: 12/11/18 MR#: [id number] Acct: [id number] Name: JESUS ALBERTO GUEVARA Rep #: [id number] : 1940 Provider: Aria Leslie MD Age/Sex: 78/M Location: [facility] Status: Signed Intake Intake Visit Reasons: F/U Perforated Diverticulitis Chief Complaint: ABDOMINAL PAIN Assistant Engineer Required: No Is patient in pain?: No [...] on vacation second week of December to [place]. Patient did go back on his Plavix [...] off the Plavix. Aria Leslie M.D. Pager: [phone] [facility] [address] [place] [address], [address] [place] [address] Office: [phone] Plan Detail Follow Up 4 Weeks Coding Level of Care Code Off vis,est,level 3 Diagnoses Perforation of sigmoid colon due to diverticulitis K57.20 TIA (transient ischemic attack) G45.9 12/11/18 1012 <Electronically signed by Aria Leslie MD> Date Aria Leslie MD Cosigner Signature: Date (if applicable) CC: Jazlyn Joes Start: 11-25-2018 End: 11-25-2018 Surgery Visit Report Comments: See Note; NOTES: [facility] [address] [place] [address] OFFICE VISIT Date of Service: 11/25/18 MR#: [id number] Acct: [id number] Name: JESUS ALBERTO GUEVARA Rep #: [id number] : 1940 Provider: Aria Leslie MD Age/Sex: 78/M Location: [facility] Status: Signed Intake Intake Visit Reasons: F/U Perforated Diverticulitis Chief Complaint: ABDOMINAL PAIN Assistant Engineer Required: No Is patient in pain?: No [...] medication except for the aspirin he felt "better" states he had increased energy. Patient states he has not talked to Dr. Zayas about this. Patient denies any epigastric pain and states he only had reflux in the esophagus once after eating [place]o since he has been off the PPI. [...] discuss this further. Aria Leslie M.D. Pager: [phone] [facility] [address] [place] [address], [facility], [address] [place] [address] Office: [phone] Plan Detail Follow Up 3-4 weeks Coding Level of Care Code Off vis,est,level 3 Diagnoses Perforation of sigmoid colon due to diverticulitis K57.20 TIA (transient ischemic attack) G45.9 11/25/18 1328 <Electronically signed by Aria Leslie MD> Date Aria Leslie MD Cosigner Signature: Date (if applicable) CC: Jazlyn Jose Start: 10-30-2018 End: 10-30-2018 Surgery Visit Report Comments: See Note; NOTES: [facility] [address] [place] [address] OFFICE VISIT Date of Service: 10/28/18 MR#: [id number] Acct: [id number] Name: JESUS ALBERTO GUEVARA Rep #: [id number] : 1940 Provider: Aria Leslie MD Age/Sex: 78/M Location: [facility] Status: Signed Intake Vital Signs10/28/18 Body Mass Index (BMI) 30.4 10/28/18 Blood Pressure Location Rt brachial 10/28/18 Blood Pressure Position Sitting 10/28/18 Respiratory Rate 20 H Intake Visit Reasons: [facility] F/U Perforated Diverticulitis Chief Complaint: ABDOMINAL PAIN Assistant Engineer Required: No Is patient in pain?: No [...] Plavix is completed. Aria Leslie M.D. Pager: [phone] [facility] [address] [place] [address], [facility], [address] [place] [address] Office: [phone] Plan Detail Follow Up 4 Weeks Coding Level of Care Code Off vis,est,level 3 Diagnoses Perforation of sigmoid colon due to diverticulitis K57.20 TIA (transient ischemic attack) G45.9 10/30/18 0828 <Electronically signed by Aria Leslie MD> Date Aria Leslie MD Cosigner Signature: Date (if applicable) CC: Jazlyn Jose Start: 10-28-2018 End: 10-28-2018 12 lead ECG Comments: See Note; NOTES: [facility] Services [address] [place] [address] 12 Lead EKG 10/26/18 0725 MR#: [id number] Acct: [id number] Name: JESUS ALBERTO GUEVARA Rep #: [id number] : 1940 78 From: Ronnie Khan MD [...] ECG Confirmed by RONNIE KHAN MD ([id number]), editorial cartoonist TAWNYA ZAVALA ([id number]) on 10/28/2018 1:21:21 PM Referred By: Sarah Hsu Confirmed By:RONNIE KHAN MD 10/28/18 1321 Date Ronnie Khan MD CC: Jazlyn Zayas DO; Lane Pope MD Signed Jazlyn Zayas Start: 10-26-2018 End: 10-26-2018 Emergency Department Summary Comments: See Note; NOTES: [facility] Medical Records Department [address] [facility] [place] [address] Emergency Department Summary 10/26/18 0755 MR#: [id number] Acct: [id number] Name: JESUS ALBERTO GUEVARA Rep #: [id number] : 1940 78 From: Lane Pope MD [...] Ye Bauer DO at 9:47 EDT Tel [phone], Service support , 10/26/18 07:30 Abdomen/Pelvis WITH [...] Patient states he has an appointment with Dr. jhonny weir on Saturday. He was treated with IV [...] your Primary Care Provider. Call [facility] ([phone]) or report to the closest Emergency Room. Call 911 if necessary. 10/26/18 1012 <Electronically signed by Lane Pope MD> Date Lane Pope MD Cosigner Signature (If Indicated): Date CC: Jazlyn Zayas DO; Aria Zayas Start: 10-26-2018 End: 10-26-2018 Abdomen/Pelvis WITH Contrast Comments: See Note; NOTES: [facility] Imaging Services [address] [place] [address] Abdomen/Pelvis WITH Contrast MR#: [id number] Acct: [id number] Name: PAOLAJESUS ALBERTO Mondragon Rep #: [id number] : 1940 M 78 From: Ye Bauer DO PCP: Jazlyn Zayas DO Status: REG ER Study: Abdomen/Pelvis WITH Contrast Date of Exam: 10/26/18 Exam# [id number] Ordering Dr: Lane Pope MD STUDY: CT [...] Ye Bauer DO at 9:47 EDT Tel [phone], Service support , CC: Jazlyn Zayas DO; Lane Pope MD Real Estate Services Coordinator: Signed Jazlyn Zayas Start: 10-23-2018 End: 10-23-2018 Emergency Department Summary Comments: See Note; NOTES: [facility] Medical Records Department [address] [place] [address] Emergency Department Summary 10/23/18 0753 MR#: [id number] Acct: [id number] Name: JESUS ALBERTO GUEVARA Rep #: [id number] : 1940 78 From: Lane Pope MD PCP: Jazlyn Zayas DO Status: REG ER History of Present Illness Chief Complaint: Weakness Informant: Patient, Family Onset: Today Context: Sudden Onset Timing: Continuous Quality and Location: Left Leg Weakness, - - concerned regarding his speech and confusion Onset: 649 Current Severity: Mild Maximum Severity: Mild Worsened [...] , Head CTA 10/23/18 07:50 IMPRESSION: Normal [place] without a demonstrated aneurysm or hemodynamically significant stenosis. Electronically Signed: Erwin Miller, at 9:00 EDT , Service support , ADDENDUM: 10/23/18 0910 IMPRESSION: Normal [place] without a demonstrated aneurysm or hemodynamically significant stenosis. N.B. : The above information has been verbally conveyed by Erwin Miller to [facility] on 10/23/2018 09:03:43 (ET). Electronically Signed: [...] been verbally conveyed by Erwin Miller to [facility] on 10/23/2018 09:03:09 (ET). Electronically Signed: [...] information has been verbally conveyed by Erwin Paul to Lane Pope on 10/23/2018 09:03:09 (ET). Electronically Signed: Erwin Sullivanroxanna, at 9:04 EDT , Service support , [...] Interpretation: Sinus Rhythm - Ventricular rate 66. 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 Call [facility] ([phone]) or report to the closest Emergency Room. Call 911 if necessary. 10/23/18927 <Electronically signed by Lane Pope MD> Date Lane Pope MD Cosigner Signature (If Indicated): Date CC: Jazlyn Jose Start: 10-23-2018 End: 10-23-2018 CTA Head W/WO Contrast Comments: See Note; NOTES: [facility] Imaging Services [address] [place] [address] CTA Head W/WO Contrast MR#: [id number] Acct: [id number] Name: JESUS ALBERTO GUEVARA Rep #: [id number] : 1940 M 78 From: Erwin Miller MD PCP: Jazlyn Zayas DO Status: REG ER Study: CTA Head W/WO Contrast Date of Exam: 10/23/18 Exam# [id number] Ordering Dr: Lane Pope MD ADDENDUM by [...] 09:03:43 (ET). 10/23/18 0941 Date cc: Jazlyn Pope MD * Signed ADDENDUM by Erwin [...] There is no demonstrated aneurysm of the [place]. Partial opacification of the left maxillary sinus. 10/23/18 0900 Date cc: Jazlyn Zayas DO; Lane Pope MD * Signed ADDENDUM by Erwin Miller MD on 10/23/[address]/CTA Head W/WO Contrast 10/23/18 0948 Date cc: Jazlyn Zayas DO; Lane Pope MD * Signed ADDENDUM by Erwin Miller MD on 10/23/[address]/CTA Head W/WO Contrast IMPRESSION: Normal [place] without a demonstrated aneurysm or hemodynamically significant stenosis. N.B. : The above information has been verbally conveyed by Erwin Mliler to Lane Pope on 10/23/2018 09:03:43 (ET). [...] There is no demonstrated aneurysm of the [place]. Partial opacification of the left maxillary sinus. CT/CTA Head W/WO Contrast IMPRESSION: Normal [place] without a demonstrated aneurysm or hemodynamically significant stenosis. Electronically Signed: Erwin Miller, at 9:00 EDT , Service support , CC: Jazlyn Zayas DO; Lane Pope MD Real Estate Services Coordinator: Signed Jazlyn Jose Manuel Start: 10-23-2018 End: 10-23-2018 CTA Neck W/WO Contrast Comments: See Note; NOTES: [facility] Imaging Services [address] [place] [address] CTA Neck W/WO Contrast MR#: [id number] Acct: [id number] Name: JESUS ALBERTO GUEVARA Rep #: [id number] : 1940 M 78 From: Erwin Miller MD PCP: Jazlyn Zayas DO Status: REG ER Study: CTA Neck W/WO Contrast Date of Exam: 10/23/18 Exam# [id number] Ordering Dr: Lane Pope MD ADDENDUM by [...] Service support , 10/23/18 0911 Date cc: Jazlyn Zayas DO; Lane Pope [...] CC: Jazlyn Zayas DO; Lane Pope MD Real Estate Services Coordinator: Signed Jazlyn Zayas Start: 10-23-2018 End: 10-23-2018 Brain/Head without Contrast Comments: See Note; NOTES: [facility] Imaging Services [address] [place] [address] Brain/Head without Contrast MR#: [id number] Acct: [id number] Name: JESUS ALBERTO GUEVARA Rep #: [id number] : 1940 M 78 From: Anders Weems MD PCP: Jazlyn Zayas DO Status: REG Study: Brain/Head without Contrast Date of Exam: 10/23/18 Exam# [id number] Ordering Dr: Lane Pope MD ADDENDUM by [...] Mucous retention cysts in the maxillary sinuses. 10/23/18 0852 Date cc: Jazlyn Zayas DO; Lane Pope [...] CC: Jazlyn Zayas DO; Lane Pope MD Real Estate Services Coordinator: Signed Jazlyn Zayas Start: 10-10-2018 End: 10-11-2018 Emergency Department Summary Comments: See Note; NOTES: [facility] Medical Records Department [address] [place] [address] Emergency Department Summary 10/10/18 2312 MR#: [id number] Acct: [id number] Name: JESUS ALBERTO GUEVARA Rep #: [id number] : 1940 78 From: Lane Pope MD [...] of the abdomen and pelvis performed at [facility] and final interpretation is acute mid [...] for ED Patient: Disposition: Acute Care Hospital [facility] Diagnosis: Perforation of sigmoid colon due to diverticulitis Referrals: Jazlyn Zayas, [Primary Care Provider] - What to do if you have Problems For any increased pain, shortness of breath, bleeding, nausea or vomiting, chest pain, or any unexpected problems, contact your Primary Care Provider. Call [facility] ([phone]) or report to the closest Emergency Room. Call 911 if necessary. 10/10/18 2324 <Electronically signed by Lane Pope MD> Date Lane Pope MD Cosigner Signature (If Indicated): Date CC: Jazlyn Jose Start: 10-10-2018 End: 10-10-2018 Abdomen/Pelvis WITH Contrast Comments: See Note; NOTES: [facility] Imaging Services [address] [place] [address] Abdomen/Pelvis WITH Contrast MR#: [id number] Acct: [id number] Name: JESUS ALBERTO GUEVARA Rep #: [id number] : 1940 M 78 From: Manuel Penny MD PCP: Jazlyn Zayas DO Status: REG CLI Study: Abdomen/Pelvis WITH Contrast Date of Exam: 10/10/18 Exam# [id number] Ordering Dr: Jazlyn Zayas DO STUDY: CT [...] Service support , CC: Jazlyn Zayas DO Real Estate Services Coordinator: Signed Jazlyn Zayas Work Phone: Start: 10-09-2018 End: 10-09-2018 Abd Inc Decub and/or Erect Comments: See Note; NOTES: [facility] Imaging Services [address] [place] [address] [employer] Inc Decub and/or Erect MR#: [id number] Acct: [id number] Name: JESUS ALBERTO GUEVARA Rep #: [id number] : 1940 M 78 From: Lev Martin MD PCP: Jazlyn Zayas DO Status: REG CLI Study: Abd Inc Decub and/or Erect Date of Exam: 10/09/18 Exam# [id number] Ordering Dr: Jazlyn Zayas DO STUDY: X-RAY [...] Service support , CC: Jazlyn Zayas DO Real Estate Services Coordinator: Signed Jazlyn Zayas Work Phone: Start: 04-02-2018 End: 04-02-2018 Thyroid Comments: See Note; NOTES: [facility] Imaging Services [address] [place] [address] Thyroid MR#: [id number] Acct: [id number] Name: JESUS ALBERTO GUEVARA Rep #: [id number] : 1940 M 78 From: Clinton Collier MD PCP: Jazlyn Zayas DO Status: REG CLI Study: Thyroid Date of Exam: 04/02/18 Exam# [id number] Ordering Dr: Nick Bear MD STUDY: THYROID [...] 6 months is recommended. Electronically Signed: Clinton Collier, at 16:50 EDT Tel , Service support , CC: Nick Bear MD; Jazlyn Zayas DO Real Estate Services Coordinator: Signed Jazlyn Zayas Start: 03-06-2018 End: 03-07-2018 Soft Tissue Neck WITH Contrast Comments: See Note; NOTES: [facility] Imaging Services [address] [place] [address] Soft Tissue Neck WITH Contrast MR#: [id number] Acct: [id number] Name: JESUS ALBERTO GUEVARA Rep #: [id number] : 1940 M 78 From: Otilio Leach PCP: Jazlyn Zayas DO Status: REG CLI Study: Soft Tissue Neck WITH Contrast Date of Exam: 03/06/18 Exam# [id number] Ordering Dr: Nick Bear MD STUDY: CT [...] FINDINGS: Normal bilateral parotid glands. Normal bilateral chemical lab supervisor spaces. Normal bilateral parapharyngeal spaces. Normal bilateral [...] CC: Nick Bear MD; Jazlyn Zayas DO Real Estate Services Coordinator: Signed Jazlyn Zayas Start: 12-24-2017 End: 12-24-2017 Pelvis 1 or 2 Views Comments: See Note; NOTES: [facility] Imaging Services [address] [place] [address] Pelvis 1 or 2 Views MR#: [id number] Acct: [id number] Name: JESUS ALBERTO GUEVARA Rep #: [id number] : 1940 M 77 From: Erwin Miller MD PCP: Jazlyn Zayas DO Status: REG CLI Study: Pelvis 1 or 2 Views Date of Exam: 12/24/17 Exam# [id number] Ordering Dr: Rosalba Lester MD STUDY: X-RAY [...] Erwin Miller MD at 15:41 EDT Tel [phone], Service support , CC: Jazlyn Zayas DO; Rosalba Lester MD Real Estate Services Coordinator: Signed Jazlyn Zayas Start: 12-20-2017 End: 12-20-2017 Cerv Spine 4 or 5 Views Comments: See Note; NOTES: [facility] Imaging Services [address] [place] [address] Cerv Spine 4 or 5 Views MR#: [id number] Acct: [id number] Name: JESUS ALBERTO GUEVARA Rep #: [id number] : 1940 M 77 From: Erwin Miller MD PCP: Jazlyn Zayas DO Status: REG CLI Study: Cerv Spine 4 or 5 Views Date of Exam: 12/20/17 Exam# [id number] Ordering Dr: Rosalba Lester MD STUDY: X-RAY [...] Erwin Miller MD at 12:46 EDT Tel [phone], Service support , CC: Jazlyn Zayas DO; Rosalba Lester MD Real Estate Services Coordinator: Signed Jazlyn Zayas Start: 02-06-2013 History of [...] CABG (coronary artery bypass graft) Phillip Jo [employer] Work Phone: Plan of Treatment Date Care Activity Detail Author Start: 12-19-2023 Thyroid stimulating hormone measurement TSH Level [facility] Start: 12-07-2023 Patient discharge [facility] Start: 12-07-2023 Referral to service [facility] Start: 12-04-2023 Blood chemistry [facility] Start: 12-04-2023 Application of intermittent pneumatic compression device [facility] Start: 12-03-2023 Following clinical pathway protocol [facility] Start: 12-03-2023 Assessment of risk of venous thromboembolism [facility] Start: 12-03-2023 Fall prevention [facility] Start: 12-03-2023 Insertion of catheter into peripheral vein [facility] Start: 12-03-2023 Measuring intake and output [facility] Start: 12-03-2023 Providing care according to standard [facility] Start: 12-03-2023 Provision of activity privileges [facility] Start: 12-03-2023 Referral to occupational therapist [facility] Start: 12-03-2023 Referral to service [facility] Start: 12-03-2023 [facility] Start: 12-03-2023 Verification routine [facility] Start: 12-03-2023 Admission procedure [facility] Start: 03-29-2023 Influenza vaccination Influenza Vaccine (Season Ended) [facility] Start: 03-22-2023 Procedure Education Eprescribed prescriptions (G8553) [facility] Work Phone: Start: 01-23-2023 End: 01-23-2023 Patient encounter procedure 01/23/2023 11:00 AM EDT Office Visit [facility] [address] [place] [id number] Phillip Jo, [employer] - [employer] [address] [place], [place] [id number] [facility] Start: 01-21-2023 [facility] Start: 01-21-2023 Patient referral to dietitian [facility] Start: 01-04-2023 Patient referral [facility] Work Phone: Start: 01-02-2023 End: 02-01-2023 XR Chest 2 Views XR chest 2 views Imaging Routine S/P CABG (coronary artery bypass graft) Expected: 01/02/2023, Expires: 02/01/2023 [facility] [employer] Work Phone: Comment on above: Expected: 01/02/2023, Expires: Start: 01-02-2023 End: 01-02-2023 Patient encounter procedure 01/02/2023 Office Visit Cardiothoracic Surgery Phillip Jo, [employer] - [employer]ALL[employer]ER [address] [address] [facility] Start: 12-18-2022 Patient discharge [facility] Start: 12-18-2022 Notification of physician [facility] Start: 12-18-2022 Patient education [facility] Start: 12-18-2022 Provision of activity privileges [facility] Start: 12-18-2022 Pulse taking [facility] Start: 12-18-2022 Taking patient vital signs [facility] Start: 12-18-2022 Wound care [facility] Start: 12-18-2022 [facility] Start: 12-17-2022 Referral to operation manager [facility] Start: 12-17-2022 Catheterization of vein [facility] Start: 12-17-2022 Medication not administered [facility] Start: 12-17-2022 Notification of physician [facility] Start: 12-17-2022 Cardiac catheterization [facility] Start: 12-17-2022 End: 12-17-2022 [facility] Start: 12-17-2022 Following clinical pathway protocol [facility] Start: 12-17-2022 Assessment of risk of venous thromboembolism [facility] Start: 12-17-2022 Fall prevention [facility] Start: 12-17-2022 Inhalation therapy procedure [facility] Start: 12-17-2022 Insertion of catheter into peripheral vein [facility] Start: 12-17-2022 Introduction of urinary catheter [facility] Start: 12-17-2022 Measuring intake and output [facility] Start: 12-17-2022 Oxygen therapy [facility] Start: 12-17-2022 Providing care according to standard [facility] Start: 12-17-2022 Provision of activity privileges [facility] Start: 12-17-2022 Referral to service [facility] Start: 12-17-2022 [facility] Start: 12-17-2022 Admission procedure [facility] Start: 05-03-2022 Procedure Education Eprescribed prescriptions (G8553) [facility]; [facility] Work Phone: Start: 05-03-2022 Provider Instructions for Treatment [facility]; [facility] Work Phone: Start: 05-03-2022 Potassium serum plasma/whole blood POTASSIUM SERUM (63089) [facility]; [facility] Work Phone: Comment on above: to do in late oct or early may Start: 05-03-2022 Cortisol total CORTISOL, A.M. (42128) [facility]; [facility] Work Phone: Start: 05-03-2022 Assay of renin RENIN (27846) [facility]; [facility] Work Phone: Start: 05-03-2022 Assay of aldosterone ALDOSTERONE (96368) [facility] Work Phone: Start: 04-29-2022 Potassium serum plasma/whole blood POTASSIUM SERUM (84873) [facility]; [facility] Work Phone: Start: 02-05-2022 COVID-19 Vaccine (3 - Booster for Moderna series) COVID-19 Vaccine (3 - Booster for Moderna series) [facility] Start: 2022 Procedure Education Eprescribed prescriptions (G8553) [facility]; [facility] Work Phone: Start: 2022 Provider Instructions for Treatment [facility]; [facility] Work Phone: Start: 01-29-2022 [facility] Work Phone: Start: 10-26-2021 Procedure Education Eprescribed prescriptions (G8553) [facility]; [facility] Work Phone: Start: 10-26-2021 Provider Instructions for Treatment [facility]; [facility] Work Phone: Start: 10-26-2021 25 hydroxy includes fractions if performed CALCIFIDIOL (52463) VIT D 25 [facility]; [facility] Work Phone: Start: 10-26-2021 Assay of thyroid stimulating hormone tsh TSH (39005) [facility]; [facility] Work Phone: Start: 10-26-2021 Urnls dip stick/tablet reagent auto microscopy URINALYSIS, W/ MICRO (70388) [facility]; [facility] Work Phone: Start: 10-26-2021 Urine albumin quantitative MICROALBUMIN: CREATININE RATIO (44174) AND (83591) [facility]; [facility] Work Phone: Start: 10-26-2021 Comprehensive metabolic panel METABOLIC PANEL, COMPREHENSIVE (52162) [facility]; [facility] Work Phone: Start: 10-26-2021 Lipid panel LIPID PANEL (25835) [facility]; [facility] Work Phone: Start: 10-26-2021 Blood count complete auto&auto difrntl wbc CBC W/AUTO DIFF WBC (98430) [facility]; [facility] Work [...] wbc count BLOOD COUNT, AUTOMATED DIFF WBC (75744) [facility]; [facility] Work Phone: Start: 03-24-2021 Urnls dip stick/tablet reagent auto microscopy URINALYSIS, W/ MICRO (08416) [facility]; [facility] Work Phone: Start: 10-20-2020 Procedure Education Eprescribed prescriptions (G8553) [facility]; [facility] Work Phone: Start: 10-20-2020 Provider Instructions for Treatment [facility]; [facility] Work Phone: Start: 10-20-2020 Lipoprotein blood kena numbers & subclasses NMR Profile (56000) [facility]; [facility] Work [...] Start: 01-19-2019 Patient Education Tick Bite [facility] Work Phone: Start: 01-19-2019 Procedure [...] Pneumococcal Vaccine: 65+ Years (2 - PCV) [facility] Start: 12-06-2016 Procedure Education Eprescribed prescriptions (G8553) [facility] Work Phone: Start: 02-10-2016 Provider Instructions for Treatment [facility] Work Phone: Start: 02-10-2016 Blood occult fecal hgb deter ia qual feces 1-3 FECAL OCCULT- Tubes sent home (49546) [facility] Work Phone: Start: 01-27-2016 Provider Instructions for Treatment [facility] Work Phone: Start: 06-03-2015 Patient Education Fibromyalgia *: musculoskeletal [facility] Work Phone: Start: 06-03-2015 Procedure Education Eprescribed prescriptions (G8553) [facility] Work Phone: Start: 06-03-2015 Provider Instructions for Treatment [facility] Work Phone: Start: 06-03-2015 Assay of thyroid stimulating hormone tsh TSH (43353) [facility] Work Phone: Start: 06-03-2015 Thyrotropin Qn TSH (73236) [facility] Work Phone: Start: 06-03-2015 Urine albumin quantitative MICROALBUMIN: CREATININE RATIO (21512) AND (27514) [facility] Work Phone: Start: 06-03-2015 Blood count complete auto&auto difrntl wbc CBC W/AUTO DIFF WBC (80533) [facility] Work Phone: Start: 06-03-2015 Comprehensive metabolic panel METABOLIC PANEL, COMPREHENSIVE (23113) [facility] Work Phone: Start: 06-03-2015 Lipid panel LIPID PANEL (78957) [facility] Work Phone: Start: 06-03-2015 25 hydroxy includes fractions if performed CALCIFIDIOL (03673) VIT D 25 [facility] Work Phone: Start: 12-01-2014 Provider Instructions for Treatment *URI Treatment [facility] Work Phone: Start: 07-08-2014 Provider Instructions for Treatment [facility] Work Phone: Start: 05-29-2014 25 hydroxy includes fractions if performed CALCIFIDIOL (45641) VIT D 25 [facility] Work Phone: Start: 03-01-2014 Provider Instructions for Treatment Shingles Vaccine Education 2005 [facility] Work Phone: Start: 01-11-2014 Assay of phosphorus inorganic PHOSPHORUS (08617) [facility] Work Phone: Start: 01-11-2014 Phosphate mass conc PHOSPHORUS (92542) [facility] Work Phone: Start: 12-09-2013 Provider Instructions for Treatment [facility] Work Phone: Start: 12-01-2013 Provider Instructions for Treatment Cryotherapy-- 3 lesions on forehead [facility] Work Phone: Start: 12-01-2013 Blood count manual cell count each CBC WITH MANUAL DIFF (92850) [facility] Work Phone: Start: 11-23-2013 Urnls dip stick/tablet rgnt auto w/o microscopy URINALYSIS W/O MICRO (02110) [facility] Work Phone: Start: 11-16-2013 Sedimentation rate rbc non-automated Sed Rate Erythrocyte (69585) [facility] Work Phone: Start: 11-16-2013 Creatinine clearance CREATININE CLEARANCE (50052) [facility] Work Phone: Start: 11-16-2013 Protein mass conc (U) Urine Protein Electrophoresis (UPEP) (17458) [facility] Work Phone: Start: 11-16-2013 Protein electrophoretic fractj&quantj serum [facility] Work Phone: Start: 11-16-2013 Protein mass conc Serum Protein Electrophoresis (SPEP) (22748) [facility] Work Phone: Start: 11-16-2013 Antinuclear antibodies maynor MAYNOR (ANTINUCLEAR ANTIBODY) (58240) [facility] Work Phone: Start: 11-16-2013 Nuclear Ab IF titer (S) MAYNOR (ANTINUCLEAR ANTIBODY) (91776) [facility] Work Phone: Start: 11-16-2013 Assay of magnesium MAGNESIUM (01903) [facility] Work Phone: Start: 11-16-2013 Magnesium mass conc MAGNESIUM (84083) [facility] Work Phone: Start: 11-16-2013 Assay of phosphorus inorganic PHOSPHORUS (34637) [facility] Work Phone: Start: 11-16-2013 Phosphate mass conc PHOSPHORUS (15918) [facility] Work Phone: Start: 11-16-2013 25 hydroxy includes fractions if performed CALCIFEDIOL (41587) [facility] Work Phone: Start: 11-16-2013 Assay of parathormone PARATHORMONE (40275) [facility] Work Phone: Start: 11-16-2013 Assay of urine sodium SODIUM SPOT URINE (04994) [facility] Work Phone: Start: 11-16-2013 Sodium molar conc (U) SODIUM SPOT URINE (08344) [facility] Work Phone: Start: 11-16-2013 Blood count manual cell count each CBC WITH MANUAL DIFF (86514) [facility] Work Phone: Start: 11-16-2013 Comprehensive metabolic panel METABOLIC PANEL, COMPREHENSIVE (40428) [facility] Work Phone: Start: 11-03-2013 Provider Instructions for Treatment [facility] Work Phone: Start: 10-21-2013 Provider Instructions for Treatment *Antibiotic Usage Education - Male [facility] Work Phone: Start: 08-17-2011 Sedimentation rate rbc non-automated Sed Rate Erythrocyte (12894) [facility] Work Phone: Start: 08-17-2011 Blood count complete auto&auto difrntl wbc CBC, Platelets & Auto Diff (72905) [facility] Work Phone: Start: 08-17-2011 Assay of troponin quantitative Troponin I (01496) [facility] Work Phone: Start: 08-17-2011 Troponin I.cardiac mass conc Troponin I (36855) [facility] Work Phone: Start: 08-17-2011 Creatine kinase mb fraction only CPK MB FRACTION (43349) [facility] Work Phone: Start: 08-17-2011 Creatine kinase total CREATINE KINASE TOTAL (07357) [facility] Work Phone: Start: 08-17-2011 Comprehensive metabolic panel Metabolic Panel, Comprehensive (92929) [facility] Work Phone: Start: 04-03-2011 Basic metabolic panel calcium total METABOLIC PANEL, BASIC (53682) [facility] Work Phone: Start: 09-24-2007 [...] time (Bld) PTT (ACTIVATED PARTIAL THROMBOPLASTIN TIME) (69770) [facility] Work Phone: Start: 08-12-2006 Prothrombin time PT (PROTHROMBIN TIME) (32913) [facility] Work Phone: Start: 08-12-2006 Prothrombin time (PT) Coag time (PPP) PT (PROTHROMBIN TIME) (86303) [facility] Work Phone: Start: 08-12-2006 Thromboplastin time partial plasma/whole blood PTT (ACTIVATED PARTIAL THROMBOPLASTIN TIME) (11490) [facility] Work Phone: Start: 08-12-2006 Basic metabolic panel calcium total METABOLIC PANEL, BASIC (22612) [facility] Work Phone: Start: 08-12-2006 Blood count manual cell count each CBC WITH MANUAL DIFF (71056) [facility] Work Phone: Start: 1991 Zoster Vaccines (1 of 2) Zoster Vaccines (1 of 2) [facility] Start: 02-01-1960 DTaP/Tdap/Td Vaccines (1 - Tdap) DTaP/Tdap/Td Vaccines (1 - Tdap) [facility] Start: 1953 Depression Screening Depression Screening [facility] Start: 02-01-1948 DTaP/Tdap/Td Vaccines (1 - Tdap) DTaP/Tdap/Td Vaccines (1 - Tdap) [facility] Start: 1947 Pneumococcal Vaccine: 65+ Years (1 - PCV) Pneumococcal Vaccine: 65+ Years (1 - PCV) [facility] Start: 1941 Hepatitis B Vaccines (1 of 3 - 3-dose series) Hepatitis B Vaccines (1 of 3 - 3-dose series) [facility] Start: 1941 Lipid panel Lipid Panel [facility] Anion gap measurement [facility] BUN/Creatinine ratio [facility] Calcium [Mass/volume ] in Serum or Plasma [facility] Carbon dioxide, tota l [Moles/volume] in Serum or Plasma [facility] CBC W Auto Different ial panel - Blood [facility] Chloride [Moles/volu me] in Serum or Plasma [facility] Comprehensive metabo lic 2000 panel - Serum or Plasma [facility] Creatinine [Moles/volume] in Serum or Plasma [facility] Erythrocyte mean corpuscular volume determination [facility] Glucose [Mass/volume ] in Serum or Plasma [facility] Hematocrit [Volume Fraction] of Blood [facility] Hemoglobin [Mass/volume] in Blood [facility] Leukocytes [#/volume ] in Blood [facility] Lipid 1995 panel - Serum or Plasma [facility] Lipid 1995 panel - Serum or Plasma [facility] Mean corpuscular hemoglobin concentration determination [facility] Mean corpuscular hemoglobin determination [facility] Measurement of renal function [facility] Neutrophil count [facility] Neutrophil percent differential count [facility] Patient referral [facility] Work Phone: Platelets [#/volume] in Blood [facility] Potassium [Moles/volume] in Serum or Plasma [facility] Radionuclide imaging of perfusion of myocardium under exercise stress [facility] Red blood cell count [facility] Red cell distributio n width determination [facility] Sodium [Moles/volume ] in Serum or Plasma [facility] Thyroid stimulating hormone measurement [facility] Urea nitrogen [Mass/volume] in Serum or Plasma [facility] End: 12-20-2022 US Heart Transesophageal Transesophageal echocardiogram (CLYDE) with contrast and 3D PRN CV Echocardiography Routine CAD in [place] artery Once for 1 Occurrences starting 12/20/2022 until 12/20/2022 [facility] Work Phone: Comment on above: Once for 1 Occurrences starting 12/21/19 until 12/20/2022 US Heart Transesophageal Transesophageal echocardiogram (CLYDE) with contrast and 3D PRN CV Echocardiography Routine CAD in [place] artery 12/20/2022 1:55 PM [facility], 1,25-dihydroxy measurement [facility] Work Phone: Comprehensive [...] Immunizations Immunization Date Immunization Notes Care Provider [facility] 08-21-2016 pneumococcal polysaccharide vaccine, [address] Jazlyn Zayas Work Phone: [facility] 05-16-2009 influenza virus vacc ine, unspecified formulation Consuelo Bonner DO Work Phone: [facility] Payers Date Payer Category Payer Self-pay [id number] 2021 [facility] ADV[facility]AGE [id number] 2021-Present [address] [place] [address] Medicare HMO [id number] 2018 Medicare [id number] 2011 Unknown [id number] 2006 Medicare [id number] 2002 Unknown [id number] 1940 Unknown [id number] Medicare [id number] Medicare [id number] Unknown [place]/Medicare Adv plan Unknown [id number] Unknown [id number] Unknown [id number] Unknown [id number] Unknown [id number] Unknown [id number] Unknown [id number] Unknown [id number] Unknown [id number] Unknown [id number] Social History Date Type Detail Facility Start: 12-18-2022 Alcohol Use Former smoker [facility] Work Phone: Comment on above: Occasional alcohol u se updated 03-27-11 Tobacco use: Former smoker. S mokes a pipe. [facility] Work Phone: Tobacco use: Tobacco use: [facility] Work Phone: Start: 08-15-2021 End: 12-03-2023 Tobacco smoking status TXIS Unknown if ever smoked [facility] Start: 10-23-2018 Occasional [facility] Start: 10-26-2018 None [facility] Start: 10-26-2018 Spouse/ Signif icant Other [facility] Start: 04-28-2019 Non-smoker [facility] Start: 1940 Sex Assigned At Male [facility] Start: 12-18-2022 History SDOH Alcohol Frequency 1 [facility] Start: 12-18-2022 History SDOH Alcohol Std Drinks 0 [facility] Start: 12-18-2022 History SDOH IPV Fear 2 S [facility] Start: 1940 Sex Assigned At Not on file S [facility] Start: 12-18-2022 Humiliation, Afraid, Rape, and Kick questionnaire [HARK] [facility] Within the last year , have you been afraid of your partner or ex-partner? No [facility] How often to you hav e a drink containing alcohol? Never [facility] How many standard drinks containing alcohol do you have on a typical day? Patient does not drink [facility] Start: 12-23-2022 End: 01-23-2023 Exposure to SARS-CoV-2 (event) Not sure [facility] Start: 12-03-2023 Tobacco smoking stat us [facility] Ex-smoker (finding) [facility] Start: 10-08-2024 Sex Male (finding) [facility] Goals Date Patient Goal Desired Activity /State Functional Status Date Assessment Result Facility 12-07-2023 Functional status With Assist of 1 [facility] Work Phone: 12-07-2023 Functional status Patient Activi ty Bathroom Privilege [facility] Work Phone: 12-18-2022 Functional status Ambulates;Up a d ricki [facility] Work Phone: 03-24-2021 LP-IR Score LP-IR Score [...] component of a physician's clinical assessment. Test(s) 615344-WTQ-J ; 581834-FAO-O; 511437-Kzyzlkokgqmwn; 933656-Mmilyosetqc, Total; 569309-GLK-O (Total); 122706-Yuxpu LDL-P; 728730-DFT Size; 658206-TX-KJ Scorewas developed and its performance characteristics determinedby [employer]. It has not been cleared or approved by the Foodand Drug Administration.PATIENT WAS FASTINGPERFORMED BY: BN [facility] [place] [id number] [facility] [id number] BY: AMY [facility] Bqmevm3398 [facility] [id number] Mental Status Date Assessment Result Facility 12-06-2023 Cognitive function Voice/Name [facility] Work Phone: 12-18-2022 Cognitive function Voice/Name [facility] Work Phone: 01-29-2022 Cognitive function Level Of Cons ciousness Awake;Alert;Appropriate;Follow s Commands [facility] Work Phone: 08-17-2021 Cognitive function Voice/Name;To uch/Shaking;Light Pain;Deep Pain [facility] Work Phone: Clinical Notes 02-06-2013 to 12-29-2024 Note Date & Type Note Facility 12-29-2024 Progress note [facility] 12-29-2024 Progress note Note Date/Time December 29, 2024 9:08am [facility] [address], [address] [place] [address] OFFICE VISIT Date of Service: 12/29/24 MR#: [id number] Acct: [id number] Name: JESUS ALBERTO GUEVARA Jr. Rep #: [id number] : 1940 Provider: DAO Gill Age/Sex: 84/M Location: [facility] Status: Signed Intake Vital Signs 08/25/24 09:12 12/29/24 08:53 Height 5 ft 11 in BP 154/74 H Blood Pressure Location Lt brachial Position Sitting Respiration 16 Pulse 68 Pulse Source NIBP Temp 98.9 F Temp Source Oral Pulse Oximetry (%) 100 Oxygen Delivery Method room air Intake Visit Reasons: TICK BITE/CONCERN FOR INFECTION Chief Complaint: infected tick bite Assistant Engineer Required: No Is patient in pain?: No [...] drainage, or fever. pt concerned about infection. [facility] Medical History (Updated 12/29/24 @ 09:07 by [place], PA) Erythema migrans (Lyme disease) Essential hypertension Glaucoma Macular degeneration of both eyes Former smoker History of tapeworm infection COVID-19 (08/14/21) Atherosclerotic heart disease of [place] coronary artery without angina pectoris Hyperlipidemia CKD [...] arm occurring on 12/24/2024 while flyfishing in [place] with his son. He went to local urgent care where he was told it was an adult deer tick that had bitten him (after his daughter have removed the tick and full at home) and gave him a one-time dose of doxycycline. Patient states he appreciated true, "bull's-eye" presentation with the outer ring having resolved since then though persistent discomfort and swelling is appreciated to the same. Currently without complaints of fever, chills, sweats, lightheadedness/dizziness, nausea/vomiting though mild headache on date of tick bite was appreciated. No complaints of myalgias or joint pain or neck pain. No kvic-sgr-gslcswt products taken to assist. No other associated symptoms and no alleviating/aggravating factors. ROS Const Constitutional: No other (As above) Exam Const General: cooperative, healthy appearing and no acute distress Orientation: alert and awake HENCA Head: normal to inspection Ears: hearing grossly [...] the above. This note was generated with GamePressation software. It may contain incorrectwords, spelling, and punctuation that were not noted in checking the note beforesigning. Medications: New doxycycline monohydrate 100 mg PO BID 28 caps 0RF Clinical Quality Measures Falls Risk Screening/Assistive Devices Have you fallen in the past year?: No 12/29/24 0908 <Electronically signed by Clinton DC> Date _ Clinton DC Cosigner Signature: Date (if applicable) CC: ~ [facility] Work Phone: 1(227) 657-369702-28-2025 Evaluation note* Diagnosis Onset Date Resolution Status Admit Date Acute upper respiratory infection acute September 25, 025 11:47am Erythema migrans (Lyme disease) chronic December 29, 2024 8 :51am [facility] Work Phone: 1(850) 980-735802-28-2025 Evaluation note* Diagnosis Onset Date Resolution Status Admit Date Acute upper respiratory infection acute September 25, 2 025 11:47am Erythema migrans (Lyme disease) chronic December 29, 2024 8 :51am Essential hypertension acute 2024 9:13am Fatigue acute January 20 9:13am Hyperlipidemia acute January 20, 2025 9:13am Postoperative atrial fibrillation acute January 20, 2025 9:13am S/P CABG x 4 December 20, 2022 acute December 9:13am [facility] Work Phone: 1(683) 679-575402-28-2025 Radiology Diagnostic study note [facility] Imaging Services [address] [place], [place] [id number] Chest PA and Lateral MR#: [id number] Acct: [id number] Name: JESUS ALBERTO GUEVARA Rep #: [id number] : 1940 M 84 From: Steven Miller MD PCP: Dr. Jazlyn Zayas, DO Status: RE G CLI Study:Chest PA and Lateral Date of Exam: 09/25/24 Exam# [id number] Ordering Dr: Cyrus Rodriguez PROCEDURE: CHEST PA AND LATERAL REASON [...] No acute abnormality is seen. Reading Location: [id number]ALENWCWE-N CC: DAO Dobbs; Dr. Jazlyn Zayas, ~ Real Estate Services Coordinator: Signed [facility]01-28-2025 Evaluation note* Diagnosis Onset Date Resolution Status Admit Date Essential hypertension acute [facility] 2024 9:08am Hyperlipidemia acute August 252024 9:08am Postoperative atrial fibrillation acute August 25 9:08am S/P CABG x 4 December 20, 2022 acute August 25, 2024 9:08am Acute upper respiratory infection acute September 25, 025 11:47am [facility] Work Phone: 1(501) 625-842405-11-2024 Progress note Author Hiren Mcintyre [facility] December 07, 2023 9:59am Note Date/Time December 07, 2023 9:59a m [facility] Medical Records Department [address] [place] [address] Progress Note - Hospitalist 12/07/23 0957 MR#: [id number] Acct: [id number] Name: PAOLAJESUS ALBERTO Mondragon Rep #:[id number] : 1940 83 From: Hiren mancini MD PCP: Dr. Jazlyn Zayas DO Status:AD M VAISHNAVI Location: [facility] MJ519-2 Subjective Subjective Maybe a little bit better [...] -250 Lab / Micro Data 12/07/23 05:35 12/07/23 05:35 Labs: Laboratory Results - last 24 hr 12/07/23 05:35: WBC 7.7, RBC 5.61, Hgb 15.9, Hct 49.6, MCV 88.4, MCH 28.3, MCHC 32.1, RDW Std Deviation 43.3, RDW Coeff of Anyi 13.4, Plt Count 164, MPV 10.9, Immature Gran % (Auto) 0.300, Neut % (Auto) 62.6, Lymph % (Auto) 24.9, [place] % (Auto) 8.8, Eos % (Auto) 2.6, [...] DVT: SCDs Charges/Coding Visit Charges Inpatient E&M: 62096 Subs Hosp L2 12/07/23 0959 <Electronically signed by Hiren Mcintyre MD> Cosigner Signature (if applicable): CC: ~ Signed [facility] Work Phone: 1(988) 816-837105-10-2024 Progress note Author Hiren Mcintyre [facility] December 06, 2023 2:47pm Note Date/Time December 06, 2023 2:47p m [facility] Medical Records Department [address] [place] [address] Progress Note - Hospitalist 12/06/23 1444 MR#: [id number] Acct: [id number] Name: JESUS ALBERTO GUEVARA Jr. Rep #:[id number] : 1940 83 From: Hiren mancini MD PCP: Dr. Jazlyn Zayas, DO Status:AD Jose RIGGINS Location: SD3 XF019-6 Subjective Subjective Had hiccups overnight so now [...] 250 / 250 450 / 450 Balance 1996.92 / 1996. 700 / 700 -450 / -450 Lab [...] DVT: SCDs Charges/Coding Visit Charges Inpatient E&M: 23638 Subs Hosp L2 12/06/23 1447 <Electronically signed by Hiren Mcintyre MD> Cosigner Signature (if applicable): CC: ~ Signed [facility] Work Phone: 1(868) 829-290305-10-2024 Discharge summary Author Hiren Mcintyre [facility] December 06, 2023 7:25am Note Date/Time December 06, 2023 7:22a m [facility] Medical Records Department [address] [place] [address] Instructions for Home/Discharge Instructions 12/06/23 0721 MR#: [id number] Acct: [id number] Name: JESUS ALBERTO GUEVARA Jr. Rep #:[id number] : 1940 83 From: Hiren mancini MD PCP: Dr. Jazlyn Zayas, DO Status:AD M VAISH[place]VI Discharge Instructions Diet Discharge [...] can be placed): Home, Self Care 12/06/23 07<Electronically signed by Hiren Mcintyre MD>Hiren Mcintyre MD CC: Dr. Jazlyn Zayas DO; Dr. Linda Leal MD ~ Signed [facility] Work Phone: 1(634) 938-873305-09-2024 Progress note Author Hiren Mcintyre [facility] December 05, 2023 9:56am Note Date/Time December 05, 2023 9:56am [facility] Medical Records Department [address] [place] [address] Progress Note - Hospitalist 12/05/23 0955 MR#: [id number] Acct: [id number] Name: JESUS ALBERTO GUEVARA Jr. Rep #:[id number] : 1940 83 From: Hiren mancini MD PCP: Dr. Jazlyn Zayas DO Status:AD M VAISHNAVI Location: [facility] YT011-5 Subjective Subjective States he is feeling a [...] 200 / 200 Balance 50 / 50 1996. / Lab / Micro Data 12/04/23 06:00 12/04/23 [...] DVT: SCDs Charges/Coding Visit Charges Inpatient E&M: 18517 Subs Hosp L2 12/05/23 0944 <Electronically signed by Hiren Mcintyre MD> Cosigner Signature (if applicable): CC: ~ Signed [facility] Work Phone: 1(294) 673-800505-08-2024 Progress note Author Hiren Mcintyre [facility] December 04, 2023 11:41am Note Date/Time December 04, 2023 11:38a m [facility] Medical Records Department [address] [place] [address] Progress Note - Hospitalist 12/04/23 1136 MR#: [id number] Acct: [id number] Name: JESUS ALBERTO GUEVARA Jr. Rep #:[id number] : 1940 83 From: Hiren mancini MD PCP: Dr. Jazlyn Zayas, DO Status:AD M VA[place]VI Location: [facility] AL928-6 Subjective Subjective Feels better than he did [...] % (Auto) 61.8, Lymph % (Auto) 23.2, [place] % (Auto) 12.0 H, Eos % (Auto) [...] DVT: SCDs Charges/Coding Visit Charges Inpatient E&M: 04490 Subs Hosp L2 12/04/23 1141 <Electronically signed by Hiren Mcintyre MD> Cosigner Signature (if applicable): CC: ~ Signed [facility] Work Phone: 1(644) 812-842105-08-2024 Discharge summary Author Humza Don [facility] December 03, 2023 11:29pm Note Date/Time December 03, 2023 2:42pm [facility] Medical Records Department [address] [place] [address] [place] [address] Emergency Department Summary 12/03/23 MR#: [id number] Acct: [id number] Name: JESUS LABERTO GUEVARA Jr. Rep #:[id number] : 1940 83 From: Humza Rincon PCP: Dr. Jazlyn Zayas, DO Status:AD M VAISHNAVI Location: [facility] JM799-2 HPI HPI - Fall History of Present [...] of consciousness. Patient denies any other injuries. [facility] Medical History Atherosclerotic heart disease of [place] coronary artery without angina pectoris CKD (chronic [...] tabs 01/21/23 [Rx Last Taken 12/03/23] vitamins A,C,I-lfei-nvcbzu 4,296 mcg-226 mg-90 mg capsule (PreserVision AREDS) [...] Provider] - Disposition Disposition: Acute Care Hospital [facility] What to do if you have Problems For any increased pain, shortness of breath, bleeding, nausea or vomiting, chestpain, or any unexpected problems, contact your Primary Care Provider. Call [facility] ([phone]) or report to the closest Emergency Room. Call 911 if necessary. 12/03/232328 <Electronically signed by Humza Don DO> Cosigner Signature (if applicable): CC: Dr. Jazlyn Zayas DO ~ Signed [facility] Work Phone: 1(642) 718-681605-07-2024 History and physical note Author Linda Leal [facility] December 03, 2023 7:29pm Note Date/Time December 03, 2023 5:59pm [facility] Medical Records Department [address] [place] [address] History & Physical Exam 12/03/23 1752 MR#: [id number] Acct: [id number] Name: JESUS ALBERTO GUEVARA Jr. Rep #:[id number] : 1940 83 From: Linda Leal MD PCP: Dr. Jazlyn Jose Manuel, DO Status:AD M VAISHNAVI Location: [facility] WY171-3 HPI - General General Date of Admission: [...] managed for debility due to mechanical fall. [facility] Medical History Atherosclerotic heart disease of [place] coronary artery without angina pectoris CKD (chronic [...] tabs 01/21/23 [Rx Last Taken 12/03/23] vitamins A,C,A-wjgm-prppkd 4,296 mcg-226 mg-90 mg capsule (PreserVision AREDS) [...] elects to be full code. * Total oohq-xt-thlc time 16 minutes. Charges/Coding Visit Charges Inpatient E&M: 30088 Init Hosp L2 Procedures Hospitalists Procedures: 07481 Advncd Care Plan 30 Min 12/03/231928 <Electronically signed by Linda Leal MD> Cosigner Signature (if applicable): CC: Dr. Jazlyn Zayas, DO; Dr. Linda Leal MD~ Signed [facility] Work Phone: 1(690) 862-474305-07-2024 History and physical note Author Linda Leal [facility] December 03, 2023 7:29pm Note Date/Time December 03, 2023 5:59pm [facility] Medical Records Department [address] [place] [address] History & Physical Exam 12/03/23 1752 MR#: [id number] Acct: [id number] Name: JESUS ALBERTO GUEVARA Jr. Rep #:[id number] : 1940 83 From: Linda Leal MD PCP: Dr. Jazlyn Zayas, Status:AD M [facility] Location: [place] [address] HPI - General General Date of Admission: [...] managed for debility due to mechanical fall. [facility] Medical History Atherosclerotic heart disease of [place] coronary artery without angina pectoris CKD (chronic [...] tabs 01/21/23 [Rx Last Taken 12/03/23] vitamins A,C,J-phmp-efllfg 4,296 mcg-226 mg-90 mg capsule (PreserVision AREDS) 1cap PO BID 04/17/23 [History Last Taken 12/03/23] metoprolol tartrate 25 mg tablet 25 mg PO BID #180 tabs 05/06/23 [Rx Last Taken 12/03/23] coenzyme Q10 1 cap PO BID 12/03/23 [History Last Taken 12/03/23] netarsudil 0.02 %-latanoprost 0.005 % eye drops ([facility]) 1 drp ophthalmic (eye) DAILY 12/03/23 [History [...] elects to be full code. * Total pbfb-qa-covl time 16 minutes. Charges/Coding Visit Charges Inpatient E&M: 86857 Init Hosp L2 Procedures Hospitalists Procedures: 20783 Advncd Care Plan 30 Min 12/03/231928 <Electronically signed by Linda Leal MD> Cosigner Signature (if applicable): CC: Dr. Jazlyn Zayas DO; Dr. Linda Leal MD~ Signed [facility] Work Phone: 1(383) 952-348706-28-2023 History of Present illness Narrative* Phillip Jo, CAMERA TUNING ENGINEER - SCALLOP BINDER - 01/23/2023 2:00 PM EDT Images from the original note were not included. [facility]: [facility] [place] [address] [place] [address] Dept: [phone] Dept Loc: [phone] Visit type: Established patient - Virtual Reason [...] as outlined in discharge instructions: Cardiac Rehab [facility] starts Saturday; but leaning towards not doing [...] stated that they are currently in the [facility]. If the patient is a minor, [...] to start cardiac rehab also referral to [facility]. Discussed possible postop depression patient denies but [...] to discuss with PCP weaning off Protonix. transitional living specialist during visit all questions answered no other [...] pertinent diagnostic results related to office visit Phillip Jo, CAMERA TUNING ENGINEER - SCALLOP BINDER Disclaimer INFORMED CONSENT:The nature and purpose of [...] This note may have been dictated using [employer] Edition 2.6 and/or ITao Voice Recognition Feature. The document was proofread, however unrecognized voice recognition synthetic soil blocks pulper errors may be present. documented in this [facility]06-15-2023 Telephone encounter Note* Telephone Encounter - NARAYAN Monroy CNP - 01/10/2023 12:40 PM EDT Multiple phone calls to the patient to check on him with no response - Please notify me if he returns my call. [employer] Phone: 1(795) 523-704706-15-2023 Miscellaneous Notes* Telephone Encounter - NARAYAN Monroy [...] requesting page:Jesus Alberto Phone Number of caller: [phone] Facility requesting page: n/a Reason for Page: Nausea and no bowel movement Provider paged: Phillip Jo Practice Name of paged provider: Cardiothoracic Surgery Time Page was sent or provider contacted: 2:32 pm Page Content: Patient Jesus Alberto Guevara 42 is requesting a call back for the dispatch manager physicianregarding nausea and no bowel movement for 4 days at at [phone] * Telephone Encounter - Amelie Cox RN - 12/30/2022 12:33 PM EDT S: Pt calling [facility] post op with c/o nausea. B: Pt had CABG by Dr. Nickerson on 12/20/22. A: Pt c/o constant nausea. R: Dr. Consuelo Bonner paged via Secure Chat at [phone] and at 1225. Shayan Emerson CNM paged at 1305 and notified of pt's call. documented in this [facility]06-11-2023 Telephone encounter Note* Telephone Encounter - NARAYAN [...] ed to be evaluated. He verbalized understanding. [id number] Telephone encounter Note* Telephone Encounter - Luly Doran - 01/06/2023 2:32 PM EDT Name of caller requesting page:Jesus Alberto Phone Number of caller: [phone] Facility requesting page: n/a Reason for Page: Nausea and no bowel movement Provider paged: Phillip Jo Practice Name of paged provider: Cardiothoracic Surgery Time Page was sent or provider contacted: 2:32 pm Page Content: Patient Jesus Alberto Guevara 42 is requesting a call back for the dispatch manager physicianregarding nausea and no bowel movement for 4 days at at [phone] [id number] History of Present illness Narrative* NARAYAN Young CNP - 01/02/2023 11:30 AM EDT Images from the original note were not included. [facility]: [facility] [place] [address] [place] [id number] Dept: [phone] Dept Loc: [phone] Visit type: Established patient - in person Reason for Visit: Post-op Surgery/Procedure: CABGx4 with Dr. Nickerson on 12/20/22 Assessment and Plan: 1. S/P CABG (coronary artery bypass graft) - [facility] Cardiac/Pulmonary Rehab - XR chest 2 views POD#13 Day from Discharge (12/25/22) #8 -Reviewed current meds Continue as ordered - ASA, statin, BB Medication went over - patient noncompliant with medications Nystatin - ordered by PCP patient to start taking for "sore throat" Patient with hx of GERD--- not taking protonix; encouraged patient to start If continues with hoarse voice, nausea, trouble swallowing needs follow up with PCP Zofran for nausea SOB - check CXR patient to get at [facility] -Surgical Incisions: healing appropriately, well approximated, no s/s of infection -Physical therapy as outlined in discharge instructions: Ok to attend Cardiac Rehab referral sent to [facility] -Acute Post-Operative Pain Tx plan: Continue to [...] to start cardiac rehab also referral to [facility]. Discussed possible postop depression patient denies but [...] This note may have been dictated using [employer] Edition 2.6 and/or ITao Voice Recognition Feature. The document was proofread, however unrecognized voice recognition synthetic soil blocks pulper errors may be present. documented in this [facility]06-04-2023 Telephone encounter Note* Telephone Encounter - Amelie Cox RN - 12/30/2022 12:33 PM EDT S: Pt calling [facility] post op with c/o nausea. B: Pt had CABG by Dr. Nickerson on 12/20/22. A: Pt c/o constant nausea. R: Dr. Consuelo Bonner paged via Secure Chat at [phone] and at 1225. Shayan Emerson CNM paged at 1305 and notified of pt's call. [id number] Note* Care Coordination - Angelia Frausto RN - 12/25/2022 1:17 PM EDT Spoke with patient at bedside, [facility] set uo, no further discharge needs expressed. [id number] Note* Care Coordination - Angelia Frausto RN - 12/25/2022 1:17 PM EDT Spoke with patient at bedside, [facility] set uo, no further discharge needs expressed. [id number] Miscellaneous Notes* Care Coordination - Angelia Frausto RN - 12/25/2022 1:17 PM EDT Spoke with patient at bedside, [facility] set uo, no further discharge needs expressed. * Care Coordination - Unknown Case Management - 12/25/2022 12:19 PM EDT Patient Choice Patient Name: JESUS ALBERTO GUEVARA Date of : 1940 All Providers Sent Referral Name: [facility] Phone: [phone] Address: [address] [place] [address] Name: Kelsey Garcia [facility] Address: [address] [place] [address] [place] [address] Name: Home [facility] Address: [address], [address] [place] [address] [facility]: [facility] Address: [address] [place] [address] * Home Care - Elaine Madrigal RN - 12/25/2022 12:10 PM EDT Start [facility] Note Home Health Referral Educated patient on Home Care and services available. Patient offered choice of available HHC and agreeable to RN PT services with [facility]. Care Types: [...] is noted as yes - consider a RULES EXAMINER evaluation once the patient returns home. START PATIENT REGISTRATION INFORMATION Order Information Order Signing Physician: Humza Nickerson MD Service Ordered RN ?: Yes Service Ordered PT ?: Yes Service Ordered OT ?: No Service Ordered ST ?: No Service Ordered RULES EXAMINER?:No Service Ordered PROJECTION PRINTER?: No Following Physician: Dr Humza Nickerson Following Physician Overseeing Physician: Dr Humza Nickerson (Required for Residents only) Agreeable to Follow? Yes Date/Time of Call 12/25/22 12:10 PM Care Coordination Same Day SOC?: No Primary Care Physician: JAZLYN ZAYAS DO Primary Care Physician Primary Care Physician Address: [address] [place] [address] [address] [facility] [id number] Visit Instructions: N/A Service Discharge Location Type: Home with Home Health Care Service Facility Name: N/A Service Floor Facility: N/A Service Room No: N/A Demographics Patient Last Name: [place] Patient First Name: Jesus Alberto Language/Communication Barrier: n/a Service Address: [address] [place] Service City: [facility] ST: [place] Service ZIP: [address] Service (home) Other phone numbers: [phone] Emergency Contact: Extended Emergency Contact Information Primary Emergency Contact: Ruth Guevara Relation: Spouse Preferred language: Latvian Assistant Engineer needed? No Admission Information Admit Date: 12/18/2022 Patient status at discharge: Inpatient Admitting Diagnosis CAD in [place] artery [I25.10] Caregiver Information Caregiver First Name: n/a Caregiver Last Name: n/a Caregiver Relationship to Patient n/a Caregiver Phone Number: n/a Caregiver Notes: N/A 480 Biomedical[employer] List No END PATIENT REGISTRATION INFORMATION Pt [...] N/a Discharge Date: 12/25/22 Referral Source-P[facility]: (Hospital/Unit): [facility] / T1-111/T1-111 A End PACC Note * Care Plan [...] Date: 12/19/2022 Patient Name: Jesus Alberto Guevara JrAnne-Marie : 1940 Patient Information Source of Information: Patient Cognition/Language: WFL - Within Functional Limits Permission given to speak with patient retail wireless sales representative/caregiver as indicated: Yes Confirmation of Payer with patient/family: Yes Payer Name: Anthem Medicare Bradley: No Confirmation of Primary Care Physician: Confirmed [...] Daily Living Prescription Coverage: Yes Pharmacy Used: [facility] Retail pharmacy Medication Management: Independent Transportation/Shopping: [...] of falls Outcome: Progressing documented in this [facility]05-30-2023 Note* Care Coordination - Unknown Case Management - 12/25/2022 12:19 PM EDT Patient Choice Patient Name: JESUS ALBERTO GUEVARA Date of : 1940 All Providers Sent [facility] Phone: [phone] Address: [address] [place] [id number] Name: [facility] Address: [address] [place] [address] Name: [facility] Address: [address] [place] [address], [address] [place] [address] Name: [facility] Address: [address] [place] [address] [facility] [id number] Note* Care Coordination - Unknown Case Management - 12/25/2022 12:19 PM EDT Patient Choice Patient Name: JESUS ALBERTO GUEVARA Date of : 1940 All Providers Sent Referral Name: [facility] Phone: [phone] Address: [address] [place], [place] [address] Name: [facility] Address: [address] [id number] Name: [facility] Address: [address] [place] [address], [place] [address] Name: [facility] Address: [address] [place] [address] [facility] [id number] Note* Home Care - Elaine Madrigal RN - 12/25/2022 12:10 PM EDT Start PACC Note Home Health Referral Educated patient on Home Care and services available. Patient offered choice of available HHC and agreeable to RN PT services with [facility]. Care Types: [facility] SCR[facility] Program Isolation Precautions: No active [...] is noted as yes - consider a RULES EXAMINER evaluation once the patient returns home. START PATIENT REGISTRATION INFORMATION Order Information Order Signing Physician: Humza Nickerson MD Service Ordered RN ?: Yes Service Ordered PT ?: Yes Service Ordered OT ?: No Service Ordered ST ?: No Service Ordered RULES EXAMINER?:No Service Ordered PROJECTION PRINTER?: No Following Physician: Dr Humza Nickerson Following Physician Overseeing Physician: Dr Humza Nickerson (Required for Residents only) Agreeable to Follow? Yes Date/Time of Call 12/25/22 12:10 PM Care Coordination Same Day SOC?: No Primary Care Physician: JAZLYN ZAYAS DO Primary Care Physician Primary Care Physician Address: [address] [place] [address] [place] [id number] Visit Instructions: N/A Service Discharge Location Type: Home with Home Health Care Service Facility Name: N/A Service Floor Facility: N/A Service Room No: N/A Demographics Patient Last Name: Paola Patient First Name: Jesus Alberto Language/Communication Barrier: n/a Service Address: [address] [place] [address] City: [facility] ST: [place] Service ZIP: [address] Service (home) Other phone numbers: [phone] Emergency Contact: Extended Emergency Contact Information Primary Emergency Contact: Ruth Guevara Relation: Spouse Preferred language: Latvian Assistant Engineer needed? No Admission Information Admit Date: 12/18/2022 Patient status at discharge: Inpatient Admitting Diagnosis CAD in savoonga artery [I25.10] Caregiver Information Caregiver First Name: n/a Caregiver Last Name: n/a Caregiver Relationship to Patient n/a Caregiver Phone Number: n/a Caregiver Notes: N/A [employer] List No END PATIENT REGISTRATION INFORMATION Pt [...] N/a Discharge Date: 12/25/22 Referral Source-PACC: (Hospital/Unit): [facility] / T1-111/T1-111 A End PACC Note [id number] Note* Home Care - Elaine Madrigal RN - 12/25/2022 12:10 PM EDT Start PACC Note Home Health Referral Educated patient on Home Care and services available. Patient offered choice of available HHC and agreeable to RN PT services with [facility]. Care Types: [...] is noted as yes - consider a RULES EXAMINER evaluation once the patient returns home. START PATIENT REGISTRATION INFORMATION Order Information Order Signing Physician: Humza Nickerson MD Service Ordered RN ?: Yes Service Ordered PT ?: Yes Service Ordered OT ?: No Service Ordered ST ?: No Service Ordered RULES EXAMINER?:No Service Ordered PROJECTION PRINTER?: No Following Physician: Dr Humza Nickerson Following Physician Overseeing Physician: Dr Humza Nickerson (Required for Residents only) Agreeable to Follow? Yes Date/Time of Call 12/25/22 12:10 PM Care Coordination Same Day SOC?: No Primary Care Physician: JAZLYN ZAYAS DO Primary Care Physician Primary Care Physician Address: [address] [place] [address] [address] / [facility] [phone] Visit Instructions: N/A Service Discharge Location Type: Home with Home Health Care Service Facility Name: N/A Service Floor Facility: N/A Service Room No: N/A Demographics Patient Last Name: Paola Patient First Name: Jesus Alberto Language/Communication Barrier: n/a Service Address: [address] [place] [address] Service City: [facility] ST: [place] Service ZIP: [address] Service (home) Other phone numbers: [phone] Emergency Contact: Extended Emergency Contact Information Primary Emergency Contact: Ruth Guevara Relation: Spouse Preferred language: Latvian Assistant Engineer needed? No Admission Information Admit Date: 12/18/2022 Patient status at discharge: Inpatient Admitting Diagnosis CAD in savoonga artery [I25.10] Caregiver Information Caregiver First Name: n/a Caregiver Last Name: n/a Caregiver Relationship to Patient n/a Caregiver Phone Number: n/a Caregiver Notes: N/A 480 [employer] List No END PATIENT REGISTRATION INFORMATION Pt [...] N/a Discharge Date: 12/25/22 Referral Source-PACC: (Hospital/Unit): [facility] / T1-111/T1-111 A End PACC Note [facility] [id number] History of Present illness Narrative* Tommie Armenta MD - 12/25/2022 11:59 AM EDT Nephrology Progress Note Following for KASSANDRA on CKD. He denies CP, SOB or nausea. Current Inpatient Medications: Reviewed on SEP. Vitals: BP 121/76 (BP Location: Left arm, Patient Position: Lying) Pulse 68 Temp 36.8 C (98.2 F) (Temporal) Resp 18 Ht 1.803 m (5' 11") Wt 101 kg (221 lb 11.2 oz) [...] 1.49* 1.47* 1.55* Assessment: Jesus Alberto Guevara . is a 82 y.o. male with PMH including HTN, HLD, TIA, who presented from [facility] on 12/18/2022 due to positive stress test [...] Du RRT - 12/25/2022 10:56 AM EDT [facility] Respiratory Care Department Home O2 Progress Note Any of the following criteria met: Ambulation home O2 testing SpO2 at rest on RA = 96 HR at rest = 68 SpO2 with ambulation on RA = 93 Peak HR = 82 Distance Walked (ft)= >50FT Patient meets criteria for home O2 Y/N = no Patient mobile at home Y/N = yes * Kelsey Cooper PTA - 12/25/2022 9:44 AM EDT Physical Therapy Facility/Department: [facility] Physical Therapy Daily Treatment Note NAME: Jesus [...] Diagnosis(es): The encounter diagnosis was CAD in [place]onga artery. has no past medical history on [...] Cooper PTA * Phillip Jo APRN - YANET - 12/25/2022 6:06 AM EDT Images from the original note were not included. 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 Today he was transferred from [facility] due to a positive stress test with [...] not get loaded with P2Y12 therapy at [facility], he is on BB, asa, statin and [...] RDW 14.1 13.8 13.9 INR: Recent Labs 12/23/22 0012 INR 1.0 Physical Exam Cardiovascular: Rate [...] [x] No Arterial Line: []Yes [x] No Olmedo: []Yes [x] No Restraints: []Yes [x] No Patient discussed and plan of day developed from multidisciplinary rounds between Cardiothoracic Surgery (Cardiothoracic Surgeon, LUCHO) and Critical Care Attending Cardiac Core Medications: ASA, Statin, and BB EF: 55% 12/18/22 Blood Conservation: None noted in post-operative period Rn Hospital: Dr. Khan ([facility]) * Sammi Patten, - 12/24/2022 2:07 PM EDT Nephrology Progress Note Following for KASSANDRA on CKD. He denies CP, SOB or nausea. Starting diet today Current Inpatient Medications: Reviewed on SEP. Vitals: BP 118/71 (BP Location: Left arm, Patient Position: Lying) Pulse 65 Temp 36.8 C (98.3 F) (Oral) Resp 16 Ht 1.803 m (5' 11") Wt 102 kg (225 lb) SpO2 92% [...] CREATININE 1.36* 1.49* 1.47* Assessment: Jesus Alberto Guevara Jr. is a 82 y.o. male with PMH including HTN, HLD, TIA, who presented from [facility] on 12/18/2022 due to positive stress test [...] electrolytes. Sammi Patten DO * Phillip Jo CAMERA TUNING ENGINEER - SCALLOP BINDER - 12/24/2022 5:30 AM EDT Images from the original note were not included. Cardiothoracic Surgery/CCM Progress Note PATIENT NAME: Jesus Alberto Guevara Jr. 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 Today he was transferred from [facility] due to a positive stress test with [...] not get loaded with P2Y12 therapy at [facility], he is on BB, asa, statin and [...] been like that because he has a "pot belly". Review of Systems Constitutional: Negative for diaphoresis, [...] Blood Conservation: None noted in post-operative period Rn Hospital: Dr. Khan ([facility]) Associated attestation - Mat Barrios MD - [...] Surgery Note PATIENT NAME: Jesus Alberto Guevara Jr. : 1940 (82 y.o.) TODAY'S DATE: 12/23/2022 Objective: BP 135/70 Pulse 72 Temp 37.8 C (100 F) (Temporal) Resp 18 Ht 5' 11" (1.803 m) Wt 232 lb 2.3 oz [...] (Temporal) Resp 18 Ht 1.803 m (5' 11") Wt 105 kg (232 lb 2.3 oz) [...] 1.57* 1.36* 1.49* Assessment: Jesus Alberto Guevara is a 82 y.o. male with PMH including HTN, HLD, TIA, who presented from [facility] on 12/18/2022 due to positive stress test with inferior WMA, EKG changes. The patient is status post C done which showed MVCAD. He is status [...] do not hesitate to contact me at [phone] if there is any question or concern. MAINOR RUTLEDGE MD, MD (Karthikeyan Jay) * Manuelito Reyes, CAMERA TUNING ENGINEER - SCALLOP BINDER - 12/23/2022 5:59 AM EDT Images from the original note were not included. Cardiothoracic Surgery/[facility] Progress Note PATIENT NAME: Jesus Alberto Guevara Jr. 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 Today he was transferred from [facility] due to a positive stress test with inferior WMA, EKG changes, t-wave inversions in the inferior leads. 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 His EF was 75% on LV gram and during the stress test was measured at 65% - Normal LVEDP. He does have CKD baseline creat of 1.42. Other labs are unremarkable. He did not get loaded with P2Y12 therapy at [facility], he is on BB, asa, statin and [...] 12/20/22 1242 12/21/22 0012 12/22/22 0127 12/23/22 001 NA 139 137 134* 134* K 4.5 4.6 4.2 4.0 CL 111* 110* 107 103 CO2 21* 18* 22 27 BUN 21* 22* 23* 25* CREATININE 1.41* 1.57* 1.36* 1.49* CALCIUM 8.4 7.9* 8.0* 7.9* MG 3.2* 2.4* 2.4* 2.2 PHOS 3.1 -- -- -- CBC: Recent Labs 12/21/22 0012 12/22/22 0127 12/23/22 001 WBC 10.3 11.6* 11.3* HGB 10.8* 10.8* 11.1* HCT 31.4* 32.1* 33.4* PLT 103* 107* 133* MCV 86.8 87.5 87.9 RDW 13.7 14.4 14.1 INR: Recent Labs 12/21/22 0012 12/22/22 0127 12/23/22 001 INR 1.1 1.1 1.0 Physical [...] Blood Conservation: None noted in post-operative period Rn Hospital: Dr. Khan ([facility]) Associated attestation - Octavia Wesley MD - 12/23/2022 10:20 AM EDT I have personally performed a kqmb-yy-gyyf diagnostic evaluation on this patient on date of service12/23/22. History, labs, imaging studies, and electronic medical record have been reviewed by me. This note documented by the []fun house operator [x]LUCHO reflects my history, exam, and medical [...] 25 BID. Rest of care as per LUCOH note. * Sydni Pizarro APRN - YANET - 12/22/2022 6:49 PM EDT Department of Internal Medicine Division of Endocrinology, Diabetes, & Metabolism Endocrinology Note Patient Name: Jesus Alberto Guevara : 1940 AGE: 82 y.o. Room/Bed: T1-111/T1-111 A Admission Date: 12/18/2022 Visit Date: 12/22/2022 Reason for Endocrine Consult: post op heart Provider/Team Requesting Consult: CTS PCP: JAZLYN ZAYAS, DO Outpt Director Prison: No ASSESSMENT: Stress hyperglycemia Cabg CAD/HTN/HLD KASSANDRA [...] No noted hx of diabetes noted Bgl [phone] Feels good Pain is better Eating well [...] found for: CHOLHDLRATIO No results found for: [id number] Lab Results Component Value Date TSH 0.804 [...] Name: [facility]ES[facility]BERTO [facility] 1940 [id number] Exam Date/Time: 12/19/2022 07:53 Procedure: XR CHEST [...] (98.2 F) (Oral) Resp 18 Ht 5' 11" (1.803 m) Wt 232 lb 2.3 oz [...] - 12/22/2022 4:07 PM EDT [facility] [address] [place], [place] [id number] Progress Note Assessment: Jesus Alberto Guevara Jr. is a 82 y.o. male with PMH including HTN, HLD, TIA, who presented from [facility] due to positive stress test with inferior [...] (Temporal) Resp 20 Ht 1.803 m (5' 11") Wt 105 kg(232 lb 2.3 oz) SpO2 [...] Mendes RCP - 12/22/2022 7:23 AM EDT [facility] Respiratory Care Department Progress Note Comment [...] mind regarding wearing PAP to hit their "call light" or inform their nurse to contact Respiratory. [...] care of this patient, * Manuelito Reyes, NARAYAN - SCALLOP BINDER - 12/22/2022 6:28 AM EDT Images from the original note were not included. Cardiothoracic Surgery/CCM Progress Note PATIENT NAME: Jesus Alberto Guevara Jr. 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 Today he was transferred from [facility] due to a positive stress test with inferior WMA, EKG changes, t-wave inversions in the inferior leads. 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 His EF was 75% on LV gram and during the stress test was measured at 65% - Normal LVEDP. He does have CKD baseline creat of 1.42. Other labs are unremarkable. He did not get loaded with P2Y12 therapy at [facility], he is on BB, asa, statin and [...] on tele, BP stable, on 3L NC. [place] and art line removed yesterday.Creatinine trending down. [...] Blood Conservation: None noted in post-operative period Rn Hospital: Dr. Khan ([facility]) Associated attestation - Octavia Wesley MD - 12/22/2022 11:04 AM EDT I have personally performed a kxop-sz-rwws diagnostic evaluation on this patient on date of service12/22/22. History, labs, imaging studies, and electronic medical record have been reviewed by me. This note documented by the []fun house operator [x]LUCHO reflects my history, exam, and medical [...] IS, OOB, acapella, wean off oxygen * Thu Sierra, OT - 12/21/2022 3:02 PM EDT Occupational Therapy Facility/Department: [facility] Occupational Therapy Initial Evaluation NAME: Jesus Alberto MondragonAnne-Marie Guevara Jr. : 1940 Date of Service: [...] Prognosis: Good Decision Making: Low Complexity Exam: [facility] Activity Tolerance Activity Tolerance: Patient limited by fatigue, Patient limited by pain Patient Diagnosis(es): The encounter diagnosis was CAD in sav[place]onga artery. has no past medical history on [...] today. + confusionthis date and pt states "I feel confused right now" Overall Orientation Status: Within Functional Limits (except [...] With device?: No Transfer Assistance: Independent Active Industrial Gas Servicer: Yes Additional Comments: can help Objective Gross [...] Daily Activity Raw Score: 13 ADL Inpatient [facility] G-Code Modifier: CL Goals Encounter Problems Encounter [...] Expected End: 01/18/23 Safety Patient will recall 09/28 and adhere to sternal precautions during all [...] Plan of [facility]. Thu Sierra OTR/L * Tommie Armenta MD - 12/21/2022 11:57 AM EDT [facility] [address] [place] [address] Progress Note Assessment: Jesus Alberto Guevara is a 82 y.o. male with PMH including HTN, HLD, TIA, who presented from [facility] due to positive stress test with inferior [...] (Temporal) Resp 22 Ht 1.803 m (5' 11") Wt 105 kg (232 lb 2.3 oz) [...] 12/21/2022 11:14 AM EDT Physical Therapy Facility/Department: [facility] Physical Therapy Initial Evaluation NAME: Jesus Alberto Saldivar Paola Lopez : 1940 Date of Service: 12/21/2022 Discharge [...] Diagnosis(es): The encounter diagnosis was CAD in sav[place]onga artery. has no past medical history on [...] Inpatient Mobility Raw Score: 10 Mobility Inpatient [facility] G-Code Modifier: CL Goals Encounter Problems Encounter [...] Plan of Care supervision is transferred to [facility] Rehab Department Physical Therapist. Octavia Vergara, PT * Mily Gtz, CAMERA TUNING ENGINEER - SCALLOP BINDER - 12/21/2022 9:43 AM EDT Department of Internal Medicine Division of Endocrinology, Diabetes, & Metabolism Endocrinology Note Patient Name: Jesus Alberto Guevara Jr. : 1940 AGE: 82 y.o. [facility] Admission Date: 12/18/2022 Visit Date: 12/21/2022 Reason for Endocrine Consult: post op heart Provider/Team Requesting Consult: CTS PCP: JAZLYN ZAYAS, DO Outpt Director Prison: No ASSESSMENT: Stress hyperglycemia Cabg CAD/HTN/HLD KASSANDRA [...] Patient Position: Pulse: 77 77 76 Resp: Temp: 36.9 C (98.5 F) TempSrc: Temporal SpO2: 97% 97% 96% Weight: Height: 5' 11" (1.803 m) PF: Physical Exam Vitals and [...] found for: CHOLHDLRATIO No results found for: [id number] Lab Results Component Value Date TSH 0.804 [...] (97.9 F) (Temporal) Resp 22 Ht 5' 11" (1.803 m) Wt 232 lb 2.3 oz [...] of care as documented in note. * NARAYAN Cagle CNP - 12/21/2022 5:49 AM EDT Images from the original note were not included. Cardiothoracic Surgery/CCM Progress Note PATIENT NAME: Jesus Alberto Guevara Jr. 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 Today he was transferred from [facility] due to a positive stress test with inferior WMA, EKG changes, t-wave inversions in the inferior leads. 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 His EF was 75% on LV gram and during the stress test was measured at 65% - Normal LVEDP. He does have CKD baseline creat of 1.42. Other labs are unremarkable. He did not get loaded with P2Y12 therapy at [facility], he is on BB, asa, statin and [...] loss anemia Plan: Patient Status: ICU Remove Luverne and arterial line. Start low dose aspirin [...] Blood Conservation: None noted in post-operative period Rn Hospital: Dr. Khan ([facility]) Associated attestation - Octavia Wesley MD - 12/21/2022 9:19 AM EDT I have personally performed a odpv-dj-gszu diagnostic evaluation on this patient on date of service12/21/22. History, labs, imaging studies, and electronic medical record have been reviewed by me. This note documented by the []fun house operator [x]LUCHO reflects my history, exam, and medical [...] OOB PT work [employer] pain [employer] Pulm jerryeine, IS, OOB, acapella, wean off oxygen * Maribel Andrade RCP - 12/20/2022 10:19 PM EDT [facility] Respiratory Care Department Progress Note Comment [...] mind regarding wearing PAP to hit their "call light" or inform their nurse to contact Respiratory. [...] Armenta MD - 12/20/2022 2:35 PM EDT [facility] [address] [place] [address] Progress Note Assessment: Jseus Alberto Guevara is a 82 y.o. male with PMH including HTN, HLD, TIA, who presented from [facility] due to positive stress test with inferior [...] (Temporal) Resp 13 Ht 1.803 m (5' 11") Wt 102kg (225 lb) SpO2 97% BMI [...] Dietitian. KASSANDRA on CKD. documented in this [facility]05-30-2023 Hospital course Narrative* Phillip Jo, CAMERA TUNING ENGINEER - SCALLOP BINDER - 12/25/2022 10:55 AM EDT Images from the original note were not included. Discharge Summary: Cardiothoracic Surgery Jesus Alberto Guevara Jr., 82 y.o., 1940 ADMIT DATE: 12/18/2022 DISCHARGE DATE: 12/25/2022 DISCHARGING SURGEON: Humza Nickerson MD, Office Number: [phone] PRIMARY CARE PHYSICIAN: JAZLYN ZAYAS DO TREATMENT TEAM: Rn Hospital: Dr. 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 Today he was transferred from [facility] due to a positive stress test with [...] not get loaded with P2Y12 therapy at [facility], he is on BB, asa, statin and [...] (98.2 F) (Temporal) Resp 18 Ht 5' 11" (1.803 m) Wt 221 lb 11.2 oz [...] Your Medications These medications were sent to [facility] [address] [place] [phone] Hours: Saturday to Saturday 10 am to [...] CNP 12/25/2022, 10:55 AM documented in this [facility]05-30-2023 Hospital Discharge instructions* Discharge Instructions* NARAYAN Young CNP - 12/25/2022 10:40 AM EDT Images from the original note were not included. [facility]: Cardiothoracic Surgery [address] [facility] #[phone] Notify us if the following occur - [...] PM EDT Discharging to Facility/ Agency Name: [facility] Address: [address] [place] [address] documented in this [id number] Plan of care note* Care Plan - Eugenia Ly RN - 12/24/2022 2:24 PM EDT The patient is Moderately Stable - Low risk of patient condition declining or worsening The patient's goals for the shift include patient will feel rested The clinical goals for the shift include Goal met [id number] Note* Rapid Response Note - Amaya Meredith [...] , catheter intact. Patient in NAD. . [id number] Note* Rapid Response Note - Amaya Meredith [...] , catheter intact. Patient in NAD. . [id number] Respiratory Care Department Progress Note Comment [...] mind regarding wearing PAP to hit their "call light" or inform their nurse to contact Respiratory. [...] Respiratory in the care of this patient, [facility]05-26-2023 NoteNutrition Assessment Type and Reason for Visit: Initial, Consult, Patient Education (cardiac diet) Nutrition Recommendations/Plan: Continue diet as ordered Per MNT protocol, will order Ensure HP BID to promote protein and overall p.o. intake for optimal postop healing (160 kcal, 16 g protein, 8 oz each) Provided heart healthy diet handout with [facility] RD phone number. Will return prior [...] muscle mass loss Fluid Accumulation: Mild Generalized Tax Audit Manager Strength: Not Performed Nutrition Assessment: Pt with PMH including HTN, HLD, TIA, who presented from [facility] due to positive stress test with inferior [...] diet. RD provided heart heatlhy handout with [facility] [facility] phone number for independent review, advised pt that RD will return prior to discharge for diet instruction. Pt is agreeable to ONS. RD also encouraged p.o. intake Estimated Daily Nutrient Needs: Energy Requirements Based On: Kcal/kg Weight Used for Energy Requirements: [place] (25-30 kcal/kg) Weight for Energy Calculation (kg): 78 kg Total Energy Requirements (kcals/day): 4582-2469 Weight Used for Protein Requirements: [place] (1.2-1.5 g/kg) Weight in Kg Used for [...] Ordered Anthropometric Measures: Height: 180.3 cm (5' 11") Current Body Weight: 105 kg (232 lb) (standing scale 12/20) Weight Source: Standing Scale Admission Body Weight: 103 kg (227 lb) (standing scale 12/19) Usual Body Weight: (232# on 08/23/22, 227# on 06/08/22) [place] Body Weight (lbs) (Calculated): 172 lbs [place] Body Weight (Kg) (Calculated): 78 kg % [place] Body Weight (Calculated): 134.9 % BMI (kg/m2) [...] while inpatient Goals: Goals (more content not included)...[facility]05-26-2023 Consult note* Winter Callaway RD - 12/21/2022 [...] each) Provided heart healthy diet handout with [facility] phone number. Will return prior [...] muscle mass loss Fluid Accumulation: Mild Generalized Tax Audit Manager Strength: Not Performed Nutrition Assessment: Pt with PMH including HTN, HLD, TIA, who presented from [facility] due to positive stress test with inferior [...] diet. RD provided heart heatlhy handout with [facility] phone number for independent review, advised pt that RD will return prior to discharge for diet instruction. Pt is agreeable to ONS. RD also encouraged p.o. intake Estimated Daily Nutrient Needs: Energy Requirements Based On: Kcal/kg Weight Used for Energy Requirements: [place] (25-30 kcal/kg) Weight for Energy Calculation (kg): 78 kg Total Energy Requirements (kcals/day): 6813-1380 Weight Used for Protein Requirements: [place] (1.2-1.5 g/kg) Weight in Kg Used for [...] Ordered Anthropometric Measures: Height: 180.3 cm (5' 11") Current Body Weight: 105 kg (232 lb) (standing scale 12/20) Weight Source: Standing Scale Admission Body Weight: 103 kg (227 lb) (standing scale 12/19) Usual Body Weight: (232# on 08/23/22, 227# on 06/08/22) [place] Body Weight (lbs) (Calculated): 172 lbs [place] Body Weight (Kg) (Calculated): 78 kg % [place] Body Weight (Calculated): 134.9 % BMI (kg/m2) [...] to determine Winter Callaway RD, LD Contact: *[phone] or via [employer]Kit chat [employer] [id number] Consult note* Winter Callaway RD - 12/21/2022 [...] each) Provided heart healthy diet handout with [facility] phone number. Will return prior [...] muscle mass loss Fluid Accumulation: Mild Generalized Tax Audit Manager Strength: Not Performed Nutrition Assessment: Pt with PMH including HTN, HLD, TIA, who presented from [facility] due to positive stress test with inferior [...] diet. RD provided heart heatlhy handout with [facility] phone number for independent review, advised pt that RD will return prior to discharge for diet instruction. Pt is agreeable to ONS. RD also encouraged p.o. intake Estimated Daily Nutrient Needs: Energy Requirements Based On: Kcal/kg Weight Used for Energy Requirements: [place] (25-30 kcal/kg) Weight for Energy Calculation (kg): 78 kg Total Energy Requirements (kcals/day): 4728-8837 Weight Used for Protein Requirements: [place] (1.2-1.5 g/kg) Weight in Kg Used for [...] Ordered Anthropometric Measures: Height: 180.3 cm (5' 11") Current Body Weight: 105 kg (232 lb) (standing scale 12/20) Weight Source: Standing Scale Admission Body Weight: 103 kg (227 lb) (standing scale 12/19) Usual Body Weight: (232# on 08/23/22, 227# on 06/08/22) [place] Body Weight (lbs) (Calculated): 172 lbs [place] Body Weight (Kg) (Calculated): 78 kg % [place] Body Weight (Calculated): 134.9 % BMI (kg/m2) [...] to determine Winter Callaway RD, LD Contact: *[phone] or via [employer]Kit chat * Mily Gtz, CAMERA TUNING ENGINEER - SCALLOP BINDER - 12/20/2022 1:21 PM EDTAssociated Order(s): IP CONSULT TO ENDOCRINOLOGY Department of Internal Medicine Division of Endocrinology, Diabetes, & Metabolism Endocrinology Note Patient Name: Jesus Alberto Guevara Jr. : 1940 AGE: 82 y.o. [facility] Admission Date: 12/18/2022 Visit Date: 12/20/2022 Reason for Endocrine Consult: post op heart Provider/Team Requesting Consult: CTS PCP: JAZLYN ZAYAS DO Outpt Director Prison: No ASSESSMENT: Stress hyperglycemia Cabg CAD/HTN/HLD KASSANDRA [...] found for: CHOLHDLRATIO No results found for: [id number] Lab Results Component Value Date TSH 0.804 12/18/2022 Radiology reportsas per the Radiologist Radiology: ECG 12 lead Result Date: 12/19/2022 Sinus bradycardia Nonspecific T abnormalities, lateral leads Electronically Signed On 12-19-2022 9:21:36 EDT by Nathan Alvarez CT chest wo IV contrast Result Date: 12/19/2022 Patient Name: JESUS ALBERTO GUEVARA : 1940 [facility]#: [id number] Exam Date/Time: 12/18/2022 21:41 Procedure: CT CHEST [...] C (98.8 F) Resp 19 Ht 5' 11" (1.803 m) Wt 225 lb (102 kg) [...] care as documented in note. * Shayan Emerson APRN - SCALLOP BINDER - 12/20/2022 7:06 AM EDT Images from the original note were not included. [facility]: Critical Care Consultation Note Date: 12/20/22 PATIENT NAME: Jesus Alberto MondragonAnne-Marie Guevara Jr. 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 Today he was transferred from [facility] due to a positive stress test with inferior WMA, EKG changes, t-wave inversions in the inferior leads. 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 His EF was 75% on LV gram and during the stress test was measured at 65% - Normal LVEDP. He does have CKD baseline creat of 1.42. Other labs are unremarkable. He did not get loaded with P2Y12 therapy at [facility], he is on BB, asa, statin and [...] CI 2.0 CVP 10 SVR 1008 PAP 45/ Additional Interventions/Misc during Handoff None Allergies: Patient [...] (98 F) (Temporal) Resp 18 Ht 5' 11" (1.803 m) Wt 225 lb 4.8 oz [...] 4.1 CL 105 109* 110* CO2 26 BUN * CREATININE 1.28* 1.29* 1.58* CALCIUM 8.5 8.0* [...] DVT prophylaxis: TEDs and SCDs Restraints: none Rn Hospital: [facility] Associated attestation - Octavia Wesley MD - 12/20/2022 3:48 PM EDT I have personally performed a jjgt-fi-epcu diagnostic evaluation on this patient on date of service12/20/22. History, labs, imaging studies, and electronic medical record have been reviewed by me. This note documented by the []fun house operator [x]LUCHO reflects my history, exam, and medical [...] Order(s): IP CONSULT TO NEPHROLOGY [facility] [address] [place] [address] Consult Note Patient's Name: Jesus Alberto Guevara Jr. 9:47 AM 12/19/2022 Reason for Consult: CKD History of Present Ilness: Jesus Alberto Guevara Jr. is a 82 y.o. male with PMH including HTN, HLD, TIA, who presented from [facility] due to positive stress test with inferior WMA, EKG changes, had LHC done which showed MVCAD. 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 Patient reports feeling sleepy, but denies pain, [...] (Core) Resp 16 Ht 1.803 m (5' 11") Wt 103 kg (227 lb) SpO2 96% [...] including HTN, HLD, TIA, who presented from [facility] due to positive stress test with inferior [...] as documented in his note. Please call [phone] or message me through [employer] with any questions or concerns. documented in this [facility]05-26-2023 Emergency department Note* Octavia Wesley MD - 12/21/2022 8:07 AM EDT EE: [facility]: 1(144) 366-109205-26-2023 Emergency department Note* Octavia Wesley MD - 12/21/2022 8:07 AM EDT EE: Planned CABG 12/20 documented in this [address]26-2023 [facility] Respiratory Care Department Progress Note Comment [...] mind regarding wearing PAP to hit their "call light" or inform their nurse to contact Respiratory. [...] Respiratory in the care of this patient, [facility]05-25-2023 NotePatient: Jesus Alberto Guevara Jr. Procedure Summary Date: 12/20/22 Room / Location: [facility] OR [address] [place] [address] Operating Room Anesthesia Start: 0755 Anesthesia Stop: Procedures: CABG, TRANSESOPHAGEAL ECHOCARDIOGRAPHY (Chest) Echocardiography transesophageal real-time Diagnosis: Atherosclerotic heart disease of [place] coronary artery without angina pectoris (Atherosclerotic heart disease of [place] coronary artery without angina pectoris [I25.10]) Surgeons: [...] discharged once all PACU criteria has been met.[facility] [id number] NotePatient: Jesus Alberto Guevara Jr. Procedure Summary Date: 12/20/22 Room / Location: [address] Operating Room Anesthesia Start: 754 Anesthesia Stop: Procedures: CABG, TRANSESOPHAGEAL ECHOCARDIOGRAPHY (Chest) Echocardiography transesophageal real-time Diagnosis: Atherosclerotic heart disease of [place] coronary artery without angina pectoris (Atherosclerotic heart disease of [place] coronary artery without angina pectoris [I25.10]) Surgeons: [...] Allowed opportunity for questions and acknowledgement of understanding.[facility]05-25-2023 Note* Significant Event - Bib Jay RCP - 12/20/2022 2:58 PM EDT TC trial started HR 85, BP 103/53, spo2 92%, f/vt 38 15 mins : HR 85, spo2 93%, tv 317, RR 27, BP 116/62, f/vt 48 30 mins HR 84, RR 17, TV 486, spo2 90%, f/vt 41, BP 128/63 Dr. Nickerson notified [id number] Note* Significant Event - Bib Jay RCP - 12/20/2022 2:58 PM EDT TC trial started HR 85, BP 103/53, spo2 92%, f/vt 38 15 mins : HR 85, spo2 93%, tv 317, RR 27, BP 116/62, f/vt 48 30 mins HR 84, RR 17, TV 486, spo2 90%, f/vt 41, BP 128/63 Dr. Nickerson [id number] Consult note* Mily Gtz, CAMERA TUNING ENGINEER - SCALLOP BINDER - 12/20/2022 1:21 PM EDTAssociated Order(s): IP CONSULT TO ENDOCRINOLOGY Department of Internal Medicine Division of Endocrinology, Diabetes, & Metabolism Endocrinology Note Patient Name: Jesus Alberto Guevara Jr. : 1940 AGE: 82 y.o. [facility] Admission Date: 12/18/2022 Visit Date: 12/20/2022 Reason for Endocrine Consult: post op heart Provider/Team Requesting Consult: CTS PCP: JAZLYN ZAYAS, DO Outpt Director Prison: No ASSESSMENT: Stress hyperglycemia Cabg CAD/HTN/HLD KASSANDRA [...] found for: CHOLHDLRATIO No results found for: [id number] Lab Results Component Value Date TSH 0.804 12/18/2022 Radiology reportsas per the Radiologist Radiology: ECG 12 lead Result Date: 12/19/2022 Sinus bradycardia Nonspecific T abnormalities, lateral leads Electronically Signed On 12-19-2022 9:21:36 EDT by Nathan Alvarez CT chest wo IV contrast Result Date: 12/19/2022 Patient Name: [facility]ES[facility]BERTO [facility] 1940 [id number] Exam Date/Time: 12/18/2022 21:41 Procedure: CT CHEST [...] C (98.8 F) Resp 19 Ht 5' 11" (1.803 m) Wt 225 lb (102 kg) [...] coordination of care as documented in note. [id number] NoteArterial Line: Date/Time: 12/20/2022 8:09 AM An [...] complications. Staffing Performed: anesthesiologist Anesthesiologist: Pato Duarte [facility]05-25-2023 NoteCentral Venous Line: Date/Time: 12/20/2022 8:30 AM [...] site was prepped with Chlorhexidine. Size: 8 Sami Length: 16 Catheter type: introducer Number of [...] during the procedure: no complications. Staffing Performed: TRACTOR MECHANIC Resident/TRACTOR MECHANIC: Coleman Osei APRN [facility]05-25-2023 NoteAirway Date/Time: 12/20/2022 8:10 AM Urgency: scheduled General Information and Staff Patient location during procedure: Procedural Anesthesiologist: Pato Duarte DO Resident/TRACTOR MECHANIC: Coleman Osei APRN - TRACTOR MECHANIC Performed: anesthesiologist Indications and Patient Condition Indications [...] approach: 1 Number of other approaches attempted: [address] [place], [place] 8407005-25-2023 Note Patient: Jesus Alberto Guevara JrAnne-Marie Procedure Information Date/Time: 12/20/22 0800 Procedures: CABG, TRANSESOPHAGEAL ECHOCARDIOGRAPHY (Chest) Echocardiography transesophageal real-time Location: [facility] OR Operating Room Surgeons: Humza Nickerson MD he was transferred from [facility] due to a positive stress test with inferior WMA, EKG changes, t-wave inversions in the inferior leads. 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 His EF was 75% on LV gram and during the stress test was measured at 65% - Normal LVEDP. He does have CKD baseline creat of 1.42. Cath 12/17/22 [facility] [address]. Khan LAD 80% lesion CX 80% [...] regurgitation. Relevant Problems Cardio (+) CAD in [place] artery Past Medical History: No past medical [...] by: Nathan Alvarez MD on 12/19/2022 9:21 [facility] 12-20-2022 Consult note* Shayan Wilson Idania, CAMERA TUNING ENGINEER - SCALLOP BINDER - 12/20/2022 7:06 AM EDT Images from the original note were not included. [facility]: Critical Care Consultation Note Date: 12/20/22 PATIENT NAME: Jesus Alberto Guevara Jr. 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 Today he was transferred from [facility] due to a positive stress test with inferior WMA, EKG changes, t-wave inversions in the inferior leads. 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 His EF was 75% on LV gram and during the stress test was measured at 65% - Normal LVEDP. He does have CKD baseline creat of 1.42. Other labs are unremarkable. He did not get loaded with P2Y12 therapy at [facility], he is on BB, asa, statin and [...] (98 F) (Temporal) Resp 18 Ht 5' 11" (1.803 m) Wt 225 lb 4.8 oz [...] DVT prophylaxis: TEDs and SCDs Restraints: none Rn Hospital: [facility] Associated attestation - Octavia Wesley MD - 12/20/2022 3:48 PM EDT I have personally performed a joeo-bf-yuli diagnostic evaluation on this patient on date of service12/20/22. History, labs, imaging studies, and electronic medical record have been reviewed by me. This note documented by the []fun house operator [x]LUCHO reflects my history, exam, and medical [...] 32 min so far today, excluding procedures. [employer] Phone: 1(630) 196-898405-24-2023 Note* Care Coordination - Angelia Frausto RN - 12/19/2022 1:20 PM EDT Care Managment Initial Assessment Date: 12/19/2022 Patient Name: Jesus Alberto Guevara Jr. : 1940 Patient Information Source of Information: Patient Cognition/Language: WFL - Within Functional Limits Permission given to speak with patient retail wireless sales representative/caregiver as indicated: Yes Confirmation of Payer with patient/family: Yes Payer Name: Anthem Medicare Bradley: No Confirmation of Primary Care Physician: Confirmed [...] Daily Living Prescription Coverage: Yes Pharmacy Used: [facility] Retail pharmacy Medication Management: Independent Transportation/Shopping: [...] care needs post operatively. Angelia Frausto RN T [id number] Note* Care Coordination - Angelia Frausto RN - 12/19/2022 1:20 PM EDT Care Managment Initial Assessment Date: 12/19/2022 Patient Name: Jesus Alberto Guevara : 1940 Patient Information Source of Information: Patient Cognition/Language: WFL - Within Functional Limits Permission given to speak with patient retail wireless sales representative/caregiver as indicated: Yes Confirmation of Payer with patient/family: Yes Payer Name: Anthem Medicare Bradley: No Confirmation of Primary Care Physician: Confirmed [...] Daily Living Prescription Coverage: Yes Pharmacy Used: [facility] Retail pharmacy Medication Management: Independent Transportation/Shopping: [...] care needs post operatively. Angelia Frausto RN [facility] [id number] Consult note* Tommie Armenta MD - 12/19/2022 9:47 AM EDT Associated Order(s): IP CONSULT TO NEPHROLOGY [facility] [address] [place] [address] Consult Note Patient's Name: Jesus Alberto Guevara Jr. 9:47 AM 12/19/2022 Reason for Consult: CKD History of Present Ilness: Jesus Alberto Guevara Jr. is a 82 y.o. male with PMH including HTN, HLD, TIA, who presented from [facility] due to positive stress test with inferior WMA, EKG changes, had LHC done which showed MVCAD. 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 Patient reports feeling sleepy, but denies pain, [...] (Core) Resp 16 Ht 1.803 m (5' 11") Wt 103 kg (227 lb) SpO2 96% [...] including HTN, HLD, TIA, who presented from [facility] due to positive stress test with inferior WMA, EKG changes, had LHC done which showed MVCAD. Nephrology consulted for CKD. CKD- stage 3, recently Scr stable ~1.3mg/dl -non-oliguric recently HTN- BP with some elevation recently, monitor Volume- no overt fluid overload Acid/base- appears compensated on recent value Plan: -monitor renal function, electrolytes -noted plan for surgery tomorrow NARAYAN Matrin CNP Pt seen and examined independently by me. I reviewed with SABINE Wadsworth the medical history and the findings on physical examination. I discussed the patient s diagnosis and concur with the treatment plan as documented in his note. Please call [phone] or message me through [employer] with any questions or concerns. [id number] Plan of care note* Care Plan - [...] will remain free of falls Outcome: Progressing [id number] Telephone encounter Note* Telephone Encounter - Dayana Holden Khurram - 12/18/2022 5:22 PM EDT Name of caller: Felicita Contact phone number: [phone] Relationship to Patient: [employer] Insurance Provider: Dr. Nickerson Practice: [facility] Cardiothoracic Surgery Chief Complaint/Reason for Call: Felicita states they need authorization for his surgery on 12/20/24. Please advise. Best time of day caller can be reached: any Patient advised that office/PCP has 24-48 business hours to return their call: N/A [facility] [id number] Miscellaneous Notes* Telephone Encounter - Dayana Tellezubbs - 12/18/2022 5:22 PM EDT Name of caller: Felicita Contact phone number: [phone] Relationship to Patient: [facility] Insurance Provider: Dr. Nickerson Practice: [facility] Cardiothoracic Surgery Chief Complaint/Reason for Call: Felicita states they need authorization for his surgery on 12/20/24. Please advise. Best time of day caller can be reached: any Patient advised that office/PCP has 24-48 business hours to return their call: N/A documented in this encounterSProMedica Toledo [id number] [facility]: Cardiothoracic Surgery H&P PATIENT NAME: Jesus Alberto Guevara Jr. : 1940 (82 y.o.) TODAY'S DATE: 12/18/2022 DATE OF ADMISSION: 12/18/2022 1:16 PM Reason - CAD Consulting Provider: Dr. 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 Today he was transferred from [facility] due to a positive stress testing with inferior WMA, EKG changes t-wave inversions in the inferior leads. 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 His EF was 75% on LV gram and during the stress test was measured at 65% - Normal LVEDP. He does have CKD baseline creat of 1.42. Other labs are unremarkable. He did not get loaded with P2Y12 therapy at [facility], he is on BB, asa, statin and has a PMH of stenting 10 years ago, HTN, HLD. Did have a TIA after quitting ASA at one time. He is a poor informant and is a former pipe-smoker and occasionally uses ETOH. 12/17/[address] [facility] [address]. Khan LAD 80% lesion CX 80% [...] ear normal. Nose: Nose normal. Mouth/Throat: Lips: [place]. Dentition: Normal dentition. Tongue: No lesions. Tongue [...] for input(s): WBC, H (more content not included)...[facility] [id number] Evaluation note* Diagnosis Onset Date Resolution Status History of coronary artery stent placement February 06, 2013 chronic Hyperlipidemia chronic [facility] Work Phone: evaluation note* Diagnosis Onset Date Resolution Status Encounter for screening for COVID-19 acute COVID-19 acute [facility] Work Phone: evaluation noteNo assessment information available [facility] Work Phone: evaluation note* Diagnosis Onset Date Resolution Status Acute upper respiratory infection acute Contact with or suspected ex posure to other viral communicable disease acute [facility] Work Phone: Evaluation note* Diagnosis CAD in [place] artery- Primary CAD in [place] artery S/P CABG (coronary artery bypass graft) Postsurgical aortocoronary bypass status documented in this encounter [facility] Progression LabsEvaluation note* Diagnosis S/P CABG (coronary artery bypass graft)- Primary Postsurgical aortocoronary bypass status documented in this encounter [facility] Progression LabsEvaluation note* Diagnosis S/P CABG (coronary artery bypass graft)- Primary Postsurgical aortocoronary bypass status documented in this encounter [facility] Progression LabsEvaluation note* Diagnosis Onset Date Resolution Status Abnormal stress test acute Coronary artery disease acut e Elevated blood pressure reading acute Hyperlipidemia acute Chest pain resolved Hyperlipidemia acute Postoperative atrial fibrillation acute S/P CABG x 4 December 20, 2022 [facility] Work Phone: Evaluation note* Diagnosis Onset Date Resolution Status Acute cervical myofascial strain acute Closed head injury acute Fall acute Inability to ambulate due to multiple joints [facility] Work Phone: Instructions* Name Dates Details Patient Instructions Indication:Nonsmoker Start:04-May-2021 Instruction Type:Provider Instructions for Treatment How to Access Health Informa tion Online using Patient Portal and [employer] Indication:Nonsmoker Start:04-May-2021 Instruction Type:Patient Education Patient Instructions Indication:Nonsmoker Start:14-Apr-2021 Instruction Type:Provider Instructions for Treatment How to Access Health Informa tion Online using Patient Portal and [employer] Apps Indication:Nonsmoker Start:14-Apr-2021 Instruction Type:Patient Education How to Access Health Informa tion Online using Patient Portal and [employer] Apps Indication:Nonsmoker Start:20-Oct-2020 Instruction Type:Patient Education Patient Instructions Indication:Nonsmoker Start:20-Oct-2020 Instruction Type:Provider Instructions for Treatment Patient Instructions Indication:BMI 30.0-30.9,adult Start:12-Oct-2020 Instruction Type:Provider Instructions for Treatment How to Access Health Informa tion Online using Patient Portal and [employer] Apps Indication:BMI 30.0-30.9,adult Start:12-Oct-2020 Instruction Type:Patient Education [...] tion Online using Patient Portal and [employer]rd [employer] Apps Indication:BMI 30.0-30.9,adult Start:26-Oct-2021 Instruction Type:Patient Education Patient Instructions Indication:BMI 30.0-30.9,adult Start:29-Aug-2021 Instruction Type:Provider Instructions for Treatment How to Access Health Informa tion Online using Patient Portal and [employer]rd [employer] Apps Indication:BMI 30.0-30.9,adult Start:29-Aug-2021 Instruction Type:Patient Education Patient Instructions Indication:Nonsmoker Start:04-May-2021 Instruction Type:Provider Instructions for Treatment How to Access Health Informa tion Online using Patient Portal and [employer]rd [employer] Apps Indication:Nonsmoker Start:04-May-2021 Instruction Type:Patient Education Patient Instructions Indication:Nonsmoker Start:14-Apr-2021 Instruction Type:Provider Instructions for Treatment How to Access Health Informa tion Online using Patient Portal and [employer]rd [employer] Apps Indication:Nonsmoker Start:14-Apr-2021 Instruction Type:Patient Education How to Access Health Informa tion Online using Patient Portal and [employer]rd [employer] Apps Indication:Nonsmoker Start:20-Oct-2020 Instruction Type:Patient Education Patient Instructions Indication:Nonsmoker Start:20-Oct-2020 Instruction Type:Provider Instructions for Treatment Patient Instructions Indication:BMI 30.0-30.9,adult Start:12-Oct-2020 Instruction Type:Provider Instructions for Treatment How to Access Health Informa tion Online using Patient Portal and 3rd [employer] Apps Indication:BMI 30.0-30.9,adult Start:12-Oct-2020 Instruction Type:Patient Education [...] tion Online using Patient Portal and [employer]rd [employer] Apps Indication:BMI 30.0-30.9,adult Start:26-Oct-2021 Instruction Type:Patient Education Patient Instructions Indication:BMI 30.0-30.9,adult Start:29-Aug-2021 Instruction Type:Provider Instructions for Treatment How to Access Health Informa tion Online using Patient Portal and 3rd [employer] Apps Indication:BMI 30.0-30.9,adult Start:29-Aug-2021 Instruction Type:Patient Education Patient Instructions Indication:Nonsmoker Start:04-May-2021 Instruction Type:Provider Instructions for Treatment How to Access Health Informa tion Online using Patient Portal and [employer]rd [employer] Apps Indication:Nonsmoker Start:04-May-2021 Instruction Type:Patient Education Patient Instructions Indication:Nonsmoker Start:14-Apr-2021 Instruction Type:Provider Instructions for Treatment How to Access Health Informa tion Online using Patient Portal and [employer]rd [employer] Apps Indication:Nonsmoker Start:14-Apr-2021 Instruction Type:Patient Education How to Access Health Informa tion Online using Patient Portal and [employer]rd [employer] Apps Indication:Nonsmoker Start:20-Oct-2020 Instruction Type:Patient Education Patient Instructions Indication:Nonsmoker Start:20-Oct-2020 Instruction Type:Provider Instructions for Treatment Patient Instructions Indication:BMI 30.0-30.9,adult Start:12-Oct-2020 Instruction Type:Provider Instructions for Treatment How to Access Health Informa tion Online using Patient Portal and 3rd [employer] Apps Indication:BMI 30.0-30.9,adult Start:12-Oct-2020 Instruction Type:Patient Education [...] tion Online using Patient Portal and 3rd [employer] Apps Indication:BMI 30.0-30.9,adult Start:26-Oct-2021 Instruction Type:Patient Education Patient Instructions Indication:BMI 30.0-30.9,adult Start:29-Aug-2021 Instruction Type:Provider Instructions for Treatment How to Access Health Informa tion Online using Patient Portal and [employer] Apps Indication:BMI 30.0-30.9,adult Start:29-Aug-2021 Instruction Type:Patient Education Patient Instructions Indication:Nonsmoker Start:04-May-2021 Instruction Type:Provider Instructions for Treatment How to Access Health Informa tion Online using Patient Portal and [employer]rd [employer] Apps Indication:Nonsmoker Start:04-May-2021 Instruction Type:Patient Education Patient Instructions Indication:Nonsmoker Start:14-Apr-2021 Instruction Type:Provider Instructions for Treatment How to Access Health Informa tion Online using Patient Portal and [employer] Apps Indication:Nonsmoker Start:14-Apr-2021 Instruction Type:Patient Education How to Access Health Informa tion Online using Patient Portal and [employer]rd [employer] Apps Indication:Nonsmoker Start:20-Oct-2020 Instruction Type:Patient Education Patient Instructions Indication:Nonsmoker Start:20-Oct-2020 Instruction Type:Provider Instructions for Treatment Patient Instructions Indication:BMI 30.0-30.9,adult Start:12-Oct-2020 Instruction Type:Provider Instructions for Treatment How to Access Health Informa tion Online using Patient Portal and [employer]rd [employer] Apps Indication:BMI 30.0-30.9,adult Start:12-Oct-2020 Instruction Type:Patient Education [...] tion Online using Patient Portal and [employer]rd [employer] Apps Indication:Nonsmoker Start:31-Jan-2022 Instruction Type:Patient Education Patient Instructions Indication:BMI 30.0-30.9,adult Start:26-Oct-2021 Instruction Type:Provider Instructions for Treatment How to Access Health Informa tion Online using Patient Portal and [employer]rd [employer] Apps Indication:BMI 30.0-30.9,adult Start:26-Oct-2021 Instruction Type:Patient Education Patient Instructions Indication:BMI 30.0-30.9,adult Start:29-Aug-2021 Instruction Type:Provider Instructions for Treatment How to Access Health Informa tion Online using Patient Portal and [employer]rd [employer] Apps Indication:BMI 30.0-30.9,adult Start:29-Aug-2021 Instruction Type:Patient Education Patient Instructions Indication:Nonsmoker Start:04-May-2021 Instruction Type:Provider Instructions for Treatment How to Access Health Informa tion Online using Patient Portal and [employer]rd [employer] Apps Indication:Nonsmoker Start:04-May-2021 Instruction Type:Patient Education Patient Instructions Indication:Nonsmoker Start:14-Apr-2021 Instruction Type:Provider Instructions for Treatment How to Access Health Informa tion Online using Patient Portal and [employer]rd [employer] Apps Indication:Nonsmoker Start:14-Apr-2021 Instruction Type:Patient Education How to Access Health Informa tion Online using Patient Portal and [employer]rd [employer] Apps Indication:Nonsmoker Start:20-Oct-2020 Instruction Type:Patient Education Patient Instructions Indication:Nonsmoker Start:20-Oct-2020 Instruction Type:Provider Instructions for Treatment Patient Instructions Indication:BMI 30.0-30.9,adult Start:12-Oct-2020 Instruction Type:Provider Instructions for Treatment How to Access Health Informa tion Online using Patient Portal and [employer]rd [employer] Apps Indication:BMI 30.0-30.9,adult Start:12-Oct-2020 Instruction Type:Patient Education [...] tion Online using Patient Portal and [employer]rd [employer] Apps Indication:Nonsmoker Start:31-Jan-2022 Instruction Type:Patient Education Patient Instructions Indication:BMI 30.0-30.9,adult Start:26-Oct-2021 Instruction Type:Provider Instructions for Treatment How to Access Health Informa tion Online using Patient Portal and [employer]rd [employer] Apps Indication:BMI 30.0-30.9,adult Start:26-Oct-2021 Instruction Type:Patient Education Patient Instructions Indication:BMI 30.0-30.9,adult Start:29-Aug-2021 Instruction Type:Provider Instructions for Treatment How to Access Health Informa tion Online using Patient Portal and [employer]rd [employer] Apps Indication:BMI 30.0-30.9,adult Start:29-Aug-2021 Instruction Type:Patient Education Patient Instructions Indication:Nonsmoker Start:04-May-2021 Instruction Type:Provider Instructions for Treatment How to Access Health Informa tion Online using Patient Portal and [employer] Apps Indication:Nonsmoker Start:04-May-2021 Instruction Type:Patient Education Patient Instructions Indication:Nonsmoker Start:14-Apr-2021 Instruction Type:Provider Instructions for Treatment How to Access Health Informa tion Online using Patient Portal and [employer]rd [employer] Apps Indication:Nonsmoker Start:14-Apr-2021 Instruction Type:Patient Education How to Access Health Informa tion Online using Patient Portal and [employer] Apps Indication:Nonsmoker Start:20-Oct-2020 Instruction Type:Patient Education Patient Instructions Indication:Nonsmoker Start:20-Oct-2020 Instruction Type:Provider Instructions for Treatment Patient Instructions Indication:BMI 30.0-30.9,adult Start:12-Oct-2020 Instruction Type:Provider Instructions for Treatment How to Access Health Informa tion Online using Patient Portal and [employer]rd [employer] Apps Indication:BMI 30.0-30.9,adult Start:12-Oct-2020 Instruction Type:Patient Education [...] tion Online using Patient Portal and [employer]rd [employer] Apps Indication:Nonsmoker Start:31-Jan-2022 Instruction Type:Patient Education Patient Instructions Indication:BMI 30.0-30.9,adult Start:26-Oct-2021 Instruction Type:Provider Instructions for Treatment How to Access Health Informa tion Online using Patient Portal and [employer] Apps Indication:BMI 30.0-30.9,adult Start:26-Oct-2021 Instruction Type:Patient Education Patient Instructions Indication:BMI 30.0-30.9,adult Start:29-Aug-2021 Instruction Type:Provider Instructions for Treatment How to Access Health Informa tion Online using Patient Portal and [employer]rd [employer] Apps Indication:BMI 30.0-30.9,adult Start:29-Aug-2021 Instruction Type:Patient Education Patient Instructions Indication:Nonsmoker Start:04-May-2021 Instruction Type:Provider Instructions for Treatment How to Access Health Informa tion Online using Patient Portal and [employer]rd [employer] Apps Indication:Nonsmoker Start:04-May-2021 Instruction Type:Patient Education Patient Instructions Indication:Nonsmoker Start:14-Apr-2021 Instruction Type:Provider Instructions for Treatment How to Access Health Informa tion Online using Patient Portal and [employer]rd [employer] Apps Indication:Nonsmoker Start:14-Apr-2021 Instruction Type:Patient Education How to Access Health Informa tion Online using Patient Portal and [employer]rd [employer] Apps Indication:Nonsmoker Start:20-Oct-2020 Instruction Type:Patient Education Patient Instructions Indication:Nonsmoker Start:20-Oct-2020 Instruction Type:Provider Instructions for Treatment Patient Instructions Indication:BMI 30.0-30.9,adult Start:12-Oct-2020 Instruction Type:Provider Instructions for Treatment How to Access Health Informa tion Online using Patient Portal and [employer]rd [employer] Apps Indication:BMI 30.0-30.9,adult Start:12-Oct-2020 Instruction Type:Patient Education [...] Informa tion Online using Patient Portal and [employer] Apps Indication:Nonsmoker Start:03-May-2022 Instruction Type:Patient Education Patient Instructions Indication:Nonsmoker Start:03-May-2022 Instruction Type:Provider Instructions for Treatment Patient Instructions Indication:Nonsmoker Start:31-Jan-2022 Instruction Type:Provider Instructions for Treatment How to Access Health Informa tion Online using Patient Portal and [employer]rd [employer] Apps Indication:Nonsmoker Start:31-Jan-2022 Instruction Type:Patient Education Patient Instructions Indication:BMI 30.0-30.9,adult Start:26-Oct-2021 Instruction Type:Provider Instructions for Treatment How to Access Health Informa tion Online using Patient Portal and [employer]rd [employer] Apps Indication:BMI 30.0-30.9,adult Start:26-Oct-2021 Instruction Type:Patient Education Patient Instructions Indication:BMI 30.0-30.9,adult Start:29-Aug-2021 Instruction Type:Provider Instructions for Treatment How to Access Health Informa tion Online using Patient Portal and [employer]rd [employer] Apps Indication:BMI 30.0-30.9,adult Start:29-Aug-2021 Instruction Type:Patient Education Patient Instructions Indication:Nonsmoker Start:04-May-2021 Instruction Type:Provider Instructions for Treatment How to Access Health Informa tion Online using Patient Portal and [employer]rd [employer] Apps Indication:Nonsmoker Start:04-May-2021 Instruction Type:Patient Education Patient Instructions Indication:Nonsmoker Start:14-Apr-2021 Instruction Type:Provider Instructions for Treatment How to Access Health Informa tion Online using Patient Portal and [employer]rd [employer] Apps Indication:Nonsmoker Start:14-Apr-2021 Instruction Type:Patient Education How to Access Health Informa tion Online using Patient Portal and [employer] Apps Indication:Nonsmoker Start:20-Oct-2020 Instruction Type:Patient Education Patient Instructions Indication:Nonsmoker Start:20-Oct-2020 Instruction Type:Provider Instructions for Treatment Patient Instructions Indication:BMI 30.0-30.9,adult Start:12-Oct-2020 Instruction Type:Provider Instructions for Treatment How to Access Health Informa tion Online using Patient Portal and [employer]rd [employer] Apps Indication:BMI 30.0-30.9,adult Start:12-Oct-2020 Instruction Type:Patient Education [...] Informa tion Online using Patient Portal and [employer] Apps Indication:Nonsmoker Start:03-May-2022 Instruction Type:Patient Education Patient Instructions Indication:Nonsmoker Start:03-May-2022 Instruction Type:Provider Instructions for Treatment Patient Instructions Indication:Nonsmoker Start:31-Jan-2022 Instruction Type:Provider Instructions for Treatment How to Access Health Informa tion Online using Patient Portal and [employer] Apps Indication:Nonsmoker Start:31-Jan-2022 Instruction Type:Patient Education Patient Instructions Indication:BMI 30.0-30.9,adult Start:26-Oct-2021 Instruction Type:Provider Instructions for Treatment How to Access Health Informa tion Online using Patient Portal and [employer] Apps Indication:BMI 30.0-30.9,adult Start:26-Oct-2021 Instruction Type:Patient Education Patient Instructions Indication:BMI 30.0-30.9,adult Start:29-Aug-2021 Instruction Type:Provider Instructions for Treatment How to Access Health Informa tion Online using Patient Portal and [employer]rd [employer] Apps Indication:BMI 30.0-30.9,adult Start:29-Aug-2021 Instruction Type:Patient Education Patient Instructions Indication:Nonsmoker Start:04-May-2021 Instruction Type:Provider Instructions for Treatment How to Access Health Informa tion Online using Patient Portal and [employer]rd [employer] Apps Indication:Nonsmoker Start:04-May-2021 Instruction Type:Patient Education Patient Instructions Indication:Nonsmoker Start:14-Apr-2021 Instruction Type:Provider Instructions for Treatment How to Access Health Informa tion Online using Patient Portal and [employer] Apps Indication:Nonsmoker Start:14-Apr-2021 Instruction Type:Patient Education How to Access Health Informa tion Online using Patient Portal and [employer]rd [employer] Apps Indication:Nonsmoker Start:20-Oct-2020 Instruction Type:Patient Education Patient Instructions Indication:Nonsmoker Start:20-Oct-2020 Instruction Type:Provider Instructions for Treatment Patient Instructions Indication:BMI 30.0-30.9,adult Start:12-Oct-2020 Instruction Type:Provider Instructions for Treatment How to Access Health Informa tion Online using Patient Portal and [employer]rd [employer] Apps Indication:BMI 30.0-30.9,adult Start:12-Oct-2020 Instruction Type:Patient Education [...] Informa tion Online using Patient Portal and [employer] Apps Indication:Nonsmoker Start:03-May-2022 Instruction Type:Patient Education Patient Instructions Indication:Nonsmoker Start:03-May-2022 Instruction Type:Provider Instructions for Treatment Patient Instructions Indication:Nonsmoker Start:31-Jan-2022 Instruction Type:Provider Instructions for Treatment How to Access Health Informa tion Online using Patient Portal and [employer] Apps Indication:Nonsmoker Start:31-Jan-2022 Instruction Type:Patient Education Patient Instructions Indication:BMI 30.0-30.9,adult Start:26-Oct-2021 Instruction Type:Provider Instructions for Treatment How to Access Health Informa tion Online using Patient Portal and [employer]rd [employer] Apps Indication:BMI 30.0-30.9,adult Start:26-Oct-2021 Instruction Type:Patient Education Patient Instructions Indication:BMI 30.0-30.9,adult Start:29-Aug-2021 Instruction Type:Provider Instructions for Treatment How to Access Health Informa tion Online using Patient Portal and [employer]rd [employer] Apps Indication:BMI 30.0-30.9,adult Start:29-Aug-2021 Instruction Type:Patient Education Patient Instructions Indication:Nonsmoker Start:04-May-2021 Instruction Type:Provider Instructions for Treatment How to Access Health Informa tion Online using Patient Portal and [employer]rd [employer] Apps Indication:Nonsmoker Start:04-May-2021 Instruction Type:Patient Education Patient Instructions Indication:Nonsmoker Start:14-Apr-2021 Instruction Type:Provider Instructions for Treatment How to Access Health Informa tion Online using Patient Portal and [employer] Apps Indication:Nonsmoker Start:14-Apr-2021 Instruction Type:Patient Education How to Access Health Informa tion Online using Patient Portal and [employer]rd [employer] Apps Indication:Nonsmoker Start:20-Oct-2020 Instruction Type:Patient Education Patient Instructions Indication:Nonsmoker Start:20-Oct-2020 Instruction Type:Provider Instructions for Treatment Patient Instructions Indication:BMI 30.0-30.9,adult Start:12-Oct-2020 Instruction Type:Provider Instructions for Treatment How to Access Health Informa tion Online using Patient Portal and [employer]rd [employer] Apps Indication:BMI 30.0-30.9,adult Start:12-Oct-2020 Instruction Type:Patient Education [...] tion Online using Patient Portal and [employer]rd [employer] Apps Indication:GERD (gastroesophageal reflux disease) Start:22-Mar-2023 Instruction Type:Patient Education How to Access Health Informa tion Online using Patient Portal and [employer] Apps Indication:Nonsmoker Start:03-May-2022 Instruction Type:Patient Education Patient Instructions Indication:Nonsmoker Start:03-May-2022 Instruction Type:Provider Instructions for Treatment Patient Instructions Indication:Nonsmoker Start:31-Jan-2022 Instruction Type:Provider Instructions for Treatment How to Access Health Informa tion Online using Patient Portal and [employer]rd [employer] Apps Indication:Nonsmoker Start:31-Jan-2022 Instruction Type:Patient Education Patient Instructions Indication:BMI 30.0-30.9,adult Start:26-Oct-2021 Instruction Type:Provider Instructions for Treatment How to Access Health Informa tion Online using Patient Portal and [employer]rd [employer] Apps Indication:BMI 30.0-30.9,adult Start:26-Oct-2021 Instruction Type:Patient Education Patient Instructions Indication:BMI 30.0-30.9,adult Start:29-Aug-2021 Instruction Type:Provider Instructions for Treatment How to Access Health Informa tion Online using Patient Portal and [employer]rd [employer] Apps Indication:BMI 30.0-30.9,adult Start:29-Aug-2021 Instruction Type:Patient Education Patient Instructions Indication:Nonsmoker Start:04-May-2021 Instruction Type:Provider Instructions for Treatment How to Access Health Informa tion Online using Patient Portal and [employer] Apps Indication:Nonsmoker Start:04-May-2021 Instruction Type:Patient Education Patient Instructions Indication:Nonsmoker Start:14-Apr-2021 Instruction Type:Provider Instructions for Treatment How to Access Health Informa tion Online using Patient Portal and [employer] Apps Indication:Nonsmoker Start:14-Apr-2021 Instruction Type:Patient Education How to Access Health Informa tion Online using Patient Portal and [employer] Apps Indication:Nonsmoker Start:20-Oct-2020 Instruction Type:Patient Education Patient Instructions Indication:Nonsmoker Start:20-Oct-2020 Instruction Type:Provider Instructions for Treatment Patient Instructions Indication:BMI 30.0-30.9,adult Start:12-Oct-2020 Instruction Type:Provider Instructions for Treatment How to Access Health Informa tion Online using Patient Portal and [employer] Apps Indication:BMI 30.0-30.9,adult Start:12-Oct-2020 Instruction Type:Patient Education [...] tion Online using Patient Portal and [employer] Apps Indication:GERD (gastroesophageal reflux disease) Start:22-Mar-2023 Instruction Type:Patient Education How to Access Health Informa tion Online using Patient Portal and [employer] Apps Indication:Nonsmoker Start:03-May-2022 Instruction Type:Patient Education Patient Instructions Indication:Nonsmoker Start:03-May-2022 Instruction Type:Provider Instructions for Treatment Patient Instructions Indication:Nonsmoker Start:31-Jan-2022 Instruction Type:Provider Instructions for Treatment How to Access Health Informa tion Online using Patient Portal and [employer] Apps Indication:Nonsmoker Start:31-Jan-2022 Instruction Type:Patient Education Patient Instructions Indication:BMI 30.0-30.9,adult Start:26-Oct-2021 Instruction Type:Provider Instructions for Treatment How to Access Health Informa tion Online using Patient Portal and [employer] Apps Indication:BMI 30.0-30.9,adult Start:26-Oct-2021 Instruction Type:Patient Education Patient Instructions Indication:BMI 30.0-30.9,adult Start:29-Aug-2021 Instruction Type:Provider Instructions for Treatment How to Access Health Informa tion Online using Patient Portal and [employer] Apps Indication:BMI 30.0-30.9,adult Start:29-Aug-2021 Instruction Type:Patient Education Patient Instructions Indication:Nonsmoker Start:04-May-2021 Instruction Type:Provider Instructions for Treatment How to Access Health Informa tion Online using Patient Portal and [employer] Apps Indication:Nonsmoker Start:04-May-2021 Instruction Type:Patient Education Patient Instructions Indication:Nonsmoker Start:14-Apr-2021 Instruction Type:Provider Instructions for Treatment How to Access Health Informa tion Online using Patient Portal and [employer] Apps Indication:Nonsmoker Start:14-Apr-2021 Instruction Type:Patient Education How to Access Health Informa tion Online using Patient Portal and [employer] Apps Indication:Nonsmoker Start:20-Oct-2020 Instruction Type:Patient Education Patient Instructions Indication:Nonsmoker Start:20-Oct-2020 Instruction Type:Provider Instructions for Treatment Patient Instructions Indication:BMI 30.0-30.9,adult Start:12-Oct-2020 Instruction Type:Provider Instructions for Treatment How to Access Health Informa tion Online using Patient Portal and [employer] Apps Indication:BMI 30.0-30.9,adult Start:12-Oct-2020 Instruction Type:Patient Education [...] Review Specialty Diagnoses / Procedures Referred By Contac t Referred To Contact Cardiology Diagnoses S/P CABG (coronary artery bypass graft) Procedures [facility]PAT[facility] 60-74 MINUTES Phillip Jo APRN - CNP [address] [address] Referral ID Status Reason Start Date Expiration Date Visits Requested Visits Authorized [id number] Pending Review Specialty Services Required 01/02/2023 01[facility]02[facility]2024 [facility]No reason for referral information availableWW[facility]: Instructions Name Dates Details Obesity (BMI 30.0-34.9) : Hari w to access health information online Indication:Obesity (BMI 30.0-34.9) Obesity (BMI 30.0-34.9) : Pa tient Instructions Indication:Obesity (BMI 30.0-34.9) Nonsmoker : How [...] Instruct ions Indication:Nonsmoker Obesity (BMI 30.0-34.9) : Hari w to access health information online Indication:Obesity (BMI 30.0-34.9) Obesity (BMI 30.0-34.9) : Pa tient Instructions Indication:Obesity (BMI 30.0-34.9) Encounter for Medicare [...] Name Dates Details Obesity (BMI 30.0-34.9) : Ho w to access health information online Indication:Obesity (BMI 30.0-34.9) Obesity (BMI 30.0-34.9) : Pa tient Instructions Indication:Obesity (BMI 30.0-34.9) Nonsmoker : How [...] Informa tion Online using Patient Portal and [employer] Apps Indication:Nonsmoker Start:20-Oct-2020 Instruction Type:Patient Education Patient Instructions Indication:Nonsmoker Start:20-Oct-2020 Instruction Type:Provider Instructions for Treatment Patient Instructions Indication:BMI 30.0-30.9,adult Start:12-Oct-2020 Instruction Type:Provider Instructions for Treatment How to Access Health Informa tion Online using Patient Portal and [employer] Apps Indication:BMI 30.0-30.9,adult Start:12-Oct-2020 Instruction Type:Patient Education [...] Recorded Date/ Time Living Will Yes April 28 9 11:32am Power of Local [employer] Yes April 28 019 11:32am Advance Directive Response Recorded Date/ Time Living Will No January 29, 2022 8 :27am Power of Local [employer] Driver No January 29, 2022 8:27am Advance Directive Response Recorded Date/ Time Living Will No January 29, 2022 7 :27am Power of Local [employer] Driver No January 29, 2022 7:27am Latest Code Status on File Code Status Date Activated Date Inactivated Comments Full Code 12/18/2022 1:40 PM 12/25/2022 4:20 PM Latest Code Status on File Code Status Date Activated Date Inactivated Comments Full Code 12/18/2022 1:40 PM 12/25/2022 4:20 PM Advance Directive Response Recorded Date/ Time Name of Medical Power of Local Intermodal Truck Driver December 17, 2022 3:10am Advance Directives on File Yes January 21, 2023 2:59pm Living Will Yes January 21, 2023 2:59pm Power of Local Intermodal Truck Driver Yes January 21 2:59pm Advance Directive Response Recorded Date/ Time Living Will Yes January 21, 2023 1:59pm Power of Local [employer]modal Truck Driver Yes January 21 1:59pm Advance Directive Response Recorded Date/ Time Name of Medical Power of Local Intermodal Truck Driver Ruth Guevara December 03, 2023 2:08pm Living Will Yes December 03, 2023 2: 08pm Power of Local Intermodal Truck Driver Yes December 03, 2023 2:08pm Advance Directive Response Recorded Date/ Time Name of Medical Power of Local Intermodal Truck Driver Ruth Guevara December 03, 2023 8:44pm Living Will Yes December 03, 2023 8: 44pm Power of Local Intermodal Truck Driver Yes December 03, 2023 8:44pm Advance Directive Response Recorded Date/ Time Living Will Yes December 03, 2023 8: 44pm Power of Local Intermodal Truck Driver Yes December 03, 2023 8:44pm Chief Complaint [...] 25, 2024 9 :08am Postoperative atrial fibrillation 2024 9:08am S/P CABG x 4 August 25, 2024 9 :08am Acute upper respiratory infection Februa 2024 11:47am Chief Complaint Admit Date CONCERN FOR PNEUMONIA September 25 11:47am cough September 25, 2024 12:43pm TICK BITE/CONCERN FOR INFECTION December 8:51am Reason for Visit Admit Date Acute upper respiratory infection 2024 11:47am Erythema migrans (Lyme disease) December 8:51am Chief Complaint Admit Date CONCERN FOR PNEUMONIA September 25 11:47am cough September 25, 2024 12:43pm TICK BITE/CONCERN FOR INFECTION December 8:51am 4 M FU January 20, 2025 9:13 am Reason for Visit Admit Date Acute upper respiratory infection 2024 11:47am Erythema migrans (Lyme disease) December [...] DATE CREATED AUTHOR AUTHOR'S ORGANIZ ATION 12/23/2022 [facility] DATE CREATED AUTHOR AUTHOR'S ORGANIZ ATION 02/17/2025 [facility] Goals (unrecognized section and content) Goals [...] Role Status Dates Dr. Jazlyn Zayas DO Family Provider Active Dr. Jazlyn Zayas DO Primary Care Provider Active Team Status: [...] Lester MD Attending Provider, Referring Provider Active Supervisor Sewer Maintenance Relationship Specialty Start Date End Date Jazlyn Zayas DO [address] [place] [phone] PCP - General Internal Medicine 12/18/22 Supervisor Sewer Maintenance Relationship Specialty Start Date End Date Jazlyn Zayas DO [address] [place] [phone] PCP - General Internal Medicine 12/18/22 Supervisor Sewer Maintenance Relationship Specialty Start Date End Date Jazlyn Zayas DO [address] [place] [phone] PCP - General Internal Medicine 12/18/22 Supervisor Sewer Maintenance Relationship Specialty Start Date End Date Jazlyn Zayas DO [address] [place] [phone] PCP - General Internal Medicine 12/18/22 Supervisor Sewer Maintenance Relationship Specialty Start Date End Date Jazlyn Zayas DO [address] [place] [phone] PCP - General Internal Medicine 12/18/22 Team Status: Active Member Role Status Dates Dr. Jazlyn Zayas , DO Primary Care Provider Active Dr. Osvaldo [...] , DO Primary Care Provider Active Dr. Osvaldo Bolaños MD Emergency Provider Active Dr. Sarah Hsu MD Admit Provider, Other Provider Active Dr. Coleman Khan , DO Attending Provider Active Dr. Ronnie Khan MD Other Provider Active Team Status: Inactive Member Role Status Dates Dr. Jazlyn Zayas , DO Primary Care Provider Active Dr. Ronnie Khan MD Attending Provider, Referring Pro vider Active Supervisor Sewer Maintenance Relationship Specialty Start Date End Date Jose Manuel, Jazlyn Allen [address] [facility] [address] [place] [phone] PCP - General Internal Medicine 12/18/22 Team [...] , DO Emergency Provider Active Dr. Linda eLal MD Admit Provider, Other Provider Active Dr. [...] 20, 2024 End: July 20, 2024 Clinton M Wyles PA, PA Attending Provider Active Start: July 20, 2024 End: July 20, 2024 Team Status: Inactive Member Role Status Dates Dr. Jazlyn Zayas DO Primary Care Provider Active Start: August 25, 2024 End: August 25, 2024 Dr. Jazlyn Zayas DO Referring Provider Active Start: August 25, 2024 End: August 25, 2024 Liliana DC, PA Attending Provider Active Start: August 25, 2024 End: August 25, 2024 Team Status: Inactive Member Role Status Dates Dr. Jazlyn Zayas DO Primary Care Provider Active Start: August 25, 2024 End: August 25, 2024 Liliana DC, PA Attending Provider Active Start: August 25, 2024 End: August 25, 2024 Liliana Henry PA, PA Referring Provider Active Start: August 25, 2024 End: August 25, 2024 Team Status: Inactive Member Role Status Dates Dr. Jazlyn Zayas DO Primary Care Provider Active Start: September 25, 2024 End: September 25, 2024 Dr. Jazlyn aZyas DO Referring Provider Active Start: September 25, 2024 End: September 25, 2024 Mau DC PA Attending Provider Active Sta rt: September 25, 2024 End: September 25, 2024 Team Status: Inactive Member Role Status Dates Dr. Jazlyn Zayas DO Primary Care Provider Active Start: September 25, 2024 End: September 25, 2024 Mau DC, PA Attending Provider Active Sta rt: September 25, 2024 End: September 25, 2024 Mau DC PA Referring Provider Active Sta rt: September 25, [...] content) Specialty Diagnoses / Procedures Referred By Diomedes t Referred To Contact Diagnoses CAD in [place] artery Procedures I25.10 Consuelo Bonner DO [address] [facility] [address] [place] [address] [facility] [address] [place] [phone] Referral ID Status Reason Start Date Expiration Date Visits Re quested Visits Authorized [id number] 1 Reason Comments Post-op Reason Onset Date Comments page 12/30/2022 Reason Comments Post-op Reason Onset Date Comments Prior Authorization 12/18/2022 Scheduled Active and Recently Administ ered Medications (unrecognized section and content) Medication Order 12/23/2022 12/24/2022 12/25/2022 amiodarone (Pacerone) tablet 400 mg 400 mg, Oral, 2 times daily, First dose on Sat12/24/22 at 0900, For 14 days 0836 (Given - Provider: Eugenia Ly RN)2141 (Given - Provider: Alec Bentley RN) 0854 (Given - Provider: Hanna Pak, ERIKA) aspirin EC tablet 81 mg 81 mg, Oral, Daily, First dose on Sat12/19/22 at 0900, Do not crush, chew, or split. 0900 (Not Given - Provider: Al Irwin RN - Reason: NPO)1207 (Given - Provider: Al Irwin RN) 0836 (Given - Provider: Eugenia Ly RN) 0854 (Given - Provider: Hanna Pak, ERIKA) bisacodyl (Dulcolax) suppository 10 mg 10 mg, Rectal, 2 times daily, First dose on Sat12/23/22 at 0900 0900 (Given - Provider: Al Irwin RN)2100 (Given - Provider: Vivien Orozco RN) 0900 (Not Given - Provider: Eugenia Ly RN - Reason: Patient/family refused - Comment: Patient with large BM)2099 (Not Given - Provider: Alec Bentley RN - Reason: Patient/family refused) 09 (Not Given - Provider: Hanna Pak RN - Reason: Patient/family refused) chlorhexidine (Peridex) 0.12 % solution 15 mL (CANCELED) 15 mL, Mouth/Throat, 2 times daily, First dose on Paulette 12/20/22 at 1330, For 7 days, Phase II/On Unit, Rinse and spit. Do not swallow. 0937 (Given - Provider: Al Irwin RN)2010 (Given - Provider: Vivien Orozco RN) furosemide (Lasix) injection 20 mg (CANCELED) 20 mg, IntraVENous, 2 times daily, First dose on 12/22/22 at 0900 0938 (Given - Provider: Al Irwin RN)2010 (Given - Provider: Vivien Orozco RN) 08 (Given - Provider: Eugenia Ly RN)2139 (Given - Provider: Alec Bentley RN) heparin injection 5,000 Units 5,000 Units, SubCUTAneous, Every 12 hours scheduled (2 times per day), First dose on Sat12/21/22 at 0915 0938 (Given - Provider: Al Irwin RN)2010 (Given - Provider: Vivien Orozco RN) 0836 (Given - Provider: Eugenia Ly, ERIKA)2140 (Given - Provider: Alec Bentley RN) 0855 (Given - Provider: Hanna Pak RN) Lidocaine 4 % patch 1 patch 1 [...] Eugenia Ly RN - Reason: Patient/family refused) 09 (Not Given - Provider: Hanna Pak RN [...] than 65 and/or HR less than 60 0900 (Not Given - Provider: Al Irwin RN - Reason: NPO)2012 (Given - Provider: Vivien Orozco RN) 0836 (Given - Provider: Eugenia Ly RN)2140 (Given - Provider: Alec Bentley, ERIKA) 0854 [...] Oral, Daily before breakfast, First dose on 12/22/22 at 0700, Do not crush, chew, or [...] 40 mg, Oral, Daily, First dose on 12/19/22 at 0900 0900 (Not Given - Provider: Al Irwin RN - Reason: NPO)1410 (Given - Provider: Al Irwin RN) 0836 (Given - Provider: Eugenia Ly, ERIKA) 0854 (Given - Provider: Hanna Pak [...] bag 0621 (New Bag - Provider: Alec Bentley RN)0721 (Stopped - Provider: Alec Bentley RN) [...] BE BASED ON THE PRIMARY CLINICAL RECORDS. [employer] [facility]. provides no warranty or guarantee of the accuracy or completeness of information in this document.
[2025-02-22 13:08] LABS: Vitamin D 1,25-Dihydroxy 56.9 pg/mL (24.8-81.5)
[2025-02-24 12:09] LABS: Testosterone, % Free 2.52 % (1.50-4.20); Testosterone, Free 6.45 ng/dL (5.00-21.00)
== END | disposition home or self-care (01) ==
LOC: LAB 15:30
PROVIDERS: PCP Internal Medicine; Referring Provider Physician Assistant Medical; Visit Provider Physician Assistant Medical
DX: E34.9 Endocrine disorder, unspecified (principal); I48.91 Unspecified atrial fibrillation; R53.83 Other fatigue; I10 Essential (primary) hypertension; I97.89 Other postprocedural complications and disorders of the circulatory system, not elsewhere classified; Z95.1 Presence of aortocoronary bypass graft; E78.5 Hyperlipidemia, unspecified
CPT/HCPCS: 36415; 80053; 80061; 82652; 84402; 84403; 84443; 85025

== ENCOUNTER → 2025-04-29 | Outpatient (CLI) | payer MEDICARE, SELFPAY ==
[2025-04-29 10:06] VITALS: BMI 30.8
== END | disposition home or self-care (01) ==
PROVIDERS: PCP Internal Medicine; Referring Provider Physician Assistant Surgical; Visit Provider Physician Assistant Surgical
DX: M54.9 Dorsalgia, unspecified (principal)
CPT/HCPCS: 87077; 87086; 87088

== ENCOUNTER → 2025-05-10 | Outpatient (CLI) | payer MEDICARE, SELFPAY ==
[2025-04-29 10:06] VITALS: BMI 30.8
[2025-05-10 17:50] LABS: Hematocrit 48.5 % (40-54); Hemoglobin 16.2 g/dL (13.0-16.5); Immature Granulocytes Count 0.020 X10^3/uL (0.0-0.0); Mean Corp Hgb Conc 33.4 g/dL (32-36); Mean Corpuscular Volume 86.3 fL (80-94); Mean Platelet Vol. 10.3 fl (6.2-12.0); NRBC Flagged by Analyzer 0 % (0-5); Platelet Count 222 K/mm3 (150-450); RBC Distribution Width CV 13.1 % (11.6-14.6); RBC Distribution Width SD 40.7 fl (35.1-43.9); Red Blood Count 5.62 M/mm3 (4.6-6.2); White Blood Count 6.8 K/mm3 (4.4-11.0)
[2025-05-10 18:38] LABS: AST(SGOT) 20 U/L (<=37); Alanine Aminotransfer ALT/SGPT 16 U/L (<=46); Albumin, Serum 4.1 g/dL (3.4-4.8); Alkaline Phosphatase 81 U/L (40-129); Anion Gap 12 (5-15); BUN 20 mg/dL (4-19); BUN/Creat Ratio 12.0 RATIO (10-20); Calcium,Total 8.8 mg/dL (7.6-11.0); Carbon Dioxide 22.4 mmol/L (21.0-32.0); Chloride 103 mmol/L (98-108); Globulin 2.9 g/dL (2.2-4.2); Glucose 87 mg/dL (70-99); Potassium 4.2 mmol/L (3.3-5.1); Vitamin B12 501 pg/mL (180-914); Vitamin D,25 Hydroxy 43.5 ng/mL (30-100)
[2025-05-10 18:44] LABS: CRP < 3.00 mg/L (0.0-3.0)
[2025-05-14 12:09] LABS: Testosterone, % Free 2.41 % (1.50-4.20); Testosterone, Free 6.70 ng/dL (5.00-21.00)
== END | disposition home or self-care (01) ==
LOC: MTLAB 15:42
PROVIDERS: PCP Internal Medicine; Referring Provider Internal Medicine; Visit Provider Internal Medicine
DX: R53.83 Other fatigue (principal); E55.9 Vitamin D deficiency, unspecified; E34.9 Endocrine disorder, unspecified; R39.9 Unspecified symptoms and signs involving the genitourinary system
CPT/HCPCS: 36415; 80053; 82306; 82607; 84402; 84403; 84443; 85025; 85652; 86140; 87086; 87088

== ENCOUNTER → 2025-05-21 | Outpatient (CLI) | payer MEDICARE, SELFPAY ==
[2025-04-29 10:06] VITALS: BMI 30.8
[2025-05-21 10:38] LABS: PSA,Total- Diagnostic 0.03 ng/mL (0.00-4.00)
== END | disposition home or self-care (01) ==
LOC: MTLAB 08:08
PROVIDERS: PCP Internal Medicine; Referring Provider Internal Medicine; Visit Provider Internal Medicine
DX: C61 Malignant neoplasm of prostate (principal)
CPT/HCPCS: 36415; 84153